=== PATIENT | female | born 1950 | race Caucasian/White ===

== ENCOUNTER 2017-04-26 07:16 | Outpatient (RCR) | payer MEDICARE, OTHER, SELFPAY ==
[2017-04-26 09:06] LABS: International Normalized Ratio 2.4; Prothrombin Time (Protime)PT. 24.8 SECONDS (11.7-14.9)
== END 2017-04-26 07:30 | disposition home or self-care (01) ==
LOC: LAB 07:16
PROVIDERS: Family Provider Nurse Practitioner; PCP Nurse Practitioner; Visit Provider Nurse Practitioner
DX: Z79.01 Long term (current) use of anticoagulants (principal)
CPT/HCPCS: 36415; 85610

== ENCOUNTER 2017-05-31 09:56 | Outpatient (RCR) | payer MEDICARE, OTHER, SELFPAY ==
[2017-05-10 08:11] LABS: Prothrombin Time (Protime)PT. 39.8 SECONDS (11.7-14.9)
[2017-05-10 08:30] LABS: International Normalized Ratio 4.3
[2017-05-17 14:02] LABS: International Normalized Ratio 1.9; Prothrombin Time (Protime)PT. 20.9 SECONDS (11.7-14.9)
[2017-05-24 07:52] LABS: Prothrombin Time (Protime)PT. 42.4 SECONDS (11.7-14.9)
[2017-05-24 09:57] LABS: International Normalized Ratio 4.7
[2017-05-31 11:30] LABS: International Normalized Ratio 3.7
== END 2017-05-31 15:00 | disposition home or self-care (01) ==
LOC: LAB 09:56
PROVIDERS: Family Provider Nurse Practitioner; PCP Nurse Practitioner; Visit Provider Nurse Practitioner
DX: Z79.01 Long term (current) use of anticoagulants (principal)
CPT/HCPCS: 36415; 85610

== ENCOUNTER 2017-06-28 10:28 | Outpatient (RCR) | payer MEDICARE, OTHER, SELFPAY ==
[2017-06-04 09:13] LABS: International Normalized Ratio 2.9; Prothrombin Time (Protime)PT. 30.5 SECONDS (11.7-14.9)
[2017-06-14 12:10] LABS: International Normalized Ratio 2.6; Prothrombin Time (Protime)PT. 27.9 SECONDS (11.7-14.9)
[2017-06-28 11:47] LABS: International Normalized Ratio 1.7; Prothrombin Time (Protime)PT. 19.9 SECONDS (11.7-14.9)
== END 2017-06-28 11:00 | disposition home or self-care (01) ==
LOC: LAB 10:28
PROVIDERS: Family Provider Nurse Practitioner; PCP Nurse Practitioner; Visit Provider Nurse Practitioner
DX: Z79.01 Long term (current) use of anticoagulants (principal)
CPT/HCPCS: 36415; 85610

== ENCOUNTER 2017-07-26 09:42 | Outpatient (RCR) | payer MEDICARE, OTHER, SELFPAY ==
[2017-07-05 11:27] LABS: International Normalized Ratio 1.8; Prothrombin Time (Protime)PT. 20.7 SECONDS (11.7-14.9)
[2017-07-12 09:17] LABS: Prothrombin Time (Protime)PT. 22.8 SECONDS (11.7-14.9)
[2017-07-19 11:21] LABS: International Normalized Ratio 1.9
[2017-07-26 10:22] LABS: International Normalized Ratio 1.9; Prothrombin Time (Protime)PT. 22.2 SECONDS (11.7-14.9)
== END 2017-07-26 10:00 | disposition home or self-care (01) ==
LOC: LAB 09:42
PROVIDERS: Family Provider Nurse Practitioner; PCP Nurse Practitioner; Visit Provider Nurse Practitioner
DX: Z79.01 Long term (current) use of anticoagulants (principal)
CPT/HCPCS: 36415; 85610

== ENCOUNTER 2017-08-16 07:28 | Outpatient (RCR) | payer MEDICARE, OTHER, SELFPAY ==
[2017-08-09 10:14] LABS: International Normalized Ratio 1.5
[2017-08-16 09:12] LABS: Prothrombin Time (Protime)PT. 22.9 SECONDS (11.7-14.9)
== END 2017-08-16 08:00 | disposition home or self-care (01) ==
LOC: LAB 07:28
PROVIDERS: Family Provider Nurse Practitioner; PCP Nurse Practitioner; Visit Provider Nurse Practitioner
DX: Z79.01 Long term (current) use of anticoagulants (principal)
CPT/HCPCS: 36415; 85610

== ENCOUNTER → 2017-09-08 08:29 | Outpatient (CLI) | payer MEDICARE, OTHER, SELFPAY ==
--- NOTE | 2017-09-08 08:29 | DT_ITS ---
This patient was seen during an EMR downtime September 06, 2017 - September 13, 2017. This patient may have a combination of paper and electronic documentation or all paper documentation. All documentation is viewable within the e-chart portion of [employer] for each patient visit.
[2017-09-13 14:39] LABS: International Normalized Ratio 1.3; Prothrombin Time (Protime)PT. 16.4 SECONDS (11.7-14.9)
== END ==
PROVIDERS: Family Provider Nurse Practitioner; PCP Nurse Practitioner; Visit Provider Nurse Practitioner
DX: Z79.01 Long term (current) use of anticoagulants (principal)
CPT/HCPCS: 36415; 85610

== ENCOUNTER 2017-09-23 07:07 | Outpatient (RCR) | payer MEDICARE, OTHER, SELFPAY ==
[2017-09-16 08:16] LABS: International Normalized Ratio 1.1
[2017-09-23 08:36] LABS: International Normalized Ratio 2.4; Prothrombin Time (Protime)PT. 26.2 SECONDS (11.7-14.9)
== END 2017-09-23 09:00 | disposition home or self-care (01) ==
LOC: LAB 07:07
PROVIDERS: Family Provider Nurse Practitioner; PCP Nurse Practitioner; Visit Provider Nurse Practitioner
DX: Z79.01 Long term (current) use of anticoagulants (principal)
CPT/HCPCS: 36415; 85610

== ENCOUNTER → 2017-10-07 07:07 | Outpatient (CLI) | payer MEDICARE, OTHER, SELFPAY ==
--- NOTE | 2017-10-07 07:26 | BI_ITS ---
MAMMOGRAPHY - BILATERAL SCREENING REASON FOR EXAM: Female, 67 years old. Routine annual screening examination. PERTINENT HISTORY: Non-contributory. TECHNIQUE: Digital bilateral breast efren (3D mammographic acquisition) in the CC and MLO projections. 2-D mediolateral oblique (MLO) and craniocaudad (CC) views of both breasts were obtained. CAD: Full Field Digital Mammography with Computer Added Detection was performed. COMPARISON: Comparison is made with prior study dated May 04, 2016 and December 12, 2014. FINDINGS: Breast Composition: There are scattered areas of fibroglandular density. There are no dominant masses or suspicious calcifications. Stable appearance of the mastoid calcifications in both breasts. No other significant abnormalities are identified. There has been no significant change since the prior study. BI/SCREENING MAMM (CAD), BILAT IMPRESSION: Stable bilateral screening mammogram. Yearly follow-up mammogram recommended. (A) ASSESSMENT CATEGORY: BIRADS Category 2: Benign. A letter regarding these results will be sent to the patient by the facility within 30 days. Approximately 10% of breast cancers are not detected by mammography. A normal mammogram should not delay biopsy of a clinically suspicious abnormality. [id number] Electronically Signed: Cole Coronado MD at 11:23 EDT Tel [phone], Service support ,
== END ==
PROVIDERS: Family Provider Nurse Practitioner; PCP Nurse Practitioner; Visit Provider Obstetrics & Gynecology
DX: Z12.31 Encounter for screening mammogram for malignant neoplasm of breast (principal); Z79.01 Long term (current) use of anticoagulants
CPT/HCPCS: 36415; 77063; 77067; 85610

== ENCOUNTER 2017-10-28 12:49 | Outpatient (RCR) | payer MEDICARE, OTHER, SELFPAY ==
[2017-10-07 07:16] LABS: International Normalized Ratio 2.8; Prothrombin Time (Protime)PT. 29.4 SECONDS (11.7-14.9)
[2017-10-14 08:40] LABS: International Normalized Ratio 2.9; Prothrombin Time (Protime)PT. 30.1 SECONDS (11.7-14.9)
[2017-10-21 09:09] LABS: International Normalized Ratio 2.9; Prothrombin Time (Protime)PT. 30.2 SECONDS (11.7-14.9)
[2017-10-28 13:29] LABS: International Normalized Ratio 2.7; Prothrombin Time (Protime)PT. 28.7 SECONDS (11.7-14.9)
== END 2017-10-28 14:00 | disposition home or self-care (01) ==
LOC: LAB 12:49
PROVIDERS: Family Provider Nurse Practitioner; PCP Nurse Practitioner; Visit Provider Nurse Practitioner
DX: Z79.01 Long term (current) use of anticoagulants (principal)
CPT/HCPCS: 36415; 85610

== ENCOUNTER 2017-11-15 07:24 | Outpatient (RCR) | payer MEDICARE, OTHER, SELFPAY ==
[2017-11-15 08:36] LABS: International Normalized Ratio 2.8; Prothrombin Time (Protime)PT. 29.3 SECONDS (11.7-14.9)
== END 2017-11-15 09:00 | disposition home or self-care (01) ==
LOC: LAB 07:24
PROVIDERS: Family Provider Nurse Practitioner; PCP Nurse Practitioner; Visit Provider Nurse Practitioner
DX: Z79.01 Long term (current) use of anticoagulants (principal)
CPT/HCPCS: 36415; 85610

== ENCOUNTER 2017-12-17 09:49 | Outpatient (RCR) | payer MEDICARE, OTHER, SELFPAY ==
[2017-12-14 14:45] LABS: Prothrombin Time (Protime)PT. 31.3 SECONDS (11.7-14.9)
[2017-12-17 11:02] LABS: Absolute Lymphocyte Count 1.26 X10^3/ul (0.83-4.51); Absolute Neutrophil Count 1.6 X10^3/uL (2.0-7.7); Basophil# 0.05 X10^3/uL; Basophil% 1.5 % (0-1); Eosinophil# 0.05 X10^3/uL; Eosinophils% 1.5 % (0-5); Hemoglobin 14.2 g/dl (12.0-15.0); Lymphocyte # 1.26 X10^3/ul (4.0); Lymphocyte % 38.2 % (19-41); Mean Corp Hgb Conc 34.6 g/gl (32-36); Mean Corpuscular Hgb 32.5 pg (27.0-32.0); Mean Corpuscular Volume 93.8 fL (81-99); Mean Platelet Vol. 10.5 fl (6.2-12.0); Monocyte# 0.33 X10^3/uL; Neutrophil # 1.61 X10^3/uL (2.7-7.7); Neutrophil % 48.8 % (47-70); POSITIVE COUNT NO; POSITIVE DIFFERENTIAL NO; POSITIVE MORPHOLOGY NO; Platelet Count 207 K/mm3 (150-450); RBC Distribution Width CV 12.5 % (11.6-14.6); RBC Distribution Width SD 42.8 fl (35.1-43.9); Red Blood Count 4.37 M/mm3 (4.2-5.4); White Blood Count 3.3 K/mm3 (4.4-11.0)
[2017-12-17 11:33] LABS: ALB/GLOB Ratio 1.4 RATIO (0.9-2.4); AST(SGOT) 19 U/L (15-37); Alanine Aminotransfer ALT/SGPT 28 U/L (13-56); Albumin, Serum 4.2 g/dL (3.2-5.0); Alkaline Phosphatase 77 U/L (45-117); Anion Gap 9 (5-15); BUN 22 mg/dL (7-18); BUN/Creat Ratio 27.6 RATIO (10-20); Calcium,Total 8.9 mg/dL (8.5-10.1); Chloride 104 mmol/L (98-107); EST Glomerular Filtration Rate 76 mL/min (>60); Est Glom Filt Rate - Afr Amer 92 mL/min (>60); Globulin 2.9 g/dL (2.2-4.2); Glucose 77 mg/dL (74-106); Protein, Total 7.1 g/dL (6.4-8.2); Sodium Level 141 mmol/L (136-145)
== END 2018-01-02 12:03 | disposition home or self-care (01) ==
LOC: LAB 09:49
PROVIDERS: Family Provider Nurse Practitioner; PCP Nurse Practitioner; Visit Provider Nurse Practitioner
DX: Z79.01 Long term (current) use of anticoagulants (principal); Z13.220 Encounter for screening for lipoid disorders
CPT/HCPCS: 36415; 80053; 85025; 85610

== ENCOUNTER → 2017-12-23 08:42 | Outpatient (CLI) | payer MEDICARE, OTHER, SELFPAY ==
--- NOTE | 2017-12-23 08:49 | BD_ITS ---
STUDY: DUAL ENERGY X-RAY ABSORPTIOMETRY / DXA REASON FOR EXAM: Female, 67 years old. The patient is postmenopausal. Loss of height. TECHNIQUE: Bone Mineral Density (BMD) measurements of lumbar spine and bilateral hips were obtained. COMPARISON: Comparison is made with prior study dated March 05, 2011. FINDINGS: Lumbar Spine (L1-L4): g/cm2 (0.937) / T-score (-2.0) / Z-score (-0.4) Findings are suggestive of osteopenia with a moderate fracture risk. Left Femur Total: g/cm2 (0.626) / T-score (-3.0) / Z-score (-1.7) Left Femoral Neck: g/cm2 (0.592) / T-score (-3.2) / Z-score (-1.6) Right Femur Total: g/cm2 (0.682) / T-score (-2.6) / Z-score (-1.2) Right Femoral Neck: g/cm2 (0.665) / T-score (-2.7) / Z-score (-1.1) The T-Scores on the most recent prior examination were: Lumbar Spine (L1-L4): There has been worsening of bone density since the previous examination. Left Femur Total: which represents a worsening of 13.3%. Right Femur Total: which represents a worsening of 7.6%. BD/Dexa Bone Density Study IMPRESSION: The patient is considered osteoporotic as outlined below according to World [employer] Organization (WHO) criteria with a high fracture risk. There has been worsening of bone density since the previous examination. Reference Information: The T-score is the number of standard deviations above or below the standard which is normal for young adults at their peak bone mineral density. The World Health Organization (WHO) interprets the T-scores as follows: Above -1 Normal bone density Between -1 and -2.5 Osteopenia Equal to / or below -2.5 Osteoporosis As a practical clinical guideline, osteopenia may be graded as follows: Mild -1 through -1.5 Moderate -1.6 through -2.0 Severe -2.1 through -2.4 The Z-score is the number of standard deviations above or below age-matched controls. A Z-score of less than -1.5 would be considered abnormal. References: 1. NIH Osteoporosis and Related Bone Diseases http://www.osteo.org 2. International Society for Clinical Densitometry http://www.iscd.org 3. National Osteoporosis Foundation http://www.nof.org Electronically Signed: Cole Coronado MD at 8:50 EDT Tel [phone], Service support ,
== END ==
PROVIDERS: Family Provider Nurse Practitioner; PCP Nurse Practitioner; Visit Provider Nurse Practitioner
DX: Z78.0 Asymptomatic menopausal state (principal); M81.0 Age-related osteoporosis without current pathological fracture
CPT/HCPCS: 77080

== ENCOUNTER → 2018-01-14 07:46 | Outpatient (CLI) | payer MEDICARE, OTHER, SELFPAY ==
[2018-01-14 08:54] LABS: Absolute Lymphocyte Count 1.49 X10^3/ul (0.83-4.51); Absolute Neutrophil Count 1.3 X10^3/uL (2.0-7.7); Basophil# 0.07 X10^3/uL; Basophil% 2.1 % (0-1); Eosinophil# 0.14 X10^3/uL; Eosinophils% 4.2 % (0-5); Hematocrit 40.1 % (37-47); Hemoglobin 14.2 g/dl (12.0-15.0); Lymphocyte # 1.49 X10^3/ul (4.0); Mean Corp Hgb Conc 35.4 g/gl (32-36); Mean Corpuscular Hgb 33.4 pg (27.0-32.0); Mean Corpuscular Volume 94.4 fL (81-99); Mean Platelet Vol. 10.7 fl (6.2-12.0); Monocyte# 0.33 X10^3/uL; Neutrophil # 1.28 X10^3/uL (2.7-7.7); Neutrophil % 38.7 % (47-70); Platelet Count 214 K/mm3 (150-450); RBC Distribution Width CV 12.3 % (11.6-14.6); RBC Distribution Width SD 41.8 fl (35.1-43.9); Red Blood Count 4.25 M/mm3 (4.2-5.4); White Blood Count 3.3 K/mm3 (4.4-11.0)
[2018-01-14 08:55] LABS: POSITIVE COUNT NO; POSITIVE DIFFERENTIAL NO; POSITIVE MORPHOLOGY NO
[2018-01-14 09:20] LABS: Bilirubin, Direct 0.18 mg/dL (0.00-0.30)
== END ==
PROVIDERS: Family Provider Nurse Practitioner; PCP Nurse Practitioner; Referring Provider Nurse Practitioner; Visit Provider Nurse Practitioner
DX: Z51.81 Encounter for therapeutic drug level monitoring (principal); Z79.01 Long term (current) use of anticoagulants; Z13.220 Encounter for screening for lipoid disorders
CPT/HCPCS: 36415; 82247; 82248; 85025

== ENCOUNTER 2018-02-01 07:17 | Outpatient (RCR) | payer MEDICARE, OTHER, SELFPAY ==
[2018-01-04 13:30] LABS: International Normalized Ratio 2.6; Prothrombin Time (Protime)PT. 27.6 SECONDS (11.7-14.9)
[2018-02-01 08:06] LABS: International Normalized Ratio 2.7; Prothrombin Time (Protime)PT. 28.9 SECONDS (11.7-14.9)
== END 2018-02-01 09:00 | disposition home or self-care (01) ==
LOC: LAB 07:17
PROVIDERS: Family Provider Nurse Practitioner; PCP Nurse Practitioner; Referring Provider Nurse Practitioner; Visit Provider Nurse Practitioner
DX: Z79.01 Long term (current) use of anticoagulants (principal)
CPT/HCPCS: 36415; 85610

== ENCOUNTER → 2018-02-07 14:10 | Outpatient (CLI) | payer MEDICARE, OTHER, SELFPAY ==
[2018-02-09 16:08] LABS: PROEL- A/G Ratio 1.6 (0.7-1.7); PROEL- Albumin 3.8 g/dL (2.9-4.4); PROEL- Alpha-1 Globulin 0.3 g/dL (0.0-0.4); PROEL- Alpha-2 Globulin 0.6 g/dL (0.4-1.0); PROEL- Beta Globulin 1.1 g/dL (0.7-1.3); PROEL- Gamma Globulin 0.5 g/dL (0.4-1.8); PROEL- Globulin, Total 2.4 g/dL (2.2-3.9); PROEL- TOTAL PROTEIN 6.2 g/dL (6.0-8.5); PROELU- Albumin, Urine 39.4 % (.); PROELU- Alpha-1-Globulin,Ur 2.3 % (.); PROELU- Alpha-2-Globulin,Ur 9.5 % (.); PROELU- Beta Globulin, Ur 33.2 % (.); PROELU- Gamma Globulin, Ur 15.5 % (.); Total Protein, Ur 8.3 mg/dL (Not Estab.)
[2018-02-10 12:13] LABS: ANTINUCLEAR ANTIBODIES DIRECT Negative (Negative)
== END ==
PROVIDERS: Family Provider Nurse Practitioner; PCP Nurse Practitioner; Referring Provider Nurse Practitioner; Visit Provider Nurse Practitioner
DX: D72.819 Decreased white blood cell count, unspecified (principal)
CPT/HCPCS: 36415; 84165; 84166; 86038

== ENCOUNTER → 2018-02-15 13:43 | Outpatient (CLI) | payer MEDICARE, OTHER, SELFPAY ==
--- NOTE | 2018-02-15 13:46 | VDLE_ITS ---
Reason For Study: pain RIGHT LEFT CFV is compressible, spontaneous, phasic, GSV is normal. competent and demonstrates normal CFV is compressible, spontaneous, phasic, augmentation. competent, and demonstrates normal augmentation. FV is compressible, spontaneous, phasic, competent and demonstrates normal augmentation. POP V is compressible, spontaneous, phasic, competent and demonstrates normal augmentation. T/P Trunk is compressible. PTV is compressible. LT PerV is compressible. <> Interpretation Summary Deep veins of the left lower extremity are patent and compressible segmentally. There is no evidence of left lower extremity deep vein thrombosis. Valvular competence appears intact within the proximal deep venous system on the left . The left greater saphenous vein appears patent and compressible segmentally. Ordering Physician: KRISTIAN Cruz Performed By: Nigel Luu RVT
== END ==
PROVIDERS: Family Provider Nurse Practitioner; PCP Nurse Practitioner; Referring Provider Nurse Practitioner Gerontology; Visit Provider Nurse Practitioner Gerontology
DX: M79.605 Pain in left leg (principal)
CPT/HCPCS: 93971

== ENCOUNTER 2018-03-02 11:32 | Outpatient (RCR) | payer MEDICARE, OTHER, SELFPAY ==
[2018-02-22 15:37] LABS: Prothrombin Time (Protime)PT. 31.4 SECONDS (11.7-14.9)
[2018-03-02 13:49] LABS: International Normalized Ratio 2.7; Prothrombin Time (Protime)PT. 29.2 SECONDS (11.7-14.9)
== END 2018-03-04 11:10 | disposition home or self-care (01) ==
LOC: LAB 11:32
PROVIDERS: Family Provider Nurse Practitioner; PCP Nurse Practitioner; Referring Provider Nurse Practitioner; Visit Provider Nurse Practitioner
DX: Z79.01 Long term (current) use of anticoagulants (principal)
CPT/HCPCS: 36415; 85610

== ENCOUNTER 2018-03-23 10:27 | Outpatient (RCR) | payer MEDICARE, OTHER, SELFPAY ==
[2018-03-23 12:03] LABS: International Normalized Ratio 2.9; Prothrombin Time (Protime)PT. 30.5 SECONDS (11.7-14.9)
--- OUTSIDE RECORDS SUMMARY | 2018-06-24 14:16 | XMS RPT_ITS | Continuity of Care Document ---
:1950 Author Organization [facility] Address [facility] [address] [place] [address] Phone Care Team Providers Name Role Phone Minalcuca SAMSON Selam Latif Unavailable Dr. Meseret Santana MD Unavailable Aida Keen LPN Unavailable Unavailable Paola Lara Unavailable Unavailable Es Huggins Unavailable Unavailable Sigrid Mobley Unavailable Unavailable Unavailable Unavailable Problems Name Dates Details Abortions/Miscarriages Comments: 1. Status: Active Annual Medicare Phyiscal WITHOUT abnormal findings (Renamed from Encounter for general adult medical examination without abnormal findings) (Z00.00, V70.9) Status: Active Anticoagulated on Coumadin (Z51.81, V58.83) Status: Active BMI 22.0-22.9, adult (Z68.22, V85.1) Status: Active Cough (R05, 786.2) Comments: improved with aerosol Status: Active Deliveries (Parity) Comments: 3. Status: Active Encounter for annual general medical examination with abnormal findings in adult (Z00.01, V70.0) Status: Active Encounter for Medicare annual wellness exam (Z00.00, V70.0) Status: Active Encounter for screening for lipid disorder (Z13.220, V77.91) Status: Active FAMILY HISTORY OF ISCHEMIC HEART DISEASE (Z82.49, V17.3) Status: Active History of DVT (deep vein thrombosis) (Z86.718, V12.51) Status: Active Left leg pain (M79.605, 729.5) Comments: DVT vs Nerve related ? Status: Active Leukopenia (D72.819, 288.50) Comments: will follow q 3months and referral if needed Status: Active Liver cyst (K76.89, 573.8) Comments: from CT on 08-19-15 recommend US in [address] Status: Active jail (current) use of anticoagulants (Renamed from author current use of anticoagulant therapy) (Z79.01, V58.61) Status: Active Nonsmoker (Z78.9, V49.89) Status: Active Osteoporosis (M81.0, 733.00) Comments: doesnt want followup density Status: Active Postmenopausal (Renamed from Postmenopausal status) (Z78.0, V49.81) Comments: Has been on fosamax in past, self Dced , consider Prolia based on results Status: Active PostMenopausal Bleeding (Renamed from Hemorrhage, postmenopausal) (N95.0, 627.1) Comments: had blood on pelvic exam with fluid in endometrial canal/ovarian cyts Status: Active Pregnancies () Comments: 4. Status: Active Screening for breast cancer (Z12.39, V76.10) Status: Active Unspecified Diagnosis Status: Active Unspecified Diagnosis Status: Active Medications Name Dates Details Acyclovir 400 MG Oral Tablet 2 (two) Tablet daily for 0 days Quantity: 180 {Tablet} Refills: 3 Ordered:13-Sep-2017 Selam Blair CNP, CNP Brenda Start : 13-Sep-2017 Active Calcium 1200 0804-1510 MG-UNIT Oral Tablet Chewable daily (3373-0113 MG-UNIT) Active Cinnamon 500 MG Oral Capsule 2caps qd (500 MG) Active Coumadin 1 MG Oral Tablet 1 (one) Tablet qd as directed for 90 days Quantity: 90 {Tablet} Refills: 3 Ordered:14-Sep-2017 Selam Blair CNP, CNP, Mary E Start : 14-Sep-2017 Active Coumadin 5 MG Oral Tablet 1 (one) Tablet Tablet qd as directed for 0 days Quantity: 90 {Tablet} Refills: 3 Ordered:13-Dec-2017 Selam Blair CNP, CNP Brenda Start : 13-Dec-2017 Active DICYCLOMINE HCL, 20MG (Oral Tablet) 1 tab Tablet q 4hrs, prn for 0 days Quantity: 30 {Tablet} Refills: 1 Ordered:18-Dec-2014 So Bailey Start : 08-Aug-2013 Active Lasix 20 MG Oral Tablet 1 tab Tablet qd, prn for swelling for 0 days Quantity: 30 {Tablet} Refills: 1 Ordered:17-Dec-2017 Johnnie PRIMARY CARE MD, Selam Taveras PRIMARY CARE MD, Selam Latif Start : 17-Dec-2017 Active Latanoprost 0.005 % Ophthalmic Solution one drop to both eyes qhs (0.005 %) Active MILK THISTLE, 500MG (Oral Capsule) 2 (two) Capsule qd for 0 days Quantity: 60 {Capsule} Refills: 0 Ordered:17-Sep-2014 So Bailey Start : 14-Oct-2012 Active PROBIOTIC (Oral Capsule) 2 (two) Capsule qd for 0 days Quantity: 60 {Capsule} Refills: 0 Ordered:21-Oct-2012 Fatimah Mccray MD Start : 14-Oct-2012 Active VITAMIN B COMPLEX (Oral Tablet) 1 Tablet qd for 0 days Quantity: 30 {Tablet} Refills: 0 Ordered:18-Dec-2014 So Bailey Start : 14-Oct-2012 Active VITAMIN C, 1000MG (Oral Tablet) 3 (three) Tablet qd for 0 days Quantity: 90 {Tablet} Refills: 0 Ordered:21-Oct-2012 Fatimah Mccray MD Start : 14-Oct-2012 Active Comments:Buffered VITAMIN D3, 2000UNIT (Oral Capsule) 1 cap qd (2000 UNIT) Active ASPIRIN, 325MG (Oral Tablet) 1 tab qd (325 MG) Inactive Augmentin 875-125 MG Oral Tablet 1 (one) Tablet bid for 14 days Quantity: 28 {Tablet} Refills: 0 Ordered:13-Oct-2016 JENNIFER Pearce Start : 13-Oct-2016 End : 27-Oct-2016 Inactive Bleph-10 10 % Ophthalmic Solution uad Metric Drop 2 drops q 4 hours for 10 days to affected eye for 10 days Refills: 0 Ordered:16-Oct-2016 Fatimah Mccray MD Start : 16-Oct-2016 End : 26-Oct-2016 Inactive CEFTIN, 500MG (Oral Tablet) 1 Tablet bid for 0 days Quantity: 60 {Tablet} Refills: 0 Ordered:12-Apr-2013 Patrice Smallwood Start : 14-Oct-2012 End : 12-Apr-2013 Inactive CIPROFLOXACIN HCL, 500MG (Oral Tablet) 1 (one) Tablet bid [id number] for 10 days Quantity: 20 {Tablet} Refills: 0 Ordered:15-Sep-2013 Sherin Baileynifer Start : 15-Sep-2013 End : 25-Sep-2013 Inactive CLARITHROMYCIN, 500MG (Oral Tablet) 1 (one) Tablet qd for 0 days Quantity: 30 {Tablet} Refills: 0 Ordered:12-Apr-2013 Patrice Smallwood Start : 07-Feb-2013 End : 12-Apr-2013 Inactive Cod Liver Oil Oral Capsule 3-4 Capsule qd for 0 days Quantity: 90 {Capsule} Refills: 0 Ordered:15-Dec-2016 Selam Blair CNP, CNP Brenda Start : 14-Oct-2012 End : 15-Dec-2016 Inactive DOXYCYCLINE HYCLATE, 100MG (Oral Capsule) 1 Capsule bid for 0 days Quantity: 42 {Capsule} Refills: 0 Ordered:14-Oct-2012 JENNIFER Pearce Start : 30-Aug-2012 End : 14-Oct-2012 Inactive Fosamax 70 MG Oral Tablet 1 tab Tablet once a week for 30 days Quantity: 4 {Tablet} Refills: 3 Ordered:15-Dec-2016 Selam Blair CNP, CNP Brenda Start : 04-Jul-2012 End : 15-Dec-2016 Inactive Hydrocodone-Acetaminophen 5-325 MG Oral Tablet 1 (one) Tablet Tablet 1-2 every 6 hours prn for 0 days Quantity: 30 {Tablet} Refills: 0 Ordered:15-Dec-2016 Selam Blair CNP, CNP Brenda Start : 05-Mar-2014 End : 15-Dec-2016 Inactive Comments:thirty Magnesium Oxide 400 MG Oral Tablet 4 Tablet qd for 30 days Quantity: 90 {Tablet} Refills: 0 Ordered:29-Jun-2016 Selam Blair CNP, CNP Brenda Start : 29-Jun-2016 End : 29-Jul-2016 Inactive Mobic 15 MG Oral Tablet 1 (one) Tablet Tablet daily for 0 days Quantity: 14 {Tablet} Refills: 0 Ordered:15-Dec-2016 Selam Blair CNP, CNP Brenda Start : 05-Mar-2014 End : 15-Dec-2016 Inactive MULTIVITAMIN (PO Tab) 1 (one) daily Inactive PredniSONE 10 MG Oral Tablet 1 (one) Tablet bid for 2 days Quantity: 4 {Tablet} Refills: 0 Ordered:02-Jun-2017 Johnnie SAMSON, Selam ACEnatalya SAMSON, Selam Latif Start : 02-Jun-2017 End : 04-Jun-2017 Inactive Comments:with food ProAir HFA 108 (90 Base) MCG/ACT Inhalation Aerosol Solution 2 (two) Puff Puff tid prn for 0 days Quantity: 1 {Inhaler} Refills: 0 Ordered:14-Feb-2018 Sigrid Mobley Start : 02-Jun-2017 End : 14-Feb-2018 Inactive TAURINE, 500MG (Oral Capsule) 2 caps qd (500 MG) Inactive Tessalon Perles 100 MG Oral Capsule 1 (one) Capsule tid prn for cough for 0 days Quantity: 30 {Capsule} Refills: 1 Ordered:14-Feb-2018 Sigrid Mobley Start : 02-Jun-2017 End : 14-Feb-2018 Inactive Zithromax Z-Fantasma 250 MG Oral Tablet 1 (one) Tablet TAD for 0 days Quantity: 1 {Package} Refills: 0 Ordered:07-Jun-2017 Sigrid Mobley Start : 02-Jun-2017 End : 07-Jun-2017 Inactive Baking Soda 1 teaspoon in water qd End : 02-Jun-2017 Discontinued BENTONITE (Powder) 1 tbsp bid End : 08-Aug-2013 Discontinued CALCIUM, 500MG (Oral Tablet) 1 tab tid (500 MG) End : 18-Dec-2014 Discontinued FISH OIL CONCENTRATE, 1000MG (Oral Capsule) 3 caps qd (1000 MG) End : 21-Oct-2012 Discontinued SYMBICORT, 160-4.5MCG/ACT (Inhalation Aerosol) 1 puff po Aerosol bid for 30 days Quantity: 1 {Aerosol} Refills: 3 Ordered:21-Oct-2012 Fast DO, Helen A Start : 21-Oct-2012 End : 21-Oct-2012 Discontinued Teasel Root Extract 2-3 drops qd End : 17-Sep-2014 Discontinued TINDAMAX, 500MG (Oral Tablet) 2 tabs 3 days a week (500 MG) End : 17-Sep-2014 Discontinued VALTREX, 1GM (Oral Tablet) 1 tab bid, prn for cold sores (1 GM) End : 08-Aug-2013 Discontinued Allergies and Adverse Reactions Name Dates Details No Known Drug Allergies (Allergy) Onset: 11-Mar-2012 Status: Active Past Medical History Name Dates Details ACUTE CYSTITIS (N30.00, 595.0) Status: Resolved as of 13-Feb-2014 Allergic rhinitis (J30.9, 477.9) Status: Inactive as of 15-Dec-2016 Asthma (J45.909, 493.90) Status: Inactive as of 15-Dec-2016 Bartonella infection (088.0) Status: Resolved as of 17-Sep-2014 Benign Essential Hypertension (I10, 401.1) Status: Inactive as of 15-Dec-2016 BMI 21.0-21.9, adult (Z68.21, V85.1) Status: Inactive as of 02-Jun-2017 BMI 21.0-21.9, adult (Z68.21, V85.1) Status: Inactive as of 15-Dec-2016 BMI 21.0-21.9, adult (Z68.21, V85.1) Status: Inactive as of 14-Feb-2018 BMI 22.0-22.9, adult (Z68.22, V85.1) Status: Inactive as of 17-Dec-2017 Body mass index (BMI) of 20 to 24 (V85.1) Status: Inactive as of 15-Dec-2016 Breast cancer screening (Z12.39, V76.10) Status: Inactive as of 05-Mar-2014 Bronchospasm (J98.01, 519.11) Status: Inactive as of 17-Dec-2017 bullseye rash- tick bite /concern for lyme disease Status: Inactive as of 05-Mar-2014 Chest tightness (R07.89, 786.59) Status: Inactive as of 17-Dec-2017 Cough (R05, 786.2) Status: Inactive as of 15-Dec-2016 Cough (R05, 786.2) Status: Inactive as of 17-Dec-2017 DVT (deep venous thrombosis) (I82.409, 453.40) Status: Inactive as of 05-Mar-2014 DVT (deep venous thrombosis) (I82.409, 453.40) Comments: hold 3 days prior Status: Resolved as of 15-Dec-2016 Edema Comments: off and on puffiness Status: Inactive as of 15-Dec-2016 Fatigue (R53.83, 780.79) Status: Resolved as of 13-Feb-2014 Flu-like symptoms (R68.89, 780.99) Status: Inactive as of 17-Dec-2017 Herpes Simplex Comments: cold sores Status: Inactive as of 17-Dec-2017 Hyperlipidemia (E78.5, 272.4) Status: Resolved as of 15-Dec-2016 Insect bite (919.4) Status: Resolved as of 21-Oct-2012 Irritable Bowel Syndrome (K58.9, 564.1) Comments: chronic stable-continue present regimen, uses miralax prnSaw Dr Arzola and Mehnaz Status: Resolved as of 15-Dec-2016 Need for prophylactic vaccination and inoculation against influenza (Z23, V04.81) Status: Inactive as of 05-Mar-2014 Osteopenia (M85.80, 733.90) Status: Inactive as of 11-Mar-2012 [place]o [place] Ol[place]o eye (H10.029, 372.03) Status: Inactive as of 15-Dec-2016 Post-nasal drainage (R09.82, 473.9) Status: Inactive as of 17-Dec-2017 Pre-operative examination (Z01.818, V72.84) Status: Inactive as of 12-Nov-2014 screening Status: Inactive as of 05-Mar-2014 Shoulder pain, left (M25.512, 719.41) Comments: not able to take cortisone injection. willhave to do pain meds PT and shortterm nsaids. aware of risk of bleeding ulcer Status: Inactive as of 15-Dec-2016 Sinusitis (J32.9, 473.9) Status: Inactive as of 15-Dec-2016 Urinary frequency (R35.0, 788.41) Status: Resolved as of 21-Oct-2012 Vaccine for ymoigzeamv-jimohgl-trxwpjqtl with poliomyelitis (Z23, V06.3) Status: Inactive as of 21-Oct-2012 Procedures Procedure Dates Details Appendectomy Completed D&C Completed Comments: 2014- shriner Tonsillectomy Completed Tubal Ligation Completed Date Value Details 16-Feb-2018 Venous Duplex Lower Extremity Result: Comments: See Note; NOTES: [facility] Cardiovascular Services [address] [place] [address] Venous Duplex US, Unilateral 02/15/18 1350 MR#: [id number] Acct: [id number] Name: YAHAIRA ENG Rep #: [id number] : 1950 67 From: Tony Valentino MD Attending Dr: KRISTIAN Cruz Status: REG CLI Ordering Dr: Sigrid MobleyC Date: 02/15/18 Location: [facility] Sex: F C Admitte d: Reason For Study: pain RIGHT LEFT CFV is compressible, spontaneous, phasic, GSV is normal. competent and demonstrates normal CFV is compressible, spontaneous, phasic, augmentation. competent, an d demonstrates normal augmentation. FV is compressible, spontaneous, phasic, competent and demonstrates normal augmentation. POP V is compressible, spontaneous, phasic, competent and demonstrates normal augmentation. T/P Trunk is compressible. PTV is compressible. LT PerV is compressible. <> Interpretation Summary Deep veins of the left lower extremity are patent and compressible segm entally. There is no evidence of left lower extremity deep vein thrombosis. Valvular competence appears intact within the proximal deep venous system on the left . The left greater saphenous vein appear s patent and compressible segmentally. Ordering Physician: KRISTIAN Cruz Performed By: Nigel Mcguire RVT 02/16/18812 Date Tony Valentino MD CC: Selam Blair NP; POLICY OFFICER-C Annie Mobley Date Dictated: 02/15/18 1350 Date Transcribed: 02/16/18812 Saturation Equipment Operator: Signed 23-Dec-2017 Dexa Bone Density Study Result: Comments: See Note; NOTES: [facility] Imaging Services [address] [place] [address] Dexa Bone Density Study MR#: [id number] Acct: [id number] Name: YAHAIRA BRYANT Rep #: [id number] : 1950 F 67 From: Cole Coronado MD PCP: Selam Blair NP Status: REG CLI Study: Dexa Bone Density Study Date of Exam: 12/23/17 Exam# [id number] Ordering Dr: Selam Blair STUDY: DUAL ENERGY X-RAY ABSORPTIOMETRY / DXA REASON FOR EXAM: Female, 67 years old. The patient is postmenopausal. Loss of height. TECHNIQUE: Bone Mineral Density (BMD) measurements of lumbar spine and bilateral hips were obtained. COMPARISON: Comparison is made with prior study dated March 05, 2011. FINDINGS: Lumbar Spine (L1-L4): g/cm2 (0.937) / T-score (-2.0) / Z-sco re (-0.4) Findings are suggestive of osteopenia with a moderate fracture risk. Left Femur Total: g/cm2 (0.626) / T-score (-3.0) / Z-score (-1.7) Left Femoral Neck: g/cm2 (0.592) / T-score (-3.2) / Z-sc ore (-1.6) Right Femur Total: g/cm2 (0.682) / T-score (-2.6) / Z-score (-1.2) Right Femoral Neck: g/cm2 (0.665) / T-score (-2.7) / Z-score (-1.1) The T- Scores on the most recent prior examination were: Lumbar Spine (L1-L4): There has been worsening of bone density since the previous examination. Left Femur Total: which represents a worsening of 13.3%. Right Femur Total: which represents a worsening of 7.6%. BD/Dexa Bone Density Study IMPRESSION: The patient is considered osteoporotic as outlined below according to World Yossi Organization ( WHO) criteria with a high fracture risk. There has been worsening of bone density since the previous examination. Reference Information: The T-score is the number o f standard deviations above or below the standard which is normal for young adults at their peak bone mineral density. The World Health Organization (WHO) interprets the T-scores as follows: Above -1 N ormal bone density Between -1 and -2.5 Osteopenia Equal to / or below -2.5 Osteoporosis As a practical clinical guideline, osteopenia may be graded as follows: Mild - 1 through -1.5 Moderate -1.6 throug h -2.0 Severe -2.1 through -2.4 The Z-score is the number of standard deviations above or below age-matched controls. A Z-score of less than -1.5 would be considered abnormal. References: 1. NIH Osteo porosis and Related Bone Diseases http://www.osteo.org 2. International Society for Clinical Densitometry http://www.iscd.org 3. National Osteoporosis Foundation http://www.nof.org Electronically Joycelyn d: Cole Coronado MD at 8:50 EDT Tel [phone], Service support , CC: Selam Blair NP Saturation Equipment Operator: Signed 07-Oct-2017 SCREENING MAMM (CAD), BILAT Result: Comments: See Note; NOTES: [facility] Imaging Services [address] [place] [address] SCREENING MAMM (CAD), BILAT MR#: [id number] Acct: [id number] Name: YAHAIRA BRYANT Rep #: [id number] : 1950 F 67 From: Cole Coronado MD PCP: Selam Blair NP Status: [facility] CL Study: SCREENING MAMM (CAD), BILAT Date of Exam: 10/07/17 Exam# [id number] Ordering Dr: Aliza Santana MD MAMMOGRAPHY - BILATERAL SCREENING REASON FOR EXAM: Female, 67 years old. Routine annual screening examination. PERTINENT HISTORY: Non-contributory. TECHNIQUE: Digital bilateral breast efren (3D mammo graphic acquisition) in the CC and MLO projections. 2-D mediolateral oblique (MLO) and craniocaudad (CC) views of both breasts were obtained. CAD: Full Field Digital Mammography with Computer Added Dete ction was performed. COMPARISON: Comparison is made with prior study dated May 04, 2016 and December 12, 2014. FINDINGS: Breast Composition: There are scattered areas of fibroglandular density. There are no dominant masses or suspicious calcifications. Stable appearance of the mastoid calcifications in both breasts. No other significant abnormalities are rach ntified. There has been no significant change since the prior study. BI/SCREENING MAMM (CAD), BILAT IMPRESSION: Stable bilateral screening mammog cindy. Yearly follow-up mammogram recommended. (A) ASSESSMENT CATEGORY: BIRADS Category 2: Benign. A letter regarding these results will be sent to the patient by the facility within 30 days. Approximately 10% of breast cancers are not detected by mammography. A normal mammogram should not delay biopsy of a clinically suspicious abnormality. [id number] Electronically Signed: Cole Coronado MD at 11:23 EDT Tel [phone], Service support , CC: Selam Blair NP; Aliza Santana MD Saturation Equipment Operator: Signed 23-Sep-2017 Downtime Report Result: Comments: See Note; NOTES: [facility] Medical Records Department [address] [place] [address] Downtime Report MR#: [id number] Acct: [id number] Name: YAHAIRA BRYANT R Rep #: [id number] : 1950 67 From: Jered Kumar PCP: Selam Blair NP Status: REG CLI This patient was seen during an EMR downtime September 06, 2017 - September 13, 2017. This patient may have a combination of p aper and electronic documentation or all paper documentation. All documentation is viewable within the e-chart portion of [employer] for each patient visit. 16-Dec-2016 Liver Result: Comments: See Note; NOTES: [facility] Imaging Services [address] [place] [address] Liver MR#: [id number] Acct: [id number] Name: YAHAIRA BRYANT R Rep #: [id number] : 1950 F 66 From: Jose Mcghee MD PCP: Selam Blair Status: REG CLI Study: Liver Date of Exam: 12/16/16 Exam# [id number] Ordering Dr: Selam Blair STUDY: ABDOMINAL ULTRASOUND - RIGHT UPPER QUADRANT R KEV FOR VISIT: Female, 66 years old. Liver cysts noted on prior CT. TECHNIQUE: Ultrasound evaluation of the right upper quadrant was performed with real-time and static carlos-scale imaging. TECHNICAL QUALITY: Adequate. COMPARISON: None. FINDINGS: Liver: The liver measures 11.5 cm. There is normal echogenicity of the liver. The bile ducts are within normal limi ts. There is hepatic color flow. The direction of portal flow is hepatopetal. There is no demonstrated mass lesion. Subcentimeter cyst reported on prior CT study of 08/19/2015 are not identified on this ultrasound. Gallbladder: Normal distended gallbladder. The gallbladder wall measures 2.1 mm. There is a negative sonographic Danielle's sign. There is no pericholecystic fluid. There is a gallbladder cayden yp measuring 5 x 6 x 5 mm. Common Bile Duct (C.B.D.): The common bile duct measures 3.4 mm. Pancreas: Normal size of the head, body and tail of the pancreas. There is normal echogenicity of the pancre as. There is no demonstrated pancreatic mass or cyst. Right Kidney: Normal size of the right kidney. The right kidney measures 10.5 x 4.5 x 5.3 cm. Normal renal cortex. The right cortex measures 1.5 cm . There is no demonstrated renal mass or cyst. There is no right hydronephrosis. There are 2 highly echogenic foci of the upper pole of the right kidney each measuring 3 mm, suggestive of nephrolithiasi s. US/Liver IMPRESSION: The liver appears within normal limits. Subcentimeter cysts reported on prior CT study are not appreciated on this ultras onographic study. 5 x 6 x 5 mm gallbladder polyp. Nonobstructing right nephrolithiasis. Electronically Signed: Jose Mcghee MD at 16:28 EDT , Service support [phone], CC: Selam Blair Saturation Equipment Operator: Signed 21-Dec-2014 Aorta Result: Comments: See Note; NOTES: [facility] Imaging Services [address] [place] [address] Ultrasound Report MR#: [id number] Acct: [id number] Name: YAHAIRA BRYANT Rep #: [id number] : 1950 F 64 From: Cole Coronado MD PCP: Helen Barnes DO Status: REG CLI Study: Aorta Date of Exam: 12/21/14 Exam# [id number] Ordering Dr: Helen Barnes DO PROCEDURES: ULTRASOUN D AORTA REASON FOR EXAM: Female, 64 years old. Screening for abdominal aortic aneurysm. TECHNIQUE: Ultrasound evaluation of the aorta was performed with real-time and static carlos-scale imaging. COMPARISON: None. FINDINGS: There is no elongation or tortuosity of the abdominal aorta. Aorta measures: Proximal 2.5 cm. Middle 1.5 cm. Distal 1.3 cm. Aorta m easure transversely: Proximal 2.1 cm. Middle 1.4 cm. Distal 1.3 cm. Right iliac artery measures: 0.8 cm. Right iliac artery measure transversely: 0.7 cm. Left iliac artery measures: 0.8 cm. Left iliac artery measure transversely: 0.7 cm. There is no demonstrated aneurysm.. IMPRESSION: Normal abdominal aorta. Electronically Signed: Cole Coronado MD at 9:45 EDT Tel [phone], Service support [phone], CC: Helen Barnes DO Saturation Equipment Operator: Signed 12-Dec-2014 Bilat Scrn Digital AND CAD Result: Comments: See Note; NOTES: [facility] Imaging Services [address] [place] [address] Breast Imaging Report MR#: [id number] Acct: [id number] Name: YAHAIRA BRYANT Rep # : [id number] : 1950 F 64 From: Gabino South MD PCP: Helen Barnes DO Status: REG CLI Study: Aba Bravo Digital AND CAD Date of Exam: 12/12/14 Exam# [id number] Ordering Dr: Helen Barnes DO M AMMOGRAPHY - BILATERAL SCREENING REASON FOR EXAM: Female, 64 years old. Routine annual screening examination. PERTINENT HISTORY: NO FM HX , RT MOLE MARKED TECHNIQUE: Digital examination. Mediolat eral oblique (MLO) and craniocaudad (CC) views of both breasts were obtained. CAD: CAD was performed on this study. COMPARISON: October 11, 2013 and September 21, 2012 FINDINGS: Breast Composition: The breasts are heterogeneously dense, which may obscure small masses. There are no dominant masses or suspicious calcifications. No other significant abnormalities a re identified. IMPRESSION: Stable bilateral screening mammogram. Yearly follow-up recommended. (A) ASSESSMENT CATEGORY: B IRADS Category 0: Incomplete. Need additional imaging evaluation. A letter regarding these results will be sent to the patient by the facility within 30 days. Approximately 10% of breast cancers are not detected by mammography. A normal mammogram should not delay biopsy of a clinically suspicious abnormality. Electronically Signed: Amadou South MD at 14:51 EDT Tel , Service support [phone], CC: Helen Barnes DO Saturation Equipment Operator: Signed 12-Dec-2014 Bilat Scrn Digital AND CAD Result: Comments: See Note; NOTES: [facility] Imaging Services [address] [place] [address] Breast Imaging Report MR#: [id number] Acct: [id number] Name: YAHAIRA BRYANT Rep # : [id number] : 1950 F 64 From: Gabino South MD PCP: Helen Barnes DO Status: REG CLI Study: Bilat Scrn Digital AND CAD Date of Exam: 12/12/14 Exam# [id number] Ordering Dr: Helen Barnes DO A DDENDUM by Cole Coronado MD on 12/17/14 at 1003 ADDENDUM This is an addendum report for BI -RADS category. BI-RADS category 2. Electronically Signed: Cole Coronado MD at 10:03 EDT Tel [phone], Service support [phone], 12/17/14 1003 D ate cc: Helen Barnes DO * Signed MAMMOGRAPHY - BILATERAL SCREENING REASON FOR EXAM: Female, 64 years old. Routine annual screening examination. PERTINENT HISTORY: NO FM HX , RT MO LE MARKED TECHNIQUE: Digital examination. Mediolateral oblique (MLO) and craniocaudad (CC) views of both breasts were obtained. CAD: CAD was performed on this study. COMPARISON: October 11, 2013 and 2012 FINDINGS: Breast Composition: The breasts are heterogeneously dense, which may obscure small masses. There are no dominant masses or suspicious ca lcifications. No other significant abnormalities are identified. IMPRESSION: Stable bilateral screening mammogram. Yearly follow-up recommended. (A) ASSESSMENT CATEGORY: BIRADS Category 0: Incomplete. Need additional imaging evaluation. A letter regarding these results will be sent to the patient by the facility withi n 30 days. Approximately 10% of breast cancers are not detected by mammography. A normal mammogram should not delay biopsy of a clinically suspicious abnormality. Electronically Signed: Amadou graham MD at 14:51 EDT Tel , Service support [phone], CC: Helen Barnes DO Saturation Equipment Operator: Signed 03-Dec-2014 Operative Report Result: Comments: See Note; NOTES: [facility] Medical Records Department [address] [place] [address] Operative Report MR#: [id number] Acct: [id number] Name: YAHAIRA BRYANT Rep #: [id number] : 1950 64 From: Aliza Santana MD PCP: Helen Barnes DO Status: [facility] DATE OF SERVICE: 11/26/2014 DATE OF SERVICE: November 26, 2014 PREOPERATIVE DIAGNOSES: Fluid in th e endometrial canal, postmenopausal bleeding. POSTOPERATIVE DIAGNOSES: Fluid in the endometrial canal, postmenopausal bleeding. PROCEDURE: D and C and diagnostic hysteroscopy. SURGEON: Aliza garcia M.D. ESTIMATED BLOOD LOSS: Minimal. FLUIDS: Lactated Ringer's. MEDICATIONS: Include cefotetan IV preoperatively along with 1% lidocaine placed locally to the cervix, 10 mL total. ANEST HESIA: MAC anesthetic. URINE: Straight catheter, 50 mL. INDICATION: The patient is a 64-year-old white female who presents from her primary care physician's office where previous in the year an ultrasound had been performed revealing simple ovarian cyst, but also fluid within the endometrial canal. A repeat ultrasound due to outdating of the previous ultrasound in our office once again revea led the suspicion of some endometrial fluid and the resolution of that simple cyst. The patient was recommended to undergo D and C, hysteroscopy for not only release of that tissue, but evaluation. T he patient was without food and drink from midnight the night before and presented on the day of surgery to the preoperative area. She was taken to the OR suite where a MAC anesthetic was placed and o nce found to be adequate, she was placed in dorsal lithotomy position via the Johnny stirrups, prepped and draped in normal sterile fashion. Weighted speculum to the vagina. Anterior lip of the cervix was grasped and elevated with a single-tooth tenaculum, 10 mL of 1% lidocaine placed to the 4 quadrants of the cervix. Then, the patient tolerated well. There was cervical stenosis noted and with grad ual dilation of that endocervical canal, release of that fluid was noted as dilation was occurring. Once adequate dilation was noted, uterus was sounded to approximately 7-8 cm in the anterior positi on. A 3 mm hysteroscope was placed into the endometrial cavity with very scant amount of tissue being noted,. Attempted curettage of the entire endometrial canal and cavity occurred, but once again ve ry little tissue was expressed as very little existed beyond that fluid that had been released during the dilation period of the cervical os. The hysteroscope placed into the endometrial cavity once a gain after curettage and notation of release of soft tissue was made. All instruments were removed from the vagina. Sponge, instrument, and needle counts correct x2. The patient awakened in stable co ndition, taken to recovery room, to be discharged home with followup in the office in 1-2 weeks' time. Aliza Santana MD T: NTS JOB: [id number] 12/03/14 1321 <Electronically signed by An jamison Santana MD> Date Aliza Santana MD Cosigner Signature (If Indicated): Date CC: Aleyda Santana MD; Helen Barnes DO Date Dictated: 11/29/14918 Date Transcribed: 11/29/14918 Saturation Equipment Operator: Signed 26-Nov-2014 Discharge Instruction Result: Comments: See Note; NOTES: [facility] Medical Records Department [address] [place] [address] Instructions for Home/Discharge Instructions 11/26/14 1200 MR#: [id number] ct: [id number] Name: YAHAIRA BRYANT Rep #: [id number] : 1950 64 From: Aliza Santana MD PCP: Helen Barnes DO Status: REG [place] Discharge Diet: No Restrictions Discharge Activity: Return t o Normal Activity, May Shower, May Take a Tub Bath - in 2 weeks. May shower in (days): 0 - now Weight Bearing Status: Full weight bearing Lifting Restrictions: none Cleanse incision/area with: Soap AND Water Allergies/Adverse Reactions: Allergies No Known Allergies Allergy (Verified 11/21/14 13:09) Medications to take at Discharge Acyclovir [Zovirax] 800 mg PO DAILY 11/21/14 Ascorbic Ac id [Vitamin C] 3,000 mg PO QHS 11/21/14 Cholecalciferol (Vitamin D3) [Vitamin D3] 10,000 unit PO DAILY 11/21/14 L.acidoph AND Paracasei,B.lactis [Probiotic] 1 each PO DAILY 11/21/14 RX: Magnesium 400 mg PO BID 11/21/14 Taurine [José Miguel Taurine] 1,000 mg PO QHS 11/21/14 Warfarin [Coumadin (PBKC)] 7 mg PO QODAY 11/21/14 Warfarin [Coumadin (PBKC)] 8 mg PO QODAY 11/21/14 Please Follow Up With: Aliza Mobley When: 1-2 weeks postop 11/26/14 1204 <Electronically signed by Aliza Santana MD> Date Aliza Santana MD CC: Helen Barnes DO 26-Nov-2014 Operative Report Result: Comments: See Note; NOTES: [facility] Medical Records Department [address] [facility] [place] [place] [address] Operative Report 11/26/14 1159 MR#: [id number] Acct: [id number] Name: GURJIT CERVANTESYAHAIRA R Rep #: [id number] : 1950 64 From: Aliza Santana MD PCP: Helen Barnes DO Status: REG [facility] Y Location: [place] [address] Operative Report (Blank) Date of Procedure: 11/26/14 Preop: Fl uid of the endometrial canal, postmenopausal bleeding Postop: Same Procedure: D and C, diagnostic hysteroscopy Surgeon: Esther EBL: minimal Fluids: Lactated ringers Meds: Cefotetan + 1% lid ocaine locally - 10cc Anesthesia: MAC Urine: Straight cath 50cc 11/26/14 1200 <Electronically signed by Aliza Santana MD> Date A sujatha Santana MD CC: Aliza Santana MD; Helen Barnes DO Signed 05-Nov-2014 Spirometry (23511) Comments: good effort aand curve mild obstruction Result: 06-Jun-2014 Transvaginal Non- Result: Comments: See Note; NOTES: [facility] Imaging Services [address] [place] [address] Ultrasound Report MR#: [id number] Acct: [id number] Name: YAHAIRA BRYANT Rep #: [id number] : 1950 F 63 From: Telly Cruz DO PCP: Helen Barnes DO Status: REG CLI Study: Transvaginal Non- Date of Exam: 06/06/14 Exam# [id number] Ordering Dr: Izzy Becerra STUDY: ULTRASOUND TRANSVAGINAL CLINICAL: Female, 63 years old. Post menopausal bleeding. TECHNIQUE: Transvaginal COMPARISON: None. FINDINGS: Normal uterine size measuring 6.0 x 5.1 x 2.5 cm in maximal craniocaudal dimension. 2 calcified fibroids are identified the larger measuring 1.1 x 0.8 x 0.4 cm with a smaller measuring 6 mm in maximal dimens ion. Normal endometrial thickness measuring 3 mm. There are no endometrial masses are identified. There is some minimal fluid in the endometrial canal Normal uterine cervix. Normal right ovary, measuring 2.4 x 1.8 x 1.2 cm. Echotexture is within normal limits. 3 mm diameter echogenic density associated with the right ovary may represent a small calcification. Normal left ovary, measuring 2 .2 x 1.7 x 1.1 cm. 1 cm diameter cyst is identified. There is no free fluid in the pelvis. IMPRESSION: Normal-sized uterus with 2 small calcified fibroids iden tified in the anterior myometrium. 1 cm diameter left ovarian cyst. 3 mm diameter calcification is identified associated with the right ovary. There is minimal fluid in the endometrial canal. E lectronically Signed: Jean Paul Flynn DO at 13:34 EST , Service support [phone], CC: Helen Barnes DO; Izzy Becerra MD Saturation Equipment Operator: Signed 06-Jun-2014 Pelvic (Non ) Result: Comments: See Note; NOTES: [facility] Imaging Services [address] [place] [address] Ultrasound Report MR#: [id number] Acct: [id number] Name: YAHAIRA BRYANT Rep #: [id number] : 1950 F 63 From: Telly Cruz DO PCP: Heeln Barnes DO Status: REG CLI Study: Pelvic (Non ) Date of Exam: 06/06/14 Exam# [id number] Ordering Dr: Izzy Becerra MD STUDY: ULTRASOUND TRANSVAGINAL CLINICAL: Female, 63 years old. Post menopausal bleeding. TECHNIQUE: Transvaginal COMPARISON: None. FINDINGS: Normal uter ine size measuring 6.0 x 5.1 x 2.5 cm in maximal craniocaudal dimension. 2 calcified fibroids are identified the larger measuring 1.1 x 0.8 x 0.4 cm with a smaller measuring 6 mm in maximal dimension. Normal endometrial thickness measuring 3 mm. There are no endometrial masses are identified. There is some minimal fluid in the endometrial canal Normal uterine cervix. Normal right ovary, ayaka uring 2.4 x 1.8 x 1.2 cm. Echotexture is within normal limits. 3 mm diameter echogenic density associated with the right ovary may represent a small calcification. Normal left ovary, measuring 2.2 x 1.7 x 1.1 cm. 1 cm diameter cyst is identified. There is no free fluid in the pelvis. IMPRESSION: Normal-sized uterus with 2 small calcified fibroids identifi ed in the anterior myometrium. 1 cm diameter left ovarian cyst. 3 mm diameter calcification is identified associated with the right ovary. There is minimal fluid in the endometrial canal. Elect ronically Signed: Jean Paul Flynn DO at 13:34 EST , Service support [phone], CC: Helen Barnes DO; Izzy Becerra MD Saturation Equipment Operator: Signed 11-Oct-2013 [employer]a [employer] CAD Result: Comments: See Note; NOTES: [facility] Imaging Services [address] [place] [address] Breast Imaging Report MR#: [id number] Acct: [id number] Name: YAHAIRA BRYANT Rep #: [id number] : 1950 F 63 From: Bradly Lr MD PCP: Helen Barnes DO Status: REG CLI Exam# [id number] Ordering Dr: Helen Barnes DO MAMMOGRAPHY - BILATERAL SCREENING REASON FOR EXAM: Female, 63 years old. Routine annual screening examination. PERTINENT HISTORY: Non- contributory. TECHNIQUE: Digital examination. Mediolateral oblique (MLO) and craniocaudad (CC) views of both breasts were obtained. CAD: CAD was performed on this study. COMPARISON: September 21, 2012, September 21, 2011 FINDINGS: The breast composition is composed of scattered areas of fi broglandular densities ranging from 25% to 50% of the total breast volume. There are stable benign calcifications bilaterally. There are no dominant masses or suspicious calcifications. No other s ignificant abnormalities are identified. IMPRESSION: Stable bilateral screening mammogram. Yearly follow-up recommended. (A) ASSESSMENT CATEGORY: BIRADS Category 2: Benign finding(s). A letter regarding these results will be sent to the patient by the facility within 30 days. Approximately 10% of breast cancers are not detected by mammography. A normal mammogram should not delay biopsy of a clinically suspicious abnormality. Electronically Signed: Bradly Lr MD at 10:37 EDT , Servic e support [phone], CC: Helen Barnes DO Saturation Equipment Operator: Signed Family History Unknown Family Member Name Dates Details Brother 1 Comments: age 60- liver disease- hepatitis c - etoh Status: Active Father Comments: - age 90- heart attack- copd- Status: Active Mother Comments: age 57- thyroid cancer- leukemia took her life Status: Active Sister 1 Comments: bipolar Status: Active Social History Name Dates Details Alcohol Use: Occasional alcohol use. Status: Active Caffeine Use Status: Active No Drug Use Status: Active Tobacco use: Never smoker. Status: Active Smoking Status Name Dates Details Never smoker Vital Signs Date Test Result Details :23 Temperature 97.8 f Comments: Method: Temporal Pulse 87 /min Comments: Pattern: Regular Respiration Rate 16 /min Comments: Pattern: Unlabored O2 SAT 98 % Comments: Room air BP Systolic 106 mm[Hg] Comments: Patient Position: Sitting; Cuff Location: Left Arm; Cuff Size: Standard BP Diastolic 62 mm[Hg] Comments: Patient Position: Sitting; Cuff Location: Left Arm; Cuff Size: Standard Weight 119.375 lb Height 61.5 in Body Mass Index Calculated 22.19 kg/m2 Body Surface Area Calculated 1.53 m2 :56 Temperature 97.7 f Comments: Method: Temporal Pulse 88 /min Comments: Pattern: Regular Respiration Rate 16 /min Comments: Pattern: Unlabored O2 SAT 98 % Comments: Room air BP Systolic 110 mm[Hg] Comments: Patient Position: Sitting; Cuff Location: Left Arm; Cuff Size: Standard BP Diastolic 70 mm[Hg] Comments: Patient Position: Sitting; Cuff Location: Left Arm; Cuff Size: Standard Weight 119.375 lb Height 61.5 in Body Mass Index Calculated 22.19 kg/m2 Body Surface Area Calculated 1.53 m2 :25 Temperature 97.4 f Comments: Method: Temporal Pulse 90 /min Comments: Pattern: Regular Respiration Rate 16 /min Comments: Pattern: Unlabored O2 SAT 97 % Comments: Room air BP Systolic 112 mm[Hg] Comments: Patient Position: Sitting; Cuff Location: Left Arm; Cuff Size: Standard BP Diastolic 62 mm[Hg] Comments: Patient Position: Sitting; Cuff Location: Left Arm; Cuff Size: Standard Weight 115.125 lb Height 61.5 in Body Mass Index Calculated 21.4 kg/m2 Body Surface Area Calculated 1.5 m2 [id number] Temperature 97.8 f Comments: Method: Temporal Pulse 68 /min Comments: Pattern: Regular Respiration Rate 16 /min Comments: Pattern: Unlabored O2 SAT 98 % Comments: Room air BP Systolic 126 mm[Hg] Comments: Patient Position: Sitting; Cuff Location: Left Arm; Cuff Size: Standard BP Diastolic 84 mm[Hg] Comments: Patient Position: Sitting; Cuff Location: Left Arm; Cuff Size: Standard Weight 118.6 lb Height 61.5 in Body Mass Index Calculated 22.05 kg/m2 Body Surface Area Calculated 1.52 m2 :26 Temperature 99 f Comments: Method: Temporal Pulse 94 /min Comments: Pattern: Regular Respiration Rate 16 /min Comments: Pattern: Unlabored O2 SAT 98 % Comments: Room air BP Systolic 126 mm[Hg] Comments: Patient Position: Sitting; Cuff Location: Left Arm; Cuff Size: Standard BP Diastolic 84 mm[Hg] Comments: Patient Position: Sitting; Cuff Location: Left Arm; Cuff Size: Standard Weight 118.6 lb Height 61.5 in Body Mass Index Calculated 22.05 kg/m2 Body Surface Area Calculated 1.52 m2 :20 Comments: Hearing wnl, vision screening done yearly with Dr. Crawford;glaucoma screening included. Temperature 97 f Pulse 67 /min Comments: Pattern: Regular Respiration Rate 16 /min Comments: Pattern: Unlabored O2 SAT 98 % Comments: Room air BP Systolic 108 mm[Hg] Comments: Patient Position: Sitting; Cuff Location: Left Arm; Cuff Size: Standard BP Diastolic 64 mm[Hg] Comments: Patient Position: Sitting; Cuff Location: Left Arm; Cuff Size: Standard Weight 114 lb Height 61.5 in Body Mass Index Calculated 21.19 kg/m2 Body Surface Area Calculated 1.5 m2 :22 Temperature 97.6 f Pulse 94 /min Comments: Pattern: Regular Respiration Rate 18 /min Comments: Pattern: Unlabored O2 SAT 96 % Comments: Room air BP Systolic 130 mm[Hg] Comments: Patient Position: Sitting; Cuff Location: Left Arm; Cuff Size: Standard BP Diastolic 80 mm[Hg] Comments: Patient Position: Sitting; Cuff Location: Left Arm; Cuff Size: Standard Weight 116 lb Height 61.5 in Body Mass Index Calculated 21.56 kg/m2 Body Surface Area Calculated 1.51 m2 :54 Temperature 97.7 f Comments: Method: Tympanic Pulse 83 /min Comments: Pattern: Regular Respiration Rate 18 /min Comments: Pattern: Unlabored O2 SAT 97 % Comments: Room air BP Systolic 122 mm[Hg] Comments: Patient Position: Sitting; Cuff Location: Left Arm; Cuff Size: Standard BP Diastolic 60 mm[Hg] Comments: Patient Position: Sitting; Cuff Location: Left Arm; Cuff Size: Standard Weight 114 lb Height 61.5 in Body Mass Index Calculated 21.19 kg/m2 Body Surface Area Calculated 1.5 m2 :42 Temperature 97.2 f Pulse 79 /min Comments: Pattern: Regular Respiration Rate 18 /min Comments: Pattern: Unlabored O2 SAT 98 % Comments: Room air BP Systolic 124 mm[Hg] Comments: Patient Position: Sitting; Cuff Location: Left Arm; Cuff Size: Standard BP Diastolic 82 mm[Hg] Comments: Patient Position: Sitting; Cuff Location: Left Arm; Cuff Size: Standard Weight 110 lb Height 61.5 in Body Mass Index Calculated 20.45 kg/m2 Body Surface Area Calculated 1.47 m2 :30 BP Systolic 140 mm[Hg] Comments: Patient Position: Sitting; Cuff Location: Left Arm; Cuff Size: Standard BP Diastolic 98 mm[Hg] Comments: Patient Position: Sitting; Cuff Location: Left Arm; Cuff Size: Standard :40 Temperature 97.8 f Comments: Method: Temporal Pulse 64 /min Comments: Pattern: Regular Respiration Rate 16 /min Comments: Pattern: Unlabored BP Systolic 134 mm[Hg] Comments: Patient Position: Sitting; Cuff Location: Left Arm; Cuff Size: Standard BP Diastolic 90 mm[Hg] Comments: Patient Position: Sitting; Cuff Location: Left Arm; Cuff Size: Standard Weight 110 lb Height 61.5 in Body Mass Index Calculated 20.45 kg/m2 Body Surface Area Calculated 1.47 m2 :10 Temperature 97.3 f Comments: Method: Temporal Pulse 74 /min Comments: Pattern: Regular Respiration Rate 16 /min Comments: Pattern: Unlabored BP Systolic 126 mm[Hg] Comments: Patient Position: Sitting; Cuff Location: Left Arm; Cuff Size: Standard BP Diastolic 70 mm[Hg] Comments: Patient Position: Sitting; Cuff Location: Left Arm; Cuff Size: Standard Weight 112 lb Height 61.5 in Body Mass Index Calculated 20.82 kg/m2 Body Surface Area Calculated 1.49 m2 :08 Temperature 97.2 f Comments: Method: Oral Pulse 76 /min Comments: Pattern: Regular Respiration Rate 16 /min Comments: Pattern: Unlabored BP Systolic 120 mm[Hg] Comments: Patient Position: Sitting; Cuff Location: Left Arm; Cuff Size: Standard BP Diastolic 76 mm[Hg] Comments: Patient Position: Sitting; Cuff Location: Left Arm; Cuff Size: Standard Weight 110 lb Height 61.5 in Body Mass Index Calculated 20.45 kg/m2 Body Surface Area Calculated 1.47 m2 :23 Temperature 97.8 f Comments: Method: Temporal Pulse 76 /min Comments: Pattern: Regular Respiration Rate 18 /min Comments: Pattern: Unlabored BP Systolic 118 mm[Hg] Comments: Patient Position: Sitting; Cuff Location: Left Arm; Cuff Size: Standard BP Diastolic 76 mm[Hg] Comments: Patient Position: Sitting; Cuff Location: Left Arm; Cuff Size: Standard Weight 108 lb Height 61.5 in Body Mass Index Calculated 20.08 kg/m2 Body Surface Area Calculated 1.46 m2 :12 Temperature 97.9 f Pulse 70 /min Comments: Pattern: Regular Respiration Rate 16 /min Comments: Pattern: Unlabored BP Systolic 112 mm[Hg] Comments: Patient Position: Sitting; Cuff Location: Left Arm; Cuff Size: Standard BP Diastolic 76 mm[Hg] Comments: Patient Position: Sitting; Cuff Location: Left Arm; Cuff Size: Standard Weight 108 lb Height 61.5 in Body Mass Index Calculated 20.08 kg/m2 Body Surface Area Calculated 1.46 m2 :12 Temperature 96.4 f Pulse 82 /min Comments: Pattern: Regular Respiration Rate 16 /min Comments: Pattern: Unlabored BP Systolic 104 mm[Hg] Comments: Patient Position: Sitting; Cuff Location: Left Arm; Cuff Size: Standard BP Diastolic 70 mm[Hg] Comments: Patient Position: Sitting; Cuff Location: Left Arm; Cuff Size: Standard Weight 110 lb Height 61.5 in Body Mass Index Calculated 20.45 kg/m2 Body Surface Area Calculated 1.47 m2 :31 Temperature 96.9 f Pulse 72 /min Comments: Pattern: Regular Respiration Rate 16 /min Comments: Pattern: Unlabored BP Systolic 102 mm[Hg] Comments: Patient Position: Sitting; Cuff Location: Left Arm; Cuff Size: Standard BP Diastolic 70 mm[Hg] Comments: Patient Position: Sitting; Cuff Location: Left Arm; Cuff Size: Standard Weight 110 lb Height 61.5 in Body Mass Index Calculated 20.45 kg/m2 Body Surface Area Calculated 1.47 m2 :23 Temperature 97.3 f Pulse 74 /min Comments: Pattern: Regular Respiration Rate 16 /min Comments: Pattern: Unlabored BP Systolic 140 mm[Hg] Comments: Patient Position: Sitting; Cuff Location: Left Arm; Cuff Size: Standard BP Diastolic 78 mm[Hg] Comments: Patient Position: Sitting; Cuff Location: Left Arm; Cuff Size: Standard Weight 119 lb Height 61.5 in Body Mass Index Calculated 22.12 kg/m2 Body Surface Area Calculated 1.52 m2 :22 Temperature 97 f Pulse 96 /min Comments: Pattern: Regular Respiration Rate 16 /min Comments: Pattern: Unlabored BP Systolic 140 mm[Hg] Comments: Patient Position: Sitting; Cuff Location: Left Arm; Cuff Size: Standard BP Diastolic 82 mm[Hg] Comments: Patient Position: Sitting; Cuff Location: Left Arm; Cuff Size: Standard Weight 129 lb Height 61.5 in Body Mass Index Calculated 23.98 kg/m2 Body Surface Area Calculated 1.58 m2 :40 Temperature 97.3 f Pulse 76 /min Comments: Pattern: Regular Respiration Rate 16 /min Comments: Pattern: Unlabored BP Systolic 142 mm[Hg] Comments: Patient Position: Sitting; Cuff Location: Left Arm; Cuff Size: Standard BP Diastolic 66 mm[Hg] Comments: Patient Position: Sitting; Cuff Location: Left Arm; Cuff Size: Standard Weight 129 lb Height 61.5 in Body Mass Index Calculated 23.98 kg/m2 Body Surface Area Calculated 1.58 m2 :58 Temperature 97 f Pulse 72 /min Comments: Pattern: Regular Respiration Rate 16 /min Comments: Pattern: Unlabored BP Systolic 110 mm[Hg] Comments: Patient Position: Sitting; Cuff Location: Left Arm; Cuff Size: Large BP Diastolic 64 mm[Hg] Comments: Patient Position: Sitting; Cuff Location: Left Arm; Cuff Size: Large Weight 126 lb Height 61.5 in Body Mass Index Calculated 23.42 kg/m2 Body Surface Area Calculated 1.56 m2 Results Date Description Value Details :41 Prothrombin Time w/INR Comments: [facility] [id number] [place], [address] INR 3.0 (Normal) PROTIME 31.4 s (Abnormal) Range: 11.7-14.9 [id number] ANTINUCLEAR ANTIBODIES DIRECT Comments: [facility] (refer to report for specific site)refer to report for address and phone number YURIY-DIRECT Negative (Normal) Comments: Performed at: [address] [id number] Director: Jairo Sears PhD, Phone: [phone] [id number] Protein Electro.Ur-Random Comments: [facility] (refer to report for specific site)refer to report for address and phone number NOTE Comment (Normal) Comments: Protein electrophoresis scan will follow via computer,mail, or organisation and methods analyst delivery.Performed at: [address] [id number] Director: Jairo Sears PhD, Phone: [phone] M-SPIKE,U % (Normal) Comments: NOT BSERVED GAMMA GLOB,U 15.5 % (Normal) BETA GLOB,U 33.2 % (Normal) NMPTU-1-LDUF,U 9.5 % (Normal) KKUOK-6-DOCF,U 2.3 % (Normal) ALBUMIN,UR 39.4 % (Normal) PROTEIN,UR 8.3 mg/dL (Normal) :17 Protein Electroph, S Comments: [facility] (refer to report for specific site)refer to report for address and phone number NOTE: Comment (Normal) Comments: The SPE pattern appears essentially unremarkable. Evidenceof monoclonal protein is not apparent.Performed at: [address] [id number] Director: Jairo Sears PhD, Phone: [phone] INTERPRETATION Comment (Normal) Comments: Protein electrophoresis scan will follow via computer,mail, or organisation and methods analyst delivery. A/G RATIO 1.6 (Normal) Range: 0.7-1.7 GLOBULIN, TOTAL 2.4 g/dL (Normal) Range: 2.2-3.9 M-SPIKE g/dL (Normal) Comments: NOT OBSERVED GAMMA GLOBULIN 0.5 g/dL (Normal) Range: 0.4-1.8 BETA GLOBULIN 1.1 g/dL (Normal) Range: 0.7-1.3 ALPHA-2 GLOBUL 0.6 g/dL (Normal) Range: 0.4-1.0 ALPHA-1 GLOBUL 0.3 g/dL (Normal) Range: 0.0-0.4 ALBUMIN 3.8 g/dL (Normal) Range: 2.9-4.4 PROTEIN,TOTAL 6.2 g/dL (Normal) Range: 6.0-8.5 :18 Prothrombin Time w/INR Comments: [facility] [id number] [place], [place], [address] INR 2.7 (Normal) PROTIME 28.9 s (Abnormal) Range: 11.7-14.9 :58 Bilirubin, Direct Comments: [address] [place], [place], [id number] D BILI 0.18 mg/dL (Normal) Range: 0.00-0.30 :58 CBC W/Diff, Automated Comments: [address] [place], [place], [address] Absolute Lymph 1.49 {X10_3/ul} (Normal) Range: 0.83-4.51 Absolute Neut 1.3 {X10_3/uL} (Abnormal) Range: 2.0-7.7 IM GRAN % 0.000 % (Normal) Range: 0.0-0.9 Comments: IG% - Immature Granulocytes (promyelocytes, myelocytes andmetamyelocytes) > 1% indicates that a LEFT SHIFT is Present. BASO% 2.1 % (Abnormal) Range: 0-1 EO% 4.2 % (Normal) Range: 0-5 MONO% 10.0 % (Normal) Range: 0-10 LY% 45.0 % (Abnormal) Range: 19-41 NEUT% 38.7 % (Abnormal) Range: 47-70 MPV 10.7 fL (Normal) Range: 6.2-12.0 PLT 214 K/mm3 (Normal) Range: 150-450 RDW SD 41.8 fL (Normal) Range: 35.1-43.9 RDW CV 12.3 % (Normal) Range: 11.6-14.6 MCHC 35.4 {g/gl} (Normal) Range: 32-36 MCH 33.4 pg (Abnormal) Range: 27.0-32.0 MCV 94.4 fL (Normal) Range: 81-99 HCT 40.1 % (Normal) Range: 37-47 HGB 14.2 g/dL (Normal) Range: 12.0-15.0 RBC 4.25 {M/mm3} (Normal) Range: 4.2-5.4 WBC 3.3 K/mm3 (Abnormal) Range: 4.4-11.0 :58 Total Bilirubin Comments: [facility] [address] [place], [place], [address] T BILI 0.80 mg/dL (Normal) Range: 0.20-1.00 [id number]-Val-546193:14 Prothrombin Time w/INR Comments: [facility] [address] [place], [place], [phone] INR 2.6 (Normal) PROTIME 27.6 s (Abnormal) Range: 11.7-14.9 09-Clw-060347:01 CBC W/Diff, Automated Comments: [facility] [address] [facility] [address] [place], [place], [id number] Absolute Lymph 1.26 {X10_3/ul} (Normal) Range: 0.83-4.51 Absolute Neut 1.6 {X10_3/uL} (Abnormal) Range: 2.0-7.7 IM GRAN % 0.000 % (Normal) Range: 0.0-0.9 Comments: IG% - Immature Granulocytes (promyelocytes, myelocytes andmetamyelocytes) > 1% indicates that a LEFT SHIFT is Present. BASO% 1.5 % (Abnormal) Range: 0-1 EO% 1.5 % (Normal) Range: 0-5 MONO% 10.0 % (Normal) Range: 0-10 LY% 38.2 % (Normal) Range: 19-41 NEUT% 48.8 % (Normal) Range: 47-70 MPV 10.5 fL (Normal) Range: 6.2-12.0 PLT 207 K/mm3 (Normal) Range: 150-450 RDW SD 42.8 fL (Normal) Range: 35.1-43.9 RDW CV 12.5 % (Normal) Range: 11.6-14.6 MCHC 34.6 {g/gl} (Normal) Range: 32-36 MCH 32.5 pg (Abnormal) Range: 27.0-32.0 MCV 93.8 fL (Normal) Range: 81-99 HCT 41.0 % (Normal) Range: 37-47 HGB 14.2 g/dL (Normal) Range: 12.0-15.0 RBC 4.37 {M/mm3} (Normal) Range: 4.2-5.4 WBC 3.3 K/mm3 (Abnormal) Range: 4.4-11.0 33-Guf-317726:01 Comprehensive Metabolic Profil Comments: [facility] [address] [place], [address] GAP 9 (Normal) Range: 5-15 CO2 28.0 mmol/L (Normal) Range: 21.0-32.0 CL 104 mmol/L (Normal) Range: 98-107 K 4.0 mmol/L (Normal) Range: 3.5-5.1 NA 141 mmol/L (Normal) Range: 136-145 T BILI 1.30 mg/dL (Abnormal) Range: 0.20-1.00 ALT 28 U/L (Normal) Range: 13-56 ALK P 77 U/L (Normal) Range: 45-117 AST 19 U/L (Normal) Range: 15-37 CA 8.9 mg/dL (Normal) Range: 8.5-10.1 A/G 1.4 {RATIO} (Normal) Range: 0.9-2.4 GLOB 2.9 g/dL (Normal) Range: 2.2-4.2 ALB 4.2 g/dL (Normal) Range: 3.2-5.0 T PROT 7.1 g/dL (Normal) Range: 6.4-8.2 BUN/CRE 27.6 {RATIO} (Abnormal) Range: 10-20 EST GFR - AA 92 mL/min (Normal) Comments: GFR Calc EST GFR 76 mL/min (Normal) Comments: Non- GFR Calc CREAT,SERUM 0.80 mg/dL (Normal) Range: 0.55-1.02 Comments: The validity of the calculated GFR AND GFRAA in patients over70 years has not been determined. Clinical correlation isessential. BUN 22 mg/dL (Abnormal) Range: 7-18 GLU 77 mg/dL (Normal) Range: 74-106 Comments: Please note revised GLUCOSE reference range ymwcetmcx14/02/2018. 07-Pir-[id number]:15 Prothrombin Time w/INR Comments: [facility] [address] [place], [address] INR 3.0 (Normal) PROTIME 31.3 s (Abnormal) Range: 11.7-14.9 :26 Prothrombin Time w/INR Comments: [facility] [address] [place], [address] INR 2.8 (Normal) PROTIME 29.3 s (Abnormal) Range: 11.7-14.9 90-Fsl-946517:50 Prothrombin Time w/INR Comments: [facility] [address] [place], [address] INR 2.7 (Normal) PROTIME 28.7 s (Abnormal) Range: 11.7-14.9 :35 Prothrombin Time w/INR Comments: [facility] [address] [place], [address] INR 2.9 (Normal) PROTIME 30.2 s (Abnormal) Range: 11.7-14.9 :44 Prothrombin Time w/INR Comments: [facility] [address] [place], [address] INR 2.9 (Normal) PROTIME 30.1 s (Abnormal) Range: 11.7-14.9 :55 Prothrombin Time w/INR Comments: [facility] [address] [place], [address] INR 2.8 (Normal) PROTIME 29.4 s (Abnormal) Range: 11.7-14.9 :10 Prothrombin Time w/INR Comments: [facility] [address] [place], [address] INR 2.4 (Normal) PROTIME 26.2 s (Abnormal) Range: 11.7-14.9 :09 Prothrombin Time w/INR Comments: [facility] [address] [place], [address] INR 1.1 (Normal) PROTIME 14.0 s (Normal) Range: 11.7-14.9 :29 Prothrombin Time w/INR Comments: RESULT(S) PREVIOUSLY REPORTED ON MANUAL REQUISITION DURINGDOWNTIME.[facility] [address] [place], [address] INR 1.3 (Normal) PROTIME 16.4 s (Abnormal) Range: 11.7-14.9 :30 Prothrombin Time w/INR Comments: [facility] [address] [place], [address] INR 2.0 (Normal) PROTIME 22.9 s (Abnormal) Range: 11.7-14.9 :01 Prothrombin Time w/INR Comments: [facility] [address] [place], [address] INR 1.5 (Normal) PROTIME 18.0 s (Abnormal) Range: 11.7-14.9 :46 Prothrombin Time w/INR Comments: [facility] [address] [place], [address] INR 1.9 (Normal) PROTIME 22.2 s (Abnormal) Range: 11.7-14.9 17-Ymb-244285:25 Prothrombin Time w/INR Comments: [facility] [address] [place], [address] INR 1.9 (Normal) PROTIME 22.0 s (Abnormal) Range: 11.7-14.9 :59 Prothrombin Time w/INR Comments: [facility] [address] [place], [address] INR 2.0 (Normal) PROTIME 22.8 s (Abnormal) Range: 11.7-14.9 :58 Prothrombin Time w/INR Comments: [facility] [address] [place], [place], [phone] INR 1.8 (Normal) PROTIME 20.7 s (Abnormal) Range: 11.7-14.9 86-Xdu-230578:31 Prothrombin Time w/INR Comments: [facility] [place] [address] [place], [place], [address](248) INR 1.7 (Normal) PROTIME 19.9 s (Abnormal) Range: 11.7-14.9 78-Mqa-327090:20 Prothrombin Time w/INR Comments: [facility] [address] [place], [place], [phone] INR 2.6 (Normal) PROTIME 27.9 s (Abnormal) Range: 11.7-14.9 :39 Prothrombin Time w/INR Comments: [facility] [place] [address] [place], [place], [address] INR 2.9 (Normal) PROTIME 30.5 s (Abnormal) Range: 11.7-14.9 96-Ymg-659026:03 Rapid Flu (59622 x 2) Influenza A Ag neg (Normal) 05-Xjg-811191:00 Prothrombin Time w/INR Comments: [address] [place], [place], [id number] ; See pt message INR 3.7 (Abnormal) Comments: CRITICAL VALUE VERIFIED. CALLED TO KOLTON RN05/31/17 1130 Nii Lind.RESULTS READ BACK BY SAME. PROTIME 35.0 s (Abnormal) Range: 11.7-14.9 :21 Prothrombin Time w/INR Comments: [facility] [place] [address] [place], [place], [phone] INR 4.7 (Abnormal) Comments: CRITICAL VALUE VERIFIED. CALLED TO GEOVANNI AT [facility]05/24/17 0956 Violeta Noble.RESULTS READ BACK BY SAME . PROTIME 42.4 s (Abnormal) Range: 11.7-14.9 52-Qvn-548074:27 Prothrombin Time w/INR Comments: [facility] [address] [place], [address] INR 1.9 (Normal) PROTIME 20.9 s (Abnormal) Range: 11.7-14.9 :42 Prothrombin Time w/INR Comments: [facility] [address] [place], [address] INR 4.3 (Abnormal) Comments: CRITICAL VALUE VERIFIED. CALLED TO 05/10/17 0830 Josue Velazquez.RESULTS READ BACK BY . PROTIME 39.8 s (Abnormal) Range: 11.7-14.9 :18 Prothrombin Time w/INR Comments: [place] [address] [place], [address] INR 2.4 (Normal) PROTIME 24.8 s (Abnormal) Range: 11.7-14.9 :18 Prothrombin Time w/INR Comments: [facility] [address] [place], [address] INR 2.4 (Normal) PROTIME 25.2 s (Abnormal) Range: 11.7-14.9 87-Pbw-897493:00 Prothrombin Time w/INR Comments: [facility] [address] [place], [address] INR 2.5 (Normal) PROTIME 25.8 s (Abnormal) Range: 11.7-14.9 :32 Prothrombin Time w/INR Comments: [facility] [address] [place], [address] INR 2.1 (Normal) PROTIME 22.7 s (Abnormal) Range: 11.7-14.9 :23 Prothrombin Time w/INR Comments: [facility] [address] [place], [address] INR 2.3 (Normal) PROTIME 24.6 s (Abnormal) Range: 11.7-14.9 :14 Prothrombin Time w/INR Comments: [facility] [address] [place], [address] INR 2.0 (Normal) PROTIME 21.9 s (Abnormal) Range: 11.7-14.9 :18 Prothrombin Time w/INR Comments: [facility] [address] [place], [address] INR 2.5 (Normal) PROTIME 25.6 s (Abnormal) Range: 11.7-14.9 :39 Prothrombin Time w/INR Comments: [facility] [address] [place], [address] INR 2.1 (Normal) PROTIME 22.7 s (Abnormal) Range: 11.7-14.9 :40 Prothrombin Time w/INR Comments: [facility] [address] [place], [address] INR 2.6 (Normal) PROTIME 26.8 s (Abnormal) Range: 11.7-14.9 :40 Prothrombin Time w/INR Comments: [facility] [address] [place], [address] INR 2.2 (Normal) PROTIME 23.8 s (Abnormal) Range: 11.7-14.9 8-Iod-976142:21 Prothrombin Time w/INR Comments: [facility] [address] [place], [address] INR 1.8 (Normal) PROTIME 20.1 s (Abnormal) Range: 11.7-14.9 :30 Prothrombin Time w/INR Comments: [facility] [address] [place], [address] INR 3.0 (Normal) PROTIME 30.2 s (Abnormal) Range: 11.7-14.9 :45 Prothrombin Time w/INR Comments: [facility] [address] [place], [phone] INR 2.9 (Normal) PROTIME 29.1 s (Abnormal) Range: 11.7-14.9 :52 Prothrombin Time w/INR Comments: [facility] [address] [place], [phone] INR 1.4 (Normal) PROTIME 17.0 s (Abnormal) Range: 11.7-14.9 :27 Prothrombin Time w/INR Comments: [facility] [address] [place], [phone] INR 2.0 (Normal) PROTIME 21.7 s (Abnormal) Range: 11.7-14.9 :21 Prothrombin Time w/INR Comments: [facility] [address] [place], [address] INR 2.3 (Normal) PROTIME 24.1 s (Abnormal) Range: 11.7-14.9 :43 Prothrombin Time w/INR Comments: [facility] [address] [place], [phone] INR 2.9 (Normal) PROTIME 29.1 s (Abnormal) Range: 11.7-14.9 :47 Prothrombin Time w/INR Comments: [facility] [address] [place], [phone] INR 2.3 (Normal) PROTIME 24.0 s (Abnormal) Range: 11.7-14.9 :25 CBC W/Diff, Automated Comments: [facility] [address] [place], [phone] ; see other message Absolute Lymph 2.07 {X10_3/ul} (Normal) Range: 0.83-4.51 Absolute Neut 1.2 {X10_3/uL} (Abnormal) Range: 2.0-7.7 IM GRAN % 0.000 % (Normal) Range: 0.0-0.9 Comments: IG% - Immature Granulocytes (promyelocytes, myelocytes andmetamyelocytes) > 1% indicates that a LEFT SHIFT is Present. BASO% 1.9 % (Abnormal) Range: 0-1 EO% 2.8 % (Normal) Range: 0-5 MONO% 5.8 % (Normal) Range: 0-10 LY% 57.2 % (Abnormal) Range: 19-41 NEUT% 32.3 % (Abnormal) Range: 47-70 MPV 10.5 fL (Normal) Range: 6.2-12.0 PLT 213 K/mm3 (Normal) Range: 150-450 RDW SD 44.4 fL (Abnormal) Range: 35.1-43.9 RDW CV 12.7 % (Normal) Range: 11.6-14.6 MCHC 33.7 {g/gl} (Normal) Range: 32-36 MCH 32.6 pg (Abnormal) Range: 27.0-32.0 MCV 96.7 fL (Normal) Range: 81-99 HCT 41.6 % (Normal) Range: 37-47 HGB 14.0 g/dL (Normal) Range: 12.0-15.0 RBC 4.30 {M/mm3} (Normal) Range: 4.2-5.4 WBC 3.6 K/mm3 (Abnormal) Range: 4.4-11.0 07-Jul-20167:25 Comprehensive Metabolic Profil Comments: [facility] [address] [place], [place], [phone] GAP 3 (Abnormal) Range: 5-15 CO2 28.0 mmol/L (Normal) Range: 21.0-32.0 CL 111 mmol/L (Abnormal) Range: 98-107 K 4.0 mmol/L (Normal) Range: 3.5-5.1 NA 142 mmol/L (Normal) Range: 136-145 T BILI 0.60 mg/dL (Normal) Range: 0.20-1.00 ALT 18 U/L (Normal) Range: 12-78 ALK P 79 U/L (Normal) Range: 45-117 AST 15 U/L (Normal) Range: 15-37 CA 8.6 mg/dL (Normal) Range: 8.5-10.1 A/G 1.4 {RATIO} (Normal) Range: 0.9-2.4 GLOB 2.7 g/dL (Normal) Range: 2.3-3.5 ALB 3.8 g/dL (Normal) Range: 3.4-5.0 T PROT 6.5 g/dL (Normal) Range: 6.4-8.2 BUN/CRE 26.0 {RATIO} (Abnormal) Range: 10-20 EST GFR - AA 86 mL/min (Normal) Comments: GFR Calc EST GFR 71 mL/min (Normal) Comments: Non- GFR Calc CREAT,SERUM 0.85 mg/dL (Normal) Range: 0.55-1.02 Comments: The validity of the calculated GFR AND GFRAA in patients over70 years has not been determined. Clinical correlation isessential. BUN 22 mg/dL (Abnormal) Range: 7-18 GLU 91 mg/dL (Normal) Range: 70-110 :25 Prothrombin Time w/INR Comments: [facility] [address] [place], [address] INR 3.5 (Abnormal) Comments: CRITICAL VALUE VERIFIED. CALLED TO PATRICE Longoria07/07/16 0834 Radha Calderon.RESULTS READ BACK BY SAME . PROTIME 33.9 s (Abnormal) Range: 11.7-14.9 :25 Thyroid Stim Hormone (TSH) Comments: [facility] [address] [place], [place], [phone] TSH 3.25 {uIU/mL} (Normal) Range: 0.358-3.74 :47 Prothrombin Time w/INR Comments: [facility] [address] [place], [address] INR 2.6 (Normal) Comments: ADDENDA: handled by Dr. Phillips PROTIME 27.5 s (Abnormal) Range: 11.7-14.9 :32 Prothrombin Time w/INR Comments: [facility] [address] [place], [place], [phone] INR 2.3 (Normal) PROTIME 25.5 s (Abnormal) Range: 11.7-14.9 :15 Prothrombin Time w/INR Comments: [facility] [address] [place], [address] INR 2.6 (Normal) PROTIME 27.7 s (Abnormal) Range: 11.7-14.9 :29 Prothrombin Time w/INR Comments: [facility] [address] [place], [address] INR 1.3 (Normal) PROTIME 16.7 s (Abnormal) Range: 11.7-14.9 :19 Prothrombin Time w/INR Comments: [facility] [address] [place], [address] INR 2.1 (Normal) PROTIME 23.3 s (Abnormal) Range: 11.7-14.9 :14 Prothrombin Time w/INR Comments: [facility] [address] [place], [address] INR 2.0 (Normal) PROTIME 22.5 s (Abnormal) Range: 11.7-14.9 :21 Prothrombin Time w/INR Comments: [facility] [address] [place], [address] INR 2.7 (Normal) PROTIME 28.5 s (Abnormal) Range: 11.7-14.9 :30 Prothrombin Time w/INR Comments: [facility] [address] [place], [address] INR 2.4 (Normal) PROTIME 25.9 s (Abnormal) Range: 11.7-14.9 :41 Prothrombin Time w/INR Comments: [facility] [address] [place], [address] INR 2.5 (Normal) PROTIME 26.9 s (Abnormal) Range: 11.7-14.9 :09 Prothrombin Time w/INR Comments: [facility] [address] [place], [address] INR 3.4 (Normal) PROTIME 34.4 s (Abnormal) Range: 11.7-14.9 :11 Prothrombin Time w/INR Comments: [facility] [address] [place], [address] INR 2.5 (Normal) PROTIME 26.6 s (Abnormal) Range: 11.7-14.9 36-Hbx-275093:33 Prothrombin Time w/INR Comments: [facility] [address] [place], [address] INR 1.5 (Normal) PROTIME 18.1 s (Abnormal) Range: 11.7-14.9 :12 Prothrombin Time w/INR Comments: [facility] [address] [place], [address] INR 1.1 (Normal) PROTIME 14.4 s (Normal) Range: 11.7-14.9 :51 Prothrombin Time w/INR Comments: [facility] [address] [place], [address] INR 3.6 (Abnormal) Comments: CRITICAL VALUE REPEATED AND VERIFIED. CALLED TO Maycol DAVISON02/25/15 1001 Elsie Longoria.RESULTS READ BACK BY MARGUERITE . PROTIME 35.3 s (Abnormal) Range: 11.7-14.9 :23 Prothrombin Time w/INR Comments: [facility] [address] [place], [address] INR 3.3 (Normal) PROTIME 33.3 s (Abnormal) Range: 11.7-14.9 :13 Prothrombin Time w/INR Comments: [facility] [address] [place], [address] INR 2.4 (Normal) PROTIME 26.5 s (Abnormal) Range: 11.7-14.9 :32 Prothrombin Time w/INR Comments: [facility] [place], [address] INR 1.4 (Normal) PROTIME 17.8 s (Abnormal) Range: 11.7-14.9 :09 Prothrombin Time w/INR Comments: [facility] [address] [place], [address] INR 1.2 (Normal) PROTIME 15.9 s (Abnormal) Range: 11.7-14.9 :12 Prothrombin Time w/INR Comments: [facility] [address] [place], [address] INR 2.4 (Normal) PROTIME 26.4 s (Abnormal) Range: 11.7-14.9 :20 Prothrombin Time w/INR Comments: [facility] [address] [place], [address] INR 2.2 (Normal) PROTIME 24.5 s (Abnormal) Range: 11.7-14.9 :11 Prothrombin Time w/INR Comments: Test performed at:[facility] [address] [place] [address] INR 2.2 (Normal) PROTIME 24.1 s (Abnormal) Range: 11.7-14.9 :29 Prothrombin Time w/INR Comments: Test performed at:[facility] [address] [place] [address] INR 3.7 (Abnormal) Comments: CRITICAL VALUE REPEATED AND VERIFIED. CALLED TO KIKE WOMACK12/21/14 Frida Kumar.RESULTS READ BACK BY SAME . PROTIME 36.5 s (Abnormal) Range: 11.7-14.9 :25 Prothrombin Time w/INR Comments: Test performed at:[facility] [address] [place] [address] INR 2.5 (Normal) PROTIME 27.1 s (Abnormal) Range: 11.7-14.9 :23 Miscellaneous Lab Procedure Comments: Comments: [id number] PTH PLUS CALCIUM LAV AND RED RFTest(s) Ordered: [id number] PTH PLUS CALCIUM LAV AND RED RFTest performed at:[facility] [address] [place] [address] [facility] Comments: TEST RESULT LIMITSCa+PTH Intact Calcium, Serum 9.3 mg/dL 8.7 - 10.3 PTH, Intact 30 pg/mL 15 - 65 Intact PTH LAB (Normal) Interpretation Intact PTH Calcium (pg/mL) (mg/dL) Normal 15 - 65 8.6 - 10.2 Primary Hyperparathyroidism > TEST 65 > 10.2 Secondary Hyperparathyroidism > 65 < 10.2 Non-Parathyroid Hypercalcemia < 65 > 10.2 Hypoparathyroidism < 15 < 8.6 Non-Parathyroid Hypocalcemia 15 - 65 < 8.6 TESTING PERFORMED AT [facility]. ORIGINAL REPORT ON FILE IN LAB CONTAINS AD DITIONAL TEST SITE INFORMATION. :23 Prothrombin Time w/INR Comments: Test performed at:[facility] [address] [place] [address] INR 4.0 (Abnormal) Comments: CRITICAL VALUE REPEATED AND VERIFIED. CALLED TO RCNUHO98/11/15 0933 Fletcher Foote.RESULTS READ BACK BY SAME . PROTIME 38.3 s (Abnormal) Range: 11.7-14.9 :23 Vitamin D 1,25-Dihydroxy Comments: Test performed at:[facility] [address] [place] [address] VITD 1,25 83114 55.5 pg/mL (Normal) Range: 19.9-79.3 Comments: Performed at: - [facility] [id number] Director: Juan Ontiveros MD, Phone: [phone] :23 Vitamin D,25 Hydroxy Comments: Test performed at:[facility] [address] [place] [address] Vitamin D 25-OH 70.3 ng/mL (Normal) Comments: Vitamin D 25(OH) Status Range Deficiency <20 ng/mL (50nmol/L) Insuffciency 20 - 30 ng/mL (50 - 75 nmol/L) Sufficiency 30 - 100 ng/mL (75 - 250 nmol/L) Toxicity >100 ng/mL (>250 nmol/L) :04 Prothrombin Time w/INR Comments: Test performed at:[facility] [address] [place] [address] INR 2.1 (Normal) PROTIME 23.5 s (Abnormal) Range: 11.7-14.9 :12 Prothrombin Time w/INR Comments: Test performed at:[facility] [address] [place] [address] INR 1.6 (Normal) PROTIME 18.9 s (Abnormal) Range: 11.7-14.9 :10 Prothrombin Time w/INR Comments: Test performed at:[facility] [address] [place] [address] INR 1.1 (Normal) PROTIME 14.1 s (Normal) Range: 11.7-14.9 76-[id number]-[id number]: ENDOMETRIAL BX/CURETTINGS See Note (Normal) Comments: Test performed at:[facility] [address] [place] [address] 49 Comments: Patient: YAHAIRA BRYANT : 1950 (64/F) Acct Num: [id number] Phys: Aliza Santana MD Unit Num: [id number] Loc: [facility] Specimen: [id number] Received: 11/26/141216 Spec Type: EN DOM BX/C TISSUES TISSUES: GROSS DESCRIPTION Received is one container labeled with the patient name and designated endometrial curettings. The specimen consists of scant fragments of sahni mucoid tissue measuring less than 0.1 cm in greatest dimension. It is doubtful that the specimen will survive processing. The specimen is totally submitted inone cassette. / NICOLÁS:papito 11/26/14 TC: 5 CPT: 69375 HEADER OPERATION: Hysteroscopy, diagnostic, D AND C PRE-OP DIAGNOSIS: Postmenopausal bleeding TISSUE SUBMITTED: Endometrial curettings MICROSCOPIC DESCRIPTION Slides are reviewed. MICROSCOPIC DIAGNOSIS Endometrial curettings: Scant strips of benign endometrial epithelium and superficial fragment of benign endometrial tissue, consistent with atrophic endometri um. Fragments of benign endocervical epithelium. SJ:papito 11/27/14 Signed Jeffy Suazo 11/27/14 <signature on file> [id number]-[id number]:39 INR Fingerstick Comments: Test performed at:[facility] [address] [place] [address] INR ISTAT 1.10 (Normal) Comments: Critical Value > 3.5; ADDENDA: this is for pre-op, will resume tomorrow and recheck it in 1 week. 22-Sfp-237056:39 Prothrombin Time Fingerstick Comments: Test performed at:[facility] [address] [place] [address] PROTIME ISTAT 13.2 {SEC} (Normal) Range: 11.9-14.4 Comments: Reference Range 11.9 - 14.4 :41 Partial Thromboplast Time Comments: Test performed at:[facility] [address] [place] [address] PTT 40.9 s (Abnormal) Range: 24.1-36.2 46-Npi-055065:41 Prothrombin Time w/INR Comments: Test performed at:[facility] [address] [place] [address] INR 2.6 (Normal) PROTIME 27.4 s (Abnormal) Range: 11.7-14.9 38-Nir-846213:41 Type AND Screen Comments: Surgery Date: 11/26/14Hx of Preganancy in last 3 Months NoEver experience any problems with transfusion(s)? NHx of Transfusion in last 3 Months NReason for Type AND Screen/Red Cells: SURGERYSURGI ADELSO PROCEDURE: .Test performed at:[facility] [address] [place] [address] Antibody Screen NEGATIVE (Normal) BLOOD TYPE GEL A POSITIVE (Normal) 07-Hko-79022:09 CBC W/Diff, Automated Comments: Test performed at:[facility] [address] [place] [address] Absolute Lymph 2.07 {X10_3/ul} (Normal) Range: 0.83-4.51 Absolute Neut 1.3 {X10_3/uL} (Abnormal) Range: 2.0-7.7 IM GRAN % 0.000 % (Normal) Range: 0.0-0.9 Comments: IG% - Immature Granulocytes (promyelocytes, myelocytes andmetamyelocytes) > 1% indicates that a LEFT SHIFT is Present. BASO% 1.8 % (Abnormal) Range: 0-1 EO% 2.8 % (Normal) Range: 0-5 MONO% 8.7 % (Normal) Range: 0-10 LY% 53.2 % (Abnormal) Range: 19-41 NEUT% 33.5 % (Abnormal) Range: 47-70 MPV 10.6 fL (Normal) Range: 6.2-12.0 PLT 205 K/mm3 (Normal) Range: 150-450 RDW SD 43.9 fL (Normal) Range: 35.1-43.9 RDW CV 12.4 % (Normal) Range: 11.6-14.6 MCHC 34.1 {g/gl} (Normal) Range: 32-36 MCH 33.0 pg (Abnormal) Range: 27.0-32.0 MCV 96.8 fL (Normal) Range: 81-99 HCT 39.3 % (Normal) Range: 37-47 HGB 13.4 g/dL (Normal) Range: 12.0-15.0 RBC 4.06 {M/mm3} (Abnormal) Range: 4.2-5.4 WBC 3.9 K/mm3 (Abnormal) Range: 4.4-11.0 :09 Comprehensive Metabolic Profil Comments: Test performed at:[facility] [id number] [place], [place] [id number] GAP 6 (Normal) Range: 5-15 CO2 29.0 mmol/L (Normal) Range: 21.0-32.0 CL 108 mmol/L (Abnormal) Range: 98-107 K 3.8 mmol/L (Normal) Range: 3.5-5.1 NA 143 mmol/L (Normal) Range: 136-145 T BILI 1.00 mg/dL (Normal) Range: 0.20-1.00 ALT 23 U/L (Normal) Range: 12-78 ALK P 70 U/L (Normal) Range: 50-136 AST 19 U/L (Normal) Range: 15-37 CA 8.6 mg/dL (Normal) Range: 8.5-10.1 A/G 1.5 {RATIO} (Normal) Range: 0.9-2.4 GLOB 2.6 g/dL (Normal) Range: 2.3-3.5 ALB 3.8 g/dL (Normal) Range: 3.4-5.0 T PROT 6.4 g/dL (Normal) Range: 6.4-8.2 BUN/CRE 30.2 {RATIO} (Abnormal) Range: 10-20 EST GFR - AA 122 mL/min (Normal) EST GFR 101 mL/min (Normal) CREAT,SERUM 0.63 mg/dL (Normal) Range: 0.55-1.20 Comments: Please note revised CREATININE reference range [id number]/22/2015. BUN 19 mg/dL (Abnormal) Range: 7-18 GLU 75 mg/dL (Normal) Range: 70-110 :09 Prothrombin Time w/INR Comments: Test performed at:[facility] [id number] [facility] [place], [place] [id number] INR 2.4 (Normal) PROTIME 25.8 s (Abnormal) Range: 11.7-14.9 :13 Prothrombin Time w/INR Comments: Test performed at:[facility] [id number] [place] [address] INR 1.8 (Normal) PROTIME 21.2 s (Abnormal) Range: 11.7-14.9 :06 Prothrombin Time w/INR Comments: Test performed at:[facility] [id number] [place] [address] INR 2.2 (Normal) PROTIME 24.4 s (Abnormal) Range: 11.7-14.9 :50 Prothrombin Time w/INR Comments: Test performed at:[facility] [id number] [place] [address] INR 1.7 (Normal) PROTIME 20.3 s (Abnormal) Range: 11.7-14.9 [id number] Estrogen, Total, Serum Comments: Comments: TSHHas Patient had Radioactive Injection for X-ray?: NTest performed at:[facility] [address] [place] [address] ESTROGEN 4549 54 pg/mL (Normal) Comments: Prepubertal <40 Female Cycle: 1-10 Days 61 - 394 11-20 Days 122 - 437 21-30 Days 156 - 350 Post-Menopausal <40 HMG Treatment for Ovulation Induction: 400 - 800Performed at: [facility] [id number] Director: Juan Ontiveros MD, Phone: [phone] [id number] Free T3 Comments: Comments: TSHTest performed at:[facility] [id number] [place] [address] FREE T3 2.6 pg/mL (Normal) Range: 2.18-3.98 75-Qth-593626:16 Hemoglobin A1c Comments: Test performed at:[facility] [address] [place] [address] HGB A1C 5.0 % (Normal) Range: 4.2-6.3 96-Qhq-248941:16 Progesterone Level Comments: Test performed at:[facility] [address] [place] [address] Progesterone 0.48 ng/mL (Normal) Comments: Progesterone Reference Table: UNITS Female: Follicular 0.15 - 1.40 ng/mL Luteal 3.34 - 25.56 ng/mL Mid-luteal 4.44 - 28.03 ng/mL Postmenopausal 0.0 - 0.73 ng/mL : 1st Trimester 11.22 - 90.00 ng /mL 2nd Trimester 25.55 - 89.40 ng/mL 3rd Trimester 48.40 -422.50 ng/mL 86-Thw-938030:16 T4 Free Direct Comments: Comments: TSHTest performed at:[facility] [address] [place] [address] T4 FREE DIRECT 1.16 ng/dL (Normal) Range: 0.76-1.46 41-Orl-092527:16 Testosterone, Serum Total Comments: Test performed at:[facility] [address] [place] [address] ; ordered by Dr. Santana Testosterone 35 ng/dL (Normal) Range: 14-76 21-Jwe-308387:16 Thyroid Stim Hormone (TSH) Comments: Comments: TSHTest performed at:[facility] [address] [place] [address] TSH 1.53 {uIU/mL} (Normal) Range: 0.358-3.74 :11 Prothrombin Time w/INR Comments: Test performed at:[facility] [address] [place] [address] INR 1.8 (Normal) PROTIME 20.9 s (Abnormal) Range: 11.7-14.9 :27 Prothrombin Time w/INR Comments: Test performed at:[facility] [address] [place] [address] INR 2.2 (Normal) PROTIME 24.8 s (Abnormal) Range: 11.7-14.9 :08 Prothrombin Time w/INR Comments: Test performed at:[facility] [address] [place] [address]( INR 4.8 (Abnormal) Comments: CRITICAL VALUE REPEATED AND VERIFIED. CALLED TO RADHA WOMACK10/01/14 0[address]RESULTS READ BACK BY DAVID. PROTIME 44.0 s (Abnormal) Range: 11.7-14.9 :14 Prothrombin Time w/INR Comments: Test performed at:[facility] [address] [place] [address] INR 2.6 (Normal) PROTIME 27.9 s (Abnormal) Range: 11.7-14.9 :16 Prothrombin Time w/INR Comments: Test performed at:[facility] [address] [place] [address] INR 5.0 (Abnormal) Comments: CRITICAL VALUE REPEATED AND VERIFIED. CALLED TO Tami DAVISON09/21/14 0809 Elsie Longoria.RESULTS READ BACK BY CONNER . PROTIME 45.5 s (Abnormal) Range: 11.7-14.9 :10 Prothrombin Time w/INR Comments: Test performed at:[facility] [address] [place] [address] INR 3.2 (Normal) PROTIME 32.8 s (Abnormal) Range: 11.7-14.9 :24 Miscellaneous Lab Procedure Comments: Comments: [id number] HHV-6 IGM,SST,REFRIGERATETest(s) Ordered: [id number] HHV-6 IGM,SST,REFRIGERATETest performed at:[facility] [address] [place] [address] [facility] Comments: TEST RESULT UNITS REFERENCE INTERVALHuman Herpes Virus Type 6 IgM <1:10 Neg:<1:10Results for this test are for research purposes only by LAB (Normal) theassay's manager ch[place]. The performance characteristics ofthis product have not been established. Results should notbe used as a diagnostic procedure without confirmation ofthe diagnosis by another med TEST ically established diagnosticproduct or procedure. TESTING PERFORMED AT [facility]. ORIGINAL REPORT ON FILE IN LAB CONTAINS ADDITIONAL TEST SITE IN FORMATION. :18 ANTINUCLEAR ANTIBODIES DIRECT Comments: Test performed at:[address] [place] [address] YURIY-DIRECT Negative (Normal) Comments: Performed at: [address] [id number] Director: Narendra Covarrubias PhD, Phone: [phone] :18 CMV Acute Antibody IgM Comments: Test performed at:[address] [place] [address] CMVIgM AB < 30.0 AU/mL (Normal) Range: 0.0-29.9 Comments: Negative <30.0 Equivocal 30.0 - 34.9 Positive >34.9A positive result is generally indicative of acuteinfection, react ivation or persistent IgM production.Performed at: [address] [id number] Director: Narendra Covarrubias PhD, Phone: [phone] at: [facility] [address] [place], [place] [id number] Director: Juan Ontiveros MD, Phone: [phone] at: [address] [place] [id number] [place] [id number] Director: Bill Tao PhD, Phone: [phone] :18 CMV Antibody IgG Comments: Test performed at:[address] [place] [address] CMV AB IgG > 10.00 U/mL (Abnormal) Range: 0.00-0.59 Comments: Negative <0.60 Equivocal 0.60 - 0.69 Positive >0.69 :18 EBV Acute Prof IgG / IgM Comments: Test performed at:[facility] [address] [place] [address] INTERPRETATION Comment (Normal) Comments: EBV Interpretation ChartInterpretation EBV-IgM EA(D)-IgG VCA-IgG EBNA-IgGEBV Seronegative - - - -Early Phase + - - -Acute Primary + +or- + -InfectionConvalescence/Past - +or- + +InfectionReactivated +or- + + +Infection + Antibody Present - Antibody Absent EB-NAg [id number] 71.5 U/mL (Abnormal) Range: 0.0-17.9 Comments: Negative <18.0 Equivocal 18.0 - 21.9 Positive >21.9 EB-VCA [id number] > 600.0 U/mL (Abnormal) Range: 0.0-17.9 Comments: Negative <18.0 Equivocal 18.0 - 21.9 Positive >21.9 EB-EA IgG [id number] 21.1 U/mL (Abnormal) Range: 0.0-8.9 Comments: Hepatitis A, Hepatitis C and HIV antibodies may cross-reactwith this assay. Negative < 9.0 Equivocal 9.0 - 10.9 Positive >10.9 EB-VCA [id number] < 36.0 U/mL (Normal) Range: 0.0-35.9 Comments: Negative <36.0 Equivocal 36.0 - 43.9 Positive >43.9 :18 Ferritin Comments: Test performed at:[facility] [address] [place] [address] FERRITIN 28 ng/mL (Normal) Range: 8-252 :18 HLA B27 Negative (Normal) Comments: Test performed at:[address] [address] Comments: HLA-B*27 NegativeA Lab CLIA ID Number [id number] test was performed using PCR (Polymerase ChainReaction)/SSOP (Sequence Specific Oligonucleotide Probes)technique. SBT (Sequence Based Typing) and/ or SSP(Sequence Specific Primers) may be used as supplementalmethods when necessary. Please contact [facility] CustomerService at if you have any questions. Director of [facility] Laboratory Dr Bill Tao, PhD :18 Homocysteine Comments: Test performed at:[facility] [address] [facility] [place] [address] HOMOCYSTEINE 6.7 umol/L (Normal) Range: 3.2-10.7 :18 IgG Subclasses Comments: Test performed at:[facility] [address] [facility] [place] [address] IgG, SUBCLASS 4 1 mg/dL (Normal) Range: 1-291 Comments: Results verified by repeat testing IgG, SUBCLASS 3 52 mg/dL (Normal) Range: 41-129 IgG, SUBCLASS 2 145 mg/dL (Normal) Range: 117-747 IgG, SUBCLASS 1 264 mg/dL (Abnormal) Range: 422-1292 IGG, QUANT 520 mg/dL (Abnormal) Range: 700-1600 :18 Miscellaneous Lab Procedure Comments: Comments: [id number] HHV-6 IGG,SST,REFRIGERATETest(s) Ordered: [id number] HHV-6 IGG,SST,REFRIGERATEList Test(s) Ordered by Physician: IGA SUBCLASSES, #[id number], SERUM,RM TEMP, 2 MLTest performed at:[facility] [address] [facility] [place] [address] MISC Comments: TEST RESULT UNITS REFERENCE INTERVALHHV 6 IgG Antibodies 2.42 High index Negative <0.76 Equivocal 0.76 - 0.99 LAB (Normal) Positive >0.99Results for this test are for research purposesonly by the assay's manager china. The performancecharacteristics of this product have not beenestablishe TEST d. Results should not be used as adiagnostic procedure without confirmation of thediagnosis by another medically established diagnosticproduct or procedure. TESTING PERFORMED AT [facility]. ORIGINAL REPORT ON FILE IN LAB CONTAINS ADDITIONAL TEST SITE INFORMATION. :18 Miscellaneous Lab Procedure Comments: Comments: [id number] HLA-DR4,SST,REFRIGERATETest(s) Ordered: [id number] HLA-DR4,SST,REFRIGERATETest performed at:[facility] [address] [place], [place] [address] [facility] Comments: TEST RESULT UNITS REFERENCE INTERVALHLA DRB1 (IR) DRB1 DRB1*07:NIRAV DRB1 DRB1*- Code Translation: NIRAV 07:01/07:09/07:10N/07:11/07:14/07:22 LAB (Normal) /07:24 /07:25/07:26N/07:27/07:28/07:29HLA allele interpretation for all loci based on IMGT/HLAdatabase version 3.15A [facility] CLIA ID Number [id number] TEST TESTING PERFORMED AT [facility]. ORIGINAL REPORT ON FILE IN LAB CONTAINS ADDITIONAL TEST SITE INFORMATION. HLA Methodology:HLA result s were obtained using sequence based typing (SBT),sequence specific oligonucleotide probes (SSOP), and/orsequence specific primers (SSP) as needed to obtain therequired resolution. Please contact HLA [facility] [phone] if you have any questions.Director of HLA LaboratoryDr Bill Tao, PhD :18 Miscellaneous Lab Procedure 2 Comments: Comments: [id number] HHV- 6 IGG,SST,REFRIGERATETest(s) Ordered: [id number] HHV-6 IGG,SST,REFRIGERATEList Test(s) Ordered by Physician: IGA SUBCLASSES, #[id number], SERUM,RM TEMP, 2 MLTest performed at:[facility] [address] [place] [address] MISC Comments: TEST RESULT UNITS REFERENCE INTERVALIgA, Subclasses (1-2) Immunoglobulin A, Qn, Serum 161 mg/dL 91 - 414 IgA, Subclass 1 132.0 mg/dL LAB (Normal) 73.2 - 301.2 IgA, Subclass 2 6.2 Low mg/dL 13.4 - 97.9 TESTING PERFORMED AT [facility]. ORIGINAL REPORT ON FILE IN LAB CONTAINS MANFRED TEST TIONAL TEST SITE INFORMATION. 2 :18 Prothrombin Time w/INR Comments: Test performed at:[facility] [address] [facility] [place] [address] INR 1.9 (Normal) PROTIME 22.3 s (Abnormal) Range: 11.7-14.9 :18 Vitamin B12 664 pg/mL (Normal) Comments: Test performed at:[facility] [address] [place] [address] Range: 211-911 :18 Vitamin D,25 Hydroxy Comments: Test performed at:[facility] [address] [place] [address] Vitamin D 25-OH 58.8 ng/mL (Normal) Comments: Vitamin D 25(OH) Status Range Deficiency <20 ng/mL (50nmol/L) Insuffciency 20 - 30 ng/mL (50 - 75 nmol/L) Sufficiency 30 - 100 ng/mL (75 - 250 nmol/L) Toxicity >100 ng/mL (>250 nmol/L) :13 CBC W/Diff, Automated Comments: Test performed at:[facility] [address] [facility] [place], [place] [address] Absolute Lymph 2.08 {X10_3/ul} (Normal) Range: 0.83-4.51 Absolute Neut 1.3 {X10_3/uL} (Abnormal) Range: 2.0-7.7 IM GRAN % 0.000 % (Normal) Range: 0.0-0.9 Comments: IG% - Immature Granulocytes (promyelocytes, myelocytes andmetamyelocytes) > 1% indicates that a LEFT SHIFT is Present. BASO% 0.8 % (Normal) Range: 0-1 EO% 2.0 % (Normal) Range: 0-5 MONO% 9.9 % (Normal) Range: 0-10 LY% 53.1 % (Abnormal) Range: 19-41 NEUT% 34.2 % (Abnormal) Range: 47-70 MPV 10.1 fL (Normal) Range: 6.2-12.0 PLT 193 K/mm3 (Normal) Range: 150-450 RDW SD 45.0 fL (Abnormal) Range: 35.1-43.9 RDW CV 12.9 % (Normal) Range: 11.6-14.6 MCHC 34.3 {g/gl} (Normal) Range: 32-36 MCH 33.3 pg (Abnormal) Range: 27.0-32.0 MCV 97.1 fL (Normal) Range: 81-99 HCT 40.2 % (Normal) Range: 37-47 HGB 13.8 g/dL (Normal) Range: 12.0-15.0 RBC 4.14 {M/mm3} (Abnormal) Range: 4.2-5.4 WBC 3.9 K/mm3 (Abnormal) Range: 4.4-11.0 :13 Comprehensive Metabolic Profil Comments: Test performed at:[facility] [address] [place] [address] GAP 7 (Normal) Range: 5-15 CO2 29.0 mmol/L (Normal) Range: 21.0-32.0 CL 106 mmol/L (Normal) Range: 98-107 K 4.1 mmol/L (Normal) Range: 3.5-5.1 NA 142 mmol/L (Normal) Range: 136-145 T BILI 0.40 mg/dL (Normal) Range: 0.00-4.00 ALT 26 U/L (Normal) Range: 12-78 ALK P 82 U/L (Normal) Range: 50-136 AST 18 U/L (Normal) Range: 15-37 CA 8.5 mg/dL (Normal) Range: 8.5-10.1 A/G 1.4 {RATIO} (Normal) Range: 0.9-2.4 GLOB 2.7 g/dL (Normal) Range: 2.7-4.2 ALB 3.7 g/dL (Normal) Range: 3.4-5.0 T PROT 6.4 g/dL (Normal) Range: 6.4-8.2 BUN/CRE 38.6 {RATIO} (Abnormal) Range: 10-20 EST GFR - AA 109 mL/min (Normal) EST GFR 90 mL/min (Normal) CREAT,SERUM 0.7 mg/dL (Normal) Range: 0.6-1.0 BUN 27 mg/dL (Abnormal) Range: 7-18 GLU 86 mg/dL (Normal) Range: 70-110 :13 Lipid Profile Comments: Test performed at:[facility] [address] [place] [address] VLDL 9 mg/dL (Normal) Range: 5-40 LDL 195 mg/dL (Abnormal) Range: 0-130 HDL 96 mg/dL (Normal) Comments: Reference Range HDL <40 mg/dL Low HDL Cholesterol HDL >or= 60 mg/dL High HDL Cholesterol TRIG 43 mg/dL (Normal) Range: 0-199 Comments: Serum Triglycerides Reference Interval Normal <150 mg/dL Borderline high 150 - 199 mg/dL High 200 - 499 mg/dL Very High > or = 500 mg/dL CHOL 300 mg/dL (Abnormal) Comments: <200 mg/dL Desirable 200-240 mg/dL Borderline >240 mg/dL High Risk 1-Samy-54898:13 Prothrombin Time w/INR Comments: Test performed at:[facility] [address] [place] [address] INR 1.5 (Normal) PROTIME 18.4 s (Abnormal) Range: 11.7-14.9 :17 INR Fingerstick Comments: Test performed at:[facility] [address] [place] [address] INR ISTAT 1.50 (Normal) Comments: Critical Value > 3.5 :17 Prothrombin Time Fingerstick Comments: Test performed at:[facility] [address] [place] [address] PROTIME ISTAT 17.6 {SEC} (Abnormal) Range: 11.9-14.4 Comments: Reference Range 11.9 - 14.4 :09 INR Fingerstick Comments: Test performed at:[facility] [address] [place] [address] INR ISTAT 1.40 (Normal) Comments: Critical Value > 3.5 :09 Prothrombin Time Fingerstick Comments: Test performed at:[facility] [address] [place] [address] PROTIME ISTAT 17.1 {SEC} (Abnormal) Range: 11.9-14.4 Comments: Reference Range 11.9 - 14.4 :09 Prothrombin Time w/INR Comments: Test performed at:[facility] [address] [place] [address] INR 1.1 (Normal) PROTIME 14.6 s (Normal) Range: 11.7-14.9 :11 INR Fingerstick Comments: Test performed at:[facility] [address] [place] [address] INR ISTAT 1.20 (Normal) Comments: Critical Value > 3.5 :11 Prothrombin Time Fingerstick Comments: Test performed at:[facility] [address] [place] [address] PROTIME ISTAT 13.9 {SEC} (Normal) Range: 11.9-14.4 Comments: Reference Range 11.9 - 14.4 :06 INR Fingerstick Comments: Test performed at:[facility] [address] [place] [address] INR ISTAT 1.10 (Normal) Comments: Critical Value > 3.5 :06 Prothrombin Time Fingerstick Comments: Test performed at:[facility] [address] [place] [address] PROTIME ISTAT 13.6 {SEC} (Normal) Range: 11.9-14.4 Comments: Reference Range 11.9 - 14.4 :28 INR Fingerstick Comments: Test performed at:[facility] [address] [place] [address] INR ISTAT 2.20 (Normal) Comments: Critical Value > 3.5 :28 Prothrombin Time Fingerstick Comments: Test performed at:[facility] [address] [place] [address] PROTIME ISTAT 25.0 {SEC} (Abnormal) Range: 11.9-14.4 Comments: Reference Range 11.9 - 14.4 :19 INR Fingerstick Comments: Test performed at:[facility] [address] [place] [address] INR ISTAT 2.70 (Normal) Comments: Critical Value > 3.5 :19 Prothrombin Time Fingerstick Comments: Test performed at:[facility] [address] [place] [address] PROTIME ISTAT 30.6 {SEC} (Abnormal) Range: 11.9-14.4 Comments: Reference Range 11.9 - 14.4 9-Mar-84456:09 Prothrombin Time w/INR Comments: Test performed at:[facility] [address] [place] [address] INR 3.2 (Normal) PROTIME 32.6 s (Abnormal) Range: 11.7-14.9 :22 Prothrombin Time w/INR Comments: Test performed at:[facility] [address] [place] [address] INR 2.6 (Normal) PROTIME 27.8 s (Abnormal) Range: 11.7-14.9 :22 Prothrombin Time w/INR Comments: Test performed at:[facility] [address] [place] [address] INR 3.0 (Normal) PROTIME 30.9 s (Abnormal) Range: 11.7-14.9 :12 Prothrombin Time w/INR Comments: Test performed at:[facility] [address] [facility] [place] [address] INR 3.4 (Normal) PROTIME 33.7 s (Abnormal) Range: 11.7-14.9 :10 Prothrombin Time w/INR Comments: Test performed at:[facility] [address] [place] [address] INR 3.7 (Abnormal) PROTIME 36.4 s (Abnormal) Range: 11.7-14.9 87-Vpr-488149:20 Prothrombin Time w/INR Comments: Test performed at:[facility] [address] [place] [address] INR 3.0 (Normal) PROTIME 31.0 s (Abnormal) Range: 11.7-14.9 :10 Prothrombin Time w/INR Comments: Test performed at:[facility] [address] [place] [address] INR 3.0 (Normal) PROTIME 30.7 s (Abnormal) Range: 11.7-14.9 :04 Prothrombin Time w/INR Comments: Test performed at:[facility] [address] [place], [place] [address] INR 1.7 (Normal) PROTIME 19.7 s (Abnormal) Range: 11.7-14.9 :17 Prothrombin Time w/INR Comments: Test performed at:[facility] [address] [place], [place] [address] INR 1.8 (Normal) PROTIME 21.1 s (Abnormal) Range: 11.7-14.9 :06 PT INR 2.6 (Normal) PTP 27.3 s (Abnormal) Range: 11.7-14.9 :06 PT INR 2.3 (Normal) PTP 25.3 s (Abnormal) Range: 11.7-14.9 :11 PT INR 1.8 (Normal) PTP 20.8 s (Abnormal) Range: 11.7-14.9 :08 PT INR 2.2 (Normal) PTP 24.7 s (Abnormal) Range: 11.7-14.9 :13 PT INR 2.2 (Normal) PTP 24.2 s (Abnormal) Range: 11.7-14.9 :16 PT INR 1.5 (Normal) PTP 18.0 s (Abnormal) Range: 11.7-14.9 :57 PT INR 2.5 (Normal) PTP 26.5 s (Abnormal) Range: 11.7-14.9 :01 PT INR 3.5 (Abnormal) PTP 35.2 s (Abnormal) Range: 11.7-14.9 :32 PT INR 1.9 (Normal) PTP 21.8 s (Abnormal) Range: 11.7-14.9 :06 PT INR 1.3 (Normal) PTP 16.3 s (Abnormal) Range: 11.7-14.9 :18 PT INR 1.1 (Normal) PTP 13.9 s (Normal) Range: 11.7-14.9 :02 PT INR 1.9 (Normal) PTP 21.8 s (Abnormal) Range: 11.7-14.9 :16 PT INR 2.9 (Normal) PTP 30.4 s (Abnormal) Range: 11.7-14.9 :25 PT INR 5.0 (Abnormal) Comments: CRITICAL VALUE REPEATED AND VERIFIED. CALLED TO TARUN RN12/15/13 0919 [address].RESULTS READ BACK BY SAME. PTP 45.6 s (Abnormal) Range: 11.7-14.9 :00 HARMONY 10.46 ug/dL (Normal) Comments: BASELINE OR POST MEDICATION STIMULATION?: POSTComments: 1600 DRAW Range: 3.09-22.40 Comments: Adult (AM) 4.30 - 22.40 ug/dLAdult (PM) 3.09 - 16.66 ug/dL :55 CBC MPV 11.4 fL (Normal) Range: 6.2-12.0 PLT 191 K/mm3 (Normal) Range: 150-450 RDWSD 42.5 fL (Normal) Range: 35.1-43.9 RDWCV 12.6 % (Normal) Range: 11.6-14.6 MCHC 34.1 {g/gl} (Normal) Range: 32-36 MCH 32.8 pg (Abnormal) Range: 27.0-32.0 MCV 96.1 fL (Normal) Range: 81-99 HCT 39.9 % (Normal) Range: 37-47 HGB 13.6 g/dL (Normal) Range: 12.0-15.0 RBC 4.15 {M/mm3} (Abnormal) Range: 4.2-5.4 WBC 4.7 K/mm3 (Normal) Range: 4.4-11.0 :55 CMP Comments: DR BARNES ORDERED PT ONLY GAP 7 (Normal) Range: 5-15 CO2 28.0 mmol/L (Normal) Range: 21.0-32.0 CL 106 mmol/L (Normal) Range: 98-107 K 3.9 mmol/L (Normal) Range: 3.5-5.1 NA 141 mmol/L (Normal) Range: 136-145 BIT 1.10 mg/dL (Abnormal) Range: 0.00-1.00 ALT 23 U/L (Normal) Range: 12-78 ALK 69 U/L (Normal) Range: 45-117 AST 14 U/L (Abnormal) Range: 15-37 CA 9.1 mg/dL (Normal) Range: 8.5-10.1 AG 1.4 {RATIO} (Normal) Range: 0.9-2.4 GLOB 2.8 g/dL (Normal) Range: 2.7-4.2 ALB 4.0 g/dL (Normal) Range: 3.4-5.0 TPROT 6.8 g/dL (Normal) Range: 6.4-8.2 BC 20.0 {RATIO} (Normal) Range: 10-20 GFRAA 130 mL/min (Normal) GFR 107 mL/min (Normal) CREAT 0.6 mg/dL (Normal) Range: 0.6-1.0 BUN 12 mg/dL (Normal) Range: 7-18 GLU 87 mg/dL (Normal) Range: 70-110 :55 HARMONY 15.19 ug/dL (Normal) Range: 3.09-22.40 Comments: Adult (AM) 4.30 - 22.40 ug/dLAdult (PM) 3.09 - 16.66 ug/dL :55 PT INR 3.4 (Normal) PTP 34.3 s (Abnormal) Range: 11.7-14.9 :04 PT INR 3.0 (Normal) PTP 30.6 s (Abnormal) Range: 11.7-14.9 :10 PT INR 2.2 (Normal) PTP 24.7 s (Abnormal) Range: 11.7-14.9 Comments: Please note revised PROTIME reference range dlmkkrokv91/14/15. 72-Bjw-30336:05 PT INR 3.0 (Normal) PTP 30.6 s (Abnormal) Range: 11.7-14.9 Comments: Please note revised PROTIME reference range hacfzlvuw88/14/15. 52-Bnh-67780:07 PT INR 5.6 (Abnormal) PTP 50.1 s (Abnormal) Range: 11.7-14.9 Comments: Please note revised PROTIME reference range mrvyonzyz47/14/15. :03 PT INR 2.5 (Normal) PTP 27.0 s (Abnormal) Range: 11.7-14.9 Comments: Please note revised PROTIME reference range znfaootbr89/14/15. 71-Pic-21540:03 PT INR 2.0 (Normal) PTP 23.0 s (Abnormal) Range: 11.7-14.9 Comments: Please note revised PROTIME reference range xwirksvqq67/14/15. 2:06 PT INR 2.1 (Normal) PTP 21.9 s (Abnormal) Range: 11.9-14.4 :12 PT INR 2.9 (Normal) PTP 28.7 s (Abnormal) Range: 11.9-14.4 :12 PT INR 3.6 (Abnormal) PTP 33.6 s (Abnormal) Range: 11.9-14.4 :12 PT INR 2.0 (Normal) PTP 21.1 s (Abnormal) Range: 11.9-14.4 :05 PT INR 1.4 (Normal) PTP 16.0 s (Abnormal) Range: 11.9-14.4 :03 PT INR 2.9 (Normal) PTP 28.4 s (Abnormal) Range: 11.9-14.4 :16 PT INR 5.1 (Abnormal) PTP 43.9 s (Abnormal) Range: 11.9-14.4 :12 PT INR 4.8 (Abnormal) Comments: CRITICAL VALUE REPEATED AND VERIFIED. CALLED TO HERIBERTO RN08/08/13 1033 [address].RESULTS READ BACK BY SAME. PTP 41.9 s (Abnormal) Range: 11.9-14.4 :17 PT INR 5.5 (Abnormal) PTP 46.9 s (Abnormal) Range: 11.9-14.4 :33 PT INR 7.6 (Abnormal) Comments: TRIED TO CALL DR. CAMERON NGUYỄN, LEFT MESSAGE, 08/01/13 8:30JAIRORESULTS CALLED TO HERIBERTO 08/01/13 0846 Ayla Stanton.REPORT READ BACK BY SAME. PTP 60.0 s (Abnormal) Range: 11.9-14.4 :16 LIPID Comments: DR BARNES ORDERED PT LIPIDDR BRAMBILA ORDERED PT LDL 186 mg/dL (Abnormal) Range: 0-130 VLDL 16 mg/dL (Normal) Range: 5-40 HDL 85 mg/dL (Normal) Comments: Reference RangeHDL <40 mg/dL Low HDL CholesterolHDL >or= 60 mg/dL High HDL Cholesterol CHOL 287 mg/dL (Abnormal) Comments: <200 mg/dL Woinpulbp363-557 mg/dL Borderline>240 mg/dL High Risk TRIG 78 mg/dL (Normal) Range: 0-199 Comments: Serum Triglycerides Reference IntervalNormal <150 mg/dLBorderline high 150 - 199 mg/dLHigh 200 - 499 mg/ dLVery High > or = 500 mg/dL :16 PT Comments: DR BARNES ORDERED PT LIPIDDR BRAMBILA ORDERED PT INR 3.0 (Normal) PTP 29.2 s (Abnormal) Range: 11.9-14.4 :17 PT INR 2.3 (Normal) PTP 23.5 s (Abnormal) Range: 11.9-14.4 :09 PT INR 2.7 (Normal) PTP 26.7 s (Abnormal) Range: 11.9-14.4 :08 CBC Comments: DR BARNES ORDERED PAIGE BRAMBILA ORDERED PT CBC CMP MPV 11.0 fL (Normal) Range: 6.2-12.0 PLT 181 K/mm3 (Normal) Range: 150-450 RDWSD 45.0 fL (Abnormal) Range: 35.1-43.9 MCHC 35.0 {g/gl} (Normal) Range: 32-36 RDWCV 13.3 % (Normal) Range: 11.6-14.6 MCH 32.5 pg (Abnormal) Range: 27.0-32.0 MCV 92.9 fL (Normal) Range: 81-99 HCT 40.6 % (Normal) Range: 37-47 HGB 14.2 g/dL (Normal) Range: 12.0-15.0 RBC 4.37 {M/mm3} (Normal) Range: 4.2-5.4 WBC 3.5 K/mm3 (Abnormal) Range: 4.4-11.0 :08 CMP Comments: DR BARNES ORDERED PTDR [place]OST[place] ORDERED PT CBC CMP GAP 7 (Normal) Range: 5-15 CO2 30.0 mmol/L (Normal) Range: 21.0-32.0 CL 105 mmol/L (Normal) Range: 98-107 K 3.7 mmol/L (Normal) Range: 3.5-5.1 NA 142 mmol/L (Normal) Range: 136-145 BIT 0.40 mg/dL (Normal) Range: 0.00-1.00 ALT 23 U/L (Normal) Range: 12-78 ALK 74 U/L (Normal) Range: 50-136 AST 14 U/L (Abnormal) Range: 15-37 CA 8.9 mg/dL (Normal) Range: 8.5-10.1 AG 1.6 {RATIO} (Normal) Range: 0.9-2.4 GLOB 2.6 g/dL (Abnormal) Range: 2.7-4.2 ALB 4.1 g/dL (Normal) Range: 3.4-5.0 TPROT 6.7 g/dL (Normal) Range: 6.4-8.2 BC 20.0 {RATIO} (Normal) Range: 10-20 GFRAA 109 mL/min (Normal) GFR 90 mL/min (Normal) CREAT 0.7 mg/dL (Normal) Range: 0.6-1.0 BUN 14 mg/dL (Normal) Range: 7-18 GLU 84 mg/dL (Normal) Range: 70-110 :08 PT Comments: DR BARNES ORDERED PTDR [place] ORDERED PT CBC CMP INR 1.5 (Normal) PTP 17.2 s (Abnormal) Range: 11.9-14.4 :11 PT INR 1.3 (Normal) PTP 15.7 s (Abnormal) Range: 11.9-14.4 :21 PT INR 1.6 (Normal) PTP 18.3 s (Abnormal) Range: 11.9-14.4 :18 PT INR 1.2 (Normal) PTP 14.6 s (Abnormal) Range: 11.9-14.4 :08 PT INR 1.5 (Normal) PTP 17.5 s (Abnormal) Range: 11.9-14.4 :19 PT INR 1.4 (Normal) PTP 16.0 s (Abnormal) Range: 11.9-14.4 :07 PT INR 1.3 (Normal) PTP 15.2 s (Abnormal) Range: 11.9-14.4 :07 PT INR 1.3 (Normal) PTP 15.0 s (Abnormal) Range: 11.9-14.4 :12 PT INR 1.0 (Normal) PTP 12.8 s (Normal) Range: 11.9-14.4 :09 PT INR 1.0 (Normal) PTP 13.0 s (Normal) Range: 11.9-14.4 :29 PT INR 2.1 (Normal) PTP 22.5 s (Abnormal) Range: 11.9-14.4 :10 PT INR 3.8 (Abnormal) PTP 34.9 s (Abnormal) Range: 11.9-14.4 :14 PT INR 9.3 (Abnormal) Comments: CRITICAL VALUE REPEATED AND VERIFIED. CALLED TO [id number]/14 [facility] Jeovanny Serrano.RESULTS READ BACK BY OLIVIER . PTP 70.1 s (Abnormal) Range: 11.9-14.4 :10 PT INR 2.8 (Normal) PTP 27.8 s (Abnormal) Range: 11.9-14.4 :26 PT INR 1.1 (Normal) PTP 13.9 s (Normal) Range: 11.9-14.4 :11 PT INR 2.5 (Normal) PTP 25.2 s (Abnormal) Range: 11.9-14.4 :14 PT INR 1.6 (Normal) PTP 18.2 s (Abnormal) Range: 11.9-14.4 :23 PT INR 1.1 (Normal) PTP 13.5 s (Normal) Range: 11.9-14.4 :24 PT INR 1.2 (Normal) PTP 14.5 s (Abnormal) Range: 11.9-14.4 30-Gsw-96100:23 PT INR 3.1 (Normal) PTP 30.3 s (Abnormal) Range: 11.9-14.4 :11 PT INR 2.7 (Normal) PTP 27.2 s (Abnormal) Range: 11.9-14.4 :02 CMP GAP 9 (Normal) Range: 5-15 CO2 29.0 mmol/L (Normal) Range: 21.0-32.0 CL 104 mmol/L (Normal) Range: 98-107 K 3.6 mmol/L (Normal) Range: 3.5-5.1 NA 142 mmol/L (Normal) Range: 136-145 BIT 1.20 mg/dL (Abnormal) Range: 0.00-1.00 ALT 34 U/L (Normal) Range: 12-78 ALK 80 U/L (Normal) Range: 50-136 AST 23 U/L (Normal) Range: 15-37 CA 9.0 mg/dL (Normal) Range: 8.5-10.1 AG 1.7 {RATIO} (Normal) Range: 0.9-2.4 GLOB 2.5 g/dL (Abnormal) Range: 2.7-4.2 ALB 4.2 g/dL (Normal) Range: 3.4-5.0 TPROT 6.7 g/dL (Normal) Range: 6.4-8.2 BC 11.4 {RATIO} (Normal) Range: 10-20 GFRAA 109 mL/min (Normal) GFR 90 mL/min (Normal) CREAT 0.7 mg/dL (Normal) Range: 0.6-1.0 BUN 8 mg/dL (Normal) Range: 7-18 GLU 78 mg/dL (Normal) Range: 70-110 :02 LIPID CHOL 227 mg/dL (Abnormal) Comments: <200 mg/dL Wxrdwisyi381-659 mg/dL Borderline>240 mg/dL High Risk HDL 81 mg/dL (Normal) Comments: Reference RangeHDL <40 mg/dL Low HDL CholesterolHDL >or= 60 mg/dL High HDL Cholesterol LDL 133 mg/dL (Abnormal) Range: 0-130 TRIG 65 mg/dL (Normal) Range: 0-199 Comments: Serum Triglycerides Reference IntervalNormal <150 mg/dLBorderline high 150 - 199 mg/dLHigh 200 - 499 mg/ dLVery High > or = 500 mg/dL VLDL 13 mg/dL (Normal) Range: 5-40 :02 PT INR 2.7 (Normal) PTP 27.0 s (Abnormal) Range: 11.9-14.4 :07 PT INR 1.9 (Normal) PTP 20.4 s (Abnormal) Range: 11.9-14.4 :10 PT INR 2.1 (Normal) PTP 22.0 s (Abnormal) Range: 11.9-14.4 :16 PT INR 2.3 (Normal) PTP 23.5 s (Abnormal) Range: 11.9-14.4 :05 PT INR 2.2 (Normal) PTP 22.9 s (Abnormal) Range: 11.9-14.4 :07 PT INR 4.0 (Abnormal) Comments: RESULTS CALLED TO PATRICE REPORT READ BACK BY SAME . PTP 36.3 s (Abnormal) Range: 11.9-14.4 :06 PT INR 3.0 (Normal) PTP 29.0 s (Abnormal) Range: 11.9-14.4 :07 PT INR 3.2 (Normal) PTP 31.1 s (Abnormal) Range: 11.9-14.4 :16 CBC Comments: DR Brambila ORDERED PT,CBC,CMPDR FAST ORDERED LIPID, CUUR MPV 12.2 fL (Abnormal) Range: 6.2-12.0 PLT 194 K/mm3 (Normal) Range: 150-450 RDWSD 42.1 fL (Normal) Range: 35.1-43.9 RDWCV 12.9 % (Normal) Range: 11.6-14.6 MCHC 36.0 g/dL (Normal) Range: 32-36 MCH 32.9 pg (Abnormal) Range: 27.0-32.0 MCV 91.5 fL (Normal) Range: 81-99 HCT 43.1 % (Normal) Range: 37-47 HGB 15.5 g/dL (Abnormal) Range: 12.0-15.0 RBC 4.71 {M/mm3} (Normal) Range: 4.2-5.4 WBC 5.1 {k/mm3} (Normal) Range: 4.4-11.0 :16 CMP Comments: DR Brambila ORDERED PT,CBC,CMPDR FAST ORDERED LIPID, CUUR GAP 9 (Normal) Range: 5-15 CO2 27.0 mmol/L (Normal) Range: 21.0-32.0 CL 108 mmol/L (Abnormal) Range: 98-107 K 3.9 mmol/L (Normal) Range: 3.5-5.1 NA 144 mmol/L (Normal) Range: 136-145 BIT 0.70 mg/dL (Normal) Range: 0.00-1.00 ALT 26 U/L (Normal) Range: 12-78 ALK 69 U/L (Normal) Range: 50-136 AST 18 U/L (Normal) Range: 15-37 CA 9.2 mg/dL (Normal) Range: 8.5-10.1 AG 1.4 {RATIO} (Normal) Range: 0.9-2.4 GLOB 3.0 g/dL (Normal) Range: 2.7-4.2 ALB 4.3 g/dL (Normal) Range: 3.4-5.0 TPROT 7.3 g/dL (Normal) Range: 6.4-8.2 BC 22.9 {RATIO} (Abnormal) Range: 10-20 GFRAA 109 mL/min (Normal) GFR 90 mL/min (Normal) CREAT 0.7 mg/dL (Normal) Range: 0.6-1.0 BUN 16 mg/dL (Normal) Range: 7-18 GLU 88 mg/dL (Normal) Range: 70-110 :16 CUUR Comments: DR Brambila ORDERED PT,CBC,CMPDR FAST ORDERED LIPID, CUUR URC See Note {CFU/mL} (Normal) Comments: COLONY COUNT 25,000- 50,000 ORGANISM 1: MIXED GRAM POSITIVE ORGANISMS :16 LIPID Comments: DR Brambila ORDERED PT,CBC,CMPDR FAST ORDERED LIPID, CUUR VLDL 14 mg/dL (Normal) Range: 5-40 LDL 142 mg/dL (Abnormal) Range: 0-130 HDL 73 mg/dL (Normal) Comments: Reference RangeHDL <40 mg/dL Low HDL CholesterolHDL >or= 60 mg/dL High HDL Cholesterol TRIG 72 mg/dL (Normal) Comments: Serum Triglycerides Reference IntervalNormal <150 mg/dLBorderline high 150 - 199 mg/dLHigh 200 - 499 mg/ dLVery High > or = 500 mg/dL CHOL 229 mg/dL (Abnormal) Comments: <200 mg/dL Tvdxfntoi845-375 mg/dL Borderline>240 mg/dL High Risk :16 PT Comments: DR Brambila ORDERED PT,CBC,CMPDR FAST ORDERED LIPID, CUUR INR 2.2 (Normal) PTP 22.7 s (Abnormal) Range: 11.9-14.4 :49 BILAT SCRN DIGITAL & CAD Radiology Report See Note Comments: MAMMOGRAPHY - BILATERAL SCREENING REASON FOR EXAM: Female, 61 years old. Routine annual screeningexamination. PERTINENT HISTORY: Non-contributory. TECHNIQUE: Digital examination. Mediolateral oblique (M (Normal) LO) andcraniocaudad(CC) views of both breasts were obtained. CAD: CAD was performed on thisstudy. COMPARISON: 09/21/11 FINDINGS:Greater than 25% fibroglandular tissue. There are no dominant masses orsuspicious calcifications. Benign asymmetric density in the right breastisunchanged. Benign calcifications are unchanged. Please disregard the previous report for this angelique dy. IMPRESSION:Stable bilateral screening mammogram. Yearly follow-up recommended. (A) ASSESSMENT CATEGORY:BIRADS Category 2: Benig n finding(s). A letter regarding these resultswillbe sent to the patient by the facility within 30 days. Approximately 10% of breast cancers are not detected by mammography. Anormal mammogram should not delay biopsy of a clinically suspiciousabnormality. Signed:Laith Rodriguez M.D.September 21, 2012 at 11:00:07 AM [id number] Signed RU/RU If you are the referring physician and would like to consult with theradiologist who provided this interpretation, please contact Austyn Styles. at [phone]. If this radiologist is unavailable, adabe directed to another radiologist to as sist. If you are a patient with a question regarding this report, pleasecontactyour referring physician directly. Professional Interpretation Provided By: [employer], Phone ,Fax These documents contain legally protected and confidential healthinformation intended only for the use of the individual or entity namedabove. If you are not the intended recipient, you are hereby n otifiedthatany disclosure, copying, distribution, or other use of these documents isstrictly prohibited. If you have received this information in error,pleasenotify the sender immediately and arrange fo r the return or destructionofthese documents. Dictated on 09/21/12 1100 by Laith RodriguezTranscribed on 09/21/12 1105 by ITS IMPORTSign by Laith Rdoriguez on 09/21/12 1106 Sign by: Laith Rodriguez [id number] CUUR URC See Note (Normal) Comments: This is an amended result. A prior result that was reported as final has been changed.09/07/12 1448 by NSTANSLOSPreviously reported as: FINAL COLONY COUNT <1000 ORGANISM 1: MIXED GRAM POSITIVE ORGANISMS 5-Knz-352079:40 LYMEWB ySDVDSIX76R Absent (Normal) tLYMWBINTM Negative (Normal) Comments: Note: An equivocal or positive EIA result followed by anegative Western Blot result is considered NEGATIVE. Anequivocal or positive EIA result followed by a positiveWestern Blot is considered POSITIVE b y the CDC..Positive: 2 of the following bands: 23,39 or 41Negative: No bands or banding patterns which do not meetpositive criteria.Criteria for positivity are those recommended byCDC/ASTPHLD. p23=Osp C , f88=woyhjrjdm.Note:Sera from individuals with the following may cross reactin the Lyme Western Blot assays: other spirochetal diseases(periodontal disease, leptospirosis, relapsing fever, yaws,and pin ta); connective autoimmune (Rheumatoid Arthritis andSystemic Lupus Erythematosus and also individuals withAntinuclear Antibody); other infections (Angel MountainSpotted Fever; Desirae-Camargo Virus, and Cy tomegalovirus)..Performed at: [facility] [employer] [id number] Director: Juan Ontiveros MD, Phone: [phone] gGGDFVJZ13P Absent (Normal) zKTDRPDP75F Absent (Normal) hAMVQNZU04L Absent (Normal) jUQAHJXN03S Absent (Normal) tLYMWBINTG Negative (Normal) Comments: Positive: 5 of the followingBorrelia- specific bands:18,23,28,30,39,41,45,58,66, and 93.Negative: No bands or bandingpatterns which do notmeet positive criteria. qBXTTYVG62J Absent (Normal) yAQNCYJZ20X Absent (Normal) pZMDSPEY36P Absent (Normal) gRTTMAGE36J Present (Abnormal) sUBQNEDJ31J Absent (Normal) dDKDHNOW30M Absent (Normal) nGNKVTGB06D Absent (Normal) rUULLNKA51S Absent (Normal) :03 PT INR 2.9 (Normal) PTP 28.1 s (Abnormal) Range: 11.9-14.4 46-Dfg-753173:12 Microscopic Examination Comments: PATIENT NOT FASTINGPERFORMED BY: [facility] [facility] [id number] Bacteria Few (Normal) Mucus Threads Present (Normal) Epithelial Cells (non renal) 0-10 {/hpf} (Normal) Range: 0 - 10 RBC None seen {/hpf} (Normal) Range: 0 - 3 WBC None seen {/hpf} (Normal) Range: 0 - 5 39-Fdg-379265:12 Lyme Disease Antibody W/ Comments: PATIENT NOT FASTINGPERFORMED BY: [facility] [facility] [id number] Reflex ([id number]) Lyme Ab Interp.,EIA Negative (Normal) Lyme IgG/IgM Ab <0.91 {index} (Normal) Range: 0.00-0.90 Comments: Negative <0.91 Equivocal 0.91 - 1.09 Positive >1.09 Note: The [facility] curren tly advises that Western blot testing be performed following all equivocal or positive EIA results. Final diagnosis should include appropriate clinical findi ngs and a positive EIA which is also positive by Western blot. :12 SED RATE ERYTHROCYTE ([id number]) Comments: PATIENT NOT FASTINGPERFORMED BY: [facility] [facility] [id number] Sedimentation Rate-Westergren 2 mm/h (Normal) Range: 0-40 :12 C-REACTIVE PROTEIN ([id number]) Comments: PATIENT NOT FASTINGPERFORMED BY: [facility] [facility] [id number] C-Reactive Protein, Quant 0.7 mg/L (Normal) Range: 0.0-4.9 :12 URINALYSIS, W/ MICRO (82302) Comments: PATIENT NOT FASTINGPERFORMED BY: [facility] [facility] [id number] Microscopic Examination See below: (Normal) Nitrite, Urine Negative (Normal) Urobilinogen,Semi-Qn 0.2 mg/dL (Normal) Range: 0.0-1.9 Bilirubin Negative (Normal) Occult Blood Negative (Normal) Ketones 3+ (Abnormal) Glucose Negative (Normal) Protein 1+ (Abnormal) WBC Esterase Negative (Normal) Appearance Clear (Normal) Urine-Color Yellow (Normal) pH 6.0 (Normal) Range: 5.0-7.5 Specific [place] 1.025 (Normal) Range: 1.005-1.030 :12 TSH ([id number]) Comments: PATIENT NOT FASTINGPERFORMED BY: [facility] [facility] [id number] TSH 2.400 {uIU/mL} (Normal) Range: 0.450-4.500 28-Ouw-860121:12 METABOLIC PANEL, COMPREHENSIVE Comments: PATIENT NOT FASTINGPERFORMED BY: [employer] [facility] [facility] [id number] ([id number]) ALT (SGPT) 19 [iU]/L (Normal) Range: 0-32 AST (SGOT) 19 [iU]/L (Normal) Range: 0-40 Alkaline Phosphatase, S 90 [iU]/L (Normal) Range: 25-165 Bilirubin, Total 1.0 mg/dL (Normal) Range: 0.0-1.2 A/G Ratio 2.4 (Normal) Range: 1.1-2.5 Globulin, Total 2.1 g/dL (Normal) Range: 1.5-4.5 Albumin, Serum 5.0 g/dL (Abnormal) Range: 3.6-4.8 Protein, Total, Serum 7.1 g/dL (Normal) Range: 6.0-8.5 Calcium, Serum 9.3 mg/dL (Normal) Range: 8.6-10.2 Carbon Dioxide, Total 20 mmol/L (Normal) Range: 20-32 Chloride, Serum 103 mmol/L (Normal) Range: 97-108 Potassium, Serum 4.0 mmol/L (Normal) Range: 3.5-5.2 Sodium, Serum 141 mmol/L (Normal) Range: 134-144 BUN/Creatinine Ratio 26 (Normal) Range: 11-26 eGFR If Africn Am 107 mL/min/1.73 (Normal) eGFR If NonAfricn Am 93 mL/min/1.73 (Normal) Creatinine, Serum 0.70 mg/dL (Normal) Range: 0.57-1.00 BUN 18 mg/dL (Normal) Range: 8-27 Glucose, Serum 91 mg/dL (Normal) Range: 65-99 41-Sbj-867592:12 CBC WITH MANUAL DIFF Comments: PATIENT NOT FASTINGPERFORMED BY: [employer] [facility] CompanyUN[facility] CenterWtybzt[address] [facility] [id number] Information: [id number] ([id number]) Immature Grans (Abs) 0.0 {x10E3/uL} (Normal) Range: 0.0-0.1 Immature Granulocytes 0 % (Normal) Range: 0-2 Baso (Absolute) 0.0 {x10E3/uL} (Normal) Range: 0.0-0.2 Eos (Absolute) 0.0 {x10E3/uL} (Normal) Range: 0.0-0.4 Monocytes(Absolute) 0.3 {x10E3/uL} (Normal) Range: 0.1-1.0 Lymphs (Absolute) 1.3 {x10E3/uL} (Normal) Range: 0.7-4.5 Neutrophils (Absolute) 4.4 {x10E3/uL} (Normal) Range: 1.8-7.8 Basos 1 % (Normal) Range: 0-3 Eos 0 % (Normal) Range: 0-7 Monocytes 5 % (Normal) Range: 4-13 Lymphs 22 % (Normal) Range: 14-46 Neutrophils 72 % (Normal) Range: 40-74 Platelets 210 {x10E3/uL} (Normal) Range: 140-415 RDW 13.5 % (Normal) Range: 12.3-15.4 MCHC 35.3 g/dL (Normal) Range: 31.5-35.7 MCH 32.7 pg (Normal) Range: 26.6-33.0 MCV 93 fL (Normal) Range: 79-97 Hematocrit 41.7 % (Normal) Range: 34.0-46.6 Hemoglobin 14.7 g/dL (Normal) Range: 11.1-15.9 RBC 4.49 {x10E6/uL} (Normal) Range: 3.77-5.28 WBC 6.1 {x10E3/uL} (Normal) Range: 4.0-10.5 :17 PT INR 2.3 (Normal) PTP 23.6 s (Abnormal) Range: 11.9-14.4 :05 PT INR 1.8 (Normal) PTP 19.9 s (Abnormal) Range: 11.9-14.4 :10 PT INR 2.7 (Normal) PTP 26.7 s (Abnormal) Range: 11.9-14.4 :04 PT INR 1.9 (Normal) PTP 20.6 s (Abnormal) Range: 11.9-14.4 :14 PT INR 2.4 (Normal) PTP 24.4 s (Abnormal) Range: 11.9-14.4 :10 PT INR 2.4 (Normal) PTP 24.1 s (Abnormal) Range: 11.9-14.4 :59 PT INR 2.8 (Normal) PTP 27.3 s (Abnormal) Range: 11.9-14.4 :05 PT INR 3.4 (Normal) PTP 31.1 s (Abnormal) Range: 11.9-14.4 :18 PT INR 4.3 (Abnormal) PTP 37.2 s (Abnormal) Range: 11.9-14.4 :35 PT INR 2.2 (Normal) PTP 23.0 s (Abnormal) Range: 11.9-14.4 :33 PT INR 1.2 (Normal) PTP 14.0 s (Normal) Range: 11.9-14.4 :12 CBCMD RBCM NORM C+C {NORMAL} (Normal) PE ADEQUATE (Normal) EOS 1 % (Normal) Range: 0-5 MON 4 % (Normal) Range: 0-10 LYMPH 46 % (Abnormal) Range: 19-41 BAND 1 % (Normal) Range: 0-5 PMN 48 % (Normal) Range: 47-70 SHERRI 100 (Normal) ANC 1.7 3/uL (Abnormal) Range: 2.0-7.7 PLT 223 K/mm3 (Normal) Range: 150-450 RDW 12.8 % (Normal) Range: 11.6-14.6 MCHC 34.3 g/dL (Normal) Range: 32-36 MCH 33.3 pg (Abnormal) Range: 27.0-32.0 MCV 97.1 fL (Normal) Range: 81-99 HCT 41.5 % (Normal) Range: 37-47 HGB 14.3 g.dL (Normal) Range: 12.0-15.0 RBC 4.28 {M/mm3} (Normal) Range: 4.2-5.4 WBC 4.0 K/mm3 (Abnormal) Range: 4.4-11.0 :12 CMP GAP 8 (Normal) Range: 5-15 CO2 27.0 mmol/L (Normal) Range: 21.0-32.0 CL 105 mmol/L (Normal) Range: 98-107 K 4.2 mmol/L (Normal) Range: 3.5-5.1 NA 140 mmol/L (Normal) Range: 136-145 ALT 19 U/L (Normal) Range: 12-78 BIT 1.00 mg/dL (Normal) Range: 0.00-1.00 ALK 74 U/L (Normal) Range: 50-136 AST 13 U/L (Abnormal) Range: 15-37 CA 8.9 mg/dL (Normal) Range: 8.5-10.1 AG 1.5 {RATIO} (Normal) Range: 0.9-2.4 GLOB 2.7 g/dL (Normal) Range: 2.7-4.2 ALB 4.1 g/dL (Normal) Range: 3.4-5.0 TPROT 6.8 g/dL (Normal) Range: 6.4-8.2 BC 30.0 {RATIO} (Abnormal) Range: 10-20 GFRAA 131 mL/min (Normal) GFR 108 mL/min (Normal) CREAT 0.6 mg/dL (Normal) Range: 0.6-1.0 BUN 18 mg/dL (Normal) Range: 7-18 GLU 85 mg/dL (Normal) Range: 70-110 :12 LIPID VLDL 9 mg/dL (Normal) Range: 5-40 LDL 119 mg/dL (Normal) Range: 0-130 HDL 73 mg/dL (Normal) Comments: Reference Range HDL <40 mg/dL Low HDL Cholesterol HDL >or= 60 mg/dL High HDL Cholesterol TRIG 44 mg/dL (Normal) Comments: Serum Triglycerides Reference Interval Normal <150 mg/dL Borderline high 150 - 199 mg/dL High 200 - 499 mg/dL Very High > or = 500 mg/dL CHOL 201 mg/dL (Abnormal) Comments: <200 mg/dL Desirable 200-240 mg/dL Borderline >240 mg/dL High Risk :12 PT INR 1.0 (Normal) PTP 12.8 s (Normal) Range: 11.9-14.4 :12 PTT PTTP 32.1 s (Normal) Range: 24.1-36.2 :12 TSH 2.44 {uIU/mL} (Normal) Range: 0.358-3.74 :12 UAC UMUC 0 SEEN {/hpf} (Normal) UBAC 0 SEEN {/hpf} (Normal) UEPIS 0-5 SEEN {/hpf} (Normal) Range: 5-10 URBC 0 SEEN {/hpf} (Normal) Range: 0-5 UWBC 0-5 SEEN {/hpf} (Normal) Range: 0-5 PAM 100 /ul (Abnormal) UOB Negative /ul (Normal) LEAH Negative (Normal) UROBU Normal mg/dL (Normal) uPROTU Negative mg/dL (Normal) DEON 6.0 (Normal) Range: 5.0 - 8.0 SGU 1.020 (Normal) Range: 1.002-1.030 KETU Negative mg/dL (Normal) BILIU Negative mg/dL (Normal) GLUR Normal mg/dL (Normal) UCLAR Clear (Normal) UCOL Yellow (Normal) :12 VITD 34.0 ng/mL (Normal) Range: 30.0-100.0 Comments: Vitamin D deficiency has been defined by the [place] ofMedicine and an Endocrine Society practice guideline as alevel of serum 25-OH vitamin D less than 20 ng/mL (1,2).The Endocrine Society went on to further define vitamin Dinsufficiency as a level between 21 and 29 ng/mL (2).1. IOM ([place] of Medicine). 2010. Dietary reference intakes for calcium and D. [place]: The National Academies Press.2. Ana MF, Heriberto [place], Jayla BECKFORD, et al. Evaluation, treatment, and prevention of vitamin D deficiency: an Endocrine Society clinical practice guideline. JCEM. 2010; 96(7): 1911-30.Performed at: [address] [id number] Director: Narendra Covarrubias PhD, Phone: [phone] Plan of Care Name Dates Details Instructions History of DVT (deep vein thrombosis) : Follow up if no improvement or if symptoms worsen Indication: History of DVT (deep vein thrombosis) Left leg pain : Follow up if no improvement or if symptoms worsen Indication: Left leg pain BMI 22.0-22.9, adult : Eprescribed prescriptions (G8553) Indication: BMI 22.0-22.9, adult BMI 22.0-22.9, adult : Follow up in 3 months Indication: BMI 22.0-22.9, adult Nonsmoker : Eprescribed prescriptions (G8553) Indication: Nonsmoker BMI 21.0-21.9, adult : Follow up in 6 months Indication: BMI 21.0-21.9, adult Annual Medicare Phyiscal WITHOUT abnormal findings (Renamed from Encounter for general adult medical examination without abnormal findings) : fall reduction handout Indication: Annual Medicare Phyiscal WITHOUT abnormal findings (Renamed from Encounter for general adult medical examination without abnormal findings) Annual Medicare Phyiscal WITHOUT abnormal findings (Renamed from Encounter for general adult medical examination without abnormal findings) : elderly packet given Indication: Annual Medicare Phyiscal WITHOUT abnormal findings (Renamed from Encounter for general adult medical examination without abnormal findings) Annual Medicare Phyiscal WITHOUT abnormal findings (Renamed from Encounter for general adult medical examination without abnormal findings) : advance planning information Indication: Annual Medicare Phyiscal WITHOUT abnormal findings (Renamed from Encounter for general adult medical examination without abnormal findings) Nonsmoker : Eprescribed prescriptions (G8553) Indication: Nonsmoker Chest tightness : Continue Current Prescription(s) Indication: Chest tightness Chest tightness : Follow up if no improvement or if symptoms worsen Indication: Chest tightness Nonsmoker : Eprescribed prescriptions (G8553) Indication: Nonsmoker BMI 22.0-22.9, adult : Eprescribed prescriptions (G8553) Indication: BMI 22.0-22.9, adult Encounter for annual general medical examination with abnormal findings in adult : fall reduction handout Indication: Encounter for annual general medical examination with abnormal findings in adult Encounter for annual general medical examination with abnormal findings in adult : elderly packet given Indication: Encounter for annual general medical examination with abnormal findings in adult Encounter for annual general medical examination with abnormal findings in adult : advance planning information Indication: Encounter for annual general medical examination with abnormal findings in adult BMI 21.0-21.9, adult : Follow up in 6 months Indication: BMI 21.0-21.9, adult Encounter for annual general medical examination with abnormal findings in adult : Reviewed Diagnostic Tests Indication: Encounter for annual general medical examination with abnormal findings in adult Sinusitis : Follow up if no improvement or if symptoms worsen Indication: Sinusitis Cough : *URI Treatment Indication: Cough Cough : *URI Symptoms Indication: Cough Cough : *Antibiotic Usage Education - Female Indication: Cough Cough : Eprescribed prescriptions (G8553) Indication: Cough Body mass index (BMI) of 20 to 24 : Follow up in 3 months Indication: Body mass index (BMI) of 20 to 24 Irritable Bowel Syndrome : Eprescribed prescriptions (G8553) Indication: Irritable Bowel Syndrome Encounter for Medicare annual wellness exam : Eprescribed prescriptions (G8553) Indication: Encounter for Medicare annual wellness exam Pre-operative examination : Eprescribed prescriptions (G8553) Indication: Pre-operative examination Edema : Eprescribed prescriptions (G8553) Indication: Edema Benign Essential Hypertension : Diet, Exercise, and Wt loss Indication: Benign Essential Hypertension Hyperlipidemia : Diet, Exercise, and Wt loss Indication: Hyperlipidemia bullseye rash- tick bite /concern for lyme disease : *Antibiotic Usage Education - Female Indication: bullseye rash- tick bite /concern for lyme disease Osteoporosis : Osteoporosis in Women *: bone loss Indication: Osteoporosis Osteoporosis : Osteoporosis in Women *: bone density Indication: Osteoporosis Planned Observations CBC, Platelets & Auto Diff ([id number])Indication: Leukopenia On: : Request CBC, Platelets & Auto Diff ([id number])Indication: Leukopenia On: : Request CBC, Platelets & Auto Diff ([id number])Indication: Leukopenia On: 13-Mar-2042 Request CBC, Platelets & Auto Diff ([id number])Indication: Leukopenia On: : Request CBC, Platelets & Auto Diff ([id number])Indication: Leukopenia On: : Request CBC, Platelets & Auto Diff ([id number])Indication: Leukopenia On: : Request CBC, Platelets & Auto Diff ([id number])Indication: Leukopenia On: 18-Mar-2041 Request CBC, Platelets & Auto Diff ([id number])Indication: Leukopenia On: : Request CBC, Platelets & Auto Diff ([id number])Indication: Leukopenia On: : Request CBC, Platelets & Auto Diff ([id number])Indication: Leukopenia On: : Request CBC, Platelets & Auto Diff ([id number])Indication: Leukopenia On: 23-Mar-2040 Request CBC, Platelets & Auto Diff (36410)Indication: Leukopenia On: :00 Request CBC, Platelets & Auto Diff ([id number])Indication: Leukopenia On: :00 Request CBC, Platelets & Auto Diff ([id number])Indication: Leukopenia On: :00 Request CBC, Platelets & Auto Diff ([id number])Indication: Leukopenia On: 29-Mar-2039 Request CBC, Platelets & Auto Diff ([id number])Indication: Leukopenia On: : Request CBC, Platelets & Auto Diff ([id number])Indication: Leukopenia On: : Request CBC, Platelets & Auto Diff ([id number])Indication: Leukopenia On: : Request CBC, Platelets & Auto Diff (51776)Indication: Leukopenia On: 03-Apr-2038 Request CBC, Platelets & Auto Diff ([id number])Indication: Leukopenia On: :00 Request CBC, Platelets & Auto Diff ([id number])Indication: Leukopenia On: :00 Request CBC, Platelets & Auto Diff ([id number])Indication: Leukopenia On: :00 Request CBC, Platelets & Auto Diff ([id number])Indication: Leukopenia On: 08-Apr-2037 Request CBC, Platelets & Auto Diff ([id number])Indication: Leukopenia On: :00 Request CBC, Platelets & Auto Diff ([id number])Indication: Leukopenia On: :00 Request CBC, Platelets & Auto Diff ([id number])Indication: Leukopenia On: :00 Request CBC, Platelets & Auto Diff ([id number])Indication: Leukopenia On: 13-Apr-2036 Request CBC, Platelets & Auto Diff ([id number])Indication: Leukopenia On: :00 Request CBC, Platelets & Auto Diff ([id number])Indication: Leukopenia On: : Request CBC, Platelets & Auto Diff ([id number])Indication: Leukopenia On: :00 Request CBC, Platelets & Auto Diff ([id number])Indication: Leukopenia On: 19-Apr-2035 Request CBC, Platelets & Auto Diff ([id number])Indication: Leukopenia On: :00 Request CBC, Platelets & Auto Diff ([id number])Indication: Leukopenia On: : Request CBC, Platelets & Auto Diff ([id number])Indication: Leukopenia On: : Request CBC, Platelets & Auto Diff ([id number])Indication: Leukopenia On: 24-Apr-2034 Request CBC, Platelets & Auto Diff ([id number])Indication: Leukopenia On: : Request CBC, Platelets & Auto Diff ([id number])Indication: Leukopenia On: : Request CBC, Platelets & Auto Diff ([id number])Indication: Leukopenia On: : Request CBC, Platelets & Auto Diff ([id number])Indication: Leukopenia On: 29-Apr-2033 Request CBC, Platelets & Auto Diff ([id number])Indication: Leukopenia On: : Request CBC, Platelets & Auto Diff ([id number])Indication: Leukopenia On: :00 Request CBC, Platelets & Auto Diff ([id number])Indication: Leukopenia On: :00 Request CBC, Platelets & Auto Diff ([id number])Indication: Leukopenia On: 04-May-2032 Request CBC, Platelets & Auto Diff ([id number])Indication: Leukopenia On: : Request CBC, Platelets & Auto Diff ([id number])Indication: Leukopenia On: : Request CBC, Platelets & Auto Diff ([id number])Indication: Leukopenia On: :00 Request CBC, Platelets & Auto Diff ([id number])Indication: Leukopenia On: 10-May-2031 Request CBC, Platelets & Auto Diff ([id number])Indication: Leukopenia On: 09-Feb-2031 Request CBC, Platelets & Auto Diff ([id number])Indication: Leukopenia On: :00 Request CBC, Platelets & Auto Diff ([id number])Indication: Leukopenia On: : Request CBC, Platelets & Auto Diff ([id number])Indication: Leukopenia On: 15-May-2030 Request CBC, Platelets & Auto Diff ([id number])Indication: Leukopenia On: 14-Feb-2030 Request CBC, Platelets & Auto Diff ([id number])Indication: Leukopenia On: :00 Request CBC, Platelets & Auto Diff ([id number])Indication: Leukopenia On: :00 Request CBC, Platelets & Auto Diff ([id number])Indication: Leukopenia On: 20-May-2029 Request CBC, Platelets & Auto Diff ([id number])Indication: Leukopenia On: 19-Feb-2029 Request CBC, Platelets & Auto Diff ([id number])Indication: Leukopenia On: :00 Request CBC, Platelets & Auto Diff ([id number])Indication: Leukopenia On: : Request CBC, Platelets & Auto Diff ([id number])Indication: Leukopenia On: 25-May-2028 Request CBC, Platelets & Auto Diff ([id number])Indication: Leukopenia On: 25-Feb-2028 Request CBC, Platelets & Auto Diff ([id number])Indication: Leukopenia On: :00 Request CBC, Platelets & Auto Diff ([id number])Indication: Leukopenia On: :00 Request CBC, Platelets & Auto Diff ([id number])Indication: Leukopenia On: 31-May-2027 Request CBC, Platelets & Auto Diff ([id number])Indication: Leukopenia On: 02-Mar-2027 Request CBC, Platelets & Auto Diff ([id number])Indication: Leukopenia On: :00 Request CBC, Platelets & Auto Diff ([id number])Indication: Leukopenia On: :00 Request CBC, Platelets & Auto Diff ([id number])Indication: Leukopenia On: 05-Jun-2026 Request CBC, Platelets & Auto Diff ([id number])Indication: Leukopenia On: 07-Mar-2026 Request CBC, Platelets & Auto Diff ([id number])Indication: Leukopenia On: :00 Request CBC, Platelets & Auto Diff ([id number])Indication: Leukopenia On: :00 Request CBC, Platelets & Auto Diff ([id number])Indication: Leukopenia On: 10-Jun-2025 Request CBC, Platelets & Auto Diff ([id number])Indication: Leukopenia On: 12-Mar-2025 Request CBC, Platelets & Auto Diff ([id number])Indication: Leukopenia On: :00 Request CBC, Platelets & Auto Diff ([id number])Indication: Leukopenia On: :00 Request CBC, Platelets & Auto Diff ([id number])Indication: Leukopenia On: :00 Request CBC, Platelets & Auto Diff ([id number])Indication: Leukopenia On: 17-Mar-2024 Request CBC, Platelets & Auto Diff ([id number])Indication: Leukopenia On: :00 Request CBC, Platelets & Auto Diff ([id number])Indication: Leukopenia On: : Request CBC, Platelets & Auto Diff ([id number])Indication: Leukopenia On: : Request CBC, Platelets & Auto Diff ([id number])Indication: Leukopenia On: 23-Mar-2023 Request CBC, Platelets & Auto Diff ([id number])Indication: Leukopenia On: :00 Request CBC, Platelets & Auto Diff ([id number])Indication: Leukopenia On: :00 Request CBC, Platelets & Auto Diff ([id number])Indication: Leukopenia On: :00 Request CBC, Platelets & Auto Diff ([id number])Indication: Leukopenia On: 28-Mar-2022 Request CBC, Platelets & Auto Diff ([id number])Indication: Leukopenia On: :00 Request CBC, Platelets & Auto Diff ([id number])Indication: Leukopenia On: :00 Request CBC, Platelets & Auto Diff ([id number])Indication: Leukopenia On: :00 Request CBC, Platelets & Auto Diff ([id number])Indication: Leukopenia On: 02-Apr-2021 Request CBC, Platelets & Auto Diff ([id number])Indication: Leukopenia On: :00 Request CBC, Platelets & Auto Diff ([id number])Indication: Leukopenia On: :00 Request CBC, Platelets & Auto Diff ([id number])Indication: Leukopenia On: :00 Request CBC, Platelets & Auto Diff ([id number])Indication: Leukopenia On: 07-Apr-2020 Request CBC, Platelets & Auto Diff ([id number])Indication: Leukopenia On: 08-Jan-2020 Request CBC, Platelets & Auto Diff ([id number])Indication: Leukopenia On: 10-Oct-2019 Request CBC, Platelets & Auto Diff ([id number])Indication: Leukopenia On: 12-Jul-2019 Request CBC, Platelets & Auto Diff ([id number])Indication: Leukopenia On: 13-Apr-2019 Request PT (PROTHROMBIN TIME) ([id number]) : standing orderIndication: History of DVT (deep vein thrombosis) On: 02-Mar-2019 Request Comments: standing order PT (PROTHROMBIN TIME) ([id number]) : standing orderIndication: History of DVT (deep vein thrombosis) On: 01-Mar-2019 Request Comments: standing order PT (PROTHROMBIN TIME) ([id number]) : standing orderIndication: History of DVT (deep vein thrombosis) On: 28-Feb-2019 Request Comments: standing order PT (PROTHROMBIN TIME) ([id number]) : standing orderIndication: History of DVT (deep vein thrombosis) On: 27-Feb-2019 Request Comments: standing order PT (PROTHROMBIN TIME) ([id number]) : standing orderIndication: History of DVT (deep vein thrombosis) On: 26-Feb-2019 Request Comments: standing order PT (PROTHROMBIN TIME) ([id number])Indication: History of DVT (deep vein thrombosis) On: 25-Feb-2019 Request PT (PROTHROMBIN TIME) ([id number]) : standing orderIndication: History of DVT (deep vein thrombosis) On: 25-Feb-2019 Request Comments: standing order PT (PROTHROMBIN TIME) ([id number]) : standing orderIndication: History of DVT (deep vein thrombosis) On: 25-Feb-2019 Request Comments: standing order PT (PROTHROMBIN TIME) ([id number]) : standing orderIndication: History of DVT (deep vein thrombosis) On: 24-Feb-2019 Request Comments: standing order PT (PROTHROMBIN TIME) ([id number]) : standing orderIndication: History of DVT (deep vein thrombosis) On: 23-Feb-2019 Request Comments: standing order PT (PROTHROMBIN TIME) ([id number]) : standing orderIndication: History of DVT (deep vein thrombosis) On: 22-Feb-2019 Request Comments: standing order PT (PROTHROMBIN TIME) ([id number]) : standing orderIndication: History of DVT (deep vein thrombosis) On: 21-Feb-2019 Request Comments: standing order PT (PROTHROMBIN TIME) ([id number]) : standing orderIndication: History of DVT (deep vein thrombosis) On: 20-Feb-2019 Request Comments: standing order PT (PROTHROMBIN TIME) ([id number]) : standing orderIndication: History of DVT (deep vein thrombosis) On: 19-Feb-2019 Request Comments: standing order PT (PROTHROMBIN TIME) ([id number]) : standing orderIndication: History of DVT (deep vein thrombosis) On: 18-Feb-2019 Request Comments: standing order PT (PROTHROMBIN TIME) ([id number]) : standing orderIndication: History of DVT (deep vein thrombosis) On: 17-Feb-2019 Request Comments: standing order PT (PROTHROMBIN TIME) ([id number]) : standing orderIndication: History of DVT (deep vein thrombosis) On: 16-Feb-2019 Request Comments: standing order PT (PROTHROMBIN TIME) ([id number]) : standing orderIndication: History of DVT (deep vein thrombosis) On: 15-Feb-2019 Request Comments: standing order PT (PROTHROMBIN TIME) ([id number]) : standing orderIndication: History of DVT (deep vein thrombosis) On: 14-Feb-2019 Request Comments: standing order PT (PROTHROMBIN TIME) ([id number]) : standing orderIndication: History of DVT (deep vein thrombosis) On: 13-Feb-2019 Request Comments: standing order PT (PROTHROMBIN TIME) ([id number]) : standing orderIndication: History of DVT (deep vein thrombosis) On: 12-Feb-2019 Request Comments: standing order PT (PROTHROMBIN TIME) ([id number]) : standing orderIndication: History of DVT (deep vein thrombosis) On: 11-Feb-2019 Request Comments: standing order PT (PROTHROMBIN TIME) ([id number]) : standing orderIndication: History of DVT (deep vein thrombosis) On: 10-Feb-2019 Request Comments: standing order PT (PROTHROMBIN TIME) ([id number]) : standing orderIndication: History of DVT (deep vein thrombosis) On: 09-Feb-2019 Request Comments: standing order PT (PROTHROMBIN TIME) ([id number]) : standing orderIndication: History of DVT (deep vein thrombosis) On: 08-Feb-2019 Request Comments: standing order PT (PROTHROMBIN TIME) ([id number]) : standing orderIndication: History of DVT (deep vein thrombosis) On: 07-Feb-2019 Request Comments: standing order PT (PROTHROMBIN TIME) ([id number]) : standing orderIndication: History of DVT (deep vein thrombosis) On: 06-Feb-2019 Request Comments: standing order PT (PROTHROMBIN TIME) ([id number]) : standing orderIndication: History of DVT (deep vein thrombosis) On: 05-Feb-2019 Request Comments: standing order PT (PROTHROMBIN TIME) ([id number]) : standing orderIndication: History of DVT (deep vein thrombosis) On: 04-Feb-2019 Request Comments: standing order PT (PROTHROMBIN TIME) ([id number]) : standing orderIndication: History of DVT (deep vein thrombosis) On: 03-Feb-2019 Request Comments: standing order PT (PROTHROMBIN TIME) ([id number]) : standing orderIndication: History of DVT (deep vein thrombosis) On: 02-Feb-2019 Request Comments: standing order PT (PROTHROMBIN TIME) ([id number]) : standing orderIndication: History of DVT (deep vein thrombosis) On: 01-Feb-2019 Request Comments: standing order PT (PROTHROMBIN TIME) ([id number]) : standing orderIndication: History of DVT (deep vein thrombosis) On: 31-Jan-2019 Request Comments: standing order PT (PROTHROMBIN TIME) ([id number]) : standing orderIndication: History of DVT (deep vein thrombosis) On: 30-Jan-2019 Request Comments: standing order PT (PROTHROMBIN TIME) ([id number]) : standing orderIndication: History of DVT (deep vein thrombosis) On: 29-Jan-2019 Request Comments: standing order PT (PROTHROMBIN TIME) ([id number]) : standing orderIndication: History of DVT (deep vein thrombosis) On: 28-Jan-2019 Request Comments: standing order PT (PROTHROMBIN TIME) ([id number]) : standing orderIndication: History of DVT (deep vein thrombosis) On: 27-Jan-2019 Request Comments: standing order PT (PROTHROMBIN TIME) ([id number])Indication: History of DVT (deep vein thrombosis) On: 26-Jan-2019 Request PT (PROTHROMBIN TIME) ([id number]) : standing orderIndication: History of DVT (deep vein thrombosis) On: 26-Jan-2019 Request Comments: standing order PT (PROTHROMBIN TIME) ([id number]) : standing orderIndication: History of DVT (deep vein thrombosis) On: 26-Jan-2019 Request Comments: standing order PT (PROTHROMBIN TIME) ([id number]) : standing orderIndication: History of DVT (deep vein thrombosis) On: 25-Jan-2019 Request Comments: standing order PT (PROTHROMBIN TIME) ([id number]) : standing orderIndication: History of DVT (deep vein thrombosis) On: 24-Jan-2019 Request Comments: standing order PT (PROTHROMBIN TIME) ([id number]) : standing orderIndication: History of DVT (deep vein thrombosis) On: 23-Jan-2019 Request Comments: standing order PT (PROTHROMBIN TIME) ([id number]) : standing orderIndication: History of DVT (deep vein thrombosis) On: 22-Jan-2019 Request Comments: standing order PT (PROTHROMBIN TIME) ([id number]) : standing orderIndication: History of DVT (deep vein thrombosis) On: 21-Jan-2019 Request Comments: standing order PT (PROTHROMBIN TIME) ([id number]) : standing orderIndication: History of DVT (deep vein thrombosis) On: 20-Jan-2019 Request Comments: standing order PT (PROTHROMBIN TIME) ([id number]) : standing orderIndication: History of DVT (deep vein thrombosis) On: 19-Jan-2019 Request Comments: standing order PT (PROTHROMBIN TIME) ([id number]) : standing orderIndication: History of DVT (deep vein thrombosis) On: 18-Jan-2019 Request Comments: standing order PT (PROTHROMBIN TIME) ([id number]) : standing orderIndication: History of DVT (deep vein thrombosis) On: 17-Jan-2019 Request Comments: standing order PT (PROTHROMBIN TIME) ([id number]) : standing orderIndication: History of DVT (deep vein thrombosis) On: 16-Jan-2019 Request Comments: standing order PT (PROTHROMBIN TIME) ([id number]) : standing orderIndication: History of DVT (deep vein thrombosis) On: 15-Jan-2019 Request Comments: standing order PT (PROTHROMBIN TIME) ([id number]) : standing orderIndication: History of DVT (deep vein thrombosis) On: 14-Jan-2019 Request Comments: standing order CBC, Platelets & Auto Diff ([id number])Indication: Leukopenia On: 13-Jan-2019 Request PT (PROTHROMBIN TIME) ([id number]) : standing orderIndication: History of DVT (deep vein thrombosis) On: 13-Jan-2019 Request Comments: standing order PT (PROTHROMBIN TIME) ([id number]) : standing orderIndication: History of DVT (deep vein thrombosis) On: 12-Jan-2019 Request Comments: standing order PT (PROTHROMBIN TIME) ([id number]) : standing orderIndication: History of DVT (deep vein thrombosis) On: 11-Jan-2019 Request Comments: standing order PT (PROTHROMBIN TIME) ([id number]) : standing orderIndication: History of DVT (deep vein thrombosis) On: 10-Jan-2019 Request Comments: standing order PT (PROTHROMBIN TIME) ([id number]) : standing orderIndication: History of DVT (deep vein thrombosis) On: 09-Jan-2019 Request Comments: standing order PT (PROTHROMBIN TIME) ([id number]) : standing orderIndication: History of DVT (deep vein thrombosis) On: 08-Jan-2019 Request Comments: standing order PT (PROTHROMBIN TIME) ([id number]) : standing orderIndication: History of DVT (deep vein thrombosis) On: 07-Jan-2019 Request Comments: standing order PT (PROTHROMBIN TIME) ([id number]) : standing orderIndication: History of DVT (deep vein thrombosis) On: 06-Jan-2019 Request Comments: standing order PT (PROTHROMBIN TIME) ([id number]) : standing orderIndication: History of DVT (deep vein thrombosis) On: 05-Jan-2019 Request Comments: standing order PT (PROTHROMBIN TIME) ([id number]) : standing orderIndication: History of DVT (deep vein thrombosis) On: 04-Jan-2019 Request Comments: standing order PT (PROTHROMBIN TIME) ([id number]) : standing orderIndication: History of DVT (deep vein thrombosis) On: 03-Jan-2019 Request Comments: standing order PT (PROTHROMBIN TIME) ([id number]) : standing orderIndication: History of DVT (deep vein thrombosis) On: 02-Jan-2019 Request Comments: standing order PT (PROTHROMBIN TIME) ([id number]) : standing orderIndication: History of DVT (deep vein thrombosis) On: 01-Jan-2019 Request Comments: standing order PT (PROTHROMBIN TIME) ([id number]) : standing orderIndication: History of DVT (deep vein thrombosis) On: 31-Dec-2018 Request Comments: standing order PT (PROTHROMBIN TIME) ([id number]) : standing orderIndication: History of DVT (deep vein thrombosis) On: 30-Dec-2018 Request Comments: standing order PT (PROTHROMBIN TIME) ([id number]) : standing orderIndication: History of DVT (deep vein thrombosis) On: 29-Dec-2018 Request Comments: standing order PT (PROTHROMBIN TIME) ([id number]) : standing orderIndication: History of DVT (deep vein thrombosis) On: 28-Dec-2018 Request Comments: standing order PT (PROTHROMBIN TIME) ([id number])Indication: History of DVT (deep vein thrombosis) On: 27-Dec-2018 Request PT (PROTHROMBIN TIME) ([id number]) : standing orderIndication: History of DVT (deep vein thrombosis) On: 27-Dec-2018 Request Comments: standing order PT (PROTHROMBIN TIME) ([id number]) : standing orderIndication: History of DVT (deep vein thrombosis) On: 27-Dec-2018 Request Comments: standing order PT (PROTHROMBIN TIME) ([id number]) : standing orderIndication: History of DVT (deep vein thrombosis) On: 26-Dec-2018 Request Comments: standing order PT (PROTHROMBIN TIME) ([id number]) : standing orderIndication: History of DVT (deep vein thrombosis) On: 25-Dec-2018 Request Comments: standing order PT (PROTHROMBIN TIME) ([id number]) : standing orderIndication: History of DVT (deep vein thrombosis) On: 24-Dec-2018 Request Comments: standing order PT (PROTHROMBIN TIME) ([id number]) : standing orderIndication: History of DVT (deep vein thrombosis) On: 23-Dec-2018 Request Comments: standing order PT (PROTHROMBIN TIME) ([id number]) : standing orderIndication: History of DVT (deep vein thrombosis) On: 22-Dec-2018 Request Comments: standing order PT (PROTHROMBIN TIME) ([id number]) : standing orderIndication: History of DVT (deep vein thrombosis) On: 21-Dec-2018 Request Comments: standing order PT (PROTHROMBIN TIME) ([id number]) : standing orderIndication: History of DVT (deep vein thrombosis) On: 20-Dec-2018 Request Comments: standing order PT (PROTHROMBIN TIME) ([id number]) : standing orderIndication: History of DVT (deep vein thrombosis) On: 19-Dec-2018 Request Comments: standing order PT (PROTHROMBIN TIME) ([id number]) : standing orderIndication: History of DVT (deep vein thrombosis) On: 18-Dec-2018 Request Comments: standing order PT (PROTHROMBIN TIME) ([id number]) : standing orderIndication: History of DVT (deep vein thrombosis) On: 17-Dec-2018 Request Comments: standing order PT (PROTHROMBIN TIME) ([id number]) : standing orderIndication: History of DVT (deep vein thrombosis) On: 16-Dec-2018 Request Comments: standing order PT (PROTHROMBIN TIME) ([id number]) : standing orderIndication: History of DVT (deep vein thrombosis) On: 15-Dec-2018 Request Comments: standing order PT (PROTHROMBIN TIME) ([id number]) : standing orderIndication: History of DVT (deep vein thrombosis) On: 14-Dec-2018 Request Comments: standing order PT (PROTHROMBIN TIME) ([id number]) : standing orderIndication: History of DVT (deep vein thrombosis) On: 13-Dec-2018 Request Comments: standing order PT (PROTHROMBIN TIME) ([id number]) : standing orderIndication: History of DVT (deep vein thrombosis) On: 12-Dec-2018 Request Comments: standing order PT (PROTHROMBIN TIME) ([id number]) : standing orderIndication: History of DVT (deep vein thrombosis) On: 11-Dec-2018 Request Comments: standing order PT (PROTHROMBIN TIME) ([id number]) : standing orderIndication: History of DVT (deep vein thrombosis) On: 10-Dec-2018 Request Comments: standing order PT (PROTHROMBIN TIME) ([id number]) : standing orderIndication: History of DVT (deep vein thrombosis) On: 09-Dec-2018 Request Comments: standing order PT (PROTHROMBIN TIME) ([id number]) : standing orderIndication: History of DVT (deep vein thrombosis) On: 08-Dec-2018 Request Comments: standing order PT (PROTHROMBIN TIME) ([id number]) : standing orderIndication: History of DVT (deep vein thrombosis) On: 07-Dec-2018 Request Comments: standing order PT (PROTHROMBIN TIME) ([id number]) : standing orderIndication: History of DVT (deep vein thrombosis) On: 06-Dec-2018 Request Comments: standing order PT (PROTHROMBIN TIME) ([id number]) : standing orderIndication: History of DVT (deep vein thrombosis) On: 05-Dec-2018 Request Comments: standing order PT (PROTHROMBIN TIME) ([id number]) : standing orderIndication: History of DVT (deep vein thrombosis) On: 04-Dec-2018 Request Comments: standing order PT (PROTHROMBIN TIME) ([id number]) : standing orderIndication: History of DVT (deep vein thrombosis) On: 03-Dec-2018 Request Comments: standing order PT (PROTHROMBIN TIME) ([id number]) : standing orderIndication: History of DVT (deep vein thrombosis) On: 02-Dec-2018 Request Comments: standing order PT (PROTHROMBIN TIME) ([id number]) : standing orderIndication: History of DVT (deep vein thrombosis) On: 01-Dec-2018 Request Comments: standing order PT (PROTHROMBIN TIME) ([id number]) : standing orderIndication: History of DVT (deep vein thrombosis) On: 30-Nov-2018 Request Comments: standing order PT (PROTHROMBIN TIME) ([id number]) : standing orderIndication: History of DVT (deep vein thrombosis) On: 29-Nov-2018 Request Comments: standing order PT (PROTHROMBIN TIME) ([id number]) : standing orderIndication: History of DVT (deep vein thrombosis) On: 28-Nov-2018 Request Comments: standing order PT (PROTHROMBIN TIME) ([id number])Indication: History of DVT (deep vein thrombosis) On: 27-Nov-2018 Request PT (PROTHROMBIN TIME) ([id number]) : standing orderIndication: History of DVT (deep vein thrombosis) On: 27-Nov-2018 Request Comments: standing order PT (PROTHROMBIN TIME) ([id number]) : standing orderIndication: History of DVT (deep vein thrombosis) On: 27-Nov-2018 Request Comments: standing order PT (PROTHROMBIN TIME) ([id number]) : standing orderIndication: History of DVT (deep vein thrombosis) On: 26-Nov-2018 Request Comments: standing order PT (PROTHROMBIN TIME) ([id number]) : standing orderIndication: History of DVT (deep vein thrombosis) On: 25-Nov-2018 Request Comments: standing order PT (PROTHROMBIN TIME) ([id number]) : standing orderIndication: History of DVT (deep vein thrombosis) On: 24-Nov-2018 Request Comments: standing order PT (PROTHROMBIN TIME) ([id number]) : standing orderIndication: History of DVT (deep vein thrombosis) On: 23-Nov-2018 Request Comments: standing order PT (PROTHROMBIN TIME) ([id number]) : standing orderIndication: History of DVT (deep vein thrombosis) On: 22-Nov-2018 Request Comments: standing order PT (PROTHROMBIN TIME) ([id number]) : standing orderIndication: History of DVT (deep vein thrombosis) On: 21-Nov-2018 Request Comments: standing order PT (PROTHROMBIN TIME) ([id number]) : standing orderIndication: History of DVT (deep vein thrombosis) On: 20-Nov-2018 Request Comments: standing order PT (PROTHROMBIN TIME) ([id number]) : standing orderIndication: History of DVT (deep vein thrombosis) On: 19-Nov-2018 Request Comments: standing order PT (PROTHROMBIN TIME) ([id number]) : standing orderIndication: History of DVT (deep vein thrombosis) On: 18-Nov-2018 Request Comments: standing order PT (PROTHROMBIN TIME) ([id number]) : standing orderIndication: History of DVT (deep vein thrombosis) On: 17-Nov-2018 Request Comments: standing order PT (PROTHROMBIN TIME) ([id number]) : standing orderIndication: History of DVT (deep vein thrombosis) On: 16-Nov-2018 Request Comments: standing order PT (PROTHROMBIN TIME) ([id number]) : standing orderIndication: History of DVT (deep vein thrombosis) On: 15-Nov-2018 Request Comments: standing order PT (PROTHROMBIN TIME) ([id number]) : standing orderIndication: History of DVT (deep vein thrombosis) On: 14-Nov-2018 Request Comments: standing order PT (PROTHROMBIN TIME) ([id number]) : standing orderIndication: History of DVT (deep vein thrombosis) On: 13-Nov-2018 Request Comments: standing order PT (PROTHROMBIN TIME) ([id number]) : standing orderIndication: History of DVT (deep vein thrombosis) On: 12-Nov-2018 Request Comments: standing order PT (PROTHROMBIN TIME) ([id number]) : standing orderIndication: History of DVT (deep vein thrombosis) On: 11-Nov-2018 Request Comments: standing order PT (PROTHROMBIN TIME) ([id number]) : standing orderIndication: History of DVT (deep vein thrombosis) On: 10-Nov-2018 Request Comments: standing order PT (PROTHROMBIN TIME) ([id number]) : standing orderIndication: History of DVT (deep vein thrombosis) On: 09-Nov-2018 Request Comments: standing order PT (PROTHROMBIN TIME) ([id number]) : standing orderIndication: History of DVT (deep vein thrombosis) On: 08-Nov-2018 Request Comments: standing order PT (PROTHROMBIN TIME) ([id number]) : standing orderIndication: History of DVT (deep vein thrombosis) On: 07-Nov-2018 Request Comments: standing order PT (PROTHROMBIN TIME) ([id number]) : standing orderIndication: History of DVT (deep vein thrombosis) On: 06-Nov-2018 Request Comments: standing order PT (PROTHROMBIN TIME) ([id number]) : standing orderIndication: History of DVT (deep vein thrombosis) On: 05-Nov-2018 Request Comments: standing order PT (PROTHROMBIN TIME) ([id number]) : standing orderIndication: History of DVT (deep vein thrombosis) On: 04-Nov-2018 Request Comments: standing order PT (PROTHROMBIN TIME) ([id number]) : standing orderIndication: History of DVT (deep vein thrombosis) On: 03-Nov-2018 Request Comments: standing order PT (PROTHROMBIN TIME) ([id number]) : standing orderIndication: History of DVT (deep vein thrombosis) On: 02-Nov-2018 Request Comments: standing order PT (PROTHROMBIN TIME) ([id number]) : standing orderIndication: History of DVT (deep vein thrombosis) On: 01-Nov-2018 Request Comments: standing order PT (PROTHROMBIN TIME) ([id number]) : standing orderIndication: History of DVT (deep vein thrombosis) On: 31-Oct-2018 Request Comments: standing order PT (PROTHROMBIN TIME) ([id number]) : standing orderIndication: History of DVT (deep vein thrombosis) On: 30-Oct-2018 Request Comments: standing order PT (PROTHROMBIN TIME) ([id number]) : standing orderIndication: History of DVT (deep vein thrombosis) On: 29-Oct-2018 Request Comments: standing order PT (PROTHROMBIN TIME) ([id number])Indication: History of DVT (deep vein thrombosis) On: 28-Oct-2018 Request PT (PROTHROMBIN TIME) ([id number]) : standing orderIndication: History of DVT (deep vein thrombosis) On: 28-Oct-2018 Request Comments: standing order PT (PROTHROMBIN TIME) ([id number]) : standing orderIndication: History of DVT (deep vein thrombosis) On: 28-Oct-2018 Request Comments: standing order PT (PROTHROMBIN TIME) ([id number]) : standing orderIndication: History of DVT (deep vein thrombosis) On: 27-Oct-2018 Request Comments: standing order PT (PROTHROMBIN TIME) ([id number]) : standing orderIndication: History of DVT (deep vein thrombosis) On: 26-Oct-2018 Request Comments: standing order PT (PROTHROMBIN TIME) ([id number]) : standing orderIndication: History of DVT (deep vein thrombosis) On: 25-Oct-2018 Request Comments: standing order PT (PROTHROMBIN TIME) ([id number]) : standing orderIndication: History of DVT (deep vein thrombosis) On: 24-Oct-2018 Request Comments: standing order PT (PROTHROMBIN TIME) ([id number]) : standing orderIndication: History of DVT (deep vein thrombosis) On: 23-Oct-2018 Request Comments: standing order PT (PROTHROMBIN TIME) ([id number]) : standing orderIndication: History of DVT (deep vein thrombosis) On: 22-Oct-2018 Request Comments: standing order PT (PROTHROMBIN TIME) ([id number]) : standing orderIndication: History of DVT (deep vein thrombosis) On: 21-Oct-2018 Request Comments: standing order PT (PROTHROMBIN TIME) ([id number]) : standing orderIndication: History of DVT (deep vein thrombosis) On: 20-Oct-2018 Request Comments: standing order PT (PROTHROMBIN TIME) ([id number]) : standing orderIndication: History of DVT (deep vein thrombosis) On: 19-Oct-2018 Request Comments: standing order PT (PROTHROMBIN TIME) ([id number]) : standing orderIndication: History of DVT (deep vein thrombosis) On: 18-Oct-2018 Request Comments: standing order PT (PROTHROMBIN TIME) ([id number]) : standing orderIndication: History of DVT (deep vein thrombosis) On: 17-Oct-2018 Request Comments: standing order PT (PROTHROMBIN TIME) ([id number]) : standing orderIndication: History of DVT (deep vein thrombosis) On: 16-Oct-2018 Request Comments: standing order CBC, Platelets & Auto Diff ([id number])Indication: Leukopenia On: 15-Oct-2018 Request PT (PROTHROMBIN TIME) ([id number]) : standing orderIndication: History of DVT (deep vein thrombosis) On: 15-Oct-2018 Request Comments: standing order PT (PROTHROMBIN TIME) ([id number]) : standing orderIndication: History of DVT (deep vein thrombosis) On: 14-Oct-2018 Request Comments: standing order PT (PROTHROMBIN TIME) ([id number]) : standing orderIndication: History of DVT (deep vein thrombosis) On: 13-Oct-2018 Request Comments: standing order PT (PROTHROMBIN TIME) ([id number]) : standing orderIndication: History of DVT (deep vein thrombosis) On: 12-Oct-2018 Request Comments: standing order PT (PROTHROMBIN TIME) ([id number]) : standing orderIndication: History of DVT (deep vein thrombosis) On: 11-Oct-2018 Request Comments: standing order PT (PROTHROMBIN TIME) ([id number]) : standing orderIndication: History of DVT (deep vein thrombosis) On: 10-Oct-2018 Request Comments: standing order PT (PROTHROMBIN TIME) ([id number]) : standing orderIndication: History of DVT (deep vein thrombosis) On: 09-Oct-2018 Request Comments: standing order PT (PROTHROMBIN TIME) ([id number]) : standing orderIndication: History of DVT (deep vein thrombosis) On: 08-Oct-2018 Request Comments: standing order PT (PROTHROMBIN TIME) ([id number]) : standing orderIndication: History of DVT (deep vein thrombosis) On: 07-Oct-2018 Request Comments: standing order PT (PROTHROMBIN TIME) ([id number]) : standing orderIndication: History of DVT (deep vein thrombosis) On: 06-Oct-2018 Request Comments: standing order PT (PROTHROMBIN TIME) ([id number]) : standing orderIndication: History of DVT (deep vein thrombosis) On: 05-Oct-2018 Request Comments: standing order PT (PROTHROMBIN TIME) ([id number]) : standing orderIndication: History of DVT (deep vein thrombosis) On: 04-Oct-2018 Request Comments: standing order PT (PROTHROMBIN TIME) ([id number]) : standing orderIndication: History of DVT (deep vein thrombosis) On: 03-Oct-2018 Request Comments: standing order PT (PROTHROMBIN TIME) ([id number]) : standing orderIndication: History of DVT (deep vein thrombosis) On: 02-Oct-2018 Request Comments: standing order PT (PROTHROMBIN TIME) ([id number]) : standing orderIndication: History of DVT (deep vein thrombosis) On: 01-Oct-2018 Request Comments: standing order PT (PROTHROMBIN TIME) ([id number]) : standing orderIndication: History of DVT (deep vein thrombosis) On: 30-Sep-2018 Request Comments: standing order PT (PROTHROMBIN TIME) ([id number]) : standing orderIndication: History of DVT (deep vein thrombosis) On: 29-Sep-2018 Request Comments: standing order PT (PROTHROMBIN TIME) ([id number])Indication: History of DVT (deep vein thrombosis) On: 28-Sep-2018 Request PT (PROTHROMBIN TIME) ([id number]) : standing orderIndication: History of DVT (deep vein thrombosis) On: 28-Sep-2018 Request Comments: standing order PT (PROTHROMBIN TIME) ([id number]) : standing orderIndication: History of DVT (deep vein thrombosis) On: 28-Sep-2018 Request Comments: standing order PT (PROTHROMBIN TIME) ([id number]) : standing orderIndication: History of DVT (deep vein thrombosis) On: 27-Sep-2018 Request Comments: standing order PT (PROTHROMBIN TIME) ([id number]) : standing orderIndication: History of DVT (deep vein thrombosis) On: 26-Sep-2018 Request Comments: standing order PT (PROTHROMBIN TIME) ([id number]) : standing orderIndication: History of DVT (deep vein thrombosis) On: 25-Sep-2018 Request Comments: standing order PT (PROTHROMBIN TIME) ([id number]) : standing orderIndication: History of DVT (deep vein thrombosis) On: 24-Sep-2018 Request Comments: standing order PT (PROTHROMBIN TIME) ([id number]) : standing orderIndication: History of DVT (deep vein thrombosis) On: 23-Sep-2018 Request Comments: standing order PT (PROTHROMBIN TIME) ([id number]) : standing orderIndication: History of DVT (deep vein thrombosis) On: 22-Sep-2018 Request Comments: standing order PT (PROTHROMBIN TIME) ([id number]) : standing orderIndication: History of DVT (deep vein thrombosis) On: 21-Sep-2018 Request Comments: standing order PT (PROTHROMBIN TIME) ([id number]) : standing orderIndication: History of DVT (deep vein thrombosis) On: 20-Sep-2018 Request Comments: standing order PT (PROTHROMBIN TIME) ([id number]) : standing orderIndication: History of DVT (deep vein thrombosis) On: 19-Sep-2018 Request Comments: standing order PT (PROTHROMBIN TIME) ([id number]) : standing orderIndication: History of DVT (deep vein thrombosis) On: 18-Sep-2018 Request Comments: standing order PT (PROTHROMBIN TIME) ([id number]) : standing orderIndication: History of DVT (deep vein thrombosis) On: 17-Sep-2018 Request Comments: standing order PT (PROTHROMBIN TIME) ([id number]) : standing orderIndication: History of DVT (deep vein thrombosis) On: 17-Sep-2018 Request Comments: standing order PT (PROTHROMBIN TIME) ([id number]) : standing orderIndication: History of DVT (deep vein thrombosis) On: 16-Sep-2018 Request Comments: standing order PT (PROTHROMBIN TIME) ([id number]) : standing orderIndication: History of DVT (deep vein thrombosis) On: 16-Sep-2018 Request Comments: standing order PT (PROTHROMBIN TIME) ([id number]) : standing orderIndication: History of DVT (deep vein thrombosis) On: 15-Sep-2018 Request Comments: standing order PT (PROTHROMBIN TIME) ([id number]) : standing orderIndication: History of DVT (deep vein thrombosis) On: 15-Sep-2018 Request Comments: standing order PT (PROTHROMBIN TIME) ([id number]) : standing orderIndication: History of DVT (deep vein thrombosis) On: 14-Sep-2018 Request Comments: standing order PT (PROTHROMBIN TIME) ([id number]) : standing orderIndication: History of DVT (deep vein thrombosis) On: 14-Sep-2018 Request Comments: standing order PT (PROTHROMBIN TIME) ([id number]) : standing orderIndication: History of DVT (deep vein thrombosis) On: 13-Sep-2018 Request Comments: standing order PT (PROTHROMBIN TIME) ([id number]) : standing orderIndication: History of DVT (deep vein thrombosis) On: 13-Sep-2018 Request Comments: standing order PT (PROTHROMBIN TIME) ([id number]) : standing orderIndication: History of DVT (deep vein thrombosis) On: 12-Sep-2018 Request Comments: standing order PT (PROTHROMBIN TIME) ([id number]) : standing orderIndication: History of DVT (deep vein thrombosis) On: 12-Sep-2018 Request Comments: standing order PT (PROTHROMBIN TIME) ([id number]) : standing orderIndication: History of DVT (deep vein thrombosis) On: 11-Sep-2018 Request Comments: standing order PT (PROTHROMBIN TIME) ([id number]) : standing orderIndication: History of DVT (deep vein thrombosis) On: 11-Sep-2018 Request Comments: standing order PT (PROTHROMBIN TIME) ([id number]) : standing orderIndication: History of DVT (deep vein thrombosis) On: 10-Sep-2018 Request Comments: standing order PT (PROTHROMBIN TIME) ([id number]) : standing orderIndication: History of DVT (deep vein thrombosis) On: 10-Sep-2018 Request Comments: standing order PT (PROTHROMBIN TIME) ([id number]) : standing orderIndication: History of DVT (deep vein thrombosis) On: 09-Sep-2018 Request Comments: standing order PT (PROTHROMBIN TIME) ([id number]) : standing orderIndication: History of DVT (deep vein thrombosis) On: 09-Sep-2018 Request Comments: standing order PT (PROTHROMBIN TIME) ([id number]) : standing orderIndication: History of DVT (deep vein thrombosis) On: 08-Sep-2018 Request Comments: standing order PT (PROTHROMBIN TIME) ([id number]) : standing orderIndication: History of DVT (deep vein thrombosis) On: 08-Sep-2018 Request Comments: standing order PT (PROTHROMBIN TIME) ([id number]) : standing orderIndication: History of DVT (deep vein thrombosis) On: 07-Sep-2018 Request Comments: standing order PT (PROTHROMBIN TIME) ([id number]) : standing orderIndication: History of DVT (deep vein thrombosis) On: 07-Sep-2018 Request Comments: standing order PT (PROTHROMBIN TIME) ([id number]) : standing orderIndication: History of DVT (deep vein thrombosis) On: 06-Sep-2018 Request Comments: standing order PT (PROTHROMBIN TIME) ([id number]) : standing orderIndication: History of DVT (deep vein thrombosis) On: 06-Sep-2018 Request Comments: standing order PT (PROTHROMBIN TIME) ([id number]) : standing orderIndication: History of DVT (deep vein thrombosis) On: 05-Sep-2018 Request Comments: standing order PT (PROTHROMBIN TIME) ([id number]) : standing orderIndication: History of DVT (deep vein thrombosis) On: 05-Sep-2018 Request Comments: standing order PT (PROTHROMBIN TIME) ([id number]) : standing orderIndication: History of DVT (deep vein thrombosis) On: 04-Sep-2018 Request Comments: standing order PT (PROTHROMBIN TIME) ([id number]) : standing orderIndication: History of DVT (deep vein thrombosis) On: 04-Sep-2018 Request Comments: standing order PT (PROTHROMBIN TIME) ([id number]) : standing orderIndication: History of DVT (deep vein thrombosis) On: 03-Sep-2018 Request Comments: standing order PT (PROTHROMBIN TIME) ([id number]) : standing orderIndication: History of DVT (deep vein thrombosis) On: 03-Sep-2018 Request Comments: standing order PT (PROTHROMBIN TIME) ([id number]) : standing orderIndication: History of DVT (deep vein thrombosis) On: 02-Sep-2018 Request Comments: standing order PT (PROTHROMBIN TIME) ([id number]) : standing orderIndication: History of DVT (deep vein thrombosis) On: 02-Sep-2018 Request Comments: standing order PT (PROTHROMBIN TIME) ([id number]) : standing orderIndication: History of DVT (deep vein thrombosis) On: 01-Sep-2018 Request Comments: standing order PT (PROTHROMBIN TIME) ([id number]) : standing orderIndication: History of DVT (deep vein thrombosis) On: 01-Sep-2018 Request Comments: standing order PT (PROTHROMBIN TIME) ([id number]) : standing orderIndication: History of DVT (deep vein thrombosis) On: 31-Aug-2018 Request Comments: standing order PT (PROTHROMBIN TIME) ([id number]) : standing orderIndication: History of DVT (deep vein thrombosis) On: 31-Aug-2018 Request Comments: standing order PT (PROTHROMBIN TIME) ([id number]) : standing orderIndication: History of DVT (deep vein thrombosis) On: 30-Aug-2018 Request Comments: standing order PT (PROTHROMBIN TIME) ([id number]) : standing orderIndication: History of DVT (deep vein thrombosis) On: 30-Aug-2018 Request Comments: standing order PT (PROTHROMBIN TIME) ([id number])Indication: History of DVT (deep vein thrombosis) On: 29-Aug-2018 Request PT (PROTHROMBIN TIME) ([id number]) : standing orderIndication: History of DVT (deep vein thrombosis) On: 29-Aug-2018 Request Comments: standing order PT (PROTHROMBIN TIME) ([id number]) : standing orderIndication: History of DVT (deep vein thrombosis) On: 29-Aug-2018 Request Comments: standing order PT (PROTHROMBIN TIME) ([id number]) : standing orderIndication: History of DVT (deep vein thrombosis) On: 29-Aug-2018 Request Comments: standing order PT (PROTHROMBIN TIME) ([id number]) : standing orderIndication: History of DVT (deep vein thrombosis) On: 28-Aug-2018 Request Comments: standing order PT (PROTHROMBIN TIME) ([id number]) : standing orderIndication: History of DVT (deep vein thrombosis) On: 28-Aug-2018 Request Comments: standing order PT (PROTHROMBIN TIME) ([id number]) : standing orderIndication: History of DVT (deep vein thrombosis) On: 27-Aug-2018 Request Comments: standing order PT (PROTHROMBIN TIME) ([id number]) : standing orderIndication: History of DVT (deep vein thrombosis) On: 27-Aug-2018 Request Comments: standing order PT (PROTHROMBIN TIME) ([id number]) : standing orderIndication: History of DVT (deep vein thrombosis) On: 26-Aug-2018 Request Comments: standing order PT (PROTHROMBIN TIME) ([id number]) : standing orderIndication: History of DVT (deep vein thrombosis) On: 26-Aug-2018 Request Comments: standing order PT (PROTHROMBIN TIME) ([id number]) : standing orderIndication: History of DVT (deep vein thrombosis) On: 25-Aug-2018 Request Comments: standing order PT (PROTHROMBIN TIME) ([id number]) : standing orderIndication: History of DVT (deep vein thrombosis) On: 25-Aug-2018 Request Comments: standing order PT (PROTHROMBIN TIME) ([id number]) : standing orderIndication: History of DVT (deep vein thrombosis) On: 24-Aug-2018 Request Comments: standing order PT (PROTHROMBIN TIME) ([id number]) : standing orderIndication: History of DVT (deep vein thrombosis) On: 24-Aug-2018 Request Comments: standing order PT (PROTHROMBIN TIME) ([id number]) : standing orderIndication: History of DVT (deep vein thrombosis) On: 23-Aug-2018 Request Comments: standing order PT (PROTHROMBIN TIME) ([id number]) : standing orderIndication: History of DVT (deep vein thrombosis) On: 23-Aug-2018 Request Comments: standing order PT (PROTHROMBIN TIME) ([id number]) : standing orderIndication: History of DVT (deep vein thrombosis) On: 22-Aug-2018 Request Comments: standing order PT (PROTHROMBIN TIME) ([id number]) : standing orderIndication: History of DVT (deep vein thrombosis) On: 22-Aug-2018 Request Comments: standing order PT (PROTHROMBIN TIME) ([id number]) : standing orderIndication: History of DVT (deep vein thrombosis) On: 21-Aug-2018 Request Comments: standing order PT (PROTHROMBIN TIME) ([id number]) : standing orderIndication: History of DVT (deep vein thrombosis) On: 21-Aug-2018 Request Comments: standing order PT (PROTHROMBIN TIME) ([id number]) : standing orderIndication: History of DVT (deep vein thrombosis) On: 20-Aug-2018 Request Comments: standing order PT (PROTHROMBIN TIME) ([id number]) : standing orderIndication: History of DVT (deep vein thrombosis) On: 20-Aug-2018 Request Comments: standing order PT (PROTHROMBIN TIME) ([id number]) : standing orderIndication: History of DVT (deep vein thrombosis) On: 19-Aug-2018 Request Comments: standing order PT (PROTHROMBIN TIME) ([id number]) : standing orderIndication: History of DVT (deep vein thrombosis) On: 19-Aug-2018 Request Comments: standing order PT (PROTHROMBIN TIME) ([id number]) : standing orderIndication: History of DVT (deep vein thrombosis) On: 18-Aug-2018 Request Comments: standing order PT (PROTHROMBIN TIME) ([id number]) : standing orderIndication: History of DVT (deep vein thrombosis) On: 18-Aug-2018 Request Comments: standing order PT (PROTHROMBIN TIME) ([id number]) : standing orderIndication: History of DVT (deep vein thrombosis) On: 17-Aug-2018 Request Comments: standing order PT (PROTHROMBIN TIME) ([id number]) : standing orderIndication: History of DVT (deep vein thrombosis) On: 17-Aug-2018 Request Comments: standing order PT (PROTHROMBIN TIME) ([id number]) : standing orderIndication: History of DVT (deep vein thrombosis) On: 16-Aug-2018 Request Comments: standing order PT (PROTHROMBIN TIME) ([id number]) : standing orderIndication: History of DVT (deep vein thrombosis) On: 16-Aug-2018 Request Comments: standing order PT (PROTHROMBIN TIME) ([id number]) : standing orderIndication: History of DVT (deep vein thrombosis) On: 15-Aug-2018 Request Comments: standing order PT (PROTHROMBIN TIME) ([id number]) : standing orderIndication: History of DVT (deep vein thrombosis) On: 15-Aug-2018 Request Comments: standing order PT (PROTHROMBIN TIME) ([id number]) : standing orderIndication: History of DVT (deep vein thrombosis) On: 14-Aug-2018 Request Comments: standing order PT (PROTHROMBIN TIME) ([id number]) : standing orderIndication: History of DVT (deep vein thrombosis) On: 14-Aug-2018 Request Comments: standing order PT (PROTHROMBIN TIME) ([id number]) : standing orderIndication: History of DVT (deep vein thrombosis) On: 13-Aug-2018 Request Comments: standing order PT (PROTHROMBIN TIME) ([id number]) : standing orderIndication: History of DVT (deep vein thrombosis) On: 13-Aug-2018 Request Comments: standing order PT (PROTHROMBIN TIME) ([id number]) : standing orderIndication: History of DVT (deep vein thrombosis) On: 12-Aug-2018 Request Comments: standing order PT (PROTHROMBIN TIME) ([id number]) : standing orderIndication: History of DVT (deep vein thrombosis) On: 12-Aug-2018 Request Comments: standing order PT (PROTHROMBIN TIME) ([id number]) : standing orderIndication: History of DVT (deep vein thrombosis) On: 11-Aug-2018 Request Comments: standing order PT (PROTHROMBIN TIME) ([id number]) : standing orderIndication: History of DVT (deep vein thrombosis) On: 11-Aug-2018 Request Comments: standing order PT (PROTHROMBIN TIME) ([id number]) : standing orderIndication: History of DVT (deep vein thrombosis) On: 10-Aug-2018 Request Comments: standing order PT (PROTHROMBIN TIME) ([id number]) : standing orderIndication: History of DVT (deep vein thrombosis) On: 10-Aug-2018 Request Comments: standing order PT (PROTHROMBIN TIME) ([id number]) : standing orderIndication: History of DVT (deep vein thrombosis) On: 09-Aug-2018 Request Comments: standing order PT (PROTHROMBIN TIME) ([id number]) : standing orderIndication: History of DVT (deep vein thrombosis) On: 09-Aug-2018 Request Comments: standing order PT (PROTHROMBIN TIME) ([id number]) : standing orderIndication: History of DVT (deep vein thrombosis) On: 08-Aug-2018 Request Comments: standing order PT (PROTHROMBIN TIME) ([id number]) : standing orderIndication: History of DVT (deep vein thrombosis) On: 08-Aug-2018 Request Comments: standing order PT (PROTHROMBIN TIME) ([id number]) : standing orderIndication: History of DVT (deep vein thrombosis) On: 07-Aug-2018 Request Comments: standing order PT (PROTHROMBIN TIME) ([id number]) : standing orderIndication: History of DVT (deep vein thrombosis) On: 07-Aug-2018 Request Comments: standing order PT (PROTHROMBIN TIME) ([id number]) : standing orderIndication: History of DVT (deep vein thrombosis) On: 06-Aug-2018 Request Comments: standing order PT (PROTHROMBIN TIME) ([id number]) : standing orderIndication: History of DVT (deep vein thrombosis) On: 06-Aug-2018 Request Comments: standing order PT (PROTHROMBIN TIME) ([id number]) : standing orderIndication: History of DVT (deep vein thrombosis) On: 05-Aug-2018 Request Comments: standing order PT (PROTHROMBIN TIME) ([id number]) : standing orderIndication: History of DVT (deep vein thrombosis) On: 05-Aug-2018 Request Comments: standing order PT (PROTHROMBIN TIME) ([id number]) : standing orderIndication: History of DVT (deep vein thrombosis) On: 04-Aug-2018 Request Comments: standing order PT (PROTHROMBIN TIME) ([id number]) : standing orderIndication: History of DVT (deep vein thrombosis) On: 04-Aug-2018 Request Comments: standing order PT (PROTHROMBIN TIME) ([id number]) : standing orderIndication: History of DVT (deep vein thrombosis) On: 03-Aug-2018 Request Comments: standing order PT (PROTHROMBIN TIME) ([id number]) : standing orderIndication: History of DVT (deep vein thrombosis) On: 03-Aug-2018 Request Comments: standing order PT (PROTHROMBIN TIME) ([id number]) : standing orderIndication: History of DVT (deep vein thrombosis) On: 02-Aug-2018 Request Comments: standing order PT (PROTHROMBIN TIME) ([id number]) : standing orderIndication: History of DVT (deep vein thrombosis) On: 02-Aug-2018 Request Comments: standing order PT (PROTHROMBIN TIME) ([id number]) : standing orderIndication: History of DVT (deep vein thrombosis) On: 01-Aug-2018 Request Comments: standing order PT (PROTHROMBIN TIME) ([id number]) : standing orderIndication: History of DVT (deep vein thrombosis) On: 01-Aug-2018 Request Comments: standing order PT (PROTHROMBIN TIME) ([id number]) : standing orderIndication: History of DVT (deep vein thrombosis) On: 31-Jul-2018 Request Comments: standing order PT (PROTHROMBIN TIME) ([id number]) : standing orderIndication: History of DVT (deep vein thrombosis) On: 31-Jul-2018 Request Comments: standing order PT (PROTHROMBIN TIME) ([id number])Indication: History of DVT (deep vein thrombosis) On: 30-Jul-2018 Request PT (PROTHROMBIN TIME) ([id number]) : standing orderIndication: History of DVT (deep vein thrombosis) On: 30-Jul-2018 Request Comments: standing order PT (PROTHROMBIN TIME) ([id number]) : standing orderIndication: History of DVT (deep vein thrombosis) On: 30-Jul-2018 Request Comments: standing order PT (PROTHROMBIN TIME) ([id number]) : standing orderIndication: History of DVT (deep vein thrombosis) On: 30-Jul-2018 Request Comments: standing order PT (PROTHROMBIN TIME) ([id number]) : standing orderIndication: History of DVT (deep vein thrombosis) On: 29-Jul-2018 Request Comments: standing order PT (PROTHROMBIN TIME) ([id number]) : standing orderIndication: History of DVT (deep vein thrombosis) On: 29-Jul-2018 Request Comments: standing order PT (PROTHROMBIN TIME) ([id number]) : standing orderIndication: History of DVT (deep vein thrombosis) On: 28-Jul-2018 Request Comments: standing order PT (PROTHROMBIN TIME) ([id number]) : standing orderIndication: History of DVT (deep vein thrombosis) On: 28-Jul-2018 Request Comments: standing order PT (PROTHROMBIN TIME) ([id number]) : standing orderIndication: History of DVT (deep vein thrombosis) On: 27-Jul-2018 Request Comments: standing order PT (PROTHROMBIN TIME) ([id number]) : standing orderIndication: History of DVT (deep vein thrombosis) On: 27-Jul-2018 Request Comments: standing order PT (PROTHROMBIN TIME) ([id number]) : standing orderIndication: History of DVT (deep vein thrombosis) On: 26-Jul-2018 Request Comments: standing order PT (PROTHROMBIN TIME) ([id number]) : standing orderIndication: History of DVT (deep vein thrombosis) On: 26-Jul-2018 Request Comments: standing order PT (PROTHROMBIN TIME) ([id number]) : standing orderIndication: History of DVT (deep vein thrombosis) On: 25-Jul-2018 Request Comments: standing order PT (PROTHROMBIN TIME) ([id number]) : standing orderIndication: History of DVT (deep vein thrombosis) On: 25-Jul-2018 Request Comments: standing order PT (PROTHROMBIN TIME) ([id number]) : standing orderIndication: History of DVT (deep vein thrombosis) On: 24-Jul-2018 Request Comments: standing order PT (PROTHROMBIN TIME) ([id number]) : standing orderIndication: History of DVT (deep vein thrombosis) On: 24-Jul-2018 Request Comments: standing order PT (PROTHROMBIN TIME) ([id number]) : standing orderIndication: History of DVT (deep vein thrombosis) On: 23-Jul-2018 Request Comments: standing order PT (PROTHROMBIN TIME) ([id number]) : standing orderIndication: History of DVT (deep vein thrombosis) On: 23-Jul-2018 Request Comments: standing order PT (PROTHROMBIN TIME) ([id number]) : standing orderIndication: History of DVT (deep vein thrombosis) On: 22-Jul-2018 Request Comments: standing order PT (PROTHROMBIN TIME) ([id number]) : standing orderIndication: History of DVT (deep vein thrombosis) On: 22-Jul-2018 Request Comments: standing order PT (PROTHROMBIN TIME) ([id number]) : standing orderIndication: History of DVT (deep vein thrombosis) On: 21-Jul-2018 Request Comments: standing order PT (PROTHROMBIN TIME) ([id number]) : standing orderIndication: History of DVT (deep vein thrombosis) On: 21-Jul-2018 Request Comments: standing order PT (PROTHROMBIN TIME) ([id number]) : standing orderIndication: History of DVT (deep vein thrombosis) On: 20-Jul-2018 Request Comments: standing order PT (PROTHROMBIN TIME) ([id number]) : standing orderIndication: History of DVT (deep vein thrombosis) On: 20-Jul-2018 Request Comments: standing order PT (PROTHROMBIN TIME) ([id number]) : standing orderIndication: History of DVT (deep vein thrombosis) On: 19-Jul-2018 Request Comments: standing order PT (PROTHROMBIN TIME) ([id number]) : standing orderIndication: History of DVT (deep vein thrombosis) On: 19-Jul-2018 Request Comments: standing order PT (PROTHROMBIN TIME) ([id number]) : standing orderIndication: History of DVT (deep vein thrombosis) On: 18-Jul-2018 Request Comments: standing order PT (PROTHROMBIN TIME) ([id number]) : standing orderIndication: History of DVT (deep vein thrombosis) On: 18-Jul-2018 Request Comments: standing order CBC, Platelets & Auto Diff ([id number])Indication: Leukopenia On: 17-Jul-2018 Request PT (PROTHROMBIN TIME) ([id number]) : standing orderIndication: History of DVT (deep vein thrombosis) On: 17-Jul-2018 Request Comments: standing order PT (PROTHROMBIN TIME) ([id number]) : standing orderIndication: History of DVT (deep vein thrombosis) On: 17-Jul-2018 Request Comments: standing order PT (PROTHROMBIN TIME) ([id number]) : standing orderIndication: History of DVT (deep vein thrombosis) On: 16-Jul-2018 Request Comments: standing order PT (PROTHROMBIN TIME) ([id number]) : standing orderIndication: History of DVT (deep vein thrombosis) On: 16-Jul-2018 Request Comments: standing order PT (PROTHROMBIN TIME) ([id number]) : standing orderIndication: History of DVT (deep vein thrombosis) On: 15-Jul-2018 Request Comments: standing order PT (PROTHROMBIN TIME) ([id number]) : standing orderIndication: History of DVT (deep vein thrombosis) On: 15-Jul-2018 Request Comments: standing order PT (PROTHROMBIN TIME) ([id number]) : standing orderIndication: History of DVT (deep vein thrombosis) On: 14-Jul-2018 Request Comments: standing order PT (PROTHROMBIN TIME) ([id number]) : standing orderIndication: History of DVT (deep vein thrombosis) On: 14-Jul-2018 Request Comments: standing order PT (PROTHROMBIN TIME) ([id number]) : standing orderIndication: History of DVT (deep vein thrombosis) On: 13-Jul-2018 Request Comments: standing order PT (PROTHROMBIN TIME) ([id number]) : standing orderIndication: History of DVT (deep vein thrombosis) On: 13-Jul-2018 Request Comments: standing order PT (PROTHROMBIN TIME) ([id number]) : standing orderIndication: History of DVT (deep vein thrombosis) On: 12-Jul-2018 Request Comments: standing order PT (PROTHROMBIN TIME) ([id number]) : standing orderIndication: History of DVT (deep vein thrombosis) On: 12-Jul-2018 Request Comments: standing order PT (PROTHROMBIN TIME) ([id number]) : standing orderIndication: History of DVT (deep vein thrombosis) On: 11-Jul-2018 Request Comments: standing order PT (PROTHROMBIN TIME) ([id number]) : standing orderIndication: History of DVT (deep vein thrombosis) On: 11-Jul-2018 Request Comments: standing order PT (PROTHROMBIN TIME) ([id number]) : standing orderIndication: History of DVT (deep vein thrombosis) On: 10-Jul-2018 Request Comments: standing order PT (PROTHROMBIN TIME) ([id number]) : standing orderIndication: History of DVT (deep vein thrombosis) On: 10-Jul-2018 Request Comments: standing order PT (PROTHROMBIN TIME) ([id number]) : standing orderIndication: History of DVT (deep vein thrombosis) On: 09-Jul-2018 Request Comments: standing order PT (PROTHROMBIN TIME) ([id number]) : standing orderIndication: History of DVT (deep vein thrombosis) On: 09-Jul-2018 Request Comments: standing order PT (PROTHROMBIN TIME) ([id number]) : standing orderIndication: History of DVT (deep vein thrombosis) On: 08-Jul-2018 Request Comments: standing order PT (PROTHROMBIN TIME) ([id number]) : standing orderIndication: History of DVT (deep vein thrombosis) On: 08-Jul-2018 Request Comments: standing order PT (PROTHROMBIN TIME) ([id number]) : standing orderIndication: History of DVT (deep vein thrombosis) On: 07-Jul-2018 Request Comments: standing order PT (PROTHROMBIN TIME) ([id number]) : standing orderIndication: History of DVT (deep vein thrombosis) On: 07-Jul-2018 Request Comments: standing order PT (PROTHROMBIN TIME) ([id number]) : standing orderIndication: History of DVT (deep vein thrombosis) On: 06-Jul-2018 Request Comments: standing order PT (PROTHROMBIN TIME) ([id number]) : standing orderIndication: History of DVT (deep vein thrombosis) On: 06-Jul-2018 Request Comments: standing order PT (PROTHROMBIN TIME) ([id number]) : standing orderIndication: History of DVT (deep vein thrombosis) On: 05-Jul-2018 Request Comments: standing order PT (PROTHROMBIN TIME) ([id number]) : standing orderIndication: History of DVT (deep vein thrombosis) On: 05-Jul-2018 Request Comments: standing order PT (PROTHROMBIN TIME) ([id number]) : standing orderIndication: History of DVT (deep vein thrombosis) On: 04-Jul-2018 Request Comments: standing order PT (PROTHROMBIN TIME) ([id number]) : standing orderIndication: History of DVT (deep vein thrombosis) On: 04-Jul-2018 Request Comments: standing order PT (PROTHROMBIN TIME) ([id number]) : standing orderIndication: History of DVT (deep vein thrombosis) On: 03-Jul-2018 Request Comments: standing order PT (PROTHROMBIN TIME) ([id number]) : standing orderIndication: History of DVT (deep vein thrombosis) On: 03-Jul-2018 Request Comments: standing order PT (PROTHROMBIN TIME) ([id number]) : standing orderIndication: History of DVT (deep vein thrombosis) On: 02-Jul-2018 Request Comments: standing order PT (PROTHROMBIN TIME) ([id number]) : standing orderIndication: History of DVT (deep vein thrombosis) On: 02-Jul-2018 Request Comments: standing order PT (PROTHROMBIN TIME) ([id number]) : standing orderIndication: History of DVT (deep vein thrombosis) On: 01-Jul-2018 Request Comments: standing order PT (PROTHROMBIN TIME) ([id number]) : standing orderIndication: History of DVT (deep vein thrombosis) On: 01-Jul-2018 Request Comments: standing order PT (PROTHROMBIN TIME) ([id number])Indication: History of DVT (deep vein thrombosis) On: 30-Jun-2018 Request PT (PROTHROMBIN TIME) ([id number]) : standing orderIndication: History of DVT (deep vein thrombosis) On: 30-Jun-2018 Request Comments: standing order PT (PROTHROMBIN TIME) ([id number]) : standing orderIndication: History of DVT (deep vein thrombosis) On: 30-Jun-2018 Request Comments: standing order PT (PROTHROMBIN TIME) ([id number]) : standing orderIndication: History of DVT (deep vein thrombosis) On: 30-Jun-2018 Request Comments: standing order PT (PROTHROMBIN TIME) ([id number]) : standing orderIndication: History of DVT (deep vein thrombosis) On: 29-Jun-2018 Request Comments: standing order PT (PROTHROMBIN TIME) ([id number]) : standing orderIndication: History of DVT (deep vein thrombosis) On: 29-Jun-2018 Request Comments: standing order PT (PROTHROMBIN TIME) ([id number]) : standing orderIndication: History of DVT (deep vein thrombosis) On: 28-Jun-2018 Request Comments: standing order PT (PROTHROMBIN TIME) ([id number]) : standing orderIndication: History of DVT (deep vein thrombosis) On: 28-Jun-2018 Request Comments: standing order PT (PROTHROMBIN TIME) ([id number]) : standing orderIndication: History of DVT (deep vein thrombosis) On: 27-Jun-2018 Request Comments: standing order PT (PROTHROMBIN TIME) ([id number]) : standing orderIndication: History of DVT (deep vein thrombosis) On: 27-Jun-2018 Request Comments: standing order PT (PROTHROMBIN TIME) ([id number]) : standing orderIndication: History of DVT (deep vein thrombosis) On: 26-Jun-2018 Request Comments: standing order PT (PROTHROMBIN TIME) ([id number]) : standing orderIndication: History of DVT (deep vein thrombosis) On: 26-Jun-2018 Request Comments: standing order PT (PROTHROMBIN TIME) ([id number]) : standing orderIndication: History of DVT (deep vein thrombosis) On: 25-Jun-2018 Request Comments: standing order PT (PROTHROMBIN TIME) ([id number]) : standing orderIndication: History of DVT (deep vein thrombosis) On: 25-Jun-2018 Request Comments: standing order PT (PROTHROMBIN TIME) ([id number]) : standing orderIndication: History of DVT (deep vein thrombosis) On: 24-Jun-2018 Request Comments: standing order PT (PROTHROMBIN TIME) ([id number]) : standing orderIndication: History of DVT (deep vein thrombosis) On: 24-Jun-2018 Request Comments: standing order PT (PROTHROMBIN TIME) ([id number]) : standing orderIndication: History of DVT (deep vein thrombosis) On: 23-Jun-2018 Request Comments: standing order PT (PROTHROMBIN TIME) ([id number]) : standing orderIndication: History of DVT (deep vein thrombosis) On: 23-Jun-2018 Request Comments: standing order PT (PROTHROMBIN TIME) ([id number]) : standing orderIndication: History of DVT (deep vein thrombosis) On: 22-Jun-2018 Request Comments: standing order PT (PROTHROMBIN TIME) ([id number]) : standing orderIndication: History of DVT (deep vein thrombosis) On: 22-Jun-2018 Request Comments: standing order PT (PROTHROMBIN TIME) ([id number]) : standing orderIndication: History of DVT (deep vein thrombosis) On: 21-Jun-2018 Request Comments: standing order PT (PROTHROMBIN TIME) ([id number]) : standing orderIndication: History of DVT (deep vein thrombosis) On: 21-Jun-2018 Request Comments: standing order PT (PROTHROMBIN TIME) ([id number]) : standing orderIndication: History of DVT (deep vein thrombosis) On: 20-Jun-2018 Request Comments: standing order PT (PROTHROMBIN TIME) ([id number]) : standing orderIndication: History of DVT (deep vein thrombosis) On: 20-Jun-2018 Request Comments: standing order PT (PROTHROMBIN TIME) ([id number]) : standing orderIndication: History of DVT (deep vein thrombosis) On: 19-Jun-2018 Request Comments: standing order PT (PROTHROMBIN TIME) ([id number]) : standing orderIndication: History of DVT (deep vein thrombosis) On: 19-Jun-2018 Request Comments: standing order PT (PROTHROMBIN TIME) ([id number]) : standing orderIndication: History of DVT (deep vein thrombosis) On: 18-Jun-2018 Request Comments: standing order PT (PROTHROMBIN TIME) ([id number]) : standing orderIndication: History of DVT (deep vein thrombosis) On: 18-Jun-2018 Request Comments: standing order PT (PROTHROMBIN TIME) ([id number]) : standing orderIndication: History of DVT (deep vein thrombosis) On: 17-Jun-2018 Request Comments: standing order PT (PROTHROMBIN TIME) ([id number]) : standing orderIndication: History of DVT (deep vein thrombosis) On: 17-Jun-2018 Request Comments: standing order PT (PROTHROMBIN TIME) ([id number]) : standing orderIndication: History of DVT (deep vein thrombosis) On: 16-Jun-2018 Request Comments: standing order PT (PROTHROMBIN TIME) ([id number]) : standing orderIndication: History of DVT (deep vein thrombosis) On: 16-Jun-2018 Request Comments: standing order PT (PROTHROMBIN TIME) ([id number]) : standing orderIndication: History of DVT (deep vein thrombosis) On: 15-Jun-2018 Request Comments: standing order PT (PROTHROMBIN TIME) ([id number]) : standing orderIndication: History of DVT (deep vein thrombosis) On: 15-Jun-2018 Request Comments: standing order PT (PROTHROMBIN TIME) ([id number]) : standing orderIndication: History of DVT (deep vein thrombosis) On: 14-Jun-2018 Request Comments: standing order PT (PROTHROMBIN TIME) ([id number]) : standing orderIndication: History of DVT (deep vein thrombosis) On: 14-Jun-2018 Request Comments: standing order PT (PROTHROMBIN TIME) ([id number]) : standing orderIndication: History of DVT (deep vein thrombosis) On: 13-Jun-2018 Request Comments: standing order PT (PROTHROMBIN TIME) ([id number]) : standing orderIndication: History of DVT (deep vein thrombosis) On: 13-Jun-2018 Request Comments: standing order PT (PROTHROMBIN TIME) ([id number]) : standing orderIndication: History of DVT (deep vein thrombosis) On: 12-Jun-2018 Request Comments: standing order PT (PROTHROMBIN TIME) ([id number]) : standing orderIndication: History of DVT (deep vein thrombosis) On: 12-Jun-2018 Request Comments: standing order PT (PROTHROMBIN TIME) ([id number]) : standing orderIndication: History of DVT (deep vein thrombosis) On: 11-Jun-2018 Request Comments: standing order PT (PROTHROMBIN TIME) ([id number]) : standing orderIndication: History of DVT (deep vein thrombosis) On: 11-Jun-2018 Request Comments: standing order PT (PROTHROMBIN TIME) ([id number]) : standing orderIndication: History of DVT (deep vein thrombosis) On: 10-Jun-2018 Request Comments: standing order PT (PROTHROMBIN TIME) ([id number]) : standing orderIndication: History of DVT (deep vein thrombosis) On: 10-Jun-2018 Request Comments: standing order PT (PROTHROMBIN TIME) ([id number]) : standing orderIndication: History of DVT (deep vein thrombosis) On: 09-Jun-2018 Request Comments: standing order PT (PROTHROMBIN TIME) ([id number]) : standing orderIndication: History of DVT (deep vein thrombosis) On: 09-Jun-2018 Request Comments: standing order PT (PROTHROMBIN TIME) ([id number]) : standing orderIndication: History of DVT (deep vein thrombosis) On: 08-Jun-2018 Request Comments: standing order PT (PROTHROMBIN TIME) ([id number]) : standing orderIndication: History of DVT (deep vein thrombosis) On: 08-Jun-2018 Request Comments: standing order PT (PROTHROMBIN TIME) ([id number]) : standing orderIndication: History of DVT (deep vein thrombosis) On: 07-Jun-2018 Request Comments: standing order PT (PROTHROMBIN TIME) ([id number]) : standing orderIndication: History of DVT (deep vein thrombosis) On: 07-Jun-2018 Request Comments: standing order PT (PROTHROMBIN TIME) ([id number]) : standing orderIndication: History of DVT (deep vein thrombosis) On: 06-Jun-2018 Request Comments: standing order PT (PROTHROMBIN TIME) ([id number]) : standing orderIndication: History of DVT (deep vein thrombosis) On: 06-Jun-2018 Request Comments: standing order PT (PROTHROMBIN TIME) ([id number]) : standing orderIndication: History of DVT (deep vein thrombosis) On: 05-Jun-2018 Request Comments: standing order PT (PROTHROMBIN TIME) ([id number]) : standing orderIndication: History of DVT (deep vein thrombosis) On: 05-Jun-2018 Request Comments: standing order PT (PROTHROMBIN TIME) ([id number]) : standing orderIndication: History of DVT (deep vein thrombosis) On: 04-Jun-2018 Request Comments: standing order PT (PROTHROMBIN TIME) ([id number]) : standing orderIndication: History of DVT (deep vein thrombosis) On: 04-Jun-2018 Request Comments: standing order PT (PROTHROMBIN TIME) ([id number]) : standing orderIndication: History of DVT (deep vein thrombosis) On: 03-Jun-2018 Request Comments: standing order PT (PROTHROMBIN TIME) ([id number]) : standing orderIndication: History of DVT (deep vein thrombosis) On: 03-Jun-2018 Request Comments: standing order PT (PROTHROMBIN TIME) ([id number]) : standing orderIndication: History of DVT (deep vein thrombosis) On: 02-Jun-2018 Request Comments: standing order PT (PROTHROMBIN TIME) ([id number]) : standing orderIndication: History of DVT (deep vein thrombosis) On: 02-Jun-2018 Request Comments: standing order PT (PROTHROMBIN TIME) ([id number]) : standing orderIndication: History of DVT (deep vein thrombosis) On: 01-Jun-2018 Request Comments: standing order PT (PROTHROMBIN TIME) ([id number]) : standing orderIndication: History of DVT (deep vein thrombosis) On: 01-Jun-2018 Request Comments: standing order PT (PROTHROMBIN TIME) ([id number])Indication: History of DVT (deep vein thrombosis) On: 31-May-2018 Request PT (PROTHROMBIN TIME) ([id number]) : standing orderIndication: History of DVT (deep vein thrombosis) On: 31-May-2018 Request Comments: standing order PT (PROTHROMBIN TIME) ([id number]) : standing orderIndication: History of DVT (deep vein thrombosis) On: 31-May-2018 Request Comments: standing order PT (PROTHROMBIN TIME) ([id number]) : standing orderIndication: History of DVT (deep vein thrombosis) On: 31-May-2018 Request Comments: standing order PT (PROTHROMBIN TIME) ([id number]) : standing orderIndication: History of DVT (deep vein thrombosis) On: 30-May-2018 Request Comments: standing order PT (PROTHROMBIN TIME) ([id number]) : standing orderIndication: History of DVT (deep vein thrombosis) On: 30-May-2018 Request Comments: standing order PT (PROTHROMBIN TIME) ([id number]) : standing orderIndication: History of DVT (deep vein thrombosis) On: 29-May-2018 Request Comments: standing order PT (PROTHROMBIN TIME) ([id number]) : standing orderIndication: History of DVT (deep vein thrombosis) On: 29-May-2018 Request Comments: standing order PT (PROTHROMBIN TIME) ([id number]) : standing orderIndication: History of DVT (deep vein thrombosis) On: 28-May-2018 Request Comments: standing order PT (PROTHROMBIN TIME) ([id number]) : standing orderIndication: History of DVT (deep vein thrombosis) On: 28-May-2018 Request Comments: standing order PT (PROTHROMBIN TIME) ([id number]) : standing orderIndication: History of DVT (deep vein thrombosis) On: 27-May-2018 Request Comments: standing order PT (PROTHROMBIN TIME) ([id number]) : standing orderIndication: History of DVT (deep vein thrombosis) On: 27-May-2018 Request Comments: standing order PT (PROTHROMBIN TIME) ([id number]) : standing orderIndication: History of DVT (deep vein thrombosis) On: 26-May-2018 Request Comments: standing order PT (PROTHROMBIN TIME) ([id number]) : standing orderIndication: History of DVT (deep vein thrombosis) On: 26-May-2018 Request Comments: standing order PT (PROTHROMBIN TIME) ([id number]) : standing orderIndication: History of DVT (deep vein thrombosis) On: 25-May-2018 Request Comments: standing order PT (PROTHROMBIN TIME) ([id number]) : standing orderIndication: History of DVT (deep vein thrombosis) On: 25-May-2018 Request Comments: standing order PT (PROTHROMBIN TIME) ([id number]) : standing orderIndication: History of DVT (deep vein thrombosis) On: 24-May-2018 Request Comments: standing order PT (PROTHROMBIN TIME) ([id number]) : standing orderIndication: History of DVT (deep vein thrombosis) On: 24-May-2018 Request Comments: standing order PT (Prothrobim Time) ([id number])Indication: Anticoagulated on Coumadin On: 23-May-2018 Request PT (PROTHROMBIN TIME) ([id number]) : standing orderIndication: History of DVT (deep vein thrombosis) On: 23-May-2018 Request Comments: standing order PT (PROTHROMBIN TIME) ([id number]) : standing orderIndication: History of DVT (deep vein thrombosis) On: 23-May-2018 Request Comments: standing order PT (PROTHROMBIN TIME) ([id number]) : standing orderIndication: History of DVT (deep vein thrombosis) On: 22-May-2018 Request Comments: standing order PT (PROTHROMBIN TIME) ([id number]) : standing orderIndication: History of DVT (deep vein thrombosis) On: 22-May-2018 Request Comments: standing order PT (PROTHROMBIN TIME) ([id number]) : standing orderIndication: History of DVT (deep vein thrombosis) On: 21-May-2018 Request Comments: standing order PT (PROTHROMBIN TIME) ([id number]) : standing orderIndication: History of DVT (deep vein thrombosis) On: 21-May-2018 Request Comments: standing order PT (PROTHROMBIN TIME) ([id number]) : standing orderIndication: History of DVT (deep vein thrombosis) On: 20-May-2018 Request Comments: standing order PT (PROTHROMBIN TIME) ([id number]) : standing orderIndication: History of DVT (deep vein thrombosis) On: 20-May-2018 Request Comments: standing order PT (PROTHROMBIN TIME) ([id number]) : standing orderIndication: History of DVT (deep vein thrombosis) On: 19-May-2018 Request Comments: standing order PT (PROTHROMBIN TIME) ([id number]) : standing orderIndication: History of DVT (deep vein thrombosis) On: 19-May-2018 Request Comments: standing order PT (PROTHROMBIN TIME) ([id number]) : standing orderIndication: History of DVT (deep vein thrombosis) On: 18-May-2018 Request Comments: standing order PT (PROTHROMBIN TIME) ([id number]) : standing orderIndication: History of DVT (deep vein thrombosis) On: 18-May-2018 Request Comments: standing order PT (PROTHROMBIN TIME) ([id number]) : standing orderIndication: History of DVT (deep vein thrombosis) On: 17-May-2018 Request Comments: standing order PT (PROTHROMBIN TIME) ([id number]) : standing orderIndication: History of DVT (deep vein thrombosis) On: 17-May-2018 Request Comments: standing order PT (Prothrobim Time) ([id number])Indication: Anticoagulated on Coumadin On: 16-May-2018 Request PT (PROTHROMBIN TIME) ([id number]) : standing orderIndication: History of DVT (deep vein thrombosis) On: 16-May-2018 Request Comments: standing order PT (PROTHROMBIN TIME) ([id number]) : standing orderIndication: History of DVT (deep vein thrombosis) On: 16-May-2018 Request Comments: standing order PT (PROTHROMBIN TIME) ([id number]) : standing orderIndication: History of DVT (deep vein thrombosis) On: 15-May-2018 Request Comments: standing order PT (PROTHROMBIN TIME) ([id number]) : standing orderIndication: History of DVT (deep vein thrombosis) On: 15-May-2018 Request Comments: standing order PT (PROTHROMBIN TIME) ([id number]) : standing orderIndication: History of DVT (deep vein thrombosis) On: 14-May-2018 Request Comments: standing order PT (PROTHROMBIN TIME) ([id number]) : standing orderIndication: History of DVT (deep vein thrombosis) On: 14-May-2018 Request Comments: standing order PT (PROTHROMBIN TIME) ([id number]) : standing orderIndication: History of DVT (deep vein thrombosis) On: 13-May-2018 Request Comments: standing order PT (PROTHROMBIN TIME) ([id number]) : standing orderIndication: History of DVT (deep vein thrombosis) On: 13-May-2018 Request Comments: standing order PT (PROTHROMBIN TIME) ([id number]) : standing orderIndication: History of DVT (deep vein thrombosis) On: 12-May-2018 Request Comments: standing order PT (PROTHROMBIN TIME) ([id number]) : standing orderIndication: History of DVT (deep vein thrombosis) On: 12-May-2018 Request Comments: standing order PT (PROTHROMBIN TIME) ([id number]) : standing orderIndication: History of DVT (deep vein thrombosis) On: 11-May-2018 Request Comments: standing order PT (PROTHROMBIN TIME) ([id number]) : standing orderIndication: History of DVT (deep vein thrombosis) On: 11-May-2018 Request Comments: standing order PT (PROTHROMBIN TIME) ([id number]) : standing orderIndication: History of DVT (deep vein thrombosis) On: 10-May-2018 Request Comments: standing order PT (PROTHROMBIN TIME) ([id number]) : standing orderIndication: History of DVT (deep vein thrombosis) On: 10-May-2018 Request Comments: standing order PT (Prothrobim Time) ([id number])Indication: Anticoagulated on Coumadin On: 09-May-2018 Request PT (PROTHROMBIN TIME) ([id number]) : standing orderIndication: History of DVT (deep vein thrombosis) On: 09-May-2018 Request Comments: standing order PT (PROTHROMBIN TIME) ([id number]) : standing orderIndication: History of DVT (deep vein thrombosis) On: 09-May-2018 Request Comments: standing order PT (PROTHROMBIN TIME) ([id number]) : standing orderIndication: History of DVT (deep vein thrombosis) On: 08-May-2018 Request Comments: standing order PT (PROTHROMBIN TIME) ([id number]) : standing orderIndication: History of DVT (deep vein thrombosis) On: 08-May-2018 Request Comments: standing order PT (PROTHROMBIN TIME) ([id number]) : standing orderIndication: History of DVT (deep vein thrombosis) On: 07-May-2018 Request Comments: standing order PT (PROTHROMBIN TIME) ([id number]) : standing orderIndication: History of DVT (deep vein thrombosis) On: 07-May-2018 Request Comments: standing order PT (PROTHROMBIN TIME) ([id number]) : standing orderIndication: History of DVT (deep vein thrombosis) On: 06-May-2018 Request Comments: standing order PT (PROTHROMBIN TIME) ([id number]) : standing orderIndication: History of DVT (deep vein thrombosis) On: 06-May-2018 Request Comments: standing order PT (PROTHROMBIN TIME) ([id number]) : standing orderIndication: History of DVT (deep vein thrombosis) On: 05-May-2018 Request Comments: standing order PT (PROTHROMBIN TIME) ([id number]) : standing orderIndication: History of DVT (deep vein thrombosis) On: 05-May-2018 Request Comments: standing order PT (PROTHROMBIN TIME) ([id number]) : standing orderIndication: History of DVT (deep vein thrombosis) On: 04-May-2018 Request Comments: standing order PT (PROTHROMBIN TIME) ([id number]) : standing orderIndication: History of DVT (deep vein thrombosis) On: 04-May-2018 Request Comments: standing order PT (PROTHROMBIN TIME) ([id number]) : standing orderIndication: History of DVT (deep vein thrombosis) On: 03-May-2018 Request Comments: standing order PT (PROTHROMBIN TIME) ([id number]) : standing orderIndication: History of DVT (deep vein thrombosis) On: 03-May-2018 Request Comments: standing order PT (Prothrobim Time) ([id number])Indication: Anticoagulated on Coumadin On: 02-May-2018 Request PT (PROTHROMBIN TIME) ([id number]) : standing orderIndication: History of DVT (deep vein thrombosis) On: 02-May-2018 Request Comments: standing order PT (PROTHROMBIN TIME) ([id number]) : standing orderIndication: History of DVT (deep vein thrombosis) On: 02-May-2018 Request Comments: standing order PT (PROTHROMBIN TIME) ([id number])Indication: History of DVT (deep vein thrombosis) On: 01-May-2018 Request PT (PROTHROMBIN TIME) ([id number]) : standing orderIndication: History of DVT (deep vein thrombosis) On: 01-May-2018 Request Comments: standing order PT (PROTHROMBIN TIME) ([id number]) : standing orderIndication: History of DVT (deep vein thrombosis) On: 01-May-2018 Request Comments: standing order PT (PROTHROMBIN TIME) ([id number]) : standing orderIndication: History of DVT (deep vein thrombosis) On: 01-May-2018 Request Comments: standing order PT (PROTHROMBIN TIME) ([id number]) : standing orderIndication: History of DVT (deep vein thrombosis) On: 30-Apr-2018 Request Comments: standing order PT (PROTHROMBIN TIME) ([id number]) : standing orderIndication: History of DVT (deep vein thrombosis) On: 30-Apr-2018 Request Comments: standing order PT (PROTHROMBIN TIME) ([id number]) : standing orderIndication: History of DVT (deep vein thrombosis) On: 29-Apr-2018 Request Comments: standing order PT (PROTHROMBIN TIME) ([id number]) : standing orderIndication: History of DVT (deep vein thrombosis) On: 29-Apr-2018 Request Comments: standing order PT (PROTHROMBIN TIME) ([id number]) : standing orderIndication: History of DVT (deep vein thrombosis) On: 28-Apr-2018 Request Comments: standing order PT (PROTHROMBIN TIME) ([id number]) : standing orderIndication: History of DVT (deep vein thrombosis) On: 28-Apr-2018 Request Comments: standing order PT (PROTHROMBIN TIME) ([id number]) : standing orderIndication: History of DVT (deep vein thrombosis) On: 27-Apr-2018 Request Comments: standing order PT (PROTHROMBIN TIME) ([id number]) : standing orderIndication: History of DVT (deep vein thrombosis) On: 27-Apr-2018 Request Comments: standing order PT (PROTHROMBIN TIME) ([id number]) : standing orderIndication: History of DVT (deep vein thrombosis) On: 26-Apr-2018 Request Comments: standing order PT (PROTHROMBIN TIME) ([id number]) : standing orderIndication: History of DVT (deep vein thrombosis) On: 26-Apr-2018 Request Comments: standing order PT (Prothrobim Time) ([id number])Indication: Anticoagulated on Coumadin On: 25-Apr-2018 Request PT (PROTHROMBIN TIME) ([id number]) : standing orderIndication: History of DVT (deep vein thrombosis) On: 25-Apr-2018 Request Comments: standing order PT (PROTHROMBIN TIME) ([id number]) : standing orderIndication: History of DVT (deep vein thrombosis) On: 25-Apr-2018 Request Comments: standing order PT (PROTHROMBIN TIME) ([id number]) : standing orderIndication: History of DVT (deep vein thrombosis) On: 24-Apr-2018 Request Comments: standing order PT (PROTHROMBIN TIME) ([id number]) : standing orderIndication: History of DVT (deep vein thrombosis) On: 24-Apr-2018 Request Comments: standing order PT (PROTHROMBIN TIME) ([id number]) : standing orderIndication: History of DVT (deep vein thrombosis) On: 23-Apr-2018 Request Comments: standing order PT (PROTHROMBIN TIME) ([id number]) : standing orderIndication: History of DVT (deep vein thrombosis) On: 23-Apr-2018 Request Comments: standing order PT (PROTHROMBIN TIME) ([id number]) : standing orderIndication: History of DVT (deep vein thrombosis) On: 22-Apr-2018 Request Comments: standing order PT (PROTHROMBIN TIME) ([id number]) : standing orderIndication: History of DVT (deep vein thrombosis) On: 22-Apr-2018 Request Comments: standing order PT (PROTHROMBIN TIME) ([id number]) : standing orderIndication: History of DVT (deep vein thrombosis) On: 21-Apr-2018 Request Comments: standing order PT (PROTHROMBIN TIME) ([id number]) : standing orderIndication: History of DVT (deep vein thrombosis) On: 21-Apr-2018 Request Comments: standing order PT (PROTHROMBIN TIME) ([id number]) : standing orderIndication: History of DVT (deep vein thrombosis) On: 20-Apr-2018 Request Comments: standing order PT (PROTHROMBIN TIME) ([id number]) : standing orderIndication: History of DVT (deep vein thrombosis) On: 20-Apr-2018 Request Comments: standing order PT (PROTHROMBIN TIME) ([id number]) : standing orderIndication: History of DVT (deep vein thrombosis) On: 19-Apr-2018 Request Comments: standing order PT (PROTHROMBIN TIME) ([id number]) : standing orderIndication: History of DVT (deep vein thrombosis) On: 19-Apr-2018 Request Comments: standing order CBC, Platelets & Auto Diff ([id number])Indication: Leukopenia On: 18-Apr-2018 Request PT (Prothrobim Time) ([id number])Indication: Anticoagulated on Coumadin On: 18-Apr-2018 Request PT (PROTHROMBIN TIME) ([id number]) : standing orderIndication: History of DVT (deep vein thrombosis) On: 18-Apr-2018 Request Comments: standing order PT (PROTHROMBIN TIME) ([id number]) : standing orderIndication: History of DVT (deep vein thrombosis) On: 18-Apr-2018 Request Comments: standing order PT (PROTHROMBIN TIME) ([id number]) : standing orderIndication: History of DVT (deep vein thrombosis) On: 17-Apr-2018 Request Comments: standing order PT (PROTHROMBIN TIME) ([id number]) : standing orderIndication: History of DVT (deep vein thrombosis) On: 17-Apr-2018 Request Comments: standing order PT (PROTHROMBIN TIME) ([id number]) : standing orderIndication: History of DVT (deep vein thrombosis) On: 16-Apr-2018 Request Comments: standing order PT (PROTHROMBIN TIME) ([id number]) : standing orderIndication: History of DVT (deep vein thrombosis) On: 16-Apr-2018 Request Comments: standing order PT (PROTHROMBIN TIME) ([id number]) : standing orderIndication: History of DVT (deep vein thrombosis) On: 15-Apr-2018 Request Comments: standing order PT (PROTHROMBIN TIME) ([id number]) : standing orderIndication: History of DVT (deep vein thrombosis) On: 15-Apr-2018 Request Comments: standing order PT (PROTHROMBIN TIME) ([id number]) : standing orderIndication: History of DVT (deep vein thrombosis) On: 14-Apr-2018 Request Comments: standing order PT (PROTHROMBIN TIME) ([id number]) : standing orderIndication: History of DVT (deep vein thrombosis) On: 14-Apr-2018 Request Comments: standing order PT (PROTHROMBIN TIME) ([id number]) : standing orderIndication: History of DVT (deep vein thrombosis) On: 13-Apr-2018 Request Comments: standing order PT (PROTHROMBIN TIME) ([id number]) : standing orderIndication: History of DVT (deep vein thrombosis) On: 13-Apr-2018 Request Comments: standing order PT (PROTHROMBIN TIME) ([id number]) : standing orderIndication: History of DVT (deep vein thrombosis) On: 12-Apr-2018 Request Comments: standing order PT (PROTHROMBIN TIME) ([id number]) : standing orderIndication: History of DVT (deep vein thrombosis) On: 12-Apr-2018 Request Comments: standing order PT (Prothrobim Time) ([id number])Indication: Anticoagulated on Coumadin On: 11-Apr-2018 Request PT (PROTHROMBIN TIME) ([id number]) : standing orderIndication: History of DVT (deep vein thrombosis) On: 11-Apr-2018 Request Comments: standing order PT (PROTHROMBIN TIME) ([id number]) : standing orderIndication: History of DVT (deep vein thrombosis) On: 11-Apr-2018 Request Comments: standing order PT (PROTHROMBIN TIME) ([id number]) : standing orderIndication: History of DVT (deep vein thrombosis) On: 10-Apr-2018 Request Comments: standing order PT (PROTHROMBIN TIME) ([id number]) : standing orderIndication: History of DVT (deep vein thrombosis) On: 10-Apr-2018 Request Comments: standing order PT (PROTHROMBIN TIME) ([id number]) : standing orderIndication: History of DVT (deep vein thrombosis) On: 09-Apr-2018 Request Comments: standing order PT (PROTHROMBIN TIME) ([id number]) : standing orderIndication: History of DVT (deep vein thrombosis) On: 09-Apr-2018 Request Comments: standing order PT (PROTHROMBIN TIME) ([id number]) : standing orderIndication: History of DVT (deep vein thrombosis) On: 08-Apr-2018 Request Comments: standing order PT (PROTHROMBIN TIME) ([id number]) : standing orderIndication: History of DVT (deep vein thrombosis) On: 08-Apr-2018 Request Comments: standing order PT (PROTHROMBIN TIME) ([id number]) : standing orderIndication: History of DVT (deep vein thrombosis) On: 07-Apr-2018 Request Comments: standing order PT (PROTHROMBIN TIME) ([id number]) : standing orderIndication: History of DVT (deep vein thrombosis) On: 07-Apr-2018 Request Comments: standing order PT (PROTHROMBIN TIME) ([id number]) : standing orderIndication: History of DVT (deep vein thrombosis) On: 06-Apr-2018 Request Comments: standing order PT (PROTHROMBIN TIME) ([id number]) : standing orderIndication: History of DVT (deep vein thrombosis) On: 06-Apr-2018 Request Comments: standing order PT (PROTHROMBIN TIME) ([id number]) : standing orderIndication: History of DVT (deep vein thrombosis) On: 05-Apr-2018 Request Comments: standing order PT (PROTHROMBIN TIME) ([id number]) : standing orderIndication: History of DVT (deep vein thrombosis) On: 05-Apr-2018 Request Comments: standing order PT (Prothrobim Time) ([id number])Indication: Anticoagulated on Coumadin On: 04-Apr-2018 Request PT (PROTHROMBIN TIME) ([id number]) : standing orderIndication: History of DVT (deep vein thrombosis) On: 04-Apr-2018 Request Comments: standing order PT (PROTHROMBIN TIME) ([id number]) : standing orderIndication: History of DVT (deep vein thrombosis) On: 04-Apr-2018 Request Comments: standing order PT (PROTHROMBIN TIME) ([id number]) : standing orderIndication: History of DVT (deep vein thrombosis) On: 03-Apr-2018 Request Comments: standing order PT (PROTHROMBIN TIME) ([id number]) : standing orderIndication: History of DVT (deep vein thrombosis) On: 03-Apr-2018 Request Comments: standing order PT (PROTHROMBIN TIME) ([id number]) : standing orderIndication: History of DVT (deep vein thrombosis) On: 02-Apr-2018 Request Comments: standing order PT (PROTHROMBIN TIME) ([id number]) : standing orderIndication: History of DVT (deep vein thrombosis) On: 02-Apr-2018 Request Comments: standing order PT (PROTHROMBIN TIME) ([id number])Indication: History of DVT (deep vein thrombosis) On: 01-Apr-2018 Request PT (PROTHROMBIN TIME) ([id number]) : standing orderIndication: History of DVT (deep vein thrombosis) On: 01-Apr-2018 Request Comments: standing order PT (PROTHROMBIN TIME) ([id number]) : standing orderIndication: History of DVT (deep vein thrombosis) On: 01-Apr-2018 Request Comments: standing order PT (PROTHROMBIN TIME) ([id number]) : standing orderIndication: History of DVT (deep vein thrombosis) On: 01-Apr-2018 Request Comments: standing order PT (PROTHROMBIN TIME) ([id number]) : standing orderIndication: History of DVT (deep vein thrombosis) On: 31-Mar-2018 Request Comments: standing order PT (PROTHROMBIN TIME) ([id number]) : standing orderIndication: History of DVT (deep vein thrombosis) On: 31-Mar-2018 Request Comments: standing order PT (PROTHROMBIN TIME) ([id number]) : standing orderIndication: History of DVT (deep vein thrombosis) On: 30-Mar-2018 Request Comments: standing order PT (PROTHROMBIN TIME) ([id number]) : standing orderIndication: History of DVT (deep vein thrombosis) On: 30-Mar-2018 Request Comments: standing order PT (PROTHROMBIN TIME) ([id number]) : standing orderIndication: History of DVT (deep vein thrombosis) On: 29-Mar-2018 Request Comments: standing order PT (PROTHROMBIN TIME) ([id number]) : standing orderIndication: History of DVT (deep vein thrombosis) On: 29-Mar-2018 Request Comments: standing order PT (Prothrobim Time) ([id number])Indication: Anticoagulated on Coumadin On: 28-Mar-2018 Request PT (PROTHROMBIN TIME) ([id number]) : standing orderIndication: History of DVT (deep vein thrombosis) On: 28-Mar-2018 Request Comments: standing order PT (PROTHROMBIN TIME) ([id number]) : standing orderIndication: History of DVT (deep vein thrombosis) On: 28-Mar-2018 Request Comments: standing order PT (PROTHROMBIN TIME) ([id number]) : standing orderIndication: History of DVT (deep vein thrombosis) On: 27-Mar-2018 Request Comments: standing order PT (PROTHROMBIN TIME) ([id number]) : standing orderIndication: History of DVT (deep vein thrombosis) On: 27-Mar-2018 Request Comments: standing order PT (PROTHROMBIN TIME) ([id number]) : standing orderIndication: History of DVT (deep vein thrombosis) On: 26-Mar-2018 Request Comments: standing order PT (PROTHROMBIN TIME) ([id number]) : standing orderIndication: History of DVT (deep vein thrombosis) On: 26-Mar-2018 Request Comments: standing order PT (PROTHROMBIN TIME) ([id number]) : standing orderIndication: History of DVT (deep vein thrombosis) On: 25-Mar-2018 Request Comments: standing order PT (PROTHROMBIN TIME) ([id number]) : standing orderIndication: History of DVT (deep vein thrombosis) On: 25-Mar-2018 Request Comments: standing order PT (PROTHROMBIN TIME) ([id number]) : standing orderIndication: History of DVT (deep vein thrombosis) On: 24-Mar-2018 Request Comments: standing order PT (PROTHROMBIN TIME) ([id number]) : standing orderIndication: History of DVT (deep vein thrombosis) On: 24-Mar-2018 Request Comments: standing order PT (PROTHROMBIN TIME) ([id number]) : standing orderIndication: History of DVT (deep vein thrombosis) On: 23-Mar-2018 Request Comments: standing order PT (PROTHROMBIN TIME) ([id number]) : standing orderIndication: History of DVT (deep vein thrombosis) On: 23-Mar-2018 Request Comments: standing order PT (PROTHROMBIN TIME) ([id number]) : standing orderIndication: History of DVT (deep vein thrombosis) On: 22-Mar-2018 Request Comments: standing order PT (PROTHROMBIN TIME) ([id number]) : standing orderIndication: History of DVT (deep vein thrombosis) On: 22-Mar-2018 Request Comments: standing order PT (Prothrobim Time) ([id number])Indication: Anticoagulated on Coumadin On: 21-Mar-2018 Request PT (PROTHROMBIN TIME) ([id number]) : standing orderIndication: History of DVT (deep vein thrombosis) On: 21-Mar-2018 Request Comments: standing order PT (PROTHROMBIN TIME) ([id number]) : standing orderIndication: History of DVT (deep vein thrombosis) On: 21-Mar-2018 Request Comments: standing order PT (PROTHROMBIN TIME) ([id number]) : standing orderIndication: History of DVT (deep vein thrombosis) On: 20-Mar-2018 Request Comments: standing order PT (PROTHROMBIN TIME) ([id number]) : standing orderIndication: History of DVT (deep vein thrombosis) On: 20-Mar-2018 Request Comments: standing order PT (PROTHROMBIN TIME) ([id number]) : standing orderIndication: History of DVT (deep vein thrombosis) On: 19-Mar-2018 Request Comments: standing order PT (PROTHROMBIN TIME) ([id number]) : standing orderIndication: History of DVT (deep vein thrombosis) On: 19-Mar-2018 Request Comments: standing order PT (PROTHROMBIN TIME) ([id number]) : standing orderIndication: History of DVT (deep vein thrombosis) On: 18-Mar-2018 Request Comments: standing order PT (PROTHROMBIN TIME) ([id number]) : standing orderIndication: History of DVT (deep vein thrombosis) On: 18-Mar-2018 Request Comments: standing order PT (PROTHROMBIN TIME) ([id number]) : standing orderIndication: History of DVT (deep vein thrombosis) On: 17-Mar-2018 Request Comments: standing order PT (PROTHROMBIN TIME) ([id number]) : standing orderIndication: History of DVT (deep vein thrombosis) On: 17-Mar-2018 Request Comments: standing order PT (PROTHROMBIN TIME) ([id number]) : standing orderIndication: History of DVT (deep vein thrombosis) On: 16-Mar-2018 Request Comments: standing order PT (PROTHROMBIN TIME) ([id number]) : standing orderIndication: History of DVT (deep vein thrombosis) On: 16-Mar-2018 Request Comments: standing order PT (PROTHROMBIN TIME) ([id number]) : standing orderIndication: History of DVT (deep vein thrombosis) On: 15-Mar-2018 Request Comments: standing order PT (PROTHROMBIN TIME) ([id number]) : standing orderIndication: History of DVT (deep vein thrombosis) On: 15-Mar-2018 Request Comments: standing order PT (Prothrobim Time) ([id number])Indication: Anticoagulated on Coumadin On: 14-Mar-2018 Request PT (PROTHROMBIN TIME) ([id number]) : standing orderIndication: History of DVT (deep vein thrombosis) On: 14-Mar-2018 Request Comments: standing order PT (PROTHROMBIN TIME) ([id number]) : standing orderIndication: History of DVT (deep vein thrombosis) On: 14-Mar-2018 Request Comments: standing order PT (PROTHROMBIN TIME) ([id number]) : standing orderIndication: History of DVT (deep vein thrombosis) On: 13-Mar-2018 Request Comments: standing order PT (PROTHROMBIN TIME) ([id number]) : standing orderIndication: History of DVT (deep vein thrombosis) On: 13-Mar-2018 Request Comments: standing order PT (PROTHROMBIN TIME) ([id number]) : standing orderIndication: History of DVT (deep vein thrombosis) On: 12-Mar-2018 Request Comments: standing order PT (PROTHROMBIN TIME) ([id number]) : standing orderIndication: History of DVT (deep vein thrombosis) On: 12-Mar-2018 Request Comments: standing order PT (PROTHROMBIN TIME) ([id number]) : standing orderIndication: History of DVT (deep vein thrombosis) On: 11-Mar-2018 Request Comments: standing order PT (PROTHROMBIN TIME) ([id number]) : standing orderIndication: History of DVT (deep vein thrombosis) On: 11-Mar-2018 Request Comments: standing order PT (PROTHROMBIN TIME) ([id number]) : standing orderIndication: History of DVT (deep vein thrombosis) On: 10-Mar-2018 Request Comments: standing order PT (PROTHROMBIN TIME) ([id number]) : standing orderIndication: History of DVT (deep vein thrombosis) On: 10-Mar-2018 Request Comments: standing order PT (PROTHROMBIN TIME) ([id number]) : standing orderIndication: History of DVT (deep vein thrombosis) On: 09-Mar-2018 Request Comments: standing order PT (PROTHROMBIN TIME) ([id number]) : standing orderIndication: History of DVT (deep vein thrombosis) On: 09-Mar-2018 Request Comments: standing order PT (PROTHROMBIN TIME) ([id number]) : standing orderIndication: History of DVT (deep vein thrombosis) On: 08-Mar-2018 Request Comments: standing order PT (PROTHROMBIN TIME) ([id number]) : standing orderIndication: History of DVT (deep vein thrombosis) On: 08-Mar-2018 Request Comments: standing order PT (Prothrobim Time) ([id number])Indication: Anticoagulated on Coumadin On: 07-Mar-2018 Request PT (PROTHROMBIN TIME) ([id number]) : standing orderIndication: History of DVT (deep vein thrombosis) On: 07-Mar-2018 Request Comments: standing order PT (PROTHROMBIN TIME) ([id number]) : standing orderIndication: History of DVT (deep vein thrombosis) On: 07-Mar-2018 Request Comments: standing order PT (PROTHROMBIN TIME) ([id number]) : standing orderIndication: History of DVT (deep vein thrombosis) On: 06-Mar-2018 Request Comments: standing order PT (PROTHROMBIN TIME) ([id number]) : standing orderIndication: History of DVT (deep vein thrombosis) On: 06-Mar-2018 Request Comments: standing order PT (PROTHROMBIN TIME) ([id number]) : standing orderIndication: History of DVT (deep vein thrombosis) On: 05-Mar-2018 Request Comments: standing order PT (PROTHROMBIN TIME) ([id number]) : standing orderIndication: History of DVT (deep vein thrombosis) On: 05-Mar-2018 Request Comments: standing order PT (PROTHROMBIN TIME) ([id number]) : standing orderIndication: History of DVT (deep vein thrombosis) On: 04-Mar-2018 Request Comments: standing order PT (PROTHROMBIN TIME) ([id number]) : standing orderIndication: History of DVT (deep vein thrombosis) On: 04-Mar-2018 Request Comments: standing order PT (PROTHROMBIN TIME) ([id number]) : standing orderIndication: History of DVT (deep vein thrombosis) On: 03-Mar-2018 Request Comments: standing order PT (PROTHROMBIN TIME) ([id number]) : standing orderIndication: History of DVT (deep vein thrombosis) On: 03-Mar-2018 Request Comments: standing order PT (PROTHROMBIN TIME) ([id number])Indication: History of DVT (deep vein thrombosis) On: 77-Rjw-160298:54 Request PT (PROTHROMBIN TIME) ([id number]) : standing orderIndication: History of DVT (deep vein thrombosis) On: 23-Njh-011398:48 Request Comments: standing order PT (Prothrobim Time) ([id number])Indication: Anticoagulated on Coumadin On: 28-Feb-2018 Request PT (Prothrobim Time) ([id number])Indication: Anticoagulated on Coumadin On: 21-Feb-2018 Request PT (Prothrobim Time) ([id number])Indication: Anticoagulated on Coumadin On: 14-Feb-2018 Request YURIY (ANTINUCLEAR ANTIBODY) ([id number])Indication: Leukopenia On: 9-Kyw-807490:30 Request Comments: give lab slips UPEP ([id number])Indication: Leukopenia On: 0-Fov-393375:30 Request Comments: give lab slips SPEP ([id number])Indication: Leukopenia On: 1-Ele-225067:29 Request Comments: give lab slips PT (Prothrobim Time) ([id number])Indication: Anticoagulated on Coumadin On: 07-Feb-2018 Request PT (Prothrobim Time) ([id number])Indication: Anticoagulated on Coumadin On: 31-Jan-2018 Request PT (Prothrobim Time) ([id number])Indication: Anticoagulated on Coumadin On: 24-Jan-2018 Request PT (Prothrobim Time) ([id number])Indication: Anticoagulated on Coumadin On: 17-Jan-2018 Request PT (Prothrobim Time) ([id number])Indication: Anticoagulated on Coumadin On: 10-Jan-2018 Request PT (Prothrobim Time) ([id number])Indication: Anticoagulated on Coumadin On: 03-Jan-2018 Request PT (Prothrobim Time) ([id number])Indication: Anticoagulated on Coumadin On: 27-Dec-2017 Request PT (Prothrobim Time) ([id number])Indication: Anticoagulated on Coumadin On: 20-Dec-2017 Request BILIRUBIN, TOTAL ([id number])Indication: Encounter for screening for lipid disorder On: 39-Wpp-270313:28 Request BILIRUBIN, DIRECT ([id number])Indication: Encounter for screening for lipid disorder On: 07-Fuk-844678:28 Request CBC, PLATELETS & AUT DIFF ([id number])Indication: Encounter for screening for lipid disorder On: 35-Ucg-050755:47 Request Metabolic Panel, Comprehensive ([id number])Indication: Encounter for screening for lipid disorder On: 99-Fqa-78449:10 Request CBC & PLATELETS (AUTO) ([id number])Indication: Encounter for screening for lipid disorder On: 31-Ypa-49395:10 Request LIPID PANEL ([id number])Indication: Encounter for screening for lipid disorder On: 22-Btv-58709:09 Request PT (Prothrobim Time) ([id number])Indication: Anticoagulated on Coumadin On: 13-Dec-2017 Request PT (Prothrobim Time) ([id number])Indication: Anticoagulated on Coumadin On: 06-Dec-2017 Request PT (Prothrobim Time) ([id number])Indication: Anticoagulated on Coumadin On: 29-Nov-2017 Request PT (Prothrobim Time) ([id number])Indication: Anticoagulated on Coumadin On: 22-Nov-2017 Request PT (Prothrobim Time) ([id number])Indication: Anticoagulated on Coumadin On: 15-Nov-2017 Request PT (Prothrobim Time) ([id number])Indication: Anticoagulated on Coumadin On: 08-Nov-2017 Request PT (Prothrobim Time) ([id number])Indication: Anticoagulated on Coumadin On: 01-Nov-2017 Request PT (Prothrobim Time) ([id number])Indication: Anticoagulated on Coumadin On: 25-Oct-2017 Request PT (Prothrobim Time) ([id number])Indication: Anticoagulated on Coumadin On: 18-Oct-2017 Request PT (Prothrobim Time) ([id number])Indication: Anticoagulated on Coumadin On: 11-Oct-2017 Request PT (Prothrobim Time) ([id number])Indication: Anticoagulated on Coumadin On: 04-Oct-2017 Request PT (Prothrobim Time) ([id number])Indication: Anticoagulated on Coumadin On: 27-Sep-2017 Request PT (Prothrobim Time) ([id number])Indication: Anticoagulated on Coumadin On: 20-Sep-2017 Request PT (Prothrobim Time) ([id number])Indication: Anticoagulated on Coumadin On: 13-Sep-2017 Request PT (Prothrobim Time) ([id number])Indication: Anticoagulated on Coumadin On: 06-Sep-2017 Request PT (Prothrobim Time) ([id number])Indication: Anticoagulated on Coumadin On: 30-Aug-2017 Request PT (Prothrobim Time) ([id number])Indication: Anticoagulated on Coumadin On: 23-Aug-2017 Request PT (Prothrobim Time) ([id number])Indication: Anticoagulated on Coumadin On: 16-Aug-2017 Request PT (Prothrobim Time) ([id number])Indication: Anticoagulated on Coumadin On: 09-Aug-2017 Request PT (Prothrobim Time) ([id number])Indication: Anticoagulated on Coumadin On: 02-Aug-2017 Request PT (Prothrobim Time) ([id number])Indication: Anticoagulated on Coumadin On: 26-Jul-2017 Request PT (Prothrobim Time) ([id number])Indication: Anticoagulated on Coumadin On: 19-Jul-2017 Request PT (Prothrobim Time) ([id number])Indication: Anticoagulated on Coumadin On: 12-Jul-2017 Request PT (Prothrobim Time) ([id number])Indication: Anticoagulated on Coumadin On: 05-Jul-2017 Request PT (Prothrobim Time) ([id number])Indication: Anticoagulated on Coumadin On: 28-Jun-2017 Request PT (Prothrobim Time) ([id number])Indication: Anticoagulated on Coumadin On: 21-Jun-2017 Request PT (Prothrobim Time) ([id number])Indication: Anticoagulated on Coumadin On: 14-Jun-2017 Request PT (Prothrobim Time) ([id number])Indication: Anticoagulated on Coumadin On: 07-Jun-2017 Request PT (Prothrobim Time) ([id number])Indication: Anticoagulated on Coumadin On: 31-May-2017 Request PT (Prothrobim Time) ([id number])Indication: Anticoagulated on Coumadin On: 25-May-2017 Request PT (Prothrobim Time) ([id number])Indication: Anticoagulated on Coumadin On: 25-May-2017 Request PT (Prothrobim Time) ([id number])Indication: Anticoagulated on Coumadin On: 24-May-2017 Request PT (Prothrobim Time) ([id number])Indication: Anticoagulated on Coumadin On: 17-May-2017 Request PT (Prothrobim Time) ([id number])Indication: Anticoagulated on Coumadin On: 10-May-2017 Request PT (Prothrobim Time) ([id number])Indication: Anticoagulated on Coumadin On: 03-May-2017 Request PT (Prothrobim Time) ([id number])Indication: Anticoagulated on Coumadin On: 26-Apr-2017 Request PT (Prothrobim Time) ([id number])Indication: Anticoagulated on Coumadin On: 25-Apr-2017 Request PT (Prothrobim Time) ([id number])Indication: Anticoagulated on Coumadin On: 25-Apr-2017 Request PT (Prothrobim Time) ([id number])Indication: Anticoagulated on Coumadin On: 19-Apr-2017 Request PT (Prothrobim Time) ([id number])Indication: Anticoagulated on Coumadin On: 12-Apr-2017 Request PT (Prothrobim Time) ([id number])Indication: Anticoagulated on Coumadin On: 05-Apr-2017 Request PT (Prothrobim Time) ([id number])Indication: Anticoagulated on Coumadin On: 29-Mar-2017 Request PT (Prothrobim Time) ([id number])Indication: Anticoagulated on Coumadin On: 26-Mar-2017 Request PT (Prothrobim Time) ([id number])Indication: Anticoagulated on Coumadin On: 26-Mar-2017 Request PT (Prothrobim Time) ([id number])Indication: Anticoagulated on Coumadin On: 22-Mar-2017 Request PT (Prothrobim Time) ([id number])Indication: Anticoagulated on Coumadin On: 15-Mar-2017 Request PT (Prothrobim Time) ([id number])Indication: Anticoagulated on Coumadin On: 08-Mar-2017 Request PT (Prothrobim Time) ([id number])Indication: author (current) use of anticoagulants (Renamed from jail current use of anticoagulant therapy) On: 23-Wos-393333:48 Request Comments: Standing order PT (Prothrobim Time) ([id number])Indication: Anticoagulated on Coumadin On: 01-Mar-2017 Request PT (Prothrobim Time) ([id number])Indication: Anticoagulated on Coumadin On: 24-Feb-2017 Request PT (Prothrobim Time) ([id number])Indication: Anticoagulated on Coumadin On: 24-Feb-2017 Request PT (Prothrobim Time) ([id number])Indication: Anticoagulated on Coumadin On: 22-Feb-2017 Request PT (Prothrobim Time) ([id number])Indication: Anticoagulated on Coumadin On: 15-Feb-2017 Request PT (Prothrobim Time) ([id number])Indication: Anticoagulated on Coumadin On: 08-Feb-2017 Request PT (Prothrobim Time) ([id number])Indication: Anticoagulated on Coumadin On: 01-Feb-2017 Request PT (Prothrobim Time) ([id number])Indication: Anticoagulated on Coumadin On: 25-Jan-2017 Request PT (Prothrobim Time) ([id number])Indication: Anticoagulated on Coumadin On: 25-Jan-2017 Request PT (Prothrobim Time) ([id number])Indication: Anticoagulated on Coumadin On: 25-Jan-2017 Request PT (Prothrobim Time) ([id number])Indication: Anticoagulated on Coumadin On: 18-Jan-2017 Request PT (Prothrobim Time) ([id number])Indication: Anticoagulated on Coumadin On: 11-Jan-2017 Request PT (Prothrobim Time) ([id number])Indication: Anticoagulated on Coumadin On: 04-Jan-2017 Request PT (Prothrobim Time) ([id number])Indication: Anticoagulated on Coumadin On: 28-Dec-2016 Request PT (Prothrobim Time) ([id number])Indication: Anticoagulated on Coumadin On: 26-Dec-2016 Request PT (Prothrobim Time) ([id number])Indication: Anticoagulated on Coumadin On: 26-Dec-2016 Request PT (Prothrobim Time) ([id number])Indication: Anticoagulated on Coumadin On: 21-Dec-2016 Request PT (Prothrobim Time) ([id number])Indication: Anticoagulated on Coumadin On: 14-Dec-2016 Request PT (Prothrobim Time) ([id number])Indication: Anticoagulated on Coumadin On: 07-Dec-2016 Request PT (Prothrobim Time) ([id number])Indication: Anticoagulated on Coumadin On: 30-Nov-2016 Request PT (Prothrobim Time) ([id number])Indication: Anticoagulated on Coumadin On: 26-Nov-2016 Request PT (Prothrobim Time) ([id number])Indication: Anticoagulated on Coumadin On: 26-Nov-2016 Request PT (Prothrobim Time) ([id number])Indication: Anticoagulated on Coumadin On: 23-Nov-2016 Request PT (Prothrobim Time) ([id number])Indication: Anticoagulated on Coumadin On: 16-Nov-2016 Request PT (Prothrobim Time) ([id number])Indication: Anticoagulated on Coumadin On: 09-Nov-2016 Request PT (Prothrobim Time) ([id number])Indication: Anticoagulated on Coumadin On: 02-Nov-2016 Request PT (Prothrobim Time) ([id number])Indication: Anticoagulated on Coumadin On: 27-Oct-2016 Request PT (Prothrobim Time) ([id number])Indication: Anticoagulated on Coumadin On: 27-Oct-2016 Request PT (Prothrobim Time) ([id number])Indication: Anticoagulated on Coumadin On: 26-Oct-2016 Request PT (Prothrobim Time) ([id number])Indication: Anticoagulated on Coumadin On: 19-Oct-2016 Request PT (Prothrobim Time) ([id number])Indication: Anticoagulated on Coumadin On: 12-Oct-2016 Request PT (Prothrobim Time) ([id number])Indication: Anticoagulated on Coumadin On: 05-Oct-2016 Request PT (Prothrobim Time) ([id number])Indication: Anticoagulated on Coumadin On: 28-Sep-2016 Request PT (Prothrobim Time) ([id number])Indication: Anticoagulated on Coumadin On: 27-Sep-2016 Request PT (Prothrobim Time) ([id number])Indication: Anticoagulated on Coumadin On: 27-Sep-2016 Request PT (Prothrobim Time) ([id number])Indication: Anticoagulated on Coumadin On: 21-Sep-2016 Request PT (Prothrobim Time) ([id number])Indication: Anticoagulated on Coumadin On: 14-Sep-2016 Request PT (Prothrobim Time) ([id number])Indication: Anticoagulated on Coumadin On: 07-Sep-2016 Request PT (Prothrobim Time) ([id number])Indication: Anticoagulated on Coumadin On: 31-Aug-2016 Request PT (Prothrobim Time) ([id number])Indication: Anticoagulated on Coumadin On: 28-Aug-2016 Request PT (Prothrobim Time) ([id number])Indication: Anticoagulated on Coumadin On: 28-Aug-2016 Request PT (Prothrobim Time) ([id number])Indication: Anticoagulated on Coumadin On: 24-Aug-2016 Request PT (Prothrobim Time) ([id number])Indication: Anticoagulated on Coumadin On: 17-Aug-2016 Request PT (Prothrobim Time) ([id number])Indication: Anticoagulated on Coumadin On: 10-Aug-2016 Request PT (Prothrobim Time) ([id number])Indication: Anticoagulated on Coumadin On: 03-Aug-2016 Request PT (Prothrobim Time) ([id number])Indication: Anticoagulated on Coumadin On: 29-Jul-2016 Request PT (Prothrobim Time) ([id number])Indication: Anticoagulated on Coumadin On: 29-Jul-2016 Request PT (Prothrobim Time) ([id number])Indication: Anticoagulated on Coumadin On: 27-Jul-2016 Request PT (Prothrobim Time) ([id number])Indication: Anticoagulated on Coumadin On: 20-Jul-2016 Request PT (Prothrobim Time) ([id number])Indication: Anticoagulated on Coumadin On: 13-Jul-2016 Request PT (Prothrobim Time) ([id number])Indication: Anticoagulated on Coumadin On: 06-Jul-2016 Request Metabolic Panel, Comprehensive ([id number])Indication: Irritable Bowel Syndrome On: 53-Qty-051474:28 Request TSH ([id number])Indication: Irritable Bowel Syndrome On: 83-Zwo-925260:28 Request CBC, Platelets & Auto Diff ([id number])Indication: Irritable Bowel Syndrome On: 96-Mlb-043253:28 Request PT (Prothrobim Time) ([id number])Indication: Anticoagulated on Coumadin On: 72-Cgn-841522:24 Request PT (Prothrobim Time) ([id number])Indication: DVT (deep venous thrombosis) On: 43-Vmv-934231:11 Request Comments: INR - STANDING ORDER Vitamin D Hydroxy ([id number])Indication: Osteoporosis On: :16 Request TSH ([id number])Indication: Osteoporosis On: 12-Syj-737984:16 Request CBC with auto diff ([id number])Indication: Benign Essential Hypertension On: 51-Crw-787985:16 Request METABOLIC PANEL, COMPREHENSIVE ([id number])Indication: Benign Essential Hypertension On: 17-Bbc-658593:16 Request LIPID PANEL ([id number])Indication: Hyperlipidemia On: 78-Htg-091391:16 Request CBC W/AUTO DIFF WBC ([id number])Indication: Benign Essential Hypertension On: :34 Request METABOLIC PANEL, COMPREHENSIVE ([id number])Indication: Benign Essential Hypertension On: :34 Request TSH ([id number])Indication: Osteoporosis On: :39 Request CBC W/AUTO DIFF WBC ([id number])Indication: Osteoporosis On: :39 Request LIPID PANEL ([id number])Indication: Hyperlipidemia On: :38 Request METABOLIC PANEL, COMPREHENSIVE ([id number])Indication: Benign Essential Hypertension On: :38 Request PT (Prothrobim Time) ([id number])Indication: DVT (deep venous thrombosis) On: 2-Jwf-349178:18 Request Comments: FINGER STICKSTANDING ORDER PT (Prothrobim Time) ([id number])Indication: DVT (deep venous thrombosis) On: 48-Gqw-549600:28 Request Comments: Standing Order URINALYSIS, W/ MICRO ([id number])Indication: Benign Essential Hypertension On: :37 Request METABOLIC PANEL, COMPREHENSIVE ([id number])Indication: Benign Essential Hypertension On: :37 Request LIPID PANEL ([id number])Indication: Hyperlipidemia On: :37 Request CBC W/AUTO DIFF WBC ([id number])Indication: DVT (deep venous thrombosis) On: :37 Request PT (Prothrobim Time) ([id number])Indication: DVT (deep venous thrombosis) On: 80-Iat-965874:02 Request CBC WITH MANUAL DIFF ([id number])Indication: Benign Essential Hypertension On: :39 Request METABOLIC PANEL, COMPREHENSIVE ([id number])Indication: Hyperlipidemia On: :39 Request LIPID PANEL ([id number])Indication: Hyperlipidemia On: :39 Request PT (Prothrobim Time) ([id number])Indication: DVT (deep venous thrombosis) On: 63-Foo-42474:07 Request Comments: 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 Dr Hunter with results on 05/20/13 PT (Prothrobim Time) ([id number])Indication: DVT (deep venous thrombosis) On: 76-Ris-622088:00 Request Comments: Standing Order PT (Prothrobim Time) ([id number])Indication: DVT (deep venous thrombosis) On: 73-Heq-00001:59 Request Comments: INR - STANDING ORDER x 1 year URINALYSIS, W/ MICRO ([id number])Indication: Benign Essential Hypertension On: :15 Request CBC WITH MANUAL DIFF ([id number])Indication: Benign Essential Hypertension On: :15 Request METABOLIC PANEL, COMPREHENSIVE ([id number])Indication: Benign Essential Hypertension On: :14 Request LIPID PANEL ([id number])Indication: Hyperlipidemia On: :14 Request METABOLIC PANEL, COMPREHENSIVE ([id number])Indication: Benign Essential Hypertension On: :06 Request LIPID PANEL ([id number])Indication: Hyperlipidemia On: :06 Request URINE HANNAH CULTURE-IDENTIFICATN ([id number])Indication: Urinary frequency On: 07-Sep-20128:56 Request URINE HANNAH CULTURE-IDENTIFICATN ([id number])Indication: Insect bite On: 81-Jwk-173145:19 Request Lyme Disease,Serum, Western Blot ([id number])Indication: Insect bite On: 96-Obe-394576:19 Request PT (Prothrobim Time) ([id number])Indication: DVT (deep venous thrombosis) On: 45-Mko-754480:59 Request Comments: standing order LIPID PANEL ([id number])Indication: FAMILY HISTORY OF ISCHEMIC HEART DISEASE On: 79-Oij-016702:28 Request LIPID PANEL ([id number])Indication: FAMILY HISTORY OF ISCHEMIC HEART DISEASE On: 6-Dbj-413869:51 Request Vitamin D Hydroxy ([id number])Indication: Osteoporosis On: 0-Dim-422543:18 Request TSH ([id number])Indication: Osteoporosis On: :18 Request URINALYSIS, W/ MICRO ([id number])Indication: Osteoporosis On: :18 Request CBC WITH MANUAL DIFF ([id number])Indication: Osteoporosis On: 6-Pcw-075574:18 Request METABOLIC PANEL, COMPREHENSIVE ([id number])Indication: Osteoporosis On: 1-Gwu-591745:18 Request PTT (Activated Partial Thromboplastin Time) ([id number])Indication: DVT (deep venous thrombosis) On: 0-Uhe-271882:16 Request PT (Prothrobim Time) ([id number])Indication: DVT (deep venous thrombosis) On: 3-Lbi-547095:16 Request Planned Encounters Medical; 3 Month FU - On: 17-May-2018 8:30 [facility] Selam Blair CNP, CNP, Mary E Planned Procedures DOPPLER ULTRASOUND OF LEFT LOWER On: 14-Feb-2018 Intent EXTREMITY FOR VENOUS THROMBOEMBOLISM Comments: STAT R/O DVT-Hx of DVT ([id number])By: Sigrid Mobley DEXA SCAN AXIAL SKELETON ([id number])By: On: 17-Dec-2017 Intent Selam Blair CNP, CNP, Mary E Aerosol Treatment ([id number])By: Johnnie On: 02-Jun-2017 Intent Selam DAVIES CNP, Mary E Ultrasound - LiverBy: Selam Blair CNP On: 15-Dec-2016 Intent E Selam Blair CNP E Aerosol Treatment ([id number])By: Johnnie On: 13-Oct-2016 Intent Selam DAVIES E Selam Blair CNP E Aerosol Treatment ([id number])By: Aleksey On: 19-Feb-2015 Intent Eliana HOFFMANN Ultrasound - AortaBy: Helen Barnes DO On: 18-Dec-2014 Intent EKG ([id number])By: Helen Barnes DO On: 05-Nov-2014 Intent Comments: ekg showed normal sinus rhythym, normal axis, no acute st/t wave changes BILATERAL MAMMOGRAMS ([id number])By: Cameron On: 17-Sep-2014 Intent Helen [place] Radiology - Shoulder - LeftBy: Amparoi On: 05-Mar-2014 Intent Fatimah RANDLE Comments: if not better with PT MAMMOGRAM, SCREENING, BOTH BREASTS On: 08-Aug-2013 Intent ([id number])By: Helen Barnes DO Eprescribed prescriptions ([id number])By: On: 08-Aug-2013 Intent Helen Barens DO DXA, BONE DENSITY, AXIAL SKELETON On: 21-Oct-2012 Intent ([id number])By: Helen Barnes DO Comments: - mar Eprescribed prescriptions ([id number])By: On: 21-Oct-2012 Intent So Bailey Breast Screening - BilateralBy: Cameron On: 19-Sep-2012 Intent Helen [place] Eprescribed prescriptions ([id number])By: On: 30-Aug-2012 Intent So Bailey Spirometry ([id number])By: Helen Barnes DO On: 11-Mar-2012 Intent A Comments: good effort and curve mild obst- Doppler Ultrasound OtherBy: Cameron [place], On: 11-Mar-2012 Intent Helen Coley Comments: both legs- stat call results Eprescribed prescriptions ([id number])By: On: 11-Mar-2012 Intent So Bailey TD Injection , IM ([id number])By: Leo On: 11-Mar-2012 Intent So Comments: 2003 FLU VAC, SPLIT, >3 YEARS, INTRAMUSC On: 11-Mar-2012 Intent ([id number])By: So Bailey Comments: got at [facility] Instructions Name Dates Details BMI 22.0-22.9, adult : How to access health information online Indication: BMI 22.0-22.9, adult BMI 22.0-22.9, adult : How to access health information online - Detail Indication: BMI 22.0-22.9, adult History of DVT (deep vein thrombosis) : Patient Instructions Indication: History of DVT (deep vein thrombosis) Nonsmoker : How to access health information online Indication: Nonsmoker Nonsmoker : How to access health information online - Detail Indication: Nonsmoker BMI 22.0-22.9, adult : Patient Instructions Indication: BMI 22.0-22.9, adult Nonsmoker : How to access health information online Indication: Nonsmoker Nonsmoker : How to access health information online - Detail Indication: Nonsmoker Nonsmoker : Patient Instructions Indication: Nonsmoker Nonsmoker : How to access health information online Indication: Nonsmoker Nonsmoker : How to access health information online - Detail Indication: Nonsmoker Cough : Patient Instructions Indication: Cough BMI 22.0-22.9, adult : How to access health information online Indication: BMI 22.0-22.9, adult BMI 22.0-22.9, adult : How to access health information online - Detail Indication: BMI 22.0-22.9, adult BMI 22.0-22.9, adult : Patient Instructions Indication: BMI 22.0-22.9, adult Cough : How to access health information online Indication: Cough Cough : How to access health information online - Detail Indication: Cough Cough : Patient Instructions Indication: Cough Anticoagulated on Coumadin : DISCONTINUED - PT (PROTHROMBIN TIME) ([id number]) Indication: Anticoagulated on Coumadin Irritable Bowel Syndrome : How to access health information online Indication: Irritable Bowel Syndrome Irritable Bowel Syndrome : How to access health information online Indication: Irritable Bowel Syndrome Anticoagulated on Coumadin : How to access health information online - Detail Indication: Anticoagulated on Coumadin Encounter for Medicare annual wellness exam : How to access health information online Indication: Encounter for Medicare annual wellness exam Encounter for Medicare annual wellness exam : How to access health information online - Detail Indication: Encounter for Medicare annual wellness exam Encounter for Medicare annual wellness exam : Patient Instructions Indication: Encounter for Medicare annual wellness exam Pre-operative examination : Patient Instructions Indication: Pre-operative examination Hyperlipidemia : Patient Instructions Indication: Hyperlipidemia Edema : Patient Instructions Indication: Edema Hyperlipidemia : Patient Instructions Indication: Hyperlipidemia Hyperlipidemia : Patient Instructions Indication: Hyperlipidemia Osteoporosis : Patient Instructions Indication: Osteoporosis bullseye rash- tick bite /concern for lyme disease : Patient Instructions Indication: bullseye rash- tick bite /concern for lyme disease Osteoporosis : Patient Instructions Indication: Osteoporosis Osteoporosis : Patient Instructions Indication: Osteoporosis Encounters Phone Encounter On: 02-Mar-2018 11:54 Encounter Diagnosis: History of DVT (deep vein thrombosis) End: 02-Mar-2018 11:55 [facility] Office Visit On: 02-Mar-2018 11:42 Encounter Diagnosis: History of DVT (deep vein thrombosis) End: 02-Mar-2018 11:49 [facility] Phone Encounter On: 22-Feb-2018 16:30 [facility] End: 22-Feb-2018 16:33 Office Visit On: 14-Feb-2018 16:19 Encounter Reason: Leg Pain - The patient sustained an injury to the left lower leg. Note for Leg pain: Symptoms started last night-woke pt up in sleep with pain left leg. No increased swelling, warmth or redness. Pt de End: 14-Feb-2018 16:51 scribes pain as throbbing at times and then some numbness. ??No SOB, CP, loss of bladder or bowel function, no back pain. History of blood clots-on coumadin.Encounter Diagnosis: Nonsmoker, BMI 22.0-22.9, adult, Left leg pain, History of DVT (deep vein thrombosis) [facility] Office Visit On: 07-Feb-2018 12:55 Encounter Reason: Follow up tests - Diagnostic tests include other (labs). Note for Discuss procedure results: Reviewing low WBC from 01-14-18 with WBC of 3.3 this was repeat. Has been to [place] for treatment of Lyme.Encounter Diagnosis: End: 07-Feb-2018 13:34 Nonsmoker, BMI 22.0-22.9, adult, Leukopenia, author (current) use of anticoagulants (Renamed from author current use of anticoagulant therapy), Anticoagulated on Coumadin [facility] Annotation/Addendum On: 01-Feb-2018 14:11 [facility] End: 01-Feb-2018 14:12 Annotation/Addendum On: 14-Jan-2018 15:14 Encounter Diagnosis: Leukopenia End: 14-Jan-2018 15:17 [facility] Phone Encounter On: 04-Jan-2018 16:32 [facility] End: 04-Jan-2018 16:35 Office Visit On: 17-Dec-2017 15:26 Encounter Diagnosis: Encounter for screening for lipid disorder End: 17-Dec-2017 15:28 [facility] Lab Order On: 17-Dec-2017 14:43 Encounter Diagnosis: Encounter for screening for lipid disorder End: 17-Dec-2017 14:48 [facility] Annotation/Addendum On: 17-Dec-2017 9:17 [facility] End: 17-Dec-2017 9:23 Office Visit On: 17-Dec-2017 8:24 Encounter Reason: Annual Medicare Exam - The patient had reviewed and updated the family history, medication/s, past medical history and social history. Yes the patient did have a mini mental status exam done today. The End: 17-Dec-2017 9:12 activities of daily living the patient needs help with are none. The patient has driven in past 6 months, but the patient has not had fecal incontinence, had urinary incontinence, missed or ran out of m edications to soon, fallen in the past 6 months, gotten lost, has a medalert necklace or bracelet, put area rugs through house or put handrails in bathroom. The patient has completed the following preve ntative measures: PAP smear (2016), mammography (october 2017) and colonoscopy ([address] hall. due back in 10 years unless having sx). The patient does have living will, but the patient does not have durable power of senior trial attorney. The patient has noticed nothing from the geriatic depression scale. Other providers contributing to the patient's care are part time receptionist (dr. meseret santana) and other: (eye- dr. kiser last exam- 10/2017).Encounter Diagnosis: Nonsmoker, BMI 21.0-21.9, adult, Annual Medicare Phyiscal WITHOUT abnormal findings (Renamed from Encounter for general adult medical examination without abnormal findings), Postmenopausal (Renamed from Postmenopausal status), Encounter for screening for lipid disorder [facility] Phone Encounter On: 07-Oct-2017 10:24 [facility] End: 07-Oct-2017 10:25 Annotation/Addendum On: 13-Sep-2017 12:18 [facility] End: 13-Sep-2017 12:19 Annotation/Addendum On: 16-Aug-2017 9:46 [facility] End: 16-Aug-2017 9:49 Office Visit On: 07-Jun-2017 10:18 Encounter Reason: Follow up acute care visit - The patient does not feel well. Note for Follow up acute care visit: Pt was seen last week for bronchospasm. Pt states she feel better except she still has a cough and maricruz End: 07-Jun-2017 11:41 e tightness in the chest. Pt just wanted to make sure she wasn't contagious or needed more treatment. No fever or chill, not coughing up green/brown sputum, no SOB.Encounter Diagnosis: BMI 22.0-22.9, adult, Nonsmoker, Chest tightness, Cough, Post-nasal drainage [facility] Office Visit On: 02-Jun-2017 9:18 Encounter Reason: Flu Like Symptoms - Onset was 2 month(s) ago (it lasted about 5 days then went away for 2 weeks and started again and got gradually worse)., [ADDITIONAL REASON] Cough - Note for Cough: Cough and chest tightness,worsening. End: 02-Jun-2017 10:46 Encounter Diagnosis: Nonsmoker, BMI 22.0-22.9, adult, Flu-like symptoms, Cough, Bronchospasm [facility] Annotation/Addendum On: 01-Mar-2017 12:47 Encounter Diagnosis: jail (current) use of anticoagulants (Renamed from jail current use of anticoagulant therapy) End: 01-Mar-2017 12:49 [facility] Office Visit On: 15-Dec-2016 7:49 Encounter Reason: Annual Medicare Exam - The patient had reviewed and updated the family history, medication/s, past medical history and social history. Yes the patient did have () a mini mental status exam done tod End: 15-Dec-2016 10:15 ay. The activities of daily living the patient needs help with are none. The patient has driven in past 6 months, put area rugs through house and put handrails in bathroom, but the patient has not had f ecal incontinence, had urinary incontinence, missed or ran out of medications to soon, fallen in the past 6 months, gotten lost or has a medalert necklace or bracelet. The patient has completed the foll owing preventative measures: PAP smear (06/2015 -Dr Santana), mammography (10/2016 Dr Santana) and colonoscopy (2012- repeat in 10years). The patient does not have durable power of senior trial attorney or living will . The patient has noticed nothing from the geriatic depression scale. Other providers contributing to the patient's care are other: (dr crawford for eyes). Note for Annual Medicare Exam: Pt has [employer] done by her DIRECTOR OF FIRST IMPRESSIONS.Refuses flu shotRefuses pnumonia or LymeEncounter Diagnosis: Nonsmoker, BMI 21.0-21.9, adult, Encounter for annual general medical examination with abnormal findings in adult, jail (current) use of anticoagulants (Renamed from author current use of anticoagulant therapy), Liver cyst [facility] Phone Encounter On: 09-Nov-2016 16:54 [facility] End: 09-Nov-2016 16:55 Phone Encounter On: 15-Oct-2016 12:40 Encounter Diagnosis: [facility] End: 15-Oct-2016 12:42 [facility] Office Visit On: 13-Oct-2016 10:20 Encounter Reason: Cough - Symptoms include cough. The cough is described as productive. Cough onset was 1 week(s) ago. The cough occurs constantly. Associated symptoms include postnasal drainage. Current treatment includ End: 13-Oct-2016 10:50 es non-opioid cough medications. Previous presentation included a cough. Note for Cough: Fever cough and 24 hr tessalon pearls that were expiredEncounter Diagnosis: Nonsmoker, BMI 21.0-21.9, adult, Cough, Sinusitis [facility] Prescription Refill On: 26-Aug-2016 13:20 Encounter Diagnosis: Anticoagulated on Coumadin End: 26-Aug-2016 13:22 [facility] Annotation/Addendum On: 08-Jul-2016 8:36 [facility] End: 08-Jul-2016 8:39 Annotation/Addendum On: 07-Jul-2016 16:12 [facility] End: 07-Jul-2016 16:13 Office Visit On: 29-Jun-2016 14:47 Encounter Reason: Follow up for chronic medical issues - The patient feels well with minor complaints, has decreased energy level and is sleeping poorly. Patient has been compliant with instructions. Current medication u End: 29-Jun-2016 15:33 se: no side effects and compliant with dosing regimen. Patient sleeps 6 hours per night. Nutrition: balanced diet. Note for Follow up for chronic medical issues: Came back to [place]. [facility] did US and found enlarged bowel. Saw Dr. Arzola, wanted her to start on linzess. Saw surgeron Mehnaz CT of pelvis and abd with contrast, all normal except retained fecal. Takes miralax once daily. Has bartinella and lymes per pat report Encounter Diagnosis: Nonsmoker, Body mass index (BMI) of 20 to 24, Irritable Bowel Syndrome (564.1), Anticoagulated on Coumadin [facility] Phone Encounter On: 25-Jun-2015 12:42 [facility] End: 25-Jun-2015 12:45 Phone Encounter On: 11-Jun-2015 10:21 [facility] End: 11-Jun-2015 10:22 Phone Encounter On: 04-Jun-2015 12:43 [facility] End: 04-Jun-2015 12:46 Phone Encounter On: 21-May-2015 14:36 [facility] End: 21-May-2015 14:46 Phone Encounter On: 21-May-2015 9:16 [facility] End: 21-May-2015 9:28 Phone Encounter On: 07-May-2015 12:54 [facility] End: 07-May-2015 12:55 Phone Encounter On: 23-Apr-2015 13:45 [facility] End: 23-Apr-2015 13:47 Phone Encounter On: 09-Apr-2015 12:06 [facility] End: 09-Apr-2015 12:08 Phone Encounter On: 01-Apr-2015 17:55 [facility] End: 01-Apr-2015 17:57 Office Visit On: 22-Mar-2015 11:28 [facility] End: 22-Mar-2015 11:30 Phone Encounter On: 08-Mar-2015 11:59 [facility] End: 08-Mar-2015 12:00 Phone Encounter On: 04-Mar-2015 13:51 [facility] End: 04-Mar-2015 13:52 Phone Encounter On: 25-Feb-2015 12:51 [facility] End: 25-Feb-2015 12:53 Office Visit On: 19-Feb-2015 13:40 Encounter Reason: Cough - The last clinic visit was 2 week(s) ago. Symptoms include cough and dyspnea. The cough is described as productive (clear). Cough onset was 2 week(s) ago. The cough occurs intermittently. Symptom End: 19-Feb-2015 14:14 s are described as worsening. Symptoms are not exacerbated by smoke exposure, pollen exposure, animal exposure, going outside, activity, lying down, cold temperature or inhaled bronchodilator use. Sympt oms are not relieved by air conditioning, humidified air, warm drinks, warm weather, avoiding irritants, resting, lying down, sitting up, cough drops, cough medicine, acetaminophen, nonsteroidal anti-in flammatory drugs or inhaled bronchodilator use. Associated symptoms do not include postnasal drainage, mouth breathing, noisy breathing, rapid breathing, hoarseness, painful swallowing, eye itching, nos e itching, headache, hemoptysis or night sweats. By report there is good compliance with treatment. Previous presentation included a cough and dyspnea.Encounter Diagnosis: Cough, Allergic rhinitis [facility] Phone Encounter On: 18-Feb-2015 10:32 [facility] End: 18-Feb-2015 10:37 Phone Encounter On: 11-Feb-2015 11:08 [facility] End: 11-Feb-2015 11:09 Phone Encounter On: 08-Feb-2015 11:23 [facility] End: 08-Feb-2015 11:24 Phone Encounter On: 01-Feb-2015 13:19 [facility] End: 01-Feb-2015 13:20 Phone Encounter On: 30-Jan-2015 15:34 Encounter Diagnosis: Unspecified Diagnosis End: 30-Jan-2015 15:36 [facility] Phone Encounter On: 18-Jan-2015 11:16 [facility] End: 18-Jan-2015 11:18 Phone Encounter On: 04-Jan-2015 15:05 [facility] End: 04-Jan-2015 15:06 Phone Encounter On: 28-Dec-2014 14:49 [facility] End: 28-Dec-2014 14:54 Phone Encounter On: 21-Dec-2014 14:10 Encounter Diagnosis: Deep venous thrombosis of lower extremity (453.40) End: 21-Dec-2014 14:12 [facility] Phone Encounter On: 21-Dec-2014 8:21 [facility] End: 21-Dec-2014 8:22 Office Visit On: 18-Dec-2014 9:17 Encounter Reason: Annual Medicare Exam - The patient had reviewed and updated the family history, medication/s, past medical history and social history. Yes the patient did have a mini mental status exam done today. The End: 18-Dec-2014 22:52 activities of daily living the patient needs help with are none. The patient has driven in past 6 months, put area rugs through house and put handrails in bathroom, but the patient has not had fecal inc ontinence, had urinary incontinence, missed or ran out of medications to soon, fallen in the past 6 months, gotten lost or has a medalert necklace or bracelet. The patient has completed the following pr eventative measures: PAP smear (06/2014), mammography (12/2014) and colonoscopy (2012- repeat in 10years). The patient does have living will, but the patient does not have durable power of senior trial attorney. The p atient has noticed nothing from the geriatic depression scale. Other providers contributing to the patient's care are other: (ENT and dr crawford for eyes). Note for Annual Medicare Exam: Pt has WWE done by her DIRECTOR OF FIRST IMPRESSIONS., [ADDITIONAL REASON] Follow up for chronic medical issues - The patient feels well with no complaints, has good energy level and is sleeping well. Patient has been compliant with instructions. Current m edication use: no side effects and compliant with dosing regimen. Patient sleeps 6 hours per night. Nutrition: balanced diet, supplemental vitamins and low salt diet. The medical issues the patient is f ollowing up for include All identified problems below, asthma, osteoporosis/osteopenia and other (IBS, DVT, fatigue). Note for Follow up for chronic medical issues: had d/c and was good and neg and beckford s followup us in 4 months - and did well with the surgery - had colosncopy in last few years negative and also no vaccinations she wants to take- doesnt want bone density Encounter Diagnosis: Annual Medicare Physical (V70.0), Osteoporosis (733.00), Benign Essential Hypertension (401.1), Hyperlipidemia (272.4) [facility] Phone Encounter On: 14-Dec-2014 11:10 [facility] End: 14-Dec-2014 11:11 Phone Encounter On: 07-Dec-2014 10:38 [facility] End: 07-Dec-2014 10:39 Office Visit On: 04-Dec-2014 12:42 [facility] End: 04-Dec-2014 12:43 Phone Encounter On: 27-Nov-2014 13:23 [facility] End: 27-Nov-2014 13:24 Phone Encounter On: 12-Nov-2014 11:04 [facility] End: 12-Nov-2014 11:06 Phone Encounter On: 06-Nov-2014 9:36 [facility] End: 06-Nov-2014 9:37 Office Visit On: 05-Nov-2014 12:06 Encounter Reason: Preoperative evaluation - The patient feels well with no complaints, has good energy level and is sleeping well. Surgical procedures include: other (hysteroscopy and D&C). Date of procedure: ( End: 11-Nov-2014 21:[address] Santana) . There have been no problems with general anesthesia or blood/blood products. Note for Preoperative evaluation: - she had followup us- she said cyst is gone- - still fluid in [place] and calcification- going to have D?C- and hysteroscopy- bp is good - Esther doing surgery 11/26/14 - no issues with the asthma and feeling quite good Encounter Diagnosis: Pre-Operative Examination, Unspecified (V72.84), Deep venous thrombosis of lower extremity (453.40), Benign Essential Hypertension (401.1), Asthma (493.11) [facility] Phone Encounter On: 29-Oct-2014 11:19 [facility] End: 29-Oct-2014 11:20 Phone Encounter On: 22-Oct-2014 15:23 [facility] End: 22-Oct-2014 15:25 Phone Encounter On: 15-Oct-2014 13:33 [facility] End: 16-Oct-2014 8:12 Phone Encounter On: 08-Oct-2014 14:54 [facility] End: 08-Oct-2014 14:59 Phone Encounter On: 02-Oct-2014 15:25 [facility] End: 02-Oct-2014 15:26 Phone Encounter On: 01-Oct-2014 15:19 [facility] End: 01-Oct-2014 15:20 Phone Encounter On: 24-Sep-2014 17:24 [facility] End: 24-Sep-2014 17:25 Phone Encounter On: 21-Sep-2014 10:23 [facility] End: 21-Sep-2014 10:28 Office Visit On: 17-Sep-2014 9:07 Encounter Reason: Follow up for chronic medical issues - The patient feels well with no complaints, has good energy level and is sleeping poorly (because of lymes dz). Patient has been compliant with instructions. Curren End: 19-Sep-2014 6:56 t medication use: no side effects and compliant with dosing regimen. Patient sleeps 5 hours per night. Nutrition: balanced diet, supplemental vitamins and low salt diet. The medical issues the patient i s following up for include All identified problems below, asthma, osteoporosis/osteopenia and other (IBS, DVT, fatigue). Note for Follow up for chronic medical issues: Pt is feeling stressed with life and her families illness but doesnt want to address it as an complaint, says she can handle it.- bp is good and weight actually 2 pounds- we offered her seeing counselor- she is off antiobitocs except difucan nystatin- inr addressed- going to try low dose antigen therapy every two months by ent for lymes- apparently was having female exam andhad dark blood spotting coming from cervix and had us but n o endometrial bx concenring to me as to need done, [ADDITIONAL REASON] Follow up tests - Diagnostic tests include other (lab). Date: (09/07/14). Encounter Diagnosis: Hyperlipidemia (272.4), SCREENING FOR BREAST CANCER (V76.10), Deep venous thrombosis of lower extremity (453.40), Osteoporosis (733.00), Asthma (493.11), Benign Essential Hypertension (401.1), PostMenopausal Bleeding (Renamed from Hemorrhage, postmenopausal) [facility] Phone Encounter On: 14-Sep-2014 10:20 [facility] End: 14-Sep-2014 10:22 Phone Encounter On: 07-Sep-2014 9:33 [facility] End: 07-Sep-2014 9:41 Phone Encounter On: 03-Sep-2014 12:06 [facility] End: 03-Sep-2014 12:07 Phone Encounter On: 24-Aug-2014 11:34 [facility] End: 24-Aug-2014 11:35 Phone Encounter On: 17-Aug-2014 8:41 [facility] End: 17-Aug-2014 8:42 Phone Encounter On: 15-Aug-2014 11:21 [facility] End: 15-Aug-2014 11:24 Phone Encounter On: 08-Aug-2014 13:59 [facility] End: 08-Aug-2014 14:02 Phone Encounter On: 25-Jul-2014 17:44 [facility] End: 25-Jul-2014 17:46 Phone Encounter On: 19-Jun-2014 8:41 [facility] End: 19-Jun-2014 8:43 Phone Encounter On: 11-Jun-2014 13:17 Encounter Diagnosis: Deep venous thrombosis of lower extremity (453.40) End: 11-Jun-2014 13:19 [facility] Phone Encounter On: 28-May-2014 17:45 [facility] End: 28-May-2014 17:48 Phone Encounter On: 21-May-2014 9:07 [facility] End: 22-May-2014 9:05 Phone Encounter On: 14-May-2014 9:14 [facility] End: 14-May-2014 9:16 Phone Encounter On: 08-May-2014 9:39 [facility] End: 08-May-2014 9:40 Phone Encounter On: 30-Apr-2014 15:59 [facility] End: 30-Apr-2014 16:03 Lab Order On: 27-Apr-2014 11:28 Encounter Diagnosis: Deep venous thrombosis of lower extremity (453.40) End: 27-Apr-2014 11:29 [facility] Phone Encounter On: 16-Apr-2014 14:50 [facility] End: 16-Apr-2014 14:51 Phone Encounter On: 10-Apr-2014 15:01 [facility] End: 10-Apr-2014 15:01 Phone Encounter On: 26-Mar-2014 17:33 [facility] End: 26-Mar-2014 17:34 Phone Encounter On: 22-Mar-2014 9:24 [facility] End: 22-Mar-2014 9:25 Phone Encounter On: 19-Mar-2014 14:28 [facility] End: 19-Mar-2014 14:29 Phone Encounter On: 06-Mar-2014 10:03 [facility] End: 06-Mar-2014 10:03 Office Visit On: 05-Mar-2014 9:19 Encounter Diagnosis: Shoulder pain, left End: 05-Mar-2014 9:42 [facility] Office Visit On: 13-Feb-2014 8:01 Encounter Reason: Follow up for chronic medical issues - The patient feels well with no complaints, has good energy level and is sleeping poorly (because of lymes dz). Patient has been compliant with instructions. Sol End: 13-Feb-2014 9:08 t medication use: no side effects and compliant with dosing regimen. Patient sleeps 5 hours per night. Nutrition: balanced diet, supplemental vitamins and low salt diet. The medical issues the patient i s following up for include All identified problems below, asthma, osteoporosis/osteopenia and other (IBS, DVT, fatigue). Note for Follow up for chronic medical issues: doesnt wish flu vaccine and she is stillin treatment for lymes disease- but doing pretty good at this time- bp is good- she had cortisol levels done by her lyme doc she was given nomeds and has followup with her doc about them - told abnormal- she is going to talk to her about them - just had chol check and was significatnly better- her sugar 66 we told increase lean protein small freq she is really wathing carbs and that is why bernard ght loss- fatigue and breathing good-doesnt want bone density and has pap scheduled in may, [ADDITIONAL REASON] Follow up tests - Diagnostic tests include other (lab). Date: (12/11/13). Encounter Diagnosis: Edema, Benign Essential Hypertension (401.1) , Asthma (493.11), Hyperlipidemia (272.4), Fatigue (780.79), Irritable Bowel Syndrome (564.1), ACUTE CYSTITIS, Deep venous thrombosis of lower extremity (453.40) [facility] Phone Encounter On: 06-Feb-2014 11:40 [facility] End: 06-Feb-2014 11:40 Phone Encounter On: 30-Jan-2014 13:58 [facility] End: 30-Jan-2014 13:59 Phone Encounter On: 26-Jan-2014 10:59 [facility] End: 26-Jan-2014 11:00 Phone Encounter On: 19-Jan-2014 13:23 [facility] End: 19-Jan-2014 13:26 Phone Encounter On: 12-Jan-2014 9:24 [facility] End: 12-Jan-2014 9:29 Phone Encounter On: 04-Jan-2014 11:58 [facility] End: 04-Jan-2014 11:59 Phone Encounter On: 01-Jan-2014 13:43 [facility] End: 01-Jan-2014 13:44 Phone Encounter On: 29-Dec-2013 13:58 [facility] End: 29-Dec-2013 14:00 Phone Encounter On: 22-Dec-2013 9:17 [facility] End: 22-Dec-2013 9:19 Phone Encounter On: 18-Dec-2013 10:04 [facility] End: 18-Dec-2013 10:05 Phone Encounter On: 15-Dec-2013 11:54 [facility] End: 15-Dec-2013 11:56 Office Visit On: 11-Dec-2013 17:59 [facility] End: 11-Dec-2013 18:01 Phone Encounter On: 27-Nov-2013 12:47 [facility] End: 27-Nov-2013 12:49 Phone Encounter On: 23-Nov-2013 14:50 [facility] End: 23-Nov-2013 14:52 Phone Encounter On: 15-Nov-2013 11:43 [facility] End: 15-Nov-2013 11:44 Phone Encounter On: 13-Nov-2013 13:39 [facility] End: 13-Nov-2013 13:40 Phone Encounter On: 01-Nov-2013 14:17 [facility] End: 01-Nov-2013 14:19 Phone Encounter On: 18-Oct-2013 10:08 [facility] End: 18-Oct-2013 10:14 Phone Encounter On: 04-Oct-2013 11:35 [facility] End: 04-Oct-2013 11:36 Phone Encounter On: 15-Sep-2013 16:02 Encounter Diagnosis: Deep venous thrombosis of lower extremity (453.40), ACUTE CYSTITIS End: 15-Sep-2013 16:05 [facility] Phone Encounter On: 01-Sep-2013 10:36 [facility] End: 01-Sep-2013 10:39 Phone Encounter On: 30-Aug-2013 12:03 Encounter Diagnosis: Edema End: 30-Aug-2013 12:05 [facility] Phone Encounter On: 25-Aug-2013 11:05 [facility] End: 25-Aug-2013 11:10 Phone Encounter On: 17-Aug-2013 11:45 [facility] End: 17-Aug-2013 11:47 Phone Encounter On: 14-Aug-2013 12:27 [facility] End: 14-Aug-2013 12:38 Phone Encounter On: 08-Aug-2013 12:23 [facility] End: 08-Aug-2013 12:24 Office Visit On: 08-Aug-2013 8:10 Encounter Reason: Follow up for chronic medical issues - The patient feels well with minor complaints (same chronic lyme dz sx), has good energy level and is sleeping poorly (because of lymes dz). Patient has been compli End: 08-Aug-2013 8:45 ant with instructions. Current medication use: no side effects and compliant with dosing regimen. Patient sleeps 5 hours per night. Nutrition: balanced diet, supplemental vitamins and low salt diet. The medical issues the patient is following up for include All identified problems below, asthma, osteoporosis/osteopenia and other (IBS, DVT, fatigue). Note for Follow up for chronic medical issues: bernard ignacio stable bp is good- sheis off antioibitc becuase got yeast and is treating that- she hasnt taken dicyclomine forever- does help when needs- bp is good- seeing id doc for her lyme- she thinks her chol up not exercising like was and eating too much sugar- doesnt want to do bone density - no lung sx no cough wheeze chest sx and not using the inhaler , [ADDITIONAL REASON] Follow up tests - Diagnostic tests include other (lab). Date: (07/10/13 and 07/25/13). Encounter Diagnosis: Hyperlipidemia (272.4), Irritable Bowel Syndrome (564.1), Deep venous thrombosis of lower extremity (453.40), Benign Essential Hypertension (401.1), Asthma (493.11), Osteoporosis (733.00), screening [facility] Phone Encounter On: 03-Aug-2013 14:01 [facility] End: 03-Aug-2013 14:03 Phone Encounter On: 01-Aug-2013 12:43 [facility] End: 01-Aug-2013 12:56 Phone Encounter On: 25-Jul-2013 16:04 [facility] End: 25-Jul-2013 16:05 Phone Encounter On: 21-Jul-2013 13:04 [facility] End: 21-Jul-2013 13:07 Phone Encounter On: 10-Jul-2013 12:50 [facility] End: 10-Jul-2013 12:52 Lab Order On: 19-May-2013 8:06 Encounter Diagnosis: DVT End: 19-May-2013 8:08 [facility] Lab Order On: 03-May-2013 9:59 Encounter Diagnosis: Deep venous thrombosis of lower extremity (453.40) End: 03-May-2013 10:01 [facility] Phone Encounter On: 19-Apr-2013 9:58 Encounter Diagnosis: DVT End: 19-Apr-2013 10:02 [facility] Phone Encounter On: 15-Feb-2013 17:23 [facility] End: 15-Feb-2013 17:25 Historical Summary On: 07-Feb-2013 9:08 [facility] End: 07-Feb-2013 9:10 Office Visit On: 07-Feb-2013 8:26 Encounter Reason: Follow up for chronic medical issues - The patient feels well with minor complaints (bad week with her Lyme dz symptoms but it comes and goes otherwise feeling ok), has good energy level and is sleeping End: 08-Feb-2013 8:36 well. Patient has been compliant with instructions. Current medication use: no side effects and compliant with dosing regimen. Patient sleeps 5 hours per night. Nutrition: balanced diet, supplemental v itamins and low salt diet. The medical issues the patient is following up for include All identified problems below, asthma, osteoporosis/osteopenia and other (IBS, DVT, fatigue). Note for Follow up fo r chronic medical issues: her bps are running perfect athome - she is watching diet and still seeing lyme specialist in [place]- her weight comeing down and exercsing more and chol coming down- doesn t want vaccinations- she isnt going to do bone density becuase doesnt want to take the meds , [ADDITIONAL REASON] Follow up tests - Diagnostic tests include other (lab). Date: (01/27/13). Encounter Diagnosis: Hyperlipidemia (272.4), Benign Essential Hypertension (401.1), Asthma (493.11), Osteoporosis (733.00) [facility] Office Visit On: 21-Oct-2012 8:11 Encounter Reason: Follow up for chronic medical issues - The patient feels well with minor complaints (no new complaints- same previous issues with Lyme dz symptoms- pt went to [place] and had lyme dz treatment-), has End: 21-Oct-2012 9:12 good energy level and is sleeping well. Patient has been compliant with instructions. Current medication use: no side effects and compliant with dosing regimen. Patient sleeps 5 hours per night. Nutriti on: balanced diet, supplemental vitamins and low salt diet. The medical issues the patient is following up for include All identified problems below, asthma, osteoporosis/osteopenia and other (IBS, DVT, fatigue). Note for Follow up for chronic medical issues: seeing lyme specialist in [place] and on meds for this and [place]- chol up a bit she is working hard no won diet and eating toomany almo nds- she will exercise to improve her chol- off symbicort and asthma fine no urinary sx, [ADDITIONAL REASON] Follow up tests - Diagnostic tests include other (lab). Date: (09/30/12). Encounter Diagnosis: Osteoporosis (733.00), Asthma (493.11), Urinary frequency (788.41), Benign Essential Hypertension (401.1), Hyperlipidemia (272.4) [facility] Phone Encounter On: 14-Oct-2012 10:19 Encounter Diagnosis: Bartonella infection (088.0) End: 14-Oct-2012 10:25 [facility] Annotation/Addendum On: 19-Sep-2012 15:05 Encounter Diagnosis: Breast cancer screening (V76.10) End: 19-Sep-2012 15:08 [facility] Annotation/Addendum On: 07-Sep-2012 8:36 Encounter Diagnosis: Urinary frequency (788.41) End: 07-Sep-2012 8:56 [facility] Annotation/Addendum On: 02-Sep-2012 15:17 Encounter Diagnosis: Insect bite (919.4) End: 02-Sep-2012 15:19 [facility] Office Visit On: 30-Aug-2012 14:18 Encounter Reason: Insect Bite/Sting - The insect causing the bite/sting is thought to be a tick. The patient sustained an insect bite/sting to the chest. Symptoms include single bite or sting and redness at the site of t End: 30-Aug-2012 22:40 he bite or sting, while symptoms do not include itching at the site of the bite or sting, pain at the site of the bite or sting or swelling at the site of the bite or sting. Symptoms are located on the chest (between breast). Onset was sudden 3 week(s) ago. Associated symptoms include headache, while associated symptoms do not include fever or abdominal pain. Note for Insect bite/sting: also a lot f atigue, foggy thinking. Worried she may have lyme dz. Son has it also from a tick bite. Suffering severe neurological symptoms.----she noticed a bullseye lesion on her chest a week ago- then started fee ling fatigue and foggy in head - no dizzy or vertigo - occ headache- ??and palpitations and confusion- no joint pain or fever- no swollen lymph nodes Encounter Diagnosis: bullseye rash- tick bite /concern for lyme disease, Fatigue (780.79) [facility] Recovered Encounter On: 01-Aug-2012 9:26 Encounter Diagnosis: Asthma (493.11) End: 01-Aug-2012 9:27 [facility] Lab Order On: 19-May-2012 14:38 [facility] End: 19-May-2012 14:39 Lab Order On: 22-Apr-2012 15:58 Encounter Diagnosis: Deep venous thrombosis of lower extremity (453.40) End: 22-Apr-2012 16:00 [facility] Office Visit On: 20-Apr-2012 15:32 Encounter Reason: Follow up tests - Diagnostic tests include other (labs). Date: (03/14/12). Note for Discuss procedure results: had 3 clots and has factor 2 - had colonsoocpy which was neg Encounter Diagnosis: Osteoporosis (733.00), End: 24-Apr-2012 14:52 Deep venous thrombosis of lower extremity (453.40), FAMILY HISTORY OF ISCHEMIC HEART DISEASE (V17.3) [facility] Office Visit On: 11-Mar-2012 9:40 Encounter Reason: Transition into care, [ADDITIONAL REASON] new patient female physical - Last seen between 6-12 months ago. General health: feels well with no complaints, has good energy level and is sleeping well. The patient's appetite is End: 13-Mar-2012 20:50 normal. Nutrition: normal/adequate. Exercises 0 days per week. Sleeps on average 7 hours per night. Normal bowel and bladder habits. Safety measures include appropriate use of safety belts and home smo ke detectors. There are no current emotional problems. screening, colonoscopy (2001), screening, mammography (09/2011) and screening, Pap smear (02/2012). Note for Physical exam: hx of dvt- first in gr oin the day after delivered first son- second was 5 years later in her abdomen- after driving long distance in car- 3rd was last year in november - had twisted ankle prior- had mammo this summer and pap last month normal- last lab a year ago Encounter Diagnosis: Osteoporosis (733.00), NEED FOR PROPHYLACTIC VACCINATION AND INOCULATION AGAINST INFLUENZA (V04.81), PREVENTION OF TETANUS (V03.7), Osteopenia (733.90), Asthma (493.11), Deep venous thrombosis of lower extremity (453.40), FAMILY HISTORY OF ISCHEMIC HEART [email or web address] (V17.3) [facility] Payers MedicareAARP/Edna Bryant; a guarantor
--- OUTSIDE RECORDS SUMMARY | 2018-06-24 14:18 | XMS RPT_ITS | Continuity of Care Document ---
:1950 Author Organization [facility] Address [facility]7 [facility] [address] [place] [address] Phone Care Team Providers Name Role Phone Riddhiraul SAMSONSelam E Unavailable Dr. Meseret Santana MD Unavailable Paola Lara Unavailable Unavailable Unavailable Unavailable Problems Name Dates Details Abortions/Miscarriages Comments: 1. Status: Active Annual Medicare Phyiscal WITHOUT abnormal findings (Renamed from Encounter for general adult medical examination without abnormal findings) (Z00.00, V70.9) Status: Active Anticoagulated on Coumadin (Z51.81, V58.83) Status: Active BMI 21.0-21.9, adult (Z68.21, V85.1) Status: Active BMI 22.0-22.9, adult (Z68.22, V85.1) [...] ISCHEMIC HEART DISEASE (Z82.49, V17.3) Status: Active Leukopenia (D72.819, 288.50) Comments: will follow q 3months and referral if needed Status: Active Liver cyst (K76.89, 573.8) Comments: from CT on 08-19-15 recommend US in [address] Status: Active shelter (current) use of 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) (Z79.01, V58.61) [...] days Quantity: 180 {Tablet} Refills: 3 Ordered:13-Sep-2017 Riddhimargaretbrijesh DAVIES Selam Brandbrijesh DAVIES Selam Latif Start : 13-Sep-2017 Active Calcium 1200 6288-9363 MG-UNIT Oral Tablet Chewable daily (4672-9901 MG-UNIT) Active Cinnamon 500 MG Oral Capsule 2caps qd (500 MG) Active Coumadin 1 MG Oral Tablet 1 (one) Tablet qd as directed for 90 days Quantity: 90 {Tablet} Refills: 3 Ordered:14-Sep-2017 Riddhimargaretbrijesh DAVIES Selam BELLOnatalya DAVIES Selam Latif Start : 14-Sep-2017 Active Coumadin 5 MG Oral Tablet 1 (one) Tablet Tablet qd as directed for 0 days Quantity: 90 {Tablet} Refills: 3 Ordered:13-Dec-2017 Riddhimargaretbrijesh DAVIES Selam BELLOnatalya DAVIES Selam Latif Start : 13-Dec-2017 Active DICYCLOMINE HCL, 20MG (Oral Tablet) 1 tab Tablet q 4hrs, prn for 0 days Quantity: 30 {Tablet} Refills: 1 Ordered:18-Dec-2014 So Bailey Start : 08-Aug-2013 Active Lasix 20 MG Oral Tablet 1 tab Tablet qd, prn for swelling for 0 days Quantity: 30 {Tablet} Refills: 1 Ordered:17-Dec-2017 Johnnie SAMSON, Selam Brandbrijesh DAVIES, Selam Latif Start : 17-Dec-2017 Active Latanoprost 0.005 % Ophthalmic Solution one drop to both eyes qhs (0.005 %) Active MILK THISTLE, 500MG (Oral Capsule) 2 (two) Capsule qd for 0 days Quantity: 60 {Capsule} Refills: 0 Ordered:17-Sep-2014 So Bailey Start : 14-Oct-2012 Active ProAir HFA 108 (90 Base) MCG/ACT Inhalation Aerosol Solution 2 (two) Puff Puff tid prn for 0 days Quantity: 1 {Inhaler} Refills: 0 Ordered:02-Jun-2017 Long Aida HOFFMANN Start : 02-Jun-2017 Active PROBIOTIC (Oral Capsule) 2 (two) Capsule qd for 0 days Quantity: 60 {Capsule} Refills: 0 Ordered:21-Oct-2012 Fatimah Mccray MD Start : 14-Oct-2012 Active Tessalon Perles 100 MG Oral Capsule 1 (one) Capsule tid prn for cough for 0 days Quantity: 30 {Capsule} Refills: 1 Ordered:02-Jun-2017 Minalbrijesh DAVIES, Selam Brandbrijesh DAVIES, Selam Latif Start : 02-Jun-2017 Active VITAMIN B COMPLEX (Oral Tablet) 1 [...] 500MG (Oral Tablet) 1 (one) Tablet bid o47qboy for 10 days Quantity: 20 {Tablet} Refills: 0 Ordered:15-Sep-2013 So Bailey Start : 15-Sep-2013 End : 25-Sep-2013 Inactive CLARITHROMYCIN, 500MG (Oral Tablet) 1 (one) Tablet qd for 0 days Quantity: 30 {Tablet} Refills: 0 Ordered:12-Apr-2013 Manavkei Patrice Start : 07-Feb-2013 End : 12-Apr-2013 Inactive Cod Liver Oil Oral Capsule 3-4 Capsule qd for 0 days Quantity: 90 {Capsule} Refills: 0 Ordered:15-Dec-2016 Selam Blair CNP, CNP, Brenda Start : 14-Oct-2012 End : 15-Dec-2016 Inactive DOXYCYCLINE HYCLATE, 100MG (Oral Capsule) 1 Capsule bid for 0 days Quantity: 42 {Capsule} Refills: 0 Ordered:14-Oct-2012 JENNIFER Pearce Start : 30-Aug-2012 End : 14-Oct-2012 Inactive Fosamax 70 MG Oral Tablet 1 tab Tablet once a week for 30 days Quantity: 4 {Tablet} Refills: 3 Ordered:15-Dec-2016 Selam Blair CNP, CNP, Brenda Start : 04-Jul-2012 End : 15-Dec-2016 Inactive Hydrocodone-Acetaminophen 5-325 MG Oral Tablet 1 (one) Tablet Tablet 1-2 every 6 hours prn for 0 days Quantity: 30 {Tablet} Refills: 0 Ordered:15-Dec-2016 Selam Blair CNP, CNP, Brenda Start : 05-Mar-2014 End : 15-Dec-2016 Inactive Comments:thirty Magnesium Oxide 400 MG Oral Tablet 4 Tablet qd for 30 days Quantity: 90 {Tablet} Refills: 0 Ordered:29-Jun-2016 Selam Blair CNP, CNP Brenda Start : 29-Jun-2016 End : 29-Jul-2016 Inactive Mobic 15 MG Oral Tablet 1 (one) Tablet Tablet daily for 0 days Quantity: 14 {Tablet} Refills: 0 Ordered:15-Dec-2016 Johnnie DAVIES, Selam Ayon CNP Start : 05-Mar-2014 End : 15-Dec-2016 Inactive MULTIVITAMIN (PO Tab) 1 (one) daily Inactive PredniSONE 10 MG Oral Tablet 1 (one) Tablet bid for 2 days Quantity: 4 {Tablet} Refills: 0 Ordered:02-Jun-2017 Johnnie DAVIES, Selam Ayon CNP Start : 02-Jun-2017 End : 04-Jun-2017 Inactive Comments:with food TAURINE, 500MG (Oral Capsule) 2 caps qd (500 MG) Inactive Zithromax Z-Fantasma 250 MG Oral Tablet [...] days Quantity: 1 {Aerosol} Refills: 3 Ordered:21-Oct-2012 Helen Barnes DO Start : 21-Oct-2012 End : 21-Oct-2012 Discontinued [...] V85.1) Status: Inactive as of 15-Dec-2016 BMI 22.0-22.9, adult (Z68.22, V85.1) Status: Inactive [...] (M85.80, 733.90) Status: Inactive as of 11-Mar-2012 Markesan eye (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 Imaging Services [address] [place] [address] Dexa Bone Density Study MR#: [id number] Acct: [id number] Name: YAHAIRA BRYANT Addi Rep #: [id number] : 1950 F 67 From: Cole Coronado MD PCP: Selam Blair NP Status: REG CLI Study: Dexa Bone Density Study Date of Exam: 12/23/17 Exam# [id number] Ordering Dr: Selam Blair STUDY: DUAL ENERGY [...] Cole Coronado MD at 8:50 EDT Tel [phone], Service support , CC: Selam Blair NP Sports Complex Attendant: Signed 07-Oct-2017 SCREENING MAMM (CAD), BILAT Result: Comments: See Note; NOTES: [facility] Imaging Services [address] [place] [address] SCREENING MAMM (CAD), BILAT MR#: [id number] Acct: [id number] Name: YAHAIRA BRYANT Rep #: [id number] : 1950 F 67 From: Cole Coronado MD PCP: Selam Blair NP Status: REG CLI Study: SCREENING MAMM (CAD), BILAT Date of Exam: 10/07/17 Exam# [id number] Ordering Dr: Aliza Santana MD MAMMOGRAPHY - [...] delay biopsy of a clinically suspicious abnormality. [id number] Electronically Signed: Cole Coronado MD at 11:23 EDT Tel [phone], Service support , CC: Selam Blair NP; Aliza Santana MD Sports Complex Attendant: Signed 23-Sep-2017 Downtime Report Result: Comments: See Note; NOTES: [facility] Medical Records Department [facility] [place] [address] Downtime Report MR#: [id number] Acct: [id number] Name: YAHAIRA BRYANT Rep #: [id number] : 1950 67 From: Jered Kumar PCP: Selam Blair NP Status: REG CLI This patient was seen during an EMR downtime September 06, 2017 - September 13, 2017. This patient may have a combination of p aper and electronic documentation or all paper documentation. All documentation is viewable within the e-chart portion of [employer] for each patient visit. 16-Dec-2016 Liver Result: Comments: See Note; NOTES: [facility] Imaging Services [address] [place] [address] Liver MR#: [id number] Acct: [id number] Name: YAHAIRA BRYANT Rep #: [id number] : 1950 F 66 From: Jose Mcghee MD PCP: Selam Blair Status: REG CLI Study: Liver Date of Exam: 12/16/16 Exam# [id number] Ordering Dr: Selam Blair STUDY: ABDOMINAL ULTRASOUND [...] MD at 16:28 EDT , Service support [phone], CC: Selam Fontainebrijesh Sports Complex Attendant: Signed 21-Dec-2014 Aorta Result: Comments: See Note; NOTES: [facility] Imaging Services [address] [place] [address] Ultrasound Report MR#: [id number] Acct: [id number] Name: YAHAIRA BRYANT Rep #: [id number] : 1950 F 64 From: Cole Coronado MD PCP: Helen Barnes DO Status: REG CLI Study: Aorta Date of Exam: 12/21/14 Exam# [id number] Ordering Dr: Helen Barnes DO PROCEDURES: ULTRASOUN [...] Cole Coronado MD at 9:45 EDT Tel [phone], Service support [phone], CC: Helen Barnes DO Sports Complex Attendant: Signed 12-Dec-2014 Aba Bravo Digital AND CAD Result: Comments: See Note; NOTES: [facility] Imaging Services [address] [place] [address] Breast Imaging Report MR#: [id number] Acct: [id number] Name: YAHAIRA BRYANT Rep # : [id number] : 1950 F 64 From: Gabino South MD PCP: Helen Barnes DO Status: REG CLI Study: Aba Bravo Digital AND CAD Date of Exam: 12/12/14 Exam# [id number] Ordering Dr: Helen Barnes DO M AMMOGRAPHY [...] at 14:51 EDT Tel , Service support [phone], CC: Helen Barnes DO Sports Complex Attendant: Signed 12-Dec-2014 Bilat Scrn Digital AND CAD Result: Comments: See Note; NOTES: [facility] Imaging Services [address] [place] [address] Breast Imaging Report MR#: [id number] Acct: [id number] Name: YAHAIRA BRYANT Rep # : [id number] : 1950 F 64 From: Gabino South MD PCP: Helen Barnes DO Status: REG CLI Study: Bilat Scrn Digital AND CAD Date of Exam: 12/12/14 Exam# [id number] Ordering Dr: Helen Barnes DO A DDENDUM by Cole Coronado MD on 12/17/14 at 1003 ADDENDUM This is an addendum report for BI -RADS category. BI-RADS category 2. Electronically Signed: Cole Coronado MD at 10:03 EDT Tel [phone], Service support [phone], 12/17/14 1003 D ate cc: Helen Barnes [...] at 14:51 EDT Tel , Service support [phone], CC: Helen Barnes DO Sports Complex Attendant: Signed 03-Dec-2014 Operative Report Result: Comments: See Note; NOTES: [facility] Medical Records Department [address] [place], [place] [address] Operative Report MR#: [id number] Acct: [id number] Name: YAHAIRA BRYANT Rep #: [id number] : 1950 64 From: Aliza Santana MD PCP: Helen Barnes DO Status: [facility] DATE OF SERVICE: 11/26/2014 DATE OF SERVICE: [...] time. Aliza Santana MD T: NTS JOB: [id number] 12/03/14 1321 <Electronically signed by An jamison Santana MD> Date Aliza Santana MD Cosigner Signature (If Indicated): Date CC: Aleyda Santana MD; Helen Barnes DO Date Dictated: 11/29/14918 Date Transcribed: 11/29/14918 Sports Complex Attendant: Signed 26-Nov-2014 Discharge Instruction Result: Comments: See Note; NOTES: [facility] Medical Records Department [address] [facility] [place] [address] Instructions for Home/Discharge Instructions 11/26/14 1200 MR#: [id number] ct: [id number] Name: YAHAIRA BRYANT Rep #: [id number] : 1950 64 From: Aliza Santana MD PCP: Helen Barnes DO Status: REG WVC Discharge Diet: No Restrictions Discharge Activity: Return [...] Operative Report Result: Comments: See Note; NOTES: [facility] Medical Records Department [address] [place] [address] Operative Report 11/26/14 1159 MR#: [id number] Acct: [id number] Name: YAHAIRA DEJESUS R Rep #: [id number] : 1950 64 From: Aliza Santana MD PCP: Helen Barnes DO Status: REG [facility] Y Location: [place] [address] Operative Report (Blank) Date of Procedure: 11/26/14 [...] MD; Helen Barnes DO Signed 05-Nov-2014 Spirometry (03719) Comments: good effort aand curve mild obstruction Result: 06-Jun-2014 Transvaginal Non- Result: Comments: See Note; NOTES: [facility] Imaging Services [address] [place] [address] Ultrasound Report MR#: [id number] Acct: [id number] Name: YAHAIRA BRYANT R Rep #: [id number] : 1950 F 63 From: Telly Cruz DO PCP: Helen Barnes DO Status: REG CLI Study: Transvaginal Non- Date of Exam: 06/06/14 Exam# [id number] Ordering Dr: Izzy Becerra STUDY: ULTRASOUND TRANSVAGINAL [...] DO at 13:34 EST , Service support [phone], CC: Helen Barnes DO; Izzy Becerra MD Sports Complex Attendant: Signed 06-Jun-2014 Pelvic (Non ) Result: Comments: See Note; NOTES: [facility] Imaging Services [address] [place] [address] Ultrasound Report MR#: [id number] Acct: [id number] Name: YAHAIRA BRYANT Rep #: [id number] : 1950 F 63 From: Telly Cruz DO PCP: Helen Barnes DO Status: REG CLI Study: Pelvic (Non ) Date of Exam: 06/06/14 Exam# [id number] Ordering Dr: Izzy Becerra MD STUDY: ULTRASOUND [...] DO at 13:34 EST , Service support [phone], CC: Helen Barnes DO; Izzy Becerra MD Sports Complex Attendant: Signed 11-Oct-2013 Bilat Scrn Digital & CAD Result: Comments: See Note; NOTES: [facility] Imaging Services [address] [facility] [address] Breast Imaging Report MR#: [id number] Acct: [id number] Name: YAHAIRA BRYANT Rep #: [id number] : 1950 F 63 From: Bradly Lr MD PCP: Helen Barnes DO Status: REG CLI Exam# [id number] Ordering Dr: Helen Barnes DO MAMMOGRAPHY - [...] at 10:37 EDT , Servic e support [phone], CC: Helen Barnes DO Sports Complex Attendant: Signed Family History Unknown Family Member Name [...] smoker Vital Signs Date Test Result Details [id number]-Hrn-[id number]:56 Temperature 97.7 f Comments: Method: Temporal Pulse [...] kg/m2 Body Surface Area Calculated 1.5 m2 7-Wfz-408590:26 Temperature 97.8 f Comments: Method: Temporal Pulse [...] 1.56 m2 Results Date Description Value Details :18 Prothrombin Time w/INR Comments: [address] [place], [place], [address] INR 2.7 (Normal) PROTIME 28.9 s (Abnormal) Range: 11.7-14.9 :58 Bilirubin, Direct Comments: [address] [place], [place], [address] D BILI 0.18 mg/dL (Normal) Range: 0.00-0.30 :58 CBC W/Diff, Automated Comments: [address] [place], [place], [address] Absolute Lymph 1.49 {X10_3/ul} (Normal) Range: 0.83-4.51 [...] 4.2-5.4 WBC 3.3 K/mm3 (Abnormal) Range: 4.4-11.0 07-Uyo-89465:58 Total Bilirubin Comments: [facility] [address] [facility] [address] [place], [place], [address] T BILI 0.80 mg/dL (Normal) Range: 0.20-1.00 9-Fhg-561863:14 Prothrombin Time w/INR Comments: [facility] [address] [place], [place], [phone](734) INR 2.6 (Normal) PROTIME 27.6 s (Abnormal) Range: 11.7-14.9 65-Nzt-481539:01 CBC W/Diff, Automated Comments: [facility] [address] [facility] [address] [place], [place], [address] Absolute Lymph 1.26 {X10_3/ul} (Normal) Range: 0.83-4.51 [...] 4.2-5.4 WBC 3.3 K/mm3 (Abnormal) Range: 4.4-11.0 71-Qtt-423335:01 Comprehensive Metabolic Profil Comments: [facility] [address] [place], [address] GAP 9 (Normal) Range: 5-15 CO2 28.0 [...] Comments: Please note revised GLUCOSE reference range geejgvdto12/02/2018. 32-Ntl-216258:15 Prothrombin Time w/INR Comments: [facility] [address] [place], [place], [phone]) INR 3.0 (Normal) PROTIME 31.3 s (Abnormal) Range: 11.7-14.9 :26 Prothrombin Time w/INR Comments: [facility] [address] [place], [place], [phone](396) INR 2.8 (Normal) PROTIME 29.3 s (Abnormal) Range: 11.7-14.9 02-Zsv-144352:50 Prothrombin Time w/INR Comments: [facility] [address] [place], [address] INR 2.7 (Normal) PROTIME 28.7 s (Abnormal) Range: 11.7-14.9 :35 Prothrombin Time w/INR Comments: [facility] [address] [place], [place], [phone](622) INR 2.9 (Normal) PROTIME 30.2 s (Abnormal) Range: 11.7-14.9 :44 Prothrombin Time w/INR Comments: [facility] [address] [place], [address] INR 2.9 (Normal) PROTIME 30.1 s (Abnormal) Range: 11.7-14.9 :55 Prothrombin Time w/INR Comments: [facility] [address] [place], [address] INR 2.8 (Normal) PROTIME 29.4 s (Abnormal) Range: 11.7-14.9 :10 Prothrombin Time w/INR Comments: [facility] [address] [place], [address] INR 2.4 (Normal) PROTIME 26.2 s (Abnormal) Range: 11.7-14.9 :09 Prothrombin Time w/INR Comments: [facility] [address] [place], [address] INR 1.1 (Normal) PROTIME 14.0 s (Normal) Range: 11.7-14.9 :29 Prothrombin Time w/INR Comments: RESULT(S) PREVIOUSLY REPORTED ON MANUAL REQUISITION DURINGDOWNTIME.[facility] [address] [place], [address] INR 1.3 (Normal) PROTIME 16.4 s (Abnormal) Range: 11.7-14.9 :30 Prothrombin Time w/INR Comments: [facility] [address] [place], [address] INR 2.0 (Normal) PROTIME 22.9 s (Abnormal) Range: 11.7-14.9 :01 Prothrombin Time w/INR Comments: [facility] [address] [place], [address] INR 1.5 (Normal) PROTIME 18.0 s (Abnormal) Range: 11.7-14.9 :46 Prothrombin Time w/INR Comments: [facility] [address] [place], [address] INR 1.9 (Normal) PROTIME 22.2 s (Abnormal) Range: 11.7-14.9 27-Qne-069541:25 Prothrombin Time w/INR Comments: [facility] [address] [place], [address] INR 1.9 (Normal) PROTIME 22.0 s (Abnormal) Range: 11.7-14.9 :59 Prothrombin Time w/INR Comments: [facility] [address] [place], [address] INR 2.0 (Normal) PROTIME 22.8 s (Abnormal) Range: 11.7-14.9 :58 Prothrombin Time w/INR Comments: [facility] [address] [place], [address] INR 1.8 (Normal) PROTIME 20.7 s (Abnormal) Range: 11.7-14.9 11-Zpx-659267:31 Prothrombin Time w/INR Comments: [place] [address] [place], [address] INR 1.7 (Normal) PROTIME 19.9 s (Abnormal) Range: 11.7-14.9 10-Are-913438:20 Prothrombin Time w/INR Comments: [facility] [address] [place], [address] INR 2.6 (Normal) PROTIME 27.9 s (Abnormal) Range: 11.7-14.9 :39 Prothrombin Time w/INR Comments: [facility] [address] [place], [place], [phone] INR 2.9 (Normal) PROTIME 30.5 s (Abnormal) Range: 11.7-14.9 72-Whv-589330:03 Rapid Flu (55011 x 2) Influenza A Ag neg (Normal) 91-Luc-282596:00 Prothrombin Time w/INR Comments: [place] [address] [place], [place], [phone] ; See pt message INR 3.7 (Abnormal) Comments: CRITICAL VALUE VERIFIED. CALLED TO KOLTON 05/31/17 1130 Nii Lind.RESULTS READ BACK BY SAME. PROTIME 35.0 s (Abnormal) Range: 11.7-14.9 :21 Prothrombin Time w/INR Comments: [facility] [address] [place], [address] INR 4.7 (Abnormal) Comments: CRITICAL VALUE VERIFIED. CALLED TO GEOVANNI AT [facility] [[email or web address]]05/24/17 0956 Violeta Noble.RESULTS READ BACK BY SAME . PROTIME 42.4 s (Abnormal) Range: 11.7-14.9 55-Ebi-263708:27 Prothrombin Time w/INR Comments: [facility] [address] [place], [address] INR 1.9 (Normal) PROTIME 20.9 s (Abnormal) Range: 11.7-14.9 :42 Prothrombin Time w/INR Comments: [place] [address] [place], [address] INR 4.3 (Abnormal) Comments: CRITICAL VALUE VERIFIED. CALLED TO 05/10/17 0830 Josue Velazquez.RESULTS READ BACK BY . PROTIME 39.8 s (Abnormal) Range: 11.7-14.9 :18 Prothrombin Time w/INR Comments: [place] [address] [place], [address] INR 2.4 (Normal) PROTIME 24.8 s (Abnormal) Range: 11.7-14.9 :18 Prothrombin Time w/INR Comments: [facility] [address] [place], [address] INR 2.4 (Normal) PROTIME 25.2 s (Abnormal) Range: 11.7-14.9 82-Qwm-813812:00 Prothrombin Time w/INR Comments: [facility] [address] [place], [address] INR 2.5 (Normal) PROTIME 25.8 s (Abnormal) Range: 11.7-14.9 :32 Prothrombin Time w/INR Comments: [facility] [address] [place], [address] INR 2.1 (Normal) PROTIME 22.7 s (Abnormal) Range: 11.7-14.9 :23 Prothrombin Time w/INR Comments: [place] [address] [place], [address] INR 2.3 (Normal) PROTIME 24.6 s (Abnormal) Range: 11.7-14.9 :14 Prothrombin Time w/INR Comments: [place] [address] [place], [address] INR 2.0 (Normal) PROTIME 21.9 s (Abnormal) Range: 11.7-14.9 :18 Prothrombin Time w/INR Comments: [place] [address] [place], [address] INR 2.5 (Normal) PROTIME 25.6 s (Abnormal) Range: 11.7-14.9 :39 Prothrombin Time w/INR Comments: [place] [address] [place], [address] INR 2.1 (Normal) PROTIME 22.7 s (Abnormal) Range: 11.7-14.9 :40 Prothrombin Time w/INR Comments: [place] [address] [place], [address] INR 2.6 (Normal) PROTIME 26.8 s (Abnormal) Range: 11.7-14.9 :40 Prothrombin Time w/INR Comments: [place] [address] [place], [address] INR 2.2 (Normal) PROTIME 23.8 s (Abnormal) Range: 11.7-14.9 :21 Prothrombin Time w/INR Comments: [place] [address] [place], [address] INR 1.8 (Normal) PROTIME 20.1 s (Abnormal) Range: 11.7-14.9 :30 Prothrombin Time w/INR Comments: [facility] [address] [place], [address] INR 3.0 (Normal) PROTIME 30.2 s (Abnormal) Range: 11.7-14.9 :45 Prothrombin Time w/INR Comments: [facility] [address] [place], [address] INR 2.9 (Normal) PROTIME 29.1 s (Abnormal) Range: 11.7-14.9 :52 Prothrombin Time w/INR Comments: [facility] [address] [place], [address] INR 1.4 (Normal) PROTIME 17.0 s (Abnormal) Range: 11.7-14.9 :27 Prothrombin Time w/INR Comments: [facility] [address] [place], [address] INR 2.0 (Normal) PROTIME 21.7 s (Abnormal) Range: 11.7-14.9 24-Ijz-535052:21 Prothrombin Time w/INR Comments: [facility] [address] [place], [address] INR 2.3 (Normal) PROTIME 24.1 s (Abnormal) Range: 11.7-14.9 :43 Prothrombin Time w/INR Comments: [facility] [address] [place], [address] INR 2.9 (Normal) PROTIME 29.1 s (Abnormal) Range: 11.7-14.9 :47 Prothrombin Time w/INR Comments: [facility] [address] [place], [address] INR 2.3 (Normal) PROTIME 24.0 s (Abnormal) Range: 11.7-14.9 :25 CBC W/Diff, Automated Comments: [facility] [address] [place], [place], [phone] ; see other message Absolute Lymph 2.07 [...] 4.2-5.4 WBC 3.6 K/mm3 (Abnormal) Range: 4.4-11.0 :25 Comprehensive Metabolic Profil Comments: [facility] [address] [place], [place], [phone] GAP 3 (Abnormal) Range: 5-15 CO2 28.0 [...] Range: 70-110 :25 Prothrombin Time w/INR Comments: [facility] [address] [place], [place], [address] INR 3.5 (Abnormal) Comments: CRITICAL VALUE VERIFIED. CALLED TO PATRICE Longoria07/07/16 0834 Radha Calderon.RESULTS READ BACK BY SAME . PROTIME 33.9 s (Abnormal) Range: 11.7-14.9 :25 Thyroid Stim Hormone (TSH) Comments: [facility] [address] [place], [address] TSH 3.25 {uIU/mL} (Normal) Range: 0.358-3.74 :47 Prothrombin Time w/INR Comments: [facility] [address] [place], [address] INR 2.6 (Normal) Comments: ADDENDA: handled by Dr. Phillips PROTIME 27.5 s (Abnormal) Range: 11.7-14.9 :32 Prothrombin Time w/INR Comments: [place] [address] [place], [address] INR 2.3 (Normal) PROTIME 25.5 s (Abnormal) Range: 11.7-14.9 :15 Prothrombin Time w/INR Comments: [place] [facility] [address] [place], [address] INR 2.6 (Normal) PROTIME 27.7 s (Abnormal) Range: 11.7-14.9 :29 Prothrombin Time w/INR Comments: [facility] [address] [place], [address] INR 1.3 (Normal) PROTIME 16.7 s (Abnormal) Range: 11.7-14.9 :19 Prothrombin Time w/INR Comments: [facility] [place] [address] [place], [address] INR 2.1 (Normal) PROTIME 23.3 s (Abnormal) Range: 11.7-14.9 :14 Prothrombin Time w/INR Comments: [place] [address] [place], [address] INR 2.0 (Normal) PROTIME 22.5 s (Abnormal) Range: 11.7-14.9 :21 Prothrombin Time w/INR Comments: [place] [address] [place], [address] INR 2.7 (Normal) PROTIME 28.5 s (Abnormal) Range: 11.7-14.9 :30 Prothrombin Time w/INR Comments: [place] [address] [place], [address] INR 2.4 (Normal) PROTIME 25.9 s (Abnormal) Range: 11.7-14.9 :41 Prothrombin Time w/INR Comments: [facility] [address] [place], [address] INR 2.5 (Normal) PROTIME 26.9 s (Abnormal) Range: 11.7-14.9 :09 Prothrombin Time w/INR Comments: [facility] [address] [place], [address] INR 3.4 (Normal) PROTIME 34.4 s (Abnormal) Range: 11.7-14.9 :11 Prothrombin Time w/INR Comments: [place] [address] [place], [address] INR 2.5 (Normal) PROTIME 26.6 s (Abnormal) Range: 11.7-14.9 64-Kor-805028:33 Prothrombin Time w/INR Comments: [facility] [address] [place], [address] INR 1.5 (Normal) PROTIME 18.1 s (Abnormal) Range: 11.7-14.9 :12 Prothrombin Time w/INR Comments: [place] [address] [place], [address] INR 1.1 (Normal) PROTIME 14.4 s (Normal) Range: 11.7-14.9 :51 Prothrombin Time w/INR Comments: [facility] [address] [place], [address] INR 3.6 (Abnormal) Comments: CRITICAL VALUE REPEATED AND VERIFIED. CALLED TO Maycol DAVISON02/25/15 1001 Elsie Longoria.RESULTS READ BACK BY MARGUERITE . PROTIME 35.3 s (Abnormal) Range: 11.7-14.9 :23 Prothrombin Time w/INR Comments: [place] [address] [place], [address] INR 3.3 (Normal) PROTIME 33.3 s (Abnormal) Range: 11.7-14.9 :13 Prothrombin Time w/INR Comments: [facility] [address] [place], [address] INR 2.4 (Normal) PROTIME 26.5 s (Abnormal) Range: 11.7-14.9 :32 Prothrombin Time w/INR Comments: [facility] [address] [place], [address] INR 1.4 (Normal) PROTIME 17.8 s (Abnormal) Range: 11.7-14.9 :09 Prothrombin Time w/INR Comments: [facility] [address] [place], [address] INR 1.2 (Normal) PROTIME 15.9 s (Abnormal) Range: 11.7-14.9 :12 Prothrombin Time w/INR Comments: [facility] [address] [place], [address] INR 2.4 (Normal) PROTIME 26.4 s (Abnormal) Range: 11.7-14.9 :20 Prothrombin Time w/INR Comments: [facility] [address] [place], [address] INR 2.2 (Normal) PROTIME 24.5 s (Abnormal) Range: 11.7-14.9 :11 Prothrombin Time w/INR Comments: Test performed at:[facility] [address] [place] [address] INR 2.2 (Normal) PROTIME 24.1 s (Abnormal) Range: 11.7-14.9 :29 Prothrombin Time w/INR Comments: Test performed at:[facility] [address] [place] [address] INR 3.7 (Abnormal) Comments: CRITICAL VALUE REPEATED AND VERIFIED. CALLED TO KIKE RN12/21/14 Frida Kumar.RESULTS READ BACK BY SAME . PROTIME 36.5 s (Abnormal) Range: 11.7-14.9 :25 Prothrombin Time w/INR Comments: Test performed at:[facility] [address] [place] [address] INR 2.5 (Normal) PROTIME 27.1 s (Abnormal) Range: 11.7-14.9 :23 Miscellaneous Lab Procedure Comments: Comments: [id number] PTH PLUS CALCIUM LAV AND RED RFTest(s) Ordered: [id number] PTH PLUS CALCIUM LAV AND RED RFTest performed at:[facility] [address] [facility] [address] [place], [place] [id number] MISC Comments: TEST RESULT LIMITSCa+PTH Intact Calcium, Serum [...] - 65 < 8.6 [facility] ORIGINAL REPORT ON FILE IN LAB CONTAINS AD DITIONAL TEST SITE INFORMATION. :23 Prothrombin Time w/INR Comments: Test performed at:[facility] [address] [place] [address] INR 4.0 (Abnormal) Comments: CRITICAL VALUE REPEATED AND VERIFIED. CALLED TO NIRNSX63/11/15 0933 Fletcher Foote.RESULTS READ BACK BY SAME . PROTIME 38.3 s (Abnormal) Range: 11.7-14.9 :23 Vitamin D 1,25-Dihydroxy Comments: Test performed at:[facility] [address] [place] [address] VITD 1,25 01100 55.5 pg/mL (Normal) Range: 19.9-79.3 Comments: Performed at: - [address] [id number] Director: Juan Ontiveros MD, Phone: [phone] :23 Vitamin D,25 Hydroxy Comments: Test performed at:[facility] [address]wejqk[address] [facility] [place] [address] Vitamin D 25-OH 70.3 ng/mL (Normal) Comments: Vitamin D 25(OH) Status Range Deficiency <20 ng/mL (50nmol/L) Insuffciency 20 - 30 ng/mL (50 - 75 nmol/L) Sufficiency 30 - 100 ng/mL (75 - 250 nmol/L) Toxicity >100 ng/mL (>250 nmol/L) :04 Prothrombin Time w/INR Comments: Test performed at:[facility] [address] [place] [address] INR 2.1 (Normal) PROTIME 23.5 s (Abnormal) Range: 11.7-14.9 :12 Prothrombin Time w/INR Comments: Test performed at:[facility] [address] [place] [address] INR 1.6 (Normal) PROTIME 18.9 s (Abnormal) Range: 11.7-14.9 :10 Prothrombin Time w/INR Comments: Test performed at:[facility] [address] [place] [address] INR 1.1 (Normal) PROTIME 14.1 s (Normal) Range: 11.7-14.9 71-Ioc-[id number]: ENDOMETRIAL BX/CURETTINGS See Note (Normal) Comments: Test performed at:[facility] [address] [place] [address] 49 Comments: Patient: YAHAIRA BRYANT : 1950 (64/F) Acct Num: [id number] Phys: Esther RANDLE,Aliza Unit Num: [id number] Loc: [facility] [place] Specimen: [id number] Received: 11/26/14 - 1217 Spec Type: EN DOM BX/C TISSUES TISSUES: GROSS DESCRIPTION Received is one container labeled with the patient name and designated endometrial curettings. The specimen consists of scant fragments of sahni mucoid tissue measuring less than 0.1 cm in greatest dimension. It is doubtful that the specimen will survive processing. The specimen is totally submitted inone cassette. / NICOLÁS:papito 11/26/14 TC: 5 CPT: 04900 HEADER OPERATION: Hysteroscopy, diagnostic, D AND C PRE-OP DIAGNOSIS: Postmenopausal bleeding TISSUE SUBMITTED: Endometrial curettings MICROSCOPIC DESCRIPTION Slides are reviewed. MICROSCOPIC DIAGNOSIS Endometrial curettings: Scant strips of benign endometrial epithelium and superficial fragment of benign endometrial tissue, consistent with atrophic endometri um. Fragments of benign endocervical epithelium. SJ:papito 11/27/14 Signed Jeffy Suazo 11/27/14 <signature on file> 37-Mps-[id number]:39 INR Fingerstick Comments: Test performed at:[facility] [address] [place] [address] INR ISTAT 1.10 (Normal) Comments: Critical Value > 3.5; ADDENDA: this is for pre-op, will resume tomorrow and recheck it in 1 week. 69-Kkb-255496:39 Prothrombin Time Fingerstick Comments: Test performed at:[facility] [address] [place] [address] PROTIME ISTAT 13.2 {SEC} (Normal) Range: 11.9-14.4 Comments: Reference Range 11.9 - 14.4 09-Orm-058894:41 Partial Thromboplast Time Comments: Test performed at:[facility] [address] [place] [address] PTT 40.9 s (Abnormal) Range: 24.1-36.2 91-Uzl-899105:41 Prothrombin Time w/INR Comments: Test performed at:[facility] [address] [place] [address] INR 2.6 (Normal) PROTIME 27.4 s (Abnormal) Range: 11.7-14.9 :41 Type AND Screen Comments: Surgery Date: 11/26/14Hx of Preganancy in last 3 Months NoEver experience any problems with transfusion(s)? NHx of Transfusion in last 3 Months NReason for Type AND Screen/Red Cells: SURGERYSURGI ADELSO PROCEDURE: .Test performed at:[facility] [address] [place] [address] Antibody Screen NEGATIVE (Normal) BLOOD TYPE GEL A POSITIVE (Normal) :09 CBC W/Diff, Automated Comments: Test performed at:[facility] [address] [place] [address] Absolute Lymph 2.07 {X10_3/ul} (Normal) [...] 4.2-5.4 WBC 3.9 K/mm3 (Abnormal) Range: 4.4-11.0 52-Ezd-54054:09 Comprehensive Metabolic Profil Comments: Test performed at:[facility] [address] [place] [address] GAP 6 (Normal) Range: 5-15 CO2 29.0 [...] Comments: Please note revised CREATININE reference range pgrkceyuw99/22/2015. BUN 19 mg/dL (Abnormal) Range: 7-18 GLU 75 mg/dL (Normal) Range: 70-110 :09 Prothrombin Time w/INR Comments: Test performed at:[facility] [address] [place] [address] INR 2.4 (Normal) PROTIME 25.8 s (Abnormal) Range: 11.7-14.9 :13 Prothrombin Time w/INR Comments: Test performed at:[facility] [address] [place] [address] INR 1.8 (Normal) PROTIME 21.2 s (Abnormal) Range: 11.7-14.9 :06 Prothrombin Time w/INR Comments: Test performed at:[facility] [address] [place] [address] INR 2.2 (Normal) PROTIME 24.4 s (Abnormal) Range: 11.7-14.9 :50 Prothrombin Time w/INR Comments: Test performed at:[facility] [address] [place] [address] INR 1.7 (Normal) PROTIME 20.3 s (Abnormal) Range: 11.7-14.9 34-Pcp-261809:16 Estrogen, Total, Serum Comments: Comments: TSHHas Patient had Radioactive Injection for X-ray?: NTest performed at:[facility] [address] [place] [address] ESTROGEN 4549 54 pg/mL (Normal) Comments: Prepubertal <40 Female Cycle: 1-10 Days 61 - 394 11-20 Days 122 - 437 21-30 Days 156 - 350 Post-Menopausal <40 HMG Treatment for Ovulation Induction: 400 - 800Performed at: - [facility] [id number] Director: Juan Ontiveros MD, Phone: [phone] 43-Nhm-889326:16 Free T3 Comments: Comments: TSHTest performed at:[facility] [address] [place] [address] FREE T3 2.6 pg/mL (Normal) Range: 2.18-3.98 17-Scs-082674:16 Hemoglobin A1c Comments: Test performed at:[facility] [address] [place] [address] HGB A1C 5.0 % (Normal) Range: 4.2-6.3 16-Zru-914190:16 Progesterone Level Comments: Test performed at:[facility] [address] [place] [address] Progesterone 0.48 ng/mL (Normal) Comments: Progesterone Reference Table: UNITS Female: Follicular 0.15 - 1.40 ng/mL Luteal 3.34 - 25.56 ng/mL Mid-luteal 4.44 - 28.03 ng/mL Postmenopausal 0.0 - 0.73 ng/mL : 1st Trimester 11.22 - 90.00 ng /mL 2nd Trimester 25.55 - 89.40 ng/mL 3rd Trimester 48.40 -422.50 ng/mL 11-Hbf-687930:16 T4 Free Direct Comments: Comments: TSHTest performed at:[facility] [address] [place] [address] T4 FREE DIRECT 1.16 ng/dL (Normal) Range: 0.76-1.46 80-Wxf-698365:16 Testosterone, Serum Total Comments: Test performed at:[facility] [address] [place] [address] ; ordered by Dr. Santana Testosterone 35 ng/dL (Normal) Range: 14-76 30-Wyq-470014:16 Thyroid Stim Hormone (TSH) Comments: Comments: TSHTest performed at:[facility] [address] [place] [address] TSH 1.53 {uIU/mL} (Normal) Range: 0.358-3.74 04-Img-83132:11 Prothrombin Time w/INR Comments: Test performed at:[facility] [address] [place] [address] INR 1.8 (Normal) PROTIME 20.9 s (Abnormal) Range: 11.7-14.9 :27 Prothrombin Time w/INR Comments: Test performed at:[facility] [address] [place] [address] INR 2.2 (Normal) PROTIME 24.8 s (Abnormal) Range: 11.7-14.9 :08 Prothrombin Time w/INR Comments: Test performed at:[facility] [address] [place] [address] INR 4.8 (Abnormal) Comments: CRITICAL VALUE REPEATED AND VERIFIED. CALLED TO RADHA WOMACK10/01/14 0855 Nii Lind.RESULTS READ BACK BY DAVID. PROTIME 44.0 s (Abnormal) Range: 11.7-14.9 :14 Prothrombin Time w/INR Comments: Test performed at:[facility] [address] [place] [address] INR 2.6 (Normal) PROTIME 27.9 s (Abnormal) Range: 11.7-14.9 :16 Prothrombin Time w/INR Comments: Test performed at:[facility] [address] [place] [address] INR 5.0 (Abnormal) Comments: CRITICAL VALUE REPEATED AND VERIFIED. CALLED TO Tami DAVISON09/21/14 0809 Elsie Longoria.RESULTS READ BACK BY CONNER . PROTIME 45.5 s (Abnormal) Range: 11.7-14.9 :10 Prothrombin Time w/INR Comments: Test performed at:[facility] [address] [place] [address] INR 3.2 (Normal) PROTIME 32.8 s (Abnormal) Range: 11.7-14.9 :24 Miscellaneous Lab Procedure Comments: Comments: [id number] HHV-6 IGM,SST,REFRIGERATETest(s) Ordered: [id number] HHV-6 IGM,SST,REFRIGERATETest performed at:[facility] [address] [place] [address] [facility] Comments: TEST RESULT UNITS REFERENCE INTERVALHuman Herpes Virus Type 6 IgM <1:10 Neg:<1:10Results for this test are for research purposes only by LAB (Normal) theassay's power switchboard operator. The performance characteristics ofthis product have not been established. Results should notbe used as a diagnostic procedure without confirmation ofthe diagnosis by another med TEST ically established diagnosticproduct or procedure. TESTING PERFORMED AT [facility]. ORIGINAL REPORT ON FILE IN LAB CONTAINS ADDITIONAL TEST SITE IN FORMATION. :18 ANTINUCLEAR ANTIBODIES DIRECT Comments: Test performed at:[address] [address] YURIY-DIRECT Negative (Normal) Comments: Performed at: [address] [id number] Director: Narendra Covarrubias PhD, Phone: [phone] :18 CMV Acute Antibody IgM Comments: Test performed at:[address] [place] [address] CMVIgM AB < 30.0 AU/mL (Normal) Range: 0.0-29.9 Comments: Negative <30.0 Equivocal 30.0 - 34.9 Positive >34.9A positive result is generally indicative of acuteinfection, react ivation or persistent IgM production.Performed at: [address] [id number] Director: Narendra Covarrubias PhD, Phone: [phone] at: [address] [id number] Director: Juan Ontiveros MD, Phone: [phone] at: 2Q - [facility] [address] [place], [place] [id number] Director: Bill Tao PhD, Phone: [phone] 07-Sep-20146:18 CMV Antibody IgG Comments: Test performed at:[facility] [address] [facility] [place] [address] CMV AB IgG > 10.00 U/mL (Abnormal) Range: 0.00-0.59 Comments: Negative <0.60 Equivocal 0.60 - 0.69 Positive >0.69 :18 EBV Acute Prof IgG / IgM Comments: Test performed at:[facility] [address] [place] [address] INTERPRETATION Comment (Normal) Comments: EBV Interpretation ChartInterpretation EBV-IgM EA(D)-IgG VCA-IgG EBNA-IgGEBV Seronegative - - - -Early Phase + - - -Acute Primary + +or- + -InfectionConvalescence/Past - +or- + +InfectionReactivated +or- + + +Infection + Antibody Present - Antibody Absent EB-NAg [id number] 71.5 U/mL (Abnormal) Range: 0.0-17.9 Comments: Negative <18.0 Equivocal 18.0 - 21.9 Positive >21.9 EB-VCA [id number] > 600.0 U/mL (Abnormal) Range: 0.0-17.9 Comments: Negative <18.0 Equivocal 18.0 - 21.9 Positive >21.9 EB-EA IgG [id number] 21.1 U/mL (Abnormal) Range: 0.0-8.9 Comments: Hepatitis A, Hepatitis C and HIV antibodies may cross-reactwith this assay. Negative < 9.0 Equivocal 9.0 - 10.9 Positive >10.9 EB-VCA [id number] < 36.0 U/mL (Normal) Range: 0.0-35.9 Comments: Negative <36.0 Equivocal 36.0 - 43.9 Positive >43.9 :18 Ferritin Comments: Test performed at:[facility] [address]lxlmb[address] [facility] [place] [address] FERRITIN 28 ng/mL (Normal) Range: 8-252 :18 HLA B27 Negative (Normal) Comments: Test performed at:[facility] [address] [facility] [place] [address] Comments: HLA-B*27 NegativeHLA Lab CLIA ID Number [id number] test was performed using PCR (Polymerase ChainReaction)/SSOP (Sequence Specific Oligonucleotide Probes)technique. SBT (Sequence Based Typing) and/ or SSP(Sequence Specific Primers) may be used as supplementalmethods when necessary. Please contact [facility] CustomerService at if you have any questions. Director of HLA Laboratory Dr Bill Tao, PhD :18 Homocysteine Comments: Test performed at:[facility] [address] [facility] [place] [address] HOMOCYSTEINE 6.7 umol/L (Normal) Range: 3.2-10.7 :18 IgG Subclasses Comments: Test performed at:[facility] [address]vrjmey[address] [facility] [place] [address] IgG, SUBCLASS 4 1 mg/dL (Normal) Range: 1-291 Comments: Results verified by repeat testing IgG, SUBCLASS 3 52 mg/dL (Normal) Range: 41-129 IgG, SUBCLASS 2 145 mg/dL (Normal) Range: 117-747 IgG, SUBCLASS 1 264 mg/dL (Abnormal) Range: 422-1292 IGG, QUANT 520 mg/dL (Abnormal) Range: 700-1600 :18 Miscellaneous Lab Procedure Comments: Comments: [id number] HHV-6 IGG,SST,REFRIGERATETest(s) Ordered: [id number] HHV-6 IGG,SST,REFRIGERATEList Test(s) Ordered by Physician: IGA SUBCLASSES, #[id number], SERUM,RM TEMP, 2 MLTest performed at:[facility] [address] [facility] [place] [address] MISC Comments: TEST RESULT UNITS REFERENCE INTERVALHHV 6 IgG Antibodies 2.42 High index Negative <0.76 Equivocal 0.76 - 0.99 LAB (Normal) Positive >0.99Results for this test are for research purposesonly by the assay's power switchboard operator. The performancecharacteristics of this product have not beenestablishe TEST d. Results should not be used as adiagnostic procedure without confirmation of thediagnosis by another medically established diagnosticproduct or procedure. TESTING PERFORMED AT [facility]. ORIGINAL REPORT ON FILE IN LAB CONTAINS ADDITIONAL TEST SITE INFORMATION. :18 Miscellaneous Lab Procedure Comments: Comments: [id number] HLA-DR4,SST,REFRIGERATETest(s) Ordered: [id number] HLA-DR4,SST,REFRIGERATETest performed at:[facility] [address] [place] [id number] [facility] Comments: TEST RESULT UNITS REFERENCE INTERVALHLA DRB1 (IR) DRB1 DRB1*07:NIRAV DRB1 DRB1*- Code Translation: NIRAV 07:0107:09/07:10N/07:11/07:14/07:22 LAB (Normal) /07:24 /07:25/07:26N/07:27/07:28/07:29HLA allele interpretation for all loci based on IMGT/HLAdatabase version 3.15HLBrijesh Lab CLIA ID Number [id number] TEST TESTING PERFORMED AT [facility]. ORIGINAL REPORT ON FILE IN LAB CONTAINS ADDITIONAL TEST SITE INFORMATION. HLA Methodology:HLA result s were obtained using sequence based typing (SBT),sequence specific oligonucleotide probes (SSOP), and/orsequence specific primers (SSP) as needed to obtain therequired resolution. Please contact [facility] [phone] if you have any questions.Director of HLA LaboratoryDr Bill Tao, PhD :18 Miscellaneous Lab Procedure 2 Comments: Comments: [id number] HHV- 6 IGG,SST,REFRIGERATETest(s) Ordered: [id number] HHV-6 IGG,SST,REFRIGERATEList Test(s) Ordered by Physician: IGA SUBCLASSES, #[id number], SERUM,RM TEMP, 2 MLTest performed at:[facility] [address]sviox22[address] [facility] [place] [address] [facility] Comments: TEST RESULT UNITS REFERENCE INTERVALIgA, Subclasses (1-2) Immunoglobulin A, Qn, Serum 161 mg/dL 91 - 414 IgA, Subclass 1 132.0 mg/dL LAB (Normal) 73.2 - 301.2 IgA, Subclass 2 6.2 Low mg/dL 13.4 - 97.9 TESTING PERFORMED AT [facility]. ORIGINAL REPORT ON FILE IN LAB CONTAINS MANFRED TEST TIONAL TEST SITE INFORMATION. 2 :18 Prothrombin Time w/INR Comments: Test performed at:[facility] X[address]jjbdcjf7006 [facility]. [place], [place] [id number] INR 1.9 (Normal) PROTIME 22.3 s (Abnormal) Range: 11.7-14.9 :18 Vitamin B12 664 pg/mL (Normal) Comments: Test performed at:[facility] [address] [place] [address] Range: 211-911 :18 Vitamin D,25 Hydroxy Comments: Test performed at:[facility] [address] [place] [address] Vitamin D 25-OH 58.8 ng/mL (Normal) Comments: Vitamin D 25(OH) Status Range Deficiency <20 ng/mL (50nmol/L) Insuffciency 20 - 30 ng/mL (50 - 75 nmol/L) Sufficiency 30 - 100 ng/mL (75 - 250 nmol/L) Toxicity >100 ng/mL (>250 nmol/L) :13 CBC W/Diff, Automated Comments: Test performed at:[facility] [address] [place] [address] Absolute Lymph 2.08 {X10_3/ul} (Normal) Range: 0.83-4.51 [...] :13 Comprehensive Metabolic Profil Comments: Test performed at:[facility] [address] [place] [address] GAP 7 (Normal) Range: 5-15 [...] 70-110 :13 Lipid Profile Comments: Test performed at:[facility] [address]sh[address] [facility] [address] [place], [place] [id number] VLDL 9 mg/dL (Normal) Range: 5-40 LDL [...] 200-240 mg/dL Borderline >240 mg/dL High Risk :13 Prothrombin Time w/INR Comments: Test performed at:[facility] Brvpwyfpbs6954 [facility] [place] [address] INR 1.5 (Normal) PROTIME 18.4 s (Abnormal) Range: 11.7-14.9 :17 INR Fingerstick Comments: Test performed at:[facility] [address] [place] [address] INR ISTAT 1.50 (Normal) Comments: Critical Value > 3.5 :17 Prothrombin Time Fingerstick Comments: Test performed at:[facility] Yqvwuuhihj4742 [facility] [place] [address] PROTIME ISTAT 17.6 {SEC} (Abnormal) Range: 11.9-14.4 Comments: Reference Range 11.9 - 14.4 :09 INR Fingerstick Comments: Test performed at:[facility] Dfccvopynt1823 [facility] [place] [address] INR ISTAT 1.40 (Normal) Comments: Critical Value > 3.5 :09 Prothrombin Time Fingerstick Comments: Test performed at:[facility] Qwakecrfac1903 [facility] [place] [address] PROTIME ISTAT 17.1 {SEC} (Abnormal) Range: 11.9-14.4 Comments: Reference Range 11.9 - 14.4 :09 Prothrombin Time w/INR Comments: Test performed at:[facility] [address] [place] [address] INR 1.1 (Normal) PROTIME 14.6 s (Normal) Range: 11.7-14.9 :11 INR Fingerstick Comments: Test performed at:[facility] [address] [place] [address] INR ISTAT 1.20 (Normal) Comments: Critical Value > 3.5 :11 Prothrombin Time Fingerstick Comments: Test performed at:[facility] [address] [place] [address] PROTIME ISTAT 13.9 {SEC} (Normal) Range: 11.9-14.4 Comments: Reference Range 11.9 - 14.4 :06 INR Fingerstick Comments: Test performed at:[facility] [address] [place] [address] INR ISTAT 1.10 (Normal) Comments: Critical Value > 3.5 :06 Prothrombin Time Fingerstick Comments: Test performed at:[facility] [address] [place] [address] PROTIME ISTAT 13.6 {SEC} (Normal) Range: 11.9-14.4 Comments: Reference Range 11.9 - 14.4 :28 INR Fingerstick Comments: Test performed at:[facility] [address] [place] [address] INR ISTAT 2.20 (Normal) Comments: Critical Value > 3.5 :28 Prothrombin Time Fingerstick Comments: Test performed at:[facility] [address] [place] [address] PROTIME ISTAT 25.0 {SEC} (Abnormal) Range: 11.9-14.4 Comments: Reference Range 11.9 - 14.4 :19 INR Fingerstick Comments: Test performed at:[facility] [address] [place] [address] INR ISTAT 2.70 (Normal) Comments: Critical Value > 3.5 :19 Prothrombin Time Fingerstick Comments: Test performed at:[facility] [address] [place] [address] PROTIME ISTAT 30.6 {SEC} (Abnormal) Range: 11.9-14.4 Comments: Reference Range 11.9 - 14.4 :09 Prothrombin Time w/INR Comments: Test performed at:[facility] [address] [place] [address] INR 3.2 (Normal) PROTIME 32.6 s (Abnormal) Range: 11.7-14.9 :22 Prothrombin Time w/INR Comments: Test performed at:[facility] [address] [place] [address] INR 2.6 (Normal) PROTIME 27.8 s (Abnormal) Range: 11.7-14.9 :22 Prothrombin Time w/INR Comments: Test performed at:[facility] [address] [place] [address] INR 3.0 (Normal) PROTIME 30.9 s (Abnormal) Range: 11.7-14.9 :12 Prothrombin Time w/INR Comments: Test performed at:[facility] [address] [place] [address] INR 3.4 (Normal) PROTIME 33.7 s (Abnormal) Range: 11.7-14.9 :10 Prothrombin Time w/INR Comments: Test performed at:[facility] [address] [place] [address] INR 3.7 (Abnormal) PROTIME 36.4 s (Abnormal) Range: 11.7-14.9 :20 Prothrombin Time w/INR Comments: Test performed at:[facility] [address] [place] [id number] INR 3.0 (Normal) PROTIME 31.0 s (Abnormal) Range: 11.7-14.9 :10 Prothrombin Time w/INR Comments: Test performed at:[facility] [address] [place] [address] INR 3.0 (Normal) PROTIME 30.7 s (Abnormal) Range: 11.7-14.9 :04 Prothrombin Time w/INR Comments: Test performed at:[facility] [address] [place] [address] INR 1.7 (Normal) PROTIME 19.7 s (Abnormal) Range: 11.7-14.9 :17 Prothrombin Time w/INR Comments: Test performed at:[facility] [address] [place] [address] INR 1.8 (Normal) PROTIME 21.1 s (Abnormal) [...] Comments: Please note revised PROTIME reference range exeoforoz89/14/15. :05 PT INR 3.0 (Normal) PTP 30.6 s (Abnormal) Range: 11.7-14.9 Comments: Please note revised PROTIME reference range /14/15. :07 PT INR 5.6 (Abnormal) PTP 50.1 s (Abnormal) Range: 11.7-14.9 Comments: Please note revised PROTIME reference range qwdzlojtr95/14/15. :03 PT INR 2.5 (Normal) PTP 27.0 s (Abnormal) Range: 11.7-14.9 Comments: Please note revised PROTIME reference range rqahuvomp83/14/15. :03 PT INR 2.0 (Normal) PTP 23.0 s (Abnormal) Range: 11.7-14.9 Comments: Please note revised PROTIME reference range gdodcmqft63/14/15. :06 PT INR 2.1 (Normal) PTP 21.9 s [...] REPEATED AND VERIFIED. CALLED TO HERIBERTO RN08/08/13 Shari3 Nii BarajasRESULTS READ BACK BY SAME. PTP 41.9 s (Abnormal) Range: 11.9-14.4 :17 PT INR 5.5 (Abnormal) PTP 46.9 s (Abnormal) Range: 11.9-14.4 :33 PT INR 7.6 (Abnormal) Comments: TRIED TO CALL DR. BARNES OFFICE, LEFT MESSAGE, 08/01/13 8:30LIZBETH.COOPERRESULTS CALLED TO HERIBERTO 08/01/13 0846 Ayla Stanton.REPORT READ BACK BY SAME. PTP 60.0 s (Abnormal) Range: 11.9-14.4 :16 LIPID Comments: DR BARNES ORDERED PT LIPIDDR KOSTA ORDERED PT LDL 186 mg/dL (Abnormal) Range: 0-130 VLDL 16 mg/dL (Normal) Range: 5-40 HDL 85 mg/dL (Normal) Comments: Reference RangeHDL <40 mg/dL Low HDL CholesterolHDL >or= 60 mg/dL High HDL Cholesterol CHOL 287 mg/dL (Abnormal) Comments: <200 mg/dL Pzirbnfkn632-491 mg/dL Borderline>240 mg/dL High Risk TRIG 78 mg/dL (Normal) Range: 0-199 Comments: Serum Triglycerides Reference IntervalNormal <150 mg/dLBorderline high 150 - 199 mg/dLHigh 200 - 499 mg/ dLVery High > or = 500 mg/dL :16 PT Comments: DR BARNES ORDERED PT LIPIDDR KOSTA ORDERED PT INR 3.0 (Normal) PTP 29.2 s (Abnormal) Range: 11.9-14.4 :17 PT INR 2.3 (Normal) PTP 23.5 s (Abnormal) Range: 11.9-14.4 :09 PT INR 2.7 (Normal) PTP 26.7 s (Abnormal) Range: 11.9-14.4 :08 CBC Comments: DR BARNES ORDERED PTDR KOSTA ORDERED PT CBC CMP MPV 11.0 fL [...] CRITICAL VALUE REPEATED AND VERIFIED. CALLED TO CBSZICR75/14/14 Cuauhtemoc Serrano.RESULTS READ BACK BY OLIVIER . PTP [...] (Normal) PTP 14.5 s (Abnormal) Range: 11.9-14.4 :23 PT INR 3.1 (Normal) PTP 30.3 s [...] CHOL 227 mg/dL (Abnormal) Comments: <200 mg/dL Wpjwgxpji950-695 mg/dL Borderline>240 mg/dL High Risk HDL 81 [...] (Abnormal) Range: 11.9-14.4 :16 CBC Comments: DR Bridges ORDERED PT,CBC,CMPDR FAST ORDERED LIPID, CUUR MPV [...] (Normal) Range: 4.4-11.0 :16 CMP Comments: DR Bridges ORDERED PT,CBC,CMPDR FAST ORDERED LIPID, CUUR GAP [...] (Normal) Range: 70-110 :16 CUUR Comments: DR Bridges ORDERED PT,CBC,CMPDR FAST ORDERED LIPID, CUUR URC See Note {CFU/mL} (Normal) Comments: COLONY COUNT 25,000- 50,000 ORGANISM 1: MIXED GRAM POSITIVE ORGANISMS :16 LIPID Comments: DR Bridges ORDERED PT,CBC,CMPDR FAST ORDERED LIPID, CUUR VLDL [...] CHOL 229 mg/dL (Abnormal) Comments: <200 mg/dL Fkhqnwsgu288-071 mg/dL Borderline>240 mg/dL High Risk :16 PT Comments: DR Bridges ORDERED PT,CBC,CMPDR FAST ORDERED LIPID, CUUR INR [...] Rodriguez M.D.September 21, 2012 at 11:00:07 AM [phone] Signed RU/RU If you are the referring physician and would like to consult with theradiologist who provided this interpretation, please contact Man Styles at [phone]. If this radiologist is unavailable, ender directed to another radiologist to as sist. If you are a patient with a question regarding this report, pleasecontactyour referring physician directly. Professional Interpretation Provided By: [employer], Phone ,Fax These documents contain legally [...] 09/21/12 1105 by ITS IMPORTSign by Laith Rodriguez on 09/21/12 1106 Sign by: Laith Rodriguez 1-Hbx-590359:40 CUUR URC See Note (Normal) Comments: This is an amended result. A prior result that was reported as final has been changed.09/07/12 1448 by LUISAreviously reported as: FINAL COLONY COUNT <1000 ORGANISM 1: MIXED GRAM POSITIVE ORGANISMS 2-Ddd-569014:40 LYMEWB fXQSLSBS99S Absent (Normal) tLYMWBINTM Negative (Normal) Comments: Note: [...] are those recommended byCDC/ASTPHLD. p23=Osp C , p56=fkvkmahni.Note:Sera from individuals with the following may cross reactin the Lyme Western Blot assays: other spirochetal diseases(periodontal disease, leptospirosis, relapsing fever, yaws,and pin ta); connective autoimmune (Rheumatoid Arthritis andSystemic Lupus Erythematosus and also individuals withAntinuclear Antibody); other infections (Angel MountainSpotted Fever; Desirae-Camargo Virus, and Cy tomegalovirus)..Performed at: - [facility] [id number] Director: Juan Ontiveros MD, Phone: [phone] [id number] Absent (Normal) nPBEGTAC55K Absent (Normal) nTTPXSXE24G Absent (Normal) wQEIKPWY06W Absent (Normal) tLYMWBINTG Negative (Normal) Comments: Positive: 5 of the followingBorrelia- specific bands:18,23,28,30,39,41,45,58,66, and 93.Negative: No bands or bandingpatterns which do notmeet positive criteria. vVHLMBNT18E Absent (Normal) sSCTQADP27X Absent (Normal) lNMQQLFO30J Absent (Normal) oVRNONJW20O Present (Abnormal) hUAYGVDZ06B Absent (Normal) eBTIUKDH87I Absent (Normal) hSSTFAEA90C Absent (Normal) aMGOCPFX77I Absent (Normal) :03 PT INR 2.9 (Normal) PTP 28.1 s (Abnormal) Range: 11.9-14.4 06-Yyp-834333:12 Microscopic Examination Comments: PATIENT NOT FASTINGPERFORMED BY: [facility] [facility] [id number] Bacteria Few (Normal) Mucus Threads Present (Normal) Epithelial Cells (non renal) 0-10 {/hpf} (Normal) Range: 0 - 10 RBC None seen {/hpf} (Normal) Range: 0 - 3 WBC None seen {/hpf} (Normal) Range: 0 - 5 83-Cli-418546:12 Lyme Disease Antibody W/ Comments: PATIENT NOT FASTINGPERFORMED BY: [facility] [facility] [id number] Reflex ([id number]) Lyme Ab Interp.,EIA Negative (Normal) Lyme IgG/IgM Ab <0.91 {index} (Normal) Range: 0.00-0.90 Comments: Negative <0.91 Equivocal 0.91 - 1.09 Positive >1.09 Note: The CDC curren tly advises that Western blot testing be performed following all equivocal or positive EIA results. Final diagnosis should include appropriate clinical findi ngs and a positive EIA which is also positive by Western blot. 62-Rpx-925344:12 SED RATE ERYTHROCYTE ([id number]) Comments: PATIENT NOT FASTINGPERFORMED BY: [facility] [facility] [id number] Sedimentation Rate-Westergren 2 mm/h (Normal) Range: 0-40 35-Rkg-275438:12 C-REACTIVE PROTEIN (07718) Comments: PATIENT NOT FASTINGPERFORMED BY: [facility] [facility] [id number] C-Reactive Protein, Quant 0.7 mg/L (Normal) Range: 0.0-4.9 18-Tbd-322943:12 URINALYSIS, W/ MICRO (35500) Comments: PATIENT NOT FASTINGPERFORMED BY: [facility] [facility] [id number] Microscopic Examination See below: (Normal) Nitrite, Urine Negative (Normal) Urobilinogen,Semi-Qn 0.2 mg/dL (Normal) Range: 0.0-1.9 Bilirubin Negative (Normal) Occult Blood Negative (Normal) Ketones 3+ (Abnormal) Glucose Negative (Normal) Protein 1+ (Abnormal) WBC Esterase Negative (Normal) Appearance Clear (Normal) Urine-Color Yellow (Normal) pH 6.0 (Normal) Range: 5.0-7.5 Specific [place] 1.025 (Normal) Range: 1.005-1.030 75-Apb-395781:12 TSH ([id number]) Comments: PATIENT NOT FASTINGPERFORMED BY: [facility] [facility] [id number] TSH 2.400 {uIU/mL} (Normal) Range: 0.450-4.500 40-Fma-142609:12 METABOLIC PANEL, COMPREHENSIVE Comments: PATIENT NOT FASTINGPERFORMED BY: Sw[facility] Ifvocl[address] [facility] [id number] ([id number]) ALT (SGPT) 19 [iU]/L (Normal) Range: 0-32 [...] Glucose, Serum 91 mg/dL (Normal) Range: 65-99 41-Yvb-831554:12 CBC WITH MANUAL DIFF Comments: PATIENT NOT FASTINGPERFORMED BY: BELINDA [facility] HospitalQguzpi[address] [place] [id number] Information: [id number] ([id number]) Immature Grans (Abs) 0.0 {x10E3/uL} (Normal) Range: [...] D deficiency has been defined by the [place] of[place] and an Endocrine Society practice guideline as alevel of serum 25-OH vitamin D less than 20 ng/mL (1,2).The Endocrine Society went on to further define vitamin Dinsufficiency as a level between 21 and 29 ng/mL (2).1. IOM ([place] of [employer]). 2010. Dietary reference intakes for calcium and D. [place]: The National Academies Press.2. Ana MF, Heriberto GORDON, Jayla BECKFORD, et al. Evaluation, treatment, and prevention of vitamin D deficiency: an Endocrine Society clinical practice guideline. JCEM. 2010; 96(9): 1911-30.Performed at: [address] [id number] Director: Narendra Covarrubias PhD, Phone: [phone] Plan of Care Name Dates Details Instructions BMI 22.0-22.9, adult : Follow up in [...] Planned Observations CBC, Platelets & Auto Diff ([id number])Indication: Leukopenia On: :00 Request CBC, Platelets & Auto Diff ([id number])Indication: Leukopenia On: : Request CBC, Platelets & Auto Diff ([id number])Indication: Leukopenia On: 13-Mar-2042 Request CBC, Platelets & Auto Diff ([id number])Indication: Leukopenia On: :00 Request CBC, Platelets & Auto Diff ([id number])Indication: Leukopenia On: : Request CBC, Platelets & Auto Diff ([id number])Indication: Leukopenia On: : Request CBC, Platelets & Auto Diff ([id number])Indication: Leukopenia On: 18-Mar-2041 Request CBC, Platelets & Auto Diff ([id number])Indication: Leukopenia On: :00 Request CBC, Platelets & Auto Diff ([id number])Indication: Leukopenia On: :00 Request CBC, Platelets & Auto Diff ([id number])Indication: Leukopenia On: :00 Request CBC, Platelets & Auto Diff ([id number])Indication: Leukopenia On: 23-Mar-2040 Request CBC, Platelets & Auto Diff ([id number])Indication: Leukopenia On: :00 Request CBC, Platelets & Auto Diff ([id number])Indication: Leukopenia On: :00 Request CBC, Platelets & Auto Diff ([id number])Indication: Leukopenia On: :00 Request CBC, Platelets & Auto Diff ([id number])Indication: Leukopenia On: 29-Mar-2039 Request CBC, Platelets & Auto Diff ([id number])Indication: Leukopenia On: : Request CBC, Platelets & Auto Diff ([id number])Indication: Leukopenia On: : Request CBC, Platelets & Auto Diff ([id number])Indication: Leukopenia On: :00 Request CBC, Platelets & Auto Diff ([id number])Indication: Leukopenia On: 03-Apr-2038 Request CBC, Platelets & Auto Diff ([id number])Indication: Leukopenia On: :00 Request CBC, Platelets & Auto Diff ([id number])Indication: Leukopenia On: :00 Request CBC, Platelets & Auto Diff ([id number])Indication: Leukopenia On: :00 Request CBC, Platelets & Auto Diff ([id number])Indication: Leukopenia On: 08-Apr-2037 Request CBC, Platelets & Auto Diff ([id number])Indication: Leukopenia On: :00 Request CBC, Platelets & Auto Diff ([id number])Indication: Leukopenia On: :00 Request CBC, Platelets & Auto Diff ([id number])Indication: Leukopenia On: :00 Request CBC, Platelets & Auto Diff ([id number])Indication: Leukopenia On: 13-Apr-2036 Request CBC, Platelets & Auto Diff ([id number])Indication: Leukopenia On: :00 Request CBC, Platelets & Auto Diff ([id number])Indication: Leukopenia On: :00 Request CBC, Platelets & Auto Diff ([id number])Indication: Leukopenia On: :00 Request CBC, Platelets & Auto Diff ([id number])Indication: Leukopenia On: 19-Apr-2035 Request CBC, Platelets & Auto Diff ([id number])Indication: Leukopenia On: : Request CBC, Platelets & Auto Diff ([id number])Indication: Leukopenia On: : Request CBC, Platelets & Auto Diff ([id number])Indication: Leukopenia On: : Request CBC, Platelets & Auto Diff ([id number])Indication: Leukopenia On: 24-Apr-2034 Request CBC, Platelets & Auto Diff ([id number])Indication: Leukopenia On: : Request CBC, Platelets & Auto Diff ([id number])Indication: Leukopenia On: : Request CBC, Platelets & Auto Diff ([id number])Indication: Leukopenia On: : Request CBC, Platelets & Auto Diff ([id number])Indication: Leukopenia On: 29-Apr-2033 Request CBC, Platelets & Auto Diff ([id number])Indication: Leukopenia On: :00 Request CBC, Platelets & Auto Diff ([id number])Indication: Leukopenia On: :00 Request CBC, Platelets & Auto Diff ([id number])Indication: Leukopenia On: :00 Request CBC, Platelets & Auto Diff ([id number])Indication: Leukopenia On: 04-May-2032 Request CBC, Platelets & Auto Diff ([id number])Indication: Leukopenia On: :00 Request CBC, Platelets & Auto Diff ([id number])Indication: Leukopenia On: :00 Request CBC, Platelets & Auto Diff ([id number])Indication: Leukopenia On: :00 Request CBC, Platelets & Auto Diff ([id number])Indication: Leukopenia On: 10-May-2031 Request CBC, Platelets & Auto Diff ([id number])Indication: Leukopenia On: 09-Feb-2031 Request CBC, Platelets & Auto Diff ([id number])Indication: Leukopenia On: :00 Request CBC, Platelets & Auto Diff ([id number])Indication: Leukopenia On: :00 Request CBC, Platelets & Auto Diff ([id number])Indication: Leukopenia On: 15-May-2030 Request CBC, Platelets & Auto Diff ([id number])Indication: Leukopenia On: 14-Feb-2030 Request CBC, Platelets & Auto Diff ([id number])Indication: Leukopenia On: :00 Request CBC, Platelets & Auto Diff ([id number])Indication: Leukopenia On: :00 Request CBC, Platelets & Auto Diff ([id number])Indication: Leukopenia On: 20-May-2029 Request CBC, Platelets & Auto Diff ([id number])Indication: Leukopenia On: 19-Feb-2029 Request CBC, Platelets & Auto Diff ([id number])Indication: Leukopenia On: :00 Request CBC, Platelets & Auto Diff ([id number])Indication: Leukopenia On: : Request CBC, Platelets & Auto Diff ([id number])Indication: Leukopenia On: 25-May-2028 Request CBC, Platelets & Auto Diff ([id number])Indication: Leukopenia On: 25-Feb-2028 Request CBC, Platelets & Auto Diff ([id number])Indication: Leukopenia On: :00 Request CBC, Platelets & Auto Diff ([id number])Indication: Leukopenia On: :00 Request CBC, Platelets & Auto Diff ([id number])Indication: Leukopenia On: 31-May-2027 Request CBC, Platelets & Auto Diff ([id number])Indication: Leukopenia On: 02-Mar-2027 Request CBC, Platelets & Auto Diff ([id number])Indication: Leukopenia On: :00 Request CBC, Platelets & Auto Diff ([id number])Indication: Leukopenia On: :00 Request CBC, Platelets & Auto Diff ([id number])Indication: Leukopenia On: 05-Jun-2026 Request CBC, Platelets & Auto Diff ([id number])Indication: Leukopenia On: 07-Mar-2026 Request CBC, Platelets & Auto Diff ([id number])Indication: Leukopenia On: :00 Request CBC, Platelets & Auto Diff ([id number])Indication: Leukopenia On: :00 Request CBC, Platelets & Auto Diff ([id number])Indication: Leukopenia On: 10-Jun-2025 Request CBC, Platelets & Auto Diff ([id number])Indication: Leukopenia On: 12-Mar-2025 Request CBC, Platelets & Auto Diff ([id number])Indication: Leukopenia On: :00 Request CBC, Platelets & Auto Diff ([id number])Indication: Leukopenia On: :00 Request CBC, Platelets & Auto Diff ([id number])Indication: Leukopenia On: :00 Request CBC, Platelets & Auto Diff ([id number])Indication: Leukopenia On: 17-Mar-2024 Request CBC, Platelets & Auto Diff ([id number])Indication: Leukopenia On: : Request CBC, Platelets & Auto Diff ([id number])Indication: Leukopenia On: : Request CBC, Platelets & Auto Diff ([id number])Indication: Leukopenia On: : Request CBC, Platelets & Auto Diff ([id number])Indication: Leukopenia On: 23-Mar-2023 Request CBC, Platelets & Auto Diff ([id number])Indication: Leukopenia On: :00 Request CBC, Platelets & Auto Diff ([id number])Indication: Leukopenia On: :00 Request CBC, Platelets & Auto Diff ([id number])Indication: Leukopenia On: :00 Request CBC, Platelets & Auto Diff ([id number])Indication: Leukopenia On: 28-Mar-2022 Request CBC, Platelets & Auto Diff ([id number])Indication: Leukopenia On: :00 Request CBC, Platelets & Auto Diff ([id number])Indication: Leukopenia On: :00 Request CBC, Platelets & Auto Diff ([id number])Indication: Leukopenia On: :00 Request CBC, Platelets & Auto Diff ([id number])Indication: Leukopenia On: 02-Apr-2021 Request CBC, Platelets & Auto Diff ([id number])Indication: Leukopenia On: :00 Request CBC, Platelets & Auto Diff ([id number])Indication: Leukopenia On: :00 Request CBC, Platelets & Auto Diff ([id number])Indication: Leukopenia On: 11:00 Request CBC, Platelets & Auto Diff ([id number])Indication: Leukopenia On: 07-Apr-2020 Request CBC, Platelets & Auto Diff ([id number])Indication: Leukopenia On: 08-Jan-2020 Request CBC, Platelets & Auto Diff ([id number])Indication: Leukopenia On: 10-Oct-2019 Request CBC, Platelets & Auto Diff ([id number])Indication: Leukopenia On: 12-Jul-2019 Request CBC, Platelets & Auto Diff ([id number])Indication: Leukopenia On: 13-Apr-2019 Request CBC, Platelets & Auto Diff ([id number])Indication: Leukopenia On: 13-Jan-2019 Request CBC, Platelets & Auto Diff ([id number])Indication: Leukopenia On: 15-Oct-2018 Request CBC, Platelets & Auto Diff ([id number])Indication: Leukopenia On: 17-Jul-2018 Request PT (Prothrobim Time) ([id number])Indication: Anticoagulated on Coumadin On: 23-May-2018 Request PT (Prothrobim Time) ([id number])Indication: Anticoagulated on Coumadin On: 16-May-2018 Request PT (Prothrobim Time) ([id number])Indication: Anticoagulated on Coumadin On: 09-May-2018 Request PT (Prothrobim Time) ([id number])Indication: Anticoagulated on Coumadin On: 02-May-2018 Request PT (Prothrobim Time) ([id number])Indication: Anticoagulated on Coumadin On: 25-Apr-2018 Request CBC, Platelets & Auto Diff ([id number])Indication: Leukopenia On: 18-Apr-2018 Request PT (Prothrobim Time) ([id number])Indication: Anticoagulated on Coumadin On: 18-Apr-2018 Request PT (Prothrobim Time) ([id number])Indication: Anticoagulated on Coumadin On: 11-Apr-2018 Request PT (Prothrobim Time) ([id number])Indication: Anticoagulated on Coumadin On: 04-Apr-2018 Request PT (Prothrobim Time) ([id number])Indication: Anticoagulated on Coumadin On: 28-Mar-2018 Request PT (Prothrobim Time) ([id number])Indication: Anticoagulated on Coumadin On: 21-Mar-2018 Request PT (Prothrobim Time) ([id number])Indication: Anticoagulated on Coumadin On: 14-Mar-2018 Request PT (Prothrobim Time) ([id number])Indication: Anticoagulated on Coumadin On: 07-Mar-2018 Request PT (Prothrobim Time) ([id number])Indication: Anticoagulated on Coumadin On: 28-Feb-2018 Request PT (Prothrobim Time) ([id number])Indication: Anticoagulated on Coumadin On: 21-Feb-2018 Request PT (Prothrobim Time) ([id number])Indication: Anticoagulated on Coumadin On: 14-Feb-2018 Request YURIY (ANTINUCLEAR ANTIBODY) ([id number])Indication: Leukopenia On: 0-Iks-804928:30 Request Comments: give lab slips UPEP ([id number])Indication: Leukopenia On: 9-Rmq-521576:30 Request Comments: give lab slips SPEP ([id number])Indication: Leukopenia On: 5-Klv-383657:29 Request Comments: give lab slips PT (Prothrobim Time) ([id number])Indication: Anticoagulated on Coumadin On: 07-Feb-2018 Request PT (Prothrobim Time) ([id number])Indication: Anticoagulated on Coumadin On: 31-Jan-2018 Request PT (Prothrobim Time) ([id number])Indication: Anticoagulated on Coumadin On: 24-Jan-2018 Request PT (Prothrobim Time) ([id number])Indication: Anticoagulated on Coumadin On: 17-Jan-2018 Request PT (Prothrobim Time) ([id number])Indication: Anticoagulated on Coumadin On: 10-Jan-2018 Request PT (Prothrobim Time) ([id number])Indication: Anticoagulated on Coumadin On: 03-Jan-2018 Request PT (Prothrobim Time) ([id number])Indication: Anticoagulated on Coumadin On: 27-Dec-2017 Request PT (Prothrobim Time) ([id number])Indication: Anticoagulated on Coumadin On: 20-Dec-2017 Request BILIRUBIN, TOTAL ([id number])Indication: Encounter for screening for lipid disorder On: 10-Neb-919445:28 Request BILIRUBIN, DIRECT ([id number])Indication: Encounter for screening for lipid disorder On: 58-Kgo-967613:28 Request CBC, PLATELETS & AUT DIFF ([id number])Indication: Encounter for screening for lipid disorder On: 45-Lmw-844486:47 Request Metabolic Panel, Comprehensive ([id number])Indication: Encounter for screening for lipid disorder On: 48-Xxl-06771:10 Request CBC & PLATELETS (AUTO) ([id number])Indication: Encounter for screening for lipid disorder On: 09-Whw-45777:10 Request LIPID PANEL ([id number])Indication: Encounter for screening for lipid disorder On: 62-Hnd-70787:09 Request PT (Prothrobim Time) ([id number])Indication: Anticoagulated on Coumadin On: 13-Dec-2017 Request PT (Prothrobim Time) ([id number])Indication: Anticoagulated on Coumadin On: 06-Dec-2017 Request PT (Prothrobim Time) ([id number])Indication: Anticoagulated on Coumadin On: 29-Nov-2017 Request PT (Prothrobim Time) ([id number])Indication: Anticoagulated on Coumadin On: 22-Nov-2017 Request PT (Prothrobim Time) ([id number])Indication: Anticoagulated on Coumadin On: 15-Nov-2017 Request PT (Prothrobim Time) ([id number])Indication: Anticoagulated on Coumadin On: 08-Nov-2017 Request PT (Prothrobim Time) ([id number])Indication: Anticoagulated on Coumadin On: 01-Nov-2017 Request PT (Prothrobim Time) ([id number])Indication: Anticoagulated on Coumadin On: 25-Oct-2017 Request PT (Prothrobim Time) ([id number])Indication: Anticoagulated on Coumadin On: 18-Oct-2017 Request PT (Prothrobim Time) ([id number])Indication: Anticoagulated on Coumadin On: 11-Oct-2017 Request PT (Prothrobim Time) ([id number])Indication: Anticoagulated on Coumadin On: 04-Oct-2017 Request PT (Prothrobim Time) ([id number])Indication: Anticoagulated on Coumadin On: 27-Sep-2017 Request PT (Prothrobim Time) ([id number])Indication: Anticoagulated on Coumadin On: 20-Sep-2017 Request PT (Prothrobim Time) ([id number])Indication: Anticoagulated on Coumadin On: 13-Sep-2017 Request PT (Prothrobim Time) ([id number])Indication: Anticoagulated on Coumadin On: 06-Sep-2017 Request PT (Prothrobim Time) ([id number])Indication: Anticoagulated on Coumadin On: 30-Aug-2017 Request PT (Prothrobim Time) ([id number])Indication: Anticoagulated on Coumadin On: 23-Aug-2017 Request PT (Prothrobim Time) ([id number])Indication: Anticoagulated on Coumadin On: 16-Aug-2017 Request PT (Prothrobim Time) ([id number])Indication: Anticoagulated on Coumadin On: 09-Aug-2017 Request PT (Prothrobim Time) ([id number])Indication: Anticoagulated on Coumadin On: 02-Aug-2017 Request PT (Prothrobim Time) ([id number])Indication: Anticoagulated on Coumadin On: 26-Jul-2017 Request PT (Prothrobim Time) ([id number])Indication: Anticoagulated on Coumadin On: 19-Jul-2017 Request PT (Prothrobim Time) ([id number])Indication: Anticoagulated on Coumadin On: 12-Jul-2017 Request PT (Prothrobim Time) ([id number])Indication: Anticoagulated on Coumadin On: 05-Jul-2017 Request PT (Prothrobim Time) ([id number])Indication: Anticoagulated on Coumadin On: 28-Jun-2017 Request PT (Prothrobim Time) ([id number])Indication: Anticoagulated on Coumadin On: 21-Jun-2017 Request PT (Prothrobim Time) ([id number])Indication: Anticoagulated on Coumadin On: 14-Jun-2017 Request PT (Prothrobim Time) ([id number])Indication: Anticoagulated on Coumadin On: 07-Jun-2017 Request PT (Prothrobim Time) ([id number])Indication: Anticoagulated on Coumadin On: 31-May-2017 Request PT (Prothrobim Time) ([id number])Indication: Anticoagulated on Coumadin On: 25-May-2017 Request PT (Prothrobim Time) ([id number])Indication: Anticoagulated on Coumadin On: 25-May-2017 Request PT (Prothrobim Time) ([id number])Indication: Anticoagulated on Coumadin On: 24-May-2017 Request PT (Prothrobim Time) ([id number])Indication: Anticoagulated on Coumadin On: 17-May-2017 Request PT (Prothrobim Time) ([id number])Indication: Anticoagulated on Coumadin On: 10-May-2017 Request PT (Prothrobim Time) ([id number])Indication: Anticoagulated on Coumadin On: 03-May-2017 Request PT (Prothrobim Time) ([id number])Indication: Anticoagulated on Coumadin On: 26-Apr-2017 Request PT (Prothrobim Time) ([id number])Indication: Anticoagulated on Coumadin On: 25-Apr-2017 Request PT (Prothrobim Time) ([id number])Indication: Anticoagulated on Coumadin On: 25-Apr-2017 Request PT (Prothrobim Time) ([id number])Indication: Anticoagulated on Coumadin On: 19-Apr-2017 Request PT (Prothrobim Time) ([id number])Indication: Anticoagulated on Coumadin On: 12-Apr-2017 Request PT (Prothrobim Time) ([id number])Indication: Anticoagulated on Coumadin On: 05-Apr-2017 Request PT (Prothrobim Time) ([id number])Indication: Anticoagulated on Coumadin On: 29-Mar-2017 Request PT (Prothrobim Time) ([id number])Indication: Anticoagulated on Coumadin On: 26-Mar-2017 Request PT (Prothrobim Time) ([id number])Indication: Anticoagulated on Coumadin On: 26-Mar-2017 Request PT (Prothrobim Time) ([id number])Indication: Anticoagulated on Coumadin On: 22-Mar-2017 Request PT (Prothrobim Time) ([id number])Indication: Anticoagulated on Coumadin On: 15-Mar-2017 Request PT (Prothrobim Time) ([id number])Indication: Anticoagulated on Coumadin On: 08-Mar-2017 Request PT (Prothrobim Time) ([id number])Indication: shelter (current) use of 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) On: 70-Fen-309599:48 Request Comments: Standing order PT (Prothrobim Time) ([id number])Indication: Anticoagulated on Coumadin On: 01-Mar-2017 Request PT (Prothrobim Time) ([id number])Indication: Anticoagulated on Coumadin On: 24-Feb-2017 Request PT (Prothrobim Time) ([id number])Indication: Anticoagulated on Coumadin On: 24-Feb-2017 Request PT (Prothrobim Time) ([id number])Indication: Anticoagulated on Coumadin On: 22-Feb-2017 Request PT (Prothrobim Time) ([id number])Indication: Anticoagulated on Coumadin On: 15-Feb-2017 Request PT (Prothrobim Time) ([id number])Indication: Anticoagulated on Coumadin On: 08-Feb-2017 Request PT (Prothrobim Time) ([id number])Indication: Anticoagulated on Coumadin On: 01-Feb-2017 Request PT (Prothrobim Time) ([id number])Indication: Anticoagulated on Coumadin On: 25-Jan-2017 Request PT (Prothrobim Time) ([id number])Indication: Anticoagulated on Coumadin On: 25-Jan-2017 Request PT (Prothrobim Time) ([id number])Indication: Anticoagulated on Coumadin On: 25-Jan-2017 Request PT (Prothrobim Time) ([id number])Indication: Anticoagulated on Coumadin On: 18-Jan-2017 Request PT (Prothrobim Time) ([id number])Indication: Anticoagulated on Coumadin On: 11-Jan-2017 Request PT (Prothrobim Time) ([id number])Indication: Anticoagulated on Coumadin On: 04-Jan-2017 Request PT (Prothrobim Time) ([id number])Indication: Anticoagulated on Coumadin On: 28-Dec-2016 Request PT (Prothrobim Time) ([id number])Indication: Anticoagulated on Coumadin On: 26-Dec-2016 Request PT (Prothrobim Time) ([id number])Indication: Anticoagulated on Coumadin On: 26-Dec-2016 Request PT (Prothrobim Time) ([id number])Indication: Anticoagulated on Coumadin On: 21-Dec-2016 Request PT (Prothrobim Time) ([id number])Indication: Anticoagulated on Coumadin On: 14-Dec-2016 Request PT (Prothrobim Time) ([id number])Indication: Anticoagulated on Coumadin On: 07-Dec-2016 Request PT (Prothrobim Time) ([id number])Indication: Anticoagulated on Coumadin On: 30-Nov-2016 Request PT (Prothrobim Time) ([id number])Indication: Anticoagulated on Coumadin On: 26-Nov-2016 Request PT (Prothrobim Time) ([id number])Indication: Anticoagulated on Coumadin On: 26-Nov-2016 Request PT (Prothrobim Time) ([id number])Indication: Anticoagulated on Coumadin On: 23-Nov-2016 Request PT (Prothrobim Time) ([id number])Indication: Anticoagulated on Coumadin On: 16-Nov-2016 Request PT (Prothrobim Time) ([id number])Indication: Anticoagulated on Coumadin On: 09-Nov-2016 Request PT (Prothrobim Time) ([id number])Indication: Anticoagulated on Coumadin On: 02-Nov-2016 Request PT (Prothrobim Time) ([id number])Indication: Anticoagulated on Coumadin On: 27-Oct-2016 Request PT (Prothrobim Time) ([id number])Indication: Anticoagulated on Coumadin On: 27-Oct-2016 Request PT (Prothrobim Time) ([id number])Indication: Anticoagulated on Coumadin On: 26-Oct-2016 Request PT (Prothrobim Time) ([id number])Indication: Anticoagulated on Coumadin On: 19-Oct-2016 Request PT (Prothrobim Time) ([id number])Indication: Anticoagulated on Coumadin On: 12-Oct-2016 Request PT (Prothrobim Time) ([id number])Indication: Anticoagulated on Coumadin On: 05-Oct-2016 Request PT (Prothrobim Time) ([id number])Indication: Anticoagulated on Coumadin On: 28-Sep-2016 Request PT (Prothrobim Time) ([id number])Indication: Anticoagulated on Coumadin On: 27-Sep-2016 Request PT (Prothrobim Time) ([id number])Indication: Anticoagulated on Coumadin On: 27-Sep-2016 Request PT (Prothrobim Time) ([id number])Indication: Anticoagulated on Coumadin On: 21-Sep-2016 Request PT (Prothrobim Time) ([id number])Indication: Anticoagulated on Coumadin On: 14-Sep-2016 Request PT (Prothrobim Time) ([id number])Indication: Anticoagulated on Coumadin On: 07-Sep-2016 Request PT (Prothrobim Time) ([id number])Indication: Anticoagulated on Coumadin On: 31-Aug-2016 Request PT (Prothrobim Time) ([id number])Indication: Anticoagulated on Coumadin On: 28-Aug-2016 Request PT (Prothrobim Time) ([id number])Indication: Anticoagulated on Coumadin On: 28-Aug-2016 Request PT (Prothrobim Time) ([id number])Indication: Anticoagulated on Coumadin On: 24-Aug-2016 Request PT (Prothrobim Time) ([id number])Indication: Anticoagulated on Coumadin On: 17-Aug-2016 Request PT (Prothrobim Time) ([id number])Indication: Anticoagulated on Coumadin On: 10-Aug-2016 Request PT (Prothrobim Time) ([id number])Indication: Anticoagulated on Coumadin On: 03-Aug-2016 Request PT (Prothrobim Time) ([id number])Indication: Anticoagulated on Coumadin On: 29-Jul-2016 Request PT (Prothrobim Time) ([id number])Indication: Anticoagulated on Coumadin On: 29-Jul-2016 Request PT (Prothrobim Time) ([id number])Indication: Anticoagulated on Coumadin On: 27-Jul-2016 Request PT (Prothrobim Time) ([id number])Indication: Anticoagulated on Coumadin On: 20-Jul-2016 Request PT (Prothrobim Time) ([id number])Indication: Anticoagulated on Coumadin On: 13-Jul-2016 Request PT (Prothrobim Time) ([id number])Indication: Anticoagulated on Coumadin On: 06-Jul-2016 Request Metabolic Panel, Comprehensive ([id number])Indication: Irritable Bowel Syndrome On: 45-Ezr-947313:28 Request TSH ([id number])Indication: Irritable Bowel Syndrome On: 15-Ohn-152754:28 Request CBC, Platelets & Auto Diff ([id number])Indication: Irritable Bowel Syndrome On: 02-Ult-027187: Request PT (Prothrobim Time) ([id number])Indication: Anticoagulated on Coumadin On: 82-Uce-245504:24 Request PT (Prothrobim Time) ([id number])Indication: DVT (deep venous thrombosis) On: 02-Smv-657137:11 Request Comments: INR - STANDING ORDER Vitamin D Hydroxy ([id number])Indication: Osteoporosis On: 63-Viu-183775:16 Request TSH ([id number])Indication: Osteoporosis On: :16 Request CBC with auto diff ([id number])Indication: Benign Essential Hypertension On: :16 Request METABOLIC PANEL, COMPREHENSIVE ([id number])Indication: Benign Essential Hypertension On: 53-Mxc-056974:16 Request LIPID PANEL ([id number])Indication: Hyperlipidemia On: :16 Request CBC W/AUTO DIFF WBC ([id number])Indication: Benign Essential Hypertension On: :34 Request METABOLIC PANEL, COMPREHENSIVE ([id number])Indication: Benign Essential Hypertension On: :34 Request TSH ([id number])Indication: Osteoporosis On: :39 Request CBC W/AUTO DIFF WBC ([id number])Indication: Osteoporosis On: :39 Request LIPID PANEL ([id number])Indication: Hyperlipidemia On: :38 Request METABOLIC PANEL, COMPREHENSIVE ([id number])Indication: Benign Essential Hypertension On: :38 Request PT (Prothrobim Time) ([id number])Indication: DVT (deep venous thrombosis) On: 1-Tzt-893321:18 Request Comments: FINGER STICKSTANDING ORDER PT (Prothrobim Time) ([id number])Indication: DVT (deep venous thrombosis) On: 18-Jnj-285548:28 Request Comments: Standing Order URINALYSIS, W/ MICRO ([id number])Indication: Benign Essential Hypertension On: :37 Request METABOLIC PANEL, COMPREHENSIVE ([id number])Indication: Benign Essential Hypertension On: :37 Request LIPID PANEL ([id number])Indication: Hyperlipidemia On: :37 Request CBC W/AUTO DIFF WBC ([id number])Indication: DVT (deep venous thrombosis) On: :37 Request PT (Prothrobim Time) ([id number])Indication: DVT (deep venous thrombosis) On: 84-Uwm-695588:02 Request CBC WITH MANUAL DIFF ([id number])Indication: Benign Essential Hypertension On: :39 Request METABOLIC PANEL, COMPREHENSIVE ([id number])Indication: Hyperlipidemia On: :39 Request LIPID PANEL ([id number])Indication: Hyperlipidemia On: :39 Request PT (Prothrobim Time) ([id number])Indication: DVT (deep venous thrombosis) On: :07 Request Comments: pls call converting technician Dr Hunter with results on 05/20/13 PT (Prothrobim Time) ([id number])Indication: DVT (deep venous thrombosis) On: 83-Qrz-064240:00 Request Comments: Standing Order PT (Prothrobim Time) ([id number])Indication: DVT (deep venous thrombosis) On: 41-Wyt-51205:59 Request Comments: INR - STANDING ORDER x 1 year URINALYSIS, W/ MICRO ([id number])Indication: Benign Essential Hypertension On: :15 Request CBC WITH MANUAL DIFF ([id number])Indication: Benign Essential Hypertension On: 07-Feb-20139:15 Request METABOLIC PANEL, COMPREHENSIVE ([id number])Indication: Benign Essential Hypertension On: 07-Feb-20139:14 Request LIPID PANEL ([id number])Indication: Hyperlipidemia On: :14 Request METABOLIC PANEL, COMPREHENSIVE ([id number])Indication: Benign Essential Hypertension On: 47-Xzp-72409:06 Request LIPID PANEL ([id number])Indication: Hyperlipidemia On: 52-Eac-38575:06 Request URINE HANNAH CULTURE-IDENTIFICATN ([id number])Indication: Urinary frequency On: 07-Sep-20128:56 Request URINE HANNAH CULTURE-IDENTIFICATN ([id number])Indication: Insect bite On: 19-Fvq-832572:19 Request Lyme Disease,Serum, Western Blot ([id number])Indication: Insect bite On: 86-Flb-275873:19 Request PT (Prothrobim Time) ([id number])Indication: DVT (deep venous thrombosis) On: 33-Beo-035319:59 Request Comments: standing order LIPID PANEL ([id number])Indication: FAMILY HISTORY OF ISCHEMIC HEART DISEASE On: 70-Xlh-776064:28 Request LIPID PANEL ([id number])Indication: FAMILY HISTORY OF ISCHEMIC HEART DISEASE On: 8-Vsc-965331:51 Request Vitamin D Hydroxy ([id number])Indication: Osteoporosis On: :18 Request TSH ([id number])Indication: Osteoporosis On: :18 Request URINALYSIS, W/ MICRO ([id number])Indication: Osteoporosis On: :18 Request CBC WITH MANUAL DIFF ([id number])Indication: Osteoporosis On: :18 Request METABOLIC PANEL, COMPREHENSIVE ([id number])Indication: Osteoporosis On: :18 Request PTT (Activated Partial Thromboplastin Time) ([id number])Indication: DVT (deep venous thrombosis) On: :16 Request PT (Prothrobim Time) ([id number])Indication: DVT (deep venous thrombosis) On: :16 Request Planned Encounters Medical; 3 Month FU - On: 17-May-2018 8:30 [facility] Johnnie DAVIES BrendaBhavya Blair CNP Brenda Planned Procedures DEXA SCAN AXIAL SKELETON ([id number])By: On: 17-Dec-2017 Intent Johnnie DAVIES Brenda Johnnie DAVIES Brenda Aerosol Treatment ([id number])By: Johnnie On: 02-Jun-2017 Intent SAMSON Brenda Ciraul SAMSON Brenda Ultrasound - LiverBy: Johnnie DAVIES Selam On: 15-Dec-2016 Intent Bhavya Hannonraul SAMSON Brenda Aerosol Treatment ([id number])By: Johnnie On: 13-Oct-2016 Intent SAMSONSelam Bhavya Hannonraul DAVIES Brenda Aerosol Treatment ([id number])By: Aleksey On: 19-Feb-2015 Intent Eliana HOFFMANN Ultrasound - AortaBy: Helen Barnes DO On: 18-Dec-2014 Intent EKG ([id number])By: Helen Barnes DO On: 05-Nov-2014 Intent Comments: ekg showed normal sinus rhythym, normal axis, no acute st/t wave changes BILATERAL MAMMOGRAMS ([id number])By: Timothy On: 17-Sep-2014 Intent Helen [place] Radiology - Shoulder - LeftBy: Bonezzi On: 05-Mar-2014 Intent Fatimah RANDLE Comments: if not better with PT MAMMOGRAM, SCREENING, BOTH BREASTS On: 08-Aug-2013 Intent ([id number])By: Helen Barnes DO Eprescribed prescriptions ([id number])By: On: 08-Aug-2013 Intent Helen Barnes DO DXA, BONE DENSITY, AXIAL SKELETON On: 21-Oct-2012 Intent ([id number])By: Heeln Barnes DO Comments: dexa- dec Eprescribed prescriptions ([id number])By: On: 21-Oct-2012 Intent So Bailey Breast Screening - BilateralBy: Timothy On: 19-Sep-2012 Intent Helen [place] Eprescribed prescriptions ([id number])By: On: 30-Aug-2012 Intent So Bailey Spirometry ([id number])By: Helen Barnes DO On: 11-Mar-2012 Intent A Comments: good effort and curve mild obst- Doppler Ultrasound OtherBy: Timothy [place], On: 11-Mar-2012 Intent Heeln Coley Comments: both legs- stat call results Eprescribed prescriptions ([id number])By: On: 11-Mar-2012 Intent So Bailey TD Injection , IM ([id number])By: Leo, On: 11-Mar-2012 Intent So Comments: 2003 FLU VAC, SPLIT, >3 YEARS, INTRAMUSC On: 11-Mar-2012 Intent ([id number])By: So Bailey Comments: got at [facility] [place] [facility] Instructions Name Dates Details Nonsmoker : How to access health information [...] Coumadin : DISCONTINUED - PT (PROTHROMBIN TIME) ([id number]) Indication: Anticoagulated on Coumadin Irritable Bowel Syndrome [...] Osteoporosis : Patient Instructions Indication: Osteoporosis Encounters Office Visit On: 07-Feb-2018 12:55 Encounter Reason: Follow up tests - Diagnostic tests include other (labs). Note for Discuss procedure results: Reviewing low WBC from 01-14-18 with WBC of 3.3 this was repeat. 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 The patient has noticed nothing from the geriatic depression scale. Other providers contributing to the patient's care are sales representative livestock (dr. meseret santana) and other: (eye- dr. [...] Medicine Annotation/Addendum On: 01-Mar-2017 12:47 Encounter Diagnosis: shelter (current) use of anticoagulants (Renamed from shelter current use of anticoagulant therapy) End: 01-Mar-2017 12:49 [facility] Office Visit On: 15-Dec-2016 7:49 Encounter Reason: Annual Medicare Exam - The patient had reviewed and updated the family history, medication/s, past medical history and social history. Yes the patient did have (30/30) a mini mental status exam done tod [...] patient does not have durable power of assistant county attorney or living will . The patient has noticed nothing from the geriatic depression scale. Other providers contributing to the patient's care are other: (dr crawford for eyes). Note for Annual Medicare Exam: Pt has WWE done by her FURNITURE SERVICER.Refuses flu shotRefuses pnumonia or LymeEncounter Diagnosis: Nonsmoker, BMI 21.0-21.9, adult, Encounter for annual general medical examination with abnormal findings in adult, shelter (current) use of anticoagulants (Renamed from shelter current use of anticoagulant therapy), Liver cyst [facility] Phone Encounter On: 09-Nov-2016 16:54 [facility] End: 09-Nov-2016 16:55 Phone Encounter On: 15-Oct-2016 12:40 Encounter Diagnosis: [place] eye End: 15-Oct-2016 12:42 [facility] [...] for chronic medical issues: Came back to establish. Esther did US and found enlarged bowel. Saw Dr. Arzola, wanted her to start on linzess. Saw surgeron Haskins CT of pelvis and abd with contrast, [...] patient does not have durable power of assistant county attorney. The p atient has noticed nothing from the geriatic depression scale. Other providers contributing to the patient's care are other: (ENT and dr crawford for eyes). Note for Annual Medicare Exam: Pt has WWE done by her FURNITURE SERVICER., [ADDITIONAL REASON] Follow up for chronic medical [...] cyst is gone- - still fluid in [place] and calcification- going to have D?C- [...] has been compliant with instructions. Sol End: 19-Sep-2014 6:56 t medication use: no [...] Follow up for chronic medical issues: bernard ghyusra stable bp is good- sheis off antioibitc [...] diet and still seeing lyme specialist in [place]- her weight comeing down and exercsing more [...] with Lyme dz symptoms- pt went to [place] and had lyme dz treatment-), has End: [...] chronic medical issues: seeing lyme specialist in [place] and on meds for this and [place]one[place]- [...] HEART DISEASE (V17.3) [facility] Payers MedicareCOLT/Chelo Bryant; a guarantor
--- OUTSIDE RECORDS SUMMARY | 2018-06-24 14:19 | XMS RPT_ITS | Continuity of Care Document ---
:1950 Author Organization [facility] Address [facility] [address] [place] [address] Phone Care Team Providers Name Role Phone Riddhiraul SAMSONSelam E Unavailable Dr. Meseret Santana MD Unavailable Paola Lara Unavailable Unavailable Aida Keen LPN Unavailable Unavailable Unavailable Unavailable Problems Name Dates Details Abortions/Miscarriages Comments: 1. Status: Active Annual Medicare Phyiscal WITHOUT abnormal findings (Renamed from Encounter for general adult medical examination without abnormal findings) (Z00.00, V70.9) Status: Active Anticoagulated on Coumadin (Z51.81, V58.83) Status: Active BMI 21.0-21.9, adult (Z68.21, V85.1) Status: Active Cough (R05, 786.2) Comments: [...] (Z82.49, V17.3) Status: Active Leukopenia (D72.819, 288.50) Status: Active Liver cyst (K76.89, 573.8) Comments: from CT on 08-19-15 recommend US in [address] Status: Active correction (current) use of anticoagulants (Renamed from correction current use of anticoagulant therapy) (Z79.01, V58.61) [...] days Quantity: 180 {Tablet} Refills: 3 Ordered:13-Sep-2017 Johnnie DAVIES, Selam Nitin DAVIES, Brenda Start : 13-Sep-2017 Active Calcium 1200 2755-5340 MG-UNIT Oral Tablet Chewable daily (3728-1404 MG-UNIT) Active Cinnamon 500 MG Oral Capsule 2caps qd (500 MG) Active Coumadin 1 MG Oral Tablet 1 (one) Tablet qd as directed for 90 days Quantity: 90 {Tablet} Refills: 3 Ordered:14-Sep-2017 Johnnie DAVIES, Selam Taveras CNP Brenda Start : 14-Sep-2017 Active Coumadin 5 MG Oral Tablet 1 (one) Tablet Tablet qd as directed for 0 days Quantity: 90 {Tablet} Refills: 3 Ordered:13-Dec-2017 Johnnie DAVIES, Selam Nitin DAVIES, Brenda Start : 13-Dec-2017 Active DICYCLOMINE HCL, 20MG (Oral Tablet) 1 tab Tablet q 4hrs, prn for 0 days Quantity: 30 {Tablet} Refills: 1 Ordered:18-Dec-2014 So Bailey Start : 08-Aug-2013 Active Lasix 20 MG Oral Tablet 1 tab Tablet qd, prn for swelling for 0 days Quantity: 30 {Tablet} Refills: 1 Ordered:17-Dec-2017 Johnnie GO CART MECHANIC, Selam Taveras GO CART MECHANIC, Brenda Start : 17-Dec-2017 Active Latanoprost 0.005 % [...] Quantity: 1 {Inhaler} Refills: 0 Ordered:02-Jun-2017 Long PROVIDER ENGAGEMENT EXECUTIVE, Aida L Start : 02-Jun-2017 Active PROBIOTIC (Oral Capsule) 2 (two) Capsule qd for 0 days Quantity: 60 {Capsule} Refills: 0 Ordered:21-Oct-2012 Fatimah Mccray MD Start : 14-Oct-2012 Active Tessalon Perles 100 MG Oral Capsule 1 (one) Capsule tid prn for cough for 0 days Quantity: 30 {Capsule} Refills: 1 Ordered:02-Jun-2017 Johnnie GO CART MECHANIC, Selam Taveras [facility], Selam Latif Start : 02-Jun-2017 Active VITAMIN [...] 500MG (Oral Tablet) 1 (one) Tablet bid d91phmr for 10 days Quantity: 20 {Tablet} Refills: [...] Refills: 0 Ordered:15-Dec-2016 Selam Blair CNP, CNP, Mary E Start : 14-Oct-2012 End : 15-Dec-2016 Inactive DOXYCYCLINE HYCLATE, 100MG (Oral Capsule) 1 Capsule bid for 0 days Quantity: 42 {Capsule} Refills: 0 Ordered:14-Oct-2012 [place] Pearce Start : 30-Aug-2012 End : 14-Oct-2012 Inactive Fosamax 70 MG Oral Tablet 1 tab Tablet once a week for 30 days Quantity: 4 {Tablet} Refills: 3 Ordered:15-Dec-2016 Selam Blair CNP, CNP, Mary E Start : 04-Jul-2012 End : 15-Dec-2016 Inactive Hydrocodone-Acetaminophen 5-325 MG Oral Tablet 1 (one) Tablet Tablet 1-2 every 6 hours prn for 0 days Quantity: 30 {Tablet} Refills: 0 Ordered:15-Dec-2016 Selam Blair CNP, CNP, Mary E Start : 05-Mar-2014 End : 15-Dec-2016 Inactive Comments:thirty Magnesium Oxide 400 MG Oral Tablet 4 Tablet qd for 30 days Quantity: 90 {Tablet} Refills: 0 Ordered:29-Jun-2016 Selam Blair CNP, CNP, Mary E Start : 29-Jun-2016 End : 29-Jul-2016 Inactive Mobic 15 MG Oral Tablet 1 (one) Tablet Tablet daily for 0 days Quantity: 14 {Tablet} Refills: 0 Ordered:15-Dec-2016 Johnnie DAVIES, Selam Taveras CNP, Selam Latif Start : 05-Mar-2014 End : 15-Dec-2016 Inactive MULTIVITAMIN (PO Tab) 1 (one) daily Inactive PredniSONE 10 MG Oral Tablet 1 (one) Tablet bid for 2 days Quantity: 4 {Tablet} Refills: 0 Ordered:02-Jun-2017 Johnnie DAVIES, Selam Taveras CNP, Selam Latif Start : 02-Jun-2017 End : [...] stable-continue present regimen, uses miralax prnSaw Dr Bautista Status: Resolved as of 15-Dec-2016 Need for prophylactic vaccination and inoculation against influenza (Z23, V04.81) Status: Inactive as of 05-Mar-2014 Osteopenia (M85.80, 733.90) Status: Inactive as of 11-Mar-2012 [place] eye (H10.029, 372.03) Status: Inactive as of [...] Status: Resolved as of 21-Oct-2012 Vaccine for gwqsfcbzkj-lzidvva-iqteayndi with poliomyelitis (Z23, V06.3) Status: Inactive as of 21-Oct-2012 Procedures Procedure Dates Details Appendectomy Completed D&C Completed Comments: Tonsillectomy Completed Tubal Ligation Completed Date Value Details 23-Dec-2017 Dexa Bone Density Study Result: Comments: See Note; NOTES: [facility] Imaging Services [address] [place] [address] Dexa Bone Density Study MR#: [id number] Acct: [id number] Name: YHAAIRA BRYANT Addi Rep #: [id number] : 1950 F 67 From: Cole Coronado MD PCP: Selam Blair NP Status: REG CLI Study: Dexa Bone Density Study Date of Exam: 12/23/17 Exam# [id number] Ordering Dr: Selam Blair STUDY: DUAL ENERGY [...] Cole Coronado MD at 8:50 EDT Tel [phone], Service support , CC: Selam Blair NP Hot Knife Foxing Cutter: Signed 07-Oct-2017 SCREENING MAMM (CAD), BILAT Result: Comments: See Note; NOTES: [facility] Imaging Services [address] [place] [address] SCREENING MAMM (CAD), BILAT MR#: [id number] Acct: [id number] Name: YAHAIRA BRYANT Rep #: [id number] : 1950 F 67 From: Cole Coronado MD PCP: Selam Blair NP Status: REG CLI Study: SCREENING MAMM (CAD), BILAT Date of Exam: 10/07/17 Exam# [id number] Ordering Dr: Aliza Santana MD MAMMOGRAPHY - [...] delay biopsy of a clinically suspicious abnormality. [id number] Electronically Signed: Cole Coronado MD at 11:23 EDT Tel [phone], Service support , CC: Selam Blair NP; Aliza Santana MD Hot Knife Foxing Cutter: Signed 23-Sep-2017 Downtime Report Result: Comments: See Note; NOTES: [facility] Medical Records Department [address] [place] [address] Downtime Report MR#: [id number] Acct: [id number] Name: YAHAIRA BRYANT Rep #: [id number] : 1950 67 From: Jered Kumar PCP: Selam Blair NP Status: REG CLI This patient was seen during an EMR downtime September 06, 2017 - September 13, 2017. This patient may have a combination of p aper and electronic documentation or all paper documentation. All documentation is viewable within the e-chart portion of [employer] for each patient visit. 16-Dec-2016 Liver Result: Comments: See Note; NOTES: [facility] Imaging Services [address] [place] [address] Liver MR#: [id number] Acct: [id number] Name: YAHAIRA BRYANT Rep #: [id number] : 1950 F 66 From: Jose Mcghee MD PCP: Selam Blair Status: REG CLI Study: Liver Date of Exam: 12/16/16 Exam# [id number] Ordering Dr: Selam lBair STUDY: ABDOMINAL ULTRASOUND - RIGHT UPPER QUADRANT [...] MD at 16:28 EDT , Service support [phone], CC: Selam Blair Hot Knife Foxing Cutter: Signed 21-Dec-2014 Aorta Result: Comments: See Note; NOTES: [facility] Imaging Services [address] [place] [address] Ultrasound Report MR#: [id number] Acct: [id number] Name: YAHAIRA BRYANT Rep #: : 1950 F 64 From: Cole Coronado MD PCP: Helen Barnes DO Status: REG CLI Study: Aorta Date of Exam: 12/21/14 Exam# [id number] Ordering Dr: Helen Barnes DO PROCEDURES: ULTRASOUN [...] Cole Coronado MD at 9:45 EDT Tel [phone], Service support [phone], CC: Helen Barnes DO Hot Knife Foxing Cutter: Signed 12-Dec-2014 Bilat Scrn Digital AND CAD Result: Comments: See Note; NOTES: [facility] Imaging Services [address] [place] [address] Breast Imaging Report MR#: [id number] Acct: [id number] Name: YAHAIRA BRYANT Rep # : [id number] : 1950 F 64 From: Gabino South MD PCP: Helen Barnes DO Status: REG CLI Study: Bilat Scrn Digital AND CAD Date of Exam: 12/12/14 Exam# [id number] Ordering Dr: Helen Barnes DO M AMMOGRAPHY [...] at 14:51 EDT Tel , Service support [phone], CC: Helen Barnes DO Hot Knife Foxing Cutter: Signed 12-Dec-2014 Bilat Scrn Digital AND CAD Result: Comments: See Note; NOTES: [facility] Imaging Services [address] [place] [address] Breast Imaging Report MR#: [id number] Acct: [id number] Name: YAHAIRA BRYANT Rep # : [id number] : 1950 F 64 From: Gabino South MD PCP: Helen Barnes DO Status: REG CLI Study: Bilat Scrn Digital AND CAD Date of Exam: 12/12/14 Exam# [id number] Ordering Dr: Helen Barnes DO A DDENDUM by Cole Coronado MD on 12/17/14 at 1003 ADDENDUM This is an addendum report for BI -RADS category. BI-RADS category 2. Electronically Signed: Cole Coronado MD at 10:03 EDT Tel [phone], Service support [phone], 12/17/14 1003 D ate cc: Helen Barnes DO * Signed MAMMOGRAPHY - BILATERAL SCREENING REASON FOR EXAM: Female, 64 years old. Routine annual screening examination. PERTINENT HISTORY: NO FM HX , RT MO LE MARKED TECHNIQUE: Digital examination. Mediolateral oblique (MLO) and craniocaudad (CC) views of both breasts were obtained. CAD: CAD was performed on this study. COMPARISON: October 11, 2013 and J 2012 FINDINGS: Breast Composition: The breasts are [...] at 14:51 EDT Tel , Service support [phone], CC: Helen Barnes DO Hot Knife Foxing Cutter: Signed 03-Dec-2014 Operative Report Result: Comments: See Note; NOTES: [facility] Medical Records Department [address] [place] [address] Operative Report MR#: [id number] Acct: [id number] Name: YAHAIRA BRYANT Rep #: [id number] : 1950 64 From: Aliza Santana MD PCP: Helen Barnes DO Status: [facility] DATE OF SERVICE: 11/26/2014 DATE OF [...] time. Aliza Santana MD T: NTS JOB: [id number] 12/03/14 1321 <Electronically signed by An jamison Santana MD> Date Aliza Santana MD Cosigner Signature (If Indicated): Date CC: Aleyda Santana MD; Helen Barnes DO Date Dictated: 11/29/14918 Date Transcribed: 11/29/14918 Hot Knife Foxing Cutter: Signed 26-Nov-2014 Discharge Instruction Result: Comments: See Note; NOTES: [facility] Medical Records Department [address] [place] [address] Instructions for Home/Discharge Instructions 11/26/14 1200 MR#: [id number] ct: [id number] Name: YAHAIRA BRYANT Rep #: [id number] : 1950 64 From: Aliza Santana MD PCP: Helen Barnes DO Status: REG [facility] Discharge Diet: No Restrictions Discharge Activity: Return [...] Operative Report Result: Comments: See Note; NOTES: [facility] Medical Records Department [address] [place] [address] Operative Report 11/26/14 1159 MR#: [id number] Acct: [id number] Name: SERGEIRina CERVANTESYAHAIRA R Rep #: [id number] : 1950 64 From: Aliza Santana MD PCP: Helen Barnes DO Status: REG SDC Y Location: [place] [address] Operative Report (Blank) Date of Procedure: 11/26/14 [...] MD; Helen Barnes DO Signed 05-Nov-2014 Spirometry (19731) Comments: good effort aand curve mild obstruction Result: 06-Jun-2014 Transvaginal Non- Result: Comments: See Note; NOTES: [facility] Imaging Services [address] [place] [address] Ultrasound Report MR#: [id number] Acct: [id number] Name: YAHAIRA BRYANT R Rep #: [id number] : 1950 F 63 From: Telly Cruz DO PCP: Helen Barnes DO Status: REG CLI Study: Transvaginal Non- Date of Exam: 06/06/14 Exam# [id number] Ordering Dr: Izzy Becerra STUDY: ULTRASOUND TRANSVAGINAL [...] DO at 13:34 EST , Service support [phone], CC: Helen Barnes DO; Izzy Becerra MD Hot Knife Foxing Cutter: Signed 06-Jun-2014 Pelvic (Non ) Result: Comments: See Note; NOTES: [facility] Imaging Services [address] [place] [address] Ultrasound Report MR#: [id number] Acct: [id number] Name: YAHAIRA BRYANT Rep #: [id number] : 1950 F 63 From: Telly Cruz DO PCP: Helen Barnes DO Status: REG CLI Study: Pelvic (Non ) Date of Exam: 06/06/14 Exam# [id number] Ordering Dr: Izzy Becerra MD STUDY: ULTRASOUND [...] DO at 13:34 EST , Service support [phone], CC: Helen Barnes DO; Izzy Becerra MD Hot Knife Foxing Cutter: Signed 11-Oct-2013 Bilat Scrn Digital & CAD Result: Comments: See Note; NOTES: [facility] Imaging Services [address] [place] [address] Breast Imaging Report MR#: [id number] Acct: [id number] Name: YAHAIRA BRYANT Rep #: [id number] : 1950 F 63 From: Bradly Lr MD PCP: Helen Barnes DO Status: REG CLI Exam# [id number] Ordering Dr: Helen Barnes DO MAMMOGRAPHY - [...] Bradly Lr MD at 10:37 EDT , [employer] e support [phone], CC: Helen Barnes DO Hot Knife Foxing Cutter: Signed Family History Unknown Family Member Name [...] smoker Vital Signs Date Test Result Details 05-Jgs-70495:25 Temperature 97.4 f Comments: Method: Temporal Pulse [...] kg/m2 Body Surface Area Calculated 1.5 m2 :26 Temperature 97.8 f Comments: Method: Temporal Pulse [...] Value Details :18 Prothrombin Time w/INR Comments: [facility] [address] [place], [place], [id number] INR 2.7 (Normal) PROTIME 28.9 s (Abnormal) Range: 11.7-14.9 :58 Bilirubin, Direct Comments: [facility] [address] [place], [address] D BILI 0.18 mg/dL (Normal) Range: 0.00-0.30 :58 CBC W/Diff, Automated Comments: [facility] [address] [place], [address] Absolute Lymph 1.49 {X10_3/ul} (Normal) Range: 0.83-4.51 [...] (Abnormal) Range: 4.4-11.0 :58 Total Bilirubin Comments: [facility] [address] [place], [place], [address] T BILI 0.80 mg/dL (Normal) Range: 0.20-1.00 7-Koa-259941:14 Prothrombin Time w/INR Comments: [facility] [address] [place], [place], [address] INR 2.6 (Normal) PROTIME 27.6 s (Abnormal) Range: 11.7-14.9 65-Jvq-950568:01 CBC W/Diff, Automated Comments: [facility] [address] [place], [place], [id number] Absolute Lymph 1.26 {X10_3/ul} (Normal) Range: 0.83-4.51 [...] 4.2-5.4 WBC 3.3 K/mm3 (Abnormal) Range: 4.4-11.0 80-Jca-254675:01 Comprehensive Metabolic Profil Comments: [facility] [address] [place], [place], [id number] GAP 9 (Normal) Range: 5-15 CO2 28.0 [...] Comments: Please note revised GLUCOSE reference range omajsacse08/02/2018. 53-Dre-848125:15 Prothrombin Time w/INR Comments: [facility] [address] [place], [address] INR 3.0 (Normal) PROTIME 31.3 s (Abnormal) Range: 11.7-14.9 :26 Prothrombin Time w/INR Comments: [facility] [address] [place], [address] INR 2.8 (Normal) PROTIME 29.3 s (Abnormal) Range: 11.7-14.9 34-Fzz-792786:50 Prothrombin Time w/INR Comments: [facility] [address] [place], [address] INR 2.7 (Normal) PROTIME 28.7 s (Abnormal) Range: 11.7-14.9 :35 Prothrombin Time w/INR Comments: [facility] [address] [place], [address] INR 2.9 (Normal) PROTIME 30.2 s (Abnormal) Range: 11.7-14.9 :44 Prothrombin Time w/INR Comments: [facility] [address] [place], [address] INR 2.9 (Normal) PROTIME 30.1 s (Abnormal) Range: 11.7-14.9 :55 Prothrombin Time w/INR Comments: [facility] [address] [place], [address] INR 2.8 (Normal) PROTIME 29.4 s (Abnormal) Range: 11.7-14.9 :10 Prothrombin Time w/INR Comments: [facility] [address] [place], [address] INR 2.4 (Normal) PROTIME 26.2 s (Abnormal) Range: 11.7-14.9 :09 Prothrombin Time w/INR Comments: [facility] [address] [place], [address] INR 1.1 (Normal) PROTIME 14.0 s (Normal) Range: 11.7-14.9 :29 Prothrombin Time w/INR Comments: RESULT(S) PREVIOUSLY REPORTED ON MANUAL REQUISITION DURINGDOWNTIME.[facility] [address] [place], [address] INR 1.3 (Normal) PROTIME 16.4 s (Abnormal) Range: 11.7-14.9 :30 Prothrombin Time w/INR Comments: [facility] [address] [place], [address] INR 2.0 (Normal) PROTIME 22.9 s (Abnormal) Range: 11.7-14.9 :01 Prothrombin Time w/INR Comments: [facility] [address] [place], [address] INR 1.5 (Normal) PROTIME 18.0 s (Abnormal) Range: 11.7-14.9 :46 Prothrombin Time w/INR Comments: [facility] [address] [place], [address] INR 1.9 (Normal) PROTIME 22.2 s (Abnormal) Range: 11.7-14.9 89-Smx-697591:25 Prothrombin Time w/INR Comments: [facility] [address] [place], [address] INR 1.9 (Normal) PROTIME 22.0 s (Abnormal) Range: 11.7-14.9 :59 Prothrombin Time w/INR Comments: [facility] [address] [place], [address] INR 2.0 (Normal) PROTIME 22.8 s (Abnormal) Range: 11.7-14.9 :58 Prothrombin Time w/INR Comments: [facility] [address] [place], [address] INR 1.8 (Normal) PROTIME 20.7 s (Abnormal) Range: 11.7-14.9 41-Yqk-862610:31 Prothrombin Time w/INR Comments: [facility] [address] [place], [address] INR 1.7 (Normal) PROTIME 19.9 s (Abnormal) Range: 11.7-14.9 26-Kee-617492:20 Prothrombin Time w/INR Comments: [facility] [address] [place], [address] INR 2.6 (Normal) PROTIME 27.9 s (Abnormal) Range: 11.7-14.9 :39 Prothrombin Time w/INR Comments: [facility] [address] [place], [place], [phone] INR 2.9 (Normal) PROTIME 30.5 s (Abnormal) Range: 11.7-14.9 36-Amu-834473:03 Rapid Flu (55488 x 2) Influenza A Ag neg (Normal) 72-Qrp-402337:00 Prothrombin Time w/INR Comments: [facility] [address] [place], [place], [phone] ; See pt message INR 3.7 (Abnormal) Comments: CRITICAL VALUE VERIFIED. CALLED TO KOLTON 05/31/17 1130 Nii Lind.RESULTS READ BACK BY SAME. PROTIME 35.0 s (Abnormal) Range: 11.7-14.9 :21 Prothrombin Time w/INR Comments: [facility] [address] [place], [address] INR 4.7 (Abnormal) Comments: CRITICAL VALUE VERIFIED. CALLED TO GEOVANNI AT [facility]05/24/17 0956 Violeta Noble.RESULTS READ BACK BY SAME . PROTIME 42.4 s (Abnormal) Range: 11.7-14.9 26-Udl-312815:27 Prothrombin Time w/INR Comments: [facility] [address] [place], [address] INR 1.9 (Normal) PROTIME 20.9 s (Abnormal) Range: 11.7-14.9 :42 Prothrombin Time w/INR Comments: [facility] [address] [place], [address] INR 4.3 (Abnormal) Comments: CRITICAL VALUE VERIFIED. CALLED TO 05/10/17 0830 Josue Velazquez.RESULTS READ BACK BY . PROTIME 39.8 s (Abnormal) Range: 11.7-14.9 :18 Prothrombin Time w/INR Comments: [facility] [address] [place], [address] INR 2.4 (Normal) PROTIME 24.8 s (Abnormal) Range: 11.7-14.9 :18 Prothrombin Time w/INR Comments: [facility] [address] [place], [address] INR 2.4 (Normal) PROTIME 25.2 s (Abnormal) Range: 11.7-14.9 94-Olb-692452:00 Prothrombin Time w/INR Comments: [facility] [address] [place], [address] INR 2.5 (Normal) PROTIME 25.8 s (Abnormal) Range: 11.7-14.9 :32 Prothrombin Time w/INR Comments: [facility] [address] [place], [address] INR 2.1 (Normal) PROTIME 22.7 s (Abnormal) Range: 11.7-14.9 :23 Prothrombin Time w/INR Comments: [facility] [address] [place], [address] INR 2.3 (Normal) PROTIME 24.6 s (Abnormal) Range: 11.7-14.9 :14 Prothrombin Time w/INR Comments: [facility] [address] [place], [address] INR 2.0 (Normal) PROTIME 21.9 s (Abnormal) Range: 11.7-14.9 3-Vgs-943760:18 Prothrombin Time w/INR Comments: [facility] [address] [place], [address] INR 2.5 (Normal) PROTIME 25.6 s (Abnormal) Range: 11.7-14.9 :39 Prothrombin Time w/INR Comments: [facility] [address] [place], [address] INR 2.1 (Normal) PROTIME 22.7 s (Abnormal) Range: 11.7-14.9 :40 Prothrombin Time w/INR Comments: [facility] [address] [place], [address] INR 2.6 (Normal) PROTIME 26.8 s (Abnormal) Range: 11.7-14.9 :40 Prothrombin Time w/INR Comments: [facility] [address] [place], [address] INR 2.2 (Normal) PROTIME 23.8 s (Abnormal) Range: 11.7-14.9 3-Krc-309044:21 Prothrombin Time w/INR Comments: [facility] [address] [place], [address] INR 1.8 (Normal) PROTIME 20.1 s (Abnormal) Range: 11.7-14.9 :30 Prothrombin Time w/INR Comments: [facility] [address] [place], [address] INR 3.0 (Normal) PROTIME 30.2 s (Abnormal) Range: 11.7-14.9 :45 Prothrombin Time w/INR Comments: [facility] [address] [place], [address] INR 2.9 (Normal) PROTIME 29.1 s (Abnormal) Range: 11.7-14.9 :52 Prothrombin Time w/INR Comments: [facility] [address] [place], [address] INR 1.4 (Normal) PROTIME 17.0 s (Abnormal) Range: 11.7-14.9 :27 Prothrombin Time w/INR Comments: [facility] [address] [place], [address] INR 2.0 (Normal) PROTIME 21.7 s (Abnormal) Range: 11.7-14.9 :21 Prothrombin Time w/INR Comments: [facility] [address] [place], [address] INR 2.3 (Normal) PROTIME 24.1 s (Abnormal) Range: 11.7-14.9 :43 Prothrombin Time w/INR Comments: [facility] [address] [place], [address] INR 2.9 (Normal) PROTIME 29.1 s (Abnormal) Range: 11.7-14.9 :47 Prothrombin Time w/INR Comments: [facility] [address] [place], [address] INR 2.3 (Normal) PROTIME 24.0 s (Abnormal) Range: 11.7-14.9 :25 CBC W/Diff, Automated Comments: [facility] [address] [place], [phone] ; see other message Absolute Lymph 2.07 [...] Range: 4.4-11.0 07-Jul-20167:25 Comprehensive Metabolic Profil Comments: [facility] [address] [place], [address] GAP 3 (Abnormal) Range: 5-15 CO2 28.0 [...] Range: 70-110 :25 Prothrombin Time w/INR Comments: [facility] [address] [place], [address] INR 3.5 (Abnormal) Comments: CRITICAL VALUE VERIFIED. CALLED TO PATRICE Longoria07/07/16 [facility] Radha Calderon.RESULTS READ BACK BY SAME . PROTIME 33.9 s (Abnormal) Range: 11.7-14.9 :25 Thyroid Stim Hormone (TSH) Comments: [facility] [address] [place], [address] TSH 3.25 {uIU/mL} (Normal) Range: 0.358-3.74 :47 Prothrombin Time w/INR Comments: [facility] [address] [place], [address] INR 2.6 (Normal) Comments: ADDENDA: handled by Dr. Phillips PROTIME 27.5 s (Abnormal) Range: 11.7-14.9 :32 Prothrombin Time w/INR Comments: [facility] [address] [place], [address] INR 2.3 (Normal) PROTIME 25.5 s (Abnormal) Range: 11.7-14.9 :15 Prothrombin Time w/INR Comments: [facility] [address] [place], [address] INR 2.6 (Normal) PROTIME 27.7 s (Abnormal) Range: 11.7-14.9 :29 Prothrombin Time w/INR Comments: [facility] [id number] [place], [address] INR 1.3 (Normal) PROTIME 16.7 s (Abnormal) Range: 11.7-14.9 :19 Prothrombin Time w/INR Comments: [facility] [id number] [place], [address] INR 2.1 (Normal) PROTIME 23.3 s (Abnormal) Range: 11.7-14.9 :14 Prothrombin Time w/INR Comments: [facility] [id number] [place], [address] INR 2.0 (Normal) PROTIME 22.5 s (Abnormal) Range: 11.7-14.9 :21 Prothrombin Time w/INR Comments: [facility] [address] [place], [address] INR 2.7 (Normal) PROTIME 28.5 s (Abnormal) Range: 11.7-14.9 :30 Prothrombin Time w/INR Comments: [facility] [address] [place], [address] INR 2.4 (Normal) PROTIME 25.9 s (Abnormal) Range: 11.7-14.9 :41 Prothrombin Time w/INR Comments: [facility] [id number] [place], [address] INR 2.5 (Normal) PROTIME 26.9 s (Abnormal) Range: 11.7-14.9 :09 Prothrombin Time w/INR Comments: [place] [facility] [address] [place], [address] INR 3.4 (Normal) PROTIME 34.4 s (Abnormal) Range: 11.7-14.9 :11 Prothrombin Time w/INR Comments: [facility] [address] [place], [address] INR 2.5 (Normal) PROTIME 26.6 s (Abnormal) Range: 11.7-14.9 :33 Prothrombin Time w/INR Comments: [facility] [address] [place], [address] INR 1.5 (Normal) PROTIME 18.1 s (Abnormal) Range: 11.7-14.9 :12 Prothrombin Time w/INR Comments: [facility] [address] [place], [address] INR 1.1 (Normal) PROTIME 14.4 s (Normal) Range: 11.7-14.9 :51 Prothrombin Time w/INR Comments: [place] [address] [place], [address] INR 3.6 (Abnormal) Comments: CRITICAL VALUE REPEATED AND VERIFIED. CALLED TO Maycol DAVISON02/25/15 1001 Elsie Longoria.RESULTS READ BACK BY MARGUERITE . PROTIME 35.3 s (Abnormal) Range: 11.7-14.9 :23 Prothrombin Time w/INR Comments: [place] [address] [place], [address] INR 3.3 (Normal) PROTIME 33.3 s (Abnormal) Range: 11.7-14.9 :13 Prothrombin Time w/INR Comments: [facility] [address] [place], [address] INR 2.4 (Normal) PROTIME 26.5 s (Abnormal) Range: 11.7-14.9 :32 Prothrombin Time w/INR Comments: [place] [address] [place], [address] INR 1.4 (Normal) PROTIME 17.8 s (Abnormal) Range: 11.7-14.9 :09 Prothrombin Time w/INR Comments: [facility] [address] [place], [address] INR 1.2 (Normal) PROTIME 15.9 s (Abnormal) Range: 11.7-14.9 :12 Prothrombin Time w/INR Comments: [facility] [address] [place], [address] INR 2.4 (Normal) PROTIME 26.4 s (Abnormal) Range: 11.7-14.9 :20 Prothrombin Time w/INR Comments: [facility] [address] [place], [address] INR 2.2 (Normal) PROTIME 24.5 s (Abnormal) Range: 11.7-14.9 :11 Prothrombin Time w/INR Comments: Test performed at:[facility] [address] [place] [address] INR 2.2 (Normal) PROTIME 24.1 s (Abnormal) Range: 11.7-14.9 :29 Prothrombin Time w/INR Comments: Test performed at:[facility] [address] [place] [address] INR 3.7 (Abnormal) Comments: CRITICAL VALUE REPEATED AND VERIFIED. CALLED TO KIKE WOMACK12/21/[address] [facility].RESULTS READ BACK BY SAME . PROTIME 36.5 s (Abnormal) Range: 11.7-14.9 :25 Prothrombin Time w/INR Comments: Test performed at:[facility] [address] [place] [address] INR 2.5 (Normal) PROTIME 27.1 s (Abnormal) Range: 11.7-14.9 :23 Miscellaneous Lab Procedure Comments: Comments: [id number] PTH PLUS CALCIUM LAV AND RED RFTest(s) Ordered: [id number] PTH PLUS CALCIUM LAV AND RED RFTest performed at:[facility] [address] [place] [address] [facility] Comments: TEST RESULT LIMITSCa+PTH Intact Calcium, Serum [...] - 65 < 8.6 TESTING PERFORMED AT [facility]. ORIGINAL REPORT ON FILE IN LAB CONTAINS AD DITIONAL TEST SITE INFORMATION. :23 Prothrombin Time w/INR Comments: Test performed at:[facility] [address] [place] [address] INR 4.0 (Abnormal) Comments: CRITICAL VALUE REPEATED AND VERIFIED. CALLED TO SBHJAP84/11/15 0933 Fletcher Foote.RESULTS READ BACK BY SAME . PROTIME 38.3 s (Abnormal) Range: 11.7-14.9 16-Mfd-39705:23 Vitamin D 1,25-Dihydroxy Comments: Test performed at:[facility] [address] [place] [address] VITD 1,25 76244 55.5 pg/mL (Normal) Range: 19.9-79.3 Comments: Performed at: [address] [id number] Director: Juan Ontiveros MD, Phone: [phone] :23 Vitamin D,25 Hydroxy Comments: Test performed at:[facility] [address] [place] [address] Vitamin D 25-OH 70.3 ng/mL (Normal) Comments: Vitamin D 25(OH) Status Range Deficiency <20 ng/mL (50nmol/L) Insuffciency 20 - 30 ng/mL (50 - 75 nmol/L) Sufficiency 30 - 100 ng/mL (75 - 250 nmol/L) Toxicity >100 ng/mL (>250 nmol/L) :04 Prothrombin Time w/INR Comments: Test performed at:[facility] [address] [place] [address] INR 2.1 (Normal) PROTIME 23.5 s (Abnormal) Range: 11.7-14.9 :12 Prothrombin Time w/INR Comments: Test performed at:[facility] [address] [place] [address] INR 1.6 (Normal) PROTIME 18.9 s (Abnormal) Range: 11.7-14.9 :10 Prothrombin Time w/INR Comments: Test performed at:[facility] [address] [place] [address] INR 1.1 (Normal) PROTIME 14.1 s (Normal) Range: 11.7-14.9 44-Mxz-[id number]: ENDOMETRIAL BX/CURETTINGS See Note (Normal) Comments: Test performed at:[facility] [address]cke[address] [place] [address] 49 Comments: Patient: YAHAIRA BRYANT : 1950 (64/F) Acct Num: [id number] Phys: Aliza Santana MD Unit Num: [id number] Loc: [facility] [place] Specimen: [id number] Received: 11/26/14 - 1217 Spec Type: EN DOM BX/C TISSUES TISSUES: GROSS DESCRIPTION Received is one container labeled with the patient name and designated endometrial curettings. The specimen consists of scant fragments of sahni mucoid tissue measuring less than 0.1 cm in greatest dimension. It is doubtful that the specimen will survive processing. The specimen is totally submitted matias owens. / NICOLÁS:papito 11/26/14 TC: 5 CPT: 88696 HEADER OPERATION: Hysteroscopy, diagnostic, D AND C PRE-OP DIAGNOSIS: Postmenopausal bleeding TISSUE SUBMITTED: Endometrial curettings MICROSCOPIC DESCRIPTION Slides are reviewed. MICROSCOPIC DIAGNOSIS Endometrial curettings: Scant strips of benign endometrial epithelium and superficial fragment of benign endometrial tissue, consistent with atrophic endometri um. Fragments of benign endocervical epithelium. SJ:papito 11/27/14 Signed Jeffy Suazo 11/27/14 <signature on file> 96-Iot-231387:39 INR Fingerstick Comments: Test performed at:[facility] [address] [place] [address] INR ISTAT 1.10 (Normal) Comments: Critical Value > 3.5; ADDENDA: this is for pre-op, will resume tomorrow and recheck it in 1 week. 59-Qkf-750763:39 Prothrombin Time Fingerstick Comments: Test performed at:[facility] [address] [place] [address] PROTIME ISTAT 13.2 {SEC} (Normal) Range: 11.9-14.4 Comments: Reference Range 11.9 - 14.4 :41 Partial Thromboplast Time Comments: Test performed at:[facility] [address] [place] [address] PTT 40.9 s (Abnormal) Range: 24.1-36.2 :41 Prothrombin Time w/INR Comments: Test performed at:[facility] [address] [place] [address] INR 2.6 (Normal) PROTIME 27.4 s (Abnormal) Range: 11.7-14.9 16-Xua-454250:41 Type AND Screen Comments: Surgery Date: 11/26/14Hx of Preganancy in last 3 Months NoEver experience any problems with transfusion(s)? NHx of Transfusion in last 3 Months NReason for Type AND Screen/Red Cells: SURGERYSURGI ADELSO PROCEDURE: .Test performed at:[facility] [address] [place] [address] Antibody Screen NEGATIVE (Normal) BLOOD TYPE GEL A POSITIVE (Normal) 65-Buj-58775:09 CBC W/Diff, Automated Comments: Test performed at:[facility] [address] [place] [address] Absolute Lymph 2.07 {X10_3/ul} (Normal) [...] :09 Comprehensive Metabolic Profil Comments: Test performed at:[facility] [address] [place] [address] GAP 6 (Normal) Range: 5-15 CO2 29.0 [...] Comments: Please note revised CREATININE reference range /22/2015. BUN 19 mg/dL (Abnormal) Range: 7-18 GLU 75 mg/dL (Normal) Range: 70-110 :09 Prothrombin Time w/INR Comments: Test performed at:[facility] [address] [place] [address] INR 2.4 (Normal) PROTIME 25.8 s (Abnormal) Range: 11.7-14.9 :13 Prothrombin Time w/INR Comments: Test performed at:[facility] [address] [place] [address] INR 1.8 (Normal) PROTIME 21.2 s (Abnormal) Range: 11.7-14.9 :06 Prothrombin Time w/INR Comments: Test performed at:[facility] [address] [place] [id number] INR 2.2 (Normal) PROTIME 24.4 s (Abnormal) Range: 11.7-14.9 :50 Prothrombin Time w/INR Comments: Test performed at:[facility] [address]upzx[address] [place] [address] INR 1.7 (Normal) PROTIME 20.3 s (Abnormal) Range: 11.7-14.9 00-Gbh-090690:16 Estrogen, Total, Serum Comments: Comments: TSHHas Patient had Radioactive Injection for X-ray?: NTest performed at:[facility] [address] [place] [address] ESTROGEN 4549 54 pg/mL (Normal) Comments: Prepubertal <40 Female Cycle: 1-10 Days 61 - 394 11-20 Days 122 - 437 21-30 Days 156 - 350 Post-Menopausal <40 HMG Treatment for Ovulation Induction: 400 - 800Performed at: [facility] [address] [id number] Director: Juan Ontiveros MD, Phone: [phone] 23-Fta-640428:16 Free T3 Comments: Comments: TSHTest performed at:[facility] [address] [place] [id number] FREE T3 2.6 pg/mL (Normal) Range: 2.18-3.98 61-Yln-391382:16 Hemoglobin A1c Comments: Test performed at:[facility] [address]qum[address] [place] [address] HGB A1C 5.0 % (Normal) Range: 4.2-6.3 10-Onx-958832:16 Progesterone Level Comments: Test performed at:[facility] [address] [place] [address] Progesterone 0.48 ng/mL (Normal) Comments: Progesterone Reference Table: UNITS Female: Follicular 0.15 - 1.40 ng/mL Luteal 3.34 - 25.56 ng/mL Mid-luteal 4.44 - 28.03 ng/mL Postmenopausal 0.0 - 0.73 ng/mL : 1st Trimester 11.22 - 90.00 ng /mL 2nd Trimester 25.55 - 89.40 ng/mL 3rd Trimester 48.40 -422.50 ng/mL 42-Uva-604786:16 T4 Free Direct Comments: Comments: TSHTest performed at:[facility] [address] [place] [address] T4 FREE DIRECT 1.16 ng/dL (Normal) Range: 0.76-1.46 77-Vmp-682698:16 Testosterone, Serum Total Comments: Test performed at:[facility] Fcajwnfron6352 [facility] [place] [address] ; ordered by Dr. Santana Testosterone 35 ng/dL (Normal) Range: 14-76 50-Xqa-804090:16 Thyroid Stim Hormone (TSH) Comments: Comments: TSHTest performed at:[facility] Bjjlwetjev[address]656 [facility] [place] [address] TSH 1.53 {uIU/mL} (Normal) Range: 0.358-3.74 :11 Prothrombin Time w/INR Comments: Test performed at:[facility] [address] [place] [address] INR 1.8 (Normal) PROTIME 20.9 s (Abnormal) Range: 11.7-14.9 :27 Prothrombin Time w/INR Comments: Test performed at:[facility] [address] [address] INR 2.2 (Normal) PROTIME 24.8 s (Abnormal) Range: 11.7-14.9 :08 Prothrombin Time w/INR Comments: Test performed at:[facility] T[address] [facility] [place] [address] INR 4.8 (Abnormal) Comments: CRITICAL VALUE REPEATED AND VERIFIED. CALLED TO RADHA WOMACK10/01/14 0855 Nii Lind.RESULTS READ BACK BY DAVID. PROTIME 44.0 s (Abnormal) Range: 11.7-14.9 :14 Prothrombin Time w/INR Comments: Test performed at:[facility] [address] [place] [address] INR 2.6 (Normal) PROTIME 27.9 s (Abnormal) Range: 11.7-14.9 :16 Prothrombin Time w/INR Comments: Test performed at:[facility] [address] [place] [address] INR 5.0 (Abnormal) Comments: CRITICAL VALUE REPEATED AND VERIFIED. CALLED TO Tami DAVISON09/21/14 0809 Elsie Longoria.RESULTS READ BACK BY CONNER . PROTIME 45.5 s (Abnormal) Range: 11.7-14.9 :10 Prothrombin Time w/INR Comments: Test performed at:[facility] [address] [place] [address] INR 3.2 (Normal) PROTIME 32.8 s (Abnormal) Range: 11.7-14.9 :24 Miscellaneous Lab Procedure Comments: Comments: [id number] HHV-6 IGM,SST,REFRIGERATETest(s) Ordered: [id number] HHV-6 IGM,SST,REFRIGERATETest performed at:[facility] [address] [facility] [place] [address] [facility] Comments: TEST RESULT UNITS REFERENCE INTERVALHuman Herpes Virus Type 6 IgM <1:10 Neg:<1:10Results for this test are for research purposes only by LAB (Normal) theassay's dermatology physician assistant. The performance characteristics ofthis product have not been established. Results should notbe used as a diagnostic procedure without confirmation ofthe diagnosis by another med TEST ically established diagnosticproduct or procedure. TESTING PERFORMED AT [facility]. ORIGINAL REPORT ON FILE IN LAB CONTAINS ADDITIONAL TEST SITE IN FORMATION. :18 ANTINUCLEAR ANTIBODIES DIRECT Comments: Test performed at:[facility] [address] [place] [address] YURIY-DIRECT Negative (Normal) Comments: Performed at: [address] [id number] Director: Narendra Covarrubias PhD, Phone: [phone] :18 CMV Acute Antibody IgM Comments: Test performed at:[address] [place] [address] CMVIgM AB < 30.0 AU/mL (Normal) Range: 0.0-29.9 Comments: Negative <30.0 Equivocal 30.0 - 34.9 Positive >34.9A positive result is generally indicative of acuteinfection, react ivation or persistent IgM production.Performed at: [address] [id number] Director: Narendra Covarrubias PhD, Phone: [phone] at: [facility] [address] [place], [place] [id number] Director: Juan Ontiveros MD, Phone: [phone] at: [address] [place] [address] YZU9013 [place], [place] [id number] Director: Bill Tao PhD, Phone: [phone] :18 CMV Antibody IgG Comments: Test performed at:[address] [place] [address] CMV AB IgG > 10.00 U/mL (Abnormal) Range: 0.00-0.59 Comments: Negative <0.60 Equivocal 0.60 - 0.69 Positive >0.69 :18 EBV Acute Prof IgG / IgM Comments: Test performed at:[facility] Y[address]fd[address]cepk4054 [facility] [place] [address] INTERPRETATION Comment (Normal) Comments: EBV Interpretation ChartInterpretation EBV-IgM EA(D)-IgG VCA-IgG EBNA-IgGEBV Seronegative - - - -Early Phase + - - -Acute Primary + +or- + -InfectionConvalescence/Past - +or- + +InfectionReactivated +or- + + +Infection + Antibody Present - Antibody Absent EB-NAg [id number] 71.5 U/mL (Abnormal) Range: 0.0-17.9 Comments: Negative <18.0 Equivocal 18.0 - 21.9 Positive >21.9 EB-VCA [id number] > 600.0 U/mL (Abnormal) Range: 0.0-17.9 Comments: Negative <18.0 Equivocal 18.0 - 21.9 Positive >21.9 EB-EA IgG 69247 21.1 U/mL (Abnormal) Range: 0.0-8.9 Comments: Hepatitis A, Hepatitis C and HIV antibodies may cross-reactwith this assay. Negative < 9.0 Equivocal 9.0 - 10.9 Positive >10.9 EB-VCA [id number] < 36.0 U/mL (Normal) Range: 0.0-35.9 Comments: Negative <36.0 Equivocal 36.0 - 43.9 Positive >43.9 :18 Ferritin Comments: Test performed at:[facility] [address] [place] [address] FERRITIN 28 ng/mL (Normal) Range: 8-252 :18 HLA B27 Negative (Normal) Comments: Test performed at:[facility] Orpuplmfoi8136 [facility] [place] [address] Comments: HLA-B*27 NegativeA Lab CLIA ID Number [id number] test was performed using PCR (Polymerase ChainReaction)/SSOP (Sequence Specific Oligonucleotide Probes)technique. SBT (Sequence Based Typing) and/ or SSP(Sequence Specific Primers) may be used as supplementalmethods when necessary. Please contact HLA CustomerService at if you have any questions. Director of HLA Laboratory Dr Bill Tao, PhD :18 Homocysteine Comments: Test performed at:[facility] [address] [place] [address] HOMOCYSTEINE 6.7 umol/L (Normal) Range: 3.2-10.7 :18 IgG Subclasses Comments: Test performed at:[facility] [address] [place] [address] IgG, SUBCLASS 4 1 mg/dL (Normal) Range: 1-291 Comments: Results verified by repeat testing IgG, SUBCLASS 3 52 mg/dL (Normal) Range: 41-129 IgG, SUBCLASS 2 145 mg/dL (Normal) Range: 117-747 IgG, SUBCLASS 1 264 mg/dL (Abnormal) Range: 422-1292 IGG, QUANT 520 mg/dL (Abnormal) Range: 700-1600 :18 Miscellaneous Lab Procedure Comments: Comments: [id number] HHV-6 IGG,SST,REFRIGERATETest(s) Ordered: [id number] HHV-6 IGG,SST,REFRIGERATEList Test(s) Ordered by Physician: IGA SUBCLASSES, #[id number], SERUM,RM TEMP, 2 MLTest performed at:[facility] [address] [place] [address] MISC Comments: TEST RESULT UNITS REFERENCE INTERVALHHV 6 IgG Antibodies 2.42 High index Negative <0.76 Equivocal 0.76 - 0.99 LAB (Normal) Positive >0.99Results for this test are for research purposesonly by the assay's dermatology physician assistant. The performancecharacteristics of this product have not beenestablishe TEST d. Results should not be used as adiagnostic procedure without confirmation of thediagnosis by another medically established diagnosticproduct or procedure. TESTING PERFORMED AT [facility]. ORIGINAL REPORT ON FILE IN LAB CONTAINS ADDITIONAL TEST SITE INFORMATION. :18 Miscellaneous Lab Procedure Comments: Comments: [id number] HLA-DR4,SST,REFRIGERATETest(s) Ordered: [id number] HLA-DR4,SST,REFRIGERATETest performed at:[facility] [address] [place] [address] [facility] Comments: TEST RESULT UNITS REFERENCE INTERVALHLA DRB1 (IR) DRB1 DRB1*07:NIRAV DRB1 DRB1*- Code Translation: NIRAV 07:01/07:09/07:10N/07:11/07:14/07:22 LAB (Normal) /07:24 /07:25/07:26N/07:27/07:28/07:29HLA allele interpretation for all loci based on IMGT/HLAdatabase version 3.15[facility] Lab CLIA ID Number [id number] TEST [facility] ORIGINAL REPORT ON FILE IN LAB CONTAINS ADDITIONAL TEST SITE INFORMATION. HLA Methodology:HLA result s were obtained using sequence based typing (SBT),sequence specific oligonucleotide probes (SSOP), and/orsequence specific primers (SSP) as needed to obtain therequired resolution. Please contact HLA [facility] gamigo [phone] if you have any questions.Director of HLA LaboratoryDr Bill Tao, PhD :18 Miscellaneous Lab Procedure 2 Comments: Comments: [id number] HHV- 6 IGG,SST,REFRIGERATETest(s) Ordered: [id number] HHV-6 IGG,SST,REFRIGERATEList Test(s) Ordered by Physician: IGA SUBCLASSES, #[id number], SERUM,RM TEMP, 2 MLTest performed at:[facility] [address] [place] [address] [facility] Comments: TEST RESULT UNITS REFERENCE INTERVALIgA, Subclasses (1-2) Immunoglobulin A, Qn, Serum 161 mg/dL 91 - 414 IgA, Subclass 1 132.0 mg/dL LAB (Normal) 73.2 - 301.2 IgA, Subclass 2 6.2 Low mg/dL 13.4 - 97.9 TESTING PERFORMED AT [facility]. ORIGINAL REPORT ON FILE IN LAB CONTAINS MANFRED TEST TIONAL TEST SITE INFORMATION. 2 :18 Prothrombin Time w/INR Comments: Test performed at:[facility] [address] [place] [address] INR 1.9 (Normal) PROTIME 22.3 s (Abnormal) Range: 11.7-14.9 :18 Vitamin B12 664 pg/mL (Normal) Comments: Test performed at:[facility] [address] [place] [id number] Range: 211-911 :18 Vitamin D,25 Hydroxy Comments: Test performed at:[facility] [address] [place] [address] [place] [address] Vitamin D 25-OH 58.8 ng/mL (Normal) Comments: Vitamin D 25(OH) Status Range Deficiency <20 ng/mL (50nmol/L) Insuffciency 20 - 30 ng/mL (50 - 75 nmol/L) Sufficiency 30 - 100 ng/mL (75 - 250 nmol/L) Toxicity >100 ng/mL (>250 nmol/L) :13 CBC W/Diff, Automated Comments: Test performed at:[facility] Caorwpwwoc3344 [facility] [place] [address] Absolute Lymph 2.08 {X10_3/ul} (Normal) Range: [...] :13 Comprehensive Metabolic Profil Comments: Test performed at:[facility] Rlqjqdliib3633 [facility] [place] [address] GAP 7 (Normal) Range: 5-15 [...] 70-110 :13 Lipid Profile Comments: Test performed at:[facility] [address] [place], [place] [address](557) VLDL 9 mg/dL (Normal) Range: 5-40 LDL [...] :13 Prothrombin Time w/INR Comments: Test performed at:[facility] [address] [place] [address] INR 1.5 (Normal) PROTIME 18.4 s (Abnormal) Range: 11.7-14.9 :17 INR Fingerstick Comments: Test performed at:[facility] [address] [place] [address] INR ISTAT 1.50 (Normal) Comments: Critical Value > 3.5 :17 Prothrombin Time Fingerstick Comments: Test performed at:[facility] [address] [place] [address] PROTIME ISTAT 17.6 {SEC} (Abnormal) Range: 11.9-14.4 Comments: Reference Range 11.9 - 14.4 :09 INR Fingerstick Comments: Test performed at:[facility] [address] [place] [address] INR ISTAT 1.40 (Normal) Comments: Critical Value > 3.5 :09 Prothrombin Time Fingerstick Comments: Test performed at:[facility] [address] [place] [address] PROTIME ISTAT 17.1 {SEC} (Abnormal) Range: 11.9-14.4 Comments: Reference Range 11.9 - 14.4 :09 Prothrombin Time w/INR Comments: Test performed at:[facility] [address] [place] [address] INR 1.1 (Normal) PROTIME 14.6 s (Normal) Range: 11.7-14.9 :11 INR Fingerstick Comments: Test performed at:[facility] [address] [place] [address] INR ISTAT 1.20 (Normal) Comments: Critical Value > 3.5 :11 Prothrombin Time Fingerstick Comments: Test performed at:[facility] [address] [place] [address] PROTIME ISTAT 13.9 {SEC} (Normal) Range: 11.9-14.4 Comments: Reference Range 11.9 - 14.4 :06 INR Fingerstick Comments: Test performed at:[facility] [address] [place] [address] INR ISTAT 1.10 (Normal) Comments: Critical Value > 3.5 :06 Prothrombin Time Fingerstick Comments: Test performed at:[facility] [address] [place] [address] PROTIME ISTAT 13.6 {SEC} (Normal) Range: 11.9-14.4 Comments: Reference Range 11.9 - 14.4 :28 INR Fingerstick Comments: Test performed at:[facility] [address] [place] [address] INR ISTAT 2.20 (Normal) Comments: Critical Value > 3.5 :28 Prothrombin Time Fingerstick Comments: Test performed at:[facility] [address] [place] [address] PROTIME ISTAT 25.0 {SEC} (Abnormal) Range: 11.9-14.4 Comments: Reference Range 11.9 - 14.4 :19 INR Fingerstick Comments: Test performed at:[facility] [address] [place] [address] INR ISTAT 2.70 (Normal) Comments: Critical Value > 3.5 :19 Prothrombin Time Fingerstick Comments: Test performed at:[facility] [address] [place] [address] PROTIME ISTAT 30.6 {SEC} (Abnormal) Range: 11.9-14.4 Comments: Reference Range 11.9 - 14.4 :09 Prothrombin Time w/INR Comments: Test performed at:[facility] [address] [place] [address] INR 3.2 (Normal) PROTIME 32.6 s (Abnormal) Range: 11.7-14.9 :22 Prothrombin Time w/INR Comments: Test performed at:[facility] [address] [place] [address] INR 2.6 (Normal) PROTIME 27.8 s (Abnormal) Range: 11.7-14.9 :22 Prothrombin Time w/INR Comments: Test performed at:[facility] [address] [place] [address] INR 3.0 (Normal) PROTIME 30.9 s (Abnormal) Range: 11.7-14.9 :12 Prothrombin Time w/INR Comments: Test performed at:[facility] [address] [place] [address] INR 3.4 (Normal) PROTIME 33.7 s (Abnormal) Range: 11.7-14.9 :10 Prothrombin Time w/INR Comments: Test performed at:[facility] [address] [place] [address] INR 3.7 (Abnormal) PROTIME 36.4 s (Abnormal) Range: 11.7-14.9 44-Ths-125963:20 Prothrombin Time w/INR Comments: Test performed at:[facility] [address] [place] [address] INR 3.0 (Normal) PROTIME 31.0 s (Abnormal) Range: 11.7-14.9 :10 Prothrombin Time w/INR Comments: Test performed at:[facility] [facility] [address] [place] [address] INR 3.0 (Normal) PROTIME 30.7 s (Abnormal) Range: 11.7-14.9 :04 Prothrombin Time w/INR Comments: Test performed at:[facility] [address] [place], [place] [address] INR 1.7 (Normal) PROTIME 19.7 s (Abnormal) Range: 11.7-14.9 :17 Prothrombin Time w/INR Comments: Test performed at:[facility] [address] [place], [place] [id number] INR 1.8 (Normal) PROTIME 21.1 s (Abnormal) [...] Comments: Please note revised PROTIME reference range skfwdwydy76/14/15. 08-Hci-81270:05 PT INR 3.0 (Normal) PTP 30.6 s (Abnormal) Range: 11.7-14.9 Comments: Please note revised PROTIME reference range puklgkief01/14/15. 13-Jtb-89397:07 PT INR 5.6 (Abnormal) PTP 50.1 s (Abnormal) Range: 11.7-14.9 Comments: Please note revised PROTIME reference range dnqwdanyl66/14/15. :03 PT INR 2.5 (Normal) PTP 27.0 s (Abnormal) Range: 11.7-14.9 Comments: Please note revised PROTIME reference range xauothkmg61. 80-Yqn-46140:03 PT INR 2.0 (Normal) PTP 23.0 s (Abnormal) Range: 11.7-14.9 Comments: Please note revised PROTIME reference range pbotjgnrx31. 2-:06 PT INR 2.1 (Normal) PTP 21.9 s [...] CALL DR. BARNES OFFICE, LEFT MESSAGE, 08/01/13 8:30JAIRORESULTS CALLED TO HERIBERTO [...] CHOL 287 mg/dL (Abnormal) Comments: <200 mg/dL Czqfbgbzx918-824 mg/dL Borderline>240 mg/dL High Risk TRIG 78 [...] 4.4-11.0 :08 CMP Comments: DR BARNES ORDERED PAIGE BRAMBILA ORDERED PT CBC CMP GAP 7 (Normal) [...] CRITICAL VALUE REPEATED AND VERIFIED. CALLED TO IZBETWD00/14/14 075 Jeovanny Serrano.RESULTS READ BACK BY OLIVIER . [...] CHOL 227 mg/dL (Abnormal) Comments: <200 mg/dL Hzewlgtmm777-623 mg/dL Borderline>240 mg/dL High Risk HDL 81 [...] CHOL 229 mg/dL (Abnormal) Comments: <200 mg/dL Yvlabfffj187-180 mg/dL Borderline>240 mg/dL High Risk :16 PT [...] Rodriguez M.D.September 21, 2012 at 11:00:07 AM [id number] Signed RU/RU If you are the referring physician and would like to consult with theradiologist who provided this interpretation, please contact Man Styles at [phone]. If this radiologist is unavailable, youwillbe directed to another radiologist to as sist. If you are a patient with a question regarding this report, pleasecontactyour referring physician directly. Professional Interpretation Provided By: Jackson, Phone ,Fax These documents contain legally protected [...] on 09/21/12 1106 Sign by: Laith Rodriguez 4-Ezs-527686:40 CUUR URC See Note (Normal) Comments: This is an amended result. A prior result that was reported as final has been changed.09/07/12 1448 by NSTANSLOSPreviously reported as: FINAL COLONY COUNT <1000 ORGANISM 1: MIXED GRAM POSITIVE ORGANISMS 8-Hdg-174795:40 LYMEWB bKCLDYCY44R Absent (Normal) tLYMWBINTM Negative (Normal) Comments: Note: [...] are those recommended byCDC/ASTPHLD. p23=Osp C , v12=atzidcjwn.Note:Sera from individuals with the following may cross reactin the Lyme Western Blot assays: other spirochetal diseases(periodontal disease, leptospirosis, relapsing fever, yaws,and pin ta); connective autoimmune (Rheumatoid Arthritis andSystemic Lupus Erythematosus and also individuals withAntinuclear Antibody); other infections (Angel MountainSpotted Fever; Desirae-Camargo Virus, and Cy tomegalovirus)..Performed at: [facility] [address] [id number] Director: Juan Ontiveros MD, Phone: [phone] jSEFJCJW92O Absent (Normal) iJLHQEPK86N Absent (Normal) iJGOQASM23H Absent (Normal) zCKLSFKL73B Absent (Normal) tLYMWBINTG Negative (Normal) Comments: Positive: 5 of the followingBorrelia- specific bands:18,23,28,30,39,41,45,58,66, and 93.Negative: No bands or bandingpatterns which do notmeet positive criteria. uLVTPBYH06R Absent (Normal) wHXAHLMB08W Absent (Normal) hGEYSKGG36W Absent (Normal) vMNXRDEW56D Present (Abnormal) cUIJVZEJ25J Absent (Normal) dKYGDOLN80U Absent (Normal) zWKRYGXJ60N Absent (Normal) sPOOTFVL20N Absent (Normal) :03 PT INR 2.9 (Normal) PTP 28.1 s (Abnormal) Range: 11.9-14.4 40-Ujz-784150:12 Microscopic Examination Comments: PATIENT NOT FASTINGPERFORMED BY: [facility] [address]r4350 [employer] [id number] Bacteria Few (Normal) Mucus Threads Present (Normal) Epithelial Cells (non renal) 0-10 {/hpf} (Normal) Range: 0 - 10 RBC None seen {/hpf} (Normal) Range: 0 - 3 WBC None seen {/hpf} (Normal) Range: 0 - 5 :12 Lyme Disease Antibody W/ Comments: PATIENT NOT FASTINGPERFORMED BY: [facility] [employer] SearchAt[facility] [id number] Reflex ([id number]) Lyme Ab Interp.,EIA Negative (Normal) Lyme IgG/IgM Ab <0.91 {index} (Normal) Range: 0.00-0.90 Comments: Negative <0.91 Equivocal 0.91 - 1.09 Positive >1.09 Note: The [facility] [place] mary advises that Western blot testing be performed following all equivocal or positive EIA results. Final diagnosis should include appropriate clinical findi ngs and a positive EIA which is also positive by Western blot. :12 SED RATE ERYTHROCYTE ([id number]) Comments: PATIENT NOT FASTINGPERFORMED BY: [employer]70 [facility] [id number] Sedimentation Rate-Westergren 2 mm/h (Normal) Range: 0-40 :12 C-REACTIVE PROTEIN ([id number]) Comments: PATIENT NOT FASTINGPERFORMED BY: [employer]70 [facility] [id number] C-Reactive Protein, Quant 0.7 mg/L (Normal) Range: 0.0-4.9 76-Fis-880499:12 URINALYSIS, W/ MICRO ([id number]) Comments: PATIENT NOT FASTINGPERFORMED BY: RooT6370 [facility] [id number] Microscopic Examination See below: (Normal) Nitrite, Urine Negative (Normal) Urobilinogen,Semi-Qn 0.2 mg/dL (Normal) Range: 0.0-1.9 Bilirubin Negative (Normal) Occult Blood Negative (Normal) Ketones 3+ (Abnormal) Glucose Negative (Normal) Protein 1+ (Abnormal) WBC Esterase Negative (Normal) Appearance Clear (Normal) Urine-Color Yellow (Normal) pH 6.0 (Normal) Range: 5.0-7.5 Specific Slater 1.025 (Normal) Range: 1.005-1.030 :12 TSH ([id number]) Comments: PATIENT NOT FASTINGPERFORMED BY: [employer] Pjfnnh9426 [facility] [id number] TSH 2.400 {uIU/mL} (Normal) Range: 0.450-4.500 29-Eoq-643769:12 METABOLIC PANEL, COMPREHENSIVE Comments: PATIENT NOT FASTINGPERFORMED BY: [facility]allyNew [facility] Medical CenterTvjpuc3929 [facility] [id number] ([id number]) ALT (SGPT) 19 [iU]/L (Normal) Range: 0-32 [...] Glucose, Serum 91 mg/dL (Normal) Range: 65-99 05-Khi-946030:12 CBC WITH MANUAL DIFF Comments: PATIENT NOT FASTINGPERFORMED BY: [facility]6370 [facility] [id number] Information: [id number] ([id number]) Immature Grans (Abs) 0.0 {x10E3/uL} (Normal) Range: [...] Normal mg/dL (Normal) uPROTU Negative mg/dL (Normal) EDON 6.0 (Normal) Range: 5.0 - 8.0 SGU 1.020 (Normal) Range: 1.002-1.030 KETU Negative mg/dL (Normal) BILIU Negative mg/dL (Normal) GLUR Normal mg/dL (Normal) UCLAR Clear (Normal) UCOL Yellow (Normal) :12 VITD 34.0 ng/mL (Normal) Range: 30.0-100.0 Comments: Vitamin D deficiency has been defined by the [place] ofMedicine and an Endocrine Society practice guideline as alevel of serum 25-OH vitamin D less than 20 ng/mL (1,2).The Endocrine Society went on to further define vitamin Dinsufficiency as a level between 21 and 29 ng/mL (2).1. IOM ([place] of Medicine). 2010. Dietary reference intakes for calcium and D. [place]: The National Academies Press.2. Ana MF, Heriberto NC, Jayla BECKFORD, et al. Evaluation, treatment, and prevention of vitamin D deficiency: an Endocrine Society clinical practice guideline. JCEM. 2010; 96(7): 1911-30.Performed at: - [facility] [id number] Director: Narendra Covarrubias PhD, Phone: [phone] Plan of Care Name Dates Details Instructions BMI 21.0-21.9, adult : Follow up in [...] *: bone density Indication: Osteoporosis Planned Observations PT (Prothrobim Time) ([id number])Indication: Anticoagulated on Coumadin On: 23-May-2018 Request PT (Prothrobim Time) ([id number])Indication: Anticoagulated on Coumadin On: 16-May-2018 Request PT (Prothrobim Time) ([id number])Indication: Anticoagulated on Coumadin On: 09-May-2018 Request PT (Prothrobim Time) ([id number])Indication: Anticoagulated on Coumadin On: 02-May-2018 Request PT (Prothrobim Time) ([id number])Indication: Anticoagulated on Coumadin On: 25-Apr-2018 Request PT (Prothrobim Time) ([id number])Indication: Anticoagulated on Coumadin On: 18-Apr-2018 Request PT (Prothrobim Time) ([id number])Indication: Anticoagulated on Coumadin On: 11-Apr-2018 Request PT (Prothrobim Time) ([id number])Indication: Anticoagulated on Coumadin On: 04-Apr-2018 Request PT (Prothrobim Time) ([id number])Indication: Anticoagulated on Coumadin On: 28-Mar-2018 Request PT (Prothrobim Time) ([id number])Indication: Anticoagulated on Coumadin On: 21-Mar-2018 Request PT (Prothrobim Time) ([id number])Indication: Anticoagulated on Coumadin On: 14-Mar-2018 Request PT (Prothrobim Time) ([id number])Indication: Anticoagulated on Coumadin On: 07-Mar-2018 Request PT (Prothrobim Time) ([id number])Indication: Anticoagulated on Coumadin On: 28-Feb-2018 Request PT (Prothrobim Time) ([id number])Indication: Anticoagulated on Coumadin On: 21-Feb-2018 Request PT (Prothrobim Time) ([id number])Indication: Anticoagulated on Coumadin On: 14-Feb-2018 Request PT (Prothrobim Time) ([id number])Indication: Anticoagulated on Coumadin On: 07-Feb-2018 Request PT (Prothrobim Time) ([id number])Indication: Anticoagulated on Coumadin On: 31-Jan-2018 Request PT (Prothrobim Time) ([id number])Indication: Anticoagulated on Coumadin On: 24-Jan-2018 Request PT (Prothrobim Time) ([id number])Indication: Anticoagulated on Coumadin On: 17-Jan-2018 Request PT (Prothrobim Time) ([id number])Indication: Anticoagulated on Coumadin On: 10-Jan-2018 Request PT (Prothrobim Time) ([id number])Indication: Anticoagulated on Coumadin On: 03-Jan-2018 Request PT (Prothrobim Time) ([id number])Indication: Anticoagulated on Coumadin On: 27-Dec-2017 Request PT (Prothrobim Time) ([id number])Indication: Anticoagulated on Coumadin On: 20-Dec-2017 Request BILIRUBIN, TOTAL ([id number])Indication: Encounter for screening for lipid disorder On: 97-Piw-415016:28 Request BILIRUBIN, DIRECT ([id number])Indication: Encounter for screening for lipid disorder On: 07-Adh-316507:28 Request CBC, PLATELETS & AUT DIFF ([id number])Indication: Encounter for screening for lipid disorder On: 36-Tiu-498792:47 Request Metabolic Panel, Comprehensive ([id number])Indication: Encounter for screening for lipid disorder On: 05-Ajq-25074:10 Request CBC & PLATELETS (AUTO) ([id number])Indication: Encounter for screening for lipid disorder On: 09-Exe-20855:10 Request LIPID PANEL ([id number])Indication: Encounter for screening for lipid disorder On: 50-Nur-25514:09 Request PT (Prothrobim Time) ([id number])Indication: Anticoagulated on Coumadin On: 13-Dec-2017 Request PT (Prothrobim Time) ([id number])Indication: Anticoagulated on Coumadin On: 06-Dec-2017 Request PT (Prothrobim Time) ([id number])Indication: Anticoagulated on Coumadin On: 29-Nov-2017 Request PT (Prothrobim Time) ([id number])Indication: Anticoagulated on Coumadin On: 22-Nov-2017 Request PT (Prothrobim Time) ([id number])Indication: Anticoagulated on Coumadin On: 15-Nov-2017 Request PT (Prothrobim Time) ([id number])Indication: Anticoagulated on Coumadin On: 08-Nov-2017 Request PT (Prothrobim Time) ([id number])Indication: Anticoagulated on Coumadin On: 01-Nov-2017 Request PT (Prothrobim Time) ([id number])Indication: Anticoagulated on Coumadin On: 25-Oct-2017 Request PT (Prothrobim Time) ([id number])Indication: Anticoagulated on Coumadin On: 18-Oct-2017 Request PT (Prothrobim Time) ([id number])Indication: Anticoagulated on Coumadin On: 11-Oct-2017 Request PT (Prothrobim Time) ([id number])Indication: Anticoagulated on Coumadin On: 04-Oct-2017 Request PT (Prothrobim Time) ([id number])Indication: Anticoagulated on Coumadin On: 27-Sep-2017 Request PT (Prothrobim Time) ([id number])Indication: Anticoagulated on Coumadin On: 20-Sep-2017 Request PT (Prothrobim Time) ([id number])Indication: Anticoagulated on Coumadin On: 13-Sep-2017 Request PT (Prothrobim Time) ([id number])Indication: Anticoagulated on Coumadin On: 06-Sep-2017 Request PT (Prothrobim Time) ([id number])Indication: Anticoagulated on Coumadin On: 30-Aug-2017 Request PT (Prothrobim Time) ([id number])Indication: Anticoagulated on Coumadin On: 23-Aug-2017 Request PT (Prothrobim Time) ([id number])Indication: Anticoagulated on Coumadin On: 16-Aug-2017 Request PT (Prothrobim Time) ([id number])Indication: Anticoagulated on Coumadin On: 09-Aug-2017 Request PT (Prothrobim Time) ([id number])Indication: Anticoagulated on Coumadin On: 02-Aug-2017 Request PT (Prothrobim Time) ([id number])Indication: Anticoagulated on Coumadin On: 26-Jul-2017 Request PT (Prothrobim Time) ([id number])Indication: Anticoagulated on Coumadin On: 19-Jul-2017 Request PT (Prothrobim Time) ([id number])Indication: Anticoagulated on Coumadin On: 12-Jul-2017 Request PT (Prothrobim Time) ([id number])Indication: Anticoagulated on Coumadin On: 05-Jul-2017 Request PT (Prothrobim Time) ([id number])Indication: Anticoagulated on Coumadin On: 28-Jun-2017 Request PT (Prothrobim Time) ([id number])Indication: Anticoagulated on Coumadin On: 21-Jun-2017 Request PT (Prothrobim Time) ([id number])Indication: Anticoagulated on Coumadin On: 14-Jun-2017 Request PT (Prothrobim Time) ([id number])Indication: Anticoagulated on Coumadin On: 07-Jun-2017 Request PT (Prothrobim Time) ([id number])Indication: Anticoagulated on Coumadin On: 31-May-2017 Request PT (Prothrobim Time) ([id number])Indication: Anticoagulated on Coumadin On: 25-May-2017 Request PT (Prothrobim Time) ([id number])Indication: Anticoagulated on Coumadin On: 25-May-2017 Request PT (Prothrobim Time) ([id number])Indication: Anticoagulated on Coumadin On: 24-May-2017 Request PT (Prothrobim Time) ([id number])Indication: Anticoagulated on Coumadin On: 17-May-2017 Request PT (Prothrobim Time) ([id number])Indication: Anticoagulated on Coumadin On: 10-May-2017 Request PT (Prothrobim Time) ([id number])Indication: Anticoagulated on Coumadin On: 03-May-2017 Request PT (Prothrobim Time) ([id number])Indication: Anticoagulated on Coumadin On: 26-Apr-2017 Request PT (Prothrobim Time) ([id number])Indication: Anticoagulated on Coumadin On: 25-Apr-2017 Request PT (Prothrobim Time) ([id number])Indication: Anticoagulated on Coumadin On: 25-Apr-2017 Request PT (Prothrobim Time) ([id number])Indication: Anticoagulated on Coumadin On: 19-Apr-2017 Request PT (Prothrobim Time) ([id number])Indication: Anticoagulated on Coumadin On: 12-Apr-2017 Request PT (Prothrobim Time) ([id number])Indication: Anticoagulated on Coumadin On: 05-Apr-2017 Request PT (Prothrobim Time) ([id number])Indication: Anticoagulated on Coumadin On: 29-Mar-2017 Request PT (Prothrobim Time) ([id number])Indication: Anticoagulated on Coumadin On: 26-Mar-2017 Request PT (Prothrobim Time) ([id number])Indication: Anticoagulated on Coumadin On: 26-Mar-2017 Request PT (Prothrobim Time) ([id number])Indication: Anticoagulated on Coumadin On: 22-Mar-2017 Request PT (Prothrobim Time) ([id number])Indication: Anticoagulated on Coumadin On: 15-Mar-2017 Request PT (Prothrobim Time) ([id number])Indication: Anticoagulated on Coumadin On: 08-Mar-2017 Request PT (Prothrobim Time) ([id number])Indication: correction (current) use of anticoagulants (Renamed from correction current use of anticoagulant therapy) On: 95-Xsx-571188:48 Request Comments: Standing order PT (Prothrobim Time) ([id number])Indication: Anticoagulated on Coumadin On: 01-Mar-2017 Request PT (Prothrobim Time) ([id number])Indication: Anticoagulated on Coumadin On: 24-Feb-2017 Request PT (Prothrobim Time) ([id number])Indication: Anticoagulated on Coumadin On: 24-Feb-2017 Request PT (Prothrobim Time) ([id number])Indication: Anticoagulated on Coumadin On: 22-Feb-2017 Request PT (Prothrobim Time) ([id number])Indication: Anticoagulated on Coumadin On: 15-Feb-2017 Request PT (Prothrobim Time) ([id number])Indication: Anticoagulated on Coumadin On: 08-Feb-2017 Request PT (Prothrobim Time) ([id number])Indication: Anticoagulated on Coumadin On: 01-Feb-2017 Request PT (Prothrobim Time) ([id number])Indication: Anticoagulated on Coumadin On: 25-Jan-2017 Request PT (Prothrobim Time) ([id number])Indication: Anticoagulated on Coumadin On: 25-Jan-2017 Request PT (Prothrobim Time) ([id number])Indication: Anticoagulated on Coumadin On: 25-Jan-2017 Request PT (Prothrobim Time) ([id number])Indication: Anticoagulated on Coumadin On: 18-Jan-2017 Request PT (Prothrobim Time) ([id number])Indication: Anticoagulated on Coumadin On: 11-Jan-2017 Request PT (Prothrobim Time) ([id number])Indication: Anticoagulated on Coumadin On: 04-Jan-2017 Request PT (Prothrobim Time) ([id number])Indication: Anticoagulated on Coumadin On: 28-Dec-2016 Request PT (Prothrobim Time) ([id number])Indication: Anticoagulated on Coumadin On: 26-Dec-2016 Request PT (Prothrobim Time) ([id number])Indication: Anticoagulated on Coumadin On: 26-Dec-2016 Request PT (Prothrobim Time) ([id number])Indication: Anticoagulated on Coumadin On: 21-Dec-2016 Request PT (Prothrobim Time) ([id number])Indication: Anticoagulated on Coumadin On: 14-Dec-2016 Request PT (Prothrobim Time) ([id number])Indication: Anticoagulated on Coumadin On: 07-Dec-2016 Request PT (Prothrobim Time) ([id number])Indication: Anticoagulated on Coumadin On: 30-Nov-2016 Request PT (Prothrobim Time) ([id number])Indication: Anticoagulated on Coumadin On: 26-Nov-2016 Request PT (Prothrobim Time) ([id number])Indication: Anticoagulated on Coumadin On: 26-Nov-2016 Request PT (Prothrobim Time) ([id number])Indication: Anticoagulated on Coumadin On: 23-Nov-2016 Request PT (Prothrobim Time) ([id number])Indication: Anticoagulated on Coumadin On: 16-Nov-2016 Request PT (Prothrobim Time) ([id number])Indication: Anticoagulated on Coumadin On: 09-Nov-2016 Request PT (Prothrobim Time) ([id number])Indication: Anticoagulated on Coumadin On: 02-Nov-2016 Request PT (Prothrobim Time) ([id number])Indication: Anticoagulated on Coumadin On: 27-Oct-2016 Request PT (Prothrobim Time) ([id number])Indication: Anticoagulated on Coumadin On: 27-Oct-2016 Request PT (Prothrobim Time) ([id number])Indication: Anticoagulated on Coumadin On: 26-Oct-2016 Request PT (Prothrobim Time) ([id number])Indication: Anticoagulated on Coumadin On: 19-Oct-2016 Request PT (Prothrobim Time) ([id number])Indication: Anticoagulated on Coumadin On: 12-Oct-2016 Request PT (Prothrobim Time) ([id number])Indication: Anticoagulated on Coumadin On: 05-Oct-2016 Request PT (Prothrobim Time) ([id number])Indication: Anticoagulated on Coumadin On: 28-Sep-2016 Request PT (Prothrobim Time) ([id number])Indication: Anticoagulated on Coumadin On: 27-Sep-2016 Request PT (Prothrobim Time) ([id number])Indication: Anticoagulated on Coumadin On: 27-Sep-2016 Request PT (Prothrobim Time) ([id number])Indication: Anticoagulated on Coumadin On: 21-Sep-2016 Request PT (Prothrobim Time) ([id number])Indication: Anticoagulated on Coumadin On: 14-Sep-2016 Request PT (Prothrobim Time) ([id number])Indication: Anticoagulated on Coumadin On: 07-Sep-2016 Request PT (Prothrobim Time) ([id number])Indication: Anticoagulated on Coumadin On: 31-Aug-2016 Request PT (Prothrobim Time) ([id number])Indication: Anticoagulated on Coumadin On: 28-Aug-2016 Request PT (Prothrobim Time) ([id number])Indication: Anticoagulated on Coumadin On: 28-Aug-2016 Request PT (Prothrobim Time) ([id number])Indication: Anticoagulated on Coumadin On: 24-Aug-2016 Request PT (Prothrobim Time) ([id number])Indication: Anticoagulated on Coumadin On: 17-Aug-2016 Request PT (Prothrobim Time) ([id number])Indication: Anticoagulated on Coumadin On: 10-Aug-2016 Request PT (Prothrobim Time) ([id number])Indication: Anticoagulated on Coumadin On: 03-Aug-2016 Request PT (Prothrobim Time) ([id number])Indication: Anticoagulated on Coumadin On: 29-Jul-2016 Request PT (Prothrobim Time) ([id number])Indication: Anticoagulated on Coumadin On: 29-Jul-2016 Request PT (Prothrobim Time) ([id number])Indication: Anticoagulated on Coumadin On: 27-Jul-2016 Request PT (Prothrobim Time) ([id number])Indication: Anticoagulated on Coumadin On: 20-Jul-2016 Request PT (Prothrobim Time) ([id number])Indication: Anticoagulated on Coumadin On: 13-Jul-2016 Request PT (Prothrobim Time) ([id number])Indication: Anticoagulated on Coumadin On: 06-Jul-2016 Request Metabolic Panel, Comprehensive ([id number])Indication: Irritable Bowel Syndrome On: 09-Djx-216512:28 Request TSH ([id number])Indication: Irritable Bowel Syndrome On: 85-Ruf-361058:28 Request CBC, Platelets & Auto Diff ([id number])Indication: Irritable Bowel Syndrome On: 78-Uxq-299981:28 Request PT (Prothrobim Time) ([id number])Indication: Anticoagulated on Coumadin On: 70-Dyd-022037:24 Request PT (Prothrobim Time) ([id number])Indication: DVT (deep venous thrombosis) On: 01-Pyy-232688:11 Request Comments: INR - STANDING ORDER Vitamin D Hydroxy ([id number])Indication: Osteoporosis On: 80-Bzk-918327:16 Request TSH ([id number])Indication: Osteoporosis On: 78-Rpq-298239:16 Request CBC with auto diff ([id number])Indication: Benign Essential Hypertension On: 55-Mzb-445876:16 Request METABOLIC PANEL, COMPREHENSIVE ([id number])Indication: Benign Essential Hypertension On: 49-Cpl-489692:16 Request LIPID PANEL ([id number])Indication: Hyperlipidemia On: 57-Ivm-765950:16 Request CBC W/AUTO DIFF WBC ([id number])Indication: Benign Essential Hypertension On: 4-Kqp-548032:34 Request METABOLIC PANEL, COMPREHENSIVE ([id number])Indication: Benign Essential Hypertension On: 2-Dwx-876353:34 Request TSH ([id number])Indication: Osteoporosis On: :39 Request CBC W/AUTO DIFF WBC ([id number])Indication: Osteoporosis On: :39 Request LIPID PANEL ([id number])Indication: Hyperlipidemia On: :38 Request METABOLIC PANEL, COMPREHENSIVE ([id number])Indication: Benign Essential Hypertension On: :38 Request PT (Prothrobim Time) ([id number])Indication: DVT (deep venous thrombosis) On: 5-Axd-911286:18 Request Comments: FINGER STICKSTANDING ORDER PT (Prothrobim Time) ([id number])Indication: DVT (deep venous thrombosis) On: 07-Kku-656536:28 Request Comments: Standing Order URINALYSIS, W/ MICRO ([id number])Indication: Benign Essential Hypertension On: :37 Request METABOLIC PANEL, COMPREHENSIVE ([id number])Indication: Benign Essential Hypertension On: :37 Request LIPID PANEL ([id number])Indication: Hyperlipidemia On: :37 Request CBC W/AUTO DIFF WBC ([id number])Indication: DVT (deep venous thrombosis) On: :37 Request PT (Prothrobim Time) ([id number])Indication: DVT (deep venous thrombosis) On: 55-Xyl-956030:02 Request CBC WITH MANUAL DIFF ([id number])Indication: Benign Essential Hypertension On: :39 Request METABOLIC PANEL, COMPREHENSIVE ([id number])Indication: Hyperlipidemia On: :39 Request LIPID PANEL ([id number])Indication: Hyperlipidemia On: :39 Request PT (Prothrobim Time) ([id number])Indication: DVT (deep venous thrombosis) On: :07 Request Comments: pls call education administrative assistant Dr Hunter with results on 05/20/13 PT (Prothrobim Time) ([id number])Indication: DVT (deep venous thrombosis) On: 94-Edh-755954:00 Request Comments: Standing Order PT (Prothrobim Time) ([id number])Indication: DVT (deep venous thrombosis) On: :59 Request Comments: INR - STANDING ORDER x 1 year URINALYSIS, W/ MICRO ([id number])Indication: Benign Essential Hypertension On: :15 Request CBC WITH MANUAL DIFF ([id number])Indication: Benign Essential Hypertension On: :15 Request METABOLIC PANEL, COMPREHENSIVE ([id number])Indication: Benign Essential Hypertension On: 07-Feb-20139:14 Request LIPID PANEL ([id number])Indication: Hyperlipidemia On: :14 Request METABOLIC PANEL, COMPREHENSIVE ([id number])Indication: Benign Essential Hypertension On: :06 Request LIPID PANEL ([id number])Indication: Hyperlipidemia On: :06 Request URINE HANNAH CULTURE-IDENTIFICATN ([id number])Indication: Urinary frequency On: :56 Request URINE HANNAH CULTURE-IDENTIFICATN ([id number])Indication: Insect bite On: 63-Ken-641318:19 Request Lyme Disease,Serum, Western Blot ([id number])Indication: Insect bite On: 01-Kzr-343591:19 Request PT (Prothrobim Time) ([id number])Indication: DVT (deep venous thrombosis) On: 48-Biy-490083:59 Request Comments: standing order LIPID PANEL ([id number])Indication: FAMILY HISTORY OF ISCHEMIC HEART DISEASE On: 01-Qec-850924:28 Request LIPID PANEL ([id number])Indication: FAMILY HISTORY OF ISCHEMIC HEART DISEASE On: 0-Phd-728206:51 Request Vitamin D Hydroxy ([id number])Indication: Osteoporosis On: 5-Wyj-983003:18 Request TSH ([id number])Indication: Osteoporosis On: 6-Mps-617514:18 Request URINALYSIS, W/ MICRO ([id number])Indication: Osteoporosis On: 0-Gwa-276915:18 Request CBC WITH MANUAL DIFF ([id number])Indication: Osteoporosis On: [id number] Request METABOLIC PANEL, COMPREHENSIVE ([id number])Indication: Osteoporosis On: 9-Tyy-[id number] Request PTT (Activated Partial Thromboplastin Time) ([id number])Indication: DVT (deep venous thrombosis) On: [id number]-[id number]:16 Request PT (Prothrobim Time) ([id number])Indication: DVT (deep venous thrombosis) On: 6-Lhk-[id number]:16 Request Planned Encounters Medical; Review Results - On: 07-Feb-2018 13:00 [facility] Selam Blair CNP E Selam Blair CNP Planned Procedures DEXA SCAN AXIAL SKELETON ([id number])By: On: 17-Dec-2017 Intent Selam Blair CNP, CNP, Mary E Aerosol Treatment ([id number])By: Johnnie On: 02-Jun-2017 Intent Selam DAVIES CNP, Mary E Ultrasound - LiverBy: Minalcuca Selam DAVIES On: 15-Dec-2016 Intent E Selam Blair CNP Aerosol Treatment ([id number])By: Johnnie On: 13-Oct-2016 Intent Selam DAVIES CNP, Mary E Aerosol Treatment ([id number])By: Aleksey On: 19-Feb-2015 Intent Eliana HOFFMANN Ultrasound - AortaBy: Helen Barnes DO On: 18-Dec-2014 Intent EKG ([id number])By: Helen Barnes DO On: 05-Nov-2014 Intent Comments: ekg showed normal sinus rhythym, normal axis, no acute st/t wave changes BILATERAL MAMMOGRAMS ([id number])By: Timothy On: 17-Sep-2014 Intent Helen [place] Radiology - Shoulder - LeftBy: Bonezzi On: 05-Mar-2014 Intent Fatimah RANDLE Comments: if not better with PT MAMMOGRAM, SCREENING, BOTH BREASTS On: 08-Aug-2013 Intent ([id number])By: Helen Barnes DO Eprescribed prescriptions ([id number])By: On: 08-Aug-2013 Intent Helen Barnes DO DXA, BONE DENSITY, AXIAL SKELETON On: 21-Oct-2012 Intent ([id number])By: Helen Barnes DO Comments: dexa- dec Eprescribed prescriptions ([id number])By: On: 21-Oct-2012 Intent So Bailey Breast Screening - BilateralBy: Timothy On: 19-Sep-2012 Intent Helen [place] Eprescribed prescriptions ([id number])By: On: 30-Aug-2012 Intent So Bailey Spirometry ([id number])By: Helen Barnes DO On: 11-Mar-2012 Intent A Comments: good effort and curve mild obst- Doppler Ultrasound OtherBy: Timothy [place], On: 11-Mar-2012 Intent Helen A Comments: both legs- stat call results Eprescribed prescriptions ([id number])By: On: 11-Mar-2012 Intent So Bailey TD Injection , IM ([id number])By: Leo, On: 11-Mar-2012 Intent So Comments: 2003 FLU VAC, SPLIT, >3 YEARS, INTRAMUSC On: 11-Mar-2012 Intent ([id number])By: So Bailey Comments: got at [facility] Instructions Name Dates Details Nonsmoker : How [...] Coumadin : DISCONTINUED - PT (PROTHROMBIN TIME) ([id number]) Indication: Anticoagulated on Coumadin Irritable Bowel Syndrome [...] Osteoporosis : Patient Instructions Indication: Osteoporosis Encounters Annotation/Addendum On: 01-Feb-2018 14:11 [facility] [...] patient does not have durable power of manager military. The patient has noticed nothing from the geriatic depression scale. 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 [...] Medicine Annotation/Addendum On: 01-Mar-2017 12:47 Encounter Diagnosis: correction (current) use of anticoagulants (Renamed from correction current use of anticoagulant therapy) End: 01-Mar-2017 12:49 [facility] Office Visit On: 15-Dec-2016 7:49 Encounter Reason: Annual Medicare Exam - The patient had reviewed and updated the family history, medication/s, past medical history and social history. Yes the patient did have (30/30) a mini mental status exam done to End: 15-Dec-2016 10:15 ay. The activities of [...] patient does not have durable power of manager military or living will . The patient has noticed nothing from the geriatic depression scale. Other providers contributing to the patient's care are other: (dr crawford for eyes). 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 The p atient has noticed nothing from the geriatic depression scale. Other providers contributing to the patient's care are other: (ENT and dr crawford for eyes). Note for Annual Medicare Exam: Pt has WWE done by her OPERATOR AUTOMATED PROCESS., [ADDITIONAL REASON] Follow up for chronic medical [...] cyst is gone- - still fluid in [place] and calcification- going to have D?C- [...] dz). Patient has been compliant with instructions. [place] End: 19-Sep-2014 6:56 t medication use: no [...] dz). Patient has been compliant with instructions. [place] End: 13-Feb-2014 9:08 t medication use: no [...] with Lyme dz symptoms- pt went to [place] and had lyme dz treatment-), has End: [...] HEART DISEASE (V17.3) [facility] Payers MedicareAA/Edna Bryant; a guarantor
--- OUTSIDE RECORDS SUMMARY | 2018-06-24 14:22 | XMS RPT_ITS | Continuity of Care Document ---
:1950 Author Organization [facility] Address [address] [place] [address] Phone Care Team Providers Name Role Phone Riddhiraul SAMSONSelam E Unavailable Dr. Meseret Santana MD Unavailable Aida Keen LPN Unavailable Unavailable Paola Lara Unavailable Unavailable Sigrid Mobley Unavailable Unavailable Unavailable [...] in [address] Status: Active 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 (current) use of anticoagulants (Renamed from 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 current use of anticoagulant therapy) (Z79.01, V58.61) [...] Refills: 3 Ordered:13-Sep-2017 Selam Blair CNP, CNP Selam Latif Start : 13-Sep-2017 Active Calcium 1200 8773-6716 MG-UNIT Oral Tablet Chewable daily (9773-4569 MG-UNIT) Active Cinnamon 500 MG Oral Capsule 2caps qd (500 MG) Active Coumadin 1 MG Oral Tablet 1 (one) Tablet qd as directed for 90 days Quantity: 90 {Tablet} Refills: 3 Ordered:14-Sep-2017 Selam Blair CNP, CNP Brenda Start : 14-Sep-2017 Active Coumadin [...] Quantity: 30 {Tablet} Refills: 1 Ordered:17-Dec-2017 Johnnie FOOD SERVICE DRIVER, Selam Taveras FOOD SERVICE DRIVER, Selam Latif Start : 17-Dec-2017 Active Latanoprost [...] 500MG (Oral Tablet) 1 (one) Tablet bid m35yjbf for 10 days Quantity: 20 {Tablet} Refills: [...] Refills: 0 Ordered:02-Jun-2017 Johnnie DAVIES, Selam Taveras FOOD SERVICE DRIVER, Selam Latif Start : 02-Jun-2017 End : [...] (M85.80, 733.90) Status: Inactive as of 11-Mar-2012 [place] [facility] (H10.029, 372.03) Status: Inactive as of [...] Status: Resolved as of 21-Oct-2012 Vaccine for jzethbjaru-glwbfhq-tffzcolmw with poliomyelitis (Z23, V06.3) Status: Inactive as of 21-Oct-2012 Procedures Procedure Dates Details Appendectomy Completed D&C Completed Comments: [facility] Tonsillectomy Completed Tubal Ligation Completed Date Value Details 16-Feb-2018 Venous Duplex Lower Extremity Result: Comments: See Note; NOTES: [facility] Cardiovascular Services [address] [place] [address] Venous Duplex US, Unilateral 02/15/18 1350 MR#: [id number] Acct: [id number] Name: YAHAIRA ENG Rep #: [id number] : 1950 67 From: Tony Valentino MD Attending Dr: KRISTIAN Cruz Status: REG CLI Ordering Dr: Sigrid Mobley Date: 02/15/18 Location: [facility] Sex: F C [...] Ordering Physician: KRISTIAN Cruz Performed By: Nigel Mcguire, RVT 02/16/18 0813 Date Tony Valentino MD CC: Selam Blair NP; HEALTH PROMOTION COORDINATOR-C Annie Mobley Date Dictated: 02/15/18 1350 Date Transcribed: 02/16/18812 Property Supervisor: Signed 23-Dec-2017 Dexa Bone Density Study Result: Comments: See Note; NOTES: [facility] Imaging Services [address] [place] [address] Dexa Bone Density Study MR#: [id number] Acct: [id number] Name: YAHAIRA BRYANT Rep #: [id number] : 1950 F 67 From: Cole Coronado MD PCP: Selam Blair NP Status: REG CLI Study: Dexa Bone Density Study Date of Exam: 12/23/17 Exam# [id number] Ordering Dr: Selam Blair STUDY: DUAL ENERGY [...] Cole Coronado MD at 8:50 EDT Tel [phone], Service support , CC: Selam Blair NP Property Supervisor: Signed 07-Oct-2017 SCREENING MAMM (CAD), BILAT Result: Comments: See Note; NOTES: [facility] Imaging Services [address] [place] [address] SCREENING MAMM (CAD), BILAT MR#: [id number] Acct: [id number] Name: YAHAIRA BRYANT Rep #: [id number] : 1950 F 67 From: Cole Coronado MD PCP: Selam Blair NP Status: REG CLI Study: SCREENING MAMM (CAD), BILAT Date of Exam: 10/07/17 Exam# [id number] Ordering Dr: Aliza Santana MD MAMMOGRAPHY - [...] delay biopsy of a clinically suspicious abnormality. [id number] Electronically Signed: Cole Coronado MD at 11:23 EDT Tel [phone], Service support , CC: Selam Blair NP; Aliza Santana MD Property Supervisor: Signed 23-Sep-2017 Downtime Report Result: Comments: See Note; NOTES: [facility] Medical Records Department [address] [place] [address] Downtime Report MR#: [id number] Acct: [id number] Name: YAHAIRA BRYANT R Rep #: [id number] : 1950 67 From: Jered Kumar PCP: Selam Blair NP Status: REG CLI This patient was seen during an EMR downtime September 06, 2017 - September 13, 2017. This patient may have a combination of p aper and electronic documentation or all paper documentation. All documentation is viewable within the e-chart portion of [facility] [employer] for each patient visit. 16-Dec-2016 Liver Result: Comments: See Note; NOTES: [facility] Imaging Services [address] [facility] [place] [address] Liver MR#: [id number] Acct: [id number] Name: YAHAIRA BRYANT Rep #: [id number] : 1950 F 66 From: Jose Mcghee MD PCP: Selam Blair Status: REG CLI Study: Liver Date of Exam: 12/16/16 Exam# [id number] Ordering Dr: Selam Blair STUDY: ABDOMINAL ULTRASOUND [...] MD at 16:28 EDT , Service support [phone], CC: Selam Blair Property Supervisor: Signed 21-Dec-2014 Aorta Result: Comments: See Note; NOTES: [facility] Imaging Services [address] [place] [address] Ultrasound Report MR#: [id number] Acct: [id number] Name: YAHAIRA BRYANT Rep #: [id number] : 1950 F 64 From: Cole Coronado MD PCP: Helen Barnes DO Status: REG CLI Study: Aorta Date of Exam: 12/21/14 Exam# [id number] Ordering Dr: Helen Barnes DO PROCEDURES: ULTRASOUN [...] Cole Coronado MD at 9:45 EDT Tel [phone], Service support [phone], CC: Helen Barnes DO Property Supervisor: Signed 12-Dec-2014 Bilat Scrn Digital AND CAD Result: Comments: See Note; NOTES: [facility] Imaging Services [address] [place] [address] Breast Imaging Report MR#: [id number] Acct: [id number] Name: YAHAIRA BRYANT Rep # : [id number] : 1950 F 64 From: Gabino South MD PCP: Helen Barnes DO Status: REG CLI Study: Bilat Scrn Digital AND CAD Date of Exam: 12/12/14 Exam# [id number] Ordering Dr: Helen Barnes DO M AMMOGRAPHY [...] at 14:51 EDT Tel , Service support [phone], CC: Helen Barnes DO Property Supervisor: Signed 12-Dec-2014 Bilat Scrn Digital AND CAD Result: Comments: See Note; NOTES: [facility] Imaging Services [address] [place] [address] Breast Imaging Report MR#: [id number] Acct: [id number] Name: YAHAIRA BRYANT Rep # : [id number] : 1950 F 64 From: Gabino South MD PCP: Helen Barnes DO Status: REG CLI Study: Bilat Scrn Digital AND CAD Date of Exam: 12/12/14 Exam# [id number] Ordering Dr: Helen Barnes DO A DDENDUM by Cole Coronado MD on 12/17/14 at 1003 ADDENDUM This is an addendum report for BI -RADS category. BI-RADS category 2. Electronically Signed: Cole Coronado MD at 10:03 EDT Tel [phone], Service support [phone], 12/17/14 1003 D ate cc: Helen Barnes [...] at 14:51 EDT Tel , Service support [phone], CC: Helen Barnes DO Property Supervisor: Signed 03-Dec-2014 Operative Report Result: Comments: See Note; NOTES: [facility] Medical Records Department [address] [place] [address] Operative Report MR#: [id number] Acct: [id number] Name: YAHAIRA BRYANT Rep #: [id number] : 1950 64 From: Aliza Santana MD PCP: Helen Barnes DO Status: [facility] DATE OF SERVICE: 11/26/2014 DATE OF [...] time. Aliza Santana MD T: NTS JOB: [id number] 12/03/14 1321 <Electronically signed by An jamison Santana MD> Date Aliza Santana MD Cosigner Signature (If Indicated): Date CC: Aleyda Santana MD; Helen Barnes DO Date Dictated: 11/29/14918 Date Transcribed: 11/29/14918 Property Supervisor: Signed 26-Nov-2014 Discharge Instruction Result: Comments: See Note; NOTES: [facility] Medical Records Department [address] [place] [address] Instructions for Home/Discharge Instructions 11/26/14 1200 MR#: [id number] ct: [id number] Name: YAHAIRA BRYANT Rep #: [id number] : 1950 64 From: Aliza Santana MD PCP: Helen Barnes DO Status: REG [facility] Discharge Diet: No Restrictions Discharge Activity: Return [...] Operative Report Result: Comments: See Note; NOTES: [facility] Medical Records Department [address] [facility] [place] [address] Operative Report 11/26/14 1159 MR#: [id number] Acct: [id number] Name: YAHAIRA DEJESUS Rep #: [id number] : 1950 64 From: Aliza Santana MD PCP: Helen Barnes DO Status: REG [facility] Y Location: [place] [address] Operative Report (Blank) Date of Procedure: 11/26/14 [...] MD; Helen Barnes DO Signed 05-Nov-2014 Spirometry (57908) Comments: good effort aand curve mild obstruction Result: 06-Jun-2014 Transvaginal Non- Result: Comments: See Note; NOTES: [facility] Imaging Services [address] [place] [address] Ultrasound Report MR#: [id number] Acct: [id number] Name: YAHAIRA BRYANT Rep #: [id number] : 1950 F 63 From: Telly Cruz DO PCP: Helen Barnes DO Status: REG CLI Study: Transvaginal Non- Date of Exam: 06/06/14 Exam# [id number] Ordering Dr: Izzy Becerra STUDY: ULTRASOUND TRANSVAGINAL [...] DO at 13:34 EST , Service support [phone], CC: Helen Barnes DO; Izzy Becerra MD Property Supervisor: Signed 06-Jun-2014 Pelvic (Non ) Result: Comments: See Note; NOTES: [facility] Imaging Services [address] [place] [address] Ultrasound Report MR#: [id number] Acct: [id number] Name: YAHAIRA BRYANT Rep #: [id number] : 1950 F 63 From: Telly Cruz DO PCP: Helen Barnes DO Status: REG CLI Study: Pelvic (Non ) Date of Exam: 06/06/14 Exam# [id number] Ordering Dr: Izzy Becerra MD STUDY: ULTRASOUND [...] DO at 13:34 EST , Service support [phone], CC: Helen Barnes DO; Izzy Becerra MD Property Supervisor: Signed 11-Oct-2013 Bilat Scrn Digital & CAD Result: Comments: See Note; NOTES: [facility] Imaging Services [address] [place] [address] Breast Imaging Report MR#: [id number] Acct: [id number] Name: YAHAIRA BRYANT Rep #: [id number] : 1950 F 63 From: Bradly Lr MD PCP: Helen Barnes DO Status: REG CLI Exam# [id number] Ordering Dr: Helen Barnes DO MAMMOGRAPHY - [...] at 10:37 EDT , Servic e support [phone], CC: Helen Barnes DO Property Supervisor: Signed Family History Unknown Family Member Name [...] kg/m2 Body Surface Area Calculated 1.52 m2 27-Hmk-219760:22 Temperature 97 f Pulse 96 /min Comments: [...] 1.56 m2 Results Date Description Value Details :34 Prothrombin Time w/INR Comments: [facility] [address] [place], [place], [phone] INR 2.7 (Normal) PROTIME 29.2 s (Abnormal) Range: 11.7-14.9 :41 Prothrombin Time w/INR Comments: [facility] [address] [place], [place], [phone] INR 3.0 (Normal) PROTIME 31.4 s (Abnormal) Range: 11.7-14.9 :17 ANTINUCLEAR ANTIBODIES DIRECT Comments: [facility] (refer to report for specific site)refer to report for address and phone number YURIY-DIRECT Negative (Normal) Comments: Performed at: [facility] [address] [id number] Director: Jairo Sears PhD, Phone: [phone] :17 Protein Electro.Ur-Random Comments: [facility] (refer to report for specific site)refer to report for address and phone number NOTE Comment (Normal) Comments: Protein electrophoresis scan will follow via computer,mail, or management sme delivery.Performed at: Fwd: [facility] [place] [id number] Director: Jairo Sears PhD, Phone: [phone] M-SPIKE,U % (Normal) Comments: NOT BSERVED GAMMA GLOB,U 15.5 % (Normal) BETA GLOB,U 33.2 % (Normal) BOWIB-3-UNSY,U 9.5 % (Normal) IFIBL-8-BAHM,U 2.3 % (Normal) ALBUMIN,UR 39.4 % (Normal) PROTEIN,UR 8.3 mg/dL (Normal) :17 Protein Electroph, S Comments: [facility] (refer to report for specific site)refer to report for address and phone number NOTE: Comment (Normal) Comments: The SPE pattern appears essentially unremarkable. Evidenceof monoclonal protein is not apparent.Performed at: Fwd: [facility] [place], [place] [id number] Director: Jairo Seasr PhD, Phone: [phone] INTERPRETATION Comment (Normal) Comments: Protein electrophoresis scan will follow via computer,mail, or management sme delivery. A/G RATIO 1.6 (Normal) Range: 0.7-1.7 [...] Range: 6.0-8.5 :18 Prothrombin Time w/INR Comments: [facility] [address] [place], [place], [address] INR 2.7 (Normal) PROTIME 28.9 s (Abnormal) Range: 11.7-14.9 :58 Bilirubin, Direct Comments: [address] [place], [place], [phone] D BILI 0.18 mg/dL (Normal) Range: 0.00-0.30 :58 CBC W/Diff, Automated Comments: [address] [place], [place], [address] Absolute Lymph 1.49 {X10_3/ul} (Normal) Range: 0.83-4.51 [...] (Abnormal) Range: 4.4-11.0 :58 Total Bilirubin Comments: [facility] [address] [facility] [place], [place], [address] T BILI 0.80 mg/dL (Normal) Range: 0.20-1.00 8-Rlh-402964:14 Prothrombin Time w/INR Comments: [facility] [address] [facility] [place], [place], [phone] INR 2.6 (Normal) PROTIME 27.6 s (Abnormal) Range: 11.7-14.9 97-Qcr-882539:01 CBC W/Diff, Automated Comments: [facility] [address] [place], [place], [address] Absolute Lymph 1.26 {X10_3/ul} (Normal) Range: 0.83-4.51 [...] 4.2-5.4 WBC 3.3 K/mm3 (Abnormal) Range: 4.4-11.0 61-Tzx-495960:01 Comprehensive Metabolic Profil Comments: [facility] [address] [place], [place], [phone] GAP 9 (Normal) Range: 5-15 CO2 28.0 [...] Comments: Please note revised GLUCOSE reference range ojopcpark51/02/2018. 66-Hop-398192:15 Prothrombin Time w/INR Comments: [facility] [address] [place], [place], [phone]) INR 3.0 (Normal) PROTIME 31.3 s (Abnormal) Range: 11.7-14.9 :26 Prothrombin Time w/INR Comments: [facility] [address] [place], [place], [phone](201) INR 2.8 (Normal) PROTIME 29.3 s (Abnormal) Range: 11.7-14.9 49-Vye-117339:50 Prothrombin Time w/INR Comments: [facility] [address] [place], [place], [phone](222) INR 2.7 (Normal) PROTIME 28.7 s (Abnormal) Range: 11.7-14.9 :35 Prothrombin Time w/INR Comments: [facility] [address] [place], [place], [phone] INR 2.9 (Normal) PROTIME 30.2 s (Abnormal) Range: 11.7-14.9 :44 Prothrombin Time w/INR Comments: [facility] [address] [place], [address] INR 2.9 (Normal) PROTIME 30.1 s (Abnormal) Range: 11.7-14.9 :55 Prothrombin Time w/INR Comments: [facility] [address] [place], [address] INR 2.8 (Normal) PROTIME 29.4 s (Abnormal) Range: 11.7-14.9 :10 Prothrombin Time w/INR Comments: [facility] [address] [place], [address] INR 2.4 (Normal) PROTIME 26.2 s (Abnormal) Range: 11.7-14.9 :09 Prothrombin Time w/INR Comments: [facility] [address] [place], [address] INR 1.1 (Normal) PROTIME 14.0 s (Normal) Range: 11.7-14.9 :29 Prothrombin Time w/INR Comments: RESULT(S) PREVIOUSLY REPORTED ON MANUAL REQUISITION DURINGDOWNTIME.[facility] [address] [place], [address] INR 1.3 (Normal) PROTIME 16.4 s (Abnormal) Range: 11.7-14.9 :30 Prothrombin Time w/INR Comments: [facility] [address] [place], [address] INR 2.0 (Normal) PROTIME 22.9 s (Abnormal) Range: 11.7-14.9 :01 Prothrombin Time w/INR Comments: [facility] [address] [place], [address] INR 1.5 (Normal) PROTIME 18.0 s (Abnormal) Range: 11.7-14.9 :46 Prothrombin Time w/INR Comments: [facility] [address] [place], [address] INR 1.9 (Normal) PROTIME 22.2 s (Abnormal) Range: 11.7-14.9 41-Ynx-925775:25 Prothrombin Time w/INR Comments: [facility] [address] [place], [address] INR 1.9 (Normal) PROTIME 22.0 s (Abnormal) Range: 11.7-14.9 :59 Prothrombin Time w/INR Comments: [place] [address] [place], [place], [phone] INR 2.0 (Normal) PROTIME 22.8 s (Abnormal) Range: 11.7-14.9 :58 Prothrombin Time w/INR Comments: [address] [place], [place], [phone] INR 1.8 (Normal) PROTIME 20.7 s (Abnormal) Range: 11.7-14.9 99-Gow-107562:31 Prothrombin Time w/INR Comments: [address], [address] INR 1.7 (Normal) PROTIME 19.9 s (Abnormal) Range: 11.7-14.9 21-Exf-710398:20 Prothrombin Time w/INR Comments: [address] [place], [place], [phone] INR 2.6 (Normal) PROTIME 27.9 s (Abnormal) Range: 11.7-14.9 :39 Prothrombin Time w/INR Comments: [place] [address] [place], [place], [address] INR 2.9 (Normal) PROTIME 30.5 s (Abnormal) Range: 11.7-14.9 01-Rws-234033:03 Rapid Flu (32787 x 2) Influenza A Ag neg (Normal) 47-Lah-001377:00 Prothrombin Time w/INR Comments: [address] [place], [place], [phone] ; See pt message INR 3.7 (Abnormal) Comments: CRITICAL VALUE VERIFIED. CALLED TO KOLTON 05/31/17 1130 Nii Lind.RESULTS READ BACK BY SAME. PROTIME 35.0 s (Abnormal) Range: 11.7-14.9 :21 Prothrombin Time w/INR Comments: [address] [facility], [address] INR 4.7 (Abnormal) Comments: CRITICAL VALUE VERIFIED. CALLED TO GEOVANNI AT [facility]05/24/17 0956 Violeta Aide.RESULTS READ BACK BY DAVID . PROTIME 42.4 s (Abnormal) Range: 11.7-14.9 50-Jjh-642369:27 Prothrombin Time w/INR Comments: [facility] [address] [place], [address] INR 1.9 (Normal) PROTIME 20.9 s (Abnormal) Range: 11.7-14.9 :42 Prothrombin Time w/INR Comments: [facility] [address] [place], [address] INR 4.3 (Abnormal) Comments: CRITICAL VALUE VERIFIED. CALLED TO 05/10/17 0830 Josue Velazquez.RESULTS READ BACK BY . PROTIME 39.8 s (Abnormal) Range: 11.7-14.9 :18 Prothrombin Time w/INR Comments: [facility] [address] [place], [address] INR 2.4 (Normal) PROTIME 24.8 s (Abnormal) Range: 11.7-14.9 :18 Prothrombin Time w/INR Comments: [facility] [address] [place], [address] INR 2.4 (Normal) PROTIME 25.2 s (Abnormal) Range: 11.7-14.9 03-Ggw-379113:00 Prothrombin Time w/INR Comments: [facility] [address] [place], [address] INR 2.5 (Normal) PROTIME 25.8 s (Abnormal) Range: 11.7-14.9 :32 Prothrombin Time w/INR Comments: [facility] [address] [place], [address] INR 2.1 (Normal) PROTIME 22.7 s (Abnormal) Range: 11.7-14.9 :23 Prothrombin Time w/INR Comments: [facility] [address] [place], [address] INR 2.3 (Normal) PROTIME 24.6 s (Abnormal) Range: 11.7-14.9 :14 Prothrombin Time w/INR Comments: [facility] [address] [place], [address] INR 2.0 (Normal) PROTIME 21.9 s (Abnormal) Range: 11.7-14.9 :18 Prothrombin Time w/INR Comments: [facility] [address] [place], [address] INR 2.5 (Normal) PROTIME 25.6 s (Abnormal) Range: 11.7-14.9 :39 Prothrombin Time w/INR Comments: [facility] [address] [place], [address] INR 2.1 (Normal) PROTIME 22.7 s (Abnormal) Range: 11.7-14.9 :40 Prothrombin Time w/INR Comments: [place] [address] [place], [address] INR 2.6 (Normal) PROTIME 26.8 s (Abnormal) Range: 11.7-14.9 :40 Prothrombin Time w/INR Comments: [facility] [address] [place], [address] INR 2.2 (Normal) PROTIME 23.8 s (Abnormal) Range: 11.7-14.9 :21 Prothrombin Time w/INR Comments: [facility] [address] [place], [address] INR 1.8 (Normal) PROTIME 20.1 s (Abnormal) Range: 11.7-14.9 :30 Prothrombin Time w/INR Comments: [facility] [address] [place], [phone] INR 3.0 (Normal) PROTIME 30.2 s (Abnormal) Range: 11.7-14.9 :45 Prothrombin Time w/INR Comments: [facility] [address] [place], [phone] INR 2.9 (Normal) PROTIME 29.1 s (Abnormal) Range: 11.7-14.9 :52 Prothrombin Time w/INR Comments: [facility] [address] [place], [address] INR 1.4 (Normal) PROTIME 17.0 s (Abnormal) Range: 11.7-14.9 :27 Prothrombin Time w/INR Comments: [facility] [address] [place], [address] INR 2.0 (Normal) PROTIME 21.7 s (Abnormal) Range: 11.7-14.9 98-Ucu-964603:21 Prothrombin Time w/INR Comments: [facility] [address] [place], [address] INR 2.3 (Normal) PROTIME 24.1 s (Abnormal) Range: 11.7-14.9 :43 Prothrombin Time w/INR Comments: [facility] [address] [place], [phone] INR 2.9 (Normal) PROTIME 29.1 s (Abnormal) Range: 11.7-14.9 :47 Prothrombin Time w/INR Comments: [facility] [address] [place], [phone] INR 2.3 (Normal) PROTIME 24.0 s (Abnormal) Range: 11.7-14.9 :25 CBC W/Diff, Automated Comments: [facility] [address] [place], [phone] ; see other message Absolute Lymph 2.07 [...] Range: 4.4-11.0 07-Jul-20167:25 Comprehensive Metabolic Profil Comments: [facility] [address] [place], [place], [address] GAP 3 (Abnormal) Range: 5-15 CO2 28.0 [...] Range: 70-110 :25 Prothrombin Time w/INR Comments: [facility] [address] [place], [place], [phone]) INR 3.5 (Abnormal) Comments: CRITICAL VALUE VERIFIED. CALLED TO PATRICE Longoria07/07/16 0834 Radha Calderon.RESULTS READ BACK BY SAME . PROTIME 33.9 s (Abnormal) Range: 11.7-14.9 :25 Thyroid Stim Hormone (TSH) Comments: [facility] [address] [place], [place], [phone] TSH 3.25 {uIU/mL} (Normal) Range: 0.358-3.74 :47 Prothrombin Time w/INR Comments: [facility] [address] [place], [place], [phone]90) INR 2.6 (Normal) Comments: ADDENDA: handled by Dr. Phillips PROTIME 27.5 s (Abnormal) Range: 11.7-14.9 :32 Prothrombin Time w/INR Comments: [facility] [address] [place], [address] INR 2.3 (Normal) PROTIME 25.5 s (Abnormal) Range: 11.7-14.9 :15 Prothrombin Time w/INR Comments: [facility] [address] [place], [address] INR 2.6 (Normal) PROTIME 27.7 s (Abnormal) Range: 11.7-14.9 :29 Prothrombin Time w/INR Comments: [place] [address] [place], [address] INR 1.3 (Normal) PROTIME 16.7 s (Abnormal) Range: 11.7-14.9 :19 Prothrombin Time w/INR Comments: [place] [address] [place], [address] INR 2.1 (Normal) PROTIME 23.3 s (Abnormal) Range: 11.7-14.9 :14 Prothrombin Time w/INR Comments: [place] [address] [place], [address] INR 2.0 (Normal) PROTIME 22.5 s (Abnormal) Range: 11.7-14.9 :21 Prothrombin Time w/INR Comments: [place] [address] [place], [address] INR 2.7 (Normal) PROTIME 28.5 s (Abnormal) Range: 11.7-14.9 :30 Prothrombin Time w/INR Comments: [place] [address] [place], [address] INR 2.4 (Normal) PROTIME 25.9 s (Abnormal) Range: 11.7-14.9 :41 Prothrombin Time w/INR Comments: [facility] [address] [place], [address] INR 2.5 (Normal) PROTIME 26.9 s (Abnormal) Range: 11.7-14.9 :09 Prothrombin Time w/INR Comments: [facility] [id number] [place], [address] INR 3.4 (Normal) PROTIME 34.4 s (Abnormal) Range: 11.7-14.9 :11 Prothrombin Time w/INR Comments: [facility] [address] [place], [address] INR 2.5 (Normal) PROTIME 26.6 s (Abnormal) Range: 11.7-14.9 [id number] Prothrombin Time w/INR Comments: [facility] [address] [place], [address] INR 1.5 (Normal) PROTIME 18.1 s (Abnormal) Range: 11.7-14.9 :12 Prothrombin Time w/INR Comments: [facility] [address] [place], [address] INR 1.1 (Normal) PROTIME 14.4 s (Normal) Range: 11.7-14.9 :51 Prothrombin Time w/INR Comments: [facility] [address] [place], [address] INR 3.6 (Abnormal) Comments: CRITICAL VALUE REPEATED AND VERIFIED. CALLED TO Maycol DAVISON02/25/15 1001 Elsie Longoria.RESULTS READ BACK BY MARGUERITE . PROTIME 35.3 s (Abnormal) Range: 11.7-14.9 :23 Prothrombin Time w/INR Comments: [facility] [address] [place], [place], [address] INR 3.3 (Normal) PROTIME 33.3 s (Abnormal) Range: 11.7-14.9 :13 Prothrombin Time w/INR Comments: [place] [address] [place], [address] INR 2.4 (Normal) PROTIME 26.5 s (Abnormal) Range: 11.7-14.9 :32 Prothrombin Time w/INR Comments: [facility] [address] [place], [address] INR 1.4 (Normal) PROTIME 17.8 s (Abnormal) Range: 11.7-14.9 :09 Prothrombin Time w/INR Comments: [facility] [address] [place], [address] INR 1.2 (Normal) PROTIME 15.9 s (Abnormal) Range: 11.7-14.9 :12 Prothrombin Time w/INR Comments: [facility] [address] [place], [address] INR 2.4 (Normal) PROTIME 26.4 s (Abnormal) Range: 11.7-14.9 :20 Prothrombin Time w/INR Comments: [facility] [address] [place], [address] INR 2.2 (Normal) PROTIME 24.5 s (Abnormal) Range: 11.7-14.9 :11 Prothrombin Time w/INR Comments: Test performed at:[facility] [address] [place] [address] INR 2.2 (Normal) PROTIME 24.1 s (Abnormal) Range: 11.7-14.9 :29 Prothrombin Time w/INR Comments: Test performed at:[facility] [address] [place] [address] INR 3.7 (Abnormal) Comments: CRITICAL VALUE REPEATED AND VERIFIED. CALLED TO KIKE WOMACK12/21/14 Frida Kumar.RESULTS READ BACK BY SAME . PROTIME 36.5 s (Abnormal) Range: 11.7-14.9 :25 Prothrombin Time w/INR Comments: Test performed at:[facility] [address] [place] [address] INR 2.5 (Normal) PROTIME 27.1 s (Abnormal) Range: 11.7-14.9 02-Etx-95358:23 Miscellaneous Lab Procedure Comments: Comments: [id number] PTH PLUS CALCIUM LAV AND RED RFTest(s) Ordered: [id number] PTH PLUS CALCIUM LAV AND RED RFTest performed at:[facility] [address] [place] [address] [facility] Comments: TEST RESULT LIMITSCa+PTH Intact Calcium, Serum [...] - 65 < 8.6 TESTING PERFORMED AT [facility]. ORIGINAL REPORT ON FILE IN LAB CONTAINS AD DITIONAL TEST SITE INFORMATION. :23 Prothrombin Time w/INR Comments: Test performed at:[facility] Cy[address]fem[address] [place] [id number] INR 4.0 (Abnormal) Comments: CRITICAL VALUE REPEATED AND VERIFIED. CALLED TO RAWLGQ42/11/15 0933 Fletcher Foote.RESULTS READ BACK BY SAME . PROTIME 38.3 s (Abnormal) Range: 11.7-14.9 :23 Vitamin D 1,25-Dihydroxy Comments: Test performed at:[facility] [address] [place] [address] VITD 1,25 94132 55.5 pg/mL (Normal) Range: 19.9-79.3 Comments: Performed at: [facility] [address] [id number] Director: Juan Ontiveros MD, Phone: [phone] :23 Vitamin D,25 Hydroxy Comments: Test performed at:[facility] [address] [place], [place] [id number] Vitamin D 25-OH 70.3 ng/mL (Normal) Comments: Vitamin D 25(OH) Status Range Deficiency <20 ng/mL (50nmol/L) Insuffciency 20 - 30 ng/mL (50 - 75 nmol/L) Sufficiency 30 - 100 ng/mL (75 - 250 nmol/L) Toxicity >100 ng/mL (>250 nmol/L) :04 Prothrombin Time w/INR Comments: Test performed at:[facility] [address] [place] [address] INR 2.1 (Normal) PROTIME 23.5 s (Abnormal) Range: 11.7-14.9 :12 Prothrombin Time w/INR Comments: Test performed at:[facility] [address] [place] [address] INR 1.6 (Normal) PROTIME 18.9 s (Abnormal) Range: 11.7-14.9 :10 Prothrombin Time w/INR Comments: Test performed at:[facility] [address] [place] [address] INR 1.1 (Normal) PROTIME 14.1 s (Normal) Range: 11.7-14.9 16-Jer-832374: ENDOMETRIAL BX/CURETTINGS See Note (Normal) Comments: Test performed at:[facility] [address] [place] [address] 49 Comments: Patient: ANNETTEYAHAIRA JULIEN : 1950 (64/F) Acct Num: [id number] Phys: Aliza Santana MD Unit Num: [id number] Loc: [facility] Specimen: [id number] Received: 11/26/14 - 7 Spec Type: EN DOM BX/C TISSUES TISSUES: GROSS DESCRIPTION Received is one container labeled with the patient name and designated endometrial curettings. The specimen consists of scant fragments of sahni mucoid tissue measuring less than 0.1 cm in greatest dimension. It is doubtful that the specimen will survive processing. The specimen is totally submitted inone cassette. / SJ: 11/26/14 TC: 5 CPT: 70954 HEADER OPERATION: Hysteroscopy, diagnostic, D AND C PRE-OP DIAGNOSIS: Postmenopausal bleeding TISSUE SUBMITTED: Endometrial curettings MICROSCOPIC DESCRIPTION Slides are reviewed. MICROSCOPIC DIAGNOSIS Endometrial curettings: Scant strips of benign endometrial epithelium and superficial fragment of benign endometrial tissue, consistent with atrophic endometri um. Fragments of benign endocervical epithelium. SJ: 11/27/14 Signed Jeffy Suazo 11/27/14 <signature on file> 61-Wbw-072295:39 INR Fingerstick Comments: Test performed at:[facility] [address] [place] [address] INR ISTAT 1.10 (Normal) Comments: Critical Value > 3.5; ADDENDA: this is for pre-op, will resume tomorrow and recheck it in 1 week. 94-Iht-209218:39 Prothrombin Time Fingerstick Comments: Test performed at:[facility] [address] [place] [address] PROTIME ISTAT 13.2 {SEC} (Normal) Range: 11.9-14.4 Comments: Reference Range 11.9 - 14.4 29-Epx-226028:41 Partial Thromboplast Time Comments: Test performed at:[facility] [address] [place] [address] PTT 40.9 s (Abnormal) Range: 24.1-36.2 28-Cji-237101:41 Prothrombin Time w/INR Comments: Test performed at:[facility] [address] [place] [address] INR 2.6 (Normal) PROTIME 27.4 s (Abnormal) Range: 11.7-14.9 :41 Type AND Screen Comments: Surgery Date: 11/26/14Hx of Preganancy in last 3 Months NoEver experience any problems with transfusion(s)? NHx of Transfusion in last 3 Months NReason for Type AND Screen/Red Cells: SURGERYSURGI ADELSO PROCEDURE: .Test performed at:[facility] [address] [place] [address] Antibody Screen NEGATIVE (Normal) BLOOD TYPE GEL A POSITIVE (Normal) 72-Xxh-22073:09 CBC W/Diff, Automated Comments: Test performed at:[facility] [address] [place] [address] Absolute Lymph 2.07 {X10_3/ul} (Normal) [...] :09 Comprehensive Metabolic Profil Comments: Test performed at:[facility] [address] [place] [address] GAP 6 (Normal) Range: 5-15 CO2 29.0 [...] Comments: Please note revised CREATININE reference range oyiahntzs78/22/2015. BUN 19 mg/dL (Abnormal) Range: 7-18 GLU 75 mg/dL (Normal) Range: 70-110 :09 Prothrombin Time w/INR Comments: Test performed at:[facility] [address] [place] [address] INR 2.4 (Normal) PROTIME 25.8 s (Abnormal) Range: 11.7-14.9 :13 Prothrombin Time w/INR Comments: Test performed at:[place] [address] [place] [address] INR 1.8 (Normal) PROTIME 21.2 s (Abnormal) Range: 11.7-14.9 :06 Prothrombin Time w/INR Comments: Test performed at:[facility] [address] [place] [address] INR 2.2 (Normal) PROTIME 24.4 s (Abnormal) Range: 11.7-14.9 :50 Prothrombin Time w/INR Comments: Test performed at:[address] [place] [address] INR 1.7 (Normal) PROTIME 20.3 s (Abnormal) Range: 11.7-14.9 84-Stp-586982:16 Estrogen, Total, Serum Comments: Comments: TSHHas Patient had Radioactive Injection for X-ray?: NTest performed at:[facility] [address] [place] [address] ESTROGEN 4549 54 pg/mL (Normal) Comments: Prepubertal <40 Female Cycle: 1-10 Days 61 - 394 11-20 Days 122 - 437 21-30 Days 156 - 350 Post-Menopausal <40 HMG Treatment for Ovulation Induction: 400 - 800Performed at: - [facility] [id number] Director: Juan Ontiveros MD, Phone: [phone] 83-Hjc-486314:16 Free T3 Comments: Comments: TSHTest performed at:[facility] [address] [place] [address] FREE T3 2.6 pg/mL (Normal) Range: 2.18-3.98 86-Vse-321296:16 Hemoglobin A1c Comments: Test performed at:[facility] [address] [place] [address] HGB A1C 5.0 % (Normal) Range: 4.2-6.3 43-Lza-304449:16 Progesterone Level Comments: Test performed at:[facility] [address] [place] [address] Progesterone 0.48 ng/mL (Normal) Comments: Progesterone Reference Table: UNITS Female: Follicular 0.15 - 1.40 ng/mL Luteal 3.34 - 25.56 ng/mL Mid-luteal 4.44 - 28.03 ng/mL Postmenopausal 0.0 - 0.73 ng/mL : 1st Trimester 11.22 - 90.00 ng /mL 2nd Trimester 25.55 - 89.40 ng/mL 3rd Trimester 48.40 -422.50 ng/mL 88-Dqf-377180:16 T4 Free Direct Comments: Comments: TSHTest performed at:[facility] [address] [place] [address] T4 FREE DIRECT 1.16 ng/dL (Normal) Range: 0.76-1.46 05-Ods-181775:16 Testosterone, Serum Total Comments: Test performed at:[facility] [address] [place] [address] ; ordered by Dr. Santana Testosterone 35 ng/dL (Normal) Range: 14-76 11-Alg-990445:16 Thyroid Stim Hormone (TSH) Comments: Comments: TSHTest performed at:[facility] [address] [place] [address] TSH 1.53 {uIU/mL} (Normal) Range: 0.358-3.74 21-Epd-17180:11 Prothrombin Time w/INR Comments: Test performed at:[facility] [address] [place] [address] INR 1.8 (Normal) PROTIME 20.9 s (Abnormal) Range: 11.7-14.9 :27 Prothrombin Time w/INR Comments: Test performed at:[facility] [address] [place] [address] INR 2.2 (Normal) PROTIME 24.8 s (Abnormal) Range: 11.7-14.9 :08 Prothrombin Time w/INR Comments: Test performed at:[facility] [address] [place] [address] INR 4.8 (Abnormal) Comments: CRITICAL VALUE REPEATED AND VERIFIED. CALLED TO RADHA WOMACK10/01/14 0855 Nii Lind.RESULTS READ BACK BY DAVID. PROTIME 44.0 s (Abnormal) Range: 11.7-14.9 :14 Prothrombin Time w/INR Comments: Test performed at:[facility] [address] [facility] [place] [address] INR 2.6 (Normal) PROTIME 27.9 s (Abnormal) Range: 11.7-14.9 :16 Prothrombin Time w/INR Comments: Test performed at:[facility] [address] [place] [address] INR 5.0 (Abnormal) Comments: CRITICAL VALUE REPEATED AND VERIFIED. CALLED TO Tami DAVISON09/21/14 0809 Elsie Longoria.RESULTS READ BACK BY CONNER . PROTIME 45.5 s (Abnormal) Range: 11.7-14.9 :10 Prothrombin Time w/INR Comments: Test performed at:[facility] [address] [place] [address] INR 3.2 (Normal) PROTIME 32.8 s (Abnormal) Range: 11.7-14.9 :24 Miscellaneous Lab Procedure Comments: Comments: [id number] HHV-6 IGM,SST,REFRIGERATETest(s) Ordered: [id number] HHV-6 IGM,SST,REFRIGERATETest performed at:[facility] [address] [place] [address] MISC Comments: TEST RESULT UNITS REFERENCE INTERVALHuman Herpes Virus Type 6 IgM <1:10 Neg:<1:10Results for this test are for research purposes only by LAB (Normal) theassay's meter reader inspector. The performance characteristics ofthis product have not been established. Results should notbe used as a diagnostic procedure without confirmation ofthe diagnosis by another med TEST ically established diagnosticproduct or procedure. TESTING PERFORMED AT [facility]. ORIGINAL REPORT ON FILE IN LAB CONTAINS ADDITIONAL TEST SITE IN FORMATION. :18 ANTINUCLEAR ANTIBODIES DIRECT Comments: Test performed at:[place] [address] YURIY-DIRECT Negative (Normal) Comments: Performed at: [address] [id number] Director: Narendra Covarrubias PhD, Phone: [phone] :18 CMV Acute Antibody IgM Comments: Test performed at:[address] [place], [place] [address] CMVIgM AB < 30.0 AU/mL (Normal) Range: 0.0-29.9 Comments: Negative <30.0 Equivocal 30.0 - 34.9 Positive >34.9A positive result is generally indicative of acuteinfection, react ivation or persistent IgM production.Performed at: [address] [id number] Director: Narendra Covarrubias PhD, Phone: [phone] at: [facility] [address] [place], [place] [id number] Director: Juan Ontiveros MD, Phone: [phone] at: [address] [place] [address] [address] [place], [place] [id number] Director: Bill Tao PhD, Phone: [phone] :18 CMV Antibody IgG Comments: Test performed at:[facility] [address] [facility] [place] [address] CMV AB IgG > 10.00 U/mL (Abnormal) Range: 0.00-0.59 Comments: Negative <0.60 Equivocal 0.60 - 0.69 Positive >0.69 :18 EBV Acute Prof IgG / IgM Comments: Test performed at:[facility] [address] [place] [address] INTERPRETATION Comment (Normal) Comments: EBV Interpretation ChartInterpretation EBV-IgM EA(D)-IgG VCA-IgG EBNA-IgGEBV Seronegative - - - -Early Phase + - - -Acute Primary + +or- + -InfectionConvalescence/Past - +or- + +InfectionReactivated +or- + + +Infection + Antibody Present - Antibody Absent EB-NAg [id number] 71.5 U/mL (Abnormal) Range: 0.0-17.9 Comments: Negative <18.0 Equivocal 18.0 - 21.9 Positive >21.9 EB-VCA [id number] > 600.0 U/mL (Abnormal) Range: 0.0-17.9 Comments: Negative <18.0 Equivocal 18.0 - 21.9 Positive >21.9 EB-EA IgG [id number] 21.1 U/mL (Abnormal) Range: 0.0-8.9 Comments: Hepatitis A, Hepatitis C and HIV antibodies may cross-reactwith this assay. Negative < 9.0 Equivocal 9.0 - 10.9 Positive >10.9 EB-VCA [id number] < 36.0 U/mL (Normal) Range: 0.0-35.9 Comments: Negative <36.0 Equivocal 36.0 - 43.9 Positive >43.9 :18 Ferritin Comments: Test performed at:[facility] [address] [place] [address] FERRITIN 28 ng/mL (Normal) Range: 8-252 :18 HLA B27 Negative (Normal) Comments: Test performed at:[facility] [address] [place] [address] Comments: HLA-B*27 NegativeHLA Lab CLIA ID Number [id number] test was performed using PCR (Polymerase ChainReaction)/SSOP (Sequence Specific Oligonucleotide Probes)technique. SBT (Sequence Based Typing) and/ or SSP(Sequence Specific Primers) may be used as supplementalmethods when necessary. Please contact HLA CustomerService at if you have any questions. Director of HLA Laboratory Dr Bill Tao, PhD :18 Homocysteine Comments: Test performed at:[facility] [address] [facility] [place] [address] HOMOCYSTEINE 6.7 umol/L (Normal) Range: 3.2-10.7 :18 IgG Subclasses Comments: Test performed at:[facility] [address] [facility] [place] [address] IgG, SUBCLASS 4 1 mg/dL (Normal) Range: 1-291 Comments: Results verified by repeat testing IgG, SUBCLASS 3 52 mg/dL (Normal) Range: 41-129 IgG, SUBCLASS 2 145 mg/dL (Normal) Range: 117-747 IgG, SUBCLASS 1 264 mg/dL (Abnormal) Range: 422-1292 IGG, QUANT 520 mg/dL (Abnormal) Range: 700-1600 :18 Miscellaneous Lab Procedure Comments: Comments: [id number] HHV-6 IGG,SST,REFRIGERATETest(s) Ordered: [id number] HHV-6 IGG,SST,REFRIGERATEList Test(s) Ordered by Physician: IGA SUBCLASSES, #[id number], SERUM,RM TEMP, 2 MLTest performed at:[facility] [address] [facility] [place] [address] MISC Comments: TEST RESULT UNITS REFERENCE INTERVALHHV 6 IgG Antibodies 2.42 High index Negative <0.76 Equivocal 0.76 - 0.99 LAB (Normal) Positive >0.99Results for this test are for research purposesonly by the assay's meter reader inspector. The performancecharacteristics of this product have not beenestablishe TEST d. Results should not be used as adiagnostic procedure without confirmation of thediagnosis by another medically established diagnosticproduct or procedure. TESTING PERFORMED AT [facility]. ORIGINAL REPORT ON FILE IN LAB CONTAINS ADDITIONAL TEST SITE INFORMATION. :18 Miscellaneous Lab Procedure Comments: Comments: [id number] HLA-DR4,SST,REFRIGERATETest(s) Ordered: [id number] HLA-DR4,SST,REFRIGERATETest performed at:[facility] [address] [place] [address] [facility] Comments: TEST RESULT UNITS REFERENCE INTERVALHLBrijesh DRB1 (IR) DRB1 DRB1*07:NIRAV DRB1 DRB1*- Code Translation: NIRAV 07:01/07:09/07:10N/07:11/07:14/07:22 LAB (Normal) /07:24 /07:25/07:26N/07:27/07:28/07:29HLA allele interpretation for all loci based on IMGT/HLAdatabase version 3.15A [facility] CLIA ID Number [id number] TEST TESTING PERFORMED AT [facility]. ORIGINAL REPORT ON FILE IN LAB CONTAINS ADDITIONAL TEST SITE INFORMATION. HLA Methodology:HLA result s were obtained using sequence based typing (SBT),sequence specific oligonucleotide probes (SSOP), and/orsequence specific primers (SSP) as needed to obtain therequired resolution. Please contact [facility] Service [phone] if you have any questions.Director of [facility] LaboratoryDr Bill Tao, PhD :18 Miscellaneous Lab Procedure 2 Comments: Comments: [id number] HHV- 6 IGG,SST,REFRIGERATETest(s) Ordered: [id number] HHV-6 IGG,SST,REFRIGERATEList Test(s) Ordered by Physician: IGA SUBCLASSES, #[id number], SERUM,RM TEMP, 2 MLTest performed at:[facility] [address] [facility] [place] [address] [facility] Comments: TEST RESULT UNITS REFERENCE INTERVALIgA, Subclasses (1-2) Immunoglobulin A, Qn, Serum 161 mg/dL 91 - 414 IgA, Subclass 1 132.0 mg/dL LAB (Normal) 73.2 - 301.2 IgA, Subclass 2 6.2 Low mg/dL 13.4 - 97.9 TESTING PERFORMED AT [facility]. ORIGINAL REPORT ON FILE IN LAB CONTAINS MANFRED TEST TIONAL TEST SITE INFORMATION. 2 :18 Prothrombin Time w/INR Comments: Test performed at:[facility] [address] [place] [address] INR 1.9 (Normal) PROTIME 22.3 s (Abnormal) Range: 11.7-14.9 :18 Vitamin B12 664 pg/mL (Normal) Comments: Test performed at:[facility] [address] [place] [address] Range: 211-911 :18 Vitamin D,25 Hydroxy Comments: Test performed at:[facility] [address] [place] [address] Vitamin D 25-OH 58.8 ng/mL (Normal) Comments: Vitamin D 25(OH) Status Range Deficiency <20 ng/mL (50nmol/L) Insuffciency 20 - 30 ng/mL (50 - 75 nmol/L) Sufficiency 30 - 100 ng/mL (75 - 250 nmol/L) Toxicity >100 ng/mL (>250 nmol/L) 03-Sep-20146:13 CBC W/Diff, Automated Comments: Test performed at:[facility] [address] [place] [address] Absolute Lymph 2.08 {X10_3/ul} (Normal) [...] :13 Comprehensive Metabolic Profil Comments: Test performed at:[facility] [address] [place] [address] GAP 7 (Normal) Range: 5-15 CO2 [...] 70-110 :13 Lipid Profile Comments: Test performed at:[facility] [address] [place] [place] [address] VLDL 9 mg/dL (Normal) Range: 5-40 LDL [...] :13 Prothrombin Time w/INR Comments: Test performed at:[facility] [address] [place] [address] INR 1.5 (Normal) PROTIME 18.4 s (Abnormal) Range: 11.7-14.9 :17 INR Fingerstick Comments: Test performed at:[facility] [address] [place] [address] INR ISTAT 1.50 (Normal) Comments: Critical Value > 3.5 :17 Prothrombin Time Fingerstick Comments: Test performed at:[facility] [address] [place] [address] PROTIME ISTAT 17.6 {SEC} (Abnormal) Range: 11.9-14.4 Comments: Reference Range 11.9 - 14.4 :09 INR Fingerstick Comments: Test performed at:[facility] [address] [place] [address] INR ISTAT 1.40 (Normal) Comments: Critical Value > 3.5 :09 Prothrombin Time Fingerstick Comments: Test performed at:[facility] [address] [place] [address] PROTIME ISTAT 17.1 {SEC} (Abnormal) Range: 11.9-14.4 Comments: Reference Range 11.9 - 14.4 :09 Prothrombin Time w/INR Comments: Test performed at:[facility] [address] [place] [address] INR 1.1 (Normal) PROTIME 14.6 s (Normal) Range: 11.7-14.9 :11 INR Fingerstick Comments: Test performed at:[facility] [address] [place] [address] INR ISTAT 1.20 (Normal) Comments: Critical Value > 3.5 :11 Prothrombin Time Fingerstick Comments: Test performed at:[facility] [address] [place] [address] PROTIME ISTAT 13.9 {SEC} (Normal) Range: 11.9-14.4 Comments: Reference Range 11.9 - 14.4 :06 INR Fingerstick Comments: Test performed at:[facility] [address] [place] [address] INR ISTAT 1.10 (Normal) Comments: Critical Value > 3.5 :06 Prothrombin Time Fingerstick Comments: Test performed at:[facility] [address] [place] [address] PROTIME ISTAT 13.6 {SEC} (Normal) Range: 11.9-14.4 Comments: Reference Range 11.9 - 14.4 :28 INR Fingerstick Comments: Test performed at:[facility] [address] [place] [address] INR ISTAT 2.20 (Normal) Comments: Critical Value > 3.5 :28 Prothrombin Time Fingerstick Comments: Test performed at:[facility] [address] [place] [address] PROTIME ISTAT 25.0 {SEC} (Abnormal) Range: 11.9-14.4 Comments: Reference Range 11.9 - 14.4 :19 INR Fingerstick Comments: Test performed at:[facility] [address] [place] [address] INR ISTAT 2.70 (Normal) Comments: Critical Value > 3.5 :19 Prothrombin Time Fingerstick Comments: Test performed at:[facility] [address] [place] [address] PROTIME ISTAT 30.6 {SEC} (Abnormal) Range: 11.9-14.4 Comments: Reference Range 11.9 - 14.4 :09 Prothrombin Time w/INR Comments: Test performed at:[facility] [address] [place] [address] INR 3.2 (Normal) PROTIME 32.6 s (Abnormal) Range: 11.7-14.9 :22 Prothrombin Time w/INR Comments: Test performed at:[facility] [address] [place] [address] INR 2.6 (Normal) PROTIME 27.8 s (Abnormal) Range: 11.7-14.9 :22 Prothrombin Time w/INR Comments: Test performed at:[facility] [address] [place] [address] INR 3.0 (Normal) PROTIME 30.9 s (Abnormal) Range: 11.7-14.9 :12 Prothrombin Time w/INR Comments: Test performed at:[facility] [address] [place] [address] INR 3.4 (Normal) PROTIME 33.7 s (Abnormal) Range: 11.7-14.9 :10 Prothrombin Time w/INR Comments: Test performed at:[facility] [address] [place] [address] INR 3.7 (Abnormal) PROTIME 36.4 s (Abnormal) Range: 11.7-14.9 :20 Prothrombin Time w/INR Comments: Test performed at:[facility] [address] [place] [address] INR 3.0 (Normal) PROTIME 31.0 s (Abnormal) Range: 11.7-14.9 :10 Prothrombin Time w/INR Comments: Test performed at:[facility] R[address]ps[address]38 [facility] [place] [address] INR 3.0 (Normal) PROTIME 30.7 s (Abnormal) Range: 11.7-14.9 :04 Prothrombin Time w/INR Comments: Test performed at:[facility] Xuwhmqbtlq7916 [facility] [address] INR 1.7 (Normal) PROTIME 19.7 s (Abnormal) Range: 11.7-14.9 :17 Prothrombin Time w/INR Comments: Test performed at:[facility] Fexccbnsxy99[address] [facility] [place] [address] INR 1.8 (Normal) PROTIME 21.1 s (Abnormal) [...] Comments: Please note revised PROTIME reference range qanbudtwm79/14/15. 04-Fhh-17591:05 PT INR 3.0 (Normal) PTP 30.6 s (Abnormal) Range: 11.7-14.9 Comments: Please note revised PROTIME reference range mgwgegxcq73/14/15. :07 PT INR 5.6 (Abnormal) PTP 50.1 s (Abnormal) Range: 11.7-14.9 Comments: Please note revised PROTIME reference range tvmpvjyms49/14/15. :03 PT INR 2.5 (Normal) PTP 27.0 s (Abnormal) Range: 11.7-14.9 Comments: Please note revised PROTIME reference range yishwgqpy97/14/15. :03 PT INR 2.0 (Normal) PTP 23.0 s (Abnormal) Range: 11.7-14.9 Comments: Please note revised PROTIME reference range pwxspwnao45/14/15. :06 PT INR 2.1 (Normal) PTP 21.9 [...] 7.6 (Abnormal) Comments: TRIED TO CALL DR. FAST OFFICE, LEFT MESSAGE, 08/01/13 8:30LIZBETH.COOPERRESULTS CALLED TO [...] CHOL 287 mg/dL (Abnormal) Comments: <200 mg/dL Yfisoxsyu866-605 mg/dL Borderline>240 mg/dL High Risk TRIG 78 [...] 70-110 :08 PT Comments: DR BARNES ORDERED PAIGE BRAMBILA ORDERED PT CBC CMP INR 1.5 (Normal) [...] CRITICAL VALUE REPEATED AND VERIFIED. CALLED TO UUAYQPL70/14/14 0756 Jeovanny Serrano.RESULTS READ BACK BY OLIVIER . [...] CHOL 227 mg/dL (Abnormal) Comments: <200 mg/dL Igtljtclc090-412 mg/dL Borderline>240 mg/dL High Risk HDL 81 [...] CHOL 229 mg/dL (Abnormal) Comments: <200 mg/dL Vzvpnvept918-284 mg/dL Borderline>240 mg/dL High Risk :16 PT [...] Rodriguez M.D.September 21, 2012 at 11:00:07 AM [id number] Signed RU/RU If you are the referring physician and would like to consult with theradiologist who provided this interpretation, please contact Austyn Styles. at [phone]. If this radiologist is unavailable, youwillbe directed to another radiologist to as sist. If you are a patient with a question regarding this report, pleasecontactyour referring physician directly. Professional Interpretation Provided By: [employer], Phone ,Fax These documents contain legally protected [...] on 09/21/12 1106 Sign by: Laith Rodriguez 6-Orl-333714:40 CUUR URC See Note (Normal) Comments: This is an amended result. A prior result that was reported as final has been changed.09/07/12 1448 by NSTANSLOSPreviously reported as: FINAL COLONY COUNT <1000 ORGANISM 1: MIXED GRAM POSITIVE ORGANISMS 0-Pzp-447666:40 LYMEWB oZVQDRHR79A Absent (Normal) tLYMWBINTM Negative (Normal) Comments: Note: [...] are those recommended byCDC/ASTPHLD. p23=Osp C , d82=pgkwvkbym.Note:Sera from individuals with the following may cross reactin the Lyme Western Blot assays: other spirochetal diseases(periodontal disease, leptospirosis, relapsing fever, yaws,and pin ta); connective autoimmune (Rheumatoid Arthritis andSystemic Lupus Erythematosus and also individuals withAntinuclear Antibody); other infections (Angel MountainSpotted Fever; Desirae-Camargo Virus, and Cy tomegalovirus)..Performed at: [facility] [employer] [id number] Director: Juan Ontiveros MD, Phone: [phone] xGKFLBGI08U Absent (Normal) gYGQWDTO60Z Absent (Normal) bLJCEBCQ82R Absent (Normal) tUYJHJYQ05M Absent (Normal) tLYMWBINTG Negative (Normal) Comments: Positive: 5 of the followingBorrelia- specific bands:18,23,28,30,39,41,45,58,66, and 93.Negative: No bands or bandingpatterns which do notmeet positive criteria. qQLUVOOX54P Absent (Normal) cBTFOPWF94H Absent (Normal) mPOYWMMO05E Absent (Normal) vTNBNLFO72B Present (Abnormal) zRCXNQSO87U Absent (Normal) jRBPTBYY17U Absent (Normal) aPJCJUIE98G Absent (Normal) tZSMBNLO72Y Absent (Normal) :03 PT INR 2.9 (Normal) PTP 28.1 s (Abnormal) Range: 11.9-14.4 83-Ssz-459656:12 Microscopic Examination Comments: PATIENT NOT FASTINGPERFORMED BY: [facility] [id number] [facility] [id number] Bacteria Few (Normal) Mucus Threads Present (Normal) Epithelial Cells (non renal) 0-10 {/hpf} (Normal) Range: 0 - 10 RBC None seen {/hpf} (Normal) Range: 0 - 3 WBC None seen {/hpf} (Normal) Range: 0 - 5 38-Peb-335041:12 Lyme Disease Antibody W/ Comments: PATIENT NOT FASTINGPERFORMED BY: [employer] [id number] [facility] [id number] Reflex ([id number]) Lyme Ab Interp.,EIA Negative (Normal) Lyme IgG/IgM Ab <0.91 {index} (Normal) Range: 0.00-0.90 Comments: Negative <0.91 Equivocal 0.91 - 1.09 Positive >1.09 Note: The [facility] curren tly advises that Western blot testing be performed following all equivocal or positive EIA results. Final diagnosis should include appropriate clinical findi ngs and a positive EIA which is also positive by Western blot. 38-Lqi-829437:12 SED RATE ERYTHROCYTE ([id number]) Comments: PATIENT NOT FASTINGPERFORMED BY: [employer] [id number] [facility] [id number] Sedimentation Rate-Westergren 2 mm/h (Normal) Range: 0-40 64-Jti-022866:12 C-REACTIVE PROTEIN (19036) Comments: PATIENT NOT FASTINGPERFORMED BY: [employer] [id number] [facility] [id number] C-Reactive Protein, Quant 0.7 mg/L (Normal) Range: 0.0-4.9 82-Iua-456347:12 URINALYSIS, W/ MICRO (40012) Comments: PATIENT NOT FASTINGPERFORMED BY: [employer] [id number] [facility] [id number] Microscopic Examination See below: (Normal) Nitrite, Urine Negative (Normal) Urobilinogen,Semi-Qn 0.2 mg/dL (Normal) Range: 0.0-1.9 Bilirubin Negative (Normal) Occult Blood Negative (Normal) Ketones 3+ (Abnormal) Glucose Negative (Normal) Protein 1+ (Abnormal) WBC Esterase Negative (Normal) Appearance Clear (Normal) Urine-Color Yellow (Normal) pH 6.0 (Normal) Range: 5.0-7.5 Specific Nunda 1.025 (Normal) Range: 1.005-1.030 32-Xej-053728:12 TSH ([id number]) Comments: PATIENT NOT FASTINGPERFORMED BY: [employer] [id number] [facility] [id number] TSH 2.400 {uIU/mL} (Normal) Range: 0.450-4.500 21-Dhf-086830:12 METABOLIC PANEL, COMPREHENSIVE Comments: PATIENT NOT FASTINGPERFORMED BY: [employer] [id number] [facility] [id number] (14612) ALT (SGPT) 19 [iU]/L (Normal) Range: 0-32 [...] Glucose, Serum 91 mg/dL (Normal) Range: 65-99 54-Ash-456636:12 CBC WITH MANUAL DIFF Comments: PATIENT NOT FASTINGPERFORMED BY: [employer] [id number] [facility] [id number] Information: [id number] (43072) Immature Grans (Abs) 0.0 {x10E3/uL} (Normal) Range: [...] D deficiency has been defined by the [place] ofMedicine and an Endocrine Society practice guideline as alevel of serum 25-OH vitamin D less than 20 ng/mL (1,2).The Endocrine Society went on to further define vitamin Dinsufficiency as a level between 21 and 29 ng/mL (2).1. IOM ([place] of Medicine). 2010. Dietary reference intakes for calcium and D. [place]: The National Academies Press.2. Ana MF, Heriberto [place], Jayla BECKFORD, et al. Evaluation, treatment, and prevention of vitamin D deficiency: an Endocrine Society clinical practice guideline. JCEM. 2010; 96(7): 1911-30.Performed at: [address] [id number] Director: Narendra Covarrubias PhD, Phone: [phone] Plan of Care Name Dates Details Instructions [...] Planned Observations CBC, Platelets & Auto Diff ([id number])Indication: Leukopenia On: :00 Request CBC, Platelets & Auto Diff ([id number])Indication: Leukopenia On: :00 Request CBC, Platelets & Auto Diff ([id number])Indication: Leukopenia On: 13-Mar-2042 Request CBC, Platelets & Auto Diff ([id number])Indication: Leukopenia On: :00 Request CBC, Platelets & Auto Diff ([id number])Indication: Leukopenia On: :00 Request CBC, Platelets & Auto Diff ([id number])Indication: Leukopenia On: :00 Request CBC, Platelets & Auto Diff ([id number])Indication: Leukopenia On: 18-Mar-2041 Request CBC, Platelets & Auto Diff ([id number])Indication: Leukopenia On: :00 Request CBC, Platelets & Auto Diff ([id number])Indication: Leukopenia On: :00 Request CBC, Platelets & Auto Diff ([id number])Indication: Leukopenia On: :00 Request CBC, Platelets & Auto Diff ([id number])Indication: Leukopenia On: 23-Mar-2040 Request CBC, Platelets & Auto Diff ([id number])Indication: Leukopenia On: : Request CBC, Platelets & Auto Diff ([id number])Indication: Leukopenia On: :00 Request CBC, Platelets & Auto Diff ([id number])Indication: Leukopenia On: : Request CBC, Platelets & Auto Diff ([id number])Indication: Leukopenia On: 29-Mar-2039 Request CBC, Platelets & Auto Diff ([id number])Indication: Leukopenia On: : Request CBC, Platelets & Auto Diff ([id number])Indication: Leukopenia On: : Request CBC, Platelets & Auto Diff ([id number])Indication: Leukopenia On: : Request CBC, Platelets & Auto Diff ([id number])Indication: Leukopenia On: 03-Apr-2038 Request CBC, Platelets & Auto Diff ([id number])Indication: Leukopenia On: :00 Request CBC, Platelets & Auto Diff ([id number])Indication: Leukopenia On: :00 Request CBC, Platelets & Auto Diff ([id number])Indication: Leukopenia On: : Request CBC, Platelets & Auto Diff ([id number])Indication: Leukopenia On: 08-Apr-2037 Request CBC, Platelets & Auto Diff ([id number])Indication: Leukopenia On: :00 Request CBC, Platelets & Auto Diff ([id number])Indication: Leukopenia On: :00 Request CBC, Platelets & Auto Diff ([id number])Indication: Leukopenia On: :00 Request CBC, Platelets & Auto Diff ([id number])Indication: Leukopenia On: 13-Apr-2036 Request CBC, Platelets & Auto Diff ([id number])Indication: Leukopenia On: :00 Request CBC, Platelets & Auto Diff ([id number])Indication: Leukopenia On: : Request CBC, Platelets & Auto Diff ([id number])Indication: Leukopenia On: : Request CBC, Platelets & Auto Diff ([id number])Indication: Leukopenia On: 19-Apr-2035 Request CBC, Platelets & Auto Diff ([id number])Indication: Leukopenia On: : Request CBC, Platelets & Auto Diff ([id number])Indication: Leukopenia On: : Request CBC, Platelets & Auto Diff ([id number])Indication: Leukopenia On: :00 Request CBC, Platelets & Auto Diff ([id number])Indication: Leukopenia On: 24-Apr-2034 Request CBC, Platelets & Auto Diff ([id number])Indication: Leukopenia On: : Request CBC, Platelets & Auto Diff ([id number])Indication: Leukopenia On: : Request CBC, Platelets & Auto Diff ([id number])Indication: Leukopenia On: :00 Request CBC, Platelets & Auto Diff ([id number])Indication: Leukopenia On: 29-Apr-2033 Request CBC, Platelets & Auto Diff ([id number])Indication: Leukopenia On: :00 Request CBC, Platelets & Auto Diff ([id number])Indication: Leukopenia On: :00 Request CBC, Platelets & Auto Diff ([id number])Indication: Leukopenia On: :00 Request CBC, Platelets & Auto Diff ([id number])Indication: Leukopenia On: 04-May-2032 Request CBC, Platelets & Auto Diff ([id number])Indication: Leukopenia On: :00 Request CBC, Platelets & Auto Diff ([id number])Indication: Leukopenia On: :00 Request CBC, Platelets & Auto Diff ([id number])Indication: Leukopenia On: :00 Request CBC, Platelets & Auto Diff ([id number])Indication: Leukopenia On: 10-May-2031 Request CBC, Platelets & Auto Diff ([id number])Indication: Leukopenia On: 09-Feb-2031 Request CBC, Platelets & Auto Diff ([id number])Indication: Leukopenia On: :00 Request CBC, Platelets & Auto Diff ([id number])Indication: Leukopenia On: :00 Request CBC, Platelets & Auto Diff ([id number])Indication: Leukopenia On: 15-May-2030 Request CBC, Platelets & Auto Diff ([id number])Indication: Leukopenia On: 14-Feb-2030 Request CBC, Platelets & Auto Diff ([id number])Indication: Leukopenia On: :00 Request CBC, Platelets & Auto Diff ([id number])Indication: Leukopenia On: :00 Request CBC, Platelets & Auto Diff ([id number])Indication: Leukopenia On: 20-May-2029 Request CBC, Platelets & Auto Diff ([id number])Indication: Leukopenia On: 19-Feb-2029 Request CBC, Platelets & Auto Diff ([id number])Indication: Leukopenia On: :00 Request CBC, Platelets & Auto Diff ([id number])Indication: Leukopenia On: : Request CBC, Platelets & Auto Diff ([id number])Indication: Leukopenia On: 25-May-2028 Request CBC, Platelets & Auto Diff ([id number])Indication: Leukopenia On: 25-Feb-2028 Request CBC, Platelets & Auto Diff ([id number])Indication: Leukopenia On: :00 Request CBC, Platelets & Auto Diff ([id number])Indication: Leukopenia On: :00 Request CBC, Platelets & Auto Diff ([id number])Indication: Leukopenia On: 31-May-2027 Request CBC, Platelets & Auto Diff ([id number])Indication: Leukopenia On: 02-Mar-2027 Request CBC, Platelets & Auto Diff ([id number])Indication: Leukopenia On: :00 Request CBC, Platelets & Auto Diff ([id number])Indication: Leukopenia On: :00 Request CBC, Platelets & Auto Diff ([id number])Indication: Leukopenia On: 05-Jun-2026 Request CBC, Platelets & Auto Diff ([id number])Indication: Leukopenia On: 07-Mar-2026 Request CBC, Platelets & Auto Diff ([id number])Indication: Leukopenia On: :00 Request CBC, Platelets & Auto Diff ([id number])Indication: Leukopenia On: :00 Request CBC, Platelets & Auto Diff ([id number])Indication: Leukopenia On: 10-Jun-2025 Request CBC, Platelets & Auto Diff ([id number])Indication: Leukopenia On: 12-Mar-2025 Request CBC, Platelets & Auto Diff ([id number])Indication: Leukopenia On: :00 Request CBC, Platelets & Auto Diff ([id number])Indication: Leukopenia On: :00 Request CBC, Platelets & Auto Diff ([id number])Indication: Leukopenia On: :00 Request CBC, Platelets & Auto Diff ([id number])Indication: Leukopenia On: 17-Mar-2024 Request CBC, Platelets & Auto Diff ([id number])Indication: Leukopenia On: : Request CBC, Platelets & Auto Diff ([id number])Indication: Leukopenia On: : Request CBC, Platelets & Auto Diff ([id number])Indication: Leukopenia On: :00 Request CBC, Platelets & Auto Diff ([id number])Indication: Leukopenia On: 23-Mar-2023 Request CBC, Platelets & Auto Diff ([id number])Indication: Leukopenia On: :00 Request CBC, Platelets & Auto Diff ([id number])Indication: Leukopenia On: :00 Request CBC, Platelets & Auto Diff ([id number])Indication: Leukopenia On: : Request CBC, Platelets & Auto Diff ([id number])Indication: Leukopenia On: 28-Mar-2022 Request CBC, Platelets & Auto Diff ([id number])Indication: Leukopenia On: :00 Request CBC, Platelets & Auto Diff ([id number])Indication: Leukopenia On: :00 Request CBC, Platelets & Auto Diff ([id number])Indication: Leukopenia On: :00 Request CBC, Platelets & Auto Diff ([id number])Indication: Leukopenia On: 02-Apr-2021 Request CBC, Platelets & Auto Diff ([id number])Indication: Leukopenia On: :00 Request CBC, Platelets & Auto Diff ([id number])Indication: Leukopenia On: :00 Request CBC, Platelets & Auto Diff ([id number])Indication: Leukopenia On: :00 Request CBC, Platelets & Auto Diff ([id number])Indication: Leukopenia On: 07-Apr-2020 Request CBC, Platelets & Auto Diff ([id number])Indication: Leukopenia On: 08-Jan-2020 Request CBC, Platelets & Auto Diff ([id number])Indication: Leukopenia On: 10-Oct-2019 Request CBC, Platelets & Auto Diff ([id number])Indication: Leukopenia On: 12-Jul-2019 Request CBC, Platelets & Auto Diff ([id number])Indication: Leukopenia On: 13-Apr-2019 Request PT (PROTHROMBIN TIME) ([id number]) : standing orderIndication: History of DVT (deep vein thrombosis) On: 02-Mar-2019 Request Comments: standing order PT (PROTHROMBIN TIME) ([id number]) : standing orderIndication: History of DVT (deep vein thrombosis) On: 01-Mar-2019 Request Comments: standing order PT (PROTHROMBIN TIME) ([id number]) : standing orderIndication: History of DVT (deep vein thrombosis) On: 28-Feb-2019 Request Comments: standing order PT (PROTHROMBIN TIME) ([id number]) : standing orderIndication: History of DVT (deep vein thrombosis) On: 27-Feb-2019 Request Comments: standing order PT (PROTHROMBIN TIME) ([id number]) : standing orderIndication: History of DVT (deep vein thrombosis) On: 26-Feb-2019 Request Comments: standing order PT (PROTHROMBIN TIME) ([id number])Indication: History of DVT (deep vein thrombosis) On: 25-Feb-2019 Request PT (PROTHROMBIN TIME) ([id number]) : standing orderIndication: History of DVT (deep vein thrombosis) On: 25-Feb-2019 Request Comments: standing order PT (PROTHROMBIN TIME) ([id number]) : standing orderIndication: History of DVT (deep vein thrombosis) On: 25-Feb-2019 Request Comments: standing order PT (PROTHROMBIN TIME) ([id number]) : standing orderIndication: History of DVT (deep vein thrombosis) On: 24-Feb-2019 Request Comments: standing order PT (PROTHROMBIN TIME) ([id number]) : standing orderIndication: History of DVT (deep vein thrombosis) On: 23-Feb-2019 Request Comments: standing order PT (PROTHROMBIN TIME) ([id number]) : standing orderIndication: History of DVT (deep vein thrombosis) On: 22-Feb-2019 Request Comments: standing order PT (PROTHROMBIN TIME) ([id number]) : standing orderIndication: History of DVT (deep vein thrombosis) On: 21-Feb-2019 Request Comments: standing order PT (PROTHROMBIN TIME) ([id number]) : standing orderIndication: History of DVT (deep vein thrombosis) On: 20-Feb-2019 Request Comments: standing order PT (PROTHROMBIN TIME) ([id number]) : standing orderIndication: History of DVT (deep vein thrombosis) On: 19-Feb-2019 Request Comments: standing order PT (PROTHROMBIN TIME) ([id number]) : standing orderIndication: History of DVT (deep vein thrombosis) On: 18-Feb-2019 Request Comments: standing order PT (PROTHROMBIN TIME) ([id number]) : standing orderIndication: History of DVT (deep vein thrombosis) On: 17-Feb-2019 Request Comments: standing order PT (PROTHROMBIN TIME) ([id number]) : standing orderIndication: History of DVT (deep vein thrombosis) On: 16-Feb-2019 Request Comments: standing order PT (PROTHROMBIN TIME) ([id number]) : standing orderIndication: History of DVT (deep vein thrombosis) On: 15-Feb-2019 Request Comments: standing order PT (PROTHROMBIN TIME) ([id number]) : standing orderIndication: History of DVT (deep vein thrombosis) On: 14-Feb-2019 Request Comments: standing order PT (PROTHROMBIN TIME) ([id number]) : standing orderIndication: History of DVT (deep vein thrombosis) On: 13-Feb-2019 Request Comments: standing order PT (PROTHROMBIN TIME) ([id number]) : standing orderIndication: History of DVT (deep vein thrombosis) On: 12-Feb-2019 Request Comments: standing order PT (PROTHROMBIN TIME) ([id number]) : standing orderIndication: History of DVT (deep vein thrombosis) On: 11-Feb-2019 Request Comments: standing order PT (PROTHROMBIN TIME) ([id number]) : standing orderIndication: History of DVT (deep vein thrombosis) On: 10-Feb-2019 Request Comments: standing order PT (PROTHROMBIN TIME) ([id number]) : standing orderIndication: History of DVT (deep vein thrombosis) On: 09-Feb-2019 Request Comments: standing order PT (PROTHROMBIN TIME) ([id number]) : standing orderIndication: History of DVT (deep vein thrombosis) On: 08-Feb-2019 Request Comments: standing order PT (PROTHROMBIN TIME) ([id number]) : standing orderIndication: History of DVT (deep vein thrombosis) On: 07-Feb-2019 Request Comments: standing order PT (PROTHROMBIN TIME) ([id number]) : standing orderIndication: History of DVT (deep vein thrombosis) On: 06-Feb-2019 Request Comments: standing order PT (PROTHROMBIN TIME) ([id number]) : standing orderIndication: History of DVT (deep vein thrombosis) On: 05-Feb-2019 Request Comments: standing order PT (PROTHROMBIN TIME) ([id number]) : standing orderIndication: History of DVT (deep vein thrombosis) On: 04-Feb-2019 Request Comments: standing order PT (PROTHROMBIN TIME) ([id number]) : standing orderIndication: History of DVT (deep vein thrombosis) On: 03-Feb-2019 Request Comments: standing order PT (PROTHROMBIN TIME) ([id number]) : standing orderIndication: History of DVT (deep vein thrombosis) On: 02-Feb-2019 Request Comments: standing order PT (PROTHROMBIN TIME) ([id number]) : standing orderIndication: History of DVT (deep vein thrombosis) On: 01-Feb-2019 Request Comments: standing order PT (PROTHROMBIN TIME) ([id number]) : standing orderIndication: History of DVT (deep vein thrombosis) On: 31-Jan-2019 Request Comments: standing order PT (PROTHROMBIN TIME) ([id number]) : standing orderIndication: History of DVT (deep vein thrombosis) On: 30-Jan-2019 Request Comments: standing order PT (PROTHROMBIN TIME) ([id number]) : standing orderIndication: History of DVT (deep vein thrombosis) On: 29-Jan-2019 Request Comments: standing order PT (Prothrobim Time) ([id number])Indication: History of DVT (deep vein thrombosis) On: 28-Jan-2019 Request Comments: INR PT (PROTHROMBIN TIME) ([id number]) : standing orderIndication: History of DVT (deep vein thrombosis) On: 28-Jan-2019 Request Comments: standing order PT (PROTHROMBIN TIME) ([id number]) : standing orderIndication: History of DVT (deep vein thrombosis) On: 27-Jan-2019 Request Comments: standing order PT (PROTHROMBIN TIME) ([id number])Indication: History of DVT (deep vein thrombosis) On: 26-Jan-2019 Request PT (PROTHROMBIN TIME) ([id number]) : standing orderIndication: History of DVT (deep vein thrombosis) On: 26-Jan-2019 Request Comments: standing order PT (PROTHROMBIN TIME) ([id number]) : standing orderIndication: History of DVT (deep vein thrombosis) On: 26-Jan-2019 Request Comments: standing order PT (PROTHROMBIN TIME) ([id number]) : standing orderIndication: History of DVT (deep vein thrombosis) On: 25-Jan-2019 Request Comments: standing order PT (PROTHROMBIN TIME) ([id number]) : standing orderIndication: History of DVT (deep vein thrombosis) On: 24-Jan-2019 Request Comments: standing order PT (PROTHROMBIN TIME) ([id number]) : standing orderIndication: History of DVT (deep vein thrombosis) On: 23-Jan-2019 Request Comments: standing order PT (PROTHROMBIN TIME) ([id number]) : standing orderIndication: History of DVT (deep vein thrombosis) On: 22-Jan-2019 Request Comments: standing order PT (PROTHROMBIN TIME) ([id number]) : standing orderIndication: History of DVT (deep vein thrombosis) On: 21-Jan-2019 Request Comments: standing order PT (PROTHROMBIN TIME) ([id number]) : standing orderIndication: History of DVT (deep vein thrombosis) On: 20-Jan-2019 Request Comments: standing order PT (PROTHROMBIN TIME) ([id number]) : standing orderIndication: History of DVT (deep vein thrombosis) On: 19-Jan-2019 Request Comments: standing order PT (PROTHROMBIN TIME) ([id number]) : standing orderIndication: History of DVT (deep vein thrombosis) On: 18-Jan-2019 Request Comments: standing order PT (PROTHROMBIN TIME) ([id number]) : standing orderIndication: History of DVT (deep vein thrombosis) On: 17-Jan-2019 Request Comments: standing order PT (PROTHROMBIN TIME) ([id number]) : standing orderIndication: History of DVT (deep vein thrombosis) On: 16-Jan-2019 Request Comments: standing order PT (PROTHROMBIN TIME) ([id number]) : standing orderIndication: History of DVT (deep vein thrombosis) On: 15-Jan-2019 Request Comments: standing order PT (PROTHROMBIN TIME) ([id number]) : standing orderIndication: History of DVT (deep vein thrombosis) On: 14-Jan-2019 Request Comments: standing order CBC, Platelets & Auto Diff ([id number])Indication: Leukopenia On: 13-Jan-2019 Request PT (PROTHROMBIN TIME) ([id number]) : standing orderIndication: History of DVT (deep vein thrombosis) On: 13-Jan-2019 Request Comments: standing order PT (PROTHROMBIN TIME) ([id number]) : standing orderIndication: History of DVT (deep vein thrombosis) On: 12-Jan-2019 Request Comments: standing order PT (PROTHROMBIN TIME) ([id number]) : standing orderIndication: History of DVT (deep vein thrombosis) On: 11-Jan-2019 Request Comments: standing order PT (PROTHROMBIN TIME) ([id number]) : standing orderIndication: History of DVT (deep vein thrombosis) On: 10-Jan-2019 Request Comments: standing order PT (PROTHROMBIN TIME) ([id number]) : standing orderIndication: History of DVT (deep vein thrombosis) On: 09-Jan-2019 Request Comments: standing order PT (PROTHROMBIN TIME) ([id number]) : standing orderIndication: History of DVT (deep vein thrombosis) On: 08-Jan-2019 Request Comments: standing order PT (PROTHROMBIN TIME) ([id number]) : standing orderIndication: History of DVT (deep vein thrombosis) On: 07-Jan-2019 Request Comments: standing order PT (PROTHROMBIN TIME) ([id number]) : standing orderIndication: History of DVT (deep vein thrombosis) On: 06-Jan-2019 Request Comments: standing order PT (PROTHROMBIN TIME) ([id number]) : standing orderIndication: History of DVT (deep vein thrombosis) On: 05-Jan-2019 Request Comments: standing order PT (PROTHROMBIN TIME) ([id number]) : standing orderIndication: History of DVT (deep vein thrombosis) On: 04-Jan-2019 Request Comments: standing order PT (PROTHROMBIN TIME) ([id number]) : standing orderIndication: History of DVT (deep vein thrombosis) On: 03-Jan-2019 Request Comments: standing order PT (PROTHROMBIN TIME) ([id number]) : standing orderIndication: History of DVT (deep vein thrombosis) On: 02-Jan-2019 Request Comments: standing order PT (PROTHROMBIN TIME) ([id number]) : standing orderIndication: History of DVT (deep vein thrombosis) On: 01-Jan-2019 Request Comments: standing order PT (PROTHROMBIN TIME) ([id number]) : standing orderIndication: History of DVT (deep vein thrombosis) On: 31-Dec-2018 Request Comments: standing order PT (PROTHROMBIN TIME) ([id number]) : standing orderIndication: History of DVT (deep vein thrombosis) On: 30-Dec-2018 Request Comments: standing order PT (Prothrobim Time) ([id number])Indication: History of DVT (deep vein thrombosis) On: 29-Dec-2018 Request Comments: INR PT (PROTHROMBIN TIME) ([id number]) : standing orderIndication: History of DVT (deep vein thrombosis) On: 29-Dec-2018 Request Comments: standing order PT (PROTHROMBIN TIME) ([id number]) : standing orderIndication: History of DVT (deep vein thrombosis) On: 28-Dec-2018 Request Comments: standing order PT (PROTHROMBIN TIME) ([id number])Indication: History of DVT (deep vein thrombosis) On: 27-Dec-2018 Request PT (PROTHROMBIN TIME) ([id number]) : standing orderIndication: History of DVT (deep vein thrombosis) On: 27-Dec-2018 Request Comments: standing order PT (PROTHROMBIN TIME) ([id number]) : standing orderIndication: History of DVT (deep vein thrombosis) On: 27-Dec-2018 Request Comments: standing order PT (PROTHROMBIN TIME) ([id number]) : standing orderIndication: History of DVT (deep vein thrombosis) On: 26-Dec-2018 Request Comments: standing order PT (PROTHROMBIN TIME) ([id number]) : standing orderIndication: History of DVT (deep vein thrombosis) On: 25-Dec-2018 Request Comments: standing order PT (PROTHROMBIN TIME) ([id number]) : standing orderIndication: History of DVT (deep vein thrombosis) On: 24-Dec-2018 Request Comments: standing order PT (PROTHROMBIN TIME) ([id number]) : standing orderIndication: History of DVT (deep vein thrombosis) On: 23-Dec-2018 Request Comments: standing order PT (PROTHROMBIN TIME) ([id number]) : standing orderIndication: History of DVT (deep vein thrombosis) On: 22-Dec-2018 Request Comments: standing order PT (PROTHROMBIN TIME) ([id number]) : standing orderIndication: History of DVT (deep vein thrombosis) On: 21-Dec-2018 Request Comments: standing order PT (PROTHROMBIN TIME) ([id number]) : standing orderIndication: History of DVT (deep vein thrombosis) On: 20-Dec-2018 Request Comments: standing order PT (PROTHROMBIN TIME) ([id number]) : standing orderIndication: History of DVT (deep vein thrombosis) On: 19-Dec-2018 Request Comments: standing order PT (PROTHROMBIN TIME) ([id number]) : standing orderIndication: History of DVT (deep vein thrombosis) On: 18-Dec-2018 Request Comments: standing order PT (PROTHROMBIN TIME) ([id number]) : standing orderIndication: History of DVT (deep vein thrombosis) On: 17-Dec-2018 Request Comments: standing order PT (PROTHROMBIN TIME) ([id number]) : standing orderIndication: History of DVT (deep vein thrombosis) On: 16-Dec-2018 Request Comments: standing order PT (PROTHROMBIN TIME) ([id number]) : standing orderIndication: History of DVT (deep vein thrombosis) On: 15-Dec-2018 Request Comments: standing order PT (PROTHROMBIN TIME) ([id number]) : standing orderIndication: History of DVT (deep vein thrombosis) On: 14-Dec-2018 Request Comments: standing order PT (PROTHROMBIN TIME) ([id number]) : standing orderIndication: History of DVT (deep vein thrombosis) On: 13-Dec-2018 Request Comments: standing order PT (PROTHROMBIN TIME) ([id number]) : standing orderIndication: History of DVT (deep vein thrombosis) On: 12-Dec-2018 Request Comments: standing order PT (PROTHROMBIN TIME) ([id number]) : standing orderIndication: History of DVT (deep vein thrombosis) On: 11-Dec-2018 Request Comments: standing order PT (PROTHROMBIN TIME) ([id number]) : standing orderIndication: History of DVT (deep vein thrombosis) On: 10-Dec-2018 Request Comments: standing order PT (PROTHROMBIN TIME) ([id number]) : standing orderIndication: History of DVT (deep vein thrombosis) On: 09-Dec-2018 Request Comments: standing order PT (PROTHROMBIN TIME) ([id number]) : standing orderIndication: History of DVT (deep vein thrombosis) On: 08-Dec-2018 Request Comments: standing order PT (PROTHROMBIN TIME) ([id number]) : standing orderIndication: History of DVT (deep vein thrombosis) On: 07-Dec-2018 Request Comments: standing order PT (PROTHROMBIN TIME) ([id number]) : standing orderIndication: History of DVT (deep vein thrombosis) On: 06-Dec-2018 Request Comments: standing order PT (PROTHROMBIN TIME) ([id number]) : standing orderIndication: History of DVT (deep vein thrombosis) On: 05-Dec-2018 Request Comments: standing order PT (PROTHROMBIN TIME) ([id number]) : standing orderIndication: History of DVT (deep vein thrombosis) On: 04-Dec-2018 Request Comments: standing order PT (PROTHROMBIN TIME) ([id number]) : standing orderIndication: History of DVT (deep vein thrombosis) On: 03-Dec-2018 Request Comments: standing order PT (PROTHROMBIN TIME) ([id number]) : standing orderIndication: History of DVT (deep vein thrombosis) On: 02-Dec-2018 Request Comments: standing order PT (PROTHROMBIN TIME) ([id number]) : standing orderIndication: History of DVT (deep vein thrombosis) On: 01-Dec-2018 Request Comments: standing order PT (PROTHROMBIN TIME) ([id number]) : standing orderIndication: History of DVT (deep vein thrombosis) On: 30-Nov-2018 Request Comments: standing order PT (Prothrobim Time) ([id number])Indication: History of DVT (deep vein thrombosis) On: 29-Nov-2018 Request Comments: INR PT (PROTHROMBIN TIME) ([id number]) : standing orderIndication: History of DVT (deep vein thrombosis) On: 29-Nov-2018 Request Comments: standing order PT (PROTHROMBIN TIME) ([id number]) : standing orderIndication: History of DVT (deep vein thrombosis) On: 28-Nov-2018 Request Comments: standing order PT (PROTHROMBIN TIME) ([id number])Indication: History of DVT (deep vein thrombosis) On: 27-Nov-2018 Request PT (PROTHROMBIN TIME) ([id number]) : standing orderIndication: History of DVT (deep vein thrombosis) On: 27-Nov-2018 Request Comments: standing order PT (PROTHROMBIN TIME) ([id number]) : standing orderIndication: History of DVT (deep vein thrombosis) On: 27-Nov-2018 Request Comments: standing order PT (PROTHROMBIN TIME) ([id number]) : standing orderIndication: History of DVT (deep vein thrombosis) On: 26-Nov-2018 Request Comments: standing order PT (PROTHROMBIN TIME) ([id number]) : standing orderIndication: History of DVT (deep vein thrombosis) On: 25-Nov-2018 Request Comments: standing order PT (PROTHROMBIN TIME) ([id number]) : standing orderIndication: History of DVT (deep vein thrombosis) On: 24-Nov-2018 Request Comments: standing order PT (PROTHROMBIN TIME) ([id number]) : standing orderIndication: History of DVT (deep vein thrombosis) On: 23-Nov-2018 Request Comments: standing order PT (PROTHROMBIN TIME) ([id number]) : standing orderIndication: History of DVT (deep vein thrombosis) On: 22-Nov-2018 Request Comments: standing order PT (PROTHROMBIN TIME) ([id number]) : standing orderIndication: History of DVT (deep vein thrombosis) On: 21-Nov-2018 Request Comments: standing order PT (PROTHROMBIN TIME) ([id number]) : standing orderIndication: History of DVT (deep vein thrombosis) On: 20-Nov-2018 Request Comments: standing order PT (PROTHROMBIN TIME) ([id number]) : standing orderIndication: History of DVT (deep vein thrombosis) On: 19-Nov-2018 Request Comments: standing order PT (PROTHROMBIN TIME) ([id number]) : standing orderIndication: History of DVT (deep vein thrombosis) On: 18-Nov-2018 Request Comments: standing order PT (PROTHROMBIN TIME) ([id number]) : standing orderIndication: History of DVT (deep vein thrombosis) On: 17-Nov-2018 Request Comments: standing order PT (PROTHROMBIN TIME) ([id number]) : standing orderIndication: History of DVT (deep vein thrombosis) On: 16-Nov-2018 Request Comments: standing order PT (PROTHROMBIN TIME) ([id number]) : standing orderIndication: History of DVT (deep vein thrombosis) On: 15-Nov-2018 Request Comments: standing order PT (PROTHROMBIN TIME) ([id number]) : standing orderIndication: History of DVT (deep vein thrombosis) On: 14-Nov-2018 Request Comments: standing order PT (PROTHROMBIN TIME) ([id number]) : standing orderIndication: History of DVT (deep vein thrombosis) On: 13-Nov-2018 Request Comments: standing order PT (PROTHROMBIN TIME) ([id number]) : standing orderIndication: History of DVT (deep vein thrombosis) On: 12-Nov-2018 Request Comments: standing order PT (PROTHROMBIN TIME) ([id number]) : standing orderIndication: History of DVT (deep vein thrombosis) On: 11-Nov-2018 Request Comments: standing order PT (PROTHROMBIN TIME) ([id number]) : standing orderIndication: History of DVT (deep vein thrombosis) On: 10-Nov-2018 Request Comments: standing order PT (PROTHROMBIN TIME) ([id number]) : standing orderIndication: History of DVT (deep vein thrombosis) On: 09-Nov-2018 Request Comments: standing order PT (PROTHROMBIN TIME) ([id number]) : standing orderIndication: History of DVT (deep vein thrombosis) On: 08-Nov-2018 Request Comments: standing order PT (PROTHROMBIN TIME) ([id number]) : standing orderIndication: History of DVT (deep vein thrombosis) On: 07-Nov-2018 Request Comments: standing order PT (PROTHROMBIN TIME) ([id number]) : standing orderIndication: History of DVT (deep vein thrombosis) On: 06-Nov-2018 Request Comments: standing order PT (PROTHROMBIN TIME) ([id number]) : standing orderIndication: History of DVT (deep vein thrombosis) On: 05-Nov-2018 Request Comments: standing order PT (PROTHROMBIN TIME) ([id number]) : standing orderIndication: History of DVT (deep vein thrombosis) On: 04-Nov-2018 Request Comments: standing order PT (PROTHROMBIN TIME) ([id number]) : standing orderIndication: History of DVT (deep vein thrombosis) On: 03-Nov-2018 Request Comments: standing order PT (PROTHROMBIN TIME) ([id number]) : standing orderIndication: History of DVT (deep vein thrombosis) On: 02-Nov-2018 Request Comments: standing order PT (PROTHROMBIN TIME) ([id number]) : standing orderIndication: History of DVT (deep vein thrombosis) On: 01-Nov-2018 Request Comments: standing order PT (PROTHROMBIN TIME) ([id number]) : standing orderIndication: History of DVT (deep vein thrombosis) On: 31-Oct-2018 Request Comments: standing order PT (Prothrobim Time) ([id number])Indication: History of DVT (deep vein thrombosis) On: 30-Oct-2018 Request Comments: INR PT (PROTHROMBIN TIME) ([id number]) : standing orderIndication: History of DVT (deep vein thrombosis) On: 30-Oct-2018 Request Comments: standing order PT (PROTHROMBIN TIME) ([id number]) : standing orderIndication: History of DVT (deep vein thrombosis) On: 29-Oct-2018 Request Comments: standing order PT (PROTHROMBIN TIME) ([id number])Indication: History of DVT (deep vein thrombosis) On: 28-Oct-2018 Request PT (PROTHROMBIN TIME) ([id number]) : standing orderIndication: History of DVT (deep vein thrombosis) On: 28-Oct-2018 Request Comments: standing order PT (PROTHROMBIN TIME) ([id number]) : standing orderIndication: History of DVT (deep vein thrombosis) On: 28-Oct-2018 Request Comments: standing order PT (PROTHROMBIN TIME) ([id number]) : standing orderIndication: History of DVT (deep vein thrombosis) On: 27-Oct-2018 Request Comments: standing order PT (PROTHROMBIN TIME) ([id number]) : standing orderIndication: History of DVT (deep vein thrombosis) On: 26-Oct-2018 Request Comments: standing order PT (PROTHROMBIN TIME) ([id number]) : standing orderIndication: History of DVT (deep vein thrombosis) On: 25-Oct-2018 Request Comments: standing order PT (PROTHROMBIN TIME) ([id number]) : standing orderIndication: History of DVT (deep vein thrombosis) On: 24-Oct-2018 Request Comments: standing order PT (PROTHROMBIN TIME) ([id number]) : standing orderIndication: History of DVT (deep vein thrombosis) On: 23-Oct-2018 Request Comments: standing order PT (PROTHROMBIN TIME) ([id number]) : standing orderIndication: History of DVT (deep vein thrombosis) On: 22-Oct-2018 Request Comments: standing order PT (PROTHROMBIN TIME) ([id number]) : standing orderIndication: History of DVT (deep vein thrombosis) On: 21-Oct-2018 Request Comments: standing order PT (PROTHROMBIN TIME) ([id number]) : standing orderIndication: History of DVT (deep vein thrombosis) On: 20-Oct-2018 Request Comments: standing order PT (PROTHROMBIN TIME) ([id number]) : standing orderIndication: History of DVT (deep vein thrombosis) On: 19-Oct-2018 Request Comments: standing order PT (PROTHROMBIN TIME) ([id number]) : standing orderIndication: History of DVT (deep vein thrombosis) On: 18-Oct-2018 Request Comments: standing order PT (PROTHROMBIN TIME) ([id number]) : standing orderIndication: History of DVT (deep vein thrombosis) On: 17-Oct-2018 Request Comments: standing order PT (PROTHROMBIN TIME) ([id number]) : standing orderIndication: History of DVT (deep vein thrombosis) On: 16-Oct-2018 Request Comments: standing order CBC, Platelets & Auto Diff ([id number])Indication: Leukopenia On: 15-Oct-2018 Request PT (PROTHROMBIN TIME) ([id number]) : standing orderIndication: History of DVT (deep vein thrombosis) On: 15-Oct-2018 Request Comments: standing order PT (PROTHROMBIN TIME) ([id number]) : standing orderIndication: History of DVT (deep vein thrombosis) On: 14-Oct-2018 Request Comments: standing order PT (PROTHROMBIN TIME) ([id number]) : standing orderIndication: History of DVT (deep vein thrombosis) On: 13-Oct-2018 Request Comments: standing order PT (PROTHROMBIN TIME) ([id number]) : standing orderIndication: History of DVT (deep vein thrombosis) On: 12-Oct-2018 Request Comments: standing order PT (PROTHROMBIN TIME) ([id number]) : standing orderIndication: History of DVT (deep vein thrombosis) On: 11-Oct-2018 Request Comments: standing order PT (PROTHROMBIN TIME) ([id number]) : standing orderIndication: History of DVT (deep vein thrombosis) On: 10-Oct-2018 Request Comments: standing order PT (PROTHROMBIN TIME) ([id number]) : standing orderIndication: History of DVT (deep vein thrombosis) On: 09-Oct-2018 Request Comments: standing order PT (PROTHROMBIN TIME) ([id number]) : standing orderIndication: History of DVT (deep vein thrombosis) On: 08-Oct-2018 Request Comments: standing order PT (PROTHROMBIN TIME) ([id number]) : standing orderIndication: History of DVT (deep vein thrombosis) On: 07-Oct-2018 Request Comments: standing order PT (PROTHROMBIN TIME) ([id number]) : standing orderIndication: History of DVT (deep vein thrombosis) On: 06-Oct-2018 Request Comments: standing order PT (PROTHROMBIN TIME) ([id number]) : standing orderIndication: History of DVT (deep vein thrombosis) On: 05-Oct-2018 Request Comments: standing order PT (PROTHROMBIN TIME) ([id number]) : standing orderIndication: History of DVT (deep vein thrombosis) On: 04-Oct-2018 Request Comments: standing order PT (PROTHROMBIN TIME) ([id number]) : standing orderIndication: History of DVT (deep vein thrombosis) On: 03-Oct-2018 Request Comments: standing order PT (PROTHROMBIN TIME) ([id number]) : standing orderIndication: History of DVT (deep vein thrombosis) On: 02-Oct-2018 Request Comments: standing order PT (PROTHROMBIN TIME) ([id number]) : standing orderIndication: History of DVT (deep vein thrombosis) On: 01-Oct-2018 Request Comments: standing order PT (Prothrobim Time) ([id number])Indication: History of DVT (deep vein thrombosis) On: 30-Sep-2018 Request Comments: INR PT (PROTHROMBIN TIME) ([id number]) : standing orderIndication: History of DVT (deep vein thrombosis) On: 30-Sep-2018 Request Comments: standing order PT (PROTHROMBIN TIME) ([id number]) : standing orderIndication: History of DVT (deep vein thrombosis) On: 29-Sep-2018 Request Comments: standing order PT (PROTHROMBIN TIME) ([id number])Indication: History of DVT (deep vein thrombosis) On: 28-Sep-2018 Request PT (PROTHROMBIN TIME) ([id number]) : standing orderIndication: History of DVT (deep vein thrombosis) On: 28-Sep-2018 Request Comments: standing order PT (PROTHROMBIN TIME) ([id number]) : standing orderIndication: History of DVT (deep vein thrombosis) On: 28-Sep-2018 Request Comments: standing order PT (PROTHROMBIN TIME) ([id number]) : standing orderIndication: History of DVT (deep vein thrombosis) On: 27-Sep-2018 Request Comments: standing order PT (PROTHROMBIN TIME) ([id number]) : standing orderIndication: History of DVT (deep vein thrombosis) On: 26-Sep-2018 Request Comments: standing order PT (PROTHROMBIN TIME) ([id number]) : standing orderIndication: History of DVT (deep vein thrombosis) On: 25-Sep-2018 Request Comments: standing order PT (PROTHROMBIN TIME) ([id number]) : standing orderIndication: History of DVT (deep vein thrombosis) On: 24-Sep-2018 Request Comments: standing order PT (PROTHROMBIN TIME) ([id number]) : standing orderIndication: History of DVT (deep vein thrombosis) On: 23-Sep-2018 Request Comments: standing order PT (PROTHROMBIN TIME) ([id number]) : standing orderIndication: History of DVT (deep vein thrombosis) On: 22-Sep-2018 Request Comments: standing order PT (PROTHROMBIN TIME) ([id number]) : standing orderIndication: History of DVT (deep vein thrombosis) On: 21-Sep-2018 Request Comments: standing order PT (PROTHROMBIN TIME) ([id number]) : standing orderIndication: History of DVT (deep vein thrombosis) On: 20-Sep-2018 Request Comments: standing order PT (PROTHROMBIN TIME) ([id number]) : standing orderIndication: History of DVT (deep vein thrombosis) On: 19-Sep-2018 Request Comments: standing order PT (PROTHROMBIN TIME) ([id number]) : standing orderIndication: History of DVT (deep vein thrombosis) On: 18-Sep-2018 Request Comments: standing order PT (PROTHROMBIN TIME) ([id number]) : standing orderIndication: History of DVT (deep vein thrombosis) On: 17-Sep-2018 Request Comments: standing order PT (PROTHROMBIN TIME) ([id number]) : standing orderIndication: History of DVT (deep vein thrombosis) On: 17-Sep-2018 Request Comments: standing order PT (PROTHROMBIN TIME) ([id number]) : standing orderIndication: History of DVT (deep vein thrombosis) On: 16-Sep-2018 Request Comments: standing order PT (PROTHROMBIN TIME) ([id number]) : standing orderIndication: History of DVT (deep vein thrombosis) On: 16-Sep-2018 Request Comments: standing order PT (PROTHROMBIN TIME) ([id number]) : standing orderIndication: History of DVT (deep vein thrombosis) On: 15-Sep-2018 Request Comments: standing order PT (PROTHROMBIN TIME) ([id number]) : standing orderIndication: History of DVT (deep vein thrombosis) On: 15-Sep-2018 Request Comments: standing order PT (PROTHROMBIN TIME) ([id number]) : standing orderIndication: History of DVT (deep vein thrombosis) On: 14-Sep-2018 Request Comments: standing order PT (PROTHROMBIN TIME) ([id number]) : standing orderIndication: History of DVT (deep vein thrombosis) On: 14-Sep-2018 Request Comments: standing order PT (PROTHROMBIN TIME) ([id number]) : standing orderIndication: History of DVT (deep vein thrombosis) On: 13-Sep-2018 Request Comments: standing order PT (PROTHROMBIN TIME) ([id number]) : standing orderIndication: History of DVT (deep vein thrombosis) On: 13-Sep-2018 Request Comments: standing order PT (PROTHROMBIN TIME) ([id number]) : standing orderIndication: History of DVT (deep vein thrombosis) On: 12-Sep-2018 Request Comments: standing order PT (PROTHROMBIN TIME) ([id number]) : standing orderIndication: History of DVT (deep vein thrombosis) On: 12-Sep-2018 Request Comments: standing order PT (PROTHROMBIN TIME) ([id number]) : standing orderIndication: History of DVT (deep vein thrombosis) On: 11-Sep-2018 Request Comments: standing order PT (PROTHROMBIN TIME) ([id number]) : standing orderIndication: History of DVT (deep vein thrombosis) On: 11-Sep-2018 Request Comments: standing order PT (PROTHROMBIN TIME) ([id number]) : standing orderIndication: History of DVT (deep vein thrombosis) On: 10-Sep-2018 Request Comments: standing order PT (PROTHROMBIN TIME) ([id number]) : standing orderIndication: History of DVT (deep vein thrombosis) On: 10-Sep-2018 Request Comments: standing order PT (PROTHROMBIN TIME) ([id number]) : standing orderIndication: History of DVT (deep vein thrombosis) On: 09-Sep-2018 Request Comments: standing order PT (PROTHROMBIN TIME) ([id number]) : standing orderIndication: History of DVT (deep vein thrombosis) On: 09-Sep-2018 Request Comments: standing order PT (PROTHROMBIN TIME) ([id number]) : standing orderIndication: History of DVT (deep vein thrombosis) On: 08-Sep-2018 Request Comments: standing order PT (PROTHROMBIN TIME) ([id number]) : standing orderIndication: History of DVT (deep vein thrombosis) On: 08-Sep-2018 Request Comments: standing order PT (PROTHROMBIN TIME) ([id number]) : standing orderIndication: History of DVT (deep vein thrombosis) On: 07-Sep-2018 Request Comments: standing order PT (PROTHROMBIN TIME) ([id number]) : standing orderIndication: History of DVT (deep vein thrombosis) On: 07-Sep-2018 Request Comments: standing order PT (PROTHROMBIN TIME) ([id number]) : standing orderIndication: History of DVT (deep vein thrombosis) On: 06-Sep-2018 Request Comments: standing order PT (PROTHROMBIN TIME) ([id number]) : standing orderIndication: History of DVT (deep vein thrombosis) On: 06-Sep-2018 Request Comments: standing order PT (PROTHROMBIN TIME) ([id number]) : standing orderIndication: History of DVT (deep vein thrombosis) On: 05-Sep-2018 Request Comments: standing order PT (PROTHROMBIN TIME) ([id number]) : standing orderIndication: History of DVT (deep vein thrombosis) On: 05-Sep-2018 Request Comments: standing order PT (PROTHROMBIN TIME) ([id number]) : standing orderIndication: History of DVT (deep vein thrombosis) On: 04-Sep-2018 Request Comments: standing order PT (PROTHROMBIN TIME) ([id number]) : standing orderIndication: History of DVT (deep vein thrombosis) On: 04-Sep-2018 Request Comments: standing order PT (PROTHROMBIN TIME) ([id number]) : standing orderIndication: History of DVT (deep vein thrombosis) On: 03-Sep-2018 Request Comments: standing order PT (PROTHROMBIN TIME) ([id number]) : standing orderIndication: History of DVT (deep vein thrombosis) On: 03-Sep-2018 Request Comments: standing order PT (PROTHROMBIN TIME) ([id number]) : standing orderIndication: History of DVT (deep vein thrombosis) On: 02-Sep-2018 Request Comments: standing order PT (PROTHROMBIN TIME) ([id number]) : standing orderIndication: History of DVT (deep vein thrombosis) On: 02-Sep-2018 Request Comments: standing order PT (PROTHROMBIN TIME) ([id number]) : standing orderIndication: History of DVT (deep vein thrombosis) On: 01-Sep-2018 Request Comments: standing order PT (PROTHROMBIN TIME) ([id number]) : standing orderIndication: History of DVT (deep vein thrombosis) On: 01-Sep-2018 Request Comments: standing order PT (Prothrobim Time) ([id number])Indication: History of DVT (deep vein thrombosis) On: 31-Aug-2018 Request Comments: INR PT (PROTHROMBIN TIME) ([id number]) : standing orderIndication: History of DVT (deep vein thrombosis) On: 31-Aug-2018 Request Comments: standing order PT (PROTHROMBIN TIME) ([id number]) : standing orderIndication: History of DVT (deep vein thrombosis) On: 31-Aug-2018 Request Comments: standing order PT (PROTHROMBIN TIME) ([id number]) : standing orderIndication: History of DVT (deep vein thrombosis) On: 30-Aug-2018 Request Comments: standing order PT (PROTHROMBIN TIME) ([id number]) : standing orderIndication: History of DVT (deep vein thrombosis) On: 30-Aug-2018 Request Comments: standing order PT (PROTHROMBIN TIME) ([id number])Indication: History of DVT (deep vein thrombosis) On: 29-Aug-2018 Request PT (PROTHROMBIN TIME) ([id number]) : standing orderIndication: History of DVT (deep vein thrombosis) On: 29-Aug-2018 Request Comments: standing order PT (PROTHROMBIN TIME) ([id number]) : standing orderIndication: History of DVT (deep vein thrombosis) On: 29-Aug-2018 Request Comments: standing order PT (PROTHROMBIN TIME) ([id number]) : standing orderIndication: History of DVT (deep vein thrombosis) On: 29-Aug-2018 Request Comments: standing order PT (PROTHROMBIN TIME) ([id number]) : standing orderIndication: History of DVT (deep vein thrombosis) On: 28-Aug-2018 Request Comments: standing order PT (PROTHROMBIN TIME) ([id number]) : standing orderIndication: History of DVT (deep vein thrombosis) On: 28-Aug-2018 Request Comments: standing order PT (PROTHROMBIN TIME) ([id number]) : standing orderIndication: History of DVT (deep vein thrombosis) On: 27-Aug-2018 Request Comments: standing order PT (PROTHROMBIN TIME) ([id number]) : standing orderIndication: History of DVT (deep vein thrombosis) On: 27-Aug-2018 Request Comments: standing order PT (PROTHROMBIN TIME) ([id number]) : standing orderIndication: History of DVT (deep vein thrombosis) On: 26-Aug-2018 Request Comments: standing order PT (PROTHROMBIN TIME) ([id number]) : standing orderIndication: History of DVT (deep vein thrombosis) On: 26-Aug-2018 Request Comments: standing order PT (PROTHROMBIN TIME) ([id number]) : standing orderIndication: History of DVT (deep vein thrombosis) On: 25-Aug-2018 Request Comments: standing order PT (PROTHROMBIN TIME) ([id number]) : standing orderIndication: History of DVT (deep vein thrombosis) On: 25-Aug-2018 Request Comments: standing order PT (PROTHROMBIN TIME) ([id number]) : standing orderIndication: History of DVT (deep vein thrombosis) On: 24-Aug-2018 Request Comments: standing order PT (PROTHROMBIN TIME) ([id number]) : standing orderIndication: History of DVT (deep vein thrombosis) On: 24-Aug-2018 Request Comments: standing order PT (PROTHROMBIN TIME) ([id number]) : standing orderIndication: History of DVT (deep vein thrombosis) On: 23-Aug-2018 Request Comments: standing order PT (PROTHROMBIN TIME) ([id number]) : standing orderIndication: History of DVT (deep vein thrombosis) On: 23-Aug-2018 Request Comments: standing order PT (PROTHROMBIN TIME) ([id number]) : standing orderIndication: History of DVT (deep vein thrombosis) On: 22-Aug-2018 Request Comments: standing order PT (PROTHROMBIN TIME) ([id number]) : standing orderIndication: History of DVT (deep vein thrombosis) On: 22-Aug-2018 Request Comments: standing order PT (PROTHROMBIN TIME) ([id number]) : standing orderIndication: History of DVT (deep vein thrombosis) On: 21-Aug-2018 Request Comments: standing order PT (PROTHROMBIN TIME) ([id number]) : standing orderIndication: History of DVT (deep vein thrombosis) On: 21-Aug-2018 Request Comments: standing order PT (PROTHROMBIN TIME) ([id number]) : standing orderIndication: History of DVT (deep vein thrombosis) On: 20-Aug-2018 Request Comments: standing order PT (PROTHROMBIN TIME) ([id number]) : standing orderIndication: History of DVT (deep vein thrombosis) On: 20-Aug-2018 Request Comments: standing order PT (PROTHROMBIN TIME) ([id number]) : standing orderIndication: History of DVT (deep vein thrombosis) On: 19-Aug-2018 Request Comments: standing order PT (PROTHROMBIN TIME) ([id number]) : standing orderIndication: History of DVT (deep vein thrombosis) On: 19-Aug-2018 Request Comments: standing order PT (PROTHROMBIN TIME) ([id number]) : standing orderIndication: History of DVT (deep vein thrombosis) On: 18-Aug-2018 Request Comments: standing order PT (PROTHROMBIN TIME) ([id number]) : standing orderIndication: History of DVT (deep vein thrombosis) On: 18-Aug-2018 Request Comments: standing order PT (PROTHROMBIN TIME) ([id number]) : standing orderIndication: History of DVT (deep vein thrombosis) On: 17-Aug-2018 Request Comments: standing order PT (PROTHROMBIN TIME) ([id number]) : standing orderIndication: History of DVT (deep vein thrombosis) On: 17-Aug-2018 Request Comments: standing order PT (PROTHROMBIN TIME) ([id number]) : standing orderIndication: History of DVT (deep vein thrombosis) On: 16-Aug-2018 Request Comments: standing order PT (PROTHROMBIN TIME) ([id number]) : standing orderIndication: History of DVT (deep vein thrombosis) On: 16-Aug-2018 Request Comments: standing order PT (PROTHROMBIN TIME) ([id number]) : standing orderIndication: History of DVT (deep vein thrombosis) On: 15-Aug-2018 Request Comments: standing order PT (PROTHROMBIN TIME) ([id number]) : standing orderIndication: History of DVT (deep vein thrombosis) On: 15-Aug-2018 Request Comments: standing order PT (PROTHROMBIN TIME) ([id number]) : standing orderIndication: History of DVT (deep vein thrombosis) On: 14-Aug-2018 Request Comments: standing order PT (PROTHROMBIN TIME) ([id number]) : standing orderIndication: History of DVT (deep vein thrombosis) On: 14-Aug-2018 Request Comments: standing order PT (PROTHROMBIN TIME) ([id number]) : standing orderIndication: History of DVT (deep vein thrombosis) On: 13-Aug-2018 Request Comments: standing order PT (PROTHROMBIN TIME) ([id number]) : standing orderIndication: History of DVT (deep vein thrombosis) On: 13-Aug-2018 Request Comments: standing order PT (PROTHROMBIN TIME) ([id number]) : standing orderIndication: History of DVT (deep vein thrombosis) On: 12-Aug-2018 Request Comments: standing order PT (PROTHROMBIN TIME) ([id number]) : standing orderIndication: History of DVT (deep vein thrombosis) On: 12-Aug-2018 Request Comments: standing order PT (PROTHROMBIN TIME) ([id number]) : standing orderIndication: History of DVT (deep vein thrombosis) On: 11-Aug-2018 Request Comments: standing order PT (PROTHROMBIN TIME) ([id number]) : standing orderIndication: History of DVT (deep vein thrombosis) On: 11-Aug-2018 Request Comments: standing order PT (PROTHROMBIN TIME) ([id number]) : standing orderIndication: History of DVT (deep vein thrombosis) On: 10-Aug-2018 Request Comments: standing order PT (PROTHROMBIN TIME) ([id number]) : standing orderIndication: History of DVT (deep vein thrombosis) On: 10-Aug-2018 Request Comments: standing order PT (PROTHROMBIN TIME) ([id number]) : standing orderIndication: History of DVT (deep vein thrombosis) On: 09-Aug-2018 Request Comments: standing order PT (PROTHROMBIN TIME) ([id number]) : standing orderIndication: History of DVT (deep vein thrombosis) On: 09-Aug-2018 Request Comments: standing order PT (PROTHROMBIN TIME) ([id number]) : standing orderIndication: History of DVT (deep vein thrombosis) On: 08-Aug-2018 Request Comments: standing order PT (PROTHROMBIN TIME) ([id number]) : standing orderIndication: History of DVT (deep vein thrombosis) On: 08-Aug-2018 Request Comments: standing order PT (PROTHROMBIN TIME) ([id number]) : standing orderIndication: History of DVT (deep vein thrombosis) On: 07-Aug-2018 Request Comments: standing order PT (PROTHROMBIN TIME) ([id number]) : standing orderIndication: History of DVT (deep vein thrombosis) On: 07-Aug-2018 Request Comments: standing order PT (PROTHROMBIN TIME) ([id number]) : standing orderIndication: History of DVT (deep vein thrombosis) On: 06-Aug-2018 Request Comments: standing order PT (PROTHROMBIN TIME) ([id number]) : standing orderIndication: History of DVT (deep vein thrombosis) On: 06-Aug-2018 Request Comments: standing order PT (PROTHROMBIN TIME) ([id number]) : standing orderIndication: History of DVT (deep vein thrombosis) On: 05-Aug-2018 Request Comments: standing order PT (PROTHROMBIN TIME) ([id number]) : standing orderIndication: History of DVT (deep vein thrombosis) On: 05-Aug-2018 Request Comments: standing order PT (PROTHROMBIN TIME) ([id number]) : standing orderIndication: History of DVT (deep vein thrombosis) On: 04-Aug-2018 Request Comments: standing order PT (PROTHROMBIN TIME) ([id number]) : standing orderIndication: History of DVT (deep vein thrombosis) On: 04-Aug-2018 Request Comments: standing order PT (PROTHROMBIN TIME) ([id number]) : standing orderIndication: History of DVT (deep vein thrombosis) On: 03-Aug-2018 Request Comments: standing order PT (PROTHROMBIN TIME) ([id number]) : standing orderIndication: History of DVT (deep vein thrombosis) On: 03-Aug-2018 Request Comments: standing order PT (PROTHROMBIN TIME) ([id number]) : standing orderIndication: History of DVT (deep vein thrombosis) On: 02-Aug-2018 Request Comments: standing order PT (PROTHROMBIN TIME) ([id number]) : standing orderIndication: History of DVT (deep vein thrombosis) On: 02-Aug-2018 Request Comments: standing order PT (Prothrobim Time) ([id number])Indication: History of DVT (deep vein thrombosis) On: 01-Aug-2018 Request Comments: INR PT (PROTHROMBIN TIME) ([id number]) : standing orderIndication: History of DVT (deep vein thrombosis) On: 01-Aug-2018 Request Comments: standing order PT (PROTHROMBIN TIME) ([id number]) : standing orderIndication: History of DVT (deep vein thrombosis) On: 01-Aug-2018 Request Comments: standing order PT (PROTHROMBIN TIME) ([id number]) : standing orderIndication: History of DVT (deep vein thrombosis) On: 31-Jul-2018 Request Comments: standing order PT (PROTHROMBIN TIME) ([id number]) : standing orderIndication: History of DVT (deep vein thrombosis) On: 31-Jul-2018 Request Comments: standing order PT (PROTHROMBIN TIME) ([id number])Indication: History of DVT (deep vein thrombosis) On: 30-Jul-2018 Request PT (PROTHROMBIN TIME) ([id number]) : standing orderIndication: History of DVT (deep vein thrombosis) On: 30-Jul-2018 Request Comments: standing order PT (PROTHROMBIN TIME) ([id number]) : standing orderIndication: History of DVT (deep vein thrombosis) On: 30-Jul-2018 Request Comments: standing order PT (PROTHROMBIN TIME) ([id number]) : standing orderIndication: History of DVT (deep vein thrombosis) On: 30-Jul-2018 Request Comments: standing order PT (PROTHROMBIN TIME) ([id number]) : standing orderIndication: History of DVT (deep vein thrombosis) On: 29-Jul-2018 Request Comments: standing order PT (PROTHROMBIN TIME) ([id number]) : standing orderIndication: History of DVT (deep vein thrombosis) On: 29-Jul-2018 Request Comments: standing order PT (PROTHROMBIN TIME) ([id number]) : standing orderIndication: History of DVT (deep vein thrombosis) On: 28-Jul-2018 Request Comments: standing order PT (PROTHROMBIN TIME) ([id number]) : standing orderIndication: History of DVT (deep vein thrombosis) On: 28-Jul-2018 Request Comments: standing order PT (PROTHROMBIN TIME) ([id number]) : standing orderIndication: History of DVT (deep vein thrombosis) On: 27-Jul-2018 Request Comments: standing order PT (PROTHROMBIN TIME) ([id number]) : standing orderIndication: History of DVT (deep vein thrombosis) On: 27-Jul-2018 Request Comments: standing order PT (PROTHROMBIN TIME) ([id number]) : standing orderIndication: History of DVT (deep vein thrombosis) On: 26-Jul-2018 Request Comments: standing order PT (PROTHROMBIN TIME) ([id number]) : standing orderIndication: History of DVT (deep vein thrombosis) On: 26-Jul-2018 Request Comments: standing order PT (PROTHROMBIN TIME) ([id number]) : standing orderIndication: History of DVT (deep vein thrombosis) On: 25-Jul-2018 Request Comments: standing order PT (PROTHROMBIN TIME) ([id number]) : standing orderIndication: History of DVT (deep vein thrombosis) On: 25-Jul-2018 Request Comments: standing order PT (PROTHROMBIN TIME) ([id number]) : standing orderIndication: History of DVT (deep vein thrombosis) On: 24-Jul-2018 Request Comments: standing order PT (PROTHROMBIN TIME) ([id number]) : standing orderIndication: History of DVT (deep vein thrombosis) On: 24-Jul-2018 Request Comments: standing order PT (PROTHROMBIN TIME) ([id number]) : standing orderIndication: History of DVT (deep vein thrombosis) On: 23-Jul-2018 Request Comments: standing order PT (PROTHROMBIN TIME) ([id number]) : standing orderIndication: History of DVT (deep vein thrombosis) On: 23-Jul-2018 Request Comments: standing order PT (PROTHROMBIN TIME) ([id number]) : standing orderIndication: History of DVT (deep vein thrombosis) On: 22-Jul-2018 Request Comments: standing order PT (PROTHROMBIN TIME) ([id number]) : standing orderIndication: History of DVT (deep vein thrombosis) On: 22-Jul-2018 Request Comments: standing order PT (PROTHROMBIN TIME) ([id number]) : standing orderIndication: History of DVT (deep vein thrombosis) On: 21-Jul-2018 Request Comments: standing order PT (PROTHROMBIN TIME) ([id number]) : standing orderIndication: History of DVT (deep vein thrombosis) On: 21-Jul-2018 Request Comments: standing order PT (PROTHROMBIN TIME) ([id number]) : standing orderIndication: History of DVT (deep vein thrombosis) On: 20-Jul-2018 Request Comments: standing order PT (PROTHROMBIN TIME) ([id number]) : standing orderIndication: History of DVT (deep vein thrombosis) On: 20-Jul-2018 Request Comments: standing order PT (PROTHROMBIN TIME) ([id number]) : standing orderIndication: History of DVT (deep vein thrombosis) On: 19-Jul-2018 Request Comments: standing order PT (PROTHROMBIN TIME) ([id number]) : standing orderIndication: History of DVT (deep vein thrombosis) On: 19-Jul-2018 Request Comments: standing order PT (PROTHROMBIN TIME) ([id number]) : standing orderIndication: History of DVT (deep vein thrombosis) On: 18-Jul-2018 Request Comments: standing order PT (PROTHROMBIN TIME) ([id number]) : standing orderIndication: History of DVT (deep vein thrombosis) On: 18-Jul-2018 Request Comments: standing order CBC, Platelets & Auto Diff ([id number])Indication: Leukopenia On: 17-Jul-2018 Request PT (PROTHROMBIN TIME) ([id number]) : standing orderIndication: History of DVT (deep vein thrombosis) On: 17-Jul-2018 Request Comments: standing order PT (PROTHROMBIN TIME) ([id number]) : standing orderIndication: History of DVT (deep vein thrombosis) On: 17-Jul-2018 Request Comments: standing order PT (PROTHROMBIN TIME) ([id number]) : standing orderIndication: History of DVT (deep vein thrombosis) On: 16-Jul-2018 Request Comments: standing order PT (PROTHROMBIN TIME) ([id number]) : standing orderIndication: History of DVT (deep vein thrombosis) On: 16-Jul-2018 Request Comments: standing order PT (PROTHROMBIN TIME) ([id number]) : standing orderIndication: History of DVT (deep vein thrombosis) On: 15-Jul-2018 Request Comments: standing order PT (PROTHROMBIN TIME) ([id number]) : standing orderIndication: History of DVT (deep vein thrombosis) On: 15-Jul-2018 Request Comments: standing order PT (PROTHROMBIN TIME) ([id number]) : standing orderIndication: History of DVT (deep vein thrombosis) On: 14-Jul-2018 Request Comments: standing order PT (PROTHROMBIN TIME) ([id number]) : standing orderIndication: History of DVT (deep vein thrombosis) On: 14-Jul-2018 Request Comments: standing order PT (PROTHROMBIN TIME) ([id number]) : standing orderIndication: History of DVT (deep vein thrombosis) On: 13-Jul-2018 Request Comments: standing order PT (PROTHROMBIN TIME) ([id number]) : standing orderIndication: History of DVT (deep vein thrombosis) On: 13-Jul-2018 Request Comments: standing order PT (PROTHROMBIN TIME) ([id number]) : standing orderIndication: History of DVT (deep vein thrombosis) On: 12-Jul-2018 Request Comments: standing order PT (PROTHROMBIN TIME) ([id number]) : standing orderIndication: History of DVT (deep vein thrombosis) On: 12-Jul-2018 Request Comments: standing order PT (PROTHROMBIN TIME) ([id number]) : standing orderIndication: History of DVT (deep vein thrombosis) On: 11-Jul-2018 Request Comments: standing order PT (PROTHROMBIN TIME) ([id number]) : standing orderIndication: History of DVT (deep vein thrombosis) On: 11-Jul-2018 Request Comments: standing order PT (PROTHROMBIN TIME) ([id number]) : standing orderIndication: History of DVT (deep vein thrombosis) On: 10-Jul-2018 Request Comments: standing order PT (PROTHROMBIN TIME) ([id number]) : standing orderIndication: History of DVT (deep vein thrombosis) On: 10-Jul-2018 Request Comments: standing order PT (PROTHROMBIN TIME) ([id number]) : standing orderIndication: History of DVT (deep vein thrombosis) On: 09-Jul-2018 Request Comments: standing order PT (PROTHROMBIN TIME) ([id number]) : standing orderIndication: History of DVT (deep vein thrombosis) On: 09-Jul-2018 Request Comments: standing order PT (PROTHROMBIN TIME) ([id number]) : standing orderIndication: History of DVT (deep vein thrombosis) On: 08-Jul-2018 Request Comments: standing order PT (PROTHROMBIN TIME) ([id number]) : standing orderIndication: History of DVT (deep vein thrombosis) On: 08-Jul-2018 Request Comments: standing order PT (PROTHROMBIN TIME) ([id number]) : standing orderIndication: History of DVT (deep vein thrombosis) On: 07-Jul-2018 Request Comments: standing order PT (PROTHROMBIN TIME) ([id number]) : standing orderIndication: History of DVT (deep vein thrombosis) On: 07-Jul-2018 Request Comments: standing order PT (PROTHROMBIN TIME) ([id number]) : standing orderIndication: History of DVT (deep vein thrombosis) On: 06-Jul-2018 Request Comments: standing order PT (PROTHROMBIN TIME) ([id number]) : standing orderIndication: History of DVT (deep vein thrombosis) On: 06-Jul-2018 Request Comments: standing order PT (PROTHROMBIN TIME) ([id number]) : standing orderIndication: History of DVT (deep vein thrombosis) On: 05-Jul-2018 Request Comments: standing order PT (PROTHROMBIN TIME) ([id number]) : standing orderIndication: History of DVT (deep vein thrombosis) On: 05-Jul-2018 Request Comments: standing order PT (PROTHROMBIN TIME) ([id number]) : standing orderIndication: History of DVT (deep vein thrombosis) On: 04-Jul-2018 Request Comments: standing order PT (PROTHROMBIN TIME) ([id number]) : standing orderIndication: History of DVT (deep vein thrombosis) On: 04-Jul-2018 Request Comments: standing order PT (PROTHROMBIN TIME) ([id number]) : standing orderIndication: History of DVT (deep vein thrombosis) On: 03-Jul-2018 Request Comments: standing order PT (PROTHROMBIN TIME) ([id number]) : standing orderIndication: History of DVT (deep vein thrombosis) On: 03-Jul-2018 Request Comments: standing order PT (Prothrobim Time) ([id number])Indication: History of DVT (deep vein thrombosis) On: 02-Jul-2018 Request Comments: INR PT (PROTHROMBIN TIME) ([id number]) : standing orderIndication: History of DVT (deep vein thrombosis) On: 02-Jul-2018 Request Comments: standing order PT (PROTHROMBIN TIME) ([id number]) : standing orderIndication: History of DVT (deep vein thrombosis) On: 02-Jul-2018 Request Comments: standing order PT (PROTHROMBIN TIME) ([id number]) : standing orderIndication: History of DVT (deep vein thrombosis) On: 01-Jul-2018 Request Comments: standing order PT (PROTHROMBIN TIME) ([id number]) : standing orderIndication: History of DVT (deep vein thrombosis) On: 01-Jul-2018 Request Comments: standing order PT (PROTHROMBIN TIME) ([id number])Indication: History of DVT (deep vein thrombosis) On: 30-Jun-2018 Request PT (PROTHROMBIN TIME) ([id number]) : standing orderIndication: History of DVT (deep vein thrombosis) On: 30-Jun-2018 Request Comments: standing order PT (PROTHROMBIN TIME) ([id number]) : standing orderIndication: History of DVT (deep vein thrombosis) On: 30-Jun-2018 Request Comments: standing order PT (PROTHROMBIN TIME) ([id number]) : standing orderIndication: History of DVT (deep vein thrombosis) On: 30-Jun-2018 Request Comments: standing order PT (PROTHROMBIN TIME) ([id number]) : standing orderIndication: History of DVT (deep vein thrombosis) On: 29-Jun-2018 Request Comments: standing order PT (PROTHROMBIN TIME) ([id number]) : standing orderIndication: History of DVT (deep vein thrombosis) On: 29-Jun-2018 Request Comments: standing order PT (PROTHROMBIN TIME) ([id number]) : standing orderIndication: History of DVT (deep vein thrombosis) On: 28-Jun-2018 Request Comments: standing order PT (PROTHROMBIN TIME) ([id number]) : standing orderIndication: History of DVT (deep vein thrombosis) On: 28-Jun-2018 Request Comments: standing order PT (PROTHROMBIN TIME) ([id number]) : standing orderIndication: History of DVT (deep vein thrombosis) On: 27-Jun-2018 Request Comments: standing order PT (PROTHROMBIN TIME) ([id number]) : standing orderIndication: History of DVT (deep vein thrombosis) On: 27-Jun-2018 Request Comments: standing order PT (PROTHROMBIN TIME) ([id number]) : standing orderIndication: History of DVT (deep vein thrombosis) On: 26-Jun-2018 Request Comments: standing order PT (PROTHROMBIN TIME) ([id number]) : standing orderIndication: History of DVT (deep vein thrombosis) On: 26-Jun-2018 Request Comments: standing order PT (PROTHROMBIN TIME) ([id number]) : standing orderIndication: History of DVT (deep vein thrombosis) On: 25-Jun-2018 Request Comments: standing order PT (PROTHROMBIN TIME) ([id number]) : standing orderIndication: History of DVT (deep vein thrombosis) On: 25-Jun-2018 Request Comments: standing order PT (PROTHROMBIN TIME) ([id number]) : standing orderIndication: History of DVT (deep vein thrombosis) On: 24-Jun-2018 Request Comments: standing order PT (PROTHROMBIN TIME) ([id number]) : standing orderIndication: History of DVT (deep vein thrombosis) On: 24-Jun-2018 Request Comments: standing order PT (PROTHROMBIN TIME) ([id number]) : standing orderIndication: History of DVT (deep vein thrombosis) On: 23-Jun-2018 Request Comments: standing order PT (PROTHROMBIN TIME) ([id number]) : standing orderIndication: History of DVT (deep vein thrombosis) On: 23-Jun-2018 Request Comments: standing order PT (PROTHROMBIN TIME) ([id number]) : standing orderIndication: History of DVT (deep vein thrombosis) On: 22-Jun-2018 Request Comments: standing order PT (PROTHROMBIN TIME) ([id number]) : standing orderIndication: History of DVT (deep vein thrombosis) On: 22-Jun-2018 Request Comments: standing order PT (PROTHROMBIN TIME) ([id number]) : standing orderIndication: History of DVT (deep vein thrombosis) On: 21-Jun-2018 Request Comments: standing order PT (PROTHROMBIN TIME) ([id number]) : standing orderIndication: History of DVT (deep vein thrombosis) On: 21-Jun-2018 Request Comments: standing order PT (PROTHROMBIN TIME) ([id number]) : standing orderIndication: History of DVT (deep vein thrombosis) On: 20-Jun-2018 Request Comments: standing order PT (PROTHROMBIN TIME) ([id number]) : standing orderIndication: History of DVT (deep vein thrombosis) On: 20-Jun-2018 Request Comments: standing order PT (PROTHROMBIN TIME) ([id number]) : standing orderIndication: History of DVT (deep vein thrombosis) On: 19-Jun-2018 Request Comments: standing order PT (PROTHROMBIN TIME) ([id number]) : standing orderIndication: History of DVT (deep vein thrombosis) On: 19-Jun-2018 Request Comments: standing order PT (PROTHROMBIN TIME) ([id number]) : standing orderIndication: History of DVT (deep vein thrombosis) On: 18-Jun-2018 Request Comments: standing order PT (PROTHROMBIN TIME) ([id number]) : standing orderIndication: History of DVT (deep vein thrombosis) On: 18-Jun-2018 Request Comments: standing order PT (PROTHROMBIN TIME) ([id number]) : standing orderIndication: History of DVT (deep vein thrombosis) On: 17-Jun-2018 Request Comments: standing order PT (PROTHROMBIN TIME) ([id number]) : standing orderIndication: History of DVT (deep vein thrombosis) On: 17-Jun-2018 Request Comments: standing order PT (PROTHROMBIN TIME) ([id number]) : standing orderIndication: History of DVT (deep vein thrombosis) On: 16-Jun-2018 Request Comments: standing order PT (PROTHROMBIN TIME) ([id number]) : standing orderIndication: History of DVT (deep vein thrombosis) On: 16-Jun-2018 Request Comments: standing order PT (PROTHROMBIN TIME) ([id number]) : standing orderIndication: History of DVT (deep vein thrombosis) On: 15-Jun-2018 Request Comments: standing order PT (PROTHROMBIN TIME) ([id number]) : standing orderIndication: History of DVT (deep vein thrombosis) On: 15-Jun-2018 Request Comments: standing order PT (PROTHROMBIN TIME) ([id number]) : standing orderIndication: History of DVT (deep vein thrombosis) On: 14-Jun-2018 Request Comments: standing order PT (PROTHROMBIN TIME) ([id number]) : standing orderIndication: History of DVT (deep vein thrombosis) On: 14-Jun-2018 Request Comments: standing order PT (PROTHROMBIN TIME) ([id number]) : standing orderIndication: History of DVT (deep vein thrombosis) On: 13-Jun-2018 Request Comments: standing order PT (PROTHROMBIN TIME) ([id number]) : standing orderIndication: History of DVT (deep vein thrombosis) On: 13-Jun-2018 Request Comments: standing order PT (PROTHROMBIN TIME) ([id number]) : standing orderIndication: History of DVT (deep vein thrombosis) On: 12-Jun-2018 Request Comments: standing order PT (PROTHROMBIN TIME) ([id number]) : standing orderIndication: History of DVT (deep vein thrombosis) On: 12-Jun-2018 Request Comments: standing order PT (PROTHROMBIN TIME) ([id number]) : standing orderIndication: History of DVT (deep vein thrombosis) On: 11-Jun-2018 Request Comments: standing order PT (PROTHROMBIN TIME) ([id number]) : standing orderIndication: History of DVT (deep vein thrombosis) On: 11-Jun-2018 Request Comments: standing order PT (PROTHROMBIN TIME) ([id number]) : standing orderIndication: History of DVT (deep vein thrombosis) On: 10-Jun-2018 Request Comments: standing order PT (PROTHROMBIN TIME) ([id number]) : standing orderIndication: History of DVT (deep vein thrombosis) On: 10-Jun-2018 Request Comments: standing order PT (PROTHROMBIN TIME) ([id number]) : standing orderIndication: History of DVT (deep vein thrombosis) On: 09-Jun-2018 Request Comments: standing order PT (PROTHROMBIN TIME) ([id number]) : standing orderIndication: History of DVT (deep vein thrombosis) On: 09-Jun-2018 Request Comments: standing order PT (PROTHROMBIN TIME) ([id number]) : standing orderIndication: History of DVT (deep vein thrombosis) On: 08-Jun-2018 Request Comments: standing order PT (PROTHROMBIN TIME) ([id number]) : standing orderIndication: History of DVT (deep vein thrombosis) On: 08-Jun-2018 Request Comments: standing order PT (PROTHROMBIN TIME) ([id number]) : standing orderIndication: History of DVT (deep vein thrombosis) On: 07-Jun-2018 Request Comments: standing order PT (PROTHROMBIN TIME) ([id number]) : standing orderIndication: History of DVT (deep vein thrombosis) On: 07-Jun-2018 Request Comments: standing order PT (PROTHROMBIN TIME) ([id number]) : standing orderIndication: History of DVT (deep vein thrombosis) On: 06-Jun-2018 Request Comments: standing order PT (PROTHROMBIN TIME) ([id number]) : standing orderIndication: History of DVT (deep vein thrombosis) On: 06-Jun-2018 Request Comments: standing order PT (PROTHROMBIN TIME) ([id number]) : standing orderIndication: History of DVT (deep vein thrombosis) On: 05-Jun-2018 Request Comments: standing order PT (PROTHROMBIN TIME) ([id number]) : standing orderIndication: History of DVT (deep vein thrombosis) On: 05-Jun-2018 Request Comments: standing order PT (PROTHROMBIN TIME) ([id number]) : standing orderIndication: History of DVT (deep vein thrombosis) On: 04-Jun-2018 Request Comments: standing order PT (PROTHROMBIN TIME) ([id number]) : standing orderIndication: History of DVT (deep vein thrombosis) On: 04-Jun-2018 Request Comments: standing order PT (PROTHROMBIN TIME) ([id number]) : standing orderIndication: History of DVT (deep vein thrombosis) On: 03-Jun-2018 Request Comments: standing order PT (PROTHROMBIN TIME) ([id number]) : standing orderIndication: History of DVT (deep vein thrombosis) On: 03-Jun-2018 Request Comments: standing order PT (Prothrobim Time) ([id number])Indication: History of DVT (deep vein thrombosis) On: 02-Jun-2018 Request Comments: INR PT (PROTHROMBIN TIME) ([id number]) : standing orderIndication: History of DVT (deep vein thrombosis) On: 02-Jun-2018 Request Comments: standing order PT (PROTHROMBIN TIME) ([id number]) : standing orderIndication: History of DVT (deep vein thrombosis) On: 02-Jun-2018 Request Comments: standing order PT (PROTHROMBIN TIME) ([id number]) : standing orderIndication: History of DVT (deep vein thrombosis) On: 01-Jun-2018 Request Comments: standing order PT (PROTHROMBIN TIME) ([id number]) : standing orderIndication: History of DVT (deep vein thrombosis) On: 01-Jun-2018 Request Comments: standing order PT (PROTHROMBIN TIME) ([id number])Indication: History of DVT (deep vein thrombosis) On: 31-May-2018 Request PT (PROTHROMBIN TIME) ([id number]) : standing orderIndication: History of DVT (deep vein thrombosis) On: 31-May-2018 Request Comments: standing order PT (PROTHROMBIN TIME) ([id number]) : standing orderIndication: History of DVT (deep vein thrombosis) On: 31-May-2018 Request Comments: standing order PT (PROTHROMBIN TIME) ([id number]) : standing orderIndication: History of DVT (deep vein thrombosis) On: 31-May-2018 Request Comments: standing order PT (PROTHROMBIN TIME) ([id number]) : standing orderIndication: History of DVT (deep vein thrombosis) On: 30-May-2018 Request Comments: standing order PT (PROTHROMBIN TIME) ([id number]) : standing orderIndication: History of DVT (deep vein thrombosis) On: 30-May-2018 Request Comments: standing order PT (PROTHROMBIN TIME) ([id number]) : standing orderIndication: History of DVT (deep vein thrombosis) On: 29-May-2018 Request Comments: standing order PT (PROTHROMBIN TIME) ([id number]) : standing orderIndication: History of DVT (deep vein thrombosis) On: 29-May-2018 Request Comments: standing order PT (PROTHROMBIN TIME) ([id number]) : standing orderIndication: History of DVT (deep vein thrombosis) On: 28-May-2018 Request Comments: standing order PT (PROTHROMBIN TIME) ([id number]) : standing orderIndication: History of DVT (deep vein thrombosis) On: 28-May-2018 Request Comments: standing order PT (PROTHROMBIN TIME) ([id number]) : standing orderIndication: History of DVT (deep vein thrombosis) On: 27-May-2018 Request Comments: standing order PT (PROTHROMBIN TIME) ([id number]) : standing orderIndication: History of DVT (deep vein thrombosis) On: 27-May-2018 Request Comments: standing order PT (PROTHROMBIN TIME) ([id number]) : standing orderIndication: History of DVT (deep vein thrombosis) On: 26-May-2018 Request Comments: standing order PT (PROTHROMBIN TIME) ([id number]) : standing orderIndication: History of DVT (deep vein thrombosis) On: 26-May-2018 Request Comments: standing order PT (PROTHROMBIN TIME) ([id number]) : standing orderIndication: History of DVT (deep vein thrombosis) On: 25-May-2018 Request Comments: standing order PT (PROTHROMBIN TIME) ([id number]) : standing orderIndication: History of DVT (deep vein thrombosis) On: 25-May-2018 Request Comments: standing order PT (PROTHROMBIN TIME) ([id number]) : standing orderIndication: History of DVT (deep vein thrombosis) On: 24-May-2018 Request Comments: standing order PT (PROTHROMBIN TIME) ([id number]) : standing orderIndication: History of DVT (deep vein thrombosis) On: 24-May-2018 Request Comments: standing order PT (Prothrobim Time) ([id number])Indication: Anticoagulated on Coumadin On: 23-May-2018 Request PT (PROTHROMBIN TIME) ([id number]) : standing orderIndication: History of DVT (deep vein thrombosis) On: 23-May-2018 Request Comments: standing order PT (PROTHROMBIN TIME) ([id number]) : standing orderIndication: History of DVT (deep vein thrombosis) On: 23-May-2018 Request Comments: standing order PT (PROTHROMBIN TIME) ([id number]) : standing orderIndication: History of DVT (deep vein thrombosis) On: 22-May-2018 Request Comments: standing order PT (PROTHROMBIN TIME) ([id number]) : standing orderIndication: History of DVT (deep vein thrombosis) On: 22-May-2018 Request Comments: standing order PT (PROTHROMBIN TIME) ([id number]) : standing orderIndication: History of DVT (deep vein thrombosis) On: 21-May-2018 Request Comments: standing order PT (PROTHROMBIN TIME) ([id number]) : standing orderIndication: History of DVT (deep vein thrombosis) On: 21-May-2018 Request Comments: standing order PT (PROTHROMBIN TIME) ([id number]) : standing orderIndication: History of DVT (deep vein thrombosis) On: 20-May-2018 Request Comments: standing order PT (PROTHROMBIN TIME) ([id number]) : standing orderIndication: History of DVT (deep vein thrombosis) On: 20-May-2018 Request Comments: standing order PT (PROTHROMBIN TIME) ([id number]) : standing orderIndication: History of DVT (deep vein thrombosis) On: 19-May-2018 Request Comments: standing order PT (PROTHROMBIN TIME) ([id number]) : standing orderIndication: History of DVT (deep vein thrombosis) On: 19-May-2018 Request Comments: standing order PT (PROTHROMBIN TIME) ([id number]) : standing orderIndication: History of DVT (deep vein thrombosis) On: 18-May-2018 Request Comments: standing order PT (PROTHROMBIN TIME) ([id number]) : standing orderIndication: History of DVT (deep vein thrombosis) On: 18-May-2018 Request Comments: standing order PT (PROTHROMBIN TIME) ([id number]) : standing orderIndication: History of DVT (deep vein thrombosis) On: 17-May-2018 Request Comments: standing order PT (PROTHROMBIN TIME) ([id number]) : standing orderIndication: History of DVT (deep vein thrombosis) On: 17-May-2018 Request Comments: standing order PT (Prothrobim Time) ([id number])Indication: Anticoagulated on Coumadin On: 16-May-2018 Request PT (PROTHROMBIN TIME) ([id number]) : standing orderIndication: History of DVT (deep vein thrombosis) On: 16-May-2018 Request Comments: standing order PT (PROTHROMBIN TIME) ([id number]) : standing orderIndication: History of DVT (deep vein thrombosis) On: 16-May-2018 Request Comments: standing order PT (PROTHROMBIN TIME) ([id number]) : standing orderIndication: History of DVT (deep vein thrombosis) On: 15-May-2018 Request Comments: standing order PT (PROTHROMBIN TIME) ([id number]) : standing orderIndication: History of DVT (deep vein thrombosis) On: 15-May-2018 Request Comments: standing order PT (PROTHROMBIN TIME) ([id number]) : standing orderIndication: History of DVT (deep vein thrombosis) On: 14-May-2018 Request Comments: standing order PT (PROTHROMBIN TIME) ([id number]) : standing orderIndication: History of DVT (deep vein thrombosis) On: 14-May-2018 Request Comments: standing order PT (PROTHROMBIN TIME) ([id number]) : standing orderIndication: History of DVT (deep vein thrombosis) On: 13-May-2018 Request Comments: standing order PT (PROTHROMBIN TIME) ([id number]) : standing orderIndication: History of DVT (deep vein thrombosis) On: 13-May-2018 Request Comments: standing order PT (PROTHROMBIN TIME) ([id number]) : standing orderIndication: History of DVT (deep vein thrombosis) On: 12-May-2018 Request Comments: standing order PT (PROTHROMBIN TIME) ([id number]) : standing orderIndication: History of DVT (deep vein thrombosis) On: 12-May-2018 Request Comments: standing order PT (PROTHROMBIN TIME) ([id number]) : standing orderIndication: History of DVT (deep vein thrombosis) On: 11-May-2018 Request Comments: standing order PT (PROTHROMBIN TIME) ([id number]) : standing orderIndication: History of DVT (deep vein thrombosis) On: 11-May-2018 Request Comments: standing order PT (PROTHROMBIN TIME) ([id number]) : standing orderIndication: History of DVT (deep vein thrombosis) On: 10-May-2018 Request Comments: standing order PT (PROTHROMBIN TIME) ([id number]) : standing orderIndication: History of DVT (deep vein thrombosis) On: 10-May-2018 Request Comments: standing order PT (Prothrobim Time) ([id number])Indication: Anticoagulated on Coumadin On: 09-May-2018 Request PT (PROTHROMBIN TIME) ([id number]) : standing orderIndication: History of DVT (deep vein thrombosis) On: 09-May-2018 Request Comments: standing order PT (PROTHROMBIN TIME) ([id number]) : standing orderIndication: History of DVT (deep vein thrombosis) On: 09-May-2018 Request Comments: standing order PT (PROTHROMBIN TIME) ([id number]) : standing orderIndication: History of DVT (deep vein thrombosis) On: 08-May-2018 Request Comments: standing order PT (PROTHROMBIN TIME) ([id number]) : standing orderIndication: History of DVT (deep vein thrombosis) On: 08-May-2018 Request Comments: standing order PT (PROTHROMBIN TIME) ([id number]) : standing orderIndication: History of DVT (deep vein thrombosis) On: 07-May-2018 Request Comments: standing order PT (PROTHROMBIN TIME) ([id number]) : standing orderIndication: History of DVT (deep vein thrombosis) On: 07-May-2018 Request Comments: standing order PT (PROTHROMBIN TIME) ([id number]) : standing orderIndication: History of DVT (deep vein thrombosis) On: 06-May-2018 Request Comments: standing order PT (PROTHROMBIN TIME) ([id number]) : standing orderIndication: History of DVT (deep vein thrombosis) On: 06-May-2018 Request Comments: standing order PT (PROTHROMBIN TIME) ([id number]) : standing orderIndication: History of DVT (deep vein thrombosis) On: 05-May-2018 Request Comments: standing order PT (PROTHROMBIN TIME) ([id number]) : standing orderIndication: History of DVT (deep vein thrombosis) On: 05-May-2018 Request Comments: standing order PT (PROTHROMBIN TIME) ([id number]) : standing orderIndication: History of DVT (deep vein thrombosis) On: 04-May-2018 Request Comments: standing order PT (PROTHROMBIN TIME) ([id number]) : standing orderIndication: History of DVT (deep vein thrombosis) On: 04-May-2018 Request Comments: standing order PT (Prothrobim Time) ([id number])Indication: History of DVT (deep vein thrombosis) On: 03-May-2018 Request Comments: INR PT (PROTHROMBIN TIME) ([id number]) : standing orderIndication: History of DVT (deep vein thrombosis) On: 03-May-2018 Request Comments: standing order PT (PROTHROMBIN TIME) ([id number]) : standing orderIndication: History of DVT (deep vein thrombosis) On: 03-May-2018 Request Comments: standing order PT (Prothrobim Time) ([id number])Indication: Anticoagulated on Coumadin On: 02-May-2018 Request PT (PROTHROMBIN TIME) ([id number]) : standing orderIndication: History of DVT (deep vein thrombosis) On: 02-May-2018 Request Comments: standing order PT (PROTHROMBIN TIME) ([id number]) : standing orderIndication: History of DVT (deep vein thrombosis) On: 02-May-2018 Request Comments: standing order PT (PROTHROMBIN TIME) ([id number])Indication: History of DVT (deep vein thrombosis) On: 01-May-2018 Request PT (PROTHROMBIN TIME) ([id number]) : standing orderIndication: History of DVT (deep vein thrombosis) On: 01-May-2018 Request Comments: standing order PT (PROTHROMBIN TIME) ([id number]) : standing orderIndication: History of DVT (deep vein thrombosis) On: 01-May-2018 Request Comments: standing order PT (PROTHROMBIN TIME) ([id number]) : standing orderIndication: History of DVT (deep vein thrombosis) On: 01-May-2018 Request Comments: standing order PT (PROTHROMBIN TIME) ([id number]) : standing orderIndication: History of DVT (deep vein thrombosis) On: 30-Apr-2018 Request Comments: standing order PT (PROTHROMBIN TIME) ([id number]) : standing orderIndication: History of DVT (deep vein thrombosis) On: 30-Apr-2018 Request Comments: standing order PT (PROTHROMBIN TIME) ([id number]) : standing orderIndication: History of DVT (deep vein thrombosis) On: 29-Apr-2018 Request Comments: standing order PT (PROTHROMBIN TIME) ([id number]) : standing orderIndication: History of DVT (deep vein thrombosis) On: 29-Apr-2018 Request Comments: standing order PT (PROTHROMBIN TIME) ([id number]) : standing orderIndication: History of DVT (deep vein thrombosis) On: 28-Apr-2018 Request Comments: standing order PT (PROTHROMBIN TIME) ([id number]) : standing orderIndication: History of DVT (deep vein thrombosis) On: 28-Apr-2018 Request Comments: standing order PT (PROTHROMBIN TIME) ([id number]) : standing orderIndication: History of DVT (deep vein thrombosis) On: 27-Apr-2018 Request Comments: standing order PT (PROTHROMBIN TIME) ([id number]) : standing orderIndication: History of DVT (deep vein thrombosis) On: 27-Apr-2018 Request Comments: standing order PT (PROTHROMBIN TIME) ([id number]) : standing orderIndication: History of DVT (deep vein thrombosis) On: 26-Apr-2018 Request Comments: standing order PT (PROTHROMBIN TIME) ([id number]) : standing orderIndication: History of DVT (deep vein thrombosis) On: 26-Apr-2018 Request Comments: standing order PT (Prothrobim Time) ([id number])Indication: Anticoagulated on Coumadin On: 25-Apr-2018 Request PT (PROTHROMBIN TIME) ([id number]) : standing orderIndication: History of DVT (deep vein thrombosis) On: 25-Apr-2018 Request Comments: standing order PT (PROTHROMBIN TIME) ([id number]) : standing orderIndication: History of DVT (deep vein thrombosis) On: 25-Apr-2018 Request Comments: standing order PT (PROTHROMBIN TIME) ([id number]) : standing orderIndication: History of DVT (deep vein thrombosis) On: 24-Apr-2018 Request Comments: standing order PT (PROTHROMBIN TIME) ([id number]) : standing orderIndication: History of DVT (deep vein thrombosis) On: 24-Apr-2018 Request Comments: standing order PT (PROTHROMBIN TIME) ([id number]) : standing orderIndication: History of DVT (deep vein thrombosis) On: 23-Apr-2018 Request Comments: standing order PT (PROTHROMBIN TIME) ([id number]) : standing orderIndication: History of DVT (deep vein thrombosis) On: 23-Apr-2018 Request Comments: standing order PT (PROTHROMBIN TIME) ([id number]) : standing orderIndication: History of DVT (deep vein thrombosis) On: 22-Apr-2018 Request Comments: standing order PT (PROTHROMBIN TIME) ([id number]) : standing orderIndication: History of DVT (deep vein thrombosis) On: 22-Apr-2018 Request Comments: standing order PT (PROTHROMBIN TIME) ([id number]) : standing orderIndication: History of DVT (deep vein thrombosis) On: 21-Apr-2018 Request Comments: standing order PT (PROTHROMBIN TIME) ([id number]) : standing orderIndication: History of DVT (deep vein thrombosis) On: 21-Apr-2018 Request Comments: standing order PT (PROTHROMBIN TIME) ([id number]) : standing orderIndication: History of DVT (deep vein thrombosis) On: 20-Apr-2018 Request Comments: standing order PT (PROTHROMBIN TIME) ([id number]) : standing orderIndication: History of DVT (deep vein thrombosis) On: 20-Apr-2018 Request Comments: standing order PT (PROTHROMBIN TIME) ([id number]) : standing orderIndication: History of DVT (deep vein thrombosis) On: 19-Apr-2018 Request Comments: standing order PT (PROTHROMBIN TIME) ([id number]) : standing orderIndication: History of DVT (deep vein thrombosis) On: 19-Apr-2018 Request Comments: standing order CBC, Platelets & Auto Diff ([id number])Indication: Leukopenia On: 18-Apr-2018 Request PT (Prothrobim Time) ([id number])Indication: Anticoagulated on Coumadin On: 18-Apr-2018 Request PT (PROTHROMBIN TIME) ([id number]) : standing orderIndication: History of DVT (deep vein thrombosis) On: 18-Apr-2018 Request Comments: standing order PT (PROTHROMBIN TIME) ([id number]) : standing orderIndication: History of DVT (deep vein thrombosis) On: 18-Apr-2018 Request Comments: standing order PT (PROTHROMBIN TIME) ([id number]) : standing orderIndication: History of DVT (deep vein thrombosis) On: 17-Apr-2018 Request Comments: standing order PT (PROTHROMBIN TIME) ([id number]) : standing orderIndication: History of DVT (deep vein thrombosis) On: 17-Apr-2018 Request Comments: standing order PT (PROTHROMBIN TIME) ([id number]) : standing orderIndication: History of DVT (deep vein thrombosis) On: 16-Apr-2018 Request Comments: standing order PT (PROTHROMBIN TIME) ([id number]) : standing orderIndication: History of DVT (deep vein thrombosis) On: 16-Apr-2018 Request Comments: standing order PT (PROTHROMBIN TIME) ([id number]) : standing orderIndication: History of DVT (deep vein thrombosis) On: 15-Apr-2018 Request Comments: standing order PT (PROTHROMBIN TIME) ([id number]) : standing orderIndication: History of DVT (deep vein thrombosis) On: 15-Apr-2018 Request Comments: standing order PT (PROTHROMBIN TIME) ([id number]) : standing orderIndication: History of DVT (deep vein thrombosis) On: 14-Apr-2018 Request Comments: standing order PT (PROTHROMBIN TIME) ([id number]) : standing orderIndication: History of DVT (deep vein thrombosis) On: 14-Apr-2018 Request Comments: standing order PT (PROTHROMBIN TIME) ([id number]) : standing orderIndication: History of DVT (deep vein thrombosis) On: 13-Apr-2018 Request Comments: standing order PT (PROTHROMBIN TIME) ([id number]) : standing orderIndication: History of DVT (deep vein thrombosis) On: 13-Apr-2018 Request Comments: standing order PT (PROTHROMBIN TIME) ([id number]) : standing orderIndication: History of DVT (deep vein thrombosis) On: 12-Apr-2018 Request Comments: standing order PT (PROTHROMBIN TIME) ([id number]) : standing orderIndication: History of DVT (deep vein thrombosis) On: 12-Apr-2018 Request Comments: standing order PT (Prothrobim Time) ([id number])Indication: Anticoagulated on Coumadin On: 11-Apr-2018 Request PT (PROTHROMBIN TIME) ([id number]) : standing orderIndication: History of DVT (deep vein thrombosis) On: 11-Apr-2018 Request Comments: standing order PT (PROTHROMBIN TIME) ([id number]) : standing orderIndication: History of DVT (deep vein thrombosis) On: 11-Apr-2018 Request Comments: standing order PT (PROTHROMBIN TIME) ([id number]) : standing orderIndication: History of DVT (deep vein thrombosis) On: 10-Apr-2018 Request Comments: standing order PT (PROTHROMBIN TIME) ([id number]) : standing orderIndication: History of DVT (deep vein thrombosis) On: 10-Apr-2018 Request Comments: standing order PT (PROTHROMBIN TIME) ([id number]) : standing orderIndication: History of DVT (deep vein thrombosis) On: 09-Apr-2018 Request Comments: standing order PT (PROTHROMBIN TIME) ([id number]) : standing orderIndication: History of DVT (deep vein thrombosis) On: 09-Apr-2018 Request Comments: standing order PT (PROTHROMBIN TIME) ([id number]) : standing orderIndication: History of DVT (deep vein thrombosis) On: 08-Apr-2018 Request Comments: standing order PT (PROTHROMBIN TIME) ([id number]) : standing orderIndication: History of DVT (deep vein thrombosis) On: 08-Apr-2018 Request Comments: standing order PT (PROTHROMBIN TIME) ([id number]) : standing orderIndication: History of DVT (deep vein thrombosis) On: 07-Apr-2018 Request Comments: standing order PT (PROTHROMBIN TIME) ([id number]) : standing orderIndication: History of DVT (deep vein thrombosis) On: 07-Apr-2018 Request Comments: standing order PT (PROTHROMBIN TIME) ([id number]) : standing orderIndication: History of DVT (deep vein thrombosis) On: 06-Apr-2018 Request Comments: standing order PT (PROTHROMBIN TIME) ([id number]) : standing orderIndication: History of DVT (deep vein thrombosis) On: 06-Apr-2018 Request Comments: standing order PT (PROTHROMBIN TIME) ([id number]) : standing orderIndication: History of DVT (deep vein thrombosis) On: 05-Apr-2018 Request Comments: standing order PT (PROTHROMBIN TIME) ([id number]) : standing orderIndication: History of DVT (deep vein thrombosis) On: 05-Apr-2018 Request Comments: standing order PT (Prothrobim Time) ([id number])Indication: Anticoagulated on Coumadin On: 04-Apr-2018 Request PT (PROTHROMBIN TIME) ([id number]) : standing orderIndication: History of DVT (deep vein thrombosis) On: 04-Apr-2018 Request Comments: standing order PT (PROTHROMBIN TIME) ([id number]) : standing orderIndication: History of DVT (deep vein thrombosis) On: 04-Apr-2018 Request Comments: standing order PT (Prothrobim Time) ([id number])Indication: History of DVT (deep vein thrombosis) On: 03-Apr-2018 Request Comments: INR PT (PROTHROMBIN TIME) ([id number]) : standing orderIndication: History of DVT (deep vein thrombosis) On: 03-Apr-2018 Request Comments: standing order PT (PROTHROMBIN TIME) ([id number]) : standing orderIndication: History of DVT (deep vein thrombosis) On: 03-Apr-2018 Request Comments: standing order PT (PROTHROMBIN TIME) ([id number]) : standing orderIndication: History of DVT (deep vein thrombosis) On: 02-Apr-2018 Request Comments: standing order PT (PROTHROMBIN TIME) ([id number]) : standing orderIndication: History of DVT (deep vein thrombosis) On: 02-Apr-2018 Request Comments: standing order PT (PROTHROMBIN TIME) ([id number])Indication: History of DVT (deep vein thrombosis) On: 01-Apr-2018 Request PT (PROTHROMBIN TIME) ([id number]) : standing orderIndication: History of DVT (deep vein thrombosis) On: 01-Apr-2018 Request Comments: standing order PT (PROTHROMBIN TIME) ([id number]) : standing orderIndication: History of DVT (deep vein thrombosis) On: 01-Apr-2018 Request Comments: standing order PT (PROTHROMBIN TIME) ([id number]) : standing orderIndication: History of DVT (deep vein thrombosis) On: 01-Apr-2018 Request Comments: standing order PT (PROTHROMBIN TIME) ([id number]) : standing orderIndication: History of DVT (deep vein thrombosis) On: 31-Mar-2018 Request Comments: standing order PT (PROTHROMBIN TIME) ([id number]) : standing orderIndication: History of DVT (deep vein thrombosis) On: 31-Mar-2018 Request Comments: standing order PT (PROTHROMBIN TIME) ([id number]) : standing orderIndication: History of DVT (deep vein thrombosis) On: 30-Mar-2018 Request Comments: standing order PT (PROTHROMBIN TIME) ([id number]) : standing orderIndication: History of DVT (deep vein thrombosis) On: 30-Mar-2018 Request Comments: standing order PT (PROTHROMBIN TIME) ([id number]) : standing orderIndication: History of DVT (deep vein thrombosis) On: 29-Mar-2018 Request Comments: standing order PT (PROTHROMBIN TIME) ([id number]) : standing orderIndication: History of DVT (deep vein thrombosis) On: 29-Mar-2018 Request Comments: standing order PT (Prothrobim Time) ([id number])Indication: Anticoagulated on Coumadin On: 28-Mar-2018 Request PT (PROTHROMBIN TIME) ([id number]) : standing orderIndication: History of DVT (deep vein thrombosis) On: 28-Mar-2018 Request Comments: standing order PT (PROTHROMBIN TIME) ([id number]) : standing orderIndication: History of DVT (deep vein thrombosis) On: 28-Mar-2018 Request Comments: standing order PT (PROTHROMBIN TIME) ([id number]) : standing orderIndication: History of DVT (deep vein thrombosis) On: 27-Mar-2018 Request Comments: standing order PT (PROTHROMBIN TIME) ([id number]) : standing orderIndication: History of DVT (deep vein thrombosis) On: 27-Mar-2018 Request Comments: standing order PT (PROTHROMBIN TIME) ([id number]) : standing orderIndication: History of DVT (deep vein thrombosis) On: 26-Mar-2018 Request Comments: standing order PT (PROTHROMBIN TIME) ([id number]) : standing orderIndication: History of DVT (deep vein thrombosis) On: 26-Mar-2018 Request Comments: standing order PT (PROTHROMBIN TIME) ([id number]) : standing orderIndication: History of DVT (deep vein thrombosis) On: 25-Mar-2018 Request Comments: standing order PT (PROTHROMBIN TIME) ([id number]) : standing orderIndication: History of DVT (deep vein thrombosis) On: 25-Mar-2018 Request Comments: standing order PT (PROTHROMBIN TIME) ([id number]) : standing orderIndication: History of DVT (deep vein thrombosis) On: 24-Mar-2018 Request Comments: standing order PT (PROTHROMBIN TIME) ([id number]) : standing orderIndication: History of DVT (deep vein thrombosis) On: 24-Mar-2018 Request Comments: standing order PT (PROTHROMBIN TIME) ([id number]) : standing orderIndication: History of DVT (deep vein thrombosis) On: 23-Mar-2018 Request Comments: standing order PT (PROTHROMBIN TIME) ([id number]) : standing orderIndication: History of DVT (deep vein thrombosis) On: 23-Mar-2018 Request Comments: standing order PT (PROTHROMBIN TIME) ([id number]) : standing orderIndication: History of DVT (deep vein thrombosis) On: 22-Mar-2018 Request Comments: standing order PT (PROTHROMBIN TIME) ([id number]) : standing orderIndication: History of DVT (deep vein thrombosis) On: 22-Mar-2018 Request Comments: standing order PT (Prothrobim Time) ([id number])Indication: Anticoagulated on Coumadin On: 21-Mar-2018 Request PT (PROTHROMBIN TIME) ([id number]) : standing orderIndication: History of DVT (deep vein thrombosis) On: 21-Mar-2018 Request Comments: standing order PT (PROTHROMBIN TIME) ([id number]) : standing orderIndication: History of DVT (deep vein thrombosis) On: 21-Mar-2018 Request Comments: standing order PT (PROTHROMBIN TIME) ([id number]) : standing orderIndication: History of DVT (deep vein thrombosis) On: 20-Mar-2018 Request Comments: standing order PT (PROTHROMBIN TIME) ([id number]) : standing orderIndication: History of DVT (deep vein thrombosis) On: 20-Mar-2018 Request Comments: standing order PT (PROTHROMBIN TIME) ([id number]) : standing orderIndication: History of DVT (deep vein thrombosis) On: 19-Mar-2018 Request Comments: standing order PT (PROTHROMBIN TIME) ([id number]) : standing orderIndication: History of DVT (deep vein thrombosis) On: 19-Mar-2018 Request Comments: standing order PT (PROTHROMBIN TIME) ([id number]) : standing orderIndication: History of DVT (deep vein thrombosis) On: 18-Mar-2018 Request Comments: standing order PT (PROTHROMBIN TIME) ([id number]) : standing orderIndication: History of DVT (deep vein thrombosis) On: 18-Mar-2018 Request Comments: standing order PT (PROTHROMBIN TIME) ([id number]) : standing orderIndication: History of DVT (deep vein thrombosis) On: 17-Mar-2018 Request Comments: standing order PT (PROTHROMBIN TIME) ([id number]) : standing orderIndication: History of DVT (deep vein thrombosis) On: 17-Mar-2018 Request Comments: standing order PT (PROTHROMBIN TIME) ([id number]) : standing orderIndication: History of DVT (deep vein thrombosis) On: 16-Mar-2018 Request Comments: standing order PT (PROTHROMBIN TIME) ([id number]) : standing orderIndication: History of DVT (deep vein thrombosis) On: 16-Mar-2018 Request Comments: standing order PT (PROTHROMBIN TIME) ([id number]) : standing orderIndication: History of DVT (deep vein thrombosis) On: 15-Mar-2018 Request Comments: standing order PT (PROTHROMBIN TIME) ([id number]) : standing orderIndication: History of DVT (deep vein thrombosis) On: 15-Mar-2018 Request Comments: standing order PT (Prothrobim Time) ([id number])Indication: Anticoagulated on Coumadin On: 14-Mar-2018 Request PT (PROTHROMBIN TIME) ([id number]) : standing orderIndication: History of DVT (deep vein thrombosis) On: 14-Mar-2018 Request Comments: standing order PT (PROTHROMBIN TIME) ([id number]) : standing orderIndication: History of DVT (deep vein thrombosis) On: 14-Mar-2018 Request Comments: standing order PT (PROTHROMBIN TIME) ([id number]) : standing orderIndication: History of DVT (deep vein thrombosis) On: 13-Mar-2018 Request Comments: standing order PT (PROTHROMBIN TIME) ([id number]) : standing orderIndication: History of DVT (deep vein thrombosis) On: 13-Mar-2018 Request Comments: standing order PT (PROTHROMBIN TIME) ([id number]) : standing orderIndication: History of DVT (deep vein thrombosis) On: 12-Mar-2018 Request Comments: standing order PT (PROTHROMBIN TIME) ([id number]) : standing orderIndication: History of DVT (deep vein thrombosis) On: 12-Mar-2018 Request Comments: standing order PT (PROTHROMBIN TIME) ([id number]) : standing orderIndication: History of DVT (deep vein thrombosis) On: 11-Mar-2018 Request Comments: standing order PT (PROTHROMBIN TIME) ([id number]) : standing orderIndication: History of DVT (deep vein thrombosis) On: 11-Mar-2018 Request Comments: standing order PT (PROTHROMBIN TIME) ([id number]) : standing orderIndication: History of DVT (deep vein thrombosis) On: 10-Mar-2018 Request Comments: standing order PT (PROTHROMBIN TIME) ([id number]) : standing orderIndication: History of DVT (deep vein thrombosis) On: 10-Mar-2018 Request Comments: standing order PT (PROTHROMBIN TIME) ([id number]) : standing orderIndication: History of DVT (deep vein thrombosis) On: 09-Mar-2018 Request Comments: standing order PT (PROTHROMBIN TIME) ([id number]) : standing orderIndication: History of DVT (deep vein thrombosis) On: 09-Mar-2018 Request Comments: standing order PT (PROTHROMBIN TIME) ([id number]) : standing orderIndication: History of DVT (deep vein thrombosis) On: 08-Mar-2018 Request Comments: standing order PT (PROTHROMBIN TIME) ([id number]) : standing orderIndication: History of DVT (deep vein thrombosis) On: 08-Mar-2018 Request Comments: standing order PT (Prothrobim Time) ([id number])Indication: Anticoagulated on Coumadin On: 07-Mar-2018 Request PT (PROTHROMBIN TIME) ([id number]) : standing orderIndication: History of DVT (deep vein thrombosis) On: 07-Mar-2018 Request Comments: standing order PT (PROTHROMBIN TIME) ([id number]) : standing orderIndication: History of DVT (deep vein thrombosis) On: 07-Mar-2018 Request Comments: standing order PT (PROTHROMBIN TIME) ([id number]) : standing orderIndication: History of DVT (deep vein thrombosis) On: 06-Mar-2018 Request Comments: standing order PT (PROTHROMBIN TIME) ([id number]) : standing orderIndication: History of DVT (deep vein thrombosis) On: 06-Mar-2018 Request Comments: standing order PT (PROTHROMBIN TIME) ([id number]) : standing orderIndication: History of DVT (deep vein thrombosis) On: 05-Mar-2018 Request Comments: standing order PT (PROTHROMBIN TIME) ([id number]) : standing orderIndication: History of DVT (deep vein thrombosis) On: 05-Mar-2018 Request Comments: standing order PT (Prothrobim Time) ([id number])Indication: History of DVT (deep vein thrombosis) On: 71-Kpt-55318:49 Request Comments: INR PT (PROTHROMBIN TIME) ([id number]) : standing orderIndication: History of DVT (deep vein thrombosis) On: 04-Mar-2018 Request Comments: standing order PT (PROTHROMBIN TIME) ([id number]) : standing orderIndication: History of DVT (deep vein thrombosis) On: 04-Mar-2018 Request Comments: standing order PT (PROTHROMBIN TIME) ([id number]) : standing orderIndication: History of DVT (deep vein thrombosis) On: 03-Mar-2018 Request Comments: standing order PT (PROTHROMBIN TIME) ([id number]) : standing orderIndication: History of DVT (deep vein thrombosis) On: 03-Mar-2018 Request Comments: standing order PT (PROTHROMBIN TIME) ([id number])Indication: History of DVT (deep vein thrombosis) On: 79-Zts-105820:54 Request PT (PROTHROMBIN TIME) ([id number]) : standing orderIndication: History of DVT (deep vein thrombosis) On: 38-Emg-365214:48 Request Comments: standing order PT (Prothrobim Time) ([id number])Indication: Anticoagulated on Coumadin On: 28-Feb-2018 Request PT (Prothrobim Time) ([id number])Indication: Anticoagulated on Coumadin On: 21-Feb-2018 Request PT (Prothrobim Time) ([id number])Indication: Anticoagulated on Coumadin On: 14-Feb-2018 Request YURIY (ANTINUCLEAR ANTIBODY) ([id number])Indication: Leukopenia On: 5-Ibi-557085:30 Request Comments: give lab slips UPEP ([id number])Indication: Leukopenia On: 9-Gke-090190:30 Request Comments: give lab slips SPEP ([id number])Indication: Leukopenia On: 6-Yvb-749137:29 Request Comments: give lab slips PT (Prothrobim Time) ([id number])Indication: Anticoagulated on Coumadin On: 07-Feb-2018 Request PT (Prothrobim Time) ([id number])Indication: Anticoagulated on Coumadin On: 31-Jan-2018 Request PT (Prothrobim Time) ([id number])Indication: Anticoagulated on Coumadin On: 24-Jan-2018 Request PT (Prothrobim Time) ([id number])Indication: Anticoagulated on Coumadin On: 17-Jan-2018 Request PT (Prothrobim Time) ([id number])Indication: Anticoagulated on Coumadin On: 10-Jan-2018 Request PT (Prothrobim Time) ([id number])Indication: Anticoagulated on Coumadin On: 03-Jan-2018 Request PT (Prothrobim Time) ([id number])Indication: Anticoagulated on Coumadin On: 27-Dec-2017 Request PT (Prothrobim Time) ([id number])Indication: Anticoagulated on Coumadin On: 20-Dec-2017 Request BILIRUBIN, TOTAL ([id number])Indication: Encounter for screening for lipid disorder On: :28 Request BILIRUBIN, DIRECT ([id number])Indication: Encounter for screening for lipid disorder On: 44-Wyk-311462:28 Request CBC, PLATELETS & AUT DIFF ([id number])Indication: Encounter for screening for lipid disorder On: 80-Irp-172094:47 Request Metabolic Panel, Comprehensive ([id number])Indication: Encounter for screening for lipid disorder On: 18-Dir-37535:10 Request CBC & PLATELETS (AUTO) ([id number])Indication: Encounter for screening for lipid disorder On: 74-Fdb-04651:10 Request LIPID PANEL ([id number])Indication: Encounter for screening for lipid disorder On: 03-Qmb-43015:09 Request PT (Prothrobim Time) ([id number])Indication: Anticoagulated on Coumadin On: 13-Dec-2017 Request PT (Prothrobim Time) ([id number])Indication: Anticoagulated on Coumadin On: 06-Dec-2017 Request PT (Prothrobim Time) ([id number])Indication: Anticoagulated on Coumadin On: 29-Nov-2017 Request PT (Prothrobim Time) ([id number])Indication: Anticoagulated on Coumadin On: 22-Nov-2017 Request PT (Prothrobim Time) ([id number])Indication: Anticoagulated on Coumadin On: 15-Nov-2017 Request PT (Prothrobim Time) ([id number])Indication: Anticoagulated on Coumadin On: 08-Nov-2017 Request PT (Prothrobim Time) ([id number])Indication: Anticoagulated on Coumadin On: 01-Nov-2017 Request PT (Prothrobim Time) ([id number])Indication: Anticoagulated on Coumadin On: 25-Oct-2017 Request PT (Prothrobim Time) ([id number])Indication: Anticoagulated on Coumadin On: 18-Oct-2017 Request PT (Prothrobim Time) ([id number])Indication: Anticoagulated on Coumadin On: 11-Oct-2017 Request PT (Prothrobim Time) ([id number])Indication: Anticoagulated on Coumadin On: 04-Oct-2017 Request PT (Prothrobim Time) ([id number])Indication: Anticoagulated on Coumadin On: 27-Sep-2017 Request PT (Prothrobim Time) ([id number])Indication: Anticoagulated on Coumadin On: 20-Sep-2017 Request PT (Prothrobim Time) ([id number])Indication: Anticoagulated on Coumadin On: 13-Sep-2017 Request PT (Prothrobim Time) ([id number])Indication: Anticoagulated on Coumadin On: 06-Sep-2017 Request PT (Prothrobim Time) ([id number])Indication: Anticoagulated on Coumadin On: 30-Aug-2017 Request PT (Prothrobim Time) ([id number])Indication: Anticoagulated on Coumadin On: 23-Aug-2017 Request PT (Prothrobim Time) ([id number])Indication: Anticoagulated on Coumadin On: 16-Aug-2017 Request PT (Prothrobim Time) ([id number])Indication: Anticoagulated on Coumadin On: 09-Aug-2017 Request PT (Prothrobim Time) ([id number])Indication: Anticoagulated on Coumadin On: 02-Aug-2017 Request PT (Prothrobim Time) ([id number])Indication: Anticoagulated on Coumadin On: 26-Jul-2017 Request PT (Prothrobim Time) ([id number])Indication: Anticoagulated on Coumadin On: 19-Jul-2017 Request PT (Prothrobim Time) ([id number])Indication: Anticoagulated on Coumadin On: 12-Jul-2017 Request PT (Prothrobim Time) ([id number])Indication: Anticoagulated on Coumadin On: 05-Jul-2017 Request PT (Prothrobim Time) ([id number])Indication: Anticoagulated on Coumadin On: 28-Jun-2017 Request PT (Prothrobim Time) ([id number])Indication: Anticoagulated on Coumadin On: 21-Jun-2017 Request PT (Prothrobim Time) ([id number])Indication: Anticoagulated on Coumadin On: 14-Jun-2017 Request PT (Prothrobim Time) ([id number])Indication: Anticoagulated on Coumadin On: 07-Jun-2017 Request PT (Prothrobim Time) ([id number])Indication: Anticoagulated on Coumadin On: 31-May-2017 Request PT (Prothrobim Time) ([id number])Indication: Anticoagulated on Coumadin On: 25-May-2017 Request PT (Prothrobim Time) ([id number])Indication: Anticoagulated on Coumadin On: 25-May-2017 Request PT (Prothrobim Time) ([id number])Indication: Anticoagulated on Coumadin On: 24-May-2017 Request PT (Prothrobim Time) ([id number])Indication: Anticoagulated on Coumadin On: 17-May-2017 Request PT (Prothrobim Time) ([id number])Indication: Anticoagulated on Coumadin On: 10-May-2017 Request PT (Prothrobim Time) ([id number])Indication: Anticoagulated on Coumadin On: 03-May-2017 Request PT (Prothrobim Time) ([id number])Indication: Anticoagulated on Coumadin On: 26-Apr-2017 Request PT (Prothrobim Time) ([id number])Indication: Anticoagulated on Coumadin On: 25-Apr-2017 Request PT (Prothrobim Time) ([id number])Indication: Anticoagulated on Coumadin On: 25-Apr-2017 Request PT (Prothrobim Time) ([id number])Indication: Anticoagulated on Coumadin On: 19-Apr-2017 Request PT (Prothrobim Time) ([id number])Indication: Anticoagulated on Coumadin On: 12-Apr-2017 Request PT (Prothrobim Time) ([id number])Indication: Anticoagulated on Coumadin On: 05-Apr-2017 Request PT (Prothrobim Time) ([id number])Indication: Anticoagulated on Coumadin On: 29-Mar-2017 Request PT (Prothrobim Time) ([id number])Indication: Anticoagulated on Coumadin On: 26-Mar-2017 Request PT (Prothrobim Time) ([id number])Indication: Anticoagulated on Coumadin On: 26-Mar-2017 Request PT (Prothrobim Time) ([id number])Indication: Anticoagulated on Coumadin On: 22-Mar-2017 Request PT (Prothrobim Time) ([id number])Indication: Anticoagulated on Coumadin On: 15-Mar-2017 Request PT (Prothrobim Time) ([id number])Indication: Anticoagulated on Coumadin On: 08-Mar-2017 Request PT (Prothrobim Time) ([id number])Indication: 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 (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) On: 30-Hcd-482104:48 Request Comments: Standing order PT (Prothrobim Time) ([id number])Indication: Anticoagulated on Coumadin On: 01-Mar-2017 Request PT (Prothrobim Time) ([id number])Indication: Anticoagulated on Coumadin On: 24-Feb-2017 Request PT (Prothrobim Time) ([id number])Indication: Anticoagulated on Coumadin On: 24-Feb-2017 Request PT (Prothrobim Time) ([id number])Indication: Anticoagulated on Coumadin On: 22-Feb-2017 Request PT (Prothrobim Time) ([id number])Indication: Anticoagulated on Coumadin On: 15-Feb-2017 Request PT (Prothrobim Time) ([id number])Indication: Anticoagulated on Coumadin On: 08-Feb-2017 Request PT (Prothrobim Time) ([id number])Indication: Anticoagulated on Coumadin On: 01-Feb-2017 Request PT (Prothrobim Time) ([id number])Indication: Anticoagulated on Coumadin On: 25-Jan-2017 Request PT (Prothrobim Time) ([id number])Indication: Anticoagulated on Coumadin On: 25-Jan-2017 Request PT (Prothrobim Time) ([id number])Indication: Anticoagulated on Coumadin On: 25-Jan-2017 Request PT (Prothrobim Time) ([id number])Indication: Anticoagulated on Coumadin On: 18-Jan-2017 Request PT (Prothrobim Time) ([id number])Indication: Anticoagulated on Coumadin On: 11-Jan-2017 Request PT (Prothrobim Time) ([id number])Indication: Anticoagulated on Coumadin On: 04-Jan-2017 Request PT (Prothrobim Time) ([id number])Indication: Anticoagulated on Coumadin On: 28-Dec-2016 Request PT (Prothrobim Time) ([id number])Indication: Anticoagulated on Coumadin On: 26-Dec-2016 Request PT (Prothrobim Time) ([id number])Indication: Anticoagulated on Coumadin On: 26-Dec-2016 Request PT (Prothrobim Time) ([id number])Indication: Anticoagulated on Coumadin On: 21-Dec-2016 Request PT (Prothrobim Time) ([id number])Indication: Anticoagulated on Coumadin On: 14-Dec-2016 Request PT (Prothrobim Time) ([id number])Indication: Anticoagulated on Coumadin On: 07-Dec-2016 Request PT (Prothrobim Time) ([id number])Indication: Anticoagulated on Coumadin On: 30-Nov-2016 Request PT (Prothrobim Time) ([id number])Indication: Anticoagulated on Coumadin On: 26-Nov-2016 Request PT (Prothrobim Time) ([id number])Indication: Anticoagulated on Coumadin On: 26-Nov-2016 Request PT (Prothrobim Time) ([id number])Indication: Anticoagulated on Coumadin On: 23-Nov-2016 Request PT (Prothrobim Time) ([id number])Indication: Anticoagulated on Coumadin On: 16-Nov-2016 Request PT (Prothrobim Time) ([id number])Indication: Anticoagulated on Coumadin On: 09-Nov-2016 Request PT (Prothrobim Time) ([id number])Indication: Anticoagulated on Coumadin On: 02-Nov-2016 Request PT (Prothrobim Time) ([id number])Indication: Anticoagulated on Coumadin On: 27-Oct-2016 Request PT (Prothrobim Time) ([id number])Indication: Anticoagulated on Coumadin On: 27-Oct-2016 Request PT (Prothrobim Time) ([id number])Indication: Anticoagulated on Coumadin On: 26-Oct-2016 Request PT (Prothrobim Time) ([id number])Indication: Anticoagulated on Coumadin On: 19-Oct-2016 Request PT (Prothrobim Time) ([id number])Indication: Anticoagulated on Coumadin On: 12-Oct-2016 Request PT (Prothrobim Time) ([id number])Indication: Anticoagulated on Coumadin On: 05-Oct-2016 Request PT (Prothrobim Time) ([id number])Indication: Anticoagulated on Coumadin On: 28-Sep-2016 Request PT (Prothrobim Time) ([id number])Indication: Anticoagulated on Coumadin On: 27-Sep-2016 Request PT (Prothrobim Time) ([id number])Indication: Anticoagulated on Coumadin On: 27-Sep-2016 Request PT (Prothrobim Time) ([id number])Indication: Anticoagulated on Coumadin On: 21-Sep-2016 Request PT (Prothrobim Time) ([id number])Indication: Anticoagulated on Coumadin On: 14-Sep-2016 Request PT (Prothrobim Time) ([id number])Indication: Anticoagulated on Coumadin On: 07-Sep-2016 Request PT (Prothrobim Time) ([id number])Indication: Anticoagulated on Coumadin On: 31-Aug-2016 Request PT (Prothrobim Time) ([id number])Indication: Anticoagulated on Coumadin On: 28-Aug-2016 Request PT (Prothrobim Time) ([id number])Indication: Anticoagulated on Coumadin On: 28-Aug-2016 Request PT (Prothrobim Time) ([id number])Indication: Anticoagulated on Coumadin On: 24-Aug-2016 Request PT (Prothrobim Time) ([id number])Indication: Anticoagulated on Coumadin On: 17-Aug-2016 Request PT (Prothrobim Time) ([id number])Indication: Anticoagulated on Coumadin On: 10-Aug-2016 Request PT (Prothrobim Time) ([id number])Indication: Anticoagulated on Coumadin On: 03-Aug-2016 Request PT (Prothrobim Time) ([id number])Indication: Anticoagulated on Coumadin On: 29-Jul-2016 Request PT (Prothrobim Time) ([id number])Indication: Anticoagulated on Coumadin On: 29-Jul-2016 Request PT (Prothrobim Time) ([id number])Indication: Anticoagulated on Coumadin On: 27-Jul-2016 Request PT (Prothrobim Time) ([id number])Indication: Anticoagulated on Coumadin On: 20-Jul-2016 Request PT (Prothrobim Time) ([id number])Indication: Anticoagulated on Coumadin On: 13-Jul-2016 Request PT (Prothrobim Time) ([id number])Indication: Anticoagulated on Coumadin On: 06-Jul-2016 Request Metabolic Panel, Comprehensive ([id number])Indication: Irritable Bowel Syndrome On: 69-Deb-518768:28 Request TSH ([id number])Indication: Irritable Bowel Syndrome On: 01-Mvi-434966:28 Request CBC, Platelets & Auto Diff ([id number])Indication: Irritable Bowel Syndrome On: 96-Qxp-541541:28 Request PT (Prothrobim Time) ([id number])Indication: Anticoagulated on Coumadin On: 57-Nbt-001445:24 Request PT (Prothrobim Time) ([id number])Indication: DVT (deep venous thrombosis) On: 31-Mqp-577654:11 Request Comments: INR - STANDING ORDER Vitamin D Hydroxy ([id number])Indication: Osteoporosis On: 49-Dcl-376221:16 Request TSH ([id number])Indication: Osteoporosis On: :16 Request CBC with auto diff ([id number])Indication: Benign Essential Hypertension On: 53-Dbw-791976:16 Request METABOLIC PANEL, COMPREHENSIVE ([id number])Indication: Benign Essential Hypertension On: 41-Asr-357841:16 Request LIPID PANEL ([id number])Indication: Hyperlipidemia On: 02-Use-729618:16 Request CBC W/AUTO DIFF WBC ([id number])Indication: Benign Essential Hypertension On: 5-Dgg-047464:34 Request METABOLIC PANEL, COMPREHENSIVE ([id number])Indication: Benign Essential Hypertension On: 7-Wzp-421068:34 Request TSH ([id number])Indication: Osteoporosis On: :39 Request CBC W/AUTO DIFF WBC ([id number])Indication: Osteoporosis On: :39 Request LIPID PANEL ([id number])Indication: Hyperlipidemia On: :38 Request METABOLIC PANEL, COMPREHENSIVE ([id number])Indication: Benign Essential Hypertension On: :38 Request PT (Prothrobim Time) ([id number])Indication: DVT (deep venous thrombosis) On: 3-Hlq-834128:18 Request Comments: FINGER STICKSTANDING ORDER PT (Prothrobim Time) ([id number])Indication: DVT (deep venous thrombosis) On: 62-Jvk-178246:28 Request Comments: Standing Order URINALYSIS, W/ MICRO ([id number])Indication: Benign Essential Hypertension On: :37 Request METABOLIC PANEL, COMPREHENSIVE ([id number])Indication: Benign Essential Hypertension On: :37 Request LIPID PANEL ([id number])Indication: Hyperlipidemia On: :37 Request CBC W/AUTO DIFF WBC ([id number])Indication: DVT (deep venous thrombosis) On: :37 Request PT (Prothrobim Time) ([id number])Indication: DVT (deep venous thrombosis) On: 33-Izm-995503:02 Request CBC WITH MANUAL DIFF ([id number])Indication: Benign Essential Hypertension On: :39 Request METABOLIC PANEL, COMPREHENSIVE ([id number])Indication: Hyperlipidemia On: :39 Request LIPID PANEL ([id number])Indication: Hyperlipidemia On: :39 Request PT (Prothrobim Time) ([id number])Indication: DVT (deep venous thrombosis) On: 30-Duk-81770:07 Request Comments: pls call pharmacy operations manager Dr Hunter with results on 05/20/13 PT (Prothrobim Time) ([id number])Indication: DVT (deep venous thrombosis) On: 71-Pxv-661901:00 Request Comments: Standing Order PT (Prothrobim Time) ([id number])Indication: DVT (deep venous thrombosis) On: 02-Qja-79848:59 Request Comments: INR - STANDING ORDER x 1 year URINALYSIS, W/ MICRO ([id number])Indication: Benign Essential Hypertension On: :15 Request CBC WITH MANUAL DIFF ([id number])Indication: Benign Essential Hypertension On: :15 Request METABOLIC PANEL, COMPREHENSIVE ([id number])Indication: Benign Essential Hypertension On: :14 Request LIPID PANEL ([id number])Indication: Hyperlipidemia On: :14 Request METABOLIC PANEL, COMPREHENSIVE ([id number])Indication: Benign Essential Hypertension On: :06 Request LIPID PANEL ([id number])Indication: Hyperlipidemia On: :06 Request URINE HANNAH CULTURE-IDENTIFICATN ([id number])Indication: Urinary frequency On: :56 Request URINE HANNAH CULTURE-IDENTIFICATN ([id number])Indication: Insect bite On: 88-Czu-267128:19 Request Lyme Disease,Serum, Western Blot ([id number])Indication: Insect bite On: 82-Pbi-705840:19 Request PT (Prothrobim Time) ([id number])Indication: DVT (deep venous thrombosis) On: 37-Bkx-488446:59 Request Comments: standing order LIPID PANEL ([id number])Indication: FAMILY HISTORY OF ISCHEMIC HEART DISEASE On: 04-Rrx-299821:28 Request LIPID PANEL ([id number])Indication: FAMILY HISTORY OF ISCHEMIC HEART DISEASE On: 2-Zzg-361140:51 Request Vitamin D Hydroxy ([id number])Indication: Osteoporosis On: :18 Request TSH ([id number])Indication: Osteoporosis On: :18 Request URINALYSIS, W/ MICRO ([id number])Indication: Osteoporosis On: :18 Request CBC WITH MANUAL DIFF ([id number])Indication: Osteoporosis On: 1-Ikz-853365:18 Request METABOLIC PANEL, COMPREHENSIVE ([id number])Indication: Osteoporosis On: 1-Eyy-739292:18 Request PTT (Activated Partial Thromboplastin Time) ([id number])Indication: DVT (deep venous thrombosis) On: 0-Wcp-032865:16 Request PT (Prothrobim Time) ([id number])Indication: DVT (deep venous thrombosis) On: 6-Pni-548126:16 Request Planned Encounters Medical; 3 Month FU - On: 17-May-2018 8:30 [facility] Selam Blair CNP, CNP, Mary E Planned Procedures DOPPLER ULTRASOUND OF LEFT LOWER On: 14-Feb-2018 Intent EXTREMITY FOR VENOUS THROMBOEMBOLISM Comments: STAT R/O DVT-Hx of DVT ([id number])By: Sigrid Mobley DEXA SCAN AXIAL SKELETON ([id number])By: On: 17-Dec-2017 Intent Selam Blair CNP, CNP, Mary E Aerosol Treatment ([id number])By: Johnnie On: 02-Jun-2017 Intent Selam DAVIES CNP, Mary E Ultrasound - LiverBy: Selam Blair CNP On: 15-Dec-2016 Intent E Selam Bliar CNP Aerosol Treatment ([id number])By: Johnnie On: 13-Oct-2016 Intent FOOD SERVICE DRIVER, Brenda Ciesa FOOD SERVICE DRIVER, Brenda Aerosol Treatment ([id number])By: Aleksey On: 19-Feb-2015 Intent Eliana HOFFMANN Ultrasound - AortaBy: Helen Barnes DO On: 18-Dec-2014 Intent EKG ([id number])By: Helen Barnes DO On: 05-Nov-2014 Intent Comments: ekg showed normal sinus rhythym, normal axis, no acute st/t wave changes BILATERAL MAMMOGRAMS ([id number])By: Timothy On: 17-Sep-2014 Intent Helen B[place] Radiology - Shoulder - LeftBy: Bonezzi On: 05-Mar-2014 Intent Fatimah RANDLE Comments: if not better with PT MAMMOGRAM, SCREENING, BOTH BREASTS On: 08-Aug-2013 Intent ([id number])By: Helen Barnes DO Eprescribed prescriptions ([id number])By: On: 08-Aug-2013 Intent Helen Barnes DO DXA, BONE DENSITY, AXIAL SKELETON On: 21-Oct-2012 Intent ([id number])By: Helen Barnes DO Comments: dexa- dec Eprescribed prescriptions ([id number])By: On: 21-Oct-2012 Intent So Bailey Breast Screening - BilateralBy: Timothy On: 19-Sep-2012 Helen Sanchez DO Eprescribed prescriptions ([id number])By: On: 30-Aug-2012 Intent So Bailey Spirometry ([id number])By: Helen Barnes DO On: 11-Mar-2012 Intent A Comments: good effort and curve mild obst- Doppler Ultrasound OtherBy: Timothy [place], On: 11-Mar-2012 Intent Helen Coley Comments: both legs- stat call results Eprescribed prescriptions ([id number])By: On: 11-Mar-2012 Intent So Bailey TD Injection , IM ([id number])By: Leo On: 11-Mar-2012 Intent So Comments: 2003 FLU VAC, SPLIT, >3 YEARS, INTRAMUSC On: 11-Mar-2012 Intent ([id number])By: So Bailey Comments: got at [facility] Instructions Name Dates Details BMI 22.0-22.9, adult [...] Coumadin : DISCONTINUED - PT (PROTHROMBIN TIME) ([id number]) Indication: Anticoagulated on Coumadin Irritable Bowel Syndrome [...] Instructions Indication: Osteoporosis Encounters Phone Encounter On: 04-Mar-2018 8:46 Encounter Diagnosis: History of DVT (deep vein thrombosis) End: 04-Mar-2018 8:51 [facility] Annotation/Addendum On: 02-Mar-2018 15:43 [facility] End: 02-Mar-2018 15:44 Phone Encounter On: 02-Mar-2018 11:54 Encounter Diagnosis: [...] 3.3 this was repeat. 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 The patient has noticed nothing from the geriatic depression scale. Other providers contributing to the patient's care are brickmason apprentice (dr. meseret santana) and other: (eye- dr. 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 The patient has noticed nothing from the geriatic depression scale. Other providers contributing to the patient's care are other: (dr crawford for eyes). 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 The p atient has noticed nothing from the geriatic depression scale. Other providers contributing to the patient's care are other: (ENT and dr crawford for eyes). Note for Annual Medicare Exam: Pt has WWE done by her RADIATION TECHNICIAN., [ADDITIONAL REASON] Follow up for chronic medical [...] cyst is gone- - still fluid in [place] and calcification- going to have D?C- [...] diet and still seeing lyme specialist in [place]- her weight comeing down and exercsing more [...] Lyme dz symptoms- pt went to [place] and had lyme dz treatment-), has End: [...] chronic medical issues: seeing lyme specialist in [place] and on meds for this and [place]- [...] FAMILY HISTORY OF ISCHEMIC HEART DISEASE (V17.3) [facility] Payers MedicareAARP/Chelo Bryant; a guarantor
--- OUTSIDE RECORDS SUMMARY | 2018-06-24 14:25 | XMS RPT_ITS | Continuity of Care Document ---
:1950 Author Organization [facility] Address [facility] [address] [place] [address] Phone Care Team Providers Name Role Phone [...] in [address] Status: Active long-term (current) use of anticoagulants (Renamed from crime data specialist current use of anticoagulant therapy) (Z79.01, V58.61) [...] Brenda Start : 13-Sep-2017 Active Calcium 1200 6358-2421 MG-UNIT Oral Tablet Chewable daily (0412-9475 MG-UNIT) Active Cinnamon 500 MG Oral Capsule [...] Quantity: 30 {Tablet} Refills: 1 Ordered:17-Dec-2017 Johnnie VICE PRESIDENT OF SOFTWARE DEVELOPMENT, Selam Taveras VICE PRESIDENT OF SOFTWARE DEVELOPMENT, Selam Latif Start : 17-Dec-2017 Active Latanoprost [...] 500MG (Oral Tablet) 1 (one) Tablet bid j14zysz for 10 days Quantity: 20 {Tablet} Refills: [...] (M85.80, 733.90) Status: Inactive as of 11-Mar-2012 [place] [facility] (H10.029, 372.03) Status: Inactive as of [...] Status: Resolved as of 21-Oct-2012 Vaccine for apsscoeagt-scutpgi-rsymczohi with poliomyelitis (Z23, V06.3) Status: Inactive as of 21-Oct-2012 Procedures Procedure Dates Details Appendectomy Completed D&C Completed Comments: 2014- shriner Tonsillectomy Completed Tubal Ligation Completed Date Value Details 16-Feb-2018 Venous Duplex Lower Extremity Result: Comments: See Note; NOTES: [facility] Cardiovascular Services [address] [place] [address] Venous Duplex US, Unilateral 02/15/18 1350 MR#: [id number] Acct: [id number] Name: YAHAIRA ENG Rep #: [id number] : 1950 67 From: Tony Valentino MD [...] Tony Valentino MD CC: Selam Blair NP; GAMMA FACILITIES OPERATOR-C Annie Mobley Date Dictated: 02/15/18 1350 Date Transcribed: 02/16/18812 Cut Off Machine Operator: Signed 23-Dec-2017 Dexa Bone Density Study Result: Comments: See Note; NOTES: [facility] Imaging Services [address] [place] [address] Dexa Bone Density Study MR#: [id number] Acct: [id number] Name: YAHAIRA BRYANT Rep #: [id number] : 1950 F 67 From: Cole Coronado MD PCP: Selam Blair NP Status: REG CLI Study: Dexa Bone Density Study Date of Exam: 12/23/17 Exam# [id number] Ordering Dr: Selam Blair STUDY: DUAL ENERGY [...] Cole Coronado MD at 8:50 EDT Tel [phone], Service support , CC: Selam Blair NP Cut Off Machine Operator: Signed 07-Oct-2017 SCREENING MAMM (CAD), BILAT Result: Comments: See Note; NOTES: [facility] Imaging Services [address] [place] [address] SCREENING MAMM (CAD), BILAT MR#: [id number] Acct: [id number] Name: YAHAIRA BRYANT Rep #: [id number] : 1950 F 67 From: Cole Coronado MD PCP: Selam Blair NP Status: [facility] CL Study: SCREENING MAMM (CAD), BILAT Date of Exam: 10/07/17 Exam# [id number] Ordering Dr: Aliza Santana MD MAMMOGRAPHY - [...] delay biopsy of a clinically suspicious abnormality. [id number] Electronically Signed: Cole Coronado MD at 11:23 EDT Tel [phone], Service support , CC: Selam Blair NP; Aliza Santana MD Cut Off Machine Operator: Signed 23-Sep-2017 Downtime Report Result: Comments: See Note; NOTES: [facility] Medical Records Department [address] [place] [address] Downtime Report MR#: [id number] Acct: [id number] Name: YAHAIRA BRYANT R Rep #: [id number] : 1950 67 From: Jered Kumar PCP: Selam Blair NP Status: REG CLI This patient was seen during an EMR downtime September 06, 2017 - September 13, 2017. This patient may have a combination of p aper and electronic documentation or all paper documentation. All documentation is viewable within the e-chart portion of [employer] for each patient visit. 16-Dec-2016 Liver Result: Comments: See Note; NOTES: [facility] Imaging Services [address] [place] [address] Liver MR#: [id number] Acct: [id number] Name: YAHAIRA BRYANT R Rep #: [id number] : 1950 F 66 From: Jose Mcghee MD PCP: Selam Blair Status: REG CLI Study: Liver Date of Exam: 12/16/16 Exam# [id number] Ordering Dr: Selam Blair STUDY: ABDOMINAL ULTRASOUND [...] MD at 16:28 EDT , Service support , CC: Selam Blair Cut Off Machine Operator: Signed 21-Dec-2014 Aorta Result: Comments: See Note; NOTES: [facility] Imaging Services [address] [place] [address] Ultrasound Report MR#: [id number] Acct: [id number] Name: YAHAIRA BRYANT Rep #: [id number] : 1950 F 64 From: Cole Coronado MD PCP: Helen Barnes DO Status: REG CLI Study: Aorta Date of Exam: 12/21/14 Exam# [id number] Ordering Dr: Helen Barnes DO PROCEDURES: ULTRASOUN [...] Cole Coronado MD at 9:45 EDT Tel [phone], Service support [phone], CC: Helen Barnes DO Cut Off Machine Operator: Signed 12-Dec-2014 Bilat Scrn Digital AND CAD Result: Comments: See Note; NOTES: [facility] Imaging Services [address] [place] [address] Breast Imaging Report MR#: [id number] Acct: [id number] Name: YAHAIRA BRYANT Rep # : [id number] : 1950 F 64 From: Gabino South MD PCP: Helen Barnes DO Status: REG CLI Study: Aba Bravo Digital AND CAD Date of Exam: 12/12/14 Exam# [id number] Ordering Dr: Helen Barnes DO M AMMOGRAPHY [...] at 14:51 EDT Tel , Service support [phone], CC: Helen Barnes DO Cut Off Machine Operator: Signed 12-Dec-2014 Bilat Scrn Digital AND CAD Result: Comments: See Note; NOTES: [facility] Imaging Services [address] [place] [address] Breast Imaging Report MR#: [id number] Acct: [id number] Name: YAHAIRA BRYANT Rep # : [id number] : 1950 F 64 From: Gabino South MD PCP: Helen Barnes DO Status: REG CLI Study: Bilat Scrn Digital AND CAD Date of Exam: 12/12/14 Exam# [id number] Ordering Dr: Helen Barnes DO A DDENDUM by Cole Coronado MD on 12/17/14 at 1003 ADDENDUM This is an addendum report for BI -RADS category. BI-RADS category 2. Electronically Signed: Cole Coronado MD at 10:03 EDT Tel [phone], Service support [phone], 12/17/14 1003 D ate cc: Helen Barnes [...] at 14:51 EDT Tel , Service support [phone], CC: Helen Barnes DO Cut Off Machine Operator: Signed 03-Dec-2014 Operative Report Result: Comments: See Note; NOTES: [facility] Medical Records Department [address] [place] [address] Operative Report MR#: [id number] Acct: [id number] Name: YAHAIRA BRYANT Rep #: [id number] : 1950 64 From: Aliza Santana MD PCP: Helen Barnes DO Status: [facility] DATE OF SERVICE: 11/26/2014 DATE OF SERVICE: [...] time. Aliza Santana MD T: NTS JOB: [id number] 12/03/14 1321 <Electronically signed by An jamison Santana MD> Date Aliza Santana MD Cosigner Signature (If Indicated): Date CC: Aleyda Santana MD; Helen Barnes DO Date Dictated: 11/29/14918 Date Transcribed: 11/29/14918 Cut Off Machine Operator: Signed 26-Nov-2014 Discharge Instruction Result: Comments: See Note; NOTES: [facility] Medical Records Department [address] [place] [address] Instructions for Home/Discharge Instructions 11/26/14 1200 MR#: [id number] ct: [id number] Name: YAHAIRA BRYANT Rep #: [id number] : 1950 64 From: Aliza Santana MD PCP: Helen Barnes DO Status: REG SCC Discharge Diet: No Restrictions Discharge Activity: Return [...] Operative Report Result: Comments: See Note; NOTES: [facility] Medical Records Department [address] [facility] [place] [address] Operative Report 11/26/14 1159 MR#: [id number] Acct: [id number] Name: GURJIT CERVANTESYAHAIRA R Rep #: [id number] : 1950 64 From: Aliza Santana MD PCP: Helen Barnes DO Status: REG SDC Y Location: [place] [address] Operative Report (Blank) Date of Procedure: 11/26/14 [...] MD; Helen Barnes DO Signed 05-Nov-2014 Spirometry (07563) Comments: good effort aand curve mild obstruction Result: 06-Jun-2014 Transvaginal Non- Result: Comments: See Note; NOTES: [facility] Imaging Services [address] [place] [address] Ultrasound Report MR#: [id number] Acct: [id number] Name: YAHAIRA BRYANT Rep #: [id number] : 1950 F 63 From: Telly Cruz DO PCP: Helen Barnes DO Status: REG CLI Study: Transvaginal Non- Date of Exam: 06/06/14 Exam# [id number] Ordering Dr: Izzy Becerra STUDY: ULTRASOUND TRANSVAGINAL [...] DO at 13:34 EST , Service support [phone], CC: Helen Barnes DO; Izzy Becerra MD Cut Off Machine Operator: Signed 06-Jun-2014 Pelvic (Non ) Result: Comments: See Note; NOTES: [facility] Imaging Services [address] [place] [address] Ultrasound Report MR#: [id number] Acct: [id number] Name: YAHAIRA BRYANT Rep #: [id number] : 1950 F 63 From: Telly Cruz DO PCP: Helen Barnes DO Status: REG CLI Study: Pelvic (Non ) Date of Exam: 06/06/14 Exam# [id number] Ordering Dr: Izzy Becerra MD STUDY: ULTRASOUND [...] DO at 13:34 EST , Service support [phone], CC: Helen Barnes DO; Izzy Becerra MD Cut Off Machine Operator: Signed 11-Oct-2013 Aba Bravo Digital & CAD Result: Comments: See Note; NOTES: [facility] Imaging Services [address] [place] [address] Breast Imaging Report MR#: [id number] Acct: [id number] Name: YAHAIRA BRYANT Rep #: [id number] : 1950 F 63 From: Bradly Lr MD PCP: Helen Barnes DO Status: REG CLI Exam# [id number] Ordering Dr: Helen Barnes DO MAMMOGRAPHY - [...] at 10:37 EDT , Servic e support [phone], CC: Helen Barnes DO Cut Off Machine Operator: Signed Family History Unknown Family Member [...] kg/m2 Body Surface Area Calculated 1.5 m2 7-Xkv-473711:26 Temperature 97.8 f Comments: Method: Temporal Pulse [...] Value Details :34 Prothrombin Time w/INR Comments: [facility] [address] [place], [address] INR 2.7 (Normal) PROTIME 29.2 s (Abnormal) Range: 11.7-14.9 :41 Prothrombin Time w/INR Comments: [facility] [address] [place], [place], [id number] INR 3.0 (Normal) PROTIME 31.4 s (Abnormal) Range: 11.7-14.9 :17 ANTINUCLEAR ANTIBODIES DIRECT Comments: [facility] (refer to report for specific site)refer to report for address and phone number YURIY-DIRECT Negative (Normal) Comments: Performed at: [facility] [employer] [id number] Director: Jairo Sears PhD, Phone: [phone] :17 Protein Electro.Ur-Random Comments: [facility] (refer to report for specific site)refer to report for address and phone number NOTE Comment (Normal) Comments: Protein electrophoresis scan will follow via computer,mail, or matrix bath operator delivery.Performed at: [facility] [place] [id number] Director: Jairo Sears PhD, Phone: [phone] M-SPIKE,U % (Normal) Comments: NOT BSERVED GAMMA GLOB,U 15.5 % (Normal) BETA GLOB,U 33.2 % (Normal) GHWFJ-0-XTBG,U 9.5 % (Normal) FKVOB-0-WNSA,U 2.3 % (Normal) ALBUMIN,UR 39.4 % (Normal) PROTEIN,UR 8.3 mg/dL (Normal) :17 Protein Electroph, S Comments: [facility] (refer to report for specific site)refer to report for address and phone number NOTE: Comment (Normal) Comments: The SPE pattern appears essentially unremarkable. Evidenceof monoclonal protein is not apparent.Performed at: [facility] [place], [place] [id number] Director: Jairo Sears PhD, Phone: [phone] INTERPRETATION Comment (Normal) Comments: Protein electrophoresis scan will follow via computer,mail, or matrix bath operator delivery. A/G RATIO 1.6 (Normal) Range: 0.7-1.7 [...] Range: 6.0-8.5 :18 Prothrombin Time w/INR Comments: [facility] [address] [place], [address] INR 2.7 (Normal) PROTIME 28.9 s (Abnormal) Range: 11.7-14.9 :58 Bilirubin, Direct Comments: [facility] [address] [place], [place], [address](937) D BILI 0.18 mg/dL (Normal) Range: 0.00-0.30 :58 CBC W/Diff, Automated Comments: [address] [place], [place], [address](760) Absolute Lymph 1.49 {X10_3/ul} (Normal) Range: 0.83-4.51 [...] 4.2-5.4 WBC 3.3 K/mm3 (Abnormal) Range: 4.4-11.0 79-Uzp-74134:58 Total Bilirubin Comments: [facility] [address] [place], [place], [id number] T BILI 0.80 mg/dL (Normal) Range: 0.20-1.00 4-Gwg-619596:14 Prothrombin Time w/INR Comments: [facility] [address] [place], [place], [phone] INR 2.6 (Normal) PROTIME 27.6 s (Abnormal) Range: 11.7-14.9 49-Foz-077932:01 CBC W/Diff, Automated Comments: [facility] [address] [place], [place], [address] Absolute Lymph 1.26 {X10_3/ul} (Normal) Range: 0.83-4.51 [...] 4.2-5.4 WBC 3.3 K/mm3 (Abnormal) Range: 4.4-11.0 54-Vdh-074808:01 Comprehensive Metabolic Profil Comments: [facility] [address] [place], [place], [address] GAP 9 (Normal) Range: 5-15 CO2 28.0 [...] Comments: Please note revised GLUCOSE reference range vhpledibk63/02/2018. 69-Xwy-798257:15 Prothrombin Time w/INR Comments: [facility] [address] [place], [place], [address](618) INR 3.0 (Normal) PROTIME 31.3 s (Abnormal) Range: 11.7-14.9 :26 Prothrombin Time w/INR Comments: [facility] [address] [place], [address] INR 2.8 (Normal) PROTIME 29.3 s (Abnormal) Range: 11.7-14.9 25-Bjd-824180:50 Prothrombin Time w/INR Comments: [facility] [address] [place], [address] INR 2.7 (Normal) PROTIME 28.7 s (Abnormal) Range: 11.7-14.9 :35 Prothrombin Time w/INR Comments: [facility] [address] [place], [address] INR 2.9 (Normal) PROTIME 30.2 s (Abnormal) Range: 11.7-14.9 :44 Prothrombin Time w/INR Comments: [facility] [address] [place], [address] INR 2.9 (Normal) PROTIME 30.1 s (Abnormal) Range: 11.7-14.9 :55 Prothrombin Time w/INR Comments: [facility] [address] [place], [address] INR 2.8 (Normal) PROTIME 29.4 s (Abnormal) Range: 11.7-14.9 :10 Prothrombin Time w/INR Comments: [facility] [address] [place], [address] INR 2.4 (Normal) PROTIME 26.2 s (Abnormal) Range: 11.7-14.9 :09 Prothrombin Time w/INR Comments: [facility] [address] [place], [address] INR 1.1 (Normal) PROTIME 14.0 s (Normal) Range: 11.7-14.9 :29 Prothrombin Time w/INR Comments: RESULT(S) PREVIOUSLY REPORTED ON MANUAL REQUISITION DURINGDOWNTIME.[facility] [address] [place], [address] INR 1.3 (Normal) PROTIME 16.4 s (Abnormal) Range: 11.7-14.9 :30 Prothrombin Time w/INR Comments: [facility] [address] [place], [address] INR 2.0 (Normal) PROTIME 22.9 s (Abnormal) Range: 11.7-14.9 :01 Prothrombin Time w/INR Comments: [facility] [address] [place], [address] INR 1.5 (Normal) PROTIME 18.0 s (Abnormal) Range: 11.7-14.9 04-Mzv-23777:46 Prothrombin Time w/INR Comments: [facility] [address] [place], [address] INR 1.9 (Normal) PROTIME 22.2 s (Abnormal) Range: 11.7-14.9 49-Eiz-388197:25 Prothrombin Time w/INR Comments: [facility] [address] [place], [address] INR 1.9 (Normal) PROTIME 22.0 s (Abnormal) Range: 11.7-14.9 :59 Prothrombin Time w/INR Comments: [place] [address] [place], [place], [phone] INR 2.0 (Normal) PROTIME 22.8 s (Abnormal) Range: 11.7-14.9 :58 Prothrombin Time w/INR Comments: [address] [place], [place], [phone](810) INR 1.8 (Normal) PROTIME 20.7 s (Abnormal) Range: 11.7-14.9 46-Cdl-074213:31 Prothrombin Time w/INR Comments: [place] [address] [place], [place], [phone] INR 1.7 (Normal) PROTIME 19.9 s (Abnormal) Range: 11.7-14.9 82-Pcp-069162:20 Prothrombin Time w/INR Comments: [address] [place], [place], [phone](039) INR 2.6 (Normal) PROTIME 27.9 s (Abnormal) Range: 11.7-14.9 :39 Prothrombin Time w/INR Comments: [address] [place], [place], [phone] INR 2.9 (Normal) PROTIME 30.5 s (Abnormal) Range: 11.7-14.9 69-Iba-759624:03 Rapid Flu (50792 x 2) Influenza A Ag neg (Normal) 41-Dfi-711630:00 Prothrombin Time w/INR Comments: [address] [place], [place], [address] ; See pt message INR 3.7 (Abnormal) Comments: CRITICAL VALUE VERIFIED. CALLED TO KOLTON RN05/31/17 1130 Nii Lind.RESULTS READ BACK BY SAME. PROTIME 35.0 s (Abnormal) Range: 11.7-14.9 :21 Prothrombin Time w/INR Comments: [address] [place], [address] INR 4.7 (Abnormal) Comments: CRITICAL VALUE VERIFIED. CALLED TO GEOVANNI AT [facility]05/24/17 0956 Violeta Aide.RESULTS READ BACK BY SAME . PROTIME 42.4 s (Abnormal) Range: 11.7-14.9 89-Gey-209490:27 Prothrombin Time w/INR Comments: [facility] [address] [place], [address] INR 1.9 (Normal) PROTIME 20.9 s (Abnormal) Range: 11.7-14.9 :42 Prothrombin Time w/INR Comments: [facility] [address] [place], [address] INR 4.3 (Abnormal) Comments: CRITICAL VALUE VERIFIED. CALLED TO 05/10/17 0830 Josue Velazquez.RESULTS READ BACK BY . PROTIME 39.8 s (Abnormal) Range: 11.7-14.9 :18 Prothrombin Time w/INR Comments: [facility] [address] [place], [address] INR 2.4 (Normal) PROTIME 24.8 s (Abnormal) Range: 11.7-14.9 :18 Prothrombin Time w/INR Comments: [facility] [address] [place], [address] INR 2.4 (Normal) PROTIME 25.2 s (Abnormal) Range: 11.7-14.9 58-Yft-197511:00 Prothrombin Time w/INR Comments: [facility] [address] [place], [address] INR 2.5 (Normal) PROTIME 25.8 s (Abnormal) Range: 11.7-14.9 :32 Prothrombin Time w/INR Comments: [facility] [address] [place], [address] INR 2.1 (Normal) PROTIME 22.7 s (Abnormal) Range: 11.7-14.9 :23 Prothrombin Time w/INR Comments: [facility] [address] [place], [address] INR 2.3 (Normal) PROTIME 24.6 s (Abnormal) Range: 11.7-14.9 :14 Prothrombin Time w/INR Comments: [facility] [address] [place], [address] INR 2.0 (Normal) PROTIME 21.9 s (Abnormal) Range: 11.7-14.9 :18 Prothrombin Time w/INR Comments: [facility] [address] [place], [address] INR 2.5 (Normal) PROTIME 25.6 s (Abnormal) Range: 11.7-14.9 :39 Prothrombin Time w/INR Comments: [facility] [address] [place], [address] INR 2.1 (Normal) PROTIME 22.7 s (Abnormal) Range: 11.7-14.9 :40 Prothrombin Time w/INR Comments: [facility] [address] [place], [address] INR 2.6 (Normal) PROTIME 26.8 s (Abnormal) Range: 11.7-14.9 :40 Prothrombin Time w/INR Comments: [facility] [address] [place], [address] INR 2.2 (Normal) PROTIME 23.8 s (Abnormal) Range: 11.7-14.9 :21 Prothrombin Time w/INR Comments: [facility] [address] [place], [address] INR 1.8 (Normal) PROTIME 20.1 s (Abnormal) Range: 11.7-14.9 :30 Prothrombin Time w/INR Comments: [facility] [address] [place], [address] INR 3.0 (Normal) PROTIME 30.2 s (Abnormal) Range: 11.7-14.9 :45 Prothrombin Time w/INR Comments: [facility] [address] [place], [address] INR 2.9 (Normal) PROTIME 29.1 s (Abnormal) Range: 11.7-14.9 :52 Prothrombin Time w/INR Comments: [facility] [address] [place], [address] INR 1.4 (Normal) PROTIME 17.0 s (Abnormal) Range: 11.7-14.9 :27 Prothrombin Time w/INR Comments: [facility] [address] [place], [address] INR 2.0 (Normal) PROTIME 21.7 s (Abnormal) Range: 11.7-14.9 84-Hol-388347:21 Prothrombin Time w/INR Comments: [facility] [address] [place], [address] INR 2.3 (Normal) PROTIME 24.1 s (Abnormal) Range: 11.7-14.9 :43 Prothrombin Time w/INR Comments: [facility] [address] [place], [address] INR 2.9 (Normal) PROTIME 29.1 s (Abnormal) Range: 11.7-14.9 :47 Prothrombin Time w/INR Comments: [facility] [address] [place], [address] INR 2.3 (Normal) PROTIME 24.0 s (Abnormal) Range: 11.7-14.9 :25 CBC W/Diff, Automated Comments: [facility] [address] [place], [address] ; see other message Absolute Lymph 2.07 [...] Range: 4.4-11.0 07-Jul-20167:25 Comprehensive Metabolic Profil Comments: [facility] [address] [place], [address] GAP 3 (Abnormal) Range: 5-15 CO2 28.0 [...] Range: 70-110 :25 Prothrombin Time w/INR Comments: [facility] [address] [place], [place], [address](522) INR 3.5 (Abnormal) Comments: CRITICAL VALUE VERIFIED. CALLED TO PATRICE Longoria07/07/16 34 Radha Calderon.RESULTS READ BACK BY SAME . PROTIME 33.9 s (Abnormal) Range: 11.7-14.9 :25 Thyroid Stim Hormone (TSH) Comments: [facility] [address] [place], [place], [address] TSH 3.25 {uIU/mL} (Normal) Range: 0.358-3.74 :47 Prothrombin Time w/INR Comments: [facility] [address] [place], [place], [address](597) INR 2.6 (Normal) Comments: ADDENDA: handled by Dr. Phillips PROTIME 27.5 s (Abnormal) Range: 11.7-14.9 :32 Prothrombin Time w/INR Comments: [place] [address] [place], [address] INR 2.3 (Normal) PROTIME 25.5 s (Abnormal) Range: 11.7-14.9 :15 Prothrombin Time w/INR Comments: [place] [address] [place], [address] INR 2.6 (Normal) PROTIME 27.7 s (Abnormal) Range: 11.7-14.9 :29 Prothrombin Time w/INR Comments: [place] [address] [place], [address] INR 1.3 (Normal) PROTIME 16.7 s (Abnormal) Range: 11.7-14.9 :19 Prothrombin Time w/INR Comments: [place] [address] [place], [address] INR 2.1 (Normal) PROTIME 23.3 s (Abnormal) Range: 11.7-14.9 :14 Prothrombin Time w/INR Comments: [place] [address] [place], [address] INR 2.0 (Normal) PROTIME 22.5 s (Abnormal) Range: 11.7-14.9 :21 Prothrombin Time w/INR Comments: [place] [address] [place], [address] INR 2.7 (Normal) PROTIME 28.5 s (Abnormal) Range: 11.7-14.9 :30 Prothrombin Time w/INR Comments: [place] [address] [place], [address] INR 2.4 (Normal) PROTIME 25.9 s (Abnormal) Range: 11.7-14.9 :41 Prothrombin Time w/INR Comments: [place] [address] [place], [address] INR 2.5 (Normal) PROTIME 26.9 s (Abnormal) Range: 11.7-14.9 :09 Prothrombin Time w/INR Comments: [facility] [address] [place], [address] INR 3.4 (Normal) PROTIME 34.4 s (Abnormal) Range: 11.7-14.9 :11 Prothrombin Time w/INR Comments: [facility] [address] [place], [address] INR 2.5 (Normal) PROTIME 26.6 s (Abnormal) Range: 11.7-14.9 23-Plj-710714:33 Prothrombin Time w/INR Comments: [place] [address] [place], [address] INR 1.5 (Normal) PROTIME 18.1 s (Abnormal) Range: 11.7-14.9 :12 Prothrombin Time w/INR Comments: [facility] [address] [place], [address] INR 1.1 (Normal) PROTIME 14.4 s (Normal) Range: 11.7-14.9 :51 Prothrombin Time w/INR Comments: [place] [address] [place], [address] INR 3.6 (Abnormal) Comments: CRITICAL VALUE REPEATED AND VERIFIED. CALLED TO Maycol DAVISON02/25/15 1001 Elsie Longoria.RESULTS READ BACK BY MARGUERITE . PROTIME 35.3 s (Abnormal) Range: 11.7-14.9 :23 Prothrombin Time w/INR Comments: [facility] [address] [place], [address] INR 3.3 (Normal) PROTIME 33.3 s (Abnormal) Range: 11.7-14.9 :13 Prothrombin Time w/INR Comments: [facility] [address] [place], [address] INR 2.4 (Normal) PROTIME 26.5 s (Abnormal) Range: 11.7-14.9 :32 Prothrombin Time w/INR Comments: [facility] [address] [place], [address] INR 1.4 (Normal) PROTIME 17.8 s (Abnormal) Range: 11.7-14.9 :09 Prothrombin Time w/INR Comments: [facility] [address] [place], [address] INR 1.2 (Normal) PROTIME 15.9 s (Abnormal) Range: 11.7-14.9 :12 Prothrombin Time w/INR Comments: [facility] [address] [place], [address] INR 2.4 (Normal) PROTIME 26.4 s (Abnormal) Range: 11.7-14.9 :20 Prothrombin Time w/INR Comments: [facility] [address] [place], [address] INR 2.2 (Normal) PROTIME 24.5 s (Abnormal) Range: 11.7-14.9 :11 Prothrombin Time w/INR Comments: Test performed at:[facility] [address] [place] [address] INR 2.2 (Normal) PROTIME 24.1 s (Abnormal) Range: 11.7-14.9 :29 Prothrombin Time w/INR Comments: Test performed at:[facility] [address] [place] [address] INR 3.7 (Abnormal) Comments: CRITICAL VALUE REPEATED AND VERIFIED. CALLED TO KIKE WOMACK12/21/14 Frida Kumar.RESULTS READ BACK BY SAME . PROTIME 36.5 s (Abnormal) Range: 11.7-14.9 :25 Prothrombin Time w/INR Comments: Test performed at:[facility] [address] [place] [address] INR 2.5 (Normal) PROTIME 27.1 s (Abnormal) Range: 11.7-14.9 :23 Miscellaneous Lab Procedure Comments: Comments: [id number] PTH PLUS CALCIUM LAV AND RED RFTest(s) Ordered: [id number] PTH PLUS CALCIUM LAV AND RED RFTest performed at:[facility] [address] [place] [address] [facility] Comments: TEST RESULT LIMITSCa+PTH Intact Calcium, Serum [...] - 65 < 8.6 TESTING PERFORMED AT [facility]. ORIGINAL REPORT ON FILE IN LAB CONTAINS AD DITIONAL TEST SITE INFORMATION. :23 Prothrombin Time w/INR Comments: Test performed at:[facility] [address] [place] [address] INR 4.0 (Abnormal) Comments: CRITICAL VALUE REPEATED AND VERIFIED. CALLED TO METGVR53/11/15 0933 Fletcher Foote.RESULTS READ BACK BY SAME . PROTIME 38.3 s (Abnormal) Range: 11.7-14.9 :23 Vitamin D 1,25-Dihydroxy Comments: Test performed at:[facility] [address] [place] [id number] VITD 1,25 68542 55.5 pg/mL (Normal) Range: 19.9-79.3 Comments: Performed at: - [address] [id number] Director: Juan Ontiveros MD, Phone: [phone] :23 Vitamin D,25 Hydroxy Comments: Test performed at:[facility] [address] [place] [address] Vitamin D 25-OH 70.3 ng/mL (Normal) Comments: Vitamin D 25(OH) Status Range Deficiency <20 ng/mL (50nmol/L) Insuffciency 20 - 30 ng/mL (50 - 75 nmol/L) Sufficiency 30 - 100 ng/mL (75 - 250 nmol/L) Toxicity >100 ng/mL (>250 nmol/L) :04 Prothrombin Time w/INR Comments: Test performed at:[facility] [address] [place] [address] INR 2.1 (Normal) PROTIME 23.5 s (Abnormal) Range: 11.7-14.9 :12 Prothrombin Time w/INR Comments: Test performed at:[facility] [address] [place] [place] [address] INR 1.6 (Normal) PROTIME 18.9 s (Abnormal) Range: 11.7-14.9 :10 Prothrombin Time w/INR Comments: Test performed at:[facility] [address] [place] [place] [address] INR 1.1 (Normal) PROTIME 14.1 s (Normal) Range: 11.7-14.9 59-Gwj-[id number]: ENDOMETRIAL BX/CURETTINGS See Note (Normal) Comments: Test performed at:[facility] [address] [place] [address] 49 Comments: Patient: YAHAIRA BRYANT : 1950 (64/F) Acct Num: [id number] Phys: Aliza Santana MD Unit Num: [id number] Loc: [facility] Specimen: [id number] Received: 11/26/14 - 1216 Spec Type: EN DOM BX/C TISSUES TISSUES: GROSS DESCRIPTION Received is one container labeled with the patient name and designated endometrial curettings. The specimen consists of scant fragments of sahni mucoid tissue measuring less than 0.1 cm in greatest dimension. It is doubtful that the specimen will survive processing. The specimen is totally submitted inone cassette. / : 11/26/14 TC: 5 CPT: 37353 HEADER OPERATION: Hysteroscopy, diagnostic, D AND C PRE-OP DIAGNOSIS: Postmenopausal bleeding TISSUE SUBMITTED: Endometrial curettings MICROSCOPIC DESCRIPTION Slides are reviewed. MICROSCOPIC DIAGNOSIS Endometrial curettings: Scant strips of benign endometrial epithelium and superficial fragment of benign endometrial tissue, consistent with atrophic endometri um. Fragments of benign endocervical epithelium. SJ: 11/27/14 Signed Jeffy Suazo 11/27/14 <signature on file> [id number]-[id number] INR Fingerstick Comments: Test performed at:[facility] [address] [place] [address] INR ISTAT 1.10 (Normal) Comments: Critical Value > 3.5; ADDENDA: this is for pre-op, will resume tomorrow and recheck it in 1 week. 15-Wuj-058595:39 Prothrombin Time Fingerstick Comments: Test performed at:[facility] [address] [place] [address] PROTIME ISTAT 13.2 {SEC} (Normal) Range: 11.9-14.4 Comments: Reference Range 11.9 - 14.4 63-Plf-773625:41 Partial Thromboplast Time Comments: Test performed at:[facility] [address] [place] [address] PTT 40.9 s (Abnormal) Range: 24.1-36.2 12-Nha-198706:41 Prothrombin Time w/INR Comments: Test performed at:[facility] [address] [place] [address] INR 2.6 (Normal) PROTIME 27.4 s (Abnormal) Range: 11.7-14.9 :41 Type AND Screen Comments: Surgery Date: 11/26/14Hx of Preganancy in last 3 Months NoEver experience any problems with transfusion(s)? NHx of Transfusion in last 3 Months NReason for Type AND Screen/Red Cells: SURGERYSURGI ADELSO PROCEDURE: .Test performed at:[facility] [address] [place] [address] Antibody Screen NEGATIVE (Normal) BLOOD TYPE GEL A POSITIVE (Normal) :09 CBC W/Diff, Automated Comments: Test performed at:[facility] [address] [place] [address] Absolute Lymph 2.07 {X10_3/ul} (Normal) [...] :09 Comprehensive Metabolic Profil Comments: Test performed at:[facility] [address] [place] [address] GAP 6 (Normal) Range: 5-15 CO2 29.0 [...] Comments: Please note revised CREATININE reference range oggepipkw04/22/2015. BUN 19 mg/dL (Abnormal) Range: 7-18 GLU 75 mg/dL (Normal) Range: 70-110 :09 Prothrombin Time w/INR Comments: Test performed at:[facility] [address] [facility] [place] [address] INR 2.4 (Normal) PROTIME 25.8 s (Abnormal) Range: 11.7-14.9 :13 Prothrombin Time w/INR Comments: Test performed at:[facility] [address] [place] [address] INR 1.8 (Normal) PROTIME 21.2 s (Abnormal) Range: 11.7-14.9 :06 Prothrombin Time w/INR Comments: Test performed at:[facility] [address] [place] [address] INR 2.2 (Normal) PROTIME 24.4 s (Abnormal) Range: 11.7-14.9 :50 Prothrombin Time w/INR Comments: Test performed at:[facility] [address] [place] [address] INR 1.7 (Normal) PROTIME 20.3 s (Abnormal) Range: 11.7-14.9 15-Kfo-432832:16 Estrogen, Total, Serum Comments: Comments: TSHHas Patient had Radioactive Injection for X-ray?: NTest performed at:[facility] [address] [place] [address] ESTROGEN 4549 54 pg/mL (Normal) Comments: Prepubertal <40 Female Cycle: 1-10 Days 61 - 394 11-20 Days 122 - 437 21-30 Days 156 - 350 Post-Menopausal <40 HMG Treatment for Ovulation Induction: 400 - 800Performed at: - [facility]Co[address] [id number] Director: Juan Ontiveros MD, Phone: [phone] 69-Vjw-134569:16 Free T3 Comments: Comments: TSHTest performed at:[facility] [address] [facility] [place] [address] FREE T3 2.6 pg/mL (Normal) Range: 2.18-3.98 59-Pmj-157600:16 Hemoglobin A1c Comments: Test performed at:[facility] [address] [place] [address] HGB A1C 5.0 % (Normal) Range: 4.2-6.3 42-Jtu-691060:16 Progesterone Level Comments: Test performed at:[facility] [address] [place] [address] Progesterone 0.48 ng/mL (Normal) Comments: Progesterone Reference Table: UNITS Female: Follicular 0.15 - 1.40 ng/mL Luteal 3.34 - 25.56 ng/mL Mid-luteal 4.44 - 28.03 ng/mL Postmenopausal 0.0 - 0.73 ng/mL : 1st Trimester 11.22 - 90.00 ng /mL 2nd Trimester 25.55 - 89.40 ng/mL 3rd Trimester 48.40 -422.50 ng/mL [id number]-[id number]:16 T4 Free Direct Comments: Comments: TSHTest performed at:[facility] [address] [place] [address] T4 FREE DIRECT 1.16 ng/dL (Normal) Range: 0.76-1.46 03-Tzs-733163:16 Testosterone, Serum Total Comments: Test performed at:[facility] [address] [place] [address] ; ordered by Dr. Santana Testosterone 35 ng/dL (Normal) Range: 14-76 23-Tfi-662542:16 Thyroid Stim Hormone (TSH) Comments: Comments: TSHTest performed at:[facility] [address] [place] [address] TSH 1.53 {uIU/mL} (Normal) Range: 0.358-3.74 50-Sol-23087:11 Prothrombin Time w/INR Comments: Test performed at:[facility] [address] [place] [address] INR 1.8 (Normal) PROTIME 20.9 s (Abnormal) Range: 11.7-14.9 :27 Prothrombin Time w/INR Comments: Test performed at:[facility] [address] [place] [address] INR 2.2 (Normal) PROTIME 24.8 s (Abnormal) Range: 11.7-14.9 :08 Prothrombin Time w/INR Comments: Test performed at:[facility] [address] [place] [address] INR 4.8 (Abnormal) Comments: CRITICAL VALUE REPEATED AND VERIFIED. CALLED TO RADHA WOMACK10/01/14 0855 Nii Lind.RESULTS READ BACK BY DAVID. PROTIME 44.0 s (Abnormal) Range: 11.7-14.9 :14 Prothrombin Time w/INR Comments: Test performed at:[facility] [address] [place] [address] INR 2.6 (Normal) PROTIME 27.9 s (Abnormal) Range: 11.7-14.9 :16 Prothrombin Time w/INR Comments: Test performed at:[facility] [address] [place] [address] INR 5.0 (Abnormal) Comments: CRITICAL VALUE REPEATED AND VERIFIED. CALLED TO Tami DAVISON09/21/14 0809 Elsie Longoria.RESULTS READ BACK BY CONNER . PROTIME 45.5 s (Abnormal) Range: 11.7-14.9 :10 Prothrombin Time w/INR Comments: Test performed at:[facility] [address] [place] [address] INR 3.2 (Normal) PROTIME 32.8 s (Abnormal) Range: 11.7-14.9 :24 Miscellaneous Lab Procedure Comments: Comments: [id number] HHV-6 IGM,SST,REFRIGERATETest(s) Ordered: [id number] HHV-6 IGM,SST,REFRIGERATETest performed at:[facility] [address] [place] [address] MISC Comments: TEST RESULT UNITS REFERENCE INTERVALHuman Herpes Virus Type 6 IgM <1:10 Neg:<1:10Results for this test are for research purposes only by LAB (Normal) theassay's electrical instrument maker. The performance characteristics ofthis product have not been established. Results should notbe used as a diagnostic procedure without confirmation ofthe diagnosis by another med TEST ically established diagnosticproduct or procedure. TESTING PERFORMED AT [facility]. ORIGINAL REPORT ON FILE IN LAB CONTAINS ADDITIONAL TEST SITE IN FORMATION. :18 ANTINUCLEAR ANTIBODIES DIRECT Comments: Test performed at:[place] [id number] YURIY-DIRECT Negative (Normal) Comments: Performed at: [address] [id number] Director: Narendra Covarrubias PhD, Phone: [phone] :18 CMV Acute Antibody IgM Comments: Test performed at:[address] [place], [place] [address] CMVIgM AB < 30.0 AU/mL (Normal) Range: 0.0-29.9 Comments: Negative <30.0 Equivocal 30.0 - 34.9 Positive >34.9A positive result is generally indicative of acuteinfection, react ivation or persistent IgM production.Performed at: [address] [id number] Director: Narendra Covarrubias PhD, Phone: [phone] at: [facility] [address] [place], [place] [id number] Director: Juan Ontiveros MD, Phone: [phone] at: [address] [place] [address] [address] [place], [place] [id number] Director: Bill Tao PhD, Phone: [phone] :18 CMV Antibody IgG Comments: Test performed at:[facility] [address] [place] [address] CMV AB IgG > 10.00 U/mL (Abnormal) Range: 0.00-0.59 Comments: Negative <0.60 Equivocal 0.60 - 0.69 Positive >0.69 :18 EBV Acute Prof IgG / IgM Comments: Test performed at:[facility] [address] [place] [address] INTERPRETATION Comment (Normal) Comments: EBV Interpretation ChartInterpretation EBV-IgM EA(D)-IgG VCA-IgG EBNA-IgGEBV Seronegative - - - -Early Phase + - - -Acute Primary + +or- + -InfectionConvalescence/Past - +or- + +InfectionReactivated +or- + + +Infection + Antibody Present - Antibody Absent EB-NAg [id number] 71.5 U/mL (Abnormal) Range: 0.0-17.9 Comments: Negative <18.0 Equivocal 18.0 - 21.9 Positive >21.9 EB-VCA [id number] > 600.0 U/mL (Abnormal) Range: 0.0-17.9 Comments: Negative <18.0 Equivocal 18.0 - 21.9 Positive >21.9 EB-EA IgG [id number] 21.1 U/mL (Abnormal) Range: 0.0-8.9 Comments: Hepatitis A, Hepatitis C and HIV antibodies may cross-reactwith this assay. Negative < 9.0 Equivocal 9.0 - 10.9 Positive >10.9 EB-VCA [id number] < 36.0 U/mL (Normal) Range: 0.0-35.9 Comments: Negative <36.0 Equivocal 36.0 - 43.9 Positive >43.9 :18 Ferritin Comments: Test performed at:[facility] [address] [place] [address] FERRITIN 28 ng/mL (Normal) Range: 8-252 :18 HLA B27 Negative (Normal) Comments: Test performed at:[facility] [address] [place] [address] Comments: HLA-B*27 NegativeHLA Lab CLIA ID Number [id number] test was performed using PCR (Polymerase ChainReaction)/SSOP (Sequence Specific Oligonucleotide Probes)technique. SBT (Sequence Based Typing) and/ or SSP(Sequence Specific Primers) may be used as supplementalmethods when necessary. Please contact [facility] CustomerService at if you have any questions. Director of HLA Laboratory Dr iBll Tao, PhD :18 Homocysteine Comments: Test performed at:[facility] [address] [place] [address] HOMOCYSTEINE 6.7 umol/L (Normal) Range: 3.2-10.7 :18 IgG Subclasses Comments: Test performed at:[facility] [address] [place] [address] IgG, SUBCLASS 4 1 mg/dL (Normal) Range: 1-291 Comments: Results verified by repeat testing IgG, SUBCLASS 3 52 mg/dL (Normal) Range: 41-129 IgG, SUBCLASS 2 145 mg/dL (Normal) Range: 117-747 IgG, SUBCLASS 1 264 mg/dL (Abnormal) Range: 422-1292 IGG, QUANT 520 mg/dL (Abnormal) Range: 700-1600 :18 Miscellaneous Lab Procedure Comments: Comments: [id number] HHV-6 IGG,SST,REFRIGERATETest(s) Ordered: [id number] HHV-6 IGG,SST,REFRIGERATEList Test(s) Ordered by Physician: IGA SUBCLASSES, #[id number], SERUM,RM TEMP, 2 MLTest performed at:[facility] [address] [place] [address] MISC Comments: TEST RESULT UNITS REFERENCE INTERVALHHV 6 IgG Antibodies 2.42 High index Negative <0.76 Equivocal 0.76 - 0.99 LAB (Normal) Positive >0.99Results for this test are for research purposesonly by the assay's electrical instrument maker. The performancecharacteristics of this product have not beenestablishe TEST d. Results should not be used as adiagnostic procedure without confirmation of thediagnosis by another medically established diagnosticproduct or procedure. TESTING PERFORMED AT [facility]. ORIGINAL REPORT ON FILE IN LAB CONTAINS ADDITIONAL TEST SITE INFORMATION. :18 Miscellaneous Lab Procedure Comments: Comments: [id number] HLA-DR4,SST,REFRIGERATETest(s) Ordered: [id number] HLA-DR4,SST,REFRIGERATETest performed at:[facility] [place] [id number] [facility] Comments: TEST RESULT UNITS REFERENCE INTERVALHLA DRB1 (IR) DRB1 DRB1*07:ACETZ DRB1 DRB1*- Code Translation: ACETZ 07:01/07:09/07:10N/07:11/07:14/07:22 LAB (Normal) /07:24 /07:25/07:26N/07:27/07:28/07:29HLA allele interpretation for all loci based on IMGT/HLAdatabase version 3.15A Lab CLIA ID Number [id number] TEST TESTING PERFORMED AT [facility]. ORIGINAL REPORT ON FILE IN LAB CONTAINS ADDITIONAL TEST SITE INFORMATION. HLA Methodology:HLA result s were obtained using sequence based typing (SBT),sequence specific oligonucleotide probes (SSOP), and/orsequence specific primers (SSP) as needed to obtain therequired resolution. Please contact [facility] Service [phone] if you have any questions.Director of [facility] LaboratoryDr Bill Tao, PhD :18 Miscellaneous Lab Procedure 2 Comments: Comments: [id number] HHV- 6 IGG,SST,REFRIGERATETest(s) Ordered: [id number] HHV-6 IGG,SST,REFRIGERATEList Test(s) Ordered by Physician: IGA SUBCLASSES, #[id number], SERUM,RM TEMP, 2 MLTest performed at:[facility] [address] [place] [address] [facility] Comments: TEST RESULT UNITS REFERENCE INTERVALIgA, Subclasses (1-2) Immunoglobulin A, Qn, Serum 161 mg/dL 91 - 414 IgA, Subclass 1 132.0 mg/dL LAB (Normal) 73.2 - 301.2 IgA, Subclass 2 6.2 Low mg/dL 13.4 - 97.9 TESTING PERFORMED AT [facility]. ORIGINAL REPORT ON FILE IN LAB CONTAINS MANFRED TEST TIONAL TEST SITE INFORMATION. 2 :18 Prothrombin Time w/INR Comments: Test performed at:[facility] [address] [place] [address] INR 1.9 (Normal) PROTIME 22.3 s (Abnormal) Range: 11.7-14.9 :18 Vitamin B12 664 pg/mL (Normal) Comments: Test performed at:[facility] [address] [place] [address] Range: 211-911 :18 Vitamin D,25 Hydroxy Comments: Test performed at:[facility] [address] [place] [address] Vitamin D 25-OH 58.8 ng/mL (Normal) Comments: Vitamin D 25(OH) Status Range Deficiency <20 ng/mL (50nmol/L) Insuffciency 20 - 30 ng/mL (50 - 75 nmol/L) Sufficiency 30 - 100 ng/mL (75 - 250 nmol/L) Toxicity >100 ng/mL (>250 nmol/L) :13 CBC W/Diff, Automated Comments: Test performed at:[facility] [address] [place] [address] Absolute Lymph 2.08 {X10_3/ul} (Normal) Range: [...] :13 Comprehensive Metabolic Profil Comments: Test performed at:[facility] [address] [place], [place] [id number] GAP 7 (Normal) Range: 5-15 CO2 29.0 [...] 70-110 :13 Lipid Profile Comments: Test performed at:[facility] [address]guxzz[address]oz7233 [facility] [place] [address] VLDL 9 mg/dL (Normal) Range: 5-40 LDL [...] :13 Prothrombin Time w/INR Comments: Test performed at:[facility] [address] [place] [address] INR 1.5 (Normal) PROTIME 18.4 s (Abnormal) Range: 11.7-14.9 :17 INR Fingerstick Comments: Test performed at:[facility] [address] [place] [address] INR ISTAT 1.50 (Normal) Comments: Critical Value > 3.5 :17 Prothrombin Time Fingerstick Comments: Test performed at:[facility] [address] [place] [address] PROTIME ISTAT 17.6 {SEC} (Abnormal) Range: 11.9-14.4 Comments: Reference Range 11.9 - 14.4 :09 INR Fingerstick Comments: Test performed at:[facility] [address] [place] [address] INR ISTAT 1.40 (Normal) Comments: Critical Value > 3.5 :09 Prothrombin Time Fingerstick Comments: Test performed at:[facility] [address] [place] [address] PROTIME ISTAT 17.1 {SEC} (Abnormal) Range: 11.9-14.4 Comments: Reference Range 11.9 - 14.4 :09 Prothrombin Time w/INR Comments: Test performed at:[facility] [address] [facility] [place] [address] INR 1.1 (Normal) PROTIME 14.6 s (Normal) Range: 11.7-14.9 :11 INR Fingerstick Comments: Test performed at:[facility] [address] [place] [address] INR ISTAT 1.20 (Normal) Comments: Critical Value > 3.5 :11 Prothrombin Time Fingerstick Comments: Test performed at:[facility] [address] [place] [address] PROTIME ISTAT 13.9 {SEC} (Normal) Range: 11.9-14.4 Comments: Reference Range 11.9 - 14.4 :06 INR Fingerstick Comments: Test performed at:[facility] [address] [place] [address] INR ISTAT 1.10 (Normal) Comments: Critical Value > 3.5 :06 Prothrombin Time Fingerstick Comments: Test performed at:[facility] [address] [place] [address] PROTIME ISTAT 13.6 {SEC} (Normal) Range: 11.9-14.4 Comments: Reference Range 11.9 - 14.4 :28 INR Fingerstick Comments: Test performed at:[facility] [address] [place] [address] INR ISTAT 2.20 (Normal) Comments: Critical Value > 3.5 :28 Prothrombin Time Fingerstick Comments: Test performed at:[facility] [address] [place] [address] PROTIME ISTAT 25.0 {SEC} (Abnormal) Range: 11.9-14.4 Comments: Reference Range 11.9 - 14.4 :19 INR Fingerstick Comments: Test performed at:[facility] [address] [place] [address] INR ISTAT 2.70 (Normal) Comments: Critical Value > 3.5 :19 Prothrombin Time Fingerstick Comments: Test performed at:[facility] [address] [place] [address] PROTIME ISTAT 30.6 {SEC} (Abnormal) Range: 11.9-14.4 Comments: Reference Range 11.9 - 14.4 :09 Prothrombin Time w/INR Comments: Test performed at:[facility] [address] [place] [address] INR 3.2 (Normal) PROTIME 32.6 s (Abnormal) Range: 11.7-14.9 :22 Prothrombin Time w/INR Comments: Test performed at:[facility] [address] [place] [address] INR 2.6 (Normal) PROTIME 27.8 s (Abnormal) Range: 11.7-14.9 :22 Prothrombin Time w/INR Comments: Test performed at:[facility] [address] [place] [address] INR 3.0 (Normal) PROTIME 30.9 s (Abnormal) Range: 11.7-14.9 :12 Prothrombin Time w/INR Comments: Test performed at:[facility] [address] [place] [address] INR 3.4 (Normal) PROTIME 33.7 s (Abnormal) Range: 11.7-14.9 :10 Prothrombin Time w/INR Comments: Test performed at:[facility] [address] [place] [address] INR 3.7 (Abnormal) PROTIME 36.4 s (Abnormal) Range: 11.7-14.9 :20 Prothrombin Time w/INR Comments: Test performed at:[facility] [address] [place] [address] INR 3.0 (Normal) PROTIME 31.0 s (Abnormal) Range: 11.7-14.9 :10 Prothrombin Time w/INR Comments: Test performed at:[facility] [address] [place] [address] INR 3.0 (Normal) PROTIME 30.7 s (Abnormal) Range: 11.7-14.9 :04 Prothrombin Time w/INR Comments: Test performed at:[facility] [address] [place] [address] INR 1.7 (Normal) PROTIME 19.7 s (Abnormal) Range: 11.7-14.9 :17 Prothrombin Time w/INR Comments: Test performed at:[facility] [address] [place] [address] INR 1.8 (Normal) PROTIME 21.1 s (Abnormal) [...] Comments: Please note revised PROTIME reference range gguxjgsjv28/14/15. 07-Nie-88327:05 PT INR 3.0 (Normal) PTP 30.6 s (Abnormal) Range: 11.7-14.9 Comments: Please note revised PROTIME reference range qjjkrzxof51/14/15. 59-Frx-21021:07 PT INR 5.6 (Abnormal) PTP 50.1 s (Abnormal) Range: 11.7-14.9 Comments: Please note revised PROTIME reference range ogtoxkwkb59/14/15. 23-Sbr-48385:03 PT INR 2.5 (Normal) PTP 27.0 s (Abnormal) Range: 11.7-14.9 Comments: Please note revised PROTIME reference range fjykswccx14/14/15. :03 PT INR 2.0 (Normal) PTP 23.0 s (Abnormal) Range: 11.7-14.9 Comments: Please note revised PROTIME reference range lkxyhuipz28/14/15. :06 PT INR 2.1 (Normal) PTP 21.9 [...] CALL DR. BARNES OFFICE, LEFT MESSAGE, 08/01/13 8:30EVONNE CALLED TO HERIBERTO 08/01/13 0846 Ayla Stanton.REPORT [...] CHOL 287 mg/dL (Abnormal) Comments: <200 mg/dL Rtrgkcjzx793-556 mg/dL Borderline>240 mg/dL High Risk TRIG 78 [...] CRITICAL VALUE REPEATED AND VERIFIED. CALLED TO CMJOSUP15/14/14 [facility] Jeovanny Serrano.RESULTS READ BACK BY OLIVIER . [...] CHOL 227 mg/dL (Abnormal) Comments: <200 mg/dL Tlzhveuaw942-386 mg/dL Borderline>240 mg/dL High Risk HDL 81 [...] CHOL 229 mg/dL (Abnormal) Comments: <200 mg/dL Yqlroypec933-152 mg/dL Borderline>240 mg/dL High Risk :16 PT [...] Rodriguez M.D.September 21, 2012 at 11:00:07 AM [phone] Signed RU/RU If you are the referring physician and would like to consult with theradiologist who provided this interpretation, please contact Man Styles at [phone]. If this radiologist is unavailable, youwillbe directed to another radiologist to as sist. If you are a patient with a question regarding this report, pleasecontactyour referring physician directly. Professional Interpretation Provided By: [employer], Phone ,Fax These documents contain legally protected [...] on 09/21/12 1106 Sign by: Laith Rodriguez 6-Upl-[id number] CUUR U[facility] See Note (Normal) Comments: This is an amended result. A prior result that was reported as final has been changed.09/07/12 1448 by NSTANSLOSPreviously reported as: FINAL COLONY COUNT <1000 ORGANISM 1: MIXED GRAM POSITIVE ORGANISMS 2-Rrl-148921:40 LYMEWB qICHVALJ06I Absent (Normal) tLYMWBINTM Negative (Normal) Comments: Note: [...] are those recommended byCDC/ASTPHLD. p23=Osp C , f56=ildyhmtow.Note:Sera from individuals with the following may cross reactin the Lyme Western Blot assays: other spirochetal diseases(periodontal disease, leptospirosis, relapsing fever, yaws,and pin ta); connective autoimmune (Rheumatoid Arthritis andSystemic Lupus Erythematosus and also individuals withAntinuclear Antibody); other infections (Angel MountainSpotted Fever; Desirae-Camargo Virus, and Cy tomegalovirus)..Performed at: [facility] [employer] [id number] Director: Juan Ontiveros MD, Phone: [phone] uAULDTIN57A Absent (Normal) nIDCMYQM70P Absent (Normal) rHENVJQP10S Absent (Normal) yCSEVMVI97T Absent (Normal) tLYMWBINTG Negative (Normal) Comments: Positive: 5 of the followingBorrelia- specific bands:18,23,28,30,39,41,45,58,66, and 93.Negative: No bands or bandingpatterns which do notmeet positive criteria. fWXWWKEI97E Absent (Normal) tCVSIZJR03P Absent (Normal) nMQABVHI31J Absent (Normal) pXIGLSVM19R Present (Abnormal) vNZKXQBF36H Absent (Normal) qMCXHIHO14R Absent (Normal) pZCQTMIU24L Absent (Normal) qGFOEEIA96P Absent (Normal) :03 PT INR 2.9 (Normal) PTP 28.1 s (Abnormal) Range: 11.9-14.4 24-Doj-489507:12 Microscopic Examination Comments: PATIENT NOT FASTINGPERFORMED BY: [facility]6370 [facility] [id number] Bacteria Few (Normal) Mucus Threads Present (Normal) Epithelial Cells (non renal) 0-10 {/hpf} (Normal) Range: 0 - 10 RBC None seen {/hpf} (Normal) Range: 0 - 3 WBC None seen {/hpf} (Normal) Range: 0 - 5 :12 Lyme Disease Antibody W/ Comments: PATIENT NOT FASTINGPERFORMED BY: [employer] Fsldwc1009 [facility] [id number] Reflex ([id number]) Lyme Ab Interp.,EIA Negative (Normal) Lyme IgG/IgM [...] by Western blot. :12 SED RATE ERYTHROCYTE ([id number]) Comments: PATIENT NOT FASTINGPERFORMED BY: [employer] Fhorbn9691 [facility] [id number] Sedimentation Rate-Westergren 2 mm/h (Normal) Range: 0-40 25-Gsn-435239:12 C-REACTIVE PROTEIN ([id number]) Comments: PATIENT NOT FASTINGPERFORMED BY: [employer] Giblsi5250 [facility] [id number] C-Reactive Protein, Quant 0.7 mg/L (Normal) Range: 0.0-4.9 81-Fls-407820:12 URINALYSIS, W/ MICRO ([id number]) Comments: PATIENT NOT FASTINGPERFORMED BY: [facility]armaR[facility] HospitalOmcbeh9140 [facility] [id number] Microscopic Examination See below: (Normal) Nitrite, Urine Negative (Normal) Urobilinogen,Semi-Qn 0.2 mg/dL (Normal) Range: 0.0-1.9 Bilirubin Negative (Normal) Occult Blood Negative (Normal) Ketones 3+ (Abnormal) Glucose Negative (Normal) Protein 1+ (Abnormal) WBC Esterase Negative (Normal) Appearance Clear (Normal) Urine-Color Yellow (Normal) pH 6.0 (Normal) Range: 5.0-7.5 Specific [place] 1.025 (Normal) Range: 1.005-1.030 77-Jno-344622:12 TSH ([id number]) Comments: PATIENT NOT FASTINGPERFORMED BY: [facility]armaZ[facility] CenterHxrevb2998 [facility] [id number] TSH 2.400 {uIU/mL} (Normal) Range: 0.450-4.500 76-Dqg-949293:12 METABOLIC PANEL, COMPREHENSIVE Comments: PATIENT NOT FASTINGPERFORMED BY: [facility]armaZ[facility] CenterYhzeyj6705 [facility] [id number] ([id number]) ALT (SGPT) 19 [iU]/L (Normal) Range: 0-32 [...] Glucose, Serum 91 mg/dL (Normal) Range: 65-99 61-Mzt-798630:12 CBC WITH MANUAL DIFF Comments: PATIENT NOT FASTINGPERFORMED BY: [facility]armaZ[facility] CenterSmkbaj9196 [facility] [id number] Information: [id number] ([id number]) Immature Grans (Abs) 0.0 {x10E3/uL} (Normal) Range: [...] 200-240 mg/dL Borderline >240 mg/dL High Risk 68-Qnl-06191:12 PT INR 1.0 (Normal) PTP 12.8 s [...] D deficiency has been defined by the [place] of[facility] Hospital[facility] and an Endocrine Society practice guideline as alevel of serum 25-OH vitamin D less than 20 ng/mL (1,2).The Endocrine Society went on to further define vitamin Dinsufficiency as a level between 21 and 29 ng/mL (2).1. IOM ([place] of Medicine). 2010. Dietary reference intakes for calcium and D. [place]: The National Academies Press.2. Ana MF, Heriberto NC, Jayla BECKFORD, et al. Evaluation, treatment, and prevention of vitamin D deficiency: an Endocrine Society clinical practice guideline. JCEM. 2010; 96(7): 1911-30.Performed at: [address] [id number] Director: Narendra Covarrubias PhD, Phone: [phone] Plan of Care Name Dates Details Instructions [...] Planned Observations CBC, Platelets & Auto Diff ([id number])Indication: Leukopenia On: : Request CBC, Platelets & Auto Diff ([id number])Indication: Leukopenia On: :00 Request CBC, Platelets & Auto Diff ([id number])Indication: Leukopenia On: 13-Mar-2042 Request CBC, Platelets & Auto Diff ([id number])Indication: Leukopenia On: :00 Request CBC, Platelets & Auto Diff ([id number])Indication: Leukopenia On: :00 Request CBC, Platelets & Auto Diff ([id number])Indication: Leukopenia On: :00 Request CBC, Platelets & Auto Diff ([id number])Indication: Leukopenia On: 18-Mar-2041 Request CBC, Platelets & Auto Diff ([id number])Indication: Leukopenia On: :00 Request CBC, Platelets & Auto Diff ([id number])Indication: Leukopenia On: :00 Request CBC, Platelets & Auto Diff ([id number])Indication: Leukopenia On: :00 Request CBC, Platelets & Auto Diff ([id number])Indication: Leukopenia On: 23-Mar-2040 Request CBC, Platelets & Auto Diff ([id number])Indication: Leukopenia On: : Request CBC, Platelets & Auto Diff ([id number])Indication: Leukopenia On: :00 Request CBC, Platelets & Auto Diff ([id number])Indication: Leukopenia On: : Request CBC, Platelets & Auto Diff ([id number])Indication: Leukopenia On: 29-Mar-2039 Request CBC, Platelets & Auto Diff ([id number])Indication: Leukopenia On: : Request CBC, Platelets & Auto Diff ([id number])Indication: Leukopenia On: :00 Request CBC, Platelets & Auto Diff ([id number])Indication: Leukopenia On: :00 Request CBC, Platelets & Auto Diff ([id number])Indication: Leukopenia On: 03-Apr-2038 Request CBC, Platelets & Auto Diff ([id number])Indication: Leukopenia On: :00 Request CBC, Platelets & Auto Diff ([id number])Indication: Leukopenia On: :00 Request CBC, Platelets & Auto Diff ([id number])Indication: Leukopenia On: :00 Request CBC, Platelets & Auto Diff ([id number])Indication: Leukopenia On: 08-Apr-2037 Request CBC, Platelets & Auto Diff ([id number])Indication: Leukopenia On: :00 Request CBC, Platelets & Auto Diff ([id number])Indication: Leukopenia On: :00 Request CBC, Platelets & Auto Diff ([id number])Indication: Leukopenia On: :00 Request CBC, Platelets & Auto Diff ([id number])Indication: Leukopenia On: 13-Apr-2036 Request CBC, Platelets & Auto Diff ([id number])Indication: Leukopenia On: :00 Request CBC, Platelets & Auto Diff ([id number])Indication: Leukopenia On: :00 Request CBC, Platelets & Auto Diff ([id number])Indication: Leukopenia On: :00 Request CBC, Platelets & Auto Diff ([id number])Indication: Leukopenia On: 19-Apr-2035 Request CBC, Platelets & Auto Diff ([id number])Indication: Leukopenia On: : Request CBC, Platelets & Auto Diff ([id number])Indication: Leukopenia On: :00 Request CBC, Platelets & Auto Diff ([id number])Indication: Leukopenia On: : Request CBC, Platelets & Auto Diff ([id number])Indication: Leukopenia On: 24-Apr-2034 Request CBC, Platelets & Auto Diff ([id number])Indication: Leukopenia On: : Request CBC, Platelets & Auto Diff ([id number])Indication: Leukopenia On: : Request CBC, Platelets & Auto Diff ([id number])Indication: Leukopenia On: : Request CBC, Platelets & Auto Diff ([id number])Indication: Leukopenia On: 29-Apr-2033 Request CBC, Platelets & Auto Diff ([id number])Indication: Leukopenia On: :00 Request CBC, Platelets & Auto Diff ([id number])Indication: Leukopenia On: :00 Request CBC, Platelets & Auto Diff ([id number])Indication: Leukopenia On: :00 Request CBC, Platelets & Auto Diff ([id number])Indication: Leukopenia On: 04-May-2032 Request CBC, Platelets & Auto Diff ([id number])Indication: Leukopenia On: :00 Request CBC, Platelets & Auto Diff ([id number])Indication: Leukopenia On: :00 Request CBC, Platelets & Auto Diff ([id number])Indication: Leukopenia On: :00 Request CBC, Platelets & Auto Diff ([id number])Indication: Leukopenia On: 10-May-2031 Request CBC, Platelets & Auto Diff ([id number])Indication: Leukopenia On: 09-Feb-2031 Request CBC, Platelets & Auto Diff ([id number])Indication: Leukopenia On: :00 Request CBC, Platelets & Auto Diff ([id number])Indication: Leukopenia On: :00 Request CBC, Platelets & Auto Diff ([id number])Indication: Leukopenia On: 15-May-2030 Request CBC, Platelets & Auto Diff ([id number])Indication: Leukopenia On: 14-Feb-2030 Request CBC, Platelets & Auto Diff ([id number])Indication: Leukopenia On: :00 Request CBC, Platelets & Auto Diff ([id number])Indication: Leukopenia On: :00 Request CBC, Platelets & Auto Diff ([id number])Indication: Leukopenia On: 20-May-2029 Request CBC, Platelets & Auto Diff ([id number])Indication: Leukopenia On: 19-Feb-2029 Request CBC, Platelets & Auto Diff ([id number])Indication: Leukopenia On: :00 Request CBC, Platelets & Auto Diff ([id number])Indication: Leukopenia On: :00 Request CBC, Platelets & Auto Diff ([id number])Indication: Leukopenia On: 25-May-2028 Request CBC, Platelets & Auto Diff ([id number])Indication: Leukopenia On: 25-Feb-2028 Request CBC, Platelets & Auto Diff ([id number])Indication: Leukopenia On: :00 Request CBC, Platelets & Auto Diff ([id number])Indication: Leukopenia On: :00 Request CBC, Platelets & Auto Diff ([id number])Indication: Leukopenia On: 31-May-2027 Request CBC, Platelets & Auto Diff ([id number])Indication: Leukopenia On: 02-Mar-2027 Request CBC, Platelets & Auto Diff ([id number])Indication: Leukopenia On: :00 Request CBC, Platelets & Auto Diff ([id number])Indication: Leukopenia On: :00 Request CBC, Platelets & Auto Diff ([id number])Indication: Leukopenia On: 05-Jun-2026 Request CBC, Platelets & Auto Diff ([id number])Indication: Leukopenia On: 07-Mar-2026 Request CBC, Platelets & Auto Diff ([id number])Indication: Leukopenia On: :00 Request CBC, Platelets & Auto Diff ([id number])Indication: Leukopenia On: :00 Request CBC, Platelets & Auto Diff ([id number])Indication: Leukopenia On: 10-Jun-2025 Request CBC, Platelets & Auto Diff ([id number])Indication: Leukopenia On: 12-Mar-2025 Request CBC, Platelets & Auto Diff ([id number])Indication: Leukopenia On: :00 Request CBC, Platelets & Auto Diff ([id number])Indication: Leukopenia On: :00 Request CBC, Platelets & Auto Diff ([id number])Indication: Leukopenia On: :00 Request CBC, Platelets & Auto Diff ([id number])Indication: Leukopenia On: 17-Mar-2024 Request CBC, Platelets & Auto Diff ([id number])Indication: Leukopenia On: : Request CBC, Platelets & Auto Diff ([id number])Indication: Leukopenia On: : Request CBC, Platelets & Auto Diff ([id number])Indication: Leukopenia On: :00 Request CBC, Platelets & Auto Diff ([id number])Indication: Leukopenia On: 23-Mar-2023 Request CBC, Platelets & Auto Diff ([id number])Indication: Leukopenia On: :00 Request CBC, Platelets & Auto Diff ([id number])Indication: Leukopenia On: :00 Request CBC, Platelets & Auto Diff ([id number])Indication: Leukopenia On: :00 Request CBC, Platelets & Auto Diff ([id number])Indication: Leukopenia On: 28-Mar-2022 Request CBC, Platelets & Auto Diff ([id number])Indication: Leukopenia On: :00 Request CBC, Platelets & Auto Diff ([id number])Indication: Leukopenia On: :00 Request CBC, Platelets & Auto Diff ([id number])Indication: Leukopenia On: :00 Request CBC, Platelets & Auto Diff ([id number])Indication: Leukopenia On: 02-Apr-2021 Request CBC, Platelets & Auto Diff ([id number])Indication: Leukopenia On: :00 Request CBC, Platelets & Auto Diff ([id number])Indication: Leukopenia On: :00 Request CBC, Platelets & Auto Diff ([id number])Indication: Leukopenia On: :00 Request CBC, Platelets & Auto Diff ([id number])Indication: Leukopenia On: 07-Apr-2020 Request CBC, Platelets & Auto Diff ([id number])Indication: Leukopenia On: 08-Jan-2020 Request CBC, Platelets & Auto Diff ([id number])Indication: Leukopenia On: 10-Oct-2019 Request CBC, Platelets & Auto Diff ([id number])Indication: Leukopenia On: 12-Jul-2019 Request CBC, Platelets & Auto Diff ([id number])Indication: Leukopenia On: 13-Apr-2019 Request PT (PROTHROMBIN TIME) ([id number]) : standing orderIndication: History of DVT (deep vein thrombosis) On: 02-Mar-2019 Request Comments: standing order PT (PROTHROMBIN TIME) ([id number]) : standing orderIndication: History of DVT (deep vein thrombosis) On: 01-Mar-2019 Request Comments: standing order PT (PROTHROMBIN TIME) ([id number]) : standing orderIndication: History of DVT (deep vein thrombosis) On: 28-Feb-2019 Request Comments: standing order PT (PROTHROMBIN TIME) ([id number]) : standing orderIndication: History of DVT (deep vein thrombosis) On: 27-Feb-2019 Request Comments: standing order PT (PROTHROMBIN TIME) ([id number]) : standing orderIndication: History of DVT (deep vein thrombosis) On: 26-Feb-2019 Request Comments: standing order PT (PROTHROMBIN TIME) ([id number])Indication: History of DVT (deep vein thrombosis) On: 25-Feb-2019 Request PT (PROTHROMBIN TIME) ([id number]) : standing orderIndication: History of DVT (deep vein thrombosis) On: 25-Feb-2019 Request Comments: standing order PT (PROTHROMBIN TIME) ([id number]) : standing orderIndication: History of DVT (deep vein thrombosis) On: 25-Feb-2019 Request Comments: standing order PT (PROTHROMBIN TIME) ([id number]) : standing orderIndication: History of DVT (deep vein thrombosis) On: 24-Feb-2019 Request Comments: standing order PT (PROTHROMBIN TIME) ([id number]) : standing orderIndication: History of DVT (deep vein thrombosis) On: 23-Feb-2019 Request Comments: standing order PT (PROTHROMBIN TIME) ([id number]) : standing orderIndication: History of DVT (deep vein thrombosis) On: 22-Feb-2019 Request Comments: standing order PT (PROTHROMBIN TIME) ([id number]) : standing orderIndication: History of DVT (deep vein thrombosis) On: 21-Feb-2019 Request Comments: standing order PT (PROTHROMBIN TIME) ([id number]) : standing orderIndication: History of DVT (deep vein thrombosis) On: 20-Feb-2019 Request Comments: standing order PT (PROTHROMBIN TIME) ([id number]) : standing orderIndication: History of DVT (deep vein thrombosis) On: 19-Feb-2019 Request Comments: standing order PT (PROTHROMBIN TIME) ([id number]) : standing orderIndication: History of DVT (deep vein thrombosis) On: 18-Feb-2019 Request Comments: standing order PT (PROTHROMBIN TIME) ([id number]) : standing orderIndication: History of DVT (deep vein thrombosis) On: 17-Feb-2019 Request Comments: standing order PT (PROTHROMBIN TIME) ([id number]) : standing orderIndication: History of DVT (deep vein thrombosis) On: 16-Feb-2019 Request Comments: standing order PT (PROTHROMBIN TIME) ([id number]) : standing orderIndication: History of DVT (deep vein thrombosis) On: 15-Feb-2019 Request Comments: standing order PT (PROTHROMBIN TIME) ([id number]) : standing orderIndication: History of DVT (deep vein thrombosis) On: 14-Feb-2019 Request Comments: standing order PT (PROTHROMBIN TIME) ([id number]) : standing orderIndication: History of DVT (deep vein thrombosis) On: 13-Feb-2019 Request Comments: standing order PT (PROTHROMBIN TIME) ([id number]) : standing orderIndication: History of DVT (deep vein thrombosis) On: 12-Feb-2019 Request Comments: standing order PT (PROTHROMBIN TIME) ([id number]) : standing orderIndication: History of DVT (deep vein thrombosis) On: 11-Feb-2019 Request Comments: standing order PT (PROTHROMBIN TIME) ([id number]) : standing orderIndication: History of DVT (deep vein thrombosis) On: 10-Feb-2019 Request Comments: standing order PT (PROTHROMBIN TIME) ([id number]) : standing orderIndication: History of DVT (deep vein thrombosis) On: 09-Feb-2019 Request Comments: standing order PT (PROTHROMBIN TIME) ([id number]) : standing orderIndication: History of DVT (deep vein thrombosis) On: 08-Feb-2019 Request Comments: standing order PT (PROTHROMBIN TIME) ([id number]) : standing orderIndication: History of DVT (deep vein thrombosis) On: 07-Feb-2019 Request Comments: standing order PT (PROTHROMBIN TIME) ([id number]) : standing orderIndication: History of DVT (deep vein thrombosis) On: 06-Feb-2019 Request Comments: standing order PT (PROTHROMBIN TIME) ([id number]) : standing orderIndication: History of DVT (deep vein thrombosis) On: 05-Feb-2019 Request Comments: standing order PT (PROTHROMBIN TIME) ([id number]) : standing orderIndication: History of DVT (deep vein thrombosis) On: 04-Feb-2019 Request Comments: standing order PT (PROTHROMBIN TIME) ([id number]) : standing orderIndication: History of DVT (deep vein thrombosis) On: 03-Feb-2019 Request Comments: standing order PT (PROTHROMBIN TIME) ([id number]) : standing orderIndication: History of DVT (deep vein thrombosis) On: 02-Feb-2019 Request Comments: standing order PT (PROTHROMBIN TIME) ([id number]) : standing orderIndication: History of DVT (deep vein thrombosis) On: 01-Feb-2019 Request Comments: standing order PT (PROTHROMBIN TIME) ([id number]) : standing orderIndication: History of DVT (deep vein thrombosis) On: 31-Jan-2019 Request Comments: standing order PT (PROTHROMBIN TIME) ([id number]) : standing orderIndication: History of DVT (deep vein thrombosis) On: 30-Jan-2019 Request Comments: standing order PT (PROTHROMBIN TIME) ([id number]) : standing orderIndication: History of DVT (deep vein thrombosis) On: 29-Jan-2019 Request Comments: standing order PT (PROTHROMBIN TIME) ([id number]) : standing orderIndication: History of DVT (deep vein thrombosis) On: 28-Jan-2019 Request Comments: standing order PT (PROTHROMBIN TIME) ([id number]) : standing orderIndication: History of DVT (deep vein thrombosis) On: 27-Jan-2019 Request Comments: standing order PT (PROTHROMBIN TIME) ([id number])Indication: History of DVT (deep vein thrombosis) On: 26-Jan-2019 Request PT (PROTHROMBIN TIME) ([id number]) : standing orderIndication: History of DVT (deep vein thrombosis) On: 26-Jan-2019 Request Comments: standing order PT (PROTHROMBIN TIME) ([id number]) : standing orderIndication: History of DVT (deep vein thrombosis) On: 26-Jan-2019 Request Comments: standing order PT (PROTHROMBIN TIME) ([id number]) : standing orderIndication: History of DVT (deep vein thrombosis) On: 25-Jan-2019 Request Comments: standing order PT (PROTHROMBIN TIME) ([id number]) : standing orderIndication: History of DVT (deep vein thrombosis) On: 24-Jan-2019 Request Comments: standing order PT (PROTHROMBIN TIME) ([id number]) : standing orderIndication: History of DVT (deep vein thrombosis) On: 23-Jan-2019 Request Comments: standing order PT (PROTHROMBIN TIME) ([id number]) : standing orderIndication: History of DVT (deep vein thrombosis) On: 22-Jan-2019 Request Comments: standing order PT (PROTHROMBIN TIME) ([id number]) : standing orderIndication: History of DVT (deep vein thrombosis) On: 21-Jan-2019 Request Comments: standing order PT (PROTHROMBIN TIME) ([id number]) : standing orderIndication: History of DVT (deep vein thrombosis) On: 20-Jan-2019 Request Comments: standing order PT (PROTHROMBIN TIME) ([id number]) : standing orderIndication: History of DVT (deep vein thrombosis) On: 19-Jan-2019 Request Comments: standing order PT (PROTHROMBIN TIME) ([id number]) : standing orderIndication: History of DVT (deep vein thrombosis) On: 18-Jan-2019 Request Comments: standing order PT (PROTHROMBIN TIME) ([id number]) : standing orderIndication: History of DVT (deep vein thrombosis) On: 17-Jan-2019 Request Comments: standing order PT (PROTHROMBIN TIME) ([id number]) : standing orderIndication: History of DVT (deep vein thrombosis) On: 16-Jan-2019 Request Comments: standing order PT (PROTHROMBIN TIME) ([id number]) : standing orderIndication: History of DVT (deep vein thrombosis) On: 15-Jan-2019 Request Comments: standing order PT (PROTHROMBIN TIME) ([id number]) : standing orderIndication: History of DVT (deep vein thrombosis) On: 14-Jan-2019 Request Comments: standing order CBC, Platelets & Auto Diff ([id number])Indication: Leukopenia On: 13-Jan-2019 Request PT (PROTHROMBIN TIME) ([id number]) : standing orderIndication: History of DVT (deep vein thrombosis) On: 13-Jan-2019 Request Comments: standing order PT (PROTHROMBIN TIME) ([id number]) : standing orderIndication: History of DVT (deep vein thrombosis) On: 12-Jan-2019 Request Comments: standing order PT (PROTHROMBIN TIME) ([id number]) : standing orderIndication: History of DVT (deep vein thrombosis) On: 11-Jan-2019 Request Comments: standing order PT (PROTHROMBIN TIME) ([id number]) : standing orderIndication: History of DVT (deep vein thrombosis) On: 10-Jan-2019 Request Comments: standing order PT (PROTHROMBIN TIME) ([id number]) : standing orderIndication: History of DVT (deep vein thrombosis) On: 09-Jan-2019 Request Comments: standing order PT (PROTHROMBIN TIME) ([id number]) : standing orderIndication: History of DVT (deep vein thrombosis) On: 08-Jan-2019 Request Comments: standing order PT (PROTHROMBIN TIME) ([id number]) : standing orderIndication: History of DVT (deep vein thrombosis) On: 07-Jan-2019 Request Comments: standing order PT (PROTHROMBIN TIME) ([id number]) : standing orderIndication: History of DVT (deep vein thrombosis) On: 06-Jan-2019 Request Comments: standing order PT (PROTHROMBIN TIME) ([id number]) : standing orderIndication: History of DVT (deep vein thrombosis) On: 05-Jan-2019 Request Comments: standing order PT (PROTHROMBIN TIME) ([id number]) : standing orderIndication: History of DVT (deep vein thrombosis) On: 04-Jan-2019 Request Comments: standing order PT (PROTHROMBIN TIME) ([id number]) : standing orderIndication: History of DVT (deep vein thrombosis) On: 03-Jan-2019 Request Comments: standing order PT (PROTHROMBIN TIME) ([id number]) : standing orderIndication: History of DVT (deep vein thrombosis) On: 02-Jan-2019 Request Comments: standing order PT (PROTHROMBIN TIME) ([id number]) : standing orderIndication: History of DVT (deep vein thrombosis) On: 01-Jan-2019 Request Comments: standing order PT (PROTHROMBIN TIME) ([id number]) : standing orderIndication: History of DVT (deep vein thrombosis) On: 31-Dec-2018 Request Comments: standing order PT (PROTHROMBIN TIME) ([id number]) : standing orderIndication: History of DVT (deep vein thrombosis) On: 30-Dec-2018 Request Comments: standing order PT (PROTHROMBIN TIME) ([id number]) : standing orderIndication: History of DVT (deep vein thrombosis) On: 29-Dec-2018 Request Comments: standing order PT (PROTHROMBIN TIME) ([id number]) : standing orderIndication: History of DVT (deep vein thrombosis) On: 28-Dec-2018 Request Comments: standing order PT (PROTHROMBIN TIME) ([id number])Indication: History of DVT (deep vein thrombosis) On: 27-Dec-2018 Request PT (PROTHROMBIN TIME) ([id number]) : standing orderIndication: History of DVT (deep vein thrombosis) On: 27-Dec-2018 Request Comments: standing order PT (PROTHROMBIN TIME) ([id number]) : standing orderIndication: History of DVT (deep vein thrombosis) On: 27-Dec-2018 Request Comments: standing order PT (PROTHROMBIN TIME) ([id number]) : standing orderIndication: History of DVT (deep vein thrombosis) On: 26-Dec-2018 Request Comments: standing order PT (PROTHROMBIN TIME) ([id number]) : standing orderIndication: History of DVT (deep vein thrombosis) On: 25-Dec-2018 Request Comments: standing order PT (PROTHROMBIN TIME) ([id number]) : standing orderIndication: History of DVT (deep vein thrombosis) On: 24-Dec-2018 Request Comments: standing order PT (PROTHROMBIN TIME) ([id number]) : standing orderIndication: History of DVT (deep vein thrombosis) On: 23-Dec-2018 Request Comments: standing order PT (PROTHROMBIN TIME) ([id number]) : standing orderIndication: History of DVT (deep vein thrombosis) On: 22-Dec-2018 Request Comments: standing order PT (PROTHROMBIN TIME) ([id number]) : standing orderIndication: History of DVT (deep vein thrombosis) On: 21-Dec-2018 Request Comments: standing order PT (PROTHROMBIN TIME) ([id number]) : standing orderIndication: History of DVT (deep vein thrombosis) On: 20-Dec-2018 Request Comments: standing order PT (PROTHROMBIN TIME) ([id number]) : standing orderIndication: History of DVT (deep vein thrombosis) On: 19-Dec-2018 Request Comments: standing order PT (PROTHROMBIN TIME) ([id number]) : standing orderIndication: History of DVT (deep vein thrombosis) On: 18-Dec-2018 Request Comments: standing order PT (PROTHROMBIN TIME) ([id number]) : standing orderIndication: History of DVT (deep vein thrombosis) On: 17-Dec-2018 Request Comments: standing order PT (PROTHROMBIN TIME) ([id number]) : standing orderIndication: History of DVT (deep vein thrombosis) On: 16-Dec-2018 Request Comments: standing order PT (PROTHROMBIN TIME) ([id number]) : standing orderIndication: History of DVT (deep vein thrombosis) On: 15-Dec-2018 Request Comments: standing order PT (PROTHROMBIN TIME) ([id number]) : standing orderIndication: History of DVT (deep vein thrombosis) On: 14-Dec-2018 Request Comments: standing order PT (PROTHROMBIN TIME) ([id number]) : standing orderIndication: History of DVT (deep vein thrombosis) On: 13-Dec-2018 Request Comments: standing order PT (PROTHROMBIN TIME) ([id number]) : standing orderIndication: History of DVT (deep vein thrombosis) On: 12-Dec-2018 Request Comments: standing order PT (PROTHROMBIN TIME) ([id number]) : standing orderIndication: History of DVT (deep vein thrombosis) On: 11-Dec-2018 Request Comments: standing order PT (PROTHROMBIN TIME) ([id number]) : standing orderIndication: History of DVT (deep vein thrombosis) On: 10-Dec-2018 Request Comments: standing order PT (PROTHROMBIN TIME) ([id number]) : standing orderIndication: History of DVT (deep vein thrombosis) On: 09-Dec-2018 Request Comments: standing order PT (PROTHROMBIN TIME) ([id number]) : standing orderIndication: History of DVT (deep vein thrombosis) On: 08-Dec-2018 Request Comments: standing order PT (PROTHROMBIN TIME) ([id number]) : standing orderIndication: History of DVT (deep vein thrombosis) On: 07-Dec-2018 Request Comments: standing order PT (PROTHROMBIN TIME) ([id number]) : standing orderIndication: History of DVT (deep vein thrombosis) On: 06-Dec-2018 Request Comments: standing order PT (PROTHROMBIN TIME) ([id number]) : standing orderIndication: History of DVT (deep vein thrombosis) On: 05-Dec-2018 Request Comments: standing order PT (PROTHROMBIN TIME) ([id number]) : standing orderIndication: History of DVT (deep vein thrombosis) On: 04-Dec-2018 Request Comments: standing order PT (PROTHROMBIN TIME) ([id number]) : standing orderIndication: History of DVT (deep vein thrombosis) On: 03-Dec-2018 Request Comments: standing order PT (PROTHROMBIN TIME) ([id number]) : standing orderIndication: History of DVT (deep vein thrombosis) On: 02-Dec-2018 Request Comments: standing order PT (PROTHROMBIN TIME) ([id number]) : standing orderIndication: History of DVT (deep vein thrombosis) On: 01-Dec-2018 Request Comments: standing order PT (PROTHROMBIN TIME) ([id number]) : standing orderIndication: History of DVT (deep vein thrombosis) On: 30-Nov-2018 Request Comments: standing order PT (PROTHROMBIN TIME) ([id number]) : standing orderIndication: History of DVT (deep vein thrombosis) On: 29-Nov-2018 Request Comments: standing order PT (PROTHROMBIN TIME) ([id number]) : standing orderIndication: History of DVT (deep vein thrombosis) On: 28-Nov-2018 Request Comments: standing order PT (PROTHROMBIN TIME) ([id number])Indication: History of DVT (deep vein thrombosis) On: 27-Nov-2018 Request PT (PROTHROMBIN TIME) ([id number]) : standing orderIndication: History of DVT (deep vein thrombosis) On: 27-Nov-2018 Request Comments: standing order PT (PROTHROMBIN TIME) ([id number]) : standing orderIndication: History of DVT (deep vein thrombosis) On: 27-Nov-2018 Request Comments: standing order PT (PROTHROMBIN TIME) ([id number]) : standing orderIndication: History of DVT (deep vein thrombosis) On: 26-Nov-2018 Request Comments: standing order PT (PROTHROMBIN TIME) ([id number]) : standing orderIndication: History of DVT (deep vein thrombosis) On: 25-Nov-2018 Request Comments: standing order PT (PROTHROMBIN TIME) ([id number]) : standing orderIndication: History of DVT (deep vein thrombosis) On: 24-Nov-2018 Request Comments: standing order PT (PROTHROMBIN TIME) ([id number]) : standing orderIndication: History of DVT (deep vein thrombosis) On: 23-Nov-2018 Request Comments: standing order PT (PROTHROMBIN TIME) ([id number]) : standing orderIndication: History of DVT (deep vein thrombosis) On: 22-Nov-2018 Request Comments: standing order PT (PROTHROMBIN TIME) ([id number]) : standing orderIndication: History of DVT (deep vein thrombosis) On: 21-Nov-2018 Request Comments: standing order PT (PROTHROMBIN TIME) ([id number]) : standing orderIndication: History of DVT (deep vein thrombosis) On: 20-Nov-2018 Request Comments: standing order PT (PROTHROMBIN TIME) ([id number]) : standing orderIndication: History of DVT (deep vein thrombosis) On: 19-Nov-2018 Request Comments: standing order PT (PROTHROMBIN TIME) ([id number]) : standing orderIndication: History of DVT (deep vein thrombosis) On: 18-Nov-2018 Request Comments: standing order PT (PROTHROMBIN TIME) ([id number]) : standing orderIndication: History of DVT (deep vein thrombosis) On: 17-Nov-2018 Request Comments: standing order PT (PROTHROMBIN TIME) ([id number]) : standing orderIndication: History of DVT (deep vein thrombosis) On: 16-Nov-2018 Request Comments: standing order PT (PROTHROMBIN TIME) ([id number]) : standing orderIndication: History of DVT (deep vein thrombosis) On: 15-Nov-2018 Request Comments: standing order PT (PROTHROMBIN TIME) ([id number]) : standing orderIndication: History of DVT (deep vein thrombosis) On: 14-Nov-2018 Request Comments: standing order PT (PROTHROMBIN TIME) ([id number]) : standing orderIndication: History of DVT (deep vein thrombosis) On: 13-Nov-2018 Request Comments: standing order PT (PROTHROMBIN TIME) ([id number]) : standing orderIndication: History of DVT (deep vein thrombosis) On: 12-Nov-2018 Request Comments: standing order PT (PROTHROMBIN TIME) ([id number]) : standing orderIndication: History of DVT (deep vein thrombosis) On: 11-Nov-2018 Request Comments: standing order PT (PROTHROMBIN TIME) ([id number]) : standing orderIndication: History of DVT (deep vein thrombosis) On: 10-Nov-2018 Request Comments: standing order PT (PROTHROMBIN TIME) ([id number]) : standing orderIndication: History of DVT (deep vein thrombosis) On: 09-Nov-2018 Request Comments: standing order PT (PROTHROMBIN TIME) ([id number]) : standing orderIndication: History of DVT (deep vein thrombosis) On: 08-Nov-2018 Request Comments: standing order PT (PROTHROMBIN TIME) ([id number]) : standing orderIndication: History of DVT (deep vein thrombosis) On: 07-Nov-2018 Request Comments: standing order PT (PROTHROMBIN TIME) ([id number]) : standing orderIndication: History of DVT (deep vein thrombosis) On: 06-Nov-2018 Request Comments: standing order PT (PROTHROMBIN TIME) ([id number]) : standing orderIndication: History of DVT (deep vein thrombosis) On: 05-Nov-2018 Request Comments: standing order PT (PROTHROMBIN TIME) ([id number]) : standing orderIndication: History of DVT (deep vein thrombosis) On: 04-Nov-2018 Request Comments: standing order PT (PROTHROMBIN TIME) ([id number]) : standing orderIndication: History of DVT (deep vein thrombosis) On: 03-Nov-2018 Request Comments: standing order PT (PROTHROMBIN TIME) ([id number]) : standing orderIndication: History of DVT (deep vein thrombosis) On: 02-Nov-2018 Request Comments: standing order PT (PROTHROMBIN TIME) ([id number]) : standing orderIndication: History of DVT (deep vein thrombosis) On: 01-Nov-2018 Request Comments: standing order PT (PROTHROMBIN TIME) ([id number]) : standing orderIndication: History of DVT (deep vein thrombosis) On: 31-Oct-2018 Request Comments: standing order PT (PROTHROMBIN TIME) ([id number]) : standing orderIndication: History of DVT (deep vein thrombosis) On: 30-Oct-2018 Request Comments: standing order PT (PROTHROMBIN TIME) ([id number]) : standing orderIndication: History of DVT (deep vein thrombosis) On: 29-Oct-2018 Request Comments: standing order PT (PROTHROMBIN TIME) ([id number])Indication: History of DVT (deep vein thrombosis) On: 28-Oct-2018 Request PT (PROTHROMBIN TIME) ([id number]) : standing orderIndication: History of DVT (deep vein thrombosis) On: 28-Oct-2018 Request Comments: standing order PT (PROTHROMBIN TIME) ([id number]) : standing orderIndication: History of DVT (deep vein thrombosis) On: 28-Oct-2018 Request Comments: standing order PT (PROTHROMBIN TIME) ([id number]) : standing orderIndication: History of DVT (deep vein thrombosis) On: 27-Oct-2018 Request Comments: standing order PT (PROTHROMBIN TIME) ([id number]) : standing orderIndication: History of DVT (deep vein thrombosis) On: 26-Oct-2018 Request Comments: standing order PT (PROTHROMBIN TIME) ([id number]) : standing orderIndication: History of DVT (deep vein thrombosis) On: 25-Oct-2018 Request Comments: standing order PT (PROTHROMBIN TIME) ([id number]) : standing orderIndication: History of DVT (deep vein thrombosis) On: 24-Oct-2018 Request Comments: standing order PT (PROTHROMBIN TIME) ([id number]) : standing orderIndication: History of DVT (deep vein thrombosis) On: 23-Oct-2018 Request Comments: standing order PT (PROTHROMBIN TIME) ([id number]) : standing orderIndication: History of DVT (deep vein thrombosis) On: 22-Oct-2018 Request Comments: standing order PT (PROTHROMBIN TIME) ([id number]) : standing orderIndication: History of DVT (deep vein thrombosis) On: 21-Oct-2018 Request Comments: standing order PT (PROTHROMBIN TIME) ([id number]) : standing orderIndication: History of DVT (deep vein thrombosis) On: 20-Oct-2018 Request Comments: standing order PT (PROTHROMBIN TIME) ([id number]) : standing orderIndication: History of DVT (deep vein thrombosis) On: 19-Oct-2018 Request Comments: standing order PT (PROTHROMBIN TIME) ([id number]) : standing orderIndication: History of DVT (deep vein thrombosis) On: 18-Oct-2018 Request Comments: standing order PT (PROTHROMBIN TIME) ([id number]) : standing orderIndication: History of DVT (deep vein thrombosis) On: 17-Oct-2018 Request Comments: standing order PT (PROTHROMBIN TIME) ([id number]) : standing orderIndication: History of DVT (deep vein thrombosis) On: 16-Oct-2018 Request Comments: standing order CBC, Platelets & Auto Diff ([id number])Indication: Leukopenia On: 15-Oct-2018 Request PT (PROTHROMBIN TIME) ([id number]) : standing orderIndication: History of DVT (deep vein thrombosis) On: 15-Oct-2018 Request Comments: standing order PT (PROTHROMBIN TIME) ([id number]) : standing orderIndication: History of DVT (deep vein thrombosis) On: 14-Oct-2018 Request Comments: standing order PT (PROTHROMBIN TIME) ([id number]) : standing orderIndication: History of DVT (deep vein thrombosis) On: 13-Oct-2018 Request Comments: standing order PT (PROTHROMBIN TIME) ([id number]) : standing orderIndication: History of DVT (deep vein thrombosis) On: 12-Oct-2018 Request Comments: standing order PT (PROTHROMBIN TIME) ([id number]) : standing orderIndication: History of DVT (deep vein thrombosis) On: 11-Oct-2018 Request Comments: standing order PT (PROTHROMBIN TIME) ([id number]) : standing orderIndication: History of DVT (deep vein thrombosis) On: 10-Oct-2018 Request Comments: standing order PT (PROTHROMBIN TIME) ([id number]) : standing orderIndication: History of DVT (deep vein thrombosis) On: 09-Oct-2018 Request Comments: standing order PT (PROTHROMBIN TIME) ([id number]) : standing orderIndication: History of DVT (deep vein thrombosis) On: 08-Oct-2018 Request Comments: standing order PT (PROTHROMBIN TIME) ([id number]) : standing orderIndication: History of DVT (deep vein thrombosis) On: 07-Oct-2018 Request Comments: standing order PT (PROTHROMBIN TIME) ([id number]) : standing orderIndication: History of DVT (deep vein thrombosis) On: 06-Oct-2018 Request Comments: standing order PT (PROTHROMBIN TIME) ([id number]) : standing orderIndication: History of DVT (deep vein thrombosis) On: 05-Oct-2018 Request Comments: standing order PT (PROTHROMBIN TIME) ([id number]) : standing orderIndication: History of DVT (deep vein thrombosis) On: 04-Oct-2018 Request Comments: standing order PT (PROTHROMBIN TIME) ([id number]) : standing orderIndication: History of DVT (deep vein thrombosis) On: 03-Oct-2018 Request Comments: standing order PT (PROTHROMBIN TIME) ([id number]) : standing orderIndication: History of DVT (deep vein thrombosis) On: 02-Oct-2018 Request Comments: standing order PT (PROTHROMBIN TIME) ([id number]) : standing orderIndication: History of DVT (deep vein thrombosis) On: 01-Oct-2018 Request Comments: standing order PT (PROTHROMBIN TIME) ([id number]) : standing orderIndication: History of DVT (deep vein thrombosis) On: 30-Sep-2018 Request Comments: standing order PT (PROTHROMBIN TIME) ([id number]) : standing orderIndication: History of DVT (deep vein thrombosis) On: 29-Sep-2018 Request Comments: standing order PT (PROTHROMBIN TIME) ([id number])Indication: History of DVT (deep vein thrombosis) On: 28-Sep-2018 Request PT (PROTHROMBIN TIME) ([id number]) : standing orderIndication: History of DVT (deep vein thrombosis) On: 28-Sep-2018 Request Comments: standing order PT (PROTHROMBIN TIME) ([id number]) : standing orderIndication: History of DVT (deep vein thrombosis) On: 28-Sep-2018 Request Comments: standing order PT (PROTHROMBIN TIME) ([id number]) : standing orderIndication: History of DVT (deep vein thrombosis) On: 27-Sep-2018 Request Comments: standing order PT (PROTHROMBIN TIME) ([id number]) : standing orderIndication: History of DVT (deep vein thrombosis) On: 26-Sep-2018 Request Comments: standing order PT (PROTHROMBIN TIME) ([id number]) : standing orderIndication: History of DVT (deep vein thrombosis) On: 25-Sep-2018 Request Comments: standing order PT (PROTHROMBIN TIME) ([id number]) : standing orderIndication: History of DVT (deep vein thrombosis) On: 24-Sep-2018 Request Comments: standing order PT (PROTHROMBIN TIME) ([id number]) : standing orderIndication: History of DVT (deep vein thrombosis) On: 23-Sep-2018 Request Comments: standing order PT (PROTHROMBIN TIME) ([id number]) : standing orderIndication: History of DVT (deep vein thrombosis) On: 22-Sep-2018 Request Comments: standing order PT (PROTHROMBIN TIME) ([id number]) : standing orderIndication: History of DVT (deep vein thrombosis) On: 21-Sep-2018 Request Comments: standing order PT (PROTHROMBIN TIME) ([id number]) : standing orderIndication: History of DVT (deep vein thrombosis) On: 20-Sep-2018 Request Comments: standing order PT (PROTHROMBIN TIME) ([id number]) : standing orderIndication: History of DVT (deep vein thrombosis) On: 19-Sep-2018 Request Comments: standing order PT (PROTHROMBIN TIME) ([id number]) : standing orderIndication: History of DVT (deep vein thrombosis) On: 18-Sep-2018 Request Comments: standing order PT (PROTHROMBIN TIME) ([id number]) : standing orderIndication: History of DVT (deep vein thrombosis) On: 17-Sep-2018 Request Comments: standing order PT (PROTHROMBIN TIME) ([id number]) : standing orderIndication: History of DVT (deep vein thrombosis) On: 17-Sep-2018 Request Comments: standing order PT (PROTHROMBIN TIME) ([id number]) : standing orderIndication: History of DVT (deep vein thrombosis) On: 16-Sep-2018 Request Comments: standing order PT (PROTHROMBIN TIME) ([id number]) : standing orderIndication: History of DVT (deep vein thrombosis) On: 16-Sep-2018 Request Comments: standing order PT (PROTHROMBIN TIME) ([id number]) : standing orderIndication: History of DVT (deep vein thrombosis) On: 15-Sep-2018 Request Comments: standing order PT (PROTHROMBIN TIME) ([id number]) : standing orderIndication: History of DVT (deep vein thrombosis) On: 15-Sep-2018 Request Comments: standing order PT (PROTHROMBIN TIME) ([id number]) : standing orderIndication: History of DVT (deep vein thrombosis) On: 14-Sep-2018 Request Comments: standing order PT (PROTHROMBIN TIME) ([id number]) : standing orderIndication: History of DVT (deep vein thrombosis) On: 14-Sep-2018 Request Comments: standing order PT (PROTHROMBIN TIME) ([id number]) : standing orderIndication: History of DVT (deep vein thrombosis) On: 13-Sep-2018 Request Comments: standing order PT (PROTHROMBIN TIME) ([id number]) : standing orderIndication: History of DVT (deep vein thrombosis) On: 13-Sep-2018 Request Comments: standing order PT (PROTHROMBIN TIME) ([id number]) : standing orderIndication: History of DVT (deep vein thrombosis) On: 12-Sep-2018 Request Comments: standing order PT (PROTHROMBIN TIME) ([id number]) : standing orderIndication: History of DVT (deep vein thrombosis) On: 12-Sep-2018 Request Comments: standing order PT (PROTHROMBIN TIME) ([id number]) : standing orderIndication: History of DVT (deep vein thrombosis) On: 11-Sep-2018 Request Comments: standing order PT (PROTHROMBIN TIME) ([id number]) : standing orderIndication: History of DVT (deep vein thrombosis) On: 11-Sep-2018 Request Comments: standing order PT (PROTHROMBIN TIME) ([id number]) : standing orderIndication: History of DVT (deep vein thrombosis) On: 10-Sep-2018 Request Comments: standing order PT (PROTHROMBIN TIME) ([id number]) : standing orderIndication: History of DVT (deep vein thrombosis) On: 10-Sep-2018 Request Comments: standing order PT (PROTHROMBIN TIME) ([id number]) : standing orderIndication: History of DVT (deep vein thrombosis) On: 09-Sep-2018 Request Comments: standing order PT (PROTHROMBIN TIME) ([id number]) : standing orderIndication: History of DVT (deep vein thrombosis) On: 09-Sep-2018 Request Comments: standing order PT (PROTHROMBIN TIME) ([id number]) : standing orderIndication: History of DVT (deep vein thrombosis) On: 08-Sep-2018 Request Comments: standing order PT (PROTHROMBIN TIME) ([id number]) : standing orderIndication: History of DVT (deep vein thrombosis) On: 08-Sep-2018 Request Comments: standing order PT (PROTHROMBIN TIME) ([id number]) : standing orderIndication: History of DVT (deep vein thrombosis) On: 07-Sep-2018 Request Comments: standing order PT (PROTHROMBIN TIME) ([id number]) : standing orderIndication: History of DVT (deep vein thrombosis) On: 07-Sep-2018 Request Comments: standing order PT (PROTHROMBIN TIME) ([id number]) : standing orderIndication: History of DVT (deep vein thrombosis) On: 06-Sep-2018 Request Comments: standing order PT (PROTHROMBIN TIME) ([id number]) : standing orderIndication: History of DVT (deep vein thrombosis) On: 06-Sep-2018 Request Comments: standing order PT (PROTHROMBIN TIME) ([id number]) : standing orderIndication: History of DVT (deep vein thrombosis) On: 05-Sep-2018 Request Comments: standing order PT (PROTHROMBIN TIME) ([id number]) : standing orderIndication: History of DVT (deep vein thrombosis) On: 05-Sep-2018 Request Comments: standing order PT (PROTHROMBIN TIME) ([id number]) : standing orderIndication: History of DVT (deep vein thrombosis) On: 04-Sep-2018 Request Comments: standing order PT (PROTHROMBIN TIME) ([id number]) : standing orderIndication: History of DVT (deep vein thrombosis) On: 04-Sep-2018 Request Comments: standing order PT (PROTHROMBIN TIME) ([id number]) : standing orderIndication: History of DVT (deep vein thrombosis) On: 03-Sep-2018 Request Comments: standing order PT (PROTHROMBIN TIME) ([id number]) : standing orderIndication: History of DVT (deep vein thrombosis) On: 03-Sep-2018 Request Comments: standing order PT (PROTHROMBIN TIME) ([id number]) : standing orderIndication: History of DVT (deep vein thrombosis) On: 02-Sep-2018 Request Comments: standing order PT (PROTHROMBIN TIME) ([id number]) : standing orderIndication: History of DVT (deep vein thrombosis) On: 02-Sep-2018 Request Comments: standing order PT (PROTHROMBIN TIME) ([id number]) : standing orderIndication: History of DVT (deep vein thrombosis) On: 01-Sep-2018 Request Comments: standing order PT (PROTHROMBIN TIME) ([id number]) : standing orderIndication: History of DVT (deep vein thrombosis) On: 01-Sep-2018 Request Comments: standing order PT (PROTHROMBIN TIME) ([id number]) : standing orderIndication: History of DVT (deep vein thrombosis) On: 31-Aug-2018 Request Comments: standing order PT (PROTHROMBIN TIME) ([id number]) : standing orderIndication: History of DVT (deep vein thrombosis) On: 31-Aug-2018 Request Comments: standing order PT (PROTHROMBIN TIME) ([id number]) : standing orderIndication: History of DVT (deep vein thrombosis) On: 30-Aug-2018 Request Comments: standing order PT (PROTHROMBIN TIME) ([id number]) : standing orderIndication: History of DVT (deep vein thrombosis) On: 30-Aug-2018 Request Comments: standing order PT (PROTHROMBIN TIME) ([id number])Indication: History of DVT (deep vein thrombosis) On: 29-Aug-2018 Request PT (PROTHROMBIN TIME) ([id number]) : standing orderIndication: History of DVT (deep vein thrombosis) On: 29-Aug-2018 Request Comments: standing order PT (PROTHROMBIN TIME) ([id number]) : standing orderIndication: History of DVT (deep vein thrombosis) On: 29-Aug-2018 Request Comments: standing order PT (PROTHROMBIN TIME) ([id number]) : standing orderIndication: History of DVT (deep vein thrombosis) On: 29-Aug-2018 Request Comments: standing order PT (PROTHROMBIN TIME) ([id number]) : standing orderIndication: History of DVT (deep vein thrombosis) On: 28-Aug-2018 Request Comments: standing order PT (PROTHROMBIN TIME) ([id number]) : standing orderIndication: History of DVT (deep vein thrombosis) On: 28-Aug-2018 Request Comments: standing order PT (PROTHROMBIN TIME) ([id number]) : standing orderIndication: History of DVT (deep vein thrombosis) On: 27-Aug-2018 Request Comments: standing order PT (PROTHROMBIN TIME) ([id number]) : standing orderIndication: History of DVT (deep vein thrombosis) On: 27-Aug-2018 Request Comments: standing order PT (PROTHROMBIN TIME) ([id number]) : standing orderIndication: History of DVT (deep vein thrombosis) On: 26-Aug-2018 Request Comments: standing order PT (PROTHROMBIN TIME) ([id number]) : standing orderIndication: History of DVT (deep vein thrombosis) On: 26-Aug-2018 Request Comments: standing order PT (PROTHROMBIN TIME) ([id number]) : standing orderIndication: History of DVT (deep vein thrombosis) On: 25-Aug-2018 Request Comments: standing order PT (PROTHROMBIN TIME) ([id number]) : standing orderIndication: History of DVT (deep vein thrombosis) On: 25-Aug-2018 Request Comments: standing order PT (PROTHROMBIN TIME) ([id number]) : standing orderIndication: History of DVT (deep vein thrombosis) On: 24-Aug-2018 Request Comments: standing order PT (PROTHROMBIN TIME) ([id number]) : standing orderIndication: History of DVT (deep vein thrombosis) On: 24-Aug-2018 Request Comments: standing order PT (PROTHROMBIN TIME) ([id number]) : standing orderIndication: History of DVT (deep vein thrombosis) On: 23-Aug-2018 Request Comments: standing order PT (PROTHROMBIN TIME) ([id number]) : standing orderIndication: History of DVT (deep vein thrombosis) On: 23-Aug-2018 Request Comments: standing order PT (PROTHROMBIN TIME) ([id number]) : standing orderIndication: History of DVT (deep vein thrombosis) On: 22-Aug-2018 Request Comments: standing order PT (PROTHROMBIN TIME) ([id number]) : standing orderIndication: History of DVT (deep vein thrombosis) On: 22-Aug-2018 Request Comments: standing order PT (PROTHROMBIN TIME) ([id number]) : standing orderIndication: History of DVT (deep vein thrombosis) On: 21-Aug-2018 Request Comments: standing order PT (PROTHROMBIN TIME) ([id number]) : standing orderIndication: History of DVT (deep vein thrombosis) On: 21-Aug-2018 Request Comments: standing order PT (PROTHROMBIN TIME) ([id number]) : standing orderIndication: History of DVT (deep vein thrombosis) On: 20-Aug-2018 Request Comments: standing order PT (PROTHROMBIN TIME) ([id number]) : standing orderIndication: History of DVT (deep vein thrombosis) On: 20-Aug-2018 Request Comments: standing order PT (PROTHROMBIN TIME) ([id number]) : standing orderIndication: History of DVT (deep vein thrombosis) On: 19-Aug-2018 Request Comments: standing order PT (PROTHROMBIN TIME) ([id number]) : standing orderIndication: History of DVT (deep vein thrombosis) On: 19-Aug-2018 Request Comments: standing order PT (PROTHROMBIN TIME) ([id number]) : standing orderIndication: History of DVT (deep vein thrombosis) On: 18-Aug-2018 Request Comments: standing order PT (PROTHROMBIN TIME) ([id number]) : standing orderIndication: History of DVT (deep vein thrombosis) On: 18-Aug-2018 Request Comments: standing order PT (PROTHROMBIN TIME) ([id number]) : standing orderIndication: History of DVT (deep vein thrombosis) On: 17-Aug-2018 Request Comments: standing order PT (PROTHROMBIN TIME) ([id number]) : standing orderIndication: History of DVT (deep vein thrombosis) On: 17-Aug-2018 Request Comments: standing order PT (PROTHROMBIN TIME) ([id number]) : standing orderIndication: History of DVT (deep vein thrombosis) On: 16-Aug-2018 Request Comments: standing order PT (PROTHROMBIN TIME) ([id number]) : standing orderIndication: History of DVT (deep vein thrombosis) On: 16-Aug-2018 Request Comments: standing order PT (PROTHROMBIN TIME) ([id number]) : standing orderIndication: History of DVT (deep vein thrombosis) On: 15-Aug-2018 Request Comments: standing order PT (PROTHROMBIN TIME) ([id number]) : standing orderIndication: History of DVT (deep vein thrombosis) On: 15-Aug-2018 Request Comments: standing order PT (PROTHROMBIN TIME) ([id number]) : standing orderIndication: History of DVT (deep vein thrombosis) On: 14-Aug-2018 Request Comments: standing order PT (PROTHROMBIN TIME) ([id number]) : standing orderIndication: History of DVT (deep vein thrombosis) On: 14-Aug-2018 Request Comments: standing order PT (PROTHROMBIN TIME) ([id number]) : standing orderIndication: History of DVT (deep vein thrombosis) On: 13-Aug-2018 Request Comments: standing order PT (PROTHROMBIN TIME) ([id number]) : standing orderIndication: History of DVT (deep vein thrombosis) On: 13-Aug-2018 Request Comments: standing order PT (PROTHROMBIN TIME) ([id number]) : standing orderIndication: History of DVT (deep vein thrombosis) On: 12-Aug-2018 Request Comments: standing order PT (PROTHROMBIN TIME) ([id number]) : standing orderIndication: History of DVT (deep vein thrombosis) On: 12-Aug-2018 Request Comments: standing order PT (PROTHROMBIN TIME) ([id number]) : standing orderIndication: History of DVT (deep vein thrombosis) On: 11-Aug-2018 Request Comments: standing order PT (PROTHROMBIN TIME) ([id number]) : standing orderIndication: History of DVT (deep vein thrombosis) On: 11-Aug-2018 Request Comments: standing order PT (PROTHROMBIN TIME) ([id number]) : standing orderIndication: History of DVT (deep vein thrombosis) On: 10-Aug-2018 Request Comments: standing order PT (PROTHROMBIN TIME) ([id number]) : standing orderIndication: History of DVT (deep vein thrombosis) On: 10-Aug-2018 Request Comments: standing order PT (PROTHROMBIN TIME) ([id number]) : standing orderIndication: History of DVT (deep vein thrombosis) On: 09-Aug-2018 Request Comments: standing order PT (PROTHROMBIN TIME) ([id number]) : standing orderIndication: History of DVT (deep vein thrombosis) On: 09-Aug-2018 Request Comments: standing order PT (PROTHROMBIN TIME) ([id number]) : standing orderIndication: History of DVT (deep vein thrombosis) On: 08-Aug-2018 Request Comments: standing order PT (PROTHROMBIN TIME) ([id number]) : standing orderIndication: History of DVT (deep vein thrombosis) On: 08-Aug-2018 Request Comments: standing order PT (PROTHROMBIN TIME) ([id number]) : standing orderIndication: History of DVT (deep vein thrombosis) On: 07-Aug-2018 Request Comments: standing order PT (PROTHROMBIN TIME) ([id number]) : standing orderIndication: History of DVT (deep vein thrombosis) On: 07-Aug-2018 Request Comments: standing order PT (PROTHROMBIN TIME) ([id number]) : standing orderIndication: History of DVT (deep vein thrombosis) On: 06-Aug-2018 Request Comments: standing order PT (PROTHROMBIN TIME) ([id number]) : standing orderIndication: History of DVT (deep vein thrombosis) On: 06-Aug-2018 Request Comments: standing order PT (PROTHROMBIN TIME) ([id number]) : standing orderIndication: History of DVT (deep vein thrombosis) On: 05-Aug-2018 Request Comments: standing order PT (PROTHROMBIN TIME) ([id number]) : standing orderIndication: History of DVT (deep vein thrombosis) On: 05-Aug-2018 Request Comments: standing order PT (PROTHROMBIN TIME) ([id number]) : standing orderIndication: History of DVT (deep vein thrombosis) On: 04-Aug-2018 Request Comments: standing order PT (PROTHROMBIN TIME) ([id number]) : standing orderIndication: History of DVT (deep vein thrombosis) On: 04-Aug-2018 Request Comments: standing order PT (PROTHROMBIN TIME) ([id number]) : standing orderIndication: History of DVT (deep vein thrombosis) On: 03-Aug-2018 Request Comments: standing order PT (PROTHROMBIN TIME) ([id number]) : standing orderIndication: History of DVT (deep vein thrombosis) On: 03-Aug-2018 Request Comments: standing order PT (PROTHROMBIN TIME) ([id number]) : standing orderIndication: History of DVT (deep vein thrombosis) On: 02-Aug-2018 Request Comments: standing order PT (PROTHROMBIN TIME) ([id number]) : standing orderIndication: History of DVT (deep vein thrombosis) On: 02-Aug-2018 Request Comments: standing order PT (PROTHROMBIN TIME) ([id number]) : standing orderIndication: History of DVT (deep vein thrombosis) On: 01-Aug-2018 Request Comments: standing order PT (PROTHROMBIN TIME) ([id number]) : standing orderIndication: History of DVT (deep vein thrombosis) On: 01-Aug-2018 Request Comments: standing order PT (PROTHROMBIN TIME) ([id number]) : standing orderIndication: History of DVT (deep vein thrombosis) On: 31-Jul-2018 Request Comments: standing order PT (PROTHROMBIN TIME) ([id number]) : standing orderIndication: History of DVT (deep vein thrombosis) On: 31-Jul-2018 Request Comments: standing order PT (PROTHROMBIN TIME) ([id number])Indication: History of DVT (deep vein thrombosis) On: 30-Jul-2018 Request PT (PROTHROMBIN TIME) ([id number]) : standing orderIndication: History of DVT (deep vein thrombosis) On: 30-Jul-2018 Request Comments: standing order PT (PROTHROMBIN TIME) ([id number]) : standing orderIndication: History of DVT (deep vein thrombosis) On: 30-Jul-2018 Request Comments: standing order PT (PROTHROMBIN TIME) ([id number]) : standing orderIndication: History of DVT (deep vein thrombosis) On: 30-Jul-2018 Request Comments: standing order PT (PROTHROMBIN TIME) ([id number]) : standing orderIndication: History of DVT (deep vein thrombosis) On: 29-Jul-2018 Request Comments: standing order PT (PROTHROMBIN TIME) ([id number]) : standing orderIndication: History of DVT (deep vein thrombosis) On: 29-Jul-2018 Request Comments: standing order PT (PROTHROMBIN TIME) ([id number]) : standing orderIndication: History of DVT (deep vein thrombosis) On: 28-Jul-2018 Request Comments: standing order PT (PROTHROMBIN TIME) ([id number]) : standing orderIndication: History of DVT (deep vein thrombosis) On: 28-Jul-2018 Request Comments: standing order PT (PROTHROMBIN TIME) ([id number]) : standing orderIndication: History of DVT (deep vein thrombosis) On: 27-Jul-2018 Request Comments: standing order PT (PROTHROMBIN TIME) ([id number]) : standing orderIndication: History of DVT (deep vein thrombosis) On: 27-Jul-2018 Request Comments: standing order PT (PROTHROMBIN TIME) ([id number]) : standing orderIndication: History of DVT (deep vein thrombosis) On: 26-Jul-2018 Request Comments: standing order PT (PROTHROMBIN TIME) ([id number]) : standing orderIndication: History of DVT (deep vein thrombosis) On: 26-Jul-2018 Request Comments: standing order PT (PROTHROMBIN TIME) ([id number]) : standing orderIndication: History of DVT (deep vein thrombosis) On: 25-Jul-2018 Request Comments: standing order PT (PROTHROMBIN TIME) ([id number]) : standing orderIndication: History of DVT (deep vein thrombosis) On: 25-Jul-2018 Request Comments: standing order PT (PROTHROMBIN TIME) ([id number]) : standing orderIndication: History of DVT (deep vein thrombosis) On: 24-Jul-2018 Request Comments: standing order PT (PROTHROMBIN TIME) ([id number]) : standing orderIndication: History of DVT (deep vein thrombosis) On: 24-Jul-2018 Request Comments: standing order PT (PROTHROMBIN TIME) ([id number]) : standing orderIndication: History of DVT (deep vein thrombosis) On: 23-Jul-2018 Request Comments: standing order PT (PROTHROMBIN TIME) ([id number]) : standing orderIndication: History of DVT (deep vein thrombosis) On: 23-Jul-2018 Request Comments: standing order PT (PROTHROMBIN TIME) ([id number]) : standing orderIndication: History of DVT (deep vein thrombosis) On: 22-Jul-2018 Request Comments: standing order PT (PROTHROMBIN TIME) ([id number]) : standing orderIndication: History of DVT (deep vein thrombosis) On: 22-Jul-2018 Request Comments: standing order PT (PROTHROMBIN TIME) ([id number]) : standing orderIndication: History of DVT (deep vein thrombosis) On: 21-Jul-2018 Request Comments: standing order PT (PROTHROMBIN TIME) ([id number]) : standing orderIndication: History of DVT (deep vein thrombosis) On: 21-Jul-2018 Request Comments: standing order PT (PROTHROMBIN TIME) ([id number]) : standing orderIndication: History of DVT (deep vein thrombosis) On: 20-Jul-2018 Request Comments: standing order PT (PROTHROMBIN TIME) ([id number]) : standing orderIndication: History of DVT (deep vein thrombosis) On: 20-Jul-2018 Request Comments: standing order PT (PROTHROMBIN TIME) ([id number]) : standing orderIndication: History of DVT (deep vein thrombosis) On: 19-Jul-2018 Request Comments: standing order PT (PROTHROMBIN TIME) ([id number]) : standing orderIndication: History of DVT (deep vein thrombosis) On: 19-Jul-2018 Request Comments: standing order PT (PROTHROMBIN TIME) ([id number]) : standing orderIndication: History of DVT (deep vein thrombosis) On: 18-Jul-2018 Request Comments: standing order PT (PROTHROMBIN TIME) ([id number]) : standing orderIndication: History of DVT (deep vein thrombosis) On: 18-Jul-2018 Request Comments: standing order CBC, Platelets & Auto Diff ([id number])Indication: Leukopenia On: 17-Jul-2018 Request PT (PROTHROMBIN TIME) ([id number]) : standing orderIndication: History of DVT (deep vein thrombosis) On: 17-Jul-2018 Request Comments: standing order PT (PROTHROMBIN TIME) ([id number]) : standing orderIndication: History of DVT (deep vein thrombosis) On: 17-Jul-2018 Request Comments: standing order PT (PROTHROMBIN TIME) ([id number]) : standing orderIndication: History of DVT (deep vein thrombosis) On: 16-Jul-2018 Request Comments: standing order PT (PROTHROMBIN TIME) ([id number]) : standing orderIndication: History of DVT (deep vein thrombosis) On: 16-Jul-2018 Request Comments: standing order PT (PROTHROMBIN TIME) ([id number]) : standing orderIndication: History of DVT (deep vein thrombosis) On: 15-Jul-2018 Request Comments: standing order PT (PROTHROMBIN TIME) ([id number]) : standing orderIndication: History of DVT (deep vein thrombosis) On: 15-Jul-2018 Request Comments: standing order PT (PROTHROMBIN TIME) ([id number]) : standing orderIndication: History of DVT (deep vein thrombosis) On: 14-Jul-2018 Request Comments: standing order PT (PROTHROMBIN TIME) ([id number]) : standing orderIndication: History of DVT (deep vein thrombosis) On: 14-Jul-2018 Request Comments: standing order PT (PROTHROMBIN TIME) ([id number]) : standing orderIndication: History of DVT (deep vein thrombosis) On: 13-Jul-2018 Request Comments: standing order PT (PROTHROMBIN TIME) ([id number]) : standing orderIndication: History of DVT (deep vein thrombosis) On: 13-Jul-2018 Request Comments: standing order PT (PROTHROMBIN TIME) ([id number]) : standing orderIndication: History of DVT (deep vein thrombosis) On: 12-Jul-2018 Request Comments: standing order PT (PROTHROMBIN TIME) ([id number]) : standing orderIndication: History of DVT (deep vein thrombosis) On: 12-Jul-2018 Request Comments: standing order PT (PROTHROMBIN TIME) ([id number]) : standing orderIndication: History of DVT (deep vein thrombosis) On: 11-Jul-2018 Request Comments: standing order PT (PROTHROMBIN TIME) ([id number]) : standing orderIndication: History of DVT (deep vein thrombosis) On: 11-Jul-2018 Request Comments: standing order PT (PROTHROMBIN TIME) ([id number]) : standing orderIndication: History of DVT (deep vein thrombosis) On: 10-Jul-2018 Request Comments: standing order PT (PROTHROMBIN TIME) ([id number]) : standing orderIndication: History of DVT (deep vein thrombosis) On: 10-Jul-2018 Request Comments: standing order PT (PROTHROMBIN TIME) ([id number]) : standing orderIndication: History of DVT (deep vein thrombosis) On: 09-Jul-2018 Request Comments: standing order PT (PROTHROMBIN TIME) ([id number]) : standing orderIndication: History of DVT (deep vein thrombosis) On: 09-Jul-2018 Request Comments: standing order PT (PROTHROMBIN TIME) ([id number]) : standing orderIndication: History of DVT (deep vein thrombosis) On: 08-Jul-2018 Request Comments: standing order PT (PROTHROMBIN TIME) ([id number]) : standing orderIndication: History of DVT (deep vein thrombosis) On: 08-Jul-2018 Request Comments: standing order PT (PROTHROMBIN TIME) ([id number]) : standing orderIndication: History of DVT (deep vein thrombosis) On: 07-Jul-2018 Request Comments: standing order PT (PROTHROMBIN TIME) ([id number]) : standing orderIndication: History of DVT (deep vein thrombosis) On: 07-Jul-2018 Request Comments: standing order PT (PROTHROMBIN TIME) ([id number]) : standing orderIndication: History of DVT (deep vein thrombosis) On: 06-Jul-2018 Request Comments: standing order PT (PROTHROMBIN TIME) ([id number]) : standing orderIndication: History of DVT (deep vein thrombosis) On: 06-Jul-2018 Request Comments: standing order PT (PROTHROMBIN TIME) ([id number]) : standing orderIndication: History of DVT (deep vein thrombosis) On: 05-Jul-2018 Request Comments: standing order PT (PROTHROMBIN TIME) ([id number]) : standing orderIndication: History of DVT (deep vein thrombosis) On: 05-Jul-2018 Request Comments: standing order PT (PROTHROMBIN TIME) ([id number]) : standing orderIndication: History of DVT (deep vein thrombosis) On: 04-Jul-2018 Request Comments: standing order PT (PROTHROMBIN TIME) ([id number]) : standing orderIndication: History of DVT (deep vein thrombosis) On: 04-Jul-2018 Request Comments: standing order PT (PROTHROMBIN TIME) ([id number]) : standing orderIndication: History of DVT (deep vein thrombosis) On: 03-Jul-2018 Request Comments: standing order PT (PROTHROMBIN TIME) ([id number]) : standing orderIndication: History of DVT (deep vein thrombosis) On: 03-Jul-2018 Request Comments: standing order PT (PROTHROMBIN TIME) ([id number]) : standing orderIndication: History of DVT (deep vein thrombosis) On: 02-Jul-2018 Request Comments: standing order PT (PROTHROMBIN TIME) ([id number]) : standing orderIndication: History of DVT (deep vein thrombosis) On: 02-Jul-2018 Request Comments: standing order PT (PROTHROMBIN TIME) ([id number]) : standing orderIndication: History of DVT (deep vein thrombosis) On: 01-Jul-2018 Request Comments: standing order PT (PROTHROMBIN TIME) ([id number]) : standing orderIndication: History of DVT (deep vein thrombosis) On: 01-Jul-2018 Request Comments: standing order PT (PROTHROMBIN TIME) ([id number])Indication: History of DVT (deep vein thrombosis) On: 30-Jun-2018 Request PT (PROTHROMBIN TIME) ([id number]) : standing orderIndication: History of DVT (deep vein thrombosis) On: 30-Jun-2018 Request Comments: standing order PT (PROTHROMBIN TIME) ([id number]) : standing orderIndication: History of DVT (deep vein thrombosis) On: 30-Jun-2018 Request Comments: standing order PT (PROTHROMBIN TIME) ([id number]) : standing orderIndication: History of DVT (deep vein thrombosis) On: 30-Jun-2018 Request Comments: standing order PT (PROTHROMBIN TIME) ([id number]) : standing orderIndication: History of DVT (deep vein thrombosis) On: 29-Jun-2018 Request Comments: standing order PT (PROTHROMBIN TIME) ([id number]) : standing orderIndication: History of DVT (deep vein thrombosis) On: 29-Jun-2018 Request Comments: standing order PT (PROTHROMBIN TIME) ([id number]) : standing orderIndication: History of DVT (deep vein thrombosis) On: 28-Jun-2018 Request Comments: standing order PT (PROTHROMBIN TIME) ([id number]) : standing orderIndication: History of DVT (deep vein thrombosis) On: 28-Jun-2018 Request Comments: standing order PT (PROTHROMBIN TIME) ([id number]) : standing orderIndication: History of DVT (deep vein thrombosis) On: 27-Jun-2018 Request Comments: standing order PT (PROTHROMBIN TIME) ([id number]) : standing orderIndication: History of DVT (deep vein thrombosis) On: 27-Jun-2018 Request Comments: standing order PT (PROTHROMBIN TIME) ([id number]) : standing orderIndication: History of DVT (deep vein thrombosis) On: 26-Jun-2018 Request Comments: standing order PT (PROTHROMBIN TIME) ([id number]) : standing orderIndication: History of DVT (deep vein thrombosis) On: 26-Jun-2018 Request Comments: standing order PT (PROTHROMBIN TIME) ([id number]) : standing orderIndication: History of DVT (deep vein thrombosis) On: 25-Jun-2018 Request Comments: standing order PT (PROTHROMBIN TIME) ([id number]) : standing orderIndication: History of DVT (deep vein thrombosis) On: 25-Jun-2018 Request Comments: standing order PT (PROTHROMBIN TIME) ([id number]) : standing orderIndication: History of DVT (deep vein thrombosis) On: 24-Jun-2018 Request Comments: standing order PT (PROTHROMBIN TIME) ([id number]) : standing orderIndication: History of DVT (deep vein thrombosis) On: 24-Jun-2018 Request Comments: standing order PT (PROTHROMBIN TIME) ([id number]) : standing orderIndication: History of DVT (deep vein thrombosis) On: 23-Jun-2018 Request Comments: standing order PT (PROTHROMBIN TIME) ([id number]) : standing orderIndication: History of DVT (deep vein thrombosis) On: 23-Jun-2018 Request Comments: standing order PT (PROTHROMBIN TIME) ([id number]) : standing orderIndication: History of DVT (deep vein thrombosis) On: 22-Jun-2018 Request Comments: standing order PT (PROTHROMBIN TIME) ([id number]) : standing orderIndication: History of DVT (deep vein thrombosis) On: 22-Jun-2018 Request Comments: standing order PT (PROTHROMBIN TIME) ([id number]) : standing orderIndication: History of DVT (deep vein thrombosis) On: 21-Jun-2018 Request Comments: standing order PT (PROTHROMBIN TIME) ([id number]) : standing orderIndication: History of DVT (deep vein thrombosis) On: 21-Jun-2018 Request Comments: standing order PT (PROTHROMBIN TIME) ([id number]) : standing orderIndication: History of DVT (deep vein thrombosis) On: 20-Jun-2018 Request Comments: standing order PT (PROTHROMBIN TIME) ([id number]) : standing orderIndication: History of DVT (deep vein thrombosis) On: 20-Jun-2018 Request Comments: standing order PT (PROTHROMBIN TIME) ([id number]) : standing orderIndication: History of DVT (deep vein thrombosis) On: 19-Jun-2018 Request Comments: standing order PT (PROTHROMBIN TIME) ([id number]) : standing orderIndication: History of DVT (deep vein thrombosis) On: 19-Jun-2018 Request Comments: standing order PT (PROTHROMBIN TIME) ([id number]) : standing orderIndication: History of DVT (deep vein thrombosis) On: 18-Jun-2018 Request Comments: standing order PT (PROTHROMBIN TIME) ([id number]) : standing orderIndication: History of DVT (deep vein thrombosis) On: 18-Jun-2018 Request Comments: standing order PT (PROTHROMBIN TIME) ([id number]) : standing orderIndication: History of DVT (deep vein thrombosis) On: 17-Jun-2018 Request Comments: standing order PT (PROTHROMBIN TIME) ([id number]) : standing orderIndication: History of DVT (deep vein thrombosis) On: 17-Jun-2018 Request Comments: standing order PT (PROTHROMBIN TIME) ([id number]) : standing orderIndication: History of DVT (deep vein thrombosis) On: 16-Jun-2018 Request Comments: standing order PT (PROTHROMBIN TIME) ([id number]) : standing orderIndication: History of DVT (deep vein thrombosis) On: 16-Jun-2018 Request Comments: standing order PT (PROTHROMBIN TIME) ([id number]) : standing orderIndication: History of DVT (deep vein thrombosis) On: 15-Jun-2018 Request Comments: standing order PT (PROTHROMBIN TIME) ([id number]) : standing orderIndication: History of DVT (deep vein thrombosis) On: 15-Jun-2018 Request Comments: standing order PT (PROTHROMBIN TIME) ([id number]) : standing orderIndication: History of DVT (deep vein thrombosis) On: 14-Jun-2018 Request Comments: standing order PT (PROTHROMBIN TIME) ([id number]) : standing orderIndication: History of DVT (deep vein thrombosis) On: 14-Jun-2018 Request Comments: standing order PT (PROTHROMBIN TIME) ([id number]) : standing orderIndication: History of DVT (deep vein thrombosis) On: 13-Jun-2018 Request Comments: standing order PT (PROTHROMBIN TIME) ([id number]) : standing orderIndication: History of DVT (deep vein thrombosis) On: 13-Jun-2018 Request Comments: standing order PT (PROTHROMBIN TIME) ([id number]) : standing orderIndication: History of DVT (deep vein thrombosis) On: 12-Jun-2018 Request Comments: standing order PT (PROTHROMBIN TIME) ([id number]) : standing orderIndication: History of DVT (deep vein thrombosis) On: 12-Jun-2018 Request Comments: standing order PT (PROTHROMBIN TIME) ([id number]) : standing orderIndication: History of DVT (deep vein thrombosis) On: 11-Jun-2018 Request Comments: standing order PT (PROTHROMBIN TIME) ([id number]) : standing orderIndication: History of DVT (deep vein thrombosis) On: 11-Jun-2018 Request Comments: standing order PT (PROTHROMBIN TIME) ([id number]) : standing orderIndication: History of DVT (deep vein thrombosis) On: 10-Jun-2018 Request Comments: standing order PT (PROTHROMBIN TIME) ([id number]) : standing orderIndication: History of DVT (deep vein thrombosis) On: 10-Jun-2018 Request Comments: standing order PT (PROTHROMBIN TIME) ([id number]) : standing orderIndication: History of DVT (deep vein thrombosis) On: 09-Jun-2018 Request Comments: standing order PT (PROTHROMBIN TIME) ([id number]) : standing orderIndication: History of DVT (deep vein thrombosis) On: 09-Jun-2018 Request Comments: standing order PT (PROTHROMBIN TIME) ([id number]) : standing orderIndication: History of DVT (deep vein thrombosis) On: 08-Jun-2018 Request Comments: standing order PT (PROTHROMBIN TIME) ([id number]) : standing orderIndication: History of DVT (deep vein thrombosis) On: 08-Jun-2018 Request Comments: standing order PT (PROTHROMBIN TIME) ([id number]) : standing orderIndication: History of DVT (deep vein thrombosis) On: 07-Jun-2018 Request Comments: standing order PT (PROTHROMBIN TIME) ([id number]) : standing orderIndication: History of DVT (deep vein thrombosis) On: 07-Jun-2018 Request Comments: standing order PT (PROTHROMBIN TIME) ([id number]) : standing orderIndication: History of DVT (deep vein thrombosis) On: 06-Jun-2018 Request Comments: standing order PT (PROTHROMBIN TIME) ([id number]) : standing orderIndication: History of DVT (deep vein thrombosis) On: 06-Jun-2018 Request Comments: standing order PT (PROTHROMBIN TIME) ([id number]) : standing orderIndication: History of DVT (deep vein thrombosis) On: 05-Jun-2018 Request Comments: standing order PT (PROTHROMBIN TIME) ([id number]) : standing orderIndication: History of DVT (deep vein thrombosis) On: 05-Jun-2018 Request Comments: standing order PT (PROTHROMBIN TIME) ([id number]) : standing orderIndication: History of DVT (deep vein thrombosis) On: 04-Jun-2018 Request Comments: standing order PT (PROTHROMBIN TIME) ([id number]) : standing orderIndication: History of DVT (deep vein thrombosis) On: 04-Jun-2018 Request Comments: standing order PT (PROTHROMBIN TIME) ([id number]) : standing orderIndication: History of DVT (deep vein thrombosis) On: 03-Jun-2018 Request Comments: standing order PT (PROTHROMBIN TIME) ([id number]) : standing orderIndication: History of DVT (deep vein thrombosis) On: 03-Jun-2018 Request Comments: standing order PT (PROTHROMBIN TIME) ([id number]) : standing orderIndication: History of DVT (deep vein thrombosis) On: 02-Jun-2018 Request Comments: standing order PT (PROTHROMBIN TIME) ([id number]) : standing orderIndication: History of DVT (deep vein thrombosis) On: 02-Jun-2018 Request Comments: standing order PT (PROTHROMBIN TIME) ([id number]) : standing orderIndication: History of DVT (deep vein thrombosis) On: 01-Jun-2018 Request Comments: standing order PT (PROTHROMBIN TIME) ([id number]) : standing orderIndication: History of DVT (deep vein thrombosis) On: 01-Jun-2018 Request Comments: standing order PT (PROTHROMBIN TIME) ([id number])Indication: History of DVT (deep vein thrombosis) On: 31-May-2018 Request PT (PROTHROMBIN TIME) ([id number]) : standing orderIndication: History of DVT (deep vein thrombosis) On: 31-May-2018 Request Comments: standing order PT (PROTHROMBIN TIME) ([id number]) : standing orderIndication: History of DVT (deep vein thrombosis) On: 31-May-2018 Request Comments: standing order PT (PROTHROMBIN TIME) ([id number]) : standing orderIndication: History of DVT (deep vein thrombosis) On: 31-May-2018 Request Comments: standing order PT (PROTHROMBIN TIME) ([id number]) : standing orderIndication: History of DVT (deep vein thrombosis) On: 30-May-2018 Request Comments: standing order PT (PROTHROMBIN TIME) ([id number]) : standing orderIndication: History of DVT (deep vein thrombosis) On: 30-May-2018 Request Comments: standing order PT (PROTHROMBIN TIME) ([id number]) : standing orderIndication: History of DVT (deep vein thrombosis) On: 29-May-2018 Request Comments: standing order PT (PROTHROMBIN TIME) ([id number]) : standing orderIndication: History of DVT (deep vein thrombosis) On: 29-May-2018 Request Comments: standing order PT (PROTHROMBIN TIME) ([id number]) : standing orderIndication: History of DVT (deep vein thrombosis) On: 28-May-2018 Request Comments: standing order PT (PROTHROMBIN TIME) ([id number]) : standing orderIndication: History of DVT (deep vein thrombosis) On: 28-May-2018 Request Comments: standing order PT (PROTHROMBIN TIME) ([id number]) : standing orderIndication: History of DVT (deep vein thrombosis) On: 27-May-2018 Request Comments: standing order PT (PROTHROMBIN TIME) ([id number]) : standing orderIndication: History of DVT (deep vein thrombosis) On: 27-May-2018 Request Comments: standing order PT (PROTHROMBIN TIME) ([id number]) : standing orderIndication: History of DVT (deep vein thrombosis) On: 26-May-2018 Request Comments: standing order PT (PROTHROMBIN TIME) ([id number]) : standing orderIndication: History of DVT (deep vein thrombosis) On: 26-May-2018 Request Comments: standing order PT (PROTHROMBIN TIME) ([id number]) : standing orderIndication: History of DVT (deep vein thrombosis) On: 25-May-2018 Request Comments: standing order PT (PROTHROMBIN TIME) ([id number]) : standing orderIndication: History of DVT (deep vein thrombosis) On: 25-May-2018 Request Comments: standing order PT (PROTHROMBIN TIME) ([id number]) : standing orderIndication: History of DVT (deep vein thrombosis) On: 24-May-2018 Request Comments: standing order PT (PROTHROMBIN TIME) ([id number]) : standing orderIndication: History of DVT (deep vein thrombosis) On: 24-May-2018 Request Comments: standing order PT (Prothrobim Time) ([id number])Indication: Anticoagulated on Coumadin On: 23-May-2018 Request PT (PROTHROMBIN TIME) ([id number]) : standing orderIndication: History of DVT (deep vein thrombosis) On: 23-May-2018 Request Comments: standing order PT (PROTHROMBIN TIME) ([id number]) : standing orderIndication: History of DVT (deep vein thrombosis) On: 23-May-2018 Request Comments: standing order PT (PROTHROMBIN TIME) ([id number]) : standing orderIndication: History of DVT (deep vein thrombosis) On: 22-May-2018 Request Comments: standing order PT (PROTHROMBIN TIME) ([id number]) : standing orderIndication: History of DVT (deep vein thrombosis) On: 22-May-2018 Request Comments: standing order PT (PROTHROMBIN TIME) ([id number]) : standing orderIndication: History of DVT (deep vein thrombosis) On: 21-May-2018 Request Comments: standing order PT (PROTHROMBIN TIME) ([id number]) : standing orderIndication: History of DVT (deep vein thrombosis) On: 21-May-2018 Request Comments: standing order PT (PROTHROMBIN TIME) ([id number]) : standing orderIndication: History of DVT (deep vein thrombosis) On: 20-May-2018 Request Comments: standing order PT (PROTHROMBIN TIME) ([id number]) : standing orderIndication: History of DVT (deep vein thrombosis) On: 20-May-2018 Request Comments: standing order PT (PROTHROMBIN TIME) ([id number]) : standing orderIndication: History of DVT (deep vein thrombosis) On: 19-May-2018 Request Comments: standing order PT (PROTHROMBIN TIME) ([id number]) : standing orderIndication: History of DVT (deep vein thrombosis) On: 19-May-2018 Request Comments: standing order PT (PROTHROMBIN TIME) ([id number]) : standing orderIndication: History of DVT (deep vein thrombosis) On: 18-May-2018 Request Comments: standing order PT (PROTHROMBIN TIME) ([id number]) : standing orderIndication: History of DVT (deep vein thrombosis) On: 18-May-2018 Request Comments: standing order PT (PROTHROMBIN TIME) ([id number]) : standing orderIndication: History of DVT (deep vein thrombosis) On: 17-May-2018 Request Comments: standing order PT (PROTHROMBIN TIME) ([id number]) : standing orderIndication: History of DVT (deep vein thrombosis) On: 17-May-2018 Request Comments: standing order PT (Prothrobim Time) ([id number])Indication: Anticoagulated on Coumadin On: 16-May-2018 Request PT (PROTHROMBIN TIME) ([id number]) : standing orderIndication: History of DVT (deep vein thrombosis) On: 16-May-2018 Request Comments: standing order PT (PROTHROMBIN TIME) ([id number]) : standing orderIndication: History of DVT (deep vein thrombosis) On: 16-May-2018 Request Comments: standing order PT (PROTHROMBIN TIME) ([id number]) : standing orderIndication: History of DVT (deep vein thrombosis) On: 15-May-2018 Request Comments: standing order PT (PROTHROMBIN TIME) ([id number]) : standing orderIndication: History of DVT (deep vein thrombosis) On: 15-May-2018 Request Comments: standing order PT (PROTHROMBIN TIME) ([id number]) : standing orderIndication: History of DVT (deep vein thrombosis) On: 14-May-2018 Request Comments: standing order PT (PROTHROMBIN TIME) ([id number]) : standing orderIndication: History of DVT (deep vein thrombosis) On: 14-May-2018 Request Comments: standing order PT (PROTHROMBIN TIME) ([id number]) : standing orderIndication: History of DVT (deep vein thrombosis) On: 13-May-2018 Request Comments: standing order PT (PROTHROMBIN TIME) ([id number]) : standing orderIndication: History of DVT (deep vein thrombosis) On: 13-May-2018 Request Comments: standing order PT (PROTHROMBIN TIME) ([id number]) : standing orderIndication: History of DVT (deep vein thrombosis) On: 12-May-2018 Request Comments: standing order PT (PROTHROMBIN TIME) ([id number]) : standing orderIndication: History of DVT (deep vein thrombosis) On: 12-May-2018 Request Comments: standing order PT (PROTHROMBIN TIME) ([id number]) : standing orderIndication: History of DVT (deep vein thrombosis) On: 11-May-2018 Request Comments: standing order PT (PROTHROMBIN TIME) ([id number]) : standing orderIndication: History of DVT (deep vein thrombosis) On: 11-May-2018 Request Comments: standing order PT (PROTHROMBIN TIME) ([id number]) : standing orderIndication: History of DVT (deep vein thrombosis) On: 10-May-2018 Request Comments: standing order PT (PROTHROMBIN TIME) ([id number]) : standing orderIndication: History of DVT (deep vein thrombosis) On: 10-May-2018 Request Comments: standing order PT (Prothrobim Time) ([id number])Indication: Anticoagulated on Coumadin On: 09-May-2018 Request PT (PROTHROMBIN TIME) ([id number]) : standing orderIndication: History of DVT (deep vein thrombosis) On: 09-May-2018 Request Comments: standing order PT (PROTHROMBIN TIME) ([id number]) : standing orderIndication: History of DVT (deep vein thrombosis) On: 09-May-2018 Request Comments: standing order PT (PROTHROMBIN TIME) ([id number]) : standing orderIndication: History of DVT (deep vein thrombosis) On: 08-May-2018 Request Comments: standing order PT (PROTHROMBIN TIME) ([id number]) : standing orderIndication: History of DVT (deep vein thrombosis) On: 08-May-2018 Request Comments: standing order PT (PROTHROMBIN TIME) ([id number]) : standing orderIndication: History of DVT (deep vein thrombosis) On: 07-May-2018 Request Comments: standing order PT (PROTHROMBIN TIME) ([id number]) : standing orderIndication: History of DVT (deep vein thrombosis) On: 07-May-2018 Request Comments: standing order PT (PROTHROMBIN TIME) ([id number]) : standing orderIndication: History of DVT (deep vein thrombosis) On: 06-May-2018 Request Comments: standing order PT (PROTHROMBIN TIME) ([id number]) : standing orderIndication: History of DVT (deep vein thrombosis) On: 06-May-2018 Request Comments: standing order PT (PROTHROMBIN TIME) ([id number]) : standing orderIndication: History of DVT (deep vein thrombosis) On: 05-May-2018 Request Comments: standing order PT (PROTHROMBIN TIME) ([id number]) : standing orderIndication: History of DVT (deep vein thrombosis) On: 05-May-2018 Request Comments: standing order PT (PROTHROMBIN TIME) ([id number]) : standing orderIndication: History of DVT (deep vein thrombosis) On: 04-May-2018 Request Comments: standing order PT (PROTHROMBIN TIME) ([id number]) : standing orderIndication: History of DVT (deep vein thrombosis) On: 04-May-2018 Request Comments: standing order PT (PROTHROMBIN TIME) ([id number]) : standing orderIndication: History of DVT (deep vein thrombosis) On: 03-May-2018 Request Comments: standing order PT (PROTHROMBIN TIME) ([id number]) : standing orderIndication: History of DVT (deep vein thrombosis) On: 03-May-2018 Request Comments: standing order PT (Prothrobim Time) ([id number])Indication: Anticoagulated on Coumadin On: 02-May-2018 Request PT (PROTHROMBIN TIME) ([id number]) : standing orderIndication: History of DVT (deep vein thrombosis) On: 02-May-2018 Request Comments: standing order PT (PROTHROMBIN TIME) ([id number]) : standing orderIndication: History of DVT (deep vein thrombosis) On: 02-May-2018 Request Comments: standing order PT (PROTHROMBIN TIME) ([id number])Indication: History of DVT (deep vein thrombosis) On: 01-May-2018 Request PT (PROTHROMBIN TIME) ([id number]) : standing orderIndication: History of DVT (deep vein thrombosis) On: 01-May-2018 Request Comments: standing order PT (PROTHROMBIN TIME) ([id number]) : standing orderIndication: History of DVT (deep vein thrombosis) On: 01-May-2018 Request Comments: standing order PT (PROTHROMBIN TIME) ([id number]) : standing orderIndication: History of DVT (deep vein thrombosis) On: 01-May-2018 Request Comments: standing order PT (PROTHROMBIN TIME) ([id number]) : standing orderIndication: History of DVT (deep vein thrombosis) On: 30-Apr-2018 Request Comments: standing order PT (PROTHROMBIN TIME) ([id number]) : standing orderIndication: History of DVT (deep vein thrombosis) On: 30-Apr-2018 Request Comments: standing order PT (PROTHROMBIN TIME) ([id number]) : standing orderIndication: History of DVT (deep vein thrombosis) On: 29-Apr-2018 Request Comments: standing order PT (PROTHROMBIN TIME) ([id number]) : standing orderIndication: History of DVT (deep vein thrombosis) On: 29-Apr-2018 Request Comments: standing order PT (PROTHROMBIN TIME) ([id number]) : standing orderIndication: History of DVT (deep vein thrombosis) On: 28-Apr-2018 Request Comments: standing order PT (PROTHROMBIN TIME) ([id number]) : standing orderIndication: History of DVT (deep vein thrombosis) On: 28-Apr-2018 Request Comments: standing order PT (PROTHROMBIN TIME) ([id number]) : standing orderIndication: History of DVT (deep vein thrombosis) On: 27-Apr-2018 Request Comments: standing order PT (PROTHROMBIN TIME) ([id number]) : standing orderIndication: History of DVT (deep vein thrombosis) On: 27-Apr-2018 Request Comments: standing order PT (PROTHROMBIN TIME) ([id number]) : standing orderIndication: History of DVT (deep vein thrombosis) On: 26-Apr-2018 Request Comments: standing order PT (PROTHROMBIN TIME) ([id number]) : standing orderIndication: History of DVT (deep vein thrombosis) On: 26-Apr-2018 Request Comments: standing order PT (Prothrobim Time) ([id number])Indication: Anticoagulated on Coumadin On: 25-Apr-2018 Request PT (PROTHROMBIN TIME) ([id number]) : standing orderIndication: History of DVT (deep vein thrombosis) On: 25-Apr-2018 Request Comments: standing order PT (PROTHROMBIN TIME) ([id number]) : standing orderIndication: History of DVT (deep vein thrombosis) On: 25-Apr-2018 Request Comments: standing order PT (PROTHROMBIN TIME) ([id number]) : standing orderIndication: History of DVT (deep vein thrombosis) On: 24-Apr-2018 Request Comments: standing order PT (PROTHROMBIN TIME) ([id number]) : standing orderIndication: History of DVT (deep vein thrombosis) On: 24-Apr-2018 Request Comments: standing order PT (PROTHROMBIN TIME) ([id number]) : standing orderIndication: History of DVT (deep vein thrombosis) On: 23-Apr-2018 Request Comments: standing order PT (PROTHROMBIN TIME) ([id number]) : standing orderIndication: History of DVT (deep vein thrombosis) On: 23-Apr-2018 Request Comments: standing order PT (PROTHROMBIN TIME) ([id number]) : standing orderIndication: History of DVT (deep vein thrombosis) On: 22-Apr-2018 Request Comments: standing order PT (PROTHROMBIN TIME) ([id number]) : standing orderIndication: History of DVT (deep vein thrombosis) On: 22-Apr-2018 Request Comments: standing order PT (PROTHROMBIN TIME) ([id number]) : standing orderIndication: History of DVT (deep vein thrombosis) On: 21-Apr-2018 Request Comments: standing order PT (PROTHROMBIN TIME) ([id number]) : standing orderIndication: History of DVT (deep vein thrombosis) On: 21-Apr-2018 Request Comments: standing order PT (PROTHROMBIN TIME) ([id number]) : standing orderIndication: History of DVT (deep vein thrombosis) On: 20-Apr-2018 Request Comments: standing order PT (PROTHROMBIN TIME) ([id number]) : standing orderIndication: History of DVT (deep vein thrombosis) On: 20-Apr-2018 Request Comments: standing order PT (PROTHROMBIN TIME) ([id number]) : standing orderIndication: History of DVT (deep vein thrombosis) On: 19-Apr-2018 Request Comments: standing order PT (PROTHROMBIN TIME) ([id number]) : standing orderIndication: History of DVT (deep vein thrombosis) On: 19-Apr-2018 Request Comments: standing order CBC, Platelets & Auto Diff ([id number])Indication: Leukopenia On: 18-Apr-2018 Request PT (Prothrobim Time) ([id number])Indication: Anticoagulated on Coumadin On: 18-Apr-2018 Request PT (PROTHROMBIN TIME) ([id number]) : standing orderIndication: History of DVT (deep vein thrombosis) On: 18-Apr-2018 Request Comments: standing order PT (PROTHROMBIN TIME) ([id number]) : standing orderIndication: History of DVT (deep vein thrombosis) On: 18-Apr-2018 Request Comments: standing order PT (PROTHROMBIN TIME) ([id number]) : standing orderIndication: History of DVT (deep vein thrombosis) On: 17-Apr-2018 Request Comments: standing order PT (PROTHROMBIN TIME) ([id number]) : standing orderIndication: History of DVT (deep vein thrombosis) On: 17-Apr-2018 Request Comments: standing order PT (PROTHROMBIN TIME) ([id number]) : standing orderIndication: History of DVT (deep vein thrombosis) On: 16-Apr-2018 Request Comments: standing order PT (PROTHROMBIN TIME) ([id number]) : standing orderIndication: History of DVT (deep vein thrombosis) On: 16-Apr-2018 Request Comments: standing order PT (PROTHROMBIN TIME) ([id number]) : standing orderIndication: History of DVT (deep vein thrombosis) On: 15-Apr-2018 Request Comments: standing order PT (PROTHROMBIN TIME) ([id number]) : standing orderIndication: History of DVT (deep vein thrombosis) On: 15-Apr-2018 Request Comments: standing order PT (PROTHROMBIN TIME) ([id number]) : standing orderIndication: History of DVT (deep vein thrombosis) On: 14-Apr-2018 Request Comments: standing order PT (PROTHROMBIN TIME) ([id number]) : standing orderIndication: History of DVT (deep vein thrombosis) On: 14-Apr-2018 Request Comments: standing order PT (PROTHROMBIN TIME) ([id number]) : standing orderIndication: History of DVT (deep vein thrombosis) On: 13-Apr-2018 Request Comments: standing order PT (PROTHROMBIN TIME) ([id number]) : standing orderIndication: History of DVT (deep vein thrombosis) On: 13-Apr-2018 Request Comments: standing order PT (PROTHROMBIN TIME) ([id number]) : standing orderIndication: History of DVT (deep vein thrombosis) On: 12-Apr-2018 Request Comments: standing order PT (PROTHROMBIN TIME) ([id number]) : standing orderIndication: History of DVT (deep vein thrombosis) On: 12-Apr-2018 Request Comments: standing order PT (Prothrobim Time) ([id number])Indication: Anticoagulated on Coumadin On: 11-Apr-2018 Request PT (PROTHROMBIN TIME) ([id number]) : standing orderIndication: History of DVT (deep vein thrombosis) On: 11-Apr-2018 Request Comments: standing order PT (PROTHROMBIN TIME) ([id number]) : standing orderIndication: History of DVT (deep vein thrombosis) On: 11-Apr-2018 Request Comments: standing order PT (PROTHROMBIN TIME) ([id number]) : standing orderIndication: History of DVT (deep vein thrombosis) On: 10-Apr-2018 Request Comments: standing order PT (PROTHROMBIN TIME) ([id number]) : standing orderIndication: History of DVT (deep vein thrombosis) On: 10-Apr-2018 Request Comments: standing order PT (PROTHROMBIN TIME) ([id number]) : standing orderIndication: History of DVT (deep vein thrombosis) On: 09-Apr-2018 Request Comments: standing order PT (PROTHROMBIN TIME) ([id number]) : standing orderIndication: History of DVT (deep vein thrombosis) On: 09-Apr-2018 Request Comments: standing order PT (PROTHROMBIN TIME) ([id number]) : standing orderIndication: History of DVT (deep vein thrombosis) On: 08-Apr-2018 Request Comments: standing order PT (PROTHROMBIN TIME) ([id number]) : standing orderIndication: History of DVT (deep vein thrombosis) On: 08-Apr-2018 Request Comments: standing order PT (PROTHROMBIN TIME) ([id number]) : standing orderIndication: History of DVT (deep vein thrombosis) On: 07-Apr-2018 Request Comments: standing order PT (PROTHROMBIN TIME) ([id number]) : standing orderIndication: History of DVT (deep vein thrombosis) On: 07-Apr-2018 Request Comments: standing order PT (PROTHROMBIN TIME) ([id number]) : standing orderIndication: History of DVT (deep vein thrombosis) On: 06-Apr-2018 Request Comments: standing order PT (PROTHROMBIN TIME) ([id number]) : standing orderIndication: History of DVT (deep vein thrombosis) On: 06-Apr-2018 Request Comments: standing order PT (PROTHROMBIN TIME) ([id number]) : standing orderIndication: History of DVT (deep vein thrombosis) On: 05-Apr-2018 Request Comments: standing order PT (PROTHROMBIN TIME) ([id number]) : standing orderIndication: History of DVT (deep vein thrombosis) On: 05-Apr-2018 Request Comments: standing order PT (Prothrobim Time) ([id number])Indication: Anticoagulated on Coumadin On: 04-Apr-2018 Request PT (PROTHROMBIN TIME) ([id number]) : standing orderIndication: History of DVT (deep vein thrombosis) On: 04-Apr-2018 Request Comments: standing order PT (PROTHROMBIN TIME) ([id number]) : standing orderIndication: History of DVT (deep vein thrombosis) On: 04-Apr-2018 Request Comments: standing order PT (PROTHROMBIN TIME) ([id number]) : standing orderIndication: History of DVT (deep vein thrombosis) On: 03-Apr-2018 Request Comments: standing order PT (PROTHROMBIN TIME) ([id number]) : standing orderIndication: History of DVT (deep vein thrombosis) On: 03-Apr-2018 Request Comments: standing order PT (PROTHROMBIN TIME) ([id number]) : standing orderIndication: History of DVT (deep vein thrombosis) On: 02-Apr-2018 Request Comments: standing order PT (PROTHROMBIN TIME) ([id number]) : standing orderIndication: History of DVT (deep vein thrombosis) On: 02-Apr-2018 Request Comments: standing order PT (PROTHROMBIN TIME) ([id number])Indication: History of DVT (deep vein thrombosis) On: 01-Apr-2018 Request PT (PROTHROMBIN TIME) ([id number]) : standing orderIndication: History of DVT (deep vein thrombosis) On: 01-Apr-2018 Request Comments: standing order PT (PROTHROMBIN TIME) ([id number]) : standing orderIndication: History of DVT (deep vein thrombosis) On: 01-Apr-2018 Request Comments: standing order PT (PROTHROMBIN TIME) ([id number]) : standing orderIndication: History of DVT (deep vein thrombosis) On: 01-Apr-2018 Request Comments: standing order PT (PROTHROMBIN TIME) ([id number]) : standing orderIndication: History of DVT (deep vein thrombosis) On: 31-Mar-2018 Request Comments: standing order PT (PROTHROMBIN TIME) ([id number]) : standing orderIndication: History of DVT (deep vein thrombosis) On: 31-Mar-2018 Request Comments: standing order PT (PROTHROMBIN TIME) ([id number]) : standing orderIndication: History of DVT (deep vein thrombosis) On: 30-Mar-2018 Request Comments: standing order PT (PROTHROMBIN TIME) ([id number]) : standing orderIndication: History of DVT (deep vein thrombosis) On: 30-Mar-2018 Request Comments: standing order PT (PROTHROMBIN TIME) ([id number]) : standing orderIndication: History of DVT (deep vein thrombosis) On: 29-Mar-2018 Request Comments: standing order PT (PROTHROMBIN TIME) ([id number]) : standing orderIndication: History of DVT (deep vein thrombosis) On: 29-Mar-2018 Request Comments: standing order PT (Prothrobim Time) ([id number])Indication: Anticoagulated on Coumadin On: 28-Mar-2018 Request PT (PROTHROMBIN TIME) ([id number]) : standing orderIndication: History of DVT (deep vein thrombosis) On: 28-Mar-2018 Request Comments: standing order PT (PROTHROMBIN TIME) ([id number]) : standing orderIndication: History of DVT (deep vein thrombosis) On: 28-Mar-2018 Request Comments: standing order PT (PROTHROMBIN TIME) ([id number]) : standing orderIndication: History of DVT (deep vein thrombosis) On: 27-Mar-2018 Request Comments: standing order PT (PROTHROMBIN TIME) ([id number]) : standing orderIndication: History of DVT (deep vein thrombosis) On: 27-Mar-2018 Request Comments: standing order PT (PROTHROMBIN TIME) ([id number]) : standing orderIndication: History of DVT (deep vein thrombosis) On: 26-Mar-2018 Request Comments: standing order PT (PROTHROMBIN TIME) ([id number]) : standing orderIndication: History of DVT (deep vein thrombosis) On: 26-Mar-2018 Request Comments: standing order PT (PROTHROMBIN TIME) ([id number]) : standing orderIndication: History of DVT (deep vein thrombosis) On: 25-Mar-2018 Request Comments: standing order PT (PROTHROMBIN TIME) ([id number]) : standing orderIndication: History of DVT (deep vein thrombosis) On: 25-Mar-2018 Request Comments: standing order PT (PROTHROMBIN TIME) ([id number]) : standing orderIndication: History of DVT (deep vein thrombosis) On: 24-Mar-2018 Request Comments: standing order PT (PROTHROMBIN TIME) ([id number]) : standing orderIndication: History of DVT (deep vein thrombosis) On: 24-Mar-2018 Request Comments: standing order PT (PROTHROMBIN TIME) ([id number]) : standing orderIndication: History of DVT (deep vein thrombosis) On: 23-Mar-2018 Request Comments: standing order PT (PROTHROMBIN TIME) ([id number]) : standing orderIndication: History of DVT (deep vein thrombosis) On: 23-Mar-2018 Request Comments: standing order PT (PROTHROMBIN TIME) ([id number]) : standing orderIndication: History of DVT (deep vein thrombosis) On: 22-Mar-2018 Request Comments: standing order PT (PROTHROMBIN TIME) ([id number]) : standing orderIndication: History of DVT (deep vein thrombosis) On: 22-Mar-2018 Request Comments: standing order PT (Prothrobim Time) ([id number])Indication: Anticoagulated on Coumadin On: 21-Mar-2018 Request PT (PROTHROMBIN TIME) ([id number]) : standing orderIndication: History of DVT (deep vein thrombosis) On: 21-Mar-2018 Request Comments: standing order PT (PROTHROMBIN TIME) ([id number]) : standing orderIndication: History of DVT (deep vein thrombosis) On: 21-Mar-2018 Request Comments: standing order PT (PROTHROMBIN TIME) ([id number]) : standing orderIndication: History of DVT (deep vein thrombosis) On: 20-Mar-2018 Request Comments: standing order PT (PROTHROMBIN TIME) ([id number]) : standing orderIndication: History of DVT (deep vein thrombosis) On: 20-Mar-2018 Request Comments: standing order PT (PROTHROMBIN TIME) ([id number]) : standing orderIndication: History of DVT (deep vein thrombosis) On: 19-Mar-2018 Request Comments: standing order PT (PROTHROMBIN TIME) ([id number]) : standing orderIndication: History of DVT (deep vein thrombosis) On: 19-Mar-2018 Request Comments: standing order PT (PROTHROMBIN TIME) ([id number]) : standing orderIndication: History of DVT (deep vein thrombosis) On: 18-Mar-2018 Request Comments: standing order PT (PROTHROMBIN TIME) ([id number]) : standing orderIndication: History of DVT (deep vein thrombosis) On: 18-Mar-2018 Request Comments: standing order PT (PROTHROMBIN TIME) ([id number]) : standing orderIndication: History of DVT (deep vein thrombosis) On: 17-Mar-2018 Request Comments: standing order PT (PROTHROMBIN TIME) ([id number]) : standing orderIndication: History of DVT (deep vein thrombosis) On: 17-Mar-2018 Request Comments: standing order PT (PROTHROMBIN TIME) ([id number]) : standing orderIndication: History of DVT (deep vein thrombosis) On: 16-Mar-2018 Request Comments: standing order PT (PROTHROMBIN TIME) ([id number]) : standing orderIndication: History of DVT (deep vein thrombosis) On: 16-Mar-2018 Request Comments: standing order PT (PROTHROMBIN TIME) ([id number]) : standing orderIndication: History of DVT (deep vein thrombosis) On: 15-Mar-2018 Request Comments: standing order PT (PROTHROMBIN TIME) ([id number]) : standing orderIndication: History of DVT (deep vein thrombosis) On: 15-Mar-2018 Request Comments: standing order PT (Prothrobim Time) ([id number])Indication: Anticoagulated on Coumadin On: 14-Mar-2018 Request PT (PROTHROMBIN TIME) ([id number]) : standing orderIndication: History of DVT (deep vein thrombosis) On: 14-Mar-2018 Request Comments: standing order PT (PROTHROMBIN TIME) ([id number]) : standing orderIndication: History of DVT (deep vein thrombosis) On: 14-Mar-2018 Request Comments: standing order PT (PROTHROMBIN TIME) ([id number]) : standing orderIndication: History of DVT (deep vein thrombosis) On: 13-Mar-2018 Request Comments: standing order PT (PROTHROMBIN TIME) ([id number]) : standing orderIndication: History of DVT (deep vein thrombosis) On: 13-Mar-2018 Request Comments: standing order PT (PROTHROMBIN TIME) ([id number]) : standing orderIndication: History of DVT (deep vein thrombosis) On: 12-Mar-2018 Request Comments: standing order PT (PROTHROMBIN TIME) ([id number]) : standing orderIndication: History of DVT (deep vein thrombosis) On: 12-Mar-2018 Request Comments: standing order PT (PROTHROMBIN TIME) ([id number]) : standing orderIndication: History of DVT (deep vein thrombosis) On: 11-Mar-2018 Request Comments: standing order PT (PROTHROMBIN TIME) ([id number]) : standing orderIndication: History of DVT (deep vein thrombosis) On: 11-Mar-2018 Request Comments: standing order PT (PROTHROMBIN TIME) ([id number]) : standing orderIndication: History of DVT (deep vein thrombosis) On: 10-Mar-2018 Request Comments: standing order PT (PROTHROMBIN TIME) ([id number]) : standing orderIndication: History of DVT (deep vein thrombosis) On: 10-Mar-2018 Request Comments: standing order PT (PROTHROMBIN TIME) ([id number]) : standing orderIndication: History of DVT (deep vein thrombosis) On: 09-Mar-2018 Request Comments: standing order PT (PROTHROMBIN TIME) ([id number]) : standing orderIndication: History of DVT (deep vein thrombosis) On: 09-Mar-2018 Request Comments: standing order PT (PROTHROMBIN TIME) ([id number]) : standing orderIndication: History of DVT (deep vein thrombosis) On: 08-Mar-2018 Request Comments: standing order PT (PROTHROMBIN TIME) ([id number]) : standing orderIndication: History of DVT (deep vein thrombosis) On: 08-Mar-2018 Request Comments: standing order PT (Prothrobim Time) ([id number])Indication: Anticoagulated on Coumadin On: 07-Mar-2018 Request PT (PROTHROMBIN TIME) ([id number]) : standing orderIndication: History of DVT (deep vein thrombosis) On: 07-Mar-2018 Request Comments: standing order PT (PROTHROMBIN TIME) ([id number]) : standing orderIndication: History of DVT (deep vein thrombosis) On: 07-Mar-2018 Request Comments: standing order PT (PROTHROMBIN TIME) ([id number]) : standing orderIndication: History of DVT (deep vein thrombosis) On: 06-Mar-2018 Request Comments: standing order PT (PROTHROMBIN TIME) ([id number]) : standing orderIndication: History of DVT (deep vein thrombosis) On: 06-Mar-2018 Request Comments: standing order PT (PROTHROMBIN TIME) ([id number]) : standing orderIndication: History of DVT (deep vein thrombosis) On: 05-Mar-2018 Request Comments: standing order PT (PROTHROMBIN TIME) ([id number]) : standing orderIndication: History of DVT (deep vein thrombosis) On: 05-Mar-2018 Request Comments: standing order PT (PROTHROMBIN TIME) ([id number]) : standing orderIndication: History of DVT (deep vein thrombosis) On: 04-Mar-2018 Request Comments: standing order PT (PROTHROMBIN TIME) ([id number]) : standing orderIndication: History of DVT (deep vein thrombosis) On: 04-Mar-2018 Request Comments: standing order PT (PROTHROMBIN TIME) ([id number]) : standing orderIndication: History of DVT (deep vein thrombosis) On: 03-Mar-2018 Request Comments: standing order PT (PROTHROMBIN TIME) ([id number]) : standing orderIndication: History of DVT (deep vein thrombosis) On: 03-Mar-2018 Request Comments: standing order PT (PROTHROMBIN TIME) ([id number])Indication: History of DVT (deep vein thrombosis) On: 11-Hqc-230701:54 Request PT (PROTHROMBIN TIME) ([id number]) : standing orderIndication: History of DVT (deep vein thrombosis) On: 45-Fvu-102060:48 Request Comments: standing order PT (Prothrobim Time) ([id number])Indication: Anticoagulated on Coumadin On: 28-Feb-2018 Request PT (Prothrobim Time) ([id number])Indication: Anticoagulated on Coumadin On: 21-Feb-2018 Request PT (Prothrobim Time) ([id number])Indication: Anticoagulated on Coumadin On: 14-Feb-2018 Request YURIY (ANTINUCLEAR ANTIBODY) ([id number])Indication: Leukopenia On: 6-Gfk-320543:30 Request Comments: give lab slips UPEP ([id number])Indication: Leukopenia On: 4-Xom-339395:30 Request Comments: give lab slips SPEP ([id number])Indication: Leukopenia On: 4-Fue-976113:29 Request Comments: give lab slips PT (Prothrobim Time) ([id number])Indication: Anticoagulated on Coumadin On: 07-Feb-2018 Request PT (Prothrobim Time) ([id number])Indication: Anticoagulated on Coumadin On: 31-Jan-2018 Request PT (Prothrobim Time) ([id number])Indication: Anticoagulated on Coumadin On: 24-Jan-2018 Request PT (Prothrobim Time) ([id number])Indication: Anticoagulated on Coumadin On: 17-Jan-2018 Request PT (Prothrobim Time) ([id number])Indication: Anticoagulated on Coumadin On: 10-Jan-2018 Request PT (Prothrobim Time) ([id number])Indication: Anticoagulated on Coumadin On: 03-Jan-2018 Request PT (Prothrobim Time) ([id number])Indication: Anticoagulated on Coumadin On: 27-Dec-2017 Request PT (Prothrobim Time) ([id number])Indication: Anticoagulated on Coumadin On: 20-Dec-2017 Request BILIRUBIN, TOTAL ([id number])Indication: Encounter for screening for lipid disorder On: 32-Kdh-640009:28 Request BILIRUBIN, DIRECT ([id number])Indication: Encounter for screening for lipid disorder On: 87-Ptk-246252:28 Request CBC, PLATELETS & AUT DIFF ([id number])Indication: Encounter for screening for lipid disorder On: 01-Kus-083116:47 Request Metabolic Panel, Comprehensive ([id number])Indication: Encounter for screening for lipid disorder On: 35-Egw-32663:10 Request CBC & PLATELETS (AUTO) ([id number])Indication: Encounter for screening for lipid disorder On: 47-Mlt-50603:10 Request LIPID PANEL ([id number])Indication: Encounter for screening for lipid disorder On: 33-Ulm-56932:09 Request PT (Prothrobim Time) ([id number])Indication: Anticoagulated on Coumadin On: 13-Dec-2017 Request PT (Prothrobim Time) ([id number])Indication: Anticoagulated on Coumadin On: 06-Dec-2017 Request PT (Prothrobim Time) ([id number])Indication: Anticoagulated on Coumadin On: 29-Nov-2017 Request PT (Prothrobim Time) ([id number])Indication: Anticoagulated on Coumadin On: 22-Nov-2017 Request PT (Prothrobim Time) ([id number])Indication: Anticoagulated on Coumadin On: 15-Nov-2017 Request PT (Prothrobim Time) ([id number])Indication: Anticoagulated on Coumadin On: 08-Nov-2017 Request PT (Prothrobim Time) ([id number])Indication: Anticoagulated on Coumadin On: 01-Nov-2017 Request PT (Prothrobim Time) ([id number])Indication: Anticoagulated on Coumadin On: 25-Oct-2017 Request PT (Prothrobim Time) ([id number])Indication: Anticoagulated on Coumadin On: 18-Oct-2017 Request PT (Prothrobim Time) ([id number])Indication: Anticoagulated on Coumadin On: 11-Oct-2017 Request PT (Prothrobim Time) ([id number])Indication: Anticoagulated on Coumadin On: 04-Oct-2017 Request PT (Prothrobim Time) ([id number])Indication: Anticoagulated on Coumadin On: 27-Sep-2017 Request PT (Prothrobim Time) ([id number])Indication: Anticoagulated on Coumadin On: 20-Sep-2017 Request PT (Prothrobim Time) ([id number])Indication: Anticoagulated on Coumadin On: 13-Sep-2017 Request PT (Prothrobim Time) ([id number])Indication: Anticoagulated on Coumadin On: 06-Sep-2017 Request PT (Prothrobim Time) ([id number])Indication: Anticoagulated on Coumadin On: 30-Aug-2017 Request PT (Prothrobim Time) ([id number])Indication: Anticoagulated on Coumadin On: 23-Aug-2017 Request PT (Prothrobim Time) ([id number])Indication: Anticoagulated on Coumadin On: 16-Aug-2017 Request PT (Prothrobim Time) ([id number])Indication: Anticoagulated on Coumadin On: 09-Aug-2017 Request PT (Prothrobim Time) ([id number])Indication: Anticoagulated on Coumadin On: 02-Aug-2017 Request PT (Prothrobim Time) ([id number])Indication: Anticoagulated on Coumadin On: 26-Jul-2017 Request PT (Prothrobim Time) ([id number])Indication: Anticoagulated on Coumadin On: 19-Jul-2017 Request PT (Prothrobim Time) ([id number])Indication: Anticoagulated on Coumadin On: 12-Jul-2017 Request PT (Prothrobim Time) ([id number])Indication: Anticoagulated on Coumadin On: 05-Jul-2017 Request PT (Prothrobim Time) ([id number])Indication: Anticoagulated on Coumadin On: 28-Jun-2017 Request PT (Prothrobim Time) ([id number])Indication: Anticoagulated on Coumadin On: 21-Jun-2017 Request PT (Prothrobim Time) ([id number])Indication: Anticoagulated on Coumadin On: 14-Jun-2017 Request PT (Prothrobim Time) ([id number])Indication: Anticoagulated on Coumadin On: 07-Jun-2017 Request PT (Prothrobim Time) ([id number])Indication: Anticoagulated on Coumadin On: 31-May-2017 Request PT (Prothrobim Time) ([id number])Indication: Anticoagulated on Coumadin On: 25-May-2017 Request PT (Prothrobim Time) ([id number])Indication: Anticoagulated on Coumadin On: 25-May-2017 Request PT (Prothrobim Time) ([id number])Indication: Anticoagulated on Coumadin On: 24-May-2017 Request PT (Prothrobim Time) ([id number])Indication: Anticoagulated on Coumadin On: 17-May-2017 Request PT (Prothrobim Time) ([id number])Indication: Anticoagulated on Coumadin On: 10-May-2017 Request PT (Prothrobim Time) ([id number])Indication: Anticoagulated on Coumadin On: 03-May-2017 Request PT (Prothrobim Time) ([id number])Indication: Anticoagulated on Coumadin On: 26-Apr-2017 Request PT (Prothrobim Time) ([id number])Indication: Anticoagulated on Coumadin On: 25-Apr-2017 Request PT (Prothrobim Time) ([id number])Indication: Anticoagulated on Coumadin On: 25-Apr-2017 Request PT (Prothrobim Time) ([id number])Indication: Anticoagulated on Coumadin On: 19-Apr-2017 Request PT (Prothrobim Time) ([id number])Indication: Anticoagulated on Coumadin On: 12-Apr-2017 Request PT (Prothrobim Time) ([id number])Indication: Anticoagulated on Coumadin On: 05-Apr-2017 Request PT (Prothrobim Time) ([id number])Indication: Anticoagulated on Coumadin On: 29-Mar-2017 Request PT (Prothrobim Time) ([id number])Indication: Anticoagulated on Coumadin On: 26-Mar-2017 Request PT (Prothrobim Time) ([id number])Indication: Anticoagulated on Coumadin On: 26-Mar-2017 Request PT (Prothrobim Time) ([id number])Indication: Anticoagulated on Coumadin On: 22-Mar-2017 Request PT (Prothrobim Time) ([id number])Indication: Anticoagulated on Coumadin On: 15-Mar-2017 Request PT (Prothrobim Time) ([id number])Indication: Anticoagulated on Coumadin On: 08-Mar-2017 Request PT (Prothrobim Time) ([id number])Indication: long-term (current) use of anticoagulants (Renamed from long-term current use of anticoagulant therapy) On: 27-Czk-395258:48 Request Comments: Standing order PT (Prothrobim Time) ([id number])Indication: Anticoagulated on Coumadin On: 01-Mar-2017 Request PT (Prothrobim Time) ([id number])Indication: Anticoagulated on Coumadin On: 24-Feb-2017 Request PT (Prothrobim Time) ([id number])Indication: Anticoagulated on Coumadin On: 24-Feb-2017 Request PT (Prothrobim Time) ([id number])Indication: Anticoagulated on Coumadin On: 22-Feb-2017 Request PT (Prothrobim Time) ([id number])Indication: Anticoagulated on Coumadin On: 15-Feb-2017 Request PT (Prothrobim Time) ([id number])Indication: Anticoagulated on Coumadin On: 08-Feb-2017 Request PT (Prothrobim Time) ([id number])Indication: Anticoagulated on Coumadin On: 01-Feb-2017 Request PT (Prothrobim Time) ([id number])Indication: Anticoagulated on Coumadin On: 25-Jan-2017 Request PT (Prothrobim Time) ([id number])Indication: Anticoagulated on Coumadin On: 25-Jan-2017 Request PT (Prothrobim Time) ([id number])Indication: Anticoagulated on Coumadin On: 25-Jan-2017 Request PT (Prothrobim Time) ([id number])Indication: Anticoagulated on Coumadin On: 18-Jan-2017 Request PT (Prothrobim Time) ([id number])Indication: Anticoagulated on Coumadin On: 11-Jan-2017 Request PT (Prothrobim Time) ([id number])Indication: Anticoagulated on Coumadin On: 04-Jan-2017 Request PT (Prothrobim Time) ([id number])Indication: Anticoagulated on Coumadin On: 28-Dec-2016 Request PT (Prothrobim Time) ([id number])Indication: Anticoagulated on Coumadin On: 26-Dec-2016 Request PT (Prothrobim Time) ([id number])Indication: Anticoagulated on Coumadin On: 26-Dec-2016 Request PT (Prothrobim Time) ([id number])Indication: Anticoagulated on Coumadin On: 21-Dec-2016 Request PT (Prothrobim Time) ([id number])Indication: Anticoagulated on Coumadin On: 14-Dec-2016 Request PT (Prothrobim Time) ([id number])Indication: Anticoagulated on Coumadin On: 07-Dec-2016 Request PT (Prothrobim Time) ([id number])Indication: Anticoagulated on Coumadin On: 30-Nov-2016 Request PT (Prothrobim Time) ([id number])Indication: Anticoagulated on Coumadin On: 26-Nov-2016 Request PT (Prothrobim Time) ([id number])Indication: Anticoagulated on Coumadin On: 26-Nov-2016 Request PT (Prothrobim Time) ([id number])Indication: Anticoagulated on Coumadin On: 23-Nov-2016 Request PT (Prothrobim Time) ([id number])Indication: Anticoagulated on Coumadin On: 16-Nov-2016 Request PT (Prothrobim Time) ([id number])Indication: Anticoagulated on Coumadin On: 09-Nov-2016 Request PT (Prothrobim Time) ([id number])Indication: Anticoagulated on Coumadin On: 02-Nov-2016 Request PT (Prothrobim Time) ([id number])Indication: Anticoagulated on Coumadin On: 27-Oct-2016 Request PT (Prothrobim Time) ([id number])Indication: Anticoagulated on Coumadin On: 27-Oct-2016 Request PT (Prothrobim Time) ([id number])Indication: Anticoagulated on Coumadin On: 26-Oct-2016 Request PT (Prothrobim Time) ([id number])Indication: Anticoagulated on Coumadin On: 19-Oct-2016 Request PT (Prothrobim Time) ([id number])Indication: Anticoagulated on Coumadin On: 12-Oct-2016 Request PT (Prothrobim Time) ([id number])Indication: Anticoagulated on Coumadin On: 05-Oct-2016 Request PT (Prothrobim Time) ([id number])Indication: Anticoagulated on Coumadin On: 28-Sep-2016 Request PT (Prothrobim Time) ([id number])Indication: Anticoagulated on Coumadin On: 27-Sep-2016 Request PT (Prothrobim Time) ([id number])Indication: Anticoagulated on Coumadin On: 27-Sep-2016 Request PT (Prothrobim Time) ([id number])Indication: Anticoagulated on Coumadin On: 21-Sep-2016 Request PT (Prothrobim Time) ([id number])Indication: Anticoagulated on Coumadin On: 14-Sep-2016 Request PT (Prothrobim Time) ([id number])Indication: Anticoagulated on Coumadin On: 07-Sep-2016 Request PT (Prothrobim Time) ([id number])Indication: Anticoagulated on Coumadin On: 31-Aug-2016 Request PT (Prothrobim Time) ([id number])Indication: Anticoagulated on Coumadin On: 28-Aug-2016 Request PT (Prothrobim Time) ([id number])Indication: Anticoagulated on Coumadin On: 28-Aug-2016 Request PT (Prothrobim Time) ([id number])Indication: Anticoagulated on Coumadin On: 24-Aug-2016 Request PT (Prothrobim Time) ([id number])Indication: Anticoagulated on Coumadin On: 17-Aug-2016 Request PT (Prothrobim Time) ([id number])Indication: Anticoagulated on Coumadin On: 10-Aug-2016 Request PT (Prothrobim Time) ([id number])Indication: Anticoagulated on Coumadin On: 03-Aug-2016 Request PT (Prothrobim Time) ([id number])Indication: Anticoagulated on Coumadin On: 29-Jul-2016 Request PT (Prothrobim Time) ([id number])Indication: Anticoagulated on Coumadin On: 29-Jul-2016 Request PT (Prothrobim Time) ([id number])Indication: Anticoagulated on Coumadin On: 27-Jul-2016 Request PT (Prothrobim Time) ([id number])Indication: Anticoagulated on Coumadin On: 20-Jul-2016 Request PT (Prothrobim Time) ([id number])Indication: Anticoagulated on Coumadin On: 13-Jul-2016 Request PT (Prothrobim Time) ([id number])Indication: Anticoagulated on Coumadin On: 06-Jul-2016 Request Metabolic Panel, Comprehensive ([id number])Indication: Irritable Bowel Syndrome On: 27-Nfo-121876:28 Request TSH ([id number])Indication: Irritable Bowel Syndrome On: 89-Iem-067450:28 Request CBC, Platelets & Auto Diff ([id number])Indication: Irritable Bowel Syndrome On: 32-Dbw-195997:28 Request PT (Prothrobim Time) ([id number])Indication: Anticoagulated on Coumadin On: 95-Jsz-883791:24 Request PT (Prothrobim Time) ([id number])Indication: DVT (deep venous thrombosis) On: 17-Hrp-852231:11 Request Comments: INR - STANDING ORDER Vitamin D Hydroxy ([id number])Indication: Osteoporosis On: 48-Ynp-669568:16 Request TSH ([id number])Indication: Osteoporosis On: 19-Qof-463531:16 Request CBC with auto diff ([id number])Indication: Benign Essential Hypertension On: 36-Gkj-064850:16 Request METABOLIC PANEL, COMPREHENSIVE ([id number])Indication: Benign Essential Hypertension On: 02-Pmi-848164:16 Request LIPID PANEL ([id number])Indication: Hyperlipidemia On: 70-Vnj-184953:16 Request CBC W/AUTO DIFF WBC ([id number])Indication: Benign Essential Hypertension On: 9-Rkp-389401:34 Request METABOLIC PANEL, COMPREHENSIVE ([id number])Indication: Benign Essential Hypertension On: 7-Jxh-771531:34 Request TSH ([id number])Indication: Osteoporosis On: 83-Trz-32778:39 Request CBC W/AUTO DIFF WBC ([id number])Indication: Osteoporosis On: 59-Bnv-20537:39 Request LIPID PANEL ([id number])Indication: Hyperlipidemia On: :38 Request METABOLIC PANEL, COMPREHENSIVE ([id number])Indication: Benign Essential Hypertension On: 90-Fgt-14444:38 Request PT (Prothrobim Time) ([id number])Indication: DVT (deep venous thrombosis) On: 4-Dog-798751:18 Request Comments: FINGER STICKSTANDING ORDER PT (Prothrobim Time) ([id number])Indication: DVT (deep venous thrombosis) On: 10-Kym-524639:28 Request Comments: Standing Order URINALYSIS, W/ MICRO ([id number])Indication: Benign Essential Hypertension On: :37 Request METABOLIC PANEL, COMPREHENSIVE ([id number])Indication: Benign Essential Hypertension On: :37 Request LIPID PANEL ([id number])Indication: Hyperlipidemia On: :37 Request CBC W/AUTO DIFF WBC ([id number])Indication: DVT (deep venous thrombosis) On: :37 Request PT (Prothrobim Time) ([id number])Indication: DVT (deep venous thrombosis) On: 04-Fuw-455063:02 Request CBC WITH MANUAL DIFF ([id number])Indication: Benign Essential Hypertension On: :39 Request METABOLIC PANEL, COMPREHENSIVE ([id number])Indication: Hyperlipidemia On: :39 Request LIPID PANEL ([id number])Indication: Hyperlipidemia On: :39 Request PT (Prothrobim Time) ([id number])Indication: DVT (deep venous thrombosis) On: 32-Zmb-78135:07 Request Comments: pls call chief librarian circulation department Dr Hunter with results on 05/20/13 PT (Prothrobim Time) ([id number])Indication: DVT (deep venous thrombosis) On: 31-Qyx-786603:00 Request Comments: Standing Order PT (Prothrobim Time) ([id number])Indication: DVT (deep venous thrombosis) On: 06-Duk-32337:59 Request Comments: INR - STANDING ORDER x 1 year URINALYSIS, W/ MICRO ([id number])Indication: Benign Essential Hypertension On: :15 Request CBC WITH MANUAL DIFF ([id number])Indication: Benign Essential Hypertension On: :15 Request METABOLIC PANEL, COMPREHENSIVE ([id number])Indication: Benign Essential Hypertension On: 5-Nov-81067:14 Request LIPID PANEL ([id number])Indication: Hyperlipidemia On: 07-Feb-20139:14 Request METABOLIC PANEL, COMPREHENSIVE ([id number])Indication: Benign Essential Hypertension On: :06 Request LIPID PANEL ([id number])Indication: Hyperlipidemia On: 16-Dul-59792:06 Request URINE HANNAH CULTURE-IDENTIFICATN ([id number])Indication: Urinary frequency On: :56 Request URINE HANNAH CULTURE-IDENTIFICATN ([id number])Indication: Insect bite On: 09-Buc-170111:19 Request Lyme Disease,Serum, Western Blot ([id number])Indication: Insect bite On: 31-Idg-625348:19 Request PT (Prothrobim Time) ([id number])Indication: DVT (deep venous thrombosis) On: 32-Hna-475073:59 Request Comments: standing order LIPID PANEL ([id number])Indication: FAMILY HISTORY OF ISCHEMIC HEART DISEASE On: 26-Orv-192564:28 Request LIPID PANEL ([id number])Indication: FAMILY HISTORY OF ISCHEMIC HEART DISEASE On: 5-Vuf-952490:51 Request Vitamin D Hydroxy ([id number])Indication: Osteoporosis On: 9-Dmw-035719:18 Request TSH ([id number])Indication: Osteoporosis On: 8-Mrj-489319:18 Request URINALYSIS, W/ MICRO ([id number])Indication: Osteoporosis On: 1-Mrm-669663:18 Request CBC WITH MANUAL DIFF ([id number])Indication: Osteoporosis On: 5-Wxn-082307:18 Request METABOLIC PANEL, COMPREHENSIVE ([id number])Indication: Osteoporosis On: 2-Wva-578892:18 Request PTT (Activated Partial Thromboplastin Time) ([id number])Indication: DVT (deep venous thrombosis) On: 9-Ocs-207298:16 Request PT (Prothrobim Time) ([id number])Indication: DVT (deep venous thrombosis) On: 8-Aop-237542:16 Request Planned Encounters Medical; 3 Month FU - On: 17-May-2018 8:30 [facility] Selam Blair CNP, CNP, Selam Latif Planned Procedures DOPPLER ULTRASOUND OF LEFT LOWER On: 14-Feb-2018 Intent EXTREMITY FOR VENOUS THROMBOEMBOLISM Comments: STAT R/O DVT-Hx of DVT ([id number])By: Sigrid Mobley DEXA SCAN AXIAL SKELETON ([id number])By: On: 17-Dec-2017 Intent Selam Blair CNP, CNP, Selam Latif Aerosol Treatment ([id number])By: Johnnie On: 02-Jun-2017 Intent Selam DAVIES CNP, Selam Latif Ultrasound - LiverBy: Selam Blair CNP On: 15-Dec-2016 Intent E Selam Blair CNP Aerosol Treatment ([id number])By: Johnnie On: 13-Oct-2016 Intent Selam DAVIES CNP, Mary E Aerosol Treatment ([id number])By: Aleksey On: 19-Feb-2015 Intent Eliana HOFFMANN Ultrasound - AortaBy: Helen Barnes DO On: 18-Dec-2014 Intent EKG ([id number])By: Helen Barnes DO On: 05-Nov-2014 Intent Comments: ekg showed normal sinus rhythym, normal axis, no acute st/t wave changes BILATERAL MAMMOGRAMS ([id number])By: Timothy On: 17-Sep-2014 Intent Helen B[place] Radiology - Shoulder - LeftBy: Amparoi On: 05-Mar-2014 Intent Fatimah RANDLE Comments: if not better with PT MAMMOGRAM, SCREENING, BOTH BREASTS On: 08-Aug-2013 Intent ([id number])By: Helen Barnes DO Eprescribed prescriptions ([id number])By: On: 08-Aug-2013 Intent Helen Barnes DO DXA, BONE DENSITY, AXIAL SKELETON On: 21-Oct-2012 Intent ([id number])By: Helen Barnes DO Comments: - mar Eprescribed prescriptions ([id number])By: On: 21-Oct-2012 Intent So Bailey Breast Screening - BilateralBy: Timothy On: 19-Sep-2012 Intent Helen [place] Eprescribed prescriptions ([id number])By: On: 30-Aug-2012 Intent So Bailey Spirometry ([id number])By: Helen Barnes DO On: 11-Mar-2012 Intent A Comments: good effort and curve mild obst- Doppler Ultrasound OtherBy: Timothy [place], On: 11-Mar-2012 Intent Helen Coley Comments: both legs- stat call results Eprescribed prescriptions ([id number])By: On: 11-Mar-2012 Intent So Bailey TD Injection , IM ([id number])By: Leo, On: 11-Mar-2012 Intent So Comments: 2003 FLU VAC, SPLIT, >3 YEARS, INTRAMUSC On: 11-Mar-2012 Intent ([id number])By: So Bailey Comments: got at [facility] Instructions Name Dates Details BMI 22.0-22.9, adult [...] Coumadin : DISCONTINUED - PT (PROTHROMBIN TIME) ([id number]) Indication: Anticoagulated on Coumadin Irritable Bowel Syndrome [...] Patient Instructions Indication: Osteoporosis Encounters Annotation/Addendum On: 02-Mar-2018 15:43 [facility] [...] 3.3 this was repeat. 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 The patient has noticed nothing from the geriatic depression scale. Other providers contributing to the patient's care are [facility] (dr. meseret santana) and other: (eye- dr. [...] Medicine Annotation/Addendum On: 01-Mar-2017 12:47 Encounter Diagnosis: long-term (current) use of anticoagulants (Renamed from long-term current use of anticoagulant therapy) End: 01-Mar-2017 [...] patient does not have durable power of roller stainer or living will . The patient has noticed nothing from the geriatic depression scale. Other providers contributing to the patient's care are other: (dr crawford for eyes). 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.Refuses flu shotRefuses pnumonia or LymeEncounter Diagnosis: Nonsmoker, BMI 21.0-21.9, adult, Encounter for annual general medical examination with abnormal findings in adult, long-term (current) use of anticoagulants (Renamed from long-term current use of anticoagulant therapy), Liver cyst [facility] Phone Encounter On: 09-Nov-2016 16:54 [facility] End: 09-Nov-2016 16:55 Phone Encounter On: 15-Oct-2016 12:40 Encounter Diagnosis: [place] [facility] End: 15-Oct-2016 12:42 [facility] [...] patient does not have durable power of roller stainer. The p atient has noticed nothing from the geriatic depression scale. Other providers contributing to the patient's care are other: (ENT and dr crawford for eyes). 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
--- OUTSIDE RECORDS SUMMARY | 2018-06-24 14:26 | XMS RPT_ITS | Continuity of Care Document ---
:1950 Author Organization [facility] Address [address] [facility] [address] [place] [address] Phone Care Team Providers Name Role Phone [...] in [address] Status: Active longterm (current) use of anticoagulants (Renamed from longterm current use of anticoagulant therapy) (Z79.01, V58.61) [...] Latif Start : 13-Sep-2017 Active Calcium 1200 4325-5849 MG-UNIT Oral Tablet Chewable daily (2580-6691 MG-UNIT) Active Cinnamon 500 MG Oral Capsule [...] Quantity: 30 {Tablet} Refills: 1 Ordered:17-Dec-2017 Johnnie CREDIT PRODUCT ANALYST, Selam Taveras CREDIT PRODUCT ANALYST, Selam Latif Start : 17-Dec-2017 Active Latanoprost [...] 500MG (Oral Tablet) 1 (one) Tablet bid u10idsz for 10 days Quantity: 20 {Tablet} Refills: [...] Refills: 0 Ordered:02-Jun-2017 Johnnie DAVIES, Selam Taveras CREDIT PRODUCT ANALYST, Selam Latif Start : 02-Jun-2017 End : [...] (M85.80, 733.90) Status: Inactive as of 11-Mar-2012 Grandin eye (H10.029, 372.03) Status: Inactive as of [...] Status: Resolved as of 21-Oct-2012 Vaccine for wgfvtqbdne-ptgclnx-lgcblnztz with poliomyelitis (Z23, V06.3) Status: Inactive as of 21-Oct-2012 Procedures Procedure Dates Details Appendectomy Completed D&C Completed Comments: the medical center Tonsillectomy Completed Tubal Ligation Completed Date Value Details 16-Feb-2018 Venous Duplex Lower Extremity Result: Comments: See Note; NOTES: [facility] Cardiovascular Services [address] [place] [address] Venous Duplex US, Unilateral 02/15/18 1350 MR#: [id number] Acct: [id number] Name: YAHAIRA ENG Rep #: [id number] : 1950 67 From: Tony Valentino MD [...] Tony Valentino MD CC: Selam Blair NP; MASTER TECHNICIAN-C Annie Mobley Date Dictated: 02/15/18 1350 Date Transcribed: 02/16/18812 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 Park Ride Mechanic: Signed 23-Dec-2017 Dexa Bone Density Study Result: Comments: See Note; NOTES: [facility] Imaging Services [address] [place] [address] Dexa Bone Density Study MR#: [id number] Acct: [id number] Name: YAHAIRA BRYANT Rep #: [id number] : 1950 F 67 From: Cole Coronado MD PCP: Selam Blair NP Status: REG CLI Study: Dexa Bone Density Study Date of Exam: 12/23/17 Exam# [id number] Ordering Dr: Selam Blair STUDY: DUAL ENERGY [...] Cole Coronado MD at 8:50 EDT Tel [phone], Service support , CC: Selam Blair NP Amusement Park Ride Mechanic: Signed 07-Oct-2017 SCREENING MAMM (CAD), BILAT Result: Comments: See Note; NOTES: [facility] Imaging Services [address] [place] [address] SCREENING MAMM (CAD), BILAT MR#: [id number] Acct: [id number] Name: YAHAIRA BRYANT Rep #: [id number] : 1950 F 67 From: Cole Coronado MD PCP: Selam Blair NP Status: REG CLI Study: SCREENING MAMM (CAD), BILAT Date of Exam: 10/07/17 Exam# [id number] Ordering Dr: Aliza Santana MD MAMMOGRAPHY - [...] delay biopsy of a clinically suspicious abnormality. [id number] Electronically Signed: Cole Coronado MD at 11:23 EDT Tel [phone], Service support , CC: Selam Blair NP; Aliza Santana MD Amusement Park Ride Mechanic: Signed 23-Sep-2017 Downtime Report Result: Comments: See Note; NOTES: [facility] Medical Records Department [address] [place] [address] Downtime Report MR#: [id number] Acct: [id number] Name: YAHAIRA BRYANT R Rep #: [id number] : 1950 67 From: Jered Kumar PCP: Sleam Blair NP Status: REG CLI This patient was seen during an EMR downtime September 06, 2017 - September 13, 2017. This patient may have a combination of p aper and electronic documentation or all paper documentation. All documentation is viewable within the e-chart portion of [facility] for each patient visit. 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 Park Ride Mechanic: Signed 21-Dec-2014 Aorta Result: Comments: See Note; NOTES: [facility] Imaging Services [address] [place] [address] Ultrasound Report MR#: [id number] Acct: [id number] Name: YAHAIRA BRYANT Rep #: [id number] : 1950 F 64 From: Cole Coronado MD PCP: Helen Barnes DO Status: REG CLI Study: Aorta Date of Exam: 12/21/14 Exam# [id number] Ordering Dr: Helen Barnes DO PROCEDURES: ULTRASOUN [...] Cole Coronado MD at 9:45 EDT Tel [phone], Service support [phone], CC: Helen Barnes DO Amusement Park Ride Mechanic: Signed 12-Dec-2014 Bilat Scrn Digital AND CAD Result: Comments: See Note; NOTES: [facility] Imaging Services [address] [place] [address] Breast Imaging Report MR#: [id number] Acct: [id number] Name: YAHAIRA BRYANT Rep # : [id number] : 1950 F 64 From: Gabino South MD PCP: Helen Barnes DO Status: REG CLI Study: Bilat Scrn Digital AND CAD Date of Exam: 12/12/14 Exam# [id number] Ordering Dr: Helen Barnes DO M AMMOGRAPHY [...] at 14:51 EDT Tel , Service support [phone], CC: Helen Barnes DO Amusement Park Ride Mechanic: Signed 12-Dec-2014 Bilat Scrn Digital AND CAD Result: Comments: See Note; NOTES: [facility] Imaging Services [address] [place] [address] Breast Imaging Report MR#: [id number] Acct: [id number] Name: YAHAIRA BRYANT Rep # : [id number] : 1950 F 64 From: Gabino South MD PCP: Helen Barnes DO Status: REG CLI Study: Bilat Scrn Digital AND CAD Date of Exam: 12/12/14 Exam# [id number] Ordering Dr: Helen Barnes DO A DDENDUM by Cloe Coronado MD on 12/17/14 at 1003 ADDENDUM This is an addendum report for BI -RADS category. BI-RADS category 2. Electronically Signed: Cole Coronado MD at 10:03 EDT Tel [phone], Service support [phone], 12/17/14 1003 D ate cc: Helen Barnes [...] of a clinically suspicious abnormality. Electronically Signed: Amaodu graham MD at 14:51 EDT Tel , Service support [phone], CC: Helen Barnes DO Amusement Park Ride Mechanic: Signed 03-Dec-2014 Operative Report Result: Comments: See Note; NOTES: [facility] Medical Records Department [address] [place] [address] Operative Report MR#: [id number] Acct: [id number] Name: YAHAIRA BRYANT Rep #: [id number] : 1950 64 From: Aliza Santana MD PCP: Helen Barnes DO Status: [facility] DATE OF SERVICE: 11/26/2014 DATE OF SERVICE: [...] time. Aliza Santana MD T: NTS JOB: [id number] 12/03/14 1321 <Electronically signed by An jamison Santana MD> Date Aliza Santana MD Cosigner Signature (If Indicated): Date CC: Aleyda Santana MD; Helen Barnes DO Date Dictated: 11/29/14918 Date Transcribed: 11/29/14918 Amusement Park Ride Mechanic: Signed 26-Nov-2014 Discharge Instruction Result: Comments: See Note; NOTES: [facility] Medical Records Department [address] [place] [address] Instructions for Home/Discharge Instructions 11/26/14 1200 MR#: [id number] ct: [id number] Name: YAHAIRA BRYANT Rep #: [id number] : 1950 64 From: Aliza Santana MD PCP: Helen Barnes DO Status: REG [facility] Discharge Diet: No Restrictions Discharge Activity: Return [...] Operative Report Result: Comments: See Note; NOTES: [facility] Medical Records Department [address] [facility] [address] Operative Report 11/26/14 1159 MR#: [id number] Acct: [id number] Name: YAHAIRA DEJESUS Rep #: [id number] : 1950 64 From: Aliza Santana MD PCP: Helen Barnes DO Status: REG [facility] Y Location: [place] [address] Operative Report (Blank) Date of Procedure: 11/26/14 [...] MD; Helen Barnes DO Signed 05-Nov-2014 Spirometry (82791) Comments: good effort aand curve mild obstruction Result: 06-Jun-2014 Transvaginal Non- Result: Comments: See Note; NOTES: [facility] Imaging Services [address] [place] [address] Ultrasound Report MR#: [id number] Acct: [id number] Name: YAHAIRA BRYANT Rep #: [id number] : 1950 F 63 From: Telly Cruz DO PCP: Helen Barnes DO Status: REG CLI Study: Transvaginal Non- Date of Exam: 06/06/14 Exam# [id number] Ordering Dr: Izzy Becerra STUDY: ULTRASOUND TRANSVAGINAL [...] DO at 13:34 EST , Service support [phone], CC: Helen Barnes DO; Izzy Becerra MD Amusement Park Ride Mechanic: Signed 06-Jun-2014 Pelvic (Non ) Result: Comments: See Note; NOTES: [facility] Imaging Services [address] [place] [address] Ultrasound Report MR#: [id number] Acct: [id number] Name: YAHAIRA BRYANT Rep #: [id number] : 1950 F 63 From: Telly Cruz DO PCP: Helen Barnes DO Status: REG CLI Study: Pelvic (Non ) Date of Exam: 06/06/14 Exam# [id number] Ordering Dr: Izzy Becerra MD STUDY: ULTRASOUND [...] DO at 13:34 EST , Service support [phone], CC: Helen Barnes DO; Izzy Becerra MD Amusement Park Ride Mechanic: Signed 11-Oct-2013 Bilat Scrn Digital & CAD Result: Comments: See Note; NOTES: [facility] Imaging Services [address] [place] [address] Breast Imaging Report MR#: [id number] Acct: [id number] Name: YAHAIRA BRYANT Rep #: [id number] : 1950 F 63 From: Bradly Lr MD PCP: Helen Barnes DO Status: REG CLI Exam# [id number] Ordering Dr: Helen Barnes DO MAMMOGRAPHY - [...] at 10:37 EDT , Servic e support [phone], CC: Helen Barnes DO Amusement Park Ride Mechanic: Signed Family History Unknown Family Member Name [...] kg/m2 Body Surface Area Calculated 1.52 m2 46-Ldj-479913:22 Temperature 97 f Pulse 96 /min Comments: [...] Value Details :41 Prothrombin Time w/INR Comments: [facility] [address] [place], [place], [phone] INR 3.0 (Normal) PROTIME 31.4 s (Abnormal) Range: 11.7-14.9 9-Jbe-066515:17 ANTINUCLEAR ANTIBODIES DIRECT Comments: [facility] (refer to report for specific site)refer to report for address and phone number YURIY-DIRECT Negative (Normal) Comments: Performed at: [address] [id number] Director: Jairo Sears PhD, Phone: [phone] :17 Protein Electro.Ur-Random Comments: [facility] (refer to report for specific site)refer to report for address and phone number NOTE Comment (Normal) Comments: Protein electrophoresis scan will follow via computer,mail, or restaurant culinary manager delivery.Performed at: [address] [id number] Director: Jairo Sears PhD, Phone: [phone] M-SPIKE,U % (Normal) Comments: NOT BSERVED GAMMA GLOB,U 15.5 % (Normal) BETA GLOB,U 33.2 % (Normal) CSHNU-1-OAEI,U 9.5 % (Normal) UYDJC-0-AUZL,U 2.3 % (Normal) ALBUMIN,UR 39.4 % (Normal) PROTEIN,UR 8.3 mg/dL (Normal) :17 Protein Electroph, S Comments: [facility] (refer to report for specific site)refer to report for address and phone number NOTE: Comment (Normal) Comments: The SPE pattern appears essentially unremarkable. Evidenceof monoclonal protein is not apparent.Performed at: [facility] [email or web address] [id number] Director: Jairo Sears PhD, Phone: [phone] INTERPRETATION Comment (Normal) Comments: Protein electrophoresis scan will follow via computer,mail, or restaurant culinary manager delivery. A/G RATIO 1.6 (Normal) Range: 0.7-1.7 [...] Range: 6.0-8.5 :18 Prothrombin Time w/INR Comments: [facility] [address] [place], [place], [phone] INR 2.7 (Normal) PROTIME 28.9 s (Abnormal) Range: 11.7-14.9 :58 Bilirubin, Direct Comments: [address] [place], [place], [id number] D BILI 0.18 mg/dL (Normal) Range: 0.00-0.30 :58 CBC W/Diff, Automated Comments: [address] [place], [place], [id number] Absolute Lymph 1.49 {X10_3/ul} (Normal) Range: 0.83-4.51 [...] (Abnormal) Range: 4.4-11.0 :58 Total Bilirubin Comments: [facility] [address] [place], [address] T BILI 0.80 mg/dL (Normal) Range: 0.20-1.00 3-Vnw-338873:14 Prothrombin Time w/INR Comments: [facility] [address] [place], [place], [phone] INR 2.6 (Normal) PROTIME 27.6 s (Abnormal) Range: 11.7-14.9 58-Maj-063499:01 CBC W/Diff, Automated Comments: [facility] [address] [facility] [address] [facility] [address] [address] [place], [place], [address] Absolute Lymph 1.26 {X10_3/ul} (Normal) Range: 0.83-4.51 [...] 4.2-5.4 WBC 3.3 K/mm3 (Abnormal) Range: 4.4-11.0 87-Wtn-510603:01 Comprehensive Metabolic Profil Comments: [facility] [address] [place], [address] GAP 9 (Normal) Range: 5-15 CO2 28.0 [...] Comments: Please note revised GLUCOSE reference range /02/2018. 28-Mtr-974827:15 Prothrombin Time w/INR Comments: [facility] [address] [place], [address] INR 3.0 (Normal) PROTIME 31.3 s (Abnormal) Range: 11.7-14.9 :26 Prothrombin Time w/INR Comments: [facility] [address] [place], [address] INR 2.8 (Normal) PROTIME 29.3 s (Abnormal) Range: 11.7-14.9 38-Gvq-819276:50 Prothrombin Time w/INR Comments: [facility] [address] [place], [address] INR 2.7 (Normal) PROTIME 28.7 s (Abnormal) Range: 11.7-14.9 :35 Prothrombin Time w/INR Comments: [facility] [address] [place], [address] INR 2.9 (Normal) PROTIME 30.2 s (Abnormal) Range: 11.7-14.9 :44 Prothrombin Time w/INR Comments: [facility] [address] [place], [address] INR 2.9 (Normal) PROTIME 30.1 s (Abnormal) Range: 11.7-14.9 :55 Prothrombin Time w/INR Comments: [facility] [address] [place], [address] INR 2.8 (Normal) PROTIME 29.4 s (Abnormal) Range: 11.7-14.9 :10 Prothrombin Time w/INR Comments: [facility] [address] [place], [address] INR 2.4 (Normal) PROTIME 26.2 s (Abnormal) Range: 11.7-14.9 :09 Prothrombin Time w/INR Comments: [facility] [address] [place], [address] INR 1.1 (Normal) PROTIME 14.0 s (Normal) Range: 11.7-14.9 :29 Prothrombin Time w/INR Comments: RESULT(S) PREVIOUSLY REPORTED ON MANUAL REQUISITION DURINGDOWNTIME.[facility] [address] [place], [address] INR 1.3 (Normal) PROTIME 16.4 s (Abnormal) Range: 11.7-14.9 :30 Prothrombin Time w/INR Comments: [facility] [address] [place], [address] INR 2.0 (Normal) PROTIME 22.9 s (Abnormal) Range: 11.7-14.9 :01 Prothrombin Time w/INR Comments: [facility] [address] [place], [address] INR 1.5 (Normal) PROTIME 18.0 s (Abnormal) Range: 11.7-14.9 :46 Prothrombin Time w/INR Comments: [facility] [address] [place], [address] INR 1.9 (Normal) PROTIME 22.2 s (Abnormal) Range: 11.7-14.9 :25 Prothrombin Time w/INR Comments: [facility] [address] [place], [address] INR 1.9 (Normal) PROTIME 22.0 s (Abnormal) Range: 11.7-14.9 :59 Prothrombin Time w/INR Comments: [facility] [address] [place], [address] INR 2.0 (Normal) PROTIME 22.8 s (Abnormal) Range: 11.7-14.9 :58 Prothrombin Time w/INR Comments: [facility] [address] [place], [place], [address] INR 1.8 (Normal) PROTIME 20.7 s (Abnormal) Range: 11.7-14.9 27-Fyw-834038:31 Prothrombin Time w/INR Comments: [place] [address] [place], [place], [address] INR 1.7 (Normal) PROTIME 19.9 s (Abnormal) Range: 11.7-14.9 73-Bxu-348727:20 Prothrombin Time w/INR Comments: [place] [address] [place], [place], [address] INR 2.6 (Normal) PROTIME 27.9 s (Abnormal) Range: 11.7-14.9 :39 Prothrombin Time w/INR Comments: [place] [address] [place], [place], [address] INR 2.9 (Normal) PROTIME 30.5 s (Abnormal) Range: 11.7-14.9 45-Xgt-537420:03 Rapid Flu (01686 x 2) Influenza A Ag neg (Normal) 63-Zjz-847705:00 Prothrombin Time w/INR Comments: [place] [address] [place], [place], [address] ; See pt message INR 3.7 (Abnormal) Comments: CRITICAL VALUE VERIFIED. CALLED TO KOLTON 05/31/17 1130 Nii Lind.RESULTS READ BACK BY SAME. PROTIME 35.0 s (Abnormal) Range: 11.7-14.9 :21 Prothrombin Time w/INR Comments: [place] [address] [place], [place], [address] INR 4.7 (Abnormal) Comments: CRITICAL VALUE VERIFIED. CALLED TO GEOVANNI AT [facility]05/24/17 0956 Violeta Noble.RESULTS READ BACK BY SAME . PROTIME 42.4 s (Abnormal) Range: 11.7-14.9 30-Cqr-941964:27 Prothrombin Time w/INR Comments: [facility] [address] [place], [address] INR 1.9 (Normal) PROTIME 20.9 s (Abnormal) Range: 11.7-14.9 :42 Prothrombin Time w/INR Comments: [facility] [address] [place], [address] INR 4.3 (Abnormal) Comments: CRITICAL VALUE VERIFIED. CALLED TO 05/10/17 0830 Josue Velazquez.RESULTS READ BACK BY . PROTIME 39.8 s (Abnormal) Range: 11.7-14.9 :18 Prothrombin Time w/INR Comments: [facility] [address] [place], [address] INR 2.4 (Normal) PROTIME 24.8 s (Abnormal) Range: 11.7-14.9 :18 Prothrombin Time w/INR Comments: [facility] [address] [place], [address] INR 2.4 (Normal) PROTIME 25.2 s (Abnormal) Range: 11.7-14.9 35-Hzt-930149:00 Prothrombin Time w/INR Comments: [facility] [address] [place], [address] INR 2.5 (Normal) PROTIME 25.8 s (Abnormal) Range: 11.7-14.9 :32 Prothrombin Time w/INR Comments: [facility] [address] [place], [address] INR 2.1 (Normal) PROTIME 22.7 s (Abnormal) Range: 11.7-14.9 :23 Prothrombin Time w/INR Comments: [facility] [address] [place], [address] INR 2.3 (Normal) PROTIME 24.6 s (Abnormal) Range: 11.7-14.9 :14 Prothrombin Time w/INR Comments: [facility] [address] [place], [address] INR 2.0 (Normal) PROTIME 21.9 s (Abnormal) Range: 11.7-14.9 :18 Prothrombin Time w/INR Comments: [facility] [address] [place], [address] INR 2.5 (Normal) PROTIME 25.6 s (Abnormal) Range: 11.7-14.9 :39 Prothrombin Time w/INR Comments: [facility] [address] [place], [address] INR 2.1 (Normal) PROTIME 22.7 s (Abnormal) Range: 11.7-14.9 :40 Prothrombin Time w/INR Comments: [facility] [address] [place], [address] INR 2.6 (Normal) PROTIME 26.8 s (Abnormal) Range: 11.7-14.9 :40 Prothrombin Time w/INR Comments: [place] [address] [place], [address] INR 2.2 (Normal) PROTIME 23.8 s (Abnormal) Range: 11.7-14.9 8-Kev-254960:21 Prothrombin Time w/INR Comments: [facility] [address] [place], [address] INR 1.8 (Normal) PROTIME 20.1 s (Abnormal) Range: 11.7-14.9 :30 Prothrombin Time w/INR Comments: [facility] [address] [place], [address] INR 3.0 (Normal) PROTIME 30.2 s (Abnormal) Range: 11.7-14.9 :45 Prothrombin Time w/INR Comments: [facility] [address] [place], [address] INR 2.9 (Normal) PROTIME 29.1 s (Abnormal) Range: 11.7-14.9 :52 Prothrombin Time w/INR Comments: [facility] [address] [place], [phone] INR 1.4 (Normal) PROTIME 17.0 s (Abnormal) Range: 11.7-14.9 :27 Prothrombin Time w/INR Comments: [facility] [address] [place], [address] INR 2.0 (Normal) PROTIME 21.7 s (Abnormal) Range: 11.7-14.9 :21 Prothrombin Time w/INR Comments: [facility] [address] [place], [address] INR 2.3 (Normal) PROTIME 24.1 s (Abnormal) Range: 11.7-14.9 :43 Prothrombin Time w/INR Comments: [facility] [address] [place], [address] INR 2.9 (Normal) PROTIME 29.1 s (Abnormal) Range: 11.7-14.9 :47 Prothrombin Time w/INR Comments: [facility] [address] [place], [address] INR 2.3 (Normal) PROTIME 24.0 s (Abnormal) Range: 11.7-14.9 :25 CBC W/Diff, Automated Comments: [facility] [address] [place], [address] ; see other message Absolute Lymph 2.07 [...] Range: 4.4-11.0 07-Jul-20167:25 Comprehensive Metabolic Profil Comments: [facility] [address] [place], [address] GAP 3 (Abnormal) Range: 5-15 CO2 28.0 [...] Range: 70-110 :25 Prothrombin Time w/INR Comments: [facility] [address] [place], [place], [address](178) INR 3.5 (Abnormal) Comments: CRITICAL VALUE VERIFIED. CALLED TO PATRICE Longoria07/07/16 0834 Radha Calderon.RESULTS READ BACK BY SAME . PROTIME 33.9 s (Abnormal) Range: 11.7-14.9 :25 Thyroid Stim Hormone (TSH) Comments: [facility] [address] [place], [place], [phone]39) TSH 3.25 {uIU/mL} (Normal) Range: 0.358-3.74 :47 Prothrombin Time w/INR Comments: [facility] [address] [place], [place], [address](659) INR 2.6 (Normal) Comments: ADDENDA: handled by Dr. Phillips PROTIME 27.5 s (Abnormal) Range: 11.7-14.9 :32 Prothrombin Time w/INR Comments: [facility] [address] [place], [place], [phone]) INR 2.3 (Normal) PROTIME 25.5 s (Abnormal) Range: 11.7-14.9 :15 Prothrombin Time w/INR Comments: [facility] [address] [place], [address] INR 2.6 (Normal) PROTIME 27.7 s (Abnormal) Range: 11.7-14.9 :29 Prothrombin Time w/INR Comments: [facility] [address] [place], [address] INR 1.3 (Normal) PROTIME 16.7 s (Abnormal) Range: 11.7-14.9 :19 Prothrombin Time w/INR Comments: [place] [address] [place], [address] INR 2.1 (Normal) PROTIME 23.3 s (Abnormal) Range: 11.7-14.9 :14 Prothrombin Time w/INR Comments: [place] [address] [place], [address] INR 2.0 (Normal) PROTIME 22.5 s (Abnormal) Range: 11.7-14.9 :21 Prothrombin Time w/INR Comments: [place] [address] [place], [address] INR 2.7 (Normal) PROTIME 28.5 s (Abnormal) Range: 11.7-14.9 :30 Prothrombin Time w/INR Comments: [place] [address] [place], [address] INR 2.4 (Normal) PROTIME 25.9 s (Abnormal) Range: 11.7-14.9 :41 Prothrombin Time w/INR Comments: [place] [address] [place], [address] INR 2.5 (Normal) PROTIME 26.9 s (Abnormal) Range: 11.7-14.9 :09 Prothrombin Time w/INR Comments: [place] [address] [place], [address] INR 3.4 (Normal) PROTIME 34.4 s (Abnormal) Range: 11.7-14.9 :11 Prothrombin Time w/INR Comments: [facility] [address] [place], [address] INR 2.5 (Normal) PROTIME 26.6 s (Abnormal) Range: 11.7-14.9 :33 Prothrombin Time w/INR Comments: [place] [address] [place], [address] INR 1.5 (Normal) PROTIME 18.1 s (Abnormal) Range: 11.7-14.9 :12 Prothrombin Time w/INR Comments: [facility] [address] [place], [address] INR 1.1 (Normal) PROTIME 14.4 s (Normal) Range: 11.7-14.9 :51 Prothrombin Time w/INR Comments: [facility] [address] [place], [address] INR 3.6 (Abnormal) Comments: CRITICAL VALUE REPEATED AND VERIFIED. CALLED TO Maycol DAVISON02/25/15 1001 Elsie Longoria.RESULTS READ BACK BY MARGUERITE . PROTIME 35.3 s (Abnormal) Range: 11.7-14.9 :23 Prothrombin Time w/INR Comments: [facility] [address] [place], [address] INR 3.3 (Normal) PROTIME 33.3 s (Abnormal) Range: 11.7-14.9 :13 Prothrombin Time w/INR Comments: [facility] [address] [place], [address] INR 2.4 (Normal) PROTIME 26.5 s (Abnormal) Range: 11.7-14.9 :32 Prothrombin Time w/INR Comments: [place] [address] [place] [place], [address] INR 1.4 (Normal) PROTIME 17.8 s (Abnormal) Range: 11.7-14.9 :09 Prothrombin Time w/INR Comments: [facility] [address] [place], [address] INR 1.2 (Normal) PROTIME 15.9 s (Abnormal) Range: 11.7-14.9 :12 Prothrombin Time w/INR Comments: [facility] [address] [place], [address] INR 2.4 (Normal) PROTIME 26.4 s (Abnormal) Range: 11.7-14.9 :20 Prothrombin Time w/INR Comments: [facility] [address] [place], [address] INR 2.2 (Normal) PROTIME 24.5 s (Abnormal) Range: 11.7-14.9 :11 Prothrombin Time w/INR Comments: Test performed at:[facility] [address] [place] [address] INR 2.2 (Normal) PROTIME 24.1 s (Abnormal) Range: 11.7-14.9 :29 Prothrombin Time w/INR Comments: Test performed at:[facility] [address] [place] [address] INR 3.7 (Abnormal) Comments: CRITICAL VALUE REPEATED AND VERIFIED. CALLED TO KIKE WOMACK12/21/14 Frida Kumar.RESULTS READ BACK BY SAME . PROTIME 36.5 s (Abnormal) Range: 11.7-14.9 :25 Prothrombin Time w/INR Comments: Test performed at:[facility] [address] [place] [address] INR 2.5 (Normal) PROTIME 27.1 s (Abnormal) Range: 11.7-14.9 :23 Miscellaneous Lab Procedure Comments: Comments: [id number] PTH PLUS CALCIUM LAV AND RED RFTest(s) Ordered: [id number] PTH PLUS CALCIUM LAV AND RED RFTest performed at:[facility] [address] [address] [facility] Comments: TEST RESULT LIMITSCa+PTH Intact Calcium, Serum [...] - 65 < 8.6 TESTING PERFORMED AT [facility]. ORIGINAL REPORT ON FILE IN LAB CONTAINS AD DITIONAL TEST SITE INFORMATION. :23 Prothrombin Time w/INR Comments: Test performed at:[facility] [address] [place] [address] INR 4.0 (Abnormal) Comments: CRITICAL VALUE REPEATED AND VERIFIED. CALLED TO CGQUWB00/11/15 0933 Fletcher Foote.RESULTS READ BACK BY SAME . PROTIME 38.3 s (Abnormal) Range: 11.7-14.9 02-Lxg-84130:23 Vitamin D 1,25-Dihydroxy Comments: Test performed at:[facility] [address] [place] [address] VITD 1,25 77030 55.5 pg/mL (Normal) Range: 19.9-79.3 Comments: Performed at: [facility] [address] [place], [place] [id number] Director: Juan Ontiveros MD, Phone: [phone] :23 Vitamin D,25 Hydroxy Comments: Test performed at:[facility] [address] [place] [address] Vitamin D 25-OH 70.3 ng/mL (Normal) Comments: Vitamin D 25(OH) Status Range Deficiency <20 ng/mL (50nmol/L) Insuffciency 20 - 30 ng/mL (50 - 75 nmol/L) Sufficiency 30 - 100 ng/mL (75 - 250 nmol/L) Toxicity >100 ng/mL (>250 nmol/L) :04 Prothrombin Time w/INR Comments: Test performed at:[facility] [address] [place] [address] INR 2.1 (Normal) PROTIME 23.5 s (Abnormal) Range: 11.7-14.9 :12 Prothrombin Time w/INR Comments: Test performed at:[facility] [address] [place] [address] INR 1.6 (Normal) PROTIME 18.9 s (Abnormal) Range: 11.7-14.9 :10 Prothrombin Time w/INR Comments: Test performed at:[facility] [address] [place] [address] INR 1.1 (Normal) PROTIME 14.1 s (Normal) Range: 11.7-14.9 [id number]-[id number]: ENDOMETRIAL BX/CURETTINGS See Note (Normal) Comments: Test performed at:[facility] [address] [place] [address] Comments: Patient: YAHAIRA BRYANT : 1950 (64/F) Acct Num: [id number] Phys: Aliza Santana MD Unit Num: [id number] Loc: [facility] Specimen: [id number] Received: 11/26/141216 Spec Type: EN DOM BX/C TISSUES TISSUES: GROSS DESCRIPTION Received is one container labeled with the patient name and designated endometrial curettings. The specimen consists of scant fragments of sahni mucoid tissue measuring less than 0.1 cm in greatest dimension. It is doubtful that the specimen will survive processing. The specimen is totally submitted inone cassette. / :papito 11/26/14 TC: 5 CPT: 27825 HEADER OPERATION: Hysteroscopy, diagnostic, D AND C PRE-OP DIAGNOSIS: Postmenopausal bleeding TISSUE SUBMITTED: Endometrial curettings MICROSCOPIC DESCRIPTION Slides are reviewed. MICROSCOPIC DIAGNOSIS Endometrial curettings: Scant strips of benign endometrial epithelium and superficial fragment of benign endometrial tissue, consistent with atrophic endometri um. Fragments of benign endocervical epithelium. SJ:papito 11/27/14 Signed Jeffy Gabriele 11/27/14 <signature on file> 07-Zec-258056:39 INR Fingerstick Comments: Test performed at:[facility] [address] [place] [address] INR ISTAT 1.10 (Normal) Comments: Critical Value > 3.5; ADDENDA: this is for pre-op, will resume tomorrow and recheck it in 1 week. [id number]-Bbo-[id number]:39 Prothrombin Time Fingerstick Comments: Test performed at:[facility] [address] [place] [address] PROTIME ISTAT 13.2 {SEC} (Normal) Range: 11.9-14.4 Comments: Reference Range 11.9 - 14.4 :41 Partial Thromboplast Time Comments: Test performed at:[facility] [address] [place] [address] PTT 40.9 s (Abnormal) Range: 24.1-36.2 :41 Prothrombin Time w/INR Comments: Test performed at:[facility] [address] [place] [address] INR 2.6 (Normal) PROTIME 27.4 s (Abnormal) Range: 11.7-14.9 05-Aas-837439:41 Type AND Screen Comments: Surgery Date: 11/26/14Hx of Preganancy in last 3 Months NoEver experience any problems with transfusion(s)? NHx of Transfusion in last 3 Months NReason for Type AND Screen/Red Cells: SURGERYSURGI ADELSO PROCEDURE: .Test performed at:[facility] [address] [place] [address] Antibody Screen NEGATIVE (Normal) BLOOD TYPE GEL A POSITIVE (Normal) :09 CBC W/Diff, Automated Comments: Test performed at:[facility] [address] [place] [address] Absolute Lymph 2.07 {X10_3/ul} (Normal) [...] :09 Comprehensive Metabolic Profil Comments: Test performed at:[facility] [address] [place], [place] [address] GAP 6 (Normal) Range: 5-15 CO2 29.0 [...] Comments: Please note revised CREATININE reference range flpcybdex28/22/2015. BUN 19 mg/dL (Abnormal) Range: 7-18 GLU 75 mg/dL (Normal) Range: 70-110 :09 Prothrombin Time w/INR Comments: Test performed at:[facility] [address] [place] [address] INR 2.4 (Normal) PROTIME 25.8 s (Abnormal) Range: 11.7-14.9 :13 Prothrombin Time w/INR Comments: Test performed at:[facility] [address] [place] [address] INR 1.8 (Normal) PROTIME 21.2 s (Abnormal) Range: 11.7-14.9 :06 Prothrombin Time w/INR Comments: Test performed at:[facility] [address] [place] [address] INR 2.2 (Normal) PROTIME 24.4 s (Abnormal) Range: 11.7-14.9 :50 Prothrombin Time w/INR Comments: Test performed at:[facility] [address] [place] [address] INR 1.7 (Normal) PROTIME 20.3 s (Abnormal) Range: 11.7-14.9 71-Jbz-469757:16 Estrogen, Total, Serum Comments: Comments: TSHHas Patient had Radioactive Injection for X-ray?: NTest performed at:[facility] [address] [place] [address] [place], [place] [address] ESTROGEN 4549 54 pg/mL (Normal) Comments: Prepubertal <40 Female Cycle: 1-10 Days 61 - 394 11-20 Days 122 - 437 21-30 Days 156 - 350 Post-Menopausal <40 HMG Treatment for Ovulation Induction: 400 - 800Performed at: [facility] Lab[address] [id number] Director: Juan Ontiveros MD, Phone: [phone] 35-Qxt-885561:16 Free T3 Comments: Comments: TSHTest performed at:[facility] [address] [place] [address] FREE T3 2.6 pg/mL (Normal) Range: 2.18-3.98 99-Jpe-896277:16 Hemoglobin A1c Comments: Test performed at:[address] [place], [place] [address] HGB A1C 5.0 % (Normal) Range: 4.2-6.3 74-Xgv-937395:16 Progesterone Level Comments: Test performed at:[facility] [address] [place] [address] Progesterone 0.48 ng/mL (Normal) Comments: Progesterone Reference Table: UNITS Female: Follicular 0.15 - 1.40 ng/mL Luteal 3.34 - 25.56 ng/mL Mid-luteal 4.44 - 28.03 ng/mL Postmenopausal 0.0 - 0.73 ng/mL : 1st Trimester 11.22 - 90.00 ng /mL 2nd Trimester 25.55 - 89.40 ng/mL 3rd Trimester 48.40 -422.50 ng/mL 86-Rxj-590725:16 T4 Free Direct Comments: Comments: TSHTest performed at:[facility] [address] [place] [address] T4 FREE DIRECT 1.16 ng/dL (Normal) Range: 0.76-1.46 27-Bwo-883843:16 Testosterone, Serum Total Comments: Test performed at:[facility] [address] [place] [address] ; ordered by Dr. Santana Testosterone 35 ng/dL (Normal) Range: 14-76 72-Uwx-807476:16 Thyroid Stim Hormone (TSH) Comments: Comments: TSHTest performed at:[facility] [address] [place] [address] TSH 1.53 {uIU/mL} (Normal) Range: 0.358-3.74 :11 Prothrombin Time w/INR Comments: Test performed at:[facility] [address] [place] [address] INR 1.8 (Normal) PROTIME 20.9 s (Abnormal) Range: 11.7-14.9 :27 Prothrombin Time w/INR Comments: Test performed at:[facility] [address] [place] [address] INR 2.2 (Normal) PROTIME 24.8 s (Abnormal) Range: 11.7-14.9 :08 Prothrombin Time w/INR Comments: Test performed at:[facility] [address] [place] [address] INR 4.8 (Abnormal) Comments: CRITICAL VALUE REPEATED AND VERIFIED. CALLED TO RADHA WOMACK10/01/14 0855 Nii Lind.RESULTS READ BACK BY DAVID. PROTIME 44.0 s (Abnormal) Range: 11.7-14.9 :14 Prothrombin Time w/INR Comments: Test performed at:[facility] [address] [place] [address] INR 2.6 (Normal) PROTIME 27.9 s (Abnormal) Range: 11.7-14.9 :16 Prothrombin Time w/INR Comments: Test performed at:[facility] [address] [place] [address]( INR 5.0 (Abnormal) Comments: CRITICAL VALUE REPEATED AND VERIFIED. CALLED TO Tami DAVISON09/21/14 0809 lEsie Longoria.RESULTS READ BACK BY CONNER . PROTIME 45.5 s (Abnormal) Range: 11.7-14.9 :10 Prothrombin Time w/INR Comments: Test performed at:[facility] [address] [place] [address] INR 3.2 (Normal) PROTIME 32.8 s (Abnormal) Range: 11.7-14.9 :24 Miscellaneous Lab Procedure Comments: Comments: [id number] HHV-6 IGM,SST,REFRIGERATETest(s) Ordered: [id number] HHV-6 IGM,SST,REFRIGERATETest performed at:[facility] [address] [place] [address] [facility] Comments: TEST RESULT UNITS REFERENCE INTERVALHuman Herpes Virus Type 6 IgM <1:10 Neg:<1:10Results for this test are for research purposes only by LAB (Normal) theassay's snowmobile mechanic. The performance characteristics ofthis product have not been established. Results should notbe used as a diagnostic procedure without confirmation ofthe diagnosis by another med TEST ically established diagnosticproduct or procedure. TESTING PERFORMED AT [facility]. ORIGINAL REPORT ON FILE IN LAB CONTAINS ADDITIONAL TEST SITE IN FORMATION. :18 ANTINUCLEAR ANTIBODIES DIRECT Comments: Test performed at:[facility] [address] [place] [address] YURIY-DIRECT Negative (Normal) Comments: Performed at: [address] [id number] Director: Narendra Covarrubias PhD, Phone: [phone] :18 CMV Acute Antibody IgM Comments: Test performed at:[address] [place] [address] CMVIgM AB < 30.0 AU/mL (Normal) Range: 0.0-29.9 Comments: Negative <30.0 Equivocal 30.0 - 34.9 Positive >34.9A positive result is generally indicative of acuteinfection, react ivation or persistent IgM production.Performed at: [address] [id number] Director: Narendra Covarrubias PhD, Phone: [phone] at: [facility] [address] [place], [place] [id number] Director: Juan Ontiveros MD, Phone: [phone] at: [address] [place] [address] YBO[address] [place], [place] [id number] Director: Bill Tao PhD, Phone: [phone] :18 CMV Antibody IgG Comments: Test performed at:[facility] [place] [address] [place] [address] CMV AB IgG > 10.00 U/mL (Abnormal) Range: 0.00-0.59 Comments: Negative <0.60 Equivocal 0.60 - 0.69 Positive >0.69 :18 EBV Acute Prof IgG / IgM Comments: Test performed at:[facility] [address] [place] [address] INTERPRETATION Comment (Normal) Comments: EBV Interpretation ChartInterpretation EBV-IgM EA(D)-IgG VCA-IgG EBNA-IgGEBV Seronegative - - - -Early Phase + - - -Acute Primary + +or- + -InfectionConvalescence/Past - +or- + +InfectionReactivated +or- + + +Infection + Antibody Present - Antibody Absent EB-NAg [id number] 71.5 U/mL (Abnormal) Range: 0.0-17.9 Comments: Negative <18.0 Equivocal 18.0 - 21.9 Positive >21.9 EB-VCA [id number] > 600.0 U/mL (Abnormal) Range: 0.0-17.9 Comments: Negative <18.0 Equivocal 18.0 - 21.9 Positive >21.9 EB-EA IgG [id number] 21.1 U/mL (Abnormal) Range: 0.0-8.9 Comments: Hepatitis A, Hepatitis C and HIV antibodies may cross-reactwith this assay. Negative < 9.0 Equivocal 9.0 - 10.9 Positive >10.9 EB-VCA [id number] < 36.0 U/mL (Normal) Range: 0.0-35.9 Comments: Negative <36.0 Equivocal 36.0 - 43.9 Positive >43.9 :18 Ferritin Comments: Test performed at:[facility] [address] [place] [address] FERRITIN 28 ng/mL (Normal) Range: 8-252 :18 HLA B27 Negative (Normal) Comments: Test performed at:[address] [address] Comments: HLA-B*27 NegativeA Lab CLIA ID Number [id number] test was performed using PCR (Polymerase ChainReaction)/SSOP (Sequence Specific Oligonucleotide Probes)technique. SBT (Sequence Based Typing) and/ or SSP(Sequence Specific Primers) may be used as supplementalmethods when necessary. Please contact [facility] CustomerService at if you have any questions. Director of HLA Laboratory Dr Bill Toa, PhD :18 Homocysteine Comments: Test performed at:[facility] [address] [place] [address] HOMOCYSTEINE 6.7 umol/L (Normal) Range: 3.2-10.7 :18 IgG Subclasses Comments: Test performed at:[facility] [address] [place] [address] IgG, SUBCLASS 4 1 mg/dL (Normal) Range: 1-291 Comments: Results verified by repeat testing IgG, SUBCLASS 3 52 mg/dL (Normal) Range: 41-129 IgG, SUBCLASS 2 145 mg/dL (Normal) Range: 117-747 IgG, SUBCLASS 1 264 mg/dL (Abnormal) Range: 422-1292 IGG, QUANT 520 mg/dL (Abnormal) Range: 700-1600 :18 Miscellaneous Lab Procedure Comments: Comments: [id number] HHV-6 IGG,SST,REFRIGERATETest(s) Ordered: [id number] HHV-6 IGG,SST,REFRIGERATEList Test(s) Ordered by Physician: IGA SUBCLASSES, #[id number], SERUM,RM TEMP, 2 MLTest performed at:[facility] [address] [place] [address] MISC Comments: TEST RESULT UNITS REFERENCE INTERVALHHV 6 IgG Antibodies 2.42 High index Negative <0.76 Equivocal 0.76 - 0.99 LAB (Normal) Positive >0.99Results for this test are for research purposesonly by the assay's snowmobile mechanic. The performancecharacteristics of this product have not beenestablishe TEST d. Results should not be used as adiagnostic procedure without confirmation of thediagnosis by another medically established diagnosticproduct or procedure. TESTING PERFORMED AT [facility]. ORIGINAL REPORT ON FILE IN LAB CONTAINS ADDITIONAL TEST SITE INFORMATION. :18 Miscellaneous Lab Procedure Comments: Comments: [id number] HLA-DR4,SST,REFRIGERATETest(s) Ordered: [id number] HLA-DR4,SST,REFRIGERATETest performed at:[facility] [address] [place] [address] [facility] Comments: TEST RESULT UNITS REFERENCE INTERVALHLA DRB1 (IR) DRB1 DRB1*07:NIRAV DRB1 DRB1*- Code Translation: NIRAV 07:0107:09/07:10N/07:11/07:14/07:22 LAB (Normal) /07:24 /07:25/07:26N/07:27/07:28/07:29HLA allele interpretation for all loci based on IMGT/HLAdatabase version 3.15A Lab [place] ID Number [id number] TEST TESTING PERFORMED AT [facility]. ORIGINAL REPORT ON FILE IN LAB CONTAINS ADDITIONAL TEST SITE INFORMATION. HLA Methodology:HLA result s were obtained using sequence based typing (SBT),sequence specific oligonucleotide probes (SSOP), and/orsequence specific primers (SSP) as needed to obtain therequired resolution. Please contact HLA [facility] [employer] [phone] if you have any questions.Director of HLA LaboratoryDr Bill Tao, PhD :18 Miscellaneous Lab Procedure 2 Comments: Comments: [id number] HHV- 6 IGG,SST,REFRIGERATETest(s) Ordered: [id number] HHV-6 IGG,SST,REFRIGERATEList Test(s) Ordered by Physician: IGA SUBCLASSES, #[id number], SERUM,RM TEMP, 2 MLTest performed at:[facility] [address] [place] [address] [facility] Comments: TEST RESULT UNITS REFERENCE INTERVALIgA, Subclasses (1-2) Immunoglobulin A, Qn, Serum 161 mg/dL 91 - 414 IgA, Subclass 1 132.0 mg/dL LAB (Normal) 73.2 - 301.2 IgA, Subclass 2 6.2 Low mg/dL 13.4 - 97.9 TESTING PERFORMED AT [facility]. ORIGINAL REPORT ON FILE IN LAB CONTAINS MANFRED TEST TIONAL TEST SITE INFORMATION. 2 :18 Prothrombin Time w/INR Comments: Test performed at:[facility] [address] [place] [address] INR 1.9 (Normal) PROTIME 22.3 s (Abnormal) Range: 11.7-14.9 :18 Vitamin B12 664 pg/mL (Normal) Comments: Test performed at:[facility] [address] [place] [address] Range: 211-911 :18 Vitamin D,25 Hydroxy Comments: Test performed at:[facility] [address] [place] [address] Vitamin D 25-OH 58.8 ng/mL (Normal) Comments: Vitamin D 25(OH) Status Range Deficiency <20 ng/mL (50nmol/L) Insuffciency 20 - 30 ng/mL (50 - 75 nmol/L) Sufficiency 30 - 100 ng/mL (75 - 250 nmol/L) Toxicity >100 ng/mL (>250 nmol/L) :13 CBC W/Diff, Automated Comments: Test performed at:[facility] [address] [place], [place] [address] Absolute Lymph 2.08 {X10_3/ul} (Normal) Range: 0.83-4.51 [...] :13 Comprehensive Metabolic Profil Comments: Test performed at:[facility] [address] [place] [address] GAP 7 (Normal) Range: 5-15 [...] 70-110 :13 Lipid Profile Comments: Test performed at:[facility] [address] [place], [place] [address] VLDL 9 mg/dL (Normal) Range: 5-40 LDL [...] :13 Prothrombin Time w/INR Comments: Test performed at:[facility] [address] [place] [address] INR 1.5 (Normal) PROTIME 18.4 s (Abnormal) Range: 11.7-14.9 :17 INR Fingerstick Comments: Test performed at:[facility] [address] [place] [address] INR ISTAT 1.50 (Normal) Comments: Critical Value > 3.5 :17 Prothrombin Time Fingerstick Comments: Test performed at:[facility] [address] [place] [address] PROTIME ISTAT 17.6 {SEC} (Abnormal) Range: 11.9-14.4 Comments: Reference Range 11.9 - 14.4 :09 INR Fingerstick Comments: Test performed at:[facility] [address] [place] [address] INR ISTAT 1.40 (Normal) Comments: Critical Value > 3.5 :09 Prothrombin Time Fingerstick Comments: Test performed at:[facility] [address] [place] [address] PROTIME ISTAT 17.1 {SEC} (Abnormal) Range: 11.9-14.4 Comments: Reference Range 11.9 - 14.4 :09 Prothrombin Time w/INR Comments: Test performed at:[facility] [address] [place] [address] INR 1.1 (Normal) PROTIME 14.6 s (Normal) Range: 11.7-14.9 :11 INR Fingerstick Comments: Test performed at:[facility] [address] [place] [address] INR ISTAT 1.20 (Normal) Comments: Critical Value > 3.5 :11 Prothrombin Time Fingerstick Comments: Test performed at:[facility] [address] [place] [address] PROTIME ISTAT 13.9 {SEC} (Normal) Range: 11.9-14.4 Comments: Reference Range 11.9 - 14.4 :06 INR Fingerstick Comments: Test performed at:[facility] [address] [place] [address] INR ISTAT 1.10 (Normal) Comments: Critical Value > 3.5 :06 Prothrombin Time Fingerstick Comments: Test performed at:[facility] [address] [place] [address] PROTIME ISTAT 13.6 {SEC} (Normal) Range: 11.9-14.4 Comments: Reference Range 11.9 - 14.4 :28 INR Fingerstick Comments: Test performed at:[facility] [address] [place] [address] INR ISTAT 2.20 (Normal) Comments: Critical Value > 3.5 :28 Prothrombin Time Fingerstick Comments: Test performed at:[facility] [address] [place] [address] PROTIME ISTAT 25.0 {SEC} (Abnormal) Range: 11.9-14.4 Comments: Reference Range 11.9 - 14.4 :19 INR Fingerstick Comments: Test performed at:[facility] [address] [place] [address] INR ISTAT 2.70 (Normal) Comments: Critical Value > 3.5 :19 Prothrombin Time Fingerstick Comments: Test performed at:[facility] [address] [place] [address] PROTIME ISTAT 30.6 {SEC} (Abnormal) Range: 11.9-14.4 Comments: Reference Range 11.9 - 14.4 :09 Prothrombin Time w/INR Comments: Test performed at:[facility] [facility] [address] [place] [address] INR 3.2 (Normal) PROTIME 32.6 s (Abnormal) Range: 11.7-14.9 :22 Prothrombin Time w/INR Comments: Test performed at:[facility] [address] [place] [address] INR 2.6 (Normal) PROTIME 27.8 s (Abnormal) Range: 11.7-14.9 :22 Prothrombin Time w/INR Comments: Test performed at:[facility] [address] [place] [address] INR 3.0 (Normal) PROTIME 30.9 s (Abnormal) Range: 11.7-14.9 :12 Prothrombin Time w/INR Comments: Test performed at:[facility] [address] [place] [address] INR 3.4 (Normal) PROTIME 33.7 s (Abnormal) Range: 11.7-14.9 :10 Prothrombin Time w/INR Comments: Test performed at:[facility] [address] [place] [address] INR 3.7 (Abnormal) PROTIME 36.4 s (Abnormal) Range: 11.7-14.9 32-Wvm-473828:20 Prothrombin Time w/INR Comments: Test performed at:[facility] [address] [place] [address] INR 3.0 (Normal) PROTIME 31.0 s (Abnormal) Range: 11.7-14.9 :10 Prothrombin Time w/INR Comments: Test performed at:[facility] [address] [place] [address] INR 3.0 (Normal) PROTIME 30.7 s (Abnormal) Range: 11.7-14.9 :04 Prothrombin Time w/INR Comments: Test performed at:[facility] [address] [place], [place] [address] INR 1.7 (Normal) PROTIME 19.7 s (Abnormal) Range: 11.7-14.9 :17 Prothrombin Time w/INR Comments: Test performed at:[facility] [address] [place], [place] [id number] INR 1.8 (Normal) PROTIME 21.1 s (Abnormal) [...] Comments: Please note revised PROTIME reference range iosfwofat55/14/15. 57-Jnc-41268:05 PT INR 3.0 (Normal) PTP 30.6 s (Abnormal) Range: 11.7-14.9 Comments: Please note revised PROTIME reference range jxhuuoyob55/14/15. 69-Nmx-90426:07 PT INR 5.6 (Abnormal) PTP 50.1 s (Abnormal) Range: 11.7-14.9 Comments: Please note revised PROTIME reference range mvlweufsr88/14/15. :03 PT INR 2.5 (Normal) PTP 27.0 s (Abnormal) Range: 11.7-14.9 Comments: Please note revised PROTIME reference range bdzejebsb65/14/15. 76-Ynx-09509:03 PT INR 2.0 (Normal) PTP 23.0 s (Abnormal) Range: 11.7-14.9 Comments: Please note revised PROTIME reference range gwbzjpwun81. 2-:06 PT INR 2.1 (Normal) PTP 21.9 [...] CALL DR. BARNES OFFICE, LEFT MESSAGE, 08/01/13 8:30AMSBRYANRESULTS CALLED TO HERIBERTO 08/01/13 0846 Ayla Stanton.REPORT [...] CHOL 287 mg/dL (Abnormal) Comments: <200 mg/dL Qxmfifrqr713-961 mg/dL Borderline>240 mg/dL High Risk TRIG 78 [...] :08 CBC Comments: DR BARNES ORDERED PAIGE BRAMBIAL ORDERED PT CBC CMP MPV 11.0 fL [...] CRITICAL VALUE REPEATED AND VERIFIED. CALLED TO DJRMWCT01/14/14 0756 Jeovanny Serrano.RESULTS READ BACK BY OLIVIER [...] CHOL 227 mg/dL (Abnormal) Comments: <200 mg/dL Tsflsrhzi042-278 mg/dL Borderline>240 mg/dL High Risk HDL 81 [...] CHOL 229 mg/dL (Abnormal) Comments: <200 mg/dL Qfucpeuub557-583 mg/dL Borderline>240 mg/dL High Risk :16 PT [...] Rodriguez M.D.September 21, 2012 at 11:00:07 AM [id number] Signed RU/RU If you are the referring physician and would like to consult with theradiologist who provided this interpretation, please contact Austyn Styles. at [phone]. If this radiologist is unavailable, adabe directed to another radiologist to as sist. If you are a patient with a question regarding this report, pleasecontactyour referring physician directly. Professional Interpretation Provided By: Follica, Phone ,Fax These documents contain legally protected [...] on 09/21/12 1106 Sign by: Laith Rodriguez 7-Pqs-788457:40 CUUR URC See Note (Normal) Comments: This is an amended result. A prior result that was reported as final has been changed.09/07/12 1448 by NSTANSLOSPreviously reported as: FINAL COLONY COUNT <1000 ORGANISM 1: MIXED GRAM POSITIVE ORGANISMS 6-Tdg-151929:40 LYMEWB zTLEHBNW46R Absent (Normal) tLYMWBINTM Negative (Normal) Comments: Note: [...] are those recommended byCDC/ASTPHLD. p23=Osp C , b79=tncflxzgn.Note:Sera from individuals with the following may cross reactin the Lyme Western Blot assays: other spirochetal diseases(periodontal disease, leptospirosis, relapsing fever, yaws,and pin ta); connective autoimmune (Rheumatoid Arthritis andSystemic Lupus Erythematosus and also individuals withAntinuclear Antibody); other infections (Angel MountainSpotted Fever; Desirae-Camargo Virus, and Cy tomegalovirus)..Performed at: [facility] [email or web address] [id number] Director: Juan Ontiveros MD, Phone: [phone] xGUJRSRP87Q Absent (Normal) uEUIWGLR32K Absent (Normal) eSHXTRLJ69Q Absent (Normal) dGTDFKZU37E Absent (Normal) tLYMWBINTG Negative (Normal) Comments: Positive: 5 of the followingBorrelia- specific bands:18,23,28,30,39,41,45,58,66, and 93.Negative: No bands or bandingpatterns which do notmeet positive criteria. dPMXYUZO17N Absent (Normal) zTBLEGRG19Q Absent (Normal) gLCPEBHO33A Absent (Normal) lMDCAMRW22Y Present (Abnormal) lDGBOIUQ35W Absent (Normal) xJCPGAGG51E Absent (Normal) uPFZVDBN19E Absent (Normal) gPSWBXHL71S Absent (Normal) :03 PT INR 2.9 (Normal) PTP 28.1 s (Abnormal) Range: 11.9-14.4 59-Smd-107323:12 Microscopic Examination Comments: PATIENT NOT FASTINGPERFORMED BY: [facility] [id number] Bacteria Few (Normal) Mucus Threads Present (Normal) Epithelial Cells (non renal) 0-10 {/hpf} (Normal) Range: 0 - 10 RBC None seen {/hpf} (Normal) Range: 0 - 3 WBC None seen {/hpf} (Normal) Range: 0 - 5 24-Rwm-279492:12 Lyme Disease Antibody W/ Comments: PATIENT NOT FASTINGPERFORMED BY: [facility] Expressox RoadDublin [place] [id number] Reflex ([id number]) Lyme Ab Interp.,EIA Negative (Normal) Lyme IgG/IgM Ab <0.91 {index} (Normal) Range: 0.00-0.90 Comments: Negative <0.91 Equivocal 0.91 - 1.09 Positive >1.09 Note: The [facility] advises that Western blot testing be performed following all equivocal or positive EIA results. Final diagnosis should include appropriate clinical findi ngs and a positive EIA which is also positive by Western blot. :12 SED RATE ERYTHROCYTE (09680) Comments: PATIENT NOT FASTINGPERFORMED BY: [email or web address] [id number] Sedimentation Rate-Westergren 2 mm/h (Normal) Range: 0-40 :12 C-REACTIVE PROTEIN (31598) Comments: PATIENT NOT FASTINGPERFORMED BY: [email or web address] [id number] C-Reactive Protein, Quant 0.7 mg/L (Normal) Range: 0.0-4.9 :12 URINALYSIS, W/ MICRO (05200) Comments: PATIENT NOT FASTINGPERFORMED BY: [email or web address] [facility] [id number] Microscopic Examination See below: (Normal) Nitrite, Urine Negative (Normal) Urobilinogen,Semi-Qn 0.2 mg/dL (Normal) Range: 0.0-1.9 Bilirubin Negative (Normal) Occult Blood Negative (Normal) Ketones 3+ (Abnormal) Glucose Negative (Normal) Protein 1+ (Abnormal) WBC Esterase Negative (Normal) Appearance Clear (Normal) Urine-Color Yellow (Normal) pH 6.0 (Normal) Range: 5.0-7.5 Specific [place] 1.025 (Normal) Range: 1.005-1.030 :12 TSH (40065) Comments: PATIENT NOT FASTINGPERFORMED BY: [facility] [facility] [id number] TSH 2.400 {uIU/mL} (Normal) Range: 0.450-4.500 60-Dyh-438811:12 METABOLIC PANEL, COMPREHENSIVE Comments: PATIENT NOT FASTINGPERFORMED BY: [email or web address]6[address] [facility] [id number] (93379) ALT (SGPT) 19 [iU]/L (Normal) Range: 0-32 [...] Glucose, Serum 91 mg/dL (Normal) Range: 65-99 46-Cbz-305961:12 CBC WITH MANUAL DIFF Comments: PATIENT NOT FASTINGPERFORMED BY: [facility] [facility] [id number] Information: [id number] ([id number]) Immature Grans (Abs) 0.0 {x10E3/uL} (Normal) Range: [...] D deficiency has been defined by the [place] of[place]icine and an Endocrine Society practice guideline as alevel of serum 25-OH vitamin D less than 20 ng/mL (1,2).The Endocrine Society went on to further define vitamin Dinsufficiency as a level between 21 and 29 ng/mL (2).1. IOM ([place] of [employer]). 2010. Dietary reference intakes for calcium and D. [place]: The National Academies Press.2. Ana MF, Heriberto NC, Jayla BECKFORD, et al. Evaluation, treatment, and prevention of vitamin D deficiency: an Endocrine Society clinical practice guideline. JCEM. 2010; 96(7): 1911-30.Performed at: [facility] [id number] Director: Narendra Covarrubias PhD, Phone: [phone] Plan of Care Name Dates Details Instructions [...] Planned Observations CBC, Platelets & Auto Diff ([id number])Indication: Leukopenia On: : Request CBC, Platelets & Auto Diff ([id number])Indication: Leukopenia On: Request CBC, Platelets & Auto Diff ([id number])Indication: Leukopenia On: 13-Mar-2042 Request CBC, Platelets & Auto Diff ([id number])Indication: Leukopenia On: : Request CBC, Platelets & Auto Diff ([id number])Indication: Leukopenia On: Request CBC, Platelets & Auto Diff ([id number])Indication: Leukopenia On: Request CBC, Platelets & Auto Diff ([id number])Indication: Leukopenia On: 18-Mar-2041 Request CBC, Platelets & Auto Diff ([id number])Indication: Leukopenia On: Request CBC, Platelets & Auto Diff ([id number])Indication: Leukopenia On: : Request CBC, Platelets & Auto Diff ([id number])Indication: Leukopenia On: Request CBC, Platelets & Auto Diff ([id number])Indication: Leukopenia On: 23-Mar-2040 Request CBC, Platelets & Auto Diff ([id number])Indication: Leukopenia On: :00 Request CBC, Platelets & Auto Diff ([id number])Indication: Leukopenia On: :00 Request CBC, Platelets & Auto Diff ([id number])Indication: Leukopenia On: :00 Request CBC, Platelets & Auto Diff ([id number])Indication: Leukopenia On: 29-Mar-2039 Request CBC, Platelets & Auto Diff ([id number])Indication: Leukopenia On: : Request CBC, Platelets & Auto Diff ([id number])Indication: Leukopenia On: : Request CBC, Platelets & Auto Diff ([id number])Indication: Leukopenia On: : Request CBC, Platelets & Auto Diff ([id number])Indication: Leukopenia On: 03-Apr-2038 Request CBC, Platelets & Auto Diff ([id number])Indication: Leukopenia On: :00 Request CBC, Platelets & Auto Diff ([id number])Indication: Leukopenia On: :00 Request CBC, Platelets & Auto Diff ([id number])Indication: Leukopenia On: :00 Request CBC, Platelets & Auto Diff ([id number])Indication: Leukopenia On: 08-Apr-2037 Request CBC, Platelets & Auto Diff ([id number])Indication: Leukopenia On: :00 Request CBC, Platelets & Auto Diff ([id number])Indication: Leukopenia On: :00 Request CBC, Platelets & Auto Diff ([id number])Indication: Leukopenia On: :00 Request CBC, Platelets & Auto Diff ([id number])Indication: Leukopenia On: 13-Apr-2036 Request CBC, Platelets & Auto Diff ([id number])Indication: Leukopenia On: :00 Request CBC, Platelets & Auto Diff ([id number])Indication: Leukopenia On: :00 Request CBC, Platelets & Auto Diff ([id number])Indication: Leukopenia On: :00 Request CBC, Platelets & Auto Diff ([id number])Indication: Leukopenia On: 19-Apr-2035 Request CBC, Platelets & Auto Diff ([id number])Indication: Leukopenia On: :00 Request CBC, Platelets & Auto Diff ([id number])Indication: Leukopenia On: :00 Request CBC, Platelets & Auto Diff ([id number])Indication: Leukopenia On: : Request CBC, Platelets & Auto Diff ([id number])Indication: Leukopenia On: 24-Apr-2034 Request CBC, Platelets & Auto Diff ([id number])Indication: Leukopenia On: : Request CBC, Platelets & Auto Diff ([id number])Indication: Leukopenia On: : Request CBC, Platelets & Auto Diff ([id number])Indication: Leukopenia On: : Request CBC, Platelets & Auto Diff ([id number])Indication: Leukopenia On: 29-Apr-2033 Request CBC, Platelets & Auto Diff ([id number])Indication: Leukopenia On: :00 Request CBC, Platelets & Auto Diff ([id number])Indication: Leukopenia On: : Request CBC, Platelets & Auto Diff ([id number])Indication: Leukopenia On: :00 Request CBC, Platelets & Auto Diff ([id number])Indication: Leukopenia On: 04-May-2032 Request CBC, Platelets & Auto Diff ([id number])Indication: Leukopenia On: :00 Request CBC, Platelets & Auto Diff ([id number])Indication: Leukopenia On: :00 Request CBC, Platelets & Auto Diff ([id number])Indication: Leukopenia On: :00 Request CBC, Platelets & Auto Diff ([id number])Indication: Leukopenia On: 10-May-2031 Request CBC, Platelets & Auto Diff ([id number])Indication: Leukopenia On: 09-Feb-2031 Request CBC, Platelets & Auto Diff ([id number])Indication: Leukopenia On: :00 Request CBC, Platelets & Auto Diff ([id number])Indication: Leukopenia On: : Request CBC, Platelets & Auto Diff ([id number])Indication: Leukopenia On: 15-May-2030 Request CBC, Platelets & Auto Diff ([id number])Indication: Leukopenia On: 14-Feb-2030 Request CBC, Platelets & Auto Diff ([id number])Indication: Leukopenia On: :00 Request CBC, Platelets & Auto Diff ([id number])Indication: Leukopenia On: :00 Request CBC, Platelets & Auto Diff ([id number])Indication: Leukopenia On: 20-May-2029 Request CBC, Platelets & Auto Diff ([id number])Indication: Leukopenia On: 19-Feb-2029 Request CBC, Platelets & Auto Diff ([id number])Indication: Leukopenia On: :00 Request CBC, Platelets & Auto Diff ([id number])Indication: Leukopenia On: : Request CBC, Platelets & Auto Diff ([id number])Indication: Leukopenia On: 25-May-2028 Request CBC, Platelets & Auto Diff ([id number])Indication: Leukopenia On: 25-Feb-2028 Request CBC, Platelets & Auto Diff ([id number])Indication: Leukopenia On: :00 Request CBC, Platelets & Auto Diff ([id number])Indication: Leukopenia On: :00 Request CBC, Platelets & Auto Diff ([id number])Indication: Leukopenia On: 31-May-2027 Request CBC, Platelets & Auto Diff ([id number])Indication: Leukopenia On: 02-Mar-2027 Request CBC, Platelets & Auto Diff ([id number])Indication: Leukopenia On: :00 Request CBC, Platelets & Auto Diff ([id number])Indication: Leukopenia On: :00 Request CBC, Platelets & Auto Diff ([id number])Indication: Leukopenia On: 05-Jun-2026 Request CBC, Platelets & Auto Diff ([id number])Indication: Leukopenia On: 07-Mar-2026 Request CBC, Platelets & Auto Diff ([id number])Indication: Leukopenia On: :00 Request CBC, Platelets & Auto Diff ([id number])Indication: Leukopenia On: :00 Request CBC, Platelets & Auto Diff ([id number])Indication: Leukopenia On: 10-Jun-2025 Request CBC, Platelets & Auto Diff ([id number])Indication: Leukopenia On: 12-Mar-2025 Request CBC, Platelets & Auto Diff ([id number])Indication: Leukopenia On: :00 Request CBC, Platelets & Auto Diff ([id number])Indication: Leukopenia On: :00 Request CBC, Platelets & Auto Diff ([id number])Indication: Leukopenia On: :00 Request CBC, Platelets & Auto Diff ([id number])Indication: Leukopenia On: 17-Mar-2024 Request CBC, Platelets & Auto Diff ([id number])Indication: Leukopenia On: :00 Request CBC, Platelets & Auto Diff ([id number])Indication: Leukopenia On: : Request CBC, Platelets & Auto Diff ([id number])Indication: Leukopenia On: : Request CBC, Platelets & Auto Diff ([id number])Indication: Leukopenia On: 23-Mar-2023 Request CBC, Platelets & Auto Diff ([id number])Indication: Leukopenia On: : Request CBC, Platelets & Auto Diff ([id number])Indication: Leukopenia On: :00 Request CBC, Platelets & Auto Diff ([id number])Indication: Leukopenia On: :00 Request CBC, Platelets & Auto Diff ([id number])Indication: Leukopenia On: 28-Mar-2022 Request CBC, Platelets & Auto Diff ([id number])Indication: Leukopenia On: :00 Request CBC, Platelets & Auto Diff ([id number])Indication: Leukopenia On: :00 Request CBC, Platelets & Auto Diff ([id number])Indication: Leukopenia On: :00 Request CBC, Platelets & Auto Diff ([id number])Indication: Leukopenia On: 02-Apr-2021 Request CBC, Platelets & Auto Diff ([id number])Indication: Leukopenia On: :00 Request CBC, Platelets & Auto Diff ([id number])Indication: Leukopenia On: :00 Request CBC, Platelets & Auto Diff ([id number])Indication: Leukopenia On: :00 Request CBC, Platelets & Auto Diff ([id number])Indication: Leukopenia On: 07-Apr-2020 Request CBC, Platelets & Auto Diff ([id number])Indication: Leukopenia On: 08-Jan-2020 Request CBC, Platelets & Auto Diff ([id number])Indication: Leukopenia On: 10-Oct-2019 Request CBC, Platelets & Auto Diff ([id number])Indication: Leukopenia On: 12-Jul-2019 Request CBC, Platelets & Auto Diff ([id number])Indication: Leukopenia On: 13-Apr-2019 Request CBC, Platelets & Auto Diff ([id number])Indication: Leukopenia On: 13-Jan-2019 Request CBC, Platelets & Auto Diff ([id number])Indication: Leukopenia On: 15-Oct-2018 Request CBC, Platelets & Auto Diff ([id number])Indication: Leukopenia On: 17-Jul-2018 Request PT (Prothrobim Time) ([id number])Indication: Anticoagulated on Coumadin On: 23-May-2018 Request PT (Prothrobim Time) ([id number])Indication: Anticoagulated on Coumadin On: 16-May-2018 Request PT (Prothrobim Time) ([id number])Indication: Anticoagulated on Coumadin On: 09-May-2018 Request PT (Prothrobim Time) ([id number])Indication: Anticoagulated on Coumadin On: 02-May-2018 Request PT (Prothrobim Time) ([id number])Indication: Anticoagulated on Coumadin On: 25-Apr-2018 Request CBC, Platelets & Auto Diff ([id number])Indication: Leukopenia On: 18-Apr-2018 Request PT (Prothrobim Time) ([id number])Indication: Anticoagulated on Coumadin On: 18-Apr-2018 Request PT (Prothrobim Time) ([id number])Indication: Anticoagulated on Coumadin On: 11-Apr-2018 Request PT (Prothrobim Time) ([id number])Indication: Anticoagulated on Coumadin On: 04-Apr-2018 Request PT (Prothrobim Time) ([id number])Indication: Anticoagulated on Coumadin On: 28-Mar-2018 Request PT (Prothrobim Time) ([id number])Indication: Anticoagulated on Coumadin On: 21-Mar-2018 Request PT (Prothrobim Time) ([id number])Indication: Anticoagulated on Coumadin On: 14-Mar-2018 Request PT (Prothrobim Time) ([id number])Indication: Anticoagulated on Coumadin On: 07-Mar-2018 Request PT (Prothrobim Time) ([id number])Indication: Anticoagulated on Coumadin On: 28-Feb-2018 Request PT (Prothrobim Time) ([id number])Indication: Anticoagulated on Coumadin On: 21-Feb-2018 Request PT (Prothrobim Time) ([id number])Indication: Anticoagulated on Coumadin On: 14-Feb-2018 Request YURIY (ANTINUCLEAR ANTIBODY) ([id number])Indication: Leukopenia On: 3-Pdj-801732:30 Request Comments: give lab slips UPEP ([id number])Indication: Leukopenia On: 1-Fez-262874:30 Request Comments: give lab slips SPEP ([id number])Indication: Leukopenia On: 3-Axx-704773:29 Request Comments: give lab slips PT (Prothrobim Time) ([id number])Indication: Anticoagulated on Coumadin On: 07-Feb-2018 Request PT (Prothrobim Time) ([id number])Indication: Anticoagulated on Coumadin On: 31-Jan-2018 Request PT (Prothrobim Time) ([id number])Indication: Anticoagulated on Coumadin On: 24-Jan-2018 Request PT (Prothrobim Time) ([id number])Indication: Anticoagulated on Coumadin On: 17-Jan-2018 Request PT (Prothrobim Time) ([id number])Indication: Anticoagulated on Coumadin On: 10-Jan-2018 Request PT (Prothrobim Time) ([id number])Indication: Anticoagulated on Coumadin On: 03-Jan-2018 Request PT (Prothrobim Time) ([id number])Indication: Anticoagulated on Coumadin On: 27-Dec-2017 Request PT (Prothrobim Time) ([id number])Indication: Anticoagulated on Coumadin On: 20-Dec-2017 Request BILIRUBIN, TOTAL ([id number])Indication: Encounter for screening for lipid disorder On: 07-Lli-084478:28 Request BILIRUBIN, DIRECT ([id number])Indication: Encounter for screening for lipid disorder On: 50-Ozc-376472:28 Request CBC, PLATELETS & AUT DIFF ([id number])Indication: Encounter for screening for lipid disorder On: 94-Dlz-864265:47 Request Metabolic Panel, Comprehensive ([id number])Indication: Encounter for screening for lipid disorder On: 58-Tox-69818:10 Request CBC & PLATELETS (AUTO) ([id number])Indication: Encounter for screening for lipid disorder On: 49-Bky-53694:10 Request LIPID PANEL ([id number])Indication: Encounter for screening for lipid disorder On: 40-Twc-79912:09 Request PT (Prothrobim Time) ([id number])Indication: Anticoagulated on Coumadin On: 13-Dec-2017 Request PT (Prothrobim Time) ([id number])Indication: Anticoagulated on Coumadin On: 06-Dec-2017 Request PT (Prothrobim Time) ([id number])Indication: Anticoagulated on Coumadin On: 29-Nov-2017 Request PT (Prothrobim Time) ([id number])Indication: Anticoagulated on Coumadin On: 22-Nov-2017 Request PT (Prothrobim Time) ([id number])Indication: Anticoagulated on Coumadin On: 15-Nov-2017 Request PT (Prothrobim Time) ([id number])Indication: Anticoagulated on Coumadin On: 08-Nov-2017 Request PT (Prothrobim Time) ([id number])Indication: Anticoagulated on Coumadin On: 01-Nov-2017 Request PT (Prothrobim Time) ([id number])Indication: Anticoagulated on Coumadin On: 25-Oct-2017 Request PT (Prothrobim Time) ([id number])Indication: Anticoagulated on Coumadin On: 18-Oct-2017 Request PT (Prothrobim Time) ([id number])Indication: Anticoagulated on Coumadin On: 11-Oct-2017 Request PT (Prothrobim Time) ([id number])Indication: Anticoagulated on Coumadin On: 04-Oct-2017 Request PT (Prothrobim Time) ([id number])Indication: Anticoagulated on Coumadin On: 27-Sep-2017 Request PT (Prothrobim Time) ([id number])Indication: Anticoagulated on Coumadin On: 20-Sep-2017 Request PT (Prothrobim Time) ([id number])Indication: Anticoagulated on Coumadin On: 13-Sep-2017 Request PT (Prothrobim Time) ([id number])Indication: Anticoagulated on Coumadin On: 06-Sep-2017 Request PT (Prothrobim Time) ([id number])Indication: Anticoagulated on Coumadin On: 30-Aug-2017 Request PT (Prothrobim Time) ([id number])Indication: Anticoagulated on Coumadin On: 23-Aug-2017 Request PT (Prothrobim Time) ([id number])Indication: Anticoagulated on Coumadin On: 16-Aug-2017 Request PT (Prothrobim Time) ([id number])Indication: Anticoagulated on Coumadin On: 09-Aug-2017 Request PT (Prothrobim Time) ([id number])Indication: Anticoagulated on Coumadin On: 02-Aug-2017 Request PT (Prothrobim Time) ([id number])Indication: Anticoagulated on Coumadin On: 26-Jul-2017 Request PT (Prothrobim Time) ([id number])Indication: Anticoagulated on Coumadin On: 19-Jul-2017 Request PT (Prothrobim Time) ([id number])Indication: Anticoagulated on Coumadin On: 12-Jul-2017 Request PT (Prothrobim Time) ([id number])Indication: Anticoagulated on Coumadin On: 05-Jul-2017 Request PT (Prothrobim Time) ([id number])Indication: Anticoagulated on Coumadin On: 28-Jun-2017 Request PT (Prothrobim Time) ([id number])Indication: Anticoagulated on Coumadin On: 21-Jun-2017 Request PT (Prothrobim Time) ([id number])Indication: Anticoagulated on Coumadin On: 14-Jun-2017 Request PT (Prothrobim Time) ([id number])Indication: Anticoagulated on Coumadin On: 07-Jun-2017 Request PT (Prothrobim Time) ([id number])Indication: Anticoagulated on Coumadin On: 31-May-2017 Request PT (Prothrobim Time) ([id number])Indication: Anticoagulated on Coumadin On: 25-May-2017 Request PT (Prothrobim Time) ([id number])Indication: Anticoagulated on Coumadin On: 25-May-2017 Request PT (Prothrobim Time) ([id number])Indication: Anticoagulated on Coumadin On: 24-May-2017 Request PT (Prothrobim Time) ([id number])Indication: Anticoagulated on Coumadin On: 17-May-2017 Request PT (Prothrobim Time) ([id number])Indication: Anticoagulated on Coumadin On: 10-May-2017 Request PT (Prothrobim Time) ([id number])Indication: Anticoagulated on Coumadin On: 03-May-2017 Request PT (Prothrobim Time) ([id number])Indication: Anticoagulated on Coumadin On: 26-Apr-2017 Request PT (Prothrobim Time) ([id number])Indication: Anticoagulated on Coumadin On: 25-Apr-2017 Request PT (Prothrobim Time) ([id number])Indication: Anticoagulated on Coumadin On: 25-Apr-2017 Request PT (Prothrobim Time) ([id number])Indication: Anticoagulated on Coumadin On: 19-Apr-2017 Request PT (Prothrobim Time) ([id number])Indication: Anticoagulated on Coumadin On: 12-Apr-2017 Request PT (Prothrobim Time) ([id number])Indication: Anticoagulated on Coumadin On: 05-Apr-2017 Request PT (Prothrobim Time) ([id number])Indication: Anticoagulated on Coumadin On: 29-Mar-2017 Request PT (Prothrobim Time) ([id number])Indication: Anticoagulated on Coumadin On: 26-Mar-2017 Request PT (Prothrobim Time) ([id number])Indication: Anticoagulated on Coumadin On: 26-Mar-2017 Request PT (Prothrobim Time) ([id number])Indication: Anticoagulated on Coumadin On: 22-Mar-2017 Request PT (Prothrobim Time) ([id number])Indication: Anticoagulated on Coumadin On: 15-Mar-2017 Request PT (Prothrobim Time) ([id number])Indication: Anticoagulated on Coumadin On: 08-Mar-2017 Request PT (Prothrobim Time) ([id number])Indication: longterm (current) use of anticoagulants (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) On: 57-Plq-655053:48 Request Comments: Standing order PT (Prothrobim Time) ([id number])Indication: Anticoagulated on Coumadin On: 01-Mar-2017 Request PT (Prothrobim Time) ([id number])Indication: Anticoagulated on Coumadin On: 24-Feb-2017 Request PT (Prothrobim Time) ([id number])Indication: Anticoagulated on Coumadin On: 24-Feb-2017 Request PT (Prothrobim Time) ([id number])Indication: Anticoagulated on Coumadin On: 22-Feb-2017 Request PT (Prothrobim Time) ([id number])Indication: Anticoagulated on Coumadin On: 15-Feb-2017 Request PT (Prothrobim Time) ([id number])Indication: Anticoagulated on Coumadin On: 08-Feb-2017 Request PT (Prothrobim Time) ([id number])Indication: Anticoagulated on Coumadin On: 01-Feb-2017 Request PT (Prothrobim Time) ([id number])Indication: Anticoagulated on Coumadin On: 25-Jan-2017 Request PT (Prothrobim Time) ([id number])Indication: Anticoagulated on Coumadin On: 25-Jan-2017 Request PT (Prothrobim Time) ([id number])Indication: Anticoagulated on Coumadin On: 25-Jan-2017 Request PT (Prothrobim Time) ([id number])Indication: Anticoagulated on Coumadin On: 18-Jan-2017 Request PT (Prothrobim Time) ([id number])Indication: Anticoagulated on Coumadin On: 11-Jan-2017 Request PT (Prothrobim Time) ([id number])Indication: Anticoagulated on Coumadin On: 04-Jan-2017 Request PT (Prothrobim Time) ([id number])Indication: Anticoagulated on Coumadin On: 28-Dec-2016 Request PT (Prothrobim Time) ([id number])Indication: Anticoagulated on Coumadin On: 26-Dec-2016 Request PT (Prothrobim Time) ([id number])Indication: Anticoagulated on Coumadin On: 26-Dec-2016 Request PT (Prothrobim Time) ([id number])Indication: Anticoagulated on Coumadin On: 21-Dec-2016 Request PT (Prothrobim Time) ([id number])Indication: Anticoagulated on Coumadin On: 14-Dec-2016 Request PT (Prothrobim Time) ([id number])Indication: Anticoagulated on Coumadin On: 07-Dec-2016 Request PT (Prothrobim Time) ([id number])Indication: Anticoagulated on Coumadin On: 30-Nov-2016 Request PT (Prothrobim Time) ([id number])Indication: Anticoagulated on Coumadin On: 26-Nov-2016 Request PT (Prothrobim Time) ([id number])Indication: Anticoagulated on Coumadin On: 26-Nov-2016 Request PT (Prothrobim Time) ([id number])Indication: Anticoagulated on Coumadin On: 23-Nov-2016 Request PT (Prothrobim Time) ([id number])Indication: Anticoagulated on Coumadin On: 16-Nov-2016 Request PT (Prothrobim Time) ([id number])Indication: Anticoagulated on Coumadin On: 09-Nov-2016 Request PT (Prothrobim Time) ([id number])Indication: Anticoagulated on Coumadin On: 02-Nov-2016 Request PT (Prothrobim Time) ([id number])Indication: Anticoagulated on Coumadin On: 27-Oct-2016 Request PT (Prothrobim Time) ([id number])Indication: Anticoagulated on Coumadin On: 27-Oct-2016 Request PT (Prothrobim Time) ([id number])Indication: Anticoagulated on Coumadin On: 26-Oct-2016 Request PT (Prothrobim Time) ([id number])Indication: Anticoagulated on Coumadin On: 19-Oct-2016 Request PT (Prothrobim Time) ([id number])Indication: Anticoagulated on Coumadin On: 12-Oct-2016 Request PT (Prothrobim Time) ([id number])Indication: Anticoagulated on Coumadin On: 05-Oct-2016 Request PT (Prothrobim Time) ([id number])Indication: Anticoagulated on Coumadin On: 28-Sep-2016 Request PT (Prothrobim Time) ([id number])Indication: Anticoagulated on Coumadin On: 27-Sep-2016 Request PT (Prothrobim Time) ([id number])Indication: Anticoagulated on Coumadin On: 27-Sep-2016 Request PT (Prothrobim Time) ([id number])Indication: Anticoagulated on Coumadin On: 21-Sep-2016 Request PT (Prothrobim Time) ([id number])Indication: Anticoagulated on Coumadin On: 14-Sep-2016 Request PT (Prothrobim Time) ([id number])Indication: Anticoagulated on Coumadin On: 07-Sep-2016 Request PT (Prothrobim Time) ([id number])Indication: Anticoagulated on Coumadin On: 31-Aug-2016 Request PT (Prothrobim Time) ([id number])Indication: Anticoagulated on Coumadin On: 28-Aug-2016 Request PT (Prothrobim Time) ([id number])Indication: Anticoagulated on Coumadin On: 28-Aug-2016 Request PT (Prothrobim Time) ([id number])Indication: Anticoagulated on Coumadin On: 24-Aug-2016 Request PT (Prothrobim Time) ([id number])Indication: Anticoagulated on Coumadin On: 17-Aug-2016 Request PT (Prothrobim Time) ([id number])Indication: Anticoagulated on Coumadin On: 10-Aug-2016 Request PT (Prothrobim Time) ([id number])Indication: Anticoagulated on Coumadin On: 03-Aug-2016 Request PT (Prothrobim Time) ([id number])Indication: Anticoagulated on Coumadin On: 29-Jul-2016 Request PT (Prothrobim Time) ([id number])Indication: Anticoagulated on Coumadin On: 29-Jul-2016 Request PT (Prothrobim Time) ([id number])Indication: Anticoagulated on Coumadin On: 27-Jul-2016 Request PT (Prothrobim Time) ([id number])Indication: Anticoagulated on Coumadin On: 20-Jul-2016 Request PT (Prothrobim Time) ([id number])Indication: Anticoagulated on Coumadin On: 13-Jul-2016 Request PT (Prothrobim Time) ([id number])Indication: Anticoagulated on Coumadin On: 06-Jul-2016 Request Metabolic Panel, Comprehensive ([id number])Indication: Irritable Bowel Syndrome On: 39-Nfn-158060:28 Request TSH ([id number])Indication: Irritable Bowel Syndrome On: 08-Fug-102359:28 Request CBC, Platelets & Auto Diff ([id number])Indication: Irritable Bowel Syndrome On: 72-Iiv-977872:28 Request PT (Prothrobim Time) ([id number])Indication: Anticoagulated on Coumadin On: 80-Oyk-512578:24 Request PT (Prothrobim Time) ([id number])Indication: DVT (deep venous thrombosis) On: 86-Bnc-291212:11 Request Comments: INR - STANDING ORDER Vitamin D Hydroxy ([id number])Indication: Osteoporosis On: 30-Jew-819945:16 Request TSH ([id number])Indication: Osteoporosis On: :16 Request CBC with auto diff ([id number])Indication: Benign Essential Hypertension On: 89-Ycv-646604:16 Request METABOLIC PANEL, COMPREHENSIVE ([id number])Indication: Benign Essential Hypertension On: 59-Csb-288886:16 Request LIPID PANEL ([id number])Indication: Hyperlipidemia On: :16 Request CBC W/AUTO DIFF WBC ([id number])Indication: Benign Essential Hypertension On: :34 Request METABOLIC PANEL, COMPREHENSIVE ([id number])Indication: Benign Essential Hypertension On: :34 Request TSH ([id number])Indication: Osteoporosis On: :39 Request CBC W/AUTO DIFF WBC ([id number])Indication: Osteoporosis On: :39 Request LIPID PANEL ([id number])Indication: Hyperlipidemia On: :38 Request METABOLIC PANEL, COMPREHENSIVE ([id number])Indication: Benign Essential Hypertension On: :38 Request PT (Prothrobim Time) ([id number])Indication: DVT (deep venous thrombosis) On: 1-Xpf-066047:18 Request Comments: FINGER STICKSTANDING ORDER PT (Prothrobim Time) ([id number])Indication: DVT (deep venous thrombosis) On: 17-Tqz-121890:28 Request Comments: Standing Order URINALYSIS, W/ MICRO ([id number])Indication: Benign Essential Hypertension On: :37 Request METABOLIC PANEL, COMPREHENSIVE ([id number])Indication: Benign Essential Hypertension On: :37 Request LIPID PANEL ([id number])Indication: Hyperlipidemia On: :37 Request CBC W/AUTO DIFF WBC ([id number])Indication: DVT (deep venous thrombosis) On: :37 Request PT (Prothrobim Time) ([id number])Indication: DVT (deep venous thrombosis) On: 87-Xbr-483402:02 Request CBC WITH MANUAL DIFF ([id number])Indication: Benign Essential Hypertension On: :39 Request METABOLIC PANEL, COMPREHENSIVE ([id number])Indication: Hyperlipidemia On: :39 Request LIPID PANEL ([id number])Indication: Hyperlipidemia On: :39 Request PT (Prothrobim Time) ([id number])Indication: DVT (deep venous thrombosis) On: :07 Request Comments: pls call natural remedy consultant Dr Hunter with results on 05/20/13 PT (Prothrobim Time) ([id number])Indication: DVT (deep venous thrombosis) On: 08-Pxc-643729:00 Request Comments: Standing Order PT (Prothrobim Time) ([id number])Indication: DVT (deep venous thrombosis) On: 46-Oik-22093:59 Request Comments: INR - STANDING ORDER x 1 year URINALYSIS, W/ MICRO ([id number])Indication: Benign Essential Hypertension On: :15 Request CBC WITH MANUAL DIFF ([id number])Indication: Benign Essential Hypertension On: :15 Request METABOLIC PANEL, COMPREHENSIVE ([id number])Indication: Benign Essential Hypertension On: :14 Request LIPID PANEL ([id number])Indication: Hyperlipidemia On: :14 Request METABOLIC PANEL, COMPREHENSIVE ([id number])Indication: Benign Essential Hypertension On: 70-Zvx-36247:06 Request LIPID PANEL ([id number])Indication: Hyperlipidemia On: 01-Mbu-52749:06 Request URINE HANNAH CULTURE-IDENTIFICATN ([id number])Indication: Urinary frequency On: 07-Sep-20128:56 Request URINE HANNAH CULTURE-IDENTIFICATN ([id number])Indication: Insect bite On: 24-Rcx-981276:19 Request Lyme Disease,Serum, Western Blot ([id number])Indication: Insect bite On: 61-Lsn-291913:19 Request PT (Prothrobim Time) ([id number])Indication: DVT (deep venous thrombosis) On: 87-Fgp-440250:59 Request Comments: standing order LIPID PANEL ([id number])Indication: FAMILY HISTORY OF ISCHEMIC HEART DISEASE On: 29-Jck-424002:28 Request LIPID PANEL ([id number])Indication: FAMILY HISTORY OF ISCHEMIC HEART DISEASE On: 5-Tze-782338:51 Request Vitamin D Hydroxy ([id number])Indication: Osteoporosis On: :18 Request TSH ([id number])Indication: Osteoporosis On: 8-Yzn-196520:18 Request URINALYSIS, W/ MICRO ([id number])Indication: Osteoporosis On: :18 Request CBC WITH MANUAL DIFF ([id number])Indication: Osteoporosis On: :18 Request METABOLIC PANEL, COMPREHENSIVE ([id number])Indication: Osteoporosis On: :18 Request PTT (Activated Partial Thromboplastin Time) ([id number])Indication: DVT (deep venous thrombosis) On: :16 Request PT (Prothrobim Time) ([id number])Indication: DVT (deep venous thrombosis) On: :16 Request Planned Encounters Medical; 3 Month FU - On: 17-May-2018 8:30 [facility] Riddhiraul DAVIES Brenda Johnnie DAVIES, Brenda Planned Procedures DOPPLER ULTRASOUND OF LEFT LOWER On: 14-Feb-2018 Intent EXTREMITY FOR VENOUS THROMBOEMBOLISM Comments: STAT R/O DVT-Hx of DVT ([id number])By: Sigrid Mobley DEXA SCAN AXIAL SKELETON ([id number])By: On: 17-Dec-2017 Intent Selam Blair CNP E Johnnie DAVIES, Brenda Aerosol Treatment ([id number])By: Johnnie On: 02-Jun-2017 Intent Selam DAVIES E Johnnie DAVIES, Brenda Ultrasound - LiverBy: Minalcuca Selam DAVIES On: 15-Dec-2016 Intent E Selam Blair CNP E Aerosol Treatment ([id number])By: Johnnie On: 13-Oct-2016 Intent Selam DAVIES E Johnnie DAVIES, Brenda Aerosol Treatment ([id number])By: Aleksey On: 19-Feb-2015 Intent Eliana HOFFMANN Ultrasound - AortaBy: Helen Barnes DO On: 18-Dec-2014 Intent EKG ([id number])By: Helen Barnes DO On: 05-Nov-2014 Intent Comments: ekg showed normal sinus rhythym, normal axis, no acute st/t wave changes BILATERAL MAMMOGRAMS ([id number])By: Timothy On: 17-Sep-2014 Intent Helen B[place] Radiology - Shoulder - LeftBy: Bonezzi On: 05-Mar-2014 Intent Fatimah RANDLE Comments: if not better with PT MAMMOGRAM, SCREENING, BOTH BREASTS On: 08-Aug-2013 Intent ([id number])By: Helen Barnes DO Eprescribed prescriptions ([id number])By: On: 08-Aug-2013 Intent Helen Barnes DO DXA, BONE DENSITY, AXIAL SKELETON On: 21-Oct-2012 Intent ([id number])By: Helen Barnes DO Comments: dexa- dec Eprescribed prescriptions ([id number])By: On: 21-Oct-2012 Intent So Bailey Breast Screening - BilateralBy: Timothy On: 19-Sep-2012 Intent Helen [place] Eprescribed prescriptions ([id number])By: On: 30-Aug-2012 Intent So Bailey Spirometry ([id number])By: Helen Barnes DO On: 11-Mar-2012 Intent A Comments: good effort and curve mild obst- Doppler Ultrasound OtherBy: Timothy [place], On: 11-Mar-2012 Intent Helen Coley Comments: both legs- stat call results Eprescribed prescriptions ([id number])By: On: 11-Mar-2012 Intent So Bailey TD Injection , IM ([id number])By: Leo, On: 11-Mar-2012 Intent So Comments: 2003 FLU VAC, SPLIT, >3 YEARS, INTRAMUSC On: 11-Mar-2012 Intent ([id number])By: So Bailey Comments: got at [facility] Instructions Name Dates Details BMI 22.0-22.9, adult [...] Coumadin : DISCONTINUED - PT (PROTHROMBIN TIME) ([id number]) Indication: Anticoagulated on Coumadin Irritable Bowel Syndrome [...] Instructions Indication: Osteoporosis Encounters Phone Encounter On: 22-Feb-2018 16:30 [facility] [...] 3.3 this was repeat. 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 The patient has noticed nothing from the geriatic depression scale. Other providers contributing to the patient's care are vice president quality improvement (dr. meseret santana) and other: (eye- dr. 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 Yes the patient did have () a mini mental status exam done to [...] patient does not have durable power of field consultant or living will . The patient has noticed nothing from the geriatic depression scale. Other providers contributing to the patient's care are other: (dr crawford for eyes). Note for Annual Medicare Exam: Pt has WWE done by her WET TRIMMER.Refuses flu shotRefuses pnumonia or LymeEncounter Diagnosis: Nonsmoker, BMI 21.0-21.9, adult, Encounter for annual general medical examination with abnormal findings in adult, longterm (current) use of anticoagulants (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), Liver cyst [facility] Phone Encounter On: 09-Nov-2016 16:54 [facility] End: 09-Nov-2016 16:55 Phone Encounter On: 15-Oct-2016 12:40 Encounter Diagnosis: [place] eye End: 15-Oct-2016 12:42 [facility] [...] patient does not have durable power of field consultant. The p atient has noticed nothing from the geriatic depression scale. Other providers contributing to the patient's care are other: (ENT and dr crawford for eyes). Note for Annual Medicare Exam: Pt has WWE done by her WET TRIMMER., [ADDITIONAL REASON] Follow up for chronic medical [...] cyst is gone- - still fluid in [place] and calcification- going to have D?C- [...] dz). Patient has been compliant with instructions. Elena End: 19-Sep-2014 6:56 t medication use: no [...] dz). Patient has been compliant with instructions. Elena End: 13-Feb-2014 9:08 t medication use: no [...] diet and still seeing lyme specialist in [place]- her weight comeing down and exercsing more [...] with Lyme dz symptoms- pt went to [place] and had lyme dz treatment-), has End: [...] chronic medical issues: seeing lyme specialist in [place] and on meds for this and [place]- [...]
--- OUTSIDE RECORDS SUMMARY | 2018-06-24 14:28 | XMS RPT_ITS | Continuity of Care Document ---
:1950 Author Organization [facility] Address [address] [facility] [address] [place] [address] Phone Care Team Providers Name Role Phone [...] in [address] Status: Active halfway (current) use of anticoagulants (Renamed from halfway current use of anticoagulant therapy) (Z79.01, V58.61) [...] Latif Start : 13-Sep-2017 Active Calcium 1200 5447-5762 MG-UNIT Oral Tablet Chewable daily (8820-3934 MG-UNIT) Active Cinnamon 500 MG Oral Capsule [...] Quantity: 30 {Tablet} Refills: 1 Ordered:17-Dec-2017 Johnnie BUNG DRIVER, Selam Taveras BUNG DRIVER, Selam Latif Start : 17-Dec-2017 Active [...] 500MG (Oral Tablet) 1 (one) Tablet bid t85qclp for 10 days Quantity: 20 {Tablet} Refills: [...] Refills: 0 Ordered:02-Jun-2017 Johnnie DAVIES, Selam Taveras BUNG DRIVER, Selam Latif Start : 02-Jun-2017 End [...] (M85.80, 733.90) Status: Inactive as of 11-Mar-2012 [place] eye (H10.029, 372.03) Status: Inactive as of [...] Status: Resolved as of 21-Oct-2012 Vaccine for lfjmaxotmx-llxrgdb-bzcsoprxq with poliomyelitis (Z23, V06.3) Status: Inactive as of 21-Oct-2012 Procedures Procedure Dates Details Appendectomy Completed D&C Completed Comments: Tonsillectomy Completed Tubal Ligation Completed Date Value Details 23-Dec-2017 Dexa Bone Density Study Result: Comments: See Note; NOTES: [facility] Imaging Services [address] [place] [address] Dexa Bone Density Study MR#: [id number] Acct: [id number] Name: YAHAIRA BRYANT #: [id number] : 1950 F 67 From: Cole Coronado MD PCP: Selam Blair NP Status: REG CLI Study: Dexa Bone Density Study Date of Exam: 12/23/17 Exam# [id number] Ordering Dr: Selam Blair STUDY: DUAL ENERGY [...] Cole Coronado MD at 8:50 EDT Tel [phone], Service support , CC: Selam Blair NP Rubber Covering Machine Operator: Signed 07-Oct-2017 SCREENING MAMM (CAD), BILAT Result: Comments: See Note; NOTES: [facility] Imaging Services [address] [place] [address] SCREENING MAMM (CAD), BILAT MR#: [id number] Acct: [id number] Name: YAHAIRA BRYANT Rep #: [id number] : 1950 F 67 From: Cole Coronado MD PCP: Selam Blair NP Status: REG CLI Study: SCREENING MAMM (CAD), BILAT Date of Exam: 10/07/17 Exam# [id number] Ordering Dr: Aliza Santana MD MAMMOGRAPHY - [...] delay biopsy of a clinically suspicious abnormality. [id number] Electronically Signed: Cole Coronado MD at 11:23 EDT Tel [phone], Service support , CC: Selam Blair NP; Aliza Santana MD Rubber Covering Machine Operator: Signed 23-Sep-2017 Downtime Report Result: Comments: See Note; NOTES: [facility] Medical Records Department [address] [place] [address] Downtime Report MR#: [id number] Acct: [id number] Name: YAHAIRA BRYANT Rep #: [id number] : 1950 67 From: Jered Kumar PCP: Selam Blair NP Status: REG CLI This patient was seen during an EMR downtime September 06, 2017 - September 13, 2017. This patient may have a combination of p aper and electronic documentation or all paper documentation. All documentation is viewable within the e-chart portion of [employer] for each patient visit. 16-Dec-2016 Liver Result: Comments: See Note; NOTES: [facility] Imaging Services [address] [place] [address] Liver MR#: [id number] Acct: [id number] Name: YAHAIRA BRYANT Rep #: [id number] : 1950 F 66 From: Jose Mcghee MD PCP: Selam Blair Status: REG CLI Study: Liver Date of Exam: 12/16/16 Exam# [id number] Ordering Dr: Selam Blair STUDY: ABDOMINAL ULTRASOUND [...] MD at 16:28 EDT , Service support [phone], CC: Selam Blair Rubber Covering Machine Operator: Signed 21-Dec-2014 Aorta Result: Comments: See Note; NOTES: [facility] Imaging Services [address] [place] [address] Ultrasound Report MR#: [id number] Acct: [id number] Name: YAHAIRA BRYANT Rep #: [id number] : 1950 F 64 From: Cole Coronado MD PCP: Helen Barnes DO Status: REG CLI Study: Aorta Date of Exam: 12/21/14 Exam# [id number] Ordering Dr: Helen Barnes DO PROCEDURES: ULTRASOUN [...] Cole Coronado MD at 9:45 EDT Tel [phone], Service support [phone], CC: Helen Barnes DO Rubber Covering Machine Operator: Signed 12-Dec-2014 Bilat Scrn Digital AND CAD Result: Comments: See Note; NOTES: [facility] Imaging Services [address] [place] [address] Breast Imaging Report MR#: [id number] Acct: [id number] Name: YAHAIRA BRYANT Rep # : [id number] : 1950 F 64 From: Gabino South MD PCP: Helen Barnes DO Status: REG CLI Study: Bilat Scrn Digital AND CAD Date of Exam: 12/12/14 Exam# [id number] Ordering Dr: Helen Barnes DO M AMMOGRAPHY [...] at 14:51 EDT Tel , Service support [phone], CC: Helen Barnes DO Rubber Covering Machine Operator: Signed 12-Dec-2014 Bilat Scrn Digital AND CAD Result: Comments: See Note; NOTES: [facility] Imaging Services [address] [place] [address] Breast Imaging Report MR#: [id number] Acct: [id number] Name: YAHAIRA BRYANT Rep # : [id number] : 1950 F 64 From: Gabino South MD PCP: Helen Barnes DO Status: REG CLI Study: Bilat Scrn Digital AND CAD Date of Exam: 12/12/14 Exam# [id number] Ordering Dr: Helen Barnes DO A DDENDUM by Cole Coronado MD on 12/17/14 at 1003 ADDENDUM This is an addendum report for BI -RADS category. BI-RADS category 2. Electronically Signed: Cole Coronado MD at 10:03 EDT Tel [phone], Service support [phone], 12/17/14 1003 D ate cc: Helen Barnes [...] at 14:51 EDT Tel , Service support [phone], CC: Helen Barnes DO Rubber Covering Machine Operator: Signed 03-Dec-2014 Operative Report Result: Comments: See Note; NOTES: [facility] Medical Records Department [address] [place] [address] Operative Report MR#: [id number] Acct: [id number] Name: YAHAIRA BRYANT Addi Rep #: [id number] : 1950 64 From: Aliza Santana MD PCP: Helen Barnes DO Status: [facility] DATE OF SERVICE: 11/26/2014 DATE OF SERVICE: [...] 1-2 weeks' time. Aliza Santana MD T: ESTELA JOB: [id number] 12/03/14 1321 <Electronically signed by An ne Shriner MD> Date Aliza Santana MD Cosigner Signature (If Indicated): Date CC: Aleyda Santana MD; Helen Barnes DO Date Dictated: 11/29/14918 Date Transcribed: 11/29/14918 Rubber Covering Machine Operator: Signed 26-Nov-2014 Discharge Instruction Result: Comments: See Note; NOTES: [facility] Medical Records Department [address] [facility] [place] [address] Instructions for Home/Discharge Instructions 11/26/14 1200 MR#: [id number] ct: [id number] Name: YAHAIRA BRYANT Addi Rep #: [id number] : 1950 64 From: Aliza Santana MD PCP: Helen Barnes DO Status: [place] [facility] [place] Diet: No Restrictions Discharge Activity: Return [...] Operative Report Result: Comments: See Note; NOTES: [facility] Medical Records Department [address] [place] [address] Operative Report 11/26/14 1159 MR#: [id number] Acct: [id number] Name: YAHAIRA DEJESUS R Rep #: [id number] : 1950 64 From: Aliza Santana MD PCP: Helen Barnes DO Status: REG SDC Y Location: [place] [address] Operative Report (Blank) Date of Procedure: 11/26/14 [...] MD; Helen Barnes DO Signed 05-Nov-2014 Spirometry (72683) Comments: good effort aand curve mild obstruction Result: 06-Jun-2014 Transvaginal Non- Result: Comments: See Note; NOTES: [facility] Imaging Services [address] [place] [address] Ultrasound Report MR#: [id number] Acct: [id number] Name: YAHAIRA BRYANT Rep #: [id number] : 1950 F 63 From: Telly Cruz DO PCP: Helen Barnes DO Status: REG CLI Study: Transvaginal Non- Date of Exam: 06/06/14 Exam# [id number] Ordering Dr: Izzy Becerra STUDY: ULTRASOUND TRANSVAGINAL [...] DO at 13:34 EST , Service support [phone], CC: Helen Barnes DO; Izzy Becerra MD Rubber Covering Machine Operator: Signed 06-Jun-2014 Pelvic (Non ) Result: Comments: See Note; NOTES: [facility] Imaging Services [address] [place] [address] Ultrasound Report MR#: [id number] Acct: [id number] Name: ANNETTEYAHAIRA Addi Rep #: [id number] : 1950 F 63 From: Telly Cruz DO PCP: Helen Barnes DO Status: REG CLI Study: Pelvic (Non ) Date of Exam: 06/06/14 Exam# [id number] Ordering Dr: Izzy Becerra MD STUDY: ULTRASOUND [...] DO at 13:34 EST , Service support [phone], CC: Helen Barnes DO; Izzy Becerra MD Rubber Covering Machine Operator: Signed 11-Oct-2013 Bilat Scrn Digital & CAD Result: Comments: See Note; NOTES: [facility] Imaging Services [place] [address] Breast Imaging Report MR#: [id number] Acct: [id number] Name: YAHAIRA BRYANT Rep #: [id number] : 1950 F 63 From: Bradly Lr MD PCP: Helen Barnes DO Status: REG CLI Exam# [id number] Ordering Dr: Helen Barnes DO MAMMOGRAPHY - [...] at 10:37 EDT , Servic e support [phone], CC: Helen Barnes DO Rubber Covering Machine Operator: Signed Family History Unknown Family [...] 1.56 m2 Results Date Description Value Details :17 ANTINUCLEAR ANTIBODIES DIRECT Comments: [facility] (refer to report for specific site)refer to report for address and phone number YURIY-DIRECT Negative (Normal) Comments: Performed at: [facility] [employer] [id number] Director: Jairo Sears PhD, Phone: [phone] 2-Boz-082094:17 Protein Electro.Ur-Random Comments: [facility] (refer to report for specific site)refer to report for address and phone number NOTE Comment (Normal) Comments: Protein electrophoresis scan will follow via computer,mail, or middle school spanish teacher delivery.Performed at: [facility] [employer] [id number] Director: Jairo Sears PhD, Phone: [phone] M-SPIKE,U % (Normal) Comments: NOT BSERVED GAMMA GLOB,U 15.5 % (Normal) BETA GLOB,U 33.2 % (Normal) SDRGQ-7-AFCY,U 9.5 % (Normal) UHBAY-2-UJCU,U 2.3 % (Normal) ALBUMIN,UR 39.4 % (Normal) PROTEIN,UR 8.3 mg/dL (Normal) 5-Leg-831340:17 Protein Electroph, S Comments: [facility] (refer to report for specific site)refer to report for address and phone number NOTE: Comment (Normal) Comments: The SPE pattern appears essentially unremarkable. Evidenceof monoclonal protein is not apparent.Performed at: [facility] [employer] ([place])[address] [id number] Director: Jairo Sears PhD, Phone: [phone] INTERPRETATION Comment (Normal) Comments: Protein electrophoresis scan will follow via computer,mail, or middle school spanish teacher delivery. A/G RATIO 1.6 (Normal) Range: 0.7-1.7 [...] :18 Prothrombin Time w/INR Comments: [facility] [address] [place], [address] INR 2.7 (Normal) PROTIME 28.9 s (Abnormal) Range: 11.7-14.9 :58 Bilirubin, Direct Comments: [facility] [address] [place], [place], [address] D BILI 0.18 mg/dL (Normal) Range: 0.00-0.30 :58 CBC W/Diff, Automated Comments: [facility] [address] [place], [address] Absolute Lymph 1.49 {X10_3/ul} (Normal) Range: 0.83-4.51 [...] 4.2-5.4 WBC 3.3 K/mm3 (Abnormal) Range: 4.4-11.0 76-Olk-43000:58 Total Bilirubin Comments: [facility] [address] [place], [place], [id number] T BILI 0.80 mg/dL (Normal) Range: 0.20-1.00 4-Brd-927194:14 Prothrombin Time w/INR Comments: [facility] [address] [place], [place], [address] INR 2.6 (Normal) PROTIME 27.6 s (Abnormal) Range: 11.7-14.9 07-Oly-773132:01 CBC W/Diff, Automated Comments: [facility] [address] [place], [place], [address] Absolute Lymph 1.26 {X10_3/ul} (Normal) Range: 0.83-4.51 [...] 4.2-5.4 WBC 3.3 K/mm3 (Abnormal) Range: 4.4-11.0 12-Tdx-448883:01 Comprehensive Metabolic Profil Comments: [facility] [address] [place], [place], [address] GAP 9 (Normal) Range: 5-15 CO2 28.0 [...] Comments: Please note revised GLUCOSE reference range otyqokrgd81/02/2018. 64-Yqe-539688:15 Prothrombin Time w/INR Comments: [facility] [address] [place], [place], [id number] INR 3.0 (Normal) PROTIME 31.3 s (Abnormal) Range: 11.7-14.9 :26 Prothrombin Time w/INR Comments: [place] [address] [place], [address] INR 2.8 (Normal) PROTIME 29.3 s (Abnormal) Range: 11.7-14.9 64-Gfn-353314:50 Prothrombin Time w/INR Comments: [place] [address] [place], [address] INR 2.7 (Normal) PROTIME 28.7 s (Abnormal) Range: 11.7-14.9 :35 Prothrombin Time w/INR Comments: [place] [address] [place], [address] INR 2.9 (Normal) PROTIME 30.2 s (Abnormal) Range: 11.7-14.9 :44 Prothrombin Time w/INR Comments: [place] [address] [place], [address] INR 2.9 (Normal) PROTIME 30.1 s (Abnormal) Range: 11.7-14.9 :55 Prothrombin Time w/INR Comments: [place] [address] [place], [address] INR 2.8 (Normal) PROTIME 29.4 s (Abnormal) Range: 11.7-14.9 :10 Prothrombin Time w/INR Comments: [place] [address] [place], [address] INR 2.4 (Normal) PROTIME 26.2 s (Abnormal) Range: 11.7-14.9 :09 Prothrombin Time w/INR Comments: [place] [address] [place], [address] INR 1.1 (Normal) PROTIME 14.0 s (Normal) Range: 11.7-14.9 :29 Prothrombin Time w/INR Comments: RESULT(S) PREVIOUSLY REPORTED ON MANUAL REQUISITION DURINGDOWNTIME.[facility] [address] [place], [address] INR 1.3 (Normal) PROTIME 16.4 s (Abnormal) Range: 11.7-14.9 :30 Prothrombin Time w/INR Comments: [facility] [address] [place], [address] INR 2.0 (Normal) PROTIME 22.9 s (Abnormal) Range: 11.7-14.9 :01 Prothrombin Time w/INR Comments: [place] [address] [place], [address] INR 1.5 (Normal) PROTIME 18.0 s (Abnormal) Range: 11.7-14.9 :46 Prothrombin Time w/INR Comments: [place] [address] [place], [address] INR 1.9 (Normal) PROTIME 22.2 s (Abnormal) Range: 11.7-14.9 20-Hnc-048042:25 Prothrombin Time w/INR Comments: [place] [address] [place], [address] INR 1.9 (Normal) PROTIME 22.0 s (Abnormal) Range: 11.7-14.9 :59 Prothrombin Time w/INR Comments: [place] [address] [place], [address] INR 2.0 (Normal) PROTIME 22.8 s (Abnormal) Range: 11.7-14.9 :58 Prothrombin Time w/INR Comments: [place] [address] [place], [address] INR 1.8 (Normal) PROTIME 20.7 s (Abnormal) Range: 11.7-14.9 33-Fho-130248:31 Prothrombin Time w/INR Comments: [place] [address] [place], [address] INR 1.7 (Normal) PROTIME 19.9 s (Abnormal) Range: 11.7-14.9 44-Olm-470837:20 Prothrombin Time w/INR Comments: [facility] [address] [place], [address] INR 2.6 (Normal) PROTIME 27.9 s (Abnormal) Range: 11.7-14.9 :39 Prothrombin Time w/INR Comments: [facility] [address] [place], [address] INR 2.9 (Normal) PROTIME 30.5 s (Abnormal) Range: 11.7-14.9 :03 Rapid Flu (41404 x 2) Influenza A Ag neg (Normal) 97-Vlr-297632:00 Prothrombin Time w/INR Comments: [place] [address] [place], [address] ; See pt message INR 3.7 (Abnormal) Comments: CRITICAL VALUE VERIFIED. CALLED TO KOL[place] 05/31/17 1130 Nii Lind.RESULTS READ BACK BY SAME. PROTIME 35.0 s (Abnormal) Range: 11.7-14.9 :21 Prothrombin Time w/INR Comments: [facility] [address] [place], [address] INR 4.7 (Abnormal) Comments: CRITICAL VALUE VERIFIED. CALLED TO GEOVANNI AT [facility]05/24/17 0956 Violeta Noble.RESULTS READ BACK BY SAME . PROTIME 42.4 s (Abnormal) Range: 11.7-14.9 14-Soi-503717:27 Prothrombin Time w/INR Comments: [facility] [address] [place], [address] INR 1.9 (Normal) PROTIME 20.9 s (Abnormal) Range: 11.7-14.9 :42 Prothrombin Time w/INR Comments: [facility] [address] [place], [address] INR 4.3 (Abnormal) Comments: CRITICAL VALUE VERIFIED. CALLED TO 05/10/17 0830 Josue Velazquez.RESULTS READ BACK BY . PROTIME 39.8 s (Abnormal) Range: 11.7-14.9 :18 Prothrombin Time w/INR Comments: [facility] [address] [place], [address] INR 2.4 (Normal) PROTIME 24.8 s (Abnormal) Range: 11.7-14.9 :18 Prothrombin Time w/INR Comments: [place] [address] [place], [address] INR 2.4 (Normal) PROTIME 25.2 s (Abnormal) Range: 11.7-14.9 :00 Prothrombin Time w/INR Comments: [place] [address] [place], [address] INR 2.5 (Normal) PROTIME 25.8 s (Abnormal) Range: 11.7-14.9 :32 Prothrombin Time w/INR Comments: [place] [address] [place], [address] INR 2.1 (Normal) PROTIME 22.7 s (Abnormal) Range: 11.7-14.9 :23 Prothrombin Time w/INR Comments: [place] [address] [place], [address] INR 2.3 (Normal) PROTIME 24.6 s (Abnormal) Range: 11.7-14.9 :14 Prothrombin Time w/INR Comments: [facility] [address] [place], [address] INR 2.0 (Normal) PROTIME 21.9 s (Abnormal) Range: 11.7-14.9 :18 Prothrombin Time w/INR Comments: [facility] [address] [place], [address] INR 2.5 (Normal) PROTIME 25.6 s (Abnormal) Range: 11.7-14.9 :39 Prothrombin Time w/INR Comments: [facility] [address] [place], [address] INR 2.1 (Normal) PROTIME 22.7 s (Abnormal) Range: 11.7-14.9 :40 Prothrombin Time w/INR Comments: [facility] [address] [place], [address] INR 2.6 (Normal) PROTIME 26.8 s (Abnormal) Range: 11.7-14.9 :40 Prothrombin Time w/INR Comments: [facility] [address] [place], [address] INR 2.2 (Normal) PROTIME 23.8 s (Abnormal) Range: 11.7-14.9 :21 Prothrombin Time w/INR Comments: [facility] [address] [place], [address] INR 1.8 (Normal) PROTIME 20.1 s (Abnormal) Range: 11.7-14.9 :30 Prothrombin Time w/INR Comments: [facility] [address] [place], [address] INR 3.0 (Normal) PROTIME 30.2 s (Abnormal) Range: 11.7-14.9 :45 Prothrombin Time w/INR Comments: [facility] [address] [place], [address] INR 2.9 (Normal) PROTIME 29.1 s (Abnormal) Range: 11.7-14.9 :52 Prothrombin Time w/INR Comments: [facility] [address] [place], [address] INR 1.4 (Normal) PROTIME 17.0 s (Abnormal) Range: 11.7-14.9 :27 Prothrombin Time w/INR Comments: [facility] [address] [place], [address] INR 2.0 (Normal) PROTIME 21.7 s (Abnormal) Range: 11.7-14.9 07-Txp-340964:21 Prothrombin Time w/INR Comments: [facility] [address] [place], [address] INR 2.3 (Normal) PROTIME 24.1 s (Abnormal) Range: 11.7-14.9 :43 Prothrombin Time w/INR Comments: [facility] [address] [place], [address] INR 2.9 (Normal) PROTIME 29.1 s (Abnormal) Range: 11.7-14.9 :47 Prothrombin Time w/INR Comments: [place] [address] [place], [address] INR 2.3 (Normal) PROTIME 24.0 s (Abnormal) Range: 11.7-14.9 :25 CBC W/Diff, Automated Comments: [place] [address] [place], [address] ; see other message Absolute Lymph 2.07 [...] 07-Jul-20167:25 Comprehensive Metabolic Profil Comments: [facility] [address] [place], [address] GAP 3 (Abnormal) Range: 5-15 CO2 28.0 [...] :25 Prothrombin Time w/INR Comments: [facility] [address] [place], [address] INR 3.5 (Abnormal) Comments: CRITICAL VALUE VERIFIED. CALLED TO PATRICE Longoria07/07/16 0834 Radha Calderon.RESULTS READ BACK BY SAME . PROTIME 33.9 s (Abnormal) Range: 11.7-14.9 :25 Thyroid Stim Hormone (TSH) Comments: [facility] [address] [place], [address] TSH 3.25 {uIU/mL} (Normal) Range: 0.358-3.74 :47 Prothrombin Time w/INR Comments: [facility] [address] [place], [address] INR 2.6 (Normal) Comments: ADDENDA: handled by Dr. Phillips PROTIME 27.5 s (Abnormal) Range: 11.7-14.9 :32 Prothrombin Time w/INR Comments: [facility] [address] [place], [address] INR 2.3 (Normal) PROTIME 25.5 s (Abnormal) Range: 11.7-14.9 :15 Prothrombin Time w/INR Comments: [facility] [address] [place], [address] INR 2.6 (Normal) PROTIME 27.7 s (Abnormal) Range: 11.7-14.9 :29 Prothrombin Time w/INR Comments: [facility] [address] [place], [address] INR 1.3 (Normal) PROTIME 16.7 s (Abnormal) Range: 11.7-14.9 :19 Prothrombin Time w/INR Comments: [facility] [address] [place], [address] INR 2.1 (Normal) PROTIME 23.3 s (Abnormal) Range: 11.7-14.9 :14 Prothrombin Time w/INR Comments: [facility] [address] [place], [address] INR 2.0 (Normal) PROTIME 22.5 s (Abnormal) Range: 11.7-14.9 :21 Prothrombin Time w/INR Comments: [facility] [address] [place], [address] INR 2.7 (Normal) PROTIME 28.5 s (Abnormal) Range: 11.7-14.9 :30 Prothrombin Time w/INR Comments: [facility] [address] [place], [address] INR 2.4 (Normal) PROTIME 25.9 s (Abnormal) Range: 11.7-14.9 :41 Prothrombin Time w/INR Comments: [facility] [address] [place], [address] INR 2.5 (Normal) PROTIME 26.9 s (Abnormal) Range: 11.7-14.9 :09 Prothrombin Time w/INR Comments: [facility] [address] [place], [address] INR 3.4 (Normal) PROTIME 34.4 s (Abnormal) Range: 11.7-14.9 :11 Prothrombin Time w/INR Comments: [facility] [address] [place], [address] INR 2.5 (Normal) PROTIME 26.6 s (Abnormal) Range: 11.7-14.9 30-Wlf-455273:33 Prothrombin Time w/INR Comments: [facility] [address] [place], [address] INR 1.5 (Normal) PROTIME 18.1 s (Abnormal) Range: 11.7-14.9 :12 Prothrombin Time w/INR Comments: [facility] [address] [place], [address] INR 1.1 (Normal) PROTIME 14.4 s (Normal) Range: 11.7-14.9 :51 Prothrombin Time w/INR Comments: [facility] [address] [place], [address] INR 3.6 (Abnormal) Comments: CRITICAL VALUE REPEATED AND VERIFIED. CALLED TO Maycol DAVISON02/25/15 1001 Elsie Longoria.RESULTS READ BACK BY MARGUERITE . PROTIME 35.3 s (Abnormal) Range: 11.7-14.9 :23 Prothrombin Time w/INR Comments: [facility] [address] [place], [address] INR 3.3 (Normal) PROTIME 33.3 s (Abnormal) Range: 11.7-14.9 :13 Prothrombin Time w/INR Comments: [facility] [address] [place], [address] INR 2.4 (Normal) PROTIME 26.5 s (Abnormal) Range: 11.7-14.9 :32 Prothrombin Time w/INR Comments: [facility] [address] [place], [address] INR 1.4 (Normal) PROTIME 17.8 s (Abnormal) Range: 11.7-14.9 :09 Prothrombin Time w/INR Comments: [facility] [id number] [place], [address] INR 1.2 (Normal) PROTIME 15.9 s (Abnormal) Range: 11.7-14.9 :12 Prothrombin Time w/INR Comments: [facility] [id number] [place], [address] INR 2.4 (Normal) PROTIME 26.4 s (Abnormal) Range: 11.7-14.9 :20 Prothrombin Time w/INR Comments: [facility] [address] [place], [address] INR 2.2 (Normal) PROTIME 24.5 s (Abnormal) Range: 11.7-14.9 :11 Prothrombin Time w/INR Comments: Test performed at:[facility] [address] [place] [address] INR 2.2 (Normal) PROTIME 24.1 s (Abnormal) Range: 11.7-14.9 :29 Prothrombin Time w/INR Comments: Test performed at:[facility] [address] [place] [address] INR 3.7 (Abnormal) Comments: CRITICAL VALUE REPEATED AND VERIFIED. CALLED TO KIKE RN12/21/14 Frida Kumar.RESULTS READ BACK BY SAME . PROTIME 36.5 s (Abnormal) Range: 11.7-14.9 :25 Prothrombin Time w/INR Comments: Test performed at:[facility] [address] [place] [address] INR 2.5 (Normal) PROTIME 27.1 s (Abnormal) Range: 11.7-14.9 :23 Miscellaneous Lab Procedure Comments: Comments: [id number] PTH PLUS CALCIUM LAV AND RED RFTest(s) Ordered: [id number] PTH PLUS CALCIUM LAV AND RED RFTest performed at:[facility] [address]ib[address] [place] [address] MISC Comments: TEST RESULT LIMITSCa+PTH Intact Calcium, [...] - 65 < 8.6 [facility] ORIGINAL REPORT ON FILE IN LAB CONTAINS AD DITIONAL TEST SITE INFORMATION. :23 Prothrombin Time w/INR Comments: Test performed at:[facility] [address] [place] [address] INR 4.0 (Abnormal) Comments: CRITICAL VALUE REPEATED AND VERIFIED. CALLED TO CCYPJO57/11/15 0933 Fletcher Foote.RESULTS READ BACK BY SAME . PROTIME 38.3 s (Abnormal) Range: 11.7-14.9 :23 Vitamin D 1,25-Dihydroxy Comments: Test performed at:[facility] [address] [place] [id number] VITD 1,25 60968 55.5 pg/mL (Normal) Range: 19.9-79.3 Comments: Performed at: [address] [id number] Director: Juan Ontiveros MD, Phone: [phone] :23 Vitamin D,25 Hydroxy Comments: Test performed at:[facility] [address] [place] [id number] Vitamin D 25-OH 70.3 ng/mL (Normal) Comments: Vitamin D 25(OH) Status Range Deficiency <20 ng/mL (50nmol/L) Insuffciency 20 - 30 ng/mL (50 - 75 nmol/L) Sufficiency 30 - 100 ng/mL (75 - 250 nmol/L) Toxicity >100 ng/mL (>250 nmol/L) :04 Prothrombin Time w/INR Comments: Test performed at:[facility] [address] [place] [address] INR 2.1 (Normal) PROTIME 23.5 s (Abnormal) Range: 11.7-14.9 :12 Prothrombin Time w/INR Comments: Test performed at:[facility] [address] [place] [address] INR 1.6 (Normal) PROTIME 18.9 s (Abnormal) Range: 11.7-14.9 :10 Prothrombin Time w/INR Comments: Test performed at:[facility] [address] [facility] [place] [address] INR 1.1 (Normal) PROTIME 14.1 s (Normal) Range: 11.7-14.9 19-Hzh-[id number]: ENDOMETRIAL BX/CURETTINGS See Note (Normal) Comments: Test performed at:[facility] [address] [place] [address] 49 Comments: Patient: YAHAIRA BRYANT : 1950 (64/F) Acct Num: [id number] Phys: Aliza Santana MD Unit Num: [id number] [place] [facility] [place]: [id number] Received: 11/26/14 - 1217 Spec Type: EN [...] cassette. / NICOLÁS:papito 11/26/14 TC: 5 CPT: 80378 HEADER OPERATION: Hysteroscopy, diagnostic, D AND C PRE-OP DIAGNOSIS: Postmenopausal bleeding TISSUE SUBMITTED: Endometrial curettings MICROSCOPIC DESCRIPTION Slides are reviewed. MICROSCOPIC DIAGNOSIS Endometrial curettings: Scant strips of benign endometrial epithelium and superficial fragment of benign endometrial tissue, consistent with atrophic endometri um. Fragments of benign endocervical epithelium. SJ:papito 11/27/14 Signed Jeffy Suazo 11/27/14 <signature on file> [id number]-Ifc-[id number]:39 INR Fingerstick Comments: Test performed at:[facility] [address] [place] [address] INR ISTAT 1.10 (Normal) Comments: Critical Value > 3.5; ADDENDA: this is for pre-op, will resume tomorrow and recheck it in 1 week. [id number]-Xgz-939659:39 Prothrombin Time Fingerstick Comments: Test performed at:[facility] [address] [place] [address] PROTIME ISTAT 13.2 {SEC} (Normal) Range: 11.9-14.4 Comments: Reference Range 11.9 - 14.4 77-Ynf-817308:41 Partial Thromboplast Time Comments: Test performed at:[facility] [address] [place] [address] PTT 40.9 s (Abnormal) Range: 24.1-36.2 91-Mqr-712776:41 Prothrombin Time w/INR Comments: Test performed at:[facility] [address] [place] [address] INR 2.6 (Normal) PROTIME 27.4 s (Abnormal) Range: 11.7-14.9 20-Ihd-091004:41 Type AND Screen Comments: Surgery Date: 11/26/14Hx of Preganancy in last 3 Months NoEver experience any problems with transfusion(s)? NHx of Transfusion in last 3 Months NReason for Type AND Screen/Red Cells: SURGERYSURGI ADELSO PROCEDURE: .Test performed at:[facility] [address] [place] [address] Antibody Screen NEGATIVE (Normal) BLOOD TYPE GEL A POSITIVE (Normal) :09 CBC W/Diff, Automated Comments: Test performed at:[facility] [address] [place] [address] Absolute Lymph 2.07 {X10_3/ul} (Normal) [...] Metabolic Profil Comments: Test performed at:[facility] [address] [place] [address] GAP 6 (Normal) Range: 5-15 CO2 29.0 [...] Comments: Please note revised CREATININE reference range bvroqrxzf11/22/2015. BUN 19 mg/dL (Abnormal) Range: 7-18 GLU 75 mg/dL (Normal) Range: 70-110 :09 Prothrombin Time w/INR Comments: Test performed at:[facility] [address] [place] [address] INR 2.4 (Normal) PROTIME 25.8 s (Abnormal) Range: 11.7-14.9 :13 Prothrombin Time w/INR Comments: Test performed at:[facility] Zjq[address]xt15[address] [place] [address](676) INR 1.8 (Normal) PROTIME 21.2 s (Abnormal) Range: 11.7-14.9 :06 Prothrombin Time w/INR Comments: Test performed at:[facility] [address]os[address]yb17[address] [place] [address](144) INR 2.2 (Normal) PROTIME 24.4 s (Abnormal) Range: 11.7-14.9 89-Lka-76587:50 Prothrombin Time w/INR Comments: Test performed at:[facility] [address] [place] [address] INR 1.7 (Normal) PROTIME 20.3 s (Abnormal) Range: 11.7-14.9 01-Gig-699838:16 Estrogen, Total, Serum Comments: Comments: TSHHas Patient had Radioactive Injection for X-ray?: NTest performed at:[facility] [address] [place] [address] ESTROGEN 4549 54 pg/mL (Normal) Comments: Prepubertal <40 Female Cycle: 1-10 Days 61 - 394 11-20 Days 122 - 437 21-30 Days 156 - 350 Post-Menopausal <40 HMG Treatment for Ovulation Induction: 400 - 800Performed at: [facility] [address] [id number] Director: Juan Ontiveros MD, Phone: [phone] 81-Seo-926515:16 Free T3 Comments: Comments: TSHTest performed at:[facility] [address] [facility] [place] [address] FREE T3 2.6 pg/mL (Normal) Range: 2.18-3.98 25-Zdm-915157:16 Hemoglobin A1c Comments: Test performed at:[facility] [address] [place] [address] HGB A1C 5.0 % (Normal) Range: 4.2-6.3 94-Mrh-156057:16 Progesterone Level Comments: Test performed at:[facility] [address] [place] [place] [address] Progesterone 0.48 ng/mL (Normal) Comments: Progesterone Reference Table: UNITS Female: Follicular 0.15 - 1.40 ng/mL Luteal 3.34 - 25.56 ng/mL Mid-luteal 4.44 - 28.03 ng/mL Postmenopausal 0.0 - 0.73 ng/mL : 1st Trimester 11.22 - 90.00 ng /mL 2nd Trimester 25.55 - 89.40 ng/mL 3rd Trimester 48.40 -422.50 ng/mL 46-Vfm-781513:16 T4 Free Direct Comments: Comments: TSHTest performed at:[facility] [address] [place] [address] T4 FREE DIRECT 1.16 ng/dL (Normal) Range: 0.76-1.46 66-Fui-201923:16 Testosterone, Serum Total Comments: Test performed at:[facility] [address] [place] [address] ; ordered by Dr. Santana Testosterone 35 ng/dL (Normal) Range: 14-76 09-Ibs-287831:16 Thyroid Stim Hormone (TSH) Comments: Comments: TSHTest performed at:[facility] [address] [place] [address] TSH 1.53 {uIU/mL} (Normal) Range: 0.358-3.74 :11 Prothrombin Time w/INR Comments: Test performed at:[facility] [address] [place] [address] INR 1.8 (Normal) PROTIME 20.9 s (Abnormal) Range: 11.7-14.9 :27 Prothrombin Time w/INR Comments: Test performed at:[facility] [address] [place] [address] INR 2.2 (Normal) PROTIME 24.8 s (Abnormal) Range: 11.7-14.9 :08 Prothrombin Time w/INR Comments: Test performed at:[facility] [address] [place] [address] INR 4.8 (Abnormal) Comments: CRITICAL VALUE REPEATED AND VERIFIED. CALLED TO RADHA RN10/01/14 0855 Nii Lind.RESULTS READ BACK BY SAME. PROTIME 44.0 s (Abnormal) Range: 11.7-14.9 :14 Prothrombin Time w/INR Comments: Test performed at:[facility] [address] [place] [address] INR 2.6 (Normal) PROTIME 27.9 s (Abnormal) Range: 11.7-14.9 :16 Prothrombin Time w/INR Comments: Test performed at:[facility] [address] [place] [address] INR 5.0 (Abnormal) Comments: CRITICAL VALUE REPEATED AND VERIFIED. CALLED TO Tami DAVISON09/21/14 0809 Elsie Longoria.RESULTS READ BACK BY CONNER . PROTIME 45.5 s (Abnormal) Range: 11.7-14.9 :10 Prothrombin Time w/INR Comments: Test performed at:[facility] [address] [place] [address] INR 3.2 (Normal) PROTIME 32.8 s (Abnormal) Range: 11.7-14.9 :24 Miscellaneous Lab Procedure Comments: Comments: [id number] HHV-6 IGM,SST,REFRIGERATETest(s) Ordered: [id number] HHV-6 IGM,SST,REFRIGERATETest performed at:[facility] [address] [place] [address] MISC Comments: TEST RESULT UNITS REFERENCE INTERVALHuman Herpes Virus Type 6 IgM <1:10 Neg:<1:10Results for this test are for research purposes only by LAB (Normal) theassay's web production artist. The performance characteristics ofthis product have not been established. Results should notbe used as a diagnostic procedure without confirmation ofthe diagnosis by another med TEST ically established diagnosticproduct or procedure. TESTING PERFORMED AT [facility]. ORIGINAL REPORT ON FILE IN LAB CONTAINS ADDITIONAL TEST SITE IN FORMATION. :18 ANTINUCLEAR ANTIBODIES DIRECT Comments: Test performed at:[facility] [address] [place] [address] YURIY-DIRECT Negative (Normal) Comments: Performed at: [address] [id number] Director: Narendra Covarrubias PhD, Phone: [phone] :18 CMV Acute Antibody IgM Comments: Test performed at:[facility] [address] [place] [address] CMVIgM AB < 30.0 AU/mL (Normal) Range: 0.0-29.9 Comments: Negative <30.0 Equivocal 30.0 - 34.9 Positive >34.9A positive result is generally indicative of acuteinfection, react ivation or persistent IgM production.Performed at: [address] [id number] Director: Narendra Covarrubias PhD, Phone: [phone] at: [facility] [address] [place], [place] [id number] Director: Juan Ontiveros MD, Phone: [phone] at: [address] [place] [address] [place] [id number] Director: Bill Tao PhD, Phone: [phone] :18 CMV Antibody IgG Comments: Test performed at:[facility] [address] [place] [address] CMV AB IgG > 10.00 U/mL (Abnormal) Range: 0.00-0.59 Comments: Negative <0.60 Equivocal 0.60 - 0.69 Positive >0.69 :18 EBV Acute Prof IgG / IgM Comments: Test performed at:[facility] [address] [place] [address] INTERPRETATION Comment (Normal) Comments: EBV Interpretation ChartInterpretation EBV-IgM EA(D)-IgG VCA-IgG EBNA-IgGEBV Seronegative - - - -Early Phase + - - -Acute Primary + +or- + -InfectionConvalescence/Past - +or- + +InfectionReactivated +or- + + +Infection + Antibody Present - Antibody Absent EB-NAg [id number] 71.5 U/mL (Abnormal) Range: 0.0-17.9 Comments: Negative <18.0 Equivocal 18.0 - 21.9 Positive >21.9 EB-VCA [id number] > 600.0 U/mL (Abnormal) Range: 0.0-17.9 Comments: Negative <18.0 Equivocal 18.0 - 21.9 Positive >21.9 EB-EA IgG 32035 21.1 U/mL (Abnormal) Range: 0.0-8.9 Comments: Hepatitis A, Hepatitis C and HIV antibodies may cross-reactwith this assay. Negative < 9.0 Equivocal 9.0 - 10.9 Positive >10.9 EB-VCA [id number] < 36.0 U/mL (Normal) Range: 0.0-35.9 Comments: Negative <36.0 Equivocal 36.0 - 43.9 Positive >43.9 :18 Ferritin Comments: Test performed at:[facility] [address] [place] [address] FERRITIN 28 ng/mL (Normal) Range: 8-252 :18 HLA B27 Negative (Normal) Comments: Test performed at:[facility] [address]50[address] [place] [address] Comments: HLA-B*27 NegativeA Lab CLIA ID Number [id number] test was performed using PCR (Polymerase ChainReaction)/SSOP (Sequence Specific Oligonucleotide Probes)technique. SBT (Sequence Based Typing) and/ or SSP(Sequence Specific Primers) may be used as supplementalmethods when necessary. Please contact HLA CustomerService at if you have any questions. Director of HLA Laboratory Dr Bill Tao, PhD :18 Homocysteine Comments: Test performed at:[facility] [address] [place] [address] HOMOCYSTEINE 6.7 umol/L (Normal) Range: 3.2-10.7 :18 IgG Subclasses Comments: Test performed at:[facility] [address] [place] [address] IgG, SUBCLASS 4 1 mg/dL (Normal) Range: 1-291 Comments: Results verified by repeat testing IgG, SUBCLASS 3 52 mg/dL (Normal) Range: 41-129 IgG, SUBCLASS 2 145 mg/dL (Normal) Range: 117-747 IgG, SUBCLASS 1 264 mg/dL (Abnormal) Range: 422-1292 IGG, QUANT 520 mg/dL (Abnormal) Range: 700-1600 07-Sep-20146:18 Miscellaneous Lab Procedure Comments: Comments: [id number] HLA-DR4,SST,REFRIGERATETest(s) Ordered: [id number] HLA-DR4,SST,REFRIGERATETest performed at:[facility] [address] [place] [address] MIS Comments: TEST RESULT UNITS REFERENCE INTERVALHLA DRB1 (IR) DRB1 DRB1*07:NIRAV DRB1 DRB1*- Code Translation: NIRAV 07:01/07:09/07:10N/07:11/07:14/07:22 LAB (Normal) /07:24 /07:25/07:26N/07:27/07:28/07:29HLA allele interpretation for all loci based on IMGT/HLAdatabase version 3.15A [facility] ID Number [id number] TEST TESTING PERFORMED AT [facility]. ORIGINAL REPORT ON FILE IN LAB CONTAINS ADDITIONAL TEST SITE INFORMATION. HLA Methodology:HLA result s were obtained using sequence based typing (SBT),sequence specific oligonucleotide probes (SSOP), and/orsequence specific primers (SSP) as needed to obtain therequired resolution. Please contact [facility] [phone] if you have any questions.Director of [facility] LaboratoryDr Bill Tao, PhD :18 Miscellaneous Lab Procedure Comments: Comments: [id number] HHV-6 IGG,SST,REFRIGERATETest(s) Ordered: [id number] HHV-6 IGG,SST,REFRIGERATEList Test(s) Ordered by Physician: IGA SUBCLASSES, #[id number], SERUM,RM TEMP, 2 MLTest performed at:[facility] [address] [place], [place] [id number] [facility] [place] Comments: TEST RESULT UNITS REFERENCE INTERVALHHV 6 IgG Antibodies 2.42 High index Negative <0.76 Equivocal 0.76 - 0.99 LAB (Normal) Positive >0.99Results for this test are for research purposesonly by the assay's web production artist. The performancecharacteristics of this product have not beenestablishe TEST d. Results should not be used as adiagnostic procedure without confirmation of thediagnosis by another medically established diagnosticproduct or procedure. TESTING PERFORMED AT [facility]. ORIGINAL REPORT ON FILE IN LAB CONTAINS ADDITIONAL TEST SITE INFORMATION. :18 Miscellaneous Lab Procedure 2 Comments: Comments: [id number] HHV- 6 IGG,SST,REFRIGERATETest(s) Ordered: [id number] HHV-6 IGG,SST,REFRIGERATEList Test(s) Ordered by Physician: IGA SUBCLASSES, #[id number], SERUM,RM TEMP, 2 MLTest performed at:[facility] [address] [place], [place] [address] [facility] [place] Comments: TEST RESULT UNITS REFERENCE INTERVALIgA, Subclasses (1-2) Immunoglobulin A, Qn, Serum 161 mg/dL 91 - 414 IgA, Subclass 1 132.0 mg/dL LAB (Normal) 73.2 - 301.2 IgA, Subclass 2 6.2 Low mg/dL 13.4 - 97.9 TESTING PERFORMED AT [facility]. ORIGINAL REPORT ON FILE IN LAB CONTAINS MANFRED TEST TIONAL TEST SITE INFORMATION. 2 :18 Prothrombin Time w/INR Comments: Test performed at:[facility] [address] [place] [id number] INR 1.9 (Normal) PROTIME 22.3 s (Abnormal) Range: 11.7-14.9 :18 Vitamin B12 664 pg/mL (Normal) Comments: Test performed at:[facility] [address] [place] [address] Range: 211-911 :18 Vitamin D,25 Hydroxy Comments: Test performed at:[facility] [address] [place] [address] Vitamin D 25-OH 58.8 ng/mL (Normal) Comments: Vitamin D 25(OH) Status Range Deficiency <20 ng/mL (50nmol/L) Insuffciency 20 - 30 ng/mL (50 - 75 nmol/L) Sufficiency 30 - 100 ng/mL (75 - 250 nmol/L) Toxicity >100 ng/mL (>250 nmol/L) :13 CBC W/Diff, Automated Comments: Test performed at:[facility] [address] [place] [id number] Absolute Lymph 2.08 {X10_3/ul} (Normal) Range: 0.83-4.51 [...] 4.2-5.4 WBC 3.9 K/mm3 (Abnormal) Range: 4.4-11.0 03-Sep-20146:13 Comprehensive Metabolic Profil Comments: Test performed at:[facility] [address] [place] [address] GAP 7 (Normal) Range: 5-15 CO2 29.0 [...] Lipid Profile Comments: Test performed at:[facility] [address] [place] [address] VLDL 9 mg/dL (Normal) Range: [...] Time w/INR Comments: Test performed at:[facility] [address] [place] [address] INR 1.5 (Normal) PROTIME 18.4 s (Abnormal) Range: 11.7-14.9 55-Stw-18839:17 INR Fingerstick Comments: Test performed at:[facility] [address] [place] [address] INR ISTAT 1.50 (Normal) Comments: Critical Value > 3.5 :17 Prothrombin Time Fingerstick Comments: Test performed at:[facility] [address] [place] [address] PROTIME ISTAT 17.6 {SEC} (Abnormal) Range: 11.9-14.4 Comments: Reference Range 11.9 - 14.4 :09 INR Fingerstick Comments: Test performed at:[facility] [address] [place] [address] INR ISTAT 1.40 (Normal) Comments: Critical Value > 3.5 :09 Prothrombin Time Fingerstick Comments: Test performed at:[facility] [address] [place] [address] PROTIME ISTAT 17.1 {SEC} (Abnormal) Range: 11.9-14.4 Comments: Reference Range 11.9 - 14.4 :09 Prothrombin Time w/INR Comments: Test performed at:[facility] [address] [place] [address] INR 1.1 (Normal) PROTIME 14.6 s (Normal) Range: 11.7-14.9 :11 INR Fingerstick Comments: Test performed at:[facility] [address] [place] [address] INR ISTAT 1.20 (Normal) Comments: Critical Value > 3.5 :11 Prothrombin Time Fingerstick Comments: Test performed at:[facility] [address] [place] [address] PROTIME ISTAT 13.9 {SEC} (Normal) Range: 11.9-14.4 Comments: Reference Range 11.9 - 14.4 :06 INR Fingerstick Comments: Test performed at:[facility] [address] [place] [address] INR ISTAT 1.10 (Normal) Comments: Critical Value > 3.5 :06 Prothrombin Time Fingerstick Comments: Test performed at:[facility] [address] [place] [address] PROTIME ISTAT 13.6 {SEC} (Normal) Range: 11.9-14.4 Comments: Reference Range 11.9 - 14.4 :28 INR Fingerstick Comments: Test performed at:[facility] [address] [place] [address] INR ISTAT 2.20 (Normal) Comments: Critical Value > 3.5 :28 Prothrombin Time Fingerstick Comments: Test performed at:[facility] [address] [place] [address] PROTIME ISTAT 25.0 {SEC} (Abnormal) Range: 11.9-14.4 Comments: Reference Range 11.9 - 14.4 :19 INR Fingerstick Comments: Test performed at:[facility] [address] [place] [address] INR ISTAT 2.70 (Normal) Comments: Critical Value > 3.5 :19 Prothrombin Time Fingerstick Comments: Test performed at:[facility] [address] [place] [address] PROTIME ISTAT 30.6 {SEC} (Abnormal) Range: 11.9-14.4 Comments: Reference Range 11.9 - 14.4 :09 Prothrombin Time w/INR Comments: Test performed at:[facility] [address] [place] [address] INR 3.2 (Normal) PROTIME 32.6 s (Abnormal) Range: 11.7-14.9 :22 Prothrombin Time w/INR Comments: Test performed at:[facility] [address] [place] [address] INR 2.6 (Normal) PROTIME 27.8 s (Abnormal) Range: 11.7-14.9 :22 Prothrombin Time w/INR Comments: Test performed at:[facility] [address] [place] [address] INR 3.0 (Normal) PROTIME 30.9 s (Abnormal) Range: 11.7-14.9 :12 Prothrombin Time w/INR Comments: Test performed at:[facility] [address] [place] [address] INR 3.4 (Normal) PROTIME 33.7 s (Abnormal) Range: 11.7-14.9 :10 Prothrombin Time w/INR Comments: Test performed at:[facility] [address] [place] [address] INR 3.7 (Abnormal) PROTIME 36.4 s (Abnormal) Range: 11.7-14.9 31-Xeu-399080:20 Prothrombin Time w/INR Comments: Test performed at:[facility] [address] [place] [address] INR 3.0 (Normal) PROTIME 31.0 s (Abnormal) Range: 11.7-14.9 :10 Prothrombin Time w/INR Comments: Test performed at:[facility] [address] [place] [address] INR 3.0 (Normal) PROTIME 30.7 s (Abnormal) Range: 11.7-14.9 :04 Prothrombin Time w/INR Comments: Test performed at:[facility] [address] [place] [address] INR 1.7 (Normal) PROTIME 19.7 s (Abnormal) Range: 11.7-14.9 :17 Prothrombin Time w/INR Comments: Test performed at:[facility] [address] [place] [address] INR 1.8 (Normal) PROTIME 21.1 s (Abnormal) [...] VALUE REPEATED AND VERIFIED. CALLED TO TARUN RN09/03/18 0919 Nii BarajasRESULTS READ BACK BY SAME. PTP 45.6 s (Abnormal) Range: 11.7-14.9 4-Rtb-595636:00 HARMONY 10.46 ug/dL (Normal) Comments: BASELINE OR [...] Comments: Please note revised PROTIME reference range vibffudmr44/14/15. :05 PT INR 3.0 (Normal) PTP 30.6 s (Abnormal) Range: 11.7-14.9 Comments: Please note revised PROTIME reference range vtqoxxqmk72/14/15. :07 PT INR 5.6 (Abnormal) PTP 50.1 s (Abnormal) Range: 11.7-14.9 Comments: Please note revised PROTIME reference range sgpqzcgme46/14/15. 50-Bbi-22552:03 PT INR 2.5 (Normal) PTP 27.0 s (Abnormal) Range: 11.7-14.9 Comments: Please note revised PROTIME reference range smciczgap35/14/15. :03 PT INR 2.0 (Normal) PTP 23.0 s (Abnormal) Range: 11.7-14.9 Comments: Please note revised PROTIME reference range wzdcninto44/14/15. 2:06 PT INR 2.1 (Normal) PTP 21.9 [...] CHOL 287 mg/dL (Abnormal) Comments: <200 mg/dL Ylierkymg017-622 mg/dL Borderline>240 mg/dL High Risk TRIG 78 [...] CRITICAL VALUE REPEATED AND VERIFIED. CALLED TO MRAKIRZ34/14/14 [facility]6 Jeovanny Serrano.RESULTS READ BACK BY OLIVIER . [...] CHOL 227 mg/dL (Abnormal) Comments: <200 mg/dL Lemhjpnig844-209 mg/dL Borderline>240 mg/dL High Risk HDL 81 [...] CHOL 229 mg/dL (Abnormal) Comments: <200 mg/dL Eqypbszet307-638 mg/dL Borderline>240 mg/dL High Risk :16 PT Comments: DR Brambila ORDERED PT,CBC,CMPDR FAST ORDERED LIPID, CUUR INR 2.2 (Normal) PTP 22.7 s (Abnormal) Range: 11.9-14.4 09-Cfk-08691:49 BILAT SCRN DIGITAL & CAD Radiology Report [...] Rodriguez M.D.September 21, 2012 at 11:00:07 AM [id number] Signed RU/RU If you are the referring physician and would like to consult with theradiologist who provided this interpretation, please contact Man Styles at [phone]. If this radiologist is unavailable, youwillbe directed to another radiologist to as sist. If you are a patient with a question regarding this report, pleasecontactyour referring physician directly. Professional Interpretation Provided By: [employer], Phone ,Fax These documents contain legally protected [...] on 09/21/12 1106 Sign by: Laith Rodriguez 9-Yzv-754889:40 CUUR URC See Note (Normal) Comments: This is an amended result. A prior result that was reported as final has been changed.09/07/12 1448 by NSTANSLOSPreviously reported as: FINAL COLONY COUNT <1000 ORGANISM 1: MIXED GRAM POSITIVE ORGANISMS 8-Ocy-482733:40 LYMEWB tNPXOQWF83O Absent (Normal) tLYMWBINTM Negative (Normal) Comments: Note: [...] are those recommended byCDC/ASTPHLD. p23=Osp C , u12=kozgymbgq.Note:Sera from individuals with the following may cross reactin the Lyme Western Blot assays: other spirochetal diseases(periodontal disease, leptospirosis, relapsing fever, yaws,and pin ta); connective autoimmune (Rheumatoid Arthritis andSystemic Lupus Erythematosus and also individuals withAntinuclear Antibody); other infections (Angel MountainSpotted Fever; Desirae-Camargo Virus, and Cy tomegalovirus)..Performed at: [facility], [place] [id number] Director: Juan Ontiveros MD, Phone: [phone] gODDCLQL60O Absent (Normal) hTUXHRVW43M Absent (Normal) bYIYPGEQ60M Absent (Normal) aWTOKGNZ18G Absent (Normal) tLYMWBINTG Negative (Normal) Comments: Positive: 5 of the followingBorrelia- specific bands:18,23,28,30,39,41,45,58,66, and 93.Negative: No bands or bandingpatterns which do notmeet positive criteria. mXCBBYPD59Y Absent (Normal) oVHQOKIP38N Absent (Normal) uXVXETKL31Y Absent (Normal) tUQOKOVS48Y Present (Abnormal) gVSMKWAH14X Absent (Normal) tVIVYYZL70O Absent (Normal) sQSGIRAF08H Absent (Normal) iYAKAZQT31Z Absent (Normal) 86-Mao-09905:03 PT INR 2.9 (Normal) PTP 28.1 s (Abnormal) Range: 11.9-14.4 12-Oxq-280417:12 Microscopic Examination Comments: PATIENT NOT FASTINGPERFORMED BY: [employer] ([place]) [id number] [facility]iedoAccess MobileAt[facility] [id number] Bacteria Few (Normal) Mucus Threads Present (Normal) Epithelial Cells (non renal) 0-10 {/hpf} (Normal) Range: 0 - 10 RBC None seen {/hpf} (Normal) Range: 0 - 3 WBC None seen {/hpf} (Normal) Range: 0 - 5 37-Afh-429113:12 Lyme Disease Antibody W/ Comments: PATIENT NOT FASTINGPERFORMED BY: [employer] ([place])[facility] CountyDztbwe6017 [facility] [id number] Reflex ([id number]) Lyme Ab Interp.,EIA Negative (Normal) Lyme IgG/IgM Ab <0.91 {index} (Normal) Range: 0.00-0.90 Comments: Negative <0.91 Equivocal 0.91 - 1.09 Positive >1.09 Note: The [facility] curren tly advises that Western blot testing be performed following all equivocal or positive EIA results. Final diagnosis should include appropriate clinical findi ngs and a positive EIA which is also positive by Western blot. 98-Bai-754333:12 SED RATE ERYTHROCYTE ([id number]) Comments: PATIENT NOT FASTINGPERFORMED BY: [employer] ([place])[facility] CountyZoyxpm6885 [facility] [id number] Sedimentation Rate-Westergren 2 mm/h (Normal) Range: 0-40 51-Ztk-900386:12 C-REACTIVE PROTEIN (16772) Comments: PATIENT NOT FASTINGPERFORMED BY: [facility]6370 [facility] [id number] C-Reactive Protein, Quant 0.7 mg/L (Normal) Range: 0.0-4.9 :12 URINALYSIS, W/ MICRO ([id number]) Comments: PATIENT NOT FASTINGPERFORMED BY: [employer] ([place])[facility] CountyQmknwg5249 [facility] [id number] Microscopic Examination See below: (Normal) Nitrite, Urine Negative (Normal) Urobilinogen,Semi-Qn 0.2 mg/dL (Normal) Range: 0.0-1.9 Bilirubin Negative (Normal) Occult Blood Negative (Normal) Ketones 3+ (Abnormal) Glucose Negative (Normal) Protein 1+ (Abnormal) WBC Esterase Negative (Normal) Appearance Clear (Normal) Urine-Color Yellow (Normal) pH 6.0 (Normal) Range: 5.0-7.5 Specific [place] 1.025 (Normal) Range: 1.005-1.030 :12 TSH ([id number]) Comments: PATIENT NOT FASTINGPERFORMED BY: [employer] ([place])[facility] CountyNmjhio1166 [facility] [id number] TSH 2.400 {uIU/mL} (Normal) Range: 0.450-4.500 42-Loa-835172:12 METABOLIC PANEL, COMPREHENSIVE Comments: PATIENT NOT FASTINGPERFORMED BY: [employer] ([place])[facility] CountyHtmqfh2936 [facility] [id number] ([id number]) ALT (SGPT) 19 [iU]/L (Normal) Range: 0-32 [...] Glucose, Serum 91 mg/dL (Normal) Range: 65-99 59-Qty-327061:12 CBC WITH MANUAL DIFF Comments: PATIENT NOT FASTINGPERFORMED BY: [facility] Fzqxes6530 [facility] [id number] Information: [id number] ([id number]) Immature Grans (Abs) 0.0 {x10E3/uL} (Normal) Range: [...] (Normal) UCLAR Clear (Normal) UCOL Yellow (Normal) 06-Dmf-63444:12 VITD 34.0 ng/mL (Normal) Range: 30.0-100.0 Comments: Vitamin D deficiency has been defined by the [place] ofMedicine and an Endocrine Society practice guideline as alevel of serum 25-OH vitamin D less than 20 ng/mL (1,2).The Endocrine Society went on to further define vitamin Dinsufficiency as a level between 21 and 29 ng/mL (2).1. IOM ([place] of Medicine). 2010. Dietary reference intakes for calcium and D. [place]: The National Academies Press.2. Ana MF, Heriberto [place], Jayla BECKFORD, et al. Evaluation, treatment, and prevention of vitamin D deficiency: an Endocrine Society clinical practice guideline. JCEM. 2010; 96(7): 1911-30.Performed at: [address] [id number] Director: Narendra Covarrubias PhD, Phone: [phone] Plan of Care Name Dates Details Instructions [...] Planned Observations CBC, Platelets & Auto Diff ([id number])Indication: Leukopenia On: : Request CBC, Platelets & Auto Diff ([id number])Indication: Leukopenia On: : Request CBC, Platelets & Auto Diff ([id number])Indication: Leukopenia On: 13-Mar-2042 Request CBC, Platelets & Auto Diff ([id number])Indication: Leukopenia On: : Request CBC, Platelets & Auto Diff ([id number])Indication: Leukopenia On: : Request CBC, Platelets & Auto Diff ([id number])Indication: Leukopenia On: : Request CBC, Platelets & Auto Diff ([id number])Indication: Leukopenia On: 18-Mar-2041 Request CBC, Platelets & Auto Diff ([id number])Indication: Leukopenia On: : Request CBC, Platelets & Auto Diff ([id number])Indication: Leukopenia On: : Request CBC, Platelets & Auto Diff ([id number])Indication: Leukopenia On: : Request CBC, Platelets & Auto Diff ([id number])Indication: Leukopenia On: 23-Mar-2040 Request CBC, Platelets & Auto Diff ([id number])Indication: Leukopenia On: :00 Request CBC, Platelets & Auto Diff ([id number])Indication: Leukopenia On: :00 Request CBC, Platelets & Auto Diff ([id number])Indication: Leukopenia On: : Request CBC, Platelets & Auto Diff ([id number])Indication: Leukopenia On: 29-Mar-2039 Request CBC, Platelets & Auto Diff ([id number])Indication: Leukopenia On: :00 Request CBC, Platelets & Auto Diff ([id number])Indication: Leukopenia On: : Request CBC, Platelets & Auto Diff ([id number])Indication: Leukopenia On: :00 Request CBC, Platelets & Auto Diff ([id number])Indication: Leukopenia On: 03-Apr-2038 Request CBC, Platelets & Auto Diff ([id number])Indication: Leukopenia On: :00 Request CBC, Platelets & Auto Diff ([id number])Indication: Leukopenia On: : Request CBC, Platelets & Auto Diff ([id number])Indication: Leukopenia On: : Request CBC, Platelets & Auto Diff ([id number])Indication: Leukopenia On: 08-Apr-2037 Request CBC, Platelets & Auto Diff ([id number])Indication: Leukopenia On: :00 Request CBC, Platelets & Auto Diff ([id number])Indication: Leukopenia On: :00 Request CBC, Platelets & Auto Diff ([id number])Indication: Leukopenia On: :00 Request CBC, Platelets & Auto Diff ([id number])Indication: Leukopenia On: 13-Apr-2036 Request CBC, Platelets & Auto Diff ([id number])Indication: Leukopenia On: :00 Request CBC, Platelets & Auto Diff ([id number])Indication: Leukopenia On: :00 Request CBC, Platelets & Auto Diff ([id number])Indication: Leukopenia On: :00 Request CBC, Platelets & Auto Diff ([id number])Indication: Leukopenia On: 19-Apr-2035 Request CBC, Platelets & Auto Diff ([id number])Indication: Leukopenia On: :00 Request CBC, Platelets & Auto Diff ([id number])Indication: Leukopenia On: :00 Request CBC, Platelets & Auto Diff ([id number])Indication: Leukopenia On: :00 Request CBC, Platelets & Auto Diff ([id number])Indication: Leukopenia On: 24-Apr-2034 Request CBC, Platelets & Auto Diff ([id number])Indication: Leukopenia On: : Request CBC, Platelets & Auto Diff ([id number])Indication: Leukopenia On: : Request CBC, Platelets & Auto Diff ([id number])Indication: Leukopenia On: : Request CBC, Platelets & Auto Diff ([id number])Indication: Leukopenia On: 29-Apr-2033 Request CBC, Platelets & Auto Diff ([id number])Indication: Leukopenia On: : Request CBC, Platelets & Auto Diff ([id number])Indication: Leukopenia On: : Request CBC, Platelets & Auto Diff ([id number])Indication: Leukopenia On: : Request CBC, Platelets & Auto Diff ([id number])Indication: Leukopenia On: 04-May-2032 Request CBC, Platelets & Auto Diff ([id number])Indication: Leukopenia On: : Request CBC, Platelets & Auto Diff ([id number])Indication: Leukopenia On: : Request CBC, Platelets & Auto Diff ([id number])Indication: Leukopenia On: : Request CBC, Platelets & Auto Diff ([id number])Indication: Leukopenia On: 10-May-2031 Request CBC, Platelets & Auto Diff ([id number])Indication: Leukopenia On: 09-Feb-2031 Request CBC, Platelets & Auto Diff ([id number])Indication: Leukopenia On: : Request CBC, Platelets & Auto Diff ([id number])Indication: Leukopenia On: : Request CBC, Platelets & Auto Diff ([id number])Indication: Leukopenia On: 15-May-2030 Request CBC, Platelets & Auto Diff ([id number])Indication: Leukopenia On: 14-Feb-2030 Request CBC, Platelets & Auto Diff ([id number])Indication: Leukopenia On: :00 Request CBC, Platelets & Auto Diff ([id number])Indication: Leukopenia On: :00 Request CBC, Platelets & Auto Diff ([id number])Indication: Leukopenia On: 20-May-2029 Request CBC, Platelets & Auto Diff ([id number])Indication: Leukopenia On: 19-Feb-2029 Request CBC, Platelets & Auto Diff ([id number])Indication: Leukopenia On: :00 Request CBC, Platelets & Auto Diff ([id number])Indication: Leukopenia On: :00 Request CBC, Platelets & Auto Diff ([id number])Indication: Leukopenia On: 25-May-2028 Request CBC, Platelets & Auto Diff ([id number])Indication: Leukopenia On: 25-Feb-2028 Request CBC, Platelets & Auto Diff ([id number])Indication: Leukopenia On: :00 Request CBC, Platelets & Auto Diff ([id number])Indication: Leukopenia On: :00 Request CBC, Platelets & Auto Diff ([id number])Indication: Leukopenia On: 31-May-2027 Request CBC, Platelets & Auto Diff ([id number])Indication: Leukopenia On: 02-Mar-2027 Request CBC, Platelets & Auto Diff ([id number])Indication: Leukopenia On: :00 Request CBC, Platelets & Auto Diff ([id number])Indication: Leukopenia On: :00 Request CBC, Platelets & Auto Diff ([id number])Indication: Leukopenia On: 05-Jun-2026 Request CBC, Platelets & Auto Diff ([id number])Indication: Leukopenia On: 07-Mar-2026 Request CBC, Platelets & Auto Diff ([id number])Indication: Leukopenia On: :00 Request CBC, Platelets & Auto Diff ([id number])Indication: Leukopenia On: :00 Request CBC, Platelets & Auto Diff ([id number])Indication: Leukopenia On: 10-Jun-2025 Request CBC, Platelets & Auto Diff ([id number])Indication: Leukopenia On: 12-Mar-2025 Request CBC, Platelets & Auto Diff ([id number])Indication: Leukopenia On: :00 Request CBC, Platelets & Auto Diff ([id number])Indication: Leukopenia On: :00 Request CBC, Platelets & Auto Diff ([id number])Indication: Leukopenia On: :00 Request CBC, Platelets & Auto Diff ([id number])Indication: Leukopenia On: 17-Mar-2024 Request CBC, Platelets & Auto Diff ([id number])Indication: Leukopenia On: :00 Request CBC, Platelets & Auto Diff ([id number])Indication: Leukopenia On: :00 Request CBC, Platelets & Auto Diff ([id number])Indication: Leukopenia On: :00 Request CBC, Platelets & Auto Diff ([id number])Indication: Leukopenia On: 23-Mar-2023 Request CBC, Platelets & Auto Diff ([id number])Indication: Leukopenia On: :00 Request CBC, Platelets & Auto Diff ([id number])Indication: Leukopenia On: :00 Request CBC, Platelets & Auto Diff ([id number])Indication: Leukopenia On: : Request CBC, Platelets & Auto Diff ([id number])Indication: Leukopenia On: 28-Mar-2022 Request CBC, Platelets & Auto Diff ([id number])Indication: Leukopenia On: : Request CBC, Platelets & Auto Diff ([id number])Indication: Leukopenia On: : Request CBC, Platelets & Auto Diff ([id number])Indication: Leukopenia On: :00 Request CBC, Platelets & Auto Diff ([id number])Indication: Leukopenia On: 02-Apr-2021 Request CBC, Platelets & Auto Diff ([id number])Indication: Leukopenia On: :00 Request CBC, Platelets & Auto Diff ([id number])Indication: Leukopenia On: :00 Request CBC, Platelets & Auto Diff ([id number])Indication: Leukopenia On: :00 Request CBC, Platelets & Auto Diff ([id number])Indication: Leukopenia On: 07-Apr-2020 Request CBC, Platelets & Auto Diff ([id number])Indication: Leukopenia On: 08-Jan-2020 Request CBC, Platelets & Auto Diff ([id number])Indication: Leukopenia On: 10-Oct-2019 Request CBC, Platelets & Auto Diff ([id number])Indication: Leukopenia On: 12-Jul-2019 Request CBC, Platelets & Auto Diff ([id number])Indication: Leukopenia On: 13-Apr-2019 Request CBC, Platelets & Auto Diff ([id number])Indication: Leukopenia On: 13-Jan-2019 Request CBC, Platelets & Auto Diff ([id number])Indication: Leukopenia On: 15-Oct-2018 Request CBC, Platelets & Auto Diff ([id number])Indication: Leukopenia On: 17-Jul-2018 Request PT (Prothrobim Time) ([id number])Indication: Anticoagulated on Coumadin On: 23-May-2018 Request PT (Prothrobim Time) ([id number])Indication: Anticoagulated on Coumadin On: 16-May-2018 Request PT (Prothrobim Time) ([id number])Indication: Anticoagulated on Coumadin On: 09-May-2018 Request PT (Prothrobim Time) ([id number])Indication: Anticoagulated on Coumadin On: 02-May-2018 Request PT (Prothrobim Time) ([id number])Indication: Anticoagulated on Coumadin On: 25-Apr-2018 Request CBC, Platelets & Auto Diff ([id number])Indication: Leukopenia On: 18-Apr-2018 Request PT (Prothrobim Time) ([id number])Indication: Anticoagulated on Coumadin On: 18-Apr-2018 Request PT (Prothrobim Time) ([id number])Indication: Anticoagulated on Coumadin On: 11-Apr-2018 Request PT (Prothrobim Time) ([id number])Indication: Anticoagulated on Coumadin On: 04-Apr-2018 Request PT (Prothrobim Time) ([id number])Indication: Anticoagulated on Coumadin On: 28-Mar-2018 Request PT (Prothrobim Time) ([id number])Indication: Anticoagulated on Coumadin On: 21-Mar-2018 Request PT (Prothrobim Time) ([id number])Indication: Anticoagulated on Coumadin On: 14-Mar-2018 Request PT (Prothrobim Time) ([id number])Indication: Anticoagulated on Coumadin On: 07-Mar-2018 Request PT (Prothrobim Time) ([id number])Indication: Anticoagulated on Coumadin On: 28-Feb-2018 Request PT (Prothrobim Time) ([id number])Indication: Anticoagulated on Coumadin On: 21-Feb-2018 Request PT (Prothrobim Time) ([id number])Indication: Anticoagulated on Coumadin On: 14-Feb-2018 Request YURIY (ANTINUCLEAR ANTIBODY) ([id number])Indication: Leukopenia On: 4-Lzg-701361:30 Request Comments: give lab slips UPEP ([id number])Indication: Leukopenia On: 1-Bhx-656842:30 Request Comments: give lab slips SPEP ([id number])Indication: Leukopenia On: 3-Axd-132372:29 Request Comments: give lab slips PT (Prothrobim Time) ([id number])Indication: Anticoagulated on Coumadin On: 07-Feb-2018 Request PT (Prothrobim Time) ([id number])Indication: Anticoagulated on Coumadin On: 31-Jan-2018 Request PT (Prothrobim Time) ([id number])Indication: Anticoagulated on Coumadin On: 24-Jan-2018 Request PT (Prothrobim Time) ([id number])Indication: Anticoagulated on Coumadin On: 17-Jan-2018 Request PT (Prothrobim Time) ([id number])Indication: Anticoagulated on Coumadin On: 10-Jan-2018 Request PT (Prothrobim Time) ([id number])Indication: Anticoagulated on Coumadin On: 03-Jan-2018 Request PT (Prothrobim Time) ([id number])Indication: Anticoagulated on Coumadin On: 27-Dec-2017 Request PT (Prothrobim Time) ([id number])Indication: Anticoagulated on Coumadin On: 20-Dec-2017 Request BILIRUBIN, TOTAL ([id number])Indication: Encounter for screening for lipid disorder On: 05-Kin-289809:28 Request BILIRUBIN, DIRECT ([id number])Indication: Encounter for screening for lipid disorder On: 60-Qam-494167:28 Request CBC, PLATELETS & AUT DIFF ([id number])Indication: Encounter for screening for lipid disorder On: 70-Nqh-168836:47 Request Metabolic Panel, Comprehensive ([id number])Indication: Encounter for screening for lipid disorder On: 23-Tzj-15904:10 Request CBC & PLATELETS (AUTO) ([id number])Indication: Encounter for screening for lipid disorder On: 31-Cmj-67774:10 Request LIPID PANEL ([id number])Indication: Encounter for screening for lipid disorder On: 63-Otb-42122:09 Request PT (Prothrobim Time) ([id number])Indication: Anticoagulated on Coumadin On: 13-Dec-2017 Request PT (Prothrobim Time) ([id number])Indication: Anticoagulated on Coumadin On: 06-Dec-2017 Request PT (Prothrobim Time) ([id number])Indication: Anticoagulated on Coumadin On: 29-Nov-2017 Request PT (Prothrobim Time) ([id number])Indication: Anticoagulated on Coumadin On: 22-Nov-2017 Request PT (Prothrobim Time) ([id number])Indication: Anticoagulated on Coumadin On: 15-Nov-2017 Request PT (Prothrobim Time) ([id number])Indication: Anticoagulated on Coumadin On: 08-Nov-2017 Request PT (Prothrobim Time) ([id number])Indication: Anticoagulated on Coumadin On: 01-Nov-2017 Request PT (Prothrobim Time) ([id number])Indication: Anticoagulated on Coumadin On: 25-Oct-2017 Request PT (Prothrobim Time) ([id number])Indication: Anticoagulated on Coumadin On: 18-Oct-2017 Request PT (Prothrobim Time) ([id number])Indication: Anticoagulated on Coumadin On: 11-Oct-2017 Request PT (Prothrobim Time) ([id number])Indication: Anticoagulated on Coumadin On: 04-Oct-2017 Request PT (Prothrobim Time) ([id number])Indication: Anticoagulated on Coumadin On: 27-Sep-2017 Request PT (Prothrobim Time) ([id number])Indication: Anticoagulated on Coumadin On: 20-Sep-2017 Request PT (Prothrobim Time) ([id number])Indication: Anticoagulated on Coumadin On: 13-Sep-2017 Request PT (Prothrobim Time) ([id number])Indication: Anticoagulated on Coumadin On: 06-Sep-2017 Request PT (Prothrobim Time) ([id number])Indication: Anticoagulated on Coumadin On: 30-Aug-2017 Request PT (Prothrobim Time) ([id number])Indication: Anticoagulated on Coumadin On: 23-Aug-2017 Request PT (Prothrobim Time) ([id number])Indication: Anticoagulated on Coumadin On: 16-Aug-2017 Request PT (Prothrobim Time) ([id number])Indication: Anticoagulated on Coumadin On: 09-Aug-2017 Request PT (Prothrobim Time) ([id number])Indication: Anticoagulated on Coumadin On: 02-Aug-2017 Request PT (Prothrobim Time) ([id number])Indication: Anticoagulated on Coumadin On: 26-Jul-2017 Request PT (Prothrobim Time) ([id number])Indication: Anticoagulated on Coumadin On: 19-Jul-2017 Request PT (Prothrobim Time) ([id number])Indication: Anticoagulated on Coumadin On: 12-Jul-2017 Request PT (Prothrobim Time) ([id number])Indication: Anticoagulated on Coumadin On: 05-Jul-2017 Request PT (Prothrobim Time) ([id number])Indication: Anticoagulated on Coumadin On: 28-Jun-2017 Request PT (Prothrobim Time) ([id number])Indication: Anticoagulated on Coumadin On: 21-Jun-2017 Request PT (Prothrobim Time) ([id number])Indication: Anticoagulated on Coumadin On: 14-Jun-2017 Request PT (Prothrobim Time) ([id number])Indication: Anticoagulated on Coumadin On: 07-Jun-2017 Request PT (Prothrobim Time) ([id number])Indication: Anticoagulated on Coumadin On: 31-May-2017 Request PT (Prothrobim Time) ([id number])Indication: Anticoagulated on Coumadin On: 25-May-2017 Request PT (Prothrobim Time) ([id number])Indication: Anticoagulated on Coumadin On: 25-May-2017 Request PT (Prothrobim Time) ([id number])Indication: Anticoagulated on Coumadin On: 24-May-2017 Request PT (Prothrobim Time) ([id number])Indication: Anticoagulated on Coumadin On: 17-May-2017 Request PT (Prothrobim Time) ([id number])Indication: Anticoagulated on Coumadin On: 10-May-2017 Request PT (Prothrobim Time) ([id number])Indication: Anticoagulated on Coumadin On: 03-May-2017 Request PT (Prothrobim Time) ([id number])Indication: Anticoagulated on Coumadin On: 26-Apr-2017 Request PT (Prothrobim Time) ([id number])Indication: Anticoagulated on Coumadin On: 25-Apr-2017 Request PT (Prothrobim Time) ([id number])Indication: Anticoagulated on Coumadin On: 25-Apr-2017 Request PT (Prothrobim Time) ([id number])Indication: Anticoagulated on Coumadin On: 19-Apr-2017 Request PT (Prothrobim Time) ([id number])Indication: Anticoagulated on Coumadin On: 12-Apr-2017 Request PT (Prothrobim Time) ([id number])Indication: Anticoagulated on Coumadin On: 05-Apr-2017 Request PT (Prothrobim Time) ([id number])Indication: Anticoagulated on Coumadin On: 29-Mar-2017 Request PT (Prothrobim Time) ([id number])Indication: Anticoagulated on Coumadin On: 26-Mar-2017 Request PT (Prothrobim Time) ([id number])Indication: Anticoagulated on Coumadin On: 26-Mar-2017 Request PT (Prothrobim Time) ([id number])Indication: Anticoagulated on Coumadin On: 22-Mar-2017 Request PT (Prothrobim Time) ([id number])Indication: Anticoagulated on Coumadin On: 15-Mar-2017 Request PT (Prothrobim Time) ([id number])Indication: Anticoagulated on Coumadin On: 08-Mar-2017 Request PT (Prothrobim Time) ([id number])Indication: halfway (current) use of anticoagulants (Renamed from terminal superintendent current use of anticoagulant therapy) On: 67-Oka-837917:48 Request Comments: Standing order PT (Prothrobim Time) ([id number])Indication: Anticoagulated on Coumadin On: 01-Mar-2017 Request PT (Prothrobim Time) ([id number])Indication: Anticoagulated on Coumadin On: 24-Feb-2017 Request PT (Prothrobim Time) ([id number])Indication: Anticoagulated on Coumadin On: 24-Feb-2017 Request PT (Prothrobim Time) ([id number])Indication: Anticoagulated on Coumadin On: 22-Feb-2017 Request PT (Prothrobim Time) ([id number])Indication: Anticoagulated on Coumadin On: 15-Feb-2017 Request PT (Prothrobim Time) ([id number])Indication: Anticoagulated on Coumadin On: 08-Feb-2017 Request PT (Prothrobim Time) ([id number])Indication: Anticoagulated on Coumadin On: 01-Feb-2017 Request PT (Prothrobim Time) ([id number])Indication: Anticoagulated on Coumadin On: 25-Jan-2017 Request PT (Prothrobim Time) ([id number])Indication: Anticoagulated on Coumadin On: 25-Jan-2017 Request PT (Prothrobim Time) ([id number])Indication: Anticoagulated on Coumadin On: 25-Jan-2017 Request PT (Prothrobim Time) ([id number])Indication: Anticoagulated on Coumadin On: 18-Jan-2017 Request PT (Prothrobim Time) ([id number])Indication: Anticoagulated on Coumadin On: 11-Jan-2017 Request PT (Prothrobim Time) ([id number])Indication: Anticoagulated on Coumadin On: 04-Jan-2017 Request PT (Prothrobim Time) ([id number])Indication: Anticoagulated on Coumadin On: 28-Dec-2016 Request PT (Prothrobim Time) ([id number])Indication: Anticoagulated on Coumadin On: 26-Dec-2016 Request PT (Prothrobim Time) ([id number])Indication: Anticoagulated on Coumadin On: 26-Dec-2016 Request PT (Prothrobim Time) ([id number])Indication: Anticoagulated on Coumadin On: 21-Dec-2016 Request PT (Prothrobim Time) ([id number])Indication: Anticoagulated on Coumadin On: 14-Dec-2016 Request PT (Prothrobim Time) ([id number])Indication: Anticoagulated on Coumadin On: 07-Dec-2016 Request PT (Prothrobim Time) ([id number])Indication: Anticoagulated on Coumadin On: 30-Nov-2016 Request PT (Prothrobim Time) ([id number])Indication: Anticoagulated on Coumadin On: 26-Nov-2016 Request PT (Prothrobim Time) ([id number])Indication: Anticoagulated on Coumadin On: 26-Nov-2016 Request PT (Prothrobim Time) ([id number])Indication: Anticoagulated on Coumadin On: 23-Nov-2016 Request PT (Prothrobim Time) ([id number])Indication: Anticoagulated on Coumadin On: 16-Nov-2016 Request PT (Prothrobim Time) ([id number])Indication: Anticoagulated on Coumadin On: 09-Nov-2016 Request PT (Prothrobim Time) ([id number])Indication: Anticoagulated on Coumadin On: 02-Nov-2016 Request PT (Prothrobim Time) ([id number])Indication: Anticoagulated on Coumadin On: 27-Oct-2016 Request PT (Prothrobim Time) ([id number])Indication: Anticoagulated on Coumadin On: 27-Oct-2016 Request PT (Prothrobim Time) ([id number])Indication: Anticoagulated on Coumadin On: 26-Oct-2016 Request PT (Prothrobim Time) ([id number])Indication: Anticoagulated on Coumadin On: 19-Oct-2016 Request PT (Prothrobim Time) ([id number])Indication: Anticoagulated on Coumadin On: 12-Oct-2016 Request PT (Prothrobim Time) ([id number])Indication: Anticoagulated on Coumadin On: 05-Oct-2016 Request PT (Prothrobim Time) ([id number])Indication: Anticoagulated on Coumadin On: 28-Sep-2016 Request PT (Prothrobim Time) ([id number])Indication: Anticoagulated on Coumadin On: 27-Sep-2016 Request PT (Prothrobim Time) ([id number])Indication: Anticoagulated on Coumadin On: 27-Sep-2016 Request PT (Prothrobim Time) ([id number])Indication: Anticoagulated on Coumadin On: 21-Sep-2016 Request PT (Prothrobim Time) ([id number])Indication: Anticoagulated on Coumadin On: 14-Sep-2016 Request PT (Prothrobim Time) ([id number])Indication: Anticoagulated on Coumadin On: 07-Sep-2016 Request PT (Prothrobim Time) ([id number])Indication: Anticoagulated on Coumadin On: 31-Aug-2016 Request PT (Prothrobim Time) ([id number])Indication: Anticoagulated on Coumadin On: 28-Aug-2016 Request PT (Prothrobim Time) ([id number])Indication: Anticoagulated on Coumadin On: 28-Aug-2016 Request PT (Prothrobim Time) ([id number])Indication: Anticoagulated on Coumadin On: 24-Aug-2016 Request PT (Prothrobim Time) ([id number])Indication: Anticoagulated on Coumadin On: 17-Aug-2016 Request PT (Prothrobim Time) ([id number])Indication: Anticoagulated on Coumadin On: 10-Aug-2016 Request PT (Prothrobim Time) ([id number])Indication: Anticoagulated on Coumadin On: 03-Aug-2016 Request PT (Prothrobim Time) ([id number])Indication: Anticoagulated on Coumadin On: 29-Jul-2016 Request PT (Prothrobim Time) ([id number])Indication: Anticoagulated on Coumadin On: 29-Jul-2016 Request PT (Prothrobim Time) ([id number])Indication: Anticoagulated on Coumadin On: 27-Jul-2016 Request PT (Prothrobim Time) ([id number])Indication: Anticoagulated on Coumadin On: 20-Jul-2016 Request PT (Prothrobim Time) ([id number])Indication: Anticoagulated on Coumadin On: 13-Jul-2016 Request PT (Prothrobim Time) ([id number])Indication: Anticoagulated on Coumadin On: 06-Jul-2016 Request Metabolic Panel, Comprehensive ([id number])Indication: Irritable Bowel Syndrome On: 10-Nrq-614034:28 Request TSH ([id number])Indication: Irritable Bowel Syndrome On: 26-Ube-451871:28 Request CBC, Platelets & Auto Diff ([id number])Indication: Irritable Bowel Syndrome On: 96-Bsk-300183:28 Request PT (Prothrobim Time) ([id number])Indication: Anticoagulated on Coumadin On: 87-Whx-622056:24 Request PT (Prothrobim Time) ([id number])Indication: DVT (deep venous thrombosis) On: 13-Drs-683423:11 Request Comments: INR - STANDING ORDER Vitamin D Hydroxy ([id number])Indication: Osteoporosis On: :16 Request TSH ([id number])Indication: Osteoporosis On: :16 Request CBC with auto diff ([id number])Indication: Benign Essential Hypertension On: 55-Rff-055710:16 Request METABOLIC PANEL, COMPREHENSIVE ([id number])Indication: Benign Essential Hypertension On: 69-Yyw-539242:16 Request LIPID PANEL ([id number])Indication: Hyperlipidemia On: 93-Qwr-719582:16 Request CBC W/AUTO DIFF WBC ([id number])Indication: Benign Essential Hypertension On: :34 Request METABOLIC PANEL, COMPREHENSIVE ([id number])Indication: Benign Essential Hypertension On: :34 Request TSH ([id number])Indication: Osteoporosis On: :39 Request CBC W/AUTO DIFF WBC ([id number])Indication: Osteoporosis On: :39 Request LIPID PANEL ([id number])Indication: Hyperlipidemia On: :38 Request METABOLIC PANEL, COMPREHENSIVE ([id number])Indication: Benign Essential Hypertension On: :38 Request PT (Prothrobim Time) ([id number])Indication: DVT (deep venous thrombosis) On: :18 Request Comments: FINGER STICKSTANDING ORDER PT (Prothrobim Time) ([id number])Indication: DVT (deep venous thrombosis) On: 16-Uqb-220023:28 Request Comments: Standing Order URINALYSIS, W/ MICRO ([id number])Indication: Benign Essential Hypertension On: :37 Request METABOLIC PANEL, COMPREHENSIVE ([id number])Indication: Benign Essential Hypertension On: 29-Xka-70219:37 Request LIPID PANEL ([id number])Indication: Hyperlipidemia On: :37 Request CBC W/AUTO DIFF WBC ([id number])Indication: DVT (deep venous thrombosis) On: :37 Request PT (Prothrobim Time) ([id number])Indication: DVT (deep venous thrombosis) On: 84-Rmx-789579:02 Request CBC WITH MANUAL DIFF ([id number])Indication: Benign Essential Hypertension On: :39 Request METABOLIC PANEL, COMPREHENSIVE ([id number])Indication: Hyperlipidemia On: :39 Request LIPID PANEL ([id number])Indication: Hyperlipidemia On: :39 Request PT (Prothrobim Time) ([id number])Indication: DVT (deep venous thrombosis) On: 22-Imh-03383:07 Request Comments: pls call transitional care liaison Dr Hunter with results on 05/20/13 PT (Prothrobim Time) ([id number])Indication: DVT (deep venous thrombosis) On: 17-Cge-776503:00 Request Comments: Standing Order PT (Prothrobim Time) ([id number])Indication: DVT (deep venous thrombosis) On: :59 Request Comments: INR - STANDING ORDER x 1 year URINALYSIS, W/ MICRO ([id number])Indication: Benign Essential Hypertension On: :15 Request CBC WITH MANUAL DIFF ([id number])Indication: Benign Essential Hypertension On: :15 Request METABOLIC PANEL, COMPREHENSIVE ([id number])Indication: Benign Essential Hypertension On: :14 Request LIPID PANEL ([id number])Indication: Hyperlipidemia On: :14 Request METABOLIC PANEL, COMPREHENSIVE ([id number])Indication: Benign Essential Hypertension On: :06 Request LIPID PANEL ([id number])Indication: Hyperlipidemia On: :06 Request URINE HANNAH CULTURE-IDENTIFICATN ([id number])Indication: Urinary frequency On: :56 Request URINE HANNAH CULTURE-IDENTIFICATN ([id number])Indication: Insect bite On: 01-Idb-298870:19 Request Lyme Disease,Serum, Western Blot ([id number])Indication: Insect bite On: 45-Bbu-811768:19 Request PT (Prothrobim Time) ([id number])Indication: DVT (deep venous thrombosis) On: 14-Dnx-834563:59 Request Comments: standing order LIPID PANEL ([id number])Indication: FAMILY HISTORY OF ISCHEMIC HEART DISEASE On: 35-Fcn-760832:28 Request LIPID PANEL ([id number])Indication: FAMILY HISTORY OF ISCHEMIC HEART DISEASE On: 7-Vyc-020552:51 Request Vitamin D Hydroxy ([id number])Indication: Osteoporosis On: 0-Iwz-765276:18 Request TSH ([id number])Indication: Osteoporosis On: 3-Emy-575548:18 Request URINALYSIS, W/ MICRO ([id number])Indication: Osteoporosis On: :18 Request CBC WITH MANUAL DIFF ([id number])Indication: Osteoporosis On: 9-Dsg-415884:18 Request METABOLIC PANEL, COMPREHENSIVE ([id number])Indication: Osteoporosis On: 4-Oil-478555:18 Request PTT (Activated Partial Thromboplastin Time) ([id number])Indication: DVT (deep venous thrombosis) On: 1-Zzz-128517:16 Request PT (Prothrobim Time) ([id number])Indication: DVT (deep venous thrombosis) On: 4-Kft-889911:16 Request Planned Encounters Medical; 3 Month FU - On: 17-May-2018 8:30 [facility] Selam Blair CNP, CNP, Selam Latif Planned Procedures DOPPLER ULTRASOUND OF LEFT LOWER On: 14-Feb-2018 Intent EXTREMITY FOR VENOUS THROMBOEMBOLISM Comments: STAT R/O DVT-Hx of DVT ([id number])By: Sigrid Mobley DEXA SCAN AXIAL SKELETON ([id number])By: On: 17-Dec-2017 Intent Selam Blair CNP, CNP, Mary E Aerosol Treatment ([id number])By: Johnnie On: 02-Jun-2017 Intent Selam DAVIES CNP, Mary E Ultrasound - LiverBy: Minalbrijesh DAVIESSelam On: 15-Dec-2016 Intent E Riddhiraul DAVIES, Selam Latif Aerosol Treatment ([id number])By: Johnnie On: 13-Oct-2016 Intent Selam DAVIES CNP, Mary E Aerosol Treatment ([id number])By: Aleksey On: 19-Feb-2015 Intent Eliana HOFFMANN Ultrasound - AortaBy: Helen Barnes DO On: 18-Dec-2014 Intent EKG ([id number])By: Helen Barnes DO On: 05-Nov-2014 Intent Comments: ekg showed normal sinus rhythym, normal axis, no acute st/t wave changes BILATERAL MAMMOGRAMS ([id number])By: Timothy On: 17-Sep-2014 Intent Helen [place] Radiology - Shoulder - LeftBy: Bonezzi On: 05-Mar-2014 Intent Fatimah RANDLE Comments: if not better with PT MAMMOGRAM, SCREENING, BOTH BREASTS On: 08-Aug-2013 Intent ([id number])By: Helen Barnes DO Eprescribed prescriptions ([id number])By: On: 08-Aug-2013 Intent Helen Barnes DO DXA, BONE DENSITY, AXIAL SKELETON On: 21-Oct-2012 Intent ([id number])By: Helen Barnes DO Comments: dexa- dec Eprescribed prescriptions ([id number])By: On: 21-Oct-2012 Intent So Bailey Breast Screening - BilateralBy: Timothy On: 19-Sep-2012 Intent Helen [place] Eprescribed prescriptions ([id number])By: On: 30-Aug-2012 Intent So Bailey Spirometry ([id number])By: Helen Barnes DO On: 11-Mar-2012 Intent Brijesh Comments: good effort and curve mild obst- Doppler Ultrasound OtherBy: Timothy [place], On: 11-Mar-2012 Intent Helen Coley Comments: both legs- stat call results Eprescribed prescriptions ([id number])By: On: 11-Mar-2012 Intent So Bailey TD Injection , IM ([id number])By: Leo, On: 11-Mar-2012 Intent So Comments: 2003 FLU VAC, SPLIT, >3 YEARS, INTRAMUSC On: 11-Mar-2012 Intent ([id number])By: So Bailey Comments: got at [facility] Instructions Name Dates Details BMI [...] Coumadin : DISCONTINUED - PT (PROTHROMBIN TIME) ([id number]) Indication: Anticoagulated on Coumadin Irritable Bowel Syndrome [...] Instructions Indication: Osteoporosis Encounters Office Visit On: 14-Feb-2018 16:19 Encounter Reason: [...] 07-Feb-2018 13:34 Nonsmoker, BMI 22.0-22.9, adult, Leukopenia, halfway (current) use of anticoagulants (Renamed from terminal superintendent current use of anticoagulant therapy), Anticoagulated on [...] 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 The patient has noticed nothing from the geriatic depression scale. Other providers contributing to the patient's care are supervisor press room (dr. meseret santana) and other: (eye- dr. 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 The patient has noticed nothing from the geriatic depression scale. Other providers contributing to the patient's care are other: (dr crawford for eyes). 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 The p atient has noticed nothing from the geriatic depression scale. Other providers contributing to the patient's care are other: (ENT and dr crawford for eyes). Note for Annual Medicare Exam: Pt has WWE done by her [employer]., [ADDITIONAL REASON] Follow up for chronic medical [...] cyst is gone- - still fluid in [place] and calcification- going to have D?C- [...] Follow up for chronic medical issues: bernard ght stable bp is good- sheis off antioibitc [...] diet and still seeing lyme specialist in [place]- her weight comeing down and exercsing more [...] chronic medical issues: seeing lyme specialist in [place] and on meds for this and bartone[place]- [...]
--- OUTSIDE RECORDS SUMMARY | 2018-06-24 14:29 | XMS RPT_ITS | Continuity of Care Document ---
:1950 Author Organization [facility] Address [facility] [address] [place] [address] Phone Care Team Providers Name Role Phone [...] Brenda Start : 13-Sep-2017 Active Calcium 1200 1742-1656 MG-UNIT Oral Tablet Chewable daily (1561-6298 MG-UNIT) Active Cinnamon 500 MG Oral Capsule [...] Quantity: 30 {Tablet} Refills: 1 Ordered:17-Dec-2017 Johnnie PHYSICIAN ASSISTANT PRIMARY CARE, Selam Taveras PHYSICIAN ASSISTANT PRIMARY CARE, Brenda Start : 17-Dec-2017 Active Latanoprost 0.005 [...] Quantity: 1 {Inhaler} Refills: 0 Ordered:02-Jun-2017 Long EMERGENCY MANAGER, Aida L Start : 02-Jun-2017 Active PROBIOTIC (Oral Capsule) 2 (two) Capsule qd for 0 days Quantity: 60 {Capsule} Refills: 0 Ordered:21-Oct-2012 Fatimah Mccray MD Start : 14-Oct-2012 Active Tessalon Perles 100 MG Oral Capsule 1 (one) Capsule tid prn for cough for 0 days Quantity: 30 {Capsule} Refills: 1 Ordered:02-Jun-2017 Johnnie PHYSICIAN ASSISTANT PRIMARY CARE, Selam Taveras [facility], Selam Latif Start : 02-Jun-2017 Active [...] 500MG (Oral Tablet) 1 (one) Tablet bid a77rhij for 10 days Quantity: 20 {Tablet} Refills: [...] (M85.80, 733.90) Status: Inactive as of 11-Mar-2012 [place] [facility] (H10.029, 372.03) Status: Inactive as of [...] Status: Resolved as of 21-Oct-2012 Vaccine for llrbtgtwjn-kmsvnxa-cqsyqdbyx with poliomyelitis (Z23, V06.3) Status: Inactive as of 21-Oct-2012 Procedures Procedure Dates Details Appendectomy Completed D&C Completed Comments: Tonsillectomy Completed Tubal Ligation Completed Date Value Details 23-Dec-2017 Dexa Bone Density Study Result: Comments: See Note; NOTES: [facility] Imaging Services [address] [place] [address] Dexa Bone Density Study MR#: [id number] Acct: [id number] Name: YAHAIRA BRYANT Addi Rep #: [id number] : 1950 F 67 From: Cole Coronado MD PCP: Selam Blair NP Status: REG CLI Study: Dexa Bone Density Study Date of Exam: 12/23/17 Exam# [id number] Ordering Dr: Selam Blair STUDY: DUAL ENERGY [...] Cole Coronado MD at 8:50 EDT Tel [phone], Service support , CC: Selam Blair NP Glove Brusher: Signed 07-Oct-2017 SCREENING MAMM (CAD), BILAT Result: Comments: See Note; NOTES: [facility] Imaging Services [address] [place] [address] SCREENING MAMM (CAD), BILAT MR#: [id number] Acct: [id number] Name: YAHAIRA BRYANT Rep #: [id number] : 1950 F 67 From: Cole Coronado MD PCP: Selam Blair NP Status: REG CLI Study: SCREENING MAMM (CAD), BILAT Date of Exam: 10/07/17 Exam# [id number] Ordering Dr: Aliza Santana MD MAMMOGRAPHY - [...] delay biopsy of a clinically suspicious abnormality. [id number] Electronically Signed: Cole Coronado MD at 11:23 EDT Tel [phone], Service support , CC: Selam Blair NP; Aliza Santana MD Glove Brusher: Signed 23-Sep-2017 Downtime Report Result: Comments: See Note; NOTES: [facility] Medical Records Department [address] [place] [address] Downtime Report MR#: [id number] Acct: [id number] Name: YAHAIRA BRYANT Rep #: [id number] : 1950 67 From: Jered Kumar PCP: Selam Blair NP Status: REG CLI This patient was seen during an EMR downtime September 06, 2017 - September 13, 2017. This patient may have a combination of p aper and electronic documentation or all paper documentation. All documentation is viewable within the e-chart portion of [employer] for each patient visit. 16-Dec-2016 Liver Result: Comments: See Note; NOTES: [facility] Imaging Services [address] [place] [address] Liver MR#: [id number] Acct: [id number] Name: YAHAIRA BRYANT Rep #: [id number] : 1950 F 66 From: Jose Mcghee MD PCP: Selam Blair Status: REG CLI Study: Liver Date of Exam: 12/16/16 Exam# [id number] Ordering Dr: Selam Blair STUDY: ABDOMINAL ULTRASOUND [...] MD at 16:28 EDT , Service support [phone], CC: Selam Blair Glove Brusher: Signed 21-Dec-2014 Aorta Result: Comments: See Note; NOTES: [facility] Imaging Services [address] [place] [address] Ultrasound Report MR#: [id number] Acct: [id number] Name: YAHAIRA BRYANT Rep #: : 1950 F 64 From: Cole Coronado MD PCP: Helen Barnes DO Status: REG CLI Study: Aorta Date of Exam: 12/21/14 Exam# [id number] Ordering Dr: Helen Barnes DO PROCEDURES: ULTRASOUN [...] Cole Coronado MD at 9:45 EDT Tel [phone], Service support [phone], CC: Helen Barnes DO Glove Brusher: Signed 12-Dec-2014 Bilat Scrn Digital AND CAD Result: Comments: See Note; NOTES: [facility] Imaging Services [address] [place] [address] Breast Imaging Report MR#: [id number] Acct: [id number] Name: YAHAIRA BRYANT Rep # : [id number] : 1950 F 64 From: Gabino South MD PCP: Helen Barnes DO Status: REG CLI Study: Bilat Scrn Digital AND CAD Date of Exam: 12/12/14 Exam# [id number] Ordering Dr: Helen Barnes DO M AMMOGRAPHY [...] of a clinically suspicious abnormality. Electronically Signed: mAadou South MD at 14:51 EDT Tel , Service support [phone], CC: Helen Barnes DO Glove Brusher: Signed 12-Dec-2014 Bilat Scrn Digital AND CAD Result: Comments: See Note; NOTES: [facility] Imaging Services [address] [place] [address] Breast Imaging Report MR#: [id number] Acct: [id number] Name: YAHAIRA BRYANT Rep # : [id number] : 1950 F 64 From: Gabino South MD PCP: Helen Barnes DO Status: REG CLI Study: Bilat Scrn Digital AND CAD Date of Exam: 12/12/14 Exam# [id number] Ordering Dr: Helen Barnes DO A DDENDUM by Cole Coronado MD on 12/17/14 at 1003 ADDENDUM This is an addendum report for BI -RADS category. BI-RADS category 2. Electronically Signed: Cole Coronado MD at 10:03 EDT Tel [phone], Service support [phone], 12/17/14 1003 D ate cc: Helen Barnes [...] at 14:51 EDT Tel , Service support [phone], CC: Helen Barnes DO Glove Brusher: Signed 03-Dec-2014 Operative Report Result: Comments: See Note; NOTES: [facility] Medical Records Department [address] [place] [address] Operative Report MR#: [id number] Acct: [id number] Name: YAHAIRA BRYANT Rep #: [id number] : 1950 64 From: Aliza Santana MD PCP: Helen Barnes DO Status: [facility] DATE OF SERVICE: 11/26/2014 DATE OF SERVICE: [...] time. Aliza Santana MD T: NTS JOB: [id number] 12/03/14 1321 <Electronically signed by An jamison Santana MD> Date Aliza Santana MD Cosigner Signature (If Indicated): Date CC: Aleyda Santana MD; Helen Barnes DO Date Dictated: 11/29/14918 Date Transcribed: 11/29/14918 Glove Brusher: Signed 26-Nov-2014 Discharge Instruction Result: Comments: See Note; NOTES: [facility] Medical Records Department [address] [place] [address] Instructions for Home/Discharge Instructions 11/26/14 1200 MR#: [id number] ct: [id number] Name: YAHAIRA BRYANT Rep #: [id number] : 1950 64 From: Aliza Santana MD PCP: Helen Barnes DO Status: REG [facility] Discharge Diet: No Restrictions Discharge Activity: Return [...] Operative Report Result: Comments: See Note; NOTES: [facility] Medical Records Department [address] [place] [address] Operative Report 11/26/14 1159 MR#: [id number] Acct: [id number] Name: SERGEIRina CERVANTESYAHAIRA R Rep #: [id number] : 1950 64 From: Aliza Santana MD PCP: Helen Barnes DO Status: REG SDC Y Location: [place] [address] Operative Report (Blank) Date of Procedure: 11/26/14 [...] MD; Helen Barnes DO Signed 05-Nov-2014 Spirometry (59672) Comments: good effort aand curve mild obstruction Result: 06-Jun-2014 Transvaginal Non- Result: Comments: See Note; NOTES: [facility] Imaging Services [address] [place] [address] Ultrasound Report MR#: [id number] Acct: [id number] Name: YAHAIRA BRYANT R Rep #: [id number] : 1950 F 63 From: Telly Cruz DO PCP: Helen Barnes DO Status: REG CLI Study: Transvaginal Non- Date of Exam: 06/06/14 Exam# [id number] Ordering Dr: Izzy Becerra STUDY: ULTRASOUND TRANSVAGINAL [...] DO at 13:34 EST , Service support [phone], CC: Helen Barnes DO; Izzy Becerra MD Glove Brusher: Signed 06-Jun-2014 Pelvic (Non ) Result: Comments: See Note; NOTES: [facility] Imaging Services [address] [place] [address] Ultrasound Report MR#: [id number] Acct: [id number] Name: YAHAIRA BRYANT Rep #: [id number] : 1950 F 63 From: Telly Cruz DO PCP: Helen Barnes DO Status: REG CLI Study: Pelvic (Non ) Date of Exam: 06/06/14 Exam# [id number] Ordering Dr: Izzy Becerra MD STUDY: ULTRASOUND [...] DO at 13:34 EST , Service support [phone], CC: Helen Barnes DO; Izzy Becerra MD Glove Brusher: Signed 11-Oct-2013 Bilat Scrn Digital & CAD Result: Comments: See Note; NOTES: [facility] Imaging Services [address] [place] [address] Breast Imaging Report MR#: [id number] Acct: [id number] Name: YAHAIRA BRYANT Rep #: [id number] : 1950 F 63 From: Bradly Lr MD PCP: Helen Barnes DO Status: REG CLI Exam# [id number] Ordering Dr: Helen Barnes DO MAMMOGRAPHY - [...] Bradly Lr MD at 10:37 EDT , Fluential e support [phone], CC: Helen Barnes DO Glove Brusher: Signed Family History Unknown Family Member Name [...] smoker Vital Signs Date Test Result Details 54-Xzg-79182:25 Temperature 97.4 f Comments: Method: Temporal Pulse [...] Value Details :18 Prothrombin Time w/INR Comments: [facility] [address] [place], [place], [address] INR 2.7 (Normal) PROTIME 28.9 s (Abnormal) Range: 11.7-14.9 :58 Bilirubin, Direct Comments: [facility] [address] [place], [address] D BILI 0.18 mg/dL (Normal) Range: 0.00-0.30 :58 CBC W/Diff, Automated Comments: [facility] [address] [place], [address] Absolute Lymph 1.49 {X10_3/ul} (Normal) [...] (Abnormal) Range: 4.4-11.0 :58 Total Bilirubin Comments: [facility] [address] [place], [place], [address] T BILI 0.80 mg/dL (Normal) Range: 0.20-1.00 7-Gqy-078202:14 Prothrombin Time w/INR Comments: [facility] [address] [place], [place], [address] INR 2.6 (Normal) PROTIME 27.6 s (Abnormal) Range: 11.7-14.9 45-Mjp-342890:01 CBC W/Diff, Automated Comments: [facility] [address] [place], [place], [address] Absolute Lymph 1.26 {X10_3/ul} (Normal) Range: 0.83-4.51 [...] 4.2-5.4 WBC 3.3 K/mm3 (Abnormal) Range: 4.4-11.0 93-Soa-715622:01 Comprehensive Metabolic Profil Comments: [facility] [address] [place], [place], [address] GAP 9 (Normal) Range: 5-15 CO2 28.0 [...] Comments: Please note revised GLUCOSE reference range oyaqbejjp51/02/2018. 17-Uyp-689233:15 Prothrombin Time w/INR Comments: [facility] [address] [place], [address] INR 3.0 (Normal) PROTIME 31.3 s (Abnormal) Range: 11.7-14.9 :26 Prothrombin Time w/INR Comments: [facility] [address] [place], [address] INR 2.8 (Normal) PROTIME 29.3 s (Abnormal) Range: 11.7-14.9 25-Ark-745321:50 Prothrombin Time w/INR Comments: [facility] [address] [place], [address] INR 2.7 (Normal) PROTIME 28.7 s (Abnormal) Range: 11.7-14.9 :35 Prothrombin Time w/INR Comments: [facility] [address] [place], [address] INR 2.9 (Normal) PROTIME 30.2 s (Abnormal) Range: 11.7-14.9 :44 Prothrombin Time w/INR Comments: [facility] [address] [place], [address] INR 2.9 (Normal) PROTIME 30.1 s (Abnormal) Range: 11.7-14.9 :55 Prothrombin Time w/INR Comments: [facility] [address] [place], [address] INR 2.8 (Normal) PROTIME 29.4 s (Abnormal) Range: 11.7-14.9 :10 Prothrombin Time w/INR Comments: [facility] [address] [place], [address] INR 2.4 (Normal) PROTIME 26.2 s (Abnormal) Range: 11.7-14.9 :09 Prothrombin Time w/INR Comments: [facility] [address] [place], [address] INR 1.1 (Normal) PROTIME 14.0 s (Normal) Range: 11.7-14.9 :29 Prothrombin Time w/INR Comments: RESULT(S) PREVIOUSLY REPORTED ON MANUAL REQUISITION DURINGDOWNTIME.[facility] [address] [place], [address] INR 1.3 (Normal) PROTIME 16.4 s (Abnormal) Range: 11.7-14.9 :30 Prothrombin Time w/INR Comments: [facility] [address] [place], [address] INR 2.0 (Normal) PROTIME 22.9 s (Abnormal) Range: 11.7-14.9 :01 Prothrombin Time w/INR Comments: [facility] [address] [place], [address] INR 1.5 (Normal) PROTIME 18.0 s (Abnormal) Range: 11.7-14.9 :46 Prothrombin Time w/INR Comments: [facility] [address] [place], [address] INR 1.9 (Normal) PROTIME 22.2 s (Abnormal) Range: 11.7-14.9 17-Sky-925682:25 Prothrombin Time w/INR Comments: [facility] [address] [place], [address] INR 1.9 (Normal) PROTIME 22.0 s (Abnormal) Range: 11.7-14.9 :59 Prothrombin Time w/INR Comments: [facility] [address] [place], [address] INR 2.0 (Normal) PROTIME 22.8 s (Abnormal) Range: 11.7-14.9 :58 Prothrombin Time w/INR Comments: [facility] [address] [place], [address] INR 1.8 (Normal) PROTIME 20.7 s (Abnormal) Range: 11.7-14.9 56-Kiz-194804:31 Prothrombin Time w/INR Comments: [facility] [address] [place], [address] INR 1.7 (Normal) PROTIME 19.9 s (Abnormal) Range: 11.7-14.9 24-Tzo-729686:20 Prothrombin Time w/INR Comments: [facility] [address] [place], [address] INR 2.6 (Normal) PROTIME 27.9 s (Abnormal) Range: 11.7-14.9 :39 Prothrombin Time w/INR Comments: [facility] [address] [place], [place], [phone] INR 2.9 (Normal) PROTIME 30.5 s (Abnormal) Range: 11.7-14.9 82-Gzn-218521:03 Rapid Flu (59553 x 2) Influenza A Ag neg (Normal) 33-Qgu-233402:00 Prothrombin Time w/INR Comments: [facility] [address] [place], [place], [address] ; See pt message INR 3.7 (Abnormal) Comments: CRITICAL VALUE VERIFIED. CALLED TO KOLTON 05/31/17 1130 Nii Lind.RESULTS READ BACK BY SAME. PROTIME 35.0 s (Abnormal) Range: 11.7-14.9 :21 Prothrombin Time w/INR Comments: [facility] [address] [place], [address] INR 4.7 (Abnormal) Comments: CRITICAL VALUE VERIFIED. CALLED TO GEOVANNI AT [facility]05/24/17 0956 Violeta Noble.RESULTS READ BACK BY SAME . PROTIME 42.4 s (Abnormal) Range: 11.7-14.9 49-Kqb-918140:27 Prothrombin Time w/INR Comments: [facility] [address] [place], [address] INR 1.9 (Normal) PROTIME 20.9 s (Abnormal) Range: 11.7-14.9 :42 Prothrombin Time w/INR Comments: [facility] [address] [place], [address] INR 4.3 (Abnormal) Comments: CRITICAL VALUE VERIFIED. CALLED TO 05/10/17 0830 Josue Velazquez.RESULTS READ BACK BY . PROTIME 39.8 s (Abnormal) Range: 11.7-14.9 :18 Prothrombin Time w/INR Comments: [facility] [address] [place], [address] INR 2.4 (Normal) PROTIME 24.8 s (Abnormal) Range: 11.7-14.9 :18 Prothrombin Time w/INR Comments: [facility] [address] [place], [address] INR 2.4 (Normal) PROTIME 25.2 s (Abnormal) Range: 11.7-14.9 43-Hma-308923:00 Prothrombin Time w/INR Comments: [facility] [address] [place], [address] INR 2.5 (Normal) PROTIME 25.8 s (Abnormal) Range: 11.7-14.9 :32 Prothrombin Time w/INR Comments: [facility] [address] [place], [address] INR 2.1 (Normal) PROTIME 22.7 s (Abnormal) Range: 11.7-14.9 :23 Prothrombin Time w/INR Comments: [facility] [address] [place], [address] INR 2.3 (Normal) PROTIME 24.6 s (Abnormal) Range: 11.7-14.9 :14 Prothrombin Time w/INR Comments: [facility] [address] [place], [address] INR 2.0 (Normal) PROTIME 21.9 s (Abnormal) Range: 11.7-14.9 4-Gss-182896:18 Prothrombin Time w/INR Comments: [facility] [address] [place], [address] INR 2.5 (Normal) PROTIME 25.6 s (Abnormal) Range: 11.7-14.9 :39 Prothrombin Time w/INR Comments: [facility] [address] [place], [address] INR 2.1 (Normal) PROTIME 22.7 s (Abnormal) Range: 11.7-14.9 :40 Prothrombin Time w/INR Comments: [facility] [address] [place], [address] INR 2.6 (Normal) PROTIME 26.8 s (Abnormal) Range: 11.7-14.9 :40 Prothrombin Time w/INR Comments: [facility] [address] [place], [address] INR 2.2 (Normal) PROTIME 23.8 s (Abnormal) Range: 11.7-14.9 7-Scz-591978:21 Prothrombin Time w/INR Comments: [facility] [address] [place], [address] INR 1.8 (Normal) PROTIME 20.1 s (Abnormal) Range: 11.7-14.9 :30 Prothrombin Time w/INR Comments: [facility] [address] [place], [address] INR 3.0 (Normal) PROTIME 30.2 s (Abnormal) Range: 11.7-14.9 :45 Prothrombin Time w/INR Comments: [facility] [address] [place], [address] INR 2.9 (Normal) PROTIME 29.1 s (Abnormal) Range: 11.7-14.9 :52 Prothrombin Time w/INR Comments: [facility] [address] [place], [address] INR 1.4 (Normal) PROTIME 17.0 s (Abnormal) Range: 11.7-14.9 :27 Prothrombin Time w/INR Comments: [facility] [address] [place], [address] INR 2.0 (Normal) PROTIME 21.7 s (Abnormal) Range: 11.7-14.9 :21 Prothrombin Time w/INR Comments: [facility] [address] [place], [address] INR 2.3 (Normal) PROTIME 24.1 s (Abnormal) Range: 11.7-14.9 :43 Prothrombin Time w/INR Comments: [facility] [address] [place], [address] INR 2.9 (Normal) PROTIME 29.1 s (Abnormal) Range: 11.7-14.9 :47 Prothrombin Time w/INR Comments: [facility] [address] [place], [address] INR 2.3 (Normal) PROTIME 24.0 s (Abnormal) Range: 11.7-14.9 :25 CBC W/Diff, Automated Comments: [facility] [address] [place], [address] ; see other message Absolute Lymph 2.07 [...] Range: 4.4-11.0 07-Jul-20167:25 Comprehensive Metabolic Profil Comments: [facility] [address] [place], [address] GAP 3 (Abnormal) Range: 5-15 CO2 28.0 [...] Range: 70-110 :25 Prothrombin Time w/INR Comments: [facility] [address] [place], [address] INR 3.5 (Abnormal) Comments: CRITICAL VALUE VERIFIED. CALLED TO PATRICE [place]07/07/16 [facility] Radha Calderon.RESULTS READ BACK BY SAME . PROTIME 33.9 s (Abnormal) Range: 11.7-14.9 :25 Thyroid Stim Hormone (TSH) Comments: [facility] [address] [place], [address] TSH 3.25 {uIU/mL} (Normal) Range: 0.358-3.74 :47 Prothrombin Time w/INR Comments: [facility] [address] [place], [address] INR 2.6 (Normal) Comments: ADDENDA: handled by Dr. Phillips PROTIME 27.5 s (Abnormal) Range: 11.7-14.9 :32 Prothrombin Time w/INR Comments: [facility] [address] [place], [address] INR 2.3 (Normal) PROTIME 25.5 s (Abnormal) Range: 11.7-14.9 :15 Prothrombin Time w/INR Comments: [facility] [address] [place], [address] INR 2.6 (Normal) PROTIME 27.7 s (Abnormal) Range: 11.7-14.9 :29 Prothrombin Time w/INR Comments: [facility] [address] [place], [address] INR 1.3 (Normal) PROTIME 16.7 s (Abnormal) Range: 11.7-14.9 :19 Prothrombin Time w/INR Comments: [facility] [address] [place], [address] INR 2.1 (Normal) PROTIME 23.3 s (Abnormal) Range: 11.7-14.9 :14 Prothrombin Time w/INR Comments: [facility] [address] [place], [address] INR 2.0 (Normal) PROTIME 22.5 s (Abnormal) Range: 11.7-14.9 :21 Prothrombin Time w/INR Comments: [facility] [address] [place], [address] INR 2.7 (Normal) PROTIME 28.5 s (Abnormal) Range: 11.7-14.9 :30 Prothrombin Time w/INR Comments: [facility] [address] [place], [address] INR 2.4 (Normal) PROTIME 25.9 s (Abnormal) Range: 11.7-14.9 :41 Prothrombin Time w/INR Comments: [facility] [address] [place], [address] INR 2.5 (Normal) PROTIME 26.9 s (Abnormal) Range: 11.7-14.9 :09 Prothrombin Time w/INR Comments: [facility] [address] [place], [address] INR 3.4 (Normal) PROTIME 34.4 s (Abnormal) Range: 11.7-14.9 :11 Prothrombin Time w/INR Comments: [facility] [address] [place], [address] INR 2.5 (Normal) PROTIME 26.6 s (Abnormal) Range: 11.7-14.9 :33 Prothrombin Time w/INR Comments: [facility] [address] [place], [address] INR 1.5 (Normal) PROTIME 18.1 s (Abnormal) Range: 11.7-14.9 :12 Prothrombin Time w/INR Comments: [facility] [address] [place], [address] INR 1.1 (Normal) PROTIME 14.4 s (Normal) Range: 11.7-14.9 :51 Prothrombin Time w/INR Comments: [facility] [address] [place], [address] INR 3.6 (Abnormal) Comments: CRITICAL VALUE REPEATED AND VERIFIED. CALLED TO Maycol DAVISON02/25/15 1001 Elsie Longoria.RESULTS READ BACK BY MARGUERITE . PROTIME 35.3 s (Abnormal) Range: 11.7-14.9 :23 Prothrombin Time w/INR Comments: [facility] [address] [place], [address] INR 3.3 (Normal) PROTIME 33.3 s (Abnormal) Range: 11.7-14.9 :13 Prothrombin Time w/INR Comments: [facility] [address] [place], [address] INR 2.4 (Normal) PROTIME 26.5 s (Abnormal) Range: 11.7-14.9 :32 Prothrombin Time w/INR Comments: [place] [facility] [address] [place], [address] INR 1.4 (Normal) PROTIME 17.8 s (Abnormal) Range: 11.7-14.9 :09 Prothrombin Time w/INR Comments: [facility] [address] [place], [address] INR 1.2 (Normal) PROTIME 15.9 s (Abnormal) Range: 11.7-14.9 :12 Prothrombin Time w/INR Comments: [facility] [address] [place], [address] INR 2.4 (Normal) PROTIME 26.4 s (Abnormal) Range: 11.7-14.9 :20 Prothrombin Time w/INR Comments: [facility] [address] [place], [address] INR 2.2 (Normal) PROTIME 24.5 s (Abnormal) Range: 11.7-14.9 :11 Prothrombin Time w/INR Comments: Test performed at:[facility] [address] [place] [address] INR 2.2 (Normal) PROTIME 24.1 s (Abnormal) Range: 11.7-14.9 :29 Prothrombin Time w/INR Comments: Test performed at:[facility] [address] [place] [address] INR 3.7 (Abnormal) Comments: CRITICAL VALUE REPEATED AND VERIFIED. CALLED TO KIKE WOMACK12/21/14 [facility]RESULTS READ BACK BY SAME . PROTIME 36.5 s (Abnormal) Range: 11.7-14.9 :25 Prothrombin Time w/INR Comments: Test performed at:[facility] [address] [place] [address] INR 2.5 (Normal) PROTIME 27.1 s (Abnormal) Range: 11.7-14.9 :23 Miscellaneous Lab Procedure Comments: Comments: [id number] PTH PLUS CALCIUM LAV AND RED RFTest(s) Ordered: [id number] PTH PLUS CALCIUM LAV AND RED RFTest performed at:[facility] [address] [place] [address] [facility] Comments: TEST RESULT LIMITSCa+PTH Intact Calcium, Serum [...] - 65 < 8.6 TESTING PERFORMED AT [facility]. ORIGINAL REPORT ON FILE IN LAB CONTAINS AD DITIONAL TEST SITE INFORMATION. :23 Prothrombin Time w/INR Comments: Test performed at:[facility] [address] [place] [address] INR 4.0 (Abnormal) Comments: CRITICAL VALUE REPEATED AND VERIFIED. CALLED TO AGIEJN18/11/15 0933 [address] Foote.RESULTS READ BACK BY SAME . PROTIME 38.3 s (Abnormal) Range: 11.7-14.9 [id number]:23 Vitamin D 1,25-Dihydroxy Comments: Test performed at:[facility] [address] [place] [address] VITD 1,25 88884 55.5 pg/mL (Normal) Range: 19.9-79.3 Comments: Performed at: [address] [id number] Director: Juan Ontiveros MD, Phone: [phone] :[phone] Vitamin D,25 Hydroxy Comments: Test performed at:[facility] [id number] [place] [address] Vitamin D 25-OH 70.3 ng/mL (Normal) Comments: Vitamin D 25(OH) Status Range Deficiency <20 ng/mL (50nmol/L) Insuffciency 20 - 30 ng/mL (50 - 75 nmol/L) Sufficiency 30 - 100 ng/mL (75 - 250 nmol/L) Toxicity >100 ng/mL (>250 nmol/L) :04 Prothrombin Time w/INR Comments: Test performed at:[facility] [address] [place] [address] INR 2.1 (Normal) PROTIME 23.5 s (Abnormal) Range: 11.7-14.9 :12 Prothrombin Time w/INR Comments: Test performed at:[facility] [address] [place] [address] INR 1.6 (Normal) PROTIME 18.9 s (Abnormal) Range: 11.7-14.9 :10 Prothrombin Time w/INR Comments: Test performed at:[facility] [id number] [place] [place] [address] INR 1.1 (Normal) PROTIME 14.1 s (Normal) Range: 11.7-14.9 74-Cyf-[id number]: ENDOMETRIAL BX/CURETTINGS See Note (Normal) Comments: Test performed at:[facility] [address] [place] [address] 49 Comments: Patient: YAHAIRA BRYANT : 1950 (64/F) Acct Num: [id number] Phys: Aliza Santana MD Unit Num: [id number] Loc: [facility] Specimen: [id number] Received: 11/26/14 - 1217 Spec Type: EN [...] owens. / NICOLÁS:papito 11/26/14 TC: 5 CPT: 53867 HEADER OPERATION: Hysteroscopy, diagnostic, D AND C PRE-OP DIAGNOSIS: Postmenopausal bleeding TISSUE SUBMITTED: Endometrial curettings MICROSCOPIC DESCRIPTION Slides are reviewed. MICROSCOPIC DIAGNOSIS Endometrial curettings: Scant strips of benign endometrial epithelium and superficial fragment of benign endometrial tissue, consistent with atrophic endometri um. Fragments of benign endocervical epithelium. SJ:papito 11/27/14 Signed Jeffy Suazo 11/27/14 <signature on file> 72-Gni-489869:39 INR Fingerstick Comments: Test performed at:[facility] [address] [place] [address] INR ISTAT 1.10 (Normal) Comments: Critical Value > 3.5; ADDENDA: this is for pre-op, will resume tomorrow and recheck it in 1 week. 85-Otj-306905:39 Prothrombin Time Fingerstick Comments: Test performed at:[facility] [address] [place] [address] PROTIME ISTAT 13.2 {SEC} (Normal) Range: 11.9-14.4 Comments: Reference Range 11.9 - 14.4 :41 Partial Thromboplast Time Comments: Test performed at:[facility] [address] [place] [address] PTT 40.9 s (Abnormal) Range: 24.1-36.2 :41 Prothrombin Time w/INR Comments: Test performed at:[facility] [address] [place] [address] INR 2.6 (Normal) PROTIME 27.4 s (Abnormal) Range: 11.7-14.9 57-Cwj-045614:41 Type AND Screen Comments: Surgery Date: 11/26/14Hx of Preganancy in last 3 Months NoEver experience any problems with transfusion(s)? NHx of Transfusion in last 3 Months NReason for Type AND Screen/Red Cells: SURGERYSURGI ADELSO PROCEDURE: .Test performed at:[facility] [address] [place] [address] Antibody Screen NEGATIVE (Normal) BLOOD TYPE GEL A POSITIVE (Normal) 67-Gfi-41661:09 CBC W/Diff, Automated Comments: Test performed at:[facility] [address] [place] [address] Absolute Lymph 2.07 {X10_3/ul} (Normal) [...] :09 Comprehensive Metabolic Profil Comments: Test performed at:[facility] [address] [place] [address] GAP 6 (Normal) Range: 5-15 CO2 29.0 [...] Comments: Please note revised CREATININE reference range aihhffibw65/22/2015. BUN 19 mg/dL (Abnormal) Range: 7-18 GLU 75 mg/dL (Normal) Range: 70-110 :09 Prothrombin Time w/INR Comments: Test performed at:[facility] [address] [place] [address] INR 2.4 (Normal) PROTIME 25.8 s (Abnormal) Range: 11.7-14.9 :13 Prothrombin Time w/INR Comments: Test performed at:[facility] [address]bi[address] [place] [address] INR 1.8 (Normal) PROTIME 21.2 s (Abnormal) Range: 11.7-14.9 :06 Prothrombin Time w/INR Comments: Test performed at:[facility] [address] [place] [id number] INR 2.2 (Normal) PROTIME 24.4 s (Abnormal) Range: 11.7-14.9 :50 Prothrombin Time w/INR Comments: Test performed at:[facility] [address] [place] [address] INR 1.7 (Normal) PROTIME 20.3 s (Abnormal) Range: 11.7-14.9 15-Dbn-613960:16 Estrogen, Total, Serum Comments: Comments: TSHHas Patient had Radioactive Injection for X-ray?: NTest performed at:[facility] [address] [place] [address] ESTROGEN 4549 54 pg/mL (Normal) Comments: Prepubertal <40 Female Cycle: 1-10 Days 61 - 394 11-20 Days 122 - 437 21-30 Days 156 - 350 Post-Menopausal <40 HMG Treatment for Ovulation Induction: 400 - 800Performed at: [facility] Lab[address] [id number] Director: Juan Ontiveros MD, Phone: [phone] 80-Pdk-595821:16 Free T3 Comments: Comments: TSHTest performed at:[facility] [address] [place] [address] FREE T3 2.6 pg/mL (Normal) Range: 2.18-3.98 58-Uau-855416:16 Hemoglobin A1c Comments: Test performed at:[facility] [address] [place] [address] HGB A1C 5.0 % (Normal) Range: 4.2-6.3 91-Anh-877462:16 Progesterone Level Comments: Test performed at:[facility] [address]vv[address] [place] [address] Progesterone 0.48 ng/mL (Normal) Comments: Progesterone Reference Table: UNITS Female: Follicular 0.15 - 1.40 ng/mL Luteal 3.34 - 25.56 ng/mL Mid-luteal 4.44 - 28.03 ng/mL Postmenopausal 0.0 - 0.73 ng/mL : 1st Trimester 11.22 - 90.00 ng /mL 2nd Trimester 25.55 - 89.40 ng/mL 3rd Trimester 48.40 -422.50 ng/mL 65-Ppn-797957:16 T4 Free Direct Comments: Comments: TSHTest performed at:[facility] [address] [place] [address] T4 FREE DIRECT 1.16 ng/dL (Normal) Range: 0.76-1.46 99-Rvq-247092:16 Testosterone, Serum Total Comments: Test performed at:[facility] Utulxqpzix5343 [facility] [place] [address] ; ordered by Dr. Santana Testosterone 35 ng/dL (Normal) Range: 14-76 28-Mnu-346580:16 Thyroid Stim Hormone (TSH) Comments: Comments: TSHTest performed at:[facility] Gj[address] [facility] [place] [address] TSH 1.53 {uIU/mL} (Normal) Range: 0.358-3.74 :11 Prothrombin Time w/INR Comments: Test performed at:[facility] [address] [place] [address] INR 1.8 (Normal) PROTIME 20.9 s (Abnormal) Range: 11.7-14.9 :27 Prothrombin Time w/INR Comments: Test performed at:[facility] Uiitiwguse9115 [facility] [place] [address] INR 2.2 (Normal) PROTIME 24.8 s (Abnormal) Range: 11.7-14.9 :08 Prothrombin Time w/INR Comments: Test performed at:[facility] Cuuhyxvvgp39[address] [facility] [place] [address] INR 4.8 (Abnormal) Comments: CRITICAL VALUE REPEATED AND VERIFIED. CALLED TO RADHA WOMACK10/01/14 0855 [address].RESULTS READ BACK BY DAVID. PROTIME 44.0 s (Abnormal) Range: 11.7-14.9 :14 Prothrombin Time w/INR Comments: Test performed at:[facility] [address] [place] [address] INR 2.6 (Normal) PROTIME 27.9 s (Abnormal) Range: 11.7-14.9 :16 Prothrombin Time w/INR Comments: Test performed at:[facility] [address] [place] [address] INR 5.0 (Abnormal) Comments: CRITICAL VALUE REPEATED AND VERIFIED. CALLED TO Tami DAIVSON09/21/14 0809 Elsie Longoria.RESULTS READ BACK BY CONNER . PROTIME 45.5 s (Abnormal) Range: 11.7-14.9 :10 Prothrombin Time w/INR Comments: Test performed at:[facility] [address] [place] [address] INR 3.2 (Normal) PROTIME 32.8 s (Abnormal) Range: 11.7-14.9 :24 Miscellaneous Lab Procedure Comments: Comments: [id number] HHV-6 IGM,SST,REFRIGERATETest(s) Ordered: [id number] HHV-6 IGM,SST,REFRIGERATETest performed at:[facility] [address] [facility] [place] [address] [facility] Comments: TEST RESULT UNITS REFERENCE INTERVALHuman Herpes Virus Type 6 IgM <1:10 Neg:<1:10Results for this test are for research purposes only by LAB (Normal) theassay's quality control auditor. The performance characteristics ofthis product have not been established. Results should notbe used as a diagnostic procedure without confirmation ofthe diagnosis by another med TEST ically established diagnosticproduct or procedure. TESTING PERFORMED AT [facility]. ORIGINAL REPORT ON FILE IN LAB CONTAINS ADDITIONAL TEST SITE IN FORMATION. :18 ANTINUCLEAR ANTIBODIES DIRECT Comments: Test performed at:[facility] [address] [place] [address] YURIY-DIRECT Negative (Normal) Comments: Performed at: [address] [id number] Director: Narendra Covarrubias PhD, Phone: [phone] :18 CMV Acute Antibody IgM Comments: Test performed at:[address] [place] [address] CMVIgM AB < 30.0 AU/mL (Normal) Range: 0.0-29.9 Comments: Negative <30.0 Equivocal 30.0 - 34.9 Positive >34.9A positive result is generally indicative of acuteinfection, react ivation or persistent IgM production.Performed at: [address] [id number] Director: Narendra Covarrubias PhD, Phone: [phone] at: [facility] [place] [address] [place], [place] [id number] Director: Juan Ontiveros MD, Phone: [phone] at: [address] [place] [address] HIX88[address] [place], [place] [id number] Director: Bill Tao PhD, Phone: [phone] :18 CMV Antibody IgG Comments: Test performed at:[address] [place] [address] CMV AB IgG > 10.00 U/mL (Abnormal) Range: 0.00-0.59 Comments: Negative <0.60 Equivocal 0.60 - 0.69 Positive >0.69 :18 EBV Acute Prof IgG / IgM Comments: Test performed at:[facility] Tex[address]vaqblp[address] [facility] [place] [address] INTERPRETATION Comment (Normal) Comments: EBV Interpretation ChartInterpretation EBV-IgM EA(D)-IgG VCA-IgG EBNA-IgGEBV Seronegative - - - -Early Phase + - - -Acute Primary + +or- + -InfectionConvalescence/Past - +or- + +InfectionReactivated +or- + + +Infection + Antibody Present - Antibody Absent EB-NAg [id number] 71.5 U/mL (Abnormal) Range: 0.0-17.9 Comments: Negative <18.0 Equivocal 18.0 - 21.9 Positive >21.9 EB-VCA [id number] > 600.0 U/mL (Abnormal) Range: 0.0-17.9 Comments: Negative <18.0 Equivocal 18.0 - 21.9 Positive >21.9 EB-EA IgG 75899 21.1 U/mL (Abnormal) Range: 0.0-8.9 Comments: Hepatitis A, Hepatitis C and HIV antibodies may cross-reactwith this assay. Negative < 9.0 Equivocal 9.0 - 10.9 Positive >10.9 EB-VCA [id number] < 36.0 U/mL (Normal) Range: 0.0-35.9 Comments: Negative <36.0 Equivocal 36.0 - 43.9 Positive >43.9 :18 Ferritin Comments: Test performed at:[facility] [address] [place] [address] FERRITIN 28 ng/mL (Normal) Range: 8-252 :18 HLA B27 Negative (Normal) Comments: Test performed at:[facility] Ywauwbvxev3706 [facility] [place] [address] Comments: HLA-B*27 NegativeA Lab CLIA ID Number [id number] test was performed using PCR (Polymerase ChainReaction)/SSOP (Sequence Specific Oligonucleotide Probes)technique. SBT (Sequence Based Typing) and/ or SSP(Sequence Specific Primers) may be used as supplementalmethods when necessary. Please contact HLA CustomerService at if you have any questions. Director of HLA Laboratory Dr Bill Tao, PhD :18 Homocysteine Comments: Test performed at:[facility] [address] [place] [address] HOMOCYSTEINE 6.7 umol/L (Normal) Range: 3.2-10.7 :18 IgG Subclasses Comments: Test performed at:[facility] [address] [place] [address] IgG, SUBCLASS 4 1 mg/dL (Normal) Range: 1-291 Comments: Results verified by repeat testing IgG, SUBCLASS 3 52 mg/dL (Normal) Range: 41-129 IgG, SUBCLASS 2 145 mg/dL (Normal) Range: 117-747 IgG, SUBCLASS 1 264 mg/dL (Abnormal) Range: 422-1292 IGG, QUANT 520 mg/dL (Abnormal) Range: 700-1600 :18 Miscellaneous Lab Procedure Comments: Comments: [id number] HLA-DR4,SST,REFRIGERATETest(s) Ordered: [id number] HLA-DR4,SST,REFRIGERATETest performed at:[facility] [address] [place] [address] MISC Comments: TEST RESULT UNITS REFERENCE INTERVALHLA DRB1 (IR) DRB1 DRB1*07:NIRAV DRB1 DRB1*- Code Translation: NIRAV 07:0107:09/07:10N/07:11/07:14/07:22 LAB (Normal) /07:24 /07:25/07:26N/07:27/07:2807:29HLA allele interpretation for all loci based on IMGT/HLAdatabase version 3.15A Lab CLIA ID Number [id number] TEST TESTING PERFORMED AT [facility]. ORIGINAL REPORT ON FILE IN LAB CONTAINS ADDITIONAL TEST SITE INFORMATION. HLA Methodology:HLA result s were obtained using sequence based typing (SBT),sequence specific oligonucleotide probes (SSOP), and/orsequence specific primers (SSP) as needed to obtain therequired resolution. Please contact [facility] [phone] if you have any questions.Director of HLA LaboratoryDr Bill Tao, PhD :18 Miscellaneous Lab Procedure Comments: Comments: [id number] HHV-6 IGG,SST,REFRIGERATETest(s) Ordered: [id number] HHV-6 IGG,SST,REFRIGERATEList Test(s) Ordered by Physician: IGA SUBCLASSES, #[id number], SERUM,RM TEMP, 2 MLTest performed at:[facility] [address] [place] [id number] [facility] Comments: TEST RESULT UNITS REFERENCE INTERVALHHV 6 IgG Antibodies 2.42 High index Negative <0.76 Equivocal 0.76 - 0.99 LAB (Normal) Positive >0.99Results for this test are for research purposesonly by the assay's quality control auditor. The performancecharacteristics of this product have not beenestablishe TEST d. Results should not be used as adiagnostic procedure without confirmation of thediagnosis by another medically established diagnosticproduct or procedure. [facility] ORIGINAL REPORT ON FILE IN LAB CONTAINS ADDITIONAL TEST SITE INFORMATION. :18 Miscellaneous Lab Procedure 2 Comments: Comments: [id number] HHV- 6 IGG,SST,REFRIGERATETest(s) Ordered: [id number] HHV-6 IGG,SST,REFRIGERATEList Test(s) Ordered by Physician: IGA SUBCLASSES, #[id number], SERUM,RM TEMP, 2 MLTest performed at:[facility] [address] [place] [address] [facility] Comments: TEST RESULT UNITS REFERENCE INTERVALIgA, Subclasses (1-2) Immunoglobulin A, Qn, Serum 161 mg/dL 91 - 414 IgA, Subclass 1 132.0 mg/dL LAB (Normal) 73.2 - 301.2 IgA, Subclass 2 6.2 Low mg/dL 13.4 - 97.9 TESTING PERFORMED AT [facility]. ORIGINAL REPORT ON FILE IN LAB CONTAINS MANFRED TEST TIONAL TEST SITE INFORMATION. 2 :18 Prothrombin Time w/INR Comments: Test performed at:[facility] [address] [place] [address] INR 1.9 (Normal) PROTIME 22.3 s (Abnormal) Range: 11.7-14.9 :18 Vitamin B12 664 pg/mL (Normal) Comments: Test performed at:[facility] [address] [place] [id number] Range: 211-911 :18 Vitamin D,25 Hydroxy Comments: Test performed at:[facility] [address] [place] [address] [place] [address] Vitamin D 25-OH 58.8 ng/mL (Normal) Comments: Vitamin D 25(OH) Status Range Deficiency <20 ng/mL (50nmol/L) Insuffciency 20 - 30 ng/mL (50 - 75 nmol/L) Sufficiency 30 - 100 ng/mL (75 - 250 nmol/L) Toxicity >100 ng/mL (>250 nmol/L) :13 CBC W/Diff, Automated Comments: Test performed at:[facility] Yjujccrxgg9903 [facility] [place] [address] Absolute Lymph 2.08 {X10_3/ul} (Normal) [...] :13 Comprehensive Metabolic Profil Comments: Test performed at:[facility] Iobuhceqmv9733 [facility] [place] [address] GAP 7 (Normal) Range: 5-15 [...] 70-110 :13 Lipid Profile Comments: Test performed at:[facility] [address]kb[address] [place], [place] [address](047) VLDL 9 mg/dL (Normal) Range: 5-40 LDL [...] :13 Prothrombin Time w/INR Comments: Test performed at:[facility] [address] [place] [address] INR 1.5 (Normal) PROTIME 18.4 s (Abnormal) Range: 11.7-14.9 :17 INR Fingerstick Comments: Test performed at:[facility] [address] [place] [address] INR ISTAT 1.50 (Normal) Comments: Critical Value > 3.5 :17 Prothrombin Time Fingerstick Comments: Test performed at:[facility] [address] [place] [address] PROTIME ISTAT 17.6 {SEC} (Abnormal) Range: 11.9-14.4 Comments: Reference Range 11.9 - 14.4 :09 INR Fingerstick Comments: Test performed at:[facility] [address] [place] [address] INR ISTAT 1.40 (Normal) Comments: Critical Value > 3.5 :09 Prothrombin Time Fingerstick Comments: Test performed at:[facility] [address] [place] [address](110 PROTIME ISTAT 17.1 {SEC} (Abnormal) Range: 11.9-14.4 Comments: Reference Range 11.9 - 14.4 :09 Prothrombin Time w/INR Comments: Test performed at:[facility] [address] [place] [address] INR 1.1 (Normal) PROTIME 14.6 s (Normal) Range: 11.7-14.9 :11 INR Fingerstick Comments: Test performed at:[facility] [address] [place] [address] INR ISTAT 1.20 (Normal) Comments: Critical Value > 3.5 :11 Prothrombin Time Fingerstick Comments: Test performed at:[facility] [address] [place] [address] PROTIME ISTAT 13.9 {SEC} (Normal) Range: 11.9-14.4 Comments: Reference Range 11.9 - 14.4 :06 INR Fingerstick Comments: Test performed at:[facility] [address] [place] [address] INR ISTAT 1.10 (Normal) Comments: Critical Value > 3.5 :06 Prothrombin Time Fingerstick Comments: Test performed at:[facility] [address] [place] [address] PROTIME ISTAT 13.6 {SEC} (Normal) Range: 11.9-14.4 Comments: Reference Range 11.9 - 14.4 :28 INR Fingerstick Comments: Test performed at:[facility] [address] [place] [address] INR ISTAT 2.20 (Normal) Comments: Critical Value > 3.5 :28 Prothrombin Time Fingerstick Comments: Test performed at:[facility] [address] [place] [address] PROTIME ISTAT 25.0 {SEC} (Abnormal) Range: 11.9-14.4 Comments: Reference Range 11.9 - 14.4 :19 INR Fingerstick Comments: Test performed at:[facility] [address] [place] [address] INR ISTAT 2.70 (Normal) Comments: Critical Value > 3.5 :19 Prothrombin Time Fingerstick Comments: Test performed at:[facility] [address] [place] [address] PROTIME ISTAT 30.6 {SEC} (Abnormal) Range: 11.9-14.4 Comments: Reference Range 11.9 - 14.4 :09 Prothrombin Time w/INR Comments: Test performed at:[facility] [address] [place] [address] INR 3.2 (Normal) PROTIME 32.6 s (Abnormal) Range: 11.7-14.9 :22 Prothrombin Time w/INR Comments: Test performed at:[facility] [address] [place] [address] INR 2.6 (Normal) PROTIME 27.8 s (Abnormal) Range: 11.7-14.9 :22 Prothrombin Time w/INR Comments: Test performed at:[facility] [address] [place] [address] INR 3.0 (Normal) PROTIME 30.9 s (Abnormal) Range: 11.7-14.9 :12 Prothrombin Time w/INR Comments: Test performed at:[facility] [address] [place] [address] INR 3.4 (Normal) PROTIME 33.7 s (Abnormal) Range: 11.7-14.9 :10 Prothrombin Time w/INR Comments: Test performed at:[facility] [address] [place] [address] INR 3.7 (Abnormal) PROTIME 36.4 s (Abnormal) Range: 11.7-14.9 82-Fjq-688393:20 Prothrombin Time w/INR Comments: Test performed at:[facility] [address] [place] [address] INR 3.0 (Normal) PROTIME 31.0 s (Abnormal) Range: 11.7-14.9 :10 Prothrombin Time w/INR Comments: Test performed at:[facility] [address] [place] [address] INR 3.0 (Normal) PROTIME 30.7 s (Abnormal) Range: 11.7-14.9 :04 Prothrombin Time w/INR Comments: Test performed at:[facility] [address] [place], [place] [address] INR 1.7 (Normal) PROTIME 19.7 s (Abnormal) Range: 11.7-14.9 :17 Prothrombin Time w/INR Comments: Test performed at:[facility] [address] [place], [place] [address] INR 1.8 (Normal) PROTIME 21.1 s (Abnormal) [...] Comments: Please note revised PROTIME reference range kvkqpheip58/14/15. 84-Eum-50017:05 PT INR 3.0 (Normal) PTP 30.6 s (Abnormal) Range: 11.7-14.9 Comments: Please note revised PROTIME reference range uegavqhgr71/14/15. 14-Jxi-53529:07 PT INR 5.6 (Abnormal) PTP 50.1 s (Abnormal) Range: 11.7-14.9 Comments: Please note revised PROTIME reference range wrfypksel80/14/15. :03 PT INR 2.5 (Normal) PTP 27.0 s (Abnormal) Range: 11.7-14.9 Comments: Please note revised PROTIME reference range rypxbigrm99. 22-Pyq-49937:03 PT INR 2.0 (Normal) PTP 23.0 s (Abnormal) Range: 11.7-14.9 Comments: Please note revised PROTIME reference range wbuawheuy21. 2-:06 PT INR 2.1 (Normal) PTP 21.9 [...] CHOL 287 mg/dL (Abnormal) Comments: <200 mg/dL Wbpywwvne095-131 mg/dL Borderline>240 mg/dL High Risk TRIG 78 [...] CRITICAL VALUE REPEATED AND VERIFIED. CALLED TO OIKOKLT66/14/14 075 Jeovanny Serrano.RESULTS READ BACK BY OLIVIER [...] CHOL 227 mg/dL (Abnormal) Comments: <200 mg/dL Ljtapxtvb260-308 mg/dL Borderline>240 mg/dL High Risk HDL 81 [...] CHOL 229 mg/dL (Abnormal) Comments: <200 mg/dL Flgznecae563-761 mg/dL Borderline>240 mg/dL High Risk :16 PT [...] Rodriguez M.D.September 21, 2012 at 11:00:07 AM [id number] Signed RU/RU If you are the referring physician and would like to consult with theradiologist who provided this interpretation, please contact Man [employer] at [phone]. If this radiologist is unavailable, youwillbe directed [...] on 09/21/12 1106 Sign by: Laith Rodriguez 2-Pak-556056:40 CUUR URC See Note (Normal) Comments: This is an amended result. A prior result that was reported as final has been changed.09/07/12 1448 by NSTANSLOSPreviously reported as: FINAL COLONY COUNT <1000 ORGANISM 1: MIXED GRAM POSITIVE ORGANISMS 2-Yzf-894921:40 LYMEWB rVZNIVUB39J Absent (Normal) tLYMWBINTM Negative (Normal) Comments: Note: [...] are those recommended byCDC/ASTPHLD. p23=Osp C , t99=lyhlfembw.Note:Sera from individuals with the following may cross reactin the Lyme Western Blot assays: other spirochetal diseases(periodontal disease, leptospirosis, relapsing fever, yaws,and pin ta); connective autoimmune (Rheumatoid Arthritis andSystemic Lupus Erythematosus and also individuals withAntinuclear Antibody); other infections (Angel MountainSpotted Fever; Desirae-Camargo Virus, and Cy tomegalovirus)..Performed at: [facility] [address] [id number] Director: Juan Ontiveros MD, Phone: [phone] aHZNGOYA62G Absent (Normal) wHIIIFWA77V Absent (Normal) uAFKGMBJ97Q Absent (Normal) xJGSKWQQ66O Absent (Normal) tLYMWBINTG Negative (Normal) Comments: Positive: 5 of the followingBorrelia- specific bands:18,23,28,30,39,41,45,58,66, and 93.Negative: No bands or bandingpatterns which do notmeet positive criteria. fYBFZPYI25P Absent (Normal) jXUJQSHB23H Absent (Normal) iNOZIBER16N Absent (Normal) aZILMWWD43W Present (Abnormal) qUMDCWMP07Q Absent (Normal) aAPZERSM27Z Absent (Normal) tPWBJQZA90O Absent (Normal) iRGQHCKY00R Absent (Normal) :03 PT INR 2.9 (Normal) PTP 28.1 s (Abnormal) Range: 11.9-14.4 86-Enw-809328:12 Microscopic Examination Comments: PATIENT NOT FASTINGPERFORMED BY: [facility] Cdrfbu1020 [facility] [id number] Bacteria Few (Normal) Mucus Threads Present (Normal) Epithelial Cells (non renal) 0-10 {/hpf} (Normal) Range: 0 - 10 RBC None seen {/hpf} (Normal) Range: 0 - 3 WBC None seen {/hpf} (Normal) Range: 0 - 5 :12 Lyme Disease Antibody W/ Comments: PATIENT NOT FASTINGPERFORMED BY: [facility] [facility] [id number] Reflex ([id number]) Lyme Ab Interp.,EIA Negative (Normal) Lyme IgG/IgM Ab <0.91 {index} (Normal) Range: 0.00-0.90 Comments: Negative <0.91 Equivocal 0.91 - 1.09 Positive >1.09 Note: The [facility] heaven mary advises that Western blot testing be performed following all equivocal or positive EIA results. Final diagnosis should include appropriate clinical findi ngs and a positive EIA which is also positive by Western blot. :12 SED RATE ERYTHROCYTE (45015) Comments: PATIENT NOT FASTINGPERFORMED BY: [employer]70 BoardEvalsFormerly [facility] [id number] Sedimentation Rate-Westergren 2 mm/h (Normal) Range: 0-40 :12 C-REACTIVE PROTEIN (41740) Comments: PATIENT NOT FASTINGPERFORMED BY: [employer]70 BoardEvalsFormerly [facility] [id number] C-Reactive Protein, Quant 0.7 mg/L (Normal) Range: 0.0-4.9 90-Euo-568170:12 URINALYSIS, W/ MICRO (84076) Comments: PATIENT NOT FASTINGPERFORMED BY: [employer]6370 BoardEvalsFormerly [facility] [id number] Microscopic Examination See below: (Normal) Nitrite, Urine Negative (Normal) Urobilinogen,Semi-Qn 0.2 mg/dL (Normal) Range: 0.0-1.9 Bilirubin Negative (Normal) Occult Blood Negative (Normal) Ketones 3+ (Abnormal) Glucose Negative (Normal) Protein 1+ (Abnormal) WBC Esterase Negative (Normal) Appearance Clear (Normal) Urine-Color Yellow (Normal) pH 6.0 (Normal) Range: 5.0-7.5 Specific Taft 1.025 (Normal) Range: 1.005-1.030 :12 TSH (14594) Comments: PATIENT NOT FASTINGPERFORMED BY: [employer] Iuwkpi4575 BoardEvalsFormerly [facility] [id number] TSH 2.400 {uIU/mL} (Normal) Range: 0.450-4.500 56-Xsl-410663:12 METABOLIC PANEL, COMPREHENSIVE Comments: PATIENT NOT FASTINGPERFORMED BY: [facility]wyws[facility] [id number] ([id number]) ALT (SGPT) 19 [iU]/L (Normal) Range: 0-32 [...] Glucose, Serum 91 mg/dL (Normal) Range: 65-99 87-Cvq-343130:12 CBC WITH MANUAL DIFF Comments: PATIENT NOT FASTINGPERFORMED BY: [facility] [facility] [id number] Information: [id number] ([id number]) Immature Grans (Abs) 0.0 {x10E3/uL} (Normal) Range: [...] D deficiency has been defined by the [place] and an Endocrine Society practice guideline as alevel of serum 25-OH vitamin D less than 20 ng/mL (1,2).The Endocrine Society went on to further define vitamin Dinsufficiency as a level between 21 and 29 ng/mL (2).1. IOM ([place] [employer]). 2010. Dietary reference intakes for calcium and D. [place]: The National Academies Press.2. Ana MF, Heriberto [place], Jayla BECKFORD, et al. Evaluation, treatment, and prevention of vitamin D deficiency: an Endocrine Society clinical practice guideline. JCEM. 2010; 96(7): 1911-30.Performed at: - [facility] [id number] Director: Narendra Covarrubias PhD, Phone: [phone] Plan of Care Name Dates Details Instructions [...] Indication: Osteoporosis Planned Observations PT (Prothrobim Time) ([id number])Indication: Anticoagulated on Coumadin On: 23-May-2018 Request PT (Prothrobim Time) ([id number])Indication: Anticoagulated on Coumadin On: 16-May-2018 Request PT (Prothrobim Time) ([id number])Indication: Anticoagulated on Coumadin On: 09-May-2018 Request PT (Prothrobim Time) ([id number])Indication: Anticoagulated on Coumadin On: 02-May-2018 Request PT (Prothrobim Time) ([id number])Indication: Anticoagulated on Coumadin On: 25-Apr-2018 Request PT (Prothrobim Time) ([id number])Indication: Anticoagulated on Coumadin On: 18-Apr-2018 Request PT (Prothrobim Time) ([id number])Indication: Anticoagulated on Coumadin On: 11-Apr-2018 Request PT (Prothrobim Time) ([id number])Indication: Anticoagulated on Coumadin On: 04-Apr-2018 Request PT (Prothrobim Time) ([id number])Indication: Anticoagulated on Coumadin On: 28-Mar-2018 Request PT (Prothrobim Time) ([id number])Indication: Anticoagulated on Coumadin On: 21-Mar-2018 Request PT (Prothrobim Time) ([id number])Indication: Anticoagulated on Coumadin On: 14-Mar-2018 Request PT (Prothrobim Time) ([id number])Indication: Anticoagulated on Coumadin On: 07-Mar-2018 Request PT (Prothrobim Time) ([id number])Indication: Anticoagulated on Coumadin On: 28-Feb-2018 Request PT (Prothrobim Time) ([id number])Indication: Anticoagulated on Coumadin On: 21-Feb-2018 Request PT (Prothrobim Time) ([id number])Indication: Anticoagulated on Coumadin On: 14-Feb-2018 Request PT (Prothrobim Time) ([id number])Indication: Anticoagulated on Coumadin On: 07-Feb-2018 Request PT (Prothrobim Time) ([id number])Indication: Anticoagulated on Coumadin On: 31-Jan-2018 Request PT (Prothrobim Time) ([id number])Indication: Anticoagulated on Coumadin On: 24-Jan-2018 Request PT (Prothrobim Time) ([id number])Indication: Anticoagulated on Coumadin On: 17-Jan-2018 Request PT (Prothrobim Time) ([id number])Indication: Anticoagulated on Coumadin On: 10-Jan-2018 Request PT (Prothrobim Time) ([id number])Indication: Anticoagulated on Coumadin On: 03-Jan-2018 Request PT (Prothrobim Time) ([id number])Indication: Anticoagulated on Coumadin On: 27-Dec-2017 Request PT (Prothrobim Time) ([id number])Indication: Anticoagulated on Coumadin On: 20-Dec-2017 Request BILIRUBIN, TOTAL ([id number])Indication: Encounter for screening for lipid disorder On: 41-Aoy-382265:28 Request BILIRUBIN, DIRECT ([id number])Indication: Encounter for screening for lipid disorder On: 88-Vsl-729121:28 Request CBC, PLATELETS & AUT DIFF ([id number])Indication: Encounter for screening for lipid disorder On: 97-Xyl-431454:47 Request Metabolic Panel, Comprehensive ([id number])Indication: Encounter for screening for lipid disorder On: 27-Cyt-59737:10 Request CBC & PLATELETS (AUTO) ([id number])Indication: Encounter for screening for lipid disorder On: 66-Iqm-64543:10 Request LIPID PANEL ([id number])Indication: Encounter for screening for lipid disorder On: 64-Jeu-20351:09 Request PT (Prothrobim Time) ([id number])Indication: Anticoagulated on Coumadin On: 13-Dec-2017 Request PT (Prothrobim Time) ([id number])Indication: Anticoagulated on Coumadin On: 06-Dec-2017 Request PT (Prothrobim Time) ([id number])Indication: Anticoagulated on Coumadin On: 29-Nov-2017 Request PT (Prothrobim Time) ([id number])Indication: Anticoagulated on Coumadin On: 22-Nov-2017 Request PT (Prothrobim Time) ([id number])Indication: Anticoagulated on Coumadin On: 15-Nov-2017 Request PT (Prothrobim Time) ([id number])Indication: Anticoagulated on Coumadin On: 08-Nov-2017 Request PT (Prothrobim Time) ([id number])Indication: Anticoagulated on Coumadin On: 01-Nov-2017 Request PT (Prothrobim Time) ([id number])Indication: Anticoagulated on Coumadin On: 25-Oct-2017 Request PT (Prothrobim Time) ([id number])Indication: Anticoagulated on Coumadin On: 18-Oct-2017 Request PT (Prothrobim Time) ([id number])Indication: Anticoagulated on Coumadin On: 11-Oct-2017 Request PT (Prothrobim Time) ([id number])Indication: Anticoagulated on Coumadin On: 04-Oct-2017 Request PT (Prothrobim Time) ([id number])Indication: Anticoagulated on Coumadin On: 27-Sep-2017 Request PT (Prothrobim Time) ([id number])Indication: Anticoagulated on Coumadin On: 20-Sep-2017 Request PT (Prothrobim Time) ([id number])Indication: Anticoagulated on Coumadin On: 13-Sep-2017 Request PT (Prothrobim Time) ([id number])Indication: Anticoagulated on Coumadin On: 06-Sep-2017 Request PT (Prothrobim Time) ([id number])Indication: Anticoagulated on Coumadin On: 30-Aug-2017 Request PT (Prothrobim Time) ([id number])Indication: Anticoagulated on Coumadin On: 23-Aug-2017 Request PT (Prothrobim Time) ([id number])Indication: Anticoagulated on Coumadin On: 16-Aug-2017 Request PT (Prothrobim Time) ([id number])Indication: Anticoagulated on Coumadin On: 09-Aug-2017 Request PT (Prothrobim Time) ([id number])Indication: Anticoagulated on Coumadin On: 02-Aug-2017 Request PT (Prothrobim Time) ([id number])Indication: Anticoagulated on Coumadin On: 26-Jul-2017 Request PT (Prothrobim Time) ([id number])Indication: Anticoagulated on Coumadin On: 19-Jul-2017 Request PT (Prothrobim Time) ([id number])Indication: Anticoagulated on Coumadin On: 12-Jul-2017 Request PT (Prothrobim Time) ([id number])Indication: Anticoagulated on Coumadin On: 05-Jul-2017 Request PT (Prothrobim Time) ([id number])Indication: Anticoagulated on Coumadin On: 28-Jun-2017 Request PT (Prothrobim Time) ([id number])Indication: Anticoagulated on Coumadin On: 21-Jun-2017 Request PT (Prothrobim Time) ([id number])Indication: Anticoagulated on Coumadin On: 14-Jun-2017 Request PT (Prothrobim Time) ([id number])Indication: Anticoagulated on Coumadin On: 07-Jun-2017 Request PT (Prothrobim Time) ([id number])Indication: Anticoagulated on Coumadin On: 31-May-2017 Request PT (Prothrobim Time) ([id number])Indication: Anticoagulated on Coumadin On: 25-May-2017 Request PT (Prothrobim Time) ([id number])Indication: Anticoagulated on Coumadin On: 25-May-2017 Request PT (Prothrobim Time) ([id number])Indication: Anticoagulated on Coumadin On: 24-May-2017 Request PT (Prothrobim Time) ([id number])Indication: Anticoagulated on Coumadin On: 17-May-2017 Request PT (Prothrobim Time) ([id number])Indication: Anticoagulated on Coumadin On: 10-May-2017 Request PT (Prothrobim Time) ([id number])Indication: Anticoagulated on Coumadin On: 03-May-2017 Request PT (Prothrobim Time) ([id number])Indication: Anticoagulated on Coumadin On: 26-Apr-2017 Request PT (Prothrobim Time) ([id number])Indication: Anticoagulated on Coumadin On: 25-Apr-2017 Request PT (Prothrobim Time) ([id number])Indication: Anticoagulated on Coumadin On: 25-Apr-2017 Request PT (Prothrobim Time) ([id number])Indication: Anticoagulated on Coumadin On: 19-Apr-2017 Request PT (Prothrobim Time) ([id number])Indication: Anticoagulated on Coumadin On: 12-Apr-2017 Request PT (Prothrobim Time) ([id number])Indication: Anticoagulated on Coumadin On: 05-Apr-2017 Request PT (Prothrobim Time) ([id number])Indication: Anticoagulated on Coumadin On: 29-Mar-2017 Request PT (Prothrobim Time) ([id number])Indication: Anticoagulated on Coumadin On: 26-Mar-2017 Request PT (Prothrobim Time) ([id number])Indication: Anticoagulated on Coumadin On: 26-Mar-2017 Request PT (Prothrobim Time) ([id number])Indication: Anticoagulated on Coumadin On: 22-Mar-2017 Request PT (Prothrobim Time) ([id number])Indication: Anticoagulated on Coumadin On: 15-Mar-2017 Request PT (Prothrobim Time) ([id number])Indication: Anticoagulated on Coumadin On: 08-Mar-2017 Request PT (Prothrobim Time) ([id number])Indication: correction (current) use of anticoagulants (Renamed from correction current use of anticoagulant therapy) On: 94-Tdf-482824:48 Request Comments: Standing order PT (Prothrobim Time) ([id number])Indication: Anticoagulated on Coumadin On: 01-Mar-2017 Request PT (Prothrobim Time) ([id number])Indication: Anticoagulated on Coumadin On: 24-Feb-2017 Request PT (Prothrobim Time) ([id number])Indication: Anticoagulated on Coumadin On: 24-Feb-2017 Request PT (Prothrobim Time) ([id number])Indication: Anticoagulated on Coumadin On: 22-Feb-2017 Request PT (Prothrobim Time) ([id number])Indication: Anticoagulated on Coumadin On: 15-Feb-2017 Request PT (Prothrobim Time) ([id number])Indication: Anticoagulated on Coumadin On: 08-Feb-2017 Request PT (Prothrobim Time) ([id number])Indication: Anticoagulated on Coumadin On: 01-Feb-2017 Request PT (Prothrobim Time) ([id number])Indication: Anticoagulated on Coumadin On: 25-Jan-2017 Request PT (Prothrobim Time) ([id number])Indication: Anticoagulated on Coumadin On: 25-Jan-2017 Request PT (Prothrobim Time) ([id number])Indication: Anticoagulated on Coumadin On: 25-Jan-2017 Request PT (Prothrobim Time) ([id number])Indication: Anticoagulated on Coumadin On: 18-Jan-2017 Request PT (Prothrobim Time) ([id number])Indication: Anticoagulated on Coumadin On: 11-Jan-2017 Request PT (Prothrobim Time) ([id number])Indication: Anticoagulated on Coumadin On: 04-Jan-2017 Request PT (Prothrobim Time) ([id number])Indication: Anticoagulated on Coumadin On: 28-Dec-2016 Request PT (Prothrobim Time) ([id number])Indication: Anticoagulated on Coumadin On: 26-Dec-2016 Request PT (Prothrobim Time) ([id number])Indication: Anticoagulated on Coumadin On: 26-Dec-2016 Request PT (Prothrobim Time) ([id number])Indication: Anticoagulated on Coumadin On: 21-Dec-2016 Request PT (Prothrobim Time) ([id number])Indication: Anticoagulated on Coumadin On: 14-Dec-2016 Request PT (Prothrobim Time) ([id number])Indication: Anticoagulated on Coumadin On: 07-Dec-2016 Request PT (Prothrobim Time) ([id number])Indication: Anticoagulated on Coumadin On: 30-Nov-2016 Request PT (Prothrobim Time) ([id number])Indication: Anticoagulated on Coumadin On: 26-Nov-2016 Request PT (Prothrobim Time) ([id number])Indication: Anticoagulated on Coumadin On: 26-Nov-2016 Request PT (Prothrobim Time) ([id number])Indication: Anticoagulated on Coumadin On: 23-Nov-2016 Request PT (Prothrobim Time) ([id number])Indication: Anticoagulated on Coumadin On: 16-Nov-2016 Request PT (Prothrobim Time) ([id number])Indication: Anticoagulated on Coumadin On: 09-Nov-2016 Request PT (Prothrobim Time) ([id number])Indication: Anticoagulated on Coumadin On: 02-Nov-2016 Request PT (Prothrobim Time) ([id number])Indication: Anticoagulated on Coumadin On: 27-Oct-2016 Request PT (Prothrobim Time) ([id number])Indication: Anticoagulated on Coumadin On: 27-Oct-2016 Request PT (Prothrobim Time) ([id number])Indication: Anticoagulated on Coumadin On: 26-Oct-2016 Request PT (Prothrobim Time) ([id number])Indication: Anticoagulated on Coumadin On: 19-Oct-2016 Request PT (Prothrobim Time) ([id number])Indication: Anticoagulated on Coumadin On: 12-Oct-2016 Request PT (Prothrobim Time) ([id number])Indication: Anticoagulated on Coumadin On: 05-Oct-2016 Request PT (Prothrobim Time) ([id number])Indication: Anticoagulated on Coumadin On: 28-Sep-2016 Request PT (Prothrobim Time) ([id number])Indication: Anticoagulated on Coumadin On: 27-Sep-2016 Request PT (Prothrobim Time) ([id number])Indication: Anticoagulated on Coumadin On: 27-Sep-2016 Request PT (Prothrobim Time) ([id number])Indication: Anticoagulated on Coumadin On: 21-Sep-2016 Request PT (Prothrobim Time) ([id number])Indication: Anticoagulated on Coumadin On: 14-Sep-2016 Request PT (Prothrobim Time) ([id number])Indication: Anticoagulated on Coumadin On: 07-Sep-2016 Request PT (Prothrobim Time) ([id number])Indication: Anticoagulated on Coumadin On: 31-Aug-2016 Request PT (Prothrobim Time) ([id number])Indication: Anticoagulated on Coumadin On: 28-Aug-2016 Request PT (Prothrobim Time) ([id number])Indication: Anticoagulated on Coumadin On: 28-Aug-2016 Request PT (Prothrobim Time) ([id number])Indication: Anticoagulated on Coumadin On: 24-Aug-2016 Request PT (Prothrobim Time) ([id number])Indication: Anticoagulated on Coumadin On: 17-Aug-2016 Request PT (Prothrobim Time) ([id number])Indication: Anticoagulated on Coumadin On: 10-Aug-2016 Request PT (Prothrobim Time) ([id number])Indication: Anticoagulated on Coumadin On: 03-Aug-2016 Request PT (Prothrobim Time) ([id number])Indication: Anticoagulated on Coumadin On: 29-Jul-2016 Request PT (Prothrobim Time) ([id number])Indication: Anticoagulated on Coumadin On: 29-Jul-2016 Request PT (Prothrobim Time) ([id number])Indication: Anticoagulated on Coumadin On: 27-Jul-2016 Request PT (Prothrobim Time) ([id number])Indication: Anticoagulated on Coumadin On: 20-Jul-2016 Request PT (Prothrobim Time) ([id number])Indication: Anticoagulated on Coumadin On: 13-Jul-2016 Request PT (Prothrobim Time) ([id number])Indication: Anticoagulated on Coumadin On: 06-Jul-2016 Request Metabolic Panel, Comprehensive ([id number])Indication: Irritable Bowel Syndrome On: 73-Wwx-217562:28 Request TSH ([id number])Indication: Irritable Bowel Syndrome On: 12-Syv-805193:28 Request CBC, Platelets & Auto Diff ([id number])Indication: Irritable Bowel Syndrome On: 64-Hki-404804:28 Request PT (Prothrobim Time) ([id number])Indication: Anticoagulated on Coumadin On: 27-Kiw-605938:24 Request PT (Prothrobim Time) ([id number])Indication: DVT (deep venous thrombosis) On: 22-Hew-076197:11 Request Comments: INR - STANDING ORDER Vitamin D Hydroxy ([id number])Indication: Osteoporosis On: 18-Cpq-202171:16 Request TSH ([id number])Indication: Osteoporosis On: 86-Ohx-390575:16 Request CBC with auto diff ([id number])Indication: Benign Essential Hypertension On: 41-Rjt-936943:16 Request METABOLIC PANEL, COMPREHENSIVE ([id number])Indication: Benign Essential Hypertension On: 62-Qjz-783741:16 Request LIPID PANEL ([id number])Indication: Hyperlipidemia On: 94-Mhx-700489:16 Request CBC W/AUTO DIFF WBC ([id number])Indication: Benign Essential Hypertension On: 5-Xgj-515032:34 Request METABOLIC PANEL, COMPREHENSIVE ([id number])Indication: Benign Essential Hypertension On: 6-Nxb-013321:34 Request TSH ([id number])Indication: Osteoporosis On: :39 Request CBC W/AUTO DIFF WBC ([id number])Indication: Osteoporosis On: :39 Request LIPID PANEL ([id number])Indication: Hyperlipidemia On: :38 Request METABOLIC PANEL, COMPREHENSIVE ([id number])Indication: Benign Essential Hypertension On: :38 Request PT (Prothrobim Time) ([id number])Indication: DVT (deep venous thrombosis) On: 4-Bcv-003300:18 Request Comments: FINGER STICKSTANDING ORDER PT (Prothrobim Time) ([id number])Indication: DVT (deep venous thrombosis) On: 47-Ave-389252:28 Request Comments: Standing Order URINALYSIS, W/ MICRO ([id number])Indication: Benign Essential Hypertension On: :37 Request METABOLIC PANEL, COMPREHENSIVE ([id number])Indication: Benign Essential Hypertension On: :37 Request LIPID PANEL ([id number])Indication: Hyperlipidemia On: :37 Request CBC W/AUTO DIFF WBC ([id number])Indication: DVT (deep venous thrombosis) On: :37 Request PT (Prothrobim Time) ([id number])Indication: DVT (deep venous thrombosis) On: 05-Kds-080413:02 Request CBC WITH MANUAL DIFF ([id number])Indication: Benign Essential Hypertension On: :39 Request METABOLIC PANEL, COMPREHENSIVE ([id number])Indication: Hyperlipidemia On: :39 Request LIPID PANEL ([id number])Indication: Hyperlipidemia On: :39 Request PT (Prothrobim Time) ([id number])Indication: DVT (deep venous thrombosis) On: :07 Request Comments: pls call instructional technology facilitator Dr Hunter with results on 05/20/13 PT (Prothrobim Time) ([id number])Indication: DVT (deep venous thrombosis) On: 43-Zhr-321793:00 Request Comments: Standing Order PT (Prothrobim Time) ([id number])Indication: DVT (deep venous thrombosis) On: :59 Request Comments: INR - STANDING ORDER x 1 year URINALYSIS, W/ MICRO ([id number])Indication: Benign Essential Hypertension On: :15 Request CBC WITH MANUAL DIFF ([id number])Indication: Benign Essential Hypertension On: :15 Request METABOLIC PANEL, COMPREHENSIVE ([id number])Indication: Benign Essential Hypertension On: 07-Feb-20139:14 Request LIPID PANEL ([id number])Indication: Hyperlipidemia On: :14 Request METABOLIC PANEL, COMPREHENSIVE ([id number])Indication: Benign Essential Hypertension On: :06 Request LIPID PANEL ([id number])Indication: Hyperlipidemia On: :06 Request URINE HANNAH CULTURE-IDENTIFICATN ([id number])Indication: Urinary frequency On: :56 Request URINE HANNAH CULTURE-IDENTIFICATN ([id number])Indication: Insect bite On: 80-Emh-032598:19 Request Lyme Disease,Serum, Western Blot ([id number])Indication: Insect bite On: 28-Yqz-649214:19 Request PT (Prothrobim Time) ([id number])Indication: DVT (deep venous thrombosis) On: 27-Bod-715059:59 Request Comments: standing order LIPID PANEL ([id number])Indication: FAMILY HISTORY OF ISCHEMIC HEART DISEASE On: 01-Onq-357080:28 Request LIPID PANEL ([id number])Indication: FAMILY HISTORY OF ISCHEMIC HEART DISEASE On: 1-Vyl-208418:51 Request Vitamin D Hydroxy ([id number])Indication: Osteoporosis On: 7-Hhg-088783:18 Request TSH ([id number])Indication: Osteoporosis On: 8-Gnp-770737:18 Request URINALYSIS, W/ MICRO ([id number])Indication: Osteoporosis On: 7-Ott-584821:18 Request CBC WITH MANUAL DIFF ([id number])Indication: Osteoporosis On: 1-Ffm-135565:18 Request METABOLIC PANEL, COMPREHENSIVE ([id number])Indication: Osteoporosis On: 3-Jvj-857416:18 Request PTT (Activated Partial Thromboplastin Time) ([id number])Indication: DVT (deep venous thrombosis) On: 3-Bqm-308309:16 Request PT (Prothrobim Time) ([id number])Indication: DVT (deep venous thrombosis) On: 9-Zhc-667838:16 Request Planned Encounters Medical; Review Results - On: 07-Feb-2018 13:00 [facility] Selam Blair CNP E Selam Blair CNP Planned Procedures DEXA SCAN AXIAL SKELETON ([id number])By: On: 17-Dec-2017 Intent Selam Blair CNP, CNP, Mary E Aerosol Treatment ([id number])By: Johnnie On: 02-Jun-2017 Intent Selam DAVIES CNP, Mary E Ultrasound - LiverBy: Minalcuca Selam DAVIES On: 15-Dec-2016 Intent E Selam Blair CNP Aerosol Treatment ([id number])By: Johnnie On: 13-Oct-2016 Intent Selam DAVIES CNP, Mary E Aerosol Treatment ([id number])By: Aleksey On: 19-Feb-2015 Intent Eliana HOFFMANN Ultrasound - AortaBy: Helen Barnes DO On: 18-Dec-2014 Intent EKG ([id number])By: Helen Barnes DO On: 05-Nov-2014 Intent Comments: ekg showed normal sinus rhythym, normal axis, no acute st/t wave changes BILATERAL MAMMOGRAMS ([id number])By: Timothy On: 17-Sep-2014 Intent Helen [place] Radiology - Shoulder - LeftBy: Bonezzi On: 05-Mar-2014 Intent Fatimah RANDLE Comments: if not better with PT MAMMOGRAM, SCREENING, BOTH BREASTS On: 08-Aug-2013 Intent ([id number])By: Helen Barnes DO Eprescribed prescriptions ([id number])By: On: 08-Aug-2013 Intent Helen Barnes DO DXA, BONE DENSITY, AXIAL SKELETON On: 21-Oct-2012 Intent ([id number])By: Helen Barnes DO Comments: dexa- dec Eprescribed prescriptions ([id number])By: On: 21-Oct-2012 Intent So Bailey Breast Screening - BilateralBy: Timothy On: 19-Sep-2012 Intent Helen [place] Eprescribed prescriptions ([id number])By: On: 30-Aug-2012 Intent So Bailey Spirometry ([id number])By: Helen Barnes DO On: 11-Mar-2012 Intent A Comments: good effort and curve mild obst- Doppler Ultrasound OtherBy: Timothy [place], On: 11-Mar-2012 Intent Helen A Comments: both legs- stat call results Eprescribed prescriptions ([id number])By: On: 11-Mar-2012 Intent So Bailey TD Injection , IM ([id number])By: Leo, On: 11-Mar-2012 Intent So Comments: 2003 FLU VAC, SPLIT, >3 YEARS, INTRAMUSC On: 11-Mar-2012 Intent ([id number])By: So Bailey Comments: got at [facility] Instructions Name Dates Details Nonsmoker : [...] Coumadin : DISCONTINUED - PT (PROTHROMBIN TIME) ([id number]) Indication: Anticoagulated on Coumadin Irritable Bowel Syndrome [...] patient does not have durable power of traffic law attorney. The patient has noticed nothing from the geriatic depression scale. Other providers contributing to the patient's care are change room attendant (dr. meseret santana) and other: (eye- dr. [...] patient does not have durable power of traffic law attorney or living will . The patient has noticed nothing from the geriatic depression scale. Other providers contributing to the patient's care are other: (dr crawford for eyes). 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 The p atient has noticed nothing from the geriatic depression scale. Other providers contributing to the patient's care are other: (ENT and dr crawford for eyes). Note for Annual Medicare Exam: Pt has WWE done by her MANAGER COSTING., [ADDITIONAL REASON] Follow up for chronic medical [...] cyst is gone- - still fluid in [place] and calcification- going to have D?C- [...] diet and still seeing lyme specialist in [place]- her weight comeing down and exercsing more [...] with Lyme dz symptoms- pt went to [place] and had lyme dz treatment-), has End: [...] chronic medical issues: seeing lyme specialist in [place] and on meds for this and [place]- [...]
--- OUTSIDE RECORDS SUMMARY | 2018-06-24 14:31 | XMS RPT_ITS | Continuity of Care Document ---
:1950 Author Organization [facility] Address [facility] [address] [place] [address] Phone Care Team Providers Name Role Phone [...] in [address] Status: Active assisted (current) use of anticoagulants (Renamed from assisted current use of anticoagulant therapy) (Z79.01, V58.61) [...] Brenda Start : 13-Sep-2017 Active Calcium 1200 0526-9388 MG-UNIT Oral Tablet Chewable daily (2181-2619 MG-UNIT) Active Cinnamon 500 MG Oral Capsule [...] Quantity: 30 {Tablet} Refills: 1 Ordered:17-Dec-2017 Johnnie FACILITY ATTENDANT, Selam Taveras FACILITY ATTENDANT, Brenda Start : 17-Dec-2017 Active Latanoprost 0.005 [...] Quantity: 1 {Inhaler} Refills: 0 Ordered:02-Jun-2017 Long [employer], Aida L Start : 02-Jun-2017 Active PROBIOTIC (Oral Capsule) 2 (two) Capsule qd for 0 days Quantity: 60 {Capsule} Refills: 0 Ordered:21-Oct-2012 Fatimah Mccray MD Start : 14-Oct-2012 Active Tessalon Perles 100 MG Oral Capsule 1 (one) Capsule tid prn for cough for 0 days Quantity: 30 {Capsule} Refills: 1 Ordered:02-Jun-2017 Johnnie FACILITY ATTENDANT, Selam Taveras [facility], Selam Latif Start : 02-Jun-2017 Active VITAMIN [...] 500MG (Oral Tablet) 1 (one) Tablet bid a52uank for 10 days Quantity: 20 {Tablet} Refills: [...] (M85.80, 733.90) Status: Inactive as of 11-Mar-2012 [place] (H10.029, 372.03) Status: Inactive as of [...] Status: Resolved as of 21-Oct-2012 Vaccine for oqzegabyxe-vnguyvo-aeacvtyua with poliomyelitis (Z23, V06.3) Status: Inactive as of 21-Oct-2012 Procedures Procedure Dates Details Appendectomy Completed D&C Completed Comments: Tonsillectomy Completed Tubal Ligation Completed Date Value Details 23-Dec-2017 Dexa Bone Density Study Result: Comments: See Note; NOTES: [facility] Imaging Services [address] [place] [address] Dexa Bone Density Study MR#: [id number] Acct: [id number] Name: YAHAIRA BRYANT Addi Rep #: [id number] : 1950 F 67 From: Cole Coronado MD PCP: Selam Blair NP Status: REG CLI Study: Dexa Bone Density Study Date of Exam: 12/23/17 Exam# [id number] Ordering Dr: Selam Blair STUDY: DUAL ENERGY [...] Cole Coronado MD at 8:50 EDT Tel [phone], Service support , CC: Selam Blair NP Learning Support Teacher: Signed 07-Oct-2017 SCREENING MAMM (CAD), BILAT Result: Comments: See Note; NOTES: [facility] Imaging Services [address] [place] [address] SCREENING MAMM (CAD), BILAT MR#: [id number] Acct: [id number] Name: YAHAIRA BRYANT Rep #: [id number] : 1950 F 67 From: Cole Coronado MD PCP: Selam Blair NP Status: REG CLI Study: SCREENING MAMM (CAD), BILAT Date of Exam: 10/07/17 Exam# [id number] Ordering Dr: Aliza Santana MD MAMMOGRAPHY - [...] delay biopsy of a clinically suspicious abnormality. FY3023 Electronically Signed: Cole Coronado MD at 11:23 EDT Tel [phone], Service support , CC: Selam Blair NP; Aliza Santana MD Learning Support Teacher: Signed 23-Sep-2017 Downtime Report Result: Comments: See Note; NOTES: [facility] Medical Records Department [address] [place] [address] Downtime Report MR#: [id number] Acct: [id number] Name: YAHAIRA BRYANT Rep #: [id number] : 1950 67 From: Jered Kumar PCP: Selam Blair NP Status: REG CLI This patient was seen during an EMR downtime September 06, 2017 - September 13, 2017. This patient may have a combination of p aper and electronic documentation or all paper documentation. All documentation is viewable within the e-chart portion of [employer] for each patient visit. 16-Dec-2016 Liver Result: Comments: See Note; NOTES: [facility] Imaging Services [address] [place] [address] Liver MR#: [id number] Acct: [id number] Name: YAHAIRA BRYANT Rep #: [id number] : 1950 F 66 From: Jose Mcghee MD PCP: Selam Blair Status: REG CLI Study: Liver Date of Exam: 12/16/16 Exam# [id number] Ordering Dr: Selam Blair STUDY: ABDOMINAL ULTRASOUND [...] MD at 16:28 EDT , Service support [phone], CC: Selam Blair Learning Support Teacher: Signed 21-Dec-2014 Aorta Result: Comments: See Note; NOTES: [facility] Imaging Services [address] [place] [address] Ultrasound Report MR#: [id number] Acct: [id number] Name: YAHAIRA BRYANT Rep #: : 1950 F 64 From: Cole Coronado MD PCP: Helen Barnes DO Status: REG CLI Study: Aorta Date of Exam: 12/21/14 Exam# [id number] Ordering Dr: Helen Barnes DO PROCEDURES: ULTRASOUN [...] Cole Coronado MD at 9:45 EDT Tel [phone], Service support [phone], CC: Helen Barnes DO Learning Support Teacher: Signed 12-Dec-2014 Bilat Scrn Digital AND CAD Result: Comments: See Note; NOTES: [facility] Imaging Services [address] [place] [address] Breast Imaging Report MR#: [id number] Acct: [id number] Name: YAHAIRA BRYANT Rep # : [id number] : 1950 F 64 From: Gabino South MD PCP: Helen Barnes DO Status: REG CLI Study: Bilat Scrn Digital AND CAD Date of Exam: 12/12/14 Exam# [id number] Ordering Dr: Helen Barnes DO M AMMOGRAPHY [...] at 14:51 EDT Tel , Service support [phone], CC: Helen Barnes DO Learning Support Teacher: Signed 12-Dec-2014 Bilat Scrn Digital AND CAD Result: Comments: See Note; NOTES: [facility] Imaging Services [address] [place] [address] Breast Imaging Report MR#: [id number] Acct: [id number] Name: YAHAIRA BRYANT Rep # : [id number] : 1950 F 64 From: Gabino South MD PCP: Helen Barnes DO Status: REG CLI Study: Bilat Scrn Digital AND CAD Date of Exam: 12/12/14 Exam# [id number] Ordering Dr: Helen Barnes DO A DDENDUM by Cole Coronado MD on 12/17/14 at 1003 ADDENDUM This is an addendum report for BI -RADS category. BI-RADS category 2. Electronically Signed: Cole Coronado MD at 10:03 EDT Tel [phone], Service support [phone], 12/17/14 1003 D ate cc: Helen Barnes [...] at 14:51 EDT Tel , Service support [phone], CC: Helen Barnes DO Learning Support Teacher: Signed 03-Dec-2014 Operative Report Result: Comments: See Note; NOTES: [facility] Medical Records Department [address] [place] [address] Operative Report MR#: [id number] Acct: [id number] Name: YAHAIRA BRYANT Rep #: [id number] : 1950 64 From: Aliza Santana MD PCP: Helen Barnes DO Status: [facility] DATE OF SERVICE: 11/26/2014 DATE OF SERVICE: [...] time. Aliza Santana MD T: NTS JOB: [id number] 12/03/14 1321 <Electronically signed by An jamison Santana MD> Date Aliza Santana MD Cosigner Signature (If Indicated): Date CC: Aleyda Santana MD; Helen Barnes DO Date Dictated: 11/29/14918 Date Transcribed: 11/29/14918 Learning Support Teacher: Signed 26-Nov-2014 Discharge Instruction Result: Comments: See Note; NOTES: [facility] Medical Records Department [address] [place] [address] Instructions for Home/Discharge Instructions 11/26/14 1200 MR#: [id number] ct: [id number] Name: YAHAIRA BRYANT Rep #: [id number] : 1950 64 From: Aliza Santana MD PCP: Helen Barnes DO Status: REG [facility] Discharge Diet: No Restrictions Discharge Activity: Return [...] Operative Report Result: Comments: See Note; NOTES: [facility] Medical Records Department [address] [place] [address] Operative Report 11/26/14 1159 MR#: [id number] Acct: [id number] Name: SERGEIRina CERVANTESYAHAIRA R Rep #: [id number] : 1950 64 From: Aliza Santana MD PCP: Helen Barnes DO Status: REG SDC Y Location: [place] [address] Operative Report (Blank) Date of Procedure: 11/26/14 [...] MD; Helen Barnes DO Signed 05-Nov-2014 Spirometry (80865) Comments: good effort aand curve mild obstruction Result: 06-Jun-2014 Transvaginal Non- Result: Comments: See Note; NOTES: [facility] Imaging Services [address] [place] [address] Ultrasound Report MR#: [id number] Acct: [id number] Name: YAHAIRA BRYANT R Rep #: [id number] : 1950 F 63 From: Telly Cruz DO PCP: Helen Barnes DO Status: REG CLI Study: Transvaginal Non- Date of Exam: 06/06/14 Exam# [id number] Ordering Dr: Izzy Becerra STUDY: ULTRASOUND TRANSVAGINAL [...] DO at 13:34 EST , Service support [phone], CC: Helen Barnes DO; Izzy Becerra MD Learning Support Teacher: Signed 06-Jun-2014 Pelvic (Non ) Result: Comments: See Note; NOTES: [facility] Imaging Services [address] [place] [address] Ultrasound Report MR#: [id number] Acct: [id number] Name: YAHAIRA BRYANT Rep #: [id number] : 1950 F 63 From: Telly Cruz DO PCP: Helen Barnes DO Status: REG CLI Study: Pelvic (Non ) Date of Exam: 06/06/14 Exam# [id number] Ordering Dr: Izzy Becerra MD STUDY: ULTRASOUND [...] DO at 13:34 EST , Service support [phone], CC: Helen Barnes DO; Izzy Becerra MD Learning Support Teacher: Signed 11-Oct-2013 Bilat Scrn Digital & CAD Result: Comments: See Note; NOTES: [facility] Imaging Services [address] [place] [address] Breast Imaging Report MR#: [id number] Acct: [id number] Name: YAHAIRA BRYANT Rep #: [id number] : 1950 F 63 From: Bradly Lr MD PCP: Helen Barnes DO Status: REG CLI Exam# [id number] Ordering Dr: Helen Barnes DO MAMMOGRAPHY - [...] Bradly Lr MD at 10:37 EDT , [employer] e support [phone], CC: Helen Barnes DO Learning Support Teacher: Signed Family History Unknown Family Member Name [...] smoker Vital Signs Date Test Result Details 83-Fqs-53298:25 Temperature 97.4 f Comments: Method: Temporal Pulse [...] wnl, vision screening done yearly with Dr. Crawfodr;glaucoma screening included. Temperature 97 f Pulse 67 [...] Value Details :18 Prothrombin Time w/INR Comments: [facility] [address] [place], [place], [id number] INR 2.7 (Normal) PROTIME 28.9 s (Abnormal) Range: 11.7-14.9 :58 Bilirubin, Direct Comments: [facility] [address] [place], [address] D BILI 0.18 mg/dL (Normal) Range: 0.00-0.30 :58 CBC W/Diff, Automated Comments: [facility] [address] [place], [address] Absolute Lymph 1.49 {X10_3/ul} (Normal) [...] (Abnormal) Range: 4.4-11.0 :58 Total Bilirubin Comments: [facility] [address] [place], [place], [address] T BILI 0.80 mg/dL (Normal) Range: 0.20-1.00 9-Zuo-134045:14 Prothrombin Time w/INR Comments: [facility] [address] [place], [place], [address] INR 2.6 (Normal) PROTIME 27.6 s (Abnormal) Range: 11.7-14.9 38-Esj-747520:01 CBC W/Diff, Automated Comments: [facility] [address] [place], [place], [address] Absolute Lymph 1.26 {X10_3/ul} (Normal) Range: 0.83-4.51 [...] 4.2-5.4 WBC 3.3 K/mm3 (Abnormal) Range: 4.4-11.0 23-Hbj-332973:01 Comprehensive Metabolic Profil Comments: [facility] [address] [place], [place], [address] GAP 9 (Normal) Range: 5-15 CO2 28.0 [...] Comments: Please note revised GLUCOSE reference range jqkmdcmyo22/02/2018. 93-Lko-399641:15 Prothrombin Time w/INR Comments: [facility] [address] [place], [address] INR 3.0 (Normal) PROTIME 31.3 s (Abnormal) Range: 11.7-14.9 :26 Prothrombin Time w/INR Comments: [facility] [address] [place], [address] INR 2.8 (Normal) PROTIME 29.3 s (Abnormal) Range: 11.7-14.9 21-Vdk-792988:50 Prothrombin Time w/INR Comments: [facility] [address] [place], [address] INR 2.7 (Normal) PROTIME 28.7 s (Abnormal) Range: 11.7-14.9 :35 Prothrombin Time w/INR Comments: [facility] [address] [place], [address] INR 2.9 (Normal) PROTIME 30.2 s (Abnormal) Range: 11.7-14.9 :44 Prothrombin Time w/INR Comments: [facility] [address] [place], [address] INR 2.9 (Normal) PROTIME 30.1 s (Abnormal) Range: 11.7-14.9 :55 Prothrombin Time w/INR Comments: [facility] [address] [place], [address] INR 2.8 (Normal) PROTIME 29.4 s (Abnormal) Range: 11.7-14.9 :10 Prothrombin Time w/INR Comments: [facility] [address] [place], [address] INR 2.4 (Normal) PROTIME 26.2 s (Abnormal) Range: 11.7-14.9 :09 Prothrombin Time w/INR Comments: [facility] [address] [place], [address] INR 1.1 (Normal) PROTIME 14.0 s (Normal) Range: 11.7-14.9 :29 Prothrombin Time w/INR Comments: RESULT(S) PREVIOUSLY REPORTED ON MANUAL REQUISITION DURINGDOWNTIME.[facility] [address] [place], [address] INR 1.3 (Normal) PROTIME 16.4 s (Abnormal) Range: 11.7-14.9 :30 Prothrombin Time w/INR Comments: [facility] [address] [place], [address] INR 2.0 (Normal) PROTIME 22.9 s (Abnormal) Range: 11.7-14.9 :01 Prothrombin Time w/INR Comments: [facility] [address] [place], [address] INR 1.5 (Normal) PROTIME 18.0 s (Abnormal) Range: 11.7-14.9 :46 Prothrombin Time w/INR Comments: [facility] [address] [place], [address] INR 1.9 (Normal) PROTIME 22.2 s (Abnormal) Range: 11.7-14.9 59-Foh-904866:25 Prothrombin Time w/INR Comments: [facility] [address] [place], [address] INR 1.9 (Normal) PROTIME 22.0 s (Abnormal) Range: 11.7-14.9 :59 Prothrombin Time w/INR Comments: [facility] [address] [place], [address] INR 2.0 (Normal) PROTIME 22.8 s (Abnormal) Range: 11.7-14.9 :58 Prothrombin Time w/INR Comments: [facility] [address] [place], [address] INR 1.8 (Normal) PROTIME 20.7 s (Abnormal) Range: 11.7-14.9 55-Aqg-063710:31 Prothrombin Time w/INR Comments: [facility] [address] [place], [address] INR 1.7 (Normal) PROTIME 19.9 s (Abnormal) Range: 11.7-14.9 29-Abg-149970:20 Prothrombin Time w/INR Comments: [facility] [address] [place], [address] INR 2.6 (Normal) PROTIME 27.9 s (Abnormal) Range: 11.7-14.9 :39 Prothrombin Time w/INR Comments: [facility] [address] [place], [place], [phone] INR 2.9 (Normal) PROTIME 30.5 s (Abnormal) Range: 11.7-14.9 11-Mkl-628993:03 Rapid Flu (39754 x 2) Influenza A Ag neg (Normal) 50-Xae-462694:00 Prothrombin Time w/INR Comments: [facility] [address] [place], [place], [address] ; See pt message INR 3.7 (Abnormal) Comments: CRITICAL VALUE VERIFIED. CALLED TO KOLTON 05/31/17 1130 Nii Lind.RESULTS READ BACK BY SAME. PROTIME 35.0 s (Abnormal) Range: 11.7-14.9 :21 Prothrombin Time w/INR Comments: [facility] [address] [place], [address] INR 4.7 (Abnormal) Comments: CRITICAL VALUE VERIFIED. CALLED TO GEOVANNI AT [facility]05/24/17 0956 Violeta Noble.RESULTS READ BACK BY SAME . PROTIME 42.4 s (Abnormal) Range: 11.7-14.9 55-Bhe-813630:27 Prothrombin Time w/INR Comments: [facility] [address] [place], [address] INR 1.9 (Normal) PROTIME 20.9 s (Abnormal) Range: 11.7-14.9 :42 Prothrombin Time w/INR Comments: [facility] [address] [place], [address] INR 4.3 (Abnormal) Comments: CRITICAL VALUE VERIFIED. CALLED TO 05/10/17 0830 Josue Velazquez.RESULTS READ BACK BY . PROTIME 39.8 s (Abnormal) Range: 11.7-14.9 :18 Prothrombin Time w/INR Comments: [facility] [address] [place], [address] INR 2.4 (Normal) PROTIME 24.8 s (Abnormal) Range: 11.7-14.9 :18 Prothrombin Time w/INR Comments: [facility] [address] [place], [address] INR 2.4 (Normal) PROTIME 25.2 s (Abnormal) Range: 11.7-14.9 52-Tcu-035293:00 Prothrombin Time w/INR Comments: [facility] [address] [place], [address] INR 2.5 (Normal) PROTIME 25.8 s (Abnormal) Range: 11.7-14.9 :32 Prothrombin Time w/INR Comments: [facility] [address] [place], [address] INR 2.1 (Normal) PROTIME 22.7 s (Abnormal) Range: 11.7-14.9 :23 Prothrombin Time w/INR Comments: [facility] [address] [place], [address] INR 2.3 (Normal) PROTIME 24.6 s (Abnormal) Range: 11.7-14.9 :14 Prothrombin Time w/INR Comments: [facility] [address] [place], [address] INR 2.0 (Normal) PROTIME 21.9 s (Abnormal) Range: 11.7-14.9 8-Vlt-927585:18 Prothrombin Time w/INR Comments: [facility] [address] [place], [address] INR 2.5 (Normal) PROTIME 25.6 s (Abnormal) Range: 11.7-14.9 :39 Prothrombin Time w/INR Comments: [facility] [address] [place], [address] INR 2.1 (Normal) PROTIME 22.7 s (Abnormal) Range: 11.7-14.9 :40 Prothrombin Time w/INR Comments: [facility] [address] [place], [address] INR 2.6 (Normal) PROTIME 26.8 s (Abnormal) Range: 11.7-14.9 :40 Prothrombin Time w/INR Comments: [facility] [address] [place], [address] INR 2.2 (Normal) PROTIME 23.8 s (Abnormal) Range: 11.7-14.9 5-Bxo-787558:21 Prothrombin Time w/INR Comments: [facility] [address] [place], [address] INR 1.8 (Normal) PROTIME 20.1 s (Abnormal) Range: 11.7-14.9 :30 Prothrombin Time w/INR Comments: [facility] [address] [place], [address] INR 3.0 (Normal) PROTIME 30.2 s (Abnormal) Range: 11.7-14.9 :45 Prothrombin Time w/INR Comments: [facility] [address] [place], [address] INR 2.9 (Normal) PROTIME 29.1 s (Abnormal) Range: 11.7-14.9 :52 Prothrombin Time w/INR Comments: [facility] [address] [place], [address] INR 1.4 (Normal) PROTIME 17.0 s (Abnormal) Range: 11.7-14.9 :27 Prothrombin Time w/INR Comments: [facility] [address] [place], [address] INR 2.0 (Normal) PROTIME 21.7 s (Abnormal) Range: 11.7-14.9 :21 Prothrombin Time w/INR Comments: [facility] [address] [place], [address] INR 2.3 (Normal) PROTIME 24.1 s (Abnormal) Range: 11.7-14.9 :43 Prothrombin Time w/INR Comments: [facility] [address] [place], [address] INR 2.9 (Normal) PROTIME 29.1 s (Abnormal) Range: 11.7-14.9 :47 Prothrombin Time w/INR Comments: [facility] [address] [place], [address] INR 2.3 (Normal) PROTIME 24.0 s (Abnormal) Range: 11.7-14.9 :25 CBC W/Diff, Automated Comments: [facility] [address] [place], [address] ; see other message Absolute Lymph 2.07 [...] Range: 4.4-11.0 07-Jul-20167:25 Comprehensive Metabolic Profil Comments: [facility] [address] [place], [address] GAP 3 (Abnormal) Range: 5-15 CO2 28.0 [...] Range: 70-110 :25 Prothrombin Time w/INR Comments: [facility] [address] [place], [address] INR 3.5 (Abnormal) Comments: CRITICAL VALUE VERIFIED. CALLED TO PATRICE Longoria07/07/16 [facility] Radha Calderon.RESULTS READ BACK BY SAME . PROTIME 33.9 s (Abnormal) Range: 11.7-14.9 :25 Thyroid Stim Hormone (TSH) Comments: [facility] [address] [place], [address] TSH 3.25 {uIU/mL} (Normal) Range: 0.358-3.74 :47 Prothrombin Time w/INR Comments: [facility] [address] [place], [address] INR 2.6 (Normal) Comments: ADDENDA: handled by Dr. Phillips PROTIME 27.5 s (Abnormal) Range: 11.7-14.9 :32 Prothrombin Time w/INR Comments: [facility] [address] [place], [address] INR 2.3 (Normal) PROTIME 25.5 s (Abnormal) Range: 11.7-14.9 :15 Prothrombin Time w/INR Comments: [facility] [address] [place], [address] INR 2.6 (Normal) PROTIME 27.7 s (Abnormal) Range: 11.7-14.9 :29 Prothrombin Time w/INR Comments: [facility] [address] [place], [address] INR 1.3 (Normal) PROTIME 16.7 s (Abnormal) Range: 11.7-14.9 :19 Prothrombin Time w/INR Comments: [facility] [address] [place], [address] INR 2.1 (Normal) PROTIME 23.3 s (Abnormal) Range: 11.7-14.9 :14 Prothrombin Time w/INR Comments: [facility] [address] [place], [address] INR 2.0 (Normal) PROTIME 22.5 s (Abnormal) Range: 11.7-14.9 :21 Prothrombin Time w/INR Comments: [facility] [address] [place], [address] INR 2.7 (Normal) PROTIME 28.5 s (Abnormal) Range: 11.7-14.9 :30 Prothrombin Time w/INR Comments: [facility] [address] [place], [address] INR 2.4 (Normal) PROTIME 25.9 s (Abnormal) Range: 11.7-14.9 :41 Prothrombin Time w/INR Comments: [facility] [address] [place], [address] INR 2.5 (Normal) PROTIME 26.9 s (Abnormal) Range: 11.7-14.9 :09 Prothrombin Time w/INR Comments: [facility] [address] [place], [address] INR 3.4 (Normal) PROTIME 34.4 s (Abnormal) Range: 11.7-14.9 :11 Prothrombin Time w/INR Comments: [facility] [address] [place], [address] INR 2.5 (Normal) PROTIME 26.6 s (Abnormal) Range: 11.7-14.9 :33 Prothrombin Time w/INR Comments: [facility] [address] [place], [address] INR 1.5 (Normal) PROTIME 18.1 s (Abnormal) Range: 11.7-14.9 :12 Prothrombin Time w/INR Comments: [facility] [address] [place], [address] INR 1.1 (Normal) PROTIME 14.4 s (Normal) Range: 11.7-14.9 :51 Prothrombin Time w/INR Comments: [place] [address] [place], [address] INR 3.6 (Abnormal) Comments: CRITICAL VALUE REPEATED AND VERIFIED. CALLED TO Maycol DAVISON02/25/15 1001 Elsie Longoria.RESULTS READ BACK BY MARGUERITE . PROTIME 35.3 s (Abnormal) Range: 11.7-14.9 :23 Prothrombin Time w/INR Comments: [facility] [place] [address] [place], [address] INR 3.3 (Normal) PROTIME 33.3 s (Abnormal) Range: 11.7-14.9 :13 Prothrombin Time w/INR Comments: [facility] [address] [place], [address] INR 2.4 (Normal) PROTIME 26.5 s (Abnormal) Range: 11.7-14.9 :32 Prothrombin Time w/INR Comments: [facility] [place] [address] [place], [address] INR 1.4 (Normal) PROTIME 17.8 s (Abnormal) Range: 11.7-14.9 :09 Prothrombin Time w/INR Comments: [facility] [address] [place], [address] INR 1.2 (Normal) PROTIME 15.9 s (Abnormal) Range: 11.7-14.9 :12 Prothrombin Time w/INR Comments: [facility] [address] [place], [address] INR 2.4 (Normal) PROTIME 26.4 s (Abnormal) Range: 11.7-14.9 :20 Prothrombin Time w/INR Comments: [facility] [address] [place], [address] INR 2.2 (Normal) PROTIME 24.5 s (Abnormal) Range: 11.7-14.9 :11 Prothrombin Time w/INR Comments: Test performed at:[facility] [id number] [place] [address] INR 2.2 (Normal) PROTIME 24.1 s (Abnormal) Range: 11.7-14.9 :29 Prothrombin Time w/INR Comments: Test performed at:[facility] [id number] [place] [address] INR 3.7 (Abnormal) Comments: CRITICAL VALUE REPEATED AND VERIFIED. CALLED [facility] KIKE WOMACK12/21/14 [facility].RESULTS READ BACK BY SAME . PROTIME 36.5 s (Abnormal) Range: 11.7-14.9 :25 Prothrombin Time w/INR Comments: Test performed at:[facility] [address] [place] [address] INR 2.5 (Normal) PROTIME 27.1 s (Abnormal) Range: 11.7-14.9 :23 Miscellaneous Lab Procedure Comments: Comments: [id number] PTH PLUS CALCIUM LAV AND RED RFTest(s) Ordered: [id number] PTH PLUS CALCIUM LAV AND RED RFTest performed at:[facility] [address] [place] [address] [facility] [place]: TEST RESULT LIMITSCa+PTH Intact Calcium, Serum [...] - 65 < 8.6 TESTING PERFORMED AT [facility]. ORIGINAL REPORT ON FILE IN LAB CONTAINS AD DITIONAL TEST SITE INFORMATION. :23 Prothrombin Time w/INR Comments: Test performed at:[facility] [address] [place] [address] INR 4.0 (Abnormal) Comments: CRITICAL VALUE REPEATED AND VERIFIED. CALLED TO CPPQOM01/11/15 0933 Fletcher Foote.RESULTS READ BACK BY SAME . PROTIME 38.3 s (Abnormal) Range: 11.7-14.9 50-Pdw-18683:23 Vitamin D 1,25-Dihydroxy Comments: Test performed at:[facility] [address] [place] [address] VITD 1,25 07317 55.5 pg/mL (Normal) Range: 19.9-79.3 Comments: Performed at: [address] [id number] Director: Juan Ontiveros MD, Phone: [phone] :23 Vitamin D,25 Hydroxy Comments: Test performed at:[facility] [address] [place] [address] Vitamin D 25-OH 70.3 ng/mL (Normal) Comments: Vitamin D 25(OH) Status Range Deficiency <20 ng/mL (50nmol/L) Insuffciency 20 - 30 ng/mL (50 - 75 nmol/L) Sufficiency 30 - 100 ng/mL (75 - 250 nmol/L) Toxicity >100 ng/mL (>250 nmol/L) :04 Prothrombin Time w/INR Comments: Test performed at:[facility] [address] [place] [address] INR 2.1 (Normal) PROTIME 23.5 s (Abnormal) Range: 11.7-14.9 :12 Prothrombin Time w/INR Comments: Test performed at:[facility] [address] [place] [address] INR 1.6 (Normal) PROTIME 18.9 s (Abnormal) Range: 11.7-14.9 :10 Prothrombin Time w/INR Comments: Test performed at:[facility] [address] [place] [address] INR 1.1 (Normal) PROTIME 14.1 s (Normal) Range: 11.7-14.9 92-Lil-[id number]: ENDOMETRIAL BX/CURETTINGS See Note (Normal) Comments: Test performed at:[facility] [address] [place] [address] 49 Comments: Patient: YAHAIRA BRYANT : 1950 (64/F) Acct Num: [id number] Phys: Aliza Santana MD Unit Num: [id number] [place] [facility] [place]imen: [id number] Received: 11/26/14 - 1217 Spec Type: EN [...] owens. / NICOLÁS:papito 11/26/14 TC: 5 CPT: 33492 HEADER OPERATION: Hysteroscopy, diagnostic, D AND C PRE-OP DIAGNOSIS: Postmenopausal bleeding TISSUE SUBMITTED: Endometrial curettings MICROSCOPIC DESCRIPTION Slides are reviewed. MICROSCOPIC DIAGNOSIS Endometrial curettings: Scant strips of benign endometrial epithelium and superficial fragment of benign endometrial tissue, consistent with atrophic endometri um. Fragments of benign endocervical epithelium. SJ:papito 11/27/14 Signed Jeffy Suazo 11/27/14 <signature on file> 11-Zrx-508373:39 INR Fingerstick Comments: Test performed at:[facility] [address] [place] [address] INR ISTAT 1.10 (Normal) Comments: Critical Value > 3.5; ADDENDA: this is for pre-op, will resume tomorrow and recheck it in 1 week. 24-Cbx-875743:39 Prothrombin Time Fingerstick Comments: Test performed at:[facility] [address] [place] [address] PROTIME ISTAT 13.2 {SEC} (Normal) Range: 11.9-14.4 Comments: Reference Range 11.9 - 14.4 :41 Partial Thromboplast Time Comments: Test performed at:[facility] [address] [place] [address] PTT 40.9 s (Abnormal) Range: 24.1-36.2 :41 Prothrombin Time w/INR Comments: Test performed at:[facility] [address] [place] [address] INR 2.6 (Normal) PROTIME 27.4 s (Abnormal) Range: 11.7-14.9 35-Hrv-255783:41 Type AND Screen Comments: Surgery Date: 11/26/14Hx of Preganancy in last 3 Months NoEver experience any problems with transfusion(s)? NHx of Transfusion in last 3 Months NReason for Type AND Screen/Red Cells: SURGERYSURGI ADELSO PROCEDURE: .Test performed at:[facility] [address] [place] [address] Antibody Screen NEGATIVE (Normal) BLOOD TYPE GEL A POSITIVE (Normal) 93-Nfv-25020:09 CBC W/Diff, Automated Comments: Test performed at:[facility] [address] [place] [address] Absolute Lymph 2.07 {X10_3/ul} (Normal) [...] :09 Comprehensive Metabolic Profil Comments: Test performed at:[facility] [address] [place] [address] GAP 6 (Normal) Range: 5-15 CO2 29.0 [...] Comments: Please note revised CREATININE reference range sjettwgfo48/22/2015. BUN 19 mg/dL (Abnormal) Range: 7-18 GLU 75 mg/dL (Normal) Range: 70-110 :09 Prothrombin Time w/INR Comments: Test performed at:[facility] [address] [place] [address] INR 2.4 (Normal) PROTIME 25.8 s (Abnormal) Range: 11.7-14.9 :13 Prothrombin Time w/INR Comments: Test performed at:[facility] [address] [place] [address] INR 1.8 (Normal) PROTIME 21.2 s (Abnormal) Range: 11.7-14.9 :06 Prothrombin Time w/INR Comments: Test performed at:[facility] [address] [place] [id number] INR 2.2 (Normal) PROTIME 24.4 s (Abnormal) Range: 11.7-14.9 :50 Prothrombin Time w/INR Comments: Test performed at:[facility] [address] [place] [address] INR 1.7 (Normal) PROTIME 20.3 s (Abnormal) Range: 11.7-14.9 62-Dto-621166:16 Estrogen, Total, Serum Comments: Comments: TSHHas Patient had Radioactive Injection for X-ray?: NTest performed at:[facility] [address] [place] [address] ESTROGEN 4549 54 pg/mL (Normal) Comments: Prepubertal <40 Female Cycle: 1-10 Days 61 - 394 11-20 Days 122 - 437 21-30 Days 156 - 350 Post-Menopausal <40 HMG Treatment for Ovulation Induction: 400 - 800Performed at: [facility] Lab[address] [id number] Director: Juan Ontiveros MD, Phone: [phone] 55-Zgm-190518:16 Free T3 Comments: Comments: TSHTest performed at:[facility] [address] [place] [address] FREE T3 2.6 pg/mL (Normal) Range: 2.18-3.98 02-Vsy-209785:16 Hemoglobin A1c Comments: Test performed at:[facility] [address] [place] [address] HGB A1C 5.0 % (Normal) Range: 4.2-6.3 69-Wpi-947228:16 Progesterone Level Comments: Test performed at:[facility] [address] [place] [address] Progesterone 0.48 ng/mL (Normal) Comments: Progesterone Reference Table: UNITS Female: Follicular 0.15 - 1.40 ng/mL Luteal 3.34 - 25.56 ng/mL Mid-luteal 4.44 - 28.03 ng/mL Postmenopausal 0.0 - 0.73 ng/mL : 1st Trimester 11.22 - 90.00 ng /mL 2nd Trimester 25.55 - 89.40 ng/mL 3rd Trimester 48.40 -422.50 ng/mL 64-Scl-727252:16 T4 Free Direct Comments: Comments: TSHTest performed at:[facility] [address] [place] [address] T4 FREE DIRECT 1.16 ng/dL (Normal) Range: 0.76-1.46 57-Zrz-506107:16 Testosterone, Serum Total Comments: Test performed at:[facility] [address]ttx[address] [facility] [place] [address] ; ordered by Dr. Santana Testosterone 35 ng/dL (Normal) Range: 14-76 22-Uuv-498302:16 Thyroid Stim Hormone (TSH) Comments: Comments: TSHTest performed at:[facility] [address] [facility] [place] [address] TSH 1.53 {uIU/mL} (Normal) Range: 0.358-3.74 :11 Prothrombin Time w/INR Comments: Test performed at:[facility] [address] [place] [address] INR 1.8 (Normal) PROTIME 20.9 s (Abnormal) Range: 11.7-14.9 :27 Prothrombin Time w/INR Comments: Test performed at:[facility] Dxtxdchpjr5964 [facility] [place] [address] INR 2.2 (Normal) PROTIME 24.8 s (Abnormal) Range: 11.7-14.9 :08 Prothrombin Time w/INR Comments: Test performed at:[facility] [address]mpx[address] [facility] [place] [address] INR 4.8 (Abnormal) Comments: CRITICAL VALUE REPEATED AND VERIFIED. CALLED TO RADHA WOMACK10/01/14 0855 Nii Lind.RESULTS READ BACK BY DAVID. PROTIME 44.0 s (Abnormal) Range: 11.7-14.9 :14 Prothrombin Time w/INR Comments: Test performed at:[facility] [address] [place] [address] INR 2.6 (Normal) PROTIME 27.9 s (Abnormal) Range: 11.7-14.9 :16 Prothrombin Time w/INR Comments: Test performed at:[facility] [address] [place] [address] INR 5.0 (Abnormal) Comments: CRITICAL VALUE REPEATED AND VERIFIED. CALLED TO Tami DAVISON09/21/14 0809 Elsie Longoria.RESULTS READ BACK BY CONNER . PROTIME 45.5 s (Abnormal) Range: 11.7-14.9 :10 Prothrombin Time w/INR Comments: Test performed at:[facility] [address] [place] [address] INR 3.2 (Normal) PROTIME 32.8 s (Abnormal) Range: 11.7-14.9 :24 Miscellaneous Lab Procedure Comments: Comments: [id number] HHV-6 IGM,SST,REFRIGERATETest(s) Ordered: [id number] HHV-6 IGM,SST,REFRIGERATETest performed at:[facility] [address] [facility] [place] [address] [facility] [place]: TEST RESULT UNITS REFERENCE INTERVALHuman Herpes Virus Type 6 IgM <1:10 Neg:<1:10Results for this test are for research purposes only by LAB (Normal) theassay's road machine runner. The performance characteristics ofthis product have not been established. Results should notbe used as a diagnostic procedure without confirmation ofthe diagnosis by another med TEST ically established diagnosticproduct or procedure. TESTING PERFORMED AT [facility]. ORIGINAL REPORT ON FILE IN LAB CONTAINS ADDITIONAL TEST SITE IN FORMATION. :18 ANTINUCLEAR ANTIBODIES DIRECT Comments: Test performed at:[facility] [address] [place] [address] YURIY-DIRECT Negative (Normal) Comments: Performed at: [address] [id number] Director: Narendra Covarrubias PhD, Phone: [phone] :18 CMV Acute Antibody IgM Comments: Test performed at:[address] [place] [address] CMVIgM AB < 30.0 AU/mL (Normal) Range: 0.0-29.9 Comments: Negative <30.0 Equivocal 30.0 - 34.9 Positive >34.9A positive result is generally indicative of acuteinfection, react ivation or persistent IgM production.Performed at: [address] [id number] Director: Narendra Covarrubias PhD, Phone: [phone] at: [facility] [address] [place], [place] [id number] Director: Juan Ontiveros MD, Phone: [phone] at: [address] [place] [address] [id number] [place], [place] [id number] Director: Bill Tao PhD, Phone: [phone] :18 CMV Antibody IgG Comments: Test performed at:[address] [place] [address] CMV AB IgG > 10.00 U/mL (Abnormal) Range: 0.00-0.59 Comments: Negative <0.60 Equivocal 0.60 - 0.69 Positive >0.69 :18 EBV Acute Prof IgG / IgM Comments: Test performed at:[facility] [address] [facility] [place] [address] INTERPRETATION Comment (Normal) Comments: EBV Interpretation ChartInterpretation EBV-IgM EA(D)-IgG VCA-IgG EBNA-IgGEBV Seronegative - - - -Early Phase + - - -Acute Primary + +or- + -InfectionConvalescence/Past - +or- + +InfectionReactivated +or- + + +Infection + Antibody Present - Antibody Absent EB-NAg [id number] 71.5 U/mL (Abnormal) Range: 0.0-17.9 Comments: Negative <18.0 Equivocal 18.0 - 21.9 Positive >21.9 EB-VCA [id number] > 600.0 U/mL (Abnormal) Range: 0.0-17.9 Comments: Negative <18.0 Equivocal 18.0 - 21.9 Positive >21.9 EB-EA IgG 10708 21.1 U/mL (Abnormal) Range: 0.0-8.9 Comments: Hepatitis A, Hepatitis C and HIV antibodies may cross-reactwith this assay. Negative < 9.0 Equivocal 9.0 - 10.9 Positive >10.9 EB-VCA [id number] < 36.0 U/mL (Normal) Range: 0.0-35.9 Comments: Negative <36.0 Equivocal 36.0 - 43.9 Positive >43.9 :18 Ferritin Comments: Test performed at:[facility] [address] [place] [address] FERRITIN 28 ng/mL (Normal) Range: 8-252 :18 HLA B27 Negative (Normal) Comments: Test performed at:[facility] [address] [facility] [place] [address] Comments: HLA-B*27 NegativeA Lab CLIA ID Number [id number] test was performed using PCR (Polymerase ChainReaction)/SSOP (Sequence Specific Oligonucleotide Probes)technique. SBT (Sequence Based Typing) and/ or SSP(Sequence Specific Primers) may be used as supplementalmethods when necessary. Please contact [facility] CustomerService at if you have any questions. Director of HLA Laboratory Dr Bill Tao, PhD :18 Homocysteine Comments: Test performed at:[facility] [address] [place] [address] HOMOCYSTEINE 6.7 umol/L (Normal) Range: 3.2-10.7 :18 IgG Subclasses Comments: Test performed at:[facility] [address] [place] [address] IgG, SUBCLASS 4 1 mg/dL (Normal) Range: 1-291 Comments: Results verified by repeat testing IgG, SUBCLASS 3 52 mg/dL (Normal) Range: 41-129 IgG, SUBCLASS 2 145 mg/dL (Normal) Range: 117-747 IgG, SUBCLASS 1 264 mg/dL (Abnormal) Range: 422-1292 IGG, QUANT 520 mg/dL (Abnormal) Range: 700-1600 :18 Miscellaneous Lab Procedure Comments: Comments: [id number] HLA-DR4,SST,REFRIGERATETest(s) Ordered: [id number] HLA-DR4,SST,REFRIGERATETest performed at:[facility] [address] [place] [address] MISC Comments: TEST RESULT UNITS [...] needed to obtain therequired resolution. Please contact [facility] [phone] if you have any questions.Director of HLA LaboratoryDr Bill Tao, PhD :18 Miscellaneous Lab Procedure Comments: Comments: [id number] HHV-6 IGG,SST,REFRIGERATETest(s) Ordered: [id number] HHV-6 IGG,SST,REFRIGERATEList Test(s) Ordered by Physician: IGA SUBCLASSES, #[id number], SERUM,RM TEMP, 2 MLTest performed at:[facility] [address] [place] [id number] [facility] [place]: TEST RESULT UNITS REFERENCE INTERVALHHV 6 IgG Antibodies 2.42 High index Negative <0.76 Equivocal 0.76 - 0.99 LAB (Normal) Positive >0.99Results for this test are for research purposesonly by the assay's road machine runner. The performancecharacteristics of this product have not beenestablishe TEST d. Results should not be used as adiagnostic procedure without confirmation of thediagnosis by another medically established diagnosticproduct or procedure. [facility]. ORIGINAL REPORT ON FILE IN LAB CONTAINS ADDITIONAL TEST SITE INFORMATION. :18 Miscellaneous Lab Procedure 2 Comments: Comments: [id number] HHV- 6 IGG,SST,REFRIGERATETest(s) Ordered: [id number] HHV-6 IGG,SST,REFRIGERATEList Test(s) Ordered by Physician: IGA SUBCLASSES, #[id number], SERUM,RM TEMP, 2 MLTest performed at:[facility] [address] [place] [address] [facility] [place] Comments: TEST RESULT UNITS REFERENCE INTERVALIgA, Subclasses (1-2) Immunoglobulin A, Qn, Serum 161 mg/dL 91 - 414 IgA, Subclass 1 132.0 mg/dL LAB (Normal) 73.2 - 301.2 IgA, Subclass 2 6.2 Low mg/dL 13.4 - 97.9 TESTING PERFORMED AT [facility]. ORIGINAL REPORT ON FILE IN LAB CONTAINS MANFRED TEST TIONAL TEST SITE INFORMATION. 2 :18 Prothrombin Time w/INR Comments: Test performed at:[facility] [address] [place] [address] INR 1.9 (Normal) PROTIME 22.3 s (Abnormal) Range: 11.7-14.9 :18 Vitamin B12 664 pg/mL (Normal) Comments: Test performed at:[facility] [address] [place] [id number] Range: 211-911 :18 Vitamin D,25 Hydroxy Comments: Test performed at:[facility] [address] [place] [address] [place] [address] Vitamin D 25-OH 58.8 ng/mL (Normal) Comments: Vitamin D 25(OH) Status Range Deficiency <20 ng/mL (50nmol/L) Insuffciency 20 - 30 ng/mL (50 - 75 nmol/L) Sufficiency 30 - 100 ng/mL (75 - 250 nmol/L) Toxicity >100 ng/mL (>250 nmol/L) :13 CBC W/Diff, Automated Comments: Test performed at:[facility] Htuualfgof7386 [facility] [place] [address] Absolute Lymph 2.08 {X10_3/ul} (Normal) [...] :13 Comprehensive Metabolic Profil Comments: Test performed at:[facility] Mbslmttahx0343 [facility] [place] [address] GAP 7 (Normal) Range: 5-15 [...] 70-110 :13 Lipid Profile Comments: Test performed at:[facility] [address] [place], [place] [address](217) VLDL 9 mg/dL (Normal) Range: 5-40 LDL [...] :13 Prothrombin Time w/INR Comments: Test performed at:[facility] [address] [place] [address] INR 1.5 (Normal) PROTIME 18.4 s (Abnormal) Range: 11.7-14.9 :17 INR Fingerstick Comments: Test performed at:[facility] [address] [place] [address] INR ISTAT 1.50 (Normal) Comments: Critical Value > 3.5 :17 Prothrombin Time Fingerstick Comments: Test performed at:[facility] [address] [place] [address] PROTIME ISTAT 17.6 {SEC} (Abnormal) Range: 11.9-14.4 Comments: Reference Range 11.9 - 14.4 :09 INR Fingerstick Comments: Test performed at:[facility] [address] [place] [address] INR ISTAT 1.40 (Normal) Comments: Critical Value > 3.5 :09 Prothrombin Time Fingerstick Comments: Test performed at:[facility] [address] [place] [address] PROTIME ISTAT 17.1 {SEC} (Abnormal) Range: 11.9-14.4 Comments: Reference Range 11.9 - 14.4 :09 Prothrombin Time w/INR Comments: Test performed at:[facility] [address] [place] [address] INR 1.1 (Normal) PROTIME 14.6 s (Normal) Range: 11.7-14.9 :11 INR Fingerstick Comments: Test performed at:[facility] [address] [place] [address] INR ISTAT 1.20 (Normal) Comments: Critical Value > 3.5 :11 Prothrombin Time Fingerstick Comments: Test performed at:[facility] [address] [place] [address] PROTIME ISTAT 13.9 {SEC} (Normal) Range: 11.9-14.4 Comments: Reference Range 11.9 - 14.4 :06 INR Fingerstick Comments: Test performed at:[facility] [address] [place] [address] INR ISTAT 1.10 (Normal) Comments: Critical Value > 3.5 :06 Prothrombin Time Fingerstick Comments: Test performed at:[facility] [address] [place] [address] PROTIME ISTAT 13.6 {SEC} (Normal) Range: 11.9-14.4 Comments: Reference Range 11.9 - 14.4 :28 INR Fingerstick Comments: Test performed at:[facility] [address] [place] [address] INR ISTAT 2.20 (Normal) Comments: Critical Value > 3.5 :28 Prothrombin Time Fingerstick Comments: Test performed at:[facility] [address] [place] [address] PROTIME ISTAT 25.0 {SEC} (Abnormal) Range: 11.9-14.4 Comments: Reference Range 11.9 - 14.4 :19 INR Fingerstick Comments: Test performed at:[facility] [address] [place] [address] INR ISTAT 2.70 (Normal) Comments: Critical Value > 3.5 :19 Prothrombin Time Fingerstick Comments: Test performed at:[facility] [address] [place] [address] PROTIME ISTAT 30.6 {SEC} (Abnormal) Range: 11.9-14.4 Comments: Reference Range 11.9 - 14.4 :09 Prothrombin Time w/INR Comments: Test performed at:[facility] [address] [place] [address] INR 3.2 (Normal) PROTIME 32.6 s (Abnormal) Range: 11.7-14.9 :22 Prothrombin Time w/INR Comments: Test performed at:[facility] [address] [place] [address] INR 2.6 (Normal) PROTIME 27.8 s (Abnormal) Range: 11.7-14.9 :22 Prothrombin Time w/INR Comments: Test performed at:[facility] [address] [place] [address] INR 3.0 (Normal) PROTIME 30.9 s (Abnormal) Range: 11.7-14.9 :12 Prothrombin Time w/INR Comments: Test performed at:[facility] [address] [place] [address] INR 3.4 (Normal) PROTIME 33.7 s (Abnormal) Range: 11.7-14.9 :10 Prothrombin Time w/INR Comments: Test performed at:[facility] [address] [place] [address] INR 3.7 (Abnormal) PROTIME 36.4 s (Abnormal) Range: 11.7-14.9 99-Bxt-554775:20 Prothrombin Time w/INR Comments: Test performed at:[facility] [address] [place] [address] INR 3.0 (Normal) PROTIME 31.0 s (Abnormal) Range: 11.7-14.9 :10 Prothrombin Time w/INR Comments: Test performed at:[facility] [address] [place] [address] INR 3.0 (Normal) PROTIME 30.7 s (Abnormal) Range: 11.7-14.9 :04 Prothrombin Time w/INR Comments: Test performed at:[facility] [address] [place], [place] [address] INR 1.7 (Normal) PROTIME 19.7 s (Abnormal) Range: 11.7-14.9 :17 Prothrombin Time w/INR Comments: Test performed at:[facility] [address] [place], [place] [address] INR 1.8 (Normal) PROTIME 21.1 s (Abnormal) [...] Comments: Please note revised PROTIME reference range xmpyrdjql23/14/15. 11-Iwx-61608:05 PT INR 3.0 (Normal) PTP 30.6 s (Abnormal) Range: 11.7-14.9 Comments: Please note revised PROTIME reference range cvowklgnv21/14/15. 96-Oyl-87817:07 PT INR 5.6 (Abnormal) PTP 50.1 s (Abnormal) Range: 11.7-14.9 Comments: Please note revised PROTIME reference range nqfsxyliy32/14/15. :03 PT INR 2.5 (Normal) PTP 27.0 s (Abnormal) Range: 11.7-14.9 Comments: Please note revised PROTIME reference range . 37-Vuj-67003:03 PT INR 2.0 (Normal) PTP 23.0 s (Abnormal) Range: 11.7-14.9 Comments: Please note revised PROTIME reference range qgeqzvgru02. 2-:06 PT INR 2.1 (Normal) PTP 21.9 [...] CHOL 287 mg/dL (Abnormal) Comments: <200 mg/dL Cnvcfcpyk647-582 mg/dL Borderline>240 mg/dL High Risk TRIG 78 [...] CRITICAL VALUE REPEATED AND VERIFIED. CALLED TO MGFKOEQ18/14/14 075 Jeovanny Serrano.RESULTS READ BACK BY OLIVIER [...] CHOL 227 mg/dL (Abnormal) Comments: <200 mg/dL Dlhzydcly070-765 mg/dL Borderline>240 mg/dL High Risk HDL 81 [...] CHOL 229 mg/dL (Abnormal) Comments: <200 mg/dL Zpwyjqddh610-956 mg/dL Borderline>240 mg/dL High Risk :16 PT [...] Rodriguez M.D.September 21, 2012 at 11:00:07 AM [id number] Signed RU/RU If you are the referring physician and would like to consult with theradiologist who provided this interpretation, please contact Man Styles at [phone]. If this radiologist is unavailable, youwillbe directed [...] on 09/21/12 1106 Sign by: Laith Rodriguez 6-Lxg-350412:40 CUUR URC See Note (Normal) Comments: This is an amended result. A prior result that was reported as final has been changed.09/07/12 1448 by NSTANSLOSPreviously reported as: FINAL COLONY COUNT <1000 ORGANISM 1: MIXED GRAM POSITIVE ORGANISMS 5-Kjc-682760:40 LYMEWB jIGKYBXK84V Absent (Normal) tLYMWBINTM Negative (Normal) Comments: Note: [...] are those recommended byCDC/ASTPHLD. p23=Osp C , m50=zwxylylhh.Note:Sera from individuals with the following may cross reactin the Lyme Western Blot assays: other spirochetal diseases(periodontal disease, leptospirosis, relapsing fever, yaws,and pin ta); connective autoimmune (Rheumatoid Arthritis andSystemic Lupus Erythematosus and also individuals withAntinuclear Antibody); other infections (Angel MountainSpotted Fever; Desirae-Camargo Virus, and Cy tomegalovirus)..Performed at: [facility] [id number] Director: Juan Ontiveros MD, Phone: [phone] [id number] Absent (Normal) yRMMBEUK07Z Absent (Normal) yJSDJRVB29A Absent (Normal) fCGVKINM67A Absent (Normal) tLYMWBINTG Negative (Normal) Comments: Positive: 5 of the followingBorrelia- specific bands:18,23,28,30,39,41,45,58,66, and 93.Negative: No bands or bandingpatterns which do notmeet positive criteria. rGMATMQP91M Absent (Normal) jCHFKOXF50V Absent (Normal) yQTXTLPZ10E Absent (Normal) tJJWQAJH71W Present (Abnormal) jGOVHRNN85X Absent (Normal) hOHOLKXT51I Absent (Normal) vIPMRPKQ66A Absent (Normal) xJYUZCXL90O Absent (Normal) :03 PT INR 2.9 (Normal) PTP 28.1 s (Abnormal) Range: 11.9-14.4 08-Ioi-269591:12 Microscopic Examination Comments: PATIENT NOT FASTINGPERFORMED BY: [facility] [id number] Bacteria Few (Normal) Mucus Threads Present (Normal) Epithelial Cells (non renal) 0-10 {/hpf} (Normal) Range: 0 - 10 RBC None seen {/hpf} (Normal) Range: 0 - 3 WBC None seen {/hpf} (Normal) Range: 0 - 5 :12 Lyme Disease Antibody W/ Comments: PATIENT NOT FASTINGPERFORMED BY: [facility] [id number] Reflex ([id number]) Lyme Ab Interp.,EIA Negative (Normal) Lyme IgG/IgM Ab <0.91 {index} (Normal) Range: 0.00-0.90 Comments: Negative <0.91 Equivocal 0.91 - 1.09 Positive >1.09 Note: The [facility] heaven mary advises that Western blot testing be performed following all equivocal or positive EIA results. Final diagnosis should include appropriate clinical findi ngs and a positive EIA which is also positive by Western blot. :12 SED RATE ERYTHROCYTE ([id number]) Comments: PATIENT NOT FASTINGPERFORMED BY: [facility] [id number] Sedimentation Rate-Westergren 2 mm/h (Normal) Range: 0-40 :12 C-REACTIVE PROTEIN ([id number]) Comments: PATIENT NOT FASTINGPERFORMED BY: [facility] [id number] C-Reactive Protein, Quant 0.7 mg/L (Normal) Range: 0.0-4.9 69-Wuu-904893:12 URINALYSIS, W/ MICRO ([id number]) Comments: PATIENT NOT FASTINGPERFORMED BY: [facility] [id number] Microscopic Examination See below: (Normal) Nitrite, Urine Negative (Normal) Urobilinogen,Semi-Qn 0.2 mg/dL (Normal) Range: 0.0-1.9 Bilirubin Negative (Normal) Occult Blood Negative (Normal) Ketones 3+ (Abnormal) Glucose Negative (Normal) Protein 1+ (Abnormal) WBC Esterase Negative (Normal) Appearance Clear (Normal) Urine-Color Yellow (Normal) pH 6.0 (Normal) Range: 5.0-7.5 Specific [place] 1.025 (Normal) Range: 1.005-1.030 :12 TSH ([id number]) Comments: PATIENT NOT FASTINGPERFORMED BY: [facility]5061 [facility] [id number] TSH 2.400 {uIU/mL} (Normal) Range: 0.450-4.500 40-Hrj-515406:12 METABOLIC PANEL, COMPREHENSIVE Comments: PATIENT NOT FASTINGPERFORMED BY: [facility] [id number] ([id number]) ALT (SGPT) 19 [iU]/L (Normal) Range: 0-32 [...] Glucose, Serum 91 mg/dL (Normal) Range: 65-99 12-Ouw-685999:12 CBC WITH MANUAL DIFF Comments: PATIENT NOT FASTINGPERFORMED BY: [facility] [id number] Information: [id number] ([id number]) Immature Grans (Abs) 0.0 {x10E3/uL} (Normal) Range: [...] D deficiency has been defined by the Platter ofMedicine and an Endocrine Society practice guideline as alevel of serum 25-OH vitamin D less than 20 ng/mL (1,2).The Endocrine Society went on to further define vitamin Dinsufficiency as a level between 21 and 29 ng/mL (2).1. IOM (Platter of Medicine). 2010. Dietary reference intakes for calcium and D. [place]: The National Academies Press.2. Ana MF, Heriberto [place], Jayla BECKFORD, et al. Evaluation, treatment, and prevention of vitamin D deficiency: an Endocrine Society clinical practice guideline. JCEM. 2010; 96(7): 1911-30.Performed at: - [facility] [id number] Director: Narendra Covarrubias PhD, Phone: [phone] Plan of Care Name Dates Details Instructions [...] Indication: Osteoporosis Planned Observations PT (Prothrobim Time) ([id number])Indication: Anticoagulated on Coumadin On: 23-May-2018 Request PT (Prothrobim Time) ([id number])Indication: Anticoagulated on Coumadin On: 16-May-2018 Request PT (Prothrobim Time) ([id number])Indication: Anticoagulated on Coumadin On: 09-May-2018 Request PT (Prothrobim Time) ([id number])Indication: Anticoagulated on Coumadin On: 02-May-2018 Request PT (Prothrobim Time) ([id number])Indication: Anticoagulated on Coumadin On: 25-Apr-2018 Request PT (Prothrobim Time) ([id number])Indication: Anticoagulated on Coumadin On: 18-Apr-2018 Request PT (Prothrobim Time) ([id number])Indication: Anticoagulated on Coumadin On: 11-Apr-2018 Request PT (Prothrobim Time) ([id number])Indication: Anticoagulated on Coumadin On: 04-Apr-2018 Request PT (Prothrobim Time) ([id number])Indication: Anticoagulated on Coumadin On: 28-Mar-2018 Request PT (Prothrobim Time) ([id number])Indication: Anticoagulated on Coumadin On: 21-Mar-2018 Request PT (Prothrobim Time) ([id number])Indication: Anticoagulated on Coumadin On: 14-Mar-2018 Request PT (Prothrobim Time) ([id number])Indication: Anticoagulated on Coumadin On: 07-Mar-2018 Request PT (Prothrobim Time) ([id number])Indication: Anticoagulated on Coumadin On: 28-Feb-2018 Request PT (Prothrobim Time) ([id number])Indication: Anticoagulated on Coumadin On: 21-Feb-2018 Request PT (Prothrobim Time) ([id number])Indication: Anticoagulated on Coumadin On: 14-Feb-2018 Request PT (Prothrobim Time) ([id number])Indication: Anticoagulated on Coumadin On: 07-Feb-2018 Request PT (Prothrobim Time) ([id number])Indication: Anticoagulated on Coumadin On: 31-Jan-2018 Request PT (Prothrobim Time) ([id number])Indication: Anticoagulated on Coumadin On: 24-Jan-2018 Request PT (Prothrobim Time) ([id number])Indication: Anticoagulated on Coumadin On: 17-Jan-2018 Request PT (Prothrobim Time) ([id number])Indication: Anticoagulated on Coumadin On: 10-Jan-2018 Request PT (Prothrobim Time) ([id number])Indication: Anticoagulated on Coumadin On: 03-Jan-2018 Request PT (Prothrobim Time) ([id number])Indication: Anticoagulated on Coumadin On: 27-Dec-2017 Request PT (Prothrobim Time) ([id number])Indication: Anticoagulated on Coumadin On: 20-Dec-2017 Request BILIRUBIN, TOTAL ([id number])Indication: Encounter for screening for lipid disorder On: 93-Vto-517482:28 Request BILIRUBIN, DIRECT ([id number])Indication: Encounter for screening for lipid disorder On: 28-Mij-075684:28 Request CBC, PLATELETS & AUT DIFF ([id number])Indication: Encounter for screening for lipid disorder On: 46-Wjs-546826:47 Request Metabolic Panel, Comprehensive ([id number])Indication: Encounter for screening for lipid disorder On: 51-Kve-20841:10 Request CBC & PLATELETS (AUTO) ([id number])Indication: Encounter for screening for lipid disorder On: 69-Zet-52141:10 Request LIPID PANEL ([id number])Indication: Encounter for screening for lipid disorder On: 19-Yrb-16922:09 Request PT (Prothrobim Time) ([id number])Indication: Anticoagulated on Coumadin On: 13-Dec-2017 Request PT (Prothrobim Time) ([id number])Indication: Anticoagulated on Coumadin On: 06-Dec-2017 Request PT (Prothrobim Time) ([id number])Indication: Anticoagulated on Coumadin On: 29-Nov-2017 Request PT (Prothrobim Time) ([id number])Indication: Anticoagulated on Coumadin On: 22-Nov-2017 Request PT (Prothrobim Time) ([id number])Indication: Anticoagulated on Coumadin On: 15-Nov-2017 Request PT (Prothrobim Time) ([id number])Indication: Anticoagulated on Coumadin On: 08-Nov-2017 Request PT (Prothrobim Time) ([id number])Indication: Anticoagulated on Coumadin On: 01-Nov-2017 Request PT (Prothrobim Time) ([id number])Indication: Anticoagulated on Coumadin On: 25-Oct-2017 Request PT (Prothrobim Time) ([id number])Indication: Anticoagulated on Coumadin On: 18-Oct-2017 Request PT (Prothrobim Time) ([id number])Indication: Anticoagulated on Coumadin On: 11-Oct-2017 Request PT (Prothrobim Time) ([id number])Indication: Anticoagulated on Coumadin On: 04-Oct-2017 Request PT (Prothrobim Time) ([id number])Indication: Anticoagulated on Coumadin On: 27-Sep-2017 Request PT (Prothrobim Time) ([id number])Indication: Anticoagulated on Coumadin On: 20-Sep-2017 Request PT (Prothrobim Time) ([id number])Indication: Anticoagulated on Coumadin On: 13-Sep-2017 Request PT (Prothrobim Time) ([id number])Indication: Anticoagulated on Coumadin On: 06-Sep-2017 Request PT (Prothrobim Time) ([id number])Indication: Anticoagulated on Coumadin On: 30-Aug-2017 Request PT (Prothrobim Time) ([id number])Indication: Anticoagulated on Coumadin On: 23-Aug-2017 Request PT (Prothrobim Time) ([id number])Indication: Anticoagulated on Coumadin On: 16-Aug-2017 Request PT (Prothrobim Time) ([id number])Indication: Anticoagulated on Coumadin On: 09-Aug-2017 Request PT (Prothrobim Time) ([id number])Indication: Anticoagulated on Coumadin On: 02-Aug-2017 Request PT (Prothrobim Time) ([id number])Indication: Anticoagulated on Coumadin On: 26-Jul-2017 Request PT (Prothrobim Time) ([id number])Indication: Anticoagulated on Coumadin On: 19-Jul-2017 Request PT (Prothrobim Time) ([id number])Indication: Anticoagulated on Coumadin On: 12-Jul-2017 Request PT (Prothrobim Time) ([id number])Indication: Anticoagulated on Coumadin On: 05-Jul-2017 Request PT (Prothrobim Time) ([id number])Indication: Anticoagulated on Coumadin On: 28-Jun-2017 Request PT (Prothrobim Time) ([id number])Indication: Anticoagulated on Coumadin On: 21-Jun-2017 Request PT (Prothrobim Time) ([id number])Indication: Anticoagulated on Coumadin On: 14-Jun-2017 Request PT (Prothrobim Time) ([id number])Indication: Anticoagulated on Coumadin On: 07-Jun-2017 Request PT (Prothrobim Time) ([id number])Indication: Anticoagulated on Coumadin On: 31-May-2017 Request PT (Prothrobim Time) ([id number])Indication: Anticoagulated on Coumadin On: 25-May-2017 Request PT (Prothrobim Time) ([id number])Indication: Anticoagulated on Coumadin On: 25-May-2017 Request PT (Prothrobim Time) ([id number])Indication: Anticoagulated on Coumadin On: 24-May-2017 Request PT (Prothrobim Time) ([id number])Indication: Anticoagulated on Coumadin On: 17-May-2017 Request PT (Prothrobim Time) ([id number])Indication: Anticoagulated on Coumadin On: 10-May-2017 Request PT (Prothrobim Time) ([id number])Indication: Anticoagulated on Coumadin On: 03-May-2017 Request PT (Prothrobim Time) ([id number])Indication: Anticoagulated on Coumadin On: 26-Apr-2017 Request PT (Prothrobim Time) ([id number])Indication: Anticoagulated on Coumadin On: 25-Apr-2017 Request PT (Prothrobim Time) ([id number])Indication: Anticoagulated on Coumadin On: 25-Apr-2017 Request PT (Prothrobim Time) ([id number])Indication: Anticoagulated on Coumadin On: 19-Apr-2017 Request PT (Prothrobim Time) ([id number])Indication: Anticoagulated on Coumadin On: 12-Apr-2017 Request PT (Prothrobim Time) ([id number])Indication: Anticoagulated on Coumadin On: 05-Apr-2017 Request PT (Prothrobim Time) ([id number])Indication: Anticoagulated on Coumadin On: 29-Mar-2017 Request PT (Prothrobim Time) ([id number])Indication: Anticoagulated on Coumadin On: 26-Mar-2017 Request PT (Prothrobim Time) ([id number])Indication: Anticoagulated on Coumadin On: 26-Mar-2017 Request PT (Prothrobim Time) ([id number])Indication: Anticoagulated on Coumadin On: 22-Mar-2017 Request PT (Prothrobim Time) ([id number])Indication: Anticoagulated on Coumadin On: 15-Mar-2017 Request PT (Prothrobim Time) ([id number])Indication: Anticoagulated on Coumadin On: 08-Mar-2017 Request PT (Prothrobim Time) ([id number])Indication: assisted (current) use of anticoagulants (Renamed from assisted current use of anticoagulant therapy) On: 94-Mma-268728:48 Request Comments: Standing order PT (Prothrobim Time) ([id number])Indication: Anticoagulated on Coumadin On: 01-Mar-2017 Request PT (Prothrobim Time) ([id number])Indication: Anticoagulated on Coumadin On: 24-Feb-2017 Request PT (Prothrobim Time) ([id number])Indication: Anticoagulated on Coumadin On: 24-Feb-2017 Request PT (Prothrobim Time) ([id number])Indication: Anticoagulated on Coumadin On: 22-Feb-2017 Request PT (Prothrobim Time) ([id number])Indication: Anticoagulated on Coumadin On: 15-Feb-2017 Request PT (Prothrobim Time) ([id number])Indication: Anticoagulated on Coumadin On: 08-Feb-2017 Request PT (Prothrobim Time) ([id number])Indication: Anticoagulated on Coumadin On: 01-Feb-2017 Request PT (Prothrobim Time) ([id number])Indication: Anticoagulated on Coumadin On: 25-Jan-2017 Request PT (Prothrobim Time) ([id number])Indication: Anticoagulated on Coumadin On: 25-Jan-2017 Request PT (Prothrobim Time) ([id number])Indication: Anticoagulated on Coumadin On: 25-Jan-2017 Request PT (Prothrobim Time) ([id number])Indication: Anticoagulated on Coumadin On: 18-Jan-2017 Request PT (Prothrobim Time) ([id number])Indication: Anticoagulated on Coumadin On: 11-Jan-2017 Request PT (Prothrobim Time) ([id number])Indication: Anticoagulated on Coumadin On: 04-Jan-2017 Request PT (Prothrobim Time) ([id number])Indication: Anticoagulated on Coumadin On: 28-Dec-2016 Request PT (Prothrobim Time) ([id number])Indication: Anticoagulated on Coumadin On: 26-Dec-2016 Request PT (Prothrobim Time) ([id number])Indication: Anticoagulated on Coumadin On: 26-Dec-2016 Request PT (Prothrobim Time) ([id number])Indication: Anticoagulated on Coumadin On: 21-Dec-2016 Request PT (Prothrobim Time) ([id number])Indication: Anticoagulated on Coumadin On: 14-Dec-2016 Request PT (Prothrobim Time) ([id number])Indication: Anticoagulated on Coumadin On: 07-Dec-2016 Request PT (Prothrobim Time) ([id number])Indication: Anticoagulated on Coumadin On: 30-Nov-2016 Request PT (Prothrobim Time) ([id number])Indication: Anticoagulated on Coumadin On: 26-Nov-2016 Request PT (Prothrobim Time) ([id number])Indication: Anticoagulated on Coumadin On: 26-Nov-2016 Request PT (Prothrobim Time) ([id number])Indication: Anticoagulated on Coumadin On: 23-Nov-2016 Request PT (Prothrobim Time) ([id number])Indication: Anticoagulated on Coumadin On: 16-Nov-2016 Request PT (Prothrobim Time) ([id number])Indication: Anticoagulated on Coumadin On: 09-Nov-2016 Request PT (Prothrobim Time) ([id number])Indication: Anticoagulated on Coumadin On: 02-Nov-2016 Request PT (Prothrobim Time) ([id number])Indication: Anticoagulated on Coumadin On: 27-Oct-2016 Request PT (Prothrobim Time) ([id number])Indication: Anticoagulated on Coumadin On: 27-Oct-2016 Request PT (Prothrobim Time) ([id number])Indication: Anticoagulated on Coumadin On: 26-Oct-2016 Request PT (Prothrobim Time) ([id number])Indication: Anticoagulated on Coumadin On: 19-Oct-2016 Request PT (Prothrobim Time) ([id number])Indication: Anticoagulated on Coumadin On: 12-Oct-2016 Request PT (Prothrobim Time) ([id number])Indication: Anticoagulated on Coumadin On: 05-Oct-2016 Request PT (Prothrobim Time) ([id number])Indication: Anticoagulated on Coumadin On: 28-Sep-2016 Request PT (Prothrobim Time) ([id number])Indication: Anticoagulated on Coumadin On: 27-Sep-2016 Request PT (Prothrobim Time) ([id number])Indication: Anticoagulated on Coumadin On: 27-Sep-2016 Request PT (Prothrobim Time) ([id number])Indication: Anticoagulated on Coumadin On: 21-Sep-2016 Request PT (Prothrobim Time) ([id number])Indication: Anticoagulated on Coumadin On: 14-Sep-2016 Request PT (Prothrobim Time) ([id number])Indication: Anticoagulated on Coumadin On: 07-Sep-2016 Request PT (Prothrobim Time) ([id number])Indication: Anticoagulated on Coumadin On: 31-Aug-2016 Request PT (Prothrobim Time) ([id number])Indication: Anticoagulated on Coumadin On: 28-Aug-2016 Request PT (Prothrobim Time) ([id number])Indication: Anticoagulated on Coumadin On: 28-Aug-2016 Request PT (Prothrobim Time) ([id number])Indication: Anticoagulated on Coumadin On: 24-Aug-2016 Request PT (Prothrobim Time) ([id number])Indication: Anticoagulated on Coumadin On: 17-Aug-2016 Request PT (Prothrobim Time) ([id number])Indication: Anticoagulated on Coumadin On: 10-Aug-2016 Request PT (Prothrobim Time) ([id number])Indication: Anticoagulated on Coumadin On: 03-Aug-2016 Request PT (Prothrobim Time) ([id number])Indication: Anticoagulated on Coumadin On: 29-Jul-2016 Request PT (Prothrobim Time) ([id number])Indication: Anticoagulated on Coumadin On: 29-Jul-2016 Request PT (Prothrobim Time) ([id number])Indication: Anticoagulated on Coumadin On: 27-Jul-2016 Request PT (Prothrobim Time) ([id number])Indication: Anticoagulated on Coumadin On: 20-Jul-2016 Request PT (Prothrobim Time) ([id number])Indication: Anticoagulated on Coumadin On: 13-Jul-2016 Request PT (Prothrobim Time) ([id number])Indication: Anticoagulated on Coumadin On: 06-Jul-2016 Request Metabolic Panel, Comprehensive ([id number])Indication: Irritable Bowel Syndrome On: 78-Ejm-355155:28 Request TSH ([id number])Indication: Irritable Bowel Syndrome On: 08-Jzq-853071:28 Request CBC, Platelets & Auto Diff ([id number])Indication: Irritable Bowel Syndrome On: 46-Ase-632156:28 Request PT (Prothrobim Time) ([id number])Indication: Anticoagulated on Coumadin On: 24-Sza-727438:24 Request PT (Prothrobim Time) ([id number])Indication: DVT (deep venous thrombosis) On: 43-Gbj-142840:11 Request Comments: INR - STANDING ORDER Vitamin D Hydroxy ([id number])Indication: Osteoporosis On: 25-Rxc-776577:16 Request TSH ([id number])Indication: Osteoporosis On: 29-Iwa-085894:16 Request CBC with auto diff ([id number])Indication: Benign Essential Hypertension On: 32-Vkm-649380:16 Request METABOLIC PANEL, COMPREHENSIVE ([id number])Indication: Benign Essential Hypertension On: 33-Nzo-699976:16 Request LIPID PANEL ([id number])Indication: Hyperlipidemia On: 44-Ljp-924649:16 Request CBC W/AUTO DIFF WBC ([id number])Indication: Benign Essential Hypertension On: 9-Ayw-654889:34 Request METABOLIC PANEL, COMPREHENSIVE ([id number])Indication: Benign Essential Hypertension On: 2-Hds-160010:34 Request TSH ([id number])Indication: Osteoporosis On: :39 Request CBC W/AUTO DIFF WBC ([id number])Indication: Osteoporosis On: :39 Request LIPID PANEL ([id number])Indication: Hyperlipidemia On: :38 Request METABOLIC PANEL, COMPREHENSIVE ([id number])Indication: Benign Essential Hypertension On: :38 Request PT (Prothrobim Time) ([id number])Indication: DVT (deep venous thrombosis) On: 7-Nze-675556:18 Request Comments: FINGER STICKSTANDING ORDER PT (Prothrobim Time) ([id number])Indication: DVT (deep venous thrombosis) On: 89-Mbn-587283:28 Request Comments: Standing Order URINALYSIS, W/ MICRO ([id number])Indication: Benign Essential Hypertension On: :37 Request METABOLIC PANEL, COMPREHENSIVE ([id number])Indication: Benign Essential Hypertension On: :37 Request LIPID PANEL ([id number])Indication: Hyperlipidemia On: :37 Request CBC W/AUTO DIFF WBC ([id number])Indication: DVT (deep venous thrombosis) On: :37 Request PT (Prothrobim Time) ([id number])Indication: DVT (deep venous thrombosis) On: 18-Zzh-649222:02 Request CBC WITH MANUAL DIFF ([id number])Indication: Benign Essential Hypertension On: :39 Request METABOLIC PANEL, COMPREHENSIVE ([id number])Indication: Hyperlipidemia On: :39 Request LIPID PANEL ([id number])Indication: Hyperlipidemia On: :39 Request PT (Prothrobim Time) ([id number])Indication: DVT (deep venous thrombosis) On: :07 Request Comments: pls call chief substation operator Dr Hunter with results on 05/20/13 PT (Prothrobim Time) ([id number])Indication: DVT (deep venous thrombosis) On: 58-Ssc-559503:00 Request Comments: Standing Order PT (Prothrobim Time) ([id number])Indication: DVT (deep venous thrombosis) On: :59 Request Comments: INR - STANDING ORDER x 1 year URINALYSIS, W/ MICRO ([id number])Indication: Benign Essential Hypertension On: :15 Request CBC WITH MANUAL DIFF ([id number])Indication: Benign Essential Hypertension On: :15 Request METABOLIC PANEL, COMPREHENSIVE ([id number])Indication: Benign Essential Hypertension On: 07-Feb-20139:14 Request LIPID PANEL ([id number])Indication: Hyperlipidemia On: :14 Request METABOLIC PANEL, COMPREHENSIVE ([id number])Indication: Benign Essential Hypertension On: :06 Request LIPID PANEL ([id number])Indication: Hyperlipidemia On: :06 Request URINE HANNAH CULTURE-IDENTIFICATN ([id number])Indication: Urinary frequency On: :56 Request URINE HANNAH CULTURE-IDENTIFICATN ([id number])Indication: Insect bite On: 89-Ngo-121474:19 Request Lyme Disease,Serum, Western Blot ([id number])Indication: Insect bite On: 18-Itl-187662:19 Request PT (Prothrobim Time) ([id number])Indication: DVT (deep venous thrombosis) On: 46-Lsm-357698:59 Request Comments: standing order LIPID PANEL ([id number])Indication: FAMILY HISTORY OF ISCHEMIC HEART DISEASE On: 21-Iek-790960:28 Request LIPID PANEL ([id number])Indication: FAMILY HISTORY OF ISCHEMIC HEART DISEASE On: 0-Avy-019731:51 Request Vitamin D Hydroxy ([id number])Indication: Osteoporosis On: 3-Sjl-263317:18 Request TSH ([id number])Indication: Osteoporosis On: 6-Teo-029700:18 Request URINALYSIS, W/ MICRO ([id number])Indication: Osteoporosis On: 3-Wam-188024:18 Request CBC WITH MANUAL DIFF ([id number])Indication: Osteoporosis On: 8-Ajo-054742:18 Request METABOLIC PANEL, COMPREHENSIVE ([id number])Indication: Osteoporosis On: 3-Bvd-539224:18 Request PTT (Activated Partial Thromboplastin Time) ([id number])Indication: DVT (deep venous thrombosis) On: 3-Mse-764356:16 Request PT (Prothrobim Time) ([id number])Indication: DVT (deep venous thrombosis) On: 9-Fnb-406412:16 Request Planned Encounters Medical; Review Results - On: 07-Feb-2018 13:00 [facility] Selam Blair CNP E Selam Blair CNP Planned Procedures DEXA SCAN AXIAL SKELETON ([id number])By: On: 17-Dec-2017 Intent Selam Blair CNP, CNP, Mary E Aerosol Treatment ([id number])By: Johnnie On: 02-Jun-2017 Intent Selam DAVIES CNP, Mary E Ultrasound - LiverBy: Minalcuca Selam DAVIES On: 15-Dec-2016 Intent E Selam Blair CNP Aerosol Treatment ([id number])By: Johnnie On: 13-Oct-2016 Intent Selam DAVIES CNP, Mary E Aerosol Treatment ([id number])By: Aleksey On: 19-Feb-2015 Intent Eliana HOFFMANN Ultrasound - AortaBy: Helen Barnes DO On: 18-Dec-2014 Intent EKG ([id number])By: Helen Barnes DO On: 05-Nov-2014 Intent Comments: ekg showed normal sinus rhythym, normal axis, no acute st/t wave changes BILATERAL MAMMOGRAMS ([id number])By: Timothy On: 17-Sep-2014 Intent Helen [place] Radiology - Shoulder - LeftBy: Bonezzi On: 05-Mar-2014 Intent Fatimah RANDLE Comments: if not better with PT MAMMOGRAM, SCREENING, BOTH BREASTS On: 08-Aug-2013 Intent ([id number])By: Helen Barnes DO Eprescribed prescriptions ([id number])By: On: 08-Aug-2013 Intent Helen Barnes DO DXA, BONE DENSITY, AXIAL SKELETON On: 21-Oct-2012 Intent ([id number])By: Helen Barnes DO Comments: dexa- dec Eprescribed prescriptions ([id number])By: On: 21-Oct-2012 Intent So Bailey Breast Screening - BilateralBy: Timothy On: 19-Sep-2012 Intent Helen [place] Eprescribed prescriptions ([id number])By: On: 30-Aug-2012 Intent So Bailey Spirometry ([id number])By: Helen Barnes DO On: 11-Mar-2012 Intent A Comments: good effort and curve mild obst- Doppler Ultrasound OtherBy: Timothy [place], On: 11-Mar-2012 Intent Helen A Comments: both legs- stat call results Eprescribed prescriptions ([id number])By: On: 11-Mar-2012 Intent So Bailey TD Injection , IM ([id number])By: Leo, On: 11-Mar-2012 Intent So Comments: 2003 FLU VAC, SPLIT, >3 YEARS, INTRAMUSC On: 11-Mar-2012 Intent ([id number])By: So Bailey Comments: got at [facility] Instructions Name Dates Details Nonsmoker [...] Coumadin : DISCONTINUED - PT (PROTHROMBIN TIME) ([id number]) Indication: Anticoagulated on Coumadin Irritable Bowel Syndrome [...] patient does not have durable power of employment law attorney. The patient has noticed nothing from the geriatic depression scale. Other providers contributing to the patient's care are vp product management (dr. meseret santana) and other: (eye- dr. [...] Medicine Annotation/Addendum On: 01-Mar-2017 12:47 Encounter Diagnosis: assisted (current) use of anticoagulants (Renamed from assisted current use of anticoagulant therapy) End: 01-Mar-2017 [...] patient does not have durable power of employment law attorney or living will . The patient has noticed nothing from the geriatic depression scale. Other providers contributing to the patient's care are other: (dr crawford for eyes). 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 The p atient has noticed nothing from the geriatic depression scale. Other providers contributing to the patient's care are other: (ENT and dr crawford for eyes). Note for Annual Medicare Exam: Pt has WWE done by her [employer]ATION [employer]., [ADDITIONAL REASON] Follow up for chronic medical [...] cyst is gone- - still fluid in bad [place] and calcification- going to have D?C- [...] with Lyme dz symptoms- pt went to [place] and had lyme dz treatment-), has End: [...]
--- OUTSIDE RECORDS SUMMARY | 2018-06-24 14:32 | XMS RPT_ITS ---
:1950 Author Organization OHIP Support Name Relationship Address Phone YING BRYANT Unavailable [address] + [place] [address] ANNETTE, MENDY Unavailable [address] + [place] [address] R Unavailable Unavailable Unavailable ANNETTE, YING Unavailable [address] + [place] [address] ANNETTE, MENDY Unavailable [address] + [place] [address] R Unavailable Unavailable Unavailable ANNETTE, YING Unavailable [address] + [place] [address] ANNETTE, MENDY Unavailable [address] + [place] [address] R Unavailable Unavailable Unavailable ANNETTE, YING Unavailable [address] + [place] [address] ANNETTE, MENDY Unavailable [address] + [place] [address] R Unavailable Unavailable Unavailable ANNETTE, YING Unavailable [address] + [place] [address] ANNETTE, MENDY Unavailable [address] + [place] [address] R Unavailable Unavailable Unavailable ANNETTE, YING Unavailable [address] + [place] [address] ANNETTE, MENDY Unavailable [address] + [place] [address] R Unavailable Unavailable Unavailable ANNETTE, YING Unavailable [address] + [place] [address] ANNETTE, MENDY Unavailable [address] + [place] [address] R Unavailable Unavailable Unavailable ANNETTE, YING Unavailable [address] + [place] [address] ANNETTE, MENDY Unavailable [address] + [place] [address] R Unavailable Unavailable Unavailable ANNETTE, YING Unavailable [address] + [place] [address] ANNETTE, MENDY Unavailable [address] + [place] [address] R Unavailable Unavailable Unavailable ANNETTE, YING Unavailable [address] + [place] [address] ANNETTE, MENDY Unavailable [address] + [place] [address] R Unavailable Unavailable Unavailable ANNETTE, YING Unavailable [address] + [place] [address] ANNETTE, MENDY Unavailable [address] + [place] [address] R Unavailable Unavailable Unavailable ANNETTE, YING Unavailable [address] + [place] [address] ANNETTE, MENDY Unavailable [address] + [place] [address] R Unavailable Unavailable Unavailable ANNETTE, YING Unavailable [address] + [place] [address] ANNETTE, MENDY Unavailable [address] + [place] [address] R Unavailable Unavailable Unavailable ANNETTE, YING Unavailable [address] + [place] [address] ANNETTE, MENDY Unavailable [address] + [place] [address] R Unavailable Unavailable Unavailable ANNETTE, YING Unavailable [address] + [place] [address] ANNETTE, MENDY Unavailable [address] + [place] [address] R Unavailable Unavailable Unavailable ANNETTE, YING Unavailable [address] [phone] [place] [address] ANNETTE, MENDY Unavailable [address] + [place] [address] R Unavailable Unavailable Unavailable ANNETTE, YING Unavailable [address] [phone] [place] [address] ANNETTE, MENDY Unavailable [address] + [place] [address] R Unavailable Unavailable Unavailable ANNETTE, YING Unavailable [address] [phone] [place] [address] ANNETTE, MENDY Unavailable [address] + [place] [address] R Unavailable Unavailable Unavailable ANNETTE, YING Unavailable [address] [phone] [place] [address] ANNETTE, MENDY Unavailable [address] + [place] [address] R Unavailable Unavailable Unavailable Care Team Providers Name Role Phone Selam Blair Attending Unavailable Fast DO, Helen A Referring Unavailable CiSelam carter Consulting Unavailable CiSelam carter Attending Unavailable CiSelam carter Referring Unavailable Ciesa Selam Primary Care Unavailable Selam Blair Attending Unavailable CiesaSelam [facility] Blair [facility] Unavailable Aliza Santana Attending Unavailable [facility] Unavailable Aliza Santana Referring Unavailable Selam Blair Attending Un[facility] Unavailable Selam Blair Referring Unavailable CiesaSelam Attending Unavailable CiesaSelam Referring Unavailable [facility] Unavailable Selam Blair Attending Unavailable CiesaSelam Referring Unavailable [facility] Unavailable Selam Blair Attending Unavailable CiesaSelam Referring Unavailable [facility] Unavailable Selam Blair Attending Unavailable CiesaSelam Referring Unavailable [facility] Unavailable CiSelam carter Attending Unavailable CiesaSelam Referring Unavailable [facility] Unavailable CiSelam carter Attending Unavailable CiesaSelam Referring Unavailable [facility] Unavailable CimargaretaSelam Attending Unavailable CiesaSelam Referring Unavailable [facility] Unavailable CiSelam carter Attending Unavailable [facility] Unavailable CimargaretaSelam Referring Unavailable CiesaSelam Attending Unavailable [facility] Unavailable Selam Blair Attending Unavailable CiesaSelam Referring Unavailable [facility] Unavailable Selam Blair Attending Unavailable CiesaSelam Referring Unavailable [facility] Unavailable Selam Blair Attending Unavailable Selam Blair Referring Unavailable Selam Blair Primary Care Unavailable Sigrid Mobley HAND BOOTMAKER-C Attending Unavailable Selam Blair Primary Care Unavailable Sigrid Mobley HAND BOOTMAKER-C Referring Unavailable Selam Blair Attending Unavailable Selam Blair Referring Unavailable Selam Blair Primary Care Unavailable PROBLEMS PROBLEMS DATE TYPE CONDITION / CODE ATTENDING STATUS SOURCE 04/19/2018 Unknown Z86.718 - Personal CiSelam carter history of other Community venous thrombosis Hospital and embolism / Repository Z86.718(ICD-10) 03/07/2018 Unknown Z79.01 - assisted CiSelam carter (current) use of [facility] anticoagulants / Hospital Z79.01(ICD-10) Repository 02/07/2018 Unknown D72.819 - Decreased Selam Blair white blood cell Community count, unspecified / Hospital D72.819(ICD-10) Repository 01/04/2018 Unknown Z13.220 - Encounter Selam Blair for screening for [facility] lipoid disorders / Hospital Z13.220(ICD-10) Repository PROCEDURES PROCEDURES No Procedure Records FoundRESULTS RESULTS PROTHROMBIN TIME W/INR Collected: 04/25/2018 Status: F Source: [place] 9:43 AM [facility] REPOSITORY TYPE CODE TESTS RESULT OUT OF RANGE REFERENCE UNITS LAB L300.4150 11.7-14.9 SECONDS High PROTIME 30.0 LAB L300.4200 Normal INR 2.8 Performed By: #### L300.3900 #### [facility] [place], [address] CBC W/DIFF, AUTOMATED Collected: 04/18/2018 Status: F Source: [place] 9:54 AM [facility] REPOSITORY TYPE CODE TESTS RESULT OUT OF RANGE REFERENCE UNITS LAB L100.1000 4.4-11.0 K/mm3 Normal WBC 8.5 LAB L100.1200 4.2-5.4 M/mm3 Low RBC 4.11 LAB L100.1300 12.0-15.0 g/dl Normal HGB 13.4 LAB L100.1400 37-47 % Normal HCT 39.5 LAB L100.1500 81-99 fL Normal MCV 96.1 LAB L100.1600 27.0-32.0 pg High MCH 32.6 LAB L100.1700 32-36 g/gl Normal MCHC 33.9 LAB L100.1810 11.6-14.6 % Normal RDW CV 12.6 LAB L100.1820 35.1-43.9 fl High RDW SD 44.1 LAB L100.1900 150-450 K/mm3 Normal PLT 183 LAB L100.2000 6.2-12.0 fl Normal MPV 10.2 LAB L100.2100 47-70 % High NEUT% 73.7 LAB L100.2200 19-41 % Low LY% 18.3 LAB L100.2300 0-10 % Normal MONO% 7.1 LAB L100.2400 0-5 % Normal EO% 0.6 LAB L100.2500 0-1 % Normal BASO% 0.2 LAB L100.2550 0.0-0.9 % Normal IM GRAN % 0.100 Result Comment: IG% - Immature Granulocytes (promyelocytes, myelocytes and metamyelocytes) > 1% indicates that a LEFT SHIFT is Present. LAB L100.2620 2.0-7.7 X10 3/uL Normal Absolute Neut 6.2 LAB L100.2720 0.83-4.51 X10 3/ul Normal Absolute Lymph 1.55 Performed By: #### L100.0100 #### [facility] [address] [facility] [id number] PROTHROMBIN TIME W/INR Collected: 04/18/2018 Status: F Source: [place] 9:54 AM [facility] REPOSITORY TYPE CODE TESTS RESULT OUT OF RANGE REFERENCE UNITS LAB L300.4150 11.7-14.9 SECONDS High PROTIME 24.5 LAB L300.4200 Normal INR 2.2 Performed By: #### L300.3900 #### [facility] [address] [place], [place], [address] PROTHROMBIN TIME W/INR Collected: 03/23/2018 Status: F Source: [place] 10:33 AM [facility] REPOSITORY TYPE CODE TESTS RESULT OUT OF RANGE REFERENCE UNITS LAB L300.4150 11.7-14.9 SECONDS High PROTIME 30.5 LAB L300.4200 Normal INR 2.9 Performed By: #### L300.3900 #### [facility] [address] [place], [address] PROTHROMBIN TIME W/INR Collected: 03/02/2018 Status: F Source: [place] 11:34 AM [facility] REPOSITORY TYPE CODE TESTS RESULT OUT OF RANGE REFERENCE UNITS LAB L300.4150 11.7-14.9 SECONDS High PROTIME 29.2 LAB L300.4200 Normal INR 2.7 Performed By: #### L300.3900 #### [facility] [address] [place], [address] PROTHROMBIN TIME W/INR Collected: 02/22/2018 Status: F Source: [place] 1:41 PM [facility] REPOSITORY TYPE CODE TESTS RESULT OUT OF RANGE REFERENCE UNITS LAB L300.4150 11.7-14.9 SECONDS High PROTIME 31.4 LAB L300.4200 Normal INR 3.0 Performed By: #### L300.3900 #### [facility] [address] [place], [address] VENOUS DUPLEX LOWER Observed: 02/16/2018 Status: F Source: [place] EXTREMITY 8:14 AM [facility] REPOSITORY [facility] Cardiovascular Services [address] [place] [address] Venous Duplex US, Unilateral 02/15/18 1350 MR#: [id number] Acct: [id number] Name: YAHAIRA BRYANT Rep #: [id number] : 1950 67 From: Tony Valentino MD Attending Dr: KRISTIAN Cruz Status: REG CLI Ordering Dr: Sigrid Mobley Date: 02/15/18 Location: CVS Sex: F C Admitted: Reason For Study: pain RIGHT LEFT CFV is compressible, spontaneous, phasic, GSV is normal. competent and demonstrates normal CFV is compressible, spontaneous, phasic, augmentation. competent, and demonstrates normal augmentation. FV is compressible, spontaneous, phasic, competent and demonstrates normal augmentation. POP V is compressible, spontaneous, phasic, competent and demonstrates normal augmentation. T/P Trunk is compressible. PTV is compressible. LT PerV is compressible. <> Interpretation Summary Deep veins of the left lower extremity are patent and compressible segmentally. There is no evidence of left lower extremity deep vein thrombosis. Valvular competence appears intact within the proximal deep venous system on the left . The left greater saphenous vein appears patent and compressible segmentally. Ordering Physician: KRISTIAN Cruz Performed By: Nigel Luu RVT 02/16/18812 Date Tony Valentino MD CC: Selam Blair NP; HAND BOOTMAKER-C Sigrid Mobley Date Dictated: 02/15/18 1350 Date Transcribed: 02/16/18812 Marketing Rep: Signed PROTEIN ELECTRO.UR-RANDOM Collected: Status: F Source: [place] 02/07/2018 2:17 PM [facility] REPOSITORY TYPE CODE TESTS RESULT OUT OF RANGE REFERENCE UNITS LAB L3600.4100 Not Estab. mg/dL Normal 8.3 PROTEIN,UR LAB L3600.4200 . % Normal 39.4 ALBUMIN,UR LAB L3600.4300 . % Normal 2.3 DXDES-4-UNCX ,U LAB L3600.4400 . % Normal 9.5 RHRYM-9-QIJE ,U LAB L3600.4500 . % Normal BETA 33.2 GLOB,U LAB L3600.4600 . % Normal GAMMA 15.5 GLOB,U LAB L3600.4720 Normal M-SPIKE,U Result Comment: NOT BSERVED LAB L3600.4800 . Normal NOTE Comment Result Comment: Protein electrophoresis scan will follow via computer, mail, or veneer jointer operator delivery. Performed at: [place] [id number] Nutrition Services Worker: Jairo Sears PhD, Phone: [phone] Performed By: #### L3600.4000 #### [facility] (refer to report for specific site) refer to report for address and phone number ANTINUCLEAR ANTIBODIES Collected: 02/07/2018 Status: F Source: [place] DIRECT 2:17 PM [facility] REPOSITORY TYPE CODE TESTS RESULT OUT OF RANGE REFERENCE UNITS LAB L3100.5475 Negative Normal Negative YURIY-DIRECT Result Comment: Performed at: [facility] [employer] [id number] Nutrition Services Worker: Jairo Sears PhD, Phone: [phone] Performed By: #### L3100.5475 #### [facility] (refer to report for specific site) refer to report for address and phone number PROTEIN ELECTROPH, S Collected: 02/07/2018 Status: F Source: [place] 2:17 PM [facility] REPOSITORY TYPE CODE TESTS RESULT OUT OF RANGE REFERENCE UNITS LAB L3100.3500 6.0-8.5 g/dL Normal PROTEIN,TOTAL 6.2 LAB L3100.3600 2.9-4.4 g/dL Normal ALBUMIN 3.8 LAB L3100.3700 0.0-0.4 g/dL Normal ALPHA-1 GLOBUL 0.3 LAB L3100.3800 0.4-1.0 g/dL Normal ALPHA-2 GLOBUL 0.6 LAB L3100.3900 0.7-1.3 g/dL Normal BETA GLOBULIN 1.1 LAB L3100.4000 0.4-1.8 g/dL Normal GAMMA GLOBULIN 0.5 LAB L3100.4110 Normal M-SPIKE Result Comment: NOT OBSERVED LAB L3100.4200 2.2-3.9 g/dL GLOBULIN, TOTAL Normal 2.4 LAB L3100.4300 0.7-1.7 A/G RATIO Normal 1.6 LAB L3100.4320 . INTERPRETATION Normal Comment Result Comment: Protein electrophoresis scan will follow via computer, mail, or veneer jointer operator delivery. LAB L3100.4340 . Normal NOTE: Comment Result Comment: The SPE pattern appears essentially unremarkable. Evidence of monoclonal protein is not apparent. Performed at: [facility] [employer] [id number] Nutrition Services Worker: Jairo Sears PhD, Phone: [phone] Performed By: #### L3100.3450 #### [facility] (refer to report for specific site) refer to report for address and phone number PROTHROMBIN TIME W/INR Collected: 02/01/2018 Status: F Source: [place] 7:18 AM [facility] REPOSITORY TYPE CODE TESTS RESULT OUT OF RANGE REFERENCE UNITS LAB L300.4150 11.7-14.9 SECONDS High PROTIME 28.9 LAB L300.4200 Normal INR 2.7 Performed By: #### L300.3900 #### [facility] [address] [place], [place], [address] CBC W/DIFF, AUTOMATED Collected: 01/14/2018 Status: F Source: [place] 7:58 AM [facility] REPOSITORY TYPE CODE TESTS RESULT OUT OF RANGE REFERENCE UNITS LAB L100.1000 4.4-11.0 K/mm3 Low WBC 3.3 LAB L100.1200 4.2-5.4 M/mm3 Normal RBC 4.25 LAB L100.1300 12.0-15.0 g/dl Normal HGB 14.2 LAB L100.1400 37-47 % Normal HCT 40.1 LAB L100.1500 81-99 fL Normal MCV 94.4 LAB L100.1600 27.0-32.0 pg High MCH 33.4 LAB L100.1700 32-36 g/gl Normal MCHC 35.4 LAB L100.1810 11.6-14.6 % Normal RDW CV 12.3 LAB L100.1820 35.1-43.9 fl Normal RDW SD 41.8 LAB L100.1900 150-450 K/mm3 Normal PLT 214 LAB L100.2000 6.2-12.0 fl Normal MPV 10.7 LAB L100.2100 47-70 % Low NEUT% 38.7 LAB L100.2200 19-41 % High LY% 45.0 LAB L100.2300 0-10 % Normal MONO% 10.0 LAB L100.2400 0-5 % Normal EO% 4.2 LAB L100.2500 0-1 % High BASO% 2.1 LAB L100.2550 0.0-0.9 % Normal IM GRAN % 0.000 Result Comment: IG% - Immature Granulocytes (promyelocytes, myelocytes and metamyelocytes) > 1% indicates that a LEFT SHIFT is Present. LAB L100.2620 2.0-7.7 X10 3/uL Low Absolute Neut 1.3 LAB L100.2720 0.83-4.51 X10 3/ul Normal Absolute Lymph 1.49 Performed By: #### L100.0100 #### [facility] [address] [place], [address] TOTAL BILIRUBIN Collected: 01/14/2018 Status: F Source: [place] 7:58 AM [facility] REPOSITORY TYPE CODE TESTS RESULT OUT OF RANGE REFERENCE UNITS LAB L501.4600 0.20-1.00 mg/dL Normal T BILI 0.80 Performed By: #### L501.4600, L501.4700 #### [facility] [address] [facility] [address] BILIRUBIN, DIRECT Collected: 01/14/2018 Status: F Source: [place] 7:58 AM [facility] REPOSITORY TYPE CODE TESTS RESULT OUT OF RANGE REFERENCE UNITS LAB L501.4700 0.00-0.30 mg/dL Normal D BILI 0.18 Performed By: #### L501.4600, L501.4700 #### [facility] [place], [address] PROTHROMBIN TIME W/INR Collected: 01/04/2018 Status: F Source: [place] 12:14 PM [facility] REPOSITORY TYPE CODE TESTS RESULT OUT OF RANGE REFERENCE UNITS LAB L300.4150 11.7-14.9 SECONDS High PROTIME 27.6 LAB L300.4200 Normal INR 2.6 Performed By: #### L300.3900 #### [facility] [address] [place], [address] DEXA BONE DENSITY Observed: 12/23/2017 Status: F Source: [place] STUDY 8:44 AM [facility] REPOSITORY [facility] Imaging Services [address] [place] [address] Dexa Bone Density Study MR#: [id number] Acct: [id number] Name: YAHAIRA BRYANT Rep #: [id number] : 1950 F 67 From: Cole Coronado MD PCP: Selam Blair NP Status: REG CLI Study: Dexa Bone Density Study Date of Exam: 12/23/17 Exam# [id number] Ordering Dr: Selam Blair STUDY: DUAL ENERGY X-RAY ABSORPTIOMETRY / DXA REASON FOR EXAM: Female, 67 years old. The patient is postmenopausal. Loss of height. TECHNIQUE: Bone Mineral Density (BMD) measurements of lumbar spine and bilateral hips were obtained. COMPARISON: Comparison is made with prior study dated March 05, 2011. FINDINGS: Lumbar Spine (L1-L4): g/cm2 (0.937) / T-score (-2.0) / Z-score (-0.4) Findings are suggestive of osteopenia with a moderate fracture risk. Left Femur Total: g/cm2 (0.626) / T-score (-3.0) / Z- score (-1.7) Left Femoral Neck: g/cm2 (0.592) / T-score (-3.2) / Z- score (-1.6) Right Femur Total: g/cm2 (0.682) / T-score (-2.6) / Z- score (-1.2) Right Femoral Neck: g/cm2 (0.665) / T-score (-2.7) / Z-score (-1.1) The T-Scores on the most recent prior examination were: Lumbar Spine (L1-L4): There has been worsening of bone density since the previous examination. Left Femur Total: which represents a worsening of 13.3%. Right Femur Total: which represents a worsening of 7.6%. BD/Dexa Bone Density Study IMPRESSION: The patient is considered osteoporotic as outlined below according to World Yossi Organization (WHO) criteria with a high fracture risk. There has been worsening of bone density since the previous examination. Reference Information: The T-score is the number of standard deviations above or below the standard which is normal for young adults at their peak bone mineral density. The World Health Organization (WHO) interprets the T-scores as follows: Above -1 Normal bone density Between -1 and -2.5 Osteopenia Equal to / or below -2.5 Osteoporosis As a practical clinical guideline, osteopenia may be graded as follows: Mild -1 through -1.5 Moderate -1.6 through -2.0 Severe -2.1 through -2.4 The Z-score is the number of standard deviations above or below age-matched controls. A Z-score of less than -1.5 would be considered abnormal. References: 1. NIH Osteoporosis and Related Bone Diseases http://www.osteo.org 2. International Society for Clinical Densitometry http://www.iscd.org 3. National Osteoporosis Foundation http://www.nof.org Electronically Signed: Cole Coronado MD at 8:50 EDT Tel [phone], Service support , CC: Selam Blair NP Marketing Rep: Signed CBC W/DIFF, AUTOMATED Collected: 12/17/2017 Status: F Source: [place] 10:01 AM [facility] REPOSITORY TYPE CODE TESTS RESULT OUT OF RANGE REFERENCE UNITS LAB L100.1000 4.4-11.0 K/mm3 Low WBC 3.3 LAB L100.1200 4.2-5.4 M/mm3 Normal RBC 4.37 LAB L100.1300 12.0-15.0 g/dl Normal HGB 14.2 LAB L100.1400 37-47 % Normal HCT 41.0 LAB L100.1500 81-99 fL Normal MCV 93.8 LAB L100.1600 27.0-32.0 pg High MCH 32.5 LAB L100.1700 32-36 g/gl Normal MCHC 34.6 LAB L100.1810 11.6-14.6 % Normal RDW CV 12.5 LAB L100.1820 35.1-43.9 fl Normal RDW SD 42.8 LAB L100.1900 150-450 K/mm3 Normal PLT 207 LAB L100.2000 6.2-12.0 fl Normal MPV 10.5 LAB L100.2100 47-70 % Normal NEUT% 48.8 LAB L100.2200 19-41 % Normal LY% 38.2 LAB L100.2300 0-10 % Normal MONO% 10.0 LAB L100.2400 0-5 % Normal EO% 1.5 LAB L100.2500 0-1 % High BASO% 1.5 LAB L100.2550 0.0-0.9 % Normal IM GRAN % 0.000 Result Comment: IG% - Immature Granulocytes (promyelocytes, myelocytes and metamyelocytes) > 1% indicates that a LEFT SHIFT is Present. LAB L100.2620 2.0-7.7 X10 3/uL Low Absolute Neut 1.6 LAB L100.2720 0.83-4.51 X10 3/ul Normal Absolute Lymph 1.26 Performed By: #### L100.0100 #### [facility] [address] [place], [address] COMPREHENSIVE METABOLIC Collected: 12/17/2017 Status: F Source: [facility] 10:01 AM [facility] REPOSITORY TYPE CODE TESTS RESULT OUT OF RANGE REFERENCE UNITS LAB L501.0100 74-106 mg/dL Normal GLU 77 Result Comment: Please note revised GLUCOSE reference range effective 2017. LAB L501.1000 7-18 mg/dL High BUN 22 LAB L501.1100 0.55-1.02 mg/dL Normal CREAT,SERUM 0.80 Result Comment: The validity of the calculated GFR AND GFRAA in patients over 70 years has not been determined. Clinical correlation is essential. LAB L501.1110 >60 mL/min Normal EST GFR 76 Result Comment: Non- GFR Calc LAB L501.1115 >60 mL/min Normal EST GFR - AA 92 Result Comment: GFR Calc LAB L501.1300 10-20 RATIO High BUN/CRE 27.6 LAB L501.1500 6.4-8.2 g/dL T Normal PROT 7.1 LAB L501.1800 3.2-5.0 g/dL Normal ALB 4.2 LAB L501.1950 2.2-4.2 g/dL Normal GLOB 2.9 LAB L501.2000 0.9-2.4 RATIO Normal A/G 1.4 LAB L501.2200 8.5-10.1 mg/dL CA Normal 8.9 LAB L501.4100 15-37 U/L Normal AST 19 LAB L501.4305 45-117 U/L Normal ALK P 77 LAB L501.4405 13-56 U/L Normal ALT 28 LAB L501.4600 0.20-1.00 mg/dL High T BILI 1.30 LAB L501.5300 136-145 mmol/L NA Normal 141 LAB L501.5600 3.5-5.1 mmol/L K Normal 4.0 LAB L501.5900 98-107 mmol/L CL Normal 104 LAB L501.6100 21.0-32.0 mmol/L Normal CO2 28.0 LAB L501.6200 5-15 Normal GAP 9 Performed By: #### L500.4050 #### [facility] [address] [facility] [place], [address] PROTHROMBIN TIME W/INR Collected: 12/14/2017 Status: F Source: [place] 2:15 PM [facility] REPOSITORY TYPE CODE TESTS RESULT OUT OF RANGE REFERENCE UNITS LAB L300.4150 11.7-14.9 SECONDS High PROTIME 31.3 LAB L300.4200 Normal INR 3.0 Performed By: #### L300.3900 #### [facility] [address] [facility] [place], [address] PROTHROMBIN TIME W/INR Collected: 11/15/2017 Status: F Source: [place] 7:26 AM [facility] REPOSITORY TYPE CODE TESTS RESULT OUT OF RANGE REFERENCE UNITS LAB L300.4150 11.7-14.9 SECONDS High PROTIME 29.3 LAB L300.4200 Normal INR 2.8 Performed By: #### L300.3900 #### [facility] [address] [place], [address] PROTHROMBIN TIME W/INR Collected: 10/28/2017 Status: F Source: [place] 12:50 PM [facility] REPOSITORY TYPE CODE TESTS RESULT OUT OF RANGE REFERENCE UNITS LAB L300.4150 11.7-14.9 SECONDS High PROTIME 28.7 LAB L300.4200 Normal INR 2.7 Performed By: #### L300.3900 #### [facility] [address] [place], [address] PROTHROMBIN TIME W/INR Collected: 10/21/2017 Status: F Source: [place] 8:35 AM [facility] REPOSITORY TYPE CODE TESTS RESULT OUT OF RANGE REFERENCE UNITS LAB L300.4150 11.7-14.9 SECONDS High PROTIME 30.2 LAB L300.4200 Normal INR 2.9 Performed By: #### L300.3900 #### [facility] [address] [facility] [place], [address] PROTHROMBIN TIME W/INR Collected: 10/14/2017 Status: F Source: [place] 7:44 AM [facility] REPOSITORY TYPE CODE TESTS RESULT OUT OF RANGE REFERENCE UNITS LAB L300.4150 11.7-14.9 SECONDS High PROTIME 30.1 LAB L300.4200 Normal INR 2.9 Performed By: #### L300.3900 #### [facility] [address] [facility] [place], [address] SCREENING MAMM (CAD), Observed: 10/07/2017 Status: F Source: [place] BILAT 7:26 AM [facility] REPOSITORY [facility] Imaging Services [address] [place] [address] SCREENING MAMM (CAD), BILAT MR#: [id number] Acct: [id number] Name: YAHAIRA BRYANT Rep #: [id number] : 1950 F 67 From: Cole Coronado MD PCP: Selam Blair NP Status: REG CLI Study: SCREENING MAMM (CAD), BILAT Date of Exam: 10/07/17 Exam# [id number] Ordering Dr: Aliza Santana MD MAMMOGRAPHY - BILATERAL SCREENING REASON FOR EXAM: Female, 67 years old. Routine annual screening examination. PERTINENT HISTORY: Non-contributory. TECHNIQUE: Digital bilateral breast efren (3D mammographic acquisition) in the CC and MLO projections. 2-D mediolateral oblique (MLO) and craniocaudad (CC) views of both breasts were obtained. CAD: Full Field Digital Mammography with Computer Added Detection was performed. COMPARISON: Comparison is made with prior study dated May 04, 2016 and December 12, 2014. FINDINGS: Breast Composition: There are scattered areas of fibroglandular density. There are no dominant masses or suspicious calcifications. Stable appearance of the mastoid calcifications in both breasts. No other significant abnormalities are identified. There has been no significant change since the prior study. BI/SCREENING MAMM (CAD), BILAT IMPRESSION: Stable bilateral screening mammogram. Yearly follow-up mammogram recommended. (A) ASSESSMENT CATEGORY: BIRADS Category 2: Benign. A letter regarding these results will be sent to the patient by the facility within 30 days. Approximately 10% of breast cancers are not detected by mammography. A normal mammogram should not delay biopsy of a clinically suspicious abnormality. [id number] Electronically Signed: Cole Coronado MD at 11:23 EDT Tel [phone], Service support , CC: Selam Blair NP; Aliza Santana MD Marketing Rep: Signed PROTHROMBIN TIME W/INR Collected: 10/07/2017 Status: F Source: [place] 6:55 AM [facility] REPOSITORY TYPE CODE TESTS RESULT OUT OF RANGE REFERENCE UNITS LAB L300.4150 11.7-14.9 SECONDS High PROTIME 29.4 LAB L300.4200 Normal INR 2.8 Performed By: #### L300.3900 #### [facility] [address] [place], [address] DOWNTIME REPORT Observed: 2017 Status: F Source: [place] 12:28 PM [facility] REPOSITORY [facility] Medical Records Department [address] [place] [address] Downtime Report MR#: [id number] Acct: [id number] Name: YAHAIRA BRYANT Rep #: [id number] : 1950 67 From: Jered Man PCP: Selam Blair NP Status: REG CLI This patient was seen during an EMR downtime September 06, 2017 - September 13, 2017. This patient may have a combination of paper and electronic documentation or all paper documentation. All documentation is viewable within the e-chart portion of [employer] for each patient visit. PROTHROMBIN TIME W/INR Collected: 2017 Status: F Source: [place] 7:10 AM [facility] REPOSITORY TYPE CODE TESTS RESULT OUT OF RANGE REFERENCE UNITS LAB L300.4150 11.7-14.9 SECONDS High PROTIME 26.2 LAB L300.4200 Normal INR 2.4 Performed By: #### L300.3900 #### [facility] [address] [place], [address] PROTHROMBIN TIME W/INR Collected: 09/16/2017 Status: F Source: [place] 7:09 AM [facility] REPOSITORY TYPE CODE TESTS RESULT OUT OF RANGE REFERENCE UNITS LAB L300.4150 11.7-14.9 SECONDS Normal PROTIME 14.0 LAB L300.4200 Normal INR 1.1 Performed By: #### L300.3900 #### [facility] [facility] [place], [address] PROTHROMBIN TIME W/INR Collected: 09/08/2017 Status: F Source: [place] 8:29 AM [facility] REPOSITORY Order Comment: RESULT(S) PREVIOUSLY REPORTED ON MANUAL REQUISITION DURING DOWNTIME. TYPE CODE TESTS RESULT OUT OF RANGE REFERENCE UNITS LAB L300.4150 11.7-14.9 SECONDS High PROTIME 16.4 LAB L300.4200 Normal INR 1.3 Performed By: #### L300.3900 #### [facility] [place], [address] PROTHROMBIN TIME W/INR Collected: 08/16/2017 Status: F Source: [place] 7:30 AM [facility] REPOSITORY TYPE CODE TESTS RESULT OUT OF RANGE REFERENCE UNITS LAB L300.4150 11.7-14.9 SECONDS High PROTIME 22.9 LAB L300.4200 Normal INR 2.0 Performed By: #### L300.3900 #### [facility] [address] [place], [place], [address] PROTHROMBIN TIME W/INR Collected: 08/09/2017 Status: F Source: [place] 9:01 AM [facility] REPOSITORY TYPE CODE TESTS RESULT OUT OF RANGE REFERENCE UNITS LAB L300.4150 11.7-14.9 SECONDS High PROTIME 18.0 LAB L300.4200 Normal INR 1.5 Performed By: #### L300.3900 #### [facility] [address] [place] [address] Ave. [place], [place], [address] PROTHROMBIN TIME W/INR Collected: 07/26/2017 Status: F Source: [place] 9:46 AM [facility] REPOSITORY TYPE CODE TESTS RESULT OUT OF RANGE REFERENCE UNITS LAB L300.4150 11.7-14.9 SECONDS High PROTIME 22.2 LAB L300.4200 Normal INR 1.9 Performed By: #### L300.3900 #### [facility] [place], [address] PROTHROMBIN TIME W/INR Collected: 07/19/2017 Status: F Source: [place] 10:25 AM [facility] REPOSITORY TYPE CODE TESTS RESULT OUT OF RANGE REFERENCE UNITS LAB L300.4150 11.7-14.9 SECONDS High PROTIME 22.0 LAB L300.4200 Normal INR 1.9 Performed By: #### L300.3900 #### [facility] [address] [place], [address] PROTHROMBIN TIME W/INR Collected: 07/12/2017 Status: F Source: [place] 7:59 AM [facility] REPOSITORY TYPE CODE TESTS RESULT OUT OF RANGE REFERENCE UNITS LAB L300.4150 11.7-14.9 SECONDS High PROTIME 22.8 LAB L300.4200 Normal INR 2.0 Performed By: #### L300.3900 #### [facility] [address] [place], [place], [address] PROTHROMBIN TIME W/INR Collected: 07/05/2017 Status: F Source: [place] 9:58 AM [facility] REPOSITORY TYPE CODE TESTS RESULT OUT OF RANGE REFERENCE UNITS LAB L300.4150 11.7-14.9 SECONDS High PROTIME 20.7 LAB L300.4200 Normal INR 1.8 Performed By: #### L300.3900 #### [facility] [address] [place], [address] PROTHROMBIN TIME W/INR Collected: 06/28/2017 Status: F Source: [place] 10:31 AM [facility] REPOSITORY TYPE CODE TESTS RESULT OUT OF RANGE REFERENCE UNITS LAB L300.4150 11.7-14.9 SECONDS High PROTIME 19.9 LAB L300.4200 Normal INR 1.7 Performed By: #### L300.3900 #### [facility] [place], [address] PROTHROMBIN TIME W/INR Collected: 06/14/2017 Status: F Source: [place] 10:20 AM [facility] REPOSITORY TYPE CODE TESTS RESULT OUT OF RANGE REFERENCE UNITS LAB L300.4150 11.7-14.9 SECONDS High PROTIME 27.9 LAB L300.4200 Normal INR 2.6 Performed By: #### L300.3900 #### [facility] [place], [address] PROTHROMBIN TIME W/INR Collected: 06/04/2017 Status: F Source: [place] 7:39 AM [facility] REPOSITORY TYPE CODE TESTS RESULT OUT OF RANGE REFERENCE UNITS LAB L300.4150 11.7-14.9 SECONDS High PROTIME 30.5 LAB L300.4200 Normal INR 2.9 Performed By: #### L300.3900 #### [facility] [address] [place], [address] PROTHROMBIN TIME W/INR Collected: 05/31/2017 Status: F Source: [place] 10:00 AM [facility] REPOSITORY TYPE CODE TESTS RESULT OUT OF REFERENCE UNITS RANGE LAB L300.4150 11.7-14.9 SECONDS High PROTIME 35.0 LAB L300.4200 High alert INR 3.7 Result Comment: CRITICAL VALUE VERIFIED. CALLED TO KOLTON WOMACK 05/31/17 1130 Nii Lind. RESULTS READ BACK BY SAME. Performed By: #### L300.3900 #### [facility] [address] [place], [address] PROTHROMBIN TIME W/INR Collected: 05/24/2017 Status: F Source: [place] 7:21 AM [facility] REPOSITORY TYPE CODE TESTS RESULT OUT OF REFERENCE UNITS RANGE LAB L300.4150 11.7-14.9 SECONDS High PROTIME 42.4 LAB L300.4200 High alert INR 4.7 Result Comment: CRITICAL VALUE VERIFIED. CALLED TO GEOVANNI AT [facility] INTERNAL [facility] 05/24/17 0956 Violeta Noble. RESULTS READ BACK BY SAME . Performed By: #### L300.3900 #### [facility] [place], [address] PROTHROMBIN TIME W/INR Collected: 05/17/2017 Status: F Source: [place] 12:27 PM [facility] REPOSITORY TYPE CODE TESTS RESULT OUT OF RANGE REFERENCE UNITS LAB L300.4150 11.7-14.9 SECONDS High PROTIME 20.9 LAB L300.4200 Normal INR 1.9 Performed By: #### L300.3900 #### [facility] [place], [address] PROTHROMBIN TIME W/INR Collected: 05/10/2017 Status: F Source: [place] 7:42 AM [facility] REPOSITORY TYPE CODE TESTS RESULT OUT OF REFERENCE UNITS RANGE LAB L300.4150 11.7-14.9 SECONDS High PROTIME 39.8 LAB L300.4200 High alert INR 4.3 Result Comment: CRITICAL VALUE VERIFIED. CALLED TO 05/10/17 0830 Josue Velazquez. RESULTS READ BACK BY . Performed By: #### L300.3900 #### [facility] [address], [address] ALLERGIES ALLERGIES DATE TYPE / CODE NAME / CODE REACTION SEVERITY SOURCE 11/21/2014 Drug No Known Unknown [place] [facility] Allergy/4160 Allergies/F00 [facility] 72020(SNOMED 3740891(RXNOR Repository CT) M) ENCOUNTERS ENCOUNTERS ADMIT/DISCHARGE ACCOUNT ADMITTING ENCOUNTER LOCATION SOURCE NUMBER CLASS 04/25/2018 [id number] Ambulatory [place] 0 [facility] ing:LAB Repository 04/21/2018 [id number] Ambulatory Building:[facility] [place] Practices Repository 04/18/2018 [id number] Ambulatory [place] 4 [facility] ing:LAB Repository 03/23/2018/ [id number] Ambulatory [place] 8 4 [facility] ing:LAB Repository 03/02/2018/ [id number] Ambulatory [place] 8 8 [facility] ing:LAB Repository 02/15/2018 [id number] Ambulatory [place] 6 [facility] ing:[facility] Repository 02/07/2018 [id number] Ambulatory [place] 5 [facility] ing:LAB Repository 02/01/2018/ [id number] Ambulatory [place] 8 9 [facility] ing:LAB Repository 01/14/2018 [id number] Ambulatory [place] 3 [facility] ing:LAB.FUTUR Repository E 12/23/2017 [id number] Ambulatory [place] 2 [facility] ing:OPBD Repository 12/17/2017/ [id number] Ambulatory [place] 8 8 [facility] ing:LAB Repository 11/15/2017/ [id number] Ambulatory [place] 8 2 [facility] ing:LAB Repository 10/28/2017/ [id number] Amb[place] 8 3 [facility] ing:LAB Repository 10/07/2017 [id number] Ambulatory [place] 5 [facility] ing:OPBI Repository 09/23/2017/ [id number] Amb[place] 8 6 [facility] ing:LAB Repository 09/08/2017 [id number] [place] 9 [facility] ing:LAB Repository 08/16/2017/ [id number] Ambulatory [place] 8 1 [facility] ing:LAB Repository 07/26/2017/ [id number] Ambulatory [place] 8 7 [facility] ing:LAB Repository 06/28/2017/ [id number] Ambulatory [place] 8 9 [facility] ing:LAB Repository 05/31/2017/ [id number] Ambulatory [place] 8 2 [facility] ing:LAB Repository PAYERS PAYERS ENCOUNTER GUARANTOR PAYER SUBSCRIBER SOURCE 04/25/2018 YAHAIRA R Primary YAHAIRA R [place] [id number] Insurance:MEDICARE NEPTUNEDOB: [facility] PART A BPolicy [id number] Number: Repository [address]Yam: (003) [id number] [phone] () Date:2018-04-25 04/25/2018 Secondary YAHAIRA R [place] Insurance:AARPPolicy NEPTUNEDOB: [facility] Number: [id number] [id number] Repository Date:6134-91-92[address], [place] [address]MM: 04/25/2018 Tertiary NOT GIVENUNK [place] Insurance:SELF PAY [facility] Number: Effective Repository Date:2018-04-25 04/21/2018 Yahaira R Primary Yahaira R OHIP Practices NeptuneDOB: Insurance:MedicarePol NeptuneDOB: Repository icy Number: [id number]Zywlvyhqb [place], [place] Date:8869-11-21Iuch AbdiVilas, [place] [address]Kgj: (774) Name:[facility] [address]Bey: [address]Jnzjs[place], [place] [phone] () (HP)Tel: [phone]: [phone] 04/21/2018 Secondary Yahaira R OHIP Practices Insurance:AARP/UHCPol NeptuneDOB: Repository icy Number: [id number] [place] Date:5803-38-63[place]rq[place], [place] Name:[address] [address]Avo: [address]17[address]Ricgjxv, [place] ~( [id number]: [phone] 04/18/2018 YAHAIRA R Primary YAHAIRA R [place] [id number] Insurance:MEDICARE NEPTUNEDOB: [facility] PART A [facility] [id number] Number: Repository [address]Wgt: [phone] [id number] [phone] () Date:2017-05-07 04/18/2018 Secondary YAHAIRA R [place] Insurance:AARPPolicy NEPTUNEDOB: Community Number: [id number] Hospital [id number] Repository Date:4390-91-55EF [address] [place] [address]ZE: 04/18/2018 Tertiary NOT GIVENUNK [place] Insurance:SELF PAY [facility] Number: Effective Repository Date:2018-04-04 03/23/2018 YAHAIRA R Primary YAHAIRA R [place] [id number] Insurance:MEDICARE NEPTUNEDOB: [facility] PART A [facility] [id number] Number: Repository [address]Bwo: [phone]) [id number] [phone] () Date:2017-05-07 03/23/2018 Secondary YAHAIRA R [place] Insurance:AARPPolicy NEPTUNEDOB: Community Number: [id number] Hospital [id number] Repository Date:8211-27-99Y[address]ZH [place] [address]RV: 03/23/2018 Tertiary NOT GIVENUNK [place] Insurance:SELF PAY [facility] Number: Effective Repository Date:2018-03-07 03/02/2018 YAHAIRA R Primary YAHAIRA R [place] [id number] Insurance:MEDICARE NEPTUNEDOB: Community MAN PART A [facility] [id number], [place] Number: Repository [address]Aba: [phone]) [id number] [phone] () Date:2017-05-07 03/02/2018 Secondary YAHAIRA R [place] Insurance:AARPPolicy NEPTUNEDOB: Community Number: [id number] Hospital [id number] Repository Date:2796-84-88FU [address]NNHK, [place] [address]AI: 03/02/2018 Tertiary NOT GIVENUNK [place] Insurance:SELF PAY [facility] Number: Effective Repository Date:2018-02-03 02/15/2018 YAHAIRA R Primary YAHAIRA R [place] [id number] Insurance:MEDICARE NEPTUNEDOB: Community MAN PART A [id number] [place] Number: Repository [address]Dfh: (016) [id number] [phone] () Date:2018-02-14 02/15/2018 Secondary YAHAIRA R [place] Insurance:AARPPolicy NEPTUNEDOB: Community Number: [id number] Hospital [id number] Repository Date:4846-81-29[address]VQHLD, [place] [address]ZX: 02/15/2018 Tertiary NOT GIVENUNK [place] Insurance:SELF PAY [facility] Hospital Number: Effective Repository Date:2018-02-14 02/07/2018 YAHAIRA R Primary YAHAIRA R [place] [id number] Insurance:MEDICARE NEPTUNEDOB: Community MAN PART A [facility] [id number] [place] Number: Repository [address]Usr: [phone]) [id number] [phone] () Date:2018-02-07 02/07/2018 Secondary YAHAIRA R [place] Insurance:AARPPolicy NEPTUNEDOB: Community Number: [id number] Hospital [id number] Repository Date:2620-62-71BP [address]ODJR, [place] [address]LQ: 02/07/2018 Tertiary NOT GIVENUNK [place] Insurance:SELF PAY [facility] Number: Effective Repository Date:2018-02-07 02/01/2018 Yahaira R Primary Yahaira R [place] [id number] Insurance:MEDICARE NeptuneDOB: Community Man PART A [facility] [id number] [place] Number: Repository [address]Roz: 330 [id number] [phone] () Date:2017-05-07 02/01/2018 Secondary Yahaira R [place] Insurance:AARPPolicy NeptuneDOB: Community Number: [id number] Hospital [id number] Repository Date:2059-53-37QF [facility] 561298ZZMLCCF, [place] [address]JU: 02/01/2018 Tertiary NOT GIVENUNK [place] Insurance:SELF PAY [facility] Number: Effective Repository Date:2018-01-04 01/14/2018 Yahaira R Primary Yahaira R [place] [id number] Insurance:MEDICARE NeptuneDOB: Community Man PART A [facility] [id number] [place] Number: Repository [address]Zul: 330 [id number] [phone] () Date:2017-12-21 01/14/2018 Secondary Yahaira R [place] Insurance:AARPPolicy NeptuneDOB: Community Number: [id number] Hospital [id number] Repository Date:0091-09-99IQ [address], [place] [address]BH: 01/14/2018 Tertiary NOT GIVENUNK [place] Insurance:SELF PAY [facility] Number: Effective Repository Date:2017-12-21 12/23/2017 Yahaira R Primary Yahaira R [place] [id number] Insurance:MEDICARE NeptuneDOB: Community Man PART A [facility] [id number] Number: Repository [address]Ybu: 330 [id number] [phone] () Date:2017-12-17 12/23/2017 Secondary Yahaira R [place] Insurance:AARPPolicy NeptuneDOB: Community Number: [id number] Hospital [id number] Repository Date:6257-95-37QV [facility] 783447TFRREYK, [place] [address]YN: 12/23/2017 Tertiary NOT GIVENUNK [place] Insurance:SELF PAY [facility] Number: Effective Repository Date:2017-12-17 12/17/2017 Yahaira R Primary Yahaira R [place] [id number] Insurance:MEDICARE NeptuneDOB: [facility] PART A [facility] [id number] [place] Number: Repository [address]Tlu: 330 [id number] [phone] () Date:2017-05-07 12/17/2017 Secondary Yahaira R [place] Insurance:AARPPolicy NeptuneDOB: Community Number: [id number] Hospital [id number] Repository Date:5889-39-02BK [address]KRIPTQF, [place] [address]DN: 12/17/2017 Tertiary NOT GIVENUNK [place] Insurance:SELF PAY [facility] Hospital Number: Effective Repository Date:2017-12-07 11/15/2017 Yahaira R Primary Yahaira R [place] [id number] Insurance:MEDICARE NeptuneDOB: Community Man PART A [facility] [id number] [place] Number: Repository [address]Pnr: 330 [id number] [phone] () Date:2017-05-07 11/15/2017 Secondary Yahaira R [place] Insurance:AARPPolicy NeptuneDOB: Community Number: [id number] Hospital [id number] Repository Date:3994-20-05GN [address]LKKREN, [place] [address]ZR: 11/15/2017 Tertiary NOT GIVENUNK [place] Insurance:SELF PAY [facility] Number: Effective Repository Date:2017-11-04 10/28/2017 Yahaira R Primary Yahaira R [place] [id number] Insurance:MEDICARE NeptuneDOB: Community Man PART A [facility] [id number] Number: Repository [address]Bza: 330 [id number] [phone] () Date:2017-05-07 10/28/2017 Secondary Yahaira R [place] Insurance:AARPPolicy NeptuneDOB: Community Number: [id number] Hospital [id number] Repository Date:0000-22-50FR [address]BYXJUDZ, [place] [address]OE: 10/28/2017 Tertiary NOT GIVENUNK [place] Insurance:SELF PAY [facility] Number: Effective Repository Date:2017-10-01 10/07/2017 Yahaira R Primary Yahaira R [place] [id number] Insurance:MEDICARE NeptuneDOB: Community Man PART A [facility] [id number] Number: Repository [address]Dzi: 330 [id number] [phone] () Date:2017-05-10 10/07/2017 Secondary Yahaira R [place] Insurance:AARPPolicy NeptuneDOB: Community Number: [id number] Hospital [id number] Repository Date:8517-84-65UR [address]APWZQUO, [place] [address]JV: 10/07/2017 Tertiary NOT GIVENUNK [place] Insurance:SELF PAY [facility] Number: Effective Repository Date:2017-05-10 2017 Yahaira R Primary Yahaira R [place] [id number] Insurance:MEDICARE NeptuneDOB: Community Man PART A [facility] [id number] [place] Number: Repository [address]Jui: 330 [id number] [phone] () Date:2017-05-07 2017 Secondary Yahaira R [place] Insurance:AARPPolicy NeptuneDOB: Community Number: [id number] Hospital [id number] Repository Date:0855-90-40OF [address]JKDIID, [place] [address]CF: 2017 Tertiary NOT GIVENUNK [place] Insurance:SELF PAY [facility] Number: Effective Repository Date:2017-09-02 09/08/2017 Yahaira R Primary Yahaira R [place] [id number] Insurance:MEDICARE NeptuneDOB: Community Man PART A [facility] [id number] Number: Repository [address]Obi: 330 [id number] [phone] () Date:2017-09-08 09/08/2017 Secondary Yahaira R [place] Insurance:AARPPolicy NeptuneDOB: Community Number: [id number] Hospital [id number] Repository Date:0512-50-94CD [address]QCTKOVW, [place] [address]AM: 09/08/2017 Tertiary NOT GIVENUNK [place] Insurance:SELF PAY [facility] Number: Effective Repository Date:2017-09-08 08/16/2017 Yahiara R Primary Yahaira R [place] [id number] Insurance:MEDICARE NeptuneDOB: Community Man PART A [facility] [id number] Number: Repository [address]Pca: [id number] [phone] Date:2017-05-07 () 08/16/2017 Secondary Yahaira R [place] Insurance:AARPPolicy NeptuneDOB: Community Number: [id number] Hospital [id number] Repository Date:9138-35-26MB [address]IM[place]VUM, [place] [address]GU: 08/16/2017 Tertiary NOT GIVENUNK [place] Insurance:SELF PAY [facility] Number: Effective Repository Date:2017-08-03 07/26/2017 Yahaira R Primary Yahaira R [place] [id number] Insurance:MEDICARE NeptuneDOB: Community Man PART A [address]06-21[facility] [place] Number: Repository [address]Fvv: [id number] [phone] Date:2017-05-07 () 07/26/2017 Secondary Yahaira R [place] Insurance:AARPPolicy NeptuneDOB: Community Number: [id number] [facility] [id number] Repository Date:4273-33-36YZ [facility] [address]OLU[place]U, [place] [address]LI: 07/26/2017 Tertiary NOT GIVENUNK [place] Insurance:SELF PAY [facility] Number: Effective Repository Date:2017-07-05 06/28/2017 Yahaira R Primary Yahaira R [place] [id number] Insurance:MEDICARE NeptuneDOB: Community Man PART A [facility] [id number] [place] Number: Repository [address]Rts: [id number] [phone] Date:2017-05-07 () 06/28/2017 Secondary Yahaira R [place] Insurance:AARPPolicy NeptuneDOB: Community Number: [id number] Hospital [id number] Repository Date:4340-74-92NW [facility] [address]41KURXGVF, [place] [address]UN: 06/28/2017 Tertiary NOT GIVENUNK [place] Insurance:SELF PAY [facility] Number: Effective Repository Date:2017-06-04 05/31/2017 Yahaira R Primary Yahaira R [place] [id number] Insurance:MEDICARE NeptuneDOB: Community Man PART A [address]06[address]21[facility] Number: Repository [address]Nwc: [id number] [phone] Date:2017-05-07 () 05/31/2017 Secondary Yahaira R [place] Insurance:AARPPolicy NeptuneDOB: Community Number: [id number] [facility] [id number] Repository Date:6284-96-79UQ [facility] [address]LEVSRIX, [place] [address]OB: 05/31/2017 Tertiary NOT GIVENUNK [place] Insurance:SELF PAY [facility] Number: Effective Repository Date:2017-05-07
== END 2018-03-23 11:27 | disposition home or self-care (01) ==
LOC: LAB 10:27
PROVIDERS: Family Provider Nurse Practitioner; PCP Nurse Practitioner; Referring Provider Nurse Practitioner; Visit Provider Nurse Practitioner
DX: Z86.718 Personal history of other venous thrombosis and embolism (principal)
CPT/HCPCS: 36415; 85610

== ENCOUNTER 2018-04-18 09:42 | Outpatient (RCR) | payer MEDICARE, OTHER, SELFPAY ==
[2018-04-18 10:21] LABS: Absolute Lymphocyte Count 1.55 X10^3/ul (0.83-4.51); Absolute Neutrophil Count 6.2 X10^3/uL (2.0-7.7); Basophil# 0.02 X10^3/uL; Basophil% 0.2 % (0-1); Eosinophil# 0.05 X10^3/uL; Eosinophils% 0.6 % (0-5); Hematocrit 39.5 % (37-47); Hemoglobin 13.4 g/dl (12.0-15.0); Lymphocyte # 1.55 X10^3/ul (4.0); Lymphocyte % 18.3 % (19-41); Mean Corp Hgb Conc 33.9 g/gl (32-36); Mean Corpuscular Hgb 32.6 pg (27.0-32.0); Mean Corpuscular Volume 96.1 fL (81-99); Mean Platelet Vol. 10.2 fl (6.2-12.0); Monocyte% 7.1 % (0-10); Neutrophil # 6.22 X10^3/uL (2.7-7.7); Neutrophil % 73.7 % (47-70); Platelet Count 183 K/mm3 (150-450); RBC Distribution Width CV 12.6 % (11.6-14.6); RBC Distribution Width SD 44.1 fl (35.1-43.9); Red Blood Count 4.11 M/mm3 (4.2-5.4); White Blood Count 8.5 K/mm3 (4.4-11.0)
[2018-04-18 10:24] LABS: POSITIVE COUNT NO; POSITIVE DIFFERENTIAL NO; POSITIVE MORPHOLOGY NO
[2018-04-18 10:29] LABS: International Normalized Ratio 2.2; Prothrombin Time (Protime)PT. 24.5 SECONDS (11.7-14.9)
== END 2018-04-18 10:00 | disposition home or self-care (01) ==
LOC: LAB 09:42
PROVIDERS: Family Provider Nurse Practitioner; PCP Nurse Practitioner; Referring Provider Nurse Practitioner; Visit Provider Nurse Practitioner
DX: Z86.718 Personal history of other venous thrombosis and embolism (principal); D72.819 Decreased white blood cell count, unspecified
CPT/HCPCS: 36415; 85025; 85610

== ENCOUNTER 2018-04-25 09:33 | Outpatient (RCR) | payer MEDICARE, OTHER, SELFPAY ==
[2018-04-25 11:44] LABS: International Normalized Ratio 2.8
--- OUTSIDE RECORDS SUMMARY | 2018-06-27 17:40 | XMS RPT_ITS | Continuity of Care Document ---
:1950 Author Organization [facility] Address [address] [facility] [address] [place] [address] Phone Care Team Providers Name Role Phone [...] in [address] Status: Active manager intermediate (current) use of anticoagulants (Renamed from [facility] current use of anticoagulant therapy) (Z79.01, V58.61) [...] Latif Start : 13-Sep-2017 Active Calcium 1200 3687-4367 MG-UNIT Oral Tablet Chewable daily (1357-7381 MG-UNIT) Active Cinnamon 500 MG Oral Capsule [...] Quantity: 30 {Tablet} Refills: 1 Ordered:17-Dec-2017 Johnnie SENIOR CREDIT ANALYST, Selam Taveras SENIOR CREDIT ANALYST, Selam Latif Start : 17-Dec-2017 Active [...] 500MG (Oral Tablet) 1 (one) Tablet bid y35hirk for 10 days Quantity: 20 {Tablet} Refills: [...] Refills: 0 Ordered:02-Jun-2017 Johnnie DAVIES, Selam Taveras SENIOR CREDIT ANALYST, Selam Latif Start : 02-Jun-2017 End [...] (M85.80, 733.90) Status: Inactive as of 11-Mar-2012 [place] eye (H10.029, 372.03) Status: Inactive as of [...] Status: Resolved as of 21-Oct-2012 Vaccine for hxutxwhszb-kxzgujc-tsiskrylr with poliomyelitis (Z23, V06.3) Status: Inactive as of 21-Oct-2012 Procedures Procedure Dates Details Appendectomy Completed D&C Completed Comments: [facility] Tonsillectomy Completed Tubal Ligation Completed Date Value Details 16-Feb-2018 Venous Duplex Lower Extremity Result: Comments: See Note; NOTES: [facility] Cardiovascular Services [address] [place] [address] Venous Duplex US, Unilateral 02/15/18 1350 MR#: [id number] Acct: [id number] Name: YAHAIRA ENG Rep #: [id number] : 1950 67 From: Tony Valentino MD [...] Tony Valentino MD CC: Selam Blair NP; PROPERTY MANAGEMENT SUPERVISOR-C Annie Mobley Date Dictated: 02/15/18 1350 Date Transcribed: 02/16/18812 Founder And Chief Executive Officer: Signed 23-Dec-2017 Dexa Bone Density Study Result: Comments: See Note; NOTES: [facility] Imaging Services [address] [place] [address] Dexa Bone Density Study MR#: [id number] Acct: [id number] Name: YAHAIRA BRYANT Rep #: [id number] : 1950 F 67 From: Cole Coronado MD PCP: Selam Blair NP Status: REG CLI Study: Dexa Bone Density Study Date of Exam: 12/23/17 Exam# [id number] Ordering Dr: Selam Blair STUDY: DUAL ENERGY [...] Cole Coronado MD at 8:50 EDT Tel [phone], Service support , CC: Selam Blair NP Founder And Chief Executive Officer: Signed 07-Oct-2017 SCREENING MAMM (CAD), BILAT Result: Comments: See Note; NOTES: [facility] Imaging Services [address] [place] [address] SCREENING MAMM (CAD), BILAT MR#: [id number] Acct: [id number] Name: YAHAIRA BRYANT Rep #: [id number] : 1950 F 67 From: Cole Coronado MD PCP: Selam Blair NP Status: REG CLI Study: SCREENING MAMM (CAD), BILAT Date of Exam: 10/07/17 Exam# [id number] Ordering Dr: Aliza Santana MD MAMMOGRAPHY - [...] delay biopsy of a clinically suspicious abnormality. [id number] Electronically Signed: Cole Coronado MD at 11:23 EDT Tel [phone], Service support , CC: Selam Blair NP; Aliza Santana MD Founder And Chief Executive Officer: Signed 23-Sep-2017 Downtime Report Result: Comments: See Note; NOTES: [facility] Medical Records Department [address] [place] [address] Downtime Report MR#: [id number] Acct: [id number] Name: YAHAIRA BRYANT R Rep #: [id number] : 1950 67 From: Jered Kumar PCP: Selam Blair NP Status: REG CLI This patient was seen during an EMR downtime September 06, 2017 - September 13, 2017. This patient may have a combination of p aper and electronic documentation or all paper documentation. All documentation is viewable within the e-chart portion of [facility] for each patient visit. 16-Dec-2016 Liver Result: Comments: See Note; NOTES: [facility] Imaging Services [address] [facility] [place] [address] Liver MR#: [id number] Acct: [id number] Name: YAHAIRA BRAYNT Rep #: [id number] : 1950 F 66 From: Jose Mcghee MD PCP: Selam Blair Status: REG CLI Study: Liver Date of Exam: 12/16/16 Exam# [id number] Ordering Dr: Selam Blair STUDY: ABDOMINAL ULTRASOUND [...] MD at 16:28 EDT , Service support [phone], CC: Selam Blair Founder And Chief Executive Officer: Signed 21-Dec-2014 Aorta Result: Comments: See Note; NOTES: [facility] Imaging Services [address] [place] [address] Ultrasound Report MR#: [id number] Acct: [id number] Name: YAHAIRA BRYANT Rep #: [id number] : 1950 F 64 From: Cole Coronado MD PCP: Helen Barnes DO Status: REG CLI Study: Aorta Date of Exam: 12/21/14 Exam# [id number] Ordering Dr: Helen Barnes DO PROCEDURES: ULTRASOUN [...] Cole Coronado MD at 9:45 EDT Tel [phone], Service support [phone], CC: Helen Barnes DO Founder And Chief Executive Officer: Signed 12-Dec-2014 Bilat Scrn Digital AND CAD Result: Comments: See Note; NOTES: [facility] Imaging Services [address] [place] [address] Breast Imaging Report MR#: [id number] Acct: [id number] Name: YAHAIRA BRYANT Rep # : [id number] : 1950 F 64 From: Gabino South MD PCP: Helen Barnes DO Status: REG CLI Study: Bilat Scrn Digital AND CAD Date of Exam: 12/12/14 Exam# [id number] Ordering Dr: Helen Barnes DO M AMMOGRAPHY [...] at 14:51 EDT Tel , Service support [phone], CC: Helen Barnes DO Founder And Chief Executive Officer: Signed 12-Dec-2014 Bilat Scrn Digital AND CAD Result: Comments: See Note; NOTES: [facility] Imaging Services [address] [place] [address] Breast Imaging Report MR#: [id number] Acct: [id number] Name: YAHAIRA BRYANT Rep # : [id number] : 1950 F 64 From: Gabino South MD PCP: Helen Barnes DO Status: REG CLI Study: Bilat Scrn Digital AND CAD Date of Exam: 12/12/14 Exam# [id number] Ordering Dr: Helen Barnes DO A DDENDUM by Cole Coronado MD on 12/17/14 at 1003 ADDENDUM This is an addendum report for BI -RADS category. BI-RADS category 2. Electronically Signed: Cole Coronado MD at 10:03 EDT Tel [phone], Service support [phone], 12/17/14 1003 D ate cc: Helen Barnes [...] at 14:51 EDT Tel , Service support [phone], CC: Helen Barnes DO Founder And Chief Executive Officer: Signed 03-Dec-2014 Operative Report Result: Comments: See Note; NOTES: [facility] Medical Records Department [address] [place] [address] Operative Report MR#: [id number] Acct: [id number] Name: YAHAIRA BRYANT Rep #: [id number] : 1950 64 From: Aliza Santana MD PCP: Helen Barnes DO Status: [facility] DATE OF SERVICE: 11/26/2014 DATE OF SERVICE: [...] time. Aliza Santana MD T: NTS JOB: [id number] 12/03/14 1321 <Electronically signed by An jamison Santana MD> Date Aliza Santana MD Cosigner Signature (If Indicated): Date CC: Aleyda Santana MD; Helen Barnes DO Date Dictated: 11/29/14918 Date Transcribed: 11/29/14918 Founder And Chief Executive Officer: Signed 26-Nov-2014 Discharge Instruction Result: Comments: See Note; NOTES: [facility] Medical Records Department [address] [place] [address] Instructions for Home/Discharge Instructions 11/26/14 1200 MR#: [id number] ct: [id number] Name: YAHAIRA BRYANT Rep #: [id number] : 1950 64 From: Aliza Santana MD PCP: Helen Barnes DO Status: REG [facility] Discharge Diet: No Restrictions Discharge Activity: Return [...] Result: Comments: See Note; NOTES: [facility] Medical Records Department [address] [facility] [place] [address] Operative Report 11/26/14 1159 MR#: [id number] Acct: [id number] Name: YAHAIRA DEJESUS Rep #: [id number] : 1950 64 From: Aliza Santana MD PCP: Helen Barnes DO Status: REG [facility] Y Location: [place] [address] Operative Report (Blank) Date of Procedure: 11/26/14 [...] MD; Helen Barnes DO Signed 05-Nov-2014 Spirometry (55674) Comments: good effort aand curve mild obstruction Result: 06-Jun-2014 Transvaginal Non- Result: Comments: See Note; NOTES: [facility] Imaging Services [address] [place] [address] Ultrasound Report MR#: [id number] Acct: [id number] Name: YAHAIRA BRYANT Rep #: [id number] : 1950 F 63 From: Telly Cruz DO PCP: Helen Barnes DO Status: REG CLI Study: Transvaginal Non- Date of Exam: 06/06/14 Exam# [id number] Ordering Dr: Izzy Becerra STUDY: ULTRASOUND TRANSVAGINAL [...] endometrial canal. E lectronically Signed: Jean Paul Flnyn DO at 13:34 EST , Service support [phone], CC: Helen Barnes DO; Izzy Becerra MD Founder And Chief Executive Officer: Signed 06-Jun-2014 Pelvic (Non ) Result: Comments: See Note; NOTES: [facility] Imaging Services [address] [place] [address] Ultrasound Report MR#: [id number] Acct: [id number] Name: YAHAIRA BRYANT Rep #: [id number] : 1950 F 63 From: Telly Cruz DO PCP: Helen Barnes DO Status: REG CLI Study: Pelvic (Non ) Date of Exam: 06/06/14 Exam# [id number] Ordering Dr: Izzy Becerra MD STUDY: ULTRASOUND [...] DO at 13:34 EST , Service support [phone], CC: Helen Barnes DO; Izzy Becerra MD Founder And Chief Executive Officer: Signed 11-Oct-2013 Bilat Scrn Digital & CAD Result: Comments: See Note; NOTES: [facility] Imaging Services [address] [place] [address] Breast Imaging Report MR#: [id number] Acct: [id number] Name: YAHAIRA BRYANT Rep #: [id number] : 1950 F 63 From: Bradly Lr MD PCP: Helen Barnes DO Status: REG CLI Exam# [id number] Ordering Dr: Helen Barnes DO MAMMOGRAPHY - [...] at 10:37 EDT , Servic e support [phone], CC: Helen Barnes DO Founder And Chief Executive Officer: Signed Family History Unknown Family Member Name [...] 1.56 m2 Results Date Description Value Details :54 CBC W/Diff, Automated Comments: [facility] [address] [place], [place], [id number] Absolute Lymph 1.55 {X10_3/ul} (Normal) Range: 0.83-4.51 Absolute Neut 6.2 {X10_3/uL} (Normal) Range: 2.0-7.7 IM GRAN % 0.100 % (Normal) Range: 0.0-0.9 Comments: IG% - Immature Granulocytes (promyelocytes, myelocytes andmetamyelocytes) > 1% indicates that a LEFT SHIFT is Present. BASO% 0.2 % (Normal) Range: 0-1 EO% 0.6 % (Normal) Range: 0-5 MONO% 7.1 % (Normal) Range: 0-10 LY% 18.3 % (Abnormal) Range: 19-41 NEUT% 73.7 % (Abnormal) Range: 47-70 MPV 10.2 fL (Normal) Range: 6.2-12.0 PLT 183 K/mm3 (Normal) Range: 150-450 RDW SD 44.1 fL (Abnormal) Range: 35.1-43.9 RDW CV 12.6 % (Normal) Range: 11.6-14.6 MCHC 33.9 {g/gl} (Normal) Range: 32-36 MCH 32.6 pg (Abnormal) Range: 27.0-32.0 MCV 96.1 fL (Normal) Range: 81-99 HCT 39.5 % (Normal) Range: 37-47 HGB 13.4 g/dL (Normal) Range: 12.0-15.0 RBC 4.11 {M/mm3} (Abnormal) Range: 4.2-5.4 WBC 8.5 K/mm3 (Normal) Range: 4.4-11.0 51-Ply-68621:54 Prothrombin Time w/INR Comments: [facility] [address] [address] [place], [place], [id number] INR 2.2 (Normal) PROTIME 24.5 s (Abnormal) Range: 11.7-14.9 42-Wkk-179546:33 Prothrombin Time w/INR Comments: [facility] [address] [place], [place], [phone] INR 2.9 (Normal) PROTIME 30.5 s (Abnormal) Range: 11.7-14.9 52-Kcv-936604:34 Prothrombin Time w/INR Comments: [facility] [address] [place], [place], [phone](004) INR 2.7 (Normal) PROTIME 29.2 s (Abnormal) Range: 11.7-14.9 :41 Prothrombin Time w/INR Comments: [facility] [address] [place], [address] INR 3.0 (Normal) PROTIME 31.4 s (Abnormal) Range: 11.7-14.9 5-Tdu-230232:17 ANTINUCLEAR ANTIBODIES DIRECT Comments: [facility] (refer to report for specific site)refer to report for address and phone number YURIY-DIRECT Negative (Normal) Comments: Performed at: [facility] [employer] [id number] Director: Jairo Saers PhD, Phone: [phone] Protein Electro.Ur-Random Comments: [facility] (refer to report for specific site)refer to report for address and phone number NOTE Comment (Normal) Comments: Protein electrophoresis scan will follow via computer,mail, or vp marketing delivery.Performed at: [facility] [place] [id number] Director: Jairo Sears PhD, Phone: [phone] M-SPIKE,U % (Normal) Comments: NOT BSERVED GAMMA GLOB,U 15.5 % (Normal) BETA GLOB,U 33.2 % (Normal) FVCIP-1-ACAX,U 9.5 % (Normal) OICAG-3-BYMH,U 2.3 % (Normal) ALBUMIN,UR 39.4 % (Normal) PROTEIN,UR 8.3 mg/dL (Normal) :17 Protein Electroph, S Comments: [facility] (refer to report for specific site)refer to report for address and phone number NOTE: Comment (Normal) Comments: The SPE pattern appears essentially unremarkable. Evidenceof monoclonal protein is not apparent.Performed at: [facility] [place] [id number] Director: Jairo Sears PhD, Phone: [phone] INTERPRETATION Comment (Normal) Comments: Protein electrophoresis scan will follow via computer,mail, or vp marketing delivery. A/G RATIO 1.6 (Normal) Range: 0.7-1.7 [...] Range: 6.0-8.5 :18 Prothrombin Time w/INR Comments: [facility] [address] [place], [place], [phone] INR 2.7 (Normal) PROTIME 28.9 s (Abnormal) Range: 11.7-14.9 :58 Bilirubin, Direct Comments: [facility] [address] [place], [place], [id number] D BILI 0.18 mg/dL (Normal) Range: 0.00-0.30 :58 CBC W/Diff, Automated Comments: [facility] [address] [place], [place], [address] Absolute Lymph 1.49 {X10_3/ul} (Normal) Range: 0.83-4.51 [...] 4.2-5.4 WBC 3.3 K/mm3 (Abnormal) Range: 4.4-11.0 58-Plk-65240:58 Total Bilirubin Comments: [facility] [address] [place], [place], [address] T BILI 0.80 mg/dL (Normal) Range: 0.20-1.00 8-Mrf-631517:14 Prothrombin Time w/INR Comments: [facility] [address] [place], [place], [address] INR 2.6 (Normal) PROTIME 27.6 s (Abnormal) Range: 11.7-14.9 61-Ltj-134735:01 CBC W/Diff, Automated Comments: [facility] [address] [place], [place], [address] Absolute Lymph 1.26 {X10_3/ul} (Normal) Range: 0.83-4.51 [...] 4.2-5.4 WBC 3.3 K/mm3 (Abnormal) Range: 4.4-11.0 55-Pkx-767640:01 Comprehensive Metabolic Profil Comments: [facility] [address] [place], [place], [address] GAP 9 (Normal) Range: 5-15 CO2 28.0 [...] Comments: Please note revised GLUCOSE reference range feybcgewp61/02/2018. 23-Xwy-941529:15 Prothrombin Time w/INR Comments: [facility] [address] [place], [address] INR 3.0 (Normal) PROTIME 31.3 s (Abnormal) Range: 11.7-14.9 :26 Prothrombin Time w/INR Comments: [facility] [address] [place], [address] INR 2.8 (Normal) PROTIME 29.3 s (Abnormal) Range: 11.7-14.9 66-Fgi-055183:50 Prothrombin Time w/INR Comments: [facility] [address] [place], [address] INR 2.7 (Normal) PROTIME 28.7 s (Abnormal) Range: 11.7-14.9 :35 Prothrombin Time w/INR Comments: [facility] [address] [place], [address] INR 2.9 (Normal) PROTIME 30.2 s (Abnormal) Range: 11.7-14.9 :44 Prothrombin Time w/INR Comments: [facility] [address] [place], [address] INR 2.9 (Normal) PROTIME 30.1 s (Abnormal) Range: 11.7-14.9 :55 Prothrombin Time w/INR Comments: [facility] [address] [place], [address] INR 2.8 (Normal) PROTIME 29.4 s (Abnormal) Range: 11.7-14.9 :10 Prothrombin Time w/INR Comments: [facility] [address] [place], [address] INR 2.4 (Normal) PROTIME 26.2 s (Abnormal) Range: 11.7-14.9 :09 Prothrombin Time w/INR Comments: [place] [address] [place], [address] INR 1.1 (Normal) PROTIME 14.0 s (Normal) Range: 11.7-14.9 :29 Prothrombin Time w/INR Comments: RESULT(S) PREVIOUSLY REPORTED ON MANUAL REQUISITION DURINGDOWNTIME.[facility] [address] [place], [address] INR 1.3 (Normal) PROTIME 16.4 s (Abnormal) Range: 11.7-14.9 :30 Prothrombin Time w/INR Comments: [place] [address] [place], [address] INR 2.0 (Normal) PROTIME 22.9 s (Abnormal) Range: 11.7-14.9 :01 Prothrombin Time w/INR Comments: [facility] [address] [place], [address] INR 1.5 (Normal) PROTIME 18.0 s (Abnormal) Range: 11.7-14.9 :46 Prothrombin Time w/INR Comments: [place] [address] [place], [address] INR 1.9 (Normal) PROTIME 22.2 s (Abnormal) Range: 11.7-14.9 74-Smt-919331:25 Prothrombin Time w/INR Comments: [facility] [address] [place], [place], [phone] INR 1.9 (Normal) PROTIME 22.0 s (Abnormal) Range: 11.7-14.9 :59 Prothrombin Time w/INR Comments: [facility] [address] [place], [address] INR 2.0 (Normal) PROTIME 22.8 s (Abnormal) Range: 11.7-14.9 :58 Prothrombin Time w/INR Comments: [facility] [address] [place], [address] INR 1.8 (Normal) PROTIME 20.7 s (Abnormal) Range: 11.7-14.9 99-Pfq-046499:31 Prothrombin Time w/INR Comments: [facility] [address] [place], [place], [address]) INR 1.7 (Normal) PROTIME 19.9 s (Abnormal) Range: 11.7-14.9 14-Bkd-271523:20 Prothrombin Time w/INR Comments: [facility] [address] [place], [address] INR 2.6 (Normal) PROTIME 27.9 s (Abnormal) Range: 11.7-14.9 :39 Prothrombin Time w/INR Comments: [address] [place], [place], [phone] INR 2.9 (Normal) PROTIME 30.5 s (Abnormal) Range: 11.7-14.9 78-Lzu-345975:03 Rapid Flu (98446 x 2) Influenza A Ag neg (Normal) 16-Ybh-309681:00 Prothrombin Time w/INR Comments: [facility] [address] [place], [address] ; See pt message INR 3.7 (Abnormal) Comments: CRITICAL VALUE VERIFIED. CALLED TO KOL[place] 05/31/17 1130 Nii BarajasRESULTS READ BACK BY SAME. PROTIME 35.0 s (Abnormal) Range: 11.7-14.9 :21 Prothrombin Time w/INR Comments: [facility] [address] [place], [address] INR 4.7 (Abnormal) Comments: CRITICAL VALUE VERIFIED. CALLED TO GE[facility]NI AT [facility]05/24/17 0956 Violeta Aide.RESULTS READ BACK BY DAVID . PROTIME 42.4 s (Abnormal) Range: 11.7-14.9 56-Zwl-804819:27 Prothrombin Time w/INR Comments: [facility] [address] [place], [address] INR 1.9 (Normal) PROTIME 20.9 s (Abnormal) Range: 11.7-14.9 :42 Prothrombin Time w/INR Comments: [facility] [address] [place], [address] INR 4.3 (Abnormal) Comments: CRITICAL VALUE VERIFIED. CALLED TO 05/10/17 0830 Josue Velazquez.RESULTS READ BACK BY . PROTIME 39.8 s (Abnormal) Range: 11.7-14.9 :18 Prothrombin Time w/INR Comments: [facility] [address] [place], [address] INR 2.4 (Normal) PROTIME 24.8 s (Abnormal) Range: 11.7-14.9 :18 Prothrombin Time w/INR Comments: [facility] [address] [place], [address] INR 2.4 (Normal) PROTIME 25.2 s (Abnormal) Range: 11.7-14.9 22-Vpf-404206:00 Prothrombin Time w/INR Comments: [facility] [address] [place], [address] INR 2.5 (Normal) PROTIME 25.8 s (Abnormal) Range: 11.7-14.9 :32 Prothrombin Time w/INR Comments: [facility] [address] [place], [address] INR 2.1 (Normal) PROTIME 22.7 s (Abnormal) Range: 11.7-14.9 :23 Prothrombin Time w/INR Comments: [facility] [address] [place], [address] INR 2.3 (Normal) PROTIME 24.6 s (Abnormal) Range: 11.7-14.9 :14 Prothrombin Time w/INR Comments: [facility] [address] [place], [address] INR 2.0 (Normal) PROTIME 21.9 s (Abnormal) Range: 11.7-14.9 :18 Prothrombin Time w/INR Comments: [facility] [address] [place], [address] INR 2.5 (Normal) PROTIME 25.6 s (Abnormal) Range: 11.7-14.9 :39 Prothrombin Time w/INR Comments: [facility] [address] [place], [address] INR 2.1 (Normal) PROTIME 22.7 s (Abnormal) Range: 11.7-14.9 :40 Prothrombin Time w/INR Comments: [facility] [address] [place], [address] INR 2.6 (Normal) PROTIME 26.8 s (Abnormal) Range: 11.7-14.9 :40 Prothrombin Time w/INR Comments: [facility] [address] [place], [address] INR 2.2 (Normal) PROTIME 23.8 s (Abnormal) Range: 11.7-14.9 3-Wuj-738801:21 Prothrombin Time w/INR Comments: [facility] [address] [place], [address] INR 1.8 (Normal) PROTIME 20.1 s (Abnormal) Range: 11.7-14.9 :30 Prothrombin Time w/INR Comments: [facility] [address] [place], [address] INR 3.0 (Normal) PROTIME 30.2 s (Abnormal) Range: 11.7-14.9 :45 Prothrombin Time w/INR Comments: [facility] [address] [place], [address] INR 2.9 (Normal) PROTIME 29.1 s (Abnormal) Range: 11.7-14.9 :52 Prothrombin Time w/INR Comments: [facility] [address] [place], [address] INR 1.4 (Normal) PROTIME 17.0 s (Abnormal) Range: 11.7-14.9 :27 Prothrombin Time w/INR Comments: [facility] [address] [place], [address] INR 2.0 (Normal) PROTIME 21.7 s (Abnormal) Range: 11.7-14.9 :21 Prothrombin Time w/INR Comments: [facility] [address] [place], [address] INR 2.3 (Normal) PROTIME 24.1 s (Abnormal) Range: 11.7-14.9 :43 Prothrombin Time w/INR Comments: [facility] [address] [place], [address] INR 2.9 (Normal) PROTIME 29.1 s (Abnormal) Range: 11.7-14.9 :47 Prothrombin Time w/INR Comments: [facility] [address] [place], [address] INR 2.3 (Normal) PROTIME 24.0 s (Abnormal) Range: 11.7-14.9 :25 CBC W/Diff, Automated Comments: [facility] [address] [place], [address] ; see other message Absolute Lymph [...] Range: 4.4-11.0 :25 Comprehensive Metabolic Profil Comments: [facility] [address] [place], [place], [address] GAP 3 (Abnormal) Range: 5-15 CO2 28.0 [...] Range: 70-110 :25 Prothrombin Time w/INR Comments: [facility] [address] [place], [address] INR 3.5 (Abnormal) Comments: CRITICAL VALUE VERIFIED. CALLED TO PATRICE Longoria07/07/16 [facility] Radha Calderon.RESULTS READ BACK BY SAME . PROTIME 33.9 s (Abnormal) Range: 11.7-14.9 :25 Thyroid Stim Hormone (TSH) Comments: [facility] [address] [place], [address] TSH 3.25 {uIU/mL} (Normal) Range: 0.358-3.74 :47 Prothrombin Time w/INR Comments: [facility] [address] [place], [address] INR 2.6 (Normal) Comments: ADDENDA: handled by Dr. Phillips PROTIME 27.5 s (Abnormal) Range: 11.7-14.9 :32 Prothrombin Time w/INR Comments: [facility] [address] [place], [address] INR 2.3 (Normal) PROTIME 25.5 s (Abnormal) Range: 11.7-14.9 :15 Prothrombin Time w/INR Comments: [facility] [id number] [place], [address] INR 2.6 (Normal) PROTIME 27.7 s (Abnormal) Range: 11.7-14.9 :29 Prothrombin Time w/INR Comments: [facility] [id number] [place], [address] INR 1.3 (Normal) PROTIME 16.7 s (Abnormal) Range: 11.7-14.9 :19 Prothrombin Time w/INR Comments: [facility] [id number] [place], [address] INR 2.1 (Normal) PROTIME 23.3 s (Abnormal) Range: 11.7-14.9 :14 Prothrombin Time w/INR Comments: [facility] [id number] [place], [address] INR 2.0 (Normal) PROTIME 22.5 s (Abnormal) Range: 11.7-14.9 :21 Prothrombin Time w/INR Comments: [facility] [address] [place], [address] INR 2.7 (Normal) PROTIME 28.5 s (Abnormal) Range: 11.7-14.9 :30 Prothrombin Time w/INR Comments: [facility] [address] [place], [address] INR 2.4 (Normal) PROTIME 25.9 s (Abnormal) Range: 11.7-14.9 :41 Prothrombin Time w/INR Comments: [place] [address] [place], [address] INR 2.5 (Normal) PROTIME 26.9 s (Abnormal) Range: 11.7-14.9 :09 Prothrombin Time w/INR Comments: [place] [address] [place] [place], [address] INR 3.4 (Normal) PROTIME 34.4 s (Abnormal) Range: 11.7-14.9 :11 Prothrombin Time w/INR Comments: [place] [address] [place], [address] INR 2.5 (Normal) PROTIME 26.6 s (Abnormal) Range: 11.7-14.9 :33 Prothrombin Time w/INR Comments: [place] [address] [place], [address] INR 1.5 (Normal) PROTIME 18.1 s (Abnormal) Range: 11.7-14.9 :12 Prothrombin Time w/INR Comments: [place] [address] [place], [address] INR 1.1 (Normal) PROTIME 14.4 s (Normal) Range: 11.7-14.9 :51 Prothrombin Time w/INR Comments: [place] [address] [place], [address] INR 3.6 (Abnormal) Comments: CRITICAL VALUE REPEATED AND VERIFIED. CALLED TO Maycol DAVISON02/25/15 1001 Elsie Longoria.RESULTS READ BACK BY MARGUERITE . PROTIME 35.3 s (Abnormal) Range: 11.7-14.9 :23 Prothrombin Time w/INR Comments: [place] [address] [place], [address] INR 3.3 (Normal) PROTIME 33.3 s (Abnormal) Range: 11.7-14.9 :13 Prothrombin Time w/INR Comments: [facility] [address] [place], [address] INR 2.4 (Normal) PROTIME 26.5 s (Abnormal) Range: 11.7-14.9 :32 Prothrombin Time w/INR Comments: [address] [place], [address] INR 1.4 (Normal) PROTIME 17.8 s (Abnormal) Range: 11.7-14.9 :09 Prothrombin Time w/INR Comments: [address] [place], [address] INR 1.2 (Normal) PROTIME 15.9 s (Abnormal) Range: 11.7-14.9 :12 Prothrombin Time w/INR Comments: [address] [place], [address] INR 2.4 (Normal) PROTIME 26.4 s (Abnormal) Range: 11.7-14.9 :20 Prothrombin Time w/INR Comments: [address] [place], [address] INR 2.2 (Normal) PROTIME 24.5 s (Abnormal) Range: 11.7-14.9 :11 Prothrombin Time w/INR Comments: Test performed at:[place] [address] [facility] [place] [address] INR 2.2 (Normal) PROTIME 24.1 s (Abnormal) Range: 11.7-14.9 :29 Prothrombin Time w/INR Comments: Test performed at:[facility] [address] [place] [address] INR 3.7 (Abnormal) Comments: CRITICAL VALUE REPEATED AND VERIFIED. CALLED TO KIKE WOMACK12/21/14 Frida Kumar.RESULTS READ BACK BY SAME . PROTIME 36.5 s (Abnormal) Range: 11.7-14.9 :25 Prothrombin Time w/INR Comments: Test performed at:[facility] [address] [place] [address] INR 2.5 (Normal) PROTIME 27.1 s (Abnormal) Range: 11.7-14.9 :23 Miscellaneous Lab Procedure Comments: Comments: [id number] PTH PLUS CALCIUM LAV AND RED RFTest(s) Ordered: [id number] PTH PLUS CALCIUM LAV AND RED RFTest performed at:[facility] [address] [place] [address] [facility] Comments: TEST RESULT LIMITSCa+PTH Intact Calcium, Serum [...] - 65 < 8.6 TESTING PERFORMED AT [facility]. ORIGINAL REPORT ON FILE IN LAB CONTAINS AD DITIONAL TEST SITE INFORMATION. :23 Prothrombin Time w/INR Comments: Test performed at:[facility] [address] [place] [id number] INR 4.0 (Abnormal) Comments: CRITICAL VALUE REPEATED AND VERIFIED. CALLED TO BPJQNG82/11/15 0933 Fletcher Foote.RESULTS READ BACK BY SAME . PROTIME 38.3 s (Abnormal) Range: 11.7-14.9 :23 Vitamin D 1,25-Dihydroxy Comments: Test performed at:[facility] [address] [place] [address] VITD 1,25 86978 55.5 pg/mL (Normal) Range: 19.9-79.3 Comments: Performed at: [address] [id number] Director: Juan Ontiveros MD, Phone: [phone] :23 Vitamin D,25 Hydroxy Comments: Test performed at:[facility] [address] [place] [address] Vitamin D 25-OH 70.3 ng/mL (Normal) Comments: Vitamin D 25(OH) Status Range Deficiency <20 ng/mL (50nmol/L) Insuffciency 20 - 30 ng/mL (50 - 75 nmol/L) Sufficiency 30 - 100 ng/mL (75 - 250 nmol/L) Toxicity >100 ng/mL (>250 nmol/L) :04 Prothrombin Time w/INR Comments: Test performed at:[facility] [address] [facility] [place] [address] INR 2.1 (Normal) PROTIME 23.5 s (Abnormal) Range: 11.7-14.9 :12 Prothrombin Time w/INR Comments: Test performed at:[facility] [address] [place] [address] INR 1.6 (Normal) PROTIME 18.9 s (Abnormal) Range: 11.7-14.9 :10 Prothrombin Time w/INR Comments: Test performed at:[facility] [address] [place], [place] [id number] INR 1.1 (Normal) PROTIME 14.1 s (Normal) Range: 11.7-14.9 [id number]-[id number]: ENDOMETRIAL BX/CURETTINGS See Note (Normal) Comments: Test performed at:[facility] [address] [place] [address] 49 Comments: Patient: YAHAIRA BRYANT : 1950 (64/F) Acct Num: [id number] Phys: Aliza Santana MD Unit Num: [id number] Loc: [facility] Specimen: [id number] Received: 11/26/14 - 1217 Spec Type: EN [...] cassette. / NICOLÁS:papito 11/26/14 TC: 5 CPT: 69457 HEADER OPERATION: Hysteroscopy, diagnostic, D AND C PRE-OP DIAGNOSIS: Postmenopausal bleeding TISSUE SUBMITTED: Endometrial curettings MICROSCOPIC DESCRIPTION Slides are reviewed. MICROSCOPIC DIAGNOSIS Endometrial curettings: Scant strips of benign endometrial epithelium and superficial fragment of benign endometrial tissue, consistent with atrophic endometri um. Fragments of benign endocervical epithelium. SJ:papito 11/27/14 Signed Jeffy Suazo 11/27/14 <signature on file> [id number]-Kry-[id number]:39 INR Fingerstick Comments: Test performed at:[facility] [address] [facility] [place] [address] INR ISTAT 1.10 (Normal) Comments: Critical Value > 3.5; ADDENDA: this is for pre-op, will resume tomorrow and recheck it in 1 week. [id number]-Mac-[id number]:39 Prothrombin Time Fingerstick Comments: Test performed at:[facility] [address] [place] [address] PROTIME ISTAT 13.2 {SEC} (Normal) Range: 11.9-14.4 Comments: Reference Range 11.9 - 14.4 09-Mmk-272061:41 Partial Thromboplast Time Comments: Test performed at:[facility] [address] [place] [address] PTT 40.9 s (Abnormal) Range: 24.1-36.2 13-Lmc-285105:41 Prothrombin Time w/INR Comments: Test performed at:[facility] [address] [place] [address] INR 2.6 (Normal) PROTIME 27.4 s (Abnormal) Range: 11.7-14.9 71-Wnz-712179:41 Type AND Screen Comments: Surgery Date: 11/26/14Hx of Preganancy in last 3 Months NoEver experience any problems with transfusion(s)? NHx of Transfusion in last 3 Months NReason for Type AND Screen/Red Cells: SURGERYSURGI ADELSO PROCEDURE: .Test performed at:[facility] [address] [place] [address] Antibody Screen NEGATIVE (Normal) BLOOD TYPE GEL A POSITIVE (Normal) :09 CBC W/Diff, Automated Comments: Test performed at:[facility] [address] [place] [address] Absolute Lymph 2.07 {X10_3/ul} (Normal) [...] 4.2-5.4 WBC 3.9 K/mm3 (Abnormal) Range: 4.4-11.0 16-Bey-75787:09 Comprehensive Metabolic Profil Comments: Test performed at:[facility] [address] [place], [place] [address] GAP 6 (Normal) Range: 5-15 CO2 29.0 [...] Comments: Please note revised CREATININE reference range pqtnrycrq49/22/2015. BUN 19 mg/dL (Abnormal) Range: 7-18 GLU 75 mg/dL (Normal) Range: 70-110 :09 Prothrombin Time w/INR Comments: Test performed at:[facility] [address] [place] [address] INR 2.4 (Normal) PROTIME 25.8 s (Abnormal) Range: 11.7-14.9 :13 Prothrombin Time w/INR Comments: Test performed at:[facility] [address] [place] [address] INR 1.8 (Normal) PROTIME 21.2 s (Abnormal) Range: 11.7-14.9 :06 Prothrombin Time w/INR Comments: Test performed at:[facility] [address] [place] [address] INR 2.2 (Normal) PROTIME 24.4 s (Abnormal) Range: 11.7-14.9 :50 Prothrombin Time w/INR Comments: Test performed at:[facility] [address] [place] [address] INR 1.7 (Normal) PROTIME 20.3 s (Abnormal) Range: 11.7-14.9 29-Ypy-120530:16 Estrogen, Total, Serum Comments: Comments: TSHHas Patient had Radioactive Injection for X-ray?: NTest performed at:[facility] [address] [place] [address] ESTROGEN 4549 54 pg/mL (Normal) Comments: Prepubertal <40 Female Cycle: 1-10 Days 61 - 394 11-20 Days 122 - 437 21-30 Days 156 - 350 Post-Menopausal <40 HMG Treatment for Ovulation Induction: 400 - 800Performed at: [facility] [id number] Director: Juan Ontiveros MD, Phone: [phone] 15-Hql-002628:16 Free T3 Comments: Comments: TSHTest performed at:[facility] [address] [place] [address] FREE T3 2.6 pg/mL (Normal) Range: 2.18-3.98 68-Jtz-554781:16 Hemoglobin A1c Comments: Test performed at:[facility] [address] [facility] [place] [address] HGB A1C 5.0 % (Normal) Range: 4.2-6.3 41-Ncg-838961:16 Progesterone Level Comments: Test performed at:[facility] [address] [place] [address] Progesterone 0.48 ng/mL (Normal) Comments: Progesterone Reference Table: UNITS Female: Follicular 0.15 - 1.40 ng/mL Luteal 3.34 - 25.56 ng/mL Mid-luteal 4.44 - 28.03 ng/mL Postmenopausal 0.0 - 0.73 ng/mL : 1st Trimester 11.22 - 90.00 ng /mL 2nd Trimester 25.55 - 89.40 ng/mL 3rd Trimester 48.40 -422.50 ng/mL 58-Mxx-180493:16 T4 Free Direct Comments: Comments: TSHTest performed at:[facility] [address] [facility] [place] [address] T4 FREE DIRECT 1.16 ng/dL (Normal) Range: 0.76-1.46 47-Lrp-057676:16 Testosterone, Serum Total Comments: Test performed at:[facility] Itgnmqszpx[address]83 [facility] [place] [address] ; ordered by Dr. Santana Testosterone 35 ng/dL (Normal) Range: 14-76 09-Xcs-013509:16 Thyroid Stim Hormone (TSH) Comments: Comments: TSHTest performed at:[facility] F[address] [facility] [place] [address] TSH 1.53 {uIU/mL} (Normal) Range: 0.358-3.74 :11 Prothrombin Time w/INR Comments: Test performed at:[facility] [address] [place] [address] INR 1.8 (Normal) PROTIME 20.9 s (Abnormal) Range: 11.7-14.9 :27 Prothrombin Time w/INR Comments: Test performed at:[facility] [address] [place] [address] INR 2.2 (Normal) PROTIME 24.8 s (Abnormal) Range: 11.7-14.9 :08 Prothrombin Time w/INR Comments: Test performed at:[facility] [address] [place] [address] INR 4.8 (Abnormal) Comments: CRITICAL VALUE REPEATED AND VERIFIED. CALLED TO RADHA WOMACK10/01/14 0855 Nii Lind.RESULTS READ BACK BY DAVID. PROTIME 44.0 s (Abnormal) Range: 11.7-14.9 :14 Prothrombin Time w/INR Comments: Test performed at:[facility] [address] [place] [address] INR 2.6 (Normal) PROTIME 27.9 s (Abnormal) Range: 11.7-14.9 :16 Prothrombin Time w/INR Comments: Test performed at:[facility] [address] [place] [address] INR 5.0 (Abnormal) Comments: CRITICAL VALUE REPEATED AND VERIFIED. CALLED TO Tami DAVISON09/21/14 0809 Elsie [place].RESULTS READ BACK BY CONNER . PROTIME 45.5 s (Abnormal) Range: 11.7-14.9 :10 Prothrombin Time w/INR Comments: Test performed at:[facility] [address] [place] [address] INR 3.2 (Normal) PROTIME 32.8 s (Abnormal) Range: 11.7-14.9 :24 Miscellaneous Lab Procedure Comments: Comments: [id number] HHV-6 IGM,SST,REFRIGERATETest(s) Ordered: [id number] HHV-6 IGM,SST,REFRIGERATETest performed at:[facility] [address] [place] [address] [facility] Comments: TEST RESULT UNITS REFERENCE INTERVALHuman Herpes Virus Type 6 IgM <1:10 Neg:<1:10Results for this test are for research purposes only by LAB (Normal) theassay's liquid fertilizer servicer. The performance characteristics ofthis product have not been established. Results should notbe used as a diagnostic procedure without confirmation ofthe diagnosis by another med TEST ically established diagnosticproduct or procedure. TESTING PERFORMED AT [facility]. ORIGINAL REPORT ON FILE IN LAB CONTAINS ADDITIONAL TEST SITE IN FORMATION. :18 ANTINUCLEAR ANTIBODIES DIRECT Comments: Test performed at:[facility] [address] [facility] [place] [address] YURIY-DIRECT Negative (Normal) Comments: Performed at: [address] [id number] Director: Narendra Covarrubias PhD, Phone: [phone] :18 CMV Acute Antibody IgM Comments: Test performed at:[place] [address] [facility] [place] [address] CMVIgM AB < 30.0 AU/mL (Normal) Range: 0.0-29.9 Comments: Negative <30.0 Equivocal 30.0 - 34.9 Positive >34.9A positive result is generally indicative of acuteinfection, react ivation or persistent IgM production.Performed at: [address] [id number] Director: Narendra Covarrubias PhD, Phone: [phone] at: [address] [id number] Director: Juan Ontiveros MD, Phone: [phone] at: [address] [place] [address] NLC6819 [place], [place] [id number] Director: Bill Tao PhD, Phone: [phone] :18 CMV Antibody IgG Comments: Test performed at:[facility] [address] [place] [address] CMV AB IgG > 10.00 U/mL (Abnormal) Range: 0.00-0.59 Comments: Negative <0.60 Equivocal 0.60 - 0.69 Positive >0.69 :18 EBV Acute Prof IgG / IgM Comments: Test performed at:[facility] [address]qm[address]bk8335 [facility] [place] [address] INTERPRETATION Comment (Normal) Comments: EBV Interpretation ChartInterpretation EBV-IgM EA(D)-IgG VCA-IgG EBNA-IgGEBV Seronegative - - - -Early Phase + - - -Acute Primary + +or- + -InfectionConvalescence/Past - +or- + +InfectionReactivated +or- + + +Infection + Antibody Present - Antibody Absent EB-NAg [id number] 71.5 U/mL (Abnormal) Range: 0.0-17.9 Comments: Negative <18.0 Equivocal 18.0 - 21.9 Positive >21.9 EB-VCA [id number] > 600.0 U/mL (Abnormal) Range: 0.0-17.9 Comments: Negative <18.0 Equivocal 18.0 - 21.9 Positive >21.9 EB-EA IgG [id number] 21.1 U/mL (Abnormal) Range: 0.0-8.9 Comments: Hepatitis A, Hepatitis C and HIV antibodies may cross-reactwith this assay. Negative < 9.0 Equivocal 9.0 - 10.9 Positive >10.9 EB-VCA [id number] < 36.0 U/mL (Normal) Range: 0.0-35.9 Comments: Negative <36.0 Equivocal 36.0 - 43.9 Positive >43.9 :18 Ferritin Comments: Test performed at:[facility] [address] [place] [address] FERRITIN 28 ng/mL (Normal) Range: 8-252 :18 HLA B27 Negative (Normal) Comments: Test performed at:[facility] Kf[address]hbbf[address]y66[address] [facility] [place] [address] Comments: HLA-B*27 NegativeHLA Lab CLIA ID Number [id number] test was performed using PCR (Polymerase ChainReaction)/SSOP (Sequence Specific Oligonucleotide Probes)technique. SBT (Sequence Based Typing) and/ or SSP(Sequence Specific Primers) may be used as supplementalmethods when necessary. Please contact [facility] CustomerService at if you have any questions. Director of [facility] Laboratory Dr Bill Tao, PhD :18 Homocysteine Comments: Test performed at:[facility] [address] [place] [address] HOMOCYSTEINE 6.7 umol/L (Normal) Range: 3.2-10.7 :18 IgG Subclasses Comments: Test performed at:[facility] [address] [place] [address] IgG, SUBCLASS 4 1 mg/dL (Normal) Range: 1-291 Comments: Results verified by repeat testing IgG, SUBCLASS 3 52 mg/dL (Normal) Range: 41-129 IgG, SUBCLASS 2 145 mg/dL (Normal) Range: 117-747 IgG, SUBCLASS 1 264 mg/dL (Abnormal) Range: 422-1292 IGG, QUANT 520 mg/dL (Abnormal) Range: 700-1600 :18 Miscellaneous Lab Procedure Comments: Comments: [id number] HHV-6 IGG,SST,REFRIGERATETest(s) Ordered: [id number] HHV-6 IGG,SST,REFRIGERATEList Test(s) Ordered by Physician: IGA SUBCLASSES, #[id number], SERUM,RM TEMP, 2 MLTest performed at:[facility] [address] [place] [address] [facility] Comments: TEST RESULT UNITS REFERENCE INTERVALHHV 6 IgG Antibodies 2.42 High index Negative <0.76 Equivocal 0.76 - 0.99 LAB (Normal) Positive >0.99Results for this test are for research purposesonly by the assay's liquid fertilizer servicer. The performancecharacteristics of this product have not beenestablishe TEST d. Results should not be used as adiagnostic procedure without confirmation of thediagnosis by another medically established diagnosticproduct or procedure. TESTING PERFORMED AT [facility]. ORIGINAL REPORT ON FILE IN LAB CONTAINS ADDITIONAL TEST SITE INFORMATION. :18 Miscellaneous Lab Procedure Comments: Comments: [id number] HLA-DR4,SST,REFRIGERATETest(s) Ordered: [id number] HLA-DR4,SST,REFRIGERATETest performed at:[facility] [place] [address] [facility] Comments: TEST RESULT UNITS REFERENCE INTERVALHLA DRB1 (IR) DRB1 DRB1*07:NIRAV DRB1 DRB1*- Code Translation: NIRAV 07:01/07:09/07:10N/07:11/07:14/07:22 LAB (Normal) /07:24 /07:25/07:26N/07:27/07:28/07:29HLA allele interpretation for all loci based on IMGT/HLAdatabase version 3.15ROGELIO Lab CLIA ID Number [id number] TEST TESTING PERFORMED AT [facility]. ORIGINAL REPORT ON FILE IN LAB CONTAINS ADDITIONAL TEST SITE INFORMATION. HLA Methodology:HLA result s were obtained using sequence based typing (SBT),sequence specific oligonucleotide probes (SSOP), and/orsequence specific primers (SSP) as needed to obtain therequired resolution. Please contact [facility] [phone] if you have any questions.Director of HLA LaboratoryDr Bill Tao, PhD :18 Miscellaneous Lab Procedure 2 Comments: Comments: [id number] HHV- 6 IGG,SST,REFRIGERATETest(s) Ordered: [id number] HHV-6 IGG,SST,REFRIGERATEList Test(s) Ordered by Physician: IGA SUBCLASSES, #[id number], SERUM,RM TEMP, 2 MLTest performed at:[facility] [address] [place] [address] [facility] Comments: TEST RESULT UNITS REFERENCE INTERVALIgA, Subclasses (1-2) Immunoglobulin A, Qn, Serum 161 mg/dL 91 - 414 IgA, Subclass 1 132.0 mg/dL LAB (Normal) 73.2 - 301.2 IgA, Subclass 2 6.2 Low mg/dL 13.4 - 97.9 TESTING PERFORMED AT [facility]. ORIGINAL REPORT ON FILE IN LAB CONTAINS MANFRED TEST TIONAL TEST SITE INFORMATION. 2 :18 Prothrombin Time w/INR Comments: Test performed at:[place] [address] [place], [place] [id number] INR 1.9 (Normal) PROTIME 22.3 s (Abnormal) Range: 11.7-14.9 :18 Vitamin B12 664 pg/mL (Normal) Comments: Test performed at:[facility] [address] [place] [id number] Range: 211-911 :18 Vitamin D,25 Hydroxy Comments: Test performed at:[facility] [address] [place] [address] Vitamin D 25-OH 58.8 ng/mL (Normal) Comments: Vitamin D 25(OH) Status Range Deficiency <20 ng/mL (50nmol/L) Insuffciency 20 - 30 ng/mL (50 - 75 nmol/L) Sufficiency 30 - 100 ng/mL (75 - 250 nmol/L) Toxicity >100 ng/mL (>250 nmol/L) :13 CBC W/Diff, Automated Comments: Test performed at:[facility] [address] [place] [address] Absolute Lymph 2.08 {X10_3/ul} (Normal) Range: [...] :13 Comprehensive Metabolic Profil Comments: Test performed at:[facility] Hgmsphgqpl9189 [facility] [place] [address] GAP 7 (Normal) Range: 5-15 [...] 70-110 :13 Lipid Profile Comments: Test performed at:[facility] Hhuqcfzfhp[address] [facility] [address] [place], [place] [phone] VLDL 9 mg/dL (Normal) Range: 5-40 LDL [...] :13 Prothrombin Time w/INR Comments: Test performed at:[facility] [address] [place] [address] INR 1.5 (Normal) PROTIME 18.4 s (Abnormal) Range: 11.7-14.9 :17 INR Fingerstick Comments: Test performed at:[facility] [address] [place] [address] INR ISTAT 1.50 (Normal) Comments: Critical Value > 3.5 :17 Prothrombin Time Fingerstick Comments: Test performed at:[facility] [address] [place] [address] PROTIME ISTAT 17.6 {SEC} (Abnormal) Range: 11.9-14.4 Comments: Reference Range 11.9 - 14.4 :09 INR Fingerstick Comments: Test performed at:[facility] [address] [place] [address] INR ISTAT 1.40 (Normal) Comments: Critical Value > 3.5 :09 Prothrombin Time Fingerstick Comments: Test performed at:[facility] [address] [place] [address]( PROTIME ISTAT 17.1 {SEC} (Abnormal) Range: 11.9-14.4 Comments: Reference Range 11.9 - 14.4 :09 Prothrombin Time w/INR Comments: Test performed at:[facility] [address] [place] [address] INR 1.1 (Normal) PROTIME 14.6 s (Normal) Range: 11.7-14.9 :11 INR Fingerstick Comments: Test performed at:[facility] [address] [place] [address] INR ISTAT 1.20 (Normal) Comments: Critical Value > 3.5 :11 Prothrombin Time Fingerstick Comments: Test performed at:[facility] [address] [place] [address] PROTIME ISTAT 13.9 {SEC} (Normal) Range: 11.9-14.4 Comments: Reference Range 11.9 - 14.4 :06 INR Fingerstick Comments: Test performed at:[facility] [address] [place] [address] INR ISTAT 1.10 (Normal) Comments: Critical Value > 3.5 :06 Prothrombin Time Fingerstick Comments: Test performed at:[facility] [address] [place] [address] PROTIME ISTAT 13.6 {SEC} (Normal) Range: 11.9-14.4 Comments: Reference Range 11.9 - 14.4 :28 INR Fingerstick Comments: Test performed at:[facility] [address] [place] [address] INR ISTAT 2.20 (Normal) Comments: Critical Value > 3.5 :28 Prothrombin Time Fingerstick Comments: Test performed at:[facility] [address] [place] [address] PROTIME ISTAT 25.0 {SEC} (Abnormal) Range: 11.9-14.4 Comments: Reference Range 11.9 - 14.4 :19 INR Fingerstick Comments: Test performed at:[facility] [address] [place] [address] INR ISTAT 2.70 (Normal) Comments: Critical Value > 3.5 :19 Prothrombin Time Fingerstick Comments: Test performed at:[facility] [address] [place] [address] PROTIME ISTAT 30.6 {SEC} (Abnormal) Range: 11.9-14.4 Comments: Reference Range 11.9 - 14.4 :09 Prothrombin Time w/INR Comments: Test performed at:[facility] [address] [place] [address] INR 3.2 (Normal) PROTIME 32.6 s (Abnormal) Range: 11.7-14.9 :22 Prothrombin Time w/INR Comments: Test performed at:[facility] [address] [place] [address] INR 2.6 (Normal) PROTIME 27.8 s (Abnormal) Range: 11.7-14.9 :22 Prothrombin Time w/INR Comments: Test performed at:[facility] [address] [place] [address] INR 3.0 (Normal) PROTIME 30.9 s (Abnormal) Range: 11.7-14.9 :12 Prothrombin Time w/INR Comments: Test performed at:[facility] [address] [place] [address] INR 3.4 (Normal) PROTIME 33.7 s (Abnormal) Range: 11.7-14.9 :10 Prothrombin Time w/INR Comments: Test performed at:[facility] [address] [place] [address] INR 3.7 (Abnormal) PROTIME 36.4 s (Abnormal) Range: 11.7-14.9 11-Ggg-257327:20 Prothrombin Time w/INR Comments: Test performed at:[facility] [address] [place] [address] INR 3.0 (Normal) PROTIME 31.0 s (Abnormal) Range: 11.7-14.9 :10 Prothrombin Time w/INR Comments: Test performed at:[facility] [address] [place] [address] INR 3.0 (Normal) PROTIME 30.7 s (Abnormal) Range: 11.7-14.9 :04 Prothrombin Time w/INR Comments: Test performed at:[facility] [address] [place] [address] INR 1.7 (Normal) PROTIME 19.7 s (Abnormal) Range: 11.7-14.9 :17 Prothrombin Time w/INR Comments: Test performed at:[facility] [address] [place] [address] INR 1.8 (Normal) PROTIME 21.1 s (Abnormal) [...] 4.2-5.4 WBC 4.7 K/mm3 (Normal) Range: 4.4-11.0 8-Sep-75493:55 CMP Comments: DR BARNES ORDERED PT ONLY [...] Comments: Please note revised PROTIME reference range fnfaixrot17/14/15. :05 PT INR 3.0 (Normal) PTP 30.6 s (Abnormal) Range: 11.7-14.9 Comments: Please note revised PROTIME reference range qcgebqfyz58/14/15. :07 PT INR 5.6 (Abnormal) PTP 50.1 s (Abnormal) Range: 11.7-14.9 Comments: Please note revised PROTIME reference range dzagefjqp19/14/15. :03 PT INR 2.5 (Normal) PTP 27.0 s (Abnormal) Range: 11.7-14.9 Comments: Please note revised PROTIME reference range kutmwkqps59/14/15. :03 PT INR 2.0 (Normal) PTP 23.0 s (Abnormal) Range: 11.7-14.9 Comments: Please note revised PROTIME reference range /14/15. :06 PT INR 2.1 (Normal) PTP 21.9 [...] CHOL 287 mg/dL (Abnormal) Comments: <200 mg/dL Uwryyxsmz339-102 mg/dL Borderline>240 mg/dL High Risk TRIG 78 [...] CRITICAL VALUE REPEATED AND VERIFIED. CALLED TO XZYBDVY61/14/14 Jorge Jeovanny Serrano.RESULTS READ BACK BY OLIVIER . [...] CHOL 227 mg/dL (Abnormal) Comments: <200 mg/dL Pddccklnf300-101 mg/dL Borderline>240 mg/dL High Risk HDL 81 [...] CHOL 229 mg/dL (Abnormal) Comments: <200 mg/dL Riijfucjo454-216 mg/dL Borderline>240 mg/dL High Risk :16 PT [...] Rodriguez M.D.September 21, 2012 at 11:00:07 AM [id number] Signed RU/RU If you are the referring physician and would like to consult with theradiologist who provided this interpretation, please contact Man Styles at [phone]. If this radiologist is unavailable, ender directed to another radiologist to as sist. If you are a patient with a question regarding this report, pleasecontactyour referring physician directly. Professional Interpretation Provided By: [employer], Phone ,Fax These documents contain legally protected [...] on 09/21/12 1106 Sign by: Laith Rodriguez 4-Cmk-206106:40 CUUR URC See Note (Normal) Comments: This is an amended result. A prior result that was reported as final has been changed.09/07/12 1448 by NSTANSLOSPreviously reported as: FINAL COLONY COUNT <1000 ORGANISM 1: MIXED GRAM POSITIVE ORGANISMS 1-Nnc-481150:40 LYMEWB lTHXBFPY97C Absent (Normal) tLYMWBINTM Negative (Normal) Comments: Note: [...] are those recommended byCDC/ASTPHLD. p23=Osp C , n70=padgqfrar.Note:Sera from individuals with the following may cross reactin the Lyme Western Blot assays: other spirochetal diseases(periodontal disease, leptospirosis, relapsing fever, yaws,and pin ta); connective autoimmune (Rheumatoid Arthritis andSystemic Lupus Erythematosus and also individuals withAntinuclear Antibody); other infections (Angel MountainSpotted Fever; Desirae-Camargo Virus, and Cy tomegalovirus)..Performed at: [facility] [address] [id number] Director: Juan Ontiveros MD, Phone: [phone] xEXKDOOZ62L Absent (Normal) gQVHHVSO13N Absent (Normal) bWWRGHGD15R Absent (Normal) pIEUIHVH12I Absent (Normal) tLYMWBINTG Negative (Normal) Comments: Positive: 5 of the followingBorrelia- specific bands:18,23,28,30,39,41,45,58,66, and 93.Negative: No bands or bandingpatterns which do notmeet positive criteria. fSWGKPJO06D Absent (Normal) aZAMIIEK51L Absent (Normal) vYBRBJXV08M Absent (Normal) aZBGQMKW15O Present (Abnormal) hMKOVEVN33R Absent (Normal) xDNMQRBB67R Absent (Normal) bWIMHXGD08P Absent (Normal) cEGLFKEK12B Absent (Normal) :03 PT INR 2.9 (Normal) PTP 28.1 s (Abnormal) Range: 11.9-14.4 47-Fcc-168769:12 Microscopic Examination Comments: PATIENT NOT FASTINGPERFORMED BY: [facility] [facility] [id number] Bacteria Few (Normal) Mucus Threads Present (Normal) Epithelial Cells (non renal) 0-10 {/hpf} (Normal) Range: 0 - 10 RBC None seen {/hpf} (Normal) Range: 0 - 3 WBC None seen {/hpf} (Normal) Range: 0 - 5 22-Vyw-424858:12 Lyme Disease Antibody W/ Comments: PATIENT NOT FASTINGPERFORMED BY: [facility] [address] [facility] [id number] Reflex ([id number]) Lyme Ab Interp.,EIA Negative (Normal) Lyme IgG/IgM Ab <0.91 {index} (Normal) Range: 0.00-0.90 Comments: Negative <0.91 Equivocal 0.91 - 1.09 Positive >1.09 Note: The [facility] curren tly advises that Western blot testing be performed following all equivocal or positive EIA results. Final diagnosis should include appropriate clinical findi ngs and a positive EIA which is also positive by Western blot. 44-Ivn-592725:12 SED RATE ERYTHROCYTE ([id number]) Comments: PATIENT NOT FASTINGPERFORMED BY: [facility] [id number] Sedimentation Rate-Westergren 2 mm/h (Normal) Range: 0-40 69-Lnn-544411:12 C-REACTIVE PROTEIN (75960) Comments: PATIENT NOT FASTINGPERFORMED BY: [facility] [address] [facility] [id number] C-Reactive Protein, Quant 0.7 mg/L (Normal) Range: 0.0-4.9 82-Qmd-273626:12 URINALYSIS, W/ MICRO (04295) Comments: PATIENT NOT FASTINGPERFORMED BY: [facility] [address]zt[address]53 [facility] [id number] Microscopic Examination See below: (Normal) Nitrite, Urine Negative (Normal) Urobilinogen,Semi-Qn 0.2 mg/dL (Normal) Range: 0.0-1.9 Bilirubin Negative (Normal) Occult Blood Negative (Normal) Ketones 3+ (Abnormal) Glucose Negative (Normal) Protein 1+ (Abnormal) WBC Esterase Negative (Normal) Appearance Clear (Normal) Urine-Color Yellow (Normal) pH 6.0 (Normal) Range: 5.0-7.5 Specific [place] 1.025 (Normal) Range: 1.005-1.030 59-Pkg-418647:12 TSH ([id number]) Comments: PATIENT NOT FASTINGPERFORMED BY: [facility] [facility] [id number] TSH 2.400 {uIU/mL} (Normal) Range: 0.450-4.500 27-Xsd-285846:12 METABOLIC PANEL, COMPREHENSIVE Comments: PATIENT NOT FASTINGPERFORMED BY: [facility] [id number] ([id number]) ALT (SGPT) 19 [iU]/L (Normal) Range: 0-32 [...] Glucose, Serum 91 mg/dL (Normal) Range: 65-99 06-Btd-158003:12 CBC WITH MANUAL DIFF Comments: PATIENT NOT FASTINGPERFORMED BY: [facility]Saint [facility] HospitalYvufbz3933 [place] [facility] [id number] Information: [id number] ([id number]) Immature Grans (Abs) 0.0 {x10E3/uL} (Normal) Range: [...] TSH 2.44 {uIU/mL} (Normal) Range: 0.358-3.74 :12 [facility] 0 SEEN {/hpf} (Normal) UBAC 0 [...] D deficiency has been defined by the [place] of[place] and an Endocrine Society practice guideline as alevel of serum 25-OH vitamin D less than 20 ng/mL (1,2).The Endocrine Society went on to further define vitamin Dinsufficiency as a level between 21 and 29 ng/mL (2).1. IOM ([place] of [employer]). 2010. Dietary reference intakes for calcium and D. [place]: The National Academies Press.2. Ana FRANK, Heriberto GORDON, Jayla BECKFORD, et al. Evaluation, treatment, and prevention of vitamin D deficiency: an Endocrine Society clinical practice guideline. JCEM. 2010; 96(7): 1911-30.Performed at: [address] [id number] Director: Narendra Covarrubias PhD, Phone: [phone] Plan of Care Name Dates Details Instructions [...] Planned Observations CBC, Platelets & Auto Diff ([id number])Indication: Leukopenia On: : Request CBC, Platelets & Auto Diff ([id number])Indication: Leukopenia On: : Request CBC, Platelets & Auto Diff ([id number])Indication: Leukopenia On: 13-Mar-2042 Request CBC, Platelets & Auto Diff ([id number])Indication: Leukopenia On: : Request CBC, Platelets & Auto Diff ([id number])Indication: Leukopenia On: : Request CBC, Platelets & Auto Diff ([id number])Indication: Leukopenia On: Request CBC, Platelets & Auto Diff ([id number])Indication: Leukopenia On: 18-Mar-2041 Request CBC, Platelets & Auto Diff ([id number])Indication: Leukopenia On: : Request CBC, Platelets & Auto Diff ([id number])Indication: Leukopenia On: : Request CBC, Platelets & Auto Diff ([id number])Indication: Leukopenia On: : Request CBC, Platelets & Auto Diff ([id number])Indication: Leukopenia On: 23-Mar-2040 Request CBC, Platelets & Auto Diff ([id number])Indication: Leukopenia On: : Request CBC, Platelets & Auto Diff ([id number])Indication: Leukopenia On: : Request CBC, Platelets & Auto Diff ([id number])Indication: Leukopenia On: : Request CBC, Platelets & Auto Diff ([id number])Indication: Leukopenia On: 29-Mar-2039 Request CBC, Platelets & Auto Diff ([id number])Indication: Leukopenia On: :00 Request CBC, Platelets & Auto Diff ([id number])Indication: Leukopenia On: :00 Request CBC, Platelets & Auto Diff ([id number])Indication: Leukopenia On: : Request CBC, Platelets & Auto Diff ([id number])Indication: Leukopenia On: 03-Apr-2038 Request CBC, Platelets & Auto Diff ([id number])Indication: Leukopenia On: :00 Request CBC, Platelets & Auto Diff ([id number])Indication: Leukopenia On: :00 Request CBC, Platelets & Auto Diff ([id number])Indication: Leukopenia On: :00 Request CBC, Platelets & Auto Diff ([id number])Indication: Leukopenia On: 08-Apr-2037 Request CBC, Platelets & Auto Diff ([id number])Indication: Leukopenia On: :00 Request CBC, Platelets & Auto Diff ([id number])Indication: Leukopenia On: :00 Request CBC, Platelets & Auto Diff ([id number])Indication: Leukopenia On: :00 Request CBC, Platelets & Auto Diff ([id number])Indication: Leukopenia On: 13-Apr-2036 Request CBC, Platelets & Auto Diff ([id number])Indication: Leukopenia On: :00 Request CBC, Platelets & Auto Diff ([id number])Indication: Leukopenia On: :00 Request CBC, Platelets & Auto Diff ([id number])Indication: Leukopenia On: : Request CBC, Platelets & Auto Diff ([id number])Indication: Leukopenia On: 19-Apr-2035 Request CBC, Platelets & Auto Diff ([id number])Indication: Leukopenia On: : Request CBC, Platelets & Auto Diff ([id number])Indication: Leukopenia On: : Request CBC, Platelets & Auto Diff ([id number])Indication: Leukopenia On: : Request CBC, Platelets & Auto Diff ([id number])Indication: Leukopenia On: 24-Apr-2034 Request CBC, Platelets & Auto Diff ([id number])Indication: Leukopenia On: : Request CBC, Platelets & Auto Diff ([id number])Indication: Leukopenia On: : Request CBC, Platelets & Auto Diff ([id number])Indication: Leukopenia On: :00 Request CBC, Platelets & Auto Diff ([id number])Indication: Leukopenia On: 29-Apr-2033 Request CBC, Platelets & Auto Diff ([id number])Indication: Leukopenia On: :00 Request CBC, Platelets & Auto Diff ([id number])Indication: Leukopenia On: :00 Request CBC, Platelets & Auto Diff ([id number])Indication: Leukopenia On: :00 Request CBC, Platelets & Auto Diff ([id number])Indication: Leukopenia On: 04-May-2032 Request CBC, Platelets & Auto Diff ([id number])Indication: Leukopenia On: :00 Request CBC, Platelets & Auto Diff ([id number])Indication: Leukopenia On: :00 Request CBC, Platelets & Auto Diff ([id number])Indication: Leukopenia On: : Request CBC, Platelets & Auto Diff ([id number])Indication: Leukopenia On: 10-May-2031 Request CBC, Platelets & Auto Diff ([id number])Indication: Leukopenia On: 09-Feb-2031 Request CBC, Platelets & Auto Diff ([id number])Indication: Leukopenia On: :00 Request CBC, Platelets & Auto Diff ([id number])Indication: Leukopenia On: :00 Request CBC, Platelets & Auto Diff ([id number])Indication: Leukopenia On: 15-May-2030 Request CBC, Platelets & Auto Diff ([id number])Indication: Leukopenia On: 14-Feb-2030 Request CBC, Platelets & Auto Diff ([id number])Indication: Leukopenia On: :00 Request CBC, Platelets & Auto Diff ([id number])Indication: Leukopenia On: : Request CBC, Platelets & Auto Diff ([id number])Indication: Leukopenia On: 20-May-2029 Request CBC, Platelets & Auto Diff ([id number])Indication: Leukopenia On: 19-Feb-2029 Request CBC, Platelets & Auto Diff ([id number])Indication: Leukopenia On: :00 Request CBC, Platelets & Auto Diff ([id number])Indication: Leukopenia On: :00 Request CBC, Platelets & Auto Diff ([id number])Indication: Leukopenia On: 25-May-2028 Request CBC, Platelets & Auto Diff ([id number])Indication: Leukopenia On: 25-Feb-2028 Request CBC, Platelets & Auto Diff ([id number])Indication: Leukopenia On: :00 Request CBC, Platelets & Auto Diff ([id number])Indication: Leukopenia On: :00 Request CBC, Platelets & Auto Diff ([id number])Indication: Leukopenia On: 31-May-2027 Request CBC, Platelets & Auto Diff ([id number])Indication: Leukopenia On: 02-Mar-2027 Request CBC, Platelets & Auto Diff ([id number])Indication: Leukopenia On: :00 Request CBC, Platelets & Auto Diff ([id number])Indication: Leukopenia On: :00 Request CBC, Platelets & Auto Diff ([id number])Indication: Leukopenia On: 05-Jun-2026 Request CBC, Platelets & Auto Diff ([id number])Indication: Leukopenia On: 07-Mar-2026 Request CBC, Platelets & Auto Diff ([id number])Indication: Leukopenia On: :00 Request CBC, Platelets & Auto Diff ([id number])Indication: Leukopenia On: :00 Request CBC, Platelets & Auto Diff ([id number])Indication: Leukopenia On: 10-Jun-2025 Request CBC, Platelets & Auto Diff ([id number])Indication: Leukopenia On: 12-Mar-2025 Request CBC, Platelets & Auto Diff ([id number])Indication: Leukopenia On: :00 Request CBC, Platelets & Auto Diff ([id number])Indication: Leukopenia On: : Request CBC, Platelets & Auto Diff ([id number])Indication: Leukopenia On: : Request CBC, Platelets & Auto Diff ([id number])Indication: Leukopenia On: 17-Mar-2024 Request CBC, Platelets & Auto Diff ([id number])Indication: Leukopenia On: : Request CBC, Platelets & Auto Diff ([id number])Indication: Leukopenia On: :00 Request CBC, Platelets & Auto Diff ([id number])Indication: Leukopenia On: :00 Request CBC, Platelets & Auto Diff ([id number])Indication: Leukopenia On: 23-Mar-2023 Request CBC, Platelets & Auto Diff ([id number])Indication: Leukopenia On: :00 Request CBC, Platelets & Auto Diff ([id number])Indication: Leukopenia On: :00 Request CBC, Platelets & Auto Diff ([id number])Indication: Leukopenia On: :00 Request CBC, Platelets & Auto Diff ([id number])Indication: Leukopenia On: 28-Mar-2022 Request CBC, Platelets & Auto Diff ([id number])Indication: Leukopenia On: :00 Request CBC, Platelets & Auto Diff ([id number])Indication: Leukopenia On: :00 Request CBC, Platelets & Auto Diff ([id number])Indication: Leukopenia On: :00 Request CBC, Platelets & Auto Diff ([id number])Indication: Leukopenia On: 02-Apr-2021 Request CBC, Platelets & Auto Diff ([id number])Indication: Leukopenia On: :00 Request CBC, Platelets & Auto Diff ([id number])Indication: Leukopenia On: :00 Request CBC, Platelets & Auto Diff ([id number])Indication: Leukopenia On: :00 Request CBC, Platelets & Auto Diff ([id number])Indication: Leukopenia On: 07-Apr-2020 Request CBC, Platelets & Auto Diff ([id number])Indication: Leukopenia On: 08-Jan-2020 Request CBC, Platelets & Auto Diff ([id number])Indication: Leukopenia On: 10-Oct-2019 Request CBC, Platelets & Auto Diff ([id number])Indication: Leukopenia On: 12-Jul-2019 Request CBC, Platelets & Auto Diff ([id number])Indication: Leukopenia On: 13-Apr-2019 Request PT (PROTHROMBIN TIME) ([id number]) : standing orderIndication: History of DVT (deep vein thrombosis) On: 02-Mar-2019 Request Comments: standing order PT (PROTHROMBIN TIME) ([id number]) : standing orderIndication: History of DVT (deep vein thrombosis) On: 01-Mar-2019 Request Comments: standing order PT (PROTHROMBIN TIME) ([id number]) : standing orderIndication: History of DVT (deep vein thrombosis) On: 28-Feb-2019 Request Comments: standing order PT (PROTHROMBIN TIME) ([id number]) : standing orderIndication: History of DVT (deep vein thrombosis) On: 27-Feb-2019 Request Comments: standing order PT (PROTHROMBIN TIME) ([id number]) : standing orderIndication: History of DVT (deep vein thrombosis) On: 26-Feb-2019 Request Comments: standing order PT (PROTHROMBIN TIME) ([id number])Indication: History of DVT (deep vein thrombosis) On: 25-Feb-2019 Request PT (PROTHROMBIN TIME) ([id number]) : standing orderIndication: History of DVT (deep vein thrombosis) On: 25-Feb-2019 Request Comments: standing order PT (PROTHROMBIN TIME) ([id number]) : standing orderIndication: History of DVT (deep vein thrombosis) On: 25-Feb-2019 Request Comments: standing order PT (PROTHROMBIN TIME) ([id number]) : standing orderIndication: History of DVT (deep vein thrombosis) On: 24-Feb-2019 Request Comments: standing order PT (PROTHROMBIN TIME) ([id number]) : standing orderIndication: History of DVT (deep vein thrombosis) On: 23-Feb-2019 Request Comments: standing order PT (PROTHROMBIN TIME) ([id number]) : standing orderIndication: History of DVT (deep vein thrombosis) On: 22-Feb-2019 Request Comments: standing order PT (PROTHROMBIN TIME) ([id number]) : standing orderIndication: History of DVT (deep vein thrombosis) On: 21-Feb-2019 Request Comments: standing order PT (PROTHROMBIN TIME) ([id number]) : standing orderIndication: History of DVT (deep vein thrombosis) On: 20-Feb-2019 Request Comments: standing order PT (PROTHROMBIN TIME) ([id number]) : standing orderIndication: History of DVT (deep vein thrombosis) On: 19-Feb-2019 Request Comments: standing order PT (PROTHROMBIN TIME) ([id number]) : standing orderIndication: History of DVT (deep vein thrombosis) On: 18-Feb-2019 Request Comments: standing order PT (PROTHROMBIN TIME) ([id number]) : standing orderIndication: History of DVT (deep vein thrombosis) On: 17-Feb-2019 Request Comments: standing order PT (PROTHROMBIN TIME) ([id number]) : standing orderIndication: History of DVT (deep vein thrombosis) On: 16-Feb-2019 Request Comments: standing order PT (PROTHROMBIN TIME) ([id number]) : standing orderIndication: History of DVT (deep vein thrombosis) On: 15-Feb-2019 Request Comments: standing order PT (PROTHROMBIN TIME) ([id number]) : standing orderIndication: History of DVT (deep vein thrombosis) On: 14-Feb-2019 Request Comments: standing order PT (PROTHROMBIN TIME) ([id number]) : standing orderIndication: History of DVT (deep vein thrombosis) On: 13-Feb-2019 Request Comments: standing order PT (PROTHROMBIN TIME) ([id number]) : standing orderIndication: History of DVT (deep vein thrombosis) On: 12-Feb-2019 Request Comments: standing order PT (PROTHROMBIN TIME) ([id number]) : standing orderIndication: History of DVT (deep vein thrombosis) On: 11-Feb-2019 Request Comments: standing order PT (PROTHROMBIN TIME) ([id number]) : standing orderIndication: History of DVT (deep vein thrombosis) On: 10-Feb-2019 Request Comments: standing order PT (PROTHROMBIN TIME) ([id number]) : standing orderIndication: History of DVT (deep vein thrombosis) On: 09-Feb-2019 Request Comments: standing order PT (PROTHROMBIN TIME) ([id number]) : standing orderIndication: History of DVT (deep vein thrombosis) On: 08-Feb-2019 Request Comments: standing order PT (PROTHROMBIN TIME) ([id number]) : standing orderIndication: History of DVT (deep vein thrombosis) On: 07-Feb-2019 Request Comments: standing order PT (PROTHROMBIN TIME) ([id number]) : standing orderIndication: History of DVT (deep vein thrombosis) On: 06-Feb-2019 Request Comments: standing order PT (PROTHROMBIN TIME) ([id number]) : standing orderIndication: History of DVT (deep vein thrombosis) On: 05-Feb-2019 Request Comments: standing order PT (PROTHROMBIN TIME) ([id number]) : standing orderIndication: History of DVT (deep vein thrombosis) On: 04-Feb-2019 Request Comments: standing order PT (PROTHROMBIN TIME) ([id number]) : standing orderIndication: History of DVT (deep vein thrombosis) On: 03-Feb-2019 Request Comments: standing order PT (PROTHROMBIN TIME) ([id number]) : standing orderIndication: History of DVT (deep vein thrombosis) On: 02-Feb-2019 Request Comments: standing order PT (PROTHROMBIN TIME) ([id number]) : standing orderIndication: History of DVT (deep vein thrombosis) On: 01-Feb-2019 Request Comments: standing order PT (PROTHROMBIN TIME) ([id number]) : standing orderIndication: History of DVT (deep vein thrombosis) On: 31-Jan-2019 Request Comments: standing order PT (PROTHROMBIN TIME) ([id number]) : standing orderIndication: History of DVT (deep vein thrombosis) On: 30-Jan-2019 Request Comments: standing order PT (PROTHROMBIN TIME) ([id number]) : standing orderIndication: History of DVT (deep vein thrombosis) On: 29-Jan-2019 Request Comments: standing order PT (Prothrobim Time) ([id number])Indication: History of DVT (deep vein thrombosis) On: 28-Jan-2019 Request Comments: INR PT (PROTHROMBIN TIME) ([id number]) : standing orderIndication: History of DVT (deep vein thrombosis) On: 28-Jan-2019 Request Comments: standing order PT (PROTHROMBIN TIME) ([id number]) : standing orderIndication: History of DVT (deep vein thrombosis) On: 27-Jan-2019 Request Comments: standing order PT (PROTHROMBIN TIME) ([id number])Indication: History of DVT (deep vein thrombosis) On: 26-Jan-2019 Request PT (PROTHROMBIN TIME) ([id number]) : standing orderIndication: History of DVT (deep vein thrombosis) On: 26-Jan-2019 Request Comments: standing order PT (PROTHROMBIN TIME) ([id number]) : standing orderIndication: History of DVT (deep vein thrombosis) On: 26-Jan-2019 Request Comments: standing order PT (PROTHROMBIN TIME) ([id number]) : standing orderIndication: History of DVT (deep vein thrombosis) On: 25-Jan-2019 Request Comments: standing order PT (PROTHROMBIN TIME) ([id number]) : standing orderIndication: History of DVT (deep vein thrombosis) On: 24-Jan-2019 Request Comments: standing order PT (PROTHROMBIN TIME) ([id number]) : standing orderIndication: History of DVT (deep vein thrombosis) On: 23-Jan-2019 Request Comments: standing order PT (PROTHROMBIN TIME) ([id number]) : standing orderIndication: History of DVT (deep vein thrombosis) On: 22-Jan-2019 Request Comments: standing order PT (PROTHROMBIN TIME) ([id number]) : standing orderIndication: History of DVT (deep vein thrombosis) On: 21-Jan-2019 Request Comments: standing order PT (PROTHROMBIN TIME) ([id number]) : standing orderIndication: History of DVT (deep vein thrombosis) On: 20-Jan-2019 Request Comments: standing order PT (PROTHROMBIN TIME) ([id number]) : standing orderIndication: History of DVT (deep vein thrombosis) On: 19-Jan-2019 Request Comments: standing order PT (PROTHROMBIN TIME) ([id number]) : standing orderIndication: History of DVT (deep vein thrombosis) On: 18-Jan-2019 Request Comments: standing order PT (PROTHROMBIN TIME) ([id number]) : standing orderIndication: History of DVT (deep vein thrombosis) On: 17-Jan-2019 Request Comments: standing order PT (PROTHROMBIN TIME) ([id number]) : standing orderIndication: History of DVT (deep vein thrombosis) On: 16-Jan-2019 Request Comments: standing order PT (PROTHROMBIN TIME) ([id number]) : standing orderIndication: History of DVT (deep vein thrombosis) On: 15-Jan-2019 Request Comments: standing order PT (PROTHROMBIN TIME) ([id number]) : standing orderIndication: History of DVT (deep vein thrombosis) On: 14-Jan-2019 Request Comments: standing order CBC, Platelets & Auto Diff ([id number])Indication: Leukopenia On: 13-Jan-2019 Request PT (PROTHROMBIN TIME) ([id number]) : standing orderIndication: History of DVT (deep vein thrombosis) On: 13-Jan-2019 Request Comments: standing order PT (PROTHROMBIN TIME) ([id number]) : standing orderIndication: History of DVT (deep vein thrombosis) On: 12-Jan-2019 Request Comments: standing order PT (PROTHROMBIN TIME) ([id number]) : standing orderIndication: History of DVT (deep vein thrombosis) On: 11-Jan-2019 Request Comments: standing order PT (PROTHROMBIN TIME) ([id number]) : standing orderIndication: History of DVT (deep vein thrombosis) On: 10-Jan-2019 Request Comments: standing order PT (PROTHROMBIN TIME) ([id number]) : standing orderIndication: History of DVT (deep vein thrombosis) On: 09-Jan-2019 Request Comments: standing order PT (PROTHROMBIN TIME) ([id number]) : standing orderIndication: History of DVT (deep vein thrombosis) On: 08-Jan-2019 Request Comments: standing order PT (PROTHROMBIN TIME) ([id number]) : standing orderIndication: History of DVT (deep vein thrombosis) On: 07-Jan-2019 Request Comments: standing order PT (PROTHROMBIN TIME) ([id number]) : standing orderIndication: History of DVT (deep vein thrombosis) On: 06-Jan-2019 Request Comments: standing order PT (PROTHROMBIN TIME) ([id number]) : standing orderIndication: History of DVT (deep vein thrombosis) On: 05-Jan-2019 Request Comments: standing order PT (PROTHROMBIN TIME) ([id number]) : standing orderIndication: History of DVT (deep vein thrombosis) On: 04-Jan-2019 Request Comments: standing order PT (PROTHROMBIN TIME) ([id number]) : standing orderIndication: History of DVT (deep vein thrombosis) On: 03-Jan-2019 Request Comments: standing order PT (PROTHROMBIN TIME) ([id number]) : standing orderIndication: History of DVT (deep vein thrombosis) On: 02-Jan-2019 Request Comments: standing order PT (PROTHROMBIN TIME) ([id number]) : standing orderIndication: History of DVT (deep vein thrombosis) On: 01-Jan-2019 Request Comments: standing order PT (PROTHROMBIN TIME) ([id number]) : standing orderIndication: History of DVT (deep vein thrombosis) On: 31-Dec-2018 Request Comments: standing order PT (PROTHROMBIN TIME) ([id number]) : standing orderIndication: History of DVT (deep vein thrombosis) On: 30-Dec-2018 Request Comments: standing order PT (Prothrobim Time) ([id number])Indication: History of DVT (deep vein thrombosis) On: 29-Dec-2018 Request Comments: INR PT (PROTHROMBIN TIME) ([id number]) : standing orderIndication: History of DVT (deep vein thrombosis) On: 29-Dec-2018 Request Comments: standing order PT (PROTHROMBIN TIME) ([id number]) : standing orderIndication: History of DVT (deep vein thrombosis) On: 28-Dec-2018 Request Comments: standing order PT (PROTHROMBIN TIME) ([id number])Indication: History of DVT (deep vein thrombosis) On: 27-Dec-2018 Request PT (PROTHROMBIN TIME) ([id number]) : standing orderIndication: History of DVT (deep vein thrombosis) On: 27-Dec-2018 Request Comments: standing order PT (PROTHROMBIN TIME) ([id number]) : standing orderIndication: History of DVT (deep vein thrombosis) On: 27-Dec-2018 Request Comments: standing order PT (PROTHROMBIN TIME) ([id number]) : standing orderIndication: History of DVT (deep vein thrombosis) On: 26-Dec-2018 Request Comments: standing order PT (PROTHROMBIN TIME) ([id number]) : standing orderIndication: History of DVT (deep vein thrombosis) On: 25-Dec-2018 Request Comments: standing order PT (PROTHROMBIN TIME) ([id number]) : standing orderIndication: History of DVT (deep vein thrombosis) On: 24-Dec-2018 Request Comments: standing order PT (PROTHROMBIN TIME) ([id number]) : standing orderIndication: History of DVT (deep vein thrombosis) On: 23-Dec-2018 Request Comments: standing order PT (PROTHROMBIN TIME) ([id number]) : standing orderIndication: History of DVT (deep vein thrombosis) On: 22-Dec-2018 Request Comments: standing order PT (PROTHROMBIN TIME) ([id number]) : standing orderIndication: History of DVT (deep vein thrombosis) On: 21-Dec-2018 Request Comments: standing order PT (PROTHROMBIN TIME) ([id number]) : standing orderIndication: History of DVT (deep vein thrombosis) On: 20-Dec-2018 Request Comments: standing order PT (PROTHROMBIN TIME) ([id number]) : standing orderIndication: History of DVT (deep vein thrombosis) On: 19-Dec-2018 Request Comments: standing order PT (PROTHROMBIN TIME) ([id number]) : standing orderIndication: History of DVT (deep vein thrombosis) On: 18-Dec-2018 Request Comments: standing order PT (PROTHROMBIN TIME) ([id number]) : standing orderIndication: History of DVT (deep vein thrombosis) On: 17-Dec-2018 Request Comments: standing order PT (PROTHROMBIN TIME) ([id number]) : standing orderIndication: History of DVT (deep vein thrombosis) On: 16-Dec-2018 Request Comments: standing order PT (PROTHROMBIN TIME) ([id number]) : standing orderIndication: History of DVT (deep vein thrombosis) On: 15-Dec-2018 Request Comments: standing order PT (PROTHROMBIN TIME) ([id number]) : standing orderIndication: History of DVT (deep vein thrombosis) On: 14-Dec-2018 Request Comments: standing order PT (PROTHROMBIN TIME) ([id number]) : standing orderIndication: History of DVT (deep vein thrombosis) On: 13-Dec-2018 Request Comments: standing order PT (PROTHROMBIN TIME) ([id number]) : standing orderIndication: History of DVT (deep vein thrombosis) On: 12-Dec-2018 Request Comments: standing order PT (PROTHROMBIN TIME) ([id number]) : standing orderIndication: History of DVT (deep vein thrombosis) On: 11-Dec-2018 Request Comments: standing order PT (PROTHROMBIN TIME) ([id number]) : standing orderIndication: History of DVT (deep vein thrombosis) On: 10-Dec-2018 Request Comments: standing order PT (PROTHROMBIN TIME) ([id number]) : standing orderIndication: History of DVT (deep vein thrombosis) On: 09-Dec-2018 Request Comments: standing order PT (PROTHROMBIN TIME) ([id number]) : standing orderIndication: History of DVT (deep vein thrombosis) On: 08-Dec-2018 Request Comments: standing order PT (PROTHROMBIN TIME) ([id number]) : standing orderIndication: History of DVT (deep vein thrombosis) On: 07-Dec-2018 Request Comments: standing order PT (PROTHROMBIN TIME) ([id number]) : standing orderIndication: History of DVT (deep vein thrombosis) On: 06-Dec-2018 Request Comments: standing order PT (PROTHROMBIN TIME) ([id number]) : standing orderIndication: History of DVT (deep vein thrombosis) On: 05-Dec-2018 Request Comments: standing order PT (PROTHROMBIN TIME) ([id number]) : standing orderIndication: History of DVT (deep vein thrombosis) On: 04-Dec-2018 Request Comments: standing order PT (PROTHROMBIN TIME) ([id number]) : standing orderIndication: History of DVT (deep vein thrombosis) On: 03-Dec-2018 Request Comments: standing order PT (PROTHROMBIN TIME) ([id number]) : standing orderIndication: History of DVT (deep vein thrombosis) On: 02-Dec-2018 Request Comments: standing order PT (PROTHROMBIN TIME) ([id number]) : standing orderIndication: History of DVT (deep vein thrombosis) On: 01-Dec-2018 Request Comments: standing order PT (PROTHROMBIN TIME) ([id number]) : standing orderIndication: History of DVT (deep vein thrombosis) On: 30-Nov-2018 Request Comments: standing order PT (Prothrobim Time) ([id number])Indication: History of DVT (deep vein thrombosis) On: 29-Nov-2018 Request Comments: INR PT (PROTHROMBIN TIME) ([id number]) : standing orderIndication: History of DVT (deep vein thrombosis) On: 29-Nov-2018 Request Comments: standing order PT (PROTHROMBIN TIME) ([id number]) : standing orderIndication: History of DVT (deep vein thrombosis) On: 28-Nov-2018 Request Comments: standing order PT (PROTHROMBIN TIME) ([id number])Indication: History of DVT (deep vein thrombosis) On: 27-Nov-2018 Request PT (PROTHROMBIN TIME) ([id number]) : standing orderIndication: History of DVT (deep vein thrombosis) On: 27-Nov-2018 Request Comments: standing order PT (PROTHROMBIN TIME) ([id number]) : standing orderIndication: History of DVT (deep vein thrombosis) On: 27-Nov-2018 Request Comments: standing order PT (PROTHROMBIN TIME) ([id number]) : standing orderIndication: History of DVT (deep vein thrombosis) On: 26-Nov-2018 Request Comments: standing order PT (PROTHROMBIN TIME) ([id number]) : standing orderIndication: History of DVT (deep vein thrombosis) On: 25-Nov-2018 Request Comments: standing order PT (PROTHROMBIN TIME) ([id number]) : standing orderIndication: History of DVT (deep vein thrombosis) On: 24-Nov-2018 Request Comments: standing order PT (PROTHROMBIN TIME) ([id number]) : standing orderIndication: History of DVT (deep vein thrombosis) On: 23-Nov-2018 Request Comments: standing order PT (PROTHROMBIN TIME) ([id number]) : standing orderIndication: History of DVT (deep vein thrombosis) On: 22-Nov-2018 Request Comments: standing order PT (PROTHROMBIN TIME) ([id number]) : standing orderIndication: History of DVT (deep vein thrombosis) On: 21-Nov-2018 Request Comments: standing order PT (PROTHROMBIN TIME) ([id number]) : standing orderIndication: History of DVT (deep vein thrombosis) On: 20-Nov-2018 Request Comments: standing order PT (PROTHROMBIN TIME) ([id number]) : standing orderIndication: History of DVT (deep vein thrombosis) On: 19-Nov-2018 Request Comments: standing order PT (PROTHROMBIN TIME) ([id number]) : standing orderIndication: History of DVT (deep vein thrombosis) On: 18-Nov-2018 Request Comments: standing order PT (PROTHROMBIN TIME) ([id number]) : standing orderIndication: History of DVT (deep vein thrombosis) On: 17-Nov-2018 Request Comments: standing order PT (PROTHROMBIN TIME) ([id number]) : standing orderIndication: History of DVT (deep vein thrombosis) On: 16-Nov-2018 Request Comments: standing order PT (PROTHROMBIN TIME) ([id number]) : standing orderIndication: History of DVT (deep vein thrombosis) On: 15-Nov-2018 Request Comments: standing order PT (PROTHROMBIN TIME) ([id number]) : standing orderIndication: History of DVT (deep vein thrombosis) On: 14-Nov-2018 Request Comments: standing order PT (PROTHROMBIN TIME) ([id number]) : standing orderIndication: History of DVT (deep vein thrombosis) On: 13-Nov-2018 Request Comments: standing order PT (PROTHROMBIN TIME) ([id number]) : standing orderIndication: History of DVT (deep vein thrombosis) On: 12-Nov-2018 Request Comments: standing order PT (PROTHROMBIN TIME) ([id number]) : standing orderIndication: History of DVT (deep vein thrombosis) On: 11-Nov-2018 Request Comments: standing order PT (PROTHROMBIN TIME) ([id number]) : standing orderIndication: History of DVT (deep vein thrombosis) On: 10-Nov-2018 Request Comments: standing order PT (PROTHROMBIN TIME) ([id number]) : standing orderIndication: History of DVT (deep vein thrombosis) On: 09-Nov-2018 Request Comments: standing order PT (PROTHROMBIN TIME) ([id number]) : standing orderIndication: History of DVT (deep vein thrombosis) On: 08-Nov-2018 Request Comments: standing order PT (PROTHROMBIN TIME) ([id number]) : standing orderIndication: History of DVT (deep vein thrombosis) On: 07-Nov-2018 Request Comments: standing order PT (PROTHROMBIN TIME) ([id number]) : standing orderIndication: History of DVT (deep vein thrombosis) On: 06-Nov-2018 Request Comments: standing order PT (PROTHROMBIN TIME) ([id number]) : standing orderIndication: History of DVT (deep vein thrombosis) On: 05-Nov-2018 Request Comments: standing order PT (PROTHROMBIN TIME) ([id number]) : standing orderIndication: History of DVT (deep vein thrombosis) On: 04-Nov-2018 Request Comments: standing order PT (PROTHROMBIN TIME) ([id number]) : standing orderIndication: History of DVT (deep vein thrombosis) On: 03-Nov-2018 Request Comments: standing order PT (PROTHROMBIN TIME) ([id number]) : standing orderIndication: History of DVT (deep vein thrombosis) On: 02-Nov-2018 Request Comments: standing order PT (PROTHROMBIN TIME) ([id number]) : standing orderIndication: History of DVT (deep vein thrombosis) On: 01-Nov-2018 Request Comments: standing order PT (PROTHROMBIN TIME) ([id number]) : standing orderIndication: History of DVT (deep vein thrombosis) On: 31-Oct-2018 Request Comments: standing order PT (Prothrobim Time) ([id number])Indication: History of DVT (deep vein thrombosis) On: 30-Oct-2018 Request Comments: INR PT (PROTHROMBIN TIME) ([id number]) : standing orderIndication: History of DVT (deep vein thrombosis) On: 30-Oct-2018 Request Comments: standing order PT (PROTHROMBIN TIME) ([id number]) : standing orderIndication: History of DVT (deep vein thrombosis) On: 29-Oct-2018 Request Comments: standing order PT (PROTHROMBIN TIME) ([id number])Indication: History of DVT (deep vein thrombosis) On: 28-Oct-2018 Request PT (PROTHROMBIN TIME) ([id number]) : standing orderIndication: History of DVT (deep vein thrombosis) On: 28-Oct-2018 Request Comments: standing order PT (PROTHROMBIN TIME) ([id number]) : standing orderIndication: History of DVT (deep vein thrombosis) On: 28-Oct-2018 Request Comments: standing order PT (PROTHROMBIN TIME) ([id number]) : standing orderIndication: History of DVT (deep vein thrombosis) On: 27-Oct-2018 Request Comments: standing order PT (PROTHROMBIN TIME) ([id number]) : standing orderIndication: History of DVT (deep vein thrombosis) On: 26-Oct-2018 Request Comments: standing order PT (PROTHROMBIN TIME) ([id number]) : standing orderIndication: History of DVT (deep vein thrombosis) On: 25-Oct-2018 Request Comments: standing order PT (PROTHROMBIN TIME) ([id number]) : standing orderIndication: History of DVT (deep vein thrombosis) On: 24-Oct-2018 Request Comments: standing order PT (PROTHROMBIN TIME) ([id number]) : standing orderIndication: History of DVT (deep vein thrombosis) On: 23-Oct-2018 Request Comments: standing order PT (PROTHROMBIN TIME) ([id number]) : standing orderIndication: History of DVT (deep vein thrombosis) On: 22-Oct-2018 Request Comments: standing order PT (PROTHROMBIN TIME) ([id number]) : standing orderIndication: History of DVT (deep vein thrombosis) On: 21-Oct-2018 Request Comments: standing order PT (PROTHROMBIN TIME) ([id number]) : standing orderIndication: History of DVT (deep vein thrombosis) On: 20-Oct-2018 Request Comments: standing order PT (PROTHROMBIN TIME) ([id number]) : standing orderIndication: History of DVT (deep vein thrombosis) On: 19-Oct-2018 Request Comments: standing order PT (PROTHROMBIN TIME) ([id number]) : standing orderIndication: History of DVT (deep vein thrombosis) On: 18-Oct-2018 Request Comments: standing order PT (PROTHROMBIN TIME) ([id number]) : standing orderIndication: History of DVT (deep vein thrombosis) On: 17-Oct-2018 Request Comments: standing order PT (PROTHROMBIN TIME) ([id number]) : standing orderIndication: History of DVT (deep vein thrombosis) On: 16-Oct-2018 Request Comments: standing order CBC, Platelets & Auto Diff ([id number])Indication: Leukopenia On: 15-Oct-2018 Request PT (PROTHROMBIN TIME) ([id number]) : standing orderIndication: History of DVT (deep vein thrombosis) On: 15-Oct-2018 Request Comments: standing order PT (PROTHROMBIN TIME) ([id number]) : standing orderIndication: History of DVT (deep vein thrombosis) On: 14-Oct-2018 Request Comments: standing order PT (PROTHROMBIN TIME) ([id number]) : standing orderIndication: History of DVT (deep vein thrombosis) On: 13-Oct-2018 Request Comments: standing order PT (PROTHROMBIN TIME) ([id number]) : standing orderIndication: History of DVT (deep vein thrombosis) On: 12-Oct-2018 Request Comments: standing order PT (PROTHROMBIN TIME) ([id number]) : standing orderIndication: History of DVT (deep vein thrombosis) On: 11-Oct-2018 Request Comments: standing order PT (PROTHROMBIN TIME) ([id number]) : standing orderIndication: History of DVT (deep vein thrombosis) On: 10-Oct-2018 Request Comments: standing order PT (PROTHROMBIN TIME) ([id number]) : standing orderIndication: History of DVT (deep vein thrombosis) On: 09-Oct-2018 Request Comments: standing order PT (PROTHROMBIN TIME) ([id number]) : standing orderIndication: History of DVT (deep vein thrombosis) On: 08-Oct-2018 Request Comments: standing order PT (PROTHROMBIN TIME) ([id number]) : standing orderIndication: History of DVT (deep vein thrombosis) On: 07-Oct-2018 Request Comments: standing order PT (PROTHROMBIN TIME) ([id number]) : standing orderIndication: History of DVT (deep vein thrombosis) On: 06-Oct-2018 Request Comments: standing order PT (PROTHROMBIN TIME) ([id number]) : standing orderIndication: History of DVT (deep vein thrombosis) On: 05-Oct-2018 Request Comments: standing order PT (PROTHROMBIN TIME) ([id number]) : standing orderIndication: History of DVT (deep vein thrombosis) On: 04-Oct-2018 Request Comments: standing order PT (PROTHROMBIN TIME) ([id number]) : standing orderIndication: History of DVT (deep vein thrombosis) On: 03-Oct-2018 Request Comments: standing order PT (PROTHROMBIN TIME) ([id number]) : standing orderIndication: History of DVT (deep vein thrombosis) On: 02-Oct-2018 Request Comments: standing order PT (PROTHROMBIN TIME) ([id number]) : standing orderIndication: History of DVT (deep vein thrombosis) On: 01-Oct-2018 Request Comments: standing order PT (Prothrobim Time) ([id number])Indication: History of DVT (deep vein thrombosis) On: 30-Sep-2018 Request Comments: INR PT (PROTHROMBIN TIME) ([id number]) : standing orderIndication: History of DVT (deep vein thrombosis) On: 30-Sep-2018 Request Comments: standing order PT (PROTHROMBIN TIME) ([id number]) : standing orderIndication: History of DVT (deep vein thrombosis) On: 29-Sep-2018 Request Comments: standing order PT (PROTHROMBIN TIME) ([id number])Indication: History of DVT (deep vein thrombosis) On: 28-Sep-2018 Request PT (PROTHROMBIN TIME) ([id number]) : standing orderIndication: History of DVT (deep vein thrombosis) On: 28-Sep-2018 Request Comments: standing order PT (PROTHROMBIN TIME) ([id number]) : standing orderIndication: History of DVT (deep vein thrombosis) On: 28-Sep-2018 Request Comments: standing order PT (PROTHROMBIN TIME) ([id number]) : standing orderIndication: History of DVT (deep vein thrombosis) On: 27-Sep-2018 Request Comments: standing order PT (PROTHROMBIN TIME) ([id number]) : standing orderIndication: History of DVT (deep vein thrombosis) On: 26-Sep-2018 Request Comments: standing order PT (PROTHROMBIN TIME) ([id number]) : standing orderIndication: History of DVT (deep vein thrombosis) On: 25-Sep-2018 Request Comments: standing order PT (PROTHROMBIN TIME) ([id number]) : standing orderIndication: History of DVT (deep vein thrombosis) On: 24-Sep-2018 Request Comments: standing order PT (PROTHROMBIN TIME) ([id number]) : standing orderIndication: History of DVT (deep vein thrombosis) On: 23-Sep-2018 Request Comments: standing order PT (PROTHROMBIN TIME) ([id number]) : standing orderIndication: History of DVT (deep vein thrombosis) On: 22-Sep-2018 Request Comments: standing order PT (PROTHROMBIN TIME) ([id number]) : standing orderIndication: History of DVT (deep vein thrombosis) On: 21-Sep-2018 Request Comments: standing order PT (PROTHROMBIN TIME) ([id number]) : standing orderIndication: History of DVT (deep vein thrombosis) On: 20-Sep-2018 Request Comments: standing order PT (PROTHROMBIN TIME) ([id number]) : standing orderIndication: History of DVT (deep vein thrombosis) On: 19-Sep-2018 Request Comments: standing order PT (PROTHROMBIN TIME) ([id number]) : standing orderIndication: History of DVT (deep vein thrombosis) On: 18-Sep-2018 Request Comments: standing order PT (PROTHROMBIN TIME) ([id number]) : standing orderIndication: History of DVT (deep vein thrombosis) On: 17-Sep-2018 Request Comments: standing order PT (PROTHROMBIN TIME) ([id number]) : standing orderIndication: History of DVT (deep vein thrombosis) On: 17-Sep-2018 Request Comments: standing order PT (PROTHROMBIN TIME) ([id number]) : standing orderIndication: History of DVT (deep vein thrombosis) On: 16-Sep-2018 Request Comments: standing order PT (PROTHROMBIN TIME) ([id number]) : standing orderIndication: History of DVT (deep vein thrombosis) On: 16-Sep-2018 Request Comments: standing order PT (PROTHROMBIN TIME) ([id number]) : standing orderIndication: History of DVT (deep vein thrombosis) On: 15-Sep-2018 Request Comments: standing order PT (PROTHROMBIN TIME) ([id number]) : standing orderIndication: History of DVT (deep vein thrombosis) On: 15-Sep-2018 Request Comments: standing order PT (PROTHROMBIN TIME) ([id number]) : standing orderIndication: History of DVT (deep vein thrombosis) On: 14-Sep-2018 Request Comments: standing order PT (PROTHROMBIN TIME) ([id number]) : standing orderIndication: History of DVT (deep vein thrombosis) On: 14-Sep-2018 Request Comments: standing order PT (PROTHROMBIN TIME) ([id number]) : standing orderIndication: History of DVT (deep vein thrombosis) On: 13-Sep-2018 Request Comments: standing order PT (PROTHROMBIN TIME) ([id number]) : standing orderIndication: History of DVT (deep vein thrombosis) On: 13-Sep-2018 Request Comments: standing order PT (PROTHROMBIN TIME) ([id number]) : standing orderIndication: History of DVT (deep vein thrombosis) On: 12-Sep-2018 Request Comments: standing order PT (PROTHROMBIN TIME) ([id number]) : standing orderIndication: History of DVT (deep vein thrombosis) On: 12-Sep-2018 Request Comments: standing order PT (PROTHROMBIN TIME) ([id number]) : standing orderIndication: History of DVT (deep vein thrombosis) On: 11-Sep-2018 Request Comments: standing order PT (PROTHROMBIN TIME) ([id number]) : standing orderIndication: History of DVT (deep vein thrombosis) On: 11-Sep-2018 Request Comments: standing order PT (PROTHROMBIN TIME) ([id number]) : standing orderIndication: History of DVT (deep vein thrombosis) On: 10-Sep-2018 Request Comments: standing order PT (PROTHROMBIN TIME) ([id number]) : standing orderIndication: History of DVT (deep vein thrombosis) On: 10-Sep-2018 Request Comments: standing order PT (PROTHROMBIN TIME) ([id number]) : standing orderIndication: History of DVT (deep vein thrombosis) On: 09-Sep-2018 Request Comments: standing order PT (PROTHROMBIN TIME) ([id number]) : standing orderIndication: History of DVT (deep vein thrombosis) On: 09-Sep-2018 Request Comments: standing order PT (PROTHROMBIN TIME) ([id number]) : standing orderIndication: History of DVT (deep vein thrombosis) On: 08-Sep-2018 Request Comments: standing order PT (PROTHROMBIN TIME) ([id number]) : standing orderIndication: History of DVT (deep vein thrombosis) On: 08-Sep-2018 Request Comments: standing order PT (PROTHROMBIN TIME) ([id number]) : standing orderIndication: History of DVT (deep vein thrombosis) On: 07-Sep-2018 Request Comments: standing order PT (PROTHROMBIN TIME) ([id number]) : standing orderIndication: History of DVT (deep vein thrombosis) On: 07-Sep-2018 Request Comments: standing order PT (PROTHROMBIN TIME) ([id number]) : standing orderIndication: History of DVT (deep vein thrombosis) On: 06-Sep-2018 Request Comments: standing order PT (PROTHROMBIN TIME) ([id number]) : standing orderIndication: History of DVT (deep vein thrombosis) On: 06-Sep-2018 Request Comments: standing order PT (PROTHROMBIN TIME) ([id number]) : standing orderIndication: History of DVT (deep vein thrombosis) On: 05-Sep-2018 Request Comments: standing order PT (PROTHROMBIN TIME) ([id number]) : standing orderIndication: History of DVT (deep vein thrombosis) On: 05-Sep-2018 Request Comments: standing order PT (PROTHROMBIN TIME) ([id number]) : standing orderIndication: History of DVT (deep vein thrombosis) On: 04-Sep-2018 Request Comments: standing order PT (PROTHROMBIN TIME) ([id number]) : standing orderIndication: History of DVT (deep vein thrombosis) On: 04-Sep-2018 Request Comments: standing order PT (PROTHROMBIN TIME) ([id number]) : standing orderIndication: History of DVT (deep vein thrombosis) On: 03-Sep-2018 Request Comments: standing order PT (PROTHROMBIN TIME) ([id number]) : standing orderIndication: History of DVT (deep vein thrombosis) On: 03-Sep-2018 Request Comments: standing order PT (PROTHROMBIN TIME) ([id number]) : standing orderIndication: History of DVT (deep vein thrombosis) On: 02-Sep-2018 Request Comments: standing order PT (PROTHROMBIN TIME) ([id number]) : standing orderIndication: History of DVT (deep vein thrombosis) On: 02-Sep-2018 Request Comments: standing order PT (PROTHROMBIN TIME) ([id number]) : standing orderIndication: History of DVT (deep vein thrombosis) On: 01-Sep-2018 Request Comments: standing order PT (PROTHROMBIN TIME) ([id number]) : standing orderIndication: History of DVT (deep vein thrombosis) On: 01-Sep-2018 Request Comments: standing order PT (Prothrobim Time) ([id number])Indication: History of DVT (deep vein thrombosis) On: 31-Aug-2018 Request Comments: INR PT (PROTHROMBIN TIME) ([id number]) : standing orderIndication: History of DVT (deep vein thrombosis) On: 31-Aug-2018 Request Comments: standing order PT (PROTHROMBIN TIME) ([id number]) : standing orderIndication: History of DVT (deep vein thrombosis) On: 31-Aug-2018 Request Comments: standing order PT (PROTHROMBIN TIME) ([id number]) : standing orderIndication: History of DVT (deep vein thrombosis) On: 30-Aug-2018 Request Comments: standing order PT (PROTHROMBIN TIME) ([id number]) : standing orderIndication: History of DVT (deep vein thrombosis) On: 30-Aug-2018 Request Comments: standing order PT (PROTHROMBIN TIME) ([id number])Indication: History of DVT (deep vein thrombosis) On: 29-Aug-2018 Request PT (PROTHROMBIN TIME) ([id number]) : standing orderIndication: History of DVT (deep vein thrombosis) On: 29-Aug-2018 Request Comments: standing order PT (PROTHROMBIN TIME) ([id number]) : standing orderIndication: History of DVT (deep vein thrombosis) On: 29-Aug-2018 Request Comments: standing order PT (PROTHROMBIN TIME) ([id number]) : standing orderIndication: History of DVT (deep vein thrombosis) On: 29-Aug-2018 Request Comments: standing order PT (PROTHROMBIN TIME) ([id number]) : standing orderIndication: History of DVT (deep vein thrombosis) On: 28-Aug-2018 Request Comments: standing order PT (PROTHROMBIN TIME) ([id number]) : standing orderIndication: History of DVT (deep vein thrombosis) On: 28-Aug-2018 Request Comments: standing order PT (PROTHROMBIN TIME) ([id number]) : standing orderIndication: History of DVT (deep vein thrombosis) On: 27-Aug-2018 Request Comments: standing order PT (PROTHROMBIN TIME) ([id number]) : standing orderIndication: History of DVT (deep vein thrombosis) On: 27-Aug-2018 Request Comments: standing order PT (PROTHROMBIN TIME) ([id number]) : standing orderIndication: History of DVT (deep vein thrombosis) On: 26-Aug-2018 Request Comments: standing order PT (PROTHROMBIN TIME) ([id number]) : standing orderIndication: History of DVT (deep vein thrombosis) On: 26-Aug-2018 Request Comments: standing order PT (PROTHROMBIN TIME) ([id number]) : standing orderIndication: History of DVT (deep vein thrombosis) On: 25-Aug-2018 Request Comments: standing order PT (PROTHROMBIN TIME) ([id number]) : standing orderIndication: History of DVT (deep vein thrombosis) On: 25-Aug-2018 Request Comments: standing order PT (PROTHROMBIN TIME) ([id number]) : standing orderIndication: History of DVT (deep vein thrombosis) On: 24-Aug-2018 Request Comments: standing order PT (PROTHROMBIN TIME) ([id number]) : standing orderIndication: History of DVT (deep vein thrombosis) On: 24-Aug-2018 Request Comments: standing order PT (PROTHROMBIN TIME) ([id number]) : standing orderIndication: History of DVT (deep vein thrombosis) On: 23-Aug-2018 Request Comments: standing order PT (PROTHROMBIN TIME) ([id number]) : standing orderIndication: History of DVT (deep vein thrombosis) On: 23-Aug-2018 Request Comments: standing order PT (PROTHROMBIN TIME) ([id number]) : standing orderIndication: History of DVT (deep vein thrombosis) On: 22-Aug-2018 Request Comments: standing order PT (PROTHROMBIN TIME) ([id number]) : standing orderIndication: History of DVT (deep vein thrombosis) On: 22-Aug-2018 Request Comments: standing order PT (PROTHROMBIN TIME) ([id number]) : standing orderIndication: History of DVT (deep vein thrombosis) On: 21-Aug-2018 Request Comments: standing order PT (PROTHROMBIN TIME) ([id number]) : standing orderIndication: History of DVT (deep vein thrombosis) On: 21-Aug-2018 Request Comments: standing order PT (PROTHROMBIN TIME) ([id number]) : standing orderIndication: History of DVT (deep vein thrombosis) On: 20-Aug-2018 Request Comments: standing order PT (PROTHROMBIN TIME) ([id number]) : standing orderIndication: History of DVT (deep vein thrombosis) On: 20-Aug-2018 Request Comments: standing order PT (PROTHROMBIN TIME) ([id number]) : standing orderIndication: History of DVT (deep vein thrombosis) On: 19-Aug-2018 Request Comments: standing order PT (PROTHROMBIN TIME) ([id number]) : standing orderIndication: History of DVT (deep vein thrombosis) On: 19-Aug-2018 Request Comments: standing order PT (PROTHROMBIN TIME) ([id number]) : standing orderIndication: History of DVT (deep vein thrombosis) On: 18-Aug-2018 Request Comments: standing order PT (PROTHROMBIN TIME) ([id number]) : standing orderIndication: History of DVT (deep vein thrombosis) On: 18-Aug-2018 Request Comments: standing order PT (PROTHROMBIN TIME) ([id number]) : standing orderIndication: History of DVT (deep vein thrombosis) On: 17-Aug-2018 Request Comments: standing order PT (PROTHROMBIN TIME) ([id number]) : standing orderIndication: History of DVT (deep vein thrombosis) On: 17-Aug-2018 Request Comments: standing order PT (PROTHROMBIN TIME) ([id number]) : standing orderIndication: History of DVT (deep vein thrombosis) On: 16-Aug-2018 Request Comments: standing order PT (PROTHROMBIN TIME) ([id number]) : standing orderIndication: History of DVT (deep vein thrombosis) On: 16-Aug-2018 Request Comments: standing order PT (PROTHROMBIN TIME) ([id number]) : standing orderIndication: History of DVT (deep vein thrombosis) On: 15-Aug-2018 Request Comments: standing order PT (PROTHROMBIN TIME) ([id number]) : standing orderIndication: History of DVT (deep vein thrombosis) On: 15-Aug-2018 Request Comments: standing order PT (PROTHROMBIN TIME) ([id number]) : standing orderIndication: History of DVT (deep vein thrombosis) On: 14-Aug-2018 Request Comments: standing order PT (PROTHROMBIN TIME) ([id number]) : standing orderIndication: History of DVT (deep vein thrombosis) On: 14-Aug-2018 Request Comments: standing order PT (PROTHROMBIN TIME) ([id number]) : standing orderIndication: History of DVT (deep vein thrombosis) On: 13-Aug-2018 Request Comments: standing order PT (PROTHROMBIN TIME) ([id number]) : standing orderIndication: History of DVT (deep vein thrombosis) On: 13-Aug-2018 Request Comments: standing order PT (PROTHROMBIN TIME) ([id number]) : standing orderIndication: History of DVT (deep vein thrombosis) On: 12-Aug-2018 Request Comments: standing order PT (PROTHROMBIN TIME) ([id number]) : standing orderIndication: History of DVT (deep vein thrombosis) On: 12-Aug-2018 Request Comments: standing order PT (PROTHROMBIN TIME) ([id number]) : standing orderIndication: History of DVT (deep vein thrombosis) On: 11-Aug-2018 Request Comments: standing order PT (PROTHROMBIN TIME) ([id number]) : standing orderIndication: History of DVT (deep vein thrombosis) On: 11-Aug-2018 Request Comments: standing order PT (PROTHROMBIN TIME) ([id number]) : standing orderIndication: History of DVT (deep vein thrombosis) On: 10-Aug-2018 Request Comments: standing order PT (PROTHROMBIN TIME) ([id number]) : standing orderIndication: History of DVT (deep vein thrombosis) On: 10-Aug-2018 Request Comments: standing order PT (PROTHROMBIN TIME) ([id number]) : standing orderIndication: History of DVT (deep vein thrombosis) On: 09-Aug-2018 Request Comments: standing order PT (PROTHROMBIN TIME) ([id number]) : standing orderIndication: History of DVT (deep vein thrombosis) On: 09-Aug-2018 Request Comments: standing order PT (PROTHROMBIN TIME) ([id number]) : standing orderIndication: History of DVT (deep vein thrombosis) On: 08-Aug-2018 Request Comments: standing order PT (PROTHROMBIN TIME) ([id number]) : standing orderIndication: History of DVT (deep vein thrombosis) On: 08-Aug-2018 Request Comments: standing order PT (PROTHROMBIN TIME) ([id number]) : standing orderIndication: History of DVT (deep vein thrombosis) On: 07-Aug-2018 Request Comments: standing order PT (PROTHROMBIN TIME) ([id number]) : standing orderIndication: History of DVT (deep vein thrombosis) On: 07-Aug-2018 Request Comments: standing order PT (PROTHROMBIN TIME) ([id number]) : standing orderIndication: History of DVT (deep vein thrombosis) On: 06-Aug-2018 Request Comments: standing order PT (PROTHROMBIN TIME) ([id number]) : standing orderIndication: History of DVT (deep vein thrombosis) On: 06-Aug-2018 Request Comments: standing order PT (PROTHROMBIN TIME) ([id number]) : standing orderIndication: History of DVT (deep vein thrombosis) On: 05-Aug-2018 Request Comments: standing order PT (PROTHROMBIN TIME) ([id number]) : standing orderIndication: History of DVT (deep vein thrombosis) On: 05-Aug-2018 Request Comments: standing order PT (PROTHROMBIN TIME) ([id number]) : standing orderIndication: History of DVT (deep vein thrombosis) On: 04-Aug-2018 Request Comments: standing order PT (PROTHROMBIN TIME) ([id number]) : standing orderIndication: History of DVT (deep vein thrombosis) On: 04-Aug-2018 Request Comments: standing order PT (PROTHROMBIN TIME) ([id number]) : standing orderIndication: History of DVT (deep vein thrombosis) On: 03-Aug-2018 Request Comments: standing order PT (PROTHROMBIN TIME) ([id number]) : standing orderIndication: History of DVT (deep vein thrombosis) On: 03-Aug-2018 Request Comments: standing order PT (PROTHROMBIN TIME) ([id number]) : standing orderIndication: History of DVT (deep vein thrombosis) On: 02-Aug-2018 Request Comments: standing order PT (PROTHROMBIN TIME) ([id number]) : standing orderIndication: History of DVT (deep vein thrombosis) On: 02-Aug-2018 Request Comments: standing order PT (Prothrobim Time) ([id number])Indication: History of DVT (deep vein thrombosis) On: 01-Aug-2018 Request Comments: INR PT (PROTHROMBIN TIME) ([id number]) : standing orderIndication: History of DVT (deep vein thrombosis) On: 01-Aug-2018 Request Comments: standing order PT (PROTHROMBIN TIME) ([id number]) : standing orderIndication: History of DVT (deep vein thrombosis) On: 01-Aug-2018 Request Comments: standing order PT (PROTHROMBIN TIME) ([id number]) : standing orderIndication: History of DVT (deep vein thrombosis) On: 31-Jul-2018 Request Comments: standing order PT (PROTHROMBIN TIME) ([id number]) : standing orderIndication: History of DVT (deep vein thrombosis) On: 31-Jul-2018 Request Comments: standing order PT (PROTHROMBIN TIME) ([id number])Indication: History of DVT (deep vein thrombosis) On: 30-Jul-2018 Request PT (PROTHROMBIN TIME) ([id number]) : standing orderIndication: History of DVT (deep vein thrombosis) On: 30-Jul-2018 Request Comments: standing order PT (PROTHROMBIN TIME) ([id number]) : standing orderIndication: History of DVT (deep vein thrombosis) On: 30-Jul-2018 Request Comments: standing order PT (PROTHROMBIN TIME) ([id number]) : standing orderIndication: History of DVT (deep vein thrombosis) On: 30-Jul-2018 Request Comments: standing order PT (PROTHROMBIN TIME) ([id number]) : standing orderIndication: History of DVT (deep vein thrombosis) On: 29-Jul-2018 Request Comments: standing order PT (PROTHROMBIN TIME) ([id number]) : standing orderIndication: History of DVT (deep vein thrombosis) On: 29-Jul-2018 Request Comments: standing order PT (PROTHROMBIN TIME) ([id number]) : standing orderIndication: History of DVT (deep vein thrombosis) On: 28-Jul-2018 Request Comments: standing order PT (PROTHROMBIN TIME) ([id number]) : standing orderIndication: History of DVT (deep vein thrombosis) On: 28-Jul-2018 Request Comments: standing order PT (PROTHROMBIN TIME) ([id number]) : standing orderIndication: History of DVT (deep vein thrombosis) On: 27-Jul-2018 Request Comments: standing order PT (PROTHROMBIN TIME) ([id number]) : standing orderIndication: History of DVT (deep vein thrombosis) On: 27-Jul-2018 Request Comments: standing order PT (PROTHROMBIN TIME) ([id number]) : standing orderIndication: History of DVT (deep vein thrombosis) On: 26-Jul-2018 Request Comments: standing order PT (PROTHROMBIN TIME) ([id number]) : standing orderIndication: History of DVT (deep vein thrombosis) On: 26-Jul-2018 Request Comments: standing order PT (PROTHROMBIN TIME) ([id number]) : standing orderIndication: History of DVT (deep vein thrombosis) On: 25-Jul-2018 Request Comments: standing order PT (PROTHROMBIN TIME) ([id number]) : standing orderIndication: History of DVT (deep vein thrombosis) On: 25-Jul-2018 Request Comments: standing order PT (PROTHROMBIN TIME) ([id number]) : standing orderIndication: History of DVT (deep vein thrombosis) On: 24-Jul-2018 Request Comments: standing order PT (PROTHROMBIN TIME) ([id number]) : standing orderIndication: History of DVT (deep vein thrombosis) On: 24-Jul-2018 Request Comments: standing order PT (PROTHROMBIN TIME) ([id number]) : standing orderIndication: History of DVT (deep vein thrombosis) On: 23-Jul-2018 Request Comments: standing order PT (PROTHROMBIN TIME) ([id number]) : standing orderIndication: History of DVT (deep vein thrombosis) On: 23-Jul-2018 Request Comments: standing order PT (PROTHROMBIN TIME) ([id number]) : standing orderIndication: History of DVT (deep vein thrombosis) On: 22-Jul-2018 Request Comments: standing order PT (PROTHROMBIN TIME) ([id number]) : standing orderIndication: History of DVT (deep vein thrombosis) On: 22-Jul-2018 Request Comments: standing order PT (PROTHROMBIN TIME) ([id number]) : standing orderIndication: History of DVT (deep vein thrombosis) On: 21-Jul-2018 Request Comments: standing order PT (PROTHROMBIN TIME) ([id number]) : standing orderIndication: History of DVT (deep vein thrombosis) On: 21-Jul-2018 Request Comments: standing order PT (PROTHROMBIN TIME) ([id number]) : standing orderIndication: History of DVT (deep vein thrombosis) On: 20-Jul-2018 Request Comments: standing order PT (PROTHROMBIN TIME) ([id number]) : standing orderIndication: History of DVT (deep vein thrombosis) On: 20-Jul-2018 Request Comments: standing order PT (PROTHROMBIN TIME) ([id number]) : standing orderIndication: History of DVT (deep vein thrombosis) On: 19-Jul-2018 Request Comments: standing order PT (PROTHROMBIN TIME) ([id number]) : standing orderIndication: History of DVT (deep vein thrombosis) On: 19-Jul-2018 Request Comments: standing order PT (PROTHROMBIN TIME) ([id number]) : standing orderIndication: History of DVT (deep vein thrombosis) On: 18-Jul-2018 Request Comments: standing order PT (PROTHROMBIN TIME) ([id number]) : standing orderIndication: History of DVT (deep vein thrombosis) On: 18-Jul-2018 Request Comments: standing order CBC, Platelets & Auto Diff ([id number])Indication: Leukopenia On: 17-Jul-2018 Request PT (PROTHROMBIN TIME) ([id number]) : standing orderIndication: History of DVT (deep vein thrombosis) On: 17-Jul-2018 Request Comments: standing order PT (PROTHROMBIN TIME) ([id number]) : standing orderIndication: History of DVT (deep vein thrombosis) On: 17-Jul-2018 Request Comments: standing order PT (PROTHROMBIN TIME) ([id number]) : standing orderIndication: History of DVT (deep vein thrombosis) On: 16-Jul-2018 Request Comments: standing order PT (PROTHROMBIN TIME) ([id number]) : standing orderIndication: History of DVT (deep vein thrombosis) On: 16-Jul-2018 Request Comments: standing order PT (PROTHROMBIN TIME) ([id number]) : standing orderIndication: History of DVT (deep vein thrombosis) On: 15-Jul-2018 Request Comments: standing order PT (PROTHROMBIN TIME) ([id number]) : standing orderIndication: History of DVT (deep vein thrombosis) On: 15-Jul-2018 Request Comments: standing order PT (PROTHROMBIN TIME) ([id number]) : standing orderIndication: History of DVT (deep vein thrombosis) On: 14-Jul-2018 Request Comments: standing order PT (PROTHROMBIN TIME) ([id number]) : standing orderIndication: History of DVT (deep vein thrombosis) On: 14-Jul-2018 Request Comments: standing order PT (PROTHROMBIN TIME) ([id number]) : standing orderIndication: History of DVT (deep vein thrombosis) On: 13-Jul-2018 Request Comments: standing order PT (PROTHROMBIN TIME) ([id number]) : standing orderIndication: History of DVT (deep vein thrombosis) On: 13-Jul-2018 Request Comments: standing order PT (PROTHROMBIN TIME) ([id number]) : standing orderIndication: History of DVT (deep vein thrombosis) On: 12-Jul-2018 Request Comments: standing order PT (PROTHROMBIN TIME) ([id number]) : standing orderIndication: History of DVT (deep vein thrombosis) On: 12-Jul-2018 Request Comments: standing order PT (PROTHROMBIN TIME) ([id number]) : standing orderIndication: History of DVT (deep vein thrombosis) On: 11-Jul-2018 Request Comments: standing order PT (PROTHROMBIN TIME) ([id number]) : standing orderIndication: History of DVT (deep vein thrombosis) On: 11-Jul-2018 Request Comments: standing order PT (PROTHROMBIN TIME) ([id number]) : standing orderIndication: History of DVT (deep vein thrombosis) On: 10-Jul-2018 Request Comments: standing order PT (PROTHROMBIN TIME) ([id number]) : standing orderIndication: History of DVT (deep vein thrombosis) On: 10-Jul-2018 Request Comments: standing order PT (PROTHROMBIN TIME) ([id number]) : standing orderIndication: History of DVT (deep vein thrombosis) On: 09-Jul-2018 Request Comments: standing order PT (PROTHROMBIN TIME) ([id number]) : standing orderIndication: History of DVT (deep vein thrombosis) On: 09-Jul-2018 Request Comments: standing order PT (PROTHROMBIN TIME) ([id number]) : standing orderIndication: History of DVT (deep vein thrombosis) On: 08-Jul-2018 Request Comments: standing order PT (PROTHROMBIN TIME) ([id number]) : standing orderIndication: History of DVT (deep vein thrombosis) On: 08-Jul-2018 Request Comments: standing order PT (PROTHROMBIN TIME) ([id number]) : standing orderIndication: History of DVT (deep vein thrombosis) On: 07-Jul-2018 Request Comments: standing order PT (PROTHROMBIN TIME) ([id number]) : standing orderIndication: History of DVT (deep vein thrombosis) On: 07-Jul-2018 Request Comments: standing order PT (PROTHROMBIN TIME) ([id number]) : standing orderIndication: History of DVT (deep vein thrombosis) On: 06-Jul-2018 Request Comments: standing order PT (PROTHROMBIN TIME) ([id number]) : standing orderIndication: History of DVT (deep vein thrombosis) On: 06-Jul-2018 Request Comments: standing order PT (PROTHROMBIN TIME) ([id number]) : standing orderIndication: History of DVT (deep vein thrombosis) On: 05-Jul-2018 Request Comments: standing order PT (PROTHROMBIN TIME) ([id number]) : standing orderIndication: History of DVT (deep vein thrombosis) On: 05-Jul-2018 Request Comments: standing order PT (PROTHROMBIN TIME) ([id number]) : standing orderIndication: History of DVT (deep vein thrombosis) On: 04-Jul-2018 Request Comments: standing order PT (PROTHROMBIN TIME) ([id number]) : standing orderIndication: History of DVT (deep vein thrombosis) On: 04-Jul-2018 Request Comments: standing order PT (PROTHROMBIN TIME) ([id number]) : standing orderIndication: History of DVT (deep vein thrombosis) On: 03-Jul-2018 Request Comments: standing order PT (PROTHROMBIN TIME) ([id number]) : standing orderIndication: History of DVT (deep vein thrombosis) On: 03-Jul-2018 Request Comments: standing order PT (Prothrobim Time) ([id number])Indication: History of DVT (deep vein thrombosis) On: 02-Jul-2018 Request Comments: INR PT (PROTHROMBIN TIME) ([id number]) : standing orderIndication: History of DVT (deep vein thrombosis) On: 02-Jul-2018 Request Comments: standing order PT (PROTHROMBIN TIME) ([id number]) : standing orderIndication: History of DVT (deep vein thrombosis) On: 02-Jul-2018 Request Comments: standing order PT (PROTHROMBIN TIME) ([id number]) : standing orderIndication: History of DVT (deep vein thrombosis) On: 01-Jul-2018 Request Comments: standing order PT (PROTHROMBIN TIME) ([id number]) : standing orderIndication: History of DVT (deep vein thrombosis) On: 01-Jul-2018 Request Comments: standing order PT (PROTHROMBIN TIME) ([id number])Indication: History of DVT (deep vein thrombosis) On: 30-Jun-2018 Request PT (PROTHROMBIN TIME) ([id number]) : standing orderIndication: History of DVT (deep vein thrombosis) On: 30-Jun-2018 Request Comments: standing order PT (PROTHROMBIN TIME) ([id number]) : standing orderIndication: History of DVT (deep vein thrombosis) On: 30-Jun-2018 Request Comments: standing order PT (PROTHROMBIN TIME) ([id number]) : standing orderIndication: History of DVT (deep vein thrombosis) On: 30-Jun-2018 Request Comments: standing order PT (PROTHROMBIN TIME) ([id number]) : standing orderIndication: History of DVT (deep vein thrombosis) On: 29-Jun-2018 Request Comments: standing order PT (PROTHROMBIN TIME) ([id number]) : standing orderIndication: History of DVT (deep vein thrombosis) On: 29-Jun-2018 Request Comments: standing order PT (PROTHROMBIN TIME) ([id number]) : standing orderIndication: History of DVT (deep vein thrombosis) On: 28-Jun-2018 Request Comments: standing order PT (PROTHROMBIN TIME) ([id number]) : standing orderIndication: History of DVT (deep vein thrombosis) On: 28-Jun-2018 Request Comments: standing order PT (PROTHROMBIN TIME) ([id number]) : standing orderIndication: History of DVT (deep vein thrombosis) On: 27-Jun-2018 Request Comments: standing order PT (PROTHROMBIN TIME) ([id number]) : standing orderIndication: History of DVT (deep vein thrombosis) On: 27-Jun-2018 Request Comments: standing order PT (PROTHROMBIN TIME) ([id number]) : standing orderIndication: History of DVT (deep vein thrombosis) On: 26-Jun-2018 Request Comments: standing order PT (PROTHROMBIN TIME) ([id number]) : standing orderIndication: History of DVT (deep vein thrombosis) On: 26-Jun-2018 Request Comments: standing order PT (PROTHROMBIN TIME) ([id number]) : standing orderIndication: History of DVT (deep vein thrombosis) On: 25-Jun-2018 Request Comments: standing order PT (PROTHROMBIN TIME) ([id number]) : standing orderIndication: History of DVT (deep vein thrombosis) On: 25-Jun-2018 Request Comments: standing order PT (PROTHROMBIN TIME) ([id number]) : standing orderIndication: History of DVT (deep vein thrombosis) On: 24-Jun-2018 Request Comments: standing order PT (PROTHROMBIN TIME) ([id number]) : standing orderIndication: History of DVT (deep vein thrombosis) On: 24-Jun-2018 Request Comments: standing order PT (PROTHROMBIN TIME) ([id number]) : standing orderIndication: History of DVT (deep vein thrombosis) On: 23-Jun-2018 Request Comments: standing order PT (PROTHROMBIN TIME) ([id number]) : standing orderIndication: History of DVT (deep vein thrombosis) On: 23-Jun-2018 Request Comments: standing order PT (PROTHROMBIN TIME) ([id number]) : standing orderIndication: History of DVT (deep vein thrombosis) On: 22-Jun-2018 Request Comments: standing order PT (PROTHROMBIN TIME) ([id number]) : standing orderIndication: History of DVT (deep vein thrombosis) On: 22-Jun-2018 Request Comments: standing order PT (PROTHROMBIN TIME) ([id number]) : standing orderIndication: History of DVT (deep vein thrombosis) On: 21-Jun-2018 Request Comments: standing order PT (PROTHROMBIN TIME) ([id number]) : standing orderIndication: History of DVT (deep vein thrombosis) On: 21-Jun-2018 Request Comments: standing order PT (PROTHROMBIN TIME) ([id number]) : standing orderIndication: History of DVT (deep vein thrombosis) On: 20-Jun-2018 Request Comments: standing order PT (PROTHROMBIN TIME) ([id number]) : standing orderIndication: History of DVT (deep vein thrombosis) On: 20-Jun-2018 Request Comments: standing order PT (PROTHROMBIN TIME) ([id number]) : standing orderIndication: History of DVT (deep vein thrombosis) On: 19-Jun-2018 Request Comments: standing order PT (PROTHROMBIN TIME) ([id number]) : standing orderIndication: History of DVT (deep vein thrombosis) On: 19-Jun-2018 Request Comments: standing order PT (PROTHROMBIN TIME) ([id number]) : standing orderIndication: History of DVT (deep vein thrombosis) On: 18-Jun-2018 Request Comments: standing order PT (PROTHROMBIN TIME) ([id number]) : standing orderIndication: History of DVT (deep vein thrombosis) On: 18-Jun-2018 Request Comments: standing order PT (PROTHROMBIN TIME) ([id number]) : standing orderIndication: History of DVT (deep vein thrombosis) On: 17-Jun-2018 Request Comments: standing order PT (PROTHROMBIN TIME) ([id number]) : standing orderIndication: History of DVT (deep vein thrombosis) On: 17-Jun-2018 Request Comments: standing order PT (PROTHROMBIN TIME) ([id number]) : standing orderIndication: History of DVT (deep vein thrombosis) On: 16-Jun-2018 Request Comments: standing order PT (PROTHROMBIN TIME) ([id number]) : standing orderIndication: History of DVT (deep vein thrombosis) On: 16-Jun-2018 Request Comments: standing order PT (PROTHROMBIN TIME) ([id number]) : standing orderIndication: History of DVT (deep vein thrombosis) On: 15-Jun-2018 Request Comments: standing order PT (PROTHROMBIN TIME) ([id number]) : standing orderIndication: History of DVT (deep vein thrombosis) On: 15-Jun-2018 Request Comments: standing order PT (PROTHROMBIN TIME) ([id number]) : standing orderIndication: History of DVT (deep vein thrombosis) On: 14-Jun-2018 Request Comments: standing order PT (PROTHROMBIN TIME) ([id number]) : standing orderIndication: History of DVT (deep vein thrombosis) On: 14-Jun-2018 Request Comments: standing order PT (PROTHROMBIN TIME) ([id number]) : standing orderIndication: History of DVT (deep vein thrombosis) On: 13-Jun-2018 Request Comments: standing order PT (PROTHROMBIN TIME) ([id number]) : standing orderIndication: History of DVT (deep vein thrombosis) On: 13-Jun-2018 Request Comments: standing order PT (PROTHROMBIN TIME) ([id number]) : standing orderIndication: History of DVT (deep vein thrombosis) On: 12-Jun-2018 Request Comments: standing order PT (PROTHROMBIN TIME) ([id number]) : standing orderIndication: History of DVT (deep vein thrombosis) On: 12-Jun-2018 Request Comments: standing order PT (PROTHROMBIN TIME) ([id number]) : standing orderIndication: History of DVT (deep vein thrombosis) On: 11-Jun-2018 Request Comments: standing order PT (PROTHROMBIN TIME) ([id number]) : standing orderIndication: History of DVT (deep vein thrombosis) On: 11-Jun-2018 Request Comments: standing order PT (PROTHROMBIN TIME) ([id number]) : standing orderIndication: History of DVT (deep vein thrombosis) On: 10-Jun-2018 Request Comments: standing order PT (PROTHROMBIN TIME) ([id number]) : standing orderIndication: History of DVT (deep vein thrombosis) On: 10-Jun-2018 Request Comments: standing order PT (PROTHROMBIN TIME) ([id number]) : standing orderIndication: History of DVT (deep vein thrombosis) On: 09-Jun-2018 Request Comments: standing order PT (PROTHROMBIN TIME) ([id number]) : standing orderIndication: History of DVT (deep vein thrombosis) On: 09-Jun-2018 Request Comments: standing order PT (PROTHROMBIN TIME) ([id number]) : standing orderIndication: History of DVT (deep vein thrombosis) On: 08-Jun-2018 Request Comments: standing order PT (PROTHROMBIN TIME) ([id number]) : standing orderIndication: History of DVT (deep vein thrombosis) On: 08-Jun-2018 Request Comments: standing order PT (PROTHROMBIN TIME) ([id number]) : standing orderIndication: History of DVT (deep vein thrombosis) On: 07-Jun-2018 Request Comments: standing order PT (PROTHROMBIN TIME) ([id number]) : standing orderIndication: History of DVT (deep vein thrombosis) On: 07-Jun-2018 Request Comments: standing order PT (PROTHROMBIN TIME) ([id number]) : standing orderIndication: History of DVT (deep vein thrombosis) On: 06-Jun-2018 Request Comments: standing order PT (PROTHROMBIN TIME) ([id number]) : standing orderIndication: History of DVT (deep vein thrombosis) On: 06-Jun-2018 Request Comments: standing order PT (PROTHROMBIN TIME) ([id number]) : standing orderIndication: History of DVT (deep vein thrombosis) On: 05-Jun-2018 Request Comments: standing order PT (PROTHROMBIN TIME) ([id number]) : standing orderIndication: History of DVT (deep vein thrombosis) On: 05-Jun-2018 Request Comments: standing order PT (PROTHROMBIN TIME) ([id number]) : standing orderIndication: History of DVT (deep vein thrombosis) On: 04-Jun-2018 Request Comments: standing order PT (PROTHROMBIN TIME) ([id number]) : standing orderIndication: History of DVT (deep vein thrombosis) On: 04-Jun-2018 Request Comments: standing order PT (PROTHROMBIN TIME) ([id number]) : standing orderIndication: History of DVT (deep vein thrombosis) On: 03-Jun-2018 Request Comments: standing order PT (PROTHROMBIN TIME) ([id number]) : standing orderIndication: History of DVT (deep vein thrombosis) On: 03-Jun-2018 Request Comments: standing order PT (Prothrobim Time) ([id number])Indication: History of DVT (deep vein thrombosis) On: 02-Jun-2018 Request Comments: INR PT (PROTHROMBIN TIME) ([id number]) : standing orderIndication: History of DVT (deep vein thrombosis) On: 02-Jun-2018 Request Comments: standing order PT (PROTHROMBIN TIME) ([id number]) : standing orderIndication: History of DVT (deep vein thrombosis) On: 02-Jun-2018 Request Comments: standing order PT (PROTHROMBIN TIME) ([id number]) : standing orderIndication: History of DVT (deep vein thrombosis) On: 01-Jun-2018 Request Comments: standing order PT (PROTHROMBIN TIME) ([id number]) : standing orderIndication: History of DVT (deep vein thrombosis) On: 01-Jun-2018 Request Comments: standing order PT (PROTHROMBIN TIME) ([id number])Indication: History of DVT (deep vein thrombosis) On: 31-May-2018 Request PT (PROTHROMBIN TIME) ([id number]) : standing orderIndication: History of DVT (deep vein thrombosis) On: 31-May-2018 Request Comments: standing order PT (PROTHROMBIN TIME) ([id number]) : standing orderIndication: History of DVT (deep vein thrombosis) On: 31-May-2018 Request Comments: standing order PT (PROTHROMBIN TIME) ([id number]) : standing orderIndication: History of DVT (deep vein thrombosis) On: 31-May-2018 Request Comments: standing order PT (PROTHROMBIN TIME) ([id number]) : standing orderIndication: History of DVT (deep vein thrombosis) On: 30-May-2018 Request Comments: standing order PT (PROTHROMBIN TIME) ([id number]) : standing orderIndication: History of DVT (deep vein thrombosis) On: 30-May-2018 Request Comments: standing order PT (PROTHROMBIN TIME) ([id number]) : standing orderIndication: History of DVT (deep vein thrombosis) On: 29-May-2018 Request Comments: standing order PT (PROTHROMBIN TIME) ([id number]) : standing orderIndication: History of DVT (deep vein thrombosis) On: 29-May-2018 Request Comments: standing order PT (PROTHROMBIN TIME) ([id number]) : standing orderIndication: History of DVT (deep vein thrombosis) On: 28-May-2018 Request Comments: standing order PT (PROTHROMBIN TIME) ([id number]) : standing orderIndication: History of DVT (deep vein thrombosis) On: 28-May-2018 Request Comments: standing order PT (PROTHROMBIN TIME) ([id number]) : standing orderIndication: History of DVT (deep vein thrombosis) On: 27-May-2018 Request Comments: standing order PT (PROTHROMBIN TIME) ([id number]) : standing orderIndication: History of DVT (deep vein thrombosis) On: 27-May-2018 Request Comments: standing order PT (PROTHROMBIN TIME) ([id number]) : standing orderIndication: History of DVT (deep vein thrombosis) On: 26-May-2018 Request Comments: standing order PT (PROTHROMBIN TIME) ([id number]) : standing orderIndication: History of DVT (deep vein thrombosis) On: 26-May-2018 Request Comments: standing order PT (PROTHROMBIN TIME) ([id number]) : standing orderIndication: History of DVT (deep vein thrombosis) On: 25-May-2018 Request Comments: standing order PT (PROTHROMBIN TIME) ([id number]) : standing orderIndication: History of DVT (deep vein thrombosis) On: 25-May-2018 Request Comments: standing order PT (PROTHROMBIN TIME) ([id number]) : standing orderIndication: History of DVT (deep vein thrombosis) On: 24-May-2018 Request Comments: standing order PT (PROTHROMBIN TIME) ([id number]) : standing orderIndication: History of DVT (deep vein thrombosis) On: 24-May-2018 Request Comments: standing order PT (Prothrobim Time) ([id number])Indication: Anticoagulated on Coumadin On: 23-May-2018 Request PT (PROTHROMBIN TIME) ([id number]) : standing orderIndication: History of DVT (deep vein thrombosis) On: 23-May-2018 Request Comments: standing order PT (PROTHROMBIN TIME) ([id number]) : standing orderIndication: History of DVT (deep vein thrombosis) On: 23-May-2018 Request Comments: standing order PT (PROTHROMBIN TIME) ([id number]) : standing orderIndication: History of DVT (deep vein thrombosis) On: 22-May-2018 Request Comments: standing order PT (PROTHROMBIN TIME) ([id number]) : standing orderIndication: History of DVT (deep vein thrombosis) On: 22-May-2018 Request Comments: standing order PT (PROTHROMBIN TIME) ([id number]) : standing orderIndication: History of DVT (deep vein thrombosis) On: 21-May-2018 Request Comments: standing order PT (PROTHROMBIN TIME) ([id number]) : standing orderIndication: History of DVT (deep vein thrombosis) On: 21-May-2018 Request Comments: standing order PT (PROTHROMBIN TIME) ([id number]) : standing orderIndication: History of DVT (deep vein thrombosis) On: 20-May-2018 Request Comments: standing order PT (PROTHROMBIN TIME) ([id number]) : standing orderIndication: History of DVT (deep vein thrombosis) On: 20-May-2018 Request Comments: standing order PT (PROTHROMBIN TIME) ([id number]) : standing orderIndication: History of DVT (deep vein thrombosis) On: 19-May-2018 Request Comments: standing order PT (PROTHROMBIN TIME) ([id number]) : standing orderIndication: History of DVT (deep vein thrombosis) On: 19-May-2018 Request Comments: standing order PT (PROTHROMBIN TIME) ([id number]) : standing orderIndication: History of DVT (deep vein thrombosis) On: 18-May-2018 Request Comments: standing order PT (PROTHROMBIN TIME) ([id number]) : standing orderIndication: History of DVT (deep vein thrombosis) On: 18-May-2018 Request Comments: standing order PT (PROTHROMBIN TIME) ([id number]) : standing orderIndication: History of DVT (deep vein thrombosis) On: 17-May-2018 Request Comments: standing order PT (PROTHROMBIN TIME) ([id number]) : standing orderIndication: History of DVT (deep vein thrombosis) On: 17-May-2018 Request Comments: standing order PT (Prothrobim Time) ([id number])Indication: Anticoagulated on Coumadin On: 16-May-2018 Request PT (PROTHROMBIN TIME) ([id number]) : standing orderIndication: History of DVT (deep vein thrombosis) On: 16-May-2018 Request Comments: standing order PT (PROTHROMBIN TIME) ([id number]) : standing orderIndication: History of DVT (deep vein thrombosis) On: 16-May-2018 Request Comments: standing order PT (PROTHROMBIN TIME) ([id number]) : standing orderIndication: History of DVT (deep vein thrombosis) On: 15-May-2018 Request Comments: standing order PT (PROTHROMBIN TIME) ([id number]) : standing orderIndication: History of DVT (deep vein thrombosis) On: 15-May-2018 Request Comments: standing order PT (PROTHROMBIN TIME) ([id number]) : standing orderIndication: History of DVT (deep vein thrombosis) On: 14-May-2018 Request Comments: standing order PT (PROTHROMBIN TIME) ([id number]) : standing orderIndication: History of DVT (deep vein thrombosis) On: 14-May-2018 Request Comments: standing order PT (PROTHROMBIN TIME) ([id number]) : standing orderIndication: History of DVT (deep vein thrombosis) On: 13-May-2018 Request Comments: standing order PT (PROTHROMBIN TIME) ([id number]) : standing orderIndication: History of DVT (deep vein thrombosis) On: 13-May-2018 Request Comments: standing order PT (PROTHROMBIN TIME) ([id number]) : standing orderIndication: History of DVT (deep vein thrombosis) On: 12-May-2018 Request Comments: standing order PT (PROTHROMBIN TIME) ([id number]) : standing orderIndication: History of DVT (deep vein thrombosis) On: 12-May-2018 Request Comments: standing order PT (PROTHROMBIN TIME) ([id number]) : standing orderIndication: History of DVT (deep vein thrombosis) On: 11-May-2018 Request Comments: standing order PT (PROTHROMBIN TIME) ([id number]) : standing orderIndication: History of DVT (deep vein thrombosis) On: 11-May-2018 Request Comments: standing order PT (PROTHROMBIN TIME) ([id number]) : standing orderIndication: History of DVT (deep vein thrombosis) On: 10-May-2018 Request Comments: standing order PT (PROTHROMBIN TIME) ([id number]) : standing orderIndication: History of DVT (deep vein thrombosis) On: 10-May-2018 Request Comments: standing order PT (Prothrobim Time) ([id number])Indication: Anticoagulated on Coumadin On: 09-May-2018 Request PT (PROTHROMBIN TIME) ([id number]) : standing orderIndication: History of DVT (deep vein thrombosis) On: 09-May-2018 Request Comments: standing order PT (PROTHROMBIN TIME) ([id number]) : standing orderIndication: History of DVT (deep vein thrombosis) On: 09-May-2018 Request Comments: standing order PT (PROTHROMBIN TIME) ([id number]) : standing orderIndication: History of DVT (deep vein thrombosis) On: 08-May-2018 Request Comments: standing order PT (PROTHROMBIN TIME) ([id number]) : standing orderIndication: History of DVT (deep vein thrombosis) On: 08-May-2018 Request Comments: standing order PT (PROTHROMBIN TIME) ([id number]) : standing orderIndication: History of DVT (deep vein thrombosis) On: 07-May-2018 Request Comments: standing order PT (PROTHROMBIN TIME) ([id number]) : standing orderIndication: History of DVT (deep vein thrombosis) On: 07-May-2018 Request Comments: standing order PT (PROTHROMBIN TIME) ([id number]) : standing orderIndication: History of DVT (deep vein thrombosis) On: 06-May-2018 Request Comments: standing order PT (PROTHROMBIN TIME) ([id number]) : standing orderIndication: History of DVT (deep vein thrombosis) On: 06-May-2018 Request Comments: standing order PT (PROTHROMBIN TIME) ([id number]) : standing orderIndication: History of DVT (deep vein thrombosis) On: 05-May-2018 Request Comments: standing order PT (PROTHROMBIN TIME) ([id number]) : standing orderIndication: History of DVT (deep vein thrombosis) On: 05-May-2018 Request Comments: standing order PT (PROTHROMBIN TIME) ([id number]) : standing orderIndication: History of DVT (deep vein thrombosis) On: 04-May-2018 Request Comments: standing order PT (PROTHROMBIN TIME) ([id number]) : standing orderIndication: History of DVT (deep vein thrombosis) On: 04-May-2018 Request Comments: standing order PT (Prothrobim Time) ([id number])Indication: History of DVT (deep vein thrombosis) On: 03-May-2018 Request Comments: INR PT (PROTHROMBIN TIME) ([id number]) : standing orderIndication: History of DVT (deep vein thrombosis) On: 03-May-2018 Request Comments: standing order PT (PROTHROMBIN TIME) ([id number]) : standing orderIndication: History of DVT (deep vein thrombosis) On: 03-May-2018 Request Comments: standing order PT (Prothrobim Time) ([id number])Indication: Anticoagulated on Coumadin On: 02-May-2018 Request PT (PROTHROMBIN TIME) ([id number]) : standing orderIndication: History of DVT (deep vein thrombosis) On: 02-May-2018 Request Comments: standing order PT (PROTHROMBIN TIME) ([id number]) : standing orderIndication: History of DVT (deep vein thrombosis) On: 02-May-2018 Request Comments: standing order PT (PROTHROMBIN TIME) ([id number])Indication: History of DVT (deep vein thrombosis) On: 01-May-2018 Request PT (PROTHROMBIN TIME) ([id number]) : standing orderIndication: History of DVT (deep vein thrombosis) On: 01-May-2018 Request Comments: standing order PT (PROTHROMBIN TIME) ([id number]) : standing orderIndication: History of DVT (deep vein thrombosis) On: 01-May-2018 Request Comments: standing order PT (PROTHROMBIN TIME) ([id number]) : standing orderIndication: History of DVT (deep vein thrombosis) On: 01-May-2018 Request Comments: standing order PT (PROTHROMBIN TIME) ([id number]) : standing orderIndication: History of DVT (deep vein thrombosis) On: 30-Apr-2018 Request Comments: standing order PT (PROTHROMBIN TIME) ([id number]) : standing orderIndication: History of DVT (deep vein thrombosis) On: 30-Apr-2018 Request Comments: standing order PT (PROTHROMBIN TIME) ([id number]) : standing orderIndication: History of DVT (deep vein thrombosis) On: 29-Apr-2018 Request Comments: standing order PT (PROTHROMBIN TIME) ([id number]) : standing orderIndication: History of DVT (deep vein thrombosis) On: 29-Apr-2018 Request Comments: standing order PT (PROTHROMBIN TIME) ([id number]) : standing orderIndication: History of DVT (deep vein thrombosis) On: 28-Apr-2018 Request Comments: standing order PT (PROTHROMBIN TIME) ([id number]) : standing orderIndication: History of DVT (deep vein thrombosis) On: 28-Apr-2018 Request Comments: standing order PT (PROTHROMBIN TIME) ([id number]) : standing orderIndication: History of DVT (deep vein thrombosis) On: 27-Apr-2018 Request Comments: standing order PT (PROTHROMBIN TIME) ([id number]) : standing orderIndication: History of DVT (deep vein thrombosis) On: 27-Apr-2018 Request Comments: standing order PT (PROTHROMBIN TIME) ([id number]) : standing orderIndication: History of DVT (deep vein thrombosis) On: 26-Apr-2018 Request Comments: standing order PT (PROTHROMBIN TIME) ([id number]) : standing orderIndication: History of DVT (deep vein thrombosis) On: 26-Apr-2018 Request Comments: standing order PT (Prothrobim Time) ([id number])Indication: Anticoagulated on Coumadin On: 25-Apr-2018 Request PT (PROTHROMBIN TIME) ([id number]) : standing orderIndication: History of DVT (deep vein thrombosis) On: 25-Apr-2018 Request Comments: standing order PT (PROTHROMBIN TIME) ([id number]) : standing orderIndication: History of DVT (deep vein thrombosis) On: 25-Apr-2018 Request Comments: standing order PT (PROTHROMBIN TIME) ([id number]) : standing orderIndication: History of DVT (deep vein thrombosis) On: 24-Apr-2018 Request Comments: standing order PT (PROTHROMBIN TIME) ([id number]) : standing orderIndication: History of DVT (deep vein thrombosis) On: 24-Apr-2018 Request Comments: standing order PT (PROTHROMBIN TIME) ([id number]) : standing orderIndication: History of DVT (deep vein thrombosis) On: 23-Apr-2018 Request Comments: standing order PT (PROTHROMBIN TIME) ([id number]) : standing orderIndication: History of DVT (deep vein thrombosis) On: 23-Apr-2018 Request Comments: standing order PT (PROTHROMBIN TIME) ([id number]) : standing orderIndication: History of DVT (deep vein thrombosis) On: 22-Apr-2018 Request Comments: standing order PT (PROTHROMBIN TIME) ([id number]) : standing orderIndication: History of DVT (deep vein thrombosis) On: 22-Apr-2018 Request Comments: standing order PT (PROTHROMBIN TIME) ([id number]) : standing orderIndication: History of DVT (deep vein thrombosis) On: 21-Apr-2018 Request Comments: standing order PT (PROTHROMBIN TIME) ([id number]) : standing orderIndication: History of DVT (deep vein thrombosis) On: 21-Apr-2018 Request Comments: standing order PT (PROTHROMBIN TIME) ([id number]) : standing orderIndication: History of DVT (deep vein thrombosis) On: 20-Apr-2018 Request Comments: standing order PT (PROTHROMBIN TIME) ([id number]) : standing orderIndication: History of DVT (deep vein thrombosis) On: 20-Apr-2018 Request Comments: standing order PT (PROTHROMBIN TIME) ([id number]) : standing orderIndication: History of DVT (deep vein thrombosis) On: 19-Apr-2018 Request Comments: standing order PT (PROTHROMBIN TIME) ([id number]) : standing orderIndication: History of DVT (deep vein thrombosis) On: 19-Apr-2018 Request Comments: standing order CBC, Platelets & Auto Diff ([id number])Indication: Leukopenia On: 18-Apr-2018 Request PT (Prothrobim Time) ([id number])Indication: Anticoagulated on Coumadin On: 18-Apr-2018 Request PT (PROTHROMBIN TIME) ([id number]) : standing orderIndication: History of DVT (deep vein thrombosis) On: 18-Apr-2018 Request Comments: standing order PT (PROTHROMBIN TIME) ([id number]) : standing orderIndication: History of DVT (deep vein thrombosis) On: 18-Apr-2018 Request Comments: standing order PT (PROTHROMBIN TIME) ([id number]) : standing orderIndication: History of DVT (deep vein thrombosis) On: 17-Apr-2018 Request Comments: standing order PT (PROTHROMBIN TIME) ([id number]) : standing orderIndication: History of DVT (deep vein thrombosis) On: 17-Apr-2018 Request Comments: standing order PT (PROTHROMBIN TIME) ([id number]) : standing orderIndication: History of DVT (deep vein thrombosis) On: 16-Apr-2018 Request Comments: standing order PT (PROTHROMBIN TIME) ([id number]) : standing orderIndication: History of DVT (deep vein thrombosis) On: 16-Apr-2018 Request Comments: standing order PT (PROTHROMBIN TIME) ([id number]) : standing orderIndication: History of DVT (deep vein thrombosis) On: 15-Apr-2018 Request Comments: standing order PT (PROTHROMBIN TIME) ([id number]) : standing orderIndication: History of DVT (deep vein thrombosis) On: 15-Apr-2018 Request Comments: standing order PT (PROTHROMBIN TIME) ([id number]) : standing orderIndication: History of DVT (deep vein thrombosis) On: 14-Apr-2018 Request Comments: standing order PT (PROTHROMBIN TIME) ([id number]) : standing orderIndication: History of DVT (deep vein thrombosis) On: 14-Apr-2018 Request Comments: standing order PT (PROTHROMBIN TIME) ([id number]) : standing orderIndication: History of DVT (deep vein thrombosis) On: 13-Apr-2018 Request Comments: standing order PT (PROTHROMBIN TIME) ([id number]) : standing orderIndication: History of DVT (deep vein thrombosis) On: 13-Apr-2018 Request Comments: standing order PT (PROTHROMBIN TIME) ([id number]) : standing orderIndication: History of DVT (deep vein thrombosis) On: 12-Apr-2018 Request Comments: standing order PT (PROTHROMBIN TIME) ([id number]) : standing orderIndication: History of DVT (deep vein thrombosis) On: 12-Apr-2018 Request Comments: standing order PT (Prothrobim Time) ([id number])Indication: Anticoagulated on Coumadin On: 11-Apr-2018 Request PT (PROTHROMBIN TIME) ([id number]) : standing orderIndication: History of DVT (deep vein thrombosis) On: 11-Apr-2018 Request Comments: standing order PT (PROTHROMBIN TIME) ([id number]) : standing orderIndication: History of DVT (deep vein thrombosis) On: 11-Apr-2018 Request Comments: standing order PT (PROTHROMBIN TIME) ([id number]) : standing orderIndication: History of DVT (deep vein thrombosis) On: 10-Apr-2018 Request Comments: standing order PT (PROTHROMBIN TIME) ([id number]) : standing orderIndication: History of DVT (deep vein thrombosis) On: 10-Apr-2018 Request Comments: standing order PT (PROTHROMBIN TIME) ([id number]) : standing orderIndication: History of DVT (deep vein thrombosis) On: 09-Apr-2018 Request Comments: standing order PT (PROTHROMBIN TIME) ([id number]) : standing orderIndication: History of DVT (deep vein thrombosis) On: 09-Apr-2018 Request Comments: standing order PT (PROTHROMBIN TIME) ([id number]) : standing orderIndication: History of DVT (deep vein thrombosis) On: 08-Apr-2018 Request Comments: standing order PT (PROTHROMBIN TIME) ([id number]) : standing orderIndication: History of DVT (deep vein thrombosis) On: 08-Apr-2018 Request Comments: standing order PT (PROTHROMBIN TIME) ([id number]) : standing orderIndication: History of DVT (deep vein thrombosis) On: 07-Apr-2018 Request Comments: standing order PT (PROTHROMBIN TIME) ([id number]) : standing orderIndication: History of DVT (deep vein thrombosis) On: 07-Apr-2018 Request Comments: standing order PT (PROTHROMBIN TIME) ([id number]) : standing orderIndication: History of DVT (deep vein thrombosis) On: 06-Apr-2018 Request Comments: standing order PT (PROTHROMBIN TIME) ([id number]) : standing orderIndication: History of DVT (deep vein thrombosis) On: 06-Apr-2018 Request Comments: standing order PT (PROTHROMBIN TIME) ([id number]) : standing orderIndication: History of DVT (deep vein thrombosis) On: 05-Apr-2018 Request Comments: standing order PT (PROTHROMBIN TIME) ([id number]) : standing orderIndication: History of DVT (deep vein thrombosis) On: 05-Apr-2018 Request Comments: standing order PT (Prothrobim Time) ([id number])Indication: Anticoagulated on Coumadin On: 04-Apr-2018 Request PT (PROTHROMBIN TIME) ([id number]) : standing orderIndication: History of DVT (deep vein thrombosis) On: 04-Apr-2018 Request Comments: standing order PT (PROTHROMBIN TIME) ([id number]) : standing orderIndication: History of DVT (deep vein thrombosis) On: 04-Apr-2018 Request Comments: standing order PT (Prothrobim Time) ([id number])Indication: History of DVT (deep vein thrombosis) On: 03-Apr-2018 Request Comments: INR PT (PROTHROMBIN TIME) ([id number]) : standing orderIndication: History of DVT (deep vein thrombosis) On: 03-Apr-2018 Request Comments: standing order PT (PROTHROMBIN TIME) ([id number]) : standing orderIndication: History of DVT (deep vein thrombosis) On: 03-Apr-2018 Request Comments: standing order PT (PROTHROMBIN TIME) ([id number]) : standing orderIndication: History of DVT (deep vein thrombosis) On: 02-Apr-2018 Request Comments: standing order PT (PROTHROMBIN TIME) ([id number]) : standing orderIndication: History of DVT (deep vein thrombosis) On: 02-Apr-2018 Request Comments: standing order PT (PROTHROMBIN TIME) ([id number])Indication: History of DVT (deep vein thrombosis) On: 01-Apr-2018 Request PT (PROTHROMBIN TIME) ([id number]) : standing orderIndication: History of DVT (deep vein thrombosis) On: 01-Apr-2018 Request Comments: standing order PT (PROTHROMBIN TIME) ([id number]) : standing orderIndication: History of DVT (deep vein thrombosis) On: 01-Apr-2018 Request Comments: standing order PT (PROTHROMBIN TIME) ([id number]) : standing orderIndication: History of DVT (deep vein thrombosis) On: 01-Apr-2018 Request Comments: standing order PT (PROTHROMBIN TIME) ([id number]) : standing orderIndication: History of DVT (deep vein thrombosis) On: 31-Mar-2018 Request Comments: standing order PT (PROTHROMBIN TIME) ([id number]) : standing orderIndication: History of DVT (deep vein thrombosis) On: 31-Mar-2018 Request Comments: standing order PT (PROTHROMBIN TIME) ([id number]) : standing orderIndication: History of DVT (deep vein thrombosis) On: 30-Mar-2018 Request Comments: standing order PT (PROTHROMBIN TIME) ([id number]) : standing orderIndication: History of DVT (deep vein thrombosis) On: 30-Mar-2018 Request Comments: standing order PT (PROTHROMBIN TIME) ([id number]) : standing orderIndication: History of DVT (deep vein thrombosis) On: 29-Mar-2018 Request Comments: standing order PT (PROTHROMBIN TIME) ([id number]) : standing orderIndication: History of DVT (deep vein thrombosis) On: 29-Mar-2018 Request Comments: standing order PT (Prothrobim Time) ([id number])Indication: Anticoagulated on Coumadin On: 28-Mar-2018 Request PT (PROTHROMBIN TIME) ([id number]) : standing orderIndication: History of DVT (deep vein thrombosis) On: 28-Mar-2018 Request Comments: standing order PT (PROTHROMBIN TIME) ([id number]) : standing orderIndication: History of DVT (deep vein thrombosis) On: 28-Mar-2018 Request Comments: standing order PT (PROTHROMBIN TIME) ([id number]) : standing orderIndication: History of DVT (deep vein thrombosis) On: 27-Mar-2018 Request Comments: standing order PT (PROTHROMBIN TIME) ([id number]) : standing orderIndication: History of DVT (deep vein thrombosis) On: 27-Mar-2018 Request Comments: standing order PT (PROTHROMBIN TIME) ([id number]) : standing orderIndication: History of DVT (deep vein thrombosis) On: 26-Mar-2018 Request Comments: standing order PT (PROTHROMBIN TIME) ([id number]) : standing orderIndication: History of DVT (deep vein thrombosis) On: 26-Mar-2018 Request Comments: standing order PT (PROTHROMBIN TIME) ([id number]) : standing orderIndication: History of DVT (deep vein thrombosis) On: 25-Mar-2018 Request Comments: standing order PT (PROTHROMBIN TIME) ([id number]) : standing orderIndication: History of DVT (deep vein thrombosis) On: 25-Mar-2018 Request Comments: standing order PT (PROTHROMBIN TIME) ([id number]) : standing orderIndication: History of DVT (deep vein thrombosis) On: 24-Mar-2018 Request Comments: standing order PT (PROTHROMBIN TIME) ([id number]) : standing orderIndication: History of DVT (deep vein thrombosis) On: 24-Mar-2018 Request Comments: standing order PT (PROTHROMBIN TIME) ([id number]) : standing orderIndication: History of DVT (deep vein thrombosis) On: 23-Mar-2018 Request Comments: standing order PT (PROTHROMBIN TIME) ([id number]) : standing orderIndication: History of DVT (deep vein thrombosis) On: 23-Mar-2018 Request Comments: standing order PT (PROTHROMBIN TIME) ([id number]) : standing orderIndication: History of DVT (deep vein thrombosis) On: 22-Mar-2018 Request Comments: standing order PT (PROTHROMBIN TIME) ([id number]) : standing orderIndication: History of DVT (deep vein thrombosis) On: 22-Mar-2018 Request Comments: standing order PT (Prothrobim Time) ([id number])Indication: Anticoagulated on Coumadin On: 21-Mar-2018 Request PT (PROTHROMBIN TIME) ([id number]) : standing orderIndication: History of DVT (deep vein thrombosis) On: 21-Mar-2018 Request Comments: standing order PT (PROTHROMBIN TIME) ([id number]) : standing orderIndication: History of DVT (deep vein thrombosis) On: 21-Mar-2018 Request Comments: standing order PT (PROTHROMBIN TIME) ([id number]) : standing orderIndication: History of DVT (deep vein thrombosis) On: 20-Mar-2018 Request Comments: standing order PT (PROTHROMBIN TIME) ([id number]) : standing orderIndication: History of DVT (deep vein thrombosis) On: 20-Mar-2018 Request Comments: standing order PT (PROTHROMBIN TIME) ([id number]) : standing orderIndication: History of DVT (deep vein thrombosis) On: 19-Mar-2018 Request Comments: standing order PT (PROTHROMBIN TIME) ([id number]) : standing orderIndication: History of DVT (deep vein thrombosis) On: 19-Mar-2018 Request Comments: standing order PT (PROTHROMBIN TIME) ([id number]) : standing orderIndication: History of DVT (deep vein thrombosis) On: 18-Mar-2018 Request Comments: standing order PT (PROTHROMBIN TIME) ([id number]) : standing orderIndication: History of DVT (deep vein thrombosis) On: 18-Mar-2018 Request Comments: standing order PT (PROTHROMBIN TIME) ([id number]) : standing orderIndication: History of DVT (deep vein thrombosis) On: 17-Mar-2018 Request Comments: standing order PT (PROTHROMBIN TIME) ([id number]) : standing orderIndication: History of DVT (deep vein thrombosis) On: 17-Mar-2018 Request Comments: standing order PT (PROTHROMBIN TIME) ([id number]) : standing orderIndication: History of DVT (deep vein thrombosis) On: 16-Mar-2018 Request Comments: standing order PT (PROTHROMBIN TIME) ([id number]) : standing orderIndication: History of DVT (deep vein thrombosis) On: 16-Mar-2018 Request Comments: standing order PT (PROTHROMBIN TIME) ([id number]) : standing orderIndication: History of DVT (deep vein thrombosis) On: 15-Mar-2018 Request Comments: standing order PT (PROTHROMBIN TIME) ([id number]) : standing orderIndication: History of DVT (deep vein thrombosis) On: 15-Mar-2018 Request Comments: standing order PT (Prothrobim Time) ([id number])Indication: Anticoagulated on Coumadin On: 14-Mar-2018 Request PT (PROTHROMBIN TIME) ([id number]) : standing orderIndication: History of DVT (deep vein thrombosis) On: 14-Mar-2018 Request Comments: standing order PT (PROTHROMBIN TIME) ([id number]) : standing orderIndication: History of DVT (deep vein thrombosis) On: 14-Mar-2018 Request Comments: standing order PT (PROTHROMBIN TIME) ([id number]) : standing orderIndication: History of DVT (deep vein thrombosis) On: 13-Mar-2018 Request Comments: standing order PT (PROTHROMBIN TIME) ([id number]) : standing orderIndication: History of DVT (deep vein thrombosis) On: 13-Mar-2018 Request Comments: standing order PT (PROTHROMBIN TIME) ([id number]) : standing orderIndication: History of DVT (deep vein thrombosis) On: 12-Mar-2018 Request Comments: standing order PT (PROTHROMBIN TIME) ([id number]) : standing orderIndication: History of DVT (deep vein thrombosis) On: 12-Mar-2018 Request Comments: standing order PT (PROTHROMBIN TIME) ([id number]) : standing orderIndication: History of DVT (deep vein thrombosis) On: 11-Mar-2018 Request Comments: standing order PT (PROTHROMBIN TIME) ([id number]) : standing orderIndication: History of DVT (deep vein thrombosis) On: 11-Mar-2018 Request Comments: standing order PT (PROTHROMBIN TIME) ([id number]) : standing orderIndication: History of DVT (deep vein thrombosis) On: 10-Mar-2018 Request Comments: standing order PT (PROTHROMBIN TIME) ([id number]) : standing orderIndication: History of DVT (deep vein thrombosis) On: 10-Mar-2018 Request Comments: standing order PT (PROTHROMBIN TIME) ([id number]) : standing orderIndication: History of DVT (deep vein thrombosis) On: 09-Mar-2018 Request Comments: standing order PT (PROTHROMBIN TIME) ([id number]) : standing orderIndication: History of DVT (deep vein thrombosis) On: 09-Mar-2018 Request Comments: standing order PT (PROTHROMBIN TIME) ([id number]) : standing orderIndication: History of DVT (deep vein thrombosis) On: 08-Mar-2018 Request Comments: standing order PT (PROTHROMBIN TIME) ([id number]) : standing orderIndication: History of DVT (deep vein thrombosis) On: 08-Mar-2018 Request Comments: standing order PT (Prothrobim Time) ([id number])Indication: Anticoagulated on Coumadin On: 07-Mar-2018 Request PT (PROTHROMBIN TIME) ([id number]) : standing orderIndication: History of DVT (deep vein thrombosis) On: 07-Mar-2018 Request Comments: standing order PT (PROTHROMBIN TIME) ([id number]) : standing orderIndication: History of DVT (deep vein thrombosis) On: 07-Mar-2018 Request Comments: standing order PT (PROTHROMBIN TIME) ([id number]) : standing orderIndication: History of DVT (deep vein thrombosis) On: 06-Mar-2018 Request Comments: standing order PT (PROTHROMBIN TIME) ([id number]) : standing orderIndication: History of DVT (deep vein thrombosis) On: 06-Mar-2018 Request Comments: standing order PT (PROTHROMBIN TIME) ([id number]) : standing orderIndication: History of DVT (deep vein thrombosis) On: 05-Mar-2018 Request Comments: standing order PT (PROTHROMBIN TIME) ([id number]) : standing orderIndication: History of DVT (deep vein thrombosis) On: 05-Mar-2018 Request Comments: standing order PT (Prothrobim Time) ([id number])Indication: History of DVT (deep vein thrombosis) On: 23-Drd-49848:49 Request Comments: INR PT (PROTHROMBIN TIME) ([id number]) : standing orderIndication: History of DVT (deep vein thrombosis) On: 04-Mar-2018 Request Comments: standing order PT (PROTHROMBIN TIME) ([id number]) : standing orderIndication: History of DVT (deep vein thrombosis) On: 04-Mar-2018 Request Comments: standing order PT (PROTHROMBIN TIME) ([id number]) : standing orderIndication: History of DVT (deep vein thrombosis) On: 03-Mar-2018 Request Comments: standing order PT (PROTHROMBIN TIME) ([id number]) : standing orderIndication: History of DVT (deep vein thrombosis) On: 03-Mar-2018 Request Comments: standing order PT (PROTHROMBIN TIME) ([id number])Indication: History of DVT (deep vein thrombosis) On: 53-Uly-346150:54 Request PT (PROTHROMBIN TIME) ([id number]) : standing orderIndication: History of DVT (deep vein thrombosis) On: 33-Orz-400026:48 Request Comments: standing order PT (Prothrobim Time) ([id number])Indication: Anticoagulated on Coumadin On: 28-Feb-2018 Request PT (Prothrobim Time) ([id number])Indication: Anticoagulated on Coumadin On: 21-Feb-2018 Request PT (Prothrobim Time) ([id number])Indication: Anticoagulated on Coumadin On: 14-Feb-2018 Request YURIY (ANTINUCLEAR ANTIBODY) ([id number])Indication: Leukopenia On: 5-Mwt-653364:30 Request Comments: give lab slips UPEP ([id number])Indication: Leukopenia On: 3-Ryh-182679:30 Request Comments: give lab slips SPEP ([id number])Indication: Leukopenia On: 2-Ebf-514503:29 Request Comments: give lab slips PT (Prothrobim Time) ([id number])Indication: Anticoagulated on Coumadin On: 07-Feb-2018 Request PT (Prothrobim Time) ([id number])Indication: Anticoagulated on Coumadin On: 31-Jan-2018 Request PT (Prothrobim Time) ([id number])Indication: Anticoagulated on Coumadin On: 24-Jan-2018 Request PT (Prothrobim Time) ([id number])Indication: Anticoagulated on Coumadin On: 17-Jan-2018 Request PT (Prothrobim Time) ([id number])Indication: Anticoagulated on Coumadin On: 10-Jan-2018 Request PT (Prothrobim Time) ([id number])Indication: Anticoagulated on Coumadin On: 03-Jan-2018 Request PT (Prothrobim Time) ([id number])Indication: Anticoagulated on Coumadin On: 27-Dec-2017 Request PT (Prothrobim Time) ([id number])Indication: Anticoagulated on Coumadin On: 20-Dec-2017 Request BILIRUBIN, TOTAL ([id number])Indication: Encounter for screening for lipid disorder On: 00-Fwd-577399:28 Request BILIRUBIN, DIRECT ([id number])Indication: Encounter for screening for lipid disorder On: 03-Sea-409778:28 Request CBC, PLATELETS & AUT DIFF ([id number])Indication: Encounter for screening for lipid disorder On: 81-Dzd-187169:47 Request Metabolic Panel, Comprehensive ([id number])Indication: Encounter for screening for lipid disorder On: 11-Lto-12671:10 Request CBC & PLATELETS (AUTO) ([id number])Indication: Encounter for screening for lipid disorder On: 52-Czc-33250:10 Request LIPID PANEL ([id number])Indication: Encounter for screening for lipid disorder On: 42-Var-26146:09 Request PT (Prothrobim Time) ([id number])Indication: Anticoagulated on Coumadin On: 13-Dec-2017 Request PT (Prothrobim Time) ([id number])Indication: Anticoagulated on Coumadin On: 06-Dec-2017 Request PT (Prothrobim Time) ([id number])Indication: Anticoagulated on Coumadin On: 29-Nov-2017 Request PT (Prothrobim Time) ([id number])Indication: Anticoagulated on Coumadin On: 22-Nov-2017 Request PT (Prothrobim Time) ([id number])Indication: Anticoagulated on Coumadin On: 15-Nov-2017 Request PT (Prothrobim Time) ([id number])Indication: Anticoagulated on Coumadin On: 08-Nov-2017 Request PT (Prothrobim Time) ([id number])Indication: Anticoagulated on Coumadin On: 01-Nov-2017 Request PT (Prothrobim Time) ([id number])Indication: Anticoagulated on Coumadin On: 25-Oct-2017 Request PT (Prothrobim Time) ([id number])Indication: Anticoagulated on Coumadin On: 18-Oct-2017 Request PT (Prothrobim Time) ([id number])Indication: Anticoagulated on Coumadin On: 11-Oct-2017 Request PT (Prothrobim Time) ([id number])Indication: Anticoagulated on Coumadin On: 04-Oct-2017 Request PT (Prothrobim Time) ([id number])Indication: Anticoagulated on Coumadin On: 27-Sep-2017 Request PT (Prothrobim Time) ([id number])Indication: Anticoagulated on Coumadin On: 20-Sep-2017 Request PT (Prothrobim Time) ([id number])Indication: Anticoagulated on Coumadin On: 13-Sep-2017 Request PT (Prothrobim Time) ([id number])Indication: Anticoagulated on Coumadin On: 06-Sep-2017 Request PT (Prothrobim Time) ([id number])Indication: Anticoagulated on Coumadin On: 30-Aug-2017 Request PT (Prothrobim Time) ([id number])Indication: Anticoagulated on Coumadin On: 23-Aug-2017 Request PT (Prothrobim Time) ([id number])Indication: Anticoagulated on Coumadin On: 16-Aug-2017 Request PT (Prothrobim Time) ([id number])Indication: Anticoagulated on Coumadin On: 09-Aug-2017 Request PT (Prothrobim Time) ([id number])Indication: Anticoagulated on Coumadin On: 02-Aug-2017 Request PT (Prothrobim Time) ([id number])Indication: Anticoagulated on Coumadin On: 26-Jul-2017 Request PT (Prothrobim Time) ([id number])Indication: Anticoagulated on Coumadin On: 19-Jul-2017 Request PT (Prothrobim Time) ([id number])Indication: Anticoagulated on Coumadin On: 12-Jul-2017 Request PT (Prothrobim Time) ([id number])Indication: Anticoagulated on Coumadin On: 05-Jul-2017 Request PT (Prothrobim Time) ([id number])Indication: Anticoagulated on Coumadin On: 28-Jun-2017 Request PT (Prothrobim Time) ([id number])Indication: Anticoagulated on Coumadin On: 21-Jun-2017 Request PT (Prothrobim Time) ([id number])Indication: Anticoagulated on Coumadin On: 14-Jun-2017 Request PT (Prothrobim Time) ([id number])Indication: Anticoagulated on Coumadin On: 07-Jun-2017 Request PT (Prothrobim Time) ([id number])Indication: Anticoagulated on Coumadin On: 31-May-2017 Request PT (Prothrobim Time) ([id number])Indication: Anticoagulated on Coumadin On: 25-May-2017 Request PT (Prothrobim Time) ([id number])Indication: Anticoagulated on Coumadin On: 25-May-2017 Request PT (Prothrobim Time) ([id number])Indication: Anticoagulated on Coumadin On: 24-May-2017 Request PT (Prothrobim Time) ([id number])Indication: Anticoagulated on Coumadin On: 17-May-2017 Request PT (Prothrobim Time) ([id number])Indication: Anticoagulated on Coumadin On: 10-May-2017 Request PT (Prothrobim Time) ([id number])Indication: Anticoagulated on Coumadin On: 03-May-2017 Request PT (Prothrobim Time) ([id number])Indication: Anticoagulated on Coumadin On: 26-Apr-2017 Request PT (Prothrobim Time) ([id number])Indication: Anticoagulated on Coumadin On: 25-Apr-2017 Request PT (Prothrobim Time) ([id number])Indication: Anticoagulated on Coumadin On: 25-Apr-2017 Request PT (Prothrobim Time) ([id number])Indication: Anticoagulated on Coumadin On: 19-Apr-2017 Request PT (Prothrobim Time) ([id number])Indication: Anticoagulated on Coumadin On: 12-Apr-2017 Request PT (Prothrobim Time) ([id number])Indication: Anticoagulated on Coumadin On: 05-Apr-2017 Request PT (Prothrobim Time) ([id number])Indication: Anticoagulated on Coumadin On: 29-Mar-2017 Request PT (Prothrobim Time) ([id number])Indication: Anticoagulated on Coumadin On: 26-Mar-2017 Request PT (Prothrobim Time) ([id number])Indication: Anticoagulated on Coumadin On: 26-Mar-2017 Request PT (Prothrobim Time) ([id number])Indication: Anticoagulated on Coumadin On: 22-Mar-2017 Request PT (Prothrobim Time) ([id number])Indication: Anticoagulated on Coumadin On: 15-Mar-2017 Request PT (Prothrobim Time) ([id number])Indication: Anticoagulated on Coumadin On: 08-Mar-2017 Request PT (Prothrobim Time) ([id number])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: 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 intermediate (current) use of anticoagulants (Renamed from [facility] current use of anticoagulant therapy) On: 90-Eou-981208:48 Request Comments: Standing order PT (Prothrobim Time) ([id number])Indication: Anticoagulated on Coumadin On: 01-Mar-2017 Request PT (Prothrobim Time) ([id number])Indication: Anticoagulated on Coumadin On: 24-Feb-2017 Request PT (Prothrobim Time) ([id number])Indication: Anticoagulated on Coumadin On: 24-Feb-2017 Request PT (Prothrobim Time) ([id number])Indication: Anticoagulated on Coumadin On: 22-Feb-2017 Request PT (Prothrobim Time) ([id number])Indication: Anticoagulated on Coumadin On: 15-Feb-2017 Request PT (Prothrobim Time) ([id number])Indication: Anticoagulated on Coumadin On: 08-Feb-2017 Request PT (Prothrobim Time) ([id number])Indication: Anticoagulated on Coumadin On: 01-Feb-2017 Request PT (Prothrobim Time) ([id number])Indication: Anticoagulated on Coumadin On: 25-Jan-2017 Request PT (Prothrobim Time) ([id number])Indication: Anticoagulated on Coumadin On: 25-Jan-2017 Request PT (Prothrobim Time) ([id number])Indication: Anticoagulated on Coumadin On: 25-Jan-2017 Request PT (Prothrobim Time) ([id number])Indication: Anticoagulated on Coumadin On: 18-Jan-2017 Request PT (Prothrobim Time) ([id number])Indication: Anticoagulated on Coumadin On: 11-Jan-2017 Request PT (Prothrobim Time) ([id number])Indication: Anticoagulated on Coumadin On: 04-Jan-2017 Request PT (Prothrobim Time) ([id number])Indication: Anticoagulated on Coumadin On: 28-Dec-2016 Request PT (Prothrobim Time) ([id number])Indication: Anticoagulated on Coumadin On: 26-Dec-2016 Request PT (Prothrobim Time) ([id number])Indication: Anticoagulated on Coumadin On: 26-Dec-2016 Request PT (Prothrobim Time) ([id number])Indication: Anticoagulated on Coumadin On: 21-Dec-2016 Request PT (Prothrobim Time) ([id number])Indication: Anticoagulated on Coumadin On: 14-Dec-2016 Request PT (Prothrobim Time) ([id number])Indication: Anticoagulated on Coumadin On: 07-Dec-2016 Request PT (Prothrobim Time) ([id number])Indication: Anticoagulated on Coumadin On: 30-Nov-2016 Request PT (Prothrobim Time) ([id number])Indication: Anticoagulated on Coumadin On: 26-Nov-2016 Request PT (Prothrobim Time) ([id number])Indication: Anticoagulated on Coumadin On: 26-Nov-2016 Request PT (Prothrobim Time) ([id number])Indication: Anticoagulated on Coumadin On: 23-Nov-2016 Request PT (Prothrobim Time) ([id number])Indication: Anticoagulated on Coumadin On: 16-Nov-2016 Request PT (Prothrobim Time) ([id number])Indication: Anticoagulated on Coumadin On: 09-Nov-2016 Request PT (Prothrobim Time) ([id number])Indication: Anticoagulated on Coumadin On: 02-Nov-2016 Request PT (Prothrobim Time) ([id number])Indication: Anticoagulated on Coumadin On: 27-Oct-2016 Request PT (Prothrobim Time) ([id number])Indication: Anticoagulated on Coumadin On: 27-Oct-2016 Request PT (Prothrobim Time) ([id number])Indication: Anticoagulated on Coumadin On: 26-Oct-2016 Request PT (Prothrobim Time) ([id number])Indication: Anticoagulated on Coumadin On: 19-Oct-2016 Request PT (Prothrobim Time) ([id number])Indication: Anticoagulated on Coumadin On: 12-Oct-2016 Request PT (Prothrobim Time) ([id number])Indication: Anticoagulated on Coumadin On: 05-Oct-2016 Request PT (Prothrobim Time) ([id number])Indication: Anticoagulated on Coumadin On: 28-Sep-2016 Request PT (Prothrobim Time) ([id number])Indication: Anticoagulated on Coumadin On: 27-Sep-2016 Request PT (Prothrobim Time) ([id number])Indication: Anticoagulated on Coumadin On: 27-Sep-2016 Request PT (Prothrobim Time) ([id number])Indication: Anticoagulated on Coumadin On: 21-Sep-2016 Request PT (Prothrobim Time) ([id number])Indication: Anticoagulated on Coumadin On: 14-Sep-2016 Request PT (Prothrobim Time) ([id number])Indication: Anticoagulated on Coumadin On: 07-Sep-2016 Request PT (Prothrobim Time) ([id number])Indication: Anticoagulated on Coumadin On: 31-Aug-2016 Request PT (Prothrobim Time) ([id number])Indication: Anticoagulated on Coumadin On: 28-Aug-2016 Request PT (Prothrobim Time) ([id number])Indication: Anticoagulated on Coumadin On: 28-Aug-2016 Request PT (Prothrobim Time) ([id number])Indication: Anticoagulated on Coumadin On: 24-Aug-2016 Request PT (Prothrobim Time) ([id number])Indication: Anticoagulated on Coumadin On: 17-Aug-2016 Request PT (Prothrobim Time) ([id number])Indication: Anticoagulated on Coumadin On: 10-Aug-2016 Request PT (Prothrobim Time) ([id number])Indication: Anticoagulated on Coumadin On: 03-Aug-2016 Request PT (Prothrobim Time) ([id number])Indication: Anticoagulated on Coumadin On: 29-Jul-2016 Request PT (Prothrobim Time) ([id number])Indication: Anticoagulated on Coumadin On: 29-Jul-2016 Request PT (Prothrobim Time) ([id number])Indication: Anticoagulated on Coumadin On: 27-Jul-2016 Request PT (Prothrobim Time) ([id number])Indication: Anticoagulated on Coumadin On: 20-Jul-2016 Request PT (Prothrobim Time) ([id number])Indication: Anticoagulated on Coumadin On: 13-Jul-2016 Request PT (Prothrobim Time) ([id number])Indication: Anticoagulated on Coumadin On: 06-Jul-2016 Request Metabolic Panel, Comprehensive ([id number])Indication: Irritable Bowel Syndrome On: 09-Ffu-785381:28 Request TSH ([id number])Indication: Irritable Bowel Syndrome On: 33-Hav-329239:28 Request CBC, Platelets & Auto Diff ([id number])Indication: Irritable Bowel Syndrome On: 48-Qby-708373:28 Request PT (Prothrobim Time) ([id number])Indication: Anticoagulated on Coumadin On: 56-Enb-142659:24 Request PT (Prothrobim Time) ([id number])Indication: DVT (deep venous thrombosis) On: 80-Teb-474270:11 Request Comments: INR - STANDING ORDER Vitamin D Hydroxy ([id number])Indication: Osteoporosis On: 71-Wro-566485:16 Request TSH ([id number])Indication: Osteoporosis On: 65-Jrj-895910:16 Request CBC with auto diff ([id number])Indication: Benign Essential Hypertension On: 01-Pew-069354:16 Request METABOLIC PANEL, COMPREHENSIVE ([id number])Indication: Benign Essential Hypertension On: 50-Pmq-665325:16 Request LIPID PANEL ([id number])Indication: Hyperlipidemia On: 23-Ijv-347739:16 Request CBC W/AUTO DIFF WBC ([id number])Indication: Benign Essential Hypertension On: :34 Request METABOLIC PANEL, COMPREHENSIVE ([id number])Indication: Benign Essential Hypertension On: :34 Request TSH ([id number])Indication: Osteoporosis On: :39 Request CBC W/AUTO DIFF WBC ([id number])Indication: Osteoporosis On: :39 Request LIPID PANEL ([id number])Indication: Hyperlipidemia On: :38 Request METABOLIC PANEL, COMPREHENSIVE ([id number])Indication: Benign Essential Hypertension On: :38 Request PT (Prothrobim Time) ([id number])Indication: DVT (deep venous thrombosis) On: 6-Dxu-757804:18 Request Comments: FINGER STICKSTANDING ORDER PT (Prothrobim Time) ([id number])Indication: DVT (deep venous thrombosis) On: 43-Chu-806764:28 Request Comments: Standing Order URINALYSIS, W/ MICRO ([id number])Indication: Benign Essential Hypertension On: :37 Request METABOLIC PANEL, COMPREHENSIVE ([id number])Indication: Benign Essential Hypertension On: :37 Request LIPID PANEL ([id number])Indication: Hyperlipidemia On: :37 Request CBC W/AUTO DIFF WBC ([id number])Indication: DVT (deep venous thrombosis) On: :37 Request PT (Prothrobim Time) ([id number])Indication: DVT (deep venous thrombosis) On: 31-Hen-386044:02 Request CBC WITH MANUAL DIFF ([id number])Indication: Benign Essential Hypertension On: :39 Request METABOLIC PANEL, COMPREHENSIVE ([id number])Indication: Hyperlipidemia On: :39 Request LIPID PANEL ([id number])Indication: Hyperlipidemia On: :39 Request PT (Prothrobim Time) ([id number])Indication: DVT (deep venous thrombosis) On: 94-Nju-90374:07 Request Comments: pls call resource protection specialist Dr Hunter with results on 05/20/13 PT (Prothrobim Time) ([id number])Indication: DVT (deep venous thrombosis) On: 78-Xhg-109824:00 Request Comments: Standing Order PT (Prothrobim Time) ([id number])Indication: DVT (deep venous thrombosis) On: 17-Kds-51279:59 Request Comments: INR - STANDING ORDER x 1 year URINALYSIS, W/ MICRO ([id number])Indication: Benign Essential Hypertension On: :15 Request CBC WITH MANUAL DIFF ([id number])Indication: Benign Essential Hypertension On: :15 Request METABOLIC PANEL, COMPREHENSIVE ([id number])Indication: Benign Essential Hypertension On: :14 Request LIPID PANEL ([id number])Indication: Hyperlipidemia On: :14 Request METABOLIC PANEL, COMPREHENSIVE ([id number])Indication: Benign Essential Hypertension On: :06 Request LIPID PANEL ([id number])Indication: Hyperlipidemia On: 35-Iov-24053:06 Request URINE HANNAH CULTURE-IDENTIFICATN ([id number])Indication: Urinary frequency On: 07-Sep-20128:56 Request URINE HANNAH CULTURE-IDENTIFICATN ([id number])Indication: Insect bite On: 82-Qcy-903166:19 Request Lyme Disease,Serum, Western Blot ([id number])Indication: Insect bite On: 71-Bcp-127959:19 Request PT (Prothrobim Time) ([id number])Indication: DVT (deep venous thrombosis) On: 79-Kys-839892:59 Request Comments: standing order LIPID PANEL ([id number])Indication: FAMILY HISTORY OF ISCHEMIC HEART DISEASE On: 09-Iws-167384:28 Request LIPID PANEL ([id number])Indication: FAMILY HISTORY OF ISCHEMIC HEART DISEASE On: 3-Nff-871215:51 Request Vitamin D Hydroxy ([id number])Indication: Osteoporosis On: 7-Ark-591039:18 Request TSH ([id number])Indication: Osteoporosis On: :18 Request URINALYSIS, W/ MICRO ([id number])Indication: Osteoporosis On: :18 Request CBC WITH MANUAL DIFF ([id number])Indication: Osteoporosis On: 9-Cal-721137:18 Request METABOLIC PANEL, COMPREHENSIVE ([id number])Indication: Osteoporosis On: 3-Vho-931410:18 Request PTT (Activated Partial Thromboplastin Time) ([id number])Indication: DVT (deep venous thrombosis) On: 1-Kiy-663745:16 Request PT (Prothrobim Time) ([id number])Indication: DVT (deep venous thrombosis) On: 0-Bvd-950106:16 Request Planned Encounters Medical; 3 Month FU - On: 17-May-2018 8:30 [facility] Selam Blair CNP, CNP, Mary E Planned Procedures DOPPLER ULTRASOUND OF LEFT LOWER On: 14-Feb-2018 Intent EXTREMITY FOR VENOUS THROMBOEMBOLISM Comments: STAT R/O DVT-Hx of DVT ([id number])By: Sigrid Mobley DEXA SCAN AXIAL SKELETON ([id number])By: On: 17-Dec-2017 Intent Selam Blair CNP, CNP, Mary E Aerosol Treatment ([id number])By: Johnnie On: 02-Jun-2017 Intent Selam DAVIES CNP, Mary E Ultrasound - LiverBy: Selam Blair CNP On: 15-Dec-2016 Intent E Selam Blair CNP Aerosol Treatment ([id number])By: Johnnie On: 13-Oct-2016 Intent Selam DAVIES E Selam Blair CNP Aerosol Treatment ([id number])By: Aleksey On: 19-Feb-2015 Intent Eliana HOFFMANN Ultrasound - AortaBy: Helen Barnes DO On: 18-Dec-2014 Intent EKG ([id number])By: Helen Barnes DO On: 05-Nov-2014 Intent Comments: ekg showed normal sinus rhythym, normal axis, no acute st/t wave changes BILATERAL MAMMOGRAMS ([id number])By: Timothy On: 17-Sep-2014 Intent Helen [place] Radiology - Shoulder - LeftBy: Bonelanii On: 05-Mar-2014 Intent Fatimah RANDLE Comments: if not better with PT MAMMOGRAM, SCREENING, BOTH BREASTS On: 08-Aug-2013 Intent ([id number])By: Helen Barnes DO Eprescribed prescriptions ([id number])By: On: 08-Aug-2013 Intent Helen Barnes DO DXA, BONE DENSITY, AXIAL SKELETON On: 21-Oct-2012 Intent ([id number])By: Helen Barnes DO Comments: - mar Eprescribed prescriptions ([id number])By: On: 21-Oct-2012 Intent So Bailey Breast Screening - BilateralBy: Timothy On: 19-Sep-2012 Intent Helen [place] Eprescribed prescriptions ([id number])By: On: 30-Aug-2012 Intent So Bailey Spirometry ([id number])By: Helen Barnes DO On: 11-Mar-2012 Intent A Comments: good effort and curve mild obst- Doppler Ultrasound OtherBy: Timothy [place], On: 11-Mar-2012 Intent Helen Coley Comments: both legs- stat call results Eprescribed prescriptions ([id number])By: On: 11-Mar-2012 Intent So Bailey TD Injection , IM ([id number])By: Leo, On: 11-Mar-2012 Intent So Comments: 2003 FLU VAC, SPLIT, >3 YEARS, INTRAMUSC On: 11-Mar-2012 Intent ([id number])By: So Bailey Comments: got at [facility] Instructions Name Dates Details BMI 22.0-22.9, [...] Coumadin : DISCONTINUED - PT (PROTHROMBIN TIME) ([id number]) Indication: Anticoagulated on Coumadin Irritable Bowel Syndrome [...] Patient Instructions Indication: Osteoporosis Encounters Annotation/Addendum On: 18-Apr-2018 11:33 [facility] End: 18-Apr-2018 11:35 Phone Encounter On: 04-Mar-2018 8:46 Encounter Diagnosis: [...] 3.3 this was repeat. Has been to [place] for treatment of Lyme.Encounter Diagnosis: End: 07-Feb-2018 13:34 Nonsmoker, BMI 22.0-22.9, adult, Leukopenia, [facility] (current) use of anticoagulants (Renamed from manager intermediate current use of anticoagulant therapy), Anticoagulated on [...] patient does not have durable power of real estate attorney. The patient has noticed nothing from the geriatic depression scale. Other providers contributing to the patient's care are welder setter resistance machine (dr. meseret santana) and other: (eye- dr. [...] Medicine Annotation/Addendum On: 01-Mar-2017 12:47 Encounter Diagnosis: [facility] (current) use of anticoagulants (Renamed from [facility] current use of anticoagulant therapy) End: 01-Mar-2017 [...] patient does not have durable power of real estate attorney or living will . The patient has noticed nothing from the geriatic depression scale. Other providers contributing to the patient's care are other: (dr crawford for eyes). Note for Annual Medicare Exam: Pt has WWE done by her CARD DECORATOR.Refuses flu shotRefuses pnumonia or LymeEncounter Diagnosis: Nonsmoker, BMI 21.0-21.9, adult, Encounter for annual general medical examination with abnormal findings in adult, [facility] (current) use of anticoagulants (Renamed from [facility] current use of anticoagulant therapy), Liver cyst [facility] Phone Encounter On: 09-Nov-2016 16:54 [facility] End: 09-Nov-2016 16:55 Phone Encounter On: 15-Oct-2016 12:40 Encounter Diagnosis: [place] End: 15-Oct-2016 12:42 [facility] [...] her to start on linzess. Saw surgeron [place] CT of pelvis and abd with contrast, [...] patient does not have durable power of real estate attorney. The p atient has noticed nothing from the geriatic depression scale. Other providers contributing to the patient's care are other: (ENT and dr carwford for eyes). Note for Annual Medicare Exam: Pt has WWE done by her CARD DECORATOR., [ADDITIONAL REASON] Follow up for chronic medical [...] diet and still seeing lyme specialist in [place]- her weight comeing down and exercsing more [...] with Lyme dz symptoms- pt went to [place] and had lyme dz treatment-), has End: [...] chronic medical issues: seeing lyme specialist in [place] and on meds for this and [place]- [...]
--- OUTSIDE RECORDS SUMMARY | 2018-06-27 17:42 | XMS RPT_ITS | Continuity of Care Document ---
:1950 Author Organization [facility] Address [address] [facility] [address] [place] [address] Phone Care Team Providers Name Role Phone [...] in [address] Status: Active slagger (current) use of anticoagulants (Renamed from retirement current use of anticoagulant therapy) (Z79.01, V58.61) [...] Latif Start : 13-Sep-2017 Active Calcium 1200 1852-0127 MG-UNIT Oral Tablet Chewable daily (6895-4790 MG-UNIT) Active Cinnamon 500 MG Oral Capsule [...] Quantity: 30 {Tablet} Refills: 1 Ordered:17-Dec-2017 Johnnie BACK TUFTER, Selam Taveras BACK TUFTER, Selam Latif Start : 17-Dec-2017 Active Latanoprost [...] 500MG (Oral Tablet) 1 (one) Tablet bid n66tlcy for 10 days Quantity: 20 {Tablet} Refills: [...] Refills: 0 Ordered:02-Jun-2017 Johnnie DAVIES, Selam Taveras BACK TUFTER, Selam Latif Start : 02-Jun-2017 End : [...] (M85.80, 733.90) Status: Inactive as of 11-Mar-2012 [place] [facility] (H10.029, 372.03) Status: Inactive as of [...] Status: Resolved as of 21-Oct-2012 Vaccine for ogkhvudsci-ofeumpc-xppmtlbba with poliomyelitis (Z23, V06.3) Status: Inactive as of 21-Oct-2012 Procedures Procedure Dates Details Appendectomy Completed D&C Completed Comments: [facility] Tonsillectomy Completed Tubal Ligation Completed Date Value Details 16-Feb-2018 Venous Duplex Lower Extremity Result: Comments: See Note; NOTES: [facility] Cardiovascular Services [address] [place] [address] Venous Duplex US, Unilateral 02/15/18 1350 MR#: [id number] Acct: [id number] Name: YAHAIRA ENG Rep #: [id number] : 1950 67 From: Tony Valentino MD [...] Tony Valentino MD CC: Selam Blair NP; MUSICAL STRING MAKER-C Annie Mobley Date Dictated: 02/15/18 1350 Date Transcribed: 02/16/18812 Help Desk Representative: Signed 23-Dec-2017 Dexa Bone Density Study Result: Comments: See Note; NOTES: [facility] Imaging Services [address] [place] [address] Dexa Bone Density Study MR#: [id number] Acct: [id number] Name: YAHAIRA BRYANT Rep #: [id number] : 1950 F 67 From: Cole Coronado MD PCP: Selam Blair NP Status: REG CLI Study: Dexa Bone Density Study Date of Exam: 12/23/17 Exam# [id number] Ordering Dr: Selam Blair STUDY: DUAL ENERGY [...] Cole Coronado MD at 8:50 EDT Tel [phone], Service support , CC: Selam Blair NP Help Desk Representative: Signed 07-Oct-2017 SCREENING MAMM (CAD), BILAT Result: Comments: See Note; NOTES: [facility] Imaging Services [address] [place] [address] SCREENING MAMM (CAD), BILAT MR#: [id number] Acct: [id number] Name: YAHAIRA BRYANT Rep #: [id number] : 1950 F 67 From: Cole Coronado MD PCP: Selam Blair NP Status: REG CLI Study: SCREENING MAMM (CAD), BILAT Date of Exam: 10/07/17 Exam# [id number] Ordering Dr: Aliza Santana MD MAMMOGRAPHY - [...] delay biopsy of a clinically suspicious abnormality. [id number] Electronically Signed: Cole Coronado MD at 11:23 EDT Tel [phone], Service support , CC: Selam Blair NP; Aliza Santana MD Help Desk Representative: Signed 23-Sep-2017 Downtime Report Result: Comments: See Note; NOTES: [facility] Medical Records Department [address] [place] [address] Downtime Report MR#: [id number] Acct: [id number] Name: YAHAIRA BRYANT R Rep #: [id number] : 1950 67 From: Jered Kumar PCP: Selam Blair NP Status: REG CLI This patient was seen during an EMR downtime September 06, 2017 - September 13, 2017. This patient may have a combination of p aper and electronic documentation or all paper documentation. All documentation is viewable within the e-chart portion of [facility] for each patient visit. 16-Dec-2016 Liver Result: Comments: See Note; NOTES: [facility] Imaging Services [address] [facility] [place] [address] Liver MR#: [id number] Acct: [id number] Name: YAHAIRA BRYANT Rep #: [id number] : 1950 F 66 From: Jose Mcghee MD PCP: Selam Blair Status: REG CLI Study: Liver Date of Exam: 12/16/16 Exam# [id number] Ordering Dr: Selam Blair STUDY: ABDOMINAL ULTRASOUND [...] MD at 16:28 EDT , Service support [phone], CC: Selam Blair Help Desk Representative: Signed 21-Dec-2014 Aorta Result: Comments: See Note; NOTES: [facility] Imaging Services [address] [place] [address] Ultrasound Report MR#: [id number] Acct: [id number] Name: YAHAIRA BRYANT Rep #: [id number] : 1950 F 64 From: Cole Coronado MD PCP: Helen Barnes DO Status: REG CLI Study: Aorta Date of Exam: 12/21/14 Exam# [id number] Ordering Dr: Helen Barnes DO PROCEDURES: ULTRASOUN [...] Cole Coronado MD at 9:45 EDT Tel [phone], Service support [phone], CC: Helen Barnes DO Help Desk Representative: Signed 12-Dec-2014 Bilat Scrn Digital AND CAD Result: Comments: See Note; NOTES: [facility] Imaging Services [address] [place] [address] Breast Imaging Report MR#: [id number] Acct: [id number] Name: YAHAIRA BRYANT Rep # : [id number] : 1950 F 64 From: Gabino South MD PCP: Helen Barnes DO Status: REG CLI Study: Bilat Scrn Digital AND CAD Date of Exam: 12/12/14 Exam# [id number] Ordering Dr: Helen Barnes DO M AMMOGRAPHY [...] at 14:51 EDT Tel , Service support [phone], CC: Helen Barnes DO Help Desk Representative: Signed 12-Dec-2014 Bilat Scrn Digital AND CAD Result: Comments: See Note; NOTES: [facility] Imaging Services [address] [place] [address] Breast Imaging Report MR#: [id number] Acct: [id number] Name: YAHAIRA BRYANT Rep # : [id number] : 1950 F 64 From: Gabino South MD PCP: Helen Barnes DO Status: REG CLI Study: Bilat Scrn Digital AND CAD Date of Exam: 12/12/14 Exam# [id number] Ordering Dr: Helen Barnes DO A DDENDUM by Cole Coronado MD on 12/17/14 at 1003 ADDENDUM This is an addendum report for BI -RADS category. BI-RADS category 2. Electronically Signed: Cole Coronado MD at 10:03 EDT Tel [phone], Service support [phone], 12/17/14 1003 D ate cc: Helen Barnes [...] at 14:51 EDT Tel , Service support [phone], CC: Helen Barnes DO Help Desk Representative: Signed 03-Dec-2014 Operative Report Result: Comments: See Note; NOTES: [facility] Medical Records Department [address] [place] [address] Operative Report MR#: [id number] Acct: [id number] Name: YAHAIRA BRYANT Rep #: [id number] : 1950 64 From: Aliza Santana MD PCP: Helen Barnes DO Status: [facility] DATE OF SERVICE: 11/26/2014 DATE OF SERVICE: [...] time. Aliza Santana MD T: NTS JOB: [id number] 12/03/14 1321 <Electronically signed by An jamison Santana MD> Date Aliza Santana MD Cosigner Signature (If Indicated): Date CC: Aleyda Santana MD; Helen Barnes DO Date Dictated: 11/29/14918 Date Transcribed: 11/29/14918 Help Desk Representative: Signed 26-Nov-2014 Discharge Instruction Result: Comments: See Note; NOTES: [facility] Medical Records Department [address] [place] [address] Instructions for Home/Discharge Instructions 11/26/14 1200 MR#: [id number] ct: [id number] Name: YAHAIRA BRYANT Rep #: [id number] : 1950 64 From: Aliza Santana MD PCP: Helen Barnes DO Status: REG [facility] Discharge Diet: No Restrictions Discharge Activity: Return [...] Operative Report Result: Comments: See Note; NOTES: [facility] Medical Records Department [address] [facility] [place] [address] Operative Report 11/26/14 1159 MR#: [id number] Acct: [id number] Name: YAHAIRA DEJESUS Rep #: [id number] : 1950 64 From: Aliza Santana MD PCP: Helen Barnes DO Status: REG [facility] Y Location: [place] [address] Operative Report (Blank) Date of Procedure: 11/26/14 [...] MD; Helen Barnes DO Signed 05-Nov-2014 Spirometry (89377) Comments: good effort aand curve mild obstruction Result: 06-Jun-2014 Transvaginal Non- Result: Comments: See Note; NOTES: [facility] Imaging Services [address] [place] [address] Ultrasound Report MR#: [id number] Acct: [id number] Name: YAHAIRA BRYANT Rep #: [id number] : 1950 F 63 From: Telly Cruz DO PCP: Helen Barnes DO Status: REG CLI Study: Transvaginal Non- Date of Exam: 06/06/14 Exam# [id number] Ordering Dr: Izzy Becerra STUDY: ULTRASOUND TRANSVAGINAL [...] DO at 13:34 EST , Service support [phone], CC: Helen Barnes DO; Izzy Becerra MD Help Desk Representative: Signed 06-Jun-2014 Pelvic (Non ) Result: Comments: See Note; NOTES: [facility] Imaging Services [address] [place] [address] Ultrasound Report MR#: [id number] Acct: [id number] Name: YAHAIRA BRYANT Rep #: [id number] : 1950 F 63 From: Telly Cruz DO PCP: Helen Barnes DO Status: REG CLI Study: Pelvic (Non ) Date of Exam: 06/06/14 Exam# [id number] Ordering Dr: Izzy Becerra MD STUDY: ULTRASOUND [...] DO at 13:34 EST , Service support [phone], CC: Helen Barnes DO; Izzy Becerra MD Help Desk Representative: Signed 11-Oct-2013 Bilat Scrn Digital & CAD Result: Comments: See Note; NOTES: [facility] Imaging Services [address] [place] [address] Breast Imaging Report MR#: [id number] Acct: [id number] Name: YAHAIRA BRYANT Rep #: [id number] : 1950 F 63 From: Bradly Lr MD PCP: Helen Barnes DO Status: REG CLI Exam# [id number] Ordering Dr: Helen Barnes DO MAMMOGRAPHY - [...] at 10:37 EDT , Servic e support [phone], CC: Helen Barnes DO Help Desk Representative: Signed Family History Unknown Family Member Name [...] Value Details :54 CBC W/Diff, Automated Comments: [facility] [address] [place], [place], [address] Absolute Lymph 1.55 {X10_3/ul} (Normal) Range: 0.83-4.51 [...] 4.2-5.4 WBC 8.5 K/mm3 (Normal) Range: 4.4-11.0 66-Nbx-73891:54 Prothrombin Time w/INR Comments: [facility] [address] [facility] [address] [place], [place], [address] INR 2.2 (Normal) PROTIME 24.5 s (Abnormal) Range: 11.7-14.9 39-Fka-804490:33 Prothrombin Time w/INR Comments: [facility] [address] [place], [place], [address] INR 2.9 (Normal) PROTIME 30.5 s (Abnormal) Range: 11.7-14.9 97-Tar-784237:34 Prothrombin Time w/INR Comments: [facility] [address] [place], [place], [phone]) INR 2.7 (Normal) PROTIME 29.2 s (Abnormal) Range: 11.7-14.9 :41 Prothrombin Time w/INR Comments: [facility] [address] [place], [address] INR 3.0 (Normal) PROTIME 31.4 s (Abnormal) Range: 11.7-14.9 0-Qfd-701813:17 ANTINUCLEAR ANTIBODIES DIRECT Comments: [facility] (refer to report for specific site)refer to report for address and phone number YURIY-DIRECT Negative (Normal) Comments: Performed at: [facility] [employer] [id number] Director: Jairo Sears PhD, Phone: [phone] :17 Protein Electro.Ur-Random Comments: [facility] (refer to report for specific site)refer to report for address and phone number NOTE Comment (Normal) Comments: Protein electrophoresis scan will follow via computer,mail, or sharepoint developer delivery.Performed at: [facility]itudeSaint [facility] CenterFqszgq[address] [place] [id number] Director: Jairo Sears PhD, Phone: [phone] M-SPIKE,U % (Normal) Comments: NOT BSERVED GAMMA GLOB,U 15.5 % (Normal) BETA GLOB,U 33.2 % (Normal) RQANB-7-GYJW,U 9.5 % (Normal) PAPYM-0-NKIK,U 2.3 % (Normal) ALBUMIN,UR 39.4 % (Normal) PROTEIN,UR 8.3 mg/dL (Normal) :17 Protein Electroph, S Comments: [facility] (refer to report for specific site)refer to report for address and phone number NOTE: Comment (Normal) Comments: The SPE pattern appears essentially unremarkable. Evidenceof monoclonal protein is not apparent.Performed at: [facility] CloudAptitudeSaint [facility] CenterZbzlwf[address] [place] [id number] Director: Jairo Sears PhD, Phone: [phone] INTERPRETATION Comment (Normal) Comments: Protein electrophoresis scan will follow via computer,mail, or sharepoint developer delivery. A/G RATIO 1.6 (Normal) Range: 0.7-1.7 [...] w/INR Comments: [facility] [address] [place], [place], [address] INR 2.7 (Normal) PROTIME 28.9 s (Abnormal) Range: 11.7-14.9 :58 Bilirubin, Direct Comments: [facility] [address] [place], [place], [address] D BILI 0.18 mg/dL (Normal) Range: 0.00-0.30 :58 CBC W/Diff, Automated Comments: [facility] [address] [place], [place], [address] Absolute Lymph 1.49 {X10_3/ul} (Normal) Range: 0.83-4.51 [...] 4.2-5.4 WBC 3.3 K/mm3 (Abnormal) Range: 4.4-11.0 29-Wem-62361:58 Total Bilirubin Comments: [facility] [address] [place], [place], [address] T BILI 0.80 mg/dL (Normal) Range: 0.20-1.00 5-Rlb-629631:14 Prothrombin Time w/INR Comments: [facility] [address] [place], [place], [address] INR 2.6 (Normal) PROTIME 27.6 s (Abnormal) Range: 11.7-14.9 99-Elh-640897:01 CBC W/Diff, Automated Comments: [facility] [address] [place], [place], [address] Absolute Lymph 1.26 {X10_3/ul} (Normal) Range: 0.83-4.51 [...] 4.2-5.4 WBC 3.3 K/mm3 (Abnormal) Range: 4.4-11.0 79-Uvl-240224:01 Comprehensive Metabolic Profil Comments: [facility] [address] [place], [place], [address] GAP 9 (Normal) Range: 5-15 CO2 28.0 [...] Comments: Please note revised GLUCOSE reference range uquhtzvvp61/02/2018. 76-Eqt-730426:15 Prothrombin Time w/INR Comments: [facility] [address] [place], [address] INR 3.0 (Normal) PROTIME 31.3 s (Abnormal) Range: 11.7-14.9 :26 Prothrombin Time w/INR Comments: [facility] [address] [place], [address] INR 2.8 (Normal) PROTIME 29.3 s (Abnormal) Range: 11.7-14.9 99-Xoe-534106:50 Prothrombin Time w/INR Comments: [facility] [address] [place], [address] INR 2.7 (Normal) PROTIME 28.7 s (Abnormal) Range: 11.7-14.9 :35 Prothrombin Time w/INR Comments: [facility] [address] [place], [address] INR 2.9 (Normal) PROTIME 30.2 s (Abnormal) Range: 11.7-14.9 :44 Prothrombin Time w/INR Comments: [facility] [address] [place], [address] INR 2.9 (Normal) PROTIME 30.1 s (Abnormal) Range: 11.7-14.9 :55 Prothrombin Time w/INR Comments: [facility] [address] [place], [address] INR 2.8 (Normal) PROTIME 29.4 s (Abnormal) Range: 11.7-14.9 :10 Prothrombin Time w/INR Comments: [facility] [address] [place], [address] INR 2.4 (Normal) PROTIME 26.2 s (Abnormal) Range: 11.7-14.9 :09 Prothrombin Time w/INR Comments: [place] [address] [place], [address] INR 1.1 (Normal) PROTIME 14.0 s (Normal) Range: 11.7-14.9 :29 Prothrombin Time w/INR Comments: RESULT(S) PREVIOUSLY REPORTED ON MANUAL REQUISITION DURINGDOWNTIME.[facility] [address] [place], [address] INR 1.3 (Normal) PROTIME 16.4 s (Abnormal) Range: 11.7-14.9 :30 Prothrombin Time w/INR Comments: [place] [address] [place], [address] INR 2.0 (Normal) PROTIME 22.9 s (Abnormal) Range: 11.7-14.9 :01 Prothrombin Time w/INR Comments: [facility] [address] [place], [address] INR 1.5 (Normal) PROTIME 18.0 s (Abnormal) Range: 11.7-14.9 :46 Prothrombin Time w/INR Comments: [place] [address] [place], [address] INR 1.9 (Normal) PROTIME 22.2 s (Abnormal) Range: 11.7-14.9 77-Wcw-640415:25 Prothrombin Time w/INR Comments: [facility] [address] [place], [place], [phone] INR 1.9 (Normal) PROTIME 22.0 s (Abnormal) Range: 11.7-14.9 :59 Prothrombin Time w/INR Comments: [facility] [address] [place], [address] INR 2.0 (Normal) PROTIME 22.8 s (Abnormal) Range: 11.7-14.9 :58 Prothrombin Time w/INR Comments: [facility] [address] [place], [address] INR 1.8 (Normal) PROTIME 20.7 s (Abnormal) Range: 11.7-14.9 16-Kur-103955:31 Prothrombin Time w/INR Comments: [facility] [address] [place], [place], [phone]) INR 1.7 (Normal) PROTIME 19.9 s (Abnormal) Range: 11.7-14.9 53-Bwu-346594:20 Prothrombin Time w/INR Comments: [facility] [address] [place], [address] INR 2.6 (Normal) PROTIME 27.9 s (Abnormal) Range: 11.7-14.9 :39 Prothrombin Time w/INR Comments: [address] [place], [place], [phone] INR 2.9 (Normal) PROTIME 30.5 s (Abnormal) Range: 11.7-14.9 46-Dyp-057309:03 Rapid Flu (21464 x 2) Influenza A Ag neg (Normal) 80-Kzz-681335:00 Prothrombin Time w/INR Comments: [facility] [address] [place], [phone] ; See pt message INR 3.7 (Abnormal) Comments: CRITICAL VALUE VERIFIED. CALLED TO KOLTON 05/31/17 1130 Nii BarajasRESULTS READ BACK BY SAME. PROTIME 35.0 s (Abnormal) Range: 11.7-14.9 :21 Prothrombin Time w/INR Comments: [facility] [address] [place], [address] INR 4.7 (Abnormal) Comments: CRITICAL VALUE VERIFIED. CALL[facility] TO [facility]NI AT [facility]05/24/17 0956 Violeta Aide.RESULTS READ BACK BY DAVID . PROTIME 42.4 s (Abnormal) Range: 11.7-14.9 78-Xrm-744656:27 Prothrombin Time w/INR Comments: [facility] [address] [place], [address] INR 1.9 (Normal) PROTIME 20.9 s (Abnormal) Range: 11.7-14.9 :42 Prothrombin Time w/INR Comments: [facility] [address] [place], [address] INR 4.3 (Abnormal) Comments: CRITICAL VALUE VERIFIED. CALLED TO 05/10/17 0830 Josue Velazquez.RESULTS READ BACK BY . PROTIME 39.8 s (Abnormal) Range: 11.7-14.9 :18 Prothrombin Time w/INR Comments: [facility] [address] [place], [address] INR 2.4 (Normal) PROTIME 24.8 s (Abnormal) Range: 11.7-14.9 :18 Prothrombin Time w/INR Comments: [facility] [address] [place], [address] INR 2.4 (Normal) PROTIME 25.2 s (Abnormal) Range: 11.7-14.9 89-Xfd-668632:00 Prothrombin Time w/INR Comments: [facility] [address] [place], [address] INR 2.5 (Normal) PROTIME 25.8 s (Abnormal) Range: 11.7-14.9 :32 Prothrombin Time w/INR Comments: [facility] [address] [place], [address] INR 2.1 (Normal) PROTIME 22.7 s (Abnormal) Range: 11.7-14.9 :23 Prothrombin Time w/INR Comments: [facility] [address] [place], [address] INR 2.3 (Normal) PROTIME 24.6 s (Abnormal) Range: 11.7-14.9 :14 Prothrombin Time w/INR Comments: [facility] [address] [place], [address] INR 2.0 (Normal) PROTIME 21.9 s (Abnormal) Range: 11.7-14.9 :18 Prothrombin Time w/INR Comments: [facility] [address] [place], [address] INR 2.5 (Normal) PROTIME 25.6 s (Abnormal) Range: 11.7-14.9 :39 Prothrombin Time w/INR Comments: [facility] [address] [place], [address] INR 2.1 (Normal) PROTIME 22.7 s (Abnormal) Range: 11.7-14.9 :40 Prothrombin Time w/INR Comments: [facility] [address] [place], [address] INR 2.6 (Normal) PROTIME 26.8 s (Abnormal) Range: 11.7-14.9 :40 Prothrombin Time w/INR Comments: [facility] [address] [place], [address] INR 2.2 (Normal) PROTIME 23.8 s (Abnormal) Range: 11.7-14.9 9-Mdx-268295:21 Prothrombin Time w/INR Comments: [facility] [address] [place], [address] INR 1.8 (Normal) PROTIME 20.1 s (Abnormal) Range: 11.7-14.9 :30 Prothrombin Time w/INR Comments: [facility] [address] [place], [address] INR 3.0 (Normal) PROTIME 30.2 s (Abnormal) Range: 11.7-14.9 :45 Prothrombin Time w/INR Comments: [facility] [address] [place], [address] INR 2.9 (Normal) PROTIME 29.1 s (Abnormal) Range: 11.7-14.9 :52 Prothrombin Time w/INR Comments: [facility] [address] [place], [address] INR 1.4 (Normal) PROTIME 17.0 s (Abnormal) Range: 11.7-14.9 :27 Prothrombin Time w/INR Comments: [facility] [address] [place], [address] INR 2.0 (Normal) PROTIME 21.7 s (Abnormal) Range: 11.7-14.9 :21 Prothrombin Time w/INR Comments: [facility] [address] [place], [address] INR 2.3 (Normal) PROTIME 24.1 s (Abnormal) Range: 11.7-14.9 :43 Prothrombin Time w/INR Comments: [facility] [address] [place], [address] INR 2.9 (Normal) PROTIME 29.1 s (Abnormal) Range: 11.7-14.9 :47 Prothrombin Time w/INR Comments: [facility] [address] [place], [address] INR 2.3 (Normal) PROTIME 24.0 s (Abnormal) Range: 11.7-14.9 :25 CBC W/Diff, Automated Comments: [facility] [address] [place], [address] ; see other message Absolute [...] Range: 4.4-11.0 :25 Comprehensive Metabolic Profil Comments: [facility] [address] [place], [place], [phone] GAP 3 (Abnormal) Range: 5-15 CO2 28.0 [...] w/INR Comments: [facility] [address] [place], [address] INR 3.5 (Abnormal) Comments: CRITICAL VALUE VERIFIED. CALLED TO PATRICE Longoria07/07/16 [facility] Radha Calderon.RESULTS READ BACK BY SAME . PROTIME 33.9 s (Abnormal) Range: 11.7-14.9 :25 Thyroid Stim Hormone (TSH) Comments: [facility] [address] [place], [address] TSH 3.25 {uIU/mL} (Normal) Range: 0.358-3.74 :47 Prothrombin Time w/INR Comments: [facility] [address] [place], [address] INR 2.6 (Normal) Comments: ADDENDA: handled by Dr. Phillips PROTIME 27.5 s (Abnormal) Range: 11.7-14.9 :32 Prothrombin Time w/INR Comments: [facility] [address] [place], [address] INR 2.3 (Normal) PROTIME 25.5 s (Abnormal) Range: 11.7-14.9 :15 Prothrombin Time w/INR Comments: [facility] [address] [place], [address] INR 2.6 (Normal) PROTIME 27.7 s (Abnormal) Range: 11.7-14.9 :29 Prothrombin Time w/INR Comments: [facility] [address] [place], [address] INR 1.3 (Normal) PROTIME 16.7 s (Abnormal) Range: 11.7-14.9 :19 Prothrombin Time w/INR Comments: [facility] [id number] [place], [address] INR 2.1 (Normal) PROTIME 23.3 s (Abnormal) Range: 11.7-14.9 :14 Prothrombin Time w/INR Comments: [facility] [id number] [place], [address] INR 2.0 (Normal) PROTIME 22.5 s (Abnormal) Range: 11.7-14.9 :21 Prothrombin Time w/INR Comments: [facility] [address] [place], [address] INR 2.7 (Normal) PROTIME 28.5 s (Abnormal) Range: 11.7-14.9 :30 Prothrombin Time w/INR Comments: [facility] [address] [place], [address] INR 2.4 (Normal) PROTIME 25.9 s (Abnormal) Range: 11.7-14.9 :41 Prothrombin Time w/INR Comments: [place] [address] [place], [address] INR 2.5 (Normal) PROTIME 26.9 s (Abnormal) Range: 11.7-14.9 :09 Prothrombin Time w/INR Comments: [place] [address] [place] [place], [address] INR 3.4 (Normal) PROTIME 34.4 s (Abnormal) Range: 11.7-14.9 :11 Prothrombin Time w/INR Comments: [place] [address] [place], [address] INR 2.5 (Normal) PROTIME 26.6 s (Abnormal) Range: 11.7-14.9 :33 Prothrombin Time w/INR Comments: [place] [address] [place], [address] INR 1.5 (Normal) PROTIME 18.1 s (Abnormal) Range: 11.7-14.9 :12 Prothrombin Time w/INR Comments: [place] [address] [place], [address] INR 1.1 (Normal) PROTIME 14.4 s (Normal) Range: 11.7-14.9 :51 Prothrombin Time w/INR Comments: [place] [address] [place], [address] INR 3.6 (Abnormal) Comments: CRITICAL VALUE REPEATED AND VERIFIED. CALLED TO Maycol DAVISON02/25/15 1001 Elsie Longoria.RESULTS READ BACK BY MARGUERITE . PROTIME 35.3 s (Abnormal) Range: 11.7-14.9 :23 Prothrombin Time w/INR Comments: [place] [address] [place], [address] INR 3.3 (Normal) PROTIME 33.3 s (Abnormal) Range: 11.7-14.9 :13 Prothrombin Time w/INR Comments: [facility] [address] [place], [address] INR 2.4 (Normal) PROTIME 26.5 s (Abnormal) Range: 11.7-14.9 :32 Prothrombin Time w/INR Comments: [address] [place], [address] INR 1.4 (Normal) PROTIME 17.8 s (Abnormal) Range: 11.7-14.9 :09 Prothrombin Time w/INR Comments: [address] [place], [address] INR 1.2 (Normal) PROTIME 15.9 s (Abnormal) Range: 11.7-14.9 :12 Prothrombin Time w/INR Comments: [address] [place], [address] INR 2.4 (Normal) PROTIME 26.4 s (Abnormal) Range: 11.7-14.9 :20 Prothrombin Time w/INR Comments: [address] [place], [address] INR 2.2 (Normal) PROTIME 24.5 s (Abnormal) Range: 11.7-14.9 :11 Prothrombin Time w/INR Comments: Test performed at:[place] [address] [facility] [place] [address] INR 2.2 (Normal) PROTIME 24.1 s (Abnormal) Range: 11.7-14.9 :29 Prothrombin Time w/INR Comments: Test performed at:[facility] [address] [place] [address] INR 3.7 (Abnormal) Comments: CRITICAL VALUE REPEATED AND VERIFIED. CALLED TO KIKE WOMACK12/21/14 Frida Kumar.RESULTS READ BACK BY SAME . PROTIME 36.5 s (Abnormal) Range: 11.7-14.9 :25 Prothrombin Time w/INR Comments: Test performed at:[facility] [address] [place] [address] INR 2.5 (Normal) PROTIME 27.1 s (Abnormal) Range: 11.7-14.9 :23 Miscellaneous Lab Procedure Comments: Comments: [id number] PTH PLUS CALCIUM LAV AND RED RFTest(s) Ordered: [id number] PTH PLUS CALCIUM LAV AND RED RFTest performed at:[facility] [address] [place] [address] [facility] Comments: TEST RESULT LIMITSCa+PTH Intact Calcium, Serum [...] - 65 < 8.6 TESTING PERFORMED AT [facility]. ORIGINAL REPORT ON FILE IN LAB CONTAINS AD DITIONAL TEST SITE INFORMATION. :23 Prothrombin Time w/INR Comments: Test performed at:[facility] [address] [place] [id number] INR 4.0 (Abnormal) Comments: CRITICAL VALUE REPEATED AND VERIFIED. CALLED TO AGOGWW59/11/15 0933 Fletcher Foote.RESULTS READ BACK BY SAME . PROTIME 38.3 s (Abnormal) Range: 11.7-14.9 :23 Vitamin D 1,25-Dihydroxy Comments: Test performed at:[facility] [address] [place] [address] VITD 1,25 52422 55.5 pg/mL (Normal) Range: 19.9-79.3 Comments: Performed at: [address] [id number] Director: Juan Ontiveros MD, Phone: [phone] :23 Vitamin D,25 Hydroxy Comments: Test performed at:[facility] [address] [place] [address] Vitamin D 25-OH 70.3 ng/mL (Normal) Comments: Vitamin D 25(OH) Status Range Deficiency <20 ng/mL (50nmol/L) Insuffciency 20 - 30 ng/mL (50 - 75 nmol/L) Sufficiency 30 - 100 ng/mL (75 - 250 nmol/L) Toxicity >100 ng/mL (>250 nmol/L) :04 Prothrombin Time w/INR Comments: Test performed at:[facility] Clb[address]ius[address] [facility] [place] [address] INR 2.1 (Normal) PROTIME 23.5 s (Abnormal) Range: 11.7-14.9 :12 Prothrombin Time w/INR Comments: Test performed at:[facility] [address] [place] [address] INR 1.6 (Normal) PROTIME 18.9 s (Abnormal) Range: 11.7-14.9 :10 Prothrombin Time w/INR Comments: Test performed at:[facility] [address] [place], [place] [address] INR 1.1 (Normal) PROTIME 14.1 s (Normal) Range: 11.7-14.9 [id number]: ENDOMETRIAL BX/CURETTINGS See Note (Normal) Comments: Test performed at:[facility] [address] [place] [address] 49 Comments: Patient: YAHAIRA BRYANT : 1950 (64/F) Acct Num: [id number] Phys: Aliza Santana MD Unit Num: [id number] Loc: [facility] Specimen: [id number] Received: 11/26/14 - 1217 Spec Type: EN [...] cassette. / NICOLÁS:papito 11/26/14 TC: 5 CPT: 83559 HEADER OPERATION: Hysteroscopy, diagnostic, D AND C PRE-OP DIAGNOSIS: Postmenopausal bleeding TISSUE SUBMITTED: Endometrial curettings MICROSCOPIC DESCRIPTION Slides are reviewed. MICROSCOPIC DIAGNOSIS Endometrial curettings: Scant strips of benign endometrial epithelium and superficial fragment of benign endometrial tissue, consistent with atrophic endometri um. Fragments of benign endocervical epithelium. SJ:papito 11/27/14 Signed Jeffy Suazo 11/27/14 <signature on file> [id number] INR Fingerstick Comments: Test performed at:[facility] [address] [facility] [place] [address] INR ISTAT 1.10 (Normal) Comments: Critical Value > 3.5; ADDENDA: this is for pre-op, will resume tomorrow and recheck it in 1 week. [id number]-[id number]:39 Prothrombin Time Fingerstick Comments: Test performed at:[facility] [address] [place] [address] PROTIME ISTAT 13.2 {SEC} (Normal) Range: 11.9-14.4 Comments: Reference Range 11.9 - 14.4 87-Fkb-562669:41 Partial Thromboplast Time Comments: Test performed at:[facility] [address] [place] [address] PTT 40.9 s (Abnormal) Range: 24.1-36.2 54-Ano-[id number]:41 Prothrombin Time w/INR Comments: Test performed at:[facility] [address] [place] [address] INR 2.6 (Normal) PROTIME 27.4 s (Abnormal) Range: 11.7-14.9 48-Iee-306618:41 Type AND Screen Comments: Surgery Date: 11/26/14Hx of Preganancy in last 3 Months NoEver experience any problems with transfusion(s)? NHx of Transfusion in last 3 Months NReason for Type AND Screen/Red Cells: SURGERYSURGI ADLESO PROCEDURE: .Test performed at:[facility] [address] [place] [address] Antibody Screen NEGATIVE (Normal) BLOOD TYPE GEL A POSITIVE (Normal) :09 CBC W/Diff, Automated Comments: Test performed at:[facility] [address] [place] [address] Absolute Lymph 2.07 {X10_3/ul} (Normal) [...] 4.2-5.4 WBC 3.9 K/mm3 (Abnormal) Range: 4.4-11.0 59-Cug-06596:09 Comprehensive Metabolic Profil Comments: Test performed at:[facility] [address] [place], [place] [address] GAP 6 (Normal) Range: 5-15 CO2 29.0 [...] Test performed at:[facility] [address] [place] [address] INR 2.4 (Normal) PROTIME 25.8 s (Abnormal) Range: 11.7-14.9 :13 Prothrombin Time w/INR Comments: Test performed at:[facility] [address] [place] [address] INR 1.8 (Normal) PROTIME 21.2 s (Abnormal) Range: 11.7-14.9 :06 Prothrombin Time w/INR Comments: Test performed at:[facility] [address] [place] [address] INR 2.2 (Normal) PROTIME 24.4 s (Abnormal) Range: 11.7-14.9 :50 Prothrombin Time w/INR Comments: Test performed at:[facility] [address] [place] [address] INR 1.7 (Normal) PROTIME 20.3 s (Abnormal) Range: 11.7-14.9 86-Ost-[id number]:16 Estrogen, Total, Serum Comments: Comments: TSHHas Patient had Radioactive Injection for X-ray?: NTest performed at:[facility] [address] [place] [address] ESTROGEN 4549 54 pg/mL (Normal) Comments: Prepubertal <40 Female Cycle: 1-10 Days 61 - 394 11-20 Days 122 - 437 21-30 Days 156 - 350 Post-Menopausal <40 HMG Treatment for Ovulation Induction: 400 - 800Performed at: [facility] Lab[address] [id number] Director: Juan Ontiveros MD, Phone: [phone] [id number]-[id number]:16 Free T3 Comments: Comments: TSHTest performed at:[facility] [address] [place] [address] FREE T3 2.6 pg/mL (Normal) Range: 2.18-3.98 60-Sab-325036:16 Hemoglobin A1c Comments: Test performed at:[facility] [address] [facility] [place] [address] HGB A1C 5.0 % (Normal) Range: 4.2-6.3 91-Uln-624359:16 Progesterone Level Comments: Test performed at:[facility] [address] [place] [address] Progesterone 0.48 ng/mL (Normal) Comments: Progesterone Reference Table: UNITS Female: Follicular 0.15 - 1.40 ng/mL Luteal 3.34 - 25.56 ng/mL Mid-luteal 4.44 - 28.03 ng/mL Postmenopausal 0.0 - 0.73 ng/mL : 1st Trimester 11.22 - 90.00 ng /mL 2nd Trimester 25.55 - 89.40 ng/mL 3rd Trimester 48.40 -422.50 ng/mL 18-Khz-[id number]:16 T4 Free Direct Comments: Comments: TSHTest performed at:[facility] Fiywbbjien4617 [facility] [place] [address] T4 FREE DIRECT 1.16 ng/dL (Normal) Range: 0.76-1.46 81-Lhx-075112:16 Testosterone, Serum Total Comments: Test performed at:[facility] Anjwvqhcof3554 [facility] [place] [address] ; ordered by Dr. Santana Testosterone 35 ng/dL (Normal) Range: 14-76 19-Ebx-770455:16 Thyroid Stim Hormone (TSH) Comments: Comments: TSHTest performed at:[facility] Huozetgseq7573 [facility] [place] [address] TSH 1.53 {uIU/mL} (Normal) Range: 0.358-3.74 :11 Prothrombin Time w/INR Comments: Test performed at:[facility] [address] [place] [address] INR 1.8 (Normal) PROTIME 20.9 s (Abnormal) Range: 11.7-14.9 :27 Prothrombin Time w/INR Comments: Test performed at:[facility] [address] [place] [address] INR 2.2 (Normal) PROTIME 24.8 s (Abnormal) Range: 11.7-14.9 :08 Prothrombin Time w/INR Comments: Test performed at:[facility] [address] [place] [address] INR 4.8 (Abnormal) Comments: CRITICAL VALUE REPEATED AND VERIFIED. CALLED TO RADHA WOMACK10/01/14 0855 Nii Lind.RESULTS READ BACK BY DAVID. PROTIME 44.0 s (Abnormal) Range: 11.7-14.9 :14 Prothrombin Time w/INR Comments: Test performed at:[facility] [address] [place] [address] INR 2.6 (Normal) PROTIME 27.9 s (Abnormal) Range: 11.7-14.9 :16 Prothrombin Time w/INR Comments: Test performed at:[facility] [address] [place] [address] INR 5.0 (Abnormal) Comments: CRITICAL VALUE REPEATED AND VERIFIED. CALLED TO Tami DAVISON09/21/14 0809 Elsie Longoria.RESULTS READ BACK BY CONNER . PROTIME 45.5 s (Abnormal) Range: 11.7-14.9 :10 Prothrombin Time w/INR Comments: Test performed at:[facility] [address] [place] [address] INR 3.2 (Normal) PROTIME 32.8 s (Abnormal) Range: 11.7-14.9 :24 Miscellaneous Lab Procedure Comments: Comments: [id number] HHV-6 IGM,SST,REFRIGERATETest(s) Ordered: [id number] HHV-6 IGM,SST,REFRIGERATETest performed at:[facility] [address] [place] [address] [facility] Comments: TEST RESULT UNITS REFERENCE INTERVALHuman Herpes Virus Type 6 IgM <1:10 Neg:<1:10Results for this test are for research purposes only by LAB (Normal) theassay's cisco network architect. The performance characteristics ofthis product have not been established. Results should notbe used as a diagnostic procedure without confirmation ofthe diagnosis by another med TEST ically established diagnosticproduct or procedure. TESTING PERFORMED AT [facility]. ORIGINAL REPORT ON FILE IN LAB CONTAINS ADDITIONAL TEST SITE IN FORMATION. :18 ANTINUCLEAR ANTIBODIES DIRECT Comments: Test performed at:[facility] Ajvlnunltg6252 [facility] [place] [address] YURIY-DIRECT Negative (Normal) Comments: Performed at: [address] [id number] Director: Narendra Covarrubias PhD, Phone: [phone] :18 CMV Acute Antibody IgM Comments: Test performed at:[place] [address] [facility] [place] [address] CMVIgM AB < 30.0 AU/mL (Normal) Range: 0.0-29.9 Comments: Negative <30.0 Equivocal 30.0 - 34.9 Positive >34.9A positive result is generally indicative of acuteinfection, react ivation or persistent IgM production.Performed at: [address] [id number] Director: Narendra Covarrubias PhD, Phone: [phone] at: [address] [id number] Director: Juan Ontiveros MD, Phone: [phone] at: [address] [place] [address] QCO2694 [place], [place] [id number] Director: Bill Tao PhD, Phone: [phone] :18 CMV Antibody IgG Comments: Test performed at:[facility] [address] [place] [address] CMV AB IgG > 10.00 U/mL (Abnormal) Range: 0.00-0.59 Comments: Negative <0.60 Equivocal 0.60 - 0.69 Positive >0.69 :18 EBV Acute Prof IgG / IgM Comments: Test performed at:[facility] Kwtsimimii9209 [facility] [place] [address] INTERPRETATION Comment (Normal) Comments: EBV Interpretation ChartInterpretation EBV-IgM EA(D)-IgG VCA-IgG EBNA-IgGEBV Seronegative - - - -Early Phase + - - -Acute Primary + +or- + -InfectionConvalescence/Past - +or- + +InfectionReactivated +or- + + +Infection + Antibody Present - Antibody Absent EB-NAg [id number] 71.5 U/mL (Abnormal) Range: 0.0-17.9 Comments: Negative <18.0 Equivocal 18.0 - 21.9 Positive >21.9 EB-VCA [id number] > 600.0 U/mL (Abnormal) Range: 0.0-17.9 Comments: Negative <18.0 Equivocal 18.0 - 21.9 Positive >21.9 EB-EA IgG [id number] 21.1 U/mL (Abnormal) Range: 0.0-8.9 Comments: Hepatitis A, Hepatitis C and HIV antibodies may cross-reactwith this assay. Negative < 9.0 Equivocal 9.0 - 10.9 Positive >10.9 EB-VCA [id number] < 36.0 U/mL (Normal) Range: 0.0-35.9 Comments: Negative <36.0 Equivocal 36.0 - 43.9 Positive >43.9 :18 Ferritin Comments: Test performed at:[facility] [address] [place] [address] FERRITIN 28 ng/mL (Normal) Range: 8-252 :18 HLA B27 Negative (Normal) Comments: Test performed at:[facility] Uybkfzjwru5604 [facility] [place] [address] Comments: HLA-B*27 NegativeHLA Lab CLIA ID Number [id number] test was performed using PCR (Polymerase ChainReaction)/SSOP (Sequence Specific Oligonucleotide Probes)technique. SBT (Sequence Based Typing) and/ or SSP(Sequence Specific Primers) may be used as supplementalmethods when necessary. Please contact [facility] CustomerService at if you have any questions. Director of HLA Laboratory Dr Bill Tao, PhD :18 Homocysteine Comments: Test performed at:[facility] [address] [place] [address] HOMOCYSTEINE 6.7 umol/L (Normal) Range: 3.2-10.7 :18 IgG Subclasses Comments: Test performed at:[facility] [address] [place] [address] IgG, SUBCLASS 4 1 mg/dL (Normal) Range: 1-291 Comments: Results verified by repeat testing IgG, SUBCLASS 3 52 mg/dL (Normal) Range: 41-129 IgG, SUBCLASS 2 145 mg/dL (Normal) Range: 117-747 IgG, SUBCLASS 1 264 mg/dL (Abnormal) Range: 422-1292 IGG, QUANT 520 mg/dL (Abnormal) Range: 700-1600 :18 Miscellaneous Lab Procedure Comments: Comments: [id number] HHV-6 IGG,SST,REFRIGERATETest(s) Ordered: [id number] HHV-6 IGG,SST,REFRIGERATEList Test(s) Ordered by Physician: IGA SUBCLASSES, #[id number], SERUM,RM TEMP, 2 MLTest performed at:[facility] [address] [place] [address] [facility] Comments: TEST RESULT UNITS REFERENCE INTERVALHHV 6 IgG Antibodies 2.42 High index Negative <0.76 Equivocal 0.76 - 0.99 LAB (Normal) Positive >0.99Results for this test are for research purposesonly by the assay's cisco network architect. The performancecharacteristics of this product have not beenestablishe TEST d. Results should not be used as adiagnostic procedure without confirmation of thediagnosis by another medically established diagnosticproduct or procedure. TESTING PERFORMED AT [facility]. ORIGINAL REPORT ON FILE IN LAB CONTAINS ADDITIONAL TEST SITE INFORMATION. :18 Miscellaneous Lab Procedure Comments: Comments: [id number] HLA-DR4,SST,REFRIGERATETest(s) Ordered: [id number] HLA-DR4,SST,REFRIGERATETest performed at:[facility] [place] [address] [facility] Comments: TEST RESULT UNITS REFERENCE INTERVALHLA DRB1 (IR) DRB1 DRB1*07:NIRAV DRB1 DRB1*- Code Translation: NIRAV 07:01/07:09/07:10N/07:11/07:14/07:22 LAB (Normal) /07:24 /07:25/07:26N/07:27/07:28/07:29HLA allele interpretation for all loci based on IMGT/HLAdatabase version 3.15ROGELIO Lab CLIA ID Number [id number] TEST TESTING PERFORMED AT [facility]. ORIGINAL REPORT ON FILE IN LAB CONTAINS ADDITIONAL TEST SITE INFORMATION. HLA Methodology:HLA result s were obtained using sequence based typing (SBT),sequence specific oligonucleotide probes (SSOP), and/orsequence specific primers (SSP) as needed to obtain therequired resolution. Please contact [facility] [phone] if you have any questions.Director of HLA LaboratoryDr Bill Tao, PhD :18 Miscellaneous Lab Procedure 2 Comments: Comments: [id number] HHV- 6 IGG,SST,REFRIGERATETest(s) Ordered: [id number] HHV-6 IGG,SST,REFRIGERATEList Test(s) Ordered by Physician: IGA SUBCLASSES, #[id number], SERUM,RM TEMP, 2 MLTest performed at:[facility] [address] [place] [address] [facility] Comments: TEST RESULT UNITS REFERENCE INTERVALIgA, Subclasses (1-2) Immunoglobulin A, Qn, Serum 161 mg/dL 91 - 414 IgA, Subclass 1 132.0 mg/dL LAB (Normal) 73.2 - 301.2 IgA, Subclass 2 6.2 Low mg/dL 13.4 - 97.9 TESTING PERFORMED AT [facility]. ORIGINAL REPORT ON FILE IN LAB CONTAINS MANFRED TEST TIONAL TEST SITE INFORMATION. 2 :18 Prothrombin Time w/INR Comments: Test performed at:[place] [address] [place], [place] [id number] INR 1.9 (Normal) PROTIME 22.3 s (Abnormal) Range: 11.7-14.9 :18 Vitamin B12 664 pg/mL (Normal) Comments: Test performed at:[facility] [address] [place] [address] Range: 211-911 :18 Vitamin D,25 Hydroxy Comments: Test performed at:[facility] [address] [place] [address] Vitamin D 25-OH 58.8 ng/mL (Normal) Comments: Vitamin D 25(OH) Status Range Deficiency <20 ng/mL (50nmol/L) Insuffciency 20 - 30 ng/mL (50 - 75 nmol/L) Sufficiency 30 - 100 ng/mL (75 - 250 nmol/L) Toxicity >100 ng/mL (>250 nmol/L) :13 CBC W/Diff, Automated Comments: Test performed at:[facility] [address] [place] [address] Absolute Lymph 2.08 {X10_3/ul} (Normal) Range: [...] Test performed at:[facility] Jibofibfqf1779 [facility] [place] [address] GAP 7 (Normal) Range: 5-15 [...] Test performed at:[facility] Zpzpokqmjz9320 [facility] [address] [place], [place] [phone] VLDL 9 mg/dL (Normal) Range: 5-40 LDL [...] Test performed at:[facility] [address] [place] [address] INR 1.5 (Normal) PROTIME 18.4 s (Abnormal) Range: 11.7-14.9 :17 INR Fingerstick Comments: Test performed at:[facility] [address] [place] [address] INR ISTAT 1.50 (Normal) Comments: Critical Value > 3.5 :17 Prothrombin Time Fingerstick Comments: Test performed at:[facility] [address] [place] [address] PROTIME ISTAT 17.6 {SEC} (Abnormal) Range: 11.9-14.4 Comments: Reference Range 11.9 - 14.4 :09 INR Fingerstick Comments: Test performed at:[facility] [address] [place] [address] INR ISTAT 1.40 (Normal) Comments: Critical Value > 3.5 :09 Prothrombin Time Fingerstick Comments: Test performed at:[facility] [address] [place] [address]( PROTIME ISTAT 17.1 {SEC} (Abnormal) Range: 11.9-14.4 Comments: Reference Range 11.9 - 14.4 :09 Prothrombin Time w/INR Comments: Test performed at:[facility] [address] [place] [address] INR 1.1 (Normal) PROTIME 14.6 s (Normal) Range: 11.7-14.9 :11 INR Fingerstick Comments: Test performed at:[facility] [address] [place] [address] INR ISTAT 1.20 (Normal) Comments: Critical Value > 3.5 :11 Prothrombin Time Fingerstick Comments: Test performed at:[facility] [address] [place] [place] [address] PROTIME ISTAT 13.9 {SEC} (Normal) Range: 11.9-14.4 Comments: Reference Range 11.9 - 14.4 :06 INR Fingerstick Comments: Test performed at:[facility] [address] [place] [address] INR ISTAT 1.10 (Normal) Comments: Critical Value > 3.5 :06 Prothrombin Time Fingerstick Comments: Test performed at:[facility] [address] [place] [address] PROTIME ISTAT 13.6 {SEC} (Normal) Range: 11.9-14.4 Comments: Reference Range 11.9 - 14.4 :28 INR Fingerstick Comments: Test performed at:[facility] [address] [place] [address] INR ISTAT 2.20 (Normal) Comments: Critical Value > 3.5 :28 Prothrombin Time Fingerstick Comments: Test performed at:[facility] [address] [place] [address] PROTIME ISTAT 25.0 {SEC} (Abnormal) Range: 11.9-14.4 Comments: Reference Range 11.9 - 14.4 :19 INR Fingerstick Comments: Test performed at:[facility] [address] [place] [address] INR ISTAT 2.70 (Normal) Comments: Critical Value > 3.5 :19 Prothrombin Time Fingerstick Comments: Test performed at:[facility] [address] [place] [address] PROTIME ISTAT 30.6 {SEC} (Abnormal) Range: 11.9-14.4 Comments: Reference Range 11.9 - 14.4 :09 Prothrombin Time w/INR Comments: Test performed at:[facility] [address] [place] [address] INR 3.2 (Normal) PROTIME 32.6 s (Abnormal) Range: 11.7-14.9 :22 Prothrombin Time w/INR Comments: Test performed at:[facility] [address] [place] [address] INR 2.6 (Normal) PROTIME 27.8 s (Abnormal) Range: 11.7-14.9 :22 Prothrombin Time w/INR Comments: Test performed at:[facility] [address] [place] [address] INR 3.0 (Normal) PROTIME 30.9 s (Abnormal) Range: 11.7-14.9 :12 Prothrombin Time w/INR Comments: Test performed at:[facility] [address] [place] [address] INR 3.4 (Normal) PROTIME 33.7 s (Abnormal) Range: 11.7-14.9 :10 Prothrombin Time w/INR Comments: Test performed at:[facility] [address] [place] [address] INR 3.7 (Abnormal) PROTIME 36.4 s (Abnormal) Range: 11.7-14.9 87-Ynl-374787:20 Prothrombin Time w/INR Comments: Test performed at:[facility] [address] [place] [address] INR 3.0 (Normal) PROTIME 31.0 s (Abnormal) Range: 11.7-14.9 :10 Prothrombin Time w/INR Comments: Test performed at:[facility] [address] [place] [address] INR 3.0 (Normal) PROTIME 30.7 s (Abnormal) Range: 11.7-14.9 :04 Prothrombin Time w/INR Comments: Test performed at:[facility] [address] [place] [address] INR 1.7 (Normal) PROTIME 19.7 s (Abnormal) Range: 11.7-14.9 :17 Prothrombin Time w/INR Comments: Test performed at:[facility] [address] [place] [address] INR 1.8 (Normal) PROTIME 21.1 s (Abnormal) [...] 4.2-5.4 WBC 4.7 K/mm3 (Normal) Range: 4.4-11.0 8-Sep-26745:55 CMP Comments: DR BARNES ORDERED PT ONLY [...] Comments: Please note revised PROTIME reference range qhurbuyms96/14/15. :05 PT INR 3.0 (Normal) PTP 30.6 s (Abnormal) Range: 11.7-14.9 Comments: Please note revised PROTIME reference range wyvqquvcz54/14/15. :07 PT INR 5.6 (Abnormal) PTP 50.1 s (Abnormal) Range: 11.7-14.9 Comments: Please note revised PROTIME reference range /14/15. :03 PT INR 2.5 (Normal) PTP 27.0 s (Abnormal) Range: 11.7-14.9 Comments: Please note revised PROTIME reference range qrrsyirdw76/14/15. :03 PT INR 2.0 (Normal) PTP 23.0 s (Abnormal) Range: 11.7-14.9 Comments: Please note revised PROTIME reference range ynkgatqpp35/14/15. :06 PT INR 2.1 (Normal) PTP 21.9 [...] CHOL 287 mg/dL (Abnormal) Comments: <200 mg/dL Qhsamljpf025-335 mg/dL Borderline>240 mg/dL High Risk TRIG 78 [...] CRITICAL VALUE REPEATED AND VERIFIED. CALLED TO SMCFQTH79/14/14 Jorge Jeovanny Serrano.RESULTS READ BACK BY OLIVIER [...] CHOL 227 mg/dL (Abnormal) Comments: <200 mg/dL Gqurbmggr376-151 mg/dL Borderline>240 mg/dL High Risk HDL 81 [...] CHOL 229 mg/dL (Abnormal) Comments: <200 mg/dL Syhrvhqdu585-698 mg/dL Borderline>240 mg/dL High Risk :16 PT [...] Rodriguez M.D.September 21, 2012 at 11:00:07 AM [phone] Signed RU/RU If you are the referring physician and would like to consult with theradiologist who provided this interpretation, please contact Man Styles at [phone]. If this radiologist is unavailable, ender directed to another radiologist to as sist. If you are a patient with a question regarding this report, pleasecontactyour referring physician directly. Professional Interpretation Provided By: Ranker, Phone ,Fax These documents contain legally protected [...] on 09/21/12 1106 Sign by: Laith Rodriguez 0-Qis-133395:40 CUUR URC See Note (Normal) Comments: This is an amended result. A prior result that was reported as final has been changed.09/07/12 1448 by NSTANSLOSPreviously reported as: FINAL COLONY COUNT <1000 ORGANISM 1: MIXED GRAM POSITIVE ORGANISMS 7-Auc-[id number]:40 LYMEWB bWCNTHZH09B Absent (Normal) tLYMWBINTM Negative (Normal) Comments: Note: [...] are those recommended byCDC/ASTPHLD. p23=Osp C , y94=xcctuqycm.Note:Sera from individuals with the following may cross reactin the Lyme Western Blot assays: other spirochetal diseases(periodontal disease, leptospirosis, relapsing fever, yaws,and pin ta); connective autoimmune (Rheumatoid Arthritis andSystemic Lupus Erythematosus and also individuals withAntinuclear Antibody); other infections (Angel MountainSpotted Fever; Desirae-Camargo Virus, and Cy tomegalovirus)..Performed at: [facility] [address] [id number] Director: Juan Ontiveros MD, Phone: [phone] bTNXJNLX91V Absent (Normal) gVGQMDWP47E Absent (Normal) eQNNUQNB83F Absent (Normal) iLPGCTXK29S Absent (Normal) tLYMWBINTG Negative (Normal) Comments: Positive: 5 of the followingBorrelia- specific bands:18,23,28,30,39,41,45,58,66, and 93.Negative: No bands or bandingpatterns which do notmeet positive criteria. lUUMLDFM05G Absent (Normal) oSHGOQNL31E Absent (Normal) uVNEURRL22E Absent (Normal) gLDARALN65J Present (Abnormal) vYOOKWGP97M Absent (Normal) lSVUEYTM57D Absent (Normal) dCEKCMQL07A Absent (Normal) wHZOXXCE15C Absent (Normal) :03 PT INR 2.9 (Normal) PTP 28.1 s (Abnormal) Range: 11.9-14.4 05-Rzm-389616:12 Microscopic Examination Comments: PATIENT NOT FASTINGPERFORMED BY: [facility] [facility] [id number] Bacteria Few (Normal) Mucus Threads Present (Normal) Epithelial Cells (non renal) 0-10 {/hpf} (Normal) Range: 0 - 10 RBC None seen {/hpf} (Normal) Range: 0 - 3 WBC None seen {/hpf} (Normal) Range: 0 - 5 46-Wbi-252490:12 Lyme Disease Antibody W/ Comments: PATIENT NOT FASTINGPERFORMED BY: [facility] [address] [facility] [id number] Reflex ([id number]) Lyme Ab Interp.,EIA Negative (Normal) Lyme IgG/IgM Ab <0.91 {index} (Normal) Range: 0.00-0.90 Comments: Negative <0.91 Equivocal 0.91 - 1.09 Positive >1.09 Note: The [facility] curren tly advises that Western blot testing be performed following all equivocal or positive EIA results. Final diagnosis should include appropriate clinical findi ngs and a positive EIA which is also positive by Western blot. 63-Hyu-585461:12 SED RATE ERYTHROCYTE ([id number]) Comments: PATIENT NOT FASTINGPERFORMED BY: [facility] CenterEjlczc6230 [facility] [id number] Sedimentation Rate-Westergren 2 mm/h (Normal) Range: 0-40 59-Zmv-879898:12 C-REACTIVE PROTEIN ([id number]) Comments: PATIENT NOT FASTINGPERFORMED BY: [facility] [address] [facility] [id number] C-Reactive Protein, Quant 0.7 mg/L (Normal) Range: 0.0-4.9 78-Ndh-794833:12 URINALYSIS, W/ MICRO ([id number]) Comments: PATIENT NOT FASTINGPERFORMED BY: [facility] Voogsg8289 [facility] [id number] Microscopic Examination See below: (Normal) Nitrite, Urine Negative (Normal) Urobilinogen,Semi-Qn 0.2 mg/dL (Normal) Range: 0.0-1.9 Bilirubin Negative (Normal) Occult Blood Negative (Normal) Ketones 3+ (Abnormal) Glucose Negative (Normal) Protein 1+ (Abnormal) WBC Esterase Negative (Normal) Appearance Clear (Normal) Urine-Color Yellow (Normal) pH 6.0 (Normal) Range: 5.0-7.5 Specific [place] 1.025 (Normal) Range: 1.005-1.030 56-Vyy-300470:12 TSH ([id number]) Comments: PATIENT NOT FASTINGPERFORMED BY: [facility]6[address] [facility] [id number] TSH 2.400 {uIU/mL} (Normal) Range: 0.450-4.500 86-Qof-416502:12 METABOLIC PANEL, COMPREHENSIVE Comments: PATIENT NOT FASTINGPERFORMED BY: [facility]6[address] [facility] [id number] ([id number]) ALT (SGPT) 19 [iU]/L (Normal) Range: 0-32 [...] Glucose, Serum 91 mg/dL (Normal) Range: 65-99 36-Eul-125329:12 CBC WITH MANUAL DIFF Comments: PATIENT NOT FASTINGPERFORMED BY: [facility]CoSaint [facility] CenterLellbh2497 [place] [facility] [id number] Information: [id number] ([id number]) Immature Grans (Abs) 0.0 {x10E3/uL} (Normal) Range: [...] TSH 2.44 {uIU/mL} (Normal) Range: 0.358-3.74 :12 [facility] 0 SEEN {/hpf} (Normal) UBAC 0 [...] D deficiency has been defined by the [place] ofMedicine and an Endocrine Society practice guideline as alevel of serum 25-OH vitamin D less than 20 ng/mL (1,2).The Endocrine Society went on to further define vitamin Dinsufficiency as a level between 21 and 29 ng/mL (2).1. IOM ([place] of Medicine). 2010. Dietary reference intakes for calcium and D. [place]: The National Academies Press.2. Ana FRANK, Heriberto GORDON, Jayla BECKFORD, et al. Evaluation, treatment, and prevention of vitamin D deficiency: an Endocrine Society clinical practice guideline. JCEM. 2010; 96(7): 1911-30.Performed at: [address] [id number] Director: Narendra Covarrubias PhD, Phone: [phone] Plan of Care Name Dates Details Instructions [...] Planned Observations CBC, Platelets & Auto Diff ([id number])Indication: Leukopenia On: : Request CBC, Platelets & Auto Diff ([id number])Indication: Leukopenia On: : Request CBC, Platelets & Auto Diff ([id number])Indication: Leukopenia On: 13-Mar-2042 Request CBC, Platelets & Auto Diff ([id number])Indication: Leukopenia On: : Request CBC, Platelets & Auto Diff ([id number])Indication: Leukopenia On: : Request CBC, Platelets & Auto Diff ([id number])Indication: Leukopenia On: Request CBC, Platelets & Auto Diff ([id number])Indication: Leukopenia On: 18-Mar-2041 Request CBC, Platelets & Auto Diff ([id number])Indication: Leukopenia On: : Request CBC, Platelets & Auto Diff ([id number])Indication: Leukopenia On: : Request CBC, Platelets & Auto Diff ([id number])Indication: Leukopenia On: : Request CBC, Platelets & Auto Diff ([id number])Indication: Leukopenia On: 23-Mar-2040 Request CBC, Platelets & Auto Diff ([id number])Indication: Leukopenia On: : Request CBC, Platelets & Auto Diff ([id number])Indication: Leukopenia On: : Request CBC, Platelets & Auto Diff ([id number])Indication: Leukopenia On: : Request CBC, Platelets & Auto Diff ([id number])Indication: Leukopenia On: 29-Mar-2039 Request CBC, Platelets & Auto Diff ([id number])Indication: Leukopenia On: :00 Request CBC, Platelets & Auto Diff ([id number])Indication: Leukopenia On: :00 Request CBC, Platelets & Auto Diff ([id number])Indication: Leukopenia On: : Request CBC, Platelets & Auto Diff ([id number])Indication: Leukopenia On: 03-Apr-2038 Request CBC, Platelets & Auto Diff ([id number])Indication: Leukopenia On: :00 Request CBC, Platelets & Auto Diff ([id number])Indication: Leukopenia On: :00 Request CBC, Platelets & Auto Diff ([id number])Indication: Leukopenia On: :00 Request CBC, Platelets & Auto Diff ([id number])Indication: Leukopenia On: 08-Apr-2037 Request CBC, Platelets & Auto Diff ([id number])Indication: Leukopenia On: :00 Request CBC, Platelets & Auto Diff ([id number])Indication: Leukopenia On: :00 Request CBC, Platelets & Auto Diff ([id number])Indication: Leukopenia On: :00 Request CBC, Platelets & Auto Diff ([id number])Indication: Leukopenia On: 13-Apr-2036 Request CBC, Platelets & Auto Diff ([id number])Indication: Leukopenia On: :00 Request CBC, Platelets & Auto Diff ([id number])Indication: Leukopenia On: :00 Request CBC, Platelets & Auto Diff ([id number])Indication: Leukopenia On: : Request CBC, Platelets & Auto Diff ([id number])Indication: Leukopenia On: 19-Apr-2035 Request CBC, Platelets & Auto Diff ([id number])Indication: Leukopenia On: : Request CBC, Platelets & Auto Diff ([id number])Indication: Leukopenia On: : Request CBC, Platelets & Auto Diff ([id number])Indication: Leukopenia On: : Request CBC, Platelets & Auto Diff ([id number])Indication: Leukopenia On: 24-Apr-2034 Request CBC, Platelets & Auto Diff ([id number])Indication: Leukopenia On: : Request CBC, Platelets & Auto Diff ([id number])Indication: Leukopenia On: : Request CBC, Platelets & Auto Diff ([id number])Indication: Leukopenia On: :00 Request CBC, Platelets & Auto Diff ([id number])Indication: Leukopenia On: 29-Apr-2033 Request CBC, Platelets & Auto Diff ([id number])Indication: Leukopenia On: :00 Request CBC, Platelets & Auto Diff ([id number])Indication: Leukopenia On: :00 Request CBC, Platelets & Auto Diff ([id number])Indication: Leukopenia On: :00 Request CBC, Platelets & Auto Diff ([id number])Indication: Leukopenia On: 04-May-2032 Request CBC, Platelets & Auto Diff ([id number])Indication: Leukopenia On: :00 Request CBC, Platelets & Auto Diff ([id number])Indication: Leukopenia On: :00 Request CBC, Platelets & Auto Diff ([id number])Indication: Leukopenia On: : Request CBC, Platelets & Auto Diff ([id number])Indication: Leukopenia On: 10-May-2031 Request CBC, Platelets & Auto Diff ([id number])Indication: Leukopenia On: 09-Feb-2031 Request CBC, Platelets & Auto Diff ([id number])Indication: Leukopenia On: :00 Request CBC, Platelets & Auto Diff ([id number])Indication: Leukopenia On: :00 Request CBC, Platelets & Auto Diff ([id number])Indication: Leukopenia On: 15-May-2030 Request CBC, Platelets & Auto Diff ([id number])Indication: Leukopenia On: 14-Feb-2030 Request CBC, Platelets & Auto Diff ([id number])Indication: Leukopenia On: :00 Request CBC, Platelets & Auto Diff ([id number])Indication: Leukopenia On: : Request CBC, Platelets & Auto Diff ([id number])Indication: Leukopenia On: 20-May-2029 Request CBC, Platelets & Auto Diff ([id number])Indication: Leukopenia On: 19-Feb-2029 Request CBC, Platelets & Auto Diff ([id number])Indication: Leukopenia On: :00 Request CBC, Platelets & Auto Diff ([id number])Indication: Leukopenia On: :00 Request CBC, Platelets & Auto Diff ([id number])Indication: Leukopenia On: 25-May-2028 Request CBC, Platelets & Auto Diff ([id number])Indication: Leukopenia On: 25-Feb-2028 Request CBC, Platelets & Auto Diff ([id number])Indication: Leukopenia On: :00 Request CBC, Platelets & Auto Diff ([id number])Indication: Leukopenia On: :00 Request CBC, Platelets & Auto Diff ([id number])Indication: Leukopenia On: 31-May-2027 Request CBC, Platelets & Auto Diff ([id number])Indication: Leukopenia On: 02-Mar-2027 Request CBC, Platelets & Auto Diff ([id number])Indication: Leukopenia On: :00 Request CBC, Platelets & Auto Diff ([id number])Indication: Leukopenia On: :00 Request CBC, Platelets & Auto Diff ([id number])Indication: Leukopenia On: 05-Jun-2026 Request CBC, Platelets & Auto Diff ([id number])Indication: Leukopenia On: 07-Mar-2026 Request CBC, Platelets & Auto Diff ([id number])Indication: Leukopenia On: :00 Request CBC, Platelets & Auto Diff ([id number])Indication: Leukopenia On: :00 Request CBC, Platelets & Auto Diff ([id number])Indication: Leukopenia On: 10-Jun-2025 Request CBC, Platelets & Auto Diff ([id number])Indication: Leukopenia On: 12-Mar-2025 Request CBC, Platelets & Auto Diff ([id number])Indication: Leukopenia On: :00 Request CBC, Platelets & Auto Diff ([id number])Indication: Leukopenia On: : Request CBC, Platelets & Auto Diff ([id number])Indication: Leukopenia On: : Request CBC, Platelets & Auto Diff ([id number])Indication: Leukopenia On: 17-Mar-2024 Request CBC, Platelets & Auto Diff ([id number])Indication: Leukopenia On: : Request CBC, Platelets & Auto Diff ([id number])Indication: Leukopenia On: :00 Request CBC, Platelets & Auto Diff ([id number])Indication: Leukopenia On: :00 Request CBC, Platelets & Auto Diff ([id number])Indication: Leukopenia On: 23-Mar-2023 Request CBC, Platelets & Auto Diff ([id number])Indication: Leukopenia On: :00 Request CBC, Platelets & Auto Diff ([id number])Indication: Leukopenia On: :00 Request CBC, Platelets & Auto Diff ([id number])Indication: Leukopenia On: :00 Request CBC, Platelets & Auto Diff ([id number])Indication: Leukopenia On: 28-Mar-2022 Request CBC, Platelets & Auto Diff ([id number])Indication: Leukopenia On: :00 Request CBC, Platelets & Auto Diff ([id number])Indication: Leukopenia On: :00 Request CBC, Platelets & Auto Diff ([id number])Indication: Leukopenia On: :00 Request CBC, Platelets & Auto Diff ([id number])Indication: Leukopenia On: 02-Apr-2021 Request CBC, Platelets & Auto Diff ([id number])Indication: Leukopenia On: :00 Request CBC, Platelets & Auto Diff ([id number])Indication: Leukopenia On: :00 Request CBC, Platelets & Auto Diff ([id number])Indication: Leukopenia On: :00 Request CBC, Platelets & Auto Diff ([id number])Indication: Leukopenia On: 07-Apr-2020 Request CBC, Platelets & Auto Diff ([id number])Indication: Leukopenia On: 08-Jan-2020 Request CBC, Platelets & Auto Diff ([id number])Indication: Leukopenia On: 10-Oct-2019 Request CBC, Platelets & Auto Diff ([id number])Indication: Leukopenia On: 12-Jul-2019 Request CBC, Platelets & Auto Diff ([id number])Indication: Leukopenia On: 13-Apr-2019 Request PT (PROTHROMBIN TIME) ([id number]) : standing orderIndication: History of DVT (deep vein thrombosis) On: 02-Mar-2019 Request Comments: standing order PT (PROTHROMBIN TIME) ([id number]) : standing orderIndication: History of DVT (deep vein thrombosis) On: 01-Mar-2019 Request Comments: standing order PT (PROTHROMBIN TIME) ([id number]) : standing orderIndication: History of DVT (deep vein thrombosis) On: 28-Feb-2019 Request Comments: standing order PT (PROTHROMBIN TIME) ([id number]) : standing orderIndication: History of DVT (deep vein thrombosis) On: 27-Feb-2019 Request Comments: standing order PT (PROTHROMBIN TIME) ([id number]) : standing orderIndication: History of DVT (deep vein thrombosis) On: 26-Feb-2019 Request Comments: standing order PT (PROTHROMBIN TIME) ([id number])Indication: History of DVT (deep vein thrombosis) On: 25-Feb-2019 Request PT (PROTHROMBIN TIME) ([id number]) : standing orderIndication: History of DVT (deep vein thrombosis) On: 25-Feb-2019 Request Comments: standing order PT (PROTHROMBIN TIME) ([id number]) : standing orderIndication: History of DVT (deep vein thrombosis) On: 25-Feb-2019 Request Comments: standing order PT (PROTHROMBIN TIME) ([id number]) : standing orderIndication: History of DVT (deep vein thrombosis) On: 24-Feb-2019 Request Comments: standing order PT (PROTHROMBIN TIME) ([id number]) : standing orderIndication: History of DVT (deep vein thrombosis) On: 23-Feb-2019 Request Comments: standing order PT (PROTHROMBIN TIME) ([id number]) : standing orderIndication: History of DVT (deep vein thrombosis) On: 22-Feb-2019 Request Comments: standing order PT (PROTHROMBIN TIME) ([id number]) : standing orderIndication: History of DVT (deep vein thrombosis) On: 21-Feb-2019 Request Comments: standing order PT (PROTHROMBIN TIME) ([id number]) : standing orderIndication: History of DVT (deep vein thrombosis) On: 20-Feb-2019 Request Comments: standing order PT (PROTHROMBIN TIME) ([id number]) : standing orderIndication: History of DVT (deep vein thrombosis) On: 19-Feb-2019 Request Comments: standing order PT (PROTHROMBIN TIME) ([id number]) : standing orderIndication: History of DVT (deep vein thrombosis) On: 18-Feb-2019 Request Comments: standing order PT (PROTHROMBIN TIME) ([id number]) : standing orderIndication: History of DVT (deep vein thrombosis) On: 17-Feb-2019 Request Comments: standing order PT (PROTHROMBIN TIME) ([id number]) : standing orderIndication: History of DVT (deep vein thrombosis) On: 16-Feb-2019 Request Comments: standing order PT (PROTHROMBIN TIME) ([id number]) : standing orderIndication: History of DVT (deep vein thrombosis) On: 15-Feb-2019 Request Comments: standing order PT (PROTHROMBIN TIME) ([id number]) : standing orderIndication: History of DVT (deep vein thrombosis) On: 14-Feb-2019 Request Comments: standing order PT (PROTHROMBIN TIME) ([id number]) : standing orderIndication: History of DVT (deep vein thrombosis) On: 13-Feb-2019 Request Comments: standing order PT (PROTHROMBIN TIME) ([id number]) : standing orderIndication: History of DVT (deep vein thrombosis) On: 12-Feb-2019 Request Comments: standing order PT (PROTHROMBIN TIME) ([id number]) : standing orderIndication: History of DVT (deep vein thrombosis) On: 11-Feb-2019 Request Comments: standing order PT (PROTHROMBIN TIME) ([id number]) : standing orderIndication: History of DVT (deep vein thrombosis) On: 10-Feb-2019 Request Comments: standing order PT (PROTHROMBIN TIME) ([id number]) : standing orderIndication: History of DVT (deep vein thrombosis) On: 09-Feb-2019 Request Comments: standing order PT (PROTHROMBIN TIME) ([id number]) : standing orderIndication: History of DVT (deep vein thrombosis) On: 08-Feb-2019 Request Comments: standing order PT (PROTHROMBIN TIME) ([id number]) : standing orderIndication: History of DVT (deep vein thrombosis) On: 07-Feb-2019 Request Comments: standing order PT (PROTHROMBIN TIME) ([id number]) : standing orderIndication: History of DVT (deep vein thrombosis) On: 06-Feb-2019 Request Comments: standing order PT (PROTHROMBIN TIME) ([id number]) : standing orderIndication: History of DVT (deep vein thrombosis) On: 05-Feb-2019 Request Comments: standing order PT (PROTHROMBIN TIME) ([id number]) : standing orderIndication: History of DVT (deep vein thrombosis) On: 04-Feb-2019 Request Comments: standing order PT (PROTHROMBIN TIME) ([id number]) : standing orderIndication: History of DVT (deep vein thrombosis) On: 03-Feb-2019 Request Comments: standing order PT (PROTHROMBIN TIME) ([id number]) : standing orderIndication: History of DVT (deep vein thrombosis) On: 02-Feb-2019 Request Comments: standing order PT (PROTHROMBIN TIME) ([id number]) : standing orderIndication: History of DVT (deep vein thrombosis) On: 01-Feb-2019 Request Comments: standing order PT (PROTHROMBIN TIME) ([id number]) : standing orderIndication: History of DVT (deep vein thrombosis) On: 31-Jan-2019 Request Comments: standing order PT (PROTHROMBIN TIME) ([id number]) : standing orderIndication: History of DVT (deep vein thrombosis) On: 30-Jan-2019 Request Comments: standing order PT (PROTHROMBIN TIME) ([id number]) : standing orderIndication: History of DVT (deep vein thrombosis) On: 29-Jan-2019 Request Comments: standing order PT (Prothrobim Time) ([id number])Indication: History of DVT (deep vein thrombosis) On: 28-Jan-2019 Request Comments: INR PT (PROTHROMBIN TIME) ([id number]) : standing orderIndication: History of DVT (deep vein thrombosis) On: 28-Jan-2019 Request Comments: standing order PT (PROTHROMBIN TIME) ([id number]) : standing orderIndication: History of DVT (deep vein thrombosis) On: 27-Jan-2019 Request Comments: standing order PT (PROTHROMBIN TIME) ([id number])Indication: History of DVT (deep vein thrombosis) On: 26-Jan-2019 Request PT (PROTHROMBIN TIME) ([id number]) : standing orderIndication: History of DVT (deep vein thrombosis) On: 26-Jan-2019 Request Comments: standing order PT (PROTHROMBIN TIME) ([id number]) : standing orderIndication: History of DVT (deep vein thrombosis) On: 26-Jan-2019 Request Comments: standing order PT (PROTHROMBIN TIME) ([id number]) : standing orderIndication: History of DVT (deep vein thrombosis) On: 25-Jan-2019 Request Comments: standing order PT (PROTHROMBIN TIME) ([id number]) : standing orderIndication: History of DVT (deep vein thrombosis) On: 24-Jan-2019 Request Comments: standing order PT (PROTHROMBIN TIME) ([id number]) : standing orderIndication: History of DVT (deep vein thrombosis) On: 23-Jan-2019 Request Comments: standing order PT (PROTHROMBIN TIME) ([id number]) : standing orderIndication: History of DVT (deep vein thrombosis) On: 22-Jan-2019 Request Comments: standing order PT (PROTHROMBIN TIME) ([id number]) : standing orderIndication: History of DVT (deep vein thrombosis) On: 21-Jan-2019 Request Comments: standing order PT (PROTHROMBIN TIME) ([id number]) : standing orderIndication: History of DVT (deep vein thrombosis) On: 20-Jan-2019 Request Comments: standing order PT (PROTHROMBIN TIME) ([id number]) : standing orderIndication: History of DVT (deep vein thrombosis) On: 19-Jan-2019 Request Comments: standing order PT (PROTHROMBIN TIME) ([id number]) : standing orderIndication: History of DVT (deep vein thrombosis) On: 18-Jan-2019 Request Comments: standing order PT (PROTHROMBIN TIME) ([id number]) : standing orderIndication: History of DVT (deep vein thrombosis) On: 17-Jan-2019 Request Comments: standing order PT (PROTHROMBIN TIME) ([id number]) : standing orderIndication: History of DVT (deep vein thrombosis) On: 16-Jan-2019 Request Comments: standing order PT (PROTHROMBIN TIME) ([id number]) : standing orderIndication: History of DVT (deep vein thrombosis) On: 15-Jan-2019 Request Comments: standing order PT (PROTHROMBIN TIME) ([id number]) : standing orderIndication: History of DVT (deep vein thrombosis) On: 14-Jan-2019 Request Comments: standing order CBC, Platelets & Auto Diff ([id number])Indication: Leukopenia On: 13-Jan-2019 Request PT (PROTHROMBIN TIME) ([id number]) : standing orderIndication: History of DVT (deep vein thrombosis) On: 13-Jan-2019 Request Comments: standing order PT (PROTHROMBIN TIME) ([id number]) : standing orderIndication: History of DVT (deep vein thrombosis) On: 12-Jan-2019 Request Comments: standing order PT (PROTHROMBIN TIME) ([id number]) : standing orderIndication: History of DVT (deep vein thrombosis) On: 11-Jan-2019 Request Comments: standing order PT (PROTHROMBIN TIME) ([id number]) : standing orderIndication: History of DVT (deep vein thrombosis) On: 10-Jan-2019 Request Comments: standing order PT (PROTHROMBIN TIME) ([id number]) : standing orderIndication: History of DVT (deep vein thrombosis) On: 09-Jan-2019 Request Comments: standing order PT (PROTHROMBIN TIME) ([id number]) : standing orderIndication: History of DVT (deep vein thrombosis) On: 08-Jan-2019 Request Comments: standing order PT (PROTHROMBIN TIME) ([id number]) : standing orderIndication: History of DVT (deep vein thrombosis) On: 07-Jan-2019 Request Comments: standing order PT (PROTHROMBIN TIME) ([id number]) : standing orderIndication: History of DVT (deep vein thrombosis) On: 06-Jan-2019 Request Comments: standing order PT (PROTHROMBIN TIME) ([id number]) : standing orderIndication: History of DVT (deep vein thrombosis) On: 05-Jan-2019 Request Comments: standing order PT (PROTHROMBIN TIME) ([id number]) : standing orderIndication: History of DVT (deep vein thrombosis) On: 04-Jan-2019 Request Comments: standing order PT (PROTHROMBIN TIME) ([id number]) : standing orderIndication: History of DVT (deep vein thrombosis) On: 03-Jan-2019 Request Comments: standing order PT (PROTHROMBIN TIME) ([id number]) : standing orderIndication: History of DVT (deep vein thrombosis) On: 02-Jan-2019 Request Comments: standing order PT (PROTHROMBIN TIME) ([id number]) : standing orderIndication: History of DVT (deep vein thrombosis) On: 01-Jan-2019 Request Comments: standing order PT (PROTHROMBIN TIME) ([id number]) : standing orderIndication: History of DVT (deep vein thrombosis) On: 31-Dec-2018 Request Comments: standing order PT (PROTHROMBIN TIME) ([id number]) : standing orderIndication: History of DVT (deep vein thrombosis) On: 30-Dec-2018 Request Comments: standing order PT (Prothrobim Time) ([id number])Indication: History of DVT (deep vein thrombosis) On: 29-Dec-2018 Request Comments: INR PT (PROTHROMBIN TIME) ([id number]) : standing orderIndication: History of DVT (deep vein thrombosis) On: 29-Dec-2018 Request Comments: standing order PT (PROTHROMBIN TIME) ([id number]) : standing orderIndication: History of DVT (deep vein thrombosis) On: 28-Dec-2018 Request Comments: standing order PT (PROTHROMBIN TIME) ([id number])Indication: History of DVT (deep vein thrombosis) On: 27-Dec-2018 Request PT (PROTHROMBIN TIME) ([id number]) : standing orderIndication: History of DVT (deep vein thrombosis) On: 27-Dec-2018 Request Comments: standing order PT (PROTHROMBIN TIME) ([id number]) : standing orderIndication: History of DVT (deep vein thrombosis) On: 27-Dec-2018 Request Comments: standing order PT (PROTHROMBIN TIME) ([id number]) : standing orderIndication: History of DVT (deep vein thrombosis) On: 26-Dec-2018 Request Comments: standing order PT (PROTHROMBIN TIME) ([id number]) : standing orderIndication: History of DVT (deep vein thrombosis) On: 25-Dec-2018 Request Comments: standing order PT (PROTHROMBIN TIME) ([id number]) : standing orderIndication: History of DVT (deep vein thrombosis) On: 24-Dec-2018 Request Comments: standing order PT (PROTHROMBIN TIME) ([id number]) : standing orderIndication: History of DVT (deep vein thrombosis) On: 23-Dec-2018 Request Comments: standing order PT (PROTHROMBIN TIME) ([id number]) : standing orderIndication: History of DVT (deep vein thrombosis) On: 22-Dec-2018 Request Comments: standing order PT (PROTHROMBIN TIME) ([id number]) : standing orderIndication: History of DVT (deep vein thrombosis) On: 21-Dec-2018 Request Comments: standing order PT (PROTHROMBIN TIME) ([id number]) : standing orderIndication: History of DVT (deep vein thrombosis) On: 20-Dec-2018 Request Comments: standing order PT (PROTHROMBIN TIME) ([id number]) : standing orderIndication: History of DVT (deep vein thrombosis) On: 19-Dec-2018 Request Comments: standing order PT (PROTHROMBIN TIME) ([id number]) : standing orderIndication: History of DVT (deep vein thrombosis) On: 18-Dec-2018 Request Comments: standing order PT (PROTHROMBIN TIME) ([id number]) : standing orderIndication: History of DVT (deep vein thrombosis) On: 17-Dec-2018 Request Comments: standing order PT (PROTHROMBIN TIME) ([id number]) : standing orderIndication: History of DVT (deep vein thrombosis) On: 16-Dec-2018 Request Comments: standing order PT (PROTHROMBIN TIME) ([id number]) : standing orderIndication: History of DVT (deep vein thrombosis) On: 15-Dec-2018 Request Comments: standing order PT (PROTHROMBIN TIME) ([id number]) : standing orderIndication: History of DVT (deep vein thrombosis) On: 14-Dec-2018 Request Comments: standing order PT (PROTHROMBIN TIME) ([id number]) : standing orderIndication: History of DVT (deep vein thrombosis) On: 13-Dec-2018 Request Comments: standing order PT (PROTHROMBIN TIME) ([id number]) : standing orderIndication: History of DVT (deep vein thrombosis) On: 12-Dec-2018 Request Comments: standing order PT (PROTHROMBIN TIME) ([id number]) : standing orderIndication: History of DVT (deep vein thrombosis) On: 11-Dec-2018 Request Comments: standing order PT (PROTHROMBIN TIME) ([id number]) : standing orderIndication: History of DVT (deep vein thrombosis) On: 10-Dec-2018 Request Comments: standing order PT (PROTHROMBIN TIME) ([id number]) : standing orderIndication: History of DVT (deep vein thrombosis) On: 09-Dec-2018 Request Comments: standing order PT (PROTHROMBIN TIME) ([id number]) : standing orderIndication: History of DVT (deep vein thrombosis) On: 08-Dec-2018 Request Comments: standing order PT (PROTHROMBIN TIME) ([id number]) : standing orderIndication: History of DVT (deep vein thrombosis) On: 07-Dec-2018 Request Comments: standing order PT (PROTHROMBIN TIME) ([id number]) : standing orderIndication: History of DVT (deep vein thrombosis) On: 06-Dec-2018 Request Comments: standing order PT (PROTHROMBIN TIME) ([id number]) : standing orderIndication: History of DVT (deep vein thrombosis) On: 05-Dec-2018 Request Comments: standing order PT (PROTHROMBIN TIME) ([id number]) : standing orderIndication: History of DVT (deep vein thrombosis) On: 04-Dec-2018 Request Comments: standing order PT (PROTHROMBIN TIME) ([id number]) : standing orderIndication: History of DVT (deep vein thrombosis) On: 03-Dec-2018 Request Comments: standing order PT (PROTHROMBIN TIME) ([id number]) : standing orderIndication: History of DVT (deep vein thrombosis) On: 02-Dec-2018 Request Comments: standing order PT (PROTHROMBIN TIME) ([id number]) : standing orderIndication: History of DVT (deep vein thrombosis) On: 01-Dec-2018 Request Comments: standing order PT (PROTHROMBIN TIME) ([id number]) : standing orderIndication: History of DVT (deep vein thrombosis) On: 30-Nov-2018 Request Comments: standing order PT (Prothrobim Time) ([id number])Indication: History of DVT (deep vein thrombosis) On: 29-Nov-2018 Request Comments: INR PT (PROTHROMBIN TIME) ([id number]) : standing orderIndication: History of DVT (deep vein thrombosis) On: 29-Nov-2018 Request Comments: standing order PT (PROTHROMBIN TIME) ([id number]) : standing orderIndication: History of DVT (deep vein thrombosis) On: 28-Nov-2018 Request Comments: standing order PT (PROTHROMBIN TIME) ([id number])Indication: History of DVT (deep vein thrombosis) On: 27-Nov-2018 Request PT (PROTHROMBIN TIME) ([id number]) : standing orderIndication: History of DVT (deep vein thrombosis) On: 27-Nov-2018 Request Comments: standing order PT (PROTHROMBIN TIME) ([id number]) : standing orderIndication: History of DVT (deep vein thrombosis) On: 27-Nov-2018 Request Comments: standing order PT (PROTHROMBIN TIME) ([id number]) : standing orderIndication: History of DVT (deep vein thrombosis) On: 26-Nov-2018 Request Comments: standing order PT (PROTHROMBIN TIME) ([id number]) : standing orderIndication: History of DVT (deep vein thrombosis) On: 25-Nov-2018 Request Comments: standing order PT (PROTHROMBIN TIME) ([id number]) : standing orderIndication: History of DVT (deep vein thrombosis) On: 24-Nov-2018 Request Comments: standing order PT (PROTHROMBIN TIME) ([id number]) : standing orderIndication: History of DVT (deep vein thrombosis) On: 23-Nov-2018 Request Comments: standing order PT (PROTHROMBIN TIME) ([id number]) : standing orderIndication: History of DVT (deep vein thrombosis) On: 22-Nov-2018 Request Comments: standing order PT (PROTHROMBIN TIME) ([id number]) : standing orderIndication: History of DVT (deep vein thrombosis) On: 21-Nov-2018 Request Comments: standing order PT (PROTHROMBIN TIME) ([id number]) : standing orderIndication: History of DVT (deep vein thrombosis) On: 20-Nov-2018 Request Comments: standing order PT (PROTHROMBIN TIME) ([id number]) : standing orderIndication: History of DVT (deep vein thrombosis) On: 19-Nov-2018 Request Comments: standing order PT (PROTHROMBIN TIME) ([id number]) : standing orderIndication: History of DVT (deep vein thrombosis) On: 18-Nov-2018 Request Comments: standing order PT (PROTHROMBIN TIME) ([id number]) : standing orderIndication: History of DVT (deep vein thrombosis) On: 17-Nov-2018 Request Comments: standing order PT (PROTHROMBIN TIME) ([id number]) : standing orderIndication: History of DVT (deep vein thrombosis) On: 16-Nov-2018 Request Comments: standing order PT (PROTHROMBIN TIME) ([id number]) : standing orderIndication: History of DVT (deep vein thrombosis) On: 15-Nov-2018 Request Comments: standing order PT (PROTHROMBIN TIME) ([id number]) : standing orderIndication: History of DVT (deep vein thrombosis) On: 14-Nov-2018 Request Comments: standing order PT (PROTHROMBIN TIME) ([id number]) : standing orderIndication: History of DVT (deep vein thrombosis) On: 13-Nov-2018 Request Comments: standing order PT (PROTHROMBIN TIME) ([id number]) : standing orderIndication: History of DVT (deep vein thrombosis) On: 12-Nov-2018 Request Comments: standing order PT (PROTHROMBIN TIME) ([id number]) : standing orderIndication: History of DVT (deep vein thrombosis) On: 11-Nov-2018 Request Comments: standing order PT (PROTHROMBIN TIME) ([id number]) : standing orderIndication: History of DVT (deep vein thrombosis) On: 10-Nov-2018 Request Comments: standing order PT (PROTHROMBIN TIME) ([id number]) : standing orderIndication: History of DVT (deep vein thrombosis) On: 09-Nov-2018 Request Comments: standing order PT (PROTHROMBIN TIME) ([id number]) : standing orderIndication: History of DVT (deep vein thrombosis) On: 08-Nov-2018 Request Comments: standing order PT (PROTHROMBIN TIME) ([id number]) : standing orderIndication: History of DVT (deep vein thrombosis) On: 07-Nov-2018 Request Comments: standing order PT (PROTHROMBIN TIME) ([id number]) : standing orderIndication: History of DVT (deep vein thrombosis) On: 06-Nov-2018 Request Comments: standing order PT (PROTHROMBIN TIME) ([id number]) : standing orderIndication: History of DVT (deep vein thrombosis) On: 05-Nov-2018 Request Comments: standing order PT (PROTHROMBIN TIME) ([id number]) : standing orderIndication: History of DVT (deep vein thrombosis) On: 04-Nov-2018 Request Comments: standing order PT (PROTHROMBIN TIME) ([id number]) : standing orderIndication: History of DVT (deep vein thrombosis) On: 03-Nov-2018 Request Comments: standing order PT (PROTHROMBIN TIME) ([id number]) : standing orderIndication: History of DVT (deep vein thrombosis) On: 02-Nov-2018 Request Comments: standing order PT (PROTHROMBIN TIME) ([id number]) : standing orderIndication: History of DVT (deep vein thrombosis) On: 01-Nov-2018 Request Comments: standing order PT (PROTHROMBIN TIME) ([id number]) : standing orderIndication: History of DVT (deep vein thrombosis) On: 31-Oct-2018 Request Comments: standing order PT (Prothrobim Time) ([id number])Indication: History of DVT (deep vein thrombosis) On: 30-Oct-2018 Request Comments: INR PT (PROTHROMBIN TIME) ([id number]) : standing orderIndication: History of DVT (deep vein thrombosis) On: 30-Oct-2018 Request Comments: standing order PT (PROTHROMBIN TIME) ([id number]) : standing orderIndication: History of DVT (deep vein thrombosis) On: 29-Oct-2018 Request Comments: standing order PT (PROTHROMBIN TIME) ([id number])Indication: History of DVT (deep vein thrombosis) On: 28-Oct-2018 Request PT (PROTHROMBIN TIME) ([id number]) : standing orderIndication: History of DVT (deep vein thrombosis) On: 28-Oct-2018 Request Comments: standing order PT (PROTHROMBIN TIME) ([id number]) : standing orderIndication: History of DVT (deep vein thrombosis) On: 28-Oct-2018 Request Comments: standing order PT (PROTHROMBIN TIME) ([id number]) : standing orderIndication: History of DVT (deep vein thrombosis) On: 27-Oct-2018 Request Comments: standing order PT (PROTHROMBIN TIME) ([id number]) : standing orderIndication: History of DVT (deep vein thrombosis) On: 26-Oct-2018 Request Comments: standing order PT (PROTHROMBIN TIME) ([id number]) : standing orderIndication: History of DVT (deep vein thrombosis) On: 25-Oct-2018 Request Comments: standing order PT (PROTHROMBIN TIME) ([id number]) : standing orderIndication: History of DVT (deep vein thrombosis) On: 24-Oct-2018 Request Comments: standing order PT (PROTHROMBIN TIME) ([id number]) : standing orderIndication: History of DVT (deep vein thrombosis) On: 23-Oct-2018 Request Comments: standing order PT (PROTHROMBIN TIME) ([id number]) : standing orderIndication: History of DVT (deep vein thrombosis) On: 22-Oct-2018 Request Comments: standing order PT (PROTHROMBIN TIME) ([id number]) : standing orderIndication: History of DVT (deep vein thrombosis) On: 21-Oct-2018 Request Comments: standing order PT (PROTHROMBIN TIME) ([id number]) : standing orderIndication: History of DVT (deep vein thrombosis) On: 20-Oct-2018 Request Comments: standing order PT (PROTHROMBIN TIME) ([id number]) : standing orderIndication: History of DVT (deep vein thrombosis) On: 19-Oct-2018 Request Comments: standing order PT (PROTHROMBIN TIME) ([id number]) : standing orderIndication: History of DVT (deep vein thrombosis) On: 18-Oct-2018 Request Comments: standing order PT (PROTHROMBIN TIME) ([id number]) : standing orderIndication: History of DVT (deep vein thrombosis) On: 17-Oct-2018 Request Comments: standing order PT (PROTHROMBIN TIME) ([id number]) : standing orderIndication: History of DVT (deep vein thrombosis) On: 16-Oct-2018 Request Comments: standing order CBC, Platelets & Auto Diff ([id number])Indication: Leukopenia On: 15-Oct-2018 Request PT (PROTHROMBIN TIME) ([id number]) : standing orderIndication: History of DVT (deep vein thrombosis) On: 15-Oct-2018 Request Comments: standing order PT (PROTHROMBIN TIME) ([id number]) : standing orderIndication: History of DVT (deep vein thrombosis) On: 14-Oct-2018 Request Comments: standing order PT (PROTHROMBIN TIME) ([id number]) : standing orderIndication: History of DVT (deep vein thrombosis) On: 13-Oct-2018 Request Comments: standing order PT (PROTHROMBIN TIME) ([id number]) : standing orderIndication: History of DVT (deep vein thrombosis) On: 12-Oct-2018 Request Comments: standing order PT (PROTHROMBIN TIME) ([id number]) : standing orderIndication: History of DVT (deep vein thrombosis) On: 11-Oct-2018 Request Comments: standing order PT (PROTHROMBIN TIME) ([id number]) : standing orderIndication: History of DVT (deep vein thrombosis) On: 10-Oct-2018 Request Comments: standing order PT (PROTHROMBIN TIME) ([id number]) : standing orderIndication: History of DVT (deep vein thrombosis) On: 09-Oct-2018 Request Comments: standing order PT (PROTHROMBIN TIME) ([id number]) : standing orderIndication: History of DVT (deep vein thrombosis) On: 08-Oct-2018 Request Comments: standing order PT (PROTHROMBIN TIME) ([id number]) : standing orderIndication: History of DVT (deep vein thrombosis) On: 07-Oct-2018 Request Comments: standing order PT (PROTHROMBIN TIME) ([id number]) : standing orderIndication: History of DVT (deep vein thrombosis) On: 06-Oct-2018 Request Comments: standing order PT (PROTHROMBIN TIME) ([id number]) : standing orderIndication: History of DVT (deep vein thrombosis) On: 05-Oct-2018 Request Comments: standing order PT (PROTHROMBIN TIME) ([id number]) : standing orderIndication: History of DVT (deep vein thrombosis) On: 04-Oct-2018 Request Comments: standing order PT (PROTHROMBIN TIME) ([id number]) : standing orderIndication: History of DVT (deep vein thrombosis) On: 03-Oct-2018 Request Comments: standing order PT (PROTHROMBIN TIME) ([id number]) : standing orderIndication: History of DVT (deep vein thrombosis) On: 02-Oct-2018 Request Comments: standing order PT (PROTHROMBIN TIME) ([id number]) : standing orderIndication: History of DVT (deep vein thrombosis) On: 01-Oct-2018 Request Comments: standing order PT (Prothrobim Time) ([id number])Indication: History of DVT (deep vein thrombosis) On: 30-Sep-2018 Request Comments: INR PT (PROTHROMBIN TIME) ([id number]) : standing orderIndication: History of DVT (deep vein thrombosis) On: 30-Sep-2018 Request Comments: standing order PT (PROTHROMBIN TIME) ([id number]) : standing orderIndication: History of DVT (deep vein thrombosis) On: 29-Sep-2018 Request Comments: standing order PT (PROTHROMBIN TIME) ([id number])Indication: History of DVT (deep vein thrombosis) On: 28-Sep-2018 Request PT (PROTHROMBIN TIME) ([id number]) : standing orderIndication: History of DVT (deep vein thrombosis) On: 28-Sep-2018 Request Comments: standing order PT (PROTHROMBIN TIME) ([id number]) : standing orderIndication: History of DVT (deep vein thrombosis) On: 28-Sep-2018 Request Comments: standing order PT (PROTHROMBIN TIME) ([id number]) : standing orderIndication: History of DVT (deep vein thrombosis) On: 27-Sep-2018 Request Comments: standing order PT (PROTHROMBIN TIME) ([id number]) : standing orderIndication: History of DVT (deep vein thrombosis) On: 26-Sep-2018 Request Comments: standing order PT (PROTHROMBIN TIME) ([id number]) : standing orderIndication: History of DVT (deep vein thrombosis) On: 25-Sep-2018 Request Comments: standing order PT (PROTHROMBIN TIME) ([id number]) : standing orderIndication: History of DVT (deep vein thrombosis) On: 24-Sep-2018 Request Comments: standing order PT (PROTHROMBIN TIME) ([id number]) : standing orderIndication: History of DVT (deep vein thrombosis) On: 23-Sep-2018 Request Comments: standing order PT (PROTHROMBIN TIME) ([id number]) : standing orderIndication: History of DVT (deep vein thrombosis) On: 22-Sep-2018 Request Comments: standing order PT (PROTHROMBIN TIME) ([id number]) : standing orderIndication: History of DVT (deep vein thrombosis) On: 21-Sep-2018 Request Comments: standing order PT (PROTHROMBIN TIME) ([id number]) : standing orderIndication: History of DVT (deep vein thrombosis) On: 20-Sep-2018 Request Comments: standing order PT (PROTHROMBIN TIME) ([id number]) : standing orderIndication: History of DVT (deep vein thrombosis) On: 19-Sep-2018 Request Comments: standing order PT (PROTHROMBIN TIME) ([id number]) : standing orderIndication: History of DVT (deep vein thrombosis) On: 18-Sep-2018 Request Comments: standing order PT (PROTHROMBIN TIME) ([id number]) : standing orderIndication: History of DVT (deep vein thrombosis) On: 17-Sep-2018 Request Comments: standing order PT (PROTHROMBIN TIME) ([id number]) : standing orderIndication: History of DVT (deep vein thrombosis) On: 17-Sep-2018 Request Comments: standing order PT (PROTHROMBIN TIME) ([id number]) : standing orderIndication: History of DVT (deep vein thrombosis) On: 16-Sep-2018 Request Comments: standing order PT (PROTHROMBIN TIME) ([id number]) : standing orderIndication: History of DVT (deep vein thrombosis) On: 16-Sep-2018 Request Comments: standing order PT (PROTHROMBIN TIME) ([id number]) : standing orderIndication: History of DVT (deep vein thrombosis) On: 15-Sep-2018 Request Comments: standing order PT (PROTHROMBIN TIME) ([id number]) : standing orderIndication: History of DVT (deep vein thrombosis) On: 15-Sep-2018 Request Comments: standing order PT (PROTHROMBIN TIME) ([id number]) : standing orderIndication: History of DVT (deep vein thrombosis) On: 14-Sep-2018 Request Comments: standing order PT (PROTHROMBIN TIME) ([id number]) : standing orderIndication: History of DVT (deep vein thrombosis) On: 14-Sep-2018 Request Comments: standing order PT (PROTHROMBIN TIME) ([id number]) : standing orderIndication: History of DVT (deep vein thrombosis) On: 13-Sep-2018 Request Comments: standing order PT (PROTHROMBIN TIME) ([id number]) : standing orderIndication: History of DVT (deep vein thrombosis) On: 13-Sep-2018 Request Comments: standing order PT (PROTHROMBIN TIME) ([id number]) : standing orderIndication: History of DVT (deep vein thrombosis) On: 12-Sep-2018 Request Comments: standing order PT (PROTHROMBIN TIME) ([id number]) : standing orderIndication: History of DVT (deep vein thrombosis) On: 12-Sep-2018 Request Comments: standing order PT (PROTHROMBIN TIME) ([id number]) : standing orderIndication: History of DVT (deep vein thrombosis) On: 11-Sep-2018 Request Comments: standing order PT (PROTHROMBIN TIME) ([id number]) : standing orderIndication: History of DVT (deep vein thrombosis) On: 11-Sep-2018 Request Comments: standing order PT (PROTHROMBIN TIME) ([id number]) : standing orderIndication: History of DVT (deep vein thrombosis) On: 10-Sep-2018 Request Comments: standing order PT (PROTHROMBIN TIME) ([id number]) : standing orderIndication: History of DVT (deep vein thrombosis) On: 10-Sep-2018 Request Comments: standing order PT (PROTHROMBIN TIME) ([id number]) : standing orderIndication: History of DVT (deep vein thrombosis) On: 09-Sep-2018 Request Comments: standing order PT (PROTHROMBIN TIME) ([id number]) : standing orderIndication: History of DVT (deep vein thrombosis) On: 09-Sep-2018 Request Comments: standing order PT (PROTHROMBIN TIME) ([id number]) : standing orderIndication: History of DVT (deep vein thrombosis) On: 08-Sep-2018 Request Comments: standing order PT (PROTHROMBIN TIME) ([id number]) : standing orderIndication: History of DVT (deep vein thrombosis) On: 08-Sep-2018 Request Comments: standing order PT (PROTHROMBIN TIME) ([id number]) : standing orderIndication: History of DVT (deep vein thrombosis) On: 07-Sep-2018 Request Comments: standing order PT (PROTHROMBIN TIME) ([id number]) : standing orderIndication: History of DVT (deep vein thrombosis) On: 07-Sep-2018 Request Comments: standing order PT (PROTHROMBIN TIME) ([id number]) : standing orderIndication: History of DVT (deep vein thrombosis) On: 06-Sep-2018 Request Comments: standing order PT (PROTHROMBIN TIME) ([id number]) : standing orderIndication: History of DVT (deep vein thrombosis) On: 06-Sep-2018 Request Comments: standing order PT (PROTHROMBIN TIME) ([id number]) : standing orderIndication: History of DVT (deep vein thrombosis) On: 05-Sep-2018 Request Comments: standing order PT (PROTHROMBIN TIME) ([id number]) : standing orderIndication: History of DVT (deep vein thrombosis) On: 05-Sep-2018 Request Comments: standing order PT (PROTHROMBIN TIME) ([id number]) : standing orderIndication: History of DVT (deep vein thrombosis) On: 04-Sep-2018 Request Comments: standing order PT (PROTHROMBIN TIME) ([id number]) : standing orderIndication: History of DVT (deep vein thrombosis) On: 04-Sep-2018 Request Comments: standing order PT (PROTHROMBIN TIME) ([id number]) : standing orderIndication: History of DVT (deep vein thrombosis) On: 03-Sep-2018 Request Comments: standing order PT (PROTHROMBIN TIME) ([id number]) : standing orderIndication: History of DVT (deep vein thrombosis) On: 03-Sep-2018 Request Comments: standing order PT (PROTHROMBIN TIME) ([id number]) : standing orderIndication: History of DVT (deep vein thrombosis) On: 02-Sep-2018 Request Comments: standing order PT (PROTHROMBIN TIME) ([id number]) : standing orderIndication: History of DVT (deep vein thrombosis) On: 02-Sep-2018 Request Comments: standing order PT (PROTHROMBIN TIME) ([id number]) : standing orderIndication: History of DVT (deep vein thrombosis) On: 01-Sep-2018 Request Comments: standing order PT (PROTHROMBIN TIME) ([id number]) : standing orderIndication: History of DVT (deep vein thrombosis) On: 01-Sep-2018 Request Comments: standing order PT (Prothrobim Time) ([id number])Indication: History of DVT (deep vein thrombosis) On: 31-Aug-2018 Request Comments: INR PT (PROTHROMBIN TIME) ([id number]) : standing orderIndication: History of DVT (deep vein thrombosis) On: 31-Aug-2018 Request Comments: standing order PT (PROTHROMBIN TIME) ([id number]) : standing orderIndication: History of DVT (deep vein thrombosis) On: 31-Aug-2018 Request Comments: standing order PT (PROTHROMBIN TIME) ([id number]) : standing orderIndication: History of DVT (deep vein thrombosis) On: 30-Aug-2018 Request Comments: standing order PT (PROTHROMBIN TIME) ([id number]) : standing orderIndication: History of DVT (deep vein thrombosis) On: 30-Aug-2018 Request Comments: standing order PT (PROTHROMBIN TIME) ([id number])Indication: History of DVT (deep vein thrombosis) On: 29-Aug-2018 Request PT (PROTHROMBIN TIME) ([id number]) : standing orderIndication: History of DVT (deep vein thrombosis) On: 29-Aug-2018 Request Comments: standing order PT (PROTHROMBIN TIME) ([id number]) : standing orderIndication: History of DVT (deep vein thrombosis) On: 29-Aug-2018 Request Comments: standing order PT (PROTHROMBIN TIME) ([id number]) : standing orderIndication: History of DVT (deep vein thrombosis) On: 29-Aug-2018 Request Comments: standing order PT (PROTHROMBIN TIME) ([id number]) : standing orderIndication: History of DVT (deep vein thrombosis) On: 28-Aug-2018 Request Comments: standing order PT (PROTHROMBIN TIME) ([id number]) : standing orderIndication: History of DVT (deep vein thrombosis) On: 28-Aug-2018 Request Comments: standing order PT (PROTHROMBIN TIME) ([id number]) : standing orderIndication: History of DVT (deep vein thrombosis) On: 27-Aug-2018 Request Comments: standing order PT (PROTHROMBIN TIME) ([id number]) : standing orderIndication: History of DVT (deep vein thrombosis) On: 27-Aug-2018 Request Comments: standing order PT (PROTHROMBIN TIME) ([id number]) : standing orderIndication: History of DVT (deep vein thrombosis) On: 26-Aug-2018 Request Comments: standing order PT (PROTHROMBIN TIME) ([id number]) : standing orderIndication: History of DVT (deep vein thrombosis) On: 26-Aug-2018 Request Comments: standing order PT (PROTHROMBIN TIME) ([id number]) : standing orderIndication: History of DVT (deep vein thrombosis) On: 25-Aug-2018 Request Comments: standing order PT (PROTHROMBIN TIME) ([id number]) : standing orderIndication: History of DVT (deep vein thrombosis) On: 25-Aug-2018 Request Comments: standing order PT (PROTHROMBIN TIME) ([id number]) : standing orderIndication: History of DVT (deep vein thrombosis) On: 24-Aug-2018 Request Comments: standing order PT (PROTHROMBIN TIME) ([id number]) : standing orderIndication: History of DVT (deep vein thrombosis) On: 24-Aug-2018 Request Comments: standing order PT (PROTHROMBIN TIME) ([id number]) : standing orderIndication: History of DVT (deep vein thrombosis) On: 23-Aug-2018 Request Comments: standing order PT (PROTHROMBIN TIME) ([id number]) : standing orderIndication: History of DVT (deep vein thrombosis) On: 23-Aug-2018 Request Comments: standing order PT (PROTHROMBIN TIME) ([id number]) : standing orderIndication: History of DVT (deep vein thrombosis) On: 22-Aug-2018 Request Comments: standing order PT (PROTHROMBIN TIME) ([id number]) : standing orderIndication: History of DVT (deep vein thrombosis) On: 22-Aug-2018 Request Comments: standing order PT (PROTHROMBIN TIME) ([id number]) : standing orderIndication: History of DVT (deep vein thrombosis) On: 21-Aug-2018 Request Comments: standing order PT (PROTHROMBIN TIME) ([id number]) : standing orderIndication: History of DVT (deep vein thrombosis) On: 21-Aug-2018 Request Comments: standing order PT (PROTHROMBIN TIME) ([id number]) : standing orderIndication: History of DVT (deep vein thrombosis) On: 20-Aug-2018 Request Comments: standing order PT (PROTHROMBIN TIME) ([id number]) : standing orderIndication: History of DVT (deep vein thrombosis) On: 20-Aug-2018 Request Comments: standing order PT (PROTHROMBIN TIME) ([id number]) : standing orderIndication: History of DVT (deep vein thrombosis) On: 19-Aug-2018 Request Comments: standing order PT (PROTHROMBIN TIME) ([id number]) : standing orderIndication: History of DVT (deep vein thrombosis) On: 19-Aug-2018 Request Comments: standing order PT (PROTHROMBIN TIME) ([id number]) : standing orderIndication: History of DVT (deep vein thrombosis) On: 18-Aug-2018 Request Comments: standing order PT (PROTHROMBIN TIME) ([id number]) : standing orderIndication: History of DVT (deep vein thrombosis) On: 18-Aug-2018 Request Comments: standing order PT (PROTHROMBIN TIME) ([id number]) : standing orderIndication: History of DVT (deep vein thrombosis) On: 17-Aug-2018 Request Comments: standing order PT (PROTHROMBIN TIME) ([id number]) : standing orderIndication: History of DVT (deep vein thrombosis) On: 17-Aug-2018 Request Comments: standing order PT (PROTHROMBIN TIME) ([id number]) : standing orderIndication: History of DVT (deep vein thrombosis) On: 16-Aug-2018 Request Comments: standing order PT (PROTHROMBIN TIME) ([id number]) : standing orderIndication: History of DVT (deep vein thrombosis) On: 16-Aug-2018 Request Comments: standing order PT (PROTHROMBIN TIME) ([id number]) : standing orderIndication: History of DVT (deep vein thrombosis) On: 15-Aug-2018 Request Comments: standing order PT (PROTHROMBIN TIME) ([id number]) : standing orderIndication: History of DVT (deep vein thrombosis) On: 15-Aug-2018 Request Comments: standing order PT (PROTHROMBIN TIME) ([id number]) : standing orderIndication: History of DVT (deep vein thrombosis) On: 14-Aug-2018 Request Comments: standing order PT (PROTHROMBIN TIME) ([id number]) : standing orderIndication: History of DVT (deep vein thrombosis) On: 14-Aug-2018 Request Comments: standing order PT (PROTHROMBIN TIME) ([id number]) : standing orderIndication: History of DVT (deep vein thrombosis) On: 13-Aug-2018 Request Comments: standing order PT (PROTHROMBIN TIME) ([id number]) : standing orderIndication: History of DVT (deep vein thrombosis) On: 13-Aug-2018 Request Comments: standing order PT (PROTHROMBIN TIME) ([id number]) : standing orderIndication: History of DVT (deep vein thrombosis) On: 12-Aug-2018 Request Comments: standing order PT (PROTHROMBIN TIME) ([id number]) : standing orderIndication: History of DVT (deep vein thrombosis) On: 12-Aug-2018 Request Comments: standing order PT (PROTHROMBIN TIME) ([id number]) : standing orderIndication: History of DVT (deep vein thrombosis) On: 11-Aug-2018 Request Comments: standing order PT (PROTHROMBIN TIME) ([id number]) : standing orderIndication: History of DVT (deep vein thrombosis) On: 11-Aug-2018 Request Comments: standing order PT (PROTHROMBIN TIME) ([id number]) : standing orderIndication: History of DVT (deep vein thrombosis) On: 10-Aug-2018 Request Comments: standing order PT (PROTHROMBIN TIME) ([id number]) : standing orderIndication: History of DVT (deep vein thrombosis) On: 10-Aug-2018 Request Comments: standing order PT (PROTHROMBIN TIME) ([id number]) : standing orderIndication: History of DVT (deep vein thrombosis) On: 09-Aug-2018 Request Comments: standing order PT (PROTHROMBIN TIME) ([id number]) : standing orderIndication: History of DVT (deep vein thrombosis) On: 09-Aug-2018 Request Comments: standing order PT (PROTHROMBIN TIME) ([id number]) : standing orderIndication: History of DVT (deep vein thrombosis) On: 08-Aug-2018 Request Comments: standing order PT (PROTHROMBIN TIME) ([id number]) : standing orderIndication: History of DVT (deep vein thrombosis) On: 08-Aug-2018 Request Comments: standing order PT (PROTHROMBIN TIME) ([id number]) : standing orderIndication: History of DVT (deep vein thrombosis) On: 07-Aug-2018 Request Comments: standing order PT (PROTHROMBIN TIME) ([id number]) : standing orderIndication: History of DVT (deep vein thrombosis) On: 07-Aug-2018 Request Comments: standing order PT (PROTHROMBIN TIME) ([id number]) : standing orderIndication: History of DVT (deep vein thrombosis) On: 06-Aug-2018 Request Comments: standing order PT (PROTHROMBIN TIME) ([id number]) : standing orderIndication: History of DVT (deep vein thrombosis) On: 06-Aug-2018 Request Comments: standing order PT (PROTHROMBIN TIME) ([id number]) : standing orderIndication: History of DVT (deep vein thrombosis) On: 05-Aug-2018 Request Comments: standing order PT (PROTHROMBIN TIME) ([id number]) : standing orderIndication: History of DVT (deep vein thrombosis) On: 05-Aug-2018 Request Comments: standing order PT (PROTHROMBIN TIME) ([id number]) : standing orderIndication: History of DVT (deep vein thrombosis) On: 04-Aug-2018 Request Comments: standing order PT (PROTHROMBIN TIME) ([id number]) : standing orderIndication: History of DVT (deep vein thrombosis) On: 04-Aug-2018 Request Comments: standing order PT (PROTHROMBIN TIME) ([id number]) : standing orderIndication: History of DVT (deep vein thrombosis) On: 03-Aug-2018 Request Comments: standing order PT (PROTHROMBIN TIME) ([id number]) : standing orderIndication: History of DVT (deep vein thrombosis) On: 03-Aug-2018 Request Comments: standing order PT (PROTHROMBIN TIME) ([id number]) : standing orderIndication: History of DVT (deep vein thrombosis) On: 02-Aug-2018 Request Comments: standing order PT (PROTHROMBIN TIME) ([id number]) : standing orderIndication: History of DVT (deep vein thrombosis) On: 02-Aug-2018 Request Comments: standing order PT (Prothrobim Time) ([id number])Indication: History of DVT (deep vein thrombosis) On: 01-Aug-2018 Request Comments: INR PT (PROTHROMBIN TIME) ([id number]) : standing orderIndication: History of DVT (deep vein thrombosis) On: 01-Aug-2018 Request Comments: standing order PT (PROTHROMBIN TIME) ([id number]) : standing orderIndication: History of DVT (deep vein thrombosis) On: 01-Aug-2018 Request Comments: standing order PT (PROTHROMBIN TIME) ([id number]) : standing orderIndication: History of DVT (deep vein thrombosis) On: 31-Jul-2018 Request Comments: standing order PT (PROTHROMBIN TIME) ([id number]) : standing orderIndication: History of DVT (deep vein thrombosis) On: 31-Jul-2018 Request Comments: standing order PT (PROTHROMBIN TIME) ([id number])Indication: History of DVT (deep vein thrombosis) On: 30-Jul-2018 Request PT (PROTHROMBIN TIME) ([id number]) : standing orderIndication: History of DVT (deep vein thrombosis) On: 30-Jul-2018 Request Comments: standing order PT (PROTHROMBIN TIME) ([id number]) : standing orderIndication: History of DVT (deep vein thrombosis) On: 30-Jul-2018 Request Comments: standing order PT (PROTHROMBIN TIME) ([id number]) : standing orderIndication: History of DVT (deep vein thrombosis) On: 30-Jul-2018 Request Comments: standing order PT (PROTHROMBIN TIME) ([id number]) : standing orderIndication: History of DVT (deep vein thrombosis) On: 29-Jul-2018 Request Comments: standing order PT (PROTHROMBIN TIME) ([id number]) : standing orderIndication: History of DVT (deep vein thrombosis) On: 29-Jul-2018 Request Comments: standing order PT (PROTHROMBIN TIME) ([id number]) : standing orderIndication: History of DVT (deep vein thrombosis) On: 28-Jul-2018 Request Comments: standing order PT (PROTHROMBIN TIME) ([id number]) : standing orderIndication: History of DVT (deep vein thrombosis) On: 28-Jul-2018 Request Comments: standing order PT (PROTHROMBIN TIME) ([id number]) : standing orderIndication: History of DVT (deep vein thrombosis) On: 27-Jul-2018 Request Comments: standing order PT (PROTHROMBIN TIME) ([id number]) : standing orderIndication: History of DVT (deep vein thrombosis) On: 27-Jul-2018 Request Comments: standing order PT (PROTHROMBIN TIME) ([id number]) : standing orderIndication: History of DVT (deep vein thrombosis) On: 26-Jul-2018 Request Comments: standing order PT (PROTHROMBIN TIME) ([id number]) : standing orderIndication: History of DVT (deep vein thrombosis) On: 26-Jul-2018 Request Comments: standing order PT (PROTHROMBIN TIME) ([id number]) : standing orderIndication: History of DVT (deep vein thrombosis) On: 25-Jul-2018 Request Comments: standing order PT (PROTHROMBIN TIME) ([id number]) : standing orderIndication: History of DVT (deep vein thrombosis) On: 25-Jul-2018 Request Comments: standing order PT (PROTHROMBIN TIME) ([id number]) : standing orderIndication: History of DVT (deep vein thrombosis) On: 24-Jul-2018 Request Comments: standing order PT (PROTHROMBIN TIME) ([id number]) : standing orderIndication: History of DVT (deep vein thrombosis) On: 24-Jul-2018 Request Comments: standing order PT (PROTHROMBIN TIME) ([id number]) : standing orderIndication: History of DVT (deep vein thrombosis) On: 23-Jul-2018 Request Comments: standing order PT (PROTHROMBIN TIME) ([id number]) : standing orderIndication: History of DVT (deep vein thrombosis) On: 23-Jul-2018 Request Comments: standing order PT (PROTHROMBIN TIME) ([id number]) : standing orderIndication: History of DVT (deep vein thrombosis) On: 22-Jul-2018 Request Comments: standing order PT (PROTHROMBIN TIME) ([id number]) : standing orderIndication: History of DVT (deep vein thrombosis) On: 22-Jul-2018 Request Comments: standing order PT (PROTHROMBIN TIME) ([id number]) : standing orderIndication: History of DVT (deep vein thrombosis) On: 21-Jul-2018 Request Comments: standing order PT (PROTHROMBIN TIME) ([id number]) : standing orderIndication: History of DVT (deep vein thrombosis) On: 21-Jul-2018 Request Comments: standing order PT (PROTHROMBIN TIME) ([id number]) : standing orderIndication: History of DVT (deep vein thrombosis) On: 20-Jul-2018 Request Comments: standing order PT (PROTHROMBIN TIME) ([id number]) : standing orderIndication: History of DVT (deep vein thrombosis) On: 20-Jul-2018 Request Comments: standing order PT (PROTHROMBIN TIME) ([id number]) : standing orderIndication: History of DVT (deep vein thrombosis) On: 19-Jul-2018 Request Comments: standing order PT (PROTHROMBIN TIME) ([id number]) : standing orderIndication: History of DVT (deep vein thrombosis) On: 19-Jul-2018 Request Comments: standing order PT (PROTHROMBIN TIME) ([id number]) : standing orderIndication: History of DVT (deep vein thrombosis) On: 18-Jul-2018 Request Comments: standing order PT (PROTHROMBIN TIME) ([id number]) : standing orderIndication: History of DVT (deep vein thrombosis) On: 18-Jul-2018 Request Comments: standing order CBC, Platelets & Auto Diff ([id number])Indication: Leukopenia On: 17-Jul-2018 Request PT (PROTHROMBIN TIME) ([id number]) : standing orderIndication: History of DVT (deep vein thrombosis) On: 17-Jul-2018 Request Comments: standing order PT (PROTHROMBIN TIME) ([id number]) : standing orderIndication: History of DVT (deep vein thrombosis) On: 17-Jul-2018 Request Comments: standing order PT (PROTHROMBIN TIME) ([id number]) : standing orderIndication: History of DVT (deep vein thrombosis) On: 16-Jul-2018 Request Comments: standing order PT (PROTHROMBIN TIME) ([id number]) : standing orderIndication: History of DVT (deep vein thrombosis) On: 16-Jul-2018 Request Comments: standing order PT (PROTHROMBIN TIME) ([id number]) : standing orderIndication: History of DVT (deep vein thrombosis) On: 15-Jul-2018 Request Comments: standing order PT (PROTHROMBIN TIME) ([id number]) : standing orderIndication: History of DVT (deep vein thrombosis) On: 15-Jul-2018 Request Comments: standing order PT (PROTHROMBIN TIME) ([id number]) : standing orderIndication: History of DVT (deep vein thrombosis) On: 14-Jul-2018 Request Comments: standing order PT (PROTHROMBIN TIME) ([id number]) : standing orderIndication: History of DVT (deep vein thrombosis) On: 14-Jul-2018 Request Comments: standing order PT (PROTHROMBIN TIME) ([id number]) : standing orderIndication: History of DVT (deep vein thrombosis) On: 13-Jul-2018 Request Comments: standing order PT (PROTHROMBIN TIME) ([id number]) : standing orderIndication: History of DVT (deep vein thrombosis) On: 13-Jul-2018 Request Comments: standing order PT (PROTHROMBIN TIME) ([id number]) : standing orderIndication: History of DVT (deep vein thrombosis) On: 12-Jul-2018 Request Comments: standing order PT (PROTHROMBIN TIME) ([id number]) : standing orderIndication: History of DVT (deep vein thrombosis) On: 12-Jul-2018 Request Comments: standing order PT (PROTHROMBIN TIME) ([id number]) : standing orderIndication: History of DVT (deep vein thrombosis) On: 11-Jul-2018 Request Comments: standing order PT (PROTHROMBIN TIME) ([id number]) : standing orderIndication: History of DVT (deep vein thrombosis) On: 11-Jul-2018 Request Comments: standing order PT (PROTHROMBIN TIME) ([id number]) : standing orderIndication: History of DVT (deep vein thrombosis) On: 10-Jul-2018 Request Comments: standing order PT (PROTHROMBIN TIME) ([id number]) : standing orderIndication: History of DVT (deep vein thrombosis) On: 10-Jul-2018 Request Comments: standing order PT (PROTHROMBIN TIME) ([id number]) : standing orderIndication: History of DVT (deep vein thrombosis) On: 09-Jul-2018 Request Comments: standing order PT (PROTHROMBIN TIME) ([id number]) : standing orderIndication: History of DVT (deep vein thrombosis) On: 09-Jul-2018 Request Comments: standing order PT (PROTHROMBIN TIME) ([id number]) : standing orderIndication: History of DVT (deep vein thrombosis) On: 08-Jul-2018 Request Comments: standing order PT (PROTHROMBIN TIME) ([id number]) : standing orderIndication: History of DVT (deep vein thrombosis) On: 08-Jul-2018 Request Comments: standing order PT (PROTHROMBIN TIME) ([id number]) : standing orderIndication: History of DVT (deep vein thrombosis) On: 07-Jul-2018 Request Comments: standing order PT (PROTHROMBIN TIME) ([id number]) : standing orderIndication: History of DVT (deep vein thrombosis) On: 07-Jul-2018 Request Comments: standing order PT (PROTHROMBIN TIME) ([id number]) : standing orderIndication: History of DVT (deep vein thrombosis) On: 06-Jul-2018 Request Comments: standing order PT (PROTHROMBIN TIME) ([id number]) : standing orderIndication: History of DVT (deep vein thrombosis) On: 06-Jul-2018 Request Comments: standing order PT (PROTHROMBIN TIME) ([id number]) : standing orderIndication: History of DVT (deep vein thrombosis) On: 05-Jul-2018 Request Comments: standing order PT (PROTHROMBIN TIME) ([id number]) : standing orderIndication: History of DVT (deep vein thrombosis) On: 05-Jul-2018 Request Comments: standing order PT (PROTHROMBIN TIME) ([id number]) : standing orderIndication: History of DVT (deep vein thrombosis) On: 04-Jul-2018 Request Comments: standing order PT (PROTHROMBIN TIME) ([id number]) : standing orderIndication: History of DVT (deep vein thrombosis) On: 04-Jul-2018 Request Comments: standing order PT (PROTHROMBIN TIME) ([id number]) : standing orderIndication: History of DVT (deep vein thrombosis) On: 03-Jul-2018 Request Comments: standing order PT (PROTHROMBIN TIME) ([id number]) : standing orderIndication: History of DVT (deep vein thrombosis) On: 03-Jul-2018 Request Comments: standing order PT (Prothrobim Time) ([id number])Indication: History of DVT (deep vein thrombosis) On: 02-Jul-2018 Request Comments: INR PT (PROTHROMBIN TIME) ([id number]) : standing orderIndication: History of DVT (deep vein thrombosis) On: 02-Jul-2018 Request Comments: standing order PT (PROTHROMBIN TIME) ([id number]) : standing orderIndication: History of DVT (deep vein thrombosis) On: 02-Jul-2018 Request Comments: standing order PT (PROTHROMBIN TIME) ([id number]) : standing orderIndication: History of DVT (deep vein thrombosis) On: 01-Jul-2018 Request Comments: standing order PT (PROTHROMBIN TIME) ([id number]) : standing orderIndication: History of DVT (deep vein thrombosis) On: 01-Jul-2018 Request Comments: standing order PT (PROTHROMBIN TIME) ([id number])Indication: History of DVT (deep vein thrombosis) On: 30-Jun-2018 Request PT (PROTHROMBIN TIME) ([id number]) : standing orderIndication: History of DVT (deep vein thrombosis) On: 30-Jun-2018 Request Comments: standing order PT (PROTHROMBIN TIME) ([id number]) : standing orderIndication: History of DVT (deep vein thrombosis) On: 30-Jun-2018 Request Comments: standing order PT (PROTHROMBIN TIME) ([id number]) : standing orderIndication: History of DVT (deep vein thrombosis) On: 30-Jun-2018 Request Comments: standing order PT (PROTHROMBIN TIME) ([id number]) : standing orderIndication: History of DVT (deep vein thrombosis) On: 29-Jun-2018 Request Comments: standing order PT (PROTHROMBIN TIME) ([id number]) : standing orderIndication: History of DVT (deep vein thrombosis) On: 29-Jun-2018 Request Comments: standing order PT (PROTHROMBIN TIME) ([id number]) : standing orderIndication: History of DVT (deep vein thrombosis) On: 28-Jun-2018 Request Comments: standing order PT (PROTHROMBIN TIME) ([id number]) : standing orderIndication: History of DVT (deep vein thrombosis) On: 28-Jun-2018 Request Comments: standing order PT (PROTHROMBIN TIME) ([id number]) : standing orderIndication: History of DVT (deep vein thrombosis) On: 27-Jun-2018 Request Comments: standing order PT (PROTHROMBIN TIME) ([id number]) : standing orderIndication: History of DVT (deep vein thrombosis) On: 27-Jun-2018 Request Comments: standing order PT (PROTHROMBIN TIME) ([id number]) : standing orderIndication: History of DVT (deep vein thrombosis) On: 26-Jun-2018 Request Comments: standing order PT (PROTHROMBIN TIME) ([id number]) : standing orderIndication: History of DVT (deep vein thrombosis) On: 26-Jun-2018 Request Comments: standing order PT (PROTHROMBIN TIME) ([id number]) : standing orderIndication: History of DVT (deep vein thrombosis) On: 25-Jun-2018 Request Comments: standing order PT (PROTHROMBIN TIME) ([id number]) : standing orderIndication: History of DVT (deep vein thrombosis) On: 25-Jun-2018 Request Comments: standing order PT (PROTHROMBIN TIME) ([id number]) : standing orderIndication: History of DVT (deep vein thrombosis) On: 24-Jun-2018 Request Comments: standing order PT (PROTHROMBIN TIME) ([id number]) : standing orderIndication: History of DVT (deep vein thrombosis) On: 24-Jun-2018 Request Comments: standing order PT (PROTHROMBIN TIME) ([id number]) : standing orderIndication: History of DVT (deep vein thrombosis) On: 23-Jun-2018 Request Comments: standing order PT (PROTHROMBIN TIME) ([id number]) : standing orderIndication: History of DVT (deep vein thrombosis) On: 23-Jun-2018 Request Comments: standing order PT (PROTHROMBIN TIME) ([id number]) : standing orderIndication: History of DVT (deep vein thrombosis) On: 22-Jun-2018 Request Comments: standing order PT (PROTHROMBIN TIME) ([id number]) : standing orderIndication: History of DVT (deep vein thrombosis) On: 22-Jun-2018 Request Comments: standing order PT (PROTHROMBIN TIME) ([id number]) : standing orderIndication: History of DVT (deep vein thrombosis) On: 21-Jun-2018 Request Comments: standing order PT (PROTHROMBIN TIME) ([id number]) : standing orderIndication: History of DVT (deep vein thrombosis) On: 21-Jun-2018 Request Comments: standing order PT (PROTHROMBIN TIME) ([id number]) : standing orderIndication: History of DVT (deep vein thrombosis) On: 20-Jun-2018 Request Comments: standing order PT (PROTHROMBIN TIME) ([id number]) : standing orderIndication: History of DVT (deep vein thrombosis) On: 20-Jun-2018 Request Comments: standing order PT (PROTHROMBIN TIME) ([id number]) : standing orderIndication: History of DVT (deep vein thrombosis) On: 19-Jun-2018 Request Comments: standing order PT (PROTHROMBIN TIME) ([id number]) : standing orderIndication: History of DVT (deep vein thrombosis) On: 19-Jun-2018 Request Comments: standing order PT (PROTHROMBIN TIME) ([id number]) : standing orderIndication: History of DVT (deep vein thrombosis) On: 18-Jun-2018 Request Comments: standing order PT (PROTHROMBIN TIME) ([id number]) : standing orderIndication: History of DVT (deep vein thrombosis) On: 18-Jun-2018 Request Comments: standing order PT (PROTHROMBIN TIME) ([id number]) : standing orderIndication: History of DVT (deep vein thrombosis) On: 17-Jun-2018 Request Comments: standing order PT (PROTHROMBIN TIME) ([id number]) : standing orderIndication: History of DVT (deep vein thrombosis) On: 17-Jun-2018 Request Comments: standing order PT (PROTHROMBIN TIME) ([id number]) : standing orderIndication: History of DVT (deep vein thrombosis) On: 16-Jun-2018 Request Comments: standing order PT (PROTHROMBIN TIME) ([id number]) : standing orderIndication: History of DVT (deep vein thrombosis) On: 16-Jun-2018 Request Comments: standing order PT (PROTHROMBIN TIME) ([id number]) : standing orderIndication: History of DVT (deep vein thrombosis) On: 15-Jun-2018 Request Comments: standing order PT (PROTHROMBIN TIME) ([id number]) : standing orderIndication: History of DVT (deep vein thrombosis) On: 15-Jun-2018 Request Comments: standing order PT (PROTHROMBIN TIME) ([id number]) : standing orderIndication: History of DVT (deep vein thrombosis) On: 14-Jun-2018 Request Comments: standing order PT (PROTHROMBIN TIME) ([id number]) : standing orderIndication: History of DVT (deep vein thrombosis) On: 14-Jun-2018 Request Comments: standing order PT (PROTHROMBIN TIME) ([id number]) : standing orderIndication: History of DVT (deep vein thrombosis) On: 13-Jun-2018 Request Comments: standing order PT (PROTHROMBIN TIME) ([id number]) : standing orderIndication: History of DVT (deep vein thrombosis) On: 13-Jun-2018 Request Comments: standing order PT (PROTHROMBIN TIME) ([id number]) : standing orderIndication: History of DVT (deep vein thrombosis) On: 12-Jun-2018 Request Comments: standing order PT (PROTHROMBIN TIME) ([id number]) : standing orderIndication: History of DVT (deep vein thrombosis) On: 12-Jun-2018 Request Comments: standing order PT (PROTHROMBIN TIME) ([id number]) : standing orderIndication: History of DVT (deep vein thrombosis) On: 11-Jun-2018 Request Comments: standing order PT (PROTHROMBIN TIME) ([id number]) : standing orderIndication: History of DVT (deep vein thrombosis) On: 11-Jun-2018 Request Comments: standing order PT (PROTHROMBIN TIME) ([id number]) : standing orderIndication: History of DVT (deep vein thrombosis) On: 10-Jun-2018 Request Comments: standing order PT (PROTHROMBIN TIME) ([id number]) : standing orderIndication: History of DVT (deep vein thrombosis) On: 10-Jun-2018 Request Comments: standing order PT (PROTHROMBIN TIME) ([id number]) : standing orderIndication: History of DVT (deep vein thrombosis) On: 09-Jun-2018 Request Comments: standing order PT (PROTHROMBIN TIME) ([id number]) : standing orderIndication: History of DVT (deep vein thrombosis) On: 09-Jun-2018 Request Comments: standing order PT (PROTHROMBIN TIME) ([id number]) : standing orderIndication: History of DVT (deep vein thrombosis) On: 08-Jun-2018 Request Comments: standing order PT (PROTHROMBIN TIME) ([id number]) : standing orderIndication: History of DVT (deep vein thrombosis) On: 08-Jun-2018 Request Comments: standing order PT (PROTHROMBIN TIME) ([id number]) : standing orderIndication: History of DVT (deep vein thrombosis) On: 07-Jun-2018 Request Comments: standing order PT (PROTHROMBIN TIME) ([id number]) : standing orderIndication: History of DVT (deep vein thrombosis) On: 07-Jun-2018 Request Comments: standing order PT (PROTHROMBIN TIME) ([id number]) : standing orderIndication: History of DVT (deep vein thrombosis) On: 06-Jun-2018 Request Comments: standing order PT (PROTHROMBIN TIME) ([id number]) : standing orderIndication: History of DVT (deep vein thrombosis) On: 06-Jun-2018 Request Comments: standing order PT (PROTHROMBIN TIME) ([id number]) : standing orderIndication: History of DVT (deep vein thrombosis) On: 05-Jun-2018 Request Comments: standing order PT (PROTHROMBIN TIME) ([id number]) : standing orderIndication: History of DVT (deep vein thrombosis) On: 05-Jun-2018 Request Comments: standing order PT (PROTHROMBIN TIME) ([id number]) : standing orderIndication: History of DVT (deep vein thrombosis) On: 04-Jun-2018 Request Comments: standing order PT (PROTHROMBIN TIME) ([id number]) : standing orderIndication: History of DVT (deep vein thrombosis) On: 04-Jun-2018 Request Comments: standing order PT (PROTHROMBIN TIME) ([id number]) : standing orderIndication: History of DVT (deep vein thrombosis) On: 03-Jun-2018 Request Comments: standing order PT (PROTHROMBIN TIME) ([id number]) : standing orderIndication: History of DVT (deep vein thrombosis) On: 03-Jun-2018 Request Comments: standing order PT (Prothrobim Time) ([id number])Indication: History of DVT (deep vein thrombosis) On: 02-Jun-2018 Request Comments: INR PT (PROTHROMBIN TIME) ([id number]) : standing orderIndication: History of DVT (deep vein thrombosis) On: 02-Jun-2018 Request Comments: standing order PT (PROTHROMBIN TIME) ([id number]) : standing orderIndication: History of DVT (deep vein thrombosis) On: 02-Jun-2018 Request Comments: standing order PT (PROTHROMBIN TIME) ([id number]) : standing orderIndication: History of DVT (deep vein thrombosis) On: 01-Jun-2018 Request Comments: standing order PT (PROTHROMBIN TIME) ([id number]) : standing orderIndication: History of DVT (deep vein thrombosis) On: 01-Jun-2018 Request Comments: standing order PT (PROTHROMBIN TIME) ([id number])Indication: History of DVT (deep vein thrombosis) On: 31-May-2018 Request PT (PROTHROMBIN TIME) ([id number]) : standing orderIndication: History of DVT (deep vein thrombosis) On: 31-May-2018 Request Comments: standing order PT (PROTHROMBIN TIME) ([id number]) : standing orderIndication: History of DVT (deep vein thrombosis) On: 31-May-2018 Request Comments: standing order PT (PROTHROMBIN TIME) ([id number]) : standing orderIndication: History of DVT (deep vein thrombosis) On: 31-May-2018 Request Comments: standing order PT (PROTHROMBIN TIME) ([id number]) : standing orderIndication: History of DVT (deep vein thrombosis) On: 30-May-2018 Request Comments: standing order PT (PROTHROMBIN TIME) ([id number]) : standing orderIndication: History of DVT (deep vein thrombosis) On: 30-May-2018 Request Comments: standing order PT (PROTHROMBIN TIME) ([id number]) : standing orderIndication: History of DVT (deep vein thrombosis) On: 29-May-2018 Request Comments: standing order PT (PROTHROMBIN TIME) ([id number]) : standing orderIndication: History of DVT (deep vein thrombosis) On: 29-May-2018 Request Comments: standing order PT (PROTHROMBIN TIME) ([id number]) : standing orderIndication: History of DVT (deep vein thrombosis) On: 28-May-2018 Request Comments: standing order PT (PROTHROMBIN TIME) ([id number]) : standing orderIndication: History of DVT (deep vein thrombosis) On: 28-May-2018 Request Comments: standing order PT (PROTHROMBIN TIME) ([id number]) : standing orderIndication: History of DVT (deep vein thrombosis) On: 27-May-2018 Request Comments: standing order PT (PROTHROMBIN TIME) ([id number]) : standing orderIndication: History of DVT (deep vein thrombosis) On: 27-May-2018 Request Comments: standing order PT (PROTHROMBIN TIME) ([id number]) : standing orderIndication: History of DVT (deep vein thrombosis) On: 26-May-2018 Request Comments: standing order PT (PROTHROMBIN TIME) ([id number]) : standing orderIndication: History of DVT (deep vein thrombosis) On: 26-May-2018 Request Comments: standing order PT (PROTHROMBIN TIME) ([id number]) : standing orderIndication: History of DVT (deep vein thrombosis) On: 25-May-2018 Request Comments: standing order PT (PROTHROMBIN TIME) ([id number]) : standing orderIndication: History of DVT (deep vein thrombosis) On: 25-May-2018 Request Comments: standing order PT (PROTHROMBIN TIME) ([id number]) : standing orderIndication: History of DVT (deep vein thrombosis) On: 24-May-2018 Request Comments: standing order PT (PROTHROMBIN TIME) ([id number]) : standing orderIndication: History of DVT (deep vein thrombosis) On: 24-May-2018 Request Comments: standing order PT (Prothrobim Time) ([id number])Indication: Anticoagulated on Coumadin On: 23-May-2018 Request PT (PROTHROMBIN TIME) ([id number]) : standing orderIndication: History of DVT (deep vein thrombosis) On: 23-May-2018 Request Comments: standing order PT (PROTHROMBIN TIME) ([id number]) : standing orderIndication: History of DVT (deep vein thrombosis) On: 23-May-2018 Request Comments: standing order PT (PROTHROMBIN TIME) ([id number]) : standing orderIndication: History of DVT (deep vein thrombosis) On: 22-May-2018 Request Comments: standing order PT (PROTHROMBIN TIME) ([id number]) : standing orderIndication: History of DVT (deep vein thrombosis) On: 22-May-2018 Request Comments: standing order PT (PROTHROMBIN TIME) ([id number]) : standing orderIndication: History of DVT (deep vein thrombosis) On: 21-May-2018 Request Comments: standing order PT (PROTHROMBIN TIME) ([id number]) : standing orderIndication: History of DVT (deep vein thrombosis) On: 21-May-2018 Request Comments: standing order PT (PROTHROMBIN TIME) ([id number]) : standing orderIndication: History of DVT (deep vein thrombosis) On: 20-May-2018 Request Comments: standing order PT (PROTHROMBIN TIME) ([id number]) : standing orderIndication: History of DVT (deep vein thrombosis) On: 20-May-2018 Request Comments: standing order PT (PROTHROMBIN TIME) ([id number]) : standing orderIndication: History of DVT (deep vein thrombosis) On: 19-May-2018 Request Comments: standing order PT (PROTHROMBIN TIME) ([id number]) : standing orderIndication: History of DVT (deep vein thrombosis) On: 19-May-2018 Request Comments: standing order PT (PROTHROMBIN TIME) ([id number]) : standing orderIndication: History of DVT (deep vein thrombosis) On: 18-May-2018 Request Comments: standing order PT (PROTHROMBIN TIME) ([id number]) : standing orderIndication: History of DVT (deep vein thrombosis) On: 18-May-2018 Request Comments: standing order PT (PROTHROMBIN TIME) ([id number]) : standing orderIndication: History of DVT (deep vein thrombosis) On: 17-May-2018 Request Comments: standing order PT (PROTHROMBIN TIME) ([id number]) : standing orderIndication: History of DVT (deep vein thrombosis) On: 17-May-2018 Request Comments: standing order PT (Prothrobim Time) ([id number])Indication: Anticoagulated on Coumadin On: 16-May-2018 Request PT (PROTHROMBIN TIME) ([id number]) : standing orderIndication: History of DVT (deep vein thrombosis) On: 16-May-2018 Request Comments: standing order PT (PROTHROMBIN TIME) ([id number]) : standing orderIndication: History of DVT (deep vein thrombosis) On: 16-May-2018 Request Comments: standing order PT (PROTHROMBIN TIME) ([id number]) : standing orderIndication: History of DVT (deep vein thrombosis) On: 15-May-2018 Request Comments: standing order PT (PROTHROMBIN TIME) ([id number]) : standing orderIndication: History of DVT (deep vein thrombosis) On: 15-May-2018 Request Comments: standing order PT (PROTHROMBIN TIME) ([id number]) : standing orderIndication: History of DVT (deep vein thrombosis) On: 14-May-2018 Request Comments: standing order PT (PROTHROMBIN TIME) ([id number]) : standing orderIndication: History of DVT (deep vein thrombosis) On: 14-May-2018 Request Comments: standing order PT (PROTHROMBIN TIME) ([id number]) : standing orderIndication: History of DVT (deep vein thrombosis) On: 13-May-2018 Request Comments: standing order PT (PROTHROMBIN TIME) ([id number]) : standing orderIndication: History of DVT (deep vein thrombosis) On: 13-May-2018 Request Comments: standing order PT (PROTHROMBIN TIME) ([id number]) : standing orderIndication: History of DVT (deep vein thrombosis) On: 12-May-2018 Request Comments: standing order PT (PROTHROMBIN TIME) ([id number]) : standing orderIndication: History of DVT (deep vein thrombosis) On: 12-May-2018 Request Comments: standing order PT (PROTHROMBIN TIME) ([id number]) : standing orderIndication: History of DVT (deep vein thrombosis) On: 11-May-2018 Request Comments: standing order PT (PROTHROMBIN TIME) ([id number]) : standing orderIndication: History of DVT (deep vein thrombosis) On: 11-May-2018 Request Comments: standing order PT (PROTHROMBIN TIME) ([id number]) : standing orderIndication: History of DVT (deep vein thrombosis) On: 10-May-2018 Request Comments: standing order PT (PROTHROMBIN TIME) ([id number]) : standing orderIndication: History of DVT (deep vein thrombosis) On: 10-May-2018 Request Comments: standing order PT (Prothrobim Time) ([id number])Indication: Anticoagulated on Coumadin On: 09-May-2018 Request PT (PROTHROMBIN TIME) ([id number]) : standing orderIndication: History of DVT (deep vein thrombosis) On: 09-May-2018 Request Comments: standing order PT (PROTHROMBIN TIME) ([id number]) : standing orderIndication: History of DVT (deep vein thrombosis) On: 09-May-2018 Request Comments: standing order PT (PROTHROMBIN TIME) ([id number]) : standing orderIndication: History of DVT (deep vein thrombosis) On: 08-May-2018 Request Comments: standing order PT (PROTHROMBIN TIME) ([id number]) : standing orderIndication: History of DVT (deep vein thrombosis) On: 08-May-2018 Request Comments: standing order PT (PROTHROMBIN TIME) ([id number]) : standing orderIndication: History of DVT (deep vein thrombosis) On: 07-May-2018 Request Comments: standing order PT (PROTHROMBIN TIME) ([id number]) : standing orderIndication: History of DVT (deep vein thrombosis) On: 07-May-2018 Request Comments: standing order PT (PROTHROMBIN TIME) ([id number]) : standing orderIndication: History of DVT (deep vein thrombosis) On: 06-May-2018 Request Comments: standing order PT (PROTHROMBIN TIME) ([id number]) : standing orderIndication: History of DVT (deep vein thrombosis) On: 06-May-2018 Request Comments: standing order PT (PROTHROMBIN TIME) ([id number]) : standing orderIndication: History of DVT (deep vein thrombosis) On: 05-May-2018 Request Comments: standing order PT (PROTHROMBIN TIME) ([id number]) : standing orderIndication: History of DVT (deep vein thrombosis) On: 05-May-2018 Request Comments: standing order PT (PROTHROMBIN TIME) ([id number]) : standing orderIndication: History of DVT (deep vein thrombosis) On: 04-May-2018 Request Comments: standing order PT (PROTHROMBIN TIME) ([id number]) : standing orderIndication: History of DVT (deep vein thrombosis) On: 04-May-2018 Request Comments: standing order PT (Prothrobim Time) ([id number])Indication: History of DVT (deep vein thrombosis) On: 03-May-2018 Request Comments: INR PT (PROTHROMBIN TIME) ([id number]) : standing orderIndication: History of DVT (deep vein thrombosis) On: 03-May-2018 Request Comments: standing order PT (PROTHROMBIN TIME) ([id number]) : standing orderIndication: History of DVT (deep vein thrombosis) On: 03-May-2018 Request Comments: standing order PT (Prothrobim Time) ([id number])Indication: Anticoagulated on Coumadin On: 02-May-2018 Request PT (PROTHROMBIN TIME) ([id number]) : standing orderIndication: History of DVT (deep vein thrombosis) On: 02-May-2018 Request Comments: standing order PT (PROTHROMBIN TIME) ([id number]) : standing orderIndication: History of DVT (deep vein thrombosis) On: 02-May-2018 Request Comments: standing order PT (PROTHROMBIN TIME) ([id number])Indication: History of DVT (deep vein thrombosis) On: 01-May-2018 Request PT (PROTHROMBIN TIME) ([id number]) : standing orderIndication: History of DVT (deep vein thrombosis) On: 01-May-2018 Request Comments: standing order PT (PROTHROMBIN TIME) ([id number]) : standing orderIndication: History of DVT (deep vein thrombosis) On: 01-May-2018 Request Comments: standing order PT (PROTHROMBIN TIME) ([id number]) : standing orderIndication: History of DVT (deep vein thrombosis) On: 01-May-2018 Request Comments: standing order PT (PROTHROMBIN TIME) ([id number]) : standing orderIndication: History of DVT (deep vein thrombosis) On: 30-Apr-2018 Request Comments: standing order PT (PROTHROMBIN TIME) ([id number]) : standing orderIndication: History of DVT (deep vein thrombosis) On: 30-Apr-2018 Request Comments: standing order PT (PROTHROMBIN TIME) ([id number]) : standing orderIndication: History of DVT (deep vein thrombosis) On: 29-Apr-2018 Request Comments: standing order PT (PROTHROMBIN TIME) ([id number]) : standing orderIndication: History of DVT (deep vein thrombosis) On: 29-Apr-2018 Request Comments: standing order PT (PROTHROMBIN TIME) ([id number]) : standing orderIndication: History of DVT (deep vein thrombosis) On: 28-Apr-2018 Request Comments: standing order PT (PROTHROMBIN TIME) ([id number]) : standing orderIndication: History of DVT (deep vein thrombosis) On: 28-Apr-2018 Request Comments: standing order PT (PROTHROMBIN TIME) ([id number]) : standing orderIndication: History of DVT (deep vein thrombosis) On: 27-Apr-2018 Request Comments: standing order PT (PROTHROMBIN TIME) ([id number]) : standing orderIndication: History of DVT (deep vein thrombosis) On: 27-Apr-2018 Request Comments: standing order PT (PROTHROMBIN TIME) ([id number]) : standing orderIndication: History of DVT (deep vein thrombosis) On: 26-Apr-2018 Request Comments: standing order PT (PROTHROMBIN TIME) ([id number]) : standing orderIndication: History of DVT (deep vein thrombosis) On: 26-Apr-2018 Request Comments: standing order PT (Prothrobim Time) ([id number])Indication: Anticoagulated on Coumadin On: 25-Apr-2018 Request PT (PROTHROMBIN TIME) ([id number]) : standing orderIndication: History of DVT (deep vein thrombosis) On: 25-Apr-2018 Request Comments: standing order PT (PROTHROMBIN TIME) ([id number]) : standing orderIndication: History of DVT (deep vein thrombosis) On: 25-Apr-2018 Request Comments: standing order PT (PROTHROMBIN TIME) ([id number]) : standing orderIndication: History of DVT (deep vein thrombosis) On: 24-Apr-2018 Request Comments: standing order PT (PROTHROMBIN TIME) ([id number]) : standing orderIndication: History of DVT (deep vein thrombosis) On: 24-Apr-2018 Request Comments: standing order PT (PROTHROMBIN TIME) ([id number]) : standing orderIndication: History of DVT (deep vein thrombosis) On: 23-Apr-2018 Request Comments: standing order PT (PROTHROMBIN TIME) ([id number]) : standing orderIndication: History of DVT (deep vein thrombosis) On: 23-Apr-2018 Request Comments: standing order PT (PROTHROMBIN TIME) ([id number]) : standing orderIndication: History of DVT (deep vein thrombosis) On: 22-Apr-2018 Request Comments: standing order PT (PROTHROMBIN TIME) ([id number]) : standing orderIndication: History of DVT (deep vein thrombosis) On: 22-Apr-2018 Request Comments: standing order PT (PROTHROMBIN TIME) ([id number]) : standing orderIndication: History of DVT (deep vein thrombosis) On: 21-Apr-2018 Request Comments: standing order PT (PROTHROMBIN TIME) ([id number]) : standing orderIndication: History of DVT (deep vein thrombosis) On: 21-Apr-2018 Request Comments: standing order PT (PROTHROMBIN TIME) ([id number]) : standing orderIndication: History of DVT (deep vein thrombosis) On: 20-Apr-2018 Request Comments: standing order PT (PROTHROMBIN TIME) ([id number]) : standing orderIndication: History of DVT (deep vein thrombosis) On: 20-Apr-2018 Request Comments: standing order PT (PROTHROMBIN TIME) ([id number]) : standing orderIndication: History of DVT (deep vein thrombosis) On: 19-Apr-2018 Request Comments: standing order PT (PROTHROMBIN TIME) ([id number]) : standing orderIndication: History of DVT (deep vein thrombosis) On: 19-Apr-2018 Request Comments: standing order CBC, Platelets & Auto Diff ([id number])Indication: Leukopenia On: 18-Apr-2018 Request PT (Prothrobim Time) ([id number])Indication: Anticoagulated on Coumadin On: 18-Apr-2018 Request PT (PROTHROMBIN TIME) ([id number]) : standing orderIndication: History of DVT (deep vein thrombosis) On: 18-Apr-2018 Request Comments: standing order PT (PROTHROMBIN TIME) ([id number]) : standing orderIndication: History of DVT (deep vein thrombosis) On: 18-Apr-2018 Request Comments: standing order PT (PROTHROMBIN TIME) ([id number]) : standing orderIndication: History of DVT (deep vein thrombosis) On: 17-Apr-2018 Request Comments: standing order PT (PROTHROMBIN TIME) ([id number]) : standing orderIndication: History of DVT (deep vein thrombosis) On: 17-Apr-2018 Request Comments: standing order PT (PROTHROMBIN TIME) ([id number]) : standing orderIndication: History of DVT (deep vein thrombosis) On: 16-Apr-2018 Request Comments: standing order PT (PROTHROMBIN TIME) ([id number]) : standing orderIndication: History of DVT (deep vein thrombosis) On: 16-Apr-2018 Request Comments: standing order PT (PROTHROMBIN TIME) ([id number]) : standing orderIndication: History of DVT (deep vein thrombosis) On: 15-Apr-2018 Request Comments: standing order PT (PROTHROMBIN TIME) ([id number]) : standing orderIndication: History of DVT (deep vein thrombosis) On: 15-Apr-2018 Request Comments: standing order PT (PROTHROMBIN TIME) ([id number]) : standing orderIndication: History of DVT (deep vein thrombosis) On: 14-Apr-2018 Request Comments: standing order PT (PROTHROMBIN TIME) ([id number]) : standing orderIndication: History of DVT (deep vein thrombosis) On: 14-Apr-2018 Request Comments: standing order PT (PROTHROMBIN TIME) ([id number]) : standing orderIndication: History of DVT (deep vein thrombosis) On: 13-Apr-2018 Request Comments: standing order PT (PROTHROMBIN TIME) ([id number]) : standing orderIndication: History of DVT (deep vein thrombosis) On: 13-Apr-2018 Request Comments: standing order PT (PROTHROMBIN TIME) ([id number]) : standing orderIndication: History of DVT (deep vein thrombosis) On: 12-Apr-2018 Request Comments: standing order PT (PROTHROMBIN TIME) ([id number]) : standing orderIndication: History of DVT (deep vein thrombosis) On: 12-Apr-2018 Request Comments: standing order PT (Prothrobim Time) ([id number])Indication: Anticoagulated on Coumadin On: 11-Apr-2018 Request PT (PROTHROMBIN TIME) ([id number]) : standing orderIndication: History of DVT (deep vein thrombosis) On: 11-Apr-2018 Request Comments: standing order PT (PROTHROMBIN TIME) ([id number]) : standing orderIndication: History of DVT (deep vein thrombosis) On: 11-Apr-2018 Request Comments: standing order PT (PROTHROMBIN TIME) ([id number]) : standing orderIndication: History of DVT (deep vein thrombosis) On: 10-Apr-2018 Request Comments: standing order PT (PROTHROMBIN TIME) ([id number]) : standing orderIndication: History of DVT (deep vein thrombosis) On: 10-Apr-2018 Request Comments: standing order PT (PROTHROMBIN TIME) ([id number]) : standing orderIndication: History of DVT (deep vein thrombosis) On: 09-Apr-2018 Request Comments: standing order PT (PROTHROMBIN TIME) ([id number]) : standing orderIndication: History of DVT (deep vein thrombosis) On: 09-Apr-2018 Request Comments: standing order PT (PROTHROMBIN TIME) ([id number]) : standing orderIndication: History of DVT (deep vein thrombosis) On: 08-Apr-2018 Request Comments: standing order PT (PROTHROMBIN TIME) ([id number]) : standing orderIndication: History of DVT (deep vein thrombosis) On: 08-Apr-2018 Request Comments: standing order PT (PROTHROMBIN TIME) ([id number]) : standing orderIndication: History of DVT (deep vein thrombosis) On: 07-Apr-2018 Request Comments: standing order PT (PROTHROMBIN TIME) ([id number]) : standing orderIndication: History of DVT (deep vein thrombosis) On: 07-Apr-2018 Request Comments: standing order PT (PROTHROMBIN TIME) ([id number]) : standing orderIndication: History of DVT (deep vein thrombosis) On: 06-Apr-2018 Request Comments: standing order PT (PROTHROMBIN TIME) ([id number]) : standing orderIndication: History of DVT (deep vein thrombosis) On: 06-Apr-2018 Request Comments: standing order PT (PROTHROMBIN TIME) ([id number]) : standing orderIndication: History of DVT (deep vein thrombosis) On: 05-Apr-2018 Request Comments: standing order PT (PROTHROMBIN TIME) ([id number]) : standing orderIndication: History of DVT (deep vein thrombosis) On: 05-Apr-2018 Request Comments: standing order PT (Prothrobim Time) ([id number])Indication: Anticoagulated on Coumadin On: 04-Apr-2018 Request PT (PROTHROMBIN TIME) ([id number]) : standing orderIndication: History of DVT (deep vein thrombosis) On: 04-Apr-2018 Request Comments: standing order PT (PROTHROMBIN TIME) ([id number]) : standing orderIndication: History of DVT (deep vein thrombosis) On: 04-Apr-2018 Request Comments: standing order PT (Prothrobim Time) ([id number])Indication: History of DVT (deep vein thrombosis) On: 03-Apr-2018 Request Comments: INR PT (PROTHROMBIN TIME) ([id number]) : standing orderIndication: History of DVT (deep vein thrombosis) On: 03-Apr-2018 Request Comments: standing order PT (PROTHROMBIN TIME) ([id number]) : standing orderIndication: History of DVT (deep vein thrombosis) On: 03-Apr-2018 Request Comments: standing order PT (PROTHROMBIN TIME) ([id number]) : standing orderIndication: History of DVT (deep vein thrombosis) On: 02-Apr-2018 Request Comments: standing order PT (PROTHROMBIN TIME) ([id number]) : standing orderIndication: History of DVT (deep vein thrombosis) On: 02-Apr-2018 Request Comments: standing order PT (PROTHROMBIN TIME) ([id number])Indication: History of DVT (deep vein thrombosis) On: 01-Apr-2018 Request PT (PROTHROMBIN TIME) ([id number]) : standing orderIndication: History of DVT (deep vein thrombosis) On: 01-Apr-2018 Request Comments: standing order PT (PROTHROMBIN TIME) ([id number]) : standing orderIndication: History of DVT (deep vein thrombosis) On: 01-Apr-2018 Request Comments: standing order PT (PROTHROMBIN TIME) ([id number]) : standing orderIndication: History of DVT (deep vein thrombosis) On: 01-Apr-2018 Request Comments: standing order PT (PROTHROMBIN TIME) ([id number]) : standing orderIndication: History of DVT (deep vein thrombosis) On: 31-Mar-2018 Request Comments: standing order PT (PROTHROMBIN TIME) ([id number]) : standing orderIndication: History of DVT (deep vein thrombosis) On: 31-Mar-2018 Request Comments: standing order PT (PROTHROMBIN TIME) ([id number]) : standing orderIndication: History of DVT (deep vein thrombosis) On: 30-Mar-2018 Request Comments: standing order PT (PROTHROMBIN TIME) ([id number]) : standing orderIndication: History of DVT (deep vein thrombosis) On: 30-Mar-2018 Request Comments: standing order PT (PROTHROMBIN TIME) ([id number]) : standing orderIndication: History of DVT (deep vein thrombosis) On: 29-Mar-2018 Request Comments: standing order PT (PROTHROMBIN TIME) ([id number]) : standing orderIndication: History of DVT (deep vein thrombosis) On: 29-Mar-2018 Request Comments: standing order PT (Prothrobim Time) ([id number])Indication: Anticoagulated on Coumadin On: 28-Mar-2018 Request PT (PROTHROMBIN TIME) ([id number]) : standing orderIndication: History of DVT (deep vein thrombosis) On: 28-Mar-2018 Request Comments: standing order PT (PROTHROMBIN TIME) ([id number]) : standing orderIndication: History of DVT (deep vein thrombosis) On: 28-Mar-2018 Request Comments: standing order PT (PROTHROMBIN TIME) ([id number]) : standing orderIndication: History of DVT (deep vein thrombosis) On: 27-Mar-2018 Request Comments: standing order PT (PROTHROMBIN TIME) ([id number]) : standing orderIndication: History of DVT (deep vein thrombosis) On: 27-Mar-2018 Request Comments: standing order PT (PROTHROMBIN TIME) ([id number]) : standing orderIndication: History of DVT (deep vein thrombosis) On: 26-Mar-2018 Request Comments: standing order PT (PROTHROMBIN TIME) ([id number]) : standing orderIndication: History of DVT (deep vein thrombosis) On: 26-Mar-2018 Request Comments: standing order PT (PROTHROMBIN TIME) ([id number]) : standing orderIndication: History of DVT (deep vein thrombosis) On: 25-Mar-2018 Request Comments: standing order PT (PROTHROMBIN TIME) ([id number]) : standing orderIndication: History of DVT (deep vein thrombosis) On: 25-Mar-2018 Request Comments: standing order PT (PROTHROMBIN TIME) ([id number]) : standing orderIndication: History of DVT (deep vein thrombosis) On: 24-Mar-2018 Request Comments: standing order PT (PROTHROMBIN TIME) ([id number]) : standing orderIndication: History of DVT (deep vein thrombosis) On: 24-Mar-2018 Request Comments: standing order PT (PROTHROMBIN TIME) ([id number]) : standing orderIndication: History of DVT (deep vein thrombosis) On: 23-Mar-2018 Request Comments: standing order PT (PROTHROMBIN TIME) ([id number]) : standing orderIndication: History of DVT (deep vein thrombosis) On: 23-Mar-2018 Request Comments: standing order PT (PROTHROMBIN TIME) ([id number]) : standing orderIndication: History of DVT (deep vein thrombosis) On: 22-Mar-2018 Request Comments: standing order PT (PROTHROMBIN TIME) ([id number]) : standing orderIndication: History of DVT (deep vein thrombosis) On: 22-Mar-2018 Request Comments: standing order PT (Prothrobim Time) ([id number])Indication: Anticoagulated on Coumadin On: 21-Mar-2018 Request PT (PROTHROMBIN TIME) ([id number]) : standing orderIndication: History of DVT (deep vein thrombosis) On: 21-Mar-2018 Request Comments: standing order PT (PROTHROMBIN TIME) ([id number]) : standing orderIndication: History of DVT (deep vein thrombosis) On: 21-Mar-2018 Request Comments: standing order PT (PROTHROMBIN TIME) ([id number]) : standing orderIndication: History of DVT (deep vein thrombosis) On: 20-Mar-2018 Request Comments: standing order PT (PROTHROMBIN TIME) ([id number]) : standing orderIndication: History of DVT (deep vein thrombosis) On: 20-Mar-2018 Request Comments: standing order PT (PROTHROMBIN TIME) ([id number]) : standing orderIndication: History of DVT (deep vein thrombosis) On: 19-Mar-2018 Request Comments: standing order PT (PROTHROMBIN TIME) ([id number]) : standing orderIndication: History of DVT (deep vein thrombosis) On: 19-Mar-2018 Request Comments: standing order PT (PROTHROMBIN TIME) ([id number]) : standing orderIndication: History of DVT (deep vein thrombosis) On: 18-Mar-2018 Request Comments: standing order PT (PROTHROMBIN TIME) ([id number]) : standing orderIndication: History of DVT (deep vein thrombosis) On: 18-Mar-2018 Request Comments: standing order PT (PROTHROMBIN TIME) ([id number]) : standing orderIndication: History of DVT (deep vein thrombosis) On: 17-Mar-2018 Request Comments: standing order PT (PROTHROMBIN TIME) ([id number]) : standing orderIndication: History of DVT (deep vein thrombosis) On: 17-Mar-2018 Request Comments: standing order PT (PROTHROMBIN TIME) ([id number]) : standing orderIndication: History of DVT (deep vein thrombosis) On: 16-Mar-2018 Request Comments: standing order PT (PROTHROMBIN TIME) ([id number]) : standing orderIndication: History of DVT (deep vein thrombosis) On: 16-Mar-2018 Request Comments: standing order PT (PROTHROMBIN TIME) ([id number]) : standing orderIndication: History of DVT (deep vein thrombosis) On: 15-Mar-2018 Request Comments: standing order PT (PROTHROMBIN TIME) ([id number]) : standing orderIndication: History of DVT (deep vein thrombosis) On: 15-Mar-2018 Request Comments: standing order PT (Prothrobim Time) ([id number])Indication: Anticoagulated on Coumadin On: 14-Mar-2018 Request PT (PROTHROMBIN TIME) ([id number]) : standing orderIndication: History of DVT (deep vein thrombosis) On: 14-Mar-2018 Request Comments: standing order PT (PROTHROMBIN TIME) ([id number]) : standing orderIndication: History of DVT (deep vein thrombosis) On: 14-Mar-2018 Request Comments: standing order PT (PROTHROMBIN TIME) ([id number]) : standing orderIndication: History of DVT (deep vein thrombosis) On: 13-Mar-2018 Request Comments: standing order PT (PROTHROMBIN TIME) ([id number]) : standing orderIndication: History of DVT (deep vein thrombosis) On: 13-Mar-2018 Request Comments: standing order PT (PROTHROMBIN TIME) ([id number]) : standing orderIndication: History of DVT (deep vein thrombosis) On: 12-Mar-2018 Request Comments: standing order PT (PROTHROMBIN TIME) ([id number]) : standing orderIndication: History of DVT (deep vein thrombosis) On: 12-Mar-2018 Request Comments: standing order PT (PROTHROMBIN TIME) ([id number]) : standing orderIndication: History of DVT (deep vein thrombosis) On: 11-Mar-2018 Request Comments: standing order PT (PROTHROMBIN TIME) ([id number]) : standing orderIndication: History of DVT (deep vein thrombosis) On: 11-Mar-2018 Request Comments: standing order PT (PROTHROMBIN TIME) ([id number]) : standing orderIndication: History of DVT (deep vein thrombosis) On: 10-Mar-2018 Request Comments: standing order PT (PROTHROMBIN TIME) ([id number]) : standing orderIndication: History of DVT (deep vein thrombosis) On: 10-Mar-2018 Request Comments: standing order PT (PROTHROMBIN TIME) ([id number]) : standing orderIndication: History of DVT (deep vein thrombosis) On: 09-Mar-2018 Request Comments: standing order PT (PROTHROMBIN TIME) ([id number]) : standing orderIndication: History of DVT (deep vein thrombosis) On: 09-Mar-2018 Request Comments: standing order PT (PROTHROMBIN TIME) ([id number]) : standing orderIndication: History of DVT (deep vein thrombosis) On: 08-Mar-2018 Request Comments: standing order PT (PROTHROMBIN TIME) ([id number]) : standing orderIndication: History of DVT (deep vein thrombosis) On: 08-Mar-2018 Request Comments: standing order PT (Prothrobim Time) ([id number])Indication: Anticoagulated on Coumadin On: 07-Mar-2018 Request PT (PROTHROMBIN TIME) ([id number]) : standing orderIndication: History of DVT (deep vein thrombosis) On: 07-Mar-2018 Request Comments: standing order PT (PROTHROMBIN TIME) ([id number]) : standing orderIndication: History of DVT (deep vein thrombosis) On: 07-Mar-2018 Request Comments: standing order PT (PROTHROMBIN TIME) ([id number]) : standing orderIndication: History of DVT (deep vein thrombosis) On: 06-Mar-2018 Request Comments: standing order PT (PROTHROMBIN TIME) ([id number]) : standing orderIndication: History of DVT (deep vein thrombosis) On: 06-Mar-2018 Request Comments: standing order PT (PROTHROMBIN TIME) ([id number]) : standing orderIndication: History of DVT (deep vein thrombosis) On: 05-Mar-2018 Request Comments: standing order PT (PROTHROMBIN TIME) ([id number]) : standing orderIndication: History of DVT (deep vein thrombosis) On: 05-Mar-2018 Request Comments: standing order PT (Prothrobim Time) ([id number])Indication: History of DVT (deep vein thrombosis) On: 16-Ivc-55520:49 Request Comments: INR PT (PROTHROMBIN TIME) ([id number]) : standing orderIndication: History of DVT (deep vein thrombosis) On: 04-Mar-2018 Request Comments: standing order PT (PROTHROMBIN TIME) ([id number]) : standing orderIndication: History of DVT (deep vein thrombosis) On: 04-Mar-2018 Request Comments: standing order PT (PROTHROMBIN TIME) ([id number]) : standing orderIndication: History of DVT (deep vein thrombosis) On: 03-Mar-2018 Request Comments: standing order PT (PROTHROMBIN TIME) ([id number]) : standing orderIndication: History of DVT (deep vein thrombosis) On: 03-Mar-2018 Request Comments: standing order PT (PROTHROMBIN TIME) ([id number])Indication: History of DVT (deep vein thrombosis) On: 23-Pas-052213:54 Request PT (PROTHROMBIN TIME) ([id number]) : standing orderIndication: History of DVT (deep vein thrombosis) On: 80-Rvb-268022:48 Request Comments: standing order PT (Prothrobim Time) ([id number])Indication: Anticoagulated on Coumadin On: 28-Feb-2018 Request PT (Prothrobim Time) ([id number])Indication: Anticoagulated on Coumadin On: 21-Feb-2018 Request PT (Prothrobim Time) ([id number])Indication: Anticoagulated on Coumadin On: 14-Feb-2018 Request YURIY (ANTINUCLEAR ANTIBODY) ([id number])Indication: Leukopenia On: 0-Mbd-270902:30 Request Comments: give lab slips UPEP ([id number])Indication: Leukopenia On: 3-Fuc-928541:30 Request Comments: give lab slips SPEP ([id number])Indication: Leukopenia On: 3-Ukd-743410:29 Request Comments: give lab slips PT (Prothrobim Time) ([id number])Indication: Anticoagulated on Coumadin On: 07-Feb-2018 Request PT (Prothrobim Time) ([id number])Indication: Anticoagulated on Coumadin On: 31-Jan-2018 Request PT (Prothrobim Time) ([id number])Indication: Anticoagulated on Coumadin On: 24-Jan-2018 Request PT (Prothrobim Time) ([id number])Indication: Anticoagulated on Coumadin On: 17-Jan-2018 Request PT (Prothrobim Time) ([id number])Indication: Anticoagulated on Coumadin On: 10-Jan-2018 Request PT (Prothrobim Time) ([id number])Indication: Anticoagulated on Coumadin On: 03-Jan-2018 Request PT (Prothrobim Time) ([id number])Indication: Anticoagulated on Coumadin On: 27-Dec-2017 Request PT (Prothrobim Time) ([id number])Indication: Anticoagulated on Coumadin On: 20-Dec-2017 Request BILIRUBIN, TOTAL ([id number])Indication: Encounter for screening for lipid disorder On: 01-Qvx-552040:28 Request BILIRUBIN, DIRECT ([id number])Indication: Encounter for screening for lipid disorder On: 96-Hzo-304116:28 Request CBC, PLATELETS & AUT DIFF ([id number])Indication: Encounter for screening for lipid disorder On: 24-Bbw-024517:47 Request Metabolic Panel, Comprehensive ([id number])Indication: Encounter for screening for lipid disorder On: 47-Nbf-23118:10 Request CBC & PLATELETS (AUTO) ([id number])Indication: Encounter for screening for lipid disorder On: 00-Ldi-83555:10 Request LIPID PANEL ([id number])Indication: Encounter for screening for lipid disorder On: 35-Bbg-88490:09 Request PT (Prothrobim Time) ([id number])Indication: Anticoagulated on Coumadin On: 13-Dec-2017 Request PT (Prothrobim Time) ([id number])Indication: Anticoagulated on Coumadin On: 06-Dec-2017 Request PT (Prothrobim Time) ([id number])Indication: Anticoagulated on Coumadin On: 29-Nov-2017 Request PT (Prothrobim Time) ([id number])Indication: Anticoagulated on Coumadin On: 22-Nov-2017 Request PT (Prothrobim Time) ([id number])Indication: Anticoagulated on Coumadin On: 15-Nov-2017 Request PT (Prothrobim Time) ([id number])Indication: Anticoagulated on Coumadin On: 08-Nov-2017 Request PT (Prothrobim Time) ([id number])Indication: Anticoagulated on Coumadin On: 01-Nov-2017 Request PT (Prothrobim Time) ([id number])Indication: Anticoagulated on Coumadin On: 25-Oct-2017 Request PT (Prothrobim Time) ([id number])Indication: Anticoagulated on Coumadin On: 18-Oct-2017 Request PT (Prothrobim Time) ([id number])Indication: Anticoagulated on Coumadin On: 11-Oct-2017 Request PT (Prothrobim Time) ([id number])Indication: Anticoagulated on Coumadin On: 04-Oct-2017 Request PT (Prothrobim Time) ([id number])Indication: Anticoagulated on Coumadin On: 27-Sep-2017 Request PT (Prothrobim Time) ([id number])Indication: Anticoagulated on Coumadin On: 20-Sep-2017 Request PT (Prothrobim Time) ([id number])Indication: Anticoagulated on Coumadin On: 13-Sep-2017 Request PT (Prothrobim Time) ([id number])Indication: Anticoagulated on Coumadin On: 06-Sep-2017 Request PT (Prothrobim Time) ([id number])Indication: Anticoagulated on Coumadin On: 30-Aug-2017 Request PT (Prothrobim Time) ([id number])Indication: Anticoagulated on Coumadin On: 23-Aug-2017 Request PT (Prothrobim Time) ([id number])Indication: Anticoagulated on Coumadin On: 16-Aug-2017 Request PT (Prothrobim Time) ([id number])Indication: Anticoagulated on Coumadin On: 09-Aug-2017 Request PT (Prothrobim Time) ([id number])Indication: Anticoagulated on Coumadin On: 02-Aug-2017 Request PT (Prothrobim Time) ([id number])Indication: Anticoagulated on Coumadin On: 26-Jul-2017 Request PT (Prothrobim Time) ([id number])Indication: Anticoagulated on Coumadin On: 19-Jul-2017 Request PT (Prothrobim Time) ([id number])Indication: Anticoagulated on Coumadin On: 12-Jul-2017 Request PT (Prothrobim Time) ([id number])Indication: Anticoagulated on Coumadin On: 05-Jul-2017 Request PT (Prothrobim Time) ([id number])Indication: Anticoagulated on Coumadin On: 28-Jun-2017 Request PT (Prothrobim Time) ([id number])Indication: Anticoagulated on Coumadin On: 21-Jun-2017 Request PT (Prothrobim Time) ([id number])Indication: Anticoagulated on Coumadin On: 14-Jun-2017 Request PT (Prothrobim Time) ([id number])Indication: Anticoagulated on Coumadin On: 07-Jun-2017 Request PT (Prothrobim Time) ([id number])Indication: Anticoagulated on Coumadin On: 31-May-2017 Request PT (Prothrobim Time) ([id number])Indication: Anticoagulated on Coumadin On: 25-May-2017 Request PT (Prothrobim Time) ([id number])Indication: Anticoagulated on Coumadin On: 25-May-2017 Request PT (Prothrobim Time) ([id number])Indication: Anticoagulated on Coumadin On: 24-May-2017 Request PT (Prothrobim Time) ([id number])Indication: Anticoagulated on Coumadin On: 17-May-2017 Request PT (Prothrobim Time) ([id number])Indication: Anticoagulated on Coumadin On: 10-May-2017 Request PT (Prothrobim Time) ([id number])Indication: Anticoagulated on Coumadin On: 03-May-2017 Request PT (Prothrobim Time) ([id number])Indication: Anticoagulated on Coumadin On: 26-Apr-2017 Request PT (Prothrobim Time) ([id number])Indication: Anticoagulated on Coumadin On: 25-Apr-2017 Request PT (Prothrobim Time) ([id number])Indication: Anticoagulated on Coumadin On: 25-Apr-2017 Request PT (Prothrobim Time) ([id number])Indication: Anticoagulated on Coumadin On: 19-Apr-2017 Request PT (Prothrobim Time) ([id number])Indication: Anticoagulated on Coumadin On: 12-Apr-2017 Request PT (Prothrobim Time) ([id number])Indication: Anticoagulated on Coumadin On: 05-Apr-2017 Request PT (Prothrobim Time) ([id number])Indication: Anticoagulated on Coumadin On: 29-Mar-2017 Request PT (Prothrobim Time) ([id number])Indication: Anticoagulated on Coumadin On: 26-Mar-2017 Request PT (Prothrobim Time) ([id number])Indication: Anticoagulated on Coumadin On: 26-Mar-2017 Request PT (Prothrobim Time) ([id number])Indication: Anticoagulated on Coumadin On: 22-Mar-2017 Request PT (Prothrobim Time) ([id number])Indication: Anticoagulated on Coumadin On: 15-Mar-2017 Request PT (Prothrobim Time) ([id number])Indication: Anticoagulated on Coumadin On: 08-Mar-2017 Request PT (Prothrobim Time) ([id number])Indication: slagger (current) use of anticoagulants (Renamed from retirement current use of anticoagulant therapy) On: 77-Nka-709832:48 Request Comments: Standing order PT (Prothrobim Time) ([id number])Indication: Anticoagulated on Coumadin On: 01-Mar-2017 Request PT (Prothrobim Time) ([id number])Indication: Anticoagulated on Coumadin On: 24-Feb-2017 Request PT (Prothrobim Time) ([id number])Indication: Anticoagulated on Coumadin On: 24-Feb-2017 Request PT (Prothrobim Time) ([id number])Indication: Anticoagulated on Coumadin On: 22-Feb-2017 Request PT (Prothrobim Time) ([id number])Indication: Anticoagulated on Coumadin On: 15-Feb-2017 Request PT (Prothrobim Time) ([id number])Indication: Anticoagulated on Coumadin On: 08-Feb-2017 Request PT (Prothrobim Time) ([id number])Indication: Anticoagulated on Coumadin On: 01-Feb-2017 Request PT (Prothrobim Time) ([id number])Indication: Anticoagulated on Coumadin On: 25-Jan-2017 Request PT (Prothrobim Time) ([id number])Indication: Anticoagulated on Coumadin On: 25-Jan-2017 Request PT (Prothrobim Time) ([id number])Indication: Anticoagulated on Coumadin On: 25-Jan-2017 Request PT (Prothrobim Time) ([id number])Indication: Anticoagulated on Coumadin On: 18-Jan-2017 Request PT (Prothrobim Time) ([id number])Indication: Anticoagulated on Coumadin On: 11-Jan-2017 Request PT (Prothrobim Time) ([id number])Indication: Anticoagulated on Coumadin On: 04-Jan-2017 Request PT (Prothrobim Time) ([id number])Indication: Anticoagulated on Coumadin On: 28-Dec-2016 Request PT (Prothrobim Time) ([id number])Indication: Anticoagulated on Coumadin On: 26-Dec-2016 Request PT (Prothrobim Time) ([id number])Indication: Anticoagulated on Coumadin On: 26-Dec-2016 Request PT (Prothrobim Time) ([id number])Indication: Anticoagulated on Coumadin On: 21-Dec-2016 Request PT (Prothrobim Time) ([id number])Indication: Anticoagulated on Coumadin On: 14-Dec-2016 Request PT (Prothrobim Time) ([id number])Indication: Anticoagulated on Coumadin On: 07-Dec-2016 Request PT (Prothrobim Time) ([id number])Indication: Anticoagulated on Coumadin On: 30-Nov-2016 Request PT (Prothrobim Time) ([id number])Indication: Anticoagulated on Coumadin On: 26-Nov-2016 Request PT (Prothrobim Time) ([id number])Indication: Anticoagulated on Coumadin On: 26-Nov-2016 Request PT (Prothrobim Time) ([id number])Indication: Anticoagulated on Coumadin On: 23-Nov-2016 Request PT (Prothrobim Time) ([id number])Indication: Anticoagulated on Coumadin On: 16-Nov-2016 Request PT (Prothrobim Time) ([id number])Indication: Anticoagulated on Coumadin On: 09-Nov-2016 Request PT (Prothrobim Time) ([id number])Indication: Anticoagulated on Coumadin On: 02-Nov-2016 Request PT (Prothrobim Time) ([id number])Indication: Anticoagulated on Coumadin On: 27-Oct-2016 Request PT (Prothrobim Time) ([id number])Indication: Anticoagulated on Coumadin On: 27-Oct-2016 Request PT (Prothrobim Time) ([id number])Indication: Anticoagulated on Coumadin On: 26-Oct-2016 Request PT (Prothrobim Time) ([id number])Indication: Anticoagulated on Coumadin On: 19-Oct-2016 Request PT (Prothrobim Time) ([id number])Indication: Anticoagulated on Coumadin On: 12-Oct-2016 Request PT (Prothrobim Time) ([id number])Indication: Anticoagulated on Coumadin On: 05-Oct-2016 Request PT (Prothrobim Time) ([id number])Indication: Anticoagulated on Coumadin On: 28-Sep-2016 Request PT (Prothrobim Time) ([id number])Indication: Anticoagulated on Coumadin On: 27-Sep-2016 Request PT (Prothrobim Time) ([id number])Indication: Anticoagulated on Coumadin On: 27-Sep-2016 Request PT (Prothrobim Time) ([id number])Indication: Anticoagulated on Coumadin On: 21-Sep-2016 Request PT (Prothrobim Time) ([id number])Indication: Anticoagulated on Coumadin On: 14-Sep-2016 Request PT (Prothrobim Time) ([id number])Indication: Anticoagulated on Coumadin On: 07-Sep-2016 Request PT (Prothrobim Time) ([id number])Indication: Anticoagulated on Coumadin On: 31-Aug-2016 Request PT (Prothrobim Time) ([id number])Indication: Anticoagulated on Coumadin On: 28-Aug-2016 Request PT (Prothrobim Time) ([id number])Indication: Anticoagulated on Coumadin On: 28-Aug-2016 Request PT (Prothrobim Time) ([id number])Indication: Anticoagulated on Coumadin On: 24-Aug-2016 Request PT (Prothrobim Time) ([id number])Indication: Anticoagulated on Coumadin On: 17-Aug-2016 Request PT (Prothrobim Time) ([id number])Indication: Anticoagulated on Coumadin On: 10-Aug-2016 Request PT (Prothrobim Time) ([id number])Indication: Anticoagulated on Coumadin On: 03-Aug-2016 Request PT (Prothrobim Time) ([id number])Indication: Anticoagulated on Coumadin On: 29-Jul-2016 Request PT (Prothrobim Time) ([id number])Indication: Anticoagulated on Coumadin On: 29-Jul-2016 Request PT (Prothrobim Time) ([id number])Indication: Anticoagulated on Coumadin On: 27-Jul-2016 Request PT (Prothrobim Time) ([id number])Indication: Anticoagulated on Coumadin On: 20-Jul-2016 Request PT (Prothrobim Time) ([id number])Indication: Anticoagulated on Coumadin On: 13-Jul-2016 Request PT (Prothrobim Time) ([id number])Indication: Anticoagulated on Coumadin On: 06-Jul-2016 Request Metabolic Panel, Comprehensive ([id number])Indication: Irritable Bowel Syndrome On: 19-Ehm-168614:28 Request TSH ([id number])Indication: Irritable Bowel Syndrome On: 30-Gyx-589754:28 Request CBC, Platelets & Auto Diff ([id number])Indication: Irritable Bowel Syndrome On: 49-Nrk-299533:28 Request PT (Prothrobim Time) ([id number])Indication: Anticoagulated on Coumadin On: 48-Qtn-570809:24 Request PT (Prothrobim Time) ([id number])Indication: DVT (deep venous thrombosis) On: 14-Wvd-959878:11 Request Comments: INR - STANDING ORDER Vitamin D Hydroxy ([id number])Indication: Osteoporosis On: 13-Uny-551564:16 Request TSH ([id number])Indication: Osteoporosis On: 85-Ssg-317432:16 Request CBC with auto diff ([id number])Indication: Benign Essential Hypertension On: 19-Qfr-920838:16 Request METABOLIC PANEL, COMPREHENSIVE ([id number])Indication: Benign Essential Hypertension On: 54-Bho-667295:16 Request LIPID PANEL ([id number])Indication: Hyperlipidemia On: 51-Stk-860854:16 Request CBC W/AUTO DIFF WBC ([id number])Indication: Benign Essential Hypertension On: :34 Request METABOLIC PANEL, COMPREHENSIVE ([id number])Indication: Benign Essential Hypertension On: :34 Request TSH ([id number])Indication: Osteoporosis On: :39 Request CBC W/AUTO DIFF WBC ([id number])Indication: Osteoporosis On: :39 Request LIPID PANEL ([id number])Indication: Hyperlipidemia On: :38 Request METABOLIC PANEL, COMPREHENSIVE ([id number])Indication: Benign Essential Hypertension On: :38 Request PT (Prothrobim Time) ([id number])Indication: DVT (deep venous thrombosis) On: 9-Nmt-514176:18 Request Comments: FINGER STICKSTANDING ORDER PT (Prothrobim Time) ([id number])Indication: DVT (deep venous thrombosis) On: 95-Bax-296081:28 Request Comments: Standing Order URINALYSIS, W/ MICRO ([id number])Indication: Benign Essential Hypertension On: :37 Request METABOLIC PANEL, COMPREHENSIVE ([id number])Indication: Benign Essential Hypertension On: :37 Request LIPID PANEL ([id number])Indication: Hyperlipidemia On: :37 Request CBC W/AUTO DIFF WBC ([id number])Indication: DVT (deep venous thrombosis) On: :37 Request PT (Prothrobim Time) ([id number])Indication: DVT (deep venous thrombosis) On: 88-Zql-470126:02 Request CBC WITH MANUAL DIFF ([id number])Indication: Benign Essential Hypertension On: :39 Request METABOLIC PANEL, COMPREHENSIVE ([id number])Indication: Hyperlipidemia On: :39 Request LIPID PANEL ([id number])Indication: Hyperlipidemia On: :39 Request PT (Prothrobim Time) ([id number])Indication: DVT (deep venous thrombosis) On: 18-Iku-00788:07 Request Comments: pls call senior contract specialist Dr Hunter with results on 05/20/13 PT (Prothrobim Time) ([id number])Indication: DVT (deep venous thrombosis) On: 93-Sgx-100921:00 Request Comments: Standing Order PT (Prothrobim Time) ([id number])Indication: DVT (deep venous thrombosis) On: 02-Ekq-90998:59 Request Comments: INR - STANDING ORDER x 1 year URINALYSIS, W/ MICRO ([id number])Indication: Benign Essential Hypertension On: :15 Request CBC WITH MANUAL DIFF ([id number])Indication: Benign Essential Hypertension On: :15 Request METABOLIC PANEL, COMPREHENSIVE ([id number])Indication: Benign Essential Hypertension On: :14 Request LIPID PANEL ([id number])Indication: Hyperlipidemia On: :14 Request METABOLIC PANEL, COMPREHENSIVE ([id number])Indication: Benign Essential Hypertension On: :06 Request LIPID PANEL ([id number])Indication: Hyperlipidemia On: 89-Nwb-95631:06 Request URINE HANNAH CULTURE-IDENTIFICATN ([id number])Indication: Urinary frequency On: 07-Sep-20128:56 Request URINE HANNAH CULTURE-IDENTIFICATN ([id number])Indication: Insect bite On: 91-Wal-637425:19 Request Lyme Disease,Serum, Western Blot ([id number])Indication: Insect bite On: 00-Ynr-301494:19 Request PT (Prothrobim Time) ([id number])Indication: DVT (deep venous thrombosis) On: 25-Qau-162033:59 Request Comments: standing order LIPID PANEL ([id number])Indication: FAMILY HISTORY OF ISCHEMIC HEART DISEASE On: 97-Lnu-996463:28 Request LIPID PANEL ([id number])Indication: FAMILY HISTORY OF ISCHEMIC HEART DISEASE On: 4-Ckt-241173:51 Request Vitamin D Hydroxy ([id number])Indication: Osteoporosis On: 0-Soy-891205:18 Request TSH ([id number])Indication: Osteoporosis On: :18 Request URINALYSIS, W/ MICRO ([id number])Indication: Osteoporosis On: :18 Request CBC WITH MANUAL DIFF ([id number])Indication: Osteoporosis On: 4-Wfg-604887:18 Request METABOLIC PANEL, COMPREHENSIVE ([id number])Indication: Osteoporosis On: 7-Xwj-782709:18 Request PTT (Activated Partial Thromboplastin Time) ([id number])Indication: DVT (deep venous thrombosis) On: 8-Bhd-218043:16 Request PT (Prothrobim Time) ([id number])Indication: DVT (deep venous thrombosis) On: 3-Yok-879976:16 Request Planned Encounters Medical; 3 Month FU - On: 17-May-2018 8:30 [facility] Selam Blair CNP, CNP, Mary E Planned Procedures DOPPLER ULTRASOUND OF LEFT LOWER On: 14-Feb-2018 Intent EXTREMITY FOR VENOUS THROMBOEMBOLISM Comments: STAT R/O DVT-Hx of DVT (75609)By: Sigrid Mobley DEXA SCAN AXIAL SKELETON ([id number])By: On: 17-Dec-2017 Intent Selam Blair CNP, CNP, Mary E Aerosol Treatment ([id number])By: Johnnie On: 02-Jun-2017 Intent Selam DAVIES CNP, Mary E Ultrasound - LiverBy: Selam Blair CNP On: 15-Dec-2016 Intent E Selam Blair CNP Aerosol Treatment ([id number])By: Johnnie On: 13-Oct-2016 Intent Selam DAVIES E Selam Blair CNP Aerosol Treatment ([id number])By: Aleksey On: 19-Feb-2015 Intent Eliana HOFFMANN Ultrasound - AortaBy: Helen Barnes DO On: 18-Dec-2014 Intent EKG ([id number])By: Helen Barnes DO On: 05-Nov-2014 Intent Comments: ekg showed normal sinus rhythym, normal axis, no acute st/t wave changes BILATERAL MAMMOGRAMS ([id number])By: Timothy On: 17-Sep-2014 Intent Helen [place] Radiology - Shoulder - LeftBy: Bonelanii On: 05-Mar-2014 Intent Fatimah RANDLE Comments: if not better with PT MAMMOGRAM, SCREENING, BOTH BREASTS On: 08-Aug-2013 Intent ([id number])By: Helen Barnes DO Eprescribed prescriptions ([id number])By: On: 08-Aug-2013 Intent Helen Barnes DO DXA, BONE DENSITY, AXIAL SKELETON On: 21-Oct-2012 Intent ([id number])By: Helen Barnes DO Comments: - mar Eprescribed prescriptions ([id number])By: On: 21-Oct-2012 Intent So Bailey Breast Screening - BilateralBy: Timothy On: 19-Sep-2012 Intent Helen [place] Eprescribed prescriptions ([id number])By: On: 30-Aug-2012 Intent So Bailey Spirometry ([id number])By: Helen Barnes DO On: 11-Mar-2012 Intent A Comments: good effort and curve mild obst- Doppler Ultrasound OtherBy: Timothy [place], On: 11-Mar-2012 Intent Helen Coley Comments: both legs- stat call results Eprescribed prescriptions ([id number])By: On: 11-Mar-2012 Intent So Bailey TD Injection , IM ([id number])By: Leo, On: 11-Mar-2012 Intent So Comments: 2003 FLU VAC, SPLIT, >3 YEARS, INTRAMUSC On: 11-Mar-2012 Intent ([id number])By: So Bailey Comments: got at [facility] Instructions Name Dates Details BMI 22.0-22.9, [...] Coumadin : DISCONTINUED - PT (PROTHROMBIN TIME) ([id number]) Indication: Anticoagulated on Coumadin Irritable Bowel Syndrome [...] 07-Feb-2018 13:34 Nonsmoker, BMI 22.0-22.9, adult, Leukopenia, retirement (current) use of anticoagulants (Renamed from slagger current use of anticoagulant therapy), Anticoagulated on [...] patient does not have durable power of attorney lawyer. The patient has noticed nothing from the geriatic depression scale. Other providers contributing to the patient's care are [employer] (dr. meseret santana) and other: (eye- dr. [...] Medicine Annotation/Addendum On: 01-Mar-2017 12:47 Encounter Diagnosis: retirement (current) use of anticoagulants (Renamed from retirement current use of anticoagulant therapy) End: 01-Mar-2017 [...] patient does not have durable power of attorney lawyer or living will . The patient has noticed nothing from the geriatic depression scale. Other providers contributing to the patient's care are other: (dr crawford for eyes). Note for Annual Medicare Exam: Pt has [employer] done by her GROUP SALES MANAGER.Refuses flu shotRefuses pnumonia or LymeEncounter Diagnosis: Nonsmoker, BMI 21.0-21.9, adult, Encounter for annual general medical examination with abnormal findings in adult, retirement (current) use of anticoagulants (Renamed from retirement current use of anticoagulant therapy), Liver cyst [facility] Phone Encounter On: 09-Nov-2016 16:54 [facility] End: 09-Nov-2016 16:55 Phone Encounter On: 15-Oct-2016 12:40 Encounter Diagnosis: [facility] End: 15-Oct-2016 12:42 [facility] [...] her to start on linzess. Saw [place] CT of pelvis and abd with contrast, [...] patient does not have durable power of attorney lawyer. The p atient has noticed nothing from the geriatic depression scale. Other providers contributing to the patient's care are other: (ENT and dr crawford for eyes). Note for Annual Medicare Exam: Pt has [employer] done by her GROUP SALES MANAGER., [ADDITIONAL REASON] Follow up for chronic medical [...] diet and still seeing lyme specialist in [place]- her weight comeing down and exercsing more [...] chronic medical issues: seeing lyme specialist in [place] and on meds for this and bartoneall- [...]
--- OUTSIDE RECORDS SUMMARY | 2018-06-27 17:44 | XMS RPT_ITS | Continuity of Care Document ---
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 (Renamed from group home current use of anticoagulant therapy) (Z79.01, V58.61) [...] Latif Start : 13-Sep-2017 Active Calcium 1200 6893-7699 MG-UNIT Oral Tablet Chewable daily (4054-6013 MG-UNIT) Active Cinnamon 500 MG Oral Capsule [...] Quantity: 30 {Tablet} Refills: 1 Ordered:17-Dec-2017 Johnnie MANAGER OF CUSTOMER BILLING, Selam Taveras MANAGER OF CUSTOMER BILLING, Selam Latif Start : 17-Dec-2017 Active Latanoprost [...] 500MG (Oral Tablet) 1 (one) Tablet bid m82juhv for 10 days Quantity: 20 {Tablet} Refills: [...] Refills: 0 Ordered:02-Jun-2017 Johnnie DAVIES, Selam Taveras MANAGER OF CUSTOMER BILLING, Selam Latif Start : 02-Jun-2017 End : [...] (M85.80, 733.90) Status: Inactive as of 11-Mar-2012 [place] [facility] (H10.029, 372.03) Status: Inactive as of [...] Status: Resolved as of 21-Oct-2012 Vaccine for oimmrfpkoz-dfbasoo-xmjfilvcc with poliomyelitis (Z23, V06.3) Status: Inactive as of 21-Oct-2012 Procedures Procedure Dates Details Appendectomy Completed D&C Completed Comments: [facility] Tonsillectomy Completed Tubal Ligation Completed Date Value Details 16-Feb-2018 Venous Duplex Lower Extremity Result: Comments: See Note; NOTES: [facility] Cardiovascular Services [address] [place] [address] Venous Duplex US, Unilateral 02/15/18 1350 MR#: [id number] Acct: [id number] Name: YAHAIRA ENG Rep #: [id number] : 1950 67 From: Tony Valentino MD [...] Tony Valentino MD CC: Selam Blair NP; AUTOMATION LEAD-C Annie Mobley Date Dictated: 02/15/18 1350 Date Transcribed: 02/16/18812 Cfo: Signed 23-Dec-2017 Dexa Bone Density Study Result: Comments: See Note; NOTES: [facility] Imaging Services [address] [place] [address] Dexa Bone Density Study MR#: [id number] Acct: [id number] Name: YAHAIRA BRYANT Rep #: [id number] : 1950 F 67 From: Cole Coronado MD PCP: Selam Blair NP Status: REG CLI Study: Dexa Bone Density Study Date of Exam: 12/23/17 Exam# [id number] Ordering Dr: Selam Blair STUDY: DUAL ENERGY [...] Cole Coronado MD at 8:50 EDT Tel [phone], Service support , CC: Selam Blair NP Cfo: Signed 07-Oct-2017 SCREENING MAMM (CAD), BILAT Result: Comments: See Note; NOTES: [facility] Imaging Services [address] [place] [address] SCREENING MAMM (CAD), BILAT MR#: [id number] Acct: [id number] Name: YAHAIRA BRYANT Rep #: [id number] : 1950 F 67 From: Cole Coronado MD PCP: Selam Blair NP Status: REG CLI Study: SCREENING MAMM (CAD), BILAT Date of Exam: 10/07/17 Exam# [id number] Ordering Dr: Aliza Santana MD MAMMOGRAPHY - [...] delay biopsy of a clinically suspicious abnormality. [id number] Electronically Signed: Cole Coronado MD at 11:23 EDT Tel [phone], Service support , CC: Selam Blair NP; Aliza Santana MD Cfo: Signed 23-Sep-2017 Downtime Report Result: Comments: See Note; NOTES: [facility] Medical Records Department [address] [place] [address] Downtime Report MR#: [id number] Acct: [id number] Name: YAHAIRA BRYANT R Rep #: [id number] : 1950 67 From: Jered Kumar PCP: Selam Blair NP Status: REG CLI This patient was seen during an EMR downtime September 06, 2017 - September 13, 2017. This patient may have a combination of p aper and electronic documentation or all paper documentation. All documentation is viewable within the e-chart portion of [employer] for each patient visit. 16-Dec-2016 Liver Result: Comments: See Note; NOTES: [facility] Imaging Services [address] [facility] [place] [address] Liver MR#: [id number] Acct: [id number] Name: YAHAIRA BRYANT Rep #: [id number] : 1950 F 66 From: Jose Mcghee MD PCP: Selam Blair Status: REG CLI Study: Liver Date of Exam: 12/16/16 Exam# [id number] Ordering Dr: Selam Blair STUDY: ABDOMINAL ULTRASOUND [...] MD at 16:28 EDT , Service support [phone], CC: Selam Blair Cfo: Signed 21-Dec-2014 Aorta Result: Comments: See Note; NOTES: [facility] Imaging Services [address] [place] [address] Ultrasound Report MR#: [id number] Acct: [id number] Name: YAHAIRA BRYANT Rep #: [id number] : 1950 F 64 From: Cole Coronado MD PCP: Helen Barnes DO Status: REG CLI Study: Aorta Date of Exam: 12/21/14 Exam# [id number] Ordering Dr: Helen Barnes DO PROCEDURES: ULTRASOUN [...] Cole Coronado MD at 9:45 EDT Tel [phone], Service support [phone], CC: Helen Barnes DO Cfo: Signed 12-Dec-2014 Bilat Scrn Digital AND CAD Result: Comments: See Note; NOTES: [facility] Imaging Services [address] [place] [address] Breast Imaging Report MR#: [id number] Acct: [id number] Name: YAHAIRA BRYANT Rep # : [id number] : 1950 F 64 From: Gabino South MD PCP: Helen Barnes DO Status: REG CLI Study: Bilat Scrn Digital AND CAD Date of Exam: 12/12/14 Exam# [id number] Ordering Dr: Helen Barnes DO M AMMOGRAPHY [...] at 14:51 EDT Tel , Service support [phone], CC: Helen Barnes DO Cfo: Signed 12-Dec-2014 Bilat Scrn Digital AND CAD Result: Comments: See Note; NOTES: [facility] Imaging Services [address] [place] [address] Breast Imaging Report MR#: [id number] Acct: [id number] Name: YAHAIRA BRYANT Rep # : [id number] : 1950 F 64 From: Gabino South MD PCP: Helen Barnes DO Status: REG CLI Study: Bilat Scrn Digital AND CAD Date of Exam: 12/12/14 Exam# [id number] Ordering Dr: Helen Barnes DO A DDENDUM by Cole Coronado MD on 12/17/14 at 1003 ADDENDUM This is an addendum report for BI -RADS category. BI-RADS category 2. Electronically Signed: Cole Coronado MD at 10:03 EDT Tel [phone], Service support [phone], 12/17/14 1003 D ate cc: Helen Barnes [...] at 14:51 EDT Tel , Service support [phone], CC: Helen Barnes DO Cfo: Signed 03-Dec-2014 Operative Report Result: Comments: See Note; NOTES: [facility] Medical Records Department [address] [place] [address] Operative Report MR#: [id number] Acct: [id number] Name: YAHAIRA BRYANT Rep #: [id number] : 1950 64 From: Aliza Santana MD PCP: Helen Barnes DO Status: [facility] DATE OF SERVICE: 11/26/2014 DATE OF [...] time. Aliza Santana MD T: NTS JOB: [id number] 12/03/14 1321 <Electronically signed by An jamison Santana MD> Date Aliza Santana MD Cosigner Signature (If Indicated): Date CC: Aleyda Santana MD; Helen Barnes DO Date Dictated: 11/29/14918 Date Transcribed: 11/29/14918 Cfo: Signed 26-Nov-2014 Discharge Instruction Result: Comments: See Note; NOTES: [facility] Medical Records Department [address] [place] [address] Instructions for Home/Discharge Instructions 11/26/14 1200 MR#: [id number] ct: [id number] Name: YAHAIRA BRYANT Rep #: [id number] : 1950 64 From: Aliza Santana MD PCP: Helen Barnes DO Status: REG [facility] Discharge Diet: No Restrictions Discharge Activity: Return [...] Report Result: Comments: See Note; NOTES: [facility] Medical Records Department [address] [facility] [place] [address] Operative Report 11/26/14 1159 MR#: [id number] Acct: [id number] Name: YAHAIRA DEJESUS Rep #: [id number] : 1950 64 From: Aliza Santana MD PCP: Helen Barnes DO Status: REG [facility] Y Location: [place] [address] Operative Report (Blank) Date of Procedure: 11/26/14 [...] MD; Helen Barnes DO Signed 05-Nov-2014 Spirometry (11532) Comments: good effort aand curve mild obstruction Result: 06-Jun-2014 Transvaginal Non- Result: Comments: See Note; NOTES: [facility] Imaging Services [address] [place] [address] Ultrasound Report MR#: [id number] Acct: [id number] Name: YAHAIRA BRYANT Rep #: [id number] : 1950 F 63 From: Telly Cruz DO PCP: Helen Barnes DO Status: REG CLI Study: Transvaginal Non- Date of Exam: 06/06/14 Exam# [id number] Ordering Dr: Izzy Becerra STUDY: ULTRASOUND TRANSVAGINAL [...] DO at 13:34 EST , Service support [phone], CC: Helen Barnes DO; Izzy Becerra MD Cfo: Signed 06-Jun-2014 Pelvic (Non ) Result: Comments: See Note; NOTES: [facility] Imaging Services [address] [place] [address] Ultrasound Report MR#: [id number] Acct: [id number] Name: YAHAIRA BRYANT Rep #: [id number] : 1950 F 63 From: Telly Cruz DO PCP: Helen Barnes DO Status: REG CLI Study: Pelvic (Non ) Date of Exam: 06/06/14 Exam# [id number] Ordering Dr: Izzy Becerra MD STUDY: ULTRASOUND [...] DO at 13:34 EST , Service support [phone], CC: Helen Barnes DO; Izzy Becerra MD Cfo: Signed 11-Oct-2013 Bilat Scrn Digital & CAD Result: Comments: See Note; NOTES: [facility] Imaging Services [address] [place] [address] Breast Imaging Report MR#: [id number] Acct: [id number] Name: YAHAIRA BRYANT Rep #: [id number] : 1950 F 63 From: Bradly Lr MD PCP: Helen Barnes DO Status: REG CLI Exam# [id number] Ordering Dr: Helen Barnes DO MAMMOGRAPHY - [...] at 10:37 EDT , Servic e support [phone], CC: Helen Barnes DO Cfo: Signed Family History Unknown Family Member Name [...] Value Details :54 CBC W/Diff, Automated Comments: [facility] [address] [place], [place], [id number] Absolute Lymph 1.55 {X10_3/ul} (Normal) Range: 0.83-4.51 [...] 4.2-5.4 WBC 8.5 K/mm3 (Normal) Range: 4.4-11.0 29-Rdk-54647:54 Prothrombin Time w/INR Comments: [facility] [address] [facility] [address] [place], [place], [address] INR 2.2 (Normal) PROTIME 24.5 s (Abnormal) Range: 11.7-14.9 97-Bzo-569666:33 Prothrombin Time w/INR Comments: [facility] [address] [place], [place], [address] INR 2.9 (Normal) PROTIME 30.5 s (Abnormal) Range: 11.7-14.9 31-Awc-902333:34 Prothrombin Time w/INR Comments: [facility] [address] [place], [place], [phone](417) INR 2.7 (Normal) PROTIME 29.2 s (Abnormal) Range: 11.7-14.9 :41 Prothrombin Time w/INR Comments: [facility] [address] [place], [address] INR 3.0 (Normal) PROTIME 31.4 s (Abnormal) Range: 11.7-14.9 6-Bjv-821194:17 ANTINUCLEAR ANTIBODIES DIRECT Comments: [facility] (refer to report for specific site)refer to report for address and phone number YURIY-DIRECT Negative (Normal) Comments: Performed at: [facility] [employer] [id number] Director: Jairo Sears PhD, Phone: [phone] :17 Protein Electro.Ur-Random Comments: [facility] (refer to report for specific site)refer to report for address and phone number NOTE Comment (Normal) Comments: Protein electrophoresis scan will follow via computer,mail, or vault person delivery.Performed at: [facility] [place] [id number] Director: Jairo Sears PhD, Phone: [phone] M-SPIKE,U % (Normal) Comments: NOT BSERVED GAMMA GLOB,U 15.5 % (Normal) BETA GLOB,U 33.2 % (Normal) AFQDR-5-FDLG,U 9.5 % (Normal) OZLNX-5-DBNF,U 2.3 % (Normal) ALBUMIN,UR 39.4 % (Normal) PROTEIN,UR 8.3 mg/dL (Normal) :17 Protein Electroph, S Comments: [facility] (refer to report for specific site)refer to report for address and phone number NOTE: Comment (Normal) Comments: The SPE pattern appears essentially unremarkable. Evidenceof monoclonal protein is not apparent.Performed at: [facility] Center[address] [place] [id number] Director: Jairo Sears PhD, Phone: [phone] INTERPRETATION Comment (Normal) Comments: Protein electrophoresis scan will follow via computer,mail, or vault person delivery. A/G RATIO 1.6 (Normal) Range: 0.7-1.7 [...] Range: 6.0-8.5 :18 Prothrombin Time w/INR Comments: [facility] [address] [place], [place], [phone] INR 2.7 (Normal) PROTIME 28.9 s (Abnormal) Range: 11.7-14.9 :58 Bilirubin, Direct Comments: [facility] [address] [place], [place], [address] D BILI 0.18 mg/dL (Normal) Range: 0.00-0.30 :58 CBC W/Diff, Automated Comments: [facility] [address] [place], [place], [address] Absolute Lymph 1.49 {X10_3/ul} (Normal) Range: 0.83-4.51 [...] 4.2-5.4 WBC 3.3 K/mm3 (Abnormal) Range: 4.4-11.0 31-Vqz-68210:58 Total Bilirubin Comments: [facility] [address] [place], [place], [address] T BILI 0.80 mg/dL (Normal) Range: 0.20-1.00 4-Rhj-931349:14 Prothrombin Time w/INR Comments: [facility] [address] [place], [place], [address] INR 2.6 (Normal) PROTIME 27.6 s (Abnormal) Range: 11.7-14.9 66-Lcl-870092:01 CBC W/Diff, Automated Comments: [facility] [address] [place], [place], [address] Absolute Lymph 1.26 {X10_3/ul} (Normal) Range: 0.83-4.51 [...] 4.2-5.4 WBC 3.3 K/mm3 (Abnormal) Range: 4.4-11.0 46-Hin-023006:01 Comprehensive Metabolic Profil Comments: [facility] [address] [place], [place], [address] GAP 9 (Normal) Range: 5-15 CO2 28.0 [...] Comments: Please note revised GLUCOSE reference range iznojxvtg09/02/2018. 65-Yku-332639:15 Prothrombin Time w/INR Comments: [facility] [address] [place], [address] INR 3.0 (Normal) PROTIME 31.3 s (Abnormal) Range: 11.7-14.9 :26 Prothrombin Time w/INR Comments: [facility] [address] [place], [address] INR 2.8 (Normal) PROTIME 29.3 s (Abnormal) Range: 11.7-14.9 23-Hsj-959905:50 Prothrombin Time w/INR Comments: [facility] [address] [place], [address] INR 2.7 (Normal) PROTIME 28.7 s (Abnormal) Range: 11.7-14.9 :35 Prothrombin Time w/INR Comments: [facility] [address] [place], [address] INR 2.9 (Normal) PROTIME 30.2 s (Abnormal) Range: 11.7-14.9 :44 Prothrombin Time w/INR Comments: [facility] [address] [place], [address] INR 2.9 (Normal) PROTIME 30.1 s (Abnormal) Range: 11.7-14.9 :55 Prothrombin Time w/INR Comments: [facility] [address] [place], [address] INR 2.8 (Normal) PROTIME 29.4 s (Abnormal) Range: 11.7-14.9 :10 Prothrombin Time w/INR Comments: [facility] [address] [place], [address] INR 2.4 (Normal) PROTIME 26.2 s (Abnormal) Range: 11.7-14.9 :09 Prothrombin Time w/INR Comments: [place] [address] [place], [address] INR 1.1 (Normal) PROTIME 14.0 s (Normal) Range: 11.7-14.9 :29 Prothrombin Time w/INR Comments: RESULT(S) PREVIOUSLY REPORTED ON MANUAL REQUISITION DURINGDOWNTIME.[facility] [address] [place], [address] INR 1.3 (Normal) PROTIME 16.4 s (Abnormal) Range: 11.7-14.9 :30 Prothrombin Time w/INR Comments: [place] [address] [place], [address] INR 2.0 (Normal) PROTIME 22.9 s (Abnormal) Range: 11.7-14.9 :01 Prothrombin Time w/INR Comments: [facility] [address] [place], [address] INR 1.5 (Normal) PROTIME 18.0 s (Abnormal) Range: 11.7-14.9 :46 Prothrombin Time w/INR Comments: [place] [address] [place], [address] INR 1.9 (Normal) PROTIME 22.2 s (Abnormal) Range: 11.7-14.9 14-Mhh-743709:25 Prothrombin Time w/INR Comments: [facility] [address] [place], [place], [phone] INR 1.9 (Normal) PROTIME 22.0 s (Abnormal) Range: 11.7-14.9 :59 Prothrombin Time w/INR Comments: [facility] [address] [place], [address] INR 2.0 (Normal) PROTIME 22.8 s (Abnormal) Range: 11.7-14.9 :58 Prothrombin Time w/INR Comments: [facility] [address] [place], [address] INR 1.8 (Normal) PROTIME 20.7 s (Abnormal) Range: 11.7-14.9 65-Kll-969300:31 Prothrombin Time w/INR Comments: [facility] [address] [place], [place], [phone]31) INR 1.7 (Normal) PROTIME 19.9 s (Abnormal) Range: 11.7-14.9 73-Sjy-002549:20 Prothrombin Time w/INR Comments: [facility] [address] [place], [address] INR 2.6 (Normal) PROTIME 27.9 s (Abnormal) Range: 11.7-14.9 :39 Prothrombin Time w/INR Comments: [address] [place], [place], [phone] INR 2.9 (Normal) PROTIME 30.5 s (Abnormal) Range: 11.7-14.9 65-Xne-029919:03 Rapid Flu (37467 x 2) Influenza A Ag neg (Normal) 25-Zly-503659:00 Prothrombin Time w/INR Comments: [facility] [address] [place], [phone] ; See pt message INR 3.7 (Abnormal) Comments: CRITICAL VALUE VERIFIED. CALLED TO KOLTON 05/31/17 1130 Nii BarajasRESULTS READ BACK BY SAME. PROTIME 35.0 s (Abnormal) Range: 11.7-14.9 :21 Prothrombin Time w/INR Comments: [facility] [address] [place], [address] INR 4.7 (Abnormal) Comments: CRITICAL VALUE VERIFIED. CALLED TO GEOVANNI AT [facility]05/24/17 0956 Violeta Aide.RESULTS READ BACK BY DAVID . PROTIME 42.4 s (Abnormal) Range: 11.7-14.9 18-Pxt-983619:27 Prothrombin Time w/INR Comments: [facility] [address] [place], [address] INR 1.9 (Normal) PROTIME 20.9 s (Abnormal) Range: 11.7-14.9 :42 Prothrombin Time w/INR Comments: [facility] [address] [place], [address] INR 4.3 (Abnormal) Comments: CRITICAL VALUE VERIFIED. CALLED TO 05/10/17 0830 Josue Velazquez.RESULTS READ BACK BY . PROTIME 39.8 s (Abnormal) Range: 11.7-14.9 :18 Prothrombin Time w/INR Comments: [facility] [address] [place], [address] INR 2.4 (Normal) PROTIME 24.8 s (Abnormal) Range: 11.7-14.9 :18 Prothrombin Time w/INR Comments: [facility] [address] [place], [address] INR 2.4 (Normal) PROTIME 25.2 s (Abnormal) Range: 11.7-14.9 01-Exd-354257:00 Prothrombin Time w/INR Comments: [facility] [address] [place], [address] INR 2.5 (Normal) PROTIME 25.8 s (Abnormal) Range: 11.7-14.9 :32 Prothrombin Time w/INR Comments: [facility] [address] [place], [address] INR 2.1 (Normal) PROTIME 22.7 s (Abnormal) Range: 11.7-14.9 :23 Prothrombin Time w/INR Comments: [facility] [address] [place], [address] INR 2.3 (Normal) PROTIME 24.6 s (Abnormal) Range: 11.7-14.9 :14 Prothrombin Time w/INR Comments: [facility] [address] [place], [address] INR 2.0 (Normal) PROTIME 21.9 s (Abnormal) Range: 11.7-14.9 :18 Prothrombin Time w/INR Comments: [facility] [address] [place], [address] INR 2.5 (Normal) PROTIME 25.6 s (Abnormal) Range: 11.7-14.9 :39 Prothrombin Time w/INR Comments: [facility] [address] [place], [address] INR 2.1 (Normal) PROTIME 22.7 s (Abnormal) Range: 11.7-14.9 :40 Prothrombin Time w/INR Comments: [facility] [address] [place], [address] INR 2.6 (Normal) PROTIME 26.8 s (Abnormal) Range: 11.7-14.9 :40 Prothrombin Time w/INR Comments: [facility] [address] [place], [address] INR 2.2 (Normal) PROTIME 23.8 s (Abnormal) Range: 11.7-14.9 2-Yqm-023809:21 Prothrombin Time w/INR Comments: [facility] [address] [place], [address] INR 1.8 (Normal) PROTIME 20.1 s (Abnormal) Range: 11.7-14.9 :30 Prothrombin Time w/INR Comments: [facility] [address] [place], [address] INR 3.0 (Normal) PROTIME 30.2 s (Abnormal) Range: 11.7-14.9 :45 Prothrombin Time w/INR Comments: [facility] [address] [place], [address] INR 2.9 (Normal) PROTIME 29.1 s (Abnormal) Range: 11.7-14.9 :52 Prothrombin Time w/INR Comments: [facility] [address] [place], [address] INR 1.4 (Normal) PROTIME 17.0 s (Abnormal) Range: 11.7-14.9 :27 Prothrombin Time w/INR Comments: [facility] [address] [place], [address] INR 2.0 (Normal) PROTIME 21.7 s (Abnormal) Range: 11.7-14.9 :21 Prothrombin Time w/INR Comments: [facility] [address] [place], [address] INR 2.3 (Normal) PROTIME 24.1 s (Abnormal) Range: 11.7-14.9 :43 Prothrombin Time w/INR Comments: [facility] [address] [place], [address] INR 2.9 (Normal) PROTIME 29.1 s (Abnormal) Range: 11.7-14.9 :47 Prothrombin Time w/INR Comments: [facility] [address] [place], [address] INR 2.3 (Normal) PROTIME 24.0 s (Abnormal) Range: 11.7-14.9 :25 CBC W/Diff, Automated Comments: [facility] [address] [place], [address] ; see other message Absolute [...] Range: 4.4-11.0 :25 Comprehensive Metabolic Profil Comments: [facility] [address] [place], [place], [address] GAP 3 (Abnormal) Range: 5-15 CO2 28.0 [...] Range: 70-110 :25 Prothrombin Time w/INR Comments: [facility] [address] [place], [address] INR 3.5 (Abnormal) Comments: CRITICAL VALUE VERIFIED. CALLED TO PATRICE Longoria07/07/16 [facility] Radha Calderon.RESULTS READ BACK BY SAME . PROTIME 33.9 s (Abnormal) Range: 11.7-14.9 :25 Thyroid Stim Hormone (TSH) Comments: [facility] [address] [place], [address] TSH 3.25 {uIU/mL} (Normal) Range: 0.358-3.74 :47 Prothrombin Time w/INR Comments: [facility] [address] [place], [address] INR 2.6 (Normal) Comments: ADDENDA: handled by Dr. Phillips PROTIME 27.5 s (Abnormal) Range: 11.7-14.9 :32 Prothrombin Time w/INR Comments: [facility] [address] [place], [address] INR 2.3 (Normal) PROTIME 25.5 s (Abnormal) Range: 11.7-14.9 :15 Prothrombin Time w/INR Comments: [facility] [address] [place], [address] INR 2.6 (Normal) PROTIME 27.7 s (Abnormal) Range: 11.7-14.9 :29 Prothrombin Time w/INR Comments: [facility] [address] [place], [address] INR 1.3 (Normal) PROTIME 16.7 s (Abnormal) Range: 11.7-14.9 :19 Prothrombin Time w/INR Comments: [facility] [address] [place], [address] INR 2.1 (Normal) PROTIME 23.3 s (Abnormal) Range: 11.7-14.9 :14 Prothrombin Time w/INR Comments: [facility] [address] [place], [address] INR 2.0 (Normal) PROTIME 22.5 s (Abnormal) Range: 11.7-14.9 :21 Prothrombin Time w/INR Comments: [facility] [address] [place], [address] INR 2.7 (Normal) PROTIME 28.5 s (Abnormal) Range: 11.7-14.9 :30 Prothrombin Time w/INR Comments: [facility] [address] [place], [address] INR 2.4 (Normal) PROTIME 25.9 s (Abnormal) Range: 11.7-14.9 :41 Prothrombin Time w/INR Comments: [place] [address] [place], [address] INR 2.5 (Normal) PROTIME 26.9 s (Abnormal) Range: 11.7-14.9 :09 Prothrombin Time w/INR Comments: [place] [address] [place], [address] INR 3.4 (Normal) PROTIME 34.4 s (Abnormal) Range: 11.7-14.9 :11 Prothrombin Time w/INR Comments: [facility] [place] [address] [place], [address] INR 2.5 (Normal) PROTIME 26.6 s (Abnormal) Range: 11.7-14.9 :33 Prothrombin Time w/INR Comments: [facility] [place] [address] [place], [address] INR 1.5 (Normal) PROTIME 18.1 s (Abnormal) Range: 11.7-14.9 :12 Prothrombin Time w/INR Comments: [facility] [place] [address] [place], [address] INR 1.1 (Normal) PROTIME 14.4 s (Normal) Range: 11.7-14.9 :51 Prothrombin Time w/INR Comments: [facility] [place] [address] [place], [address] INR 3.6 (Abnormal) Comments: CRITICAL VALUE REPEATED AND VERIFIED. CALLED TO Maycol DAVISON02/25/15 1001 Elsie Longoria.RESULTS READ BACK BY MARGUERITE . PROTIME 35.3 s (Abnormal) Range: 11.7-14.9 :23 Prothrombin Time w/INR Comments: [place] [address] [place], [address] INR 3.3 (Normal) PROTIME 33.3 s (Abnormal) Range: 11.7-14.9 :13 Prothrombin Time w/INR Comments: [facility] [address] [place], [address] INR 2.4 (Normal) PROTIME 26.5 s (Abnormal) Range: 11.7-14.9 :32 Prothrombin Time w/INR Comments: [address] [place], [address] INR 1.4 (Normal) PROTIME 17.8 s (Abnormal) Range: 11.7-14.9 :09 Prothrombin Time w/INR Comments: [address] [place], [address] INR 1.2 (Normal) PROTIME 15.9 s (Abnormal) Range: 11.7-14.9 :12 Prothrombin Time w/INR Comments: [address] [place], [address] INR 2.4 (Normal) PROTIME 26.4 s (Abnormal) Range: 11.7-14.9 :20 Prothrombin Time w/INR Comments: [address] [place], [address] INR 2.2 (Normal) PROTIME 24.5 s (Abnormal) Range: 11.7-14.9 :11 Prothrombin Time w/INR Comments: Test performed at:[place] [address] [facility] [address] INR 2.2 (Normal) PROTIME 24.1 s (Abnormal) Range: 11.7-14.9 :29 Prothrombin Time w/INR Comments: Test performed at:[facility] [address] [place] [address] INR 3.7 (Abnormal) Comments: CRITICAL VALUE REPEATED AND VERIFIED. CALLED TO KIKE WOMACK12/21/14 Frida Kumar.RESULTS READ BACK BY SAME . PROTIME 36.5 s (Abnormal) Range: 11.7-14.9 :25 Prothrombin Time w/INR Comments: Test performed at:[facility] [address] [place] [address] INR 2.5 (Normal) PROTIME 27.1 s (Abnormal) Range: 11.7-14.9 :23 Miscellaneous Lab Procedure Comments: Comments: [id number] PTH PLUS CALCIUM LAV AND RED RFTest(s) Ordered: [id number] PTH PLUS CALCIUM LAV AND RED RFTest performed at:[facility] [address] [place] [address] [facility] Comments: TEST RESULT LIMITSCa+PTH Intact Calcium, [...] - 65 < 8.6 TESTING PERFORMED AT [facility]. ORIGINAL REPORT ON FILE IN LAB CONTAINS AD DITIONAL TEST SITE INFORMATION. :23 Prothrombin Time w/INR Comments: Test performed at:[facility] [address] [place] [id number] INR 4.0 (Abnormal) Comments: CRITICAL VALUE REPEATED AND VERIFIED. CALLED TO SZGYLI24/11/15 0933 Fletcher Foote.RESULTS READ BACK BY SAME . PROTIME 38.3 s (Abnormal) Range: 11.7-14.9 :23 Vitamin D 1,25-Dihydroxy Comments: Test performed at:[facility] [address] [place] [address] VITD 1,25 09035 55.5 pg/mL (Normal) Range: 19.9-79.3 Comments: Performed at: [address] [id number] Director: Juan Ontiveros MD, Phone: [phone] :23 Vitamin D,25 Hydroxy Comments: Test performed at:[facility] [address] [place] [address] Vitamin D 25-OH 70.3 ng/mL (Normal) Comments: Vitamin D 25(OH) Status Range Deficiency <20 ng/mL (50nmol/L) Insuffciency 20 - 30 ng/mL (50 - 75 nmol/L) Sufficiency 30 - 100 ng/mL (75 - 250 nmol/L) Toxicity >100 ng/mL (>250 nmol/L) :04 Prothrombin Time w/INR Comments: Test performed at:[facility] [address] [facility] [address] INR 2.1 (Normal) PROTIME 23.5 s (Abnormal) Range: 11.7-14.9 :12 Prothrombin Time w/INR Comments: Test performed at:[facility] [address] [place] [address] INR 1.6 (Normal) PROTIME 18.9 s (Abnormal) Range: 11.7-14.9 :10 Prothrombin Time w/INR Comments: Test performed at:[facility] [address] [place], [place] [id number] INR 1.1 (Normal) PROTIME 14.1 s (Normal) Range: 11.7-14.9 23-Dle-[id number]: ENDOMETRIAL BX/CURETTINGS See Note (Normal) Comments: Test performed at:[facility] [address] [place] [address] 49 Comments: Patient: YAHAIRA BRYANT : 1950 (64/F) Acct Num: [id number] Phys: Aliza Santana MD Unit Num: [id number] Loc: [facility] Specimen: [id number] Received: 11/26/14 - 1217 Spec Type: EN [...] cassette. / NICOLÁS:papito 11/26/14 TC: 5 CPT: 08035 HEADER OPERATION: Hysteroscopy, diagnostic, D AND C PRE-OP DIAGNOSIS: Postmenopausal bleeding TISSUE SUBMITTED: Endometrial curettings MICROSCOPIC DESCRIPTION Slides are reviewed. MICROSCOPIC DIAGNOSIS Endometrial curettings: Scant strips of benign endometrial epithelium and superficial fragment of benign endometrial tissue, consistent with atrophic endometri um. Fragments of benign endocervical epithelium. SJ:papito 11/27/14 Signed Jeffy Suazo 11/27/14 <signature on file> 45-Yuc-236750:39 INR Fingerstick Comments: Test performed at:[facility] [address] [facility] [address] INR ISTAT 1.10 (Normal) Comments: Critical Value > 3.5; ADDENDA: this is for pre-op, will resume tomorrow and recheck it in 1 week. 85-Sxx-732467:39 Prothrombin Time Fingerstick Comments: Test performed at:[facility] [address] [place] [address] PROTIME ISTAT 13.2 {SEC} (Normal) Range: 11.9-14.4 Comments: Reference Range 11.9 - 14.4 81-Rbx-812773:41 Partial Thromboplast Time Comments: Test performed at:[facility] [address] [place] [address] PTT 40.9 s (Abnormal) Range: 24.1-36.2 14-Unv-606429:41 Prothrombin Time w/INR Comments: Test performed at:[facility] [address] [place] [address] INR 2.6 (Normal) PROTIME 27.4 s (Abnormal) Range: 11.7-14.9 81-Xar-333772:41 Type AND Screen Comments: Surgery Date: 11/26/14Hx of Preganancy in last 3 Months NoEver experience any problems with transfusion(s)? NHx of Transfusion in last 3 Months NReason for Type AND Screen/Red Cells: SURGERYSURGI ADELSO PROCEDURE: .Test performed at:[facility] [address] [place] [address] Antibody Screen NEGATIVE (Normal) BLOOD TYPE GEL A POSITIVE (Normal) :09 CBC W/Diff, Automated Comments: Test performed at:[facility] [address] [place] [address] Absolute Lymph 2.07 {X10_3/ul} (Normal) [...] 4.2-5.4 WBC 3.9 K/mm3 (Abnormal) Range: 4.4-11.0 27-Oms-78265:09 Comprehensive Metabolic Profil Comments: Test performed at:[facility] [address] [place], [place] [address] GAP 6 (Normal) Range: 5-15 CO2 29.0 [...] Comments: Please note revised CREATININE reference range ivhqdflwo11/22/2015. BUN 19 mg/dL (Abnormal) Range: 7-18 GLU 75 mg/dL (Normal) Range: 70-110 :09 Prothrombin Time w/INR Comments: Test performed at:[facility] [address] [place] [address] INR 2.4 (Normal) PROTIME 25.8 s (Abnormal) Range: 11.7-14.9 :13 Prothrombin Time w/INR Comments: Test performed at:[facility] [address] [place] [address] INR 1.8 (Normal) PROTIME 21.2 s (Abnormal) Range: 11.7-14.9 :06 Prothrombin Time w/INR Comments: Test performed at:[facility] [address] [place] [address] INR 2.2 (Normal) PROTIME 24.4 s (Abnormal) Range: 11.7-14.9 :50 Prothrombin Time w/INR Comments: Test performed at:[facility] [address] [place] [address] INR 1.7 (Normal) PROTIME 20.3 s (Abnormal) Range: 11.7-14.9 09-Pgl-250418:16 Estrogen, Total, Serum Comments: Comments: TSHHas Patient had Radioactive Injection for X-ray?: NTest performed at:[facility] [address] [place] [address] ESTROGEN 4549 54 pg/mL (Normal) Comments: Prepubertal <40 Female Cycle: 1-10 Days 61 - 394 11-20 Days 122 - 437 21-30 Days 156 - 350 Post-Menopausal <40 HMG Treatment for Ovulation Induction: 400 - 800Performed at: [facility] [id number] Director: Juan Ontiveros MD, Phone: [phone] 07-Ueo-130929:16 Free T3 Comments: Comments: TSHTest performed at:[facility] [address] [place] [address] FREE T3 2.6 pg/mL (Normal) Range: 2.18-3.98 37-Mje-069351:16 Hemoglobin A1c Comments: Test performed at:[facility] [address] [facility] [address] HGB A1C 5.0 % (Normal) Range: 4.2-6.3 21-Nmv-888868:16 Progesterone Level Comments: Test performed at:[facility] [address] [place] [address] Progesterone 0.48 ng/mL (Normal) Comments: Progesterone Reference Table: UNITS Female: Follicular 0.15 - 1.40 ng/mL Luteal 3.34 - 25.56 ng/mL Mid-luteal 4.44 - 28.03 ng/mL Postmenopausal 0.0 - 0.73 ng/mL : 1st Trimester 11.22 - 90.00 ng /mL 2nd Trimester 25.55 - 89.40 ng/mL 3rd Trimester 48.40 -422.50 ng/mL 26-Fom-390563:16 T4 Free Direct Comments: Comments: TSHTest performed at:[facility] [address]xf[address] [facility] [place] [address] T4 FREE DIRECT 1.16 ng/dL (Normal) Range: 0.76-1.46 70-Tju-691079:16 Testosterone, Serum Total Comments: Test performed at:[facility] X[address] [facility] [place] [address] ; ordered by Dr. Santana Testosterone 35 ng/dL (Normal) Range: 14-76 16-Rlx-418836:16 Thyroid Stim Hormone (TSH) Comments: Comments: TSHTest performed at:[facility] Sp[address] [facility] [place] [address] TSH 1.53 {uIU/mL} (Normal) Range: 0.358-3.74 :11 Prothrombin Time w/INR Comments: Test performed at:[facility] [address] [place] [address] INR 1.8 (Normal) PROTIME 20.9 s (Abnormal) Range: 11.7-14.9 :27 Prothrombin Time w/INR Comments: Test performed at:[facility] [address] [place] [address] INR 2.2 (Normal) PROTIME 24.8 s (Abnormal) Range: 11.7-14.9 :08 Prothrombin Time w/INR Comments: Test performed at:[facility] [address] [place] [address] INR 4.8 (Abnormal) Comments: CRITICAL VALUE REPEATED AND VERIFIED. CALLED TO RADHA WOMACK10/01/14 0855 Nii Lind.RESULTS READ BACK BY DAVID. PROTIME 44.0 s (Abnormal) Range: 11.7-14.9 :14 Prothrombin Time w/INR Comments: Test performed at:[facility] [address] [place] [address] INR 2.6 (Normal) PROTIME 27.9 s (Abnormal) Range: 11.7-14.9 :16 Prothrombin Time w/INR Comments: Test performed at:[facility] [address] [place] [address] INR 5.0 (Abnormal) Comments: CRITICAL VALUE REPEATED AND VERIFIED. CALLED TO Tami DAVISNO09/21/14 0809 [address]oria.RESULTS READ BACK BY CONNER . PROTIME 45.5 s (Abnormal) Range: 11.7-14.9 :10 Prothrombin Time w/INR Comments: Test performed at:[facility] [address] [place] [address] INR 3.2 (Normal) PROTIME 32.8 s (Abnormal) Range: 11.7-14.9 :24 Miscellaneous Lab Procedure Comments: Comments: [id number] HHV-6 IGM,SST,REFRIGERATETest(s) Ordered: [id number] HHV-6 IGM,SST,REFRIGERATETest performed at:[facility] [address] [place] [address] [facility] Comments: TEST RESULT UNITS REFERENCE INTERVALHuman Herpes Virus Type 6 IgM <1:10 Neg:<1:10Results for this test are for research purposes only by LAB (Normal) theassay's program instructor. The performance characteristics ofthis product have not been established. Results should notbe used as a diagnostic procedure without confirmation ofthe diagnosis by another med TEST ically established diagnosticproduct or procedure. TESTING PERFORMED AT [facility]. ORIGINAL REPORT ON FILE IN LAB CONTAINS ADDITIONAL TEST SITE IN FORMATION. :18 ANTINUCLEAR ANTIBODIES DIRECT Comments: Test performed at:[facility] [address] [place] [address] YURIY-DIRECT Negative (Normal) Comments: Performed at: [address] [id number] Director: Narendra Covarrubias PhD, Phone: [phone] :18 CMV Acute Antibody IgM Comments: Test performed at:[place] [address] [facility] [place] [address] CMVIgM AB < 30.0 AU/mL (Normal) Range: 0.0-29.9 Comments: Negative <30.0 Equivocal 30.0 - 34.9 Positive >34.9A positive result is generally indicative of acuteinfection, react ivation or persistent IgM production.Performed at: [address] [id number] Director: Narendra Covarrubias PhD, Phone: [phone] at: [address] [id number] Director: Juan Ontiveros MD, Phone: [phone] at: [address] [place] [address] LUY[address]18 [place], [place] [id number] Director: Bill Tao PhD, Phone: [phone] :18 CMV Antibody IgG Comments: Test performed at:[facility] [address] [place] [address] CMV AB IgG > 10.00 U/mL (Abnormal) Range: 0.00-0.59 Comments: Negative <0.60 Equivocal 0.60 - 0.69 Positive >0.69 :18 EBV Acute Prof IgG / IgM Comments: Test performed at:[facility] Mxfclj[address] [facility] [place] [address] INTERPRETATION Comment (Normal) Comments: EBV Interpretation ChartInterpretation EBV-IgM EA(D)-IgG VCA-IgG EBNA-IgGEBV Seronegative - - - -Early Phase + - - -Acute Primary + +or- + -InfectionConvalescence/Past - +or- + +InfectionReactivated +or- + + +Infection + Antibody Present - Antibody Absent EB-NAg [id number] 71.5 U/mL (Abnormal) Range: 0.0-17.9 Comments: Negative <18.0 Equivocal 18.0 - 21.9 Positive >21.9 EB-VCA [id number] > 600.0 U/mL (Abnormal) Range: 0.0-17.9 Comments: Negative <18.0 Equivocal 18.0 - 21.9 Positive >21.9 EB-EA IgG [id number] 21.1 U/mL (Abnormal) Range: 0.0-8.9 Comments: Hepatitis A, Hepatitis C and HIV antibodies may cross-reactwith this assay. Negative < 9.0 Equivocal 9.0 - 10.9 Positive >10.9 EB-VCA [id number] < 36.0 U/mL (Normal) Range: 0.0-35.9 Comments: Negative <36.0 Equivocal 36.0 - 43.9 Positive >43.9 :18 Ferritin Comments: Test performed at:[facility] [address] [place] [address] FERRITIN 28 ng/mL (Normal) Range: 8-252 :18 HLA B27 Negative (Normal) Comments: Test performed at:[facility] V[address]jbmeqfls1591 [facility] [place] [address] Comments: HLA-B*27 NegativeHLA Lab CLIA ID Number [id number] test was performed using PCR (Polymerase ChainReaction)/SSOP (Sequence Specific Oligonucleotide Probes)technique. SBT (Sequence Based Typing) and/ or SSP(Sequence Specific Primers) may be used as supplementalmethods when necessary. Please contact [facility] CustomerService at if you have any questions. Director of HLA Laboratory Dr Bill Tao, PhD :18 Homocysteine Comments: Test performed at:[facility] [address] [place] [address] HOMOCYSTEINE 6.7 umol/L (Normal) Range: 3.2-10.7 :18 IgG Subclasses Comments: Test performed at:[facility] [address] [place] [address] IgG, SUBCLASS 4 1 mg/dL (Normal) Range: 1-291 Comments: Results verified by repeat testing IgG, SUBCLASS 3 52 mg/dL (Normal) Range: 41-129 IgG, SUBCLASS 2 145 mg/dL (Normal) Range: 117-747 IgG, SUBCLASS 1 264 mg/dL (Abnormal) Range: 422-1292 IGG, QUANT 520 mg/dL (Abnormal) Range: 700-1600 :18 Miscellaneous Lab Procedure Comments: Comments: [id number] HHV-6 IGG,SST,REFRIGERATETest(s) Ordered: [id number] HHV-6 IGG,SST,REFRIGERATEList Test(s) Ordered by Physician: IGA SUBCLASSES, #[id number], SERUM,RM TEMP, 2 MLTest performed at:[facility] [address] [place] [address] [facility] Comments: TEST RESULT UNITS REFERENCE INTERVALHHV 6 IgG Antibodies 2.42 High index Negative <0.76 Equivocal 0.76 - 0.99 LAB (Normal) Positive >0.99Results for this test are for research purposesonly by the assay's program instructor. The performancecharacteristics of this product have not beenestablishe TEST d. Results should not be used as adiagnostic procedure without confirmation of thediagnosis by another medically established diagnosticproduct or procedure. TESTING PERFORMED AT [facility]. ORIGINAL REPORT ON FILE IN LAB CONTAINS ADDITIONAL TEST SITE INFORMATION. :18 Miscellaneous Lab Procedure Comments: Comments: [id number] HLA-DR4,SST,REFRIGERATETest(s) Ordered: [id number] HLA-DR4,SST,REFRIGERATETest performed at:[facility] [place] [address] [facility] Comments: TEST RESULT UNITS REFERENCE INTERVALHLA DRB1 (IR) DRB1 DRB1*07:NIRAV DRB1 DRB1*- Code Translation: NIRAV 07:01/07:09/07:10N/07:11/07:14/07:22 LAB (Normal) /07:24 /07:25/07:26N/07:27/07:28/07:29HLA allele interpretation for all loci based on IMGT/HLAdatabase version 3.15ROGELIO Lab CLIA ID Number [id number] TEST TESTING PERFORMED AT [facility]. ORIGINAL REPORT ON FILE IN LAB CONTAINS ADDITIONAL TEST SITE INFORMATION. HLA Methodology:HLA result s were obtained using sequence based typing (SBT),sequence specific oligonucleotide probes (SSOP), and/orsequence specific primers (SSP) as needed to obtain therequired resolution. Please contact [facility] [phone] if you have any questions.Director of HLA LaboratoryDr Bill Tao, PhD :18 Miscellaneous Lab Procedure 2 Comments: Comments: [id number] HHV- 6 IGG,SST,REFRIGERATETest(s) Ordered: [id number] HHV-6 IGG,SST,REFRIGERATEList Test(s) Ordered by Physician: IGA SUBCLASSES, #[id number], SERUM,RM TEMP, 2 MLTest performed at:[facility] [address] [place] [address] [facility] Comments: TEST RESULT UNITS REFERENCE INTERVALIgA, Subclasses (1-2) Immunoglobulin A, Qn, Serum 161 mg/dL 91 - 414 IgA, Subclass 1 132.0 mg/dL LAB (Normal) 73.2 - 301.2 IgA, Subclass 2 6.2 Low mg/dL 13.4 - 97.9 TESTING PERFORMED AT [facility]. ORIGINAL REPORT ON FILE IN LAB CONTAINS MANFRED TEST TIONAL TEST SITE INFORMATION. 2 :18 Prothrombin Time w/INR Comments: Test performed at:[place] [address] [place], [place] [id number] INR 1.9 (Normal) PROTIME 22.3 s (Abnormal) Range: 11.7-14.9 :18 Vitamin B12 664 pg/mL (Normal) Comments: Test performed at:[facility] [address] [place] [address] Range: 211-911 :18 Vitamin D,25 Hydroxy Comments: Test performed at:[facility] [address] [place] [address] Vitamin D 25-OH 58.8 ng/mL (Normal) Comments: Vitamin D 25(OH) Status Range Deficiency <20 ng/mL (50nmol/L) Insuffciency 20 - 30 ng/mL (50 - 75 nmol/L) Sufficiency 30 - 100 ng/mL (75 - 250 nmol/L) Toxicity >100 ng/mL (>250 nmol/L) :13 CBC W/Diff, Automated Comments: Test performed at:[facility] [address] [place] [address] Absolute Lymph 2.08 {X10_3/ul} (Normal) Range: [...] :13 Comprehensive Metabolic Profil Comments: Test performed at:[facility] Mhvayxacic0356 [facility] [address] GAP 7 (Normal) Range: 5-15 [...] 70-110 :13 Lipid Profile Comments: Test performed at:[facility] [address] [facility] [address] [place], [place] [phone] VLDL 9 mg/dL (Normal) Range: 5-40 LDL [...] :13 Prothrombin Time w/INR Comments: Test performed at:[facility] [address] [place] [address] INR 1.5 (Normal) PROTIME 18.4 s (Abnormal) Range: 11.7-14.9 :17 INR Fingerstick Comments: Test performed at:[facility] [address] [place] [address] INR ISTAT 1.50 (Normal) Comments: Critical Value > 3.5 :17 Prothrombin Time Fingerstick Comments: Test performed at:[facility] [address] [place] [address] PROTIME ISTAT 17.6 {SEC} (Abnormal) Range: 11.9-14.4 Comments: Reference Range 11.9 - 14.4 :09 INR Fingerstick Comments: Test performed at:[facility] [address] [place] [address] INR ISTAT 1.40 (Normal) Comments: Critical Value > 3.5 :09 Prothrombin Time Fingerstick Comments: Test performed at:[facility] [address] [place] [address]( PROTIME ISTAT 17.1 {SEC} (Abnormal) Range: 11.9-14.4 Comments: Reference Range 11.9 - 14.4 :09 Prothrombin Time w/INR Comments: Test performed at:[facility] [address] [place] [address] INR 1.1 (Normal) PROTIME 14.6 s (Normal) Range: 11.7-14.9 :11 INR Fingerstick Comments: Test performed at:[facility] [address] [place] [address] INR ISTAT 1.20 (Normal) Comments: Critical Value > 3.5 :11 Prothrombin Time Fingerstick Comments: Test performed at:[facility] [address] [place] [address] PROTIME ISTAT 13.9 {SEC} (Normal) Range: 11.9-14.4 Comments: Reference Range 11.9 - 14.4 :06 INR Fingerstick Comments: Test performed at:[facility] [address] [place] [address] INR ISTAT 1.10 (Normal) Comments: Critical Value > 3.5 :06 Prothrombin Time Fingerstick Comments: Test performed at:[facility] [address] [place] [address] PROTIME ISTAT 13.6 {SEC} (Normal) Range: 11.9-14.4 Comments: Reference Range 11.9 - 14.4 :28 INR Fingerstick Comments: Test performed at:[facility] [address] [place] [address] INR ISTAT 2.20 (Normal) Comments: Critical Value > 3.5 :28 Prothrombin Time Fingerstick Comments: Test performed at:[facility] [address] [place] [address] PROTIME ISTAT 25.0 {SEC} (Abnormal) Range: 11.9-14.4 Comments: Reference Range 11.9 - 14.4 :19 INR Fingerstick Comments: Test performed at:[facility] [address] [place] [address] INR ISTAT 2.70 (Normal) Comments: Critical Value > 3.5 :19 Prothrombin Time Fingerstick Comments: Test performed at:[facility] [address] [place] [address] PROTIME ISTAT 30.6 {SEC} (Abnormal) Range: 11.9-14.4 Comments: Reference Range 11.9 - 14.4 :09 Prothrombin Time w/INR Comments: Test performed at:[facility] [address] [place] [address] INR 3.2 (Normal) PROTIME 32.6 s (Abnormal) Range: 11.7-14.9 :22 Prothrombin Time w/INR Comments: Test performed at:[facility] [address] [place] [address] INR 2.6 (Normal) PROTIME 27.8 s (Abnormal) Range: 11.7-14.9 :22 Prothrombin Time w/INR Comments: Test performed at:[facility] [address] [place] [address] INR 3.0 (Normal) PROTIME 30.9 s (Abnormal) Range: 11.7-14.9 :12 Prothrombin Time w/INR Comments: Test performed at:[facility] [address] [place] [address] INR 3.4 (Normal) PROTIME 33.7 s (Abnormal) Range: 11.7-14.9 :10 Prothrombin Time w/INR Comments: Test performed at:[facility] [address] [place] [address] INR 3.7 (Abnormal) PROTIME 36.4 s (Abnormal) Range: 11.7-14.9 14-Mds-244966:20 Prothrombin Time w/INR Comments: Test performed at:[facility] [address] [place] [address] INR 3.0 (Normal) PROTIME 31.0 s (Abnormal) Range: 11.7-14.9 :10 Prothrombin Time w/INR Comments: Test performed at:[facility] [address] [place] [address] INR 3.0 (Normal) PROTIME 30.7 s (Abnormal) Range: 11.7-14.9 :04 Prothrombin Time w/INR Comments: Test performed at:[facility] [address] [place] [address] INR 1.7 (Normal) PROTIME 19.7 s (Abnormal) Range: 11.7-14.9 :17 Prothrombin Time w/INR Comments: Test performed at:[facility] [address] [place] [address] INR 1.8 (Normal) PROTIME 21.1 s (Abnormal) [...] 4.2-5.4 WBC 4.7 K/mm3 (Normal) Range: 4.4-11.0 8-Sep-03072:55 CMP Comments: DR BARNES ORDERED PT ONLY [...] Comments: Please note revised PROTIME reference range yaycwzmjb84/14/15. :05 PT INR 3.0 (Normal) PTP 30.6 s (Abnormal) Range: 11.7-14.9 Comments: Please note revised PROTIME reference range dgeageygc99/14/15. :07 PT INR 5.6 (Abnormal) PTP 50.1 s (Abnormal) Range: 11.7-14.9 Comments: Please note revised PROTIME reference range vujhxkiqy06/14/15. :03 PT INR 2.5 (Normal) PTP 27.0 s (Abnormal) Range: 11.7-14.9 Comments: Please note revised PROTIME reference range cspssvsal16/14/15. :03 PT INR 2.0 (Normal) PTP 23.0 s (Abnormal) Range: 11.7-14.9 Comments: Please note revised PROTIME reference range aurenfwgl53/14/15. :06 PT INR 2.1 (Normal) PTP 21.9 [...] CHOL 287 mg/dL (Abnormal) Comments: <200 mg/dL Aswizjtca416-239 mg/dL Borderline>240 mg/dL High Risk TRIG 78 [...] CRITICAL VALUE REPEATED AND VERIFIED. CALLED TO KNDVUJF42/14/14 Jorge Jeovanny Serrano.RESULTS READ BACK BY OLIVIER [...] CHOL 227 mg/dL (Abnormal) Comments: <200 mg/dL Bcglgygnf032-734 mg/dL Borderline>240 mg/dL High Risk HDL 81 [...] CHOL 229 mg/dL (Abnormal) Comments: <200 mg/dL Ngezvqlij573-289 mg/dL Borderline>240 mg/dL High Risk :16 PT [...] Rodriguez M.D.September 21, 2012 at 11:00:07 AM [id number] Signed RU/RU If you are the referring physician and would like to consult with theradiologist who provided this interpretation, please contact Man Styles at [phone]. If this radiologist is unavailable, ender directed to another radiologist to as sist. If you are a patient with a question regarding this report, pleasecontactyour referring physician directly. Professional Interpretation Provided By: [facility], Phone ,Fax These documents contain legally protected [...] on 09/21/12 1106 Sign by: Laith Rodriguez 9-Edp-141667:40 CUUR URC See Note (Normal) Comments: This is an amended result. A prior result that was reported as final has been changed.09/07/12 1448 by NSTANSLOSPreviously reported as: FINAL COLONY COUNT <1000 ORGANISM 1: MIXED GRAM POSITIVE ORGANISMS 3-Dpc-334228:40 LYMEWB uVAPSCMT84K Absent (Normal) tLYMWBINTM Negative (Normal) Comments: Note: [...] are those recommended byCDC/ASTPHLD. p23=Osp C , d39=qhumijhne.Note:Sera from individuals with the following may cross reactin the Lyme Western Blot assays: other spirochetal diseases(periodontal disease, leptospirosis, relapsing fever, yaws,and pin ta); connective autoimmune (Rheumatoid Arthritis andSystemic Lupus Erythematosus and also individuals withAntinuclear Antibody); other infections (Angel MountainSpotted Fever; Desirae-Camargo Virus, and Cy tomegalovirus)..Performed at: [facility] [address] [id number] Director: Juan Ontiveros MD, Phone: [phone] eEVDXJXL52T Absent (Normal) gMJIKCNZ68G Absent (Normal) bODIGXEW78Y Absent (Normal) fKBPBOGF77C Absent (Normal) tLYMWBINTG Negative (Normal) Comments: Positive: 5 of the followingBorrelia- specific bands:18,23,28,30,39,41,45,58,66, and 93.Negative: No bands or bandingpatterns which do notmeet positive criteria. dAVCVQER18R Absent (Normal) cEEWXLJC94K Absent (Normal) sEGSEXTJ40T Absent (Normal) vPUSKZMY05K Present (Abnormal) wRYHLERG32H Absent (Normal) zTTVTMGX05W Absent (Normal) aHADDGJY13J Absent (Normal) kWJVHLUL14K Absent (Normal) :03 PT INR 2.9 (Normal) PTP 28.1 s (Abnormal) Range: 11.9-14.4 10-Sih-212957:12 Microscopic Examination Comments: PATIENT NOT FASTINGPERFORMED BY: [facility] [id number] Bacteria Few (Normal) Mucus Threads Present (Normal) Epithelial Cells (non renal) 0-10 {/hpf} (Normal) Range: 0 - 10 RBC None seen {/hpf} (Normal) Range: 0 - 3 WBC None seen {/hpf} (Normal) Range: 0 - 5 86-Cda-066908:12 Lyme Disease Antibody W/ Comments: PATIENT NOT FASTINGPERFORMED BY: [employer] Mvdnaq4871 [facility] [id number] Reflex ([id number]) Lyme Ab Interp.,EIA Negative (Normal) Lyme IgG/IgM Ab <0.91 {index} (Normal) Range: 0.00-0.90 Comments: Negative <0.91 Equivocal 0.91 - 1.09 Positive >1.09 Note: The [facility] curren tly advises that Western blot testing be performed following all equivocal or positive EIA results. Final diagnosis should include appropriate clinical findi ngs and a positive EIA which is also positive by Western blot. 21-Gee-207806:12 SED RATE ERYTHROCYTE ([id number]) Comments: PATIENT NOT FASTINGPERFORMED BY: [facility] HoldingsOverlook [facility] CenterEiuypa6399 [facility] [id number] Sedimentation Rate-Westergren 2 mm/h (Normal) Range: 0-40 01-Cko-147812:12 C-REACTIVE PROTEIN ([id number]) Comments: PATIENT NOT FASTINGPERFORMED BY: [facility] Iboulo79[address] [facility] [id number] C-Reactive Protein, Quant 0.7 mg/L (Normal) Range: 0.0-4.9 42-Dss-792216:12 URINALYSIS, W/ MICRO ([id number]) Comments: PATIENT NOT FASTINGPERFORMED BY: [facility] Sgwttl5490 [facility] [id number] Microscopic Examination See below: (Normal) Nitrite, Urine Negative (Normal) Urobilinogen,Semi-Qn 0.2 mg/dL (Normal) Range: 0.0-1.9 Bilirubin Negative (Normal) Occult Blood Negative (Normal) Ketones 3+ (Abnormal) Glucose Negative (Normal) Protein 1+ (Abnormal) WBC Esterase Negative (Normal) Appearance Clear (Normal) Urine-Color Yellow (Normal) pH 6.0 (Normal) Range: 5.0-7.5 Specific [place] 1.025 (Normal) Range: 1.005-1.030 19-Sng-504206:12 TSH ([id number]) Comments: PATIENT NOT FASTINGPERFORMED BY: [facility] [id number] TSH 2.400 {uIU/mL} (Normal) Range: 0.450-4.500 85-Qed-693269:12 METABOLIC PANEL, COMPREHENSIVE Comments: PATIENT NOT FASTINGPERFORMED BY: [facility] [id number] ([id number]) ALT (SGPT) 19 [iU]/L (Normal) Range: 0-32 [...] Glucose, Serum 91 mg/dL (Normal) Range: 65-99 16-Wqb-756085:12 CBC WITH MANUAL DIFF Comments: PATIENT NOT FASTINGPERFORMED BY: [facility]CoOver[facility] CenterRmchfx1263 [facility] [id number] Information: [id number] ([id number]) Immature Grans (Abs) 0.0 {x10E3/uL} (Normal) Range: [...] TSH 2.44 {uIU/mL} (Normal) Range: 0.358-3.74 :12 [facility] 0 SEEN {/hpf} (Normal) [...] D deficiency has been defined by the [place] ofMedicine and an Endocrine Society practice guideline as alevel of serum 25-OH vitamin D less than 20 ng/mL (1,2).The Endocrine Society went on to further define vitamin Dinsufficiency as a level between 21 and 29 ng/mL (2).1. IOM ([place] of Medicine). 2010. Dietary reference intakes for calcium and D. [place]: The National Academies Press.2. Ana FRANK, Heriberto GORDON, Jayla BECKFORD, et al. Evaluation, treatment, and prevention of vitamin D deficiency: an Endocrine Society clinical practice guideline. JCEM. 2010; 96(7): 1911-30.Performed at: [address] [id number] Director: Narendra Covarrubias PhD, Phone: [phone] Plan of Care Name Dates Details Instructions [...] Planned Observations CBC, Platelets & Auto Diff ([id number])Indication: Leukopenia On: : Request CBC, Platelets & Auto Diff ([id number])Indication: Leukopenia On: : Request CBC, Platelets & Auto Diff ([id number])Indication: Leukopenia On: 13-Mar-2042 Request CBC, Platelets & Auto Diff ([id number])Indication: Leukopenia On: : Request CBC, Platelets & Auto Diff ([id number])Indication: Leukopenia On: : Request CBC, Platelets & Auto Diff ([id number])Indication: Leukopenia On: Request CBC, Platelets & Auto Diff ([id number])Indication: Leukopenia On: 18-Mar-2041 Request CBC, Platelets & Auto Diff ([id number])Indication: Leukopenia On: : Request CBC, Platelets & Auto Diff ([id number])Indication: Leukopenia On: : Request CBC, Platelets & Auto Diff ([id number])Indication: Leukopenia On: : Request CBC, Platelets & Auto Diff ([id number])Indication: Leukopenia On: 23-Mar-2040 Request CBC, Platelets & Auto Diff ([id number])Indication: Leukopenia On: : Request CBC, Platelets & Auto Diff ([id number])Indication: Leukopenia On: : Request CBC, Platelets & Auto Diff ([id number])Indication: Leukopenia On: : Request CBC, Platelets & Auto Diff ([id number])Indication: Leukopenia On: 29-Mar-2039 Request CBC, Platelets & Auto Diff ([id number])Indication: Leukopenia On: :00 Request CBC, Platelets & Auto Diff ([id number])Indication: Leukopenia On: :00 Request CBC, Platelets & Auto Diff ([id number])Indication: Leukopenia On: : Request CBC, Platelets & Auto Diff ([id number])Indication: Leukopenia On: 03-Apr-2038 Request CBC, Platelets & Auto Diff ([id number])Indication: Leukopenia On: :00 Request CBC, Platelets & Auto Diff ([id number])Indication: Leukopenia On: :00 Request CBC, Platelets & Auto Diff ([id number])Indication: Leukopenia On: :00 Request CBC, Platelets & Auto Diff ([id number])Indication: Leukopenia On: 08-Apr-2037 Request CBC, Platelets & Auto Diff ([id number])Indication: Leukopenia On: :00 Request CBC, Platelets & Auto Diff ([id number])Indication: Leukopenia On: :00 Request CBC, Platelets & Auto Diff ([id number])Indication: Leukopenia On: :00 Request CBC, Platelets & Auto Diff ([id number])Indication: Leukopenia On: 13-Apr-2036 Request CBC, Platelets & Auto Diff ([id number])Indication: Leukopenia On: :00 Request CBC, Platelets & Auto Diff ([id number])Indication: Leukopenia On: :00 Request CBC, Platelets & Auto Diff ([id number])Indication: Leukopenia On: : Request CBC, Platelets & Auto Diff ([id number])Indication: Leukopenia On: 19-Apr-2035 Request CBC, Platelets & Auto Diff ([id number])Indication: Leukopenia On: : Request CBC, Platelets & Auto Diff ([id number])Indication: Leukopenia On: : Request CBC, Platelets & Auto Diff ([id number])Indication: Leukopenia On: : Request CBC, Platelets & Auto Diff ([id number])Indication: Leukopenia On: 24-Apr-2034 Request CBC, Platelets & Auto Diff ([id number])Indication: Leukopenia On: : Request CBC, Platelets & Auto Diff ([id number])Indication: Leukopenia On: : Request CBC, Platelets & Auto Diff ([id number])Indication: Leukopenia On: :00 Request CBC, Platelets & Auto Diff ([id number])Indication: Leukopenia On: 29-Apr-2033 Request CBC, Platelets & Auto Diff ([id number])Indication: Leukopenia On: :00 Request CBC, Platelets & Auto Diff ([id number])Indication: Leukopenia On: :00 Request CBC, Platelets & Auto Diff ([id number])Indication: Leukopenia On: :00 Request CBC, Platelets & Auto Diff ([id number])Indication: Leukopenia On: 04-May-2032 Request CBC, Platelets & Auto Diff ([id number])Indication: Leukopenia On: :00 Request CBC, Platelets & Auto Diff ([id number])Indication: Leukopenia On: :00 Request CBC, Platelets & Auto Diff ([id number])Indication: Leukopenia On: : Request CBC, Platelets & Auto Diff ([id number])Indication: Leukopenia On: 10-May-2031 Request CBC, Platelets & Auto Diff ([id number])Indication: Leukopenia On: 09-Feb-2031 Request CBC, Platelets & Auto Diff ([id number])Indication: Leukopenia On: :00 Request CBC, Platelets & Auto Diff ([id number])Indication: Leukopenia On: :00 Request CBC, Platelets & Auto Diff ([id number])Indication: Leukopenia On: 15-May-2030 Request CBC, Platelets & Auto Diff ([id number])Indication: Leukopenia On: 14-Feb-2030 Request CBC, Platelets & Auto Diff ([id number])Indication: Leukopenia On: :00 Request CBC, Platelets & Auto Diff ([id number])Indication: Leukopenia On: : Request CBC, Platelets & Auto Diff ([id number])Indication: Leukopenia On: 20-May-2029 Request CBC, Platelets & Auto Diff ([id number])Indication: Leukopenia On: 19-Feb-2029 Request CBC, Platelets & Auto Diff ([id number])Indication: Leukopenia On: :00 Request CBC, Platelets & Auto Diff ([id number])Indication: Leukopenia On: :00 Request CBC, Platelets & Auto Diff ([id number])Indication: Leukopenia On: 25-May-2028 Request CBC, Platelets & Auto Diff ([id number])Indication: Leukopenia On: 25-Feb-2028 Request CBC, Platelets & Auto Diff ([id number])Indication: Leukopenia On: :00 Request CBC, Platelets & Auto Diff ([id number])Indication: Leukopenia On: :00 Request CBC, Platelets & Auto Diff ([id number])Indication: Leukopenia On: 31-May-2027 Request CBC, Platelets & Auto Diff ([id number])Indication: Leukopenia On: 02-Mar-2027 Request CBC, Platelets & Auto Diff ([id number])Indication: Leukopenia On: :00 Request CBC, Platelets & Auto Diff ([id number])Indication: Leukopenia On: :00 Request CBC, Platelets & Auto Diff ([id number])Indication: Leukopenia On: 05-Jun-2026 Request CBC, Platelets & Auto Diff ([id number])Indication: Leukopenia On: 07-Mar-2026 Request CBC, Platelets & Auto Diff ([id number])Indication: Leukopenia On: :00 Request CBC, Platelets & Auto Diff ([id number])Indication: Leukopenia On: :00 Request CBC, Platelets & Auto Diff ([id number])Indication: Leukopenia On: 10-Jun-2025 Request CBC, Platelets & Auto Diff ([id number])Indication: Leukopenia On: 12-Mar-2025 Request CBC, Platelets & Auto Diff ([id number])Indication: Leukopenia On: :00 Request CBC, Platelets & Auto Diff ([id number])Indication: Leukopenia On: : Request CBC, Platelets & Auto Diff ([id number])Indication: Leukopenia On: : Request CBC, Platelets & Auto Diff ([id number])Indication: Leukopenia On: 17-Mar-2024 Request CBC, Platelets & Auto Diff ([id number])Indication: Leukopenia On: : Request CBC, Platelets & Auto Diff ([id number])Indication: Leukopenia On: :00 Request CBC, Platelets & Auto Diff ([id number])Indication: Leukopenia On: :00 Request CBC, Platelets & Auto Diff ([id number])Indication: Leukopenia On: 23-Mar-2023 Request CBC, Platelets & Auto Diff ([id number])Indication: Leukopenia On: :00 Request CBC, Platelets & Auto Diff ([id number])Indication: Leukopenia On: :00 Request CBC, Platelets & Auto Diff ([id number])Indication: Leukopenia On: :00 Request CBC, Platelets & Auto Diff ([id number])Indication: Leukopenia On: 28-Mar-2022 Request CBC, Platelets & Auto Diff ([id number])Indication: Leukopenia On: :00 Request CBC, Platelets & Auto Diff ([id number])Indication: Leukopenia On: :00 Request CBC, Platelets & Auto Diff ([id number])Indication: Leukopenia On: :00 Request CBC, Platelets & Auto Diff ([id number])Indication: Leukopenia On: 02-Apr-2021 Request CBC, Platelets & Auto Diff ([id number])Indication: Leukopenia On: :00 Request CBC, Platelets & Auto Diff ([id number])Indication: Leukopenia On: :00 Request CBC, Platelets & Auto Diff ([id number])Indication: Leukopenia On: :00 Request CBC, Platelets & Auto Diff ([id number])Indication: Leukopenia On: 07-Apr-2020 Request CBC, Platelets & Auto Diff ([id number])Indication: Leukopenia On: 08-Jan-2020 Request CBC, Platelets & Auto Diff ([id number])Indication: Leukopenia On: 10-Oct-2019 Request CBC, Platelets & Auto Diff ([id number])Indication: Leukopenia On: 12-Jul-2019 Request CBC, Platelets & Auto Diff ([id number])Indication: Leukopenia On: 13-Apr-2019 Request PT (PROTHROMBIN TIME) ([id number]) : standing orderIndication: History of DVT (deep vein thrombosis) On: 02-Mar-2019 Request Comments: standing order PT (PROTHROMBIN TIME) ([id number]) : standing orderIndication: History of DVT (deep vein thrombosis) On: 01-Mar-2019 Request Comments: standing order PT (PROTHROMBIN TIME) ([id number]) : standing orderIndication: History of DVT (deep vein thrombosis) On: 28-Feb-2019 Request Comments: standing order PT (PROTHROMBIN TIME) ([id number]) : standing orderIndication: History of DVT (deep vein thrombosis) On: 27-Feb-2019 Request Comments: standing order PT (PROTHROMBIN TIME) ([id number]) : standing orderIndication: History of DVT (deep vein thrombosis) On: 26-Feb-2019 Request Comments: standing order PT (PROTHROMBIN TIME) ([id number])Indication: History of DVT (deep vein thrombosis) On: 25-Feb-2019 Request PT (PROTHROMBIN TIME) ([id number]) : standing orderIndication: History of DVT (deep vein thrombosis) On: 25-Feb-2019 Request Comments: standing order PT (PROTHROMBIN TIME) ([id number]) : standing orderIndication: History of DVT (deep vein thrombosis) On: 25-Feb-2019 Request Comments: standing order PT (PROTHROMBIN TIME) ([id number]) : standing orderIndication: History of DVT (deep vein thrombosis) On: 24-Feb-2019 Request Comments: standing order PT (PROTHROMBIN TIME) ([id number]) : standing orderIndication: History of DVT (deep vein thrombosis) On: 23-Feb-2019 Request Comments: standing order PT (PROTHROMBIN TIME) ([id number]) : standing orderIndication: History of DVT (deep vein thrombosis) On: 22-Feb-2019 Request Comments: standing order PT (PROTHROMBIN TIME) ([id number]) : standing orderIndication: History of DVT (deep vein thrombosis) On: 21-Feb-2019 Request Comments: standing order PT (PROTHROMBIN TIME) ([id number]) : standing orderIndication: History of DVT (deep vein thrombosis) On: 20-Feb-2019 Request Comments: standing order PT (PROTHROMBIN TIME) ([id number]) : standing orderIndication: History of DVT (deep vein thrombosis) On: 19-Feb-2019 Request Comments: standing order PT (PROTHROMBIN TIME) ([id number]) : standing orderIndication: History of DVT (deep vein thrombosis) On: 18-Feb-2019 Request Comments: standing order PT (PROTHROMBIN TIME) ([id number]) : standing orderIndication: History of DVT (deep vein thrombosis) On: 17-Feb-2019 Request Comments: standing order PT (PROTHROMBIN TIME) ([id number]) : standing orderIndication: History of DVT (deep vein thrombosis) On: 16-Feb-2019 Request Comments: standing order PT (PROTHROMBIN TIME) ([id number]) : standing orderIndication: History of DVT (deep vein thrombosis) On: 15-Feb-2019 Request Comments: standing order PT (PROTHROMBIN TIME) ([id number]) : standing orderIndication: History of DVT (deep vein thrombosis) On: 14-Feb-2019 Request Comments: standing order PT (PROTHROMBIN TIME) ([id number]) : standing orderIndication: History of DVT (deep vein thrombosis) On: 13-Feb-2019 Request Comments: standing order PT (PROTHROMBIN TIME) ([id number]) : standing orderIndication: History of DVT (deep vein thrombosis) On: 12-Feb-2019 Request Comments: standing order PT (PROTHROMBIN TIME) ([id number]) : standing orderIndication: History of DVT (deep vein thrombosis) On: 11-Feb-2019 Request Comments: standing order PT (PROTHROMBIN TIME) ([id number]) : standing orderIndication: History of DVT (deep vein thrombosis) On: 10-Feb-2019 Request Comments: standing order PT (PROTHROMBIN TIME) ([id number]) : standing orderIndication: History of DVT (deep vein thrombosis) On: 09-Feb-2019 Request Comments: standing order PT (PROTHROMBIN TIME) ([id number]) : standing orderIndication: History of DVT (deep vein thrombosis) On: 08-Feb-2019 Request Comments: standing order PT (PROTHROMBIN TIME) ([id number]) : standing orderIndication: History of DVT (deep vein thrombosis) On: 07-Feb-2019 Request Comments: standing order PT (PROTHROMBIN TIME) ([id number]) : standing orderIndication: History of DVT (deep vein thrombosis) On: 06-Feb-2019 Request Comments: standing order PT (PROTHROMBIN TIME) ([id number]) : standing orderIndication: History of DVT (deep vein thrombosis) On: 05-Feb-2019 Request Comments: standing order PT (PROTHROMBIN TIME) ([id number]) : standing orderIndication: History of DVT (deep vein thrombosis) On: 04-Feb-2019 Request Comments: standing order PT (PROTHROMBIN TIME) ([id number]) : standing orderIndication: History of DVT (deep vein thrombosis) On: 03-Feb-2019 Request Comments: standing order PT (PROTHROMBIN TIME) ([id number]) : standing orderIndication: History of DVT (deep vein thrombosis) On: 02-Feb-2019 Request Comments: standing order PT (PROTHROMBIN TIME) ([id number]) : standing orderIndication: History of DVT (deep vein thrombosis) On: 01-Feb-2019 Request Comments: standing order PT (PROTHROMBIN TIME) ([id number]) : standing orderIndication: History of DVT (deep vein thrombosis) On: 31-Jan-2019 Request Comments: standing order PT (PROTHROMBIN TIME) ([id number]) : standing orderIndication: History of DVT (deep vein thrombosis) On: 30-Jan-2019 Request Comments: standing order PT (PROTHROMBIN TIME) ([id number]) : standing orderIndication: History of DVT (deep vein thrombosis) On: 29-Jan-2019 Request Comments: standing order PT (Prothrobim Time) ([id number])Indication: History of DVT (deep vein thrombosis) On: 28-Jan-2019 Request Comments: INR PT (PROTHROMBIN TIME) ([id number]) : standing orderIndication: History of DVT (deep vein thrombosis) On: 28-Jan-2019 Request Comments: standing order PT (PROTHROMBIN TIME) ([id number]) : standing orderIndication: History of DVT (deep vein thrombosis) On: 27-Jan-2019 Request Comments: standing order PT (PROTHROMBIN TIME) ([id number])Indication: History of DVT (deep vein thrombosis) On: 26-Jan-2019 Request PT (PROTHROMBIN TIME) ([id number]) : standing orderIndication: History of DVT (deep vein thrombosis) On: 26-Jan-2019 Request Comments: standing order PT (PROTHROMBIN TIME) ([id number]) : standing orderIndication: History of DVT (deep vein thrombosis) On: 26-Jan-2019 Request Comments: standing order PT (PROTHROMBIN TIME) ([id number]) : standing orderIndication: History of DVT (deep vein thrombosis) On: 25-Jan-2019 Request Comments: standing order PT (PROTHROMBIN TIME) ([id number]) : standing orderIndication: History of DVT (deep vein thrombosis) On: 24-Jan-2019 Request Comments: standing order PT (PROTHROMBIN TIME) ([id number]) : standing orderIndication: History of DVT (deep vein thrombosis) On: 23-Jan-2019 Request Comments: standing order PT (PROTHROMBIN TIME) ([id number]) : standing orderIndication: History of DVT (deep vein thrombosis) On: 22-Jan-2019 Request Comments: standing order PT (PROTHROMBIN TIME) ([id number]) : standing orderIndication: History of DVT (deep vein thrombosis) On: 21-Jan-2019 Request Comments: standing order PT (PROTHROMBIN TIME) ([id number]) : standing orderIndication: History of DVT (deep vein thrombosis) On: 20-Jan-2019 Request Comments: standing order PT (PROTHROMBIN TIME) ([id number]) : standing orderIndication: History of DVT (deep vein thrombosis) On: 19-Jan-2019 Request Comments: standing order PT (PROTHROMBIN TIME) ([id number]) : standing orderIndication: History of DVT (deep vein thrombosis) On: 18-Jan-2019 Request Comments: standing order PT (PROTHROMBIN TIME) ([id number]) : standing orderIndication: History of DVT (deep vein thrombosis) On: 17-Jan-2019 Request Comments: standing order PT (PROTHROMBIN TIME) ([id number]) : standing orderIndication: History of DVT (deep vein thrombosis) On: 16-Jan-2019 Request Comments: standing order PT (PROTHROMBIN TIME) ([id number]) : standing orderIndication: History of DVT (deep vein thrombosis) On: 15-Jan-2019 Request Comments: standing order PT (PROTHROMBIN TIME) ([id number]) : standing orderIndication: History of DVT (deep vein thrombosis) On: 14-Jan-2019 Request Comments: standing order CBC, Platelets & Auto Diff ([id number])Indication: Leukopenia On: 13-Jan-2019 Request PT (PROTHROMBIN TIME) ([id number]) : standing orderIndication: History of DVT (deep vein thrombosis) On: 13-Jan-2019 Request Comments: standing order PT (PROTHROMBIN TIME) ([id number]) : standing orderIndication: History of DVT (deep vein thrombosis) On: 12-Jan-2019 Request Comments: standing order PT (PROTHROMBIN TIME) ([id number]) : standing orderIndication: History of DVT (deep vein thrombosis) On: 11-Jan-2019 Request Comments: standing order PT (PROTHROMBIN TIME) ([id number]) : standing orderIndication: History of DVT (deep vein thrombosis) On: 10-Jan-2019 Request Comments: standing order PT (PROTHROMBIN TIME) ([id number]) : standing orderIndication: History of DVT (deep vein thrombosis) On: 09-Jan-2019 Request Comments: standing order PT (PROTHROMBIN TIME) ([id number]) : standing orderIndication: History of DVT (deep vein thrombosis) On: 08-Jan-2019 Request Comments: standing order PT (PROTHROMBIN TIME) ([id number]) : standing orderIndication: History of DVT (deep vein thrombosis) On: 07-Jan-2019 Request Comments: standing order PT (PROTHROMBIN TIME) ([id number]) : standing orderIndication: History of DVT (deep vein thrombosis) On: 06-Jan-2019 Request Comments: standing order PT (PROTHROMBIN TIME) ([id number]) : standing orderIndication: History of DVT (deep vein thrombosis) On: 05-Jan-2019 Request Comments: standing order PT (PROTHROMBIN TIME) ([id number]) : standing orderIndication: History of DVT (deep vein thrombosis) On: 04-Jan-2019 Request Comments: standing order PT (PROTHROMBIN TIME) ([id number]) : standing orderIndication: History of DVT (deep vein thrombosis) On: 03-Jan-2019 Request Comments: standing order PT (PROTHROMBIN TIME) ([id number]) : standing orderIndication: History of DVT (deep vein thrombosis) On: 02-Jan-2019 Request Comments: standing order PT (PROTHROMBIN TIME) ([id number]) : standing orderIndication: History of DVT (deep vein thrombosis) On: 01-Jan-2019 Request Comments: standing order PT (PROTHROMBIN TIME) ([id number]) : standing orderIndication: History of DVT (deep vein thrombosis) On: 31-Dec-2018 Request Comments: standing order PT (PROTHROMBIN TIME) ([id number]) : standing orderIndication: History of DVT (deep vein thrombosis) On: 30-Dec-2018 Request Comments: standing order PT (Prothrobim Time) ([id number])Indication: History of DVT (deep vein thrombosis) On: 29-Dec-2018 Request Comments: INR PT (PROTHROMBIN TIME) ([id number]) : standing orderIndication: History of DVT (deep vein thrombosis) On: 29-Dec-2018 Request Comments: standing order PT (PROTHROMBIN TIME) ([id number]) : standing orderIndication: History of DVT (deep vein thrombosis) On: 28-Dec-2018 Request Comments: standing order PT (PROTHROMBIN TIME) ([id number])Indication: History of DVT (deep vein thrombosis) On: 27-Dec-2018 Request PT (PROTHROMBIN TIME) ([id number]) : standing orderIndication: History of DVT (deep vein thrombosis) On: 27-Dec-2018 Request Comments: standing order PT (PROTHROMBIN TIME) ([id number]) : standing orderIndication: History of DVT (deep vein thrombosis) On: 27-Dec-2018 Request Comments: standing order PT (PROTHROMBIN TIME) ([id number]) : standing orderIndication: History of DVT (deep vein thrombosis) On: 26-Dec-2018 Request Comments: standing order PT (PROTHROMBIN TIME) ([id number]) : standing orderIndication: History of DVT (deep vein thrombosis) On: 25-Dec-2018 Request Comments: standing order PT (PROTHROMBIN TIME) ([id number]) : standing orderIndication: History of DVT (deep vein thrombosis) On: 24-Dec-2018 Request Comments: standing order PT (PROTHROMBIN TIME) ([id number]) : standing orderIndication: History of DVT (deep vein thrombosis) On: 23-Dec-2018 Request Comments: standing order PT (PROTHROMBIN TIME) ([id number]) : standing orderIndication: History of DVT (deep vein thrombosis) On: 22-Dec-2018 Request Comments: standing order PT (PROTHROMBIN TIME) ([id number]) : standing orderIndication: History of DVT (deep vein thrombosis) On: 21-Dec-2018 Request Comments: standing order PT (PROTHROMBIN TIME) ([id number]) : standing orderIndication: History of DVT (deep vein thrombosis) On: 20-Dec-2018 Request Comments: standing order PT (PROTHROMBIN TIME) ([id number]) : standing orderIndication: History of DVT (deep vein thrombosis) On: 19-Dec-2018 Request Comments: standing order PT (PROTHROMBIN TIME) ([id number]) : standing orderIndication: History of DVT (deep vein thrombosis) On: 18-Dec-2018 Request Comments: standing order PT (PROTHROMBIN TIME) ([id number]) : standing orderIndication: History of DVT (deep vein thrombosis) On: 17-Dec-2018 Request Comments: standing order PT (PROTHROMBIN TIME) ([id number]) : standing orderIndication: History of DVT (deep vein thrombosis) On: 16-Dec-2018 Request Comments: standing order PT (PROTHROMBIN TIME) ([id number]) : standing orderIndication: History of DVT (deep vein thrombosis) On: 15-Dec-2018 Request Comments: standing order PT (PROTHROMBIN TIME) ([id number]) : standing orderIndication: History of DVT (deep vein thrombosis) On: 14-Dec-2018 Request Comments: standing order PT (PROTHROMBIN TIME) ([id number]) : standing orderIndication: History of DVT (deep vein thrombosis) On: 13-Dec-2018 Request Comments: standing order PT (PROTHROMBIN TIME) ([id number]) : standing orderIndication: History of DVT (deep vein thrombosis) On: 12-Dec-2018 Request Comments: standing order PT (PROTHROMBIN TIME) ([id number]) : standing orderIndication: History of DVT (deep vein thrombosis) On: 11-Dec-2018 Request Comments: standing order PT (PROTHROMBIN TIME) ([id number]) : standing orderIndication: History of DVT (deep vein thrombosis) On: 10-Dec-2018 Request Comments: standing order PT (PROTHROMBIN TIME) ([id number]) : standing orderIndication: History of DVT (deep vein thrombosis) On: 09-Dec-2018 Request Comments: standing order PT (PROTHROMBIN TIME) ([id number]) : standing orderIndication: History of DVT (deep vein thrombosis) On: 08-Dec-2018 Request Comments: standing order PT (PROTHROMBIN TIME) ([id number]) : standing orderIndication: History of DVT (deep vein thrombosis) On: 07-Dec-2018 Request Comments: standing order PT (PROTHROMBIN TIME) ([id number]) : standing orderIndication: History of DVT (deep vein thrombosis) On: 06-Dec-2018 Request Comments: standing order PT (PROTHROMBIN TIME) ([id number]) : standing orderIndication: History of DVT (deep vein thrombosis) On: 05-Dec-2018 Request Comments: standing order PT (PROTHROMBIN TIME) ([id number]) : standing orderIndication: History of DVT (deep vein thrombosis) On: 04-Dec-2018 Request Comments: standing order PT (PROTHROMBIN TIME) ([id number]) : standing orderIndication: History of DVT (deep vein thrombosis) On: 03-Dec-2018 Request Comments: standing order PT (PROTHROMBIN TIME) ([id number]) : standing orderIndication: History of DVT (deep vein thrombosis) On: 02-Dec-2018 Request Comments: standing order PT (PROTHROMBIN TIME) ([id number]) : standing orderIndication: History of DVT (deep vein thrombosis) On: 01-Dec-2018 Request Comments: standing order PT (PROTHROMBIN TIME) ([id number]) : standing orderIndication: History of DVT (deep vein thrombosis) On: 30-Nov-2018 Request Comments: standing order PT (Prothrobim Time) ([id number])Indication: History of DVT (deep vein thrombosis) On: 29-Nov-2018 Request Comments: INR PT (PROTHROMBIN TIME) ([id number]) : standing orderIndication: History of DVT (deep vein thrombosis) On: 29-Nov-2018 Request Comments: standing order PT (PROTHROMBIN TIME) ([id number]) : standing orderIndication: History of DVT (deep vein thrombosis) On: 28-Nov-2018 Request Comments: standing order PT (PROTHROMBIN TIME) ([id number])Indication: History of DVT (deep vein thrombosis) On: 27-Nov-2018 Request PT (PROTHROMBIN TIME) ([id number]) : standing orderIndication: History of DVT (deep vein thrombosis) On: 27-Nov-2018 Request Comments: standing order PT (PROTHROMBIN TIME) ([id number]) : standing orderIndication: History of DVT (deep vein thrombosis) On: 27-Nov-2018 Request Comments: standing order PT (PROTHROMBIN TIME) ([id number]) : standing orderIndication: History of DVT (deep vein thrombosis) On: 26-Nov-2018 Request Comments: standing order PT (PROTHROMBIN TIME) ([id number]) : standing orderIndication: History of DVT (deep vein thrombosis) On: 25-Nov-2018 Request Comments: standing order PT (PROTHROMBIN TIME) ([id number]) : standing orderIndication: History of DVT (deep vein thrombosis) On: 24-Nov-2018 Request Comments: standing order PT (PROTHROMBIN TIME) ([id number]) : standing orderIndication: History of DVT (deep vein thrombosis) On: 23-Nov-2018 Request Comments: standing order PT (PROTHROMBIN TIME) ([id number]) : standing orderIndication: History of DVT (deep vein thrombosis) On: 22-Nov-2018 Request Comments: standing order PT (PROTHROMBIN TIME) ([id number]) : standing orderIndication: History of DVT (deep vein thrombosis) On: 21-Nov-2018 Request Comments: standing order PT (PROTHROMBIN TIME) ([id number]) : standing orderIndication: History of DVT (deep vein thrombosis) On: 20-Nov-2018 Request Comments: standing order PT (PROTHROMBIN TIME) ([id number]) : standing orderIndication: History of DVT (deep vein thrombosis) On: 19-Nov-2018 Request Comments: standing order PT (PROTHROMBIN TIME) ([id number]) : standing orderIndication: History of DVT (deep vein thrombosis) On: 18-Nov-2018 Request Comments: standing order PT (PROTHROMBIN TIME) ([id number]) : standing orderIndication: History of DVT (deep vein thrombosis) On: 17-Nov-2018 Request Comments: standing order PT (PROTHROMBIN TIME) ([id number]) : standing orderIndication: History of DVT (deep vein thrombosis) On: 16-Nov-2018 Request Comments: standing order PT (PROTHROMBIN TIME) ([id number]) : standing orderIndication: History of DVT (deep vein thrombosis) On: 15-Nov-2018 Request Comments: standing order PT (PROTHROMBIN TIME) ([id number]) : standing orderIndication: History of DVT (deep vein thrombosis) On: 14-Nov-2018 Request Comments: standing order PT (PROTHROMBIN TIME) ([id number]) : standing orderIndication: History of DVT (deep vein thrombosis) On: 13-Nov-2018 Request Comments: standing order PT (PROTHROMBIN TIME) ([id number]) : standing orderIndication: History of DVT (deep vein thrombosis) On: 12-Nov-2018 Request Comments: standing order PT (PROTHROMBIN TIME) ([id number]) : standing orderIndication: History of DVT (deep vein thrombosis) On: 11-Nov-2018 Request Comments: standing order PT (PROTHROMBIN TIME) ([id number]) : standing orderIndication: History of DVT (deep vein thrombosis) On: 10-Nov-2018 Request Comments: standing order PT (PROTHROMBIN TIME) ([id number]) : standing orderIndication: History of DVT (deep vein thrombosis) On: 09-Nov-2018 Request Comments: standing order PT (PROTHROMBIN TIME) ([id number]) : standing orderIndication: History of DVT (deep vein thrombosis) On: 08-Nov-2018 Request Comments: standing order PT (PROTHROMBIN TIME) ([id number]) : standing orderIndication: History of DVT (deep vein thrombosis) On: 07-Nov-2018 Request Comments: standing order PT (PROTHROMBIN TIME) ([id number]) : standing orderIndication: History of DVT (deep vein thrombosis) On: 06-Nov-2018 Request Comments: standing order PT (PROTHROMBIN TIME) ([id number]) : standing orderIndication: History of DVT (deep vein thrombosis) On: 05-Nov-2018 Request Comments: standing order PT (PROTHROMBIN TIME) ([id number]) : standing orderIndication: History of DVT (deep vein thrombosis) On: 04-Nov-2018 Request Comments: standing order PT (PROTHROMBIN TIME) ([id number]) : standing orderIndication: History of DVT (deep vein thrombosis) On: 03-Nov-2018 Request Comments: standing order PT (PROTHROMBIN TIME) ([id number]) : standing orderIndication: History of DVT (deep vein thrombosis) On: 02-Nov-2018 Request Comments: standing order PT (PROTHROMBIN TIME) ([id number]) : standing orderIndication: History of DVT (deep vein thrombosis) On: 01-Nov-2018 Request Comments: standing order PT (PROTHROMBIN TIME) ([id number]) : standing orderIndication: History of DVT (deep vein thrombosis) On: 31-Oct-2018 Request Comments: standing order PT (Prothrobim Time) ([id number])Indication: History of DVT (deep vein thrombosis) On: 30-Oct-2018 Request Comments: INR PT (PROTHROMBIN TIME) ([id number]) : standing orderIndication: History of DVT (deep vein thrombosis) On: 30-Oct-2018 Request Comments: standing order PT (PROTHROMBIN TIME) ([id number]) : standing orderIndication: History of DVT (deep vein thrombosis) On: 29-Oct-2018 Request Comments: standing order PT (PROTHROMBIN TIME) ([id number])Indication: History of DVT (deep vein thrombosis) On: 28-Oct-2018 Request PT (PROTHROMBIN TIME) ([id number]) : standing orderIndication: History of DVT (deep vein thrombosis) On: 28-Oct-2018 Request Comments: standing order PT (PROTHROMBIN TIME) ([id number]) : standing orderIndication: History of DVT (deep vein thrombosis) On: 28-Oct-2018 Request Comments: standing order PT (PROTHROMBIN TIME) ([id number]) : standing orderIndication: History of DVT (deep vein thrombosis) On: 27-Oct-2018 Request Comments: standing order PT (PROTHROMBIN TIME) ([id number]) : standing orderIndication: History of DVT (deep vein thrombosis) On: 26-Oct-2018 Request Comments: standing order PT (PROTHROMBIN TIME) ([id number]) : standing orderIndication: History of DVT (deep vein thrombosis) On: 25-Oct-2018 Request Comments: standing order PT (PROTHROMBIN TIME) ([id number]) : standing orderIndication: History of DVT (deep vein thrombosis) On: 24-Oct-2018 Request Comments: standing order PT (PROTHROMBIN TIME) ([id number]) : standing orderIndication: History of DVT (deep vein thrombosis) On: 23-Oct-2018 Request Comments: standing order PT (PROTHROMBIN TIME) ([id number]) : standing orderIndication: History of DVT (deep vein thrombosis) On: 22-Oct-2018 Request Comments: standing order PT (PROTHROMBIN TIME) ([id number]) : standing orderIndication: History of DVT (deep vein thrombosis) On: 21-Oct-2018 Request Comments: standing order PT (PROTHROMBIN TIME) ([id number]) : standing orderIndication: History of DVT (deep vein thrombosis) On: 20-Oct-2018 Request Comments: standing order PT (PROTHROMBIN TIME) ([id number]) : standing orderIndication: History of DVT (deep vein thrombosis) On: 19-Oct-2018 Request Comments: standing order PT (PROTHROMBIN TIME) ([id number]) : standing orderIndication: History of DVT (deep vein thrombosis) On: 18-Oct-2018 Request Comments: standing order PT (PROTHROMBIN TIME) ([id number]) : standing orderIndication: History of DVT (deep vein thrombosis) On: 17-Oct-2018 Request Comments: standing order PT (PROTHROMBIN TIME) ([id number]) : standing orderIndication: History of DVT (deep vein thrombosis) On: 16-Oct-2018 Request Comments: standing order CBC, Platelets & Auto Diff ([id number])Indication: Leukopenia On: 15-Oct-2018 Request PT (PROTHROMBIN TIME) ([id number]) : standing orderIndication: History of DVT (deep vein thrombosis) On: 15-Oct-2018 Request Comments: standing order PT (PROTHROMBIN TIME) ([id number]) : standing orderIndication: History of DVT (deep vein thrombosis) On: 14-Oct-2018 Request Comments: standing order PT (PROTHROMBIN TIME) ([id number]) : standing orderIndication: History of DVT (deep vein thrombosis) On: 13-Oct-2018 Request Comments: standing order PT (PROTHROMBIN TIME) ([id number]) : standing orderIndication: History of DVT (deep vein thrombosis) On: 12-Oct-2018 Request Comments: standing order PT (PROTHROMBIN TIME) ([id number]) : standing orderIndication: History of DVT (deep vein thrombosis) On: 11-Oct-2018 Request Comments: standing order PT (PROTHROMBIN TIME) ([id number]) : standing orderIndication: History of DVT (deep vein thrombosis) On: 10-Oct-2018 Request Comments: standing order PT (PROTHROMBIN TIME) ([id number]) : standing orderIndication: History of DVT (deep vein thrombosis) On: 09-Oct-2018 Request Comments: standing order PT (PROTHROMBIN TIME) ([id number]) : standing orderIndication: History of DVT (deep vein thrombosis) On: 08-Oct-2018 Request Comments: standing order PT (PROTHROMBIN TIME) ([id number]) : standing orderIndication: History of DVT (deep vein thrombosis) On: 07-Oct-2018 Request Comments: standing order PT (PROTHROMBIN TIME) ([id number]) : standing orderIndication: History of DVT (deep vein thrombosis) On: 06-Oct-2018 Request Comments: standing order PT (PROTHROMBIN TIME) ([id number]) : standing orderIndication: History of DVT (deep vein thrombosis) On: 05-Oct-2018 Request Comments: standing order PT (PROTHROMBIN TIME) ([id number]) : standing orderIndication: History of DVT (deep vein thrombosis) On: 04-Oct-2018 Request Comments: standing order PT (PROTHROMBIN TIME) ([id number]) : standing orderIndication: History of DVT (deep vein thrombosis) On: 03-Oct-2018 Request Comments: standing order PT (PROTHROMBIN TIME) ([id number]) : standing orderIndication: History of DVT (deep vein thrombosis) On: 02-Oct-2018 Request Comments: standing order PT (PROTHROMBIN TIME) ([id number]) : standing orderIndication: History of DVT (deep vein thrombosis) On: 01-Oct-2018 Request Comments: standing order PT (Prothrobim Time) ([id number])Indication: History of DVT (deep vein thrombosis) On: 30-Sep-2018 Request Comments: INR PT (PROTHROMBIN TIME) ([id number]) : standing orderIndication: History of DVT (deep vein thrombosis) On: 30-Sep-2018 Request Comments: standing order PT (PROTHROMBIN TIME) ([id number]) : standing orderIndication: History of DVT (deep vein thrombosis) On: 29-Sep-2018 Request Comments: standing order PT (PROTHROMBIN TIME) ([id number])Indication: History of DVT (deep vein thrombosis) On: 28-Sep-2018 Request PT (PROTHROMBIN TIME) ([id number]) : standing orderIndication: History of DVT (deep vein thrombosis) On: 28-Sep-2018 Request Comments: standing order PT (PROTHROMBIN TIME) ([id number]) : standing orderIndication: History of DVT (deep vein thrombosis) On: 28-Sep-2018 Request Comments: standing order PT (PROTHROMBIN TIME) ([id number]) : standing orderIndication: History of DVT (deep vein thrombosis) On: 27-Sep-2018 Request Comments: standing order PT (PROTHROMBIN TIME) ([id number]) : standing orderIndication: History of DVT (deep vein thrombosis) On: 26-Sep-2018 Request Comments: standing order PT (PROTHROMBIN TIME) ([id number]) : standing orderIndication: History of DVT (deep vein thrombosis) On: 25-Sep-2018 Request Comments: standing order PT (PROTHROMBIN TIME) ([id number]) : standing orderIndication: History of DVT (deep vein thrombosis) On: 24-Sep-2018 Request Comments: standing order PT (PROTHROMBIN TIME) ([id number]) : standing orderIndication: History of DVT (deep vein thrombosis) On: 23-Sep-2018 Request Comments: standing order PT (PROTHROMBIN TIME) ([id number]) : standing orderIndication: History of DVT (deep vein thrombosis) On: 22-Sep-2018 Request Comments: standing order PT (PROTHROMBIN TIME) ([id number]) : standing orderIndication: History of DVT (deep vein thrombosis) On: 21-Sep-2018 Request Comments: standing order PT (PROTHROMBIN TIME) ([id number]) : standing orderIndication: History of DVT (deep vein thrombosis) On: 20-Sep-2018 Request Comments: standing order PT (PROTHROMBIN TIME) ([id number]) : standing orderIndication: History of DVT (deep vein thrombosis) On: 19-Sep-2018 Request Comments: standing order PT (PROTHROMBIN TIME) ([id number]) : standing orderIndication: History of DVT (deep vein thrombosis) On: 18-Sep-2018 Request Comments: standing order PT (PROTHROMBIN TIME) ([id number]) : standing orderIndication: History of DVT (deep vein thrombosis) On: 17-Sep-2018 Request Comments: standing order PT (PROTHROMBIN TIME) ([id number]) : standing orderIndication: History of DVT (deep vein thrombosis) On: 17-Sep-2018 Request Comments: standing order PT (PROTHROMBIN TIME) ([id number]) : standing orderIndication: History of DVT (deep vein thrombosis) On: 16-Sep-2018 Request Comments: standing order PT (PROTHROMBIN TIME) ([id number]) : standing orderIndication: History of DVT (deep vein thrombosis) On: 16-Sep-2018 Request Comments: standing order PT (PROTHROMBIN TIME) ([id number]) : standing orderIndication: History of DVT (deep vein thrombosis) On: 15-Sep-2018 Request Comments: standing order PT (PROTHROMBIN TIME) ([id number]) : standing orderIndication: History of DVT (deep vein thrombosis) On: 15-Sep-2018 Request Comments: standing order PT (PROTHROMBIN TIME) ([id number]) : standing orderIndication: History of DVT (deep vein thrombosis) On: 14-Sep-2018 Request Comments: standing order PT (PROTHROMBIN TIME) ([id number]) : standing orderIndication: History of DVT (deep vein thrombosis) On: 14-Sep-2018 Request Comments: standing order PT (PROTHROMBIN TIME) ([id number]) : standing orderIndication: History of DVT (deep vein thrombosis) On: 13-Sep-2018 Request Comments: standing order PT (PROTHROMBIN TIME) ([id number]) : standing orderIndication: History of DVT (deep vein thrombosis) On: 13-Sep-2018 Request Comments: standing order PT (PROTHROMBIN TIME) ([id number]) : standing orderIndication: History of DVT (deep vein thrombosis) On: 12-Sep-2018 Request Comments: standing order PT (PROTHROMBIN TIME) ([id number]) : standing orderIndication: History of DVT (deep vein thrombosis) On: 12-Sep-2018 Request Comments: standing order PT (PROTHROMBIN TIME) ([id number]) : standing orderIndication: History of DVT (deep vein thrombosis) On: 11-Sep-2018 Request Comments: standing order PT (PROTHROMBIN TIME) ([id number]) : standing orderIndication: History of DVT (deep vein thrombosis) On: 11-Sep-2018 Request Comments: standing order PT (PROTHROMBIN TIME) ([id number]) : standing orderIndication: History of DVT (deep vein thrombosis) On: 10-Sep-2018 Request Comments: standing order PT (PROTHROMBIN TIME) ([id number]) : standing orderIndication: History of DVT (deep vein thrombosis) On: 10-Sep-2018 Request Comments: standing order PT (PROTHROMBIN TIME) ([id number]) : standing orderIndication: History of DVT (deep vein thrombosis) On: 09-Sep-2018 Request Comments: standing order PT (PROTHROMBIN TIME) ([id number]) : standing orderIndication: History of DVT (deep vein thrombosis) On: 09-Sep-2018 Request Comments: standing order PT (PROTHROMBIN TIME) ([id number]) : standing orderIndication: History of DVT (deep vein thrombosis) On: 08-Sep-2018 Request Comments: standing order PT (PROTHROMBIN TIME) ([id number]) : standing orderIndication: History of DVT (deep vein thrombosis) On: 08-Sep-2018 Request Comments: standing order PT (PROTHROMBIN TIME) ([id number]) : standing orderIndication: History of DVT (deep vein thrombosis) On: 07-Sep-2018 Request Comments: standing order PT (PROTHROMBIN TIME) ([id number]) : standing orderIndication: History of DVT (deep vein thrombosis) On: 07-Sep-2018 Request Comments: standing order PT (PROTHROMBIN TIME) ([id number]) : standing orderIndication: History of DVT (deep vein thrombosis) On: 06-Sep-2018 Request Comments: standing order PT (PROTHROMBIN TIME) ([id number]) : standing orderIndication: History of DVT (deep vein thrombosis) On: 06-Sep-2018 Request Comments: standing order PT (PROTHROMBIN TIME) ([id number]) : standing orderIndication: History of DVT (deep vein thrombosis) On: 05-Sep-2018 Request Comments: standing order PT (PROTHROMBIN TIME) ([id number]) : standing orderIndication: History of DVT (deep vein thrombosis) On: 05-Sep-2018 Request Comments: standing order PT (PROTHROMBIN TIME) ([id number]) : standing orderIndication: History of DVT (deep vein thrombosis) On: 04-Sep-2018 Request Comments: standing order PT (PROTHROMBIN TIME) ([id number]) : standing orderIndication: History of DVT (deep vein thrombosis) On: 04-Sep-2018 Request Comments: standing order PT (PROTHROMBIN TIME) ([id number]) : standing orderIndication: History of DVT (deep vein thrombosis) On: 03-Sep-2018 Request Comments: standing order PT (PROTHROMBIN TIME) ([id number]) : standing orderIndication: History of DVT (deep vein thrombosis) On: 03-Sep-2018 Request Comments: standing order PT (PROTHROMBIN TIME) ([id number]) : standing orderIndication: History of DVT (deep vein thrombosis) On: 02-Sep-2018 Request Comments: standing order PT (PROTHROMBIN TIME) ([id number]) : standing orderIndication: History of DVT (deep vein thrombosis) On: 02-Sep-2018 Request Comments: standing order PT (PROTHROMBIN TIME) ([id number]) : standing orderIndication: History of DVT (deep vein thrombosis) On: 01-Sep-2018 Request Comments: standing order PT (PROTHROMBIN TIME) ([id number]) : standing orderIndication: History of DVT (deep vein thrombosis) On: 01-Sep-2018 Request Comments: standing order PT (Prothrobim Time) ([id number])Indication: History of DVT (deep vein thrombosis) On: 31-Aug-2018 Request Comments: INR PT (PROTHROMBIN TIME) ([id number]) : standing orderIndication: History of DVT (deep vein thrombosis) On: 31-Aug-2018 Request Comments: standing order PT (PROTHROMBIN TIME) ([id number]) : standing orderIndication: History of DVT (deep vein thrombosis) On: 31-Aug-2018 Request Comments: standing order PT (PROTHROMBIN TIME) ([id number]) : standing orderIndication: History of DVT (deep vein thrombosis) On: 30-Aug-2018 Request Comments: standing order PT (PROTHROMBIN TIME) ([id number]) : standing orderIndication: History of DVT (deep vein thrombosis) On: 30-Aug-2018 Request Comments: standing order PT (PROTHROMBIN TIME) ([id number])Indication: History of DVT (deep vein thrombosis) On: 29-Aug-2018 Request PT (PROTHROMBIN TIME) ([id number]) : standing orderIndication: History of DVT (deep vein thrombosis) On: 29-Aug-2018 Request Comments: standing order PT (PROTHROMBIN TIME) ([id number]) : standing orderIndication: History of DVT (deep vein thrombosis) On: 29-Aug-2018 Request Comments: standing order PT (PROTHROMBIN TIME) ([id number]) : standing orderIndication: History of DVT (deep vein thrombosis) On: 29-Aug-2018 Request Comments: standing order PT (PROTHROMBIN TIME) ([id number]) : standing orderIndication: History of DVT (deep vein thrombosis) On: 28-Aug-2018 Request Comments: standing order PT (PROTHROMBIN TIME) ([id number]) : standing orderIndication: History of DVT (deep vein thrombosis) On: 28-Aug-2018 Request Comments: standing order PT (PROTHROMBIN TIME) ([id number]) : standing orderIndication: History of DVT (deep vein thrombosis) On: 27-Aug-2018 Request Comments: standing order PT (PROTHROMBIN TIME) ([id number]) : standing orderIndication: History of DVT (deep vein thrombosis) On: 27-Aug-2018 Request Comments: standing order PT (PROTHROMBIN TIME) ([id number]) : standing orderIndication: History of DVT (deep vein thrombosis) On: 26-Aug-2018 Request Comments: standing order PT (PROTHROMBIN TIME) ([id number]) : standing orderIndication: History of DVT (deep vein thrombosis) On: 26-Aug-2018 Request Comments: standing order PT (PROTHROMBIN TIME) ([id number]) : standing orderIndication: History of DVT (deep vein thrombosis) On: 25-Aug-2018 Request Comments: standing order PT (PROTHROMBIN TIME) ([id number]) : standing orderIndication: History of DVT (deep vein thrombosis) On: 25-Aug-2018 Request Comments: standing order PT (PROTHROMBIN TIME) ([id number]) : standing orderIndication: History of DVT (deep vein thrombosis) On: 24-Aug-2018 Request Comments: standing order PT (PROTHROMBIN TIME) ([id number]) : standing orderIndication: History of DVT (deep vein thrombosis) On: 24-Aug-2018 Request Comments: standing order PT (PROTHROMBIN TIME) ([id number]) : standing orderIndication: History of DVT (deep vein thrombosis) On: 23-Aug-2018 Request Comments: standing order PT (PROTHROMBIN TIME) ([id number]) : standing orderIndication: History of DVT (deep vein thrombosis) On: 23-Aug-2018 Request Comments: standing order PT (PROTHROMBIN TIME) ([id number]) : standing orderIndication: History of DVT (deep vein thrombosis) On: 22-Aug-2018 Request Comments: standing order PT (PROTHROMBIN TIME) ([id number]) : standing orderIndication: History of DVT (deep vein thrombosis) On: 22-Aug-2018 Request Comments: standing order PT (PROTHROMBIN TIME) ([id number]) : standing orderIndication: History of DVT (deep vein thrombosis) On: 21-Aug-2018 Request Comments: standing order PT (PROTHROMBIN TIME) ([id number]) : standing orderIndication: History of DVT (deep vein thrombosis) On: 21-Aug-2018 Request Comments: standing order PT (PROTHROMBIN TIME) ([id number]) : standing orderIndication: History of DVT (deep vein thrombosis) On: 20-Aug-2018 Request Comments: standing order PT (PROTHROMBIN TIME) ([id number]) : standing orderIndication: History of DVT (deep vein thrombosis) On: 20-Aug-2018 Request Comments: standing order PT (PROTHROMBIN TIME) ([id number]) : standing orderIndication: History of DVT (deep vein thrombosis) On: 19-Aug-2018 Request Comments: standing order PT (PROTHROMBIN TIME) ([id number]) : standing orderIndication: History of DVT (deep vein thrombosis) On: 19-Aug-2018 Request Comments: standing order PT (PROTHROMBIN TIME) ([id number]) : standing orderIndication: History of DVT (deep vein thrombosis) On: 18-Aug-2018 Request Comments: standing order PT (PROTHROMBIN TIME) ([id number]) : standing orderIndication: History of DVT (deep vein thrombosis) On: 18-Aug-2018 Request Comments: standing order PT (PROTHROMBIN TIME) ([id number]) : standing orderIndication: History of DVT (deep vein thrombosis) On: 17-Aug-2018 Request Comments: standing order PT (PROTHROMBIN TIME) ([id number]) : standing orderIndication: History of DVT (deep vein thrombosis) On: 17-Aug-2018 Request Comments: standing order PT (PROTHROMBIN TIME) ([id number]) : standing orderIndication: History of DVT (deep vein thrombosis) On: 16-Aug-2018 Request Comments: standing order PT (PROTHROMBIN TIME) ([id number]) : standing orderIndication: History of DVT (deep vein thrombosis) On: 16-Aug-2018 Request Comments: standing order PT (PROTHROMBIN TIME) ([id number]) : standing orderIndication: History of DVT (deep vein thrombosis) On: 15-Aug-2018 Request Comments: standing order PT (PROTHROMBIN TIME) ([id number]) : standing orderIndication: History of DVT (deep vein thrombosis) On: 15-Aug-2018 Request Comments: standing order PT (PROTHROMBIN TIME) ([id number]) : standing orderIndication: History of DVT (deep vein thrombosis) On: 14-Aug-2018 Request Comments: standing order PT (PROTHROMBIN TIME) ([id number]) : standing orderIndication: History of DVT (deep vein thrombosis) On: 14-Aug-2018 Request Comments: standing order PT (PROTHROMBIN TIME) ([id number]) : standing orderIndication: History of DVT (deep vein thrombosis) On: 13-Aug-2018 Request Comments: standing order PT (PROTHROMBIN TIME) ([id number]) : standing orderIndication: History of DVT (deep vein thrombosis) On: 13-Aug-2018 Request Comments: standing order PT (PROTHROMBIN TIME) ([id number]) : standing orderIndication: History of DVT (deep vein thrombosis) On: 12-Aug-2018 Request Comments: standing order PT (PROTHROMBIN TIME) ([id number]) : standing orderIndication: History of DVT (deep vein thrombosis) On: 12-Aug-2018 Request Comments: standing order PT (PROTHROMBIN TIME) ([id number]) : standing orderIndication: History of DVT (deep vein thrombosis) On: 11-Aug-2018 Request Comments: standing order PT (PROTHROMBIN TIME) ([id number]) : standing orderIndication: History of DVT (deep vein thrombosis) On: 11-Aug-2018 Request Comments: standing order PT (PROTHROMBIN TIME) ([id number]) : standing orderIndication: History of DVT (deep vein thrombosis) On: 10-Aug-2018 Request Comments: standing order PT (PROTHROMBIN TIME) ([id number]) : standing orderIndication: History of DVT (deep vein thrombosis) On: 10-Aug-2018 Request Comments: standing order PT (PROTHROMBIN TIME) ([id number]) : standing orderIndication: History of DVT (deep vein thrombosis) On: 09-Aug-2018 Request Comments: standing order PT (PROTHROMBIN TIME) ([id number]) : standing orderIndication: History of DVT (deep vein thrombosis) On: 09-Aug-2018 Request Comments: standing order PT (PROTHROMBIN TIME) ([id number]) : standing orderIndication: History of DVT (deep vein thrombosis) On: 08-Aug-2018 Request Comments: standing order PT (PROTHROMBIN TIME) ([id number]) : standing orderIndication: History of DVT (deep vein thrombosis) On: 08-Aug-2018 Request Comments: standing order PT (PROTHROMBIN TIME) ([id number]) : standing orderIndication: History of DVT (deep vein thrombosis) On: 07-Aug-2018 Request Comments: standing order PT (PROTHROMBIN TIME) ([id number]) : standing orderIndication: History of DVT (deep vein thrombosis) On: 07-Aug-2018 Request Comments: standing order PT (PROTHROMBIN TIME) ([id number]) : standing orderIndication: History of DVT (deep vein thrombosis) On: 06-Aug-2018 Request Comments: standing order PT (PROTHROMBIN TIME) ([id number]) : standing orderIndication: History of DVT (deep vein thrombosis) On: 06-Aug-2018 Request Comments: standing order PT (PROTHROMBIN TIME) ([id number]) : standing orderIndication: History of DVT (deep vein thrombosis) On: 05-Aug-2018 Request Comments: standing order PT (PROTHROMBIN TIME) ([id number]) : standing orderIndication: History of DVT (deep vein thrombosis) On: 05-Aug-2018 Request Comments: standing order PT (PROTHROMBIN TIME) ([id number]) : standing orderIndication: History of DVT (deep vein thrombosis) On: 04-Aug-2018 Request Comments: standing order PT (PROTHROMBIN TIME) ([id number]) : standing orderIndication: History of DVT (deep vein thrombosis) On: 04-Aug-2018 Request Comments: standing order PT (PROTHROMBIN TIME) ([id number]) : standing orderIndication: History of DVT (deep vein thrombosis) On: 03-Aug-2018 Request Comments: standing order PT (PROTHROMBIN TIME) ([id number]) : standing orderIndication: History of DVT (deep vein thrombosis) On: 03-Aug-2018 Request Comments: standing order PT (PROTHROMBIN TIME) ([id number]) : standing orderIndication: History of DVT (deep vein thrombosis) On: 02-Aug-2018 Request Comments: standing order PT (PROTHROMBIN TIME) ([id number]) : standing orderIndication: History of DVT (deep vein thrombosis) On: 02-Aug-2018 Request Comments: standing order PT (Prothrobim Time) ([id number])Indication: History of DVT (deep vein thrombosis) On: 01-Aug-2018 Request Comments: INR PT (PROTHROMBIN TIME) ([id number]) : standing orderIndication: History of DVT (deep vein thrombosis) On: 01-Aug-2018 Request Comments: standing order PT (PROTHROMBIN TIME) ([id number]) : standing orderIndication: History of DVT (deep vein thrombosis) On: 01-Aug-2018 Request Comments: standing order PT (PROTHROMBIN TIME) ([id number]) : standing orderIndication: History of DVT (deep vein thrombosis) On: 31-Jul-2018 Request Comments: standing order PT (PROTHROMBIN TIME) ([id number]) : standing orderIndication: History of DVT (deep vein thrombosis) On: 31-Jul-2018 Request Comments: standing order PT (PROTHROMBIN TIME) ([id number])Indication: History of DVT (deep vein thrombosis) On: 30-Jul-2018 Request PT (PROTHROMBIN TIME) ([id number]) : standing orderIndication: History of DVT (deep vein thrombosis) On: 30-Jul-2018 Request Comments: standing order PT (PROTHROMBIN TIME) ([id number]) : standing orderIndication: History of DVT (deep vein thrombosis) On: 30-Jul-2018 Request Comments: standing order PT (PROTHROMBIN TIME) ([id number]) : standing orderIndication: History of DVT (deep vein thrombosis) On: 30-Jul-2018 Request Comments: standing order PT (PROTHROMBIN TIME) ([id number]) : standing orderIndication: History of DVT (deep vein thrombosis) On: 29-Jul-2018 Request Comments: standing order PT (PROTHROMBIN TIME) ([id number]) : standing orderIndication: History of DVT (deep vein thrombosis) On: 29-Jul-2018 Request Comments: standing order PT (PROTHROMBIN TIME) ([id number]) : standing orderIndication: History of DVT (deep vein thrombosis) On: 28-Jul-2018 Request Comments: standing order PT (PROTHROMBIN TIME) ([id number]) : standing orderIndication: History of DVT (deep vein thrombosis) On: 28-Jul-2018 Request Comments: standing order PT (PROTHROMBIN TIME) ([id number]) : standing orderIndication: History of DVT (deep vein thrombosis) On: 27-Jul-2018 Request Comments: standing order PT (PROTHROMBIN TIME) ([id number]) : standing orderIndication: History of DVT (deep vein thrombosis) On: 27-Jul-2018 Request Comments: standing order PT (PROTHROMBIN TIME) ([id number]) : standing orderIndication: History of DVT (deep vein thrombosis) On: 26-Jul-2018 Request Comments: standing order PT (PROTHROMBIN TIME) ([id number]) : standing orderIndication: History of DVT (deep vein thrombosis) On: 26-Jul-2018 Request Comments: standing order PT (PROTHROMBIN TIME) ([id number]) : standing orderIndication: History of DVT (deep vein thrombosis) On: 25-Jul-2018 Request Comments: standing order PT (PROTHROMBIN TIME) ([id number]) : standing orderIndication: History of DVT (deep vein thrombosis) On: 25-Jul-2018 Request Comments: standing order PT (PROTHROMBIN TIME) ([id number]) : standing orderIndication: History of DVT (deep vein thrombosis) On: 24-Jul-2018 Request Comments: standing order PT (PROTHROMBIN TIME) ([id number]) : standing orderIndication: History of DVT (deep vein thrombosis) On: 24-Jul-2018 Request Comments: standing order PT (PROTHROMBIN TIME) ([id number]) : standing orderIndication: History of DVT (deep vein thrombosis) On: 23-Jul-2018 Request Comments: standing order PT (PROTHROMBIN TIME) ([id number]) : standing orderIndication: History of DVT (deep vein thrombosis) On: 23-Jul-2018 Request Comments: standing order PT (PROTHROMBIN TIME) ([id number]) : standing orderIndication: History of DVT (deep vein thrombosis) On: 22-Jul-2018 Request Comments: standing order PT (PROTHROMBIN TIME) ([id number]) : standing orderIndication: History of DVT (deep vein thrombosis) On: 22-Jul-2018 Request Comments: standing order PT (PROTHROMBIN TIME) ([id number]) : standing orderIndication: History of DVT (deep vein thrombosis) On: 21-Jul-2018 Request Comments: standing order PT (PROTHROMBIN TIME) ([id number]) : standing orderIndication: History of DVT (deep vein thrombosis) On: 21-Jul-2018 Request Comments: standing order PT (PROTHROMBIN TIME) ([id number]) : standing orderIndication: History of DVT (deep vein thrombosis) On: 20-Jul-2018 Request Comments: standing order PT (PROTHROMBIN TIME) ([id number]) : standing orderIndication: History of DVT (deep vein thrombosis) On: 20-Jul-2018 Request Comments: standing order PT (PROTHROMBIN TIME) ([id number]) : standing orderIndication: History of DVT (deep vein thrombosis) On: 19-Jul-2018 Request Comments: standing order PT (PROTHROMBIN TIME) ([id number]) : standing orderIndication: History of DVT (deep vein thrombosis) On: 19-Jul-2018 Request Comments: standing order PT (PROTHROMBIN TIME) ([id number]) : standing orderIndication: History of DVT (deep vein thrombosis) On: 18-Jul-2018 Request Comments: standing order PT (PROTHROMBIN TIME) ([id number]) : standing orderIndication: History of DVT (deep vein thrombosis) On: 18-Jul-2018 Request Comments: standing order CBC, Platelets & Auto Diff ([id number])Indication: Leukopenia On: 17-Jul-2018 Request PT (PROTHROMBIN TIME) ([id number]) : standing orderIndication: History of DVT (deep vein thrombosis) On: 17-Jul-2018 Request Comments: standing order PT (PROTHROMBIN TIME) ([id number]) : standing orderIndication: History of DVT (deep vein thrombosis) On: 17-Jul-2018 Request Comments: standing order PT (PROTHROMBIN TIME) ([id number]) : standing orderIndication: History of DVT (deep vein thrombosis) On: 16-Jul-2018 Request Comments: standing order PT (PROTHROMBIN TIME) ([id number]) : standing orderIndication: History of DVT (deep vein thrombosis) On: 16-Jul-2018 Request Comments: standing order PT (PROTHROMBIN TIME) ([id number]) : standing orderIndication: History of DVT (deep vein thrombosis) On: 15-Jul-2018 Request Comments: standing order PT (PROTHROMBIN TIME) ([id number]) : standing orderIndication: History of DVT (deep vein thrombosis) On: 15-Jul-2018 Request Comments: standing order PT (PROTHROMBIN TIME) ([id number]) : standing orderIndication: History of DVT (deep vein thrombosis) On: 14-Jul-2018 Request Comments: standing order PT (PROTHROMBIN TIME) ([id number]) : standing orderIndication: History of DVT (deep vein thrombosis) On: 14-Jul-2018 Request Comments: standing order PT (PROTHROMBIN TIME) ([id number]) : standing orderIndication: History of DVT (deep vein thrombosis) On: 13-Jul-2018 Request Comments: standing order PT (PROTHROMBIN TIME) ([id number]) : standing orderIndication: History of DVT (deep vein thrombosis) On: 13-Jul-2018 Request Comments: standing order PT (PROTHROMBIN TIME) ([id number]) : standing orderIndication: History of DVT (deep vein thrombosis) On: 12-Jul-2018 Request Comments: standing order PT (PROTHROMBIN TIME) ([id number]) : standing orderIndication: History of DVT (deep vein thrombosis) On: 12-Jul-2018 Request Comments: standing order PT (PROTHROMBIN TIME) ([id number]) : standing orderIndication: History of DVT (deep vein thrombosis) On: 11-Jul-2018 Request Comments: standing order PT (PROTHROMBIN TIME) ([id number]) : standing orderIndication: History of DVT (deep vein thrombosis) On: 11-Jul-2018 Request Comments: standing order PT (PROTHROMBIN TIME) ([id number]) : standing orderIndication: History of DVT (deep vein thrombosis) On: 10-Jul-2018 Request Comments: standing order PT (PROTHROMBIN TIME) ([id number]) : standing orderIndication: History of DVT (deep vein thrombosis) On: 10-Jul-2018 Request Comments: standing order PT (PROTHROMBIN TIME) ([id number]) : standing orderIndication: History of DVT (deep vein thrombosis) On: 09-Jul-2018 Request Comments: standing order PT (PROTHROMBIN TIME) ([id number]) : standing orderIndication: History of DVT (deep vein thrombosis) On: 09-Jul-2018 Request Comments: standing order PT (PROTHROMBIN TIME) ([id number]) : standing orderIndication: History of DVT (deep vein thrombosis) On: 08-Jul-2018 Request Comments: standing order PT (PROTHROMBIN TIME) ([id number]) : standing orderIndication: History of DVT (deep vein thrombosis) On: 08-Jul-2018 Request Comments: standing order PT (PROTHROMBIN TIME) ([id number]) : standing orderIndication: History of DVT (deep vein thrombosis) On: 07-Jul-2018 Request Comments: standing order PT (PROTHROMBIN TIME) ([id number]) : standing orderIndication: History of DVT (deep vein thrombosis) On: 07-Jul-2018 Request Comments: standing order PT (PROTHROMBIN TIME) ([id number]) : standing orderIndication: History of DVT (deep vein thrombosis) On: 06-Jul-2018 Request Comments: standing order PT (PROTHROMBIN TIME) ([id number]) : standing orderIndication: History of DVT (deep vein thrombosis) On: 06-Jul-2018 Request Comments: standing order PT (PROTHROMBIN TIME) ([id number]) : standing orderIndication: History of DVT (deep vein thrombosis) On: 05-Jul-2018 Request Comments: standing order PT (PROTHROMBIN TIME) ([id number]) : standing orderIndication: History of DVT (deep vein thrombosis) On: 05-Jul-2018 Request Comments: standing order PT (PROTHROMBIN TIME) ([id number]) : standing orderIndication: History of DVT (deep vein thrombosis) On: 04-Jul-2018 Request Comments: standing order PT (PROTHROMBIN TIME) ([id number]) : standing orderIndication: History of DVT (deep vein thrombosis) On: 04-Jul-2018 Request Comments: standing order PT (PROTHROMBIN TIME) ([id number]) : standing orderIndication: History of DVT (deep vein thrombosis) On: 03-Jul-2018 Request Comments: standing order PT (PROTHROMBIN TIME) ([id number]) : standing orderIndication: History of DVT (deep vein thrombosis) On: 03-Jul-2018 Request Comments: standing order PT (Prothrobim Time) ([id number])Indication: History of DVT (deep vein thrombosis) On: 02-Jul-2018 Request Comments: INR PT (PROTHROMBIN TIME) ([id number]) : standing orderIndication: History of DVT (deep vein thrombosis) On: 02-Jul-2018 Request Comments: standing order PT (PROTHROMBIN TIME) ([id number]) : standing orderIndication: History of DVT (deep vein thrombosis) On: 02-Jul-2018 Request Comments: standing order PT (PROTHROMBIN TIME) ([id number]) : standing orderIndication: History of DVT (deep vein thrombosis) On: 01-Jul-2018 Request Comments: standing order PT (PROTHROMBIN TIME) ([id number]) : standing orderIndication: History of DVT (deep vein thrombosis) On: 01-Jul-2018 Request Comments: standing order PT (PROTHROMBIN TIME) ([id number])Indication: History of DVT (deep vein thrombosis) On: 30-Jun-2018 Request PT (PROTHROMBIN TIME) ([id number]) : standing orderIndication: History of DVT (deep vein thrombosis) On: 30-Jun-2018 Request Comments: standing order PT (PROTHROMBIN TIME) ([id number]) : standing orderIndication: History of DVT (deep vein thrombosis) On: 30-Jun-2018 Request Comments: standing order PT (PROTHROMBIN TIME) ([id number]) : standing orderIndication: History of DVT (deep vein thrombosis) On: 30-Jun-2018 Request Comments: standing order PT (PROTHROMBIN TIME) ([id number]) : standing orderIndication: History of DVT (deep vein thrombosis) On: 29-Jun-2018 Request Comments: standing order PT (PROTHROMBIN TIME) ([id number]) : standing orderIndication: History of DVT (deep vein thrombosis) On: 29-Jun-2018 Request Comments: standing order PT (PROTHROMBIN TIME) ([id number]) : standing orderIndication: History of DVT (deep vein thrombosis) On: 28-Jun-2018 Request Comments: standing order PT (PROTHROMBIN TIME) ([id number]) : standing orderIndication: History of DVT (deep vein thrombosis) On: 28-Jun-2018 Request Comments: standing order PT (PROTHROMBIN TIME) ([id number]) : standing orderIndication: History of DVT (deep vein thrombosis) On: 27-Jun-2018 Request Comments: standing order PT (PROTHROMBIN TIME) ([id number]) : standing orderIndication: History of DVT (deep vein thrombosis) On: 27-Jun-2018 Request Comments: standing order PT (PROTHROMBIN TIME) ([id number]) : standing orderIndication: History of DVT (deep vein thrombosis) On: 26-Jun-2018 Request Comments: standing order PT (PROTHROMBIN TIME) ([id number]) : standing orderIndication: History of DVT (deep vein thrombosis) On: 26-Jun-2018 Request Comments: standing order PT (PROTHROMBIN TIME) ([id number]) : standing orderIndication: History of DVT (deep vein thrombosis) On: 25-Jun-2018 Request Comments: standing order PT (PROTHROMBIN TIME) ([id number]) : standing orderIndication: History of DVT (deep vein thrombosis) On: 25-Jun-2018 Request Comments: standing order PT (PROTHROMBIN TIME) ([id number]) : standing orderIndication: History of DVT (deep vein thrombosis) On: 24-Jun-2018 Request Comments: standing order PT (PROTHROMBIN TIME) ([id number]) : standing orderIndication: History of DVT (deep vein thrombosis) On: 24-Jun-2018 Request Comments: standing order PT (PROTHROMBIN TIME) ([id number]) : standing orderIndication: History of DVT (deep vein thrombosis) On: 23-Jun-2018 Request Comments: standing order PT (PROTHROMBIN TIME) ([id number]) : standing orderIndication: History of DVT (deep vein thrombosis) On: 23-Jun-2018 Request Comments: standing order PT (PROTHROMBIN TIME) ([id number]) : standing orderIndication: History of DVT (deep vein thrombosis) On: 22-Jun-2018 Request Comments: standing order PT (PROTHROMBIN TIME) ([id number]) : standing orderIndication: History of DVT (deep vein thrombosis) On: 22-Jun-2018 Request Comments: standing order PT (PROTHROMBIN TIME) ([id number]) : standing orderIndication: History of DVT (deep vein thrombosis) On: 21-Jun-2018 Request Comments: standing order PT (PROTHROMBIN TIME) ([id number]) : standing orderIndication: History of DVT (deep vein thrombosis) On: 21-Jun-2018 Request Comments: standing order PT (PROTHROMBIN TIME) ([id number]) : standing orderIndication: History of DVT (deep vein thrombosis) On: 20-Jun-2018 Request Comments: standing order PT (PROTHROMBIN TIME) ([id number]) : standing orderIndication: History of DVT (deep vein thrombosis) On: 20-Jun-2018 Request Comments: standing order PT (PROTHROMBIN TIME) ([id number]) : standing orderIndication: History of DVT (deep vein thrombosis) On: 19-Jun-2018 Request Comments: standing order PT (PROTHROMBIN TIME) ([id number]) : standing orderIndication: History of DVT (deep vein thrombosis) On: 19-Jun-2018 Request Comments: standing order PT (PROTHROMBIN TIME) ([id number]) : standing orderIndication: History of DVT (deep vein thrombosis) On: 18-Jun-2018 Request Comments: standing order PT (PROTHROMBIN TIME) ([id number]) : standing orderIndication: History of DVT (deep vein thrombosis) On: 18-Jun-2018 Request Comments: standing order PT (PROTHROMBIN TIME) ([id number]) : standing orderIndication: History of DVT (deep vein thrombosis) On: 17-Jun-2018 Request Comments: standing order PT (PROTHROMBIN TIME) ([id number]) : standing orderIndication: History of DVT (deep vein thrombosis) On: 17-Jun-2018 Request Comments: standing order PT (PROTHROMBIN TIME) ([id number]) : standing orderIndication: History of DVT (deep vein thrombosis) On: 16-Jun-2018 Request Comments: standing order PT (PROTHROMBIN TIME) ([id number]) : standing orderIndication: History of DVT (deep vein thrombosis) On: 16-Jun-2018 Request Comments: standing order PT (PROTHROMBIN TIME) ([id number]) : standing orderIndication: History of DVT (deep vein thrombosis) On: 15-Jun-2018 Request Comments: standing order PT (PROTHROMBIN TIME) ([id number]) : standing orderIndication: History of DVT (deep vein thrombosis) On: 15-Jun-2018 Request Comments: standing order PT (PROTHROMBIN TIME) ([id number]) : standing orderIndication: History of DVT (deep vein thrombosis) On: 14-Jun-2018 Request Comments: standing order PT (PROTHROMBIN TIME) ([id number]) : standing orderIndication: History of DVT (deep vein thrombosis) On: 14-Jun-2018 Request Comments: standing order PT (PROTHROMBIN TIME) ([id number]) : standing orderIndication: History of DVT (deep vein thrombosis) On: 13-Jun-2018 Request Comments: standing order PT (PROTHROMBIN TIME) ([id number]) : standing orderIndication: History of DVT (deep vein thrombosis) On: 13-Jun-2018 Request Comments: standing order PT (PROTHROMBIN TIME) ([id number]) : standing orderIndication: History of DVT (deep vein thrombosis) On: 12-Jun-2018 Request Comments: standing order PT (PROTHROMBIN TIME) ([id number]) : standing orderIndication: History of DVT (deep vein thrombosis) On: 12-Jun-2018 Request Comments: standing order PT (PROTHROMBIN TIME) ([id number]) : standing orderIndication: History of DVT (deep vein thrombosis) On: 11-Jun-2018 Request Comments: standing order PT (PROTHROMBIN TIME) ([id number]) : standing orderIndication: History of DVT (deep vein thrombosis) On: 11-Jun-2018 Request Comments: standing order PT (PROTHROMBIN TIME) ([id number]) : standing orderIndication: History of DVT (deep vein thrombosis) On: 10-Jun-2018 Request Comments: standing order PT (PROTHROMBIN TIME) ([id number]) : standing orderIndication: History of DVT (deep vein thrombosis) On: 10-Jun-2018 Request Comments: standing order PT (PROTHROMBIN TIME) ([id number]) : standing orderIndication: History of DVT (deep vein thrombosis) On: 09-Jun-2018 Request Comments: standing order PT (PROTHROMBIN TIME) ([id number]) : standing orderIndication: History of DVT (deep vein thrombosis) On: 09-Jun-2018 Request Comments: standing order PT (PROTHROMBIN TIME) ([id number]) : standing orderIndication: History of DVT (deep vein thrombosis) On: 08-Jun-2018 Request Comments: standing order PT (PROTHROMBIN TIME) ([id number]) : standing orderIndication: History of DVT (deep vein thrombosis) On: 08-Jun-2018 Request Comments: standing order PT (PROTHROMBIN TIME) ([id number]) : standing orderIndication: History of DVT (deep vein thrombosis) On: 07-Jun-2018 Request Comments: standing order PT (PROTHROMBIN TIME) ([id number]) : standing orderIndication: History of DVT (deep vein thrombosis) On: 07-Jun-2018 Request Comments: standing order PT (PROTHROMBIN TIME) ([id number]) : standing orderIndication: History of DVT (deep vein thrombosis) On: 06-Jun-2018 Request Comments: standing order PT (PROTHROMBIN TIME) ([id number]) : standing orderIndication: History of DVT (deep vein thrombosis) On: 06-Jun-2018 Request Comments: standing order PT (PROTHROMBIN TIME) ([id number]) : standing orderIndication: History of DVT (deep vein thrombosis) On: 05-Jun-2018 Request Comments: standing order PT (PROTHROMBIN TIME) ([id number]) : standing orderIndication: History of DVT (deep vein thrombosis) On: 05-Jun-2018 Request Comments: standing order PT (PROTHROMBIN TIME) ([id number]) : standing orderIndication: History of DVT (deep vein thrombosis) On: 04-Jun-2018 Request Comments: standing order PT (PROTHROMBIN TIME) ([id number]) : standing orderIndication: History of DVT (deep vein thrombosis) On: 04-Jun-2018 Request Comments: standing order PT (PROTHROMBIN TIME) ([id number]) : standing orderIndication: History of DVT (deep vein thrombosis) On: 03-Jun-2018 Request Comments: standing order PT (PROTHROMBIN TIME) ([id number]) : standing orderIndication: History of DVT (deep vein thrombosis) On: 03-Jun-2018 Request Comments: standing order PT (Prothrobim Time) ([id number])Indication: History of DVT (deep vein thrombosis) On: 02-Jun-2018 Request Comments: INR PT (PROTHROMBIN TIME) ([id number]) : standing orderIndication: History of DVT (deep vein thrombosis) On: 02-Jun-2018 Request Comments: standing order PT (PROTHROMBIN TIME) ([id number]) : standing orderIndication: History of DVT (deep vein thrombosis) On: 02-Jun-2018 Request Comments: standing order PT (PROTHROMBIN TIME) ([id number]) : standing orderIndication: History of DVT (deep vein thrombosis) On: 01-Jun-2018 Request Comments: standing order PT (PROTHROMBIN TIME) ([id number]) : standing orderIndication: History of DVT (deep vein thrombosis) On: 01-Jun-2018 Request Comments: standing order PT (PROTHROMBIN TIME) ([id number])Indication: History of DVT (deep vein thrombosis) On: 31-May-2018 Request PT (PROTHROMBIN TIME) ([id number]) : standing orderIndication: History of DVT (deep vein thrombosis) On: 31-May-2018 Request Comments: standing order PT (PROTHROMBIN TIME) ([id number]) : standing orderIndication: History of DVT (deep vein thrombosis) On: 31-May-2018 Request Comments: standing order PT (PROTHROMBIN TIME) ([id number]) : standing orderIndication: History of DVT (deep vein thrombosis) On: 31-May-2018 Request Comments: standing order PT (PROTHROMBIN TIME) ([id number]) : standing orderIndication: History of DVT (deep vein thrombosis) On: 30-May-2018 Request Comments: standing order PT (PROTHROMBIN TIME) ([id number]) : standing orderIndication: History of DVT (deep vein thrombosis) On: 30-May-2018 Request Comments: standing order PT (PROTHROMBIN TIME) ([id number]) : standing orderIndication: History of DVT (deep vein thrombosis) On: 29-May-2018 Request Comments: standing order PT (PROTHROMBIN TIME) ([id number]) : standing orderIndication: History of DVT (deep vein thrombosis) On: 29-May-2018 Request Comments: standing order PT (PROTHROMBIN TIME) ([id number]) : standing orderIndication: History of DVT (deep vein thrombosis) On: 28-May-2018 Request Comments: standing order PT (PROTHROMBIN TIME) ([id number]) : standing orderIndication: History of DVT (deep vein thrombosis) On: 28-May-2018 Request Comments: standing order PT (PROTHROMBIN TIME) ([id number]) : standing orderIndication: History of DVT (deep vein thrombosis) On: 27-May-2018 Request Comments: standing order PT (PROTHROMBIN TIME) ([id number]) : standing orderIndication: History of DVT (deep vein thrombosis) On: 27-May-2018 Request Comments: standing order PT (PROTHROMBIN TIME) ([id number]) : standing orderIndication: History of DVT (deep vein thrombosis) On: 26-May-2018 Request Comments: standing order PT (PROTHROMBIN TIME) ([id number]) : standing orderIndication: History of DVT (deep vein thrombosis) On: 26-May-2018 Request Comments: standing order PT (PROTHROMBIN TIME) ([id number]) : standing orderIndication: History of DVT (deep vein thrombosis) On: 25-May-2018 Request Comments: standing order PT (PROTHROMBIN TIME) ([id number]) : standing orderIndication: History of DVT (deep vein thrombosis) On: 25-May-2018 Request Comments: standing order PT (PROTHROMBIN TIME) ([id number]) : standing orderIndication: History of DVT (deep vein thrombosis) On: 24-May-2018 Request Comments: standing order PT (PROTHROMBIN TIME) ([id number]) : standing orderIndication: History of DVT (deep vein thrombosis) On: 24-May-2018 Request Comments: standing order PT (Prothrobim Time) ([id number])Indication: Anticoagulated on Coumadin On: 23-May-2018 Request PT (PROTHROMBIN TIME) ([id number]) : standing orderIndication: History of DVT (deep vein thrombosis) On: 23-May-2018 Request Comments: standing order PT (PROTHROMBIN TIME) ([id number]) : standing orderIndication: History of DVT (deep vein thrombosis) On: 23-May-2018 Request Comments: standing order PT (PROTHROMBIN TIME) ([id number]) : standing orderIndication: History of DVT (deep vein thrombosis) On: 22-May-2018 Request Comments: standing order PT (PROTHROMBIN TIME) ([id number]) : standing orderIndication: History of DVT (deep vein thrombosis) On: 22-May-2018 Request Comments: standing order PT (PROTHROMBIN TIME) ([id number]) : standing orderIndication: History of DVT (deep vein thrombosis) On: 21-May-2018 Request Comments: standing order PT (PROTHROMBIN TIME) ([id number]) : standing orderIndication: History of DVT (deep vein thrombosis) On: 21-May-2018 Request Comments: standing order PT (PROTHROMBIN TIME) ([id number]) : standing orderIndication: History of DVT (deep vein thrombosis) On: 20-May-2018 Request Comments: standing order PT (PROTHROMBIN TIME) ([id number]) : standing orderIndication: History of DVT (deep vein thrombosis) On: 20-May-2018 Request Comments: standing order PT (PROTHROMBIN TIME) ([id number]) : standing orderIndication: History of DVT (deep vein thrombosis) On: 19-May-2018 Request Comments: standing order PT (PROTHROMBIN TIME) ([id number]) : standing orderIndication: History of DVT (deep vein thrombosis) On: 19-May-2018 Request Comments: standing order PT (PROTHROMBIN TIME) ([id number]) : standing orderIndication: History of DVT (deep vein thrombosis) On: 18-May-2018 Request Comments: standing order PT (PROTHROMBIN TIME) ([id number]) : standing orderIndication: History of DVT (deep vein thrombosis) On: 18-May-2018 Request Comments: standing order PT (PROTHROMBIN TIME) ([id number]) : standing orderIndication: History of DVT (deep vein thrombosis) On: 17-May-2018 Request Comments: standing order PT (PROTHROMBIN TIME) ([id number]) : standing orderIndication: History of DVT (deep vein thrombosis) On: 17-May-2018 Request Comments: standing order PT (Prothrobim Time) ([id number])Indication: Anticoagulated on Coumadin On: 16-May-2018 Request PT (PROTHROMBIN TIME) ([id number]) : standing orderIndication: History of DVT (deep vein thrombosis) On: 16-May-2018 Request Comments: standing order PT (PROTHROMBIN TIME) ([id number]) : standing orderIndication: History of DVT (deep vein thrombosis) On: 16-May-2018 Request Comments: standing order PT (PROTHROMBIN TIME) ([id number]) : standing orderIndication: History of DVT (deep vein thrombosis) On: 15-May-2018 Request Comments: standing order PT (PROTHROMBIN TIME) ([id number]) : standing orderIndication: History of DVT (deep vein thrombosis) On: 15-May-2018 Request Comments: standing order PT (PROTHROMBIN TIME) ([id number]) : standing orderIndication: History of DVT (deep vein thrombosis) On: 14-May-2018 Request Comments: standing order PT (PROTHROMBIN TIME) ([id number]) : standing orderIndication: History of DVT (deep vein thrombosis) On: 14-May-2018 Request Comments: standing order PT (PROTHROMBIN TIME) ([id number]) : standing orderIndication: History of DVT (deep vein thrombosis) On: 13-May-2018 Request Comments: standing order PT (PROTHROMBIN TIME) ([id number]) : standing orderIndication: History of DVT (deep vein thrombosis) On: 13-May-2018 Request Comments: standing order PT (PROTHROMBIN TIME) ([id number]) : standing orderIndication: History of DVT (deep vein thrombosis) On: 12-May-2018 Request Comments: standing order PT (PROTHROMBIN TIME) ([id number]) : standing orderIndication: History of DVT (deep vein thrombosis) On: 12-May-2018 Request Comments: standing order PT (PROTHROMBIN TIME) ([id number]) : standing orderIndication: History of DVT (deep vein thrombosis) On: 11-May-2018 Request Comments: standing order PT (PROTHROMBIN TIME) ([id number]) : standing orderIndication: History of DVT (deep vein thrombosis) On: 11-May-2018 Request Comments: standing order PT (PROTHROMBIN TIME) ([id number]) : standing orderIndication: History of DVT (deep vein thrombosis) On: 10-May-2018 Request Comments: standing order PT (PROTHROMBIN TIME) ([id number]) : standing orderIndication: History of DVT (deep vein thrombosis) On: 10-May-2018 Request Comments: standing order PT (Prothrobim Time) ([id number])Indication: Anticoagulated on Coumadin On: 09-May-2018 Request PT (PROTHROMBIN TIME) ([id number]) : standing orderIndication: History of DVT (deep vein thrombosis) On: 09-May-2018 Request Comments: standing order PT (PROTHROMBIN TIME) ([id number]) : standing orderIndication: History of DVT (deep vein thrombosis) On: 09-May-2018 Request Comments: standing order PT (PROTHROMBIN TIME) ([id number]) : standing orderIndication: History of DVT (deep vein thrombosis) On: 08-May-2018 Request Comments: standing order PT (PROTHROMBIN TIME) ([id number]) : standing orderIndication: History of DVT (deep vein thrombosis) On: 08-May-2018 Request Comments: standing order PT (PROTHROMBIN TIME) ([id number]) : standing orderIndication: History of DVT (deep vein thrombosis) On: 07-May-2018 Request Comments: standing order PT (PROTHROMBIN TIME) ([id number]) : standing orderIndication: History of DVT (deep vein thrombosis) On: 07-May-2018 Request Comments: standing order PT (PROTHROMBIN TIME) ([id number]) : standing orderIndication: History of DVT (deep vein thrombosis) On: 06-May-2018 Request Comments: standing order PT (PROTHROMBIN TIME) ([id number]) : standing orderIndication: History of DVT (deep vein thrombosis) On: 06-May-2018 Request Comments: standing order PT (PROTHROMBIN TIME) ([id number]) : standing orderIndication: History of DVT (deep vein thrombosis) On: 05-May-2018 Request Comments: standing order PT (PROTHROMBIN TIME) ([id number]) : standing orderIndication: History of DVT (deep vein thrombosis) On: 05-May-2018 Request Comments: standing order PT (PROTHROMBIN TIME) ([id number]) : standing orderIndication: History of DVT (deep vein thrombosis) On: 04-May-2018 Request Comments: standing order PT (PROTHROMBIN TIME) ([id number]) : standing orderIndication: History of DVT (deep vein thrombosis) On: 04-May-2018 Request Comments: standing order PT (Prothrobim Time) ([id number])Indication: History of DVT (deep vein thrombosis) On: 03-May-2018 Request Comments: INR PT (PROTHROMBIN TIME) ([id number]) : standing orderIndication: History of DVT (deep vein thrombosis) On: 03-May-2018 Request Comments: standing order PT (PROTHROMBIN TIME) ([id number]) : standing orderIndication: History of DVT (deep vein thrombosis) On: 03-May-2018 Request Comments: standing order PT (Prothrobim Time) ([id number])Indication: Anticoagulated on Coumadin On: 02-May-2018 Request PT (PROTHROMBIN TIME) ([id number]) : standing orderIndication: History of DVT (deep vein thrombosis) On: 02-May-2018 Request Comments: standing order PT (PROTHROMBIN TIME) ([id number]) : standing orderIndication: History of DVT (deep vein thrombosis) On: 02-May-2018 Request Comments: standing order PT (PROTHROMBIN TIME) ([id number])Indication: History of DVT (deep vein thrombosis) On: 01-May-2018 Request PT (PROTHROMBIN TIME) ([id number]) : standing orderIndication: History of DVT (deep vein thrombosis) On: 01-May-2018 Request Comments: standing order PT (PROTHROMBIN TIME) ([id number]) : standing orderIndication: History of DVT (deep vein thrombosis) On: 01-May-2018 Request Comments: standing order PT (PROTHROMBIN TIME) ([id number]) : standing orderIndication: History of DVT (deep vein thrombosis) On: 01-May-2018 Request Comments: standing order PT (PROTHROMBIN TIME) ([id number]) : standing orderIndication: History of DVT (deep vein thrombosis) On: 30-Apr-2018 Request Comments: standing order PT (PROTHROMBIN TIME) ([id number]) : standing orderIndication: History of DVT (deep vein thrombosis) On: 30-Apr-2018 Request Comments: standing order PT (PROTHROMBIN TIME) ([id number]) : standing orderIndication: History of DVT (deep vein thrombosis) On: 29-Apr-2018 Request Comments: standing order PT (PROTHROMBIN TIME) ([id number]) : standing orderIndication: History of DVT (deep vein thrombosis) On: 29-Apr-2018 Request Comments: standing order PT (PROTHROMBIN TIME) ([id number]) : standing orderIndication: History of DVT (deep vein thrombosis) On: 28-Apr-2018 Request Comments: standing order PT (PROTHROMBIN TIME) ([id number]) : standing orderIndication: History of DVT (deep vein thrombosis) On: 28-Apr-2018 Request Comments: standing order PT (PROTHROMBIN TIME) ([id number]) : standing orderIndication: History of DVT (deep vein thrombosis) On: 27-Apr-2018 Request Comments: standing order PT (PROTHROMBIN TIME) ([id number]) : standing orderIndication: History of DVT (deep vein thrombosis) On: 27-Apr-2018 Request Comments: standing order PT (PROTHROMBIN TIME) ([id number]) : standing orderIndication: History of DVT (deep vein thrombosis) On: 26-Apr-2018 Request Comments: standing order PT (PROTHROMBIN TIME) ([id number]) : standing orderIndication: History of DVT (deep vein thrombosis) On: 26-Apr-2018 Request Comments: standing order PT (Prothrobim Time) ([id number])Indication: Anticoagulated on Coumadin On: 25-Apr-2018 Request PT (PROTHROMBIN TIME) ([id number]) : standing orderIndication: History of DVT (deep vein thrombosis) On: 25-Apr-2018 Request Comments: standing order PT (PROTHROMBIN TIME) ([id number]) : standing orderIndication: History of DVT (deep vein thrombosis) On: 25-Apr-2018 Request Comments: standing order PT (PROTHROMBIN TIME) ([id number]) : standing orderIndication: History of DVT (deep vein thrombosis) On: 24-Apr-2018 Request Comments: standing order PT (PROTHROMBIN TIME) ([id number]) : standing orderIndication: History of DVT (deep vein thrombosis) On: 24-Apr-2018 Request Comments: standing order PT (PROTHROMBIN TIME) ([id number]) : standing orderIndication: History of DVT (deep vein thrombosis) On: 23-Apr-2018 Request Comments: standing order PT (PROTHROMBIN TIME) ([id number]) : standing orderIndication: History of DVT (deep vein thrombosis) On: 23-Apr-2018 Request Comments: standing order PT (PROTHROMBIN TIME) ([id number]) : standing orderIndication: History of DVT (deep vein thrombosis) On: 22-Apr-2018 Request Comments: standing order PT (PROTHROMBIN TIME) ([id number]) : standing orderIndication: History of DVT (deep vein thrombosis) On: 22-Apr-2018 Request Comments: standing order PT (PROTHROMBIN TIME) ([id number]) : standing orderIndication: History of DVT (deep vein thrombosis) On: 21-Apr-2018 Request Comments: standing order PT (PROTHROMBIN TIME) ([id number]) : standing orderIndication: History of DVT (deep vein thrombosis) On: 21-Apr-2018 Request Comments: standing order PT (PROTHROMBIN TIME) ([id number]) : standing orderIndication: History of DVT (deep vein thrombosis) On: 20-Apr-2018 Request Comments: standing order PT (PROTHROMBIN TIME) ([id number]) : standing orderIndication: History of DVT (deep vein thrombosis) On: 20-Apr-2018 Request Comments: standing order PT (PROTHROMBIN TIME) ([id number]) : standing orderIndication: History of DVT (deep vein thrombosis) On: 19-Apr-2018 Request Comments: standing order PT (PROTHROMBIN TIME) ([id number]) : standing orderIndication: History of DVT (deep vein thrombosis) On: 19-Apr-2018 Request Comments: standing order CBC, Platelets & Auto Diff ([id number])Indication: Leukopenia On: 18-Apr-2018 Request PT (Prothrobim Time) ([id number])Indication: Anticoagulated on Coumadin On: 18-Apr-2018 Request PT (PROTHROMBIN TIME) ([id number]) : standing orderIndication: History of DVT (deep vein thrombosis) On: 18-Apr-2018 Request Comments: standing order PT (PROTHROMBIN TIME) ([id number]) : standing orderIndication: History of DVT (deep vein thrombosis) On: 18-Apr-2018 Request Comments: standing order PT (PROTHROMBIN TIME) ([id number]) : standing orderIndication: History of DVT (deep vein thrombosis) On: 17-Apr-2018 Request Comments: standing order PT (PROTHROMBIN TIME) ([id number]) : standing orderIndication: History of DVT (deep vein thrombosis) On: 17-Apr-2018 Request Comments: standing order PT (PROTHROMBIN TIME) ([id number]) : standing orderIndication: History of DVT (deep vein thrombosis) On: 16-Apr-2018 Request Comments: standing order PT (PROTHROMBIN TIME) ([id number]) : standing orderIndication: History of DVT (deep vein thrombosis) On: 16-Apr-2018 Request Comments: standing order PT (PROTHROMBIN TIME) ([id number]) : standing orderIndication: History of DVT (deep vein thrombosis) On: 15-Apr-2018 Request Comments: standing order PT (PROTHROMBIN TIME) ([id number]) : standing orderIndication: History of DVT (deep vein thrombosis) On: 15-Apr-2018 Request Comments: standing order PT (PROTHROMBIN TIME) ([id number]) : standing orderIndication: History of DVT (deep vein thrombosis) On: 14-Apr-2018 Request Comments: standing order PT (PROTHROMBIN TIME) ([id number]) : standing orderIndication: History of DVT (deep vein thrombosis) On: 14-Apr-2018 Request Comments: standing order PT (PROTHROMBIN TIME) ([id number]) : standing orderIndication: History of DVT (deep vein thrombosis) On: 13-Apr-2018 Request Comments: standing order PT (PROTHROMBIN TIME) ([id number]) : standing orderIndication: History of DVT (deep vein thrombosis) On: 13-Apr-2018 Request Comments: standing order PT (PROTHROMBIN TIME) ([id number]) : standing orderIndication: History of DVT (deep vein thrombosis) On: 12-Apr-2018 Request Comments: standing order PT (PROTHROMBIN TIME) ([id number]) : standing orderIndication: History of DVT (deep vein thrombosis) On: 12-Apr-2018 Request Comments: standing order PT (Prothrobim Time) ([id number])Indication: Anticoagulated on Coumadin On: 11-Apr-2018 Request PT (PROTHROMBIN TIME) ([id number]) : standing orderIndication: History of DVT (deep vein thrombosis) On: 11-Apr-2018 Request Comments: standing order PT (PROTHROMBIN TIME) ([id number]) : standing orderIndication: History of DVT (deep vein thrombosis) On: 11-Apr-2018 Request Comments: standing order PT (PROTHROMBIN TIME) ([id number]) : standing orderIndication: History of DVT (deep vein thrombosis) On: 10-Apr-2018 Request Comments: standing order PT (PROTHROMBIN TIME) ([id number]) : standing orderIndication: History of DVT (deep vein thrombosis) On: 10-Apr-2018 Request Comments: standing order PT (PROTHROMBIN TIME) ([id number]) : standing orderIndication: History of DVT (deep vein thrombosis) On: 09-Apr-2018 Request Comments: standing order PT (PROTHROMBIN TIME) ([id number]) : standing orderIndication: History of DVT (deep vein thrombosis) On: 09-Apr-2018 Request Comments: standing order PT (PROTHROMBIN TIME) ([id number]) : standing orderIndication: History of DVT (deep vein thrombosis) On: 08-Apr-2018 Request Comments: standing order PT (PROTHROMBIN TIME) ([id number]) : standing orderIndication: History of DVT (deep vein thrombosis) On: 08-Apr-2018 Request Comments: standing order PT (PROTHROMBIN TIME) ([id number]) : standing orderIndication: History of DVT (deep vein thrombosis) On: 07-Apr-2018 Request Comments: standing order PT (PROTHROMBIN TIME) ([id number]) : standing orderIndication: History of DVT (deep vein thrombosis) On: 07-Apr-2018 Request Comments: standing order PT (PROTHROMBIN TIME) ([id number]) : standing orderIndication: History of DVT (deep vein thrombosis) On: 06-Apr-2018 Request Comments: standing order PT (PROTHROMBIN TIME) ([id number]) : standing orderIndication: History of DVT (deep vein thrombosis) On: 06-Apr-2018 Request Comments: standing order PT (PROTHROMBIN TIME) ([id number]) : standing orderIndication: History of DVT (deep vein thrombosis) On: 05-Apr-2018 Request Comments: standing order PT (PROTHROMBIN TIME) ([id number]) : standing orderIndication: History of DVT (deep vein thrombosis) On: 05-Apr-2018 Request Comments: standing order PT (Prothrobim Time) ([id number])Indication: Anticoagulated on Coumadin On: 04-Apr-2018 Request PT (PROTHROMBIN TIME) ([id number]) : standing orderIndication: History of DVT (deep vein thrombosis) On: 04-Apr-2018 Request Comments: standing order PT (PROTHROMBIN TIME) ([id number]) : standing orderIndication: History of DVT (deep vein thrombosis) On: 04-Apr-2018 Request Comments: standing order PT (Prothrobim Time) ([id number])Indication: History of DVT (deep vein thrombosis) On: 03-Apr-2018 Request Comments: INR PT (PROTHROMBIN TIME) ([id number]) : standing orderIndication: History of DVT (deep vein thrombosis) On: 03-Apr-2018 Request Comments: standing order PT (PROTHROMBIN TIME) ([id number]) : standing orderIndication: History of DVT (deep vein thrombosis) On: 03-Apr-2018 Request Comments: standing order PT (PROTHROMBIN TIME) ([id number]) : standing orderIndication: History of DVT (deep vein thrombosis) On: 02-Apr-2018 Request Comments: standing order PT (PROTHROMBIN TIME) ([id number]) : standing orderIndication: History of DVT (deep vein thrombosis) On: 02-Apr-2018 Request Comments: standing order PT (PROTHROMBIN TIME) ([id number])Indication: History of DVT (deep vein thrombosis) On: 01-Apr-2018 Request PT (PROTHROMBIN TIME) ([id number]) : standing orderIndication: History of DVT (deep vein thrombosis) On: 01-Apr-2018 Request Comments: standing order PT (PROTHROMBIN TIME) ([id number]) : standing orderIndication: History of DVT (deep vein thrombosis) On: 01-Apr-2018 Request Comments: standing order PT (PROTHROMBIN TIME) ([id number]) : standing orderIndication: History of DVT (deep vein thrombosis) On: 01-Apr-2018 Request Comments: standing order PT (PROTHROMBIN TIME) ([id number]) : standing orderIndication: History of DVT (deep vein thrombosis) On: 31-Mar-2018 Request Comments: standing order PT (PROTHROMBIN TIME) ([id number]) : standing orderIndication: History of DVT (deep vein thrombosis) On: 31-Mar-2018 Request Comments: standing order PT (PROTHROMBIN TIME) ([id number]) : standing orderIndication: History of DVT (deep vein thrombosis) On: 30-Mar-2018 Request Comments: standing order PT (PROTHROMBIN TIME) ([id number]) : standing orderIndication: History of DVT (deep vein thrombosis) On: 30-Mar-2018 Request Comments: standing order PT (PROTHROMBIN TIME) ([id number]) : standing orderIndication: History of DVT (deep vein thrombosis) On: 29-Mar-2018 Request Comments: standing order PT (PROTHROMBIN TIME) ([id number]) : standing orderIndication: History of DVT (deep vein thrombosis) On: 29-Mar-2018 Request Comments: standing order PT (Prothrobim Time) ([id number])Indication: Anticoagulated on Coumadin On: 28-Mar-2018 Request PT (PROTHROMBIN TIME) ([id number]) : standing orderIndication: History of DVT (deep vein thrombosis) On: 28-Mar-2018 Request Comments: standing order PT (PROTHROMBIN TIME) ([id number]) : standing orderIndication: History of DVT (deep vein thrombosis) On: 28-Mar-2018 Request Comments: standing order PT (PROTHROMBIN TIME) ([id number]) : standing orderIndication: History of DVT (deep vein thrombosis) On: 27-Mar-2018 Request Comments: standing order PT (PROTHROMBIN TIME) ([id number]) : standing orderIndication: History of DVT (deep vein thrombosis) On: 27-Mar-2018 Request Comments: standing order PT (PROTHROMBIN TIME) ([id number]) : standing orderIndication: History of DVT (deep vein thrombosis) On: 26-Mar-2018 Request Comments: standing order PT (PROTHROMBIN TIME) ([id number]) : standing orderIndication: History of DVT (deep vein thrombosis) On: 26-Mar-2018 Request Comments: standing order PT (PROTHROMBIN TIME) ([id number]) : standing orderIndication: History of DVT (deep vein thrombosis) On: 25-Mar-2018 Request Comments: standing order PT (PROTHROMBIN TIME) ([id number]) : standing orderIndication: History of DVT (deep vein thrombosis) On: 25-Mar-2018 Request Comments: standing order PT (PROTHROMBIN TIME) ([id number]) : standing orderIndication: History of DVT (deep vein thrombosis) On: 24-Mar-2018 Request Comments: standing order PT (PROTHROMBIN TIME) ([id number]) : standing orderIndication: History of DVT (deep vein thrombosis) On: 24-Mar-2018 Request Comments: standing order PT (PROTHROMBIN TIME) ([id number]) : standing orderIndication: History of DVT (deep vein thrombosis) On: 23-Mar-2018 Request Comments: standing order PT (PROTHROMBIN TIME) ([id number]) : standing orderIndication: History of DVT (deep vein thrombosis) On: 23-Mar-2018 Request Comments: standing order PT (PROTHROMBIN TIME) ([id number]) : standing orderIndication: History of DVT (deep vein thrombosis) On: 22-Mar-2018 Request Comments: standing order PT (PROTHROMBIN TIME) ([id number]) : standing orderIndication: History of DVT (deep vein thrombosis) On: 22-Mar-2018 Request Comments: standing order PT (Prothrobim Time) ([id number])Indication: Anticoagulated on Coumadin On: 21-Mar-2018 Request PT (PROTHROMBIN TIME) ([id number]) : standing orderIndication: History of DVT (deep vein thrombosis) On: 21-Mar-2018 Request Comments: standing order PT (PROTHROMBIN TIME) ([id number]) : standing orderIndication: History of DVT (deep vein thrombosis) On: 21-Mar-2018 Request Comments: standing order PT (PROTHROMBIN TIME) ([id number]) : standing orderIndication: History of DVT (deep vein thrombosis) On: 20-Mar-2018 Request Comments: standing order PT (PROTHROMBIN TIME) ([id number]) : standing orderIndication: History of DVT (deep vein thrombosis) On: 20-Mar-2018 Request Comments: standing order PT (PROTHROMBIN TIME) ([id number]) : standing orderIndication: History of DVT (deep vein thrombosis) On: 19-Mar-2018 Request Comments: standing order PT (PROTHROMBIN TIME) ([id number]) : standing orderIndication: History of DVT (deep vein thrombosis) On: 19-Mar-2018 Request Comments: standing order PT (PROTHROMBIN TIME) ([id number]) : standing orderIndication: History of DVT (deep vein thrombosis) On: 18-Mar-2018 Request Comments: standing order PT (PROTHROMBIN TIME) ([id number]) : standing orderIndication: History of DVT (deep vein thrombosis) On: 18-Mar-2018 Request Comments: standing order PT (PROTHROMBIN TIME) ([id number]) : standing orderIndication: History of DVT (deep vein thrombosis) On: 17-Mar-2018 Request Comments: standing order PT (PROTHROMBIN TIME) ([id number]) : standing orderIndication: History of DVT (deep vein thrombosis) On: 17-Mar-2018 Request Comments: standing order PT (PROTHROMBIN TIME) ([id number]) : standing orderIndication: History of DVT (deep vein thrombosis) On: 16-Mar-2018 Request Comments: standing order PT (PROTHROMBIN TIME) ([id number]) : standing orderIndication: History of DVT (deep vein thrombosis) On: 16-Mar-2018 Request Comments: standing order PT (PROTHROMBIN TIME) ([id number]) : standing orderIndication: History of DVT (deep vein thrombosis) On: 15-Mar-2018 Request Comments: standing order PT (PROTHROMBIN TIME) ([id number]) : standing orderIndication: History of DVT (deep vein thrombosis) On: 15-Mar-2018 Request Comments: standing order PT (Prothrobim Time) ([id number])Indication: Anticoagulated on Coumadin On: 14-Mar-2018 Request PT (PROTHROMBIN TIME) ([id number]) : standing orderIndication: History of DVT (deep vein thrombosis) On: 14-Mar-2018 Request Comments: standing order PT (PROTHROMBIN TIME) ([id number]) : standing orderIndication: History of DVT (deep vein thrombosis) On: 14-Mar-2018 Request Comments: standing order PT (PROTHROMBIN TIME) ([id number]) : standing orderIndication: History of DVT (deep vein thrombosis) On: 13-Mar-2018 Request Comments: standing order PT (PROTHROMBIN TIME) ([id number]) : standing orderIndication: History of DVT (deep vein thrombosis) On: 13-Mar-2018 Request Comments: standing order PT (PROTHROMBIN TIME) ([id number]) : standing orderIndication: History of DVT (deep vein thrombosis) On: 12-Mar-2018 Request Comments: standing order PT (PROTHROMBIN TIME) ([id number]) : standing orderIndication: History of DVT (deep vein thrombosis) On: 12-Mar-2018 Request Comments: standing order PT (PROTHROMBIN TIME) ([id number]) : standing orderIndication: History of DVT (deep vein thrombosis) On: 11-Mar-2018 Request Comments: standing order PT (PROTHROMBIN TIME) ([id number]) : standing orderIndication: History of DVT (deep vein thrombosis) On: 11-Mar-2018 Request Comments: standing order PT (PROTHROMBIN TIME) ([id number]) : standing orderIndication: History of DVT (deep vein thrombosis) On: 10-Mar-2018 Request Comments: standing order PT (PROTHROMBIN TIME) ([id number]) : standing orderIndication: History of DVT (deep vein thrombosis) On: 10-Mar-2018 Request Comments: standing order PT (PROTHROMBIN TIME) ([id number]) : standing orderIndication: History of DVT (deep vein thrombosis) On: 09-Mar-2018 Request Comments: standing order PT (PROTHROMBIN TIME) ([id number]) : standing orderIndication: History of DVT (deep vein thrombosis) On: 09-Mar-2018 Request Comments: standing order PT (PROTHROMBIN TIME) ([id number]) : standing orderIndication: History of DVT (deep vein thrombosis) On: 08-Mar-2018 Request Comments: standing order PT (PROTHROMBIN TIME) ([id number]) : standing orderIndication: History of DVT (deep vein thrombosis) On: 08-Mar-2018 Request Comments: standing order PT (Prothrobim Time) ([id number])Indication: Anticoagulated on Coumadin On: 07-Mar-2018 Request PT (PROTHROMBIN TIME) ([id number]) : standing orderIndication: History of DVT (deep vein thrombosis) On: 07-Mar-2018 Request Comments: standing order PT (PROTHROMBIN TIME) ([id number]) : standing orderIndication: History of DVT (deep vein thrombosis) On: 07-Mar-2018 Request Comments: standing order PT (PROTHROMBIN TIME) ([id number]) : standing orderIndication: History of DVT (deep vein thrombosis) On: 06-Mar-2018 Request Comments: standing order PT (PROTHROMBIN TIME) ([id number]) : standing orderIndication: History of DVT (deep vein thrombosis) On: 06-Mar-2018 Request Comments: standing order PT (PROTHROMBIN TIME) ([id number]) : standing orderIndication: History of DVT (deep vein thrombosis) On: 05-Mar-2018 Request Comments: standing order PT (PROTHROMBIN TIME) ([id number]) : standing orderIndication: History of DVT (deep vein thrombosis) On: 05-Mar-2018 Request Comments: standing order PT (Prothrobim Time) ([id number])Indication: History of DVT (deep vein thrombosis) On: 08-Dbo-93154:49 Request Comments: INR PT (PROTHROMBIN TIME) ([id number]) : standing orderIndication: History of DVT (deep vein thrombosis) On: 04-Mar-2018 Request Comments: standing order PT (PROTHROMBIN TIME) ([id number]) : standing orderIndication: History of DVT (deep vein thrombosis) On: 04-Mar-2018 Request Comments: standing order PT (PROTHROMBIN TIME) ([id number]) : standing orderIndication: History of DVT (deep vein thrombosis) On: 03-Mar-2018 Request Comments: standing order PT (PROTHROMBIN TIME) ([id number]) : standing orderIndication: History of DVT (deep vein thrombosis) On: 03-Mar-2018 Request Comments: standing order PT (PROTHROMBIN TIME) ([id number])Indication: History of DVT (deep vein thrombosis) On: 44-Qzo-014753:54 Request PT (PROTHROMBIN TIME) ([id number]) : standing orderIndication: History of DVT (deep vein thrombosis) On: 89-Yue-220186:48 Request Comments: standing order PT (Prothrobim Time) ([id number])Indication: Anticoagulated on Coumadin On: 28-Feb-2018 Request PT (Prothrobim Time) ([id number])Indication: Anticoagulated on Coumadin On: 21-Feb-2018 Request PT (Prothrobim Time) ([id number])Indication: Anticoagulated on Coumadin On: 14-Feb-2018 Request YURIY (ANTINUCLEAR ANTIBODY) ([id number])Indication: Leukopenia On: 0-Ccs-589630:30 Request Comments: give lab slips UPEP ([id number])Indication: Leukopenia On: 0-Eay-399008:30 Request Comments: give lab slips SPEP ([id number])Indication: Leukopenia On: 9-Vtd-233306:29 Request Comments: give lab slips PT (Prothrobim Time) ([id number])Indication: Anticoagulated on Coumadin On: 07-Feb-2018 Request PT (Prothrobim Time) ([id number])Indication: Anticoagulated on Coumadin On: 31-Jan-2018 Request PT (Prothrobim Time) ([id number])Indication: Anticoagulated on Coumadin On: 24-Jan-2018 Request PT (Prothrobim Time) ([id number])Indication: Anticoagulated on Coumadin On: 17-Jan-2018 Request PT (Prothrobim Time) ([id number])Indication: Anticoagulated on Coumadin On: 10-Jan-2018 Request PT (Prothrobim Time) ([id number])Indication: Anticoagulated on Coumadin On: 03-Jan-2018 Request PT (Prothrobim Time) ([id number])Indication: Anticoagulated on Coumadin On: 27-Dec-2017 Request PT (Prothrobim Time) ([id number])Indication: Anticoagulated on Coumadin On: 20-Dec-2017 Request BILIRUBIN, TOTAL ([id number])Indication: Encounter for screening for lipid disorder On: 57-Yfo-748419:28 Request BILIRUBIN, DIRECT ([id number])Indication: Encounter for screening for lipid disorder On: 67-Tiz-727069:28 Request CBC, PLATELETS & AUT DIFF ([id number])Indication: Encounter for screening for lipid disorder On: 51-Oix-988727:47 Request Metabolic Panel, Comprehensive ([id number])Indication: Encounter for screening for lipid disorder On: 52-Zlv-50818:10 Request CBC & PLATELETS (AUTO) ([id number])Indication: Encounter for screening for lipid disorder On: 69-Lcd-33003:10 Request LIPID PANEL ([id number])Indication: Encounter for screening for lipid disorder On: 94-Gca-16785:09 Request PT (Prothrobim Time) ([id number])Indication: Anticoagulated on Coumadin On: 13-Dec-2017 Request PT (Prothrobim Time) ([id number])Indication: Anticoagulated on Coumadin On: 06-Dec-2017 Request PT (Prothrobim Time) ([id number])Indication: Anticoagulated on Coumadin On: 29-Nov-2017 Request PT (Prothrobim Time) ([id number])Indication: Anticoagulated on Coumadin On: 22-Nov-2017 Request PT (Prothrobim Time) ([id number])Indication: Anticoagulated on Coumadin On: 15-Nov-2017 Request PT (Prothrobim Time) ([id number])Indication: Anticoagulated on Coumadin On: 08-Nov-2017 Request PT (Prothrobim Time) ([id number])Indication: Anticoagulated on Coumadin On: 01-Nov-2017 Request PT (Prothrobim Time) ([id number])Indication: Anticoagulated on Coumadin On: 25-Oct-2017 Request PT (Prothrobim Time) ([id number])Indication: Anticoagulated on Coumadin On: 18-Oct-2017 Request PT (Prothrobim Time) ([id number])Indication: Anticoagulated on Coumadin On: 11-Oct-2017 Request PT (Prothrobim Time) ([id number])Indication: Anticoagulated on Coumadin On: 04-Oct-2017 Request PT (Prothrobim Time) ([id number])Indication: Anticoagulated on Coumadin On: 27-Sep-2017 Request PT (Prothrobim Time) ([id number])Indication: Anticoagulated on Coumadin On: 20-Sep-2017 Request PT (Prothrobim Time) ([id number])Indication: Anticoagulated on Coumadin On: 13-Sep-2017 Request PT (Prothrobim Time) ([id number])Indication: Anticoagulated on Coumadin On: 06-Sep-2017 Request PT (Prothrobim Time) ([id number])Indication: Anticoagulated on Coumadin On: 30-Aug-2017 Request PT (Prothrobim Time) ([id number])Indication: Anticoagulated on Coumadin On: 23-Aug-2017 Request PT (Prothrobim Time) ([id number])Indication: Anticoagulated on Coumadin On: 16-Aug-2017 Request PT (Prothrobim Time) ([id number])Indication: Anticoagulated on Coumadin On: 09-Aug-2017 Request PT (Prothrobim Time) ([id number])Indication: Anticoagulated on Coumadin On: 02-Aug-2017 Request PT (Prothrobim Time) ([id number])Indication: Anticoagulated on Coumadin On: 26-Jul-2017 Request PT (Prothrobim Time) ([id number])Indication: Anticoagulated on Coumadin On: 19-Jul-2017 Request PT (Prothrobim Time) ([id number])Indication: Anticoagulated on Coumadin On: 12-Jul-2017 Request PT (Prothrobim Time) ([id number])Indication: Anticoagulated on Coumadin On: 05-Jul-2017 Request PT (Prothrobim Time) ([id number])Indication: Anticoagulated on Coumadin On: 28-Jun-2017 Request PT (Prothrobim Time) ([id number])Indication: Anticoagulated on Coumadin On: 21-Jun-2017 Request PT (Prothrobim Time) ([id number])Indication: Anticoagulated on Coumadin On: 14-Jun-2017 Request PT (Prothrobim Time) ([id number])Indication: Anticoagulated on Coumadin On: 07-Jun-2017 Request PT (Prothrobim Time) ([id number])Indication: Anticoagulated on Coumadin On: 31-May-2017 Request PT (Prothrobim Time) ([id number])Indication: Anticoagulated on Coumadin On: 25-May-2017 Request PT (Prothrobim Time) ([id number])Indication: Anticoagulated on Coumadin On: 25-May-2017 Request PT (Prothrobim Time) ([id number])Indication: Anticoagulated on Coumadin On: 24-May-2017 Request PT (Prothrobim Time) ([id number])Indication: Anticoagulated on Coumadin On: 17-May-2017 Request PT (Prothrobim Time) ([id number])Indication: Anticoagulated on Coumadin On: 10-May-2017 Request PT (Prothrobim Time) ([id number])Indication: Anticoagulated on Coumadin On: 03-May-2017 Request PT (Prothrobim Time) ([id number])Indication: Anticoagulated on Coumadin On: 26-Apr-2017 Request PT (Prothrobim Time) ([id number])Indication: Anticoagulated on Coumadin On: 25-Apr-2017 Request PT (Prothrobim Time) ([id number])Indication: Anticoagulated on Coumadin On: 25-Apr-2017 Request PT (Prothrobim Time) ([id number])Indication: Anticoagulated on Coumadin On: 19-Apr-2017 Request PT (Prothrobim Time) ([id number])Indication: Anticoagulated on Coumadin On: 12-Apr-2017 Request PT (Prothrobim Time) ([id number])Indication: Anticoagulated on Coumadin On: 05-Apr-2017 Request PT (Prothrobim Time) ([id number])Indication: Anticoagulated on Coumadin On: 29-Mar-2017 Request PT (Prothrobim Time) ([id number])Indication: Anticoagulated on Coumadin On: 26-Mar-2017 Request PT (Prothrobim Time) ([id number])Indication: Anticoagulated on Coumadin On: 26-Mar-2017 Request PT (Prothrobim Time) ([id number])Indication: Anticoagulated on Coumadin On: 22-Mar-2017 Request PT (Prothrobim Time) ([id number])Indication: Anticoagulated on Coumadin On: 15-Mar-2017 Request PT (Prothrobim Time) ([id number])Indication: Anticoagulated on Coumadin On: 08-Mar-2017 Request PT (Prothrobim Time) ([id number])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 therapy) On: 02-Vun-298336:48 Request Comments: Standing order PT (Prothrobim Time) ([id number])Indication: Anticoagulated on Coumadin On: 01-Mar-2017 Request PT (Prothrobim Time) ([id number])Indication: Anticoagulated on Coumadin On: 24-Feb-2017 Request PT (Prothrobim Time) ([id number])Indication: Anticoagulated on Coumadin On: 24-Feb-2017 Request PT (Prothrobim Time) ([id number])Indication: Anticoagulated on Coumadin On: 22-Feb-2017 Request PT (Prothrobim Time) ([id number])Indication: Anticoagulated on Coumadin On: 15-Feb-2017 Request PT (Prothrobim Time) ([id number])Indication: Anticoagulated on Coumadin On: 08-Feb-2017 Request PT (Prothrobim Time) ([id number])Indication: Anticoagulated on Coumadin On: 01-Feb-2017 Request PT (Prothrobim Time) ([id number])Indication: Anticoagulated on Coumadin On: 25-Jan-2017 Request PT (Prothrobim Time) ([id number])Indication: Anticoagulated on Coumadin On: 25-Jan-2017 Request PT (Prothrobim Time) ([id number])Indication: Anticoagulated on Coumadin On: 25-Jan-2017 Request PT (Prothrobim Time) ([id number])Indication: Anticoagulated on Coumadin On: 18-Jan-2017 Request PT (Prothrobim Time) ([id number])Indication: Anticoagulated on Coumadin On: 11-Jan-2017 Request PT (Prothrobim Time) ([id number])Indication: Anticoagulated on Coumadin On: 04-Jan-2017 Request PT (Prothrobim Time) ([id number])Indication: Anticoagulated on Coumadin On: 28-Dec-2016 Request PT (Prothrobim Time) ([id number])Indication: Anticoagulated on Coumadin On: 26-Dec-2016 Request PT (Prothrobim Time) ([id number])Indication: Anticoagulated on Coumadin On: 26-Dec-2016 Request PT (Prothrobim Time) ([id number])Indication: Anticoagulated on Coumadin On: 21-Dec-2016 Request PT (Prothrobim Time) ([id number])Indication: Anticoagulated on Coumadin On: 14-Dec-2016 Request PT (Prothrobim Time) ([id number])Indication: Anticoagulated on Coumadin On: 07-Dec-2016 Request PT (Prothrobim Time) ([id number])Indication: Anticoagulated on Coumadin On: 30-Nov-2016 Request PT (Prothrobim Time) ([id number])Indication: Anticoagulated on Coumadin On: 26-Nov-2016 Request PT (Prothrobim Time) ([id number])Indication: Anticoagulated on Coumadin On: 26-Nov-2016 Request PT (Prothrobim Time) ([id number])Indication: Anticoagulated on Coumadin On: 23-Nov-2016 Request PT (Prothrobim Time) ([id number])Indication: Anticoagulated on Coumadin On: 16-Nov-2016 Request PT (Prothrobim Time) ([id number])Indication: Anticoagulated on Coumadin On: 09-Nov-2016 Request PT (Prothrobim Time) ([id number])Indication: Anticoagulated on Coumadin On: 02-Nov-2016 Request PT (Prothrobim Time) ([id number])Indication: Anticoagulated on Coumadin On: 27-Oct-2016 Request PT (Prothrobim Time) ([id number])Indication: Anticoagulated on Coumadin On: 27-Oct-2016 Request PT (Prothrobim Time) ([id number])Indication: Anticoagulated on Coumadin On: 26-Oct-2016 Request PT (Prothrobim Time) ([id number])Indication: Anticoagulated on Coumadin On: 19-Oct-2016 Request PT (Prothrobim Time) ([id number])Indication: Anticoagulated on Coumadin On: 12-Oct-2016 Request PT (Prothrobim Time) ([id number])Indication: Anticoagulated on Coumadin On: 05-Oct-2016 Request PT (Prothrobim Time) ([id number])Indication: Anticoagulated on Coumadin On: 28-Sep-2016 Request PT (Prothrobim Time) ([id number])Indication: Anticoagulated on Coumadin On: 27-Sep-2016 Request PT (Prothrobim Time) ([id number])Indication: Anticoagulated on Coumadin On: 27-Sep-2016 Request PT (Prothrobim Time) ([id number])Indication: Anticoagulated on Coumadin On: 21-Sep-2016 Request PT (Prothrobim Time) ([id number])Indication: Anticoagulated on Coumadin On: 14-Sep-2016 Request PT (Prothrobim Time) ([id number])Indication: Anticoagulated on Coumadin On: 07-Sep-2016 Request PT (Prothrobim Time) ([id number])Indication: Anticoagulated on Coumadin On: 31-Aug-2016 Request PT (Prothrobim Time) ([id number])Indication: Anticoagulated on Coumadin On: 28-Aug-2016 Request PT (Prothrobim Time) ([id number])Indication: Anticoagulated on Coumadin On: 28-Aug-2016 Request PT (Prothrobim Time) ([id number])Indication: Anticoagulated on Coumadin On: 24-Aug-2016 Request PT (Prothrobim Time) ([id number])Indication: Anticoagulated on Coumadin On: 17-Aug-2016 Request PT (Prothrobim Time) ([id number])Indication: Anticoagulated on Coumadin On: 10-Aug-2016 Request PT (Prothrobim Time) ([id number])Indication: Anticoagulated on Coumadin On: 03-Aug-2016 Request PT (Prothrobim Time) ([id number])Indication: Anticoagulated on Coumadin On: 29-Jul-2016 Request PT (Prothrobim Time) ([id number])Indication: Anticoagulated on Coumadin On: 29-Jul-2016 Request PT (Prothrobim Time) ([id number])Indication: Anticoagulated on Coumadin On: 27-Jul-2016 Request PT (Prothrobim Time) ([id number])Indication: Anticoagulated on Coumadin On: 20-Jul-2016 Request PT (Prothrobim Time) ([id number])Indication: Anticoagulated on Coumadin On: 13-Jul-2016 Request PT (Prothrobim Time) ([id number])Indication: Anticoagulated on Coumadin On: 06-Jul-2016 Request Metabolic Panel, Comprehensive ([id number])Indication: Irritable Bowel Syndrome On: 26-Fge-507736:28 Request TSH ([id number])Indication: Irritable Bowel Syndrome On: 49-Bri-670554:28 Request CBC, Platelets & Auto Diff ([id number])Indication: Irritable Bowel Syndrome On: 80-Mxm-777986:28 Request PT (Prothrobim Time) ([id number])Indication: Anticoagulated on Coumadin On: 76-Syd-053245:24 Request PT (Prothrobim Time) ([id number])Indication: DVT (deep venous thrombosis) On: 94-Usr-211082:11 Request Comments: INR - STANDING ORDER Vitamin D Hydroxy ([id number])Indication: Osteoporosis On: 36-Iuj-905635:16 Request TSH ([id number])Indication: Osteoporosis On: 06-Vhz-090233:16 Request CBC with auto diff ([id number])Indication: Benign Essential Hypertension On: 11-Hiz-655021:16 Request METABOLIC PANEL, COMPREHENSIVE ([id number])Indication: Benign Essential Hypertension On: 78-Sdt-733131:16 Request LIPID PANEL ([id number])Indication: Hyperlipidemia On: 01-Htm-573011:16 Request CBC W/AUTO DIFF WBC ([id number])Indication: Benign Essential Hypertension On: :34 Request METABOLIC PANEL, COMPREHENSIVE ([id number])Indication: Benign Essential Hypertension On: :34 Request TSH ([id number])Indication: Osteoporosis On: :39 Request CBC W/AUTO DIFF WBC ([id number])Indication: Osteoporosis On: :39 Request LIPID PANEL ([id number])Indication: Hyperlipidemia On: :38 Request METABOLIC PANEL, COMPREHENSIVE ([id number])Indication: Benign Essential Hypertension On: :38 Request PT (Prothrobim Time) ([id number])Indication: DVT (deep venous thrombosis) On: 6-Ljl-981031:18 Request Comments: FINGER STICKSTANDING ORDER PT (Prothrobim Time) ([id number])Indication: DVT (deep venous thrombosis) On: 59-Wtv-397114:28 Request Comments: Standing Order URINALYSIS, W/ MICRO ([id number])Indication: Benign Essential Hypertension On: :37 Request METABOLIC PANEL, COMPREHENSIVE ([id number])Indication: Benign Essential Hypertension On: :37 Request LIPID PANEL ([id number])Indication: Hyperlipidemia On: :37 Request CBC W/AUTO DIFF WBC ([id number])Indication: DVT (deep venous thrombosis) On: :37 Request PT (Prothrobim Time) ([id number])Indication: DVT (deep venous thrombosis) On: 52-Vmd-426612:02 Request CBC WITH MANUAL DIFF ([id number])Indication: Benign Essential Hypertension On: :39 Request METABOLIC PANEL, COMPREHENSIVE ([id number])Indication: Hyperlipidemia On: :39 Request LIPID PANEL ([id number])Indication: Hyperlipidemia On: :39 Request PT (Prothrobim Time) ([id number])Indication: DVT (deep venous thrombosis) On: 12-Cud-08358:07 Request Comments: pls call provider relations manager Dr Hunter with results on 05/20/13 PT (Prothrobim Time) ([id number])Indication: DVT (deep venous thrombosis) On: 64-Dmq-892455:00 Request Comments: Standing Order PT (Prothrobim Time) ([id number])Indication: DVT (deep venous thrombosis) On: 41-Jyp-55727:59 Request Comments: INR - STANDING ORDER x 1 year URINALYSIS, W/ MICRO ([id number])Indication: Benign Essential Hypertension On: :15 Request CBC WITH MANUAL DIFF ([id number])Indication: Benign Essential Hypertension On: :15 Request METABOLIC PANEL, COMPREHENSIVE ([id number])Indication: Benign Essential Hypertension On: :14 Request LIPID PANEL ([id number])Indication: Hyperlipidemia On: :14 Request METABOLIC PANEL, COMPREHENSIVE ([id number])Indication: Benign Essential Hypertension On: :06 Request LIPID PANEL ([id number])Indication: Hyperlipidemia On: 08-Wuo-12705:06 Request URINE HANNAH CULTURE-IDENTIFICATN ([id number])Indication: Urinary frequency On: 07-Sep-20128:56 Request URINE HANNAH CULTURE-IDENTIFICATN ([id number])Indication: Insect bite On: 42-Sjz-667052:19 Request Lyme Disease,Serum, Western Blot ([id number])Indication: Insect bite On: 66-Gbb-115684:19 Request PT (Prothrobim Time) ([id number])Indication: DVT (deep venous thrombosis) On: 87-Zto-762274:59 Request Comments: standing order LIPID PANEL ([id number])Indication: FAMILY HISTORY OF ISCHEMIC HEART DISEASE On: 13-Xmg-544069:28 Request LIPID PANEL ([id number])Indication: FAMILY HISTORY OF ISCHEMIC HEART DISEASE On: 0-Psq-870675:51 Request Vitamin D Hydroxy ([id number])Indication: Osteoporosis On: 8-Gxt-492856:18 Request TSH ([id number])Indication: Osteoporosis On: :18 Request URINALYSIS, W/ MICRO ([id number])Indication: Osteoporosis On: :18 Request CBC WITH MANUAL DIFF ([id number])Indication: Osteoporosis On: 1-Pjr-689072:18 Request METABOLIC PANEL, COMPREHENSIVE ([id number])Indication: Osteoporosis On: 1-Edw-967451:18 Request PTT (Activated Partial Thromboplastin Time) ([id number])Indication: DVT (deep venous thrombosis) On: 1-Paa-747835:16 Request PT (Prothrobim Time) ([id number])Indication: DVT (deep venous thrombosis) On: 9-Znm-061230:16 Request Planned Encounters Medical; 3 Month FU - On: 17-May-2018 8:30 [facility] Selam Blair CNP, CNP, Mary E Planned Procedures DOPPLER ULTRASOUND OF LEFT LOWER On: 14-Feb-2018 Intent EXTREMITY FOR VENOUS THROMBOEMBOLISM Comments: STAT R/O DVT-Hx of DVT ([id number])By: Sigrid Mobley DEXA SCAN AXIAL SKELETON ([id number])By: On: 17-Dec-2017 Intent Selam Blair CNP, CNP, Mary E Aerosol Treatment ([id number])By: Johnnie On: 02-Jun-2017 Intent Selam DAVIES CNP, Mary E Ultrasound - LiverBy: Selam Blair CNP On: 15-Dec-2016 Intent E Selam Blair CNP Aerosol Treatment ([id number])By: Johnnie On: 13-Oct-2016 Intent Selam DAVIES E Selam Blair CNP Aerosol Treatment ([id number])By: Aleksey On: 19-Feb-2015 Intent Eliana HOFFMANN Ultrasound - AortaBy: Helen Barnes DO On: 18-Dec-2014 Intent EKG ([id number])By: Helen Barnes DO On: 05-Nov-2014 Intent Comments: ekg showed normal sinus rhythym, normal axis, no acute st/t wave changes BILATERAL MAMMOGRAMS ([id number])By: Timothy On: 17-Sep-2014 Intent Helen BIRMINGHAM Radiology - Shoulder - LeftBy: Bonelanii On: 05-Mar-2014 Intent Fatimah RANDLE Comments: if not better with PT MAMMOGRAM, SCREENING, BOTH BREASTS On: 08-Aug-2013 Intent ([id number])By: Helen Barnes DO Eprescribed prescriptions ([id number])By: On: 08-Aug-2013 Intent Helen Barnes DO DXA, BONE DENSITY, AXIAL SKELETON On: 21-Oct-2012 Intent ([id number])By: Helen Barnes DO Comments: - mar Eprescribed prescriptions ([id number])By: On: 21-Oct-2012 Intent So Bailey Breast Screening - BilateralBy: Timothy On: 19-Sep-2012 Intent Helen [place] Eprescribed prescriptions ([id number])By: On: 30-Aug-2012 Intent So Bailey Spirometry ([id number])By: Helen Barnes DO On: 11-Mar-2012 Intent A Comments: good effort and curve mild obst- Doppler Ultrasound OtherBy: Timothy [place], On: 11-Mar-2012 Intent Helen Coley Comments: both legs- stat call results Eprescribed prescriptions ([id number])By: On: 11-Mar-2012 Intent So Bailey TD Injection , IM ([id number])By: Leo, On: 11-Mar-2012 Intent So Comments: 2003 FLU VAC, SPLIT, >3 YEARS, INTRAMUSC On: 11-Mar-2012 Intent ([id number])By: So Bailey Comments: got at [facility] Instructions Name Dates Details BMI 22.0-22.9, adult [...] Coumadin : DISCONTINUED - PT (PROTHROMBIN TIME) ([id number]) Indication: Anticoagulated on Coumadin Irritable Bowel Syndrome [...] 07-Feb-2018 13:34 Nonsmoker, BMI 22.0-22.9, adult, Leukopenia, 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 The patient has noticed nothing from the geriatic depression scale. Other providers contributing to the patient's care are garment sorter (dr. meseret [place]) and other: (eye- dr. [...] Medicine Annotation/Addendum On: 01-Mar-2017 12:47 Encounter Diagnosis: group home (current) use of anticoagulants (Renamed from group home current use of anticoagulant therapy) End: 01-Mar-2017 [...] patient does not have durable power of divorce attorney or living will . The patient has noticed nothing from the geriatic depression scale. Other providers contributing to the patient's care are other: (dr crawford for eyes). Note for Annual Medicare Exam: Pt has WWE done by her [employer].Refuses flu shotRefuses pnumonia or LymeEncounter Diagnosis: Nonsmoker, BMI 21.0-21.9, adult, Encounter for annual general medical examination with abnormal findings in adult, group home (current) use of anticoagulants (Renamed from group home current use of anticoagulant therapy), Liver cyst [facility] Phone Encounter On: 09-Nov-2016 16:54 [facility] End: 09-Nov-2016 16:55 Phone Encounter On: 15-Oct-2016 12:40 Encounter Diagnosis: [place] [facility] End: 15-Oct-2016 12:42 [facility] [...] her to start on linzess. Saw surgeron Williamson CT of pelvis and abd with contrast, [...] patient does not have durable power of divorce attorney. The p atient has noticed nothing from the geriatic depression scale. Other providers contributing to the patient's care are other: (ENT and dr crawford for eyes). Note for Annual Medicare Exam: Pt has WWE done by her [employer]., [ADDITIONAL REASON] Follow up for chronic medical [...]
--- OUTSIDE RECORDS SUMMARY | 2018-06-27 17:55 | XMS RPT_ITS | Continuity of Care Document ---
:1950 Author Organization [facility] Address [facility] [address] [place] [address] Phone Care Team Providers Name Role Phone Riddhiraul SAMSONSelam E Unavailable Dr. Meseret Santana MD Unavailable Paola Lara Unavailable Unavailable Aida Keen LPN Unavailable Unavailable Sigrid Mobley Unavailable Unavailable Unavailable Unavailable Problems Name Dates Details Abortions/Miscarriages Comments: 1. 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 current use of anticoagulant therapy) (Z79.01, V58.61) [...] Diagnosis Status: Active Unspecified Diagnosis Status: Active Upper respiratory disease (J39.9, 478.9) Status: Active Medications Name Dates Details Acyclovir 400 MG Oral Tablet 2 (two) Tablet daily for 0 days Quantity: 180 {Tablet} Refills: 3 Ordered:13-Sep-2017 Selam Blair CNP, CNP, Mary E Start : 13-Sep-2017 Active Augmentin 875-125 MG Oral Tablet 1 (one) Tablet PO BID for 10 days Quantity: 20 {Tablet} Refills: 0 Ordered:21-Apr-2018 Sigrid Mobley Start : 21-Apr-2018 Active Comments:Take with food Calcium 1200 8783-0877 MG-UNIT Oral Tablet Chewable daily (9781-4187 MG-UNIT) Active Cinnamon 500 MG Oral Capsule 2caps qd (500 MG) Active Coumadin 1 MG Oral Tablet 1 (one) Tablet qd as directed for 90 days Quantity: 90 {Tablet} Refills: 3 Ordered:14-Sep-2017 Selam Blair CNP COATER OPERATOR, Selam Latif Start : 14-Sep-2017 Active Coumadin 5 MG Oral Tablet 1 (one) Tablet Tablet qd as directed for 0 days Quantity: 90 {Tablet} Refills: 3 Ordered:13-Dec-2017 Johnnie DAVIES, Selam Taveras CNP, Selam Latif Start : 13-Dec-2017 Active DICYCLOMINE HCL, 20MG (Oral Tablet) 1 tab Tablet q 4hrs, prn for 0 days Quantity: 30 {Tablet} Refills: 1 Ordered:18-Dec-2014 So Bailey Start : 08-Aug-2013 Active Lasix 20 MG Oral Tablet 1 tab Tablet qd, prn for swelling for 0 days Quantity: 30 {Tablet} Refills: 1 Ordered:17-Dec-2017 Johnnie DAVIES, Selam Taveras CNP, Selam Latif Start : 17-Dec-2017 Active Latanoprost [...] 500MG (Oral Tablet) 1 (one) Tablet bid j38xbow for 10 days Quantity: 20 {Tablet} Refills: [...] days Quantity: 90 {Tablet} Refills: 0 Ordered:29-Jun-2016 Johnnie DAVIES, Selam Taevras CNP, Selam Latif Start : 29-Jun-2016 End : 29-Jul-2016 Inactive [...] Comments: chronic stable-continue present regimen, uses miralax prAugust Arzola and Mehnaz Status: Resolved as of 15-Dec-2016 Need for prophylactic vaccination and inoculation against influenza (Z23, V04.81) Status: Inactive as of 05-Mar-2014 Osteopenia (M85.80, 733.90) Status: Inactive as of 11-Mar-2012 [place] eye (H10.029, 372.03) Status: Inactive as of [...] Status: Resolved as of 21-Oct-2012 Vaccine for pgkzfafano-sjztvya-alhoynizk with poliomyelitis (Z23, V06.3) Status: Inactive as of 21-Oct-2012 Procedures Procedure Dates Details Appendectomy Completed D&C Completed Comments: 2014- shriner Tonsillectomy Completed Tubal Ligation Completed Date Value Details 16-Feb-2018 Venous Duplex Lower Extremity Result: Comments: See Note; NOTES: [facility] Cardiovascular Services [address] [place] [address] Venous Duplex US, Unilateral 02/15/18 1350 MR#: [id number] Acct: [id number] Name: YAHAIRA ENG Rep #: [id number] : 1950 67 From: Tony Valentino MD Attending Dr: PEGGY CruzC Status: REG CLI Ordering Dr: Sigrid Mobley [...] KRISTIAN Cruz Performed By: Nigel Mcguire, RVT 02/16/1813 Date Tony Valentino MD CC: Selam Blair NP; KRISTIAN Lebron Date Dictated: 02/15/18 1350 Date Transcribed: 02/16/18 0813 Supervisor Phosphoric Acid: Signed 23-Dec-2017 Dexa Bone Density Study Result: Comments: See Note; NOTES: [facility] Imaging Services [address] [place] [address] Dexa Bone Density Study MR#: [id number] Acct: [id number] Name: YAHAIRA BRYANT Rep #: [id number] : 1950 F 67 From: Cole Coronado MD PCP: Selam Blair NP Status: REG CLI Study: Dexa Bone Density Study Date of Exam: 12/23/17 Exam# [id number] Ordering Dr: Selam Blair STUDY: DUAL ENERGY [...] Cole Coronado MD at 8:50 EDT Tel [phone], Service support , CC: Selam Blair NP Supervisor Phosphoric Acid: Signed 07-Oct-2017 SCREENING MAMM (CAD), BILAT Result: Comments: See Note; NOTES: [facility] Imaging Services [address] [place] [address] SCREENING MAMM (CAD), BILAT MR#: [id number] Acct: [id number] Name: YAHAIRA BRYANT Rep #: [id number] : 1950 F 67 From: Cole Coronado MD PCP: Selam Blair NP Status: REG CLI Study: SCREENING MAMM (CAD), BILAT Date of Exam: 10/07/17 Exam# [id number] Ordering Dr: Aliza Santana MD MAMMOGRAPHY - [...] delay biopsy of a clinically suspicious abnormality. [id number] Electronically Signed: Cole Coronado MD at 11:23 EDT Tel [phone], Service support , CC: Selam Blair NP; Aliza Santana MD Supervisor Phosphoric Acid: Signed 23-Sep-2017 Downtime Report Result: Comments: See Note; NOTES: [facility] Medical Records Department [address] [place] [address] Downtime Report MR#: [id number] Acct: [id number] Name: YAHAIRA BRYANT R Rep #: : 1950 67 From: Jered Kumar PCP: Selam Blair NP Status: REG CLI This patient was seen during an EMR downtime September 06, 2017 - September 13, 2017. This patient may have a combination of p aper and electronic documentation or all paper documentation. All documentation is viewable within the e-chart portion of [employer] for each patient visit. 16-Dec-2016 Liver Result: Comments: See Note; NOTES: [facility] Imaging Services [address] [place] [address] Liver MR#: [id number] Acct: [id number] Name: YAHAIRA BRYANT R Rep #: [id number] : 1950 F 66 From: Jose Mcghee MD PCP: Selam Blair Status: REG CLI Study: Liver Date of Exam: 12/16/16 Exam# [id number] Ordering Dr: Selam Blair STUDY: ABDOMINAL ULTRASOUND [...] MD at 16:28 EDT , Service support [phone], CC: Selam Blair Supervisor Phosphoric Acid: Signed 21-Dec-2014 Aorta Result: Comments: See Note; NOTES: [facility] Imaging Services [address] [place] [address] Ultrasound Report MR#: [id number] Acct: [id number] Name: YAHAIRA BRYANT Rep #: [id number] : 1950 F 64 From: Cole Coronado MD PCP: Helen Barnes DO Status: REG CLI Study: Aorta Date of Exam: 12/21/14 Exam# [id number] Ordering Dr: Helen Barnes DO PROCEDURES: ULTRASOUN [...] Cole Coronado MD at 9:45 EDT Tel [phone], Service support [phone], CC: Helen Barnes DO Supervisor Phosphoric Acid: Signed 12-Dec-2014 Bilat Scrn Digital AND CAD Result: Comments: See Note; NOTES: [facility] Imaging Services [address] [place] [address] Breast Imaging Report MR#: [id number] Acct: [id number] Name: YAHAIRA BRYANT Rep # : [id number] : 1950 F 64 From: Gabino South MD PCP: Helen Barnes DO Status: REG CLI Study: Bilat Scrn Digital AND CAD Date of Exam: 12/12/14 Exam# [id number] Ordering Dr: Helen Barnes AMMOGRAPHY - BILATERAL SCREENING REASON FOR EXAM: [...] at 14:51 EDT Tel , Service support [phone], CC: Helen Barnes DO Supervisor Phosphoric Acid: Signed 12-Dec-2014 Bilat Scrn Digital AND CAD Result: Comments: See Note; NOTES: [facility] Imaging Services [address] [place] [address] Breast Imaging Report MR#: [id number] Acct: [id number] Name: YAHAIRA BRYANT Rep # : [id number] : 1950 F 64 From: Gabino South MD PCP: Helen Barnes DO Status: REG CLI Study: Bilat Scrn Digital AND CAD Date of Exam: 12/12/14 Exam# [id number] Ordering Dr: Helen Barnes DO A DDENDUM by Cole Coronado MD on 12/17/14 at 1003 ADDENDUM This is an addendum report for BI -RADS category. BI-RADS category 2. Electronically Signed: Cole Coronado MD at 10:03 EDT Tel [phone], Service support [phone], 12/17/14 1003 D ate cc: Helen Barnes [...] at 14:51 EDT Tel , Service support [phone], CC: Helen Barnes DO Supervisor Phosphoric Acid: Signed 03-Dec-2014 Operative Report Result: Comments: See Note; NOTES: [facility] Medical Records Department [address] [place] [address] Operative Report MR#: [id number] Acct: [id number] Name: YAHAIRA BRYANT Rep #: [id number] : 1950 64 From: Aliza Santana MD PCP: Helen Barnes DO Status: [facility] DATE OF SERVICE: 11/26/2014 DATE OF SERVICE: [...] time. Aliza Santana MD T: NTS JOB: [id number] 12/03/14 1321 <Electronically signed by An jamison Santana MD> Date Aliza Santana MD Cosigner Signature (If Indicated): Date CC: Aleyda Santana MD; Helen Barnes DO Date Dictated: 11/29/14918 Date Transcribed: 11/29/14918 Supervisor Phosphoric Acid: Signed 26-Nov-2014 Discharge Instruction Result: Comments: See Note; NOTES: [facility] Medical Records Department [address] [place] [address] Instructions for Home/Discharge Instructions 11/26/14 1200 MR#: [id number] ct: [id number] Name: YAHAIRA BRYANT Rep #: [id number] : 1950 64 From: Aliza Santana MD PCP: Helen Barnes DO Status: REG [facility] Discharge Diet: No Restrictions Discharge Activity: Return [...] Operative Report Result: Comments: See Note; NOTES: [facility] Medical Records Department [address] [place] [address] Operative Report 11/26/14 1159 MR#: [id number] Acct: [id number] Name: YAHAIRA DEJESUS Rep #: [id number] : 1950 64 From: Aliza Santana MD PCP: Helen Barnes DO Status: REG [facility] Y Location: [place] [address] Operative Report (Blank) Date of Procedure: 11/26/14 [...] MD; Helen Barnes DO Signed 05-Nov-2014 Spirometry (38718) Comments: good effort aand curve mild obstruction Result: 06-Jun-2014 Transvaginal Non- Result: Comments: See Note; NOTES: [facility] Imaging Services [address] [place] [address] Ultrasound Report MR#: [id number] Acct: [id number] Name: YAHAIRA BRYANT Rep #: [id number] : 1950 F 63 From: Telly Cruz DO PCP: Helen Barnes DO Status: REG CLI Study: Transvaginal Non- Date of Exam: 06/06/14 Exam# [id number] Ordering Dr: Izzy Becerra STUDY: ULTRASOUND TRANSVAGINAL [...] canal. E lectronically Signed: Jean Paul Flynn at 13:34 EST , Service support [phone], CC: Helen Barnes DO; Izzy Becerra MD Supervisor Phosphoric Acid: Signed 06-Jun-2014 Pelvic (Non ) Result: Comments: See Note; NOTES: [facility] Imaging Services [address] [place] [address] Ultrasound Report MR#: [id number] Acct: [id number] Name: YAHAIRA BRYANT Rep #: [id number] : 1950 F 63 From: Telly Cruz DO PCP: Helen Barnes DO Status: REG CLI Study: Pelvic (Non ) Date of Exam: 06/06/14 Exam# [id number] Ordering Dr: Izzy Becerra MD STUDY: ULTRASOUND [...] endometrial canal. Elect ronically Signed: Jean Paul FlynnDO at 13:34 EST , Service support [phone], CC: Helen Barnes DO; Izzy Becerra MD Supervisor Phosphoric Acid: Signed 11-Oct-2013 Bilat Scrn Digital & CAD Result: Comments: See Note; NOTES: [facility] Imaging Services [address] [place] [address] Breast Imaging Report MR#: [id number] Acct: [id number] Name: YAHAIRA BRYANT Rep #: [id number] : 1950 F 63 From: Bradly Lr MD PCP: Helen Barnes DO Status: REG CLI Exam# [id number] Ordering Dr: Helen Barnes DO MAMMOGRAPHY - [...] Bradly Lr MD at 10:37 EDT , [employer] support [phone], CC: Helen Barnes DO Supervisor Phosphoric Acid: Signed Family History Unknown Family Member Name [...] smoker Vital Signs Date Test Result Details :58 Temperature 97.6 f Comments: Method: Temporal Pulse 74 /min Comments: Pattern: Regular Respiration Rate 18 /min Comments: Pattern: Unlabored O2 SAT 99 % Comments: Room air BP Systolic 128 mm[Hg] Comments: Patient Position: Sitting; Cuff Location: Left Arm; Cuff Size: Standard BP Diastolic 68 mm[Hg] Comments: Patient Position: Sitting; Cuff Location: Left Arm; Cuff Size: Standard Weight 119.375 lb Height 61.5 in Body Mass Index Calculated 22.19 kg/m2 Body Surface Area Calculated 1.53 m2 37-Dpx-392916:23 Temperature 97.8 f Comments: Method: Temporal Pulse [...] kg/m2 Body Surface Area Calculated 1.53 m2 7-Acl-150805:56 Temperature 97.7 f Comments: Method: Temporal Pulse [...] Value Details :54 CBC W/Diff, Automated Comments: [facility] [address] [place], [address] Absolute Lymph 1.55 {X10_3/ul} (Normal) Range: 0.83-4.51 [...] 4.2-5.4 WBC 8.5 K/mm3 (Normal) Range: 4.4-11.0 :54 Prothrombin Time w/INR Comments: [facility] [address] [place], [address] INR 2.2 (Normal) PROTIME 24.5 s (Abnormal) Range: 11.7-14.9 80-Vwd-316068:33 Prothrombin Time w/INR Comments: [facility] [address] [place], [address] INR 2.9 (Normal) PROTIME 30.5 s (Abnormal) Range: 11.7-14.9 52-Vbw-476143:34 Prothrombin Time w/INR Comments: [facility] [address] [place], [address] INR 2.7 (Normal) PROTIME 29.2 s (Abnormal) Range: 11.7-14.9 11-Puf-330504:41 Prothrombin Time w/INR Comments: [facility] [address] [place], [address] INR 3.0 (Normal) PROTIME 31.4 s (Abnormal) Range: 11.7-14.9 9-Zyi-000440:17 ANTINUCLEAR ANTIBODIES DIRECT Comments: [facility] (refer to report for specific site)refer to report for address and phone number YURIY-DIRECT Negative (Normal) Comments: Performed at: [facility] [address] [id number] Director: Jairo Sears PhD, Phone: [phone] Protein Electro.Ur-Random Comments: [facility] (refer to report for specific site)refer to report for address and phone number NOTE Comment (Normal) Comments: Protein electrophoresis scan will follow via computer,mail, or sales relationship manager delivery.Performed at: [facility] [employer] [id number] Director: Jairo Sears PhD, Phone: [phone] M-SPIKE,U % (Normal) Comments: NOT BSERVED GAMMA GLOB,U 15.5 % (Normal) BETA GLOB,U 33.2 % (Normal) BDERQ-6-WLIH,U 9.5 % (Normal) WSAXH-3-XHYM,U 2.3 % (Normal) ALBUMIN,UR 39.4 % (Normal) PROTEIN,UR 8.3 mg/dL (Normal) 7-Nnk-838976:17 Protein Electroph, S Comments: [facility] (refer to report for specific site)refer to report for address and phone number NOTE: Comment (Normal) Comments: The SPE pattern appears essentially unremarkable. Evidenceof monoclonal protein is not apparent.Performed at: [address] [id number] Director: Jairo Sears PhD, Phone: [phone] INTERPRETATION Comment (Normal) Comments: Protein electrophoresis scan will follow via computer,mail, or sales relationship manager delivery. A/G RATIO 1.6 (Normal) Range: [...] Range: 6.0-8.5 :18 Prothrombin Time w/INR Comments: [facility] [address] [place], [place], [address] INR 2.7 (Normal) PROTIME 28.9 s (Abnormal) Range: 11.7-14.9 :58 Bilirubin, Direct Comments: [facility] [address] [place], [place], [id number] D BILI 0.18 mg/dL (Normal) Range: 0.00-0.30 :58 CBC W/Diff, Automated Comments: [facility] [address] [place], [place], [address] Absolute Lymph 1.49 {X10_3/ul} (Normal) Range: 0.83-4.51 [...] (Abnormal) Range: 4.4-11.0 :58 Total Bilirubin Comments: [facility] [address] [place], [place], [address] T BILI 0.80 mg/dL (Normal) Range: 0.20-1.00 1-Kxq-441149:14 Prothrombin Time w/INR Comments: [facility] [address] [place], [place], [address] INR 2.6 (Normal) PROTIME 27.6 s (Abnormal) Range: 11.7-14.9 96-Xap-594589:01 CBC W/Diff, Automated Comments: [facility] [address] [place], [place], [address] Absolute Lymph 1.26 {X10_3/ul} (Normal) Range: 0.83-4.51 [...] 4.2-5.4 WBC 3.3 K/mm3 (Abnormal) Range: 4.4-11.0 17-Toh-141339:01 Comprehensive Metabolic Profil Comments: [facility] [address] [place], [address] GAP 9 (Normal) Range: 5-15 CO2 28.0 [...] Comments: Please note revised GLUCOSE reference range ztupnjulj79/02/2018. 48-Wdy-339554:15 Prothrombin Time w/INR Comments: [facility] [address] [place], [address] INR 3.0 (Normal) PROTIME 31.3 s (Abnormal) Range: 11.7-14.9 71-Fzv-58642:26 Prothrombin Time w/INR Comments: [facility] [address] [place], [address] INR 2.8 (Normal) PROTIME 29.3 s (Abnormal) Range: 11.7-14.9 36-Enx-622928:50 Prothrombin Time w/INR Comments: [facility] [address] [place], [address] INR 2.7 (Normal) PROTIME 28.7 s (Abnormal) Range: 11.7-14.9 :35 Prothrombin Time w/INR Comments: [place] [address] [place], [address] INR 2.9 (Normal) PROTIME 30.2 s (Abnormal) Range: 11.7-14.9 :44 Prothrombin Time w/INR Comments: [place] [address] [place], [address] INR 2.9 (Normal) PROTIME 30.1 s (Abnormal) Range: 11.7-14.9 :55 Prothrombin Time w/INR Comments: [address] [place], [address] INR 2.8 (Normal) PROTIME 29.4 s (Abnormal) Range: 11.7-14.9 :10 Prothrombin Time w/INR Comments: [place] [address] [place], [address] INR 2.4 (Normal) PROTIME 26.2 s (Abnormal) Range: 11.7-14.9 :09 Prothrombin Time w/INR Comments: [place] [address] [place], [address] INR 1.1 (Normal) PROTIME 14.0 s (Normal) Range: 11.7-14.9 :29 Prothrombin Time w/INR Comments: RESULT(S) PREVIOUSLY REPORTED ON MANUAL REQUISITION DURINGDOWNTIME.[place] [address] [place], [address] INR 1.3 (Normal) PROTIME 16.4 s (Abnormal) Range: 11.7-14.9 :30 Prothrombin Time w/INR Comments: [facility] [address] [place], [address] INR 2.0 (Normal) PROTIME 22.9 s (Abnormal) Range: 11.7-14.9 :01 Prothrombin Time w/INR Comments: [facility] [address] [place], [address] INR 1.5 (Normal) PROTIME 18.0 s (Abnormal) Range: 11.7-14.9 :46 Prothrombin Time w/INR Comments: [place] [address] [place], [address] INR 1.9 (Normal) PROTIME 22.2 s (Abnormal) Range: 11.7-14.9 92-Zqd-835988:25 Prothrombin Time w/INR Comments: [place] [address] [place], [address] INR 1.9 (Normal) PROTIME 22.0 s (Abnormal) Range: 11.7-14.9 :59 Prothrombin Time w/INR Comments: [place] [address] [place], [address] INR 2.0 (Normal) PROTIME 22.8 s (Abnormal) Range: 11.7-14.9 :58 Prothrombin Time w/INR Comments: [place] [address] [place], [address] INR 1.8 (Normal) PROTIME 20.7 s (Abnormal) Range: 11.7-14.9 48-Cuq-203874:31 Prothrombin Time w/INR Comments: [place] [address] [place], [address] INR 1.7 (Normal) PROTIME 19.9 s (Abnormal) Range: 11.7-14.9 27-Byg-659683:20 Prothrombin Time w/INR Comments: [place] [address] [place], [address] INR 2.6 (Normal) PROTIME 27.9 s (Abnormal) Range: 11.7-14.9 :39 Prothrombin Time w/INR Comments: [facility] [address] [place], [address] INR 2.9 (Normal) PROTIME 30.5 s (Abnormal) Range: 11.7-14.9 50-Ihf-583964:03 Rapid Flu (88665 x 2) Influenza A Ag neg (Normal) 75-Yrv-911699:00 Prothrombin Time w/INR Comments: [facility] [address] [place], [address] ; See pt message INR 3.7 (Abnormal) Comments: CRITICAL VALUE VERIFIED. CALLED TO KOLTON WOMACK05/31/17 1130 Nii Lind.RESULTS READ BACK BY SAME. PROTIME 35.0 s (Abnormal) Range: 11.7-14.9 :21 Prothrombin Time w/INR Comments: [facility] [address] [place], [place], [phone] INR 4.7 (Abnormal) Comments: CRITICAL VALUE VERIFIED. CALLED TO GEOVANNI AT [facility] [place]05/24/17 0956 Violeta Noble.RESULTS READ BACK BY SAME . PROTIME 42.4 s (Abnormal) Range: 11.7-14.9 02-Aut-038700:27 Prothrombin Time w/INR Comments: [facility] [address] [place], [phone] INR 1.9 (Normal) PROTIME 20.9 s (Abnormal) Range: 11.7-14.9 :42 Prothrombin Time w/INR Comments: [address] [place], [address] INR 4.3 (Abnormal) Comments: CRITICAL VALUE VERIFIED. CALLED TO 05/10/17 7237 Josue Velazquez.RESULTS READ BACK BY . PROTIME 39.8 s (Abnormal) Range: 11.7-14.9 :18 Prothrombin Time w/INR Comments: [facility] [address] [place], [address] INR 2.4 (Normal) PROTIME 24.8 s (Abnormal) Range: 11.7-14.9 :18 Prothrombin Time w/INR Comments: [facility] [address] [place], [address] INR 2.4 (Normal) PROTIME 25.2 s (Abnormal) Range: 11.7-14.9 :00 Prothrombin Time w/INR Comments: [facility] [address] [place], [address] INR 2.5 (Normal) PROTIME 25.8 s (Abnormal) Range: 11.7-14.9 :32 Prothrombin Time w/INR Comments: [place] [address] [place], [address] INR 2.1 (Normal) PROTIME 22.7 s (Abnormal) Range: 11.7-14.9 :23 Prothrombin Time w/INR Comments: [place] [address] [place], [address] INR 2.3 (Normal) PROTIME 24.6 s (Abnormal) Range: 11.7-14.9 :14 Prothrombin Time w/INR Comments: [facility] [address] [place], [address] INR 2.0 (Normal) PROTIME 21.9 s (Abnormal) Range: 11.7-14.9 :18 Prothrombin Time w/INR Comments: [facility] [address] [place], [address] INR 2.5 (Normal) PROTIME 25.6 s (Abnormal) Range: 11.7-14.9 :39 Prothrombin Time w/INR Comments: [facility] [address] [place], [address] INR 2.1 (Normal) PROTIME 22.7 s (Abnormal) Range: 11.7-14.9 :40 Prothrombin Time w/INR Comments: [facility] [address] [place], [address] INR 2.6 (Normal) PROTIME 26.8 s (Abnormal) Range: 11.7-14.9 :40 Prothrombin Time w/INR Comments: [facility] [address] [place], [address] INR 2.2 (Normal) PROTIME 23.8 s (Abnormal) Range: 11.7-14.9 :21 Prothrombin Time w/INR Comments: [facility] [address] [place], [address] INR 1.8 (Normal) PROTIME 20.1 s (Abnormal) Range: 11.7-14.9 :30 Prothrombin Time w/INR Comments: [facility] [address] [place], [address] INR 3.0 (Normal) PROTIME 30.2 s (Abnormal) Range: 11.7-14.9 :45 Prothrombin Time w/INR Comments: [facility] [address] [place], [address] INR 2.9 (Normal) PROTIME 29.1 s (Abnormal) Range: 11.7-14.9 :52 Prothrombin Time w/INR Comments: [facility] [address] [place], [address] INR 1.4 (Normal) PROTIME 17.0 s (Abnormal) Range: 11.7-14.9 :27 Prothrombin Time w/INR Comments: [facility] [address] [place], [address] INR 2.0 (Normal) PROTIME 21.7 s (Abnormal) Range: 11.7-14.9 58-Gma-514082:21 Prothrombin Time w/INR Comments: [facility] [address] [place], [address] INR 2.3 (Normal) PROTIME 24.1 s (Abnormal) Range: 11.7-14.9 :43 Prothrombin Time w/INR Comments: [facility] [address] [place], [place], [address] INR 2.9 (Normal) PROTIME 29.1 s (Abnormal) Range: 11.7-14.9 :47 Prothrombin Time w/INR Comments: [place] [address] [place], [place], [address] INR 2.3 (Normal) PROTIME 24.0 s (Abnormal) Range: 11.7-14.9 :25 CBC W/Diff, Automated Comments: [address] [place], [place], [id number] ; see other message Absolute Lymph 2.07 [...] Range: 4.4-11.0 07-Jul-20167:25 Comprehensive Metabolic Profil Comments: [facility] [address] [place], [place], [address] GAP 3 (Abnormal) Range: 5-15 CO2 28.0 [...] Range: 70-110 :25 Prothrombin Time w/INR Comments: [facility] [address] [place], [address] INR 3.5 (Abnormal) Comments: CRITICAL VALUE VERIFIED. CALLED TO PATRICE Longoria07/07/16 0834 Radha Calderon.RESULTS READ BACK BY SAME . PROTIME 33.9 s (Abnormal) Range: 11.7-14.9 :25 Thyroid Stim Hormone (TSH) Comments: [facility] [address] [place], [address] TSH 3.25 {uIU/mL} (Normal) Range: 0.358-3.74 :47 Prothrombin Time w/INR Comments: [facility] [address] [place], [address] INR 2.6 (Normal) Comments: ADDENDA: handled by Dr. Phillips PROTIME 27.5 s (Abnormal) Range: 11.7-14.9 :32 Prothrombin Time w/INR Comments: [facility] [address] [place], [address] INR 2.3 (Normal) PROTIME 25.5 s (Abnormal) Range: 11.7-14.9 :15 Prothrombin Time w/INR Comments: [facility] [address] [place], [address] INR 2.6 (Normal) PROTIME 27.7 s (Abnormal) Range: 11.7-14.9 :29 Prothrombin Time w/INR Comments: [facility] [address] [place], [address] INR 1.3 (Normal) PROTIME 16.7 s (Abnormal) Range: 11.7-14.9 :19 Prothrombin Time w/INR Comments: [facility] [address] [place], [address] INR 2.1 (Normal) PROTIME 23.3 s (Abnormal) Range: 11.7-14.9 :14 Prothrombin Time w/INR Comments: [facility] [address] [place], [address] INR 2.0 (Normal) PROTIME 22.5 s (Abnormal) Range: 11.7-14.9 :21 Prothrombin Time w/INR Comments: [facility] [address] [place], [address] INR 2.7 (Normal) PROTIME 28.5 s (Abnormal) Range: 11.7-14.9 :30 Prothrombin Time w/INR Comments: [facility] [address] [place], [address] INR 2.4 (Normal) PROTIME 25.9 s (Abnormal) Range: 11.7-14.9 :41 Prothrombin Time w/INR Comments: [facility] [address] [place], [address] INR 2.5 (Normal) PROTIME 26.9 s (Abnormal) Range: 11.7-14.9 :09 Prothrombin Time w/INR Comments: [facility] [address] [place], [address] INR 3.4 (Normal) PROTIME 34.4 s (Abnormal) Range: 11.7-14.9 :11 Prothrombin Time w/INR Comments: [facility] [address] [place], [address] INR 2.5 (Normal) PROTIME 26.6 s (Abnormal) Range: 11.7-14.9 :33 Prothrombin Time w/INR Comments: [facility] [address] [place], [address] INR 1.5 (Normal) PROTIME 18.1 s (Abnormal) Range: 11.7-14.9 :12 Prothrombin Time w/INR Comments: [facility] [address] [place], [address] INR 1.1 (Normal) PROTIME 14.4 s (Normal) Range: 11.7-14.9 :51 Prothrombin Time w/INR Comments: [facility] [address] [place], [address] INR 3.6 (Abnormal) Comments: CRITICAL VALUE REPEATED AND VERIFIED. CALLED TO Maycol DAVISON02/25/15 1001 Elsie Longoria.RESULTS READ BACK BY MARGUERITE . PROTIME 35.3 s (Abnormal) Range: 11.7-14.9 :23 Prothrombin Time w/INR Comments: [facility] [address] [place], [address] INR 3.3 (Normal) PROTIME 33.3 s (Abnormal) Range: 11.7-14.9 :13 Prothrombin Time w/INR Comments: [facility] [address] [place], [address] INR 2.4 (Normal) PROTIME 26.5 s (Abnormal) Range: 11.7-14.9 :32 Prothrombin Time w/INR Comments: [facility] [address] [place], [address] INR 1.4 (Normal) PROTIME 17.8 s (Abnormal) Range: 11.7-14.9 :09 Prothrombin Time w/INR Comments: [facility] [address] [place], [address] INR 1.2 (Normal) PROTIME 15.9 s (Abnormal) Range: 11.7-14.9 :12 Prothrombin Time w/INR Comments: [facility] [address] [place], [address] INR 2.4 (Normal) PROTIME 26.4 s (Abnormal) Range: 11.7-14.9 :20 Prothrombin Time w/INR Comments: [facility] [address] [place], [address] INR 2.2 (Normal) PROTIME 24.5 s (Abnormal) Range: 11.7-14.9 :11 Prothrombin Time w/INR Comments: Test performed at:[facility] [address] [place] [address] INR 2.2 (Normal) PROTIME 24.1 s (Abnormal) Range: 11.7-14.9 :29 Prothrombin Time w/INR Comments: Test performed at:[facility] [address] [place] [address] INR 3.7 (Abnormal) Comments: CRITICAL VALUE REPEATED AND VERIFIED. CALLED TO [facility] SHANTA12/21/14 Frida Kumar.RESULTS READ BACK BY SAME . PROTIME 36.5 s (Abnormal) Range: 11.7-14.9 :25 Prothrombin Time w/INR Comments: Test performed at:[facility] [address] [place] [address] INR 2.5 (Normal) PROTIME 27.1 s (Abnormal) Range: 11.7-14.9 :23 Miscellaneous Lab Procedure Comments: Comments: [id number] PTH PLUS CALCIUM LAV AND RED RFTest(s) Ordered: [id number] PTH PLUS CALCIUM LAV AND RED RFTest performed at:[facility] [address] [place] [address] [facility] Comments: TEST RESULT LIMITSCa+PTH Intact Calcium, Serum [...] - 65 < 8.6 TESTING PERFORMED AT [facility]. ORIGINAL REPORT ON FILE IN LAB CONTAINS AD DITIONAL TEST SITE INFORMATION. :23 Prothrombin Time w/INR Comments: Test performed at:[facility] [address] [place] [address] INR 4.0 (Abnormal) Comments: CRITICAL VALUE REPEATED AND VERIFIED. CALLED TO PTKMYF81/11/15 0933 Fletcher Foote.RESULTS READ BACK BY SAME . PROTIME 38.3 s (Abnormal) Range: 11.7-14.9 :23 Vitamin D 1,25-Dihydroxy Comments: Test performed at:[facility] [address] [place] [address] VITD 1,25 00477 55.5 pg/mL (Normal) Range: 19.9-79.3 Comments: Performed at: [address] [id number] Director: Juan Ontiveros MD, Phone: [phone] :23 Vitamin D,25 Hydroxy Comments: Test performed at:[facility] [address] [place] [address] Vitamin D 25-OH 70.3 ng/mL (Normal) Comments: Vitamin D 25(OH) Status Range Deficiency <20 ng/mL (50nmol/L) Insuffciency 20 - 30 ng/mL (50 - 75 nmol/L) Sufficiency 30 - 100 ng/mL (75 - 250 nmol/L) Toxicity >100 ng/mL (>250 nmol/L) :04 Prothrombin Time w/INR Comments: Test performed at:[facility] [address] [place] [address] INR 2.1 (Normal) PROTIME 23.5 s (Abnormal) Range: 11.7-14.9 :12 Prothrombin Time w/INR Comments: Test performed at:[facility] [address] [place] [address] INR 1.6 (Normal) PROTIME 18.9 s (Abnormal) Range: 11.7-14.9 :10 Prothrombin Time w/INR Comments: Test performed at:[facility] [address] [place] [address] INR 1.1 (Normal) PROTIME 14.1 s (Normal) Range: 11.7-14.9 78-Sud-841592: ENDOMETRIAL BX/CURETTINGS See Note (Normal) Comments: Test performed at:[facility] [address] [place] [address] 49 Comments: Patient: YAHAIRA BRYANT : 1950 (64/F) Acct Num: [id number] Phys: Aliza Santana MD Unit Num: [id number] Loc: [facility] Specimen: [id number] Received: 11/26/14 - 1217 Spec Type: EN [...] cassette. / NICOLÁS:papito 11/26/14 TC: 5 CPT: 75291 HEADER OPERATION: Hysteroscopy, diagnostic, D AND C PRE-OP DIAGNOSIS: Postmenopausal bleeding TISSUE SUBMITTED: Endometrial curettings MICROSCOPIC DESCRIPTION Slides are reviewed. MICROSCOPIC DIAGNOSIS Endometrial curettings: Scant strips of benign endometrial epithelium and superficial fragment of benign endometrial tissue, consistent with atrophic endometri um. Fragments of benign endocervical epithelium. SJ:papito 11/27/14 Signed Jeffy Suazo 11/27/14 <signature on file> 19-Luc-046005:39 INR Fingerstick Comments: Test performed at:[facility] [address] [place] [address] INR ISTAT 1.10 (Normal) Comments: Critical Value > 3.5; ADDENDA: this is for pre-op, will resume tomorrow and recheck it in 1 week. 06-Yem-937885:39 Prothrombin Time Fingerstick Comments: Test performed at:[facility] [address] [place] [address] PROTIME ISTAT 13.2 {SEC} (Normal) Range: 11.9-14.4 Comments: Reference Range 11.9 - 14.4 :41 Partial Thromboplast Time Comments: Test performed at:[facility] [address] [place] [address] PTT 40.9 s (Abnormal) Range: 24.1-36.2 42-Ynq-131714:41 Prothrombin Time w/INR Comments: Test performed at:[facility] [address] [place] [address] INR 2.6 (Normal) PROTIME 27.4 s (Abnormal) Range: 11.7-14.9 63-Smg-395854:41 Type AND Screen Comments: Surgery Date: 11/26/14Hx of Preganancy in last 3 Months NoEver experience any problems with transfusion(s)? NHx of Transfusion in last 3 Months NReason for Type AND Screen/Red Cells: SURGERYSURGI ADELSO PROCEDURE: .Test performed at:[facility] [address] [place] [address] Antibody Screen NEGATIVE (Normal) BLOOD TYPE GEL A POSITIVE (Normal) :09 CBC W/Diff, Automated Comments: Test performed at:[place] [address] [place] [address] Absolute Lymph 2.07 {X10_3/ul} (Normal) Range: 0.83-4.51 [...] 4.2-5.4 WBC 3.9 K/mm3 (Abnormal) Range: 4.4-11.0 54-Ass-83370:09 Comprehensive Metabolic Profil Comments: Test performed at:[facility] [address] [place], [place] [address] GAP 6 (Normal) Range: 5-15 CO2 29.0 [...] Comments: Please note revised CREATININE reference range bbxsyvunh79/22/2015. BUN 19 mg/dL (Abnormal) Range: 7-18 GLU 75 mg/dL (Normal) Range: 70-110 :09 Prothrombin Time w/INR Comments: Test performed at:[facility] [address] [place] [address] INR 2.4 (Normal) PROTIME 25.8 s (Abnormal) Range: 11.7-14.9 :13 Prothrombin Time w/INR Comments: Test performed at:[facility] [address] [place] [address]( INR 1.8 (Normal) PROTIME 21.2 s (Abnormal) Range: 11.7-14.9 :06 Prothrombin Time w/INR Comments: Test performed at:[facility] [address] [place] [address]( INR 2.2 (Normal) PROTIME 24.4 s (Abnormal) Range: 11.7-14.9 :50 Prothrombin Time w/INR Comments: Test performed at:[facility] [address] [place] [address] INR 1.7 (Normal) PROTIME 20.3 s (Abnormal) Range: 11.7-14.9 16-Evs-609586:16 Estrogen, Total, Serum Comments: Comments: TSHHas Patient had Radioactive Injection for X-ray?: NTest performed at:[facility] [address] [facility] [place] [address] ESTROGEN 4549 54 pg/mL (Normal) Comments: Prepubertal <40 Female Cycle: 1-10 Days 61 - 394 11-20 Days 122 - 437 21-30 Days 156 - 350 Post-Menopausal <40 HMG Treatment for Ovulation Induction: 400 - 800Performed at: [facility] LabCo[address] [id number] Director: Juan Ontiveros MD, Phone: [phone] 14-Fhu-093001:16 Free T3 Comments: Comments: TSHTest performed at:[facility] [address] [facility] [place] [address] FREE T3 2.6 pg/mL (Normal) Range: 2.18-3.98 50-Fit-246047:16 Hemoglobin A1c Comments: Test performed at:[facility] [address] [facility] [place] [address] HGB A1C 5.0 % (Normal) Range: 4.2-6.3 70-Rvz-564707:16 Progesterone Level Comments: Test performed at:[facility] [address] [facility] [place] [address] Progesterone 0.48 ng/mL (Normal) Comments: Progesterone Reference Table: UNITS Female: Follicular 0.15 - 1.40 ng/mL Luteal 3.34 - 25.56 ng/mL Mid-luteal 4.44 - 28.03 ng/mL Postmenopausal 0.0 - 0.73 ng/mL : 1st Trimester 11.22 - 90.00 ng /mL 2nd Trimester 25.55 - 89.40 ng/mL 3rd Trimester 48.40 -422.50 ng/mL 21-Czf-325717:16 T4 Free Direct Comments: Comments: TSHTest performed at:[facility] [address] [facility] [place] [address] T4 FREE DIRECT 1.16 ng/dL (Normal) Range: 0.76-1.46 33-Qtx-488695:16 Testosterone, Serum Total Comments: Test performed at:[facility] [address] [place] [address] ; ordered by Dr. Santana Testosterone 35 ng/dL (Normal) Range: 14-76 56-Pgp-945577:16 Thyroid Stim Hormone (TSH) Comments: Comments: TSHTest performed at:[facility] [address] [place] [address] TSH 1.53 {uIU/mL} (Normal) Range: 0.358-3.74 :11 Prothrombin Time w/INR Comments: Test performed at:[facility] [address] [place] [address] INR 1.8 (Normal) PROTIME 20.9 s (Abnormal) Range: 11.7-14.9 :27 Prothrombin Time w/INR Comments: Test performed at:[facility] [address] [place] [address] INR 2.2 (Normal) PROTIME 24.8 s (Abnormal) Range: 11.7-14.9 :08 Prothrombin Time w/INR Comments: Test performed at:[facility] [address] [place] [address] INR 4.8 (Abnormal) Comments: CRITICAL VALUE REPEATED AND VERIFIED. CALLED TO RADAH 10/01/14 0855 Nii Lind.RESULTS READ BACK BY SAME. PROTIME 44.0 s (Abnormal) Range: 11.7-14.9 :14 Prothrombin Time w/INR Comments: Test performed at:[facility] [address] [place] [address] INR 2.6 (Normal) PROTIME 27.9 s (Abnormal) Range: 11.7-14.9 :16 Prothrombin Time w/INR Comments: Test performed at:[facility] [address] [place], [place] [address] INR 5.0 (Abnormal) Comments: CRITICAL VALUE REPEATED AND VERIFIED. CALLED TO Tami DAVISON09/21/14 0809 Elsie Longoria.RESULTS READ BACK BY CONNER . PROTIME 45.5 s (Abnormal) Range: 11.7-14.9 :10 Prothrombin Time w/INR Comments: Test performed at:[facility] [address] [place] [address] INR 3.2 (Normal) PROTIME 32.8 s (Abnormal) Range: 11.7-14.9 :24 Miscellaneous Lab Procedure Comments: Comments: [id number] HHV-6 IGM,SST,REFRIGERATETest(s) Ordered: [id number] HHV-6 IGM,SST,REFRIGERATETest performed at:[facility] [address] [facility] [place] [address] [facility] Comments: TEST RESULT UNITS REFERENCE INTERVALHuman Herpes Virus Type 6 IgM <1:10 Neg:<1:10Results for this test are for research purposes only by LAB (Normal) theassay's retail loss prevention specialist. The performance characteristics ofthis product have not been established. Results should notbe used as a diagnostic procedure without confirmation ofthe diagnosis by another med TEST ically established diagnosticproduct or procedure. TESTING PERFORMED AT [facility]. ORIGINAL REPORT ON FILE IN LAB CONTAINS ADDITIONAL TEST SITE IN FORMATION. :18 ANTINUCLEAR ANTIBODIES DIRECT Comments: Test performed at:[facility] [address] [facility] [place] [address] YURIY-DIRECT Negative (Normal) Comments: Performed at: [address], [place] [id number] Director: Narendra Covarrubias PhD, Phone: [phone] :18 CMV Acute Antibody IgM Comments: Test performed at:[facility] [address] [place] [address] CMVIgM AB < 30.0 AU/mL (Normal) Range: 0.0-29.9 Comments: Negative <30.0 Equivocal 30.0 - 34.9 Positive >34.9A positive result is generally indicative of acuteinfection, react ivation or persistent IgM production.Performed at: [facility] [address] [id number] Director: Narendra Covarrubias PhD, Phone: [phone] at: [address] [id number] Director: Juan Ontiveros MD, Phone: [phone] at: [address] [place] [id number] Director: Bill Tao PhD, Phone: [phone] :18 CMV Antibody IgG Comments: Test performed at:[facility] [address] [place] [address] CMV AB IgG > 10.00 U/mL (Abnormal) Range: 0.00-0.59 Comments: Negative <0.60 Equivocal 0.60 - 0.69 Positive >0.69 :18 EBV Acute Prof IgG / IgM Comments: Test performed at:[place] [address] [place] [address] INTERPRETATION Comment (Normal) Comments: EBV Interpretation ChartInterpretation EBV-IgM EA(D)-IgG VCA-IgG EBNA-IgGEBV Seronegative - - - -Early Phase + - - -Acute Primary + +or- + -InfectionConvalescence/Past - +or- + +InfectionReactivated +or- + + +Infection + Antibody Present - Antibody Absent EB-NAg [id number] 71.5 U/mL (Abnormal) Range: 0.0-17.9 Comments: Negative <18.0 Equivocal 18.0 - 21.9 Positive >21.9 EB-VCA [id number] > 600.0 U/mL (Abnormal) Range: 0.0-17.9 Comments: Negative <18.0 Equivocal 18.0 - 21.9 Positive >21.9 EB-EA IgG 79930 21.1 U/mL (Abnormal) Range: 0.0-8.9 Comments: Hepatitis A, Hepatitis C and HIV antibodies may cross-reactwith this assay. Negative < 9.0 Equivocal 9.0 - 10.9 Positive >10.9 EB-VCA [id number] < 36.0 U/mL (Normal) Range: 0.0-35.9 Comments: Negative <36.0 Equivocal 36.0 - 43.9 Positive >43.9 :18 Ferritin Comments: Test performed at:[facility] [address] [place] [address] FERRITIN 28 ng/mL (Normal) Range: 8-252 :18 HLA B27 Negative (Normal) Comments: Test performed at:[facility] [address] [place] [address] Comments: HLA-B*27 NegativeA Lab CLIA ID Number [id number] test was performed using PCR (Polymerase ChainReaction)/SSOP (Sequence Specific Oligonucleotide Probes)technique. SBT (Sequence Based Typing) and/ or SSP(Sequence Specific Primers) may be used as supplementalmethods when necessary. Please contact [facility] CustomerService at if you have any questions. Director of HLA Laboratory Dr Bill Tao, PhD :18 Homocysteine Comments: Test performed at:[facility] [address] [place] [address] HOMOCYSTEINE 6.7 umol/L (Normal) Range: 3.2-10.7 :18 IgG Subclasses Comments: Test performed at:[facility] [address] [place] [address] IgG, SUBCLASS 4 1 mg/dL (Normal) Range: 1-291 Comments: Results verified by repeat testing IgG, SUBCLASS 3 52 mg/dL (Normal) Range: 41-129 IgG, SUBCLASS 2 145 mg/dL (Normal) Range: 117-747 IgG, SUBCLASS 1 264 mg/dL (Abnormal) Range: 422-1292 IGG, QUANT 520 mg/dL (Abnormal) Range: 700-1600 :18 Miscellaneous Lab Procedure Comments: Comments: [id number] HHV-6 IGG,SST,REFRIGERATETest(s) Ordered: [id number] HHV-6 IGG,SST,REFRIGERATEList Test(s) Ordered by Physician: IGA SUBCLASSES, #[id number], SERUM,RM TEMP, 2 MLTest performed at:[facility] [address] [facility] [place] [address] [facility] Comments: TEST RESULT UNITS REFERENCE INTERVALHHV 6 IgG Antibodies 2.42 High index Negative <0.76 Equivocal 0.76 - 0.99 LAB (Normal) Positive >0.99Results for this test are for research purposesonly by the assay's retail loss prevention specialist. The performancecharacteristics of this product have not beenestablishe TEST d. Results should not be used as adiagnostic procedure without confirmation of thediagnosis by another medically established diagnosticproduct or procedure. TESTING PERFORMED AT [facility]. ORIGINAL REPORT ON FILE IN LAB CONTAINS ADDITIONAL TEST SITE INFORMATION. :18 Miscellaneous Lab Procedure Comments: Comments: [id number] HLA-DR4,SST,REFRIGERATETest(s) Ordered: [id number] HLA-DR4,SST,REFRIGERATETest performed at:[facility] [address] [place] [address] [facility] Comments: TEST RESULT UNITS REFERENCE INTERVALHLA DRB1 (IR) DRB1 DRB1*07:ACETZ DRB1 DRB1*- Code Translation: NIRAV 07:04/11:/07:10N/07:02/09:07:22 LAB (Normal) /::27/10:26/:29/10:30/10:29HLA allele interpretation for all loci based on IMGT/HLAdatabase version 3.15HLA Lab CLIA ID Number [id number] TEST TESTING PERFORMED AT [facility]. ORIGINAL REPORT ON FILE IN LAB CONTAINS ADDITIONAL TEST SITE INFORMATION. HLA Methodology:HLA result s were obtained using sequence based typing (SBT),sequence specific oligonucleotide probes (SSOP), and/orsequence specific primers (SSP) as needed to obtain therequired resolution. Please contact HLA [facility] [phone] if you have any questions.Director of HLA LaboratoryDr Bill Tao, PhD 07-Sep-20146:18 Miscellaneous Lab Procedure 2 Comments: Comments: [id number] HHV- 6 IGG,SST,REFRIGERATETest(s) Ordered: [id number] HHV-6 IGG,SST,REFRIGERATEList Test(s) Ordered by Physician: IGA SUBCLASSES, #[id number], SERUM,RM TEMP, 2 MLTest performed at:[facility] [address] [place] [address] [facility] Comments: TEST RESULT UNITS REFERENCE INTERVALIgA, Subclasses (1-2) Immunoglobulin A, Qn, Serum 161 mg/dL 91 - 414 IgA, Subclass 1 132.0 mg/dL LAB (Normal) 73.2 - 301.2 IgA, Subclass 2 6.2 Low mg/dL 13.4 - 97.9 TESTING PERFORMED AT [facility]. ORIGINAL REPORT ON FILE IN LAB CONTAINS MANFRED TEST TIONAL TEST SITE INFORMATION. 2 :18 Prothrombin Time w/INR Comments: Test performed at:[facility] [address] [place] [address] INR 1.9 (Normal) PROTIME 22.3 s (Abnormal) Range: 11.7-14.9 :18 Vitamin B12 664 pg/mL (Normal) Comments: Test performed at:[facility] [address] [place] [place] [address] Range: 211-911 :18 Vitamin D,25 Hydroxy Comments: Test performed at:[facility] [address] [place] [id number] Vitamin D 25-OH 58.8 ng/mL (Normal) Comments: Vitamin D 25(OH) Status Range Deficiency <20 ng/mL (50nmol/L) Insuffciency 20 - 30 ng/mL (50 - 75 nmol/L) Sufficiency 30 - 100 ng/mL (75 - 250 nmol/L) Toxicity >100 ng/mL (>250 nmol/L) :13 CBC W/Diff, Automated Comments: Test performed at:[facility] [address] [place] [place] [address] Absolute Lymph 2.08 {X10_3/ul} (Normal) [...] 03-Sep-20146:13 Comprehensive Metabolic Profil Comments: Test performed at:[facility] [address] [place] [address] GAP 7 (Normal) Range: 5-15 CO2 29.0 [...] 70-110 :13 Lipid Profile Comments: Test performed at:[facility] [address] [place] [address] VLDL 9 mg/dL (Normal) Range: 5-40 LDL [...] :13 Prothrombin Time w/INR Comments: Test performed at:[facility] [address] [place] [address] INR 1.5 (Normal) PROTIME 18.4 s (Abnormal) Range: 11.7-14.9 :17 INR Fingerstick Comments: Test performed at:[facility] [address] [place] [address] INR ISTAT 1.50 (Normal) Comments: Critical Value > 3.5 :17 Prothrombin Time Fingerstick Comments: Test performed at:[facility] [address] [place] [address] PROTIME ISTAT 17.6 {SEC} (Abnormal) Range: 11.9-14.4 Comments: Reference Range 11.9 - 14.4 :09 INR Fingerstick Comments: Test performed at:[facility] [address] [place] [address] INR ISTAT 1.40 (Normal) Comments: Critical Value > 3.5 :09 Prothrombin Time Fingerstick Comments: Test performed at:[facility] [address] [place] [address] PROTIME ISTAT 17.1 {SEC} (Abnormal) Range: 11.9-14.4 Comments: Reference Range 11.9 - 14.4 :09 Prothrombin Time w/INR Comments: Test performed at:[facility] [address] [place] [address] INR 1.1 (Normal) PROTIME 14.6 s (Normal) Range: 11.7-14.9 :11 INR Fingerstick Comments: Test performed at:[facility] [address] [place] [address] INR ISTAT 1.20 (Normal) Comments: Critical Value > 3.5 :11 Prothrombin Time Fingerstick Comments: Test performed at:[facility] [address] [place] [address] PROTIME ISTAT 13.9 {SEC} (Normal) Range: 11.9-14.4 Comments: Reference Range 11.9 - 14.4 :06 INR Fingerstick Comments: Test performed at:[facility] [address] [place] [address] INR ISTAT 1.10 (Normal) Comments: Critical Value > 3.5 :06 Prothrombin Time Fingerstick Comments: Test performed at:[facility] [address] [place] [address] PROTIME ISTAT 13.6 {SEC} (Normal) Range: 11.9-14.4 Comments: Reference Range 11.9 - 14.4 :28 INR Fingerstick Comments: Test performed at:[facility] [address] [place] [address](528 INR ISTAT 2.20 (Normal) Comments: Critical Value > 3.5 :28 Prothrombin Time Fingerstick Comments: Test performed at:[facility] [address] [place] [id number](182 PROTIME ISTAT 25.0 {SEC} (Abnormal) Range: 11.9-14.4 Comments: Reference Range 11.9 - 14.4 :19 INR Fingerstick Comments: Test performed at:[facility] [address] [place] [address](520 INR ISTAT 2.70 (Normal) Comments: Critical Value > 3.5 :19 Prothrombin Time Fingerstick Comments: Test performed at:[facility] [address] [place] [address](380 PROTIME ISTAT 30.6 {SEC} (Abnormal) Range: 11.9-14.4 Comments: Reference Range 11.9 - 14.4 :09 Prothrombin Time w/INR Comments: Test performed at:[facility] [address] [place] [address] INR 3.2 (Normal) PROTIME 32.6 s (Abnormal) Range: 11.7-14.9 :22 Prothrombin Time w/INR Comments: Test performed at:[facility] [address] [place] [address] INR 2.6 (Normal) PROTIME 27.8 s (Abnormal) Range: 11.7-14.9 :22 Prothrombin Time w/INR Comments: Test performed at:[facility] [address] [place] [address] INR 3.0 (Normal) PROTIME 30.9 s (Abnormal) Range: 11.7-14.9 :12 Prothrombin Time w/INR Comments: Test performed at:[facility] [address] [place] [address] INR 3.4 (Normal) PROTIME 33.7 s (Abnormal) Range: 11.7-14.9 :10 Prothrombin Time w/INR Comments: Test performed at:[facility] [address] [place] [address] INR 3.7 (Abnormal) PROTIME 36.4 s (Abnormal) Range: 11.7-14.9 28-Wqp-535898:20 Prothrombin Time w/INR Comments: Test performed at:[facility] [address] [place] [address] INR 3.0 (Normal) PROTIME 31.0 s (Abnormal) Range: 11.7-14.9 :10 Prothrombin Time w/INR Comments: Test performed at:[facility] [address] [place] [address] INR 3.0 (Normal) PROTIME 30.7 s (Abnormal) Range: 11.7-14.9 :04 Prothrombin Time w/INR Comments: Test performed at:[facility] [address] [place] [address] INR 1.7 (Normal) PROTIME 19.7 s (Abnormal) Range: 11.7-14.9 :17 Prothrombin Time w/INR Comments: Test performed at:[facility] [address] [place] [address] INR 1.8 (Normal) PROTIME 21.1 s (Abnormal) [...] K/mm3 (Normal) Range: 4.4-11.0 :55 CMP Comments: FAST ORDERED PT ONLY GAP 7 (Normal) Range: [...] Comments: Please note revised PROTIME reference range jslgxfqdi14/14/15. :05 PT INR 3.0 (Normal) PTP 30.6 s (Abnormal) Range: 11.7-14.9 Comments: Please note revised PROTIME reference range eddizopgs08/14/15. :07 PT INR 5.6 (Abnormal) PTP 50.1 s (Abnormal) Range: 11.7-14.9 Comments: Please note revised PROTIME reference range vgbdsabez27/14/15. :03 PT INR 2.5 (Normal) PTP 27.0 s (Abnormal) Range: 11.7-14.9 Comments: Please note revised PROTIME reference range uvigbqvmu67/14/15. 97-Nrg-55879:03 PT INR 2.0 (Normal) PTP 23.0 s (Abnormal) Range: 11.7-14.9 Comments: Please note revised PROTIME reference range socuyrppz10/14/15. 2-:06 PT INR 2.1 (Normal) PTP 21.9 [...] :16 LIPID Comments: DR BARNES ORDERED PT JAKE BRAMBILA ORDERED PT LDL 186 mg/dL (Abnormal) Range: 0-130 VLDL 16 mg/dL (Normal) Range: 5-40 HDL 85 mg/dL (Normal) Comments: Reference RangeHDL <40 mg/dL Low HDL CholesterolHDL >or= 60 mg/dL High HDL Cholesterol CHOL 287 mg/dL (Abnormal) Comments: <200 mg/dL Qjcwtwxbh759-707 mg/dL Borderline>240 mg/dL High Risk TRIG 78 [...] CRITICAL VALUE REPEATED AND VERIFIED. CALLED TO FLFMCGK64/14/14 Cuauhtemoc Serrano.RESULTS READ BACK BY OLIVIER . [...] CHOL 227 mg/dL (Abnormal) Comments: <200 mg/dL Dpwhtazob069-511 mg/dL Borderline>240 mg/dL High Risk HDL 81 [...] CHOL 229 mg/dL (Abnormal) Comments: <200 mg/dL Ejjxmmciu979-898 mg/dL Borderline>240 mg/dL High Risk :16 PT [...] Rodriguez M.D.September 21, 2012 at 11:00:07 AM [phone] Signed RU/RU If you are the referring physician and would like to consult with theradiologist who provided this interpretation, please contact Man tSyles at [phone]. If this radiologist is unavailable, ender directed to another radiologist to as sist. If you are a patient with a question regarding this report, pleasecontactyour referring physician directly. Professional Interpretation Provided By: [employer], Phone ,Fax These documents contain legally [...] destructionofthese documents. Dictated on 09/21/12 1100 by MichaelLaithTranscribed on 09/21/12 1105 by ITS IMPORTSign by Laith Rodriguez on 09/21/12 1106 Sign by: Laith beckwith 3-Bmu-733341:40 CUUR URC See Note (Normal) Comments: This is an amended result. A prior result that was reported as final has been changed.09/07/12 1448 by NSTANSLOSPreviously reported as: FINAL COLONY COUNT <1000 ORGANISM 1: MIXED GRAM POSITIVE ORGANISMS 9-Ohx-[id number]:40 LYMEWB lDLMICJU44I Absent (Normal) tLYMWBINTM Negative (Normal) Comments: Note: [...] are those recommended byCDC/ASTPHLD. p23=Osp C , t47=bsqmekkbx.Note:Sera from individuals with the following may cross reactin the Lyme Western Blot assays: other spirochetal diseases(periodontal disease, leptospirosis, relapsing fever, yaws,and pin ta); connective autoimmune (Rheumatoid Arthritis andSystemic Lupus Erythematosus and also individuals withAntinuclear Antibody); other infections (Angel MountainSpotted Fever; Desirae-Camargo Virus, and Cy tomegalovirus)..Performed at: [address] [id number] Director: Juan Ontiveros MD, Phone: [phone] eBWVULXU26E Absent (Normal) rUOEDQFC80J Absent (Normal) uBOOGJOP52D Absent (Normal) aEQWTWZU24T Absent (Normal) tLYMWBINTG Negative (Normal) Comments: Positive: 5 of the followingBorrelia- specific bands:18,23,28,30,39,41,45,58,66, and 93.Negative: No bands or bandingpatterns which do notmeet positive criteria. zXIRHCCO28U Absent (Normal) lPDCKTXZ92R Absent (Normal) gXFHYOXF27T Absent (Normal) rHUNAUHL78M Present (Abnormal) fAYLZKNB85M Absent (Normal) uBCCQBNG30J Absent (Normal) lFVCRLNA84T Absent (Normal) hPLZDCOJ87W Absent (Normal) :03 PT INR 2.9 (Normal) PTP 28.1 s (Abnormal) Range: 11.9-14.4 54-Npx-941157:12 Microscopic Examination Comments: PATIENT NOT FASTINGPERFORMED BY: [employer] [id number] Bacteria Few (Normal) Mucus Threads Present (Normal) Epithelial Cells (non renal) 0-10 {/hpf} (Normal) Range: 0 - 10 RBC None seen {/hpf} (Normal) Range: 0 - 3 WBC None seen {/hpf} (Normal) Range: 0 - 5 67-Fbg-692451:12 Lyme Disease Antibody W/ Comments: PATIENT NOT FASTINGPERFORMED BY: [facility] [id number] Reflex ([id number]) Lyme Ab Interp.,EIA Negative (Normal) Lyme IgG/IgM Ab <0.91 {index} (Normal) Range: 0.00-0.90 Comments: Negative <0.91 Equivocal 0.91 - 1.09 Positive >1.09 Note: The CDC curren tly advises that Western blot testing be performed following all equivocal or positive EIA results. Final diagnosis should include appropriate clinical findi ngs and a positive EIA which is also positive by Western blot. 93-Vyu-557305:12 SED RATE ERYTHROCYTE ([id number]) Comments: PATIENT NOT FASTINGPERFORMED BY: [employer] [facility] [id number] Sedimentation Rate-Westergren 2 mm/h (Normal) Range: 0-40 02-Cgj-829610:12 C-REACTIVE PROTEIN ([id number]) Comments: PATIENT NOT FASTINGPERFORMED BY: [facility] [id number] C-Reactive Protein, Quant 0.7 mg/L (Normal) Range: 0.0-4.9 52-Kxg-554059:12 URINALYSIS, W/ MICRO ([id number]) Comments: PATIENT NOT FASTINGPERFORMED BY: [facility] [id number] Microscopic Examination See below: (Normal) Nitrite, Urine Negative (Normal) Urobilinogen,Semi-Qn 0.2 mg/dL (Normal) Range: 0.0-1.9 Bilirubin Negative (Normal) Occult Blood Negative (Normal) Ketones 3+ (Abnormal) Glucose Negative (Normal) Protein 1+ (Abnormal) WBC Esterase Negative (Normal) Appearance Clear (Normal) Urine-Color Yellow (Normal) pH 6.0 (Normal) Range: 5.0-7.5 Specific [place] 1.025 (Normal) Range: 1.005-1.030 03-Kuw-933356:12 TSH ([id number]) Comments: PATIENT NOT FASTINGPERFORMED BY: [facility] [id number] TSH 2.400 {uIU/mL} (Normal) Range: 0.450-4.500 07-Zrv-667917:12 METABOLIC PANEL, COMPREHENSIVE Comments: PATIENT NOT FASTINGPERFORMED BY: [facility] [id number] ([id number]) ALT (SGPT) 19 [iU]/L (Normal) Range: 0-32 [...] Glucose, Serum 91 mg/dL (Normal) Range: 65-99 65-Utt-064926:12 CBC WITH MANUAL DIFF Comments: PATIENT NOT FASTINGPERFORMED BY: [facility] Jzlpqk[address]12 [facility] [id number] Information: [id number] ([id number]) Immature Grans (Abs) 0.0 {x10E3/uL} (Normal) Range: [...] TSH 2.44 {uIU/mL} (Normal) Range: 0.358-3.74 :12 [facility] 0 SEEN {/hpf} (Normal) UBAC 0 [...] (Normal) UCLAR Clear (Normal) UCOL Yellow (Normal) 95-Uyr-16852:12 VITD 34.0 ng/mL (Normal) Range: 30.0-100.0 Comments: Vitamin D deficiency has been defined by the [place] of[place]icine and an Endocrine Society practice guideline as alevel of serum 25-OH vitamin D less than 20 ng/mL (1,2).The Endocrine Society went on to further define vitamin Dinsufficiency as a level between 21 and 29 ng/mL (2).1. IOM ([place] of Medicine). 2010. Dietary reference intakes for calcium and D. [place]: The National Academies Press.2. Ana MF, Heriberto GORDON, Jayla BECKFORD, et al. Evaluation, treatment, and prevention of vitamin D deficiency: an Endocrine Society clinical practice guideline. JCEM. 2010; 96(7): 1911-30.Performed at: [address] [id number] Director: Narendra Covarrubias PhD, Phone: [phone] Plan of Care Name Dates Details Instructions Upper respiratory disease : Follow up if no improvement or if symptoms worsen Indication: Upper respiratory disease Cough : Cough: upper respiratory infection Indication: Cough Nonsmoker : Eprescribed prescriptions (G8553) Indication: Nonsmoker History of DVT (deep vein thrombosis) : [...] Planned Observations CBC, Platelets & Auto Diff ([id number])Indication: Leukopenia On: : Request CBC, Platelets & Auto Diff ([id number])Indication: Leukopenia On: : Request CBC, Platelets & Auto Diff ([id number])Indication: Leukopenia On: 13-Mar-2042 Request CBC, Platelets & Auto Diff ([id number])Indication: Leukopenia On: : Request CBC, Platelets & Auto Diff ([id number])Indication: Leukopenia On: : Request CBC, Platelets & Auto Diff ([id number])Indication: Leukopenia On: : Request CBC, Platelets & Auto Diff ([id number])Indication: Leukopenia On: 18-Mar-2041 Request CBC, Platelets & Auto Diff ([id number])Indication: Leukopenia On: : Request CBC, Platelets & Auto Diff ([id number])Indication: Leukopenia On: :00 Request CBC, Platelets & Auto Diff ([id number])Indication: Leukopenia On: :00 Request CBC, Platelets & Auto Diff ([id number])Indication: Leukopenia On: 23-Mar-2040 Request CBC, Platelets & Auto Diff ([id number])Indication: Leukopenia On: :00 Request CBC, Platelets & Auto Diff ([id number])Indication: Leukopenia On: :00 Request CBC, Platelets & Auto Diff ([id number])Indication: Leukopenia On: :00 Request CBC, Platelets & Auto Diff ([id number])Indication: Leukopenia On: 29-Mar-2039 Request CBC, Platelets & Auto Diff ([id number])Indication: Leukopenia On: :00 Request CBC, Platelets & Auto Diff ([id number])Indication: Leukopenia On: :00 Request CBC, Platelets & Auto Diff ([id number])Indication: Leukopenia On: :00 Request CBC, Platelets & Auto Diff ([id number])Indication: Leukopenia On: 03-Apr-2038 Request CBC, Platelets & Auto Diff ([id number])Indication: Leukopenia On: :00 Request CBC, Platelets & Auto Diff ([id number])Indication: Leukopenia On: :00 Request CBC, Platelets & Auto Diff ([id number])Indication: Leukopenia On: :00 Request CBC, Platelets & Auto Diff ([id number])Indication: Leukopenia On: 08-Apr-2037 Request CBC, Platelets & Auto Diff ([id number])Indication: Leukopenia On: :00 Request CBC, Platelets & Auto Diff ([id number])Indication: Leukopenia On: : Request CBC, Platelets & Auto Diff ([id number])Indication: Leukopenia On: :00 Request CBC, Platelets & Auto Diff ([id number])Indication: Leukopenia On: 13-Apr-2036 Request CBC, Platelets & Auto Diff ([id number])Indication: Leukopenia On: :00 Request CBC, Platelets & Auto Diff ([id number])Indication: Leukopenia On: :00 Request CBC, Platelets & Auto Diff ([id number])Indication: Leukopenia On: :00 Request CBC, Platelets & Auto Diff ([id number])Indication: Leukopenia On: 19-Apr-2035 Request CBC, Platelets & Auto Diff ([id number])Indication: Leukopenia On: :00 Request CBC, Platelets & Auto Diff ([id number])Indication: Leukopenia On: :00 Request CBC, Platelets & Auto Diff ([id number])Indication: Leukopenia On: :00 Request CBC, Platelets & Auto Diff ([id number])Indication: Leukopenia On: 24-Apr-2034 Request CBC, Platelets & Auto Diff ([id number])Indication: Leukopenia On: :00 Request CBC, Platelets & Auto Diff ([id number])Indication: Leukopenia On: :00 Request CBC, Platelets & Auto Diff ([id number])Indication: Leukopenia On: :00 Request CBC, Platelets & Auto Diff ([id number])Indication: Leukopenia On: 29-Apr-2033 Request CBC, Platelets & Auto Diff ([id number])Indication: Leukopenia On: : Request CBC, Platelets & Auto Diff ([id number])Indication: Leukopenia On: :00 Request CBC, Platelets & Auto Diff ([id number])Indication: Leukopenia On: :00 Request CBC, Platelets & Auto Diff ([id number])Indication: Leukopenia On: 04-May-2032 Request CBC, Platelets & Auto Diff ([id number])Indication: Leukopenia On: : Request CBC, Platelets & Auto Diff ([id number])Indication: Leukopenia On: : Request CBC, Platelets & Auto Diff ([id number])Indication: Leukopenia On: : Request CBC, Platelets & Auto Diff ([id number])Indication: Leukopenia On: 10-May-2031 Request CBC, Platelets & Auto Diff ([id number])Indication: Leukopenia On: 09-Feb-2031 Request CBC, Platelets & Auto Diff ([id number])Indication: Leukopenia On: :00 Request CBC, Platelets & Auto Diff ([id number])Indication: Leukopenia On: : Request CBC, Platelets & Auto Diff ([id number])Indication: Leukopenia On: 15-May-2030 Request CBC, Platelets & Auto Diff ([id number])Indication: Leukopenia On: 14-Feb-2030 Request CBC, Platelets & Auto Diff ([id number])Indication: Leukopenia On: :00 Request CBC, Platelets & Auto Diff ([id number])Indication: Leukopenia On: :00 Request CBC, Platelets & Auto Diff ([id number])Indication: Leukopenia On: 20-May-2029 Request CBC, Platelets & Auto Diff ([id number])Indication: Leukopenia On: 19-Feb-2029 Request CBC, Platelets & Auto Diff ([id number])Indication: Leukopenia On: :00 Request CBC, Platelets & Auto Diff ([id number])Indication: Leukopenia On: :00 Request CBC, Platelets & Auto Diff ([id number])Indication: Leukopenia On: 25-May-2028 Request CBC, Platelets & Auto Diff ([id number])Indication: Leukopenia On: 25-Feb-2028 Request CBC, Platelets & Auto Diff ([id number])Indication: Leukopenia On: :00 Request CBC, Platelets & Auto Diff ([id number])Indication: Leukopenia On: :00 Request CBC, Platelets & Auto Diff ([id number])Indication: Leukopenia On: 31-May-2027 Request CBC, Platelets & Auto Diff ([id number])Indication: Leukopenia On: 02-Mar-2027 Request CBC, Platelets & Auto Diff ([id number])Indication: Leukopenia On: :00 Request CBC, Platelets & Auto Diff ([id number])Indication: Leukopenia On: :00 Request CBC, Platelets & Auto Diff ([id number])Indication: Leukopenia On: 05-Jun-2026 Request CBC, Platelets & Auto Diff ([id number])Indication: Leukopenia On: 07-Mar-2026 Request CBC, Platelets & Auto Diff ([id number])Indication: Leukopenia On: :00 Request CBC, Platelets & Auto Diff ([id number])Indication: Leukopenia On: :00 Request CBC, Platelets & Auto Diff ([id number])Indication: Leukopenia On: 10-Jun-2025 Request CBC, Platelets & Auto Diff ([id number])Indication: Leukopenia On: 12-Mar-2025 Request CBC, Platelets & Auto Diff ([id number])Indication: Leukopenia On: :00 Request CBC, Platelets & Auto Diff ([id number])Indication: Leukopenia On: :00 Request CBC, Platelets & Auto Diff ([id number])Indication: Leukopenia On: :00 Request CBC, Platelets & Auto Diff ([id number])Indication: Leukopenia On: 17-Mar-2024 Request CBC, Platelets & Auto Diff ([id number])Indication: Leukopenia On: :00 Request CBC, Platelets & Auto Diff ([id number])Indication: Leukopenia On: :00 Request CBC, Platelets & Auto Diff ([id number])Indication: Leukopenia On: :00 Request CBC, Platelets & Auto Diff ([id number])Indication: Leukopenia On: 23-Mar-2023 Request CBC, Platelets & Auto Diff ([id number])Indication: Leukopenia On: :00 Request CBC, Platelets & Auto Diff ([id number])Indication: Leukopenia On: :00 Request CBC, Platelets & Auto Diff ([id number])Indication: Leukopenia On: :00 Request CBC, Platelets & Auto Diff ([id number])Indication: Leukopenia On: 28-Mar-2022 Request CBC, Platelets & Auto Diff ([id number])Indication: Leukopenia On: :00 Request CBC, Platelets & Auto Diff ([id number])Indication: Leukopenia On: : Request CBC, Platelets & Auto Diff ([id number])Indication: Leukopenia On: :00 Request CBC, Platelets & Auto Diff ([id number])Indication: Leukopenia On: 02-Apr-2021 Request CBC, Platelets & Auto Diff ([id number])Indication: Leukopenia On: :00 Request CBC, Platelets & Auto Diff ([id number])Indication: Leukopenia On: :00 Request CBC, Platelets & Auto Diff ([id number])Indication: Leukopenia On: :00 Request CBC, Platelets & Auto Diff ([id number])Indication: Leukopenia On: 07-Apr-2020 Request CBC, Platelets & Auto Diff ([id number])Indication: Leukopenia On: 08-Jan-2020 Request CBC, Platelets & Auto Diff ([id number])Indication: Leukopenia On: 10-Oct-2019 Request CBC, Platelets & Auto Diff ([id number])Indication: Leukopenia On: 12-Jul-2019 Request CBC, Platelets & Auto Diff ([id number])Indication: Leukopenia On: 13-Apr-2019 Request PT (PROTHROMBIN TIME) ([id number]) : standing orderIndication: History of DVT (deep vein thrombosis) On: 02-Mar-2019 Request Comments: standing order PT (PROTHROMBIN TIME) ([id number]) : standing orderIndication: History of DVT (deep vein thrombosis) On: 01-Mar-2019 Request Comments: standing order PT (PROTHROMBIN TIME) ([id number]) : standing orderIndication: History of DVT (deep vein thrombosis) On: 28-Feb-2019 Request Comments: standing order PT (PROTHROMBIN TIME) ([id number]) : standing orderIndication: History of DVT (deep vein thrombosis) On: 27-Feb-2019 Request Comments: standing order PT (PROTHROMBIN TIME) ([id number]) : standing orderIndication: History of DVT (deep vein thrombosis) On: 26-Feb-2019 Request Comments: standing order PT (PROTHROMBIN TIME) ([id number])Indication: History of DVT (deep vein thrombosis) On: 25-Feb-2019 Request PT (PROTHROMBIN TIME) ([id number]) : standing orderIndication: History of DVT (deep vein thrombosis) On: 25-Feb-2019 Request Comments: standing order PT (PROTHROMBIN TIME) ([id number]) : standing orderIndication: History of DVT (deep vein thrombosis) On: 25-Feb-2019 Request Comments: standing order PT (PROTHROMBIN TIME) ([id number]) : standing orderIndication: History of DVT (deep vein thrombosis) On: 24-Feb-2019 Request Comments: standing order PT (PROTHROMBIN TIME) ([id number]) : standing orderIndication: History of DVT (deep vein thrombosis) On: 23-Feb-2019 Request Comments: standing order PT (PROTHROMBIN TIME) ([id number]) : standing orderIndication: History of DVT (deep vein thrombosis) On: 22-Feb-2019 Request Comments: standing order PT (PROTHROMBIN TIME) ([id number]) : standing orderIndication: History of DVT (deep vein thrombosis) On: 21-Feb-2019 Request Comments: standing order PT (PROTHROMBIN TIME) ([id number]) : standing orderIndication: History of DVT (deep vein thrombosis) On: 20-Feb-2019 Request Comments: standing order PT (PROTHROMBIN TIME) ([id number]) : standing orderIndication: History of DVT (deep vein thrombosis) On: 19-Feb-2019 Request Comments: standing order PT (PROTHROMBIN TIME) ([id number]) : standing orderIndication: History of DVT (deep vein thrombosis) On: 18-Feb-2019 Request Comments: standing order PT (PROTHROMBIN TIME) ([id number]) : standing orderIndication: History of DVT (deep vein thrombosis) On: 17-Feb-2019 Request Comments: standing order PT (PROTHROMBIN TIME) ([id number]) : standing orderIndication: History of DVT (deep vein thrombosis) On: 16-Feb-2019 Request Comments: standing order PT (PROTHROMBIN TIME) ([id number]) : standing orderIndication: History of DVT (deep vein thrombosis) On: 15-Feb-2019 Request Comments: standing order PT (PROTHROMBIN TIME) ([id number]) : standing orderIndication: History of DVT (deep vein thrombosis) On: 14-Feb-2019 Request Comments: standing order PT (PROTHROMBIN TIME) ([id number]) : standing orderIndication: History of DVT (deep vein thrombosis) On: 13-Feb-2019 Request Comments: standing order PT (PROTHROMBIN TIME) ([id number]) : standing orderIndication: History of DVT (deep vein thrombosis) On: 12-Feb-2019 Request Comments: standing order PT (PROTHROMBIN TIME) ([id number]) : standing orderIndication: History of DVT (deep vein thrombosis) On: 11-Feb-2019 Request Comments: standing order PT (PROTHROMBIN TIME) ([id number]) : standing orderIndication: History of DVT (deep vein thrombosis) On: 10-Feb-2019 Request Comments: standing order PT (PROTHROMBIN TIME) ([id number]) : standing orderIndication: History of DVT (deep vein thrombosis) On: 09-Feb-2019 Request Comments: standing order PT (PROTHROMBIN TIME) ([id number]) : standing orderIndication: History of DVT (deep vein thrombosis) On: 08-Feb-2019 Request Comments: standing order PT (PROTHROMBIN TIME) ([id number]) : standing orderIndication: History of DVT (deep vein thrombosis) On: 07-Feb-2019 Request Comments: standing order PT (PROTHROMBIN TIME) ([id number]) : standing orderIndication: History of DVT (deep vein thrombosis) On: 06-Feb-2019 Request Comments: standing order PT (PROTHROMBIN TIME) ([id number]) : standing orderIndication: History of DVT (deep vein thrombosis) On: 05-Feb-2019 Request Comments: standing order PT (PROTHROMBIN TIME) ([id number]) : standing orderIndication: History of DVT (deep vein thrombosis) On: 04-Feb-2019 Request Comments: standing order PT (PROTHROMBIN TIME) ([id number]) : standing orderIndication: History of DVT (deep vein thrombosis) On: 03-Feb-2019 Request Comments: standing order PT (PROTHROMBIN TIME) ([id number]) : standing orderIndication: History of DVT (deep vein thrombosis) On: 02-Feb-2019 Request Comments: standing order PT (PROTHROMBIN TIME) ([id number]) : standing orderIndication: History of DVT (deep vein thrombosis) On: 01-Feb-2019 Request Comments: standing order PT (PROTHROMBIN TIME) ([id number]) : standing orderIndication: History of DVT (deep vein thrombosis) On: 31-Jan-2019 Request Comments: standing order PT (PROTHROMBIN TIME) ([id number]) : standing orderIndication: History of DVT (deep vein thrombosis) On: 30-Jan-2019 Request Comments: standing order PT (PROTHROMBIN TIME) ([id number]) : standing orderIndication: History of DVT (deep vein thrombosis) On: 29-Jan-2019 Request Comments: standing order PT (Prothrobim Time) ([id number])Indication: History of DVT (deep vein thrombosis) On: 28-Jan-2019 Request Comments: INR PT (PROTHROMBIN TIME) ([id number]) : standing orderIndication: History of DVT (deep vein thrombosis) On: 28-Jan-2019 Request Comments: standing order PT (PROTHROMBIN TIME) ([id number]) : standing orderIndication: History of DVT (deep vein thrombosis) On: 27-Jan-2019 Request Comments: standing order PT (PROTHROMBIN TIME) ([id number])Indication: History of DVT (deep vein thrombosis) On: 26-Jan-2019 Request PT (PROTHROMBIN TIME) ([id number]) : standing orderIndication: History of DVT (deep vein thrombosis) On: 26-Jan-2019 Request Comments: standing order PT (PROTHROMBIN TIME) ([id number]) : standing orderIndication: History of DVT (deep vein thrombosis) On: 26-Jan-2019 Request Comments: standing order PT (PROTHROMBIN TIME) ([id number]) : standing orderIndication: History of DVT (deep vein thrombosis) On: 25-Jan-2019 Request Comments: standing order PT (PROTHROMBIN TIME) ([id number]) : standing orderIndication: History of DVT (deep vein thrombosis) On: 24-Jan-2019 Request Comments: standing order PT (PROTHROMBIN TIME) ([id number]) : standing orderIndication: History of DVT (deep vein thrombosis) On: 23-Jan-2019 Request Comments: standing order PT (PROTHROMBIN TIME) ([id number]) : standing orderIndication: History of DVT (deep vein thrombosis) On: 22-Jan-2019 Request Comments: standing order PT (PROTHROMBIN TIME) ([id number]) : standing orderIndication: History of DVT (deep vein thrombosis) On: 21-Jan-2019 Request Comments: standing order PT (PROTHROMBIN TIME) ([id number]) : standing orderIndication: History of DVT (deep vein thrombosis) On: 20-Jan-2019 Request Comments: standing order PT (PROTHROMBIN TIME) ([id number]) : standing orderIndication: History of DVT (deep vein thrombosis) On: 19-Jan-2019 Request Comments: standing order PT (PROTHROMBIN TIME) ([id number]) : standing orderIndication: History of DVT (deep vein thrombosis) On: 18-Jan-2019 Request Comments: standing order PT (PROTHROMBIN TIME) ([id number]) : standing orderIndication: History of DVT (deep vein thrombosis) On: 17-Jan-2019 Request Comments: standing order PT (PROTHROMBIN TIME) ([id number]) : standing orderIndication: History of DVT (deep vein thrombosis) On: 16-Jan-2019 Request Comments: standing order PT (PROTHROMBIN TIME) ([id number]) : standing orderIndication: History of DVT (deep vein thrombosis) On: 15-Jan-2019 Request Comments: standing order PT (PROTHROMBIN TIME) ([id number]) : standing orderIndication: History of DVT (deep vein thrombosis) On: 14-Jan-2019 Request Comments: standing order CBC, Platelets & Auto Diff ([id number])Indication: Leukopenia On: 13-Jan-2019 Request PT (PROTHROMBIN TIME) ([id number]) : standing orderIndication: History of DVT (deep vein thrombosis) On: 13-Jan-2019 Request Comments: standing order PT (PROTHROMBIN TIME) ([id number]) : standing orderIndication: History of DVT (deep vein thrombosis) On: 12-Jan-2019 Request Comments: standing order PT (PROTHROMBIN TIME) ([id number]) : standing orderIndication: History of DVT (deep vein thrombosis) On: 11-Jan-2019 Request Comments: standing order PT (PROTHROMBIN TIME) ([id number]) : standing orderIndication: History of DVT (deep vein thrombosis) On: 10-Jan-2019 Request Comments: standing order PT (PROTHROMBIN TIME) ([id number]) : standing orderIndication: History of DVT (deep vein thrombosis) On: 09-Jan-2019 Request Comments: standing order PT (PROTHROMBIN TIME) ([id number]) : standing orderIndication: History of DVT (deep vein thrombosis) On: 08-Jan-2019 Request Comments: standing order PT (PROTHROMBIN TIME) ([id number]) : standing orderIndication: History of DVT (deep vein thrombosis) On: 07-Jan-2019 Request Comments: standing order PT (PROTHROMBIN TIME) ([id number]) : standing orderIndication: History of DVT (deep vein thrombosis) On: 06-Jan-2019 Request Comments: standing order PT (PROTHROMBIN TIME) ([id number]) : standing orderIndication: History of DVT (deep vein thrombosis) On: 05-Jan-2019 Request Comments: standing order PT (PROTHROMBIN TIME) ([id number]) : standing orderIndication: History of DVT (deep vein thrombosis) On: 04-Jan-2019 Request Comments: standing order PT (PROTHROMBIN TIME) ([id number]) : standing orderIndication: History of DVT (deep vein thrombosis) On: 03-Jan-2019 Request Comments: standing order PT (PROTHROMBIN TIME) ([id number]) : standing orderIndication: History of DVT (deep vein thrombosis) On: 02-Jan-2019 Request Comments: standing order PT (PROTHROMBIN TIME) ([id number]) : standing orderIndication: History of DVT (deep vein thrombosis) On: 01-Jan-2019 Request Comments: standing order PT (PROTHROMBIN TIME) ([id number]) : standing orderIndication: History of DVT (deep vein thrombosis) On: 31-Dec-2018 Request Comments: standing order PT (PROTHROMBIN TIME) ([id number]) : standing orderIndication: History of DVT (deep vein thrombosis) On: 30-Dec-2018 Request Comments: standing order PT (Prothrobim Time) ([id number])Indication: History of DVT (deep vein thrombosis) On: 29-Dec-2018 Request Comments: INR PT (PROTHROMBIN TIME) ([id number]) : standing orderIndication: History of DVT (deep vein thrombosis) On: 29-Dec-2018 Request Comments: standing order PT (PROTHROMBIN TIME) ([id number]) : standing orderIndication: History of DVT (deep vein thrombosis) On: 28-Dec-2018 Request Comments: standing order PT (PROTHROMBIN TIME) ([id number])Indication: History of DVT (deep vein thrombosis) On: 27-Dec-2018 Request PT (PROTHROMBIN TIME) ([id number]) : standing orderIndication: History of DVT (deep vein thrombosis) On: 27-Dec-2018 Request Comments: standing order PT (PROTHROMBIN TIME) ([id number]) : standing orderIndication: History of DVT (deep vein thrombosis) On: 27-Dec-2018 Request Comments: standing order PT (PROTHROMBIN TIME) ([id number]) : standing orderIndication: History of DVT (deep vein thrombosis) On: 26-Dec-2018 Request Comments: standing order PT (PROTHROMBIN TIME) ([id number]) : standing orderIndication: History of DVT (deep vein thrombosis) On: 25-Dec-2018 Request Comments: standing order PT (PROTHROMBIN TIME) ([id number]) : standing orderIndication: History of DVT (deep vein thrombosis) On: 24-Dec-2018 Request Comments: standing order PT (PROTHROMBIN TIME) ([id number]) : standing orderIndication: History of DVT (deep vein thrombosis) On: 23-Dec-2018 Request Comments: standing order PT (PROTHROMBIN TIME) ([id number]) : standing orderIndication: History of DVT (deep vein thrombosis) On: 22-Dec-2018 Request Comments: standing order PT (PROTHROMBIN TIME) ([id number]) : standing orderIndication: History of DVT (deep vein thrombosis) On: 21-Dec-2018 Request Comments: standing order PT (PROTHROMBIN TIME) ([id number]) : standing orderIndication: History of DVT (deep vein thrombosis) On: 20-Dec-2018 Request Comments: standing order PT (PROTHROMBIN TIME) ([id number]) : standing orderIndication: History of DVT (deep vein thrombosis) On: 19-Dec-2018 Request Comments: standing order PT (PROTHROMBIN TIME) ([id number]) : standing orderIndication: History of DVT (deep vein thrombosis) On: 18-Dec-2018 Request Comments: standing order PT (PROTHROMBIN TIME) ([id number]) : standing orderIndication: History of DVT (deep vein thrombosis) On: 17-Dec-2018 Request Comments: standing order PT (PROTHROMBIN TIME) ([id number]) : standing orderIndication: History of DVT (deep vein thrombosis) On: 16-Dec-2018 Request Comments: standing order PT (PROTHROMBIN TIME) ([id number]) : standing orderIndication: History of DVT (deep vein thrombosis) On: 15-Dec-2018 Request Comments: standing order PT (PROTHROMBIN TIME) ([id number]) : standing orderIndication: History of DVT (deep vein thrombosis) On: 14-Dec-2018 Request Comments: standing order PT (PROTHROMBIN TIME) ([id number]) : standing orderIndication: History of DVT (deep vein thrombosis) On: 13-Dec-2018 Request Comments: standing order PT (PROTHROMBIN TIME) ([id number]) : standing orderIndication: History of DVT (deep vein thrombosis) On: 12-Dec-2018 Request Comments: standing order PT (PROTHROMBIN TIME) ([id number]) : standing orderIndication: History of DVT (deep vein thrombosis) On: 11-Dec-2018 Request Comments: standing order PT (PROTHROMBIN TIME) ([id number]) : standing orderIndication: History of DVT (deep vein thrombosis) On: 10-Dec-2018 Request Comments: standing order PT (PROTHROMBIN TIME) ([id number]) : standing orderIndication: History of DVT (deep vein thrombosis) On: 09-Dec-2018 Request Comments: standing order PT (PROTHROMBIN TIME) ([id number]) : standing orderIndication: History of DVT (deep vein thrombosis) On: 08-Dec-2018 Request Comments: standing order PT (PROTHROMBIN TIME) ([id number]) : standing orderIndication: History of DVT (deep vein thrombosis) On: 07-Dec-2018 Request Comments: standing order PT (PROTHROMBIN TIME) ([id number]) : standing orderIndication: History of DVT (deep vein thrombosis) On: 06-Dec-2018 Request Comments: standing order PT (PROTHROMBIN TIME) ([id number]) : standing orderIndication: History of DVT (deep vein thrombosis) On: 05-Dec-2018 Request Comments: standing order PT (PROTHROMBIN TIME) ([id number]) : standing orderIndication: History of DVT (deep vein thrombosis) On: 04-Dec-2018 Request Comments: standing order PT (PROTHROMBIN TIME) ([id number]) : standing orderIndication: History of DVT (deep vein thrombosis) On: 03-Dec-2018 Request Comments: standing order PT (PROTHROMBIN TIME) ([id number]) : standing orderIndication: History of DVT (deep vein thrombosis) On: 02-Dec-2018 Request Comments: standing order PT (PROTHROMBIN TIME) ([id number]) : standing orderIndication: History of DVT (deep vein thrombosis) On: 01-Dec-2018 Request Comments: standing order PT (PROTHROMBIN TIME) ([id number]) : standing orderIndication: History of DVT (deep vein thrombosis) On: 30-Nov-2018 Request Comments: standing order PT (Prothrobim Time) ([id number])Indication: History of DVT (deep vein thrombosis) On: 29-Nov-2018 Request Comments: INR PT (PROTHROMBIN TIME) ([id number]) : standing orderIndication: History of DVT (deep vein thrombosis) On: 29-Nov-2018 Request Comments: standing order PT (PROTHROMBIN TIME) ([id number]) : standing orderIndication: History of DVT (deep vein thrombosis) On: 28-Nov-2018 Request Comments: standing order PT (PROTHROMBIN TIME) ([id number])Indication: History of DVT (deep vein thrombosis) On: 27-Nov-2018 Request PT (PROTHROMBIN TIME) ([id number]) : standing orderIndication: History of DVT (deep vein thrombosis) On: 27-Nov-2018 Request Comments: standing order PT (PROTHROMBIN TIME) ([id number]) : standing orderIndication: History of DVT (deep vein thrombosis) On: 27-Nov-2018 Request Comments: standing order PT (PROTHROMBIN TIME) ([id number]) : standing orderIndication: History of DVT (deep vein thrombosis) On: 26-Nov-2018 Request Comments: standing order PT (PROTHROMBIN TIME) ([id number]) : standing orderIndication: History of DVT (deep vein thrombosis) On: 25-Nov-2018 Request Comments: standing order PT (PROTHROMBIN TIME) ([id number]) : standing orderIndication: History of DVT (deep vein thrombosis) On: 24-Nov-2018 Request Comments: standing order PT (PROTHROMBIN TIME) ([id number]) : standing orderIndication: History of DVT (deep vein thrombosis) On: 23-Nov-2018 Request Comments: standing order PT (PROTHROMBIN TIME) ([id number]) : standing orderIndication: History of DVT (deep vein thrombosis) On: 22-Nov-2018 Request Comments: standing order PT (PROTHROMBIN TIME) ([id number]) : standing orderIndication: History of DVT (deep vein thrombosis) On: 21-Nov-2018 Request Comments: standing order PT (PROTHROMBIN TIME) ([id number]) : standing orderIndication: History of DVT (deep vein thrombosis) On: 20-Nov-2018 Request Comments: standing order PT (PROTHROMBIN TIME) ([id number]) : standing orderIndication: History of DVT (deep vein thrombosis) On: 19-Nov-2018 Request Comments: standing order PT (PROTHROMBIN TIME) ([id number]) : standing orderIndication: History of DVT (deep vein thrombosis) On: 18-Nov-2018 Request Comments: standing order PT (PROTHROMBIN TIME) ([id number]) : standing orderIndication: History of DVT (deep vein thrombosis) On: 17-Nov-2018 Request Comments: standing order PT (PROTHROMBIN TIME) ([id number]) : standing orderIndication: History of DVT (deep vein thrombosis) On: 16-Nov-2018 Request Comments: standing order PT (PROTHROMBIN TIME) ([id number]) : standing orderIndication: History of DVT (deep vein thrombosis) On: 15-Nov-2018 Request Comments: standing order PT (PROTHROMBIN TIME) ([id number]) : standing orderIndication: History of DVT (deep vein thrombosis) On: 14-Nov-2018 Request Comments: standing order PT (PROTHROMBIN TIME) ([id number]) : standing orderIndication: History of DVT (deep vein thrombosis) On: 13-Nov-2018 Request Comments: standing order PT (PROTHROMBIN TIME) ([id number]) : standing orderIndication: History of DVT (deep vein thrombosis) On: 12-Nov-2018 Request Comments: standing order PT (PROTHROMBIN TIME) ([id number]) : standing orderIndication: History of DVT (deep vein thrombosis) On: 11-Nov-2018 Request Comments: standing order PT (PROTHROMBIN TIME) ([id number]) : standing orderIndication: History of DVT (deep vein thrombosis) On: 10-Nov-2018 Request Comments: standing order PT (PROTHROMBIN TIME) ([id number]) : standing orderIndication: History of DVT (deep vein thrombosis) On: 09-Nov-2018 Request Comments: standing order PT (PROTHROMBIN TIME) ([id number]) : standing orderIndication: History of DVT (deep vein thrombosis) On: 08-Nov-2018 Request Comments: standing order PT (PROTHROMBIN TIME) ([id number]) : standing orderIndication: History of DVT (deep vein thrombosis) On: 07-Nov-2018 Request Comments: standing order PT (PROTHROMBIN TIME) ([id number]) : standing orderIndication: History of DVT (deep vein thrombosis) On: 06-Nov-2018 Request Comments: standing order PT (PROTHROMBIN TIME) ([id number]) : standing orderIndication: History of DVT (deep vein thrombosis) On: 05-Nov-2018 Request Comments: standing order PT (PROTHROMBIN TIME) ([id number]) : standing orderIndication: History of DVT (deep vein thrombosis) On: 04-Nov-2018 Request Comments: standing order PT (PROTHROMBIN TIME) ([id number]) : standing orderIndication: History of DVT (deep vein thrombosis) On: 03-Nov-2018 Request Comments: standing order PT (PROTHROMBIN TIME) ([id number]) : standing orderIndication: History of DVT (deep vein thrombosis) On: 02-Nov-2018 Request Comments: standing order PT (PROTHROMBIN TIME) ([id number]) : standing orderIndication: History of DVT (deep vein thrombosis) On: 01-Nov-2018 Request Comments: standing order PT (PROTHROMBIN TIME) ([id number]) : standing orderIndication: History of DVT (deep vein thrombosis) On: 31-Oct-2018 Request Comments: standing order PT (Prothrobim Time) ([id number])Indication: History of DVT (deep vein thrombosis) On: 30-Oct-2018 Request Comments: INR PT (PROTHROMBIN TIME) ([id number]) : standing orderIndication: History of DVT (deep vein thrombosis) On: 30-Oct-2018 Request Comments: standing order PT (PROTHROMBIN TIME) ([id number]) : standing orderIndication: History of DVT (deep vein thrombosis) On: 29-Oct-2018 Request Comments: standing order PT (PROTHROMBIN TIME) ([id number])Indication: History of DVT (deep vein thrombosis) On: 28-Oct-2018 Request PT (PROTHROMBIN TIME) ([id number]) : standing orderIndication: History of DVT (deep vein thrombosis) On: 28-Oct-2018 Request Comments: standing order PT (PROTHROMBIN TIME) ([id number]) : standing orderIndication: History of DVT (deep vein thrombosis) On: 28-Oct-2018 Request Comments: standing order PT (PROTHROMBIN TIME) ([id number]) : standing orderIndication: History of DVT (deep vein thrombosis) On: 27-Oct-2018 Request Comments: standing order PT (PROTHROMBIN TIME) ([id number]) : standing orderIndication: History of DVT (deep vein thrombosis) On: 26-Oct-2018 Request Comments: standing order PT (PROTHROMBIN TIME) ([id number]) : standing orderIndication: History of DVT (deep vein thrombosis) On: 25-Oct-2018 Request Comments: standing order PT (PROTHROMBIN TIME) ([id number]) : standing orderIndication: History of DVT (deep vein thrombosis) On: 24-Oct-2018 Request Comments: standing order PT (PROTHROMBIN TIME) ([id number]) : standing orderIndication: History of DVT (deep vein thrombosis) On: 23-Oct-2018 Request Comments: standing order PT (PROTHROMBIN TIME) ([id number]) : standing orderIndication: History of DVT (deep vein thrombosis) On: 22-Oct-2018 Request Comments: standing order PT (PROTHROMBIN TIME) ([id number]) : standing orderIndication: History of DVT (deep vein thrombosis) On: 21-Oct-2018 Request Comments: standing order PT (PROTHROMBIN TIME) ([id number]) : standing orderIndication: History of DVT (deep vein thrombosis) On: 20-Oct-2018 Request Comments: standing order PT (PROTHROMBIN TIME) ([id number]) : standing orderIndication: History of DVT (deep vein thrombosis) On: 19-Oct-2018 Request Comments: standing order PT (PROTHROMBIN TIME) ([id number]) : standing orderIndication: History of DVT (deep vein thrombosis) On: 18-Oct-2018 Request Comments: standing order PT (PROTHROMBIN TIME) ([id number]) : standing orderIndication: History of DVT (deep vein thrombosis) On: 17-Oct-2018 Request Comments: standing order PT (PROTHROMBIN TIME) ([id number]) : standing orderIndication: History of DVT (deep vein thrombosis) On: 16-Oct-2018 Request Comments: standing order CBC, Platelets & Auto Diff ([id number])Indication: Leukopenia On: 15-Oct-2018 Request PT (PROTHROMBIN TIME) ([id number]) : standing orderIndication: History of DVT (deep vein thrombosis) On: 15-Oct-2018 Request Comments: standing order PT (PROTHROMBIN TIME) ([id number]) : standing orderIndication: History of DVT (deep vein thrombosis) On: 14-Oct-2018 Request Comments: standing order PT (PROTHROMBIN TIME) ([id number]) : standing orderIndication: History of DVT (deep vein thrombosis) On: 13-Oct-2018 Request Comments: standing order PT (PROTHROMBIN TIME) ([id number]) : standing orderIndication: History of DVT (deep vein thrombosis) On: 12-Oct-2018 Request Comments: standing order PT (PROTHROMBIN TIME) ([id number]) : standing orderIndication: History of DVT (deep vein thrombosis) On: 11-Oct-2018 Request Comments: standing order PT (PROTHROMBIN TIME) ([id number]) : standing orderIndication: History of DVT (deep vein thrombosis) On: 10-Oct-2018 Request Comments: standing order PT (PROTHROMBIN TIME) ([id number]) : standing orderIndication: History of DVT (deep vein thrombosis) On: 09-Oct-2018 Request Comments: standing order PT (PROTHROMBIN TIME) ([id number]) : standing orderIndication: History of DVT (deep vein thrombosis) On: 08-Oct-2018 Request Comments: standing order PT (PROTHROMBIN TIME) ([id number]) : standing orderIndication: History of DVT (deep vein thrombosis) On: 07-Oct-2018 Request Comments: standing order PT (PROTHROMBIN TIME) ([id number]) : standing orderIndication: History of DVT (deep vein thrombosis) On: 06-Oct-2018 Request Comments: standing order PT (PROTHROMBIN TIME) ([id number]) : standing orderIndication: History of DVT (deep vein thrombosis) On: 05-Oct-2018 Request Comments: standing order PT (PROTHROMBIN TIME) ([id number]) : standing orderIndication: History of DVT (deep vein thrombosis) On: 04-Oct-2018 Request Comments: standing order PT (PROTHROMBIN TIME) ([id number]) : standing orderIndication: History of DVT (deep vein thrombosis) On: 03-Oct-2018 Request Comments: standing order PT (PROTHROMBIN TIME) ([id number]) : standing orderIndication: History of DVT (deep vein thrombosis) On: 02-Oct-2018 Request Comments: standing order PT (PROTHROMBIN TIME) ([id number]) : standing orderIndication: History of DVT (deep vein thrombosis) On: 01-Oct-2018 Request Comments: standing order PT (Prothrobim Time) ([id number])Indication: History of DVT (deep vein thrombosis) On: 30-Sep-2018 Request Comments: INR PT (PROTHROMBIN TIME) ([id number]) : standing orderIndication: History of DVT (deep vein thrombosis) On: 30-Sep-2018 Request Comments: standing order PT (PROTHROMBIN TIME) ([id number]) : standing orderIndication: History of DVT (deep vein thrombosis) On: 29-Sep-2018 Request Comments: standing order PT (PROTHROMBIN TIME) ([id number])Indication: History of DVT (deep vein thrombosis) On: 28-Sep-2018 Request PT (PROTHROMBIN TIME) ([id number]) : standing orderIndication: History of DVT (deep vein thrombosis) On: 28-Sep-2018 Request Comments: standing order PT (PROTHROMBIN TIME) ([id number]) : standing orderIndication: History of DVT (deep vein thrombosis) On: 28-Sep-2018 Request Comments: standing order PT (PROTHROMBIN TIME) ([id number]) : standing orderIndication: History of DVT (deep vein thrombosis) On: 27-Sep-2018 Request Comments: standing order PT (PROTHROMBIN TIME) ([id number]) : standing orderIndication: History of DVT (deep vein thrombosis) On: 26-Sep-2018 Request Comments: standing order PT (PROTHROMBIN TIME) ([id number]) : standing orderIndication: History of DVT (deep vein thrombosis) On: 25-Sep-2018 Request Comments: standing order PT (PROTHROMBIN TIME) ([id number]) : standing orderIndication: History of DVT (deep vein thrombosis) On: 24-Sep-2018 Request Comments: standing order PT (PROTHROMBIN TIME) ([id number]) : standing orderIndication: History of DVT (deep vein thrombosis) On: 23-Sep-2018 Request Comments: standing order PT (PROTHROMBIN TIME) ([id number]) : standing orderIndication: History of DVT (deep vein thrombosis) On: 22-Sep-2018 Request Comments: standing order PT (PROTHROMBIN TIME) ([id number]) : standing orderIndication: History of DVT (deep vein thrombosis) On: 21-Sep-2018 Request Comments: standing order PT (PROTHROMBIN TIME) ([id number]) : standing orderIndication: History of DVT (deep vein thrombosis) On: 20-Sep-2018 Request Comments: standing order PT (PROTHROMBIN TIME) ([id number]) : standing orderIndication: History of DVT (deep vein thrombosis) On: 19-Sep-2018 Request Comments: standing order PT (PROTHROMBIN TIME) ([id number]) : standing orderIndication: History of DVT (deep vein thrombosis) On: 18-Sep-2018 Request Comments: standing order PT (PROTHROMBIN TIME) ([id number]) : standing orderIndication: History of DVT (deep vein thrombosis) On: 17-Sep-2018 Request Comments: standing order PT (PROTHROMBIN TIME) ([id number]) : standing orderIndication: History of DVT (deep vein thrombosis) On: 17-Sep-2018 Request Comments: standing order PT (PROTHROMBIN TIME) ([id number]) : standing orderIndication: History of DVT (deep vein thrombosis) On: 16-Sep-2018 Request Comments: standing order PT (PROTHROMBIN TIME) ([id number]) : standing orderIndication: History of DVT (deep vein thrombosis) On: 16-Sep-2018 Request Comments: standing order PT (PROTHROMBIN TIME) ([id number]) : standing orderIndication: History of DVT (deep vein thrombosis) On: 15-Sep-2018 Request Comments: standing order PT (PROTHROMBIN TIME) ([id number]) : standing orderIndication: History of DVT (deep vein thrombosis) On: 15-Sep-2018 Request Comments: standing order PT (PROTHROMBIN TIME) ([id number]) : standing orderIndication: History of DVT (deep vein thrombosis) On: 14-Sep-2018 Request Comments: standing order PT (PROTHROMBIN TIME) ([id number]) : standing orderIndication: History of DVT (deep vein thrombosis) On: 14-Sep-2018 Request Comments: standing order PT (PROTHROMBIN TIME) ([id number]) : standing orderIndication: History of DVT (deep vein thrombosis) On: 13-Sep-2018 Request Comments: standing order PT (PROTHROMBIN TIME) ([id number]) : standing orderIndication: History of DVT (deep vein thrombosis) On: 13-Sep-2018 Request Comments: standing order PT (PROTHROMBIN TIME) ([id number]) : standing orderIndication: History of DVT (deep vein thrombosis) On: 12-Sep-2018 Request Comments: standing order PT (PROTHROMBIN TIME) ([id number]) : standing orderIndication: History of DVT (deep vein thrombosis) On: 12-Sep-2018 Request Comments: standing order PT (PROTHROMBIN TIME) ([id number]) : standing orderIndication: History of DVT (deep vein thrombosis) On: 11-Sep-2018 Request Comments: standing order PT (PROTHROMBIN TIME) ([id number]) : standing orderIndication: History of DVT (deep vein thrombosis) On: 11-Sep-2018 Request Comments: standing order PT (PROTHROMBIN TIME) ([id number]) : standing orderIndication: History of DVT (deep vein thrombosis) On: 10-Sep-2018 Request Comments: standing order PT (PROTHROMBIN TIME) ([id number]) : standing orderIndication: History of DVT (deep vein thrombosis) On: 10-Sep-2018 Request Comments: standing order PT (PROTHROMBIN TIME) ([id number]) : standing orderIndication: History of DVT (deep vein thrombosis) On: 09-Sep-2018 Request Comments: standing order PT (PROTHROMBIN TIME) ([id number]) : standing orderIndication: History of DVT (deep vein thrombosis) On: 09-Sep-2018 Request Comments: standing order PT (PROTHROMBIN TIME) ([id number]) : standing orderIndication: History of DVT (deep vein thrombosis) On: 08-Sep-2018 Request Comments: standing order PT (PROTHROMBIN TIME) ([id number]) : standing orderIndication: History of DVT (deep vein thrombosis) On: 08-Sep-2018 Request Comments: standing order PT (PROTHROMBIN TIME) ([id number]) : standing orderIndication: History of DVT (deep vein thrombosis) On: 07-Sep-2018 Request Comments: standing order PT (PROTHROMBIN TIME) ([id number]) : standing orderIndication: History of DVT (deep vein thrombosis) On: 07-Sep-2018 Request Comments: standing order PT (PROTHROMBIN TIME) ([id number]) : standing orderIndication: History of DVT (deep vein thrombosis) On: 06-Sep-2018 Request Comments: standing order PT (PROTHROMBIN TIME) ([id number]) : standing orderIndication: History of DVT (deep vein thrombosis) On: 06-Sep-2018 Request Comments: standing order PT (PROTHROMBIN TIME) ([id number]) : standing orderIndication: History of DVT (deep vein thrombosis) On: 05-Sep-2018 Request Comments: standing order PT (PROTHROMBIN TIME) ([id number]) : standing orderIndication: History of DVT (deep vein thrombosis) On: 05-Sep-2018 Request Comments: standing order PT (PROTHROMBIN TIME) ([id number]) : standing orderIndication: History of DVT (deep vein thrombosis) On: 04-Sep-2018 Request Comments: standing order PT (PROTHROMBIN TIME) ([id number]) : standing orderIndication: History of DVT (deep vein thrombosis) On: 04-Sep-2018 Request Comments: standing order PT (PROTHROMBIN TIME) ([id number]) : standing orderIndication: History of DVT (deep vein thrombosis) On: 03-Sep-2018 Request Comments: standing order PT (PROTHROMBIN TIME) ([id number]) : standing orderIndication: History of DVT (deep vein thrombosis) On: 03-Sep-2018 Request Comments: standing order PT (PROTHROMBIN TIME) ([id number]) : standing orderIndication: History of DVT (deep vein thrombosis) On: 02-Sep-2018 Request Comments: standing order PT (PROTHROMBIN TIME) ([id number]) : standing orderIndication: History of DVT (deep vein thrombosis) On: 02-Sep-2018 Request Comments: standing order PT (PROTHROMBIN TIME) ([id number]) : standing orderIndication: History of DVT (deep vein thrombosis) On: 01-Sep-2018 Request Comments: standing order PT (PROTHROMBIN TIME) ([id number]) : standing orderIndication: History of DVT (deep vein thrombosis) On: 01-Sep-2018 Request Comments: standing order PT (Prothrobim Time) ([id number])Indication: History of DVT (deep vein thrombosis) On: 31-Aug-2018 Request Comments: INR PT (PROTHROMBIN TIME) ([id number]) : standing orderIndication: History of DVT (deep vein thrombosis) On: 31-Aug-2018 Request Comments: standing order PT (PROTHROMBIN TIME) ([id number]) : standing orderIndication: History of DVT (deep vein thrombosis) On: 31-Aug-2018 Request Comments: standing order PT (PROTHROMBIN TIME) ([id number]) : standing orderIndication: History of DVT (deep vein thrombosis) On: 30-Aug-2018 Request Comments: standing order PT (PROTHROMBIN TIME) ([id number]) : standing orderIndication: History of DVT (deep vein thrombosis) On: 30-Aug-2018 Request Comments: standing order PT (PROTHROMBIN TIME) ([id number])Indication: History of DVT (deep vein thrombosis) On: 29-Aug-2018 Request PT (PROTHROMBIN TIME) ([id number]) : standing orderIndication: History of DVT (deep vein thrombosis) On: 29-Aug-2018 Request Comments: standing order PT (PROTHROMBIN TIME) ([id number]) : standing orderIndication: History of DVT (deep vein thrombosis) On: 29-Aug-2018 Request Comments: standing order PT (PROTHROMBIN TIME) ([id number]) : standing orderIndication: History of DVT (deep vein thrombosis) On: 29-Aug-2018 Request Comments: standing order PT (PROTHROMBIN TIME) ([id number]) : standing orderIndication: History of DVT (deep vein thrombosis) On: 28-Aug-2018 Request Comments: standing order PT (PROTHROMBIN TIME) ([id number]) : standing orderIndication: History of DVT (deep vein thrombosis) On: 28-Aug-2018 Request Comments: standing order PT (PROTHROMBIN TIME) ([id number]) : standing orderIndication: History of DVT (deep vein thrombosis) On: 27-Aug-2018 Request Comments: standing order PT (PROTHROMBIN TIME) ([id number]) : standing orderIndication: History of DVT (deep vein thrombosis) On: 27-Aug-2018 Request Comments: standing order PT (PROTHROMBIN TIME) ([id number]) : standing orderIndication: History of DVT (deep vein thrombosis) On: 26-Aug-2018 Request Comments: standing order PT (PROTHROMBIN TIME) ([id number]) : standing orderIndication: History of DVT (deep vein thrombosis) On: 26-Aug-2018 Request Comments: standing order PT (PROTHROMBIN TIME) ([id number]) : standing orderIndication: History of DVT (deep vein thrombosis) On: 25-Aug-2018 Request Comments: standing order PT (PROTHROMBIN TIME) ([id number]) : standing orderIndication: History of DVT (deep vein thrombosis) On: 25-Aug-2018 Request Comments: standing order PT (PROTHROMBIN TIME) ([id number]) : standing orderIndication: History of DVT (deep vein thrombosis) On: 24-Aug-2018 Request Comments: standing order PT (PROTHROMBIN TIME) ([id number]) : standing orderIndication: History of DVT (deep vein thrombosis) On: 24-Aug-2018 Request Comments: standing order PT (PROTHROMBIN TIME) ([id number]) : standing orderIndication: History of DVT (deep vein thrombosis) On: 23-Aug-2018 Request Comments: standing order PT (PROTHROMBIN TIME) ([id number]) : standing orderIndication: History of DVT (deep vein thrombosis) On: 23-Aug-2018 Request Comments: standing order PT (PROTHROMBIN TIME) ([id number]) : standing orderIndication: History of DVT (deep vein thrombosis) On: 22-Aug-2018 Request Comments: standing order PT (PROTHROMBIN TIME) ([id number]) : standing orderIndication: History of DVT (deep vein thrombosis) On: 22-Aug-2018 Request Comments: standing order PT (PROTHROMBIN TIME) ([id number]) : standing orderIndication: History of DVT (deep vein thrombosis) On: 21-Aug-2018 Request Comments: standing order PT (PROTHROMBIN TIME) ([id number]) : standing orderIndication: History of DVT (deep vein thrombosis) On: 21-Aug-2018 Request Comments: standing order PT (PROTHROMBIN TIME) ([id number]) : standing orderIndication: History of DVT (deep vein thrombosis) On: 20-Aug-2018 Request Comments: standing order PT (PROTHROMBIN TIME) ([id number]) : standing orderIndication: History of DVT (deep vein thrombosis) On: 20-Aug-2018 Request Comments: standing order PT (PROTHROMBIN TIME) ([id number]) : standing orderIndication: History of DVT (deep vein thrombosis) On: 19-Aug-2018 Request Comments: standing order PT (PROTHROMBIN TIME) ([id number]) : standing orderIndication: History of DVT (deep vein thrombosis) On: 19-Aug-2018 Request Comments: standing order PT (PROTHROMBIN TIME) ([id number]) : standing orderIndication: History of DVT (deep vein thrombosis) On: 18-Aug-2018 Request Comments: standing order PT (PROTHROMBIN TIME) ([id number]) : standing orderIndication: History of DVT (deep vein thrombosis) On: 18-Aug-2018 Request Comments: standing order PT (PROTHROMBIN TIME) ([id number]) : standing orderIndication: History of DVT (deep vein thrombosis) On: 17-Aug-2018 Request Comments: standing order PT (PROTHROMBIN TIME) ([id number]) : standing orderIndication: History of DVT (deep vein thrombosis) On: 17-Aug-2018 Request Comments: standing order PT (PROTHROMBIN TIME) ([id number]) : standing orderIndication: History of DVT (deep vein thrombosis) On: 16-Aug-2018 Request Comments: standing order PT (PROTHROMBIN TIME) ([id number]) : standing orderIndication: History of DVT (deep vein thrombosis) On: 16-Aug-2018 Request Comments: standing order PT (PROTHROMBIN TIME) ([id number]) : standing orderIndication: History of DVT (deep vein thrombosis) On: 15-Aug-2018 Request Comments: standing order PT (PROTHROMBIN TIME) ([id number]) : standing orderIndication: History of DVT (deep vein thrombosis) On: 15-Aug-2018 Request Comments: standing order PT (PROTHROMBIN TIME) ([id number]) : standing orderIndication: History of DVT (deep vein thrombosis) On: 14-Aug-2018 Request Comments: standing order PT (PROTHROMBIN TIME) ([id number]) : standing orderIndication: History of DVT (deep vein thrombosis) On: 14-Aug-2018 Request Comments: standing order PT (PROTHROMBIN TIME) ([id number]) : standing orderIndication: History of DVT (deep vein thrombosis) On: 13-Aug-2018 Request Comments: standing order PT (PROTHROMBIN TIME) ([id number]) : standing orderIndication: History of DVT (deep vein thrombosis) On: 13-Aug-2018 Request Comments: standing order PT (PROTHROMBIN TIME) ([id number]) : standing orderIndication: History of DVT (deep vein thrombosis) On: 12-Aug-2018 Request Comments: standing order PT (PROTHROMBIN TIME) ([id number]) : standing orderIndication: History of DVT (deep vein thrombosis) On: 12-Aug-2018 Request Comments: standing order PT (PROTHROMBIN TIME) ([id number]) : standing orderIndication: History of DVT (deep vein thrombosis) On: 11-Aug-2018 Request Comments: standing order PT (PROTHROMBIN TIME) ([id number]) : standing orderIndication: History of DVT (deep vein thrombosis) On: 11-Aug-2018 Request Comments: standing order PT (PROTHROMBIN TIME) ([id number]) : standing orderIndication: History of DVT (deep vein thrombosis) On: 10-Aug-2018 Request Comments: standing order PT (PROTHROMBIN TIME) ([id number]) : standing orderIndication: History of DVT (deep vein thrombosis) On: 10-Aug-2018 Request Comments: standing order PT (PROTHROMBIN TIME) ([id number]) : standing orderIndication: History of DVT (deep vein thrombosis) On: 09-Aug-2018 Request Comments: standing order PT (PROTHROMBIN TIME) ([id number]) : standing orderIndication: History of DVT (deep vein thrombosis) On: 09-Aug-2018 Request Comments: standing order PT (PROTHROMBIN TIME) ([id number]) : standing orderIndication: History of DVT (deep vein thrombosis) On: 08-Aug-2018 Request Comments: standing order PT (PROTHROMBIN TIME) ([id number]) : standing orderIndication: History of DVT (deep vein thrombosis) On: 08-Aug-2018 Request Comments: standing order PT (PROTHROMBIN TIME) ([id number]) : standing orderIndication: History of DVT (deep vein thrombosis) On: 07-Aug-2018 Request Comments: standing order PT (PROTHROMBIN TIME) ([id number]) : standing orderIndication: History of DVT (deep vein thrombosis) On: 07-Aug-2018 Request Comments: standing order PT (PROTHROMBIN TIME) ([id number]) : standing orderIndication: History of DVT (deep vein thrombosis) On: 06-Aug-2018 Request Comments: standing order PT (PROTHROMBIN TIME) ([id number]) : standing orderIndication: History of DVT (deep vein thrombosis) On: 06-Aug-2018 Request Comments: standing order PT (PROTHROMBIN TIME) ([id number]) : standing orderIndication: History of DVT (deep vein thrombosis) On: 05-Aug-2018 Request Comments: standing order PT (PROTHROMBIN TIME) ([id number]) : standing orderIndication: History of DVT (deep vein thrombosis) On: 05-Aug-2018 Request Comments: standing order PT (PROTHROMBIN TIME) ([id number]) : standing orderIndication: History of DVT (deep vein thrombosis) On: 04-Aug-2018 Request Comments: standing order PT (PROTHROMBIN TIME) ([id number]) : standing orderIndication: History of DVT (deep vein thrombosis) On: 04-Aug-2018 Request Comments: standing order PT (PROTHROMBIN TIME) ([id number]) : standing orderIndication: History of DVT (deep vein thrombosis) On: 03-Aug-2018 Request Comments: standing order PT (PROTHROMBIN TIME) ([id number]) : standing orderIndication: History of DVT (deep vein thrombosis) On: 03-Aug-2018 Request Comments: standing order PT (PROTHROMBIN TIME) ([id number]) : standing orderIndication: History of DVT (deep vein thrombosis) On: 02-Aug-2018 Request Comments: standing order PT (PROTHROMBIN TIME) ([id number]) : standing orderIndication: History of DVT (deep vein thrombosis) On: 02-Aug-2018 Request Comments: standing order PT (Prothrobim Time) ([id number])Indication: History of DVT (deep vein thrombosis) On: 01-Aug-2018 Request Comments: INR PT (PROTHROMBIN TIME) ([id number]) : standing orderIndication: History of DVT (deep vein thrombosis) On: 01-Aug-2018 Request Comments: standing order PT (PROTHROMBIN TIME) ([id number]) : standing orderIndication: History of DVT (deep vein thrombosis) On: 01-Aug-2018 Request Comments: standing order PT (PROTHROMBIN TIME) ([id number]) : standing orderIndication: History of DVT (deep vein thrombosis) On: 31-Jul-2018 Request Comments: standing order PT (PROTHROMBIN TIME) ([id number]) : standing orderIndication: History of DVT (deep vein thrombosis) On: 31-Jul-2018 Request Comments: standing order PT (PROTHROMBIN TIME) ([id number])Indication: History of DVT (deep vein thrombosis) On: 30-Jul-2018 Request PT (PROTHROMBIN TIME) ([id number]) : standing orderIndication: History of DVT (deep vein thrombosis) On: 30-Jul-2018 Request Comments: standing order PT (PROTHROMBIN TIME) ([id number]) : standing orderIndication: History of DVT (deep vein thrombosis) On: 30-Jul-2018 Request Comments: standing order PT (PROTHROMBIN TIME) ([id number]) : standing orderIndication: History of DVT (deep vein thrombosis) On: 30-Jul-2018 Request Comments: standing order PT (PROTHROMBIN TIME) ([id number]) : standing orderIndication: History of DVT (deep vein thrombosis) On: 29-Jul-2018 Request Comments: standing order PT (PROTHROMBIN TIME) ([id number]) : standing orderIndication: History of DVT (deep vein thrombosis) On: 29-Jul-2018 Request Comments: standing order PT (PROTHROMBIN TIME) ([id number]) : standing orderIndication: History of DVT (deep vein thrombosis) On: 28-Jul-2018 Request Comments: standing order PT (PROTHROMBIN TIME) ([id number]) : standing orderIndication: History of DVT (deep vein thrombosis) On: 28-Jul-2018 Request Comments: standing order PT (PROTHROMBIN TIME) ([id number]) : standing orderIndication: History of DVT (deep vein thrombosis) On: 27-Jul-2018 Request Comments: standing order PT (PROTHROMBIN TIME) ([id number]) : standing orderIndication: History of DVT (deep vein thrombosis) On: 27-Jul-2018 Request Comments: standing order PT (PROTHROMBIN TIME) ([id number]) : standing orderIndication: History of DVT (deep vein thrombosis) On: 26-Jul-2018 Request Comments: standing order PT (PROTHROMBIN TIME) ([id number]) : standing orderIndication: History of DVT (deep vein thrombosis) On: 26-Jul-2018 Request Comments: standing order PT (PROTHROMBIN TIME) ([id number]) : standing orderIndication: History of DVT (deep vein thrombosis) On: 25-Jul-2018 Request Comments: standing order PT (PROTHROMBIN TIME) ([id number]) : standing orderIndication: History of DVT (deep vein thrombosis) On: 25-Jul-2018 Request Comments: standing order PT (PROTHROMBIN TIME) ([id number]) : standing orderIndication: History of DVT (deep vein thrombosis) On: 24-Jul-2018 Request Comments: standing order PT (PROTHROMBIN TIME) ([id number]) : standing orderIndication: History of DVT (deep vein thrombosis) On: 24-Jul-2018 Request Comments: standing order PT (PROTHROMBIN TIME) ([id number]) : standing orderIndication: History of DVT (deep vein thrombosis) On: 23-Jul-2018 Request Comments: standing order PT (PROTHROMBIN TIME) ([id number]) : standing orderIndication: History of DVT (deep vein thrombosis) On: 23-Jul-2018 Request Comments: standing order PT (PROTHROMBIN TIME) ([id number]) : standing orderIndication: History of DVT (deep vein thrombosis) On: 22-Jul-2018 Request Comments: standing order PT (PROTHROMBIN TIME) ([id number]) : standing orderIndication: History of DVT (deep vein thrombosis) On: 22-Jul-2018 Request Comments: standing order PT (PROTHROMBIN TIME) ([id number]) : standing orderIndication: History of DVT (deep vein thrombosis) On: 21-Jul-2018 Request Comments: standing order PT (PROTHROMBIN TIME) ([id number]) : standing orderIndication: History of DVT (deep vein thrombosis) On: 21-Jul-2018 Request Comments: standing order PT (PROTHROMBIN TIME) ([id number]) : standing orderIndication: History of DVT (deep vein thrombosis) On: 20-Jul-2018 Request Comments: standing order PT (PROTHROMBIN TIME) ([id number]) : standing orderIndication: History of DVT (deep vein thrombosis) On: 20-Jul-2018 Request Comments: standing order PT (PROTHROMBIN TIME) ([id number]) : standing orderIndication: History of DVT (deep vein thrombosis) On: 19-Jul-2018 Request Comments: standing order PT (PROTHROMBIN TIME) ([id number]) : standing orderIndication: History of DVT (deep vein thrombosis) On: 19-Jul-2018 Request Comments: standing order PT (PROTHROMBIN TIME) ([id number]) : standing orderIndication: History of DVT (deep vein thrombosis) On: 18-Jul-2018 Request Comments: standing order PT (PROTHROMBIN TIME) ([id number]) : standing orderIndication: History of DVT (deep vein thrombosis) On: 18-Jul-2018 Request Comments: standing order CBC, Platelets & Auto Diff ([id number])Indication: Leukopenia On: 17-Jul-2018 Request PT (PROTHROMBIN TIME) ([id number]) : standing orderIndication: History of DVT (deep vein thrombosis) On: 17-Jul-2018 Request Comments: standing order PT (PROTHROMBIN TIME) ([id number]) : standing orderIndication: History of DVT (deep vein thrombosis) On: 17-Jul-2018 Request Comments: standing order PT (PROTHROMBIN TIME) ([id number]) : standing orderIndication: History of DVT (deep vein thrombosis) On: 16-Jul-2018 Request Comments: standing order PT (PROTHROMBIN TIME) ([id number]) : standing orderIndication: History of DVT (deep vein thrombosis) On: 16-Jul-2018 Request Comments: standing order PT (PROTHROMBIN TIME) ([id number]) : standing orderIndication: History of DVT (deep vein thrombosis) On: 15-Jul-2018 Request Comments: standing order PT (PROTHROMBIN TIME) ([id number]) : standing orderIndication: History of DVT (deep vein thrombosis) On: 15-Jul-2018 Request Comments: standing order PT (PROTHROMBIN TIME) ([id number]) : standing orderIndication: History of DVT (deep vein thrombosis) On: 14-Jul-2018 Request Comments: standing order PT (PROTHROMBIN TIME) ([id number]) : standing orderIndication: History of DVT (deep vein thrombosis) On: 14-Jul-2018 Request Comments: standing order PT (PROTHROMBIN TIME) ([id number]) : standing orderIndication: History of DVT (deep vein thrombosis) On: 13-Jul-2018 Request Comments: standing order PT (PROTHROMBIN TIME) ([id number]) : standing orderIndication: History of DVT (deep vein thrombosis) On: 13-Jul-2018 Request Comments: standing order PT (PROTHROMBIN TIME) ([id number]) : standing orderIndication: History of DVT (deep vein thrombosis) On: 12-Jul-2018 Request Comments: standing order PT (PROTHROMBIN TIME) ([id number]) : standing orderIndication: History of DVT (deep vein thrombosis) On: 12-Jul-2018 Request Comments: standing order PT (PROTHROMBIN TIME) ([id number]) : standing orderIndication: History of DVT (deep vein thrombosis) On: 11-Jul-2018 Request Comments: standing order PT (PROTHROMBIN TIME) ([id number]) : standing orderIndication: History of DVT (deep vein thrombosis) On: 11-Jul-2018 Request Comments: standing order PT (PROTHROMBIN TIME) ([id number]) : standing orderIndication: History of DVT (deep vein thrombosis) On: 10-Jul-2018 Request Comments: standing order PT (PROTHROMBIN TIME) ([id number]) : standing orderIndication: History of DVT (deep vein thrombosis) On: 10-Jul-2018 Request Comments: standing order PT (PROTHROMBIN TIME) ([id number]) : standing orderIndication: History of DVT (deep vein thrombosis) On: 09-Jul-2018 Request Comments: standing order PT (PROTHROMBIN TIME) ([id number]) : standing orderIndication: History of DVT (deep vein thrombosis) On: 09-Jul-2018 Request Comments: standing order PT (PROTHROMBIN TIME) ([id number]) : standing orderIndication: History of DVT (deep vein thrombosis) On: 08-Jul-2018 Request Comments: standing order PT (PROTHROMBIN TIME) ([id number]) : standing orderIndication: History of DVT (deep vein thrombosis) On: 08-Jul-2018 Request Comments: standing order PT (PROTHROMBIN TIME) ([id number]) : standing orderIndication: History of DVT (deep vein thrombosis) On: 07-Jul-2018 Request Comments: standing order PT (PROTHROMBIN TIME) ([id number]) : standing orderIndication: History of DVT (deep vein thrombosis) On: 07-Jul-2018 Request Comments: standing order PT (PROTHROMBIN TIME) ([id number]) : standing orderIndication: History of DVT (deep vein thrombosis) On: 06-Jul-2018 Request Comments: standing order PT (PROTHROMBIN TIME) ([id number]) : standing orderIndication: History of DVT (deep vein thrombosis) On: 06-Jul-2018 Request Comments: standing order PT (PROTHROMBIN TIME) ([id number]) : standing orderIndication: History of DVT (deep vein thrombosis) On: 05-Jul-2018 Request Comments: standing order PT (PROTHROMBIN TIME) ([id number]) : standing orderIndication: History of DVT (deep vein thrombosis) On: 05-Jul-2018 Request Comments: standing order PT (PROTHROMBIN TIME) ([id number]) : standing orderIndication: History of DVT (deep vein thrombosis) On: 04-Jul-2018 Request Comments: standing order PT (PROTHROMBIN TIME) ([id number]) : standing orderIndication: History of DVT (deep vein thrombosis) On: 04-Jul-2018 Request Comments: standing order PT (PROTHROMBIN TIME) ([id number]) : standing orderIndication: History of DVT (deep vein thrombosis) On: 03-Jul-2018 Request Comments: standing order PT (PROTHROMBIN TIME) ([id number]) : standing orderIndication: History of DVT (deep vein thrombosis) On: 03-Jul-2018 Request Comments: standing order PT (Prothrobim Time) ([id number])Indication: History of DVT (deep vein thrombosis) On: 02-Jul-2018 Request Comments: INR PT (PROTHROMBIN TIME) ([id number]) : standing orderIndication: History of DVT (deep vein thrombosis) On: 02-Jul-2018 Request Comments: standing order PT (PROTHROMBIN TIME) ([id number]) : standing orderIndication: History of DVT (deep vein thrombosis) On: 02-Jul-2018 Request Comments: standing order PT (PROTHROMBIN TIME) ([id number]) : standing orderIndication: History of DVT (deep vein thrombosis) On: 01-Jul-2018 Request Comments: standing order PT (PROTHROMBIN TIME) ([id number]) : standing orderIndication: History of DVT (deep vein thrombosis) On: 01-Jul-2018 Request Comments: standing order PT (PROTHROMBIN TIME) ([id number])Indication: History of DVT (deep vein thrombosis) On: 30-Jun-2018 Request PT (PROTHROMBIN TIME) ([id number]) : standing orderIndication: History of DVT (deep vein thrombosis) On: 30-Jun-2018 Request Comments: standing order PT (PROTHROMBIN TIME) ([id number]) : standing orderIndication: History of DVT (deep vein thrombosis) On: 30-Jun-2018 Request Comments: standing order PT (PROTHROMBIN TIME) ([id number]) : standing orderIndication: History of DVT (deep vein thrombosis) On: 30-Jun-2018 Request Comments: standing order PT (PROTHROMBIN TIME) ([id number]) : standing orderIndication: History of DVT (deep vein thrombosis) On: 29-Jun-2018 Request Comments: standing order PT (PROTHROMBIN TIME) ([id number]) : standing orderIndication: History of DVT (deep vein thrombosis) On: 29-Jun-2018 Request Comments: standing order PT (PROTHROMBIN TIME) ([id number]) : standing orderIndication: History of DVT (deep vein thrombosis) On: 28-Jun-2018 Request Comments: standing order PT (PROTHROMBIN TIME) ([id number]) : standing orderIndication: History of DVT (deep vein thrombosis) On: 28-Jun-2018 Request Comments: standing order PT (PROTHROMBIN TIME) ([id number]) : standing orderIndication: History of DVT (deep vein thrombosis) On: 27-Jun-2018 Request Comments: standing order PT (PROTHROMBIN TIME) ([id number]) : standing orderIndication: History of DVT (deep vein thrombosis) On: 27-Jun-2018 Request Comments: standing order PT (PROTHROMBIN TIME) ([id number]) : standing orderIndication: History of DVT (deep vein thrombosis) On: 26-Jun-2018 Request Comments: standing order PT (PROTHROMBIN TIME) ([id number]) : standing orderIndication: History of DVT (deep vein thrombosis) On: 26-Jun-2018 Request Comments: standing order PT (PROTHROMBIN TIME) ([id number]) : standing orderIndication: History of DVT (deep vein thrombosis) On: 25-Jun-2018 Request Comments: standing order PT (PROTHROMBIN TIME) ([id number]) : standing orderIndication: History of DVT (deep vein thrombosis) On: 25-Jun-2018 Request Comments: standing order PT (PROTHROMBIN TIME) ([id number]) : standing orderIndication: History of DVT (deep vein thrombosis) On: 24-Jun-2018 Request Comments: standing order PT (PROTHROMBIN TIME) ([id number]) : standing orderIndication: History of DVT (deep vein thrombosis) On: 24-Jun-2018 Request Comments: standing order PT (PROTHROMBIN TIME) ([id number]) : standing orderIndication: History of DVT (deep vein thrombosis) On: 23-Jun-2018 Request Comments: standing order PT (PROTHROMBIN TIME) ([id number]) : standing orderIndication: History of DVT (deep vein thrombosis) On: 23-Jun-2018 Request Comments: standing order PT (PROTHROMBIN TIME) ([id number]) : standing orderIndication: History of DVT (deep vein thrombosis) On: 22-Jun-2018 Request Comments: standing order PT (PROTHROMBIN TIME) ([id number]) : standing orderIndication: History of DVT (deep vein thrombosis) On: 22-Jun-2018 Request Comments: standing order PT (PROTHROMBIN TIME) ([id number]) : standing orderIndication: History of DVT (deep vein thrombosis) On: 21-Jun-2018 Request Comments: standing order PT (PROTHROMBIN TIME) ([id number]) : standing orderIndication: History of DVT (deep vein thrombosis) On: 21-Jun-2018 Request Comments: standing order PT (PROTHROMBIN TIME) ([id number]) : standing orderIndication: History of DVT (deep vein thrombosis) On: 20-Jun-2018 Request Comments: standing order PT (PROTHROMBIN TIME) ([id number]) : standing orderIndication: History of DVT (deep vein thrombosis) On: 20-Jun-2018 Request Comments: standing order PT (PROTHROMBIN TIME) ([id number]) : standing orderIndication: History of DVT (deep vein thrombosis) On: 19-Jun-2018 Request Comments: standing order PT (PROTHROMBIN TIME) ([id number]) : standing orderIndication: History of DVT (deep vein thrombosis) On: 19-Jun-2018 Request Comments: standing order PT (PROTHROMBIN TIME) ([id number]) : standing orderIndication: History of DVT (deep vein thrombosis) On: 18-Jun-2018 Request Comments: standing order PT (PROTHROMBIN TIME) ([id number]) : standing orderIndication: History of DVT (deep vein thrombosis) On: 18-Jun-2018 Request Comments: standing order PT (PROTHROMBIN TIME) ([id number]) : standing orderIndication: History of DVT (deep vein thrombosis) On: 17-Jun-2018 Request Comments: standing order PT (PROTHROMBIN TIME) ([id number]) : standing orderIndication: History of DVT (deep vein thrombosis) On: 17-Jun-2018 Request Comments: standing order PT (PROTHROMBIN TIME) ([id number]) : standing orderIndication: History of DVT (deep vein thrombosis) On: 16-Jun-2018 Request Comments: standing order PT (PROTHROMBIN TIME) ([id number]) : standing orderIndication: History of DVT (deep vein thrombosis) On: 16-Jun-2018 Request Comments: standing order PT (PROTHROMBIN TIME) ([id number]) : standing orderIndication: History of DVT (deep vein thrombosis) On: 15-Jun-2018 Request Comments: standing order PT (PROTHROMBIN TIME) ([id number]) : standing orderIndication: History of DVT (deep vein thrombosis) On: 15-Jun-2018 Request Comments: standing order PT (PROTHROMBIN TIME) ([id number]) : standing orderIndication: History of DVT (deep vein thrombosis) On: 14-Jun-2018 Request Comments: standing order PT (PROTHROMBIN TIME) ([id number]) : standing orderIndication: History of DVT (deep vein thrombosis) On: 14-Jun-2018 Request Comments: standing order PT (PROTHROMBIN TIME) ([id number]) : standing orderIndication: History of DVT (deep vein thrombosis) On: 13-Jun-2018 Request Comments: standing order PT (PROTHROMBIN TIME) ([id number]) : standing orderIndication: History of DVT (deep vein thrombosis) On: 13-Jun-2018 Request Comments: standing order PT (PROTHROMBIN TIME) ([id number]) : standing orderIndication: History of DVT (deep vein thrombosis) On: 12-Jun-2018 Request Comments: standing order PT (PROTHROMBIN TIME) ([id number]) : standing orderIndication: History of DVT (deep vein thrombosis) On: 12-Jun-2018 Request Comments: standing order PT (PROTHROMBIN TIME) ([id number]) : standing orderIndication: History of DVT (deep vein thrombosis) On: 11-Jun-2018 Request Comments: standing order PT (PROTHROMBIN TIME) ([id number]) : standing orderIndication: History of DVT (deep vein thrombosis) On: 11-Jun-2018 Request Comments: standing order PT (PROTHROMBIN TIME) ([id number]) : standing orderIndication: History of DVT (deep vein thrombosis) On: 10-Jun-2018 Request Comments: standing order PT (PROTHROMBIN TIME) ([id number]) : standing orderIndication: History of DVT (deep vein thrombosis) On: 10-Jun-2018 Request Comments: standing order PT (PROTHROMBIN TIME) ([id number]) : standing orderIndication: History of DVT (deep vein thrombosis) On: 09-Jun-2018 Request Comments: standing order PT (PROTHROMBIN TIME) ([id number]) : standing orderIndication: History of DVT (deep vein thrombosis) On: 09-Jun-2018 Request Comments: standing order PT (PROTHROMBIN TIME) ([id number]) : standing orderIndication: History of DVT (deep vein thrombosis) On: 08-Jun-2018 Request Comments: standing order PT (PROTHROMBIN TIME) ([id number]) : standing orderIndication: History of DVT (deep vein thrombosis) On: 08-Jun-2018 Request Comments: standing order PT (PROTHROMBIN TIME) ([id number]) : standing orderIndication: History of DVT (deep vein thrombosis) On: 07-Jun-2018 Request Comments: standing order PT (PROTHROMBIN TIME) ([id number]) : standing orderIndication: History of DVT (deep vein thrombosis) On: 07-Jun-2018 Request Comments: standing order PT (PROTHROMBIN TIME) ([id number]) : standing orderIndication: History of DVT (deep vein thrombosis) On: 06-Jun-2018 Request Comments: standing order PT (PROTHROMBIN TIME) ([id number]) : standing orderIndication: History of DVT (deep vein thrombosis) On: 06-Jun-2018 Request Comments: standing order PT (PROTHROMBIN TIME) ([id number]) : standing orderIndication: History of DVT (deep vein thrombosis) On: 05-Jun-2018 Request Comments: standing order PT (PROTHROMBIN TIME) ([id number]) : standing orderIndication: History of DVT (deep vein thrombosis) On: 05-Jun-2018 Request Comments: standing order PT (PROTHROMBIN TIME) ([id number]) : standing orderIndication: History of DVT (deep vein thrombosis) On: 04-Jun-2018 Request Comments: standing order PT (PROTHROMBIN TIME) ([id number]) : standing orderIndication: History of DVT (deep vein thrombosis) On: 04-Jun-2018 Request Comments: standing order PT (PROTHROMBIN TIME) ([id number]) : standing orderIndication: History of DVT (deep vein thrombosis) On: 03-Jun-2018 Request Comments: standing order PT (PROTHROMBIN TIME) ([id number]) : standing orderIndication: History of DVT (deep vein thrombosis) On: 03-Jun-2018 Request Comments: standing order PT (Prothrobim Time) ([id number])Indication: History of DVT (deep vein thrombosis) On: 02-Jun-2018 Request Comments: INR PT (PROTHROMBIN TIME) ([id number]) : standing orderIndication: History of DVT (deep vein thrombosis) On: 02-Jun-2018 Request Comments: standing order PT (PROTHROMBIN TIME) ([id number]) : standing orderIndication: History of DVT (deep vein thrombosis) On: 02-Jun-2018 Request Comments: standing order PT (PROTHROMBIN TIME) ([id number]) : standing orderIndication: History of DVT (deep vein thrombosis) On: 01-Jun-2018 Request Comments: standing order PT (PROTHROMBIN TIME) ([id number]) : standing orderIndication: History of DVT (deep vein thrombosis) On: 01-Jun-2018 Request Comments: standing order PT (PROTHROMBIN TIME) ([id number])Indication: History of DVT (deep vein thrombosis) On: 31-May-2018 Request PT (PROTHROMBIN TIME) ([id number]) : standing orderIndication: History of DVT (deep vein thrombosis) On: 31-May-2018 Request Comments: standing order PT (PROTHROMBIN TIME) ([id number]) : standing orderIndication: History of DVT (deep vein thrombosis) On: 31-May-2018 Request Comments: standing order PT (PROTHROMBIN TIME) ([id number]) : standing orderIndication: History of DVT (deep vein thrombosis) On: 31-May-2018 Request Comments: standing order PT (PROTHROMBIN TIME) ([id number]) : standing orderIndication: History of DVT (deep vein thrombosis) On: 30-May-2018 Request Comments: standing order PT (PROTHROMBIN TIME) ([id number]) : standing orderIndication: History of DVT (deep vein thrombosis) On: 30-May-2018 Request Comments: standing order PT (PROTHROMBIN TIME) ([id number]) : standing orderIndication: History of DVT (deep vein thrombosis) On: 29-May-2018 Request Comments: standing order PT (PROTHROMBIN TIME) ([id number]) : standing orderIndication: History of DVT (deep vein thrombosis) On: 29-May-2018 Request Comments: standing order PT (PROTHROMBIN TIME) ([id number]) : standing orderIndication: History of DVT (deep vein thrombosis) On: 28-May-2018 Request Comments: standing order PT (PROTHROMBIN TIME) ([id number]) : standing orderIndication: History of DVT (deep vein thrombosis) On: 28-May-2018 Request Comments: standing order PT (PROTHROMBIN TIME) ([id number]) : standing orderIndication: History of DVT (deep vein thrombosis) On: 27-May-2018 Request Comments: standing order PT (PROTHROMBIN TIME) ([id number]) : standing orderIndication: History of DVT (deep vein thrombosis) On: 27-May-2018 Request Comments: standing order PT (PROTHROMBIN TIME) ([id number]) : standing orderIndication: History of DVT (deep vein thrombosis) On: 26-May-2018 Request Comments: standing order PT (PROTHROMBIN TIME) ([id number]) : standing orderIndication: History of DVT (deep vein thrombosis) On: 26-May-2018 Request Comments: standing order PT (PROTHROMBIN TIME) ([id number]) : standing orderIndication: History of DVT (deep vein thrombosis) On: 25-May-2018 Request Comments: standing order PT (PROTHROMBIN TIME) ([id number]) : standing orderIndication: History of DVT (deep vein thrombosis) On: 25-May-2018 Request Comments: standing order PT (PROTHROMBIN TIME) ([id number]) : standing orderIndication: History of DVT (deep vein thrombosis) On: 24-May-2018 Request Comments: standing order PT (PROTHROMBIN TIME) ([id number]) : standing orderIndication: History of DVT (deep vein thrombosis) On: 24-May-2018 Request Comments: standing order PT (Prothrobim Time) ([id number])Indication: Anticoagulated on Coumadin On: 23-May-2018 Request PT (PROTHROMBIN TIME) ([id number]) : standing orderIndication: History of DVT (deep vein thrombosis) On: 23-May-2018 Request Comments: standing order PT (PROTHROMBIN TIME) ([id number]) : standing orderIndication: History of DVT (deep vein thrombosis) On: 23-May-2018 Request Comments: standing order PT (PROTHROMBIN TIME) ([id number]) : standing orderIndication: History of DVT (deep vein thrombosis) On: 22-May-2018 Request Comments: standing order PT (PROTHROMBIN TIME) ([id number]) : standing orderIndication: History of DVT (deep vein thrombosis) On: 22-May-2018 Request Comments: standing order PT (PROTHROMBIN TIME) ([id number]) : standing orderIndication: History of DVT (deep vein thrombosis) On: 21-May-2018 Request Comments: standing order PT (PROTHROMBIN TIME) ([id number]) : standing orderIndication: History of DVT (deep vein thrombosis) On: 21-May-2018 Request Comments: standing order PT (PROTHROMBIN TIME) ([id number]) : standing orderIndication: History of DVT (deep vein thrombosis) On: 20-May-2018 Request Comments: standing order PT (PROTHROMBIN TIME) ([id number]) : standing orderIndication: History of DVT (deep vein thrombosis) On: 20-May-2018 Request Comments: standing order PT (PROTHROMBIN TIME) ([id number]) : standing orderIndication: History of DVT (deep vein thrombosis) On: 19-May-2018 Request Comments: standing order PT (PROTHROMBIN TIME) ([id number]) : standing orderIndication: History of DVT (deep vein thrombosis) On: 19-May-2018 Request Comments: standing order PT (PROTHROMBIN TIME) ([id number]) : standing orderIndication: History of DVT (deep vein thrombosis) On: 18-May-2018 Request Comments: standing order PT (PROTHROMBIN TIME) ([id number]) : standing orderIndication: History of DVT (deep vein thrombosis) On: 18-May-2018 Request Comments: standing order PT (PROTHROMBIN TIME) ([id number]) : standing orderIndication: History of DVT (deep vein thrombosis) On: 17-May-2018 Request Comments: standing order PT (PROTHROMBIN TIME) ([id number]) : standing orderIndication: History of DVT (deep vein thrombosis) On: 17-May-2018 Request Comments: standing order PT (Prothrobim Time) ([id number])Indication: Anticoagulated on Coumadin On: 16-May-2018 Request PT (PROTHROMBIN TIME) ([id number]) : standing orderIndication: History of DVT (deep vein thrombosis) On: 16-May-2018 Request Comments: standing order PT (PROTHROMBIN TIME) ([id number]) : standing orderIndication: History of DVT (deep vein thrombosis) On: 16-May-2018 Request Comments: standing order PT (PROTHROMBIN TIME) ([id number]) : standing orderIndication: History of DVT (deep vein thrombosis) On: 15-May-2018 Request Comments: standing order PT (PROTHROMBIN TIME) ([id number]) : standing orderIndication: History of DVT (deep vein thrombosis) On: 15-May-2018 Request Comments: standing order PT (PROTHROMBIN TIME) ([id number]) : standing orderIndication: History of DVT (deep vein thrombosis) On: 14-May-2018 Request Comments: standing order PT (PROTHROMBIN TIME) ([id number]) : standing orderIndication: History of DVT (deep vein thrombosis) On: 14-May-2018 Request Comments: standing order PT (PROTHROMBIN TIME) ([id number]) : standing orderIndication: History of DVT (deep vein thrombosis) On: 13-May-2018 Request Comments: standing order PT (PROTHROMBIN TIME) ([id number]) : standing orderIndication: History of DVT (deep vein thrombosis) On: 13-May-2018 Request Comments: standing order PT (PROTHROMBIN TIME) ([id number]) : standing orderIndication: History of DVT (deep vein thrombosis) On: 12-May-2018 Request Comments: standing order PT (PROTHROMBIN TIME) ([id number]) : standing orderIndication: History of DVT (deep vein thrombosis) On: 12-May-2018 Request Comments: standing order PT (PROTHROMBIN TIME) ([id number]) : standing orderIndication: History of DVT (deep vein thrombosis) On: 11-May-2018 Request Comments: standing order PT (PROTHROMBIN TIME) ([id number]) : standing orderIndication: History of DVT (deep vein thrombosis) On: 11-May-2018 Request Comments: standing order PT (PROTHROMBIN TIME) ([id number]) : standing orderIndication: History of DVT (deep vein thrombosis) On: 10-May-2018 Request Comments: standing order PT (PROTHROMBIN TIME) ([id number]) : standing orderIndication: History of DVT (deep vein thrombosis) On: 10-May-2018 Request Comments: standing order PT (Prothrobim Time) ([id number])Indication: Anticoagulated on Coumadin On: 09-May-2018 Request PT (PROTHROMBIN TIME) ([id number]) : standing orderIndication: History of DVT (deep vein thrombosis) On: 09-May-2018 Request Comments: standing order PT (PROTHROMBIN TIME) ([id number]) : standing orderIndication: History of DVT (deep vein thrombosis) On: 09-May-2018 Request Comments: standing order PT (PROTHROMBIN TIME) ([id number]) : standing orderIndication: History of DVT (deep vein thrombosis) On: 08-May-2018 Request Comments: standing order PT (PROTHROMBIN TIME) ([id number]) : standing orderIndication: History of DVT (deep vein thrombosis) On: 08-May-2018 Request Comments: standing order PT (PROTHROMBIN TIME) ([id number]) : standing orderIndication: History of DVT (deep vein thrombosis) On: 07-May-2018 Request Comments: standing order PT (PROTHROMBIN TIME) ([id number]) : standing orderIndication: History of DVT (deep vein thrombosis) On: 07-May-2018 Request Comments: standing order PT (PROTHROMBIN TIME) ([id number]) : standing orderIndication: History of DVT (deep vein thrombosis) On: 06-May-2018 Request Comments: standing order PT (PROTHROMBIN TIME) ([id number]) : standing orderIndication: History of DVT (deep vein thrombosis) On: 06-May-2018 Request Comments: standing order PT (PROTHROMBIN TIME) ([id number]) : standing orderIndication: History of DVT (deep vein thrombosis) On: 05-May-2018 Request Comments: standing order PT (PROTHROMBIN TIME) ([id number]) : standing orderIndication: History of DVT (deep vein thrombosis) On: 05-May-2018 Request Comments: standing order PT (PROTHROMBIN TIME) ([id number]) : standing orderIndication: History of DVT (deep vein thrombosis) On: 04-May-2018 Request Comments: standing order PT (PROTHROMBIN TIME) ([id number]) : standing orderIndication: History of DVT (deep vein thrombosis) On: 04-May-2018 Request Comments: standing order PT (Prothrobim Time) ([id number])Indication: History of DVT (deep vein thrombosis) On: 03-May-2018 Request Comments: INR PT (PROTHROMBIN TIME) ([id number]) : standing orderIndication: History of DVT (deep vein thrombosis) On: 03-May-2018 Request Comments: standing order PT (PROTHROMBIN TIME) ([id number]) : standing orderIndication: History of DVT (deep vein thrombosis) On: 03-May-2018 Request Comments: standing order PT (Prothrobim Time) ([id number])Indication: Anticoagulated on Coumadin On: 02-May-2018 Request PT (PROTHROMBIN TIME) ([id number]) : standing orderIndication: History of DVT (deep vein thrombosis) On: 02-May-2018 Request Comments: standing order PT (PROTHROMBIN TIME) ([id number]) : standing orderIndication: History of DVT (deep vein thrombosis) On: 02-May-2018 Request Comments: standing order PT (PROTHROMBIN TIME) ([id number])Indication: History of DVT (deep vein thrombosis) On: 01-May-2018 Request PT (PROTHROMBIN TIME) ([id number]) : standing orderIndication: History of DVT (deep vein thrombosis) On: 01-May-2018 Request Comments: standing order PT (PROTHROMBIN TIME) ([id number]) : standing orderIndication: History of DVT (deep vein thrombosis) On: 01-May-2018 Request Comments: standing order PT (PROTHROMBIN TIME) ([id number]) : standing orderIndication: History of DVT (deep vein thrombosis) On: 01-May-2018 Request Comments: standing order PT (PROTHROMBIN TIME) ([id number]) : standing orderIndication: History of DVT (deep vein thrombosis) On: 30-Apr-2018 Request Comments: standing order PT (PROTHROMBIN TIME) ([id number]) : standing orderIndication: History of DVT (deep vein thrombosis) On: 30-Apr-2018 Request Comments: standing order PT (PROTHROMBIN TIME) ([id number]) : standing orderIndication: History of DVT (deep vein thrombosis) On: 29-Apr-2018 Request Comments: standing order PT (PROTHROMBIN TIME) ([id number]) : standing orderIndication: History of DVT (deep vein thrombosis) On: 29-Apr-2018 Request Comments: standing order PT (PROTHROMBIN TIME) ([id number]) : standing orderIndication: History of DVT (deep vein thrombosis) On: 28-Apr-2018 Request Comments: standing order PT (PROTHROMBIN TIME) ([id number]) : standing orderIndication: History of DVT (deep vein thrombosis) On: 28-Apr-2018 Request Comments: standing order PT (PROTHROMBIN TIME) ([id number]) : standing orderIndication: History of DVT (deep vein thrombosis) On: 27-Apr-2018 Request Comments: standing order PT (PROTHROMBIN TIME) ([id number]) : standing orderIndication: History of DVT (deep vein thrombosis) On: 27-Apr-2018 Request Comments: standing order PT (PROTHROMBIN TIME) ([id number]) : standing orderIndication: History of DVT (deep vein thrombosis) On: 26-Apr-2018 Request Comments: standing order PT (PROTHROMBIN TIME) ([id number]) : standing orderIndication: History of DVT (deep vein thrombosis) On: 26-Apr-2018 Request Comments: standing order PT (Prothrobim Time) ([id number])Indication: Anticoagulated on Coumadin On: 25-Apr-2018 Request PT (PROTHROMBIN TIME) ([id number]) : standing orderIndication: History of DVT (deep vein thrombosis) On: 25-Apr-2018 Request Comments: standing order PT (PROTHROMBIN TIME) ([id number]) : standing orderIndication: History of DVT (deep vein thrombosis) On: 25-Apr-2018 Request Comments: standing order PT (PROTHROMBIN TIME) ([id number]) : standing orderIndication: History of DVT (deep vein thrombosis) On: 24-Apr-2018 Request Comments: standing order PT (PROTHROMBIN TIME) ([id number]) : standing orderIndication: History of DVT (deep vein thrombosis) On: 24-Apr-2018 Request Comments: standing order PT (PROTHROMBIN TIME) ([id number]) : standing orderIndication: History of DVT (deep vein thrombosis) On: 23-Apr-2018 Request Comments: standing order PT (PROTHROMBIN TIME) ([id number]) : standing orderIndication: History of DVT (deep vein thrombosis) On: 23-Apr-2018 Request Comments: standing order PT (PROTHROMBIN TIME) ([id number]) : standing orderIndication: History of DVT (deep vein thrombosis) On: 22-Apr-2018 Request Comments: standing order PT (PROTHROMBIN TIME) ([id number]) : standing orderIndication: History of DVT (deep vein thrombosis) On: 22-Apr-2018 Request Comments: standing order PT (PROTHROMBIN TIME) ([id number]) : standing orderIndication: History of DVT (deep vein thrombosis) On: 21-Apr-2018 Request Comments: standing order PT (PROTHROMBIN TIME) ([id number]) : standing orderIndication: History of DVT (deep vein thrombosis) On: 21-Apr-2018 Request Comments: standing order PT (PROTHROMBIN TIME) ([id number]) : standing orderIndication: History of DVT (deep vein thrombosis) On: 20-Apr-2018 Request Comments: standing order PT (PROTHROMBIN TIME) ([id number]) : standing orderIndication: History of DVT (deep vein thrombosis) On: 20-Apr-2018 Request Comments: standing order PT (PROTHROMBIN TIME) ([id number]) : standing orderIndication: History of DVT (deep vein thrombosis) On: 19-Apr-2018 Request Comments: standing order PT (PROTHROMBIN TIME) ([id number]) : standing orderIndication: History of DVT (deep vein thrombosis) On: 19-Apr-2018 Request Comments: standing order CBC, Platelets & Auto Diff ([id number])Indication: Leukopenia On: 18-Apr-2018 Request PT (Prothrobim Time) ([id number])Indication: Anticoagulated on Coumadin On: 18-Apr-2018 Request PT (PROTHROMBIN TIME) ([id number]) : standing orderIndication: History of DVT (deep vein thrombosis) On: 18-Apr-2018 Request Comments: standing order PT (PROTHROMBIN TIME) ([id number]) : standing orderIndication: History of DVT (deep vein thrombosis) On: 18-Apr-2018 Request Comments: standing order PT (PROTHROMBIN TIME) ([id number]) : standing orderIndication: History of DVT (deep vein thrombosis) On: 17-Apr-2018 Request Comments: standing order PT (PROTHROMBIN TIME) ([id number]) : standing orderIndication: History of DVT (deep vein thrombosis) On: 17-Apr-2018 Request Comments: standing order PT (PROTHROMBIN TIME) ([id number]) : standing orderIndication: History of DVT (deep vein thrombosis) On: 16-Apr-2018 Request Comments: standing order PT (PROTHROMBIN TIME) ([id number]) : standing orderIndication: History of DVT (deep vein thrombosis) On: 16-Apr-2018 Request Comments: standing order PT (PROTHROMBIN TIME) ([id number]) : standing orderIndication: History of DVT (deep vein thrombosis) On: 15-Apr-2018 Request Comments: standing order PT (PROTHROMBIN TIME) ([id number]) : standing orderIndication: History of DVT (deep vein thrombosis) On: 15-Apr-2018 Request Comments: standing order PT (PROTHROMBIN TIME) ([id number]) : standing orderIndication: History of DVT (deep vein thrombosis) On: 14-Apr-2018 Request Comments: standing order PT (PROTHROMBIN TIME) ([id number]) : standing orderIndication: History of DVT (deep vein thrombosis) On: 14-Apr-2018 Request Comments: standing order PT (PROTHROMBIN TIME) ([id number]) : standing orderIndication: History of DVT (deep vein thrombosis) On: 13-Apr-2018 Request Comments: standing order PT (PROTHROMBIN TIME) ([id number]) : standing orderIndication: History of DVT (deep vein thrombosis) On: 13-Apr-2018 Request Comments: standing order PT (PROTHROMBIN TIME) ([id number]) : standing orderIndication: History of DVT (deep vein thrombosis) On: 12-Apr-2018 Request Comments: standing order PT (PROTHROMBIN TIME) ([id number]) : standing orderIndication: History of DVT (deep vein thrombosis) On: 12-Apr-2018 Request Comments: standing order PT (Prothrobim Time) ([id number])Indication: Anticoagulated on Coumadin On: 11-Apr-2018 Request PT (PROTHROMBIN TIME) ([id number]) : standing orderIndication: History of DVT (deep vein thrombosis) On: 11-Apr-2018 Request Comments: standing order PT (PROTHROMBIN TIME) ([id number]) : standing orderIndication: History of DVT (deep vein thrombosis) On: 11-Apr-2018 Request Comments: standing order PT (PROTHROMBIN TIME) ([id number]) : standing orderIndication: History of DVT (deep vein thrombosis) On: 10-Apr-2018 Request Comments: standing order PT (PROTHROMBIN TIME) ([id number]) : standing orderIndication: History of DVT (deep vein thrombosis) On: 10-Apr-2018 Request Comments: standing order PT (PROTHROMBIN TIME) ([id number]) : standing orderIndication: History of DVT (deep vein thrombosis) On: 09-Apr-2018 Request Comments: standing order PT (PROTHROMBIN TIME) ([id number]) : standing orderIndication: History of DVT (deep vein thrombosis) On: 09-Apr-2018 Request Comments: standing order PT (PROTHROMBIN TIME) ([id number]) : standing orderIndication: History of DVT (deep vein thrombosis) On: 08-Apr-2018 Request Comments: standing order PT (PROTHROMBIN TIME) ([id number]) : standing orderIndication: History of DVT (deep vein thrombosis) On: 08-Apr-2018 Request Comments: standing order PT (PROTHROMBIN TIME) ([id number]) : standing orderIndication: History of DVT (deep vein thrombosis) On: 07-Apr-2018 Request Comments: standing order PT (PROTHROMBIN TIME) ([id number]) : standing orderIndication: History of DVT (deep vein thrombosis) On: 07-Apr-2018 Request Comments: standing order PT (PROTHROMBIN TIME) ([id number]) : standing orderIndication: History of DVT (deep vein thrombosis) On: 06-Apr-2018 Request Comments: standing order PT (PROTHROMBIN TIME) ([id number]) : standing orderIndication: History of DVT (deep vein thrombosis) On: 06-Apr-2018 Request Comments: standing order PT (PROTHROMBIN TIME) ([id number]) : standing orderIndication: History of DVT (deep vein thrombosis) On: 05-Apr-2018 Request Comments: standing order PT (PROTHROMBIN TIME) ([id number]) : standing orderIndication: History of DVT (deep vein thrombosis) On: 05-Apr-2018 Request Comments: standing order PT (Prothrobim Time) ([id number])Indication: Anticoagulated on Coumadin On: 04-Apr-2018 Request PT (PROTHROMBIN TIME) ([id number]) : standing orderIndication: History of DVT (deep vein thrombosis) On: 04-Apr-2018 Request Comments: standing order PT (PROTHROMBIN TIME) ([id number]) : standing orderIndication: History of DVT (deep vein thrombosis) On: 04-Apr-2018 Request Comments: standing order PT (Prothrobim Time) ([id number])Indication: History of DVT (deep vein thrombosis) On: 03-Apr-2018 Request Comments: INR PT (PROTHROMBIN TIME) ([id number]) : standing orderIndication: History of DVT (deep vein thrombosis) On: 03-Apr-2018 Request Comments: standing order PT (PROTHROMBIN TIME) ([id number]) : standing orderIndication: History of DVT (deep vein thrombosis) On: 03-Apr-2018 Request Comments: standing order PT (PROTHROMBIN TIME) ([id number]) : standing orderIndication: History of DVT (deep vein thrombosis) On: 02-Apr-2018 Request Comments: standing order PT (PROTHROMBIN TIME) ([id number]) : standing orderIndication: History of DVT (deep vein thrombosis) On: 02-Apr-2018 Request Comments: standing order PT (PROTHROMBIN TIME) ([id number])Indication: History of DVT (deep vein thrombosis) On: 01-Apr-2018 Request PT (PROTHROMBIN TIME) ([id number]) : standing orderIndication: History of DVT (deep vein thrombosis) On: 01-Apr-2018 Request Comments: standing order PT (PROTHROMBIN TIME) ([id number]) : standing orderIndication: History of DVT (deep vein thrombosis) On: 01-Apr-2018 Request Comments: standing order PT (PROTHROMBIN TIME) ([id number]) : standing orderIndication: History of DVT (deep vein thrombosis) On: 01-Apr-2018 Request Comments: standing order PT (PROTHROMBIN TIME) ([id number]) : standing orderIndication: History of DVT (deep vein thrombosis) On: 31-Mar-2018 Request Comments: standing order PT (PROTHROMBIN TIME) ([id number]) : standing orderIndication: History of DVT (deep vein thrombosis) On: 31-Mar-2018 Request Comments: standing order PT (PROTHROMBIN TIME) ([id number]) : standing orderIndication: History of DVT (deep vein thrombosis) On: 30-Mar-2018 Request Comments: standing order PT (PROTHROMBIN TIME) ([id number]) : standing orderIndication: History of DVT (deep vein thrombosis) On: 30-Mar-2018 Request Comments: standing order PT (PROTHROMBIN TIME) ([id number]) : standing orderIndication: History of DVT (deep vein thrombosis) On: 29-Mar-2018 Request Comments: standing order PT (PROTHROMBIN TIME) ([id number]) : standing orderIndication: History of DVT (deep vein thrombosis) On: 29-Mar-2018 Request Comments: standing order PT (Prothrobim Time) ([id number])Indication: Anticoagulated on Coumadin On: 28-Mar-2018 Request PT (PROTHROMBIN TIME) ([id number]) : standing orderIndication: History of DVT (deep vein thrombosis) On: 28-Mar-2018 Request Comments: standing order PT (PROTHROMBIN TIME) ([id number]) : standing orderIndication: History of DVT (deep vein thrombosis) On: 28-Mar-2018 Request Comments: standing order PT (PROTHROMBIN TIME) ([id number]) : standing orderIndication: History of DVT (deep vein thrombosis) On: 27-Mar-2018 Request Comments: standing order PT (PROTHROMBIN TIME) ([id number]) : standing orderIndication: History of DVT (deep vein thrombosis) On: 27-Mar-2018 Request Comments: standing order PT (PROTHROMBIN TIME) ([id number]) : standing orderIndication: History of DVT (deep vein thrombosis) On: 26-Mar-2018 Request Comments: standing order PT (PROTHROMBIN TIME) ([id number]) : standing orderIndication: History of DVT (deep vein thrombosis) On: 26-Mar-2018 Request Comments: standing order PT (PROTHROMBIN TIME) ([id number]) : standing orderIndication: History of DVT (deep vein thrombosis) On: 25-Mar-2018 Request Comments: standing order PT (PROTHROMBIN TIME) ([id number]) : standing orderIndication: History of DVT (deep vein thrombosis) On: 25-Mar-2018 Request Comments: standing order PT (PROTHROMBIN TIME) ([id number]) : standing orderIndication: History of DVT (deep vein thrombosis) On: 24-Mar-2018 Request Comments: standing order PT (PROTHROMBIN TIME) ([id number]) : standing orderIndication: History of DVT (deep vein thrombosis) On: 24-Mar-2018 Request Comments: standing order PT (PROTHROMBIN TIME) ([id number]) : standing orderIndication: History of DVT (deep vein thrombosis) On: 23-Mar-2018 Request Comments: standing order PT (PROTHROMBIN TIME) ([id number]) : standing orderIndication: History of DVT (deep vein thrombosis) On: 23-Mar-2018 Request Comments: standing order PT (PROTHROMBIN TIME) ([id number]) : standing orderIndication: History of DVT (deep vein thrombosis) On: 22-Mar-2018 Request Comments: standing order PT (PROTHROMBIN TIME) ([id number]) : standing orderIndication: History of DVT (deep vein thrombosis) On: 22-Mar-2018 Request Comments: standing order PT (Prothrobim Time) ([id number])Indication: Anticoagulated on Coumadin On: 21-Mar-2018 Request PT (PROTHROMBIN TIME) ([id number]) : standing orderIndication: History of DVT (deep vein thrombosis) On: 21-Mar-2018 Request Comments: standing order PT (PROTHROMBIN TIME) ([id number]) : standing orderIndication: History of DVT (deep vein thrombosis) On: 21-Mar-2018 Request Comments: standing order PT (PROTHROMBIN TIME) ([id number]) : standing orderIndication: History of DVT (deep vein thrombosis) On: 20-Mar-2018 Request Comments: standing order PT (PROTHROMBIN TIME) ([id number]) : standing orderIndication: History of DVT (deep vein thrombosis) On: 20-Mar-2018 Request Comments: standing order PT (PROTHROMBIN TIME) ([id number]) : standing orderIndication: History of DVT (deep vein thrombosis) On: 19-Mar-2018 Request Comments: standing order PT (PROTHROMBIN TIME) ([id number]) : standing orderIndication: History of DVT (deep vein thrombosis) On: 19-Mar-2018 Request Comments: standing order PT (PROTHROMBIN TIME) ([id number]) : standing orderIndication: History of DVT (deep vein thrombosis) On: 18-Mar-2018 Request Comments: standing order PT (PROTHROMBIN TIME) ([id number]) : standing orderIndication: History of DVT (deep vein thrombosis) On: 18-Mar-2018 Request Comments: standing order PT (PROTHROMBIN TIME) ([id number]) : standing orderIndication: History of DVT (deep vein thrombosis) On: 17-Mar-2018 Request Comments: standing order PT (PROTHROMBIN TIME) ([id number]) : standing orderIndication: History of DVT (deep vein thrombosis) On: 17-Mar-2018 Request Comments: standing order PT (PROTHROMBIN TIME) ([id number]) : standing orderIndication: History of DVT (deep vein thrombosis) On: 16-Mar-2018 Request Comments: standing order PT (PROTHROMBIN TIME) ([id number]) : standing orderIndication: History of DVT (deep vein thrombosis) On: 16-Mar-2018 Request Comments: standing order PT (PROTHROMBIN TIME) ([id number]) : standing orderIndication: History of DVT (deep vein thrombosis) On: 15-Mar-2018 Request Comments: standing order PT (PROTHROMBIN TIME) ([id number]) : standing orderIndication: History of DVT (deep vein thrombosis) On: 15-Mar-2018 Request Comments: standing order PT (Prothrobim Time) ([id number])Indication: Anticoagulated on Coumadin On: 14-Mar-2018 Request PT (PROTHROMBIN TIME) ([id number]) : standing orderIndication: History of DVT (deep vein thrombosis) On: 14-Mar-2018 Request Comments: standing order PT (PROTHROMBIN TIME) ([id number]) : standing orderIndication: History of DVT (deep vein thrombosis) On: 14-Mar-2018 Request Comments: standing order PT (PROTHROMBIN TIME) ([id number]) : standing orderIndication: History of DVT (deep vein thrombosis) On: 13-Mar-2018 Request Comments: standing order PT (PROTHROMBIN TIME) ([id number]) : standing orderIndication: History of DVT (deep vein thrombosis) On: 13-Mar-2018 Request Comments: standing order PT (PROTHROMBIN TIME) ([id number]) : standing orderIndication: History of DVT (deep vein thrombosis) On: 12-Mar-2018 Request Comments: standing order PT (PROTHROMBIN TIME) ([id number]) : standing orderIndication: History of DVT (deep vein thrombosis) On: 12-Mar-2018 Request Comments: standing order PT (PROTHROMBIN TIME) ([id number]) : standing orderIndication: History of DVT (deep vein thrombosis) On: 11-Mar-2018 Request Comments: standing order PT (PROTHROMBIN TIME) ([id number]) : standing orderIndication: History of DVT (deep vein thrombosis) On: 11-Mar-2018 Request Comments: standing order PT (PROTHROMBIN TIME) ([id number]) : standing orderIndication: History of DVT (deep vein thrombosis) On: 10-Mar-2018 Request Comments: standing order PT (PROTHROMBIN TIME) ([id number]) : standing orderIndication: History of DVT (deep vein thrombosis) On: 10-Mar-2018 Request Comments: standing order PT (PROTHROMBIN TIME) ([id number]) : standing orderIndication: History of DVT (deep vein thrombosis) On: 09-Mar-2018 Request Comments: standing order PT (PROTHROMBIN TIME) ([id number]) : standing orderIndication: History of DVT (deep vein thrombosis) On: 09-Mar-2018 Request Comments: standing order PT (PROTHROMBIN TIME) ([id number]) : standing orderIndication: History of DVT (deep vein thrombosis) On: 08-Mar-2018 Request Comments: standing order PT (PROTHROMBIN TIME) ([id number]) : standing orderIndication: History of DVT (deep vein thrombosis) On: 08-Mar-2018 Request Comments: standing order PT (Prothrobim Time) ([id number])Indication: Anticoagulated on Coumadin On: 07-Mar-2018 Request PT (PROTHROMBIN TIME) ([id number]) : standing orderIndication: History of DVT (deep vein thrombosis) On: 07-Mar-2018 Request Comments: standing order PT (PROTHROMBIN TIME) ([id number]) : standing orderIndication: History of DVT (deep vein thrombosis) On: 07-Mar-2018 Request Comments: standing order PT (PROTHROMBIN TIME) ([id number]) : standing orderIndication: History of DVT (deep vein thrombosis) On: 06-Mar-2018 Request Comments: standing order PT (PROTHROMBIN TIME) ([id number]) : standing orderIndication: History of DVT (deep vein thrombosis) On: 06-Mar-2018 Request Comments: standing order PT (PROTHROMBIN TIME) ([id number]) : standing orderIndication: History of DVT (deep vein thrombosis) On: 05-Mar-2018 Request Comments: standing order PT (PROTHROMBIN TIME) ([id number]) : standing orderIndication: History of DVT (deep vein thrombosis) On: 05-Mar-2018 Request Comments: standing order PT (Prothrobim Time) ([id number])Indication: History of DVT (deep vein thrombosis) On: 56-Kfd-85885:49 Request Comments: INR PT (PROTHROMBIN TIME) ([id number]) : standing orderIndication: History of DVT (deep vein thrombosis) On: 04-Mar-2018 Request Comments: standing order PT (PROTHROMBIN TIME) ([id number]) : standing orderIndication: History of DVT (deep vein thrombosis) On: 04-Mar-2018 Request Comments: standing order PT (PROTHROMBIN TIME) ([id number]) : standing orderIndication: History of DVT (deep vein thrombosis) On: 03-Mar-2018 Request Comments: standing order PT (PROTHROMBIN TIME) ([id number]) : standing orderIndication: History of DVT (deep vein thrombosis) On: 03-Mar-2018 Request Comments: standing order PT (PROTHROMBIN TIME) ([id number])Indication: History of DVT (deep vein thrombosis) On: 73-Vwc-154961:54 Request PT (PROTHROMBIN TIME) ([id number]) : standing orderIndication: History of DVT (deep vein thrombosis) On: 78-Fkh-517358:48 Request Comments: standing order PT (Prothrobim Time) ([id number])Indication: Anticoagulated on Coumadin On: 28-Feb-2018 Request PT (Prothrobim Time) ([id number])Indication: Anticoagulated on Coumadin On: 21-Feb-2018 Request PT (Prothrobim Time) ([id number])Indication: Anticoagulated on Coumadin On: 14-Feb-2018 Request YURIY (ANTINUCLEAR ANTIBODY) ([id number])Indication: Leukopenia On: 3-Adq-773786:30 Request Comments: give lab slips UPEP ([id number])Indication: Leukopenia On: 7-Guz-219895:30 Request Comments: give lab slips SPEP ([id number])Indication: Leukopenia On: 8-Baa-994855:29 Request Comments: give lab slips PT (Prothrobim Time) ([id number])Indication: Anticoagulated on Coumadin On: 07-Feb-2018 Request PT (Prothrobim Time) ([id number])Indication: Anticoagulated on Coumadin On: 31-Jan-2018 Request PT (Prothrobim Time) ([id number])Indication: Anticoagulated on Coumadin On: 24-Jan-2018 Request PT (Prothrobim Time) ([id number])Indication: Anticoagulated on Coumadin On: 17-Jan-2018 Request PT (Prothrobim Time) ([id number])Indication: Anticoagulated on Coumadin On: 10-Jan-2018 Request PT (Prothrobim Time) ([id number])Indication: Anticoagulated on Coumadin On: 03-Jan-2018 Request PT (Prothrobim Time) ([id number])Indication: Anticoagulated on Coumadin On: 27-Dec-2017 Request PT (Prothrobim Time) ([id number])Indication: Anticoagulated on Coumadin On: 20-Dec-2017 Request BILIRUBIN, TOTAL ([id number])Indication: Encounter for screening for lipid disorder On: 72-Oex-067878:28 Request BILIRUBIN, DIRECT ([id number])Indication: Encounter for screening for lipid disorder On: 16-Klo-812589:28 Request CBC, PLATELETS & AUT DIFF ([id number])Indication: Encounter for screening for lipid disorder On: 63-Ycl-151280:47 Request Metabolic Panel, Comprehensive ([id number])Indication: Encounter for screening for lipid disorder On: 73-Hjh-65497:10 Request CBC & PLATELETS (AUTO) ([id number])Indication: Encounter for screening for lipid disorder On: 43-Avj-05567:10 Request LIPID PANEL ([id number])Indication: Encounter for screening for lipid disorder On: 62-Ohr-46500:09 Request PT (Prothrobim Time) ([id number])Indication: Anticoagulated on Coumadin On: 13-Dec-2017 Request PT (Prothrobim Time) ([id number])Indication: Anticoagulated on Coumadin On: 06-Dec-2017 Request PT (Prothrobim Time) ([id number])Indication: Anticoagulated on Coumadin On: 29-Nov-2017 Request PT (Prothrobim Time) ([id number])Indication: Anticoagulated on Coumadin On: 22-Nov-2017 Request PT (Prothrobim Time) ([id number])Indication: Anticoagulated on Coumadin On: 15-Nov-2017 Request PT (Prothrobim Time) ([id number])Indication: Anticoagulated on Coumadin On: 08-Nov-2017 Request PT (Prothrobim Time) ([id number])Indication: Anticoagulated on Coumadin On: 01-Nov-2017 Request PT (Prothrobim Time) ([id number])Indication: Anticoagulated on Coumadin On: 25-Oct-2017 Request PT (Prothrobim Time) ([id number])Indication: Anticoagulated on Coumadin On: 18-Oct-2017 Request PT (Prothrobim Time) ([id number])Indication: Anticoagulated on Coumadin On: 11-Oct-2017 Request PT (Prothrobim Time) ([id number])Indication: Anticoagulated on Coumadin On: 04-Oct-2017 Request PT (Prothrobim Time) ([id number])Indication: Anticoagulated on Coumadin On: 27-Sep-2017 Request PT (Prothrobim Time) ([id number])Indication: Anticoagulated on Coumadin On: 20-Sep-2017 Request PT (Prothrobim Time) ([id number])Indication: Anticoagulated on Coumadin On: 13-Sep-2017 Request PT (Prothrobim Time) ([id number])Indication: Anticoagulated on Coumadin On: 06-Sep-2017 Request PT (Prothrobim Time) ([id number])Indication: Anticoagulated on Coumadin On: 30-Aug-2017 Request PT (Prothrobim Time) ([id number])Indication: Anticoagulated on Coumadin On: 23-Aug-2017 Request PT (Prothrobim Time) ([id number])Indication: Anticoagulated on Coumadin On: 16-Aug-2017 Request PT (Prothrobim Time) ([id number])Indication: Anticoagulated on Coumadin On: 09-Aug-2017 Request PT (Prothrobim Time) ([id number])Indication: Anticoagulated on Coumadin On: 02-Aug-2017 Request PT (Prothrobim Time) ([id number])Indication: Anticoagulated on Coumadin On: 26-Jul-2017 Request PT (Prothrobim Time) ([id number])Indication: Anticoagulated on Coumadin On: 19-Jul-2017 Request PT (Prothrobim Time) ([id number])Indication: Anticoagulated on Coumadin On: 12-Jul-2017 Request PT (Prothrobim Time) ([id number])Indication: Anticoagulated on Coumadin On: 05-Jul-2017 Request PT (Prothrobim Time) ([id number])Indication: Anticoagulated on Coumadin On: 28-Jun-2017 Request PT (Prothrobim Time) ([id number])Indication: Anticoagulated on Coumadin On: 21-Jun-2017 Request PT (Prothrobim Time) ([id number])Indication: Anticoagulated on Coumadin On: 14-Jun-2017 Request PT (Prothrobim Time) ([id number])Indication: Anticoagulated on Coumadin On: 07-Jun-2017 Request PT (Prothrobim Time) ([id number])Indication: Anticoagulated on Coumadin On: 31-May-2017 Request PT (Prothrobim Time) ([id number])Indication: Anticoagulated on Coumadin On: 25-May-2017 Request PT (Prothrobim Time) ([id number])Indication: Anticoagulated on Coumadin On: 25-May-2017 Request PT (Prothrobim Time) ([id number])Indication: Anticoagulated on Coumadin On: 24-May-2017 Request PT (Prothrobim Time) ([id number])Indication: Anticoagulated on Coumadin On: 17-May-2017 Request PT (Prothrobim Time) ([id number])Indication: Anticoagulated on Coumadin On: 10-May-2017 Request PT (Prothrobim Time) ([id number])Indication: Anticoagulated on Coumadin On: 03-May-2017 Request PT (Prothrobim Time) ([id number])Indication: Anticoagulated on Coumadin On: 26-Apr-2017 Request PT (Prothrobim Time) ([id number])Indication: Anticoagulated on Coumadin On: 25-Apr-2017 Request PT (Prothrobim Time) ([id number])Indication: Anticoagulated on Coumadin On: 25-Apr-2017 Request PT (Prothrobim Time) ([id number])Indication: Anticoagulated on Coumadin On: 19-Apr-2017 Request PT (Prothrobim Time) ([id number])Indication: Anticoagulated on Coumadin On: 12-Apr-2017 Request PT (Prothrobim Time) ([id number])Indication: Anticoagulated on Coumadin On: 05-Apr-2017 Request PT (Prothrobim Time) ([id number])Indication: Anticoagulated on Coumadin On: 29-Mar-2017 Request PT (Prothrobim Time) ([id number])Indication: Anticoagulated on Coumadin On: 26-Mar-2017 Request PT (Prothrobim Time) ([id number])Indication: Anticoagulated on Coumadin On: 26-Mar-2017 Request PT (Prothrobim Time) ([id number])Indication: Anticoagulated on Coumadin On: 22-Mar-2017 Request PT (Prothrobim Time) ([id number])Indication: Anticoagulated on Coumadin On: 15-Mar-2017 Request PT (Prothrobim Time) ([id number])Indication: Anticoagulated on Coumadin On: 08-Mar-2017 Request PT (Prothrobim Time) ([id number])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 (Renamed from 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 current use of anticoagulant therapy) On: 22-Qig-577754:48 Request Comments: Standing order PT (Prothrobim Time) ([id number])Indication: Anticoagulated on Coumadin On: 01-Mar-2017 Request PT (Prothrobim Time) ([id number])Indication: Anticoagulated on Coumadin On: 24-Feb-2017 Request PT (Prothrobim Time) ([id number])Indication: Anticoagulated on Coumadin On: 24-Feb-2017 Request PT (Prothrobim Time) ([id number])Indication: Anticoagulated on Coumadin On: 22-Feb-2017 Request PT (Prothrobim Time) ([id number])Indication: Anticoagulated on Coumadin On: 15-Feb-2017 Request PT (Prothrobim Time) ([id number])Indication: Anticoagulated on Coumadin On: 08-Feb-2017 Request PT (Prothrobim Time) ([id number])Indication: Anticoagulated on Coumadin On: 01-Feb-2017 Request PT (Prothrobim Time) ([id number])Indication: Anticoagulated on Coumadin On: 25-Jan-2017 Request PT (Prothrobim Time) ([id number])Indication: Anticoagulated on Coumadin On: 25-Jan-2017 Request PT (Prothrobim Time) ([id number])Indication: Anticoagulated on Coumadin On: 25-Jan-2017 Request PT (Prothrobim Time) ([id number])Indication: Anticoagulated on Coumadin On: 18-Jan-2017 Request PT (Prothrobim Time) ([id number])Indication: Anticoagulated on Coumadin On: 11-Jan-2017 Request PT (Prothrobim Time) ([id number])Indication: Anticoagulated on Coumadin On: 04-Jan-2017 Request PT (Prothrobim Time) ([id number])Indication: Anticoagulated on Coumadin On: 28-Dec-2016 Request PT (Prothrobim Time) ([id number])Indication: Anticoagulated on Coumadin On: 26-Dec-2016 Request PT (Prothrobim Time) ([id number])Indication: Anticoagulated on Coumadin On: 26-Dec-2016 Request PT (Prothrobim Time) ([id number])Indication: Anticoagulated on Coumadin On: 21-Dec-2016 Request PT (Prothrobim Time) ([id number])Indication: Anticoagulated on Coumadin On: 14-Dec-2016 Request PT (Prothrobim Time) ([id number])Indication: Anticoagulated on Coumadin On: 07-Dec-2016 Request PT (Prothrobim Time) ([id number])Indication: Anticoagulated on Coumadin On: 30-Nov-2016 Request PT (Prothrobim Time) ([id number])Indication: Anticoagulated on Coumadin On: 26-Nov-2016 Request PT (Prothrobim Time) ([id number])Indication: Anticoagulated on Coumadin On: 26-Nov-2016 Request PT (Prothrobim Time) ([id number])Indication: Anticoagulated on Coumadin On: 23-Nov-2016 Request PT (Prothrobim Time) ([id number])Indication: Anticoagulated on Coumadin On: 16-Nov-2016 Request PT (Prothrobim Time) ([id number])Indication: Anticoagulated on Coumadin On: 09-Nov-2016 Request PT (Prothrobim Time) ([id number])Indication: Anticoagulated on Coumadin On: 02-Nov-2016 Request PT (Prothrobim Time) ([id number])Indication: Anticoagulated on Coumadin On: 27-Oct-2016 Request PT (Prothrobim Time) ([id number])Indication: Anticoagulated on Coumadin On: 27-Oct-2016 Request PT (Prothrobim Time) ([id number])Indication: Anticoagulated on Coumadin On: 26-Oct-2016 Request PT (Prothrobim Time) ([id number])Indication: Anticoagulated on Coumadin On: 19-Oct-2016 Request PT (Prothrobim Time) ([id number])Indication: Anticoagulated on Coumadin On: 12-Oct-2016 Request PT (Prothrobim Time) ([id number])Indication: Anticoagulated on Coumadin On: 05-Oct-2016 Request PT (Prothrobim Time) ([id number])Indication: Anticoagulated on Coumadin On: 28-Sep-2016 Request PT (Prothrobim Time) ([id number])Indication: Anticoagulated on Coumadin On: 27-Sep-2016 Request PT (Prothrobim Time) ([id number])Indication: Anticoagulated on Coumadin On: 27-Sep-2016 Request PT (Prothrobim Time) ([id number])Indication: Anticoagulated on Coumadin On: 21-Sep-2016 Request PT (Prothrobim Time) ([id number])Indication: Anticoagulated on Coumadin On: 14-Sep-2016 Request PT (Prothrobim Time) ([id number])Indication: Anticoagulated on Coumadin On: 07-Sep-2016 Request PT (Prothrobim Time) ([id number])Indication: Anticoagulated on Coumadin On: 31-Aug-2016 Request PT (Prothrobim Time) ([id number])Indication: Anticoagulated on Coumadin On: 28-Aug-2016 Request PT (Prothrobim Time) ([id number])Indication: Anticoagulated on Coumadin On: 28-Aug-2016 Request PT (Prothrobim Time) ([id number])Indication: Anticoagulated on Coumadin On: 24-Aug-2016 Request PT (Prothrobim Time) ([id number])Indication: Anticoagulated on Coumadin On: 17-Aug-2016 Request PT (Prothrobim Time) ([id number])Indication: Anticoagulated on Coumadin On: 10-Aug-2016 Request PT (Prothrobim Time) ([id number])Indication: Anticoagulated on Coumadin On: 03-Aug-2016 Request PT (Prothrobim Time) ([id number])Indication: Anticoagulated on Coumadin On: 29-Jul-2016 Request PT (Prothrobim Time) ([id number])Indication: Anticoagulated on Coumadin On: 29-Jul-2016 Request PT (Prothrobim Time) ([id number])Indication: Anticoagulated on Coumadin On: 27-Jul-2016 Request PT (Prothrobim Time) ([id number])Indication: Anticoagulated on Coumadin On: 20-Jul-2016 Request PT (Prothrobim Time) ([id number])Indication: Anticoagulated on Coumadin On: 13-Jul-2016 Request PT (Prothrobim Time) ([id number])Indication: Anticoagulated on Coumadin On: 06-Jul-2016 Request Metabolic Panel, Comprehensive ([id number])Indication: Irritable Bowel Syndrome On: 32-Kel-583535:28 Request TSH ([id number])Indication: Irritable Bowel Syndrome On: 25-Dwk-816703:28 Request CBC, Platelets & Auto Diff ([id number])Indication: Irritable Bowel Syndrome On: 78-Iib-218693:28 Request PT (Prothrobim Time) ([id number])Indication: Anticoagulated on Coumadin On: 17-Bht-580994:24 Request PT (Prothrobim Time) ([id number])Indication: DVT (deep venous thrombosis) On: 26-Ntw-524698:11 Request Comments: INR - STANDING ORDER Vitamin D Hydroxy ([id number])Indication: Osteoporosis On: 20-Uwy-376314:16 Request TSH ([id number])Indication: Osteoporosis On: 47-Xtm-366605:16 Request CBC with auto diff ([id number])Indication: Benign Essential Hypertension On: :16 Request METABOLIC PANEL, COMPREHENSIVE ([id number])Indication: Benign Essential Hypertension On: 47-Gkv-019228:16 Request LIPID PANEL ([id number])Indication: Hyperlipidemia On: :16 Request CBC W/AUTO DIFF WBC ([id number])Indication: Benign Essential Hypertension On: :34 Request METABOLIC PANEL, COMPREHENSIVE ([id number])Indication: Benign Essential Hypertension On: :34 Request TSH ([id number])Indication: Osteoporosis On: :39 Request CBC W/AUTO DIFF WBC ([id number])Indication: Osteoporosis On: :39 Request LIPID PANEL ([id number])Indication: Hyperlipidemia On: :38 Request METABOLIC PANEL, COMPREHENSIVE ([id number])Indication: Benign Essential Hypertension On: :38 Request PT (Prothrobim Time) ([id number])Indication: DVT (deep venous thrombosis) On: 8-Jhn-677824:18 Request Comments: FINGER STICKSTANDING ORDER PT (Prothrobim Time) ([id number])Indication: DVT (deep venous thrombosis) On: 53-Ikb-232669:28 Request Comments: Standing Order URINALYSIS, W/ MICRO ([id number])Indication: Benign Essential Hypertension On: :37 Request METABOLIC PANEL, COMPREHENSIVE ([id number])Indication: Benign Essential Hypertension On: :37 Request LIPID PANEL ([id number])Indication: Hyperlipidemia On: :37 Request CBC W/AUTO DIFF WBC ([id number])Indication: DVT (deep venous thrombosis) On: :37 Request PT (Prothrobim Time) ([id number])Indication: DVT (deep venous thrombosis) On: 30-Eoc-283719:02 Request CBC WITH MANUAL DIFF ([id number])Indication: Benign Essential Hypertension On: :39 Request METABOLIC PANEL, COMPREHENSIVE ([id number])Indication: Hyperlipidemia On: :39 Request LIPID PANEL ([id number])Indication: Hyperlipidemia On: :39 Request PT (Prothrobim Time) ([id number])Indication: DVT (deep venous thrombosis) On: :07 Request Comments: pls call occupational health physician Dr Hunter with results on 05/20/13 PT (Prothrobim Time) ([id number])Indication: DVT (deep venous thrombosis) On: 65-Cne-700766:00 Request Comments: Standing Order PT (Prothrobim Time) ([id number])Indication: DVT (deep venous thrombosis) On: 52-Tyz-85992:59 Request Comments: INR - STANDING ORDER x 1 year URINALYSIS, W/ MICRO ([id number])Indication: Benign Essential Hypertension On: :15 Request CBC WITH MANUAL DIFF ([id number])Indication: Benign Essential Hypertension On: :15 Request METABOLIC PANEL, COMPREHENSIVE ([id number])Indication: Benign Essential Hypertension On: :14 Request LIPID PANEL ([id number])Indication: Hyperlipidemia On: :14 Request METABOLIC PANEL, COMPREHENSIVE ([id number])Indication: Benign Essential Hypertension On: 62-Ygd-89563:06 Request LIPID PANEL ([id number])Indication: Hyperlipidemia On: 76-Fqp-40214:06 Request URINE HANNAH CULTURE-IDENTIFICATN ([id number])Indication: Urinary frequency On: 07-Sep-20128:56 Request URINE HANNAH CULTURE-IDENTIFICATN ([id number])Indication: Insect bite On: 27-Jxq-418022:19 Request Lyme Disease,Serum, Western Blot ([id number])Indication: Insect bite On: 59-Hor-780556:19 Request PT (Prothrobim Time) ([id number])Indication: DVT (deep venous thrombosis) On: 15-Hzf-872904:59 Request Comments: standing order LIPID PANEL ([id number])Indication: FAMILY HISTORY OF ISCHEMIC HEART DISEASE On: 95-Inp-038562:28 Request LIPID PANEL ([id number])Indication: FAMILY HISTORY OF ISCHEMIC HEART DISEASE On: 7-Uay-661142:51 Request Vitamin D Hydroxy ([id number])Indication: Osteoporosis On: 0-Xjl-722318:18 Request TSH ([id number])Indication: Osteoporosis On: 6-Quy-797443:18 Request URINALYSIS, W/ MICRO ([id number])Indication: Osteoporosis On: 6-Toy-186544:18 Request CBC WITH MANUAL DIFF ([id number])Indication: Osteoporosis On: 5-Vou-224282:18 Request METABOLIC PANEL, COMPREHENSIVE ([id number])Indication: Osteoporosis On: 7-Wum-092111:18 Request PTT (Activated Partial Thromboplastin Time) ([id number])Indication: DVT (deep venous thrombosis) On: 5-Ahw-401469:16 Request PT (Prothrobim Time) ([id number])Indication: DVT (deep venous thrombosis) On: 9-Wfl-855562:16 Request Planned Encounters Medical; 3 Month FU - On: 17-May-2018 8:30 [facility] Johnnie DAVIES, Brenda Johnnie DAVIES, Brenda Planned Procedures DOPPLER ULTRASOUND OF LEFT LOWER On: 14-Feb-2018 Intent EXTREMITY FOR VENOUS THROMBOEMBOLISM Comments: STAT R/O DVT-Hx of DVT ([id number])By: Sigrid Mobley DEXA SCAN AXIAL SKELETON ([id number])By: On: 17-Dec-2017 Intent Riddhiraul Selam DAVIES E Johnnie DAVIES, Brenda Aerosol Treatment ([id number])By: Johnnie On: 02-Jun-2017 Intent Selam DAVIES E Johnnie DAVIES, Brenda Ultrasound - LiverBy: Johnnie DAVIESSelam On: 15-Dec-2016 Intent E Johnnie DAVIES, Brenda Aerosol Treatment ([id number])By: Johnnie On: 13-Oct-2016 Intent Selam DAVIES E Johnnie DAVIES, Brenda Aerosol Treatment ([id number])By: Aleskey On: 19-Feb-2015 Intent Eliana HOFFMANN Ultrasound - AortaBy: Helen Barnes DO On: 18-Dec-2014 Intent EKG ([id number])By: Helen Barnes DO On: 05-Nov-2014 Intent Comments: ekg showed normal sinus rhythym, normal axis, no acute st/t wave changes BILATERAL MAMMOGRAMS ([id number])By: Timothy On: 17-Sep-2014 Intent Helen [place] Radiology - Shoulder - LeftBy: Bonezzi On: 05-Mar-2014 Intent Fatimah RANDLE Comments: if not better with PT MAMMOGRAM, SCREENING, BOTH BREASTS On: 08-Aug-2013 Intent ([id number])By: Helen Barnes DO Eprescribed prescriptions ([id number])By: On: 08-Aug-2013 Intent Helen Barnse DO DXA, BONE DENSITY, AXIAL SKELETON On: 21-Oct-2012 Intent ([id number])By: Helen Barnes DO Comments: dexa- mar Eprescribed prescriptions ([id number])By: On: 21-Oct-2012 Intent So Bailey Breast Screening - BilateralBy: Fast On: 19-Sep-2012 Intent Helen [place] Eprescribed prescriptions ([id number])By: On: 30-Aug-2012 Intent So Bailey Spirometry ([id number])By: Helen Barnes DO On: 11-Mar-2012 Intent A Comments: good effort and curve mild obst- Doppler Ultrasound OtherBy: Timothy [place], On: 11-Mar-2012 Intent Helen Coley Comments: both legs- stat call results Eprescribed prescriptions ([id number])By: On: 11-Mar-2012 Intent So Bailey TD Injection , IM ([id number])By: Leo, On: 11-Mar-2012 Intent So Comments: 2003 FLU VAC, SPLIT, >3 YEARS, INTRAMUSC On: 11-Mar-2012 Intent ([id number])By: So Bailey Comments: [facility] Instructions Name Dates Details Nonsmoker : How to access health information online Indication: Nonsmoker Nonsmoker : How to access health information online - Detail Indication: Nonsmoker Chest tightness : Patient Instructions Indication: Chest tightness BMI 22.0-22.9, adult : How to access [...] Coumadin : DISCONTINUED - PT (PROTHROMBIN TIME) ([id number]) Indication: Anticoagulated on Coumadin Irritable Bowel Syndrome [...] Instructions Indication: Osteoporosis Encounters Office Visit On: 21-Apr-2018 7:58 Encounter Reason: Upper Respiratory Infection (URI) - Symptoms include nasal congestion and productive cough. Onset was 10 day(s) ago. Note for Upper respiratory infection: Symptoms started over 1 week ago with sinus c End: 21-Apr-2018 8:48 ongestion, chest congestion and [id number] green sputum, NO ear pressure, headaches, SOB, wheezing, fever or chills, CP. Has tried all sorts of OTC cold medications that keep it at bay and the n once she weans off symptoms start right back. Leaving for [place] next week.Encounter Diagnosis: BMI 22.0-22.9, adult, Nonsmoker, Upper respiratory disease, Chest tightness, Cough [facility] Annotation/Addendum On: 18-Apr-2018 11:33 [facility] [...] 3.3 this was repeat. 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 The patient has noticed nothing from the geriatic depression scale. Other providers contributing to the patient's care are claims customer service representative (dr. meseret santana) and other: (eye- dr. 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 The patient has noticed nothing from the geriatic depression scale. Other providers contributing to the patient's care are other: (dr crawford for eyes). Note for Annual Medicare Exam: Pt has WWE done by her [employer].Refuses flu shotRefuses pnumonia or LymeEncounter Diagnosis: Nonsmoker, BMI 21.0-21.9, adult, Encounter for annual general medical examination with abnormal findings in adult, assisted (current) use of anticoagulants (Renamed from 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 current use of anticoagulant therapy), Liver cyst [facility] Phone Encounter On: 09-Nov-2016 16:54 [facility] End: 09-Nov-2016 16:55 Phone Encounter On: 15-Oct-2016 12:40 Encounter Diagnosis: [place] eye End: 15-Oct-2016 12:42 [facility] [...] patient does not have durable power of contract attorney. The p atient has noticed nothing from the geriatic depression scale. Other providers contributing to the patient's care are other: (ENT and dr crawford for eyes). Note for Annual Medicare Exam: Pt has WWE done by her [employer]., [ADDITIONAL REASON] Follow up for chronic medical [...] with Lyme dz symptoms- pt went to [place] and had lyme dz treatment-), has End: [...]
--- OUTSIDE RECORDS SUMMARY | 2018-06-27 17:57 | XMS RPT_ITS ---
:1950 Author Organization OHIP Support Name Relationship Address Phone YING BRYANT Unavailable [address] + [place] [address] ANNETTE, MENDY Unavailable [address] + [place] [address] R Unavailable Unavailable Unavailable ANNETTE, YING Unavailable [address] + [place] [address] ANNETTE, MENDY Unavailable [address] + [place] [address] R Unavailable Unavailable Unavailable ANNETTE, YING Unavailable [address] + [place] [address] ANNETTE, MENDY Unavailable [address] + [place] [address] R Unavailable Unavailable Unavailable ANNETTE, YING Unavailable [address] + [place] [address] ANNETTE, MENDY Unavailable [address] + [place] [address] R Unavailable Unavailable Unavailable ANNETTE, YING Unavailable [address] + [place] [address] ANNETTE, MENDY Unavailable [address] + [place] [address] R Unavailable Unavailable Unavailable ANNETTE, YING Unavailable [address] + [place] [address] ANNETTE, MENDY Unavailable [address] + [place] [address] R Unavailable Unavailable Unavailable ANNETTE, YING Unavailable [address] + [place] [address] ANNETTE, MENDY Unavailable [address] + [place] [address] R Unavailable Unavailable Unavailable ANNETTE, YING Unavailable [address] + [place] [address] ANNETTE, MENDY Unavailable [address] + [place] [address] R Unavailable Unavailable Unavailable ANNETTE, YING Unavailable [address] + [place] [address] ANNETTE, MENDY Unavailable [address] + [place] [address] R Unavailable Unavailable Unavailable ANNETTE, YING Unavailable [address] + [place] [address] ANNETTE, MENDY Unavailable [address] + [place] [address] R Unavailable Unavailable Unavailable ANNETTE, YING Unavailable [address] + [place] [address] ANNETTE, MENDY Unavailable [address] + [place] [address] R Unavailable Unavailable Unavailable ANNETTE, YING Unavailable [address] + [place] [address] ANNETTE, MENDY Unavailable [address] + [place] [address] R Unavailable Unavailable Unavailable ANNETTE, YING Unavailable [address] + [place] [address] ANNETTE, MENDY Unavailable [address] + [place] [address] R Unavailable Unavailable Unavailable ANNETTE, YING Unavailable [address] + [place] [address] ANNETTE, MENDY Unavailable [address] + [place] [address] R Unavailable Unavailable Unavailable ANNETTE, YING Unavailable [address] + [place] [address] ANNETTE, MENDY Unavailable [address] + [place] [address] R Unavailable Unavailable Unavailable ANNETTE, YING Unavailable [address] [phone] [place] [address] ANNETTE, MENDY Unavailable [address] + [place] [address] R Unavailable Unavailable Unavailable ANNETTE, IYNG Unavailable [address] [phone] [place] [address] ANNETTE, MENDY Unavailable [address] + [place] [address] R Unavailable Unavailable Unavailable ANNETTE, YING Unavailable [address] [phone] [place] [address] ANNETTE, MENDY Unavailable [address] + [place] [address] R Unavailable Unavailable Unavailable ANNETTE, YING Unavailable [address] [phone] [place] [address] ANNETTE, MENDY Unavailable [address] + [place] [address] R Unavailable Unavailable Unavailable Care Team Providers Name Role Phone Selam Blair Attending Unavailable Fast DO, Helen A Referring Unavailable CiSelam carter Consulting Unavailable CiSelam carter Attending Unavailable CiSelam carter Referring Unavailable Ciesa Selam Primary Care Unavailable Selam Blair Attending Unavailable CiesaSelam [facility] Blair Attending Un[facility] Unavailable Aliza Santana Attending Unavailable [facility] Unavailable Aliza Santana Referring Unavailable Selam Blair Attending Unavailable [facility] Unavailable Selam Blair Referring Unavailable CiesaSelam Attending Unavailable CiesaSelam Referring Unavailable [facility] Unavailable Selam Blair Attending Unavailable CiesaSelam Referring Unavailable [facility] Unavailable Selam Blair Attending Unavailable CiesaSelam Referring Unavailable [facility] Unavailable Selam Blair Attending Unavailable CiesaSelam Referring Unavailable [facility] Unavailable CiSelam carter Attending Unavailable CiesaSelam Referring Unavailable [facility] Unavailable CiSelam carter Attending Unavailable CiesaSelam Referring Unavailable [facility] Unavailable CimargaretaSelam Attending Unavailable CiesaSelam Referring Unavailable [facility] Unavailable CiSelam carter Attending Unavailable [facility] Unavailable CimargaretaSelam Referring Unavailable CiesaSelam Attending Unavailable [facility] Unavailable Selam Blair Attending Unavailable CiesaSelam Referring Unavailable [facility] Unavailable Selam Blair Attending Unavailable CiesaSelam Referring Unavailable [facility] Unavailable Selam Blair Attending Unavailable Selam Blair Referring Unavailable Selam Blair Primary Care Unavailable Sigrid Mobley INSIDE SALES ADVISOR-C Attending Unavailable Selam Blair Primary Care Unavailable Sigrid Mobley INSIDE SALES ADVISOR-C Referring Unavailable Selam Blair Attending Unavailable Selam Blair Referring Unavailable Selam Blair Primary Care Unavailable PROBLEMS PROBLEMS DATE TYPE CONDITION / CODE ATTENDING STATUS SOURCE 04/19/2018 Unknown Z86.718 - Personal CiSelam carter history of other Community venous thrombosis Hospital and embolism / Repository Z86.718(ICD-10) 03/07/2018 Unknown Z79.01 - USP CiSelam carter (current) use of [facility] anticoagulants / Hospital Z79.01(ICD-10) Repository 02/07/2018 Unknown D72.819 - Decreased Selam Blair white blood cell Community count, unspecified / Hospital D72.819(ICD-10) Repository 01/04/2018 Unknown Z13.220 - Encounter Selam Blair for screening for [facility] lipoid disorders / Hospital Z13.220(ICD-10) Repository PROCEDURES PROCEDURES No Procedure Records FoundRESULTS RESULTS PROTHROMBIN TIME W/INR Collected: 04/25/2018 Status: F Source: [place] 9:43 AM [facility] REPOSITORY TYPE CODE TESTS RESULT OUT OF RANGE REFERENCE UNITS LAB L300.4150 11.7-14.9 SECONDS High PROTIME 30.0 LAB L300.4200 Normal INR 2.8 Performed By: #### L300.3900 #### [facility] [place], [address] CBC W/DIFF, AUTOMATED Collected: 04/18/2018 Status: F Source: [place] 9:54 AM [facility] REPOSITORY TYPE CODE TESTS RESULT OUT OF [...] Lymph 1.55 Performed By: #### L100.0100 #### [facility] [address] [facility] [address] PROTHROMBIN TIME W/INR Collected: 04/18/2018 Status: F Source: [place] 9:54 AM [facility] REPOSITORY TYPE CODE TESTS RESULT OUT OF RANGE REFERENCE UNITS LAB L300.4150 11.7-14.9 SECONDS High PROTIME 24.5 LAB L300.4200 Normal INR 2.2 Performed By: #### L300.3900 #### [facility] [address] [place], [place], [address] PROTHROMBIN TIME W/INR Collected: 03/23/2018 Status: F Source: [place] 10:33 AM [facility] REPOSITORY TYPE CODE TESTS RESULT OUT OF RANGE REFERENCE UNITS LAB L300.4150 11.7-14.9 SECONDS High PROTIME 30.5 LAB L300.4200 Normal INR 2.9 Performed By: #### L300.3900 #### [facility] [address] [place], [address] PROTHROMBIN TIME W/INR Collected: 03/02/2018 Status: F Source: [place] 11:34 AM [facility] REPOSITORY TYPE CODE TESTS RESULT OUT OF RANGE REFERENCE UNITS LAB L300.4150 11.7-14.9 SECONDS High PROTIME 29.2 LAB L300.4200 Normal INR 2.7 Performed By: #### L300.3900 #### [facility] [address] [place], [address] PROTHROMBIN TIME W/INR Collected: 02/22/2018 Status: F Source: [place] 1:41 PM [facility] REPOSITORY TYPE CODE TESTS RESULT OUT OF RANGE REFERENCE UNITS LAB L300.4150 11.7-14.9 SECONDS High PROTIME 31.4 LAB L300.4200 Normal INR 3.0 Performed By: #### L300.3900 #### [facility] [address] 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 mg/dL Normal 8.3 PROTEIN,UR LAB L3600.4200 . % Normal 39.4 ALBUMIN,UR LAB L3600.4300 . % Normal 2.3 UEKDQ-2-PPBY ,U LAB L3600.4400 . % Normal 9.5 REHLD-7-PPDD ,U LAB L3600.4500 . % Normal BETA 33.2 GLOB,U LAB L3600.4600 . % Normal GAMMA 15.5 GLOB,U LAB L3600.4720 Normal M-SPIKE,U Result Comment: NOT BSERVED LAB L3600.4800 . Normal NOTE Comment Result Comment: Protein electrophoresis scan will follow via computer, mail, or product manager delivery. Performed at: [place] [id number] [employer] Manager: Jairo Sears PhD, Phone: [phone] Performed By: #### L3600.4000 #### [facility] (refer to report for specific site) refer to report for address and phone number ANTINUCLEAR ANTIBODIES Collected: 02/07/2018 Status: F Source: [place] DIRECT 2:17 PM [facility] REPOSITORY TYPE CODE TESTS RESULT OUT OF RANGE REFERENCE UNITS LAB L3100.5475 Negative Normal Negative YURIY-DIRECT Result Comment: Performed at: [facility] [employer] [id number] [employer] Manager: Jairo Sears PhD, Phone: [phone] Performed By: #### L3100.5475 #### [facility] (refer to report for specific site) refer to report for address and phone number PROTEIN ELECTROPH, S Collected: 02/07/2018 Status: F Source: [place] 2:17 PM [facility] REPOSITORY TYPE CODE TESTS RESULT OUT OF [...] scan will follow via computer, mail, or product manager delivery. LAB L3100.4340 . Normal NOTE: Comment Result Comment: The SPE pattern appears essentially unremarkable. Evidence of monoclonal protein is not apparent. Performed at: [facility] [employer] [id number] [employer] Manager: Jairo Sears PhD, Phone: [phone] Performed By: #### L3100.3450 #### [facility] (refer to report for specific site) refer to report for address and phone number PROTHROMBIN TIME W/INR Collected: 02/01/2018 Status: F Source: [place] 7:18 AM [facility] REPOSITORY TYPE CODE TESTS RESULT OUT OF RANGE REFERENCE UNITS LAB L300.4150 11.7-14.9 SECONDS High PROTIME 28.9 LAB L300.4200 Normal INR 2.7 Performed By: #### L300.3900 #### [facility] [address] [place], [place], [address] CBC W/DIFF, AUTOMATED Collected: 01/14/2018 Status: F Source: [place] 7:58 AM [facility] REPOSITORY TYPE CODE TESTS RESULT OUT OF [...] Lymph 1.49 Performed By: #### L100.0100 #### [facility] [address] [place], [address] TOTAL BILIRUBIN Collected: 01/14/2018 Status: F Source: [place] 7:58 AM [facility] REPOSITORY TYPE CODE TESTS RESULT OUT OF RANGE REFERENCE UNITS LAB L501.4600 0.20-1.00 mg/dL Normal T BILI 0.80 Performed By: #### L501.4600, L501.4700 #### [facility] [address] [facility] [address] BILIRUBIN, DIRECT Collected: 01/14/2018 Status: F Source: [place] 7:58 AM [facility] REPOSITORY TYPE CODE TESTS RESULT OUT OF RANGE REFERENCE UNITS LAB L501.4700 0.00-0.30 mg/dL Normal D BILI 0.18 Performed By: #### L501.4600, L501.4700 #### [facility] [place], [address] PROTHROMBIN TIME W/INR Collected: 01/04/2018 Status: F Source: [place] 12:14 PM [facility] REPOSITORY TYPE CODE TESTS RESULT OUT OF RANGE REFERENCE UNITS LAB L300.4150 11.7-14.9 SECONDS High PROTIME 27.6 LAB L300.4200 Normal INR 2.6 Performed By: #### L300.3900 #### [facility] [address] [place], [address] DEXA BONE DENSITY Observed: 12/23/2017 Status: F Source: [place] STUDY 8:44 AM [facility] REPOSITORY [facility] Imaging Services [address] [place] [address] Dexa Bone Density Study MR#: [id number] Acct: [id number] Name: YAHAIRA BRYANT Rep #: [id number] : 1950 F 67 From: Cole Coronado MD PCP: Selam Blair NP Status: REG CLI Study: Dexa Bone Density Study Date of Exam: 12/23/17 Exam# [id number] Ordering Dr: Selam Blair STUDY: DUAL ENERGY [...] Cole Coronado MD at 8:50 EDT Tel [phone], Service support , CC: Selam Blair NP 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, [address] COMPREHENSIVE METABOLIC Collected: 12/17/2017 Status: F Source: [facility] 10:01 AM [facility] REPOSITORY TYPE CODE TESTS RESULT OUT OF [...] GAP 9 Performed By: #### L500.4050 #### [facility] [address] [facility] [place], [address] PROTHROMBIN TIME W/INR Collected: 12/14/2017 Status: F Source: [place] 2:15 PM [facility] REPOSITORY TYPE CODE TESTS RESULT OUT OF RANGE REFERENCE UNITS LAB L300.4150 11.7-14.9 SECONDS High PROTIME 31.3 LAB L300.4200 Normal INR 3.0 Performed By: #### L300.3900 #### [facility] [address] [facility] [place], [address] PROTHROMBIN TIME W/INR Collected: 11/15/2017 Status: F Source: [place] 7:26 AM [facility] REPOSITORY TYPE CODE TESTS RESULT OUT OF RANGE REFERENCE UNITS LAB L300.4150 11.7-14.9 SECONDS High PROTIME 29.3 LAB L300.4200 Normal INR 2.8 Performed By: #### L300.3900 #### [facility] [address] [place], [address] PROTHROMBIN TIME W/INR Collected: 10/28/2017 Status: F Source: [place] 12:50 PM [facility] REPOSITORY TYPE CODE TESTS RESULT OUT OF RANGE REFERENCE UNITS LAB L300.4150 11.7-14.9 SECONDS High PROTIME 28.7 LAB L300.4200 Normal INR 2.7 Performed By: #### L300.3900 #### [facility] [address] [place], [address] PROTHROMBIN TIME W/INR Collected: 10/21/2017 Status: F Source: [place] 8:35 AM [facility] REPOSITORY TYPE CODE TESTS RESULT OUT OF RANGE REFERENCE UNITS LAB L300.4150 11.7-14.9 SECONDS High PROTIME 30.2 LAB L300.4200 Normal INR 2.9 Performed By: #### L300.3900 #### [facility] [address] [facility] [place], [address] PROTHROMBIN TIME W/INR Collected: 10/14/2017 Status: F Source: [place] 7:44 AM [facility] REPOSITORY TYPE CODE TESTS RESULT OUT OF RANGE REFERENCE UNITS LAB L300.4150 11.7-14.9 SECONDS High PROTIME 30.1 LAB L300.4200 Normal INR 2.9 Performed By: #### L300.3900 #### [facility] [address] [facility] [place], [address] SCREENING MAMM (CAD), Observed: 10/07/2017 Status: F Source: [place] BILAT 7:26 AM [facility] REPOSITORY [facility] Imaging Services [address] [place] [address] SCREENING MAMM (CAD), BILAT MR#: [id number] Acct: [id number] Name: YAHAIRA BRYANT Rep #: [id number] : 1950 F 67 From: Cole Coronado MD PCP: Selam Blair NP Status: REG CLI Study: SCREENING MAMM (CAD), BILAT Date of Exam: 10/07/17 Exam# [id number] Ordering Dr: Aliza Santana MD MAMMOGRAPHY - [...] delay biopsy of a clinically suspicious abnormality. [id number] Electronically Signed: Cole Coronado MD at 11:23 EDT Tel [phone], Service support , CC: Selam Blair NP; Aliza Santana MD Lawn Service Worker: Signed PROTHROMBIN TIME W/INR Collected: 10/07/2017 Status: F Source: [place] 6:55 AM [facility] REPOSITORY TYPE CODE TESTS RESULT OUT OF RANGE REFERENCE UNITS LAB L300.4150 11.7-14.9 SECONDS High PROTIME 29.4 LAB L300.4200 Normal INR 2.8 Performed By: #### L300.3900 #### [facility] [address] [place], [address] DOWNTIME REPORT Observed: 2017 Status: F Source: [place] 12:28 PM [facility] REPOSITORY [facility] Medical Records Department [address] [facility] [place] [address] Downtime Report MR#: [id number] Acct: [id number] Name: YAHAIRA BRYANT Rep #: [id number] : 1950 67 From: Jered Man PCP: Selam Blair NP Status: REG CLI This patient was seen during an EMR downtime September 06, 2017 - September 13, 2017. This patient may have a combination of paper and electronic documentation or all paper documentation. All documentation is viewable within the e-chart portion of [facility] for each patient visit. PROTHROMBIN TIME W/INR Collected: 2017 Status: F Source: [place] 7:10 AM [facility] REPOSITORY TYPE CODE TESTS RESULT OUT OF RANGE REFERENCE UNITS LAB L300.4150 11.7-14.9 SECONDS High PROTIME 26.2 LAB L300.4200 Normal INR 2.4 Performed By: #### L300.3900 #### [facility] [address] [facility] [place], [address] PROTHROMBIN TIME W/INR Collected: 09/16/2017 Status: F Source: [place] 7:09 AM [facility] REPOSITORY TYPE CODE TESTS RESULT OUT OF RANGE REFERENCE UNITS LAB L300.4150 11.7-14.9 SECONDS Normal PROTIME 14.0 LAB L300.4200 Normal INR 1.1 Performed By: #### L300.3900 #### [facility] [place], [address] PROTHROMBIN TIME W/INR Collected: 09/08/2017 Status: F Source: [place] 8:29 AM [facility] REPOSITORY Order Comment: RESULT(S) PREVIOUSLY REPORTED ON MANUAL REQUISITION DURING DOWNTIME. TYPE CODE TESTS RESULT OUT OF RANGE REFERENCE UNITS LAB L300.4150 11.7-14.9 SECONDS High PROTIME 16.4 LAB L300.4200 Normal INR 1.3 Performed By: #### L300.3900 #### [facility] [place], [address] PROTHROMBIN TIME W/INR Collected: 08/16/2017 Status: F Source: [place] 7:30 AM [facility] REPOSITORY TYPE CODE TESTS RESULT OUT OF RANGE REFERENCE UNITS LAB L300.4150 11.7-14.9 SECONDS High PROTIME 22.9 LAB L300.4200 Normal INR 2.0 Performed By: #### L300.3900 #### [facility] [address] [place], [place], [address] PROTHROMBIN TIME W/INR Collected: 08/09/2017 Status: F Source: [place] 9:01 AM [facility] REPOSITORY TYPE CODE TESTS RESULT OUT OF RANGE REFERENCE UNITS LAB L300.4150 11.7-14.9 SECONDS High PROTIME 18.0 LAB L300.4200 Normal INR 1.5 Performed By: #### L300.3900 #### [facility] [address] [place] [address] [address]. [place], [place], [address] PROTHROMBIN TIME W/INR Collected: 07/26/2017 Status: F Source: [place] 9:46 AM [facility] REPOSITORY TYPE CODE TESTS RESULT OUT OF RANGE REFERENCE UNITS LAB L300.4150 11.7-14.9 SECONDS High PROTIME 22.2 LAB L300.4200 Normal INR 1.9 Performed By: #### L300.3900 #### [facility] [place], [address] PROTHROMBIN TIME W/INR Collected: 07/19/2017 Status: F Source: [place] 10:25 AM [facility] REPOSITORY TYPE CODE TESTS RESULT OUT OF RANGE REFERENCE UNITS LAB L300.4150 11.7-14.9 SECONDS High PROTIME 22.0 LAB L300.4200 Normal INR 1.9 Performed By: #### L300.3900 #### [facility] [address] [place], [address] PROTHROMBIN TIME W/INR Collected: 07/12/2017 Status: F Source: [place] 7:59 AM [facility] REPOSITORY TYPE CODE TESTS RESULT OUT OF RANGE REFERENCE UNITS LAB L300.4150 11.7-14.9 SECONDS High PROTIME 22.8 LAB L300.4200 Normal INR 2.0 Performed By: #### L300.3900 #### [facility] [address] [place], [place], [address] PROTHROMBIN TIME W/INR Collected: 07/05/2017 Status: F Source: [place] 9:58 AM [facility] REPOSITORY TYPE CODE TESTS RESULT OUT OF RANGE REFERENCE UNITS LAB L300.4150 11.7-14.9 SECONDS High PROTIME 20.7 LAB L300.4200 Normal INR 1.8 Performed By: #### L300.3900 #### [facility] [address] [place], [address] PROTHROMBIN TIME W/INR Collected: 06/28/2017 Status: F Source: [place] 10:31 AM [facility] REPOSITORY TYPE CODE TESTS RESULT OUT OF RANGE REFERENCE UNITS LAB L300.4150 11.7-14.9 SECONDS High PROTIME 19.9 LAB L300.4200 Normal INR 1.7 Performed By: #### L300.3900 #### [facility] [place], [address] PROTHROMBIN TIME W/INR Collected: 06/14/2017 Status: F Source: [place] 10:20 AM [facility] REPOSITORY TYPE CODE TESTS RESULT OUT OF RANGE REFERENCE UNITS LAB L300.4150 11.7-14.9 SECONDS High PROTIME 27.9 LAB L300.4200 Normal INR 2.6 Performed By: #### L300.3900 #### [facility] [place], [address] PROTHROMBIN TIME W/INR Collected: 06/04/2017 Status: F Source: [place] 7:39 AM [facility] REPOSITORY TYPE CODE TESTS RESULT OUT OF RANGE REFERENCE UNITS LAB L300.4150 11.7-14.9 SECONDS High PROTIME 30.5 LAB L300.4200 Normal INR 2.9 Performed By: #### L300.3900 #### [facility] [address] [place], [address] PROTHROMBIN TIME W/INR Collected: 05/31/2017 Status: F Source: [place] 10:00 AM [facility] REPOSITORY TYPE CODE TESTS RESULT OUT OF REFERENCE UNITS RANGE LAB L300.4150 11.7-14.9 SECONDS High PROTIME 35.0 LAB L300.4200 High alert INR 3.7 Result Comment: CRITICAL VALUE VERIFIED. CALLED TO KOLTON WOMACK 05/31/17 1130 Nii Lind. RESULTS READ BACK BY SAME. Performed By: #### L300.3900 #### [facility] [address] [place], [address] PROTHROMBIN TIME W/INR Collected: 05/24/2017 Status: F Source: [place] 7:21 AM [facility] REPOSITORY TYPE CODE TESTS RESULT OUT OF REFERENCE UNITS RANGE LAB L300.4150 11.7-14.9 SECONDS High PROTIME 42.4 LAB L300.4200 High alert INR 4.7 Result Comment: CRITICAL VALUE VERIFIED. CALLED TO GEOVANNI AT [facility] 05/24/17 0956 Violeta Noble. RESULTS READ BACK BY SAME . Performed By: #### L300.3900 #### [facility] [place], [address] PROTHROMBIN TIME W/INR Collected: 05/17/2017 Status: F Source: [place] 12:27 PM [facility] REPOSITORY TYPE CODE TESTS RESULT OUT OF RANGE REFERENCE UNITS LAB L300.4150 11.7-14.9 SECONDS High PROTIME 20.9 LAB L300.4200 Normal INR 1.9 Performed By: #### L300.3900 #### [facility] [place], [address] PROTHROMBIN TIME W/INR Collected: 05/10/2017 Status: F Source: [place] 7:42 AM [facility] REPOSITORY TYPE CODE TESTS RESULT OUT OF REFERENCE UNITS RANGE LAB L300.4150 11.7-14.9 SECONDS High PROTIME 39.8 LAB L300.4200 High alert INR 4.3 Result Comment: CRITICAL VALUE VERIFIED. CALLED TO 05/10/17 0830 Josue Velazquez. RESULTS READ BACK BY . Performed By: #### L300.3900 #### [facility] [address], [address] ALLERGIES ALLERGIES DATE TYPE / CODE NAME / CODE REACTION SEVERITY SOURCE 11/21/2014 Drug No Known Unknown [place] [facility] Allergy/4160 Allergies/F00 [facility] [address](SNOMED [id number](RXNOR Repository CT) M) ENCOUNTERS ENCOUNTERS ADMIT/DISCHARGE ACCOUNT ADMITTING ENCOUNTER LOCATION SOURCE NUMBER CLASS 04/25/2018 [id number] Ambulatory Jennifer Holton 0 [facility] ing:LAB Repository 04/21/2018 [id number] Ambulatory Building:[facility] [place] Practices Repository 04/18/2018 [id number] Ambulatory Jennifer Jennifer 4 [facility] ing:LAB Repository 03/23/2018/ [id number] Ambulatory Holton Jennifer 8 4 [facility] ing:LAB Repository 03/02/2018/ [id number] Ambulatory Holton Jennifer 8 8 [facility] ing:LAB Repository 02/15/2018 [id number] Ambulatory Jennifer Holton 6 [facility] ing:CVS Repository 02/07/2018 [id number] Ambulatory Jennifer Jennifer 5 [facility] ing:LAB Repository 02/01/2018/ [id number] Ambulatory Holton Jennifer 8 9 [facility] ing:LAB Repository 01/14/2018 [id number] Ambulatory Jennifer Jennifer 3 [facility] ing:LAB.FUTUR Repository E 12/23/2017 [id number] Ambulatory Holton Jennifer 2 [facility] ing:OPBD Repository 12/17/2017/ [id number] Ambulatory Jennifer Holton 8 8 [facility] ing:LAB Repository 11/15/2017/ [id number] Ambulatory Jennifer Holton 8 2 [facility] ing:LAB Repository 10/28/2017/ [id number] Ambulatory Holton Holton 8 3 [facility] ing:LAB Repository 10/07/2017 [id number] Ambulatory Jennifer Holton 5 [facility] ing:OPBI Repository 09/23/2017/ [id number] Ambulatory Holton Holton 8 6 [facility] ing:LAB Repository 09/08/2017 [id number] Ambulatory Holton Holton 9 [facility] ing:LAB Repository 08/16/2017/ [id number] Ambulatory Holton Jennifer 8 1 [facility] ing:LAB Repository 07/26/2017/ [id number] Ambulatory Jennifer Jennifer 8 7 [facility] ing:LAB Repository 06/28/2017/ [id number] Ambulatory Jennifer Holton 8 9 [facility] ing:LAB Repository 05/31/2017/ [id number] Ambulatory Jennifer Holton 8 2 [facility] ing:LAB Repository PAYERS PAYERS ENCOUNTER GUARANTOR PAYER SUBSCRIBER SOURCE 04/25/2018 YAHAIRA R Primary YAHAIRA R Holton [id number] Insurance:MEDICARE NEPTUNEDOB: [facility] PART A BPolicy [id number] Number: Repository [address]Qvo: [phone] [id number] [phone] () Date:2018-04-25 04/25/2018 Secondary YAHAIRA R Holton Insurance:AARPPolicy NEPTUNEDOB: [facility] Number: [id number] [facility] [id number] Repository Date:6229-06-43[address]ZJXGD, [place] [address]QY: 04/25/2018 Tertiary NOT GIVENUNK Jennifer Insurance:SELF PAY [facility] Number: Effective Repository Date:2018-04-25 04/21/2018 Yahaira R Primary Yahaira R OHIP Practices NeptuneDOB: Insurance:MedicarePol NeptuneDOB: Repository icy Number: [id number] Miller QO15Pznnryskx [place], [place] Date:9490-87-48Cknv [place], [place] [address]Urd: ([phone]) Name:[facility] [address]Rvj: 147[address], [place] [phone] () (HP)Tel: [phone]: [phone] 04/21/2018 Secondary Yahaira R OHIP Practices Insurance:AARP/UHCPol NeptuneDOB: Repository icy Number: [id number] [place] Date:4030[place]00-[place], [place] Name:[address] [address]Yae: [address]Pfttkcl, [place] ~( [id number]: [phone] 04/18/2018 YAHAIRA R Primary YAHAIRA R Holton [id number] Insurance:MEDICARE NEPTUNEDOB: [facility] PART A [facility] [id number] Number: Repository [address]Krb: [phone] [id number] [phone] () Date:2017-05-07 04/18/2018 Secondary YAHAIRA R Jennifer Insurance:AARPPolicy NEPTUNEDOB: Community Number: [id number] Hospital [id number] Repository Date:0934-13-97[address] [place] [address]KQ: 04/18/2018 Tertiary NOT GIVENUNK Jennifer Insurance:SELF PAY [facility] Number: Effective Repository Date:2018-04-04 03/23/2018 YAHAIRA R Primary YAHAIRA R Jennifer [id number] Insurance:MEDICARE NEPTUNEDOB: [facility] PART A [facility] [id number] Number: Repository [address]Lmv: [phone] [id number] [phone] () Date:2017-05-07 03/23/2018 Secondary YAHAIRA R Jennifer Insurance:AARPPolicy NEPTUNEDOB: Community Number: [id number] Hospital [id number] Repository Date:2612-92-78[address]HYCS [place] [address]JC: 03/23/2018 Tertiary NOT GIVENUNK Holton Insurance:SELF PAY [facility] Number: Effective Repository Date:2018-03-07 03/02/2018 YAHAIRA R Primary YAHAIRA R Holton [id number] Insurance:MEDICARE NEPTUNEDOB: Community MAN PART A [facility] [id number] Number: Repository [address]Osg: [phone] [id number] [phone] () Date:2017-05-07 03/02/2018 Secondary YAHAIRA R Holton Insurance:AARPPolicy NEPTUNEDOB: Community Number: [id number] Hospital [id number] Repository Date:8562-45-39[address]NRRLYED, [place] [address]HP: 03/02/2018 Tertiary NOT GIVENUNK Jennifer Insurance:SELF PAY [facility] Number: Effective Repository Date:2018-02-03 02/15/2018 YAHAIRA R Primary YAHAIRA R Jennifer [id number] Insurance:MEDICARE NEPTUNEDOB: Community MAN PART A [facility] [id number] [place] Number: Repository [address]Nnz: [phone] [id number] [phone] () Date:2018-02-14 02/15/2018 Secondary YAHAIRA R Holton Insurance:AARPPolicy NEPTUNEDOB: Community Number: [id number] Hospital [id number] Repository Date:0725-68-85[address]UW[place]OJK, [place] [address]ZA: 02/15/2018 Tertiary NOT GIVENUNK Holton Insurance:SELF PAY [facility] Number: Effective Repository Date:2018-02-14 02/07/2018 YAHAIRA R Primary YAHAIRA R Holton [id number] Insurance:MEDICARE NEPTUNEDOB: Community MAN PART A [facility] [id number] [place] Number: Repository [id number]: [phone] [id number] [phone] () Date:2018-02-07 02/07/2018 Secondary YAHAIRA R Jennifer Insurance:AARPPolicy NEPTUNEDOB: Community Number: [id number] Hospital [id number] Repository Date:5159-02-19YW [address]QEOVVWS, [place] [address]BA: 02/07/2018 Tertiary NOT GIVENUNK Holton Insurance:SELF PAY [facility] Number: Effective Repository Date:2018-02-07 02/01/2018 Yahaira R Primary Yahaira R Holton [id number] Insurance:MEDICARE NeptuneDOB: Community Man PART A [facility] [id number], [place] Number: Repository [address]Jsg: 330 [id number] [phone] () Date:2017-05-07 02/01/2018 Secondary Yahaira R Jennifer Insurance:AARPPolicy NeptuneDOB: Community Number: [id number] Hospital [id number] Repository Date:3062-22-14XX [facility] [address]OUT[place], [place] [address]YM: 02/01/2018 Tertiary NOT GIVENUNK Holton Insurance:SELF PAY [facility] Number: Effective Repository Date:2018-01-04 01/14/2018 Yahaira R Primary Yahaira R Jennifer [id number] Insurance:MEDICARE NeptuneDOB: Community Man PART A [facility] [id number], [place] Number: Repository [address]Pyt: 330 [id number] [phone] () Date:2017-12-21 01/14/2018 Secondary Yahaira R Jennifer Insurance:AARPPolicy NeptuneDOB: Community Number: [id number] Hospital [id number] Repository Date:6380-97-84GV [address]KEFVNLZ, [place] [address]IA: 01/14/2018 Tertiary NOT GIVENUNK Jennifer Insurance:SELF PAY [facility] Number: Effective Repository Date:2017-12-21 12/23/2017 Yahaira R Primary Yahaira R Holton [id number] Insurance:MEDICARE NeptuneDOB: Community Man PART A [facility] [id number], [place] Number: Repository [address]Mdv: 330 [id number] [phone] () Date:2017-12-17 12/23/2017 Secondary Yahaira R Holton Insurance:AARPPolicy NeptuneDOB: Community Number: [id number] Hospital [id number] Repository Date:8317-55-13VW [facility] 463791ZPHE[place]NM, [place] [address]QN: 12/23/2017 Tertiary NOT GIVENUNK Holton Insurance:SELF PAY [facility] Number: Effective Repository Date:2017-12-17 12/17/2017 Yahaira R Primary Yahaira R Jennifer [id number] Insurance:MEDICARE NeptuneDOB: [facility] PART A [facility] [id number] [place] Number[facility] Repository [address]Iar: 330 [id number] [phone] () Date:2017-05-07 12/17/2017 Secondary Yahaira R Holton Insurance:AARPPolicy NeptuneDOB: Community Number: [id number] Hospital [id number] Repository Date:7037-16-61JV [address]BBYERPU, [place] [address]QJ: 12/17/2017 Tertiary NOT GIVENUNK Jennifer Insurance:SELF PAY [facility] Number: Effective Repository Date:2017-12-07 11/15/2017 Yahaira R Primary Yahaira R Jennifer [id number] Insurance:MEDICARE NeptuneDOB: Community Man PART A [facility] [id number], [place] Number: Repository [address]Sgq: 330 [id number] [phone] () Date:2017-05-07 11/15/2017 Secondary Yahaira R Jennifer Insurance:AARPPolicy NeptuneDOB: Community Number: [id number] Hospital [id number] Repository Date:4249-57-86GB [address]GVEOWYH, [place] [address]TG: 11/15/2017 Tertiary NOT GIVENUNK Holton Insurance:SELF PAY [facility] Number: Effective Repository Date:2017-11-04 10/28/2017 Yahaira R Primary Yahaira R Holton [id number] Insurance:MEDICARE NeptuneDOB: Community Man PART A [facility] [id number], [place] Number: Repository [address]Hiz: 330 [id number] [phone] () Date:2017-05-07 10/28/2017 Secondary Yahaira R Jennifer Insurance:AARPPolicy NeptuneDOB: Community Number: [id number] Hospital [id number] Repository Date:6419-86-85UV [address]MSETPZO, [place] [address]BK: 10/28/2017 Tertiary NOT GIVENUNK Jennifer Insurance:SELF PAY [facility] Number: Effective Repository Date:2017-10-01 10/07/2017 Yahaira R Primary Yahaira R Holton [id number] Insurance:MEDICARE NeptuneDOB: Community Man PART A [facility] [id number], [place] Number: Repository [address]Toe: 330 [id number] [phone] () Date:2017-05-10 10/07/2017 Secondary Yahaira R Jennifer Insurance:AARPPolicy NeptuneDOB: Community Number: [id number] Hospital [id number] Repository Date:4504-33-30AF [address]RQBUHSH, [place] [address]EJ: 10/07/2017 Tertiary NOT GIVENUNK Jennifer Insurance:SELF PAY [facility] Number: Effective Repository Date:2017-05-10 2017 Yahaira R Primary Yahaira R Holton [id number] Insurance:MEDICARE NeptuneDOB: Community Man PART A [facility] [id number], [place] Number: Repository [address]Fls: 330 [id number] [phone] () Date:2017-05-07 2017 Secondary Yahaira R Jennifer Insurance:AARPPolicy NeptuneDOB: Community Number: [id number] Hospital [id number] Repository Date:5992-18-11[address]ZI[place], [place] [address]DD: 2017 Tertiary NOT GIVENUNK Jennifer Insurance:SELF PAY [facility] Number: Effective Repository Date:2017-09-02 09/08/2017 Yahaira R Primary Yahaira R Holton [id number] Insurance:MEDICARE NeptuneDOB: Community Man PART A [facility] [id number], [place] Number: Repository [address]Dbs: 330 [id number] [phone] () Date:2017-09-08 09/08/2017 Secondary Yahaira R Holton Insurance:AARPPolicy NeptuneDOB: Community Number: [id number] Hospital [id number] Repository Date:2823-03-03EW [address]SXNDJAQ, [place] [address]BX: 09/08/2017 Tertiary NOT GIVENUNK Holton Insurance:SELF PAY [facility] Number: Effective Repository Date:2017-09-08 08/16/2017 Ayhaira R Primary Yahaira R Holton [id number] Insurance:MEDICARE NeptuneDOB: Community Man PART A [facility] [id number], [place] Number: Repository [id number]: [id number] [phone] Date:2017-05-07 () 08/16/2017 Secondary Yahaira R Holton Insurance:AARPPolicy NeptuneDOB: Community Number: [id number] Hospital [id number] Repository Date:8008-03-44[address]GZPAPPU, [place] [address]GO: 08/16/2017 Tertiary NOT GIVENUNK Holton Insurance:SELF PAY [facility] Number: Effective Repository Date:2017-08-03 07/26/2017 Yahaira R Primary Yahaira R Holton [id number] Insurance:MEDICARE NeptuneDOB: Community Man PART A [address]06[address]21[facility] [place] Number: Repository [address]Rka: [id number] [phone] Date:2017-05-07 () 07/26/2017 Secondary Yahaira R Holton Insurance:AARPPolicy NeptuneDOB: Community Number: [id number] Hospital [id number] Repository Date:2428-41-87OP [facility] [address]GFDQ[place]N, [place] [address]HE: 07/26/2017 Tertiary NOT GIVENUNK Jennifer Insurance:SELF PAY [facility] Number: Effective Repository Date:2017-07-05 06/28/2017 Yahaira R Primary Yahaira R Jennifer [id number] Insurance:MEDICARE NeptuneDOB: Community Man PART A [facility] [id number] [place] Number: Repository [id number]: [id number] [phone] Date:2017-05-07 () 06/28/2017 Secondary Yahaira R Jennifer Insurance:AARPPolicy NeptuneDOB: Community Number: [id number] Hospital [id number] Repository Date:6912-05-54RD [facility] [address]26[address]JLFNAIY, [place] [address]AR: 06/28/2017 Tertiary NOT GIVENUNK Jennifer Insurance:SELF PAY [facility] Number: Effective Repository Date:2017-06-04 05/31/2017 Yahaira R Primary Yahaira R Jennifer [id number] Insurance:MEDICARE NeptuneDOB: Community Man PART A [address]06-21[facility] [place] Number: Repository [address]Olt: [id number] [phone] Date:2017-05-07 () 05/31/2017 Secondary Yahaira R Jennifer Insurance:AARPPolicy NeptuneDOB: Community Number: [id number] [facility] [id number] Repository Date:9379-12-65ZM [facility] [address]HVWRHUF, [place] [address]KV: 05/31/2017 Tertiary NOT GIVENUNK Holton Insurance:SELF PAY [facility] Number: Effective Repository Date:2017-05-07
== END 2018-04-25 10:00 | disposition home or self-care (01) ==
LOC: LAB 09:33
PROVIDERS: Family Provider Nurse Practitioner; PCP Nurse Practitioner; Referring Provider Nurse Practitioner; Visit Provider Nurse Practitioner
DX: Z86.718 Personal history of other venous thrombosis and embolism (principal)
CPT/HCPCS: 36415; 85610

== ENCOUNTER 2018-05-16 12:50 | Outpatient (RCR) | payer MEDICARE, OTHER, SELFPAY ==
[2018-05-16 14:53] LABS: International Normalized Ratio 2.8
== END 2018-06-02 14:31 | disposition home or self-care (01) ==
LOC: LAB 12:50
PROVIDERS: Family Provider Nurse Practitioner; PCP Nurse Practitioner; Referring Provider Nurse Practitioner; Visit Provider Nurse Practitioner
DX: Z86.718 Personal history of other venous thrombosis and embolism (principal)
CPT/HCPCS: 36415; 85610

== ENCOUNTER 2018-06-06 13:12 | Outpatient (RCR) | payer MEDICARE, OTHER, SELFPAY ==
[2018-06-06 13:57] LABS: International Normalized Ratio 2.8; Prothrombin Time (Protime)PT. 29.5 SECONDS (11.7-14.9)
== END 2018-06-06 14:12 | disposition home or self-care (01) ==
LOC: LAB 13:12
PROVIDERS: Family Provider Nurse Practitioner; PCP Nurse Practitioner; Referring Provider Nurse Practitioner; Visit Provider Nurse Practitioner
DX: Z86.718 Personal history of other venous thrombosis and embolism (principal)
CPT/HCPCS: 36415; 85610

== ENCOUNTER 2018-07-18 12:58 | Outpatient (RCR) | payer MEDICARE, OTHER, SELFPAY ==
[2018-07-06 11:18] LABS: International Normalized Ratio 2.7; Prothrombin Time (Protime)PT. 28.4 SECONDS (11.7-14.9)
[2018-07-18 13:42] LABS: Absolute Lymphocyte Count 1.24 X10^3/ul (0.83-4.51); Absolute Neutrophil Count 1.6 X10^3/uL (2.0-7.7); Basophil# 0.06 X10^3/uL; Basophil% 1.8 % (0-1); Eosinophil# 0.07 X10^3/uL; Eosinophils% 2.1 % (0-5); Hematocrit 38.5 % (37-47); Hemoglobin 13.2 g/dl (12.0-15.0); Lymphocyte # 1.24 X10^3/ul (4.0); Lymphocyte % 36.8 % (19-41); Mean Corp Hgb Conc 34.3 g/gl (32-36); Mean Corpuscular Hgb 32.8 pg (27.0-32.0); Mean Corpuscular Volume 95.5 fL (81-99); Mean Platelet Vol. 9.9 fl (6.2-12.0); Monocyte# 0.36 X10^3/uL; Monocyte% 10.7 % (0-10); Neutrophil # 1.64 X10^3/uL (2.7-7.7); Neutrophil % 48.6 % (47-70); POSITIVE COUNT NO; POSITIVE DIFFERENTIAL NO; POSITIVE MORPHOLOGY NO; Platelet Count 202 K/mm3 (150-450); RBC Distribution Width CV 12.5 % (11.6-14.6); RBC Distribution Width SD 42.9 fl (35.1-43.9); Red Blood Count 4.03 M/mm3 (4.2-5.4); White Blood Count 3.4 K/mm3 (4.4-11.0)
== END 2018-08-02 16:00 | disposition home or self-care (01) ==
LOC: LAB 12:58
PROVIDERS: Family Provider Nurse Practitioner; PCP Nurse Practitioner; Referring Provider Nurse Practitioner; Visit Provider Nurse Practitioner
DX: Z86.718 Personal history of other venous thrombosis and embolism (principal)
CPT/HCPCS: 36415; 85025; 85610

== ENCOUNTER 2018-08-16 11:01 | Outpatient (RCR) | payer MEDICARE, OTHER, SELFPAY ==
[2018-08-09 10:39] LABS: International Normalized Ratio 3.4; Prothrombin Time (Protime)PT. 34.3 SECONDS (11.7-14.9)
[2018-08-16 11:36] LABS: Prothrombin Time (Protime)PT. 22.6 SECONDS (11.7-14.9)
== END 2018-08-16 12:01 | disposition home or self-care (01) ==
LOC: LAB 11:01
PROVIDERS: Family Provider Nurse Practitioner; PCP Nurse Practitioner; Referring Provider Nurse Practitioner; Visit Provider Nurse Practitioner
DX: Z86.718 Personal history of other venous thrombosis and embolism (principal)
CPT/HCPCS: 36415; 85610

== ENCOUNTER 2018-09-22 08:15 | Day surgery (SDC) | payer MEDICARE, OTHER, SELFPAY ==
[2018-09-16 09:07] VITALS: BMI 21.5
--- NOTE | 2018-09-16 12:00 | HP_ITS ---
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 Photoengraving Required: No Is patient in pain?: No Allergies No Known Allergies Allergy (Verified 09/16/18 09:07) Medications Acyclovir [Zovirax] 800 mg PO DAILY 11/21/14 [History Confirmed 09/16/18] Ascorbic Acid [Vitamin C] 3,000 mg PO QHS 11/21/14 [History Confirmed 09/16/18] Cholecalciferol (Vitamin D3) [Vitamin D3] 10,000 unit PO DAILY 11/21/14 [History Confirmed 09/16/18] L.acidoph,Paracasei, B.lactis [Probiotic] 1 ea PO DAILY 11/21/14 [History Confirmed 09/16/18] Magnesium 400 mg PO BID 11/21/14 [History Confirmed 09/16/18] Taurine [José Miguel Taurine] 1,000 mg PO QHS 11/21/14 [History Confirmed 09/16/18] Warfarin [Coumadin (PBKC)] 7 mg PO QODAY 11/21/14 [History Confirmed 09/16/18] Warfarin [Coumadin (PBKC)] 8 mg PO QODAY 11/21/14 [History Confirmed 09/16/18] Oxycodone HCl/Acetaminophen [Percocet 5/325] 1 - 2 tab PO Q4H PRN PRN #20 tab 11/26/14 [Rx Confirmed 09/16/18] oregano oil 1,500 mg capsule mg PO cap 09/16/18 [History Confirmed 09/16/18] PFSH Medical History Benign essential hypertension (Chronic) Factor II deficiency (Acute) Surgical History S/P appendectomy (Acute) S/P exploratory laparotomy (Acute) S/P tubal ligation (Acute) Family History Father Hypertension Heart disease Mother Thyroid disorder Social History Smoking Status: Never smoker alcohol intake: current alcohol intake frequency: holidays/special occasions only HPI HPI HPI: YAHAIRA BRYANT, is a 67 F who presents to the office today for HPI HPI Surgical H&P: Yes HPI: YAHAIRA BRYANT, is a 67 F who presents to the office today for evaluation of change in bowel habits. Patient has had a significant tapering and narrowing in of her stool. She has had difficulty eliminating the stool from her rectum. She has not noticed any obvious blood. She has had her stool tested and has been occult negative. Her last colonoscopy was by myself in 2012 which was negative. It was noted that she had significant melanosis coli from her anus to her cecum. ROS General General: No weight change, appetite, fatigue, colon cancer, breast cancer or weakness HEENT HEENT: No difficulty swallowing, eye injury, eye surgery, swollen glands or hoarseness Endo Endocrine: No thyroid disease, diabetes mellitus, thyroid cancer, Hair loss, heat intolerance or cold intolerance Skin Skin: No rash or changing moles Breast Breast: No left breast lump, right breast lump, nipple discharge, breast pain, abnormal mammogram, abnormal US or breast enlargement Musc Musculoskeletal: No back problems, arthritis, rheumatoid arthritis, gout or joint pain Cardio Cardiovascular: No murmur, pacemaker, heart disease, atrial fibrillation, high blood pressure, heart attack, heart stent, palpitations, shortness of breat with exertion or chest pain Psych Psychiatric: No depression, anxiety or hearing voices Resp Respiratory: No shortness of breath, No sleep apnea, No cough, No COPD, No asthma, No emphysema, No wheezing Gastro Gastrointestinal: No abdominal pain, No nausea or vomiting, No diarrhea, No constipation, No blood in stool, No acid reflux, No hemorrhoids, No ulcers, No gallbladder problem, No black,tarry stools Mil Hematologic: Yes blood thinners, Yes blood disorders, No bleeding, No anemia, Yes blood clots Neuro Neurologic: No system reviewed and no additional complaints, except as docu, No as per HPI, No abnormal walking, No abnormal hearing, No abnormal movements, No abnormal speech, No behavioral changes, No burning sensations, No confusion, No seizure-like activity, No unsteadiness, No dizziness, No localized weakness, No frequent falls, No headache(s), No lack of coordination, No loss of vision, No memory loss, Yes numbness, No other visual disturbances, No radiating pain, No restless legs, No sensory deficit, No fainting, Yes tingling, No tremor(s), No weakness, No other Exam Const General: no acute distress, well developed, well hydrated Orientation: oriented to person, oriented to place, oriented to time [facility] Head: normocephalic, atraumatic Ears: external ears normal Mouth: moist mucous membranes Eyes Sclera: sclerae normal Pupils: normal by confrontation Neck Neck: no lymphadenopathy noted Neck mass: No Thyroid: thyroid normal, symmetrical Chest Chest palpation & inspection: normal inspection of the chest Breast Palpation: No nipple discharge Resp Effort & Inspection: normal respiratory effort Auscultation: clear to auscultation bilaterally Percussion: percussion normal Cardio Rate: regular rate Rhythm: regular rhythm Heart Sounds: no murmurs GI Palpation: soft, no hepatosplenomegaly, no masses, nontender Rectal Exam: other Other: Rectal exam deferred. Extrem General: normal to inspection, no clubbing, cyanosis or edema Assessment & Plan Problems 1. Change in bowel habits R19.4 2. 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 I have offered the patient colonoscopy for evaluation. I have explained the risks/benefits of the procedure and described the procedure. I have discussed the risks with the patient, including but not limited to: infection, bleeding, perforation of the GI tract requiring emergency surgery, inability to complete the procedure, injury to any internal organs, complications of anesthesia, etc. - the patient understands and agrees to proceed. I have answered all the patient's questions to the patient's satisfaction and the patient has no further questions. The patient has been given instructions for the colon cleansing preparation. Coding Level of Care Code Off vis,new,level 3 Diagnoses Change in bowel habits R19.4 Melanosis coli K63.89 09/16/18 1200 <Electronically signed by Telly aguillon MD> Date _ Telly Darby MD I have re-examined the patient. There are no clinical changes since date of exam.
[2018-09-22 08:27] VITALS: BP 135/62; PULSE 72; RESP 14; TEMP 36.2; O2SAT 100; BMI 21.0
[2018-09-22 08:40] LABS: Prothrombin Time Fingerstick 13.3 SEC (11.9-14.4)
[2018-09-22 09:08] VITALS: BP 102/60; BP 135/62; PULSE 65; RESP 16; TEMP 36.3; O2SAT 100
[2018-09-22 09:10] VITALS: BP 135/62; BP 93/58; PULSE 60; RESP 16; O2SAT 97
[2018-09-22 09:15] VITALS: BP 100/62; BP 135/62; PULSE 58; RESP 16; O2SAT 99
--- NOTE | 2018-09-22 09:18 | OP.ENDO_ITS ---
09/22/2018 Selam Blair, [facility] [address] [place] [address] Re : Colonoscopy procedure for Lori Topete Dear Ms. Blair This procedure was performed on September. My impressions and recommendations are as follows: Impressions : - Non-bleeding internal hemorrhoids. No specimens collected. - Diverticulosis in the sigmoid colon. No specimens collected. - The examined portion of the ileum was normal. - Melanosis in the colon. No specimens collected. - The examination was otherwise normal. Recommendations : - Discharge patient to home. - Resume previous diet. - Continue present medications. - Await pathology results. - Repeat colonoscopy in 10 years for screening purposes. - Return to my office in 1 week. My findings are described in the full procedure note, which is enclosed. If I can be of further assistance, please feel free to contact me at Doctor phone number(s): , Fax: [phone], Work: . Sincerely, MD Telly Porras MD 09/22/2018 9:18:02 AM This report has been signed electronically.
[2018-09-22 09:21] VITALS: BP 107/60; BP 135/62; PULSE 62; RESP 16; TEMP 36.5; O2SAT 99
[2018-09-22 09:56] VITALS: BP 135/62
== END 2018-09-22 09:58 | disposition home or self-care (01) ==
LOC: EN 08:15 → AC 08:16
PROVIDERS: Family Provider Nurse Practitioner; PCP Nurse Practitioner; Referring Provider Nurse Practitioner; Visit Provider Surgery
PROC: 0DJD8ZZ Inspection of Lower Intestinal Tract, Via Natural or Artificial Opening Endoscopic (ICD-10-PCS; CPT 45378; principal; 2018-09-22 09:25)
DX: K57.30 Diverticulosis of large intestine without perforation or abscess without bleeding (principal); K63.89 Other specified diseases of intestine; K64.8 Other hemorrhoids; I10 Essential (primary) hypertension; D68.2 Hereditary deficiency of other clotting factors; Z78.0 Asymptomatic menopausal state; Z79.01 Long term (current) use of anticoagulants; Z79.899 Other long term (current) drug therapy; K58.9 Irritable bowel syndrome, unspecified; Z86.718 Personal history of other venous thrombosis and embolism
CPT/HCPCS: G0121; 36416; 85610; J7120

== ENCOUNTER 2018-09-29 12:57 | Outpatient (RCR) | payer MEDICARE, OTHER, SELFPAY ==
[2018-09-06 13:30] LABS: International Normalized Ratio 3.2; Prothrombin Time (Protime)PT. 33.2 SECONDS (11.7-14.9)
[2018-09-13 11:41] LABS: International Normalized Ratio 2.8; Prothrombin Time (Protime)PT. 29.9 SECONDS (11.7-14.9)
[2018-09-29 13:52] LABS: International Normalized Ratio 2.8; Prothrombin Time (Protime)PT. 29.4 SECONDS (11.7-14.9)
== END 2018-10-02 12:00 | disposition home or self-care (01) ==
LOC: LAB 12:57
PROVIDERS: Family Provider Nurse Practitioner; PCP Nurse Practitioner; Referring Provider Nurse Practitioner; Visit Provider Nurse Practitioner
DX: Z86.718 Personal history of other venous thrombosis and embolism (principal)
CPT/HCPCS: 36415; 85610

== ENCOUNTER 2018-10-20 12:44 | Outpatient (RCR) | payer MEDICARE, OTHER, SELFPAY ==
[2018-10-20 13:41] LABS: Absolute Lymphocyte Count 1.73 X10^3/uL (0.83-4.51); Basophil# 0.05 X10^3/uL; Basophil% 1.2 % (0-1); Eosinophil# 0.07 X10^3/uL; Eosinophils% 1.6 % (0-5); Hematocrit 39.5 % (37-47); Hemoglobin 13.7 g/dL (12.0-15.0); Lymphocyte # 1.73 X10^3/ul (4.0); Mean Corp Hgb Conc 34.7 g/dL (32-36); Mean Corpuscular Hgb 33.3 pg (27.0-32.0); Mean Corpuscular Volume 96.1 fL (81-99); Mean Platelet Vol. 10.3 fl (6.2-12.0); Monocyte# 0.45 X10^3/uL; Monocyte% 10.4 % (0-10); NRBC Flagged by Analyzer 0 % (0-5); Neutrophil # 2.01 X10^3/uL (2.7-7.7); Neutrophil % 46.6 % (47-70); Platelet Count 211 K/mm3 (150-450); RBC Distribution Width CV 12.2 % (11.6-14.6); RBC Distribution Width SD 42.2 fl (35.1-43.9); Red Blood Count 4.11 M/mm3 (4.2-5.4); White Blood Count 4.3 K/mm3 (4.4-11.0)
[2018-10-20 13:54] LABS: International Normalized Ratio 2.4; Prothrombin Time (Protime)PT. 25.9 SECONDS (11.7-14.9)
== END 2018-11-02 16:00 | disposition home or self-care (01) ==
LOC: LAB 12:44
PROVIDERS: Family Provider Nurse Practitioner; PCP Nurse Practitioner; Referring Provider Nurse Practitioner; Visit Provider Nurse Practitioner
DX: D72.819 Decreased white blood cell count, unspecified (principal); Z86.718 Personal history of other venous thrombosis and embolism
CPT/HCPCS: 36415; 85025; 85610

== ENCOUNTER 2018-11-21 12:00 | Outpatient (RCR) | payer MEDICARE, OTHER, SELFPAY ==
[2018-11-21 13:04] LABS: International Normalized Ratio 2.7; Prothrombin Time (Protime)PT. 29.1 SECONDS (11.7-14.9)
== END 2018-11-21 13:00 | disposition home or self-care (01) ==
LOC: LAB 12:00
PROVIDERS: Family Provider Nurse Practitioner; PCP Nurse Practitioner; Referring Provider Nurse Practitioner; Visit Provider Nurse Practitioner
DX: D72.819 Decreased white blood cell count, unspecified (principal); Z86.718 Personal history of other venous thrombosis and embolism
CPT/HCPCS: 36415; 85610

== ENCOUNTER 2019-01-25 08:36 | Outpatient (RCR) | payer MEDICARE, OTHER, SELFPAY ==
[2019-01-06 15:22] LABS: International Normalized Ratio 4.6
[2019-01-06 16:01] LABS: Prothrombin Time (Protime)PT. 44.4 SECONDS (11.7-14.9)
[2019-01-18 15:22] LABS: Hemoglobin 14.2 g/dL (12.0-15.0); Mean Corp Hgb Conc 34.6 g/dL (32-36); Mean Corpuscular Hgb 33.2 pg (27.0-32.0); Mean Corpuscular Volume 95.8 fL (81-99); Mean Platelet Vol. 10.4 fl (6.2-12.0); Platelet Count 222 K/mm3 (150-450); RBC Distribution Width CV 12.1 % (11.6-14.6); RBC Distribution Width SD 41.7 fl (35.1-43.9); Red Blood Count 4.28 M/mm3 (4.2-5.4); White Blood Count 5.6 K/mm3 (4.4-11.0)
[2019-01-18 15:44] LABS: International Normalized Ratio 1.5; Prothrombin Time (Protime)PT. 17.9 SECONDS (11.7-14.9)
[2019-01-25 09:28] LABS: International Normalized Ratio 2.2
== END 2019-01-25 18:00 | disposition home or self-care (01) ==
LOC: LAB 08:36
PROVIDERS: Family Provider Nurse Practitioner; PCP Nurse Practitioner; Referring Provider Nurse Practitioner; Visit Provider Nurse Practitioner
DX: D72.819 Decreased white blood cell count, unspecified (principal); Z86.718 Personal history of other venous thrombosis and embolism
CPT/HCPCS: 36415; 85027; 85610

== ENCOUNTER → 2019-02-01 07:24 | Outpatient (CLI) | payer MEDICARE, OTHER, SELFPAY ==
--- NOTE | 2019-02-01 07:27 | BI_ITS ---
MAMMOGRAPHY - BILATERAL SCREENING REASON FOR EXAM: Female, 68 years old. Routine annual screening examination. PERTINENT HISTORY: Non-contributory. TECHNIQUE: Digital bilateral breast onofre (3D mammographic acquisition) in the CC and MLO projections. 2-D mediolateral oblique (MLO) and craniocaudad (CC) views of both breasts were obtained. CAD: Full Field Digital Mammography with Computer Added Detection was performed. COMPARISON: Comparison is made with prior study dated October 07, 2017 and May 04, 2016. FINDINGS: Breast Composition: There are scattered areas of fibroglandular density. There are no dominant masses or suspicious calcifications. No other significant abnormalities are identified. There has been no significant change since the prior study. BI/SCREEN MAMM (CAD) W/ONOFRE BILAT IMPRESSION: Stable bilateral screening mammogram. Yearly follow-up mammogram recommended. (A) ASSESSMENT CATEGORY: BIRADS Category 1: Negative. A letter regarding these results will be sent to the patient by the facility within 30 days. Approximately 10% of breast cancers are not detected by mammography. A normal mammogram should not delay biopsy of a clinically suspicious abnormality. [id number] Electronically Signed: Cole Coronado, at 9:29 EDT , Service support ,
== END ==
PROVIDERS: Family Provider Nurse Practitioner; PCP Nurse Practitioner; Referring Provider Nurse Practitioner; Visit Provider Nurse Practitioner
DX: Z12.31 Encounter for screening mammogram for malignant neoplasm of breast (principal)
CPT/HCPCS: 77063; 77067

== ENCOUNTER 2019-03-01 11:44 | Outpatient (RCR) | payer MEDICARE, OTHER, SELFPAY ==
[2019-02-08 12:52] LABS: International Normalized Ratio 2.6; Prothrombin Time (Protime)PT. 27.6 SECONDS (11.7-14.9)
[2019-03-01 13:06] LABS: International Normalized Ratio 2.5; Prothrombin Time (Protime)PT. 26.8 SECONDS (11.7-14.9)
== END 2019-03-01 18:00 | disposition home or self-care (01) ==
LOC: LAB 11:44
PROVIDERS: Family Provider Nurse Practitioner; PCP Nurse Practitioner; Referring Provider Nurse Practitioner; Visit Provider Nurse Practitioner
DX: D72.819 Decreased white blood cell count, unspecified (principal); Z86.718 Personal history of other venous thrombosis and embolism
CPT/HCPCS: 36415; 85610

== ENCOUNTER 2019-03-27 10:59 | Outpatient (RCR) | payer MEDICARE, OTHER, SELFPAY ==
[2019-03-27 11:25] LABS: Prothrombin Time (Protime)PT. 31.5 SECONDS (11.7-14.9)
== END 2019-03-27 18:00 | disposition home or self-care (01) ==
LOC: LAB 10:59
PROVIDERS: Family Provider Nurse Practitioner; PCP Nurse Practitioner; Referring Provider Nurse Practitioner; Visit Provider Nurse Practitioner
DX: Z79.01 Long term (current) use of anticoagulants (principal); Z86.718 Personal history of other venous thrombosis and embolism
CPT/HCPCS: 36415; 85610

== ENCOUNTER 2019-04-18 06:44 | Outpatient (RCR) | payer MEDICARE, OTHER, SELFPAY ==
[2019-04-18 07:48] LABS: Absolute Lymphocyte Count 1.62 X10^3/uL (0.83-4.51); Absolute Neutrophil Count 1.2 X10^3/uL (2.0-7.7); Basophil# 0.05 X10^3/uL; Basophil% 1.5 % (0-1); Eosinophil# 0.12 X10^3/uL; Eosinophils% 3.5 % (0-5); Hemoglobin 14.6 g/dL (12.0-15.0); Lymphocyte # 1.62 X10^3/ul (4.0); Lymphocyte % 47.8 % (19-41); Mean Corp Hgb Conc 34.8 g/dL (32-36); Mean Corpuscular Volume 94.8 fL (81-99); Mean Platelet Vol. 10.5 fl (6.2-12.0); Monocyte# 0.39 X10^3/uL; Monocyte% 11.5 % (0-10); NRBC Flagged by Analyzer 0 % (0-5); Neutrophil % 35.4 % (47-70); Platelet Count 204 K/mm3 (150-450); Red Blood Count 4.43 M/mm3 (4.2-5.4); White Blood Count 3.4 K/mm3 (4.4-11.0)
[2019-04-18 07:58] LABS: International Normalized Ratio 2.1; Prothrombin Time (Protime)PT. 23.2 SECONDS (11.7-14.9)
[2019-04-18 08:18] LABS: ALB/GLOB Ratio 1.3 RATIO (0.9-2.4); AST(SGOT) 27 U/L (15-37); Alanine Aminotransfer ALT/SGPT 42 U/L (13-56); Albumin, Serum 3.9 g/dL (3.2-5.0); Alkaline Phosphatase 80 U/L (45-117); Anion Gap 3 (5-15); BUN 20 mg/dL (7-18); BUN/Creat Ratio 25.8 RATIO (10-20); Calcium,Total 8.7 mg/dL (8.5-10.1); Chloride 106 mmol/L (98-107); Cholesterol 215 mg/dL (200); Creatinine, Serum 0.78 mg/dL (0.55-1.02); EST Glomerular Filtration Rate 78 mL/min (>60); Est Glom Filt Rate - Afr Amer 95 mL/min (>60); Globulin 2.9 g/dL (2.2-4.2); Glucose 81 mg/dL (74-106); High Density Lipoprotein 90 mg/dL; Potassium 3.9 mmol/L (3.5-5.1); Protein, Total 6.8 g/dL (6.4-8.2); Sodium Level 140 mmol/L (136-145); Triglycerides 70 mg/dL; Very Low Density Lipoprotein 14 mg/dL (5-40)
[2019-04-18 10:04] LABS: Thyroid Stim Hormone (TSH) 2.55 uIU/mL (0.358-3.74)
== END 2019-04-18 18:00 | disposition home or self-care (01) ==
LOC: LAB 06:44
PROVIDERS: Family Provider Nurse Practitioner; PCP Nurse Practitioner; Referring Provider Nurse Practitioner; Visit Provider Nurse Practitioner
DX: Z00.00 Encounter for general adult medical examination without abnormal findings (principal); D72.819 Decreased white blood cell count, unspecified; Z86.718 Personal history of other venous thrombosis and embolism; Z13.220 Encounter for screening for lipoid disorders; Z13.29 Encounter for screening for other suspected endocrine disorder; K76.89 Other specified diseases of liver; R53.83 Other fatigue; Z79.01 Long term (current) use of anticoagulants
CPT/HCPCS: 36415; 80053; 80061; 84443; 85025; 85610

== ENCOUNTER 2019-05-23 15:46 | Outpatient (RCR) | payer MEDICARE, OTHER, SELFPAY ==
[2019-05-16 12:14] LABS: International Normalized Ratio 1.5; Prothrombin Time (Protime)PT. 17.8 SECONDS (11.7-14.9)
[2019-05-23 16:33] LABS: International Normalized Ratio 2.4; Prothrombin Time (Protime)PT. 26.1 SECONDS (11.7-14.9)
== END 2019-05-23 18:00 | disposition home or self-care (01) ==
LOC: LAB 15:46
PROVIDERS: Family Provider Nurse Practitioner; PCP Nurse Practitioner; Referring Provider Nurse Practitioner; Visit Provider Nurse Practitioner
DX: D72.819 Decreased white blood cell count, unspecified (principal); Z79.01 Long term (current) use of anticoagulants
CPT/HCPCS: 36415; 85610

== ENCOUNTER 2019-06-12 09:28 | Outpatient (RCR) | payer MEDICARE, OTHER, SELFPAY ==
[2019-06-12 10:23] LABS: International Normalized Ratio 2.3; Prothrombin Time (Protime)PT. 25.3 SECONDS (11.7-14.9)
== END 2019-06-12 18:00 | disposition home or self-care (01) ==
LOC: LAB 09:28
PROVIDERS: Family Provider Nurse Practitioner; PCP Nurse Practitioner; Referring Provider Nurse Practitioner; Visit Provider Nurse Practitioner
DX: Z79.01 Long term (current) use of anticoagulants (principal); D72.819 Decreased white blood cell count, unspecified
CPT/HCPCS: 36415; 85610

== ENCOUNTER 2019-07-31 11:02 | Outpatient (RCR) | payer MEDICARE, OTHER, SELFPAY ==
[2019-07-10 14:54] LABS: International Normalized Ratio 1.6; Prothrombin Time (Protime)PT. 18.3 SECONDS (11.7-14.9)
[2019-07-17 16:31] LABS: Absolute Lymphocyte Count 1.89 X10^3/uL (0.83-4.51); Absolute Neutrophil Count 3.1 X10^3/uL (2.0-7.7); Basophil# 0.05 X10^3/uL; Basophil% 0.9 % (0-1); Eosinophil# 0.08 X10^3/uL; Eosinophils% 1.4 % (0-5); Hematocrit 39.1 % (37-47); Hemoglobin 13.5 g/dL (12.0-15.0); Lymphocyte # 1.89 X10^3/ul (4.0); Lymphocyte % 33.5 % (19-41); Mean Corp Hgb Conc 34.5 g/dL (32-36); Mean Corpuscular Hgb 32.7 pg (27.0-32.0); Mean Corpuscular Volume 94.7 fL (81-99); Mean Platelet Vol. 11.3 fl (6.2-12.0); Monocyte# 0.56 X10^3/uL; Monocyte% 9.9 % (0-10); NRBC Flagged by Analyzer 0 % (0-5); Neutrophil # 3.05 X10^3/uL (2.7-7.7); Neutrophil % 54.1 % (47-70); Platelet Count 193 K/mm3 (150-450); RBC Distribution Width CV 12.7 % (11.6-14.6); RBC Distribution Width SD 43.8 fl (35.1-43.9); Red Blood Count 4.13 M/mm3 (4.2-5.4); White Blood Count 5.6 K/mm3 (4.4-11.0)
[2019-07-17 16:39] LABS: International Normalized Ratio 2.2; Prothrombin Time (Protime)PT. 23.7 SECONDS (11.7-14.9)
[2019-07-31 11:55] LABS: International Normalized Ratio 1.9; Prothrombin Time (Protime)PT. 21.1 SECONDS (11.7-14.9)
== END 2019-08-03 18:00 | disposition home or self-care (01) ==
LOC: LAB 11:02
PROVIDERS: Family Provider Nurse Practitioner; PCP Nurse Practitioner; Referring Provider Nurse Practitioner; Visit Provider Nurse Practitioner
DX: D72.819 Decreased white blood cell count, unspecified (principal); Z79.01 Long term (current) use of anticoagulants
CPT/HCPCS: 36415; 85025; 85610

== ENCOUNTER 2019-08-29 09:32 | Outpatient (RCR) | payer MEDICARE, OTHER, SELFPAY ==
[2019-08-14 13:35] LABS: International Normalized Ratio 1.8; Prothrombin Time (Protime)PT. 20.5 SECONDS (11.7-14.9)
[2019-08-29 10:54] LABS: International Normalized Ratio 2.5; Prothrombin Time (Protime)PT. 26.4 SECONDS (11.7-14.9)
== END 2019-08-29 18:00 | disposition home or self-care (01) ==
LOC: LAB 09:32
PROVIDERS: Family Provider Nurse Practitioner; PCP Nurse Practitioner; Referring Provider Nurse Practitioner; Visit Provider Nurse Practitioner
DX: Z79.01 Long term (current) use of anticoagulants (principal)
CPT/HCPCS: 36415; 85610

== ENCOUNTER 2019-09-26 12:17 | Outpatient (RCR) | payer MEDICARE, OTHER, SELFPAY ==
[2019-09-26 13:00] LABS: International Normalized Ratio 2.1
== END 2019-09-26 18:00 | disposition home or self-care (01) ==
LOC: LAB 12:17
PROVIDERS: Family Provider Nurse Practitioner; PCP Nurse Practitioner; Referring Provider Nurse Practitioner; Visit Provider Nurse Practitioner
DX: Z79.01 Long term (current) use of anticoagulants (principal)
CPT/HCPCS: 36415; 85610

== ENCOUNTER 2019-10-31 09:57 | Outpatient (RCR) | payer MEDICARE, OTHER, SELFPAY ==
[2019-10-23 10:27] LABS: Absolute Lymphocyte Count 1.36 X10^3/uL (0.83-4.51); Basophil# 0.07 X10^3/uL; Basophil% 1.8 % (0-1); Eosinophil# 0.09 X10^3/uL; Eosinophils% 2.3 % (0-5); Hematocrit 39.4 % (37-47); Hemoglobin 13.4 g/dL (12.0-15.0); Lymphocyte # 1.36 X10^3/ul (4.0); Lymphocyte % 34.3 % (19-41); Mean Corpuscular Hgb 33.6 pg (27.0-32.0); Mean Corpuscular Volume 98.7 fL (81-99); Mean Platelet Vol. 10.1 fl (6.2-12.0); Monocyte# 0.45 X10^3/uL; Monocyte% 11.4 % (0-10); NRBC Flagged by Analyzer 0 % (0-5); Neutrophil # 1.98 X10^3/uL (2.7-7.7); Neutrophil % 49.9 % (47-70); Platelet Count 204 K/mm3 (150-450); RBC Distribution Width CV 12.3 % (11.6-14.6); RBC Distribution Width SD 44.7 fl (35.1-43.9); Red Blood Count 3.99 M/mm3 (4.2-5.4)
[2019-10-23 10:32] LABS: International Normalized Ratio 3.6; Prothrombin Time (Protime)PT. 35.4 SECONDS (11.7-14.9)
[2019-10-31 11:05] LABS: International Normalized Ratio 1.9; Prothrombin Time (Protime)PT. 21.5 SECONDS (11.7-14.9)
== END 2019-10-31 18:00 | disposition home or self-care (01) ==
LOC: LAB 09:57
PROVIDERS: Family Provider Nurse Practitioner; PCP Nurse Practitioner; Referring Provider Nurse Practitioner; Visit Provider Nurse Practitioner
DX: D72.819 Decreased white blood cell count, unspecified (principal); Z79.01 Long term (current) use of anticoagulants
CPT/HCPCS: 36415; 85025; 85610

== ENCOUNTER 2019-11-20 11:16 | Outpatient (RCR) | payer MEDICARE, OTHER, SELFPAY ==
[2019-11-06 11:19] LABS: Prothrombin Time (Protime)PT. 30.6 SECONDS (11.7-14.9)
[2019-11-13 11:34] LABS: International Normalized Ratio 1.9; Prothrombin Time (Protime)PT. 21.6 SECONDS (11.7-14.9)
[2019-11-20 11:53] LABS: International Normalized Ratio 2.2
== END 2019-11-20 18:00 | disposition home or self-care (01) ==
LOC: LAB 11:16
PROVIDERS: Family Provider Nurse Practitioner; PCP Nurse Practitioner; Referring Provider Nurse Practitioner; Visit Provider Nurse Practitioner
DX: Z79.01 Long term (current) use of anticoagulants (principal)
CPT/HCPCS: 36415; 85610

== ENCOUNTER 2019-12-19 11:38 | Outpatient (RCR) | payer MEDICARE, OTHER, SELFPAY ==
[2019-12-19 13:23] LABS: Prothrombin Time (Protime)PT. 30.4 SECONDS (11.7-14.9)
== END 2019-12-19 18:00 | disposition home or self-care (01) ==
LOC: LAB 11:38
PROVIDERS: Family Provider Nurse Practitioner; PCP Nurse Practitioner; Referring Provider Nurse Practitioner; Visit Provider Nurse Practitioner
DX: Z79.01 Long term (current) use of anticoagulants (principal)
CPT/HCPCS: 36415; 85610

== ENCOUNTER 2020-01-23 15:43 | Outpatient (RCR) | payer MEDICARE, OTHER, SELFPAY ==
[2020-01-16 11:57] LABS: International Normalized Ratio 2.8; Prothrombin Time (Protime)PT. 29.1 SECONDS (11.7-14.9)
[2020-01-23 15:56] LABS: Absolute Lymphocyte Count 1.79 X10^3/uL (0.83-4.51); Basophil# 0.05 X10^3/uL; Basophil% 1.1 % (0-1); Eosinophil# 0.12 X10^3/uL; Eosinophils% 2.6 % (0-5); Hematocrit 39.6 % (37-47); Hemoglobin 13.6 g/dL (12.0-15.0); Lymphocyte # 1.79 X10^3/ul (4.0); Lymphocyte % 38.7 % (19-41); Mean Corp Hgb Conc 34.3 g/dL (32-36); Mean Corpuscular Hgb 33.3 pg (27.0-32.0); Mean Corpuscular Volume 97.1 fL (81-99); Mean Platelet Vol. 10.1 fl (6.2-12.0); Monocyte# 0.62 X10^3/uL; Monocyte% 13.4 % (0-10); NRBC Flagged by Analyzer 0 % (0-5); Neutrophil # 2.03 X10^3/uL (2.7-7.7); Platelet Count 222 K/mm3 (150-450); RBC Distribution Width CV 12.2 % (11.6-14.6); RBC Distribution Width SD 43.6 fl (35.1-43.9); Red Blood Count 4.08 M/mm3 (4.2-5.4); White Blood Count 4.6 K/mm3 (4.4-11.0)
== END 2020-01-23 18:00 | disposition home or self-care (01) ==
PROVIDERS: Family Provider Nurse Practitioner; PCP Nurse Practitioner; Referring Provider Nurse Practitioner; Visit Provider Nurse Practitioner
DX: Z79.01 Long term (current) use of anticoagulants (principal)
CPT/HCPCS: 36415; 85025; 85610

== ENCOUNTER → 2020-02-06 11:59 | Outpatient (CLI) | payer MEDICARE, OTHER, SELFPAY ==
[2020-02-06 15:51] LABS: ALB/GLOB Ratio 1.3 RATIO (0.9-2.4); AST(SGOT) 21 U/L (15-37); Alanine Aminotransfer ALT/SGPT 27 U/L (13-56); Albumin, Serum 3.9 g/dL (3.2-5.0); Alkaline Phosphatase 81 U/L (45-117); Anion Gap 6 (5-15); BUN 18 mg/dL (7-18); BUN/Creat Ratio 28.4 RATIO (10-20); Calcium,Total 8.7 mg/dL (8.5-10.1); Chloride 105 mmol/L (98-107); Cholesterol 225 mg/dL (200); Creatinine, Serum 0.63 mg/dL (0.55-1.02); EST Glomerular Filtration Rate 99 mL/min (>60); Est Glom Filt Rate - Afr Amer 119 mL/min (>60); Glucose 69 mg/dL (74-106); High Density Lipoprotein 80 mg/dL; Potassium 3.8 mmol/L (3.5-5.1); Protein, Total 6.9 g/dL (6.4-8.2); Sodium Level 141 mmol/L (136-145); Thyroid Stim Hormone (TSH) 2.14 uIU/mL (0.358-3.74); Triglycerides 47 mg/dL; Very Low Density Lipoprotein 9 mg/dL (5-40)
== END ==
PROVIDERS: PCP Nurse Practitioner; Referring Provider Nurse Practitioner; Visit Provider Nurse Practitioner
DX: Z00.00 Encounter for general adult medical examination without abnormal findings (principal); Z13.220 Encounter for screening for lipoid disorders; Z13.29 Encounter for screening for other suspected endocrine disorder; M81.0 Age-related osteoporosis without current pathological fracture; K76.89 Other specified diseases of liver
CPT/HCPCS: 36415; 80053; 80061; 84443

== ENCOUNTER → 2020-02-14 15:52 | Outpatient (CLI) | payer MEDICARE, OTHER, SELFPAY ==
--- NOTE | 2020-02-14 15:55 | RAD_ITS ---
STUDY: X-RAY - LEFT WRIST REASON FOR EXAM: Female, 69 years old. fell today, bilat wrist pain TECHNIQUE: 3 view(s) of the wrist were obtained. COMPARISON: None. FINDINGS: Bones are demineralized. There is no demonstrated fracture or suspicious osseous lesion, joint space is well-preserved. RAD/Wrist min 3 Views IMPRESSION: Demineralization, no demonstrated fracture or suspicious osseous lesion Electronically Signed: Nikolas Agustin MD at 16:16 EST , Service support ,
--- NOTE | 2020-02-14 15:55 | RAD_ITS ---
STUDY: X-RAY - RIGHT WRIST REASON FOR EXAM: Female, 69 years old. fell today, bilat wrist pain TECHNIQUE: 3 view(s) of the wrist were obtained. COMPARISON: None. FINDINGS: Bones are demineralized. On only the lateral view, there is cortical irregularity involving the superior aspect of the dorsal lunate suspicious for fracture. There is associated soft tissue swelling. No other demonstrated fracture. Joint spaces are well preserved RAD/Wrist min 3 Views IMPRESSION: Acute minimally displaced avulsion fracture suspected in the lunate, this is seen only on the lateral view. There is associated soft tissue swelling Electronically Signed: Nikolas Agustin MD at 16:16 EST , Service support ,
== END ==
PROVIDERS: PCP Nurse Practitioner; Referring Provider Nurse Practitioner; Visit Provider Nurse Practitioner
DX: S62.101A Fracture of unspecified carpal bone, right wrist, initial encounter for closed fracture (principal); W19.XXXA Unspecified fall, initial encounter; Y93.9 Activity, unspecified; Y92.9 Unspecified place or not applicable; Y99.9 Unspecified external cause status; M25.532 Pain in left wrist
CPT/HCPCS: 73110

== ENCOUNTER 2020-02-27 15:21 | Outpatient (RCR) | payer MEDICARE, OTHER, SELFPAY ==
[2020-02-13 17:12] LABS: International Normalized Ratio 3.3; Prothrombin Time (Protime)PT. 32.8 SECONDS (11.7-14.9)
[2020-02-27 16:42] LABS: International Normalized Ratio 3.1; Prothrombin Time (Protime)PT. 31.5 SECONDS (11.7-14.9)
== END 2020-02-27 18:00 | disposition home or self-care (01) ==
LOC: LAB 15:21
PROVIDERS: Family Provider Nurse Practitioner; PCP Nurse Practitioner; Referring Provider Nurse Practitioner; Visit Provider Nurse Practitioner
DX: Z79.01 Long term (current) use of anticoagulants (principal)
CPT/HCPCS: 36415; 85610

== ENCOUNTER → 2020-03-26 07:02 | Outpatient (CLI) | payer MEDICARE, OTHER, SELFPAY ==
--- NOTE | 2020-03-26 07:04 | BI_ITS ---
MAMMOGRAPHY - BILATERAL SCREENING REASON FOR EXAM: Female, 69 years old. Routine annual screening examination. PERTINENT HISTORY: Non-contributory. TECHNIQUE: Digital bilateral breast onofre (3D mammographic acquisition) in the CC and MLO projections. 2-D mediolateral oblique (MLO) and craniocaudad (CC) views of both breasts were obtained. CAD: Full Field Digital Mammography with Computer Added Detection was performed. COMPARISON: Comparison is made with prior study dated 02/01/2019 and 10/07/2017. FINDINGS: Breast Composition: There are scattered areas of fibroglandular density. There are no dominant masses or suspicious calcifications. No other significant abnormalities are identified. There has been no significant change since the prior study. BI/SCREEN MAMM (CAD) W/ONOFRE BILAT IMPRESSION: Stable bilateral screening mammogram. Yearly follow-up mammogram recommended. (A) ASSESSMENT CATEGORY: BIRADS Category 1: Negative. A letter regarding these results will be sent to the patient by the facility within 30 days. Approximately 10% of breast cancers are not detected by mammography. A normal mammogram should not delay biopsy of a clinically suspicious abnormality. [id number] Electronically Signed: Cole Coronado, at 8:26 EST , Service support ,
== END ==
PROVIDERS: PCP Nurse Practitioner; Referring Provider Nurse Practitioner; Visit Provider Nurse Practitioner
DX: Z12.31 Encounter for screening mammogram for malignant neoplasm of breast (principal)
CPT/HCPCS: 77063; 77067

== ENCOUNTER 2020-04-03 15:09 | Outpatient (RCR) | payer MEDICARE, OTHER, SELFPAY ==
[2020-03-19 16:01] LABS: International Normalized Ratio 2.3; Prothrombin Time (Protime)PT. 24.6 SECONDS (11.7-14.9)
[2020-04-03 16:06] LABS: International Normalized Ratio 2.1; Prothrombin Time (Protime)PT. 22.9 SECONDS (11.7-14.9)
== END 2020-04-03 18:00 | disposition home or self-care (01) ==
LOC: LAB 15:09
PROVIDERS: Family Provider Nurse Practitioner; PCP Nurse Practitioner; Referring Provider Nurse Practitioner; Visit Provider Nurse Practitioner
DX: Z79.01 Long term (current) use of anticoagulants (principal)
CPT/HCPCS: 36415; 85610

== ENCOUNTER 2020-05-02 13:11 | Outpatient (RCR) | payer MEDICARE, OTHER, SELFPAY ==
[2020-05-02 14:54] LABS: Absolute Lymphocyte Count 1.82 X10^3/uL (0.83-4.51); Absolute Neutrophil Count 2.5 X10^3/uL (2.0-7.7); Basophil# 0.04 X10^3/uL; Basophil% 0.8 % (0-1); Eosinophil# 0.09 X10^3/uL; Eosinophils% 1.8 % (0-5); Hemoglobin 13.5 g/dL (12.0-15.0); Lymphocyte # 1.82 X10^3/ul (4.0); Lymphocyte % 36.7 % (19-41); Mean Corp Hgb Conc 33.8 g/dL (32-36); Mean Corpuscular Hgb 32.7 pg (27.0-32.0); Mean Corpuscular Volume 96.9 fL (81-99); Mean Platelet Vol. 10.6 fl (6.2-12.0); Monocyte# 0.51 X10^3/uL; Monocyte% 10.3 % (0-10); NRBC Flagged by Analyzer 0 % (0-5); Neutrophil # 2.49 X10^3/uL (2.7-7.7); Neutrophil % 50.2 % (47-70); Platelet Count 220 K/mm3 (150-450); Red Blood Count 4.13 M/mm3 (4.2-5.4)
[2020-05-02 15:06] LABS: International Normalized Ratio 1.7; Prothrombin Time (Protime)PT. 19.8 SECONDS (11.7-14.9)
== END 2020-05-02 18:00 | disposition home or self-care (01) ==
LOC: LAB 13:11
PROVIDERS: Family Provider Nurse Practitioner; PCP Nurse Practitioner; Referring Provider Nurse Practitioner; Visit Provider Nurse Practitioner
DX: Z79.01 Long term (current) use of anticoagulants (principal); D72.819 Decreased white blood cell count, unspecified
CPT/HCPCS: 36415; 85025; 85610

== ENCOUNTER 2020-05-17 10:00 | Outpatient (RCR) | payer MEDICARE, OTHER, SELFPAY ==
[2020-05-17 10:47] LABS: International Normalized Ratio 1.6; Prothrombin Time (Protime)PT. 18.5 SECONDS (11.7-14.9)
== END 2020-05-17 18:00 | disposition home or self-care (01) ==
LOC: LAB 10:00
PROVIDERS: Family Provider Nurse Practitioner; PCP Nurse Practitioner; Referring Provider Nurse Practitioner; Visit Provider Nurse Practitioner
DX: Z79.01 Long term (current) use of anticoagulants (principal)
CPT/HCPCS: 36415; 85610

== ENCOUNTER 2020-07-02 09:37 | Outpatient (RCR) | payer MEDICARE, OTHER, SELFPAY ==
[2020-06-03 17:33] LABS: International Normalized Ratio 2.5; Prothrombin Time (Protime)PT. 26.5 SECONDS (11.7-14.9)
[2020-07-02 10:41] LABS: International Normalized Ratio 1.9; Prothrombin Time (Protime)PT. 20.9 SECONDS (11.7-14.9)
== END 2020-07-02 18:00 | disposition home or self-care (01) ==
LOC: LAB 09:37
PROVIDERS: Family Provider Nurse Practitioner; PCP Nurse Practitioner; Referring Provider Nurse Practitioner; Visit Provider Nurse Practitioner
DX: Z79.01 Long term (current) use of anticoagulants (principal)
CPT/HCPCS: 36415; 85610

== ENCOUNTER 2020-07-31 08:29 | Outpatient (RCR) | payer MEDICARE, OTHER, SELFPAY ==
[2020-07-16 11:50] LABS: International Normalized Ratio 2.3; Prothrombin Time (Protime)PT. 24.8 SECONDS (11.7-14.9)
[2020-07-31 09:50] LABS: International Normalized Ratio 2.5
== END 2020-07-31 18:00 | disposition home or self-care (01) ==
LOC: LAB 08:29
PROVIDERS: Family Provider Nurse Practitioner; PCP Nurse Practitioner; Referring Provider Nurse Practitioner; Visit Provider Nurse Practitioner
DX: D72.819 Decreased white blood cell count, unspecified (principal); Z79.01 Long term (current) use of anticoagulants
CPT/HCPCS: 36415; 85610

== ENCOUNTER 2020-08-28 09:41 | Outpatient (RCR) | payer MEDICARE, OTHER, SELFPAY ==
[2020-08-28 10:41] LABS: International Normalized Ratio 2.2; Prothrombin Time (Protime)PT. 23.4 SECONDS (11.7-14.9)
== END 2020-08-28 18:00 | disposition home or self-care (01) ==
LOC: LAB 09:41
PROVIDERS: Family Provider Nurse Practitioner; PCP Nurse Practitioner; Referring Provider Nurse Practitioner; Visit Provider Nurse Practitioner
DX: D72.819 Decreased white blood cell count, unspecified (principal); Z79.01 Long term (current) use of anticoagulants
CPT/HCPCS: 36415; 85610

== ENCOUNTER 2020-09-26 07:07 | Outpatient (RCR) | payer MEDICARE, OTHER, SELFPAY ==
[2020-09-26 08:13] LABS: International Normalized Ratio 2.2; Prothrombin Time (Protime)PT. 23.3 SECONDS (11.7-14.9)
== END 2020-09-26 18:00 | disposition home or self-care (01) ==
LOC: LAB 07:07
PROVIDERS: Family Provider Nurse Practitioner; PCP Nurse Practitioner; Referring Provider Nurse Practitioner; Visit Provider Nurse Practitioner
DX: Z79.01 Long term (current) use of anticoagulants (principal)
CPT/HCPCS: 36415; 85610

== ENCOUNTER 2020-10-24 16:27 | Outpatient (RCR) | payer MEDICARE, OTHER, SELFPAY ==
[2020-10-24 17:17] LABS: Absolute Lymphocyte Count 1.52 X10^3/uL (0.83-4.51); Absolute Neutrophil Count 2.4 X10^3/uL (2.0-7.7); Basophil# 0.05 X10^3/uL; Basophil% 1.1 % (0-1); Eosinophil# 0.09 X10^3/uL; Eosinophils% 2.1 % (0-5); Hematocrit 39.4 % (37-47); Hemoglobin 13.8 g/dL (12.0-15.0); Lymphocyte # 1.52 X10^3/ul (0.83-4.51); Lymphocyte % 34.6 % (19-41); Mean Corpuscular Hgb 32.9 pg (27.0-32.0); Mean Platelet Vol. 10.3 fl (6.2-12.0); Monocyte# 0.37 X10^3/uL; Monocyte% 8.4 % (0-10); NRBC Flagged by Analyzer 0 % (0-5); Neutrophil # 2.35 X10^3/uL (2.7-7.7); Neutrophil % 53.6 % (47-70); Platelet Count 228 K/mm3 (150-450); RBC Distribution Width SD 41.5 fl (35.1-43.9); Red Blood Count 4.19 M/mm3 (4.2-5.4); White Blood Count 4.4 K/mm3 (4.4-11.0)
[2020-10-24 17:27] LABS: International Normalized Ratio 2.4; Prothrombin Time (Protime)PT. 25.1 SECONDS (11.7-14.9)
== END 2020-10-24 18:00 | disposition home or self-care (01) ==
LOC: LAB 16:27
PROVIDERS: Family Provider Nurse Practitioner; PCP Nurse Practitioner; Referring Provider Nurse Practitioner; Visit Provider Nurse Practitioner
DX: D72.819 Decreased white blood cell count, unspecified (principal); Z79.01 Long term (current) use of anticoagulants
CPT/HCPCS: 36415; 85025; 85610

== ENCOUNTER 2020-11-28 14:55 | Outpatient (RCR) | payer MEDICARE, OTHER, SELFPAY ==
[2020-11-21 12:10] LABS: International Normalized Ratio 4.5; Prothrombin Time (Protime)PT. 41.9 SECONDS (11.7-14.9)
[2020-11-28 16:02] LABS: Prothrombin Time (Protime)PT. 21.6 SECONDS (11.7-14.9)
== END 2020-11-28 18:00 | disposition home or self-care (01) ==
LOC: LAB 14:55
PROVIDERS: Family Provider Nurse Practitioner; PCP Nurse Practitioner; Referring Provider Nurse Practitioner; Visit Provider Nurse Practitioner
DX: Z79.01 Long term (current) use of anticoagulants (principal)
CPT/HCPCS: 36415; 85610

== ENCOUNTER → 2020-12-13 14:31 | Outpatient (CLI) | payer MEDICARE, OTHER, SELFPAY ==
--- NOTE | 2020-12-13 14:17 | BI_ITS ---
MAMMOGRAPHY - UNILATERAL DIAGNOSTIC: RIGHT BREAST REASON FOR EXAM: Female, 70 years old. Palpable lump at the 6 o''clock position of the right breast. PERTINENT HISTORY: Non-contributory. TECHNIQUE: Digital unilateral breast efren (3D mammographic acquisition) in the CC and MLO projections. 2-D mediolateral oblique (MLO) and craniocaudad (CC) views of both breasts were obtained. CAD: Full Field Digital Mammography with Computer Added Detection was performed. COMPARISON: Comparison is made with prior examination of 03/26/2020. FINDINGS: Breast Composition: There are scattered areas of fibroglandular density. There are no dominant masses or suspicious calcifications. No other significant abnormalities are identified. There has been no significant change since the prior study. BI/DIAG MAMM W/CAD, UNILAT IMPRESSION: Stable unilateral diagnostic mammogram. With the patient''s history of a palpable lump in the right breast, correlation with ultrasound is recommended. ASSESSMENT CATEGORY: BIRADS Category 0: Incomplete. Need additional imaging evaluation. A letter regarding these results will be sent to the patient by the facility within 30 days. Approximately 10% of breast cancers are not detected by mammography. A normal mammogram should not delay biopsy of a clinically suspicious abnormality. Electronically Signed: Cole Coronado MD at 15:14 EDT , Service support ,
--- NOTE | 2020-12-13 14:17 | US_ITS ---
STUDY: ULTRASOUND BREAST - RIGHT REASON FOR EXAM: Female, 70 years old. Palpable lump in the right breast. TECHNIQUE: Axial and longitudinal images of the RIGHT breast were performed with a high resolution ultrasound transducer. # OF IMAGES: 11 COMPARISON: Comparison is made with prior mammogram done earlier today. FINDINGS: RIGHT Breast: The inferior half of the right breast was examined by ultrasound. No sonographic abnormality is seen. US/Breast Limited Unilateral IMPRESSION: No sonographic abnormality is seen. ASSESSMENT CATEGORY: BIRADS Category 1: Negative. A letter regarding these results will be sent to the patient by the facility within 30 days. Electronically Signed: Cole Coronado MD at 15:29 EDT , Service support ,
== END ==
PROVIDERS: PCP Nurse Practitioner; Referring Provider Nurse Practitioner; Visit Provider Nurse Practitioner
DX: N63.15 Unspecified lump in the right breast, overlapping quadrants (principal)
CPT/HCPCS: 76642; 77061; 77065; G0279

== ENCOUNTER 2020-12-26 13:28 | Outpatient (RCR) | payer MEDICARE, OTHER, SELFPAY ==
[2020-12-04 00:20] VITALS: BMI 21.0
[2020-12-19 12:48] LABS: International Normalized Ratio 1.8; Prothrombin Time (Protime)PT. 20.2 SECONDS (11.7-14.9)
[2020-12-26 13:50] LABS: International Normalized Ratio 2.3; Prothrombin Time (Protime)PT. 24.8 SECONDS (11.7-14.9)
== END 2020-12-26 18:00 | disposition home or self-care (01) ==
LOC: LAB 13:28
PROVIDERS: Family Provider Nurse Practitioner; PCP Nurse Practitioner; Referring Provider Nurse Practitioner; Visit Provider Nurse Practitioner
DX: D72.819 Decreased white blood cell count, unspecified (principal); Z79.01 Long term (current) use of anticoagulants
CPT/HCPCS: 36415; 85610

== ENCOUNTER 2021-01-29 11:09 | Outpatient (RCR) | payer MEDICARE, OTHER, SELFPAY ==
[2021-01-02 21:59] VITALS: BMI 21.0
[2021-01-29 11:44] LABS: Absolute Lymphocyte Count 1.55 X10^3/uL (0.83-4.51); Absolute Neutrophil Count 2.6 X10^3/uL (2.0-7.7); Basophil# 0.06 X10^3/uL; Basophil% 1.2 % (0-1); Eosinophil# 0.13 X10^3/uL; Eosinophils% 2.6 % (0-5); Hematocrit 40.8 % (37-47); Hemoglobin 13.6 g/dL (12.0-15.0); Lymphocyte # 1.55 X10^3/ul (0.83-4.51); Lymphocyte % 31.2 % (19-41); Mean Corp Hgb Conc 33.3 g/dL (32-36); Mean Corpuscular Hgb 32.5 pg (27.0-32.0); Mean Corpuscular Volume 97.4 fL (81-99); Mean Platelet Vol. 10.6 fl (6.2-12.0); Monocyte# 0.62 X10^3/uL; Monocyte% 12.5 % (0-10); NRBC Flagged by Analyzer 0 % (0-5); Neutrophil # 2.59 X10^3/uL (2.7-7.7); Neutrophil % 52.1 % (47-70); Platelet Count 230 K/mm3 (150-450); RBC Distribution Width CV 12.6 % (11.6-14.6); RBC Distribution Width SD 44.9 fl (35.1-43.9); Red Blood Count 4.19 M/mm3 (4.2-5.4)
[2021-01-29 11:54] LABS: International Normalized Ratio 2.8; Prothrombin Time (Protime)PT. 28.7 SECONDS (11.7-14.9)
== END 2021-02-02 18:00 | disposition home or self-care (01) ==
LOC: LAB 11:09
PROVIDERS: Family Provider Nurse Practitioner; PCP Nurse Practitioner; Referring Provider Nurse Practitioner; Visit Provider Nurse Practitioner
DX: D72.819 Decreased white blood cell count, unspecified (principal); Z79.01 Long term (current) use of anticoagulants
CPT/HCPCS: 36415; 85025; 85610

== ENCOUNTER 2021-02-26 09:42 | Outpatient (RCR) | payer MEDICARE, OTHER, SELFPAY ==
[2021-02-02 20:17] VITALS: BMI 21.0
[2021-02-26 10:37] LABS: Absolute Lymphocyte Count 1.21 X10^3/uL (0.83-4.51); Absolute Neutrophil Count 1.7 X10^3/uL (2.0-7.7); Basophil# 0.07 X10^3/uL; Eosinophil# 0.06 X10^3/uL; Eosinophils% 1.7 % (0-5); Hematocrit 40.7 % (37-47); Hemoglobin 14.4 g/dL (12.0-15.0); Lymphocyte # 1.21 X10^3/ul (0.83-4.51); Lymphocyte % 35.3 % (19-41); Mean Corp Hgb Conc 35.4 g/dL (32-36); Mean Corpuscular Hgb 33.6 pg (27.0-32.0); Mean Corpuscular Volume 95.1 fL (81-99); Mean Platelet Vol. 9.9 fl (6.2-12.0); Monocyte% 11.7 % (0-10); NRBC Flagged by Analyzer 0 % (0-5); Neutrophil # 1.68 X10^3/uL (2.7-7.7); Platelet Count 243 K/mm3 (150-450); RBC Distribution Width CV 12.2 % (11.6-14.6); RBC Distribution Width SD 42.6 fl (35.1-43.9); Red Blood Count 4.28 M/mm3 (4.2-5.4); White Blood Count 3.4 K/mm3 (4.4-11.0)
[2021-02-26 10:46] LABS: International Normalized Ratio 2.9; Prothrombin Time (Protime)PT. 29.6 SECONDS (11.7-14.9)
[2021-02-26 11:11] LABS: Vitamin D,25 Hydroxy 106.3 ng/mL
[2021-02-26 11:17] LABS: ALB/GLOB Ratio 1.2 RATIO (0.9-2.4); AST(SGOT) 22 U/L (15-37); Alanine Aminotransfer ALT/SGPT 33 U/L (13-56); Albumin, Serum 3.8 g/dL (3.2-5.0); Alkaline Phosphatase 83 U/L (45-117); Anion Gap 9 (5-15); BUN 16 mg/dL (7-18); BUN/Creat Ratio 20.8 RATIO (10-20); Calcium,Total 8.9 mg/dL (8.5-10.1); Chloride 103 mmol/L (98-107); Cholesterol 225 mg/dL (200); Creatinine, Serum 0.77 mg/dL (0.55-1.02); EST Glomerular Filtration Rate 78 mL/min (>60); Est Glom Filt Rate - Afr Amer 95 mL/min (>60); Globulin 3.2 g/dL (2.2-4.2); Glucose 82 mg/dL (74-106); High Density Lipoprotein 82 mg/dL; Potassium 4.1 mmol/L (3.5-5.1); Sodium Level 142 mmol/L (136-145); Triglycerides 41 mg/dL; Very Low Density Lipoprotein 8 mg/dL (5-40)
== END 2021-03-04 18:00 | disposition home or self-care (01) ==
LOC: LAB 09:42
PROVIDERS: Family Provider Nurse Practitioner; PCP Nurse Practitioner; Referring Provider Nurse Practitioner; Visit Provider Nurse Practitioner
DX: Z00.00 Encounter for general adult medical examination without abnormal findings (principal); Z79.01 Long term (current) use of anticoagulants; Z13.220 Encounter for screening for lipoid disorders; Z13.29 Encounter for screening for other suspected endocrine disorder; K76.89 Other specified diseases of liver; R53.83 Other fatigue; M81.0 Age-related osteoporosis without current pathological fracture; Z86.718 Personal history of other venous thrombosis and embolism
CPT/HCPCS: 36415; 80053; 80061; 82306; 84443; 85025; 85610

== ENCOUNTER 2021-03-25 07:26 | Outpatient (RCR) | payer MEDICARE, OTHER, SELFPAY ==
[2021-03-05 03:34] VITALS: BMI 21.0
[2021-03-24 12:12] LABS: International Normalized Ratio 2.4; Prothrombin Time (Protime)PT. 25.3 SECONDS (11.7-14.9)
== END 2021-04-05 18:00 | disposition home or self-care (01) ==
LOC: LAB 07:26
PROVIDERS: Family Provider Nurse Practitioner; PCP Nurse Practitioner; Referring Provider Nurse Practitioner; Visit Provider Nurse Practitioner
DX: Z00.00 Encounter for general adult medical examination without abnormal findings (principal); Z79.01 Long term (current) use of anticoagulants; Z13.220 Encounter for screening for lipoid disorders; Z13.29 Encounter for screening for other suspected endocrine disorder; K76.89 Other specified diseases of liver; R53.83 Other fatigue; M81.0 Age-related osteoporosis without current pathological fracture; Z86.718 Personal history of other venous thrombosis and embolism
CPT/HCPCS: 36415; 82274; 85610

== ENCOUNTER → 2021-04-03 07:11 | Outpatient (CLI) | payer MEDICARE, OTHER, SELFPAY ==
--- NOTE | 2021-04-03 07:13 | BI_ITS ---
MAMMOGRAPHY - BILATERAL SCREENING 3-D TOMOSYNTHESIS REASON FOR EXAM: Female, 70 years old. SCREENING PERTINENT HISTORY: No significant family history. TECHNIQUE: 2-D mammograms and 3-D Tomosynthesis of the breast (s) were performed. CAD was performed. COMPARISON: 03/26/2020 FINDINGS: The breast composition is composed of scattered fibroglandular density. Scattered benign calcifications are seen. No dense spiculated masses or suspicious microcalcifications are identified. No architectural distortion is identified. There is no skin thickening or retraction. There has been no significant change since the prior study. BI/SCRN MAMM (CAD)W/ONOFRE BILAT IMPRESSION: No mammographic signs of malignancy. Routine yearly mammograms recommended. ASSESSMENT CATEGORY: BIRADS Category 1: Negative. A letter regarding these results will be sent to the patient by the facility within 30 days. FOLLOW UP RECOMMENDATION: Yearly follow up mammogram recommended. (A) Approximately 10% of breast cancers are not detected by mammography. A normal mammogram should not delay biopsy of a clinically suspicious abnormality. Electronically Signed: Laith Ware MD at 9:39 EST Tel , Service support ,
== END ==
PROVIDERS: PCP Nurse Practitioner; Referring Provider Nurse Practitioner; Visit Provider Nurse Practitioner
DX: Z12.31 Encounter for screening mammogram for malignant neoplasm of breast (principal)
CPT/HCPCS: 77063; 77067

== ENCOUNTER 2021-05-01 14:36 | Outpatient (RCR) | payer MEDICARE, SELFPAY ==
[2021-04-06 04:38] VITALS: BMI 21.0
[2021-04-17 11:42] LABS: International Normalized Ratio 1.9; Prothrombin Time (Protime)PT. 21.4 SECONDS (11.7-14.9)
[2021-05-01 15:26] LABS: International Normalized Ratio 3.4; Prothrombin Time (Protime)PT. 33.2 SECONDS (11.7-14.9)
== END 2021-05-05 18:00 | disposition home or self-care (01) ==
LOC: LAB 14:36
PROVIDERS: Family Provider Nurse Practitioner; PCP Nurse Practitioner; Referring Provider Nurse Practitioner; Visit Provider Nurse Practitioner
DX: D72.819 Decreased white blood cell count, unspecified (principal); Z86.718 Personal history of other venous thrombosis and embolism
CPT/HCPCS: 36415; 85610

== ENCOUNTER 2021-05-12 07:02 | Outpatient (RCR) | payer MEDICARE, SELFPAY ==
[2021-05-06 01:27] VITALS: BMI 21.0
[2021-05-12 07:38] LABS: International Normalized Ratio 2.2; Prothrombin Time (Protime)PT. 23.7 SECONDS (11.7-14.9)
== END 2021-05-12 23:59 | disposition home or self-care (01) ==
LOC: LAB 07:02
PROVIDERS: Family Provider Nurse Practitioner; PCP Nurse Practitioner; Referring Provider Nurse Practitioner; Visit Provider Nurse Practitioner
DX: D72.819 Decreased white blood cell count, unspecified (principal); Z86.718 Personal history of other venous thrombosis and embolism
CPT/HCPCS: 36415; 85610

== ENCOUNTER 2021-07-02 15:26 | Outpatient (RCR) | payer MEDICARE, SELFPAY ==
[2021-06-03 09:52] VITALS: BMI 21.0
[2021-06-26 08:17] LABS: Prothrombin Time (Protime)PT. 12.6 SECONDS (11.7-14.9)
[2021-07-02 16:32] LABS: International Normalized Ratio 2.3; Prothrombin Time (Protime)PT. 24.1 SECONDS (11.7-14.9)
== END 2021-07-03 18:00 | disposition home or self-care (01) ==
LOC: LAB 15:26
PROVIDERS: Family Provider Nurse Practitioner; PCP Nurse Practitioner; Referring Provider Nurse Practitioner; Visit Provider Nurse Practitioner
DX: D72.819 Decreased white blood cell count, unspecified (principal); Z86.718 Personal history of other venous thrombosis and embolism
CPT/HCPCS: 36415; 85610

== ENCOUNTER 2021-07-30 14:12 | Outpatient (RCR) | payer MEDICARE, SELFPAY ==
[2021-07-04 03:24] VITALS: BMI 21.0
[2021-07-30 14:34] LABS: Hematocrit 41.2 % (37-47); Hemoglobin 14.2 g/dL (12.0-15.0); Mean Corp Hgb Conc 34.5 g/dL (32-36); Mean Corpuscular Hgb 32.8 pg (27.0-32.0); Mean Corpuscular Volume 95.2 fL (81-99); Mean Platelet Vol. 10.1 fl (6.2-12.0); Platelet Count 232 K/mm3 (150-450); RBC Distribution Width CV 12.3 % (11.6-14.6); RBC Distribution Width SD 43.5 fl (35.1-43.9); Red Blood Count 4.33 M/mm3 (4.2-5.4)
[2021-07-30 14:45] LABS: International Normalized Ratio 3.3
== END 2021-07-30 18:00 | disposition home or self-care (01) ==
LOC: LAB 14:12
PROVIDERS: Family Provider Nurse Practitioner; PCP Nurse Practitioner; Referring Provider Nurse Practitioner; Visit Provider Nurse Practitioner
DX: D72.819 Decreased white blood cell count, unspecified (principal); Z86.718 Personal history of other venous thrombosis and embolism
CPT/HCPCS: 36415; 85027; 85610

== ENCOUNTER 2021-09-02 13:17 | Outpatient (RCR) | payer MEDICARE, SELFPAY ==
[2021-08-03 03:50] VITALS: BMI 21.0
[2021-08-13 12:20] LABS: International Normalized Ratio 1.6; Prothrombin Time (Protime)PT. 18.5 SECONDS (11.7-14.9)
[2021-09-02 13:54] LABS: International Normalized Ratio 2.3; Prothrombin Time (Protime)PT. 24.9 SECONDS (11.7-14.9)
== END 2021-09-02 18:00 | disposition home or self-care (01) ==
LOC: LAB 13:17
PROVIDERS: Family Provider Nurse Practitioner; PCP Nurse Practitioner; Referring Provider Nurse Practitioner; Visit Provider Nurse Practitioner
DX: D72.819 Decreased white blood cell count, unspecified (principal); Z86.718 Personal history of other venous thrombosis and embolism
CPT/HCPCS: 36415; 85610

== ENCOUNTER 2021-10-01 15:45 | Outpatient (RCR) | payer MEDICARE, SELFPAY ==
[2021-09-02 21:03] VITALS: BMI 21.0
[2021-09-18 11:10] LABS: International Normalized Ratio 1.6; Prothrombin Time (Protime)PT. 18.5 SECONDS (11.7-14.9)
[2021-10-01 17:22] LABS: International Normalized Ratio 2.7; Prothrombin Time (Protime)PT. 28.6 SECONDS (11.7-14.9)
== END 2021-10-01 23:59 | disposition home or self-care (01) ==
LOC: LAB 15:45
PROVIDERS: Family Provider Nurse Practitioner; PCP Nurse Practitioner; Referring Provider Nurse Practitioner; Visit Provider Nurse Practitioner
DX: D72.819 Decreased white blood cell count, unspecified (principal); Z86.718 Personal history of other venous thrombosis and embolism; Z79.01 Long term (current) use of anticoagulants
CPT/HCPCS: 36415; 85610

== ENCOUNTER 2021-10-28 14:27 | Outpatient (RCR) | payer MEDICARE, SELFPAY ==
[2021-10-03 07:23] VITALS: BMI 21.0
[2021-10-08 17:07] LABS: Prothrombin Time (Protime)PT. 21.9 SECONDS (11.7-14.9)
[2021-10-28 15:29] LABS: International Normalized Ratio 2.4; Prothrombin Time (Protime)PT. 26.2 SECONDS (11.7-14.9)
== END 2021-11-02 02:49 | disposition home or self-care (01) ==
LOC: LAB 14:27
PROVIDERS: Family Provider Nurse Practitioner; PCP Nurse Practitioner Family; Referring Provider Nurse Practitioner; Visit Provider Nurse Practitioner
DX: D72.819 Decreased white blood cell count, unspecified (principal); Z79.01 Long term (current) use of anticoagulants
CPT/HCPCS: 36415; 85610

== ENCOUNTER 2021-11-19 09:35 | Outpatient (RCR) | payer MEDICARE, SELFPAY ==
[2021-11-02 02:49] VITALS: BMI 21.0
[2021-11-04 15:11] LABS: International Normalized Ratio 1.9; Prothrombin Time (Protime)PT. 21.8 SECONDS (11.7-14.9)
[2021-11-19 10:04] LABS: International Normalized Ratio 2.4; Prothrombin Time (Protime)PT. 26.1 SECONDS (11.7-14.9)
== END 2021-11-19 18:00 | disposition home or self-care (01) ==
LOC: LAB 09:35
PROVIDERS: Family Provider Nurse Practitioner; PCP Nurse Practitioner Family; Referring Provider Nurse Practitioner Family; Visit Provider Nurse Practitioner Family
DX: Z79.01 Long term (current) use of anticoagulants
CPT/HCPCS: 36415; 85610

== ENCOUNTER 2021-12-09 16:37 | Outpatient (RCR) | payer MEDICARE, SELFPAY ==
[2021-12-03 23:24] VITALS: BMI 21.0
[2021-12-09 17:42] LABS: International Normalized Ratio 2.3; Prothrombin Time (Protime)PT. 25.1 SECONDS (11.7-14.9)
== END 2021-12-09 18:00 | disposition home or self-care (01) ==
LOC: LAB 16:37
PROVIDERS: Family Provider Nurse Practitioner; PCP Nurse Practitioner Family; Referring Provider Nurse Practitioner Family; Visit Provider Nurse Practitioner Family
DX: Z79.01 Long term (current) use of anticoagulants (principal)
CPT/HCPCS: 36415; 85610

== ENCOUNTER → 2021-12-29 | Outpatient (CLI) | payer MEDICARE, SELFPAY ==
--- NOTE | 2021-12-29 11:35 | RAD_ITS ---
STUDY: X-RAY - LEFT FOOT CLINICAL: Female, 71 years old. Pain. TECHNIQUE: 3 view(s) of the foot. COMPARISON: None. FINDINGS: Osteopenia. Superior calcaneal spur. Mild arthrosis of the tibiotalar joint. Mild arthrosis of the subtalar joint. Mild arthrosis of the midfoot. Mild arthrosis of the MTP and IP joints. Minimal hallux valgus deformity with small bunion. The soft tissue structures are otherwise unremarkable. RAD/Foot min 3 Views IMPRESSION: Osteopenia, superior calcaneal spur and osteoarthritic changes. Minimal hallux valgus deformity with small bunion. No acute abnormality or erosive changes. Electronically Signed: Bradly Lr, at 13:22 EDT ,
== END | disposition home or self-care (01) ==
PROVIDERS: PCP Nurse Practitioner Family; Referring Provider Nurse Practitioner Family; Visit Provider Nurse Practitioner Family
DX: M19.072 Primary osteoarthritis, left ankle and foot (principal); M77.32 Calcaneal spur, left foot; M20.12 Hallux valgus (acquired), left foot; M85.872 Other specified disorders of bone density and structure, left ankle and foot; M21.612 Bunion of left foot
CPT/HCPCS: 73630

== ENCOUNTER 2022-01-08 12:48 | Outpatient (RCR) | payer MEDICARE, SELFPAY ==
[2022-01-02 22:01] VITALS: BMI 21.0
[2022-01-08 13:37] LABS: Absolute Lymphocyte Count 1.32 X10^3/uL (0.83-4.51); Absolute Neutrophil Count 2.6 X10^3/uL (2.0-7.7); Basophil# 0.05 X10^3/uL; Basophil% 1.1 % (0-1); Eosinophil# 0.09 X10^3/uL; Hematocrit 39.9 % (37-47); Hemoglobin 13.9 g/dL (12.0-15.0); Lymphocyte # 1.32 X10^3/ul (0.83-4.51); Lymphocyte % 29.3 % (19-41); Mean Corp Hgb Conc 34.8 g/dL (32-36); Mean Corpuscular Volume 97.6 fL (81-99); Mean Platelet Vol. 10.1 fl (6.2-12.0); Monocyte# 0.45 X10^3/uL; NRBC Flagged by Analyzer 0 % (0-5); Neutrophil % 57.6 % (47-70); Platelet Count 234 K/mm3 (150-450); RBC Distribution Width CV 12.2 % (11.6-14.6); RBC Distribution Width SD 44.1 fl (35.1-43.9); Red Blood Count 4.09 M/mm3 (4.2-5.4); White Blood Count 4.5 K/mm3 (4.4-11.0)
[2022-01-08 14:16] LABS: International Normalized Ratio 2.6; Prothrombin Time (Protime)PT. 27.8 SECONDS (11.7-14.9)
== END 2022-01-08 18:00 | disposition home or self-care (01) ==
LOC: LAB 12:48
PROVIDERS: Family Provider Nurse Practitioner; PCP Nurse Practitioner Family; Referring Provider Nurse Practitioner Family; Visit Provider Nurse Practitioner Family
DX: Z79.01 Long term (current) use of anticoagulants (principal)
CPT/HCPCS: 36415; 85025; 85610

== ENCOUNTER 2022-02-09 12:50 | Outpatient (RCR) | payer MEDICARE, SELFPAY ==
[2022-02-03 10:32] VITALS: BMI 21.0
[2022-02-09 13:32] LABS: International Normalized Ratio 2.3; Prothrombin Time (Protime)PT. 24.7 SECONDS (11.7-14.9)
== END 2022-03-04 18:00 | disposition home or self-care (01) ==
LOC: LAB 12:50
PROVIDERS: Family Provider Nurse Practitioner; PCP Nurse Practitioner Family; Referring Provider Nurse Practitioner Family; Visit Provider Nurse Practitioner Family
DX: Z79.01 Long term (current) use of anticoagulants (principal)
CPT/HCPCS: 36415; 85610

== ENCOUNTER 2022-04-23 09:16 | Outpatient (RCR) | payer MEDICARE, SELFPAY ==
[2022-03-05 00:36] VITALS: BMI 21.0
[2022-04-23 10:14] LABS: International Normalized Ratio 4.4; Prothrombin Time (Protime)PT. 41.9 SECONDS (11.7-14.9)
[2022-04-23 11:29] LABS: Hepatitis C Antibody Non-Reactive (Nonreactive)
== END 2022-04-23 18:00 | disposition home or self-care (01) ==
LOC: LAB 09:16
PROVIDERS: Family Provider Nurse Practitioner; PCP Nurse Practitioner Family; Referring Provider Nurse Practitioner Family; Visit Provider Nurse Practitioner Family
DX: Z79.01 Long term (current) use of anticoagulants (principal); Z11.59 Encounter for screening for other viral diseases
CPT/HCPCS: 36415; 85610; 86803

== ENCOUNTER 2022-05-20 06:22 | Outpatient (RCR) | payer MEDICARE, SELFPAY ==
[2022-05-06 08:36] VITALS: BMI 21.0
[2022-05-06 09:51] LABS: Absolute Lymphocyte Count 0.96 X10^3/uL (0.83-4.51); Basophil# 0.05 X10^3/uL; Basophil% 1.5 % (0-1); Eosinophil# 0.03 X10^3/uL; Eosinophils% 0.9 % (0-5); Hematocrit 38.9 % (37-47); Hemoglobin 13.7 g/dL (12.0-15.0); Lymphocyte # 0.96 X10^3/ul (0.83-4.51); Lymphocyte % 28.3 % (19-41); Mean Corp Hgb Conc 35.2 g/dL (32-36); Mean Corpuscular Hgb 33.7 pg (27.0-32.0); Mean Corpuscular Volume 95.6 fL (81-99); Mean Platelet Vol. 9.7 fl (6.2-12.0); Monocyte# 0.35 X10^3/uL; Monocyte% 10.3 % (0-10); NRBC Flagged by Analyzer 0 % (0-5); Neutrophil # 1.99 X10^3/uL (2.7-7.7); Neutrophil % 58.7 % (47-70); Platelet Count 219 K/mm3 (150-450); RBC Distribution Width CV 12.1 % (11.6-14.6); RBC Distribution Width SD 42.5 fl (35.1-43.9); Red Blood Count 4.07 M/mm3 (4.2-5.4); White Blood Count 3.4 K/mm3 (4.4-11.0)
[2022-05-06 10:05] LABS: International Normalized Ratio 4.2
[2022-05-06 10:11] LABS: Prothrombin Time (Protime)PT. 40.3 SECONDS (11.7-14.9)
[2022-05-06 10:28] LABS: Vitamin B12 > 2000 pg/mL (211-911); Vitamin D,25 Hydroxy 88.8 ng/mL
[2022-05-06 10:45] LABS: ALB/GLOB Ratio 1.3 RATIO (0.9-2.4); AST(SGOT) 18 U/L (15-37); Alanine Aminotransfer ALT/SGPT 23 U/L (13-56); Albumin, Serum 3.8 g/dL (3.2-5.0); Alkaline Phosphatase 79 U/L (45-117); Anion Gap 8 (5-15); BUN 18 mg/dL (7-18); BUN/Creat Ratio 25.8 RATIO (10-20); Calcium,Total 8.6 mg/dL (8.5-10.1); Chloride 106 mmol/L (98-107); Cholesterol 223 mg/dL (200); EST Glomerular Filtration Rate 88 mL/min (>60); Est Glom Filt Rate - Afr Amer 106 mL/min (>60); Globulin 2.9 g/dL (2.2-4.2); Glucose 87 mg/dL (74-106); High Density Lipoprotein 78 mg/dL; Protein, Total 6.7 g/dL (6.4-8.2); Sodium Level 143 mmol/L (136-145); Triglycerides 47 mg/dL; Very Low Density Lipoprotein 9 mg/dL (5-40)
[2022-05-13 11:24] LABS: International Normalized Ratio 3.8; Prothrombin Time (Protime)PT. 37.4 SECONDS (11.7-14.9)
[2022-05-20 08:36] LABS: International Normalized Ratio 2.6; Prothrombin Time (Protime)PT. 27.7 SECONDS (11.7-14.9)
== END 2022-05-20 18:00 | disposition home or self-care (01) ==
LOC: LAB 06:22
PROVIDERS: Family Provider Nurse Practitioner; PCP Nurse Practitioner Family; Referring Provider Nurse Practitioner Family; Visit Provider Nurse Practitioner Family
DX: Z79.01 Long term (current) use of anticoagulants (principal); D72.819 Decreased white blood cell count, unspecified; R79.89 Other specified abnormal findings of blood chemistry; E78.5 Hyperlipidemia, unspecified; R74.8 Abnormal levels of other serum enzymes; E67.3 Hypervitaminosis D
CPT/HCPCS: 36415; 80053; 80061; 82306; 82607; 82746; 85025; 85610

== ENCOUNTER 2022-05-20 12:13 | Emergency (ER) | payer MEDICARE, SELFPAY ==
[2022-05-20 12:13] VITALS: BP 162/89; PULSE 91; RESP 16; TEMP 36.1; O2SAT 100; BMI 21.7
--- NOTE | 2022-05-20 12:19 | VDLE_ITS ---
Reason For Study: LEG SWELLING RIGHT LEFT CFV is compressible, spontaneous, phasic, GSV is normal. competent and demonstrates normal CFV is compressible, spontaneous, phasic, augmentation. competent, and demonstrates normal Procedure augmentation. This is a venous duplex using B-mode, color FV is compressible, spontaneous, phasic, flow and spectral Doppler. competent and demonstrates normal Exam performed portable in ED. augmentation. The exam was diagnostic. POP V is compressible, spontaneous, phasic, A preliminary report was called and/or faxed competent and demonstrates normal to [facility] ED RN. augmentation. T/P Trunk is compressible. PTV is compressible. LT PerV is compressible. VL/Venous Duplex US, Unilateral Interpretation Summary There is no evidence of left lower extremity deep vein thrombosis. Left great s aphenous vein appears patent and compressible segmentally. Normal flow patterns right common femoral vein Ordering Physician: Scar Partida Referring Physician: Corrina Pelayo Performed By: Tyler La RVT
--- NOTE | 2022-05-20 12:26 | ED.VIS.LOWEX ---
HPI History of Present Illness HPI Narrative: Left lower leg primarily foot swelling. History of DVTs. Would like that evaluated. 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 Currently on Coumadin which is therapeutic. In December had a stress fracture of her left foot. Was nonweightbearing and now is weightbearing. She states she has been using a lot more. Has noticed swelling in her left foot. She is concerned she may have developed a new blood clot. She denies any chest pain or shortness of breath. Prior similar symptoms: Yes Recent Illness/Hospitalization: No PFSH PFS Medical History Benign essential hypertension Factor II deficiency Hx of blood clots Home Medications L.acidoph, paracasei,B. lactis 10 billion cell capsule 1 ea PO DAILY 11/21/14 [History Last Taken Unknown] acyclovir 800 mg tablet 800 mg PO DAILY 11/21/14 [History Last Taken Unknown] ascorbic acid (vitamin C) 500 mg tablet 3,000 mg PO QHS 11/21/14 [History Last Taken Unknown] cholecalciferol (vitamin D3) 250 mcg (10,000 unit) tablet 10,000 unit PO DAILY 11/21/14 [History Last Taken Unknown] magnesium 200 mg tablet 400 mg PO BID 11/21/14 [History Last Taken Unknown] warfarin 7.5 mg tablet 5 mg PO SUMOTUWEFRSA 11/21/14 [History Last Taken 09/14/18] warfarin 7.5 mg tablet 7.5 mg PO TH 11/21/14 [History Last Taken 09/15/18] oregano oil 1,500 mg capsule 1 cap PO BID 09/16/18 [History Last Taken Unknown] calcium carbonate 600 mg calcium (1,500 mg) tablet 1,200 mg PO DAILY 09/21/18 [History Last Taken Unknown] Allergy/AdvReac Type Severity Reaction Status Date / Time No Known Allergies Allergy Verified 09/21/18 10:42 Family History Father Hypertension Heart disease Mother Thyroid disorder Surgical History S/P appendectomy S/P exploratory laparotomy S/P tubal ligation Social History Smoking Status: Never smoker alcohol intake: current alcohol intake frequency: holidays/special occasions only ROS ROS ED ROS Narrative Denies recent illness. Review of Systems ROS Unobtainable: Denies due to encephalopathy Constitutional Constitutional ED: Denies chills or fever(s) Eyes Eyes: Denies blurry vision ENT ENT ED: Denies ear pain Cardiovascular Cardiovascular: Denies chest pain Respiratory/Chest Respiratory/Chest: Denies cough Gastrointestinal Gastrointestinal: Denies abdominal pain Genitourinary Genitourinary ED: Denies dysuria or hematuria Musculoskeletal Musculoskeletal: Denies arthralgias Integumentary Denies abscess Neurologic Neurologic: Denies headache(s) Psychiatric Psychiatric: Denies anxiety Hematologic/Lymphatic Hematologic/Lymphatic: Denies easy bleeding Allergic/Immunologic Allergic/Immunologic ED: Denies mouth swelling or tongue swelling EXAM Physical Exam Narrative Exam Narrative: 71-year-old female no acute distress. Vital signs stable afebrile. Pulse ox 100% on room air no signs hypoxia. HEENT exam unremarkable. Lungs clear to auscultation bilaterally. Heart regular rhythm rate about 90 no murmur. Chest wall nontender. Abdomen soft nontender. Moving all 4 extremities. Minimal swelling to her left foot. Normal DP pulse. Calf nontender nonswollen. No cord. Thigh nontender nonswollen. No inguinal lymphadenopathy. Normal range of motion. Neurovascular intact. Const Vital Signs: 05/20/22 12:13 Temperature 97.0 F L Temperature Source Temporal Pulse Rate 91 Respiratory Rate 16 Blood Pressure 162/89 H Blood Pressure Mean 113 Pulse Ox 100 Oxygen Delivery Method Room Air Positive well nourished and well developed; Negative for obese, cachectic, contractures or unkempt General Appearance ED: well developed and NAD; Negative for unkempt, cachectic or contractures Nutritional Appearance: Negative for cachectic or obese HEENT Reports moist mucous membranes normocephalic and atraumatic; Negative for trauma or tenderness Eyes PERRL General Eye ED: Negative for other Neck full ROM and supple Thyroid: Negative for tender Lymph Lymphatic: Negative for other Chest Wall inspection of chest normal and palpation of chest normal Chest: Negative for other Resp normal respiratory effort, no retractions and clear to auscultation bilaterally Effort and Inspection: Negative for pain with movement Auscultation: Negative for rales, rhonchi or wheezes Cardio regular rate, regular rhythm, S1 normal heart sound, S2 normal heart sound and no murmurs GI non-tender, non-distended and no masses Inspection: Negative for abdominal distention Auscultation: normoactive bowel sounds Palpation: soft; Negative for tender or guarding Extremity normal to inspection and full ROM Extremity Narrative: Except very mild swelling left foot. Neurovascular intact. Normal DP pulse. Normal cap refill and touch sensation. Left calf is nontender. Nonswollen. No cord. General Extremety ED: Yes edema; Negative for cyanosis General Extremity: edema; Negative for cyanosis Neuro oriented x3, CN's II-XII intact bilaterally and moves all extremities Sensorium / Orientation: alert, oriented to person, oriented to place and oriented to time; Negative for orientation impaired, confused, lethargic or stuporous Motor Exam: strength 5/5 throughout Psych mental status grossly normal Appearance: Negative for unkempt Speech: No other Mood & Affect: Negative for anxious Skin no wounds Lesions: no lesions Rashes: no rashes Trauma: Negative for abrasion or laceration MDM MDM MDM Narrative Medical decision making narrative: 71-year-old female history of blood clots and factor II deficiency. On Coumadin. Has swelling in her left foot. She has been nonweightbearing and being treated for a stress fracture. She is concerned she has developed a new DVT and wants that evaluated. Noninvasive studies being obtained. Patient doing well at 1:17 PM. She and I discussed her test results. She will be discharged home. Continue her current medications. Lab Data Lab results narrative: Noninvasive study of the left lower extremity showed no DVT per the operating theatre technician. Discharge Plan Triage Chief Complaint: Lower Extremity Injury ED Provider: Scar Partida Dx/Rx/DC Orders Clinical Impression: Foot swelling, History of deep vein thrombosis, Chronic anticoagulation Prescriptions: No Action oregano oil 1,500 mg capsule 1 cap PO BID warfarin 7.5 MG tablet 5 mg PO SUMOTUWEFRSA Label Comments: ALTERNATING WITH 7MG QOD warfarin 7.5 MG tablet 7.5 mg PO TH acyclovir 800 MG tablet 800 mg PO DAILY Label Comments: EVIN-ARREDONDO HERPES COLD SORES ascorbic acid (vitamin C) 500 MG tablet 3,000 mg PO QHS magnesium 200 MG tablet 400 mg PO BID Label Comments: NEUROLOGICAL LYMES DISEASE cholecalciferol (vitamin D3) 10,000 UNIT tablet 10,000 unit PO DAILY Label Comments: ALTERNATES, QOD WITH 5,000 UNITS L.acidoph, paracasei,B. lactis 1 EACH capsule 1 ea PO DAILY calcium carbonate 600 MG tablet 1,200 mg PO DAILY Primary Care Provider: Corrina Pelayo Referrals: Corrina Pelayo, [facility] [Primary Care Provider] - As Needed Activity Restrictions/Additional Instructions: Ice and elevate your leg and foot. Follow-up with your primary care provider as needed. Disposition Disposition: Home, Self Care
== END 2022-05-20 13:25 | disposition home or self-care (01) ==
PROVIDERS: Emergency Provider Emergency Medicine; PCP Nurse Practitioner Family; Visit Provider Emergency Medicine
DX: M79.89 Other specified soft tissue disorders (principal); E67.3 Hypervitaminosis D; R79.89 Other specified abnormal findings of blood chemistry; D72.819 Decreased white blood cell count, unspecified; E78.5 Hyperlipidemia, unspecified; Z79.01 Long term (current) use of anticoagulants; Z86.718 Personal history of other venous thrombosis and embolism
CPT/HCPCS: 36415; 85610; 93971; 99282

== ENCOUNTER 2022-06-03 06:03 | Outpatient (RCR) | payer MEDICARE, SELFPAY ==
[2022-06-02 22:31] VITALS: BMI 21.0
[2022-06-03 08:41] LABS: International Normalized Ratio 1.2; Prothrombin Time (Protime)PT. 14.8 SECONDS (11.7-14.9)
== END 2022-07-03 23:15 | disposition home or self-care (01) ==
LOC: LAB 06:03
PROVIDERS: Family Provider Nurse Practitioner; PCP Nurse Practitioner Family; Referring Provider Nurse Practitioner Family; Visit Provider Nurse Practitioner Family
DX: Z79.01 Long term (current) use of anticoagulants
CPT/HCPCS: 36415; 85610

== ENCOUNTER 2022-07-17 06:03 | Outpatient (RCR) | payer MEDICARE, SELFPAY ==
[2022-07-03 23:15] VITALS: BMI 21.0
[2022-07-08 11:32] LABS: International Normalized Ratio 1.6; Prothrombin Time (Protime)PT. 18.9 SECONDS (11.7-14.9)
[2022-07-17 06:57] LABS: International Normalized Ratio 2.1; Prothrombin Time (Protime)PT. 22.8 SECONDS (11.7-14.9)
== END 2022-08-02 02:06 | disposition home or self-care (01) ==
LOC: LAB 06:03
PROVIDERS: Family Provider Nurse Practitioner; PCP Nurse Practitioner Family; Referring Provider Nurse Practitioner Family; Visit Provider Nurse Practitioner Family
DX: Z79.01 Long term (current) use of anticoagulants (principal)
CPT/HCPCS: 36415; 85610

== ENCOUNTER → 2022-07-30 | Outpatient (CLI) | payer MEDICARE, SELFPAY ==
--- NOTE | 2022-07-30 14:51 | BI_ITS ---
MAMMOGRAPHY - BILATERAL SCREENING REASON FOR EXAM: Female, 71 years old. Routine annual screening examination. PERTINENT HISTORY: Non-contributory. TECHNIQUE: Digital bilateral breast onofre (3D mammographic acquisition) in the CC and MLO projections. 2-D mediolateral oblique (MLO) and craniocaudad (CC) views of both breasts were obtained. CAD: Full Field Digital Mammography with Computer Added Detection was performed. COMPARISON: Comparison is made with prior study April 03, 2021 and December 13, 2020. FINDINGS: Breast Composition: There are scattered areas of fibroglandular density. There are no dominant masses or suspicious calcifications. Stable bilateral secretory calcification. No other significant abnormalities are identified. There has been no significant change since the prior study. BI/SCRN MAMM (CAD)W/ONOFRE BILAT IMPRESSION: Stable bilateral screening mammogram. Yearly follow-up mammogram recommended. (A) ASSESSMENT CATEGORY: BIRADS Category 2: Benign. A letter regarding these results will be sent to the patient by the facility within 30 days. Approximately 10% of breast cancers are not detected by mammography. A normal mammogram should not delay biopsy of a clinically suspicious abnormality. [id number] Electronically Signed: Cole Coronado MD at 15:30 EDT ,
--- NOTE | 2022-07-30 15:05 | BD_ITS ---
STUDY: DUAL ENERGY X-RAY ABSORPTIOMETRY / DXA REASON FOR EXAM: Female, 71 years old. 733.00OsteoporosisBONE DENSITY REASON FOR EXAM TECHNIQUE: Bone Mineral Density (BMD) measurements of lumbar spine and bilateral hips were obtained. COMPARISON: Comparison is made with prior examination of December 23, 2017. FINDINGS: Lumbar Spine (L1-L4): g/cm2 (0.840) / T-score (-1.9) / Z-score (0.4) Findings are suggestive of osteopenia with a moderate fracture risk. Left Femur Total: g/cm2 (0.535) / T-score (-3.3) / Z-score (-1.7) Left Femoral Neck: g/cm2 (0.441) / T-score (-3.7) / Z-score (-1.7) Right Femur Total: g/cm2 (0.580) / T-score (-3.0) / Z-score (-1.3) Right Femoral Neck: g/cm2 (0.558) / T-score (-2.6) / Z-score (-0.7) The T-Scores on the most recent prior examination were: Lumbar Spine (L1-L4): There has been improvement of bone density since the previous examination. Left Femur Total: which represents a worsening of 6.2%. Right Femur Total: which represents a worsening of 7.2%. BD/Dexa Bone Density Study IMPRESSION: The patient is considered osteoporotic as outlined below according to World [place] Organization (WHO) criteria with a high fracture risk. There has been worsening of bone density since the previous examination. Reference Information: The T-score is the number of standard deviations above or below the standard which is normal for young adults at their peak bone mineral density. The World Health Organization (WHO) interprets the T-scores as follows: Above -1 Normal bone density Between -1 and -2.5 Osteopenia Equal to / or below -2.5 Osteoporosis As a practical clinical guideline, osteopenia may be graded as follows: Mild -1 through -1.5 Moderate -1.6 through -2.0 Severe -2.1 through -2.4 The Z-score is the number of standard deviations above or below age-matched controls. A Z-score of less than -1.5 would be considered abnormal. References: 1. NIH Osteoporosis and Related Bone Diseases www osteo.org 2. International Society for Clinical Densitometry www iscd.org 3. National Osteoporosis Foundation www nof.org Electronically Signed: Cole Coronado MD at 15:08 EDT ,
== END | disposition home or self-care (01) ==
LOC: OPBD 14:49
PROVIDERS: PCP Nurse Practitioner Family; Referring Provider Nurse Practitioner Family; Visit Provider Nurse Practitioner Family
DX: M81.0 Age-related osteoporosis without current pathological fracture (principal); Z12.31 Encounter for screening mammogram for malignant neoplasm of breast
CPT/HCPCS: 77063; 77067; 77080

== ENCOUNTER 2022-08-24 09:46 | Outpatient (RCR) | payer MEDICARE, SELFPAY ==
[2022-08-02 02:06] VITALS: BMI 21.0
[2022-08-11 10:41] LABS: International Normalized Ratio 2.3; Prothrombin Time (Protime)PT. 25.9 SECONDS (11.7-14.9)
[2022-08-24 11:17] LABS: International Normalized Ratio 2.5; Prothrombin Time (Protime)PT. 26.9 SECONDS (11.7-14.9)
== END 2022-08-24 11:00 | disposition home or self-care (01) ==
LOC: LAB 09:46
PROVIDERS: Family Provider Nurse Practitioner; PCP Nurse Practitioner Family; Referring Provider Nurse Practitioner Family; Visit Provider Nurse Practitioner Family
DX: Z79.01 Long term (current) use of anticoagulants (principal); D72.819 Decreased white blood cell count, unspecified; Z86.718 Personal history of other venous thrombosis and embolism
CPT/HCPCS: 36415; 85610

== ENCOUNTER 2022-09-24 13:21 | Outpatient (RCR) | payer MEDICARE, SELFPAY ==
[2022-09-03 08:16] VITALS: BMI 21.0
[2022-09-24 13:58] LABS: International Normalized Ratio 2.5; Prothrombin Time (Protime)PT. 27.5 SECONDS (11.7-14.9)
== END 2022-09-24 18:00 | disposition home or self-care (01) ==
LOC: LAB 13:21
PROVIDERS: Family Provider Nurse Practitioner; PCP Nurse Practitioner Family; Referring Provider Nurse Practitioner Family; Visit Provider Nurse Practitioner Family
DX: Z79.01 Long term (current) use of anticoagulants (principal); D72.819 Decreased white blood cell count, unspecified
CPT/HCPCS: 36415; 85610

== ENCOUNTER 2022-10-20 12:00 | Outpatient (RCR) | payer MEDICARE, SELFPAY ==
[2022-10-02 22:37] VITALS: BMI 21.0
[2022-10-20 12:55] LABS: International Normalized Ratio 1.8
== END 2022-11-02 18:00 | disposition home or self-care (01) ==
LOC: LAB 12:00
PROVIDERS: Family Provider Nurse Practitioner; PCP Nurse Practitioner Family; Referring Provider Nurse Practitioner Family; Visit Provider Nurse Practitioner Family
DX: Z79.01 Long term (current) use of anticoagulants (principal); D72.819 Decreased white blood cell count, unspecified
CPT/HCPCS: 36415; 85610

== ENCOUNTER 2022-12-01 15:23 | Outpatient (RCR) | payer MEDICARE, SELFPAY ==
[2022-11-03 00:55] VITALS: BMI 21.0
[2022-11-17 11:05] LABS: International Normalized Ratio 1.7; Prothrombin Time (Protime)PT. 19.9 SECONDS (11.7-14.9)
[2022-11-25 09:01] LABS: International Normalized Ratio 1.5; Prothrombin Time (Protime)PT. 17.7 SECONDS (11.7-14.9)
[2022-12-01 16:42] LABS: International Normalized Ratio 2.7; Prothrombin Time (Protime)PT. 29.1 SECONDS (11.7-14.9)
== END 2022-12-01 18:00 | disposition home or self-care (01) ==
LOC: LAB 15:23
PROVIDERS: Family Provider Nurse Practitioner; PCP Nurse Practitioner Family; Referring Provider Nurse Practitioner Family; Visit Provider Nurse Practitioner Family
DX: Z79.01 Long term (current) use of anticoagulants (principal); Z86.718 Personal history of other venous thrombosis and embolism
CPT/HCPCS: 36415; 85610

== ENCOUNTER 2022-12-09 10:24 | Outpatient (RCR) | payer MEDICARE, SELFPAY ==
[2022-12-03 23:08] VITALS: BMI 21.0
[2022-12-09 11:29] LABS: International Normalized Ratio 2.8; Prothrombin Time (Protime)PT. 29.8 SECONDS (11.7-14.9)
== END 2022-12-09 18:00 | disposition home or self-care (01) ==
LOC: LAB 10:24
PROVIDERS: Family Provider Nurse Practitioner; PCP Nurse Practitioner Family; Referring Provider Nurse Practitioner Family; Visit Provider Nurse Practitioner Family
DX: Z86.718 Personal history of other venous thrombosis and embolism
CPT/HCPCS: 36415; 85610

== ENCOUNTER → 2022-12-21 | Outpatient (CLI) | payer MEDICARE, SELFPAY ==
--- NOTE | 2022-12-21 09:50 | RAD_ITS ---
STUDY: X-RAY CHEST REASON FOR EXAM: Female, 72 years old. Chest tightness and chest discomfort. TECHNIQUE: PA and lateral views of the chest. COMPARISON: Comparison is made with prior study November 06, 2010. FINDINGS: There is hyperinflation of the lungs consistent with chronic obstructive lung disease (COPD). There is no demonstrated pleural abnormality. Normal size heart. Normal mediastinum and jeanna. Normal visualized pulmonary arteries. There is atherosclerotic calcification of the aortic arch with tortuosity. There is demineralization of the osseous structures. Normal visualized ribs, clavicles, and shoulders. There is no demonstrated abnormality of the visualized soft tissue structures of the upper abdomen. RAD/Chest PA and Lateral IMPRESSION: Hyperinflation. No acute abnormality is seen. Electronically Signed: Cole Coronado MD at 10:48 EDT ,
[2022-12-21 12:20] LABS: Absolute Lymphocyte Count 1.21 X10^3/uL (0.83-4.51); Basophil# 0.08 X10^3/uL; Basophil% 2.2 % (0-1); Eosinophil# 0.04 X10^3/uL; Eosinophils% 1.1 % (0-5); Hematocrit 42.6 % (37-47); Hemoglobin 14.6 g/dL (12.0-15.0); Lymphocyte # 1.21 X10^3/ul (0.83-4.51); Lymphocyte % 33.4 % (19-41); Mean Corp Hgb Conc 34.3 g/dL (32-36); Mean Corpuscular Hgb 33.3 pg (27.0-32.0); Mean Platelet Vol. 9.9 fl (6.2-12.0); Monocyte# 0.33 X10^3/uL; Monocyte% 9.1 % (0-10); NRBC Flagged by Analyzer 0 % (0-5); Neutrophil # 1.96 X10^3/uL (2.7-7.7); Neutrophil % 54.2 % (47-70); Platelet Count 240 K/mm3 (150-450); RBC Distribution Width CV 12.1 % (11.6-14.6); RBC Distribution Width SD 43.7 fl (35.1-43.9); Red Blood Count 4.39 M/mm3 (4.2-5.4); White Blood Count 3.6 K/mm3 (4.4-11.0)
[2022-12-21 12:31] LABS: D-Dimer Quantitative (DVT/PE) < 0.27 FEU/ug/m (0.27-0.49)
[2022-12-21 12:48] LABS: Anion Gap 4 (5-15); BUN 16 mg/dL (7-18); BUN/Creat Ratio 22.6 RATIO (10-20); CRP < 2.90 mg/L (0.0-3.0); Chloride 107 mmol/L (98-107); Creatinine, Serum 0.71 mg/dL (0.55-1.02); EST Glomerular Filtration Rate 86 mL/min (>60); Est Glom Filt Rate - Afr Amer 104 mL/min (>60); Glucose 107 mg/dL (74-106); Sodium Level 141 mmol/L (136-145); Troponin-I HS 6 pg/mL (3.0-54.0)
== END | disposition home or self-care (01) ==
LOC: MTLAB 09:44
PROVIDERS: PCP Nurse Practitioner Family; Referring Provider Nurse Practitioner Family; Visit Provider Nurse Practitioner Family
DX: R07.89 Other chest pain (principal)
CPT/HCPCS: 36415; 71046; 80048; 84484; 85025; 85379; 86140

== ENCOUNTER → 2023-01-05 | Outpatient (CLI) | payer MEDICARE, SELFPAY ==
--- NOTE | 2023-01-05 18:25 | STRESSREP_ITS ---
Stress Test Report Exercise myocardial perfusion stress test. 72-year-old lady with a history of chest pain and dyspnea Stress protocol: Resting EKG demonstrates normal sinus rhythm with a rate of 69 bpm resting blood pressure is 144/82 mmHg. The patient exercised according to the regular John protocol for a total duration of 6 minutes and 31 seconds attaining a maximum heart rate of 139 bpm which was 94% of maximum predicted heart rate; the maximum workload was 8.5 metabolic equivalents. At rest there were no ST or T wave changes noted to suggest ischemia and at peak exercise upsloping ST changes only were noted which did not meet the criteria for ischemia. No clinical angina was noted the test was terminated due to the target heart rate being ac hieved/fatigue. The peak blood pressure was 158/72 mmHg. Rate-pressure product was 20,700. Myocardial perfusion protocol. 11.6 mCi of technetium 99m sestamibi was injected at rest. The patient exe rcised according to regular John protocol for total duration of 6 minutes and 31 seconds and at peak exercise 33.3 mCi of technetium 99m sestamibi was injected stress images were obtained stress and rest images were reconstructed in comparing the short axis vertical long and horizontal long axis. Gated images were also obtained. Perfusion SPECT analysis: Review of the stress images demonstrate normal uptake of tracer noted in all areas of the myocardium. The resting images similarly demonstrate normal uptake of tracer noted in all areas of the myocardium. No areas of reversibility are noted to suggest ischemia no previous infarct was noted. Gated SPECT analysis: The gated ejection fraction is over 80%. Conclusion: Normal exercise myocardial perfusion stress test at a moderate workload Preserved ejection fraction.
== END | disposition home or self-care (01) ==
PROVIDERS: PCP Nurse Practitioner Family; Referring Provider Nurse Practitioner Family; Visit Provider Nurse Practitioner Family
DX: R07.89 Other chest pain (principal)
CPT/HCPCS: 78452; 93017; A9500; A4216

== ENCOUNTER 2023-02-02 10:13 | Outpatient (RCR) | payer MEDICARE, SELFPAY ==
[2023-01-03 04:08] VITALS: BMI 21.0
[2023-01-04 15:38] LABS: International Normalized Ratio 2.6; Prothrombin Time (Protime)PT. 28.1 SECONDS (11.7-14.9)
[2023-01-19 12:59] LABS: International Normalized Ratio 2.3; Prothrombin Time (Protime)PT. 25.6 SECONDS (11.7-14.9)
[2023-02-02 11:53] LABS: International Normalized Ratio 3.2; Prothrombin Time (Protime)PT. 33.3 SECONDS (11.7-14.9)
== END 2023-02-02 18:00 | disposition home or self-care (01) ==
LOC: LAB 10:13
PROVIDERS: Family Provider Nurse Practitioner; PCP Nurse Practitioner Family; Referring Provider Nurse Practitioner Family; Visit Provider Nurse Practitioner Family
DX: Z86.718 Personal history of other venous thrombosis and embolism (principal)
CPT/HCPCS: 36415; 85610

== ENCOUNTER 2023-03-04 08:09 | Outpatient (RCR) | payer MEDICARE, SELFPAY ==
[2023-02-02 22:29] VITALS: BMI 21.0
[2023-02-17 07:22] LABS: International Normalized Ratio 3.2; Prothrombin Time (Protime)PT. 32.9 SECONDS (11.7-14.9)
[2023-02-23 12:34] LABS: Prothrombin Time (Protime)PT. 31.4 SECONDS (11.7-14.9)
[2023-03-04 10:12] LABS: Absolute Lymphocyte Count 0.72 X10^3/uL (0.83-4.51); Absolute Neutrophil Count 6.3 X10^3/uL (2.0-7.7); Basophil# 0.04 X10^3/uL; Basophil% 0.5 % (0-1); Eosinophil# 0.04 X10^3/uL; Eosinophils% 0.5 % (0-5); Lymphocyte # 0.72 X10^3/ul (0.83-4.51); Lymphocyte % 9.2 % (19-41); Mean Corp Hgb Conc 34.2 g/dL (32-36); Mean Corpuscular Hgb 33.2 pg (27.0-32.0); Mean Corpuscular Volume 97.2 fL (81-99); Mean Platelet Vol. 10.1 fl (6.2-12.0); Monocyte# 0.73 X10^3/uL; Monocyte% 9.3 % (0-10); NRBC Flagged by Analyzer 0 % (0-5); Neutrophil # 6.26 X10^3/uL (2.7-7.7); Neutrophil % 80.2 % (47-70); Platelet Count 241 K/mm3 (150-450); RBC Distribution Width CV 12.7 % (11.6-14.6); RBC Distribution Width SD 45.3 fl (35.1-43.9); Red Blood Count 3.91 M/mm3 (4.2-5.4); White Blood Count 7.8 K/mm3 (4.4-11.0)
[2023-03-04 10:20] LABS: International Normalized Ratio 3.3
== END 2023-03-04 18:00 | disposition home or self-care (01) ==
LOC: MTLAB 08:09
PROVIDERS: Internal Medicine; Family Provider Nurse Practitioner; PCP Nurse Practitioner Family; Referring Provider Nurse Practitioner Family; Visit Provider Nurse Practitioner Family
DX: Z86.718 Personal history of other venous thrombosis and embolism (principal)
CPT/HCPCS: 36415; 85025; 85610

== ENCOUNTER 2023-03-30 06:41 | Outpatient (RCR) | payer MEDICARE, SELFPAY ==
[2023-03-05 04:26] VITALS: BMI 21.0
[2023-03-08 16:53] LABS: Prothrombin Time (Protime)PT. 42.9 SECONDS (11.7-14.9)
[2023-03-08 17:01] LABS: International Normalized Ratio 4.4
[2023-03-10 12:49] LABS: International Normalized Ratio 3.1; Prothrombin Time (Protime)PT. 31.9 SECONDS (11.7-14.9)
[2023-03-12 09:20] LABS: International Normalized Ratio 3.2; Prothrombin Time (Protime)PT. 33.4 SECONDS (11.7-14.9)
[2023-03-15 07:22] LABS: International Normalized Ratio 3.5; Prothrombin Time (Protime)PT. 35.6 SECONDS (11.7-14.9)
[2023-03-18 09:48] LABS: International Normalized Ratio 2.9; Prothrombin Time (Protime)PT. 31.1 SECONDS (11.7-14.9)
[2023-03-24 12:14] LABS: International Normalized Ratio 3.6; Prothrombin Time (Protime)PT. 36.4 SECONDS (11.7-14.9)
[2023-03-30 08:38] LABS: International Normalized Ratio 1.5; Prothrombin Time (Protime)PT. 17.9 SECONDS (11.7-14.9)
== END 2023-04-04 18:00 | disposition home or self-care (01) ==
LOC: LAB 06:41
PROVIDERS: Family Provider Nurse Practitioner; PCP Nurse Practitioner Family; Referring Provider Nurse Practitioner Family; Visit Provider Nurse Practitioner Family
DX: Z86.718 Personal history of other venous thrombosis and embolism (principal)
CPT/HCPCS: 36415; 85610

== ENCOUNTER 2023-05-04 14:34 | Outpatient (RCR) | payer MEDICARE, SELFPAY ==
[2023-04-04 21:37] VITALS: BMI 21.0
[2023-04-13 07:43] LABS: International Normalized Ratio 1.9; Prothrombin Time (Protime)PT. 21.8 SECONDS (11.7-14.9)
[2023-04-20 08:58] LABS: International Normalized Ratio 1.8; Prothrombin Time (Protime)PT. 20.9 SECONDS (11.7-14.9)
[2023-04-27 14:05] LABS: International Normalized Ratio 2.6; Prothrombin Time (Protime)PT. 27.8 SECONDS (11.7-14.9)
[2023-05-04 15:50] LABS: International Normalized Ratio 2.6; Prothrombin Time (Protime)PT. 28.3 SECONDS (11.7-14.9)
== END 2023-05-04 18:00 | disposition home or self-care (01) ==
LOC: LAB 14:34
PROVIDERS: Family Provider Nurse Practitioner; PCP Nurse Practitioner Family; Referring Provider Nurse Practitioner Family; Visit Provider Nurse Practitioner Family
DX: Z86.718 Personal history of other venous thrombosis and embolism (principal)
CPT/HCPCS: 36415; 85610

== ENCOUNTER 2023-05-31 09:56 | Outpatient (RCR) | payer MEDICARE, SELFPAY ==
[2023-05-05 23:17] VITALS: BMI 21.0
[2023-05-11 11:54] LABS: International Normalized Ratio 2.7; Prothrombin Time (Protime)PT. 29.2 SECONDS (11.7-14.9)
[2023-05-18 14:35] LABS: International Normalized Ratio 2.4; Prothrombin Time (Protime)PT. 26.4 SECONDS (11.7-14.9)
[2023-05-31 11:37] LABS: International Normalized Ratio 2.9
== END 2023-06-03 18:00 | disposition home or self-care (01) ==
LOC: LAB 09:56
PROVIDERS: Family Provider Nurse Practitioner; PCP Nurse Practitioner Family; Referring Provider Nurse Practitioner Family; Visit Provider Nurse Practitioner Family
DX: Z86.718 Personal history of other venous thrombosis and embolism (principal)
CPT/HCPCS: 36415; 85610

== ENCOUNTER 2023-06-16 13:11 | Outpatient (RCR) | payer MEDICARE, SELFPAY ==
[2023-06-03 23:56] VITALS: BMI 21.0
[2023-06-16 13:49] LABS: Anion Gap 7 (5-15); BUN 19 mg/dL (7-18); BUN/Creat Ratio 24.9 RATIO (10-20); Calcium,Total 9.3 mg/dL (8.5-10.1); Chloride 108 mmol/L (98-107); Creatinine, Serum 0.76 mg/dL (0.55-1.02); EST Glomerular Filtration Rate 79 mL/min (>60); Est Glom Filt Rate - Afr Amer 96 mL/min (>60); Glucose 97 mg/dL (74-106); Potassium 3.8 mmol/L (3.5-5.1); Sodium Level 143 mmol/L (136-145)
[2023-06-16 13:51] LABS: International Normalized Ratio 2.8
== END 2023-07-04 01:04 | disposition home or self-care (01) ==
LOC: LAB 13:11
PROVIDERS: Family Provider Nurse Practitioner; PCP Nurse Practitioner Family; Referring Provider Nurse Practitioner Family; Visit Provider Nurse Practitioner Family
DX: Z86.718 Personal history of other venous thrombosis and embolism (principal); I10 Essential (primary) hypertension
CPT/HCPCS: 36415; 80048; 85610

== ENCOUNTER 2023-07-28 10:54 | Outpatient (RCR) | payer MEDICARE, SELFPAY ==
[2023-07-04 01:04] VITALS: BMI 21.0
[2023-07-23 10:01] LABS: International Normalized Ratio 3.9; Prothrombin Time (Protime)PT. 37.8 SECONDS (11.7-14.9)
[2023-07-28 11:29] LABS: International Normalized Ratio 1.4; Prothrombin Time (Protime)PT. 17.1 SECONDS (11.7-14.9)
== END 2023-08-03 23:15 | disposition home or self-care (01) ==
LOC: LAB 10:54
PROVIDERS: Family Provider Nurse Practitioner; PCP Nurse Practitioner Family; Referring Provider Nurse Practitioner Family; Visit Provider Nurse Practitioner Family
DX: Z86.718 Personal history of other venous thrombosis and embolism (principal)
CPT/HCPCS: 36415; 85610

== ENCOUNTER 2023-08-18 08:19 | Outpatient (RCR) | payer MEDICARE, SELFPAY ==
[2023-08-03 23:16] VITALS: BMI 21.0
[2023-08-04 14:36] LABS: International Normalized Ratio 1.5; Prothrombin Time (Protime)PT. 17.6 SECONDS (11.7-14.9)
[2023-08-11 09:08] LABS: International Normalized Ratio 2.3
[2023-08-18 09:50] LABS: International Normalized Ratio 1.9; Prothrombin Time (Protime)PT. 21.6 SECONDS (11.7-14.9)
[2023-08-25 12:34] LABS: International Normalized Ratio 2.1; Prothrombin Time (Protime)PT. 23.2 SECONDS (11.7-14.9)
== END 2023-08-31 18:00 | disposition home or self-care (01) ==
LOC: LAB 08:19
PROVIDERS: Family Provider Nurse Practitioner; PCP Nurse Practitioner Family; Referring Provider Nurse Practitioner Family; Visit Provider Nurse Practitioner Family
DX: Z86.718 Personal history of other venous thrombosis and embolism (principal)
CPT/HCPCS: 36415; 85610

== ENCOUNTER → 2023-09-01 | Outpatient (CLI) | payer MEDICARE, SELFPAY ==
[2023-09-01 12:48] LABS: International Normalized Ratio 3.2; Prothrombin Time (Protime)PT. 32.7 SECONDS (11.7-14.9)
== END | disposition home or self-care (01) ==
LOC: LAB 10:37
PROVIDERS: PCP Nurse Practitioner Family; Referring Provider Internal Medicine; Visit Provider Internal Medicine
DX: Z79.01 Long term (current) use of anticoagulants (principal)
CPT/HCPCS: 36415; 85610

== ENCOUNTER 2023-09-27 11:46 | Outpatient (RCR) | payer MEDICARE, SELFPAY ==
[2023-09-06 09:31] VITALS: BMI 21.0
[2023-09-08 12:40] LABS: International Normalized Ratio 1.8; Prothrombin Time (Protime)PT. 20.5 SECONDS (11.7-14.9)
[2023-09-13 16:26] LABS: International Normalized Ratio 1.6; Prothrombin Time (Protime)PT. 19.1 SECONDS (11.7-14.9)
[2023-09-20 17:50] LABS: International Normalized Ratio 1.3; Prothrombin Time (Protime)PT. 16.4 SECONDS (11.7-14.9)
[2023-09-27 12:26] LABS: International Normalized Ratio 1.9; Prothrombin Time (Protime)PT. 21.3 SECONDS (11.7-14.9)
== END 2023-09-27 18:00 | disposition home or self-care (01) ==
LOC: LAB 11:46
PROVIDERS: Family Provider Nurse Practitioner; PCP Nurse Practitioner Family; Referring Provider Nurse Practitioner Family; Visit Provider Nurse Practitioner Family
DX: Z86.718 Personal history of other venous thrombosis and embolism (principal)
CPT/HCPCS: 36415; 85610

== ENCOUNTER → 2023-09-29 | Outpatient (CLI) | payer MEDICARE, SELFPAY ==
--- NOTE | 2023-09-29 13:28 | BI_ITS ---
MAMMOGRAPHY - BILATERAL SCREENING REASON FOR EXAM: Female, 73 years old. Routine annual screening examination. PERTINENT HISTORY: Non-contributory. TECHNIQUE: Digital bilateral breast onofre (3D mammographic acquisition) in the CC and MLO projections. 2-D mediolateral oblique (MLO) and craniocaudad (CC) views of both breasts were obtained. CAD: Full Field Digital Mammography with Computer Added Detection was performed. COMPARISON: Comparison is made with prior study dated July 30, 2022 and April 03, 2021. FINDINGS: Breast Composition: There are scattered areas of fibroglandular density. There are no dominant masses or suspicious calcifications. Stable bilateral secretory calcifications. No other significant abnormalities are identified. There has been no significant change since the prior study. BI/SCRN MAMM (CAD)W/ONOFRE BILAT IMPRESSION: Stable bilateral screening mammogram. Yearly follow-up mammogram recommended. (A) ASSESSMENT CATEGORY: BIRADS Category 2: Benign. A letter regarding these results will be sent to the patient by the facility within 30 days. Approximately 10% of breast cancers are not detected by mammography. A normal mammogram should not delay biopsy of a clinically suspicious abnormality. [id number] Electronically Signed: Cole Coronado MD at 7:54 EDT ,
== END | disposition home or self-care (01) ==
LOC: OPBI 13:28
PROVIDERS: PCP Nurse Practitioner Family; Referring Provider Nurse Practitioner Family; Visit Provider Nurse Practitioner Family
DX: Z12.31 Encounter for screening mammogram for malignant neoplasm of breast (principal)
CPT/HCPCS: 77063; 77067

== ENCOUNTER 2023-11-02 06:43 | Outpatient (RCR) | payer MEDICARE, SELFPAY ==
[2023-10-04 03:29] VITALS: BMI 21.0
[2023-10-04 08:41] LABS: International Normalized Ratio 1.8; Prothrombin Time (Protime)PT. 20.9 SECONDS (11.7-14.9)
[2023-10-12 06:40] LABS: Absolute Lymphocyte Count 2.11 X10^3/uL (0.83-4.51); Absolute Neutrophil Count 1.2 X10^3/uL (2.0-7.7); Basophil# 0.06 X10^3/uL; Basophil% 1.5 % (0-1); Hematocrit 40.6 % (37-47); Hemoglobin 14.4 g/dL (12.0-15.0); Lymphocyte # 2.11 X10^3/ul (0.83-4.51); Lymphocyte % 52.2 % (19-41); Mean Corp Hgb Conc 35.5 g/dL (32-36); Mean Corpuscular Hgb 33.7 pg (27.0-32.0); Mean Corpuscular Volume 95.1 fL (81-99); Mean Platelet Vol. 10.3 fl (6.2-12.0); Monocyte# 0.44 X10^3/uL; Monocyte% 10.9 % (0-10); NRBC Flagged by Analyzer 0 % (0-5); Neutrophil # 1.22 X10^3/uL (2.7-7.7); Neutrophil % 30.2 % (47-70); Platelet Count 223 K/mm3 (150-450); RBC Distribution Width CV 12.1 % (11.6-14.6); RBC Distribution Width SD 42.1 fl (35.1-43.9); Red Blood Count 4.27 M/mm3 (4.2-5.4)
[2023-10-12 06:55] LABS: International Normalized Ratio 2.6; Prothrombin Time (Protime)PT. 27.7 SECONDS (11.7-14.9)
[2023-10-12 07:31] LABS: ALB/GLOB Ratio 1.4 RATIO (0.9-2.4); AST(SGOT) 19 U/L (15-37); Alanine Aminotransfer ALT/SGPT 26 U/L (13-56); Albumin, Serum 3.8 g/dL (3.2-5.0); Alkaline Phosphatase 62 U/L (45-117); Anion Gap 6 (5-15); BUN 16 mg/dL (7-18); CRP < 2.90 mg/L (0.0-3.0); Calcium,Total 9.2 mg/dL (8.5-10.1); Chloride 106 mmol/L (98-107); Cholesterol 256 mg/dL (200); EST Glomerular Filtration Rate 88 mL/min (>60); Est Glom Filt Rate - Afr Amer 106 mL/min (>60); Globulin 2.7 g/dL (2.2-4.2); Glucose 88 mg/dL (74-106); High Density Lipoprotein 89 mg/dL; Potassium 3.5 mmol/L (3.5-5.1); Protein, Total 6.5 g/dL (6.4-8.2); Sodium Level 141 mmol/L (136-145); Thyroid Stim Hormone (TSH) 3.37 uIU/mL (0.358-3.74); Triglycerides 81 mg/dL; Very Low Density Lipoprotein 16 mg/dL (5-40)
[2023-10-12 08:04] LABS: Vitamin B12 596 pg/mL (211-911)
[2023-10-14 12:09] LABS: Vitamin D 1,25-Dihydroxy 31.9 pg/mL (24.8-81.5)
[2023-10-26 07:37] LABS: International Normalized Ratio 2.1; Prothrombin Time (Protime)PT. 23.8 SECONDS (11.7-14.9)
[2023-11-02 08:19] LABS: International Normalized Ratio 3.2; Prothrombin Time (Protime)PT. 32.3 SECONDS (11.7-14.9)
== END 2023-11-03 18:00 | disposition home or self-care (01) ==
LOC: LAB 06:43
PROVIDERS: Family Provider Nurse Practitioner; PCP Nurse Practitioner Family; Referring Provider Nurse Practitioner Family; Visit Provider Nurse Practitioner Family
DX: Z86.718 Personal history of other venous thrombosis and embolism (principal); Z79.01 Long term (current) use of anticoagulants; R79.89 Other specified abnormal findings of blood chemistry; R74.8 Abnormal levels of other serum enzymes; A69.20 Lyme disease, unspecified; E67.3 Hypervitaminosis D; E78.5 Hyperlipidemia, unspecified
CPT/HCPCS: 36415; 80053; 80061; 82607; 82652; 82746; 84443; 85025; 85610; 86140

== ENCOUNTER 2023-12-03 06:10 | Outpatient (RCR) | payer MEDICARE, SELFPAY ==
[2023-11-03 22:14] VITALS: BMI 21.0
[2023-11-08 11:27] LABS: Prothrombin Time (Protime)PT. 22.3 SECONDS (11.7-14.9)
[2023-11-15 10:13] LABS: International Normalized Ratio 1.7; Prothrombin Time (Protime)PT. 20.3 SECONDS (11.7-14.9)
[2023-11-19 07:01] LABS: International Normalized Ratio 2.4
[2023-11-26 09:12] LABS: International Normalized Ratio 2.2; Prothrombin Time (Protime)PT. 24.2 SECONDS (11.7-14.9)
[2023-12-03 07:03] LABS: International Normalized Ratio 2.3; Prothrombin Time (Protime)PT. 25.6 SECONDS (11.7-14.9)
== END 2023-12-03 18:00 | disposition home or self-care (01) ==
LOC: LAB 06:10
PROVIDERS: Family Provider Nurse Practitioner; PCP Nurse Practitioner Family; Referring Provider Nurse Practitioner Family; Visit Provider Nurse Practitioner Family
DX: Z86.718 Personal history of other venous thrombosis and embolism (principal)
CPT/HCPCS: 36415; 85610

== ENCOUNTER 2024-01-03 06:07 | Outpatient (RCR) | payer MEDICARE, SELFPAY ==
[2023-12-05 04:36] VITALS: BMI 21.0
[2023-12-10 07:02] LABS: International Normalized Ratio 2.1; Prothrombin Time (Protime)PT. 23.3 SECONDS (11.7-14.9)
[2023-12-24 08:39] LABS: International Normalized Ratio 2.9
[2023-12-31 07:11] LABS: Prothrombin Time (Protime)PT. 39.9 SECONDS (11.7-14.9)
[2023-12-31 08:07] LABS: International Normalized Ratio 4.2
[2024-01-03 06:48] LABS: International Normalized Ratio 2.2; Prothrombin Time (Protime)PT. 24.4 SECONDS (11.7-14.9)
== END 2024-01-03 18:00 | disposition home or self-care (01) ==
LOC: LAB 06:07
PROVIDERS: PCP Nurse Practitioner Family; Referring Provider Nurse Practitioner Family; Visit Provider Nurse Practitioner Family
DX: Z86.718 Personal history of other venous thrombosis and embolism (principal)
CPT/HCPCS: 36415; 85610

== ENCOUNTER 2024-01-28 05:58 | Outpatient (RCR) | payer MEDICARE, SELFPAY ==
[2024-01-04 04:21] VITALS: BMI 21.0
[2024-01-10 09:52] LABS: International Normalized Ratio 3.2; Prothrombin Time (Protime)PT. 32.2 SECONDS (11.7-14.9)
[2024-01-18 06:31] LABS: Prothrombin Time (Protime)PT. 48.5 SECONDS (11.7-14.9)
[2024-01-18 06:49] LABS: International Normalized Ratio 5.4
[2024-01-19 07:11] LABS: International Normalized Ratio 3.7; Prothrombin Time (Protime)PT. 36.1 SECONDS (11.7-14.9)
[2024-01-21 07:11] LABS: International Normalized Ratio 2.9; Prothrombin Time (Protime)PT. 29.7 SECONDS (11.7-14.9)
[2024-01-28 06:33] LABS: International Normalized Ratio 2.8; Prothrombin Time (Protime)PT. 29.3 SECONDS (11.7-14.9)
== END 2024-01-28 18:00 | disposition home or self-care (01) ==
LOC: LAB 05:58
PROVIDERS: PCP Nurse Practitioner Family; Referring Provider Nurse Practitioner Family; Visit Provider Nurse Practitioner Family
DX: Z79.01 Long term (current) use of anticoagulants
CPT/HCPCS: 36415; 85610

== ENCOUNTER 2024-02-29 05:52 | Outpatient (RCR) | payer MEDICARE, SELFPAY ==
[2024-02-03 20:41] VITALS: BMI 21.0
[2024-02-07 07:50] LABS: International Normalized Ratio 2.5; Prothrombin Time (Protime)PT. 26.6 SECONDS (11.7-14.9)
[2024-02-14 07:00] LABS: Prothrombin Time (Protime)PT. 31.2 SECONDS (11.7-14.9)
[2024-02-21 06:59] LABS: Prothrombin Time (Protime)PT. 42.5 SECONDS (11.7-14.9)
[2024-02-21 08:18] LABS: International Normalized Ratio 4.5
[2024-02-23 06:57] LABS: International Normalized Ratio 2.4
[2024-02-29 06:40] LABS: International Normalized Ratio 2.4; Prothrombin Time (Protime)PT. 26.2 SECONDS (11.7-14.9)
== END 2024-03-04 18:00 | disposition home or self-care (01) ==
LOC: LAB 05:52
PROVIDERS: PCP Nurse Practitioner Family; Referring Provider Nurse Practitioner Family; Visit Provider Nurse Practitioner Family
DX: Z86.718 Personal history of other venous thrombosis and embolism (principal); Z79.01 Long term (current) use of anticoagulants
CPT/HCPCS: 36415; 85610

== ENCOUNTER 2024-04-04 09:45 | Outpatient (RCR) | payer MEDICARE, SELFPAY ==
[2024-03-04 23:58] VITALS: BMI 21.0
[2024-03-07 06:47] LABS: International Normalized Ratio 1.9; Prothrombin Time (Protime)PT. 21.8 SECONDS (11.7-14.9)
[2024-03-14 07:09] LABS: International Normalized Ratio 1.9; Prothrombin Time (Protime)PT. 21.6 SECONDS (11.7-14.9)
[2024-03-21 07:32] LABS: International Normalized Ratio 1.6
[2024-03-27 07:21] LABS: International Normalized Ratio 2.4; Prothrombin Time (Protime)PT. 26.3 SECONDS (11.7-14.9)
[2024-04-04 10:40] LABS: International Normalized Ratio 1.5; Prothrombin Time (Protime)PT. 18.6 SECONDS (11.7-14.9)
== END 2024-04-04 18:00 | disposition home or self-care (01) ==
LOC: LAB 09:45
PROVIDERS: Internal Medicine; PCP Nurse Practitioner Family; Referring Provider Nurse Practitioner Family; Visit Provider Nurse Practitioner Family
DX: Z86.718 Personal history of other venous thrombosis and embolism (principal)
CPT/HCPCS: 36415; 85610

== ENCOUNTER 2024-05-01 07:28 | Outpatient (RCR) | payer MEDICARE, SELFPAY ==
[2024-04-05 04:36] VITALS: BMI 21.0
[2024-04-07 09:20] LABS: International Normalized Ratio 1.4
[2024-04-17 11:52] LABS: International Normalized Ratio 2.2; Prothrombin Time (Protime)PT. 25.2 SECONDS (11.7-14.9)
[2024-04-24 17:02] LABS: International Normalized Ratio 2.2; Prothrombin Time (Protime)PT. 25.1 SECONDS (11.7-14.9)
[2024-05-01 08:37] LABS: International Normalized Ratio 3.3; Prothrombin Time (Protime)PT. 34.2 SECONDS (11.7-14.9)
== END 2024-05-01 18:00 | disposition home or self-care (01) ==
LOC: LAB 07:28
PROVIDERS: PCP Nurse Practitioner Family; Referring Provider Nurse Practitioner Family; Visit Provider Nurse Practitioner Family
DX: Z86.718 Personal history of other venous thrombosis and embolism (principal); Z79.01 Long term (current) use of anticoagulants
CPT/HCPCS: 36415; 85610

== ENCOUNTER 2024-05-29 05:44 | Outpatient (RCR) | payer MEDICARE, SELFPAY ==
[2024-05-06 02:53] VITALS: BMI 21.0
[2024-05-08 06:38] LABS: Hematocrit 41.1 % (37-47); Hemoglobin 14.4 g/dL (12.0-15.0); Mean Corpuscular Volume 94.1 fL (81-99); Mean Platelet Vol. 10.2 fl (6.2-12.0); Platelet Count 225 K/mm3 (150-450); RBC Distribution Width CV 11.9 % (11.6-14.6); RBC Distribution Width SD 41.3 fl (35.1-43.9); Red Blood Count 4.37 M/mm3 (4.2-5.4)
[2024-05-08 07:19] LABS: International Normalized Ratio 2.1; Prothrombin Time (Protime)PT. 23.9 SECONDS (11.7-14.9)
[2024-05-08 08:23] LABS: ALB/GLOB Ratio 1.4 RATIO (0.9-2.4); AST(SGOT) 16 U/L (15-37); Alanine Aminotransfer ALT/SGPT 23 U/L (13-56); Alkaline Phosphatase 61 U/L (45-117); Anion Gap 8 (5-15); BUN 16 mg/dL (7-18); BUN/Creat Ratio 22.2 RATIO (10-20); Calcium,Total 9.1 mg/dL (8.5-10.1); Chloride 105 mmol/L (98-107); Cholesterol 258 mg/dL (200); Creatinine, Serum 0.72 mg/dL (0.55-1.02); EST Glomerular Filtration Rate 84 mL/min (>60); Est Glom Filt Rate - Afr Amer 102 mL/min (>60); Globulin 2.9 g/dL (2.2-4.2); Glucose 88 mg/dL (74-106); High Density Lipoprotein 84 mg/dL; Potassium 3.4 mmol/L (3.5-5.1); Protein, Total 6.9 g/dL (6.4-8.2); Sodium Level 140 mmol/L (136-145); Triglycerides 77 mg/dL; Very Low Density Lipoprotein 15 mg/dL (5-40)
[2024-05-08 11:39] LABS: Color, Urine Yellow (Yellow); Glucose, Dipstick Normal (Normal); Ketone-Dipstick 15 mg/dl (Negative); Leukocyte Esterase-Dipstick 500 /ul (Negative); Nitrite-Dipstick Negative (Negative); Occult Blood-Urine Negative /ul (Negative); Protein-Dipstick Negative (Negative); Specific Gravity, Urine 1.015 (1.002-1.030); Urine Bilirubin Dipstick Negative (Negative); Urine Clarity Clear (Clear); Urine Urobilinogen Normal (Normal)
[2024-05-08 13:19] LABS: Microalbumin,Random Urine 21.2 mg/L (NO RANGE EST.); Microalbumin:Creatinine Ratio 32.4 mg/g CRE (<30 mg/g CRE)
[2024-05-09 06:51] LABS: Absolute Lymphocyte Count 1.86 X10^3/uL (0.83-4.51); Absolute Neutrophil Count 1.3 X10^3/uL (2.0-7.7); Basophil# 0.07 X10^3/uL; Basophil% 1.8 % (0-1); Eosinophil# 0.19 X10^3/uL; Eosinophils% 4.9 % (0-5); Lymphocyte # 1.86 X10^3/ul (0.83-4.51); Lymphocyte % 47.8 % (19-41); Monocyte# 0.43 X10^3/uL; Monocyte% 11.1 % (0-10); NRBC Flagged by Analyzer 0 % (0-5); Neutrophil # 1.33 X10^3/uL (2.7-7.7); Neutrophil % 34.1 % (47-70)
[2024-05-18 16:07] LABS: International Normalized Ratio 2.6; Prothrombin Time (Protime)PT. 28.4 SECONDS (11.7-14.9)
[2024-05-25 13:19] LABS: International Normalized Ratio 1.7; Prothrombin Time (Protime)PT. 20.4 SECONDS (11.7-14.9)
[2024-05-29 06:56] LABS: International Normalized Ratio 1.7; Prothrombin Time (Protime)PT. 20.5 SECONDS (11.7-14.9)
== END 2024-06-02 18:00 | disposition home or self-care (01) ==
LOC: LAB 05:44
PROVIDERS: PCP Nurse Practitioner Family; Referring Provider Nurse Practitioner Family; Visit Provider Nurse Practitioner Family
DX: Z86.718 Personal history of other venous thrombosis and embolism (principal); E78.5 Hyperlipidemia, unspecified; I10 Essential (primary) hypertension
CPT/HCPCS: 36415; 80053; 80061; 81002; 82043; 82570; 84443; 85025; 85027; 85610

== ENCOUNTER 2024-06-30 08:02 | Outpatient (RCR) | payer MEDICARE, SELFPAY ==
[2024-06-03 05:07] VITALS: BMI 21.0
[2024-06-21 09:24] LABS: International Normalized Ratio 3.2; Prothrombin Time (Protime)PT. 33.3 SECONDS (11.7-14.9)
[2024-06-28 09:22] LABS: International Normalized Ratio 3.6; Prothrombin Time (Protime)PT. 36.5 SECONDS (11.7-14.9)
[2024-06-30 08:52] LABS: International Normalized Ratio 2.2; Prothrombin Time (Protime)PT. 25.1 SECONDS (11.7-14.9)
== END 2024-06-30 18:00 | disposition home or self-care (01) ==
LOC: LAB 08:02
PROVIDERS: PCP Nurse Practitioner Family; Referring Provider Nurse Practitioner Family; Visit Provider Nurse Practitioner Family
DX: Z79.01 Long term (current) use of anticoagulants (principal)
CPT/HCPCS: 36415; 85610

== ENCOUNTER 2024-08-02 05:46 | Outpatient (RCR) | payer MEDICARE, SELFPAY ==
[2024-07-03 22:33] VITALS: BMI 21.0
[2024-07-04 09:49] LABS: International Normalized Ratio 1.9; Prothrombin Time (Protime)PT. 21.8 SECONDS (11.7-14.9)
[2024-07-11 06:33] LABS: Absolute Lymphocyte Count 1.57 X10^3/uL (0.83-4.51); Absolute Neutrophil Count 1.3 X10^3/uL (2.0-7.7); Basophil# 0.06 X10^3/uL; Basophil% 1.7 % (0-1); Eosinophil# 0.14 X10^3/uL; Hematocrit 38.7 % (37-47); Hemoglobin 13.7 g/dL (12.0-15.0); Lymphocyte # 1.57 X10^3/ul (0.83-4.51); Lymphocyte % 44.4 % (19-41); Mean Corp Hgb Conc 35.4 g/dL (32-36); Mean Corpuscular Hgb 33.6 pg (27.0-32.0); Mean Corpuscular Volume 94.9 fL (81-99); Mean Platelet Vol. 10.4 fl (6.2-12.0); Monocyte% 14.1 % (0-10); NRBC Flagged by Analyzer 0 % (0-5); Neutrophil # 1.26 X10^3/uL (2.7-7.7); Neutrophil % 35.5 % (47-70); Platelet Count 217 K/mm3 (150-450); RBC Distribution Width CV 12.1 % (11.6-14.6); RBC Distribution Width SD 42.5 fl (35.1-43.9); Red Blood Count 4.08 M/mm3 (4.2-5.4); White Blood Count 3.5 K/mm3 (4.4-11.0)
[2024-07-11 06:46] LABS: Prothrombin Time (Protime)PT. 31.7 SECONDS (11.7-14.9)
[2024-07-11 07:06] LABS: AST(SGOT) 16 U/L (<=31); Alanine Aminotransfer ALT/SGPT 12 U/L (<=34); Albumin, Serum 4.2 g/dL (3.4-4.8); Alkaline Phosphatase 64 U/L (35-104); Anion Gap 10 (5-15); BUN 24 mg/dL (4-19); BUN/Creat Ratio 34.6 RATIO (10-20); Calcium,Total 9.5 mg/dL (7.6-11.0); Carbon Dioxide 28.8 mmol/L (21.0-32.0); Chloride 102 mmol/L (98-108); Creatinine, Serum 0.69 mg/dL (0.70-1.20); EST Glomerular Filtration Rate 91 (>60); Globulin 2.2 g/dL (2.2-4.2); Glucose 89 mg/dL (70-99); Potassium 3.9 mmol/L (3.3-5.1); Protein, Total 6.4 g/dL (5.9-8.4); Sodium Level 141 mmol/L (133-145); Total Bilirubin 0.52 mg/dL (0.00-1.30)
[2024-07-14 06:52] LABS: International Normalized Ratio 2.1; Prothrombin Time (Protime)PT. 23.9 SECONDS (11.7-14.9)
[2024-07-19 11:20] LABS: International Normalized Ratio 2.1; Prothrombin Time (Protime)PT. 24.4 SECONDS (11.7-14.9)
[2024-07-19 11:29] LABS: Magnesium 2.2 mg/dL (1.5-2.2); Phosphorus 3.3 mg/dL (2.7-4.5)
[2024-07-26 06:52] LABS: International Normalized Ratio 2.3; Prothrombin Time (Protime)PT. 25.7 SECONDS (11.7-14.9)
[2024-08-02 07:03] LABS: International Normalized Ratio 2.2; Prothrombin Time (Protime)PT. 24.7 SECONDS (11.7-14.9)
== END 2024-08-02 18:00 | disposition home or self-care (01) ==
LOC: LAB 05:46
PROVIDERS: PCP Nurse Practitioner Family; Referring Provider Nurse Practitioner Family; Visit Provider Nurse Practitioner Family
DX: Z79.01 Long term (current) use of anticoagulants; E78.5 Hyperlipidemia, unspecified
CPT/HCPCS: 36415; 80053; 83735; 84100; 85025; 85610

== ENCOUNTER 2024-08-30 05:45 | Outpatient (RCR) | payer MEDICARE, SELFPAY ==
[2024-08-02 21:49] VITALS: BMI 21.0
[2024-08-09 07:02] LABS: International Normalized Ratio 2.1
[2024-08-16 06:51] LABS: International Normalized Ratio 2.1; Prothrombin Time (Protime)PT. 23.9 SECONDS (11.7-14.9)
[2024-08-23 06:42] LABS: International Normalized Ratio 1.9; Prothrombin Time (Protime)PT. 22.1 SECONDS (11.7-14.9)
[2024-08-30 08:37] LABS: International Normalized Ratio 2.8; Prothrombin Time (Protime)PT. 30.4 SECONDS (11.7-14.9)
== END 2024-08-30 18:00 | disposition home or self-care (01) ==
LOC: LAB 05:45
PROVIDERS: PCP Nurse Practitioner Family; Referring Provider Nurse Practitioner Family; Visit Provider Nurse Practitioner Family
DX: Z86.718 Personal history of other venous thrombosis and embolism (principal); Z79.01 Long term (current) use of anticoagulants
CPT/HCPCS: 36415; 85610

== ENCOUNTER 2024-09-27 05:39 | Outpatient (RCR) | payer MEDICARE, SELFPAY ==
[2024-09-03 18:56] VITALS: BMI 21.0
[2024-09-13 06:45] LABS: International Normalized Ratio 2.3; Prothrombin Time (Protime)PT. 26.1 SECONDS (11.7-14.9)
[2024-09-20 07:47] LABS: International Normalized Ratio 2.3; Prothrombin Time (Protime)PT. 25.5 SECONDS (11.7-14.9)
[2024-09-27 06:51] LABS: Prothrombin Time (Protime)PT. 31.6 SECONDS (11.7-14.9)
== END 2024-09-27 18:00 | disposition home or self-care (01) ==
LOC: LAB 05:39
PROVIDERS: PCP Nurse Practitioner Family; Referring Provider Nurse Practitioner Family; Visit Provider Nurse Practitioner Family
DX: Z86.718 Personal history of other venous thrombosis and embolism
CPT/HCPCS: 36415; 85610

== ENCOUNTER → 2024-10-03 | Outpatient (CLI) | payer MEDICARE, SELFPAY ==
--- NOTE | 2024-10-03 14:44 | BI_ITS ---
EXAM: SCRN MAMM (CAD)W/ONOFRE BILAT DATE: 10/03/2024 CLINICAL HISTORY: F, Age 74 y/o , SCREENING FOR BREAST CA TECHNIQUE: SCRN MAMM (CAD)W/ONOFRE BILAT COMPARISON: Prior exam(s) were compared FINDINGS: TISSUE DENSITY: The breasts are heterogeneously dense, which may obscure small masses. Bilateral Breast Mammographic Findings: No significant masses, calcifications or other abnormalities are identified. BI/SCRN MAMM (CAD)W/ONOFRE BILAT IMPRESSION: No mammographic evidence of malignancy in either breast. OVERALL FINAL ASSESSMENT BI-RADS 1: NEGATIVE. RECOMMEND ANNUAL MAMMOGRAPHIC SCREENING. RECOMMENDATION: Routine annual follow-up in 1 Year A letter with findings and recommendations will be mailed to the patient. Reading Location: [id number]
--- NOTE | 2024-10-03 14:52 | BD_ITS ---
PROCEDURE: DEXA BONE DENSITY STUDY 10/03/2024 REASON FOR EXAM: F, age 74 y/o . TECHNIQUE: DEXA BONE DENSITY STUDY COMPARISON: DEXA scan on 07/30/2022 FINDINGS: BMD and T-SCORES Lumbar spine: 0.878 g/cm2, T-score -1.3 Levels: L1 through L3 Change from prior: Statistically significant BMD increase of 6.5%. Left femoral neck: 0.477 g/cm2, T-score -3.4 Femoral neck comparison data not recommended for monitoring change. Prior T-score -3.7 Left total hip: 0.580 g/cm2, T-score -3.0 Change from prior: Statistically significant BMD increase of 8.3%. Right femoral neck: 0.532 g/cm2, T-score -2.9 Femoral neck comparison data not recommended for monitoring change. Prior T-score -2.6 Right total hip: 0.594 g/cm2, T-score -2.9 Change from prior: No significant change in BMD.. The World Health Organization has defined the following categories based on bone density: Normal bone density: T-score equal to or greater than -1.0 Osteopenia: T-score between -1.0 and -2.5 Osteoporosis: T-score equal to or less than -2.5 BD/Dexa Bone Density Study IMPRESSION: OSTEOPOROSIS. Reading Location: [id number]
== END | disposition home or self-care (01) ==
LOC: OPBI 14:43
PROVIDERS: PCP Nurse Practitioner Family; Referring Provider Nurse Practitioner Family; Visit Provider Nurse Practitioner Family
DX: Z12.31 Encounter for screening mammogram for malignant neoplasm of breast (principal); Z13.820 Encounter for screening for osteoporosis; N95.9 Unspecified menopausal and perimenopausal disorder
CPT/HCPCS: 77063; 77067; 77080

== ENCOUNTER 2024-11-01 05:40 | Outpatient (RCR) | payer MEDICARE, SELFPAY ==
[2024-10-04 07:20] LABS: Prothrombin Time (Protime)PT. 29.7 SECONDS (11.7-14.9)
[2024-10-11 07:33] LABS: Prothrombin Time (Protime)PT. 23.4 SECONDS (11.7-14.9)
[2024-10-18 06:42] LABS: Prothrombin Time (Protime)PT. 19.1 SECONDS (11.7-14.9)
[2024-10-25 07:15] LABS: Prothrombin Time (Protime)PT. 27.1 SECONDS (11.7-14.9)
[2024-11-01 07:44] LABS: Prothrombin Time (Protime)PT. 21.3 SECONDS (11.7-14.9)
== END 2024-11-02 21:17 | disposition home or self-care (01) ==
LOC: LAB 05:40
PROVIDERS: PCP Nurse Practitioner Family; Referring Provider Nurse Practitioner Family; Visit Provider Nurse Practitioner Family
DX: Z86.718 Personal history of other venous thrombosis and embolism
CPT/HCPCS: 36415; 85610

== ENCOUNTER 2024-11-27 05:42 | Outpatient (RCR) | payer MEDICARE, SELFPAY ==
[2024-11-06 07:09] LABS: Prothrombin Time (Protime)PT. 30.0 SECONDS (11.7-14.9)
[2024-11-13 06:58] LABS: Prothrombin Time (Protime)PT. 30.5 SECONDS (11.7-14.9)
[2024-11-20 06:36] LABS: Prothrombin Time (Protime)PT. 28.6 SECONDS (11.7-14.9)
[2024-11-27 07:54] LABS: Prothrombin Time (Protime)PT. 29.1 SECONDS (11.7-14.9)
== END 2024-11-27 18:00 | disposition home or self-care (01) ==
LOC: LAB 05:42
PROVIDERS: PCP Nurse Practitioner Family; Referring Provider Nurse Practitioner Family; Visit Provider Nurse Practitioner Family
DX: Z86.718 Personal history of other venous thrombosis and embolism
CPT/HCPCS: 36415; 85610

== ENCOUNTER → 2024-12-01 | Outpatient (CLI) | payer MEDICARE, SELFPAY ==
[2024-12-01 09:10] LABS: Hematocrit 39.8 % (37-47); Hemoglobin 14.2 g/dL (12.0-15.0); Immature Granulocytes Count 0.010 X10^3/uL (0.0-0.0); Mean Corp Hgb Conc 35.7 g/dL (32-36); Mean Corpuscular Volume 93.4 fL (81-99); Mean Platelet Vol. 9.9 fl (6.2-12.0); NRBC Flagged by Analyzer 0 % (0-5); Platelet Count 213 K/mm3 (150-450); RBC Distribution Width CV 12.3 % (11.6-14.6); RBC Distribution Width SD 42.0 fl (35.1-43.9); Red Blood Count 4.26 M/mm3 (4.2-5.4); White Blood Count 3.3 K/mm3 (4.4-11.0)
[2024-12-01 10:12] LABS: Cholesterol 300 mg/dL (<=200); Low Density Lipoprotein Calc. 199 mg/dL; Triglycerides 55 mg/dL; Very Low Density Lipoprotein 11 mg/dL (5-40); cholesterol:hdl ratio screen 3.33
[2024-12-04 13:07] LABS: Vitamin D 1,25-Dihydroxy 46.9 pg/mL (24.8-81.5)
[2024-12-05 07:34] LABS: Creatinine, Urine (random) 92.60 mg/dL (28.00-217.00); Microalbumin,Random Urine 13.9 mg/L (<20 mg/L)
== END | disposition home or self-care (01) ==
LOC: LAB 08:44
PROVIDERS: PCP Nurse Practitioner Family; Referring Provider Nurse Practitioner Family; Visit Provider Nurse Practitioner Family
DX: R80.9 Proteinuria, unspecified (principal); R00.2 Palpitations; E67.3 Hypervitaminosis D; E78.5 Hyperlipidemia, unspecified; I10 Essential (primary) hypertension
CPT/HCPCS: 36415; 80061; 82043; 82570; 82652; 84443; 85025

== ENCOUNTER 2025-01-01 05:40 | Outpatient (RCR) | payer MEDICARE, SELFPAY ==
[2024-12-05 07:05] LABS: Prothrombin Time (Protime)PT. 25.5 SECONDS (11.7-14.9)
[2024-12-11 07:07] LABS: Prothrombin Time (Protime)PT. 34.0 SECONDS (11.7-14.9)
[2024-12-15 06:52] LABS: Prothrombin Time (Protime)PT. 28.3 SECONDS (11.7-14.9)
[2024-12-25 08:23] LABS: Prothrombin Time (Protime)PT. 26.7 SECONDS (11.7-14.9)
[2025-01-01 08:11] LABS: Prothrombin Time (Protime)PT. 22.8 SECONDS (11.7-14.9)
== END 2025-01-02 18:00 | disposition home or self-care (01) ==
LOC: LAB 05:40
PROVIDERS: PCP Nurse Practitioner Family; Referring Provider Nurse Practitioner Family; Visit Provider Nurse Practitioner Family
DX: Z86.718 Personal history of other venous thrombosis and embolism
CPT/HCPCS: 36415; 85610

== ENCOUNTER 2025-01-22 05:40 | Outpatient (RCR) | payer MEDICARE, SELFPAY ==
[2025-01-08 07:13] LABS: Prothrombin Time (Protime)PT. 25.9 SECONDS (11.7-14.9)
[2025-01-22 08:18] LABS: Prothrombin Time (Protime)PT. 24.8 SECONDS (11.7-14.9)
== END 2025-01-22 18:00 | disposition home or self-care (01) ==
LOC: LAB 05:40
PROVIDERS: PCP Nurse Practitioner Family; Referring Provider Nurse Practitioner Family; Visit Provider Nurse Practitioner Family
DX: Z79.01 Long term (current) use of anticoagulants (principal); Z86.718 Personal history of other venous thrombosis and embolism
CPT/HCPCS: 36415; 85610

== ENCOUNTER 2025-02-19 05:47 | Outpatient (RCR) | payer MEDICARE, SELFPAY ==
[2025-02-05 06:40] LABS: Prothrombin Time (Protime)PT. 30.8 SECONDS (11.7-14.9)
[2025-02-12 07:07] LABS: Prothrombin Time (Protime)PT. 18.2 SECONDS (11.7-14.9)
[2025-02-19 07:39] LABS: Prothrombin Time (Protime)PT. 24.3 SECONDS (11.7-14.9)
== END 2025-03-04 18:00 | disposition home or self-care (01) ==
LOC: LAB 05:47
PROVIDERS: PCP Nurse Practitioner Family; Referring Provider Nurse Practitioner Family; Visit Provider Nurse Practitioner Family
DX: Z79.01 Long term (current) use of anticoagulants (principal); Z86.718 Personal history of other venous thrombosis and embolism
CPT/HCPCS: 36415; 85610

== ENCOUNTER 2025-04-02 05:45 | Outpatient (RCR) | payer MEDICARE, SELFPAY ==
[2025-03-05 06:46] LABS: Prothrombin Time (Protime)PT. 29.9 SECONDS (11.7-14.9)
[2025-03-12 06:49] LABS: Prothrombin Time (Protime)PT. 24.5 SECONDS (11.7-14.9)
[2025-03-19 07:03] LABS: Prothrombin Time (Protime)PT. 21.6 SECONDS (11.7-14.9)
[2025-03-26 06:56] LABS: Prothrombin Time (Protime)PT. 30.2 SECONDS (11.7-14.9)
[2025-04-02 07:04] LABS: Prothrombin Time (Protime)PT. 25.5 SECONDS (11.7-14.9)
== END 2025-04-02 18:00 | disposition home or self-care (01) ==
LOC: LAB 05:45
PROVIDERS: PCP Nurse Practitioner Family; Referring Provider Nurse Practitioner Family; Visit Provider Nurse Practitioner Family
DX: Z79.01 Long term (current) use of anticoagulants (principal)
CPT/HCPCS: 36415; 85610